=== PATIENT | male | born 1960 | race Caucasian/White ===

== ENCOUNTER → 2016-05-19 | Outpatient (CLI) | payer OTHER ==
[~2016-05-19] MED LIST: ACET-1311 PO; ACET325T96 PO; ADVIN25/60 INH; ASCA500 PO; ASCO500C43; ASPI81TA28 PO; BENZ100C84 PO; BISA-16 PR; CALC-191; CALC667C PO; CEFT2INJ IV; CHOL1000 PO; CHOL1TAB46 PO; CLR10 PO; DEXA2TAB PO; DOCU100C31 PO; DOXY100C76 PO; ERTA1INJ IV; FERR1TAB13 PO; GABA-112 PO; GABA-113 PO; GFNSR600 PO; INSDGI SC; IPRA1AER2 INH; LCTX PO; LIQUID PROTEIN PO; LORA-741 PO; LPT40 PO; METO25TA3 PO; MOMLX PO; MRLP17X PO; MULT-506 PO; NTRS PO; NVLG SC; NVLGI SC; OXGN; OXYC-164 PO; OXYC-787 PO; OXYC15TA89 PO; OXYC1TAB3 PO; OXYC40TA34 PO; OXYSR10 PO; POLY335019 PO; PRAV10TA39 PO; PRLSR20 PO; PROTEIN SUPPLEMENT PO; SENN-65 PO; SERT50TA PO; SNTO30 EXT; SNTONWC TOP; SODI1ENE PR; SODI1ENE RE; TAMS0.4C38 PO; VANC1INJ9 IV; [UNRECOGNIZED DRUG - CODE] PO; [UNRECOGNIZED DRUG - REMARK] PO; dulcolax suppository; liquid protein PO
[2016-05-19 13:40] LABS: MANUAL MICROSCOPIC REQUIRED? YES; URINE APPEARANCE CLOUDY (CLEAR); URINE COLOR BROWN; URINE NITRITE POS (NEG); URINE PH >= 9.0 (4.5-7.5); URINE SPECIFIC GRAVITY <= 1.005 (1.000-1.030); UROBILINOGEN NEG (NEG)
[2016-05-19 13:42] LABS: REVIEW REQ? NO
[2016-05-19 13:43] LABS: SULFASALICYLIC ACID POS (NEG); URINE BILIRUBIN NEG (NEG)
[2016-05-19 14:01] LABS: URINE BACTERIA 4+ (NEG); URINE WBC >30 /hpf (0-5)
[2016-05-19 14:02] LABS: ZZUR CULT IF INDIC CLEAN CATCH YES
== END ==
LOC: C.LABUPNIT 09:12
PROVIDERS: ATTEND Family Medicine
DX: N18.6 End stage renal disease (principal)

== ENCOUNTER → 2016-05-21 | Outpatient (CLI) | payer OTHER ==
[~2016-05-21] MED LIST changes: +[UNRECOGNIZED DRUG - CODE] PO; -[UNRECOGNIZED DRUG - CODE] PO
[2016-05-21 09:58] LABS: MANUAL MICROSCOPIC REQUIRED? YES; URINE APPEARANCE CLOUDY (CLEAR); URINE COLOR AMBER; URINE NITRITE POS (NEG); URINE PH 8.5 (4.5-7.5); UROBILINOGEN NEG (NEG)
[2016-05-21 10:05] LABS: REVIEW REQ? NO; SULFASALICYLIC ACID POS (NEG); URINE BILIRUBIN NEG (NEG)
[2016-05-21 10:56] LABS: URINE BACTERIA 4+ (NEG); URINE RBC >30 /hpf (0-4); URINE WBC >30 /hpf (0-5)
[2016-05-21 10:57] LABS: URINE GRANULAR CAST 0-3 /lpf (0); URINE HYALINE CAST 0 /lpf (0-5)
--- NOTE | 2016-05-31 09:33 | CODING QUERY NO DIAGNOSIS ---
: 1960 TREATMENT RENDERED WITHOUT A DIAGNOSIS To promote full compliance with coding requirements relating to patient care, physician participation is requested in all cases of spinner frame uncertainty. Please assist us with providing a diagnosis/symptom for the test(s) below: A diagnosis/symptom was not documented on your Order. A valid diagnosis/symptom is required to bill all insurances. Please remember that we are unable to code a diagnosis of rule out, probable, possible, questionable, or suspected. Tests that require a diagnosis: * UA CATH DOS: 05/21/16 DIAGNOSIS: * URINE CULTURE CATH DOS: 05/21/16 DIAGNOSIS: Provider Signature: Date: Thank you Kalyani Chi [facility] Information Management Once completed, please kindly fax back to [phone] For questions please call [phone]
== END | disposition home or self-care (01) ==
LOC: C.LABUPNIT 09:02
PROVIDERS: ATTEND Family Medicine
DX: G93.40 Encephalopathy, unspecified (principal)

== ENCOUNTER → 2016-05-23 | Outpatient (CLI) | payer OTHER ==
[~2016-05-23] MED LIST changes: +[UNRECOGNIZED DRUG - CODE] PO; -[UNRECOGNIZED DRUG - CODE] PO
[2016-05-23 10:23] LABS: BASO % 0.1 %; BASO ABS # 0.01 K/uL (0-0.2); COMPLETE YES; EOS % 0.3 %; HEMATOCRIT 35.4 % (42-52); IG% 0.6 %; LYMPH % 5.3 %; LYMPH ABS # 0.76 K/uL (1.2-3.4); MEAN CELL VOLUME 88.7 fL (80-100); MEAN CORPUSCULAR HEMOGLOBIN 29.1 pg (25-34); MEAN CORPUSCULAR HGB CONC 32.8 g/dl (32-36); MEAN PLATELET VOLUME 10.8 fL (7.4-10.4); MONO % 7.1 %; NEUT % 86.6 %; PLATELET COUNT 171 K/uL (130-400); RED BLOOD COUNT 3.99 M/uL (4.7-6.1); WHITE BLOOD COUNT 14.28 K/uL (4.8-10.8)
[2016-05-23 22:22] LABS: BLOOD UREA NITROGEN 48 mg/dl (7-18); BUN/CREATININE RATIO 14.1 (10-20); CALCIUM 8.9 mg/dl (8.5-10.1); CHLORIDE 96 mmol/L (98-107); GLUCOSE 79 mg/dl (70-99); POTASSIUM 4.5 mmol/L (3.5-5.1); SODIUM 135 mmol/L (136-145)
== END ==
LOC: C.LABUPNIT 09:36
PROVIDERS: ATTEND Family Medicine
DX: E11.22 Type 2 diabetes mellitus with diabetic chronic kidney disease (principal); N18.6 End stage renal disease

== ENCOUNTER → 2016-05-24 | Outpatient (CLI) | payer OTHER ==
[~2016-05-24] MED LIST changes: +[UNRECOGNIZED DRUG - CODE] PO; -[UNRECOGNIZED DRUG - CODE] PO
[2016-05-24 10:06] LABS: BASO % 0.1 %; BASO ABS # 0.01 K/uL (0-0.2); COMPLETE YES; EOS % 0.3 %; HEMATOCRIT 34.3 % (42-52); IG% 0.8 %; LYMPH % 5.4 %; LYMPH ABS # 0.84 K/uL (1.2-3.4); MEAN CELL VOLUME 88.2 fL (80-100); MEAN CORPUSCULAR HEMOGLOBIN 29.3 pg (25-34); MEAN CORPUSCULAR HGB CONC 33.2 g/dl (32-36); MEAN PLATELET VOLUME 10.2 fL (7.4-10.4); MONO % 5.9 %; NEUT % 87.5 %; PLATELET COUNT 185 K/uL (130-400); RED BLOOD COUNT 3.89 M/uL (4.7-6.1); WHITE BLOOD COUNT 15.46 K/uL (4.8-10.8)
[2016-05-24 10:17] LABS: BLOOD UREA NITROGEN 71 mg/dl (7-18); BUN/CREATININE RATIO 16.2 (10-20); CALCIUM 9.1 mg/dl (8.5-10.1); CARBON DIOXIDE 24 mmol/L (21-32); CHLORIDE 96 mmol/L (98-107); GLUCOSE 220 mg/dl (70-99); POTASSIUM 4.4 mmol/L (3.5-5.1); SODIUM 132 mmol/L (136-145)
[2016-05-24 10:21] LABS: C-REACTIVE PROTEIN 6.67 mg/dl (0-0.29)
--- NOTE | 2016-05-31 13:44 | CODING QUERY NO DIAGNOSIS ---
: 1960 TREATMENT RENDERED WITHOUT A DIAGNOSIS To promote full compliance with coding requirements relating to patient care, physician participation is requested in all cases of floor coverings installer uncertainty. Please assist us with providing a diagnosis/symptom for the test(s) below: A diagnosis/symptom was not documented on your Order. A valid diagnosis/symptom is required to bill all insurances. Please remember that we are unable to code a diagnosis of rule out, probable, possible, questionable, or suspected. Tests that require a diagnosis: * C-REACTIVE PROTEIN DOS: 05/24/16 DIAGNOSIS: * PARTIAL RENAL PROFILE DOS: 05/24/16 DIAGNOSIS: * CBC WITH AUTO DIFFER DOS: 05/24/16 DIAGNOSIS: * AMMONIA LEVEL DOS: 05/24/16 DIAGNOSIS: * LACTIC ACID DOS: 05/24/16 DIAGNOSIS: * ERYTHROCYTE SEDIMENT DOS: 05/24/16 DIAGNOSIS: Provider Signature: Date: Thank you Kalyani Chi [employer] Information Management Once completed, please kindly fax back to [phone] For questions please call [phone]
== END ==
LOC: C.LABUPNIT 09:48
PROVIDERS: ATTEND Family Medicine
DX: G93.40 Encephalopathy, unspecified (principal); L98.499 Non-pressure chronic ulcer of skin of other sites with unspecified severity

== ENCOUNTER → 2016-05-27 | Outpatient (CLI) | payer OTHER ==
[2016-05-27 10:08] LABS: MEAN CELL VOLUME 88.3 fL (80-100); MEAN CORPUSCULAR HEMOGLOBIN 28.6 pg (25-34); MEAN CORPUSCULAR HGB CONC 32.4 g/dl (32-36); MEAN PLATELET VOLUME 9.8 fL (7.4-10.4); PLATELET COUNT 242 K/uL (130-400); RED BLOOD COUNT 3.85 M/uL (4.7-6.1); WHITE BLOOD COUNT 11.08 K/uL (4.8-10.8)
--- NOTE | 2016-07-29 07:37 | CODING QUERY MEDICAL NECESSITY ---
SUPPORTING DIAGNOSIS NEEDED A supporting diagnosis is required for the test/procedure performed on this patient in order for us to be reimbursed by the patient's insurance. Please provide a supporting diagnosis for the following test/procedure listed below next to the test name along with your signature. *If there is no additional diagnosis for this patient that would support the following test/procedure please document that below next to the test/procedure. Test(s)/Procedure(s) that require a supporting diagnosis: * C- REACTIVE PROTEIN DIAGNOSIS: * DOS: 05/27/16 Provider Signature: Date: Thank you Lakeisha Lockett Health Information Management Once completed, please kindly fax back to [phone] For questions please call [phone]
== END | disposition home or self-care (01) ==
LOC: C.LABUPNIT 09:21
PROVIDERS: ATTEND Family Medicine
DX: I25.10 Atherosclerotic heart disease of native coronary artery without angina pectoris (principal)

== ENCOUNTER → 2016-06-04 | Outpatient (CLI) | payer OTHER ==
--- NOTE | 2016-06-04 15:33 | DIAGNOSTIC IMAGING REPORT ---
RIGHT LOWER EXTREMITY ARTERIAL DOPPLER CLINICAL HISTORY: Right leg nonhealing wound. COMPARISON STUDY: Right lower extremity arterial Doppler June 12, 2015. FINDINGS: Ankle to brachial indices could not be obtained due to significant vessel calcification. Extensive atherosclerotic calcification of the vessels is noted. There is monophasic flow within the right common femoral artery. Note is again made of occlusion of the right superficial femoral and popliteal arteries. Note is made of a patent right femoral to tibial bypass graft. There is monophasic and biphasic flow within the right peroneal, posterior tibial, anterior tibial and dorsalis pedis vessels. IMPRESSION: 1. Patent right femoral to tibial bypass graft. Monophasic and biphasic flow distal to the graft insertion site. 2. Redemonstration of occlusion of the [place] right superficial femoral and popliteal arteries. 3. Extensive atherosclerotic plaque within the right lower extremity. Electronically signed by: Garry Lyman M.D. 06/04/2016 3:31 PM Dictated Date/Time: 06/04/2016 3:26 PM
== END | disposition home or self-care (01) ==
LOC: C.ULTR 13:07
PROVIDERS: ATTEND Emergency Medicine
DX: I73.9 Peripheral vascular disease, unspecified (principal)

== ENCOUNTER → 2016-06-04 | Outpatient (CLI) | payer OTHER ==
--- NOTE | 2016-06-04 14:07 | DIAGNOSTIC IMAGING REPORT ---
CT right knee no contrast CT DOSE: 429.47 mGy.cm CLINICAL HISTORY: Right knee osteomyelitis TECHNIQUE: Helical images were acquired in the transverse plane. No intravenous contrast was administered. Sagittal and coronal reformatted images were acquired. COMPARISON STUDY: None. FINDINGS: There are vascular calcifications present. The bones are osteopenic. No acute fractures are visualized. There are no fluid collections to indicate an abscess. There is no evidence of significant joint effusion. There are no destructive lesions to indicate acute osteomyelitis. There is a partially visualized vascular stents IMPRESSION: 1. No CT evidence of acute osteomyelitis 2. No fractures identified 3. No evidence for soft tissue abscess 4. No evidence of a significant joint effusion 5. Osteopenia Electronically signed by: Rajendra Gomez M.D. 06/04/2016 2:06 PM Dictated Date/Time: 06/04/2016 2:01 PM
== END ==
LOC: C.CTS 13:01
PROVIDERS: ATTEND Family Medicine
DX: M86.9 Osteomyelitis, unspecified (principal); M85.80 Other specified disorders of bone density and structure, unspecified site

== ENCOUNTER → 2016-06-19 | Outpatient (CLI) | payer OTHER ==
[~2016-06-19] MED LIST changes: -DOCU100C31 PO; -MULT-506 PO; -NTRS PO; -OXYSR10 PO; -PRAV10TA39 PO; -PROTEIN SUPPLEMENT PO; -TAMS0.4C38 PO
[2016-06-19 08:36] LABS: BASO % 0.2 %; BASO ABS # 0.02 K/uL (0-0.2); COMPLETE YES; HEMATOCRIT 34.2 % (42-52); IG% 1.6 %; LYMPH % 11.1 %; LYMPH ABS # 1.23 K/uL (1.2-3.4); MEAN CELL VOLUME 88.4 fL (80-100); MEAN CORPUSCULAR HEMOGLOBIN 28.2 pg (25-34); MEAN CORPUSCULAR HGB CONC 31.9 g/dl (32-36); MEAN PLATELET VOLUME 9.7 fL (7.4-10.4); MONO % 10.2 %; NEUT % 75.9 %; PLATELET COUNT 223 K/uL (130-400); RED BLOOD COUNT 3.87 M/uL (4.7-6.1); WHITE BLOOD COUNT 11.11 K/uL (4.8-10.8)
[2016-06-19 08:46] LABS: PROTHROMBIN TIME (PATIENT) 10.2 SECONDS (9.0-12.0)
== END ==
LOC: C.LABUPNIT 08:21
PROVIDERS: ATTEND Family Medicine
DX: R21 Rash and other nonspecific skin eruption (principal)

== ENCOUNTER → 2016-07-01 | Outpatient (CLI) | payer OTHER ==
[~2016-07-01] MED LIST changes: -ERTA1INJ IV
== END | disposition home or self-care (01) ==
LOC: C.LABUPNIT 09:30
PROVIDERS: ATTEND Family Medicine
DX: M86.9 Osteomyelitis, unspecified (principal)

== ENCOUNTER → 2016-07-08 | Outpatient (CLI) | payer OTHER ==
[~2016-07-08] MED LIST changes: -DOXY100C76 PO
== END ==
LOC: C.LABUPNIT 10:13
PROVIDERS: ATTEND Family Medicine
DX: Z79.01 Long term (current) use of anticoagulants (principal); Z51.81 Encounter for therapeutic drug level monitoring

== ENCOUNTER 2016-07-15 00:25 | Inpatient (IN) | payer OTHER ==
[~2016-07-15] VITALS: Ht 152.4 cm; Wt 78.5 kg
[2016-07-15] VITALS (24 sets, daily range): BP systolic 73–130; BP diastolic 51–94; PULSE 49–95; TEMP 36.5–37; O2SAT 94–99; Ht 152.4 cm; Wt 78.5 kg
[~2016-07-15 00:25] MED LIST changes: -ACET325T96 PO; -ASCA500 PO; -ASCO500C43; -BISA-16 PR; -CALC-191; -CHOL1TAB46 PO; -GABA-113 PO; -IPRA1AER2 INH; -LIQUID PROTEIN PO; -LPT40 PO; -MOMLX PO; -MRLP17X PO; -NVLG SC; -OXGN; -OXYC-164 PO; -OXYC-787 PO; -OXYC40TA34 PO; -SERT50TA PO; -SNTO30 EXT; -SNTONWC TOP; -SODI1ENE PR; -[UNRECOGNIZED DRUG - CODE] PO; -liquid protein PO
[2016-07-15 01:39] LABS: BASO % 0.1 %; BASO ABS # 0.01 K/uL (0-0.2); COMPLETE YES; EOS % 0.1 %; HEMATOCRIT 37.6 % (42-52); IG% 0.4 %; LYMPH % 4.2 %; LYMPH ABS # 0.43 K/uL (1.2-3.4); MEAN CELL VOLUME 87.9 fL (80-100); MEAN CORPUSCULAR HEMOGLOBIN 29.7 pg (25-34); MEAN CORPUSCULAR HGB CONC 33.8 g/dl (32-36); MEAN PLATELET VOLUME 10.2 fL (7.4-10.4); MONO % 7.6 %; NEUT % 87.6 %; PLATELET COUNT 110 K/uL (130-400); RED BLOOD COUNT 4.28 M/uL (4.7-6.1); WHITE BLOOD COUNT 10.15 K/uL (4.8-10.8)
[2016-07-15 01:49] LABS: PARTIAL THROMBOPLASTIN RATIO 1.1; PROTHROMBIN TIME (PATIENT) 10.5 SECONDS (9.0-12.0)
[2016-07-15 02:24] LABS: ALB/GLOB RATIO 0.8 (0.9-2); BUN/CREATININE RATIO 13.5 (10-20); CALCIUM 8.8 mg/dl (8.5-10.1); CKMB/CK RATIO 14.4 (0-3.0); CREATININE 6.6 mg/dl (0.60-1.40); MAGNESIUM 2.3 mg/dl (1.8-2.4); POTASSIUM 6.4 mmol/L (3.5-5.1)
[2016-07-15] MEDS ORDERED: DEXTROSE 50% 50 ML SYR IV STA (02:37)
[2016-07-15] MEDS ORDERED: NovoLIN-R INSULIN PER UNIT CHARGE IV STA (02:37)
--- NOTE | 2016-07-15 03:13 | EMERGENCY ROOM VISIT NOTE ---
ED Visit Note First contact with patient: 00:57 I saw this patient in conjunction with Eliseo Pollock PA-C. I agree with his decision making and treatment plan.
[2016-07-15] MEDS ORDERED: DEXA2TAB PO (03:29)
[2016-07-15] MEDS ORDERED: CHOL1TAB46 PO (03:38)
[2016-07-15] MEDS ORDERED: ASCA500 PO (03:44)
[2016-07-15] MEDS ORDERED: ASCO500C43 (03:44)
[2016-07-15] MEDS ORDERED: ALBUT/IPRATROP 3MG/0.5MG NEB 3 ML VIAL INH STA (03:47)
[2016-07-15] MEDS ORDERED: ACET325T96 PO (03:51)
[2016-07-15] MEDS ORDERED: OXGN (03:52)
[2016-07-15] MEDS ORDERED: CALC-191 (03:55)
[2016-07-15] MEDS ORDERED: SNTONWC TOP (03:57)
[2016-07-15] MEDS ORDERED: OPTIRAY 320 IV PRN (05:15)
[2016-07-15 05:30] LABS: VEN BLD GAS O2 SATURATION 64.1 %; VEN BLOOD GAS BASE EXCESS -7.2 mmol/L
--- NOTE | 2016-07-15 06:36 | History and Physical ---
History & Physical Date & Time of Service: Jul 15, 2016 at 06:11 Chief Complaint: Breathing Difficulty Primary Care Physician: Brandyn Queen M.D. History of Present Illness Source: patient 56 yoM with MMPs including ICM s/p ICD placement, ESRD on HD presents with acute worsening of shortness of breath. He states that he uses oxygen "as needed to give me a boost" and states this was ordered for him several years ago , however, he has needed it more often this week and continuously today. He denies cough, fevers, or chills but has a wet cough during my exam a couple of times. He denies any known lung disease and is a prior smoker with a 15 pack year history who quit smoking in 1999. ROS reveals no chest pain, weight gain ( but he isn't sure what his weight is), fevers, chills, nausea, vomiting, diarrhea, blood per rectum, urinary tract symptoms or worsening of pain. He does have a knee wound that is chronic and is seen in the wound clinic regularly for care. He reports a recent debridement without increased worsening of pain or drainage. He denies palpitations or ICD firing. He reports that he has still been able to roll himself around in his wheelchair this week despite the shortness of breath, but otherwise, he is wheelchair- bound. He has a complicated medical history with an admission September 2015 for severe sepsis 2/2 bilateral LE cellulitis requiring a L above the knee amputation. He reports that he is awaiting a prosthesis, and he currently in a resident at [facility]. He was then admitted for sepsis 2/2 a staph aureus infection of his Perm cath. Then in November 2015, he was admitted to [facility] in [place] with back pain, and was found to have osteomyelitis and discitis in his spine at T12-L2 levels. He was deemed non-operable because of his risk from chronic comorbidities and underwent IV abx therapy, and nursing home doxy for chronic suppression of bacteremia. Past Medical/Surgical History Medical Problems: (1) Anemia Status: Chronic (2) Cardiomyopathy Status: Chronic (3) CHF (congestive heart failure) Permanent Comment: EF 20% Status: Chronic (4) CKD (chronic kidney disease), stage V Status: Chronic (5) Coronary artery disease Status: Chronic (6) DM type 2 (diabetes mellitus, type 2) Status: Chronic (7) HTN (hypertension) Status: Chronic (8) Hyperlipidemia Status: Chronic (9) Obesity Status: Chronic (10) PAD (peripheral artery disease) Status: Chronic (11) BPH Surgical Problems: (1) ICD (implantable cardioverter-defibrillator), single, in situ Permanent Comment: 10/31 Status: Chronic (2) S/P femoral-popliteal bypass surgery Permanent Comment: Right 05/20-, with angioplast 08/30, with stent 06/02 Status: Chronic (3) Toe amputation status Permanent Comment: Right 4 toe Status: Chronic Family History Coronary artery disease MOTHER FH: atrial fibrillation FATHER FH: cancer FATHER Hypertension SISTER Valvular heart disease FATHER Social History Smoking Status: Former Smoker (15 pack yr history, quit 1999) Smokeless Tobacco Use: No Alcohol Use: none Drug Use: none Marital Status: single Housing status: assisted living Occupational Status: disabled Immunizations History of Influenza Vaccine: Yes Influenza Vaccine Date: Jun 17, 2014 History of Tetanus Vaccine?: Yes Tetanus Immunization Date: Jun 18, 2013 History of Pneumococcal: Yes Pneumococcal Date: Nov 18, 2001 History of Hepatitis B Vaccine: Yes Hepatitis Immunization Date: Dec 15, 2013 Multi-Drug Resistant Organisms History of MDRO: Yes Type of MDRO: MRSA Allergies Coded Allergies: Daptomycin (Verified Allergy, Severe, WATER ON LUNGS, 07/15/16) pt stated this allergy is "lethal" for him POLLEN (Verified Allergy, Unknown, 07/15/16) Ciprofloxacin (Verified Adverse Reaction, Intermediate, NAUSEA AND DIARHHEA, 07/15/16) Home Medications Scheduled Ascorbic Acid (Vitamin C), 500 MG PO 3XWK Aspirin (Aspirin Ec), 81 MG PO DAILY Calcium Acetate (Phosphate Bin (Phoslo 667 Mg), 2 CAPSULES PO WM Calcium Alginate (Bulk) (Calcium Alginate), 1 APPLN DAILY AND PRN Cholecalciferol (Vitamin D3), 5,000 UNIT PO DAILY Collagenase (Santyl), 1 APPLN TOP Q EVENING SHIFT Dexamethasone (Dexamethasone), 2 MG PO DAILY Ferrous Sulfate (Kp Ferrous Sulfate), 1 TAB PO DAILY Fluticasone Prop/Salmeterol (Advair Diskus 250/50 60 Dose), 1 PUFFS INH BID Gabapentin (Neurontin), 200 MG PO Q8 Insulin Aspart (Novolog), SC ACHS Insulin Glargine (Lantus), 5 UNITS SC AMPM Lactobacillus Acidophilus (Lactinex), 1 TAB PO TID Loratadine (Claritin), 10 MG PO DAILY Lorazepam (Ativan), 0.5 MG PO TID Metoprolol Succ (Toprol Xl) (Toprol-Xl), 25 MG PO DAILY Omeprazole (Prilosec), 20 MG PO DAILY Oxycodone Hcl (Oxycontin), 30 MG PO Q8 Polyethylene Glycol 3350 (Miralax), 17 GM PO DAILY Senna/Docusate Sod (Senokot S), 1 TAB PO DAILY Vancomycin Hcl In Dextrose (Vancomycin Hcl In Dextros), 1 GM IV 3XWK Scheduled PRN Acetaminophen Tab (Tylenol), 650 MG PO Q6 PRN for PAIN RATED 1-5 Oxycodone Ir (Roxicodone Ir), 10 MG PO Q1H PRN for Severe Pain Oxygen (Oxygen), 3 LITERS NA PRN PRN for Shortness of Breath Review of Systems All systems were reviewed and negative except as indicated in HPI Physical Exam Vital Signs Date Time Temp Pulse Resp B/P Pulse Ox O2 Delivery O2 Flow Rate FiO2 07/15/16 05:22 85 18 103/84 98 Nasal Cannula 4.0 07/15/16 04:15 88 07/15/16 03:10 07/15/16 02:51 92 18 141/100 93 Room Air 07/15/16 02:01 96/59 07/15/16 02:00 86 13 95 07/15/16 01:43 93 20 94/73 94 Nasal Cannula 2.0 07/15/16 00:36 103 07/15/16 00:35 96 Room Air 07/15/16 00:29 89 Room Air 07/15/16 00:29 37.1 103 20 110/80 94 Nasal Cannula 2.0 GEN: WNWD, in no acute distress, alert and appropriate, oxygen in place via NC, no conversational dyspnea. HEENT: NC/AT, PERRL, normal sclerae, pharynx non-acute, MMM CARDIO: reg rate, S1/2 heard without m/g/r, +JVD LUNGS: coarse breath sounds bilaterally with wheezing in lower lung [place]. ABD: soft, non-tender, non-distended, no rebound or guarding EXTREMITY: s/p L AKA with well-healed stump, RLE is warm and well perfused. 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 Knee wrapped with Kerlex and there are Stage II wounds with good granulation tissue and no surrounding areas of erythema present. NEURO: CN 2-12 grossly intact, sensation intact throughout MUSC: cannot sit up on his own, appears deconditioned, no gross focal deficits. SKIN: warm and dry and wound as above. Diagnostics Laboratory Results Results Past 24 Hours Test 07/15/16 01:24 07/15/16 01:27 07/15/16 01:32 07/15/16 01:35 Range/Units White Blood Count 10.15 4.8-10.8 K/uL Red Blood Count 4.28 4.7-6.1 M/uL Hemoglobin 12.7 14.0-18.0 g/dL Hematocrit 37.6 42-52 % Mean Corpuscular Volume 87.9 80-100 fL Mean Corpuscular Hemoglobin 29.7 25-34 pg Mean Corpuscular Hemoglobin Concent 33.8 32-36 g/dl Platelet Count 110 130-400 K/uL Mean Platelet Volume 10.2 7.4-10.4 fL Neutrophils (%) (Auto) 87.6 % Lymphocytes (%) (Auto) 4.2 % Monocytes (%) (Auto) 7.6 % Eosinophils (%) (Auto) 0.1 % Basophils (%) (Auto) 0.1 % Neutrophils # (Auto) 8.89 1.4-6.5 K/uL Lymphocytes # (Auto) 0.43 1.2-3.4 K/uL Monocytes # (Auto) 0.77 0.11-0.59 K/uL Eosinophils # (Auto) 0.01 0-0.5 K/uL Basophils # (Auto) 0.01 0-0.2 K/uL RDW Standard Deviation 50.9 36.4-46.3 fL RDW Coefficient of Variation 15.7 11.5-14.5 % Immature Granulocyte % (Auto) 0.4 % Immature Granulocyte # (Auto) 0.04 0.00-0.02 K/uL Prothrombin Time 10.5 9.0-12.0 SECONDS Prothromb Time International Ratio 1.0 0.9-1.1 Activated Partial Thromboplast Time 28.4 21.0-31.0 SECONDS Partial Thromboplastin Ratio 1.1 Sodium Level 134 136-145 mmol/L Potassium Level 6.4 3.5-5.1 mmol/L Chloride Level 100 98-107 mmol/L Carbon Dioxide Level 20 21-32 mmol/L Anion Gap 14.0 3-11 mmol/L Blood Urea Nitrogen 91 7-18 mg/dl Creatinine 6.60 0.60-1.40 mg/dl Est Creatinine Clear Calc Drug Dose 11.8 ml/min Estimated GFR () 9.8 Estimated GFR (Non- 8.5 BUN/Creatinine Ratio 13.5 10-20 Random Glucose 123 70-99 mg/dl Calcium Level 8.8 8.5-10.1 mg/dl Magnesium Level 2.3 1.8-2.4 mg/dl Total Bilirubin 0.4 0.2-1 mg/dl Aspartate Amino Transf (AST/SGOT) 24 15-37 U/L Alanine Aminotransferase (ALT/SGPT) 35 12-78 U/L Alkaline Phosphatase 85 45-117 U/L Total Creatine Kinase 50 39-308 U/L Creatine Kinase MB 7.2 0.5-3.6 ng/ml Creatine Kinase MB Ratio 14.4 0-3.0 Total Protein 7.0 6.4-8.2 gm/dl Albumin 3.2 3.4-5.0 gm/dl Globulin 3.8 2.5-4.0 gm/dl Albumin/Globulin Ratio 0.8 0.9-2 Lipase 42 73-393 U/L Bedside Lactic Acid Venous 0.79 0.90-1.70 mmol/L Bedside Troponin I 0.110 0-0.045 ng/ml Influenza Type A Antigen Neg for Influ A NEG Influenza Type B Antigen Neg for Influ B NEG Test 07/15/16 02:50 07/15/16 04:44 07/15/16 04:48 07/15/16 05:17 Range/Units Bedside Glucose 110 70-99 mg/dl Potassium Level 5.9 3.5-5.1 mmol/L Bedside Troponin I 2.460 0-0.045 ng/ml Venous Blood pH 7.23 7.36-7.41 Venous Blood Partial Pressure CO2 51 38.0-50.0 mmHg Venous Blood Partial Pressure O2 38 mmHg Venous Blood HCO3 20 mmol/L Venous Blood Oxygen Saturation 64.1 % Venous Blood Base Excess -7.2 mmol/L Microbiology Results 07/15/16 Blood Culture, Received Pending 07/15/16 Blood Culture, Received Pending Diagnostic Radiology CXR-cephalization, rotation of film, no obvious infiltrates but appears volume overloaded. (prelim reading) Final readin. Cardiomegaly and AICD. There is no radiographic evidence of congestive failure. 2. There is no airspace consolidation typical for pneumonia or large pleural effusion. CT head-no ICH, mass effect or edema, no acute stroke CTA-no PE, chronic diskitis at T12-L1, RLL perivacular bronchial thickening and linear opacities-scarring vs atypical pneumonia. No pleural effusion or PTX. EKG SR 85, ST depressions in V4 with TWI in V5/6 Impression Assessment and Plan 56 yoM with MMPs presents with acute hypoxia 1. Hypoxia/SOB-multiple possible etiologies by themselves or in combination may be contributing. He has an atypical pneumonia on CT scan and a cough. He does not meet sepsis criteria technically, however, with h/o sepsis causing significant issues for him in the recent past will cover with Vanc and Zosyn empirically, and these were started in the ER, blood cultures are pending. He also has a chronic RLE knee wound which may be a source of infection, however, with lower lung field wheezing on exam and cough I suspect pneumonia as the main culprit of his hypoxia. He also has a h/o chronic osteomyelitis of the lower spine which has been managed with abx only and is still present on CT imaging today. Another contributing factor here may also be CHF. He appears volume overloaded on exam with JVD and coarse breath sounds. There is cephalization of vessels on CXR. (Of note, final reading did not note CHF) This is in a setting of poor EF, some EKG changes (chronic) and an increase in troponin. 2. Hypertroponemia-trend serial enzymes. This is in the setting of a patient who may have an infection, on HD with a known cardiomyopathy. Will consult Cardiology for assistance. 3. ICM s/p ICD --no firing of ICD, will interrogate ICD, last TTE on file was October 2015 [facility] EF 15-20%, mod MR and mod TR. Repeat TTE was ordered. Medically managed with Toprol XL and ASA. 4. ESRD-MWF HD. Nephro consulted and is aware of the patient and his critical potassium 5. Hyperkalemia- K 6.4 in the ER. Temporizing measures given including insulin and glucose only. No peaked T waves on EKG. Likely plan for HD today. Will give 1 amp calcium gluconate to help stabilize cardiac membrane until he is able to be dialyzed. 6. Thrombocytopenia-decreased from baseline poss 2/2 infection. Trend and hold DVT prophy if <100K 7. RLE wound-chronic, granulation tissue present. Contacted wound care nurse . On empiric broad spectrum abx at this time, however, doesn't appear acutely infected. 8. Chronic diskitis/osteomyelitis in lower back area-diagnosed November 2016. Pt was deemed not a good surgical candidate and this has been managed with long- term doxycycline. Per Dr. Monk's note in Jan 2016, he should be on doxy indefinitely, however, his medications were recently adjusted. He was placed on Vancomycin starting 06/21/16 to be given TIW with HD sessions which are MWF. He was also started on IM Rocephin as he was difficult to get IV access on, and this was given 2/3 until 06/28, when it was discontinued. He takes decadron 2mg PO daily. All meds were verified with [facility]. Will consult ID for assistance with management as he is well known to them. 9. Severe PAD-cont ASA 10. s/p 4th toe amputation 11. DMII-ISS/Lantus ordered; inpatient glycemic pharmacy consult was placed. DVT proph-heparin Full Code Dispo-to tele floor Liz Hussein DO Hospitalist Level of Care Telemetry Resuscitation Status FULL RESUSCITATION VTE Prophylaxis VTE Risk Assessment Done? Y/N: Yes Risk Level: Moderate Given or contraindicated: Unfractionated heparin SQ Social Service Consult [facility]
[2016-07-15] MEDS ORDERED: GLUCOSE 10 TABS/TUBE PO PRN (06:45)
[2016-07-15] MEDS ORDERED: GLUCOSE 40% GEL 15 GM TUBE PO PRN (06:45)
[2016-07-15] MEDS ORDERED: POLYETHYLENE (MIRALAX) 17 GM PACK PO PRN (06:45)
[2016-07-15] MEDS ORDERED: ONDANSETRON INJ 2 MG/ML 2 ML VIAL IV PRN (06:45)
[2016-07-15] MEDS ORDERED: DEXTROSE 50% 50 ML SYR IV PRN (06:45)
[2016-07-15] MEDS ORDERED: VANCOMYCIN INJ 1,000 MG in SODIUM CHLORIDE 0.9% 250ML 250 ML IV SCH ×2 (06:45→09:30)
[2016-07-15] MEDS ORDERED: GLUCAGON FOR INJ 1 MG VIAL SQ PRN (06:45)
[2016-07-15] MEDS ORDERED: ASPIRIN 81 MG CHEW PO STA (07:06)
[2016-07-15] MEDS ORDERED: PHARMACY GLYCEMIC MGMT CONSULT PRN (07:06)
--- NOTE | 2016-07-15 07:11 | DIAGNOSTIC IMAGING REPORT ---
CT SCAN OF THE BRAIN WITHOUT IV CONTRAST CLINICAL HISTORY: Change in mental status. COMPARISON STUDY: CT of the brain dated 11/28/2015. TECHNIQUE: Unenhanced axial CT scan of the brain is performed from the vertex to the skull base. The skull base was scanned twice due to motion artifact. CT DOSE: 921.40 mGy.cm FINDINGS: Brain parenchyma: There are age-advanced involutional changes noting moderate confluent subcortical and periventricular microangiopathic change. There is no hemorrhage, mass effect, or evidence of acute territorial ischemia by CT criteria. Elliott-white matter is preserved. No extra-axial fluid collection is seen. Ventricles, sulci, cisterns: Prominent secondary to involutional change. Intracranial vasculature: There is atherosclerotic calcification of the cavernous carotid and vertebral arteries. Calvarium: Unremarkable. Sinuses and mastoids: The visualized paranasal sinuses are clear. The mastoid air cells are well pneumatized. Orbits: The bony orbits are grossly intact. Mild proptosis is suggested. IMPRESSION: There is no hemorrhage, mass effect, or evidence of acute territorial ischemia by CT criteria. Electronically signed by: Raheel Bell M.D. 07/15/2016 7:10 AM Dictated Date/Time: 07/15/2016 7:08 AM
[2016-07-15] MEDS ORDERED: PIPERACILL/TAZOBAC CONSULT ACTIVE PRN (07:15)
[2016-07-15] MEDS ORDERED: VANCOMYCIN CONSULT ACTIVE PRN (07:15)
[2016-07-15] MEDS ORDERED: PIPERACILLIN/TAZOBACTAM 4.5 GM/100ML D5W IV STA (07:16)
--- NOTE | 2016-07-15 07:21 | DIAGNOSTIC IMAGING REPORT ---
CHEST CTA for PULMONARY ARTERIES CT DOSE: 749.47 mGy.cm HISTORY: Chest pain dyspnea TECHNIQUE: Multiaxial CT images of the chest were performed following the intravenous administration of contrast to evaluate the pulmonary arteries. Maximal intensity projection images were also obtained. COMPARISON STUDY: 12/08/2015 FINDINGS: There is a normal caliber thoracic aorta with no evidence for dissection. There is no evidence for pulmonary embolus. No pleural effusions. No pneumothorax. The liver and spleen are unremarkable. No mediastinal or hilar lymphadenopathy. The central airways are patent. The lungs are clear. Deformity T12-L1 with loss of vertebral body height. This running soft tissue density previously described as diminished. This could indicate potential healing of a prior discitis. IMPRESSION: No evidence for pulmonary embolus. Healing discitis T12-L1 Electronically signed by: Stanley Johnson M.D. 07/15/2016 7:20 AM Dictated Date/Time: 07/15/2016 7:13 AM
--- NOTE | 2016-07-15 07:23 | DIAGNOSTIC IMAGING REPORT ---
Venous Doppler right leg RIGHT VENOUS DOPP LOWER EXT UNILAT CLINICAL HISTORY: eval DVT Right pain. Edema. TECHNIQUE: Doppler COMPARISON STUDY: None FINDINGS: Normal study IMPRESSION: Normal study Electronically signed by: Stanley Johnson M.D. 07/15/2016 7:22 AM Dictated Date/Time: 07/15/2016 7:21 AM
--- NOTE | 2016-07-15 07:47 | DIAGNOSTIC IMAGING REPORT ---
SINGLE VIEW CHEST CLINICAL HISTORY: Cough and dyspnea. FINDINGS: An AP, portable, upright chest radiograph is compared to study dated 11/28/2015. The examination is significantly degraded by portable technique and patient rotation. A right internal jugular central venous catheter is unchanged in position. A cardiac AICD partially obscures the left upper chest. The heart is enlarged and there is atherosclerotic calcification of the thoracic aorta. The pulmonary vasculature is noncongested. Chronic elevation of the right hemidiaphragm with right basilar atelectasis persists. Chronic interstitial thickening and nodularity as well as scattered calcified granulomas are similar to previous. There is no airspace consolidation typical for pneumonia or large pleural effusion. No pneumothorax is seen. The skeletal structures are osteopenic. The bony thorax is grossly intact. IMPRESSION: 1. Cardiomegaly and AICD. There is no radiographic evidence of congestive failure. 2. There is no airspace consolidation typical for pneumonia or large pleural effusion. Electronically signed by: Raheel Bell M.D. 07/15/2016 7:46 AM Dictated Date/Time: 07/15/2016 7:44 AM
[2016-07-15] MEDS: HEPARIN SOD (PORCINE) 1000 UNIT/ML 10 ML VIAL IV SCH ×3 (09:00→11:00)
[2016-07-15] MEDS ORDERED: HEPARIN SOD (PORCINE) 1000 UNIT/ML 10 ML VIAL IV SCH (09:00)
[2016-07-15] MEDS: ALBUT/IPRATROP 3MG/0.5MG NEB 3 ML VIAL INH SCH ×4 (09:10→19:29)
[2016-07-15] MEDS ORDERED: CALCIUM GLUCONATE 10% 1,000 MG in SODIUM CHLORIDE 0.9% 50ML 50 ML IV ONE (09:15)
[2016-07-15] MEDS ORDERED: DEXAMETHASONE 1 MG TAB PO ONE (09:22)
[2016-07-15] MEDS ORDERED: POLYETHYLENE (MIRALAX) 17 GM PACK PO ONE (09:22)
[2016-07-15] MEDS: INSULIN ASPART 100 UNITS/ML 3 ML PEN SC SCH ×4 (09:49→20:24)
[2016-07-15] MEDS: ALBUMIN HUMAN 25% 12.5 GM/50 ML VIAL IV SCH ×2 (09:54→11:51)
[2016-07-15 10:06] LABS: HEPATITIS B AB NEG
--- NOTE | 2016-07-15 10:16 | Pharmacy Progress Note ---
Glycemic Control Intl Consult Date of Service Jul 15, 2016. Scope Glycemic Pharmacist consulted by Dr Hussein on 07/15/16 for glycemic control and to write orders per [facility] inpatient glycemic control protocol Objective Weight (Kilograms): 74.700 Accuchecks BSG (last 24hrs): Test 07/15/16 01:24 07/15/16 02:50 07/15/16 08:53 Random Glucose 123 mg/dl (70-99) Bedside Glucose 110 mg/dl (70-99) 102 mg/dl (70-99) Laboratory Data (last 24hrs) Test 07/15/16 01:24 07/15/16 04:44 Anion Gap 14.0 mmol/L BUN/Creatinine Ratio 13.5 Blood Urea Nitrogen 91 mg/dl Creatinine 6.60 mg/dl Potassium Level 6.4 mmol/L 5.9 mmol/L Sodium Level 134 mmol/L White Blood Count 10.15 K/uL Red Blood Count 4.28 M/uL Hemoglobin 12.7 g/dL Hematocrit 37.6 % Mean Corpuscular Volume 87.9 fL Mean Corpuscular Hemoglobin 29.7 pg Mean Corpuscular Hemoglobin Concent 33.8 g/dl Platelet Count 110 K/uL Mean Platelet Volume 10.2 fL Neutrophils (%) (Auto) 87.6 % Lymphocytes (%) (Auto) 4.2 % Monocytes (%) (Auto) 7.6 % Eosinophils (%) (Auto) 0.1 % Basophils (%) (Auto) 0.1 % Neutrophils # (Auto) 8.89 K/uL Lymphocytes # (Auto) 0.43 K/uL Monocytes # (Auto) 0.77 K/uL Eosinophils # (Auto) 0.01 K/uL Basophils # (Auto) 0.01 K/uL Recent Pertinent Medications Outpatient Anti-diabetic Regimen: * Lantus 5 units SQ BID * NovoLog sliding scale * Dexamethasone 2mg PO daily The patient is currently receiving: * Basal insulin: Lantus 7 units every 12 hours * Correctional Insulin: Novolog Correction per scale ACHS Goal Range: Low 100 mg/dL - High 140 mg/dL Correction Factor: 55 mg/dL/unit * Prandial insulin: Per carb ratio of 1 unit per 19 grams CHO consumed Risk Factors for Insulin Resistance: * Steroids: dexamethasone 2mg PO daily (home med) * Infection: vancomycin and piperacillin/tazobactam - day #1 * Diet: T2DM/AHA Risk Factors for Insulin Sensitivity: * ESRD with HD Assessment & Plan ASSESSMENT: * ADA & AACE recommend a goal blood sugar range 140-180 mg/dl for the majority of critically ill & non-critically ill patients. However, more stringent targets may be selected in individual cases. 07/15/16 * Mr. Daniels is a type 2 diabetic who uses basal/bolus insulin as an outpatient - continue this on admission * range dosing for basal insulin as needs often times change with admission * NovoLog with correction factor and carb ratio for both retro- and pro- activity for BSG control * ESRD with HD * A1c not useful in this patient population * insulin sensitivity may change on HD days compared to other days of the week * For inpatient regimen, continue near home basal dosing. NovoLog parameters weight based PLAN FOR INPATIENT GLYCEMIC CONTROL: * Lantus 0-8 units SQ daily * 0 units if BSG is less than 120mg/dL * 5 units if BSG is 120-160mg/dL * 8 units if BSG is greater than 160mg/dL * NovoLog SQ AC and HS * Correction factor: 30mg/dL/unit * Carb ratio: 1 unit per 10g of CHO consumed * Goal range 140-180 mg/dL per ADA recommendations * A1c - not ordered/recorded secondary to ESRD * Please note that the plan above was derived based on current level of insulin resistance and hospital stress. These recommendations are appropriate for inpatient admission only. Plan of care upon discharge will need to be reassessed to avoid potential outpatient hypo/hyperglycemia. Thank you.
[2016-07-15 10:29] LABS: INFLUENZA A PCR Neg for Influ A (NEG); INFLUENZA B PCR Neg for Influ B (NEG)
--- NOTE | 2016-07-15 10:31 | Medical Consult ---
Consultation Date of Consultation: Jul 15, 2016. Attending Physician: Miley Andujar M.D. Reason for Consultation: Chronic osteomyelitis History of Present Illness 56-year-old male well known to me from previous infectious disease consultations and follow-up the [facility] with history of end-stage renal disease on dialysis, as well as severe peripheral vascular disease and diabetes mellitus, status post left AKA, recently being followed for poorly healing wound overlying his right knee area he has been receiving IV vancomycin for previous episode of catheter associated Staph aureus bacteremia, and was also on ceftazidime for Pseudomonas infection of his knee he was admitted to the hospital with 1 day history of progressively worsening shortness of breath. He denies any associated fever or chills. Blood cultures are negative to date. Was noted no worsening in his right heel wound. Has been started empirically on vancomycin and Zosyn. Past Medical/Surgical History Medical Problems: (1) Altered mental status Status: Acute (2) Diabetes mellitus out of control Status: Acute (3) Elevated troponin Status: Acute (4) Elevated troponin Status: Acute (5) End stage renal failure on dialysis Status: Acute (6) Hypocalcemia Status: Acute (7) Hypoglycemia Status: Acute (8) Hypokalemia Status: Acute (9) Hyponatremia Status: Acute (10) Hypotension Status: Acute (11) Hypothermia Status: Acute (12) Mass of spine Status: Acute (13) Opiate overdose Status: Acute (14) Renal failure Status: Acute (15) Renal insufficiency Status: Acute (16) Sepsis Status: Acute (17) Ulcer of toe Status: Acute (18) Ulcers of both lower extremities Status: Acute (19) UTI (urinary tract infection) Status: Acute Medical Problems: (1) Acute on chronic renal failure (2) Anemia (3) Cardiomyopathy (4) CHF (congestive heart failure) (5) CKD (chronic kidney disease), stage III (6) Coronary artery disease (7) DM type 2 (diabetes mellitus, type 2) (8) Fever (9) HTN (hypertension) (10) Hyperlipidemia (11) Hypoxia (12) Obesity (13) PAD (peripheral artery disease) (14) PVD (peripheral vascular disease) (15) Unresponsiveness Surgical Problems: (1) ICD (implantable cardioverter-defibrillator), single, in situ (2) S/P femoral-popliteal bypass surgery (3) Toe amputation status Family History Coronary artery disease MOTHER FH: atrial fibrillation FATHER FH: cancer FATHER Hypertension SISTER Valvular heart disease FATHER Social History Smoking Status: Former Smoker Smokeless Tobacco Use: No Alcohol Use: none Drug Use: none Marital Status: single Housing Status: fdc Occupation Status: disabled Allergies Coded Allergies: Daptomycin (Verified Allergy, Severe, WATER ON LUNGS, 07/15/16) pt stated this allergy is "lethal" for him POLLEN (Verified Allergy, Unknown, 07/15/16) Ciprofloxacin (Verified Adverse Reaction, Intermediate, NAUSEA AND DIARHHEA, 07/15/16) Current Inpatient Medications Current Inpatient Medications Medications (Trade) Dose Ordered Sig/Edin Route Start Time Stop Time Status Last Admin Dose Admin Ioversol (Optiray 320) 100 ml UD PRN IV 07/15/16 05:15 07/19/16 05:14 Heparin Sodium (Porcine) (Heparin Sq 5000 Unit/0.5ml) 5,000 unit Q8 SQ 07/15/16 14:00 08/14/16 13:59 Ondansetron HCl (Zofran Inj) 4 mg Q6H PRN IV 07/15/16 06:45 08/14/16 06:44 Aspirin (Ecotrin Tab) 81 mg QAM PO 07/16/16 09:00 08/15/16 08:59 Polyethylene (Miralax Powder Packet) 17 gm DAILY PRN PO 07/15/16 06:45 08/14/16 06:44 Insulin Glargine (Lantus Solostar Pen) SEE PROTOCOL DAILY SC 07/15/16 09:00 08/14/16 08:59 Insulin Aspart (novoLOG ASPART) SLIDING SCALE If C... ACHS SC 07/15/16 07:00 08/14/16 06:59 Glucose (Glucose 40% Gel) 15-30 GRAMS 15 GRAMS... UD PRN PO 07/15/16 06:45 08/14/16 06:44 Glucose (Glucose Chew Tab) 4-8 Tablets 4 Tabl... UD PRN PO 07/15/16 06:45 08/14/16 06:44 Dextrose (Dextrose 50% 50ML Syringe) 25-50ML OF 50% DW IV FOR... UD PRN IV 07/15/16 06:45 08/14/16 06:44 Glucagon (Glucagon Inj) 1 mg UD PRN SQ 07/15/16 06:45 08/14/16 06:44 Miscellaneous Information 1 ea 1 ea UD PRN N/A 07/15/16 07:06 08/14/16 07:05 Vancomycin HCl 1000 mg/Sodium Chloride 270 ml @ 125 mls/hr Q12 IV 07/15/16 06:45 07/22/16 06:44 UNV Piperacillin Sod/ Tazobactam Sod/ Dextrose (Zosyn Iv/D5 100ml) 115 ml @ 200 mls/hr Q6 IV 07/15/16 06:45 07/22/16 06:44 UNV Albuterol/ Ipratropium (Duoneb) 3 ml QIDR INH 07/15/16 08:00 08/14/16 07:59 Vancomycin HCl (Consult) 1 ea UD PRN N/A 07/15/16 07:15 08/14/16 07:14 Piperacillin Sod/ Tazobactam Sod (Consult) 1 ea UD PRN N/A 07/15/16 07:15 08/14/16 07:14 Heparin Sodium (Porcine) (Heparin Iv Bolus) 1,000 unit 0900 IV 07/15/16 09:00 07/15/16 13:00 Heparin Sodium (Porcine) (Heparin Iv Bolus) 400 unit Q1H IV 07/15/16 09:00 07/15/16 11:01 Albumin Human (Albumin 25%) 12.5 gm Q90M IV 07/15/16 09:00 07/15/16 10:31 07/15/16 09:54 12.5 GM Ascorbic Acid (Vitamin C Tab) 500 mg MoWeFr@0900 PO 07/17/16 09:00 08/16/16 08:59 Collagenase (Santyl Oint) 1 appln HS EXT 07/15/16 21:00 08/14/16 20:59 Salmeterol Xinafoate/ Fluticasone (Advair Diskus 250/50 Inh) 1 puff BID INH 07/15/16 21:00 08/14/16 20:59 Gabapentin (Neurontin Cap) 200 mg Q8 PO 07/15/16 14:00 08/14/16 13:59 Lactobacillus Acidophilus (Floranex Tab) 1 tab TID PO 07/15/16 14:00 08/14/16 13:59 Loratadine (Claritin Tab) 10 mg DAILY PO 07/16/16 09:00 08/15/16 08:59 Lorazepam (Ativan Tab) 0.5 mg TID PO 07/15/16 14:00 08/14/16 13:59 Metoprolol Succinate (Toprol Xl Tab) 25 mg DAILY PO 07/16/16 09:00 08/15/16 08:59 Oxycodone HCl (Oxycontin Tab) 30 mg Q8 PO 07/15/16 14:00 07/29/16 13:59 Senna/Docusate Sodium (Senokot S Tab) 1 tab DAILY PO 07/16/16 09:00 08/15/16 08:59 Cholecalciferol (Vitamin D Tab) 5,000 inter.unit QAM PO 07/16/16 09:00 08/15/16 08:59 Dexamethasone (Decadron Tab) 2 mg DAILY PO 07/16/16 09:00 08/15/16 08:59 Ferrous Sulfate (Feosol Tab) 325 mg QAM PO 07/16/16 09:00 08/15/16 08:59 Pantoprazole Sodium (Protonix Tab) 40 mg QAM PO 07/16/16 09:00 08/15/16 08:59 Polyethylene (Miralax Powder Packet) 17 gm DAILY PO 07/16/16 09:00 08/15/16 08:59 Calcium Acetate (Phoslo Cap) 1,334 mg AC PO 07/15/16 11:00 08/14/16 10:59 Review of Systems Constitutional: + weakness, No chills, No fever Eyes: No problem reported ENT: No problem reported Respiratory: + dyspnea on exertion, + shortness of breath Cardiovascular: No problem reported Abdomen: No problem reported Musculoskeletal: No problem reported Genitourinary - Male: No problem reported Neurologic: No problem reported Psychiatric: No problem reported Endocrine: No problem reported Hematologic / Lymphatic: No problem reported Integumentary: + new/changing skin lesions Allergic / Immunologic: No problem reported Physical Exam Date Time Temp Pulse Resp B/P Pulse Ox O2 Delivery O2 Flow Rate FiO2 07/15/16 10:15 60 117/67 07/15/16 10:00 80 95/63 07/15/16 09:45 77 93/57 07/15/16 09:34 76 106/69 07/15/16 08:54 36.9 85 24 130/94 96 Nasal Cannula 2.0 07/15/16 08:15 82 07/15/16 07:58 82 18 126/97 99 Nasal Cannula 2.0 07/15/16 05:22 85 18 103/84 98 Nasal Cannula 4.0 07/15/16 04:15 88 07/15/16 03:10 07/15/16 02:51 92 18 141/100 93 Room Air 07/15/16 02:01 96/59 07/15/16 02:00 86 13 95 07/15/16 01:43 93 20 94/73 94 Nasal Cannula 2.0 07/15/16 00:36 103 07/15/16 00:35 96 Room Air 07/15/16 00:29 89 Room Air 07/15/16 00:29 37.1 103 20 110/80 94 Nasal Cannula 2.0 General Appearance: WD/WN, + mild distress Head: normocephalic, atraumatic Eyes: normal inspection, EOMI ENT: normal ENT inspection, hearing grossly normal, pharynx normal Neck: supple, no adenopathy, thyroid normal, trachea midline Respiratory/Chest: chest non-tender, no accessory muscle use, + respiratory distress (mild), + rales Cardiovascular: regular rate, rhythm, no gallop, no murmur Abdomen/GI: normal bowel sounds, non tender, soft, no organomegaly Back: normal inspection, no CVA tenderness Extremities/Musculoskelatal: + slow capillary refill, + pertinent finding ( left AKA) Neurologic/Psych: alert, oriented x 3 Skin: normal color, no rash, + pertinent finding (large skin ulceration overlying right knee) Lymphatic: no adenopathy Laboratory Results Date/Time Source Procedure Growth Status 07/15/16 01:24 Blood Blood Culture Pending Received 07/15/16 01:20 Blood Blood Culture Pending Received Last 24 Hours Test 07/15/16 00:00 07/15/16 01:24 07/15/16 01:27 07/15/16 01:32 White Blood Count 10.15 K/uL Red Blood Count 4.28 M/uL Hemoglobin 12.7 g/dL Hematocrit 37.6 % Mean Corpuscular Volume 87.9 fL Mean Corpuscular Hemoglobin 29.7 pg Mean Corpuscular Hemoglobin Concent 33.8 g/dl Platelet Count 110 K/uL Mean Platelet Volume 10.2 fL Neutrophils (%) (Auto) 87.6 % Lymphocytes (%) (Auto) 4.2 % Monocytes (%) (Auto) 7.6 % Eosinophils (%) (Auto) 0.1 % Basophils (%) (Auto) 0.1 % Neutrophils # (Auto) 8.89 K/uL Lymphocytes # (Auto) 0.43 K/uL Monocytes # (Auto) 0.77 K/uL Eosinophils # (Auto) 0.01 K/uL Basophils # (Auto) 0.01 K/uL RDW Standard Deviation 50.9 fL RDW Coefficient of Variation 15.7 % Immature Granulocyte % (Auto) 0.4 % Immature Granulocyte # (Auto) 0.04 K/uL Prothrombin Time 10.5 SECONDS Prothromb Time International Ratio 1.0 Activated Partial Thromboplast Time 28.4 SECONDS Partial Thromboplastin Ratio 1.1 Sodium Level 134 mmol/L Potassium Level 6.4 mmol/L Chloride Level 100 mmol/L Carbon Dioxide Level 20 mmol/L Anion Gap 14.0 mmol/L Blood Urea Nitrogen 91 mg/dl Creatinine 6.60 mg/dl Est Creatinine Clear Calc Drug Dose 11.8 ml/min Estimated GFR () 9.8 Estimated GFR (Non- 8.5 BUN/Creatinine Ratio 13.5 Random Glucose 123 mg/dl Calcium Level 8.8 mg/dl Magnesium Level 2.3 mg/dl Total Bilirubin 0.4 mg/dl Aspartate Amino Transf (AST/SGOT) 24 U/L Alanine Aminotransferase (ALT/SGPT) 35 U/L Alkaline Phosphatase 85 U/L Total Creatine Kinase 50 U/L Creatine Kinase MB 7.2 ng/ml Creatine Kinase MB Ratio 14.4 Total Protein 7.0 gm/dl Albumin 3.2 gm/dl Globulin 3.8 gm/dl Albumin/Globulin Ratio 0.8 Lipase 42 U/L Bedside Lactic Acid Venous 0.79 mmol/L Bedside Troponin I 0.110 ng/ml Test 07/15/16 01:35 07/15/16 02:50 07/15/16 04:44 07/15/16 04:48 Influenza Type A Antigen Neg for Influ A Influenza Type B Antigen Neg for Influ B Bedside Glucose 110 mg/dl Potassium Level 5.9 mmol/L Bedside Troponin I 2.460 ng/ml Test 07/15/16 05:17 07/15/16 08:53 07/15/16 09:25 07/15/16 10:00 Venous Blood pH 7.23 Venous Blood Partial Pressure CO2 51 mmHg Venous Blood Partial Pressure O2 38 mmHg Venous Blood HCO3 20 mmol/L Venous Blood Oxygen Saturation 64.1 % Venous Blood Base Excess -7.2 mmol/L Bedside Glucose 102 mg/dl Hepatitis B Surface Antigen NEG Hepatitis B Surface Antibody NEG Creatine Kinase MB Ratio Test 07/15/16 10:10 07/15/16 10:19 CHEST CTA for PULMONARY ARTERIES CT DOSE: 749.47 mGy.cm HISTORY: Chest pain dyspnea TECHNIQUE: Multiaxial CT images of the chest were performed following the intravenous administration of contrast to evaluate the pulmonary arteries. Maximal intensity projection images were also obtained. COMPARISON STUDY: 12/08/2015 FINDINGS: There is a normal caliber thoracic aorta with no evidence for dissection. There is no evidence for pulmonary embolus. No pleural effusions. No pneumothorax. The liver and spleen are unremarkable. No mediastinal or hilar lymphadenopathy. The central airways are patent. The lungs are clear. Deformity T12-L1 with loss of vertebral body height. This running soft tissue density previously described as diminished. This could indicate potential healing of a prior discitis. IMPRESSION: No evidence for pulmonary embolus. Healing discitis T12-L1 Electronically signed by: Stanley Johnson M.D. 07/15/2016 7:20 AM Assessment & Plan 56 yo diabetic male with ESRD on dialysis with prior diskitis/vertebral osteomyelitis, MRSA infection of permacath and most recently infected skin ulceration of leg with Pseudomonas now with acute SOB. Does not appear to have pneumonia on chest CT, possible sources of infection include infection related to dialysis and infection right leg. Vancomycin and Zosyn appropriate pending further culture results. Will follow.
[2016-07-15] MEDS ORDERED: CALCIUM ACETATE 667MG GELCAP PO SCH (12:00)
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
[2016-07-15] MEDS: GABAPENTIN 100 MG CAP PO SCH ×2 (13:51→22:04)
[2016-07-15] MEDS: LACTOBACILLUS ACIDOPHILUS (FLORANEX) TAB PO SCH ×2 (13:51→22:05)
[2016-07-15] MEDS: CALCIUM ACETATE 667MG GELCAP PO SCH ×2 (13:51→16:10)
[2016-07-15] MEDS: LORAZEPAM 0.5 MG TAB PO SCH ×2 (13:55→20:24)
[2016-07-15] MEDS: OXYCODONE HCL 15 MG TABCR (OXYCONTIN) PO SCH ×2 (13:55→22:05)
[2016-07-15] MEDS ORDERED: HEPARIN SOD 5000 UNIT/0.5 ML CARP SQ SCH (14:00)
[2016-07-15] MEDS: INSULIN GLARGINE SOLOSTAR 100 UNITS/ML 3 ML PEN SC SCH (14:20)
--- NOTE | 2016-07-15 16:00 | Pharmacy Progress Note ---
Pharmacy Antibiotic Consult Date of Service: Jul 15, 2016. Pharmacy Dosing Scope Pharmacy is consulted to initiate Vancomycin IV dosing therapy, order appropriate labs and adjust drug dose/frequency. Subjective The patient is a 56 year old male admitted on Jul 15, 2016 at 08:41 with SOB, possible PNX ordered Vancomycin to continue and Zosyn. Patient on Vancomycin via his HD sessions which is currently MWF. He has a osteomyelitis/discitis of T-12-L2 and possible RLE infection along with potential for infection via his dialysis port (Sepsis) Dr. Monk notes this most likely not a PNX. Objective Height (Feet): 5 Height (Inches): 5.00 Weight (Kilograms): 74.400 Lab Results (24hrs): Laboratory Tests Test 07/15/16 01:24 BUN/Creatinine Ratio 13.5 Blood Urea Nitrogen 91 mg/dl Creatinine 6.60 mg/dl White Blood Count 10.15 K/uL Red Blood Count 4.28 M/uL Hemoglobin 12.7 g/dL Hematocrit 37.6 % Mean Corpuscular Volume 87.9 fL Mean Corpuscular Hemoglobin 29.7 pg Mean Corpuscular Hemoglobin Concent 33.8 g/dl Platelet Count 110 K/uL Mean Platelet Volume 10.2 fL Neutrophils (%) (Auto) 87.6 % Lymphocytes (%) (Auto) 4.2 % Monocytes (%) (Auto) 7.6 % Eosinophils (%) (Auto) 0.1 % Basophils (%) (Auto) 0.1 % Neutrophils # (Auto) 8.89 K/uL Lymphocytes # (Auto) 0.43 K/uL Monocytes # (Auto) 0.77 K/uL Eosinophils # (Auto) 0.01 K/uL Basophils # (Auto) 0.01 K/uL Micro Results: Item Value Date Time Blood Culture Received 07/15/16 012 Blood Pending Blood Culture Received 07/15/16 012 Blood Pending Recent Pertinent Medications Item Value Date Time Piperacillin Sod/ 115 ml @ 28.75 mls/hr 07/15/16 2000 Tazobactam Sod Q12H/IV 3.375 gm/Dextrose Assessment & Plan Patient on Vancomycin IV via routine -W- dialysis sessions. He was dialyzed upon admission this morning and a random level obtained about an hour post HD. The level was 14.9mcg/ml. I will administer Vancomycin 500mg and obtain a random level with AM labs tomorrow. Pharmacy will continue to follow and will adjust dose/frequency as necessary. Thank you
[2016-07-15] MEDS ORDERED: VANCOMYCIN INJ 500 MG in SODIUM CHLORIDE 0.9% 250ML 250 ML IV SCH (16:30)
[2016-07-15] MEDS ORDERED: HEPARIN IV LOW DOSE NO BOLUS SCH (17:06)
--- NOTE | 2016-07-15 17:08 | Progress Note ---
Progress Note Date of Service Jul 15, 2016. Progress Note ATTENDING NOTE : pt's Troponin at 1400 elevated ~ 8 earlier POC troponin were 0.1 -> 0.2 EKG chronic LBBB pt remains asymptomatic Updated by Cardiology NSTEMI started on IV heparin low dose no bolus cont Aspirin , Beta david Statin will be added by Cardiology ECHO ordered -report pending con to monitor in tele
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
[2016-07-15 20:16] LABS: URINE APPEARANCE CLOUDY (CLEAR); URINE BILIRUBIN NEG (NEG); URINE COLOR YELLOW; URINE NITRITE NEG (NEG); URINE SPECIFIC GRAVITY 1.022 (1.000-1.030); UROBILINOGEN NEG (NEG); ZZURINE CULT IF INDIC CATH YES
[2016-07-15] MEDS: FLUTICASONE/SALMETEROL 250/50 (ADVAIR) 14 PUFF/1 INHALER INH SCH (20:19)
[2016-07-15 20:23] LABS: MANUAL MICROSCOPIC REQUIRED? NO; REVIEW REQ? YES
[2016-07-15] MEDS: PIPERACILL/TAZOBAC IV 3.375 GM in DEXTROSE 5% 100ML 100 ML IV SCH (20:24)
[2016-07-15] MEDS: HEPARIN 25,000 UNIT/500ML D5W 500 ML IV PRN (20:25)
[2016-07-15 20:34] LABS: URINE PATH CASTS 1-5 GRANULAR CASTS /lpf (0)
[2016-07-15] MEDS: COLLAGENASE OINT 30 GM TUBE EXT SCH (22:05)
[2016-07-16] VITALS (8 sets, daily range): BP systolic 111–145; BP diastolic 70–93; PULSE 74–95; TEMP 36.7–37; O2SAT 91–94
[2016-07-16 02:36] LABS: PARTIAL THROMBOPLASTIN RATIO 1.4
[2016-07-16] MEDS ORDERED: HEPARIN IV BOLUS 4,000 UNIT in SYRINGE 0 ML IV ONE (04:15)
[2016-07-16] MEDS: HEPARIN 25,000 UNIT/500ML D5W 500 ML IV PRN (04:49)
[2016-07-16 06:01] LABS: BASO % 0.3 %; BASO ABS # 0.02 K/uL (0-0.2); COMPLETE YES; EOS % 0.7 %; HEMATOCRIT 33.2 % (42-52); IG% 0.4 %; LYMPH % 11.2 %; LYMPH ABS # 0.76 K/uL (1.2-3.4); MEAN CELL VOLUME 88.5 fL (80-100); MEAN CORPUSCULAR HEMOGLOBIN 29.1 pg (25-34); MEAN CORPUSCULAR HGB CONC 32.8 g/dl (32-36); MEAN PLATELET VOLUME 9.8 fL (7.4-10.4); MONO % 11.5 %; NEUT % 75.9 %; PLATELET COUNT 121 K/uL (130-400); RED BLOOD COUNT 3.75 M/uL (4.7-6.1); WHITE BLOOD COUNT 6.76 K/uL (4.8-10.8)
[2016-07-16] MEDS: GABAPENTIN 100 MG CAP PO SCH ×3 (06:11→23:05)
[2016-07-16] MEDS: OXYCODONE HCL 15 MG TABCR (OXYCONTIN) PO SCH ×3 (06:11→22:37)
[2016-07-16 06:25] LABS: ESTIMATED AVERAGE GLUCOSE 126 mg/dl; HA1C FLAG Normal (Normal)
[2016-07-16 06:58] LABS: BUN/CREATININE RATIO 11.7 (10-20); C-REACTIVE PROTEIN 5.06 mg/dl (0-0.29); CALCIUM 8.3 mg/dl (8.5-10.1); CREATININE 4.6 mg/dl (0.60-1.40); MAGNESIUM 2.1 mg/dl (1.8-2.4); PHOSPHORUS 5.3 mg/dl (2.5-4.9); POTASSIUM 5.5 mmol/L (3.5-5.1)
--- NOTE | 2016-07-16 07:03 | Clinical Documentation Query ---
CLINICAL DOCUMENTATION QUERY 56-y/o male who presents with NSTEMI and possible pneumonia. H&P depicted a hx of CHF w/o specificity. In your clinical opinion is this patient being managed for: ( X ) Chronic systolic heart failure ( ) Other explanation of clinical findings (Please Explain) ( ) Unable to determine (Please Define) ( ) Need to Discuss ( ) Not Agree The medical record reflects the following clinical findings, treatment, and risk factors. Clinical Indicators: Per cardiology patient has cardiomyopathy with LVEF of 15-40% with most recent echo in October 2015 showing 15-20%. Treatment: Telemetry, I/O's, daily weight, and routine dialysis. Risk Factors: Age, HTN, ESRD, Cardiomyopathy Please clarify and document your clinical opinion in the progress notes and discharge summary. Terms such as "probable", "suspected", "likely", "questionable", "possible", or "still to be ruled out" are acceptable. IF IN AGREEMENT, YOU MUST DOCUMENT ABOVE DIAGNOSTIC STATEMENT IN DAILY PROGRESS NOTES AND DISCHARGE SUMMARY. This document is not part of the patient's record. Thank You, Thomas Hedrick, RN [phone]
[2016-07-16] MEDS: ALBUT/IPRATROP 3MG/0.5MG NEB 3 ML VIAL INH SCH ×2 (07:20→11:24)
[2016-07-16] MEDS ORDERED: PERFLUTREN LIPID MICROSPHERE (DEFINITY) IV ONE (07:24)
[2016-07-16] MEDS: CALCIUM ACETATE 667MG GELCAP PO SCH ×3 (08:07→17:03)
[2016-07-16] MEDS: PANTOprazole SOD 40 MG TAB PO SCH (08:07)
[2016-07-16] MEDS: CHOLECALCIFEROL 1000 INTER.UNIT TAB PO SCH (08:08)
[2016-07-16] MEDS: LACTOBACILLUS ACIDOPHILUS (FLORANEX) TAB PO SCH ×3 (08:08→20:55)
[2016-07-16] MEDS: METOPROLOL SUCC 25MG EXT REL TAB PO SCH (08:08)
[2016-07-16] MEDS: ASPIRIN 81 MG ECTAB PO SCH (08:08)
[2016-07-16] MEDS: PIPERACILL/TAZOBAC IV 3.375 GM in DEXTROSE 5% 100ML 100 ML IV SCH ×2 (08:09→20:45)
[2016-07-16] MEDS: FERROUS SULFATE 325 MG TAB PO SCH (08:09)
[2016-07-16] MEDS: FLUTICASONE/SALMETEROL 250/50 (ADVAIR) 14 PUFF/1 INHALER INH SCH ×2 (08:09→20:55)
[2016-07-16] MEDS: LORAZEPAM 0.5 MG TAB PO SCH ×3 (08:13→20:55)
[2016-07-16] MEDS: INSULIN ASPART 100 UNITS/ML 3 ML PEN SC SCH ×4 (08:13→21:00)
[2016-07-16] MEDS: POLYETHYLENE (MIRALAX) 17 GM PACK PO SCH (08:15)
[2016-07-16] MEDS: INSULIN GLARGINE SOLOSTAR 100 UNITS/ML 3 ML PEN SC SCH (08:20)
--- NOTE | 2016-07-16 08:27 | Nephrology Progress Note ---
Nephrology Progress Note Date of Service: Jul 16, 2016. Subjective 56 yo male with esrd who presented with sudden onset sob. has elevated troponin with nstemi and on heparin drip. had dialysis yesterday. has chronic wounds with a significant wound on right knee that wound care has been following for several months. has chronic blair. pt comfortable. in good spirits. denies sob or chest pain. Objective Date Time Temp Pulse Resp B/P Pulse Ox O2 Delivery O2 Flow Rate FiO2 07/16/16 07:45 36.8 86 20 111/70 93 Room Air 07/16/16 07:32 82 18 91 Room Air 07/16/16 04:05 Room Air 07/16/16 03:31 36.7 74 24 113/73 93 Room Air 07/16/16 00:00 Room Air 07/15/16 23:59 36.9 89 24 125/76 95 Room Air 07/15/16 20:15 37.0 77 18 113/77 95 Nasal Cannula 2.0 07/15/16 20:00 99 Nasal Cannula 2.0 07/15/16 19:30 80 18 99 Nasal Cannula 2.0 07/15/16 16:07 36.7 85 18 97/68 97 Nasal Cannula 1.0 07/15/16 16:00 Nasal Cannula 2.0 07/15/16 13:25 36.5 95 104/60 07/15/16 13:00 88 88/79 07/15/16 12:45 65 92/61 07/15/16 12:31 49 106/62 07/15/16 12:17 84 97/75 07/15/16 12:00 86 74/58 07/15/16 12:00 Nasal Cannula 2.0 07/15/16 11:45 60 73/63 07/15/16 11:42 84 18 94 Nasal Cannula 2.0 07/15/16 11:30 59 104/67 07/15/16 11:15 66 96/64 07/15/16 11:00 64 94/65 07/15/16 10:45 78 91/73 07/15/16 10:30 58 98/51 07/15/16 10:15 60 117/67 07/15/16 10:00 80 95/63 07/15/16 09:45 77 93/57 07/15/16 09:34 76 106/69 07/15/16 09:15 36.7 77 98/74 07/15/16 08:54 36.9 85 24 130/94 96 Nasal Cannula 2.0 Physical Exam: General-aaox3 Eyes-no scleral icterus ENT-mmm Neck-supple Lungs-+end expiratory wheeze Heart-rrr Abdomen-bs+, soft, mildly distended, nontender Extremities-left aka, no edema Neuro-nonfocal Derm-right knee wound -chronic blair Current Inpatient Medications Medications (Trade) Dose Ordered Sig/Edin Route Start Time Stop Time Status Last Admin Dose Admin Ioversol (Optiray 320) 100 ml UD PRN IV 07/15/16 05:15 07/19/16 05:14 Ondansetron HCl (Zofran Inj) 4 mg Q6H PRN IV 07/15/16 06:45 08/14/16 06:44 Aspirin (Ecotrin Tab) 81 mg QAM PO 07/16/16 09:00 08/15/16 08:59 07/16/16 08:08 81 MG Polyethylene (Miralax Powder Packet) 17 gm DAILY PRN PO 07/15/16 06:45 08/14/16 06:44 Insulin Glargine (Lantus Solostar Pen) SEE PROTOCOL DAILY SC 07/15/16 09:00 08/14/16 08:59 Insulin Aspart (novoLOG ASPART) SLIDING SCALE If C... ACHS SC 07/15/16 07:00 08/14/16 06:59 07/16/16 08:13 2 UNITS Glucose (Glucose 40% Gel) 15-30 GRAMS 15 GRAMS... UD PRN PO 07/15/16 06:45 08/14/16 06:44 Glucose (Glucose Chew Tab) 4-8 Tablets 4 Tabl... UD PRN PO 07/15/16 06:45 08/14/16 06:44 Dextrose (Dextrose 50% 50ML Syringe) 25-50ML OF 50% DW IV FOR... UD PRN IV 07/15/16 06:45 08/14/16 06:44 Glucagon (Glucagon Inj) 1 mg UD PRN SQ 07/15/16 06:45 08/14/16 06:44 Miscellaneous Information 1 ea 1 ea UD PRN N/A 07/15/16 07:06 08/14/16 07:05 Piperacillin Sod/ Tazobactam Sod/ Dextrose (Zosyn Iv/D5 100ml) 115 ml @ 28.75 mls/ hr Q12H IV 07/15/16 20:00 07/22/16 19:59 07/16/16 08:09 28.75 MLS/HR Albuterol/ Ipratropium (Duoneb) 3 ml QIDR INH 07/15/16 08:00 08/14/16 07:59 07/15/16 19:29 3 ML Vancomycin HCl (Consult) 1 ea UD PRN N/A 07/15/16 07:15 08/14/16 07:14 Piperacillin Sod/ Tazobactam Sod (Consult) 1 ea UD PRN N/A 07/15/16 07:15 08/14/16 07:14 Ascorbic Acid (Vitamin C Tab) 500 mg MoWeFr@0900 PO 07/17/16 09:00 08/16/16 08:59 Collagenase (Santyl Oint) 1 appln HS EXT 07/15/16 21:00 08/14/16 20:59 07/15/16 22:05 1 APPLN Salmeterol Xinafoate/ Fluticasone (Advair Diskus 250/50 Inh) 1 puff BID INH 07/15/16 21:00 08/14/16 20:59 07/16/16 08:09 1 PUFF Gabapentin (Neurontin Cap) 200 mg Q8 PO 07/15/16 14:00 08/14/16 13:59 07/16/16 06:11 200 MG Lactobacillus Acidophilus (Floranex Tab) 1 tab TID PO 07/15/16 14:00 08/14/16 13:59 07/16/16 08:08 1 TAB Loratadine (Claritin Tab) 10 mg DAILY PO 07/16/16 09:00 08/15/16 08:59 Lorazepam (Ativan Tab) 0.5 mg TID PO 07/15/16 14:00 08/14/16 13:59 07/16/16 08:13 0.5 MG Metoprolol Succinate (Toprol Xl Tab) 25 mg DAILY PO 07/16/16 09:00 08/15/16 08:59 07/16/16 08:08 25 MG Oxycodone HCl (Oxycontin Tab) 30 mg Q8 PO 07/15/16 14:00 07/29/16 13:59 07/16/16 06:11 30 MG Senna/Docusate Sodium (Senokot S Tab) 1 tab DAILY PO 07/16/16 09:00 08/15/16 08:59 Cholecalciferol (Vitamin D Tab) 5,000 inter.unit QAM PO 07/16/16 09:00 08/15/16 08:59 07/16/16 08:08 5,000 INTER.UNIT Dexamethasone (Decadron Tab) 2 mg DAILY PO 07/16/16 09:00 08/15/16 08:59 Ferrous Sulfate (Feosol Tab) 325 mg QAM PO 07/16/16 09:00 08/15/16 08:59 07/16/16 08:09 325 MG Pantoprazole Sodium (Protonix Tab) 40 mg QAM PO 07/16/16 09:00 08/15/16 08:59 07/16/16 08:07 40 MG Polyethylene (Miralax Powder Packet) 17 gm DAILY PO 07/16/16 09:00 08/15/16 08:59 07/16/16 08:15 17 GM Calcium Acetate (Phoslo Cap) 1,334 mg AC PO 07/15/16 11:00 08/14/16 10:59 07/16/16 08:07 1,334 MG Atorvastatin Calcium 40 mg 40 mg QAM PO 07/16/16 09:00 08/15/16 08:59 Heparin Sodium/ Dextrose (Heparin 25,000 Unit/500ml D5W) 500 ml @ 16 mls/hr Q24H PRN IV 07/15/16 19:00 08/14/16 18:59 07/16/16 04:49 16 MLS/HR Last 24 Hours Test 07/15/16 08:53 07/15/16 09:25 07/15/16 13:43 07/15/16 14:10 Bedside Glucose 102 mg/dl 103 mg/dl Hepatitis B Surface Antigen NEG Hepatitis B Surface Antibody NEG Total Creatine Kinase 112 U/L Creatine Kinase MB 21.3 ng/ml Creatine Kinase MB Ratio 19.0 Troponin I 8.940 ng/ml Random Vancomycin Level 14.9 mcg/ml Test 07/15/16 15:35 07/15/16 16:00 07/15/16 19:20 07/15/16 19:58 Bedside Glucose 99 mg/dl 160 mg/dl Creatine Kinase MB Ratio Urine Color YELLOW Urine Appearance CLOUDY Urine pH 5.0 Urine Specific [place] 1.022 Urine Protein 2+ Urine Glucose (UA) NEG Urine Ketones NEG Urine Occult Blood 3+ Urine Nitrite NEG Urine Bilirubin NEG Urine Urobilinogen NEG Urine Leukocyte Esterase MODERATE Urine WBC (Auto) >30 /hpf Urine RBC (Auto) >30 /hpf Urine Hyaline Casts (Auto) 10-30 /lpf Urine Epithelial Cells (Auto) 10-20 /lpf Urine Bacteria (Auto) NEG Urine Crystals CALCIUM OXALATE Urine Pathogenic Casts 1-5 GRANULAR CASTS /lpf Urine Yeast (Auto) Test 07/15/16 20:00 07/15/16 20:20 07/16/16 02:21 07/16/16 05:34 Creatine Kinase MB Ratio Creatine Kinase MB 14.7 ng/ml Troponin I 5.750 ng/ml Activated Partial Thromboplast Time 37.5 SECONDS Partial Thromboplastin Ratio 1.4 White Blood Count 6.76 K/uL Red Blood Count 3.75 M/uL Hemoglobin 10.9 g/dL Hematocrit 33.2 % Mean Corpuscular Volume 88.5 fL Mean Corpuscular Hemoglobin 29.1 pg Mean Corpuscular Hemoglobin Concent 32.8 g/dl Platelet Count 121 K/uL Mean Platelet Volume 9.8 fL Neutrophils (%) (Auto) 75.9 % Lymphocytes (%) (Auto) 11.2 % Monocytes (%) (Auto) 11.5 % Eosinophils (%) (Auto) 0.7 % Basophils (%) (Auto) 0.3 % Neutrophils # (Auto) 5.12 K/uL Lymphocytes # (Auto) 0.76 K/uL Monocytes # (Auto) 0.78 K/uL Eosinophils # (Auto) 0.05 K/uL Basophils # (Auto) 0.02 K/uL RDW Standard Deviation 52.0 fL RDW Coefficient of Variation 16.1 % Immature Granulocyte % (Auto) 0.4 % Immature Granulocyte # (Auto) 0.03 K/uL Erythrocyte Sedimentation Rate 14 mm/hr Sodium Level 136 mmol/L Potassium Level 5.5 mmol/L Chloride Level 97 mmol/L Carbon Dioxide Level 27 mmol/L Anion Gap 12.0 mmol/L Blood Urea Nitrogen 54 mg/dl Creatinine 4.60 mg/dl Est Creatinine Clear Calc Drug Dose 15.1 ml/min Estimated GFR () 15.2 Estimated GFR (Non- 13.1 BUN/Creatinine Ratio 11.7 Random Glucose 99 mg/dl Estimated Average Glucose 126 mg/dl Hemoglobin A1c 6.0 % Calcium Level 8.3 mg/dl Phosphorus Level 5.3 mg/dl Magnesium Level 2.1 mg/dl C-Reactive Protein 5.06 mg/dl Random Vancomycin Level 25.7 mcg/ml Test 07/16/16 06:39 Bedside Glucose 96 mg/dl Date/Time Source Procedure Growth Status 07/15/16 19:20 Urine,Catheterized Urine Culture Pending Received Assessment & Plan ESRD-plan on dialysis again tomorrow. no emergent need for dialysis today. k trending down and is now 5.5. Anemia of renal failure-hg 10.9 and will redose procrit tomorrow.
[2016-07-16] MEDS ORDERED: ASPIRIN 81 MG ECTAB PO SCH (09:00)
[2016-07-16] MEDS: DOCUSATE SODIUM/SENNA 50/8.6MG TAB PO SCH (09:31)
[2016-07-16] MEDS: DEXAMETHASONE 1 MG TAB PO SCH (09:31)
[2016-07-16] MEDS: ATORVASTATIN 40 MG TAB PO SCH (09:31)
[2016-07-16] MEDS: LORATADINE 10 MG TAB PO SCH (09:31)
[2016-07-16 10:53] LABS: PARTIAL THROMBOPLASTIN RATIO 2.4
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
--- NOTE | 2016-07-16 13:25 | Progress Note ---
Internal Med Progress Note Date of Service: Jul 16, 2016. Provider Documentation: SUBJECTIVE: Patient is seen and examined at bedside. States feeling much better. Denies any chest pain, SOB, dizziness, palpitations. OBJECTIVE: Vital Signs-as noted below Physical Exam: General Appearance:Moderately built and nourished, no apparent distress, chronically ill appearing Head: normocephalic, Atraumatic Eyes: normal inspection, EOMI, PERRLA Neck: supple, Trachea midline Respiratory/Chest: B/L rales, decreased breath sounds Cardiovascular: S1, S2, NSR, No murmur Abdomen/GI:Soft, Non tender, Bowel sounds present Extremities/Musculoskelatal:left AKA. Right LE in bandage Neurologic/Psych:AAOX3, grossly no focal neurological deficits Skin: normal color, warm Lab data as noted below. ASSESSMENT & PLAN: NSTEMI: Elevated troponin EKG: No acute changes. Has chronic incomplete LBBB ECHO: severe LV dysfunction, EF 15-20% Continue IV heparin On ASA, statins, beta david H/O presumed ischemic cardiomyopathy S/P ICD placed in 2014 after syncopal event Patient previously refused diagnostic cardiac cath ECHO in October 2015: LVEF 15-20% on dialysis ESRD on HD: Hyperkalemia: Planned for HD tomorrow Appreciate Nephrology help Potassium levels improvin.5 today Anemia of renal failure: Monitor Hb Hb:10.9 today Planned to redose procrit tomorrow by nephrology Acute on chronic hypoxic respiratory failure: On chronic oxygen 2-3 L at home Unclear etiology: likely secondary to comorbidities CTA:No evidence for pulmonary embolus. Healing discitis T12-L1 Currently saturating 91-93% on RA Nebs PRN PVD: S/P left AKA September 2015 Continue current medications Right Lower Extremity wound: Infection likely related to dialysis and infection of right leg H/O Vertebral Osteomyelitis and diskitis in November 2015: H/O MRSA infection of permanent cath Not a surgical candidate at that time due to comorbidities Continue antibiotics per ID Follow up cultures Appreciate ID help Continue wound care DM II: ISS/Lantus Accu checks DVT Px: On IV heparin Code Status: Full code Disposition: Continue monitoring in Tele Vital Signs: Date Time Temp Pulse Resp B/P Pulse Ox O2 Delivery O2 Flow Rate FiO2 07/16/16 12:00 Room Air 07/16/16 11:42 36.9 95 20 135/85 91 Room Air 07/16/16 11:15 82 12 91 Room Air 07/16/16 08:00 Room Air 07/16/16 07:45 36.8 86 20 111/70 93 Room Air 07/16/16 07:32 82 18 91 Room Air 07/16/16 04:05 Room Air 07/16/16 03:31 36.7 74 24 113/73 93 Room Air 07/16/16 00:00 Room Air 07/15/16 23:59 36.9 89 24 125/76 95 Room Air 07/15/16 20:15 37.0 77 18 113/77 95 Nasal Cannula 2.0 07/15/16 20:00 99 Nasal Cannula 2.0 07/15/16 19:30 80 18 99 Nasal Cannula 2.0 07/15/16 16:07 36.7 85 18 97/68 97 Nasal Cannula 1.0 07/15/16 16:00 Nasal Cannula 2.0 Lab Results: Results Past 24 Hours Test 07/15/16 14:10 07/15/16 15:35 07/15/16 16:00 07/15/16 19:20 Range/Units Total Creatine Kinase 112 39-308 U/L Creatine Kinase MB 21.3 0.5-3.6 ng/ml Creatine Kinase MB Ratio 19.0 0-3.0 Troponin I 8.940 0-0.045 ng/ml Random Vancomycin Level 14.9 mcg/ml Bedside Glucose 99 70-99 mg/dl Urine Color YELLOW Urine Appearance CLOUDY CLEAR Urine pH 5.0 4.5-7.5 Urine Specific [place] 1.022 1.000-1.030 Urine Protein 2+ NEG Urine Glucose (UA) NEG NEG Urine Ketones NEG NEG Urine Occult Blood 3+ NEG Urine Nitrite NEG NEG Urine Bilirubin NEG NEG Urine Urobilinogen NEG NEG Urine Leukocyte Esterase MODERATE NEG Urine WBC (Auto) >30 0-5 /hpf Urine RBC (Auto) >30 0-4 /hpf Urine Hyaline Casts (Auto) 10-30 0-5 /lpf Urine Epithelial Cells (Auto) 10-20 0-5 /lpf Urine Bacteria (Auto) NEG NEG Urine Crystals CALCIUM OXALATE NONE PRSENT Urine Pathogenic Casts 1-5 GRANULAR CASTS 0 /lpf Urine Yeast (Auto) NONE PRSENT Test 07/15/16 19:58 07/15/16 20:00 07/15/16 20:20 07/16/16 02:21 Range/Units Bedside Glucose 160 70-99 mg/dl Creatine Kinase MB Ratio 0-3.0 Creatine Kinase MB 14.7 0.5-3.6 ng/ml Troponin I 5.750 0-0.045 ng/ml Activated Partial Thromboplast Time 37.5 21.0-31.0 SECONDS Partial Thromboplastin Ratio 1.4 Test 07/16/16 05:34 07/16/16 06:39 07/16/16 10:05 07/16/16 11:04 Range/Units White Blood Count 6.76 4.8-10.8 K/uL Red Blood Count 3.75 4.7-6.1 M/uL Hemoglobin 10.9 14.0-18.0 g/dL Hematocrit 33.2 42-52 % Mean Corpuscular Volume 88.5 80-100 fL Mean Corpuscular Hemoglobin 29.1 25-34 pg Mean Corpuscular Hemoglobin Concent 32.8 32-36 g/dl Platelet Count 121 130-400 K/uL Mean Platelet Volume 9.8 7.4-10.4 fL Neutrophils (%) (Auto) 75.9 % Lymphocytes (%) (Auto) 11.2 % Monocytes (%) (Auto) 11.5 % Eosinophils (%) (Auto) 0.7 % Basophils (%) (Auto) 0.3 % Neutrophils # (Auto) 5.12 1.4-6.5 K/uL Lymphocytes # (Auto) 0.76 1.2-3.4 K/uL Monocytes # (Auto) 0.78 0.11-0.59 K/uL Eosinophils # (Auto) 0.05 0-0.5 K/uL Basophils # (Auto) 0.02 0-0.2 K/uL RDW Standard Deviation 52.0 36.4-46.3 fL RDW Coefficient of Variation 16.1 11.5-14.5 % Immature Granulocyte % (Auto) 0.4 % Immature Granulocyte # (Auto) 0.03 0.00-0.02 K/uL Erythrocyte Sedimentation Rate 14 0-14 mm/hr Sodium Level 136 136-145 mmol/L Potassium Level 5.5 3.5-5.1 mmol/L Chloride Level 97 98-107 mmol/L Carbon Dioxide Level 27 21-32 mmol/L Anion Gap 12.0 3-11 mmol/L Blood Urea Nitrogen 54 7-18 mg/dl Creatinine 4.60 0.60-1.40 mg/dl Est Creatinine Clear Calc Drug Dose 15.1 ml/min Estimated GFR () 15.2 Estimated GFR (Non- 13.1 BUN/Creatinine Ratio 11.7 10-20 Random Glucose 99 70-99 mg/dl Estimated Average Glucose 126 mg/dl Hemoglobin A1c 6.0 4.5-5.6 % Calcium Level 8.3 8.5-10.1 mg/dl Phosphorus Level 5.3 2.5-4.9 mg/dl Magnesium Level 2.1 1.8-2.4 mg/dl C-Reactive Protein 5.06 0-0.29 mg/dl Random Vancomycin Level 25.7 mcg/ml Bedside Glucose 96 121 70-99 mg/dl Activated Partial Thromboplast Time 63.3 21.0-31.0 SECONDS Partial Thromboplastin Ratio 2.4 Microbiology Results 07/15/16 Urine Culture - Preliminary, Resulted NO GROWTH - LESS THAN 1,000 COLONIES/...
--- NOTE | 2016-07-16 16:00 | ECHOCARDIOGRAM REPORT ---
*NOTICE TO RECEIVING LIBERTARIAN AGENCY This information is strictly Confidential and protected under [place] law. [place] law prohibits you from making any further disclosure of this information unless further disclosure is expressly permitted by the written consent of the person to whom it pertains or is authorized by law. A general authorization for the release of medical or other information is not sufficient for this purpose. Hospital accepts no responsibility if the information is made available to any other person, INCLUDING THE PATIENT. Interpretation Summary * Name: YOUNG HINKLE Study Date: 07/16/2016 07:57 AM BP: 113/73 mmHg * Patient Location: C.2T\S\E221\S\1 HR: 78 * : 1960 (M/d/yyyy) Gender: Male Height: 65 in * Age: 56 yrs Ethnicity: CA Weight: 167 lb * Ordering Physician: Liz Hussein * Referring Physician: Delmi vAila * Performed By: Lachelle Chang RCS * * Reason For Study: ELEVATED TROPONIN * BSA: 1.8 m2 * The study was technically adequate. * Compared to prior study, there is no significant change. * -- Conclusions -- * The left ventricle is moderately dilated. * Ejection Fraction = 20-25%. * There is severe global hypokinesis of the left ventricle. * There is mild mitral regurgitation. * There is moderate tricuspid regurgitation. Procedure Details * A complete two-dimensional transthoracic echocardiogram was performed (2D, M-mode, Doppler and color flow Doppler). Left Ventricle * The left ventricle is moderately dilated. * There is no thrombus. * There is normal left ventricular wall thickness. * Ejection Fraction = 20-25%. * There is severe global hypokinesis of the left ventricle. Right Ventricle * The right ventricular cavity size is normal (basal dimension <4.2 cm in right ventricular apical 4-chamber view). * The right ventricular systolic function is qualitatively normal. Atria * The left atrium is moderately dilated. * The right atrium is mildly dilated. Mitral Valve * There is moderate mitral annular calcification. * The mitral valve leaflets appear thickened, but open well. * There is no mitral valve stenosis. * There is mild mitral regurgitation. Tricuspid Valve * The tricuspid valve is not well visualized. * There is no tricuspid stenosis. * There is moderate tricuspid regurgitation. * Doppler findings do not suggest pulmonary hypertension. Aortic Valve * Aortic valve sclerosis mild, without significant aortic valvular stenosis. * There is no significant aortic regurgitation. Pulmonic Valve * The pulmonary valve is not well seen, but the Doppler examination is normal without significant regurgitation or stenosis. Great Vessels * The aortic root is normal size. Pericardium/Pleural * There is no pericardial effusion. Great Vessels * Normal inferior vena cava size and collapsability with sniff indicates a normal right atrial pressure of 3 mmHg Left Ventricular Diastolic Function * Grade I diastolic dysfunction, (abnormal relaxation pattern). MMode 2D Measurements and Calculations IVSd 1.1 cm IVSs 3.2 cm LVIDd 6.6 cm LVIDs 3.7 cm LVPWd 1.1 cm LVPWs 1.5 cm IVS/LVPW 1.0 FS 44.6 % EDV(Teich) 222.4 ml ESV(Teich) 56.3 ml EF(Teich) 74.7 % EDV(cubed) 285.4 ml ESV(cubed) 48.6 ml EF(cubed) 83.0 % % IVS thick 185.9 % % LVPW thick 31.7 % LV mass(C)d 330.7 grams LV mass(C)dI 180.5 grams/m\S\2 LV mass(C)s 435.0 grams LV mass(C)sI 237.4 grams/m\S\2 SV(Teich) 166.1 ml SI(Teich) 90.7 ml/m\S\2 SV(cubed) 236.8 ml SI(cubed) 129.2 ml/m\S\2 Ao root diam 3.7 cm Ao root area 10.9 cm\S\2 ACS 1.8 cm LA dimension 5.1 cm LA/Ao 1.4 LVOT diam 2.0 cm LVOT area 3.0 cm\S\2 LVAd ap4 46.8 cm\S\2 LVLd ap4 8.4 cm EDV(MOD-sp4) 222.5 ml EDV(sp4-el) 223.0 ml LVAs ap4 37.9 cm\S\2 LVLs ap4 7.3 cm ESV(MOD-sp4) 166.7 ml ESV(sp4-el) 166.0 ml EF(MOD-sp4) 25.1 % EF(sp4-el) 25.5 % LVAd ap2 48.9 cm\S\2 LVLd ap2 8.6 cm EDV(MOD-sp2) 226.6 ml EDV(sp2-el) 235.6 ml LVAs ap2 38.6 cm\S\2 LVLs ap2 8.0 cm ESV(MOD-sp2) 153.6 ml ESV(sp2-el) 158.1 ml EF(MOD-sp2) 32.2 % EF(sp2-el) 32.9 % LVLd %diff 3.1 % EDV(MOD-bp) 228.3 ml LVLs %diff 8.1 % ESV(MOD-bp) 165.1 ml EF(MOD-bp) 27.7 % SV(MOD-sp4) 55.8 ml SI(MOD-sp4) 30.5 ml/m\S\2 SV(MOD-sp2) 72.9 ml SI(MOD-sp2) 39.8 ml/m\S\2 SV(MOD-bp) 63.2 ml SI(MOD-bp) 34.5 ml/m\S\2 SV(sp4-el) 57.0 ml SI(sp4-el) 31.1 ml/m\S\2 SV(sp2-el) 77.5 ml SI(sp2-el) 42.3 ml/m\S\2 Doppler Measurements and Calculations MV E max kathryn 81.4 cm/sec MV A max kathryn 86.8 cm/sec MV E/A 0.94 MV P1/2t max kathryn 80.0 cm/sec MV P1/2t 45.4 msec MVA(P1/2t) 4.8 cm\S\2 MV dec slope 516.2 cm/sec\S\2 MV dec time 0.12 sec Ao V2 max 90.6 cm/sec Ao max PG 3.3 mmHg Ao max PG (full) 1.5 mmHg VALERIE(V,A) 2.3 cm\S\2 VALERIE(V,D) 2.3 cm\S\2 LV V1 max PG 1.8 mmHg LV V1 max 67.2 cm/sec PA V2 max 68.3 cm/sec PA max PG 1.9 mmHg TR max kathryn 257.8 cm/sec
[2016-07-16] MEDS: IPRATROPIUM BROMIDE/ALBUTEROL respimat INH INH SCH ×2 (17:05→20:55)
--- NOTE | 2016-07-16 17:11 | Infectious Disease Progress Nt ---
Progress Note Date of Service Jul 16, 2016. Subjective Pt evaluation today including: conversation w/ patient, physical exam, chart review, lab review, review of studies, conversation w/ wedding consultant, review of inpatient medication list patient much more comfortable today. Less short of breath, no chest pain. Remains afebrile. Blood cultures now growing gram-positive cocci. All Other Systems: Reviewed and Negative Medications Current Inpatient Medications Medications (Trade) Dose Ordered Sig/Edin Route Start Time Stop Time Status Last Admin Dose Admin Ioversol (Optiray 320) 100 ml UD PRN IV 07/15/16 05:15 07/19/16 05:14 Ondansetron HCl (Zofran Inj) 4 mg Q6H PRN IV 07/15/16 06:45 08/14/16 06:44 Aspirin (Ecotrin Tab) 81 mg QAM PO 07/16/16 09:00 08/15/16 08:59 07/16/16 08:08 81 MG Polyethylene (Miralax Powder Packet) 17 gm DAILY PRN PO 07/15/16 06:45 08/14/16 06:44 Insulin Glargine (Lantus Solostar Pen) SEE PROTOCOL DAILY SC 07/15/16 09:00 08/14/16 08:59 Insulin Aspart (novoLOG ASPART) SLIDING SCALE If C... ACHS SC 07/15/16 07:00 08/14/16 06:59 07/16/16 13:09 6 UNITS Glucose (Glucose 40% Gel) 15-30 GRAMS 15 GRAMS... UD PRN PO 07/15/16 06:45 08/14/16 06:44 Glucose (Glucose Chew Tab) 4-8 Tablets 4 Tabl... UD PRN PO 07/15/16 06:45 08/14/16 06:44 Dextrose (Dextrose 50% 50ML Syringe) 25-50ML OF 50% DW IV FOR... UD PRN IV 07/15/16 06:45 08/14/16 06:44 Glucagon (Glucagon Inj) 1 mg UD PRN SQ 07/15/16 06:45 08/14/16 06:44 Miscellaneous Information 1 ea 1 ea UD PRN N/A 07/15/16 07:06 08/14/16 07:05 Piperacillin Sod/ Tazobactam Sod/ Dextrose (Zosyn Iv/D5 100ml) 115 ml @ 28.75 mls/ hr Q12H IV 07/15/16 20:00 07/22/16 19:59 07/16/16 08:09 28.75 MLS/HR Vancomycin HCl (Consult) 1 ea UD PRN N/A 07/15/16 07:15 08/14/16 07:14 Piperacillin Sod/ Tazobactam Sod (Consult) 1 ea UD PRN N/A 07/15/16 07:15 08/14/16 07:14 Ascorbic Acid (Vitamin C Tab) 500 mg MoWeFr@0900 PO 07/17/16 09:00 08/16/16 08:59 Collagenase (Santyl Oint) 1 appln HS EXT 07/15/16 21:00 08/14/16 20:59 07/15/16 22:05 1 APPLN Salmeterol Xinafoate/ Fluticasone (Advair Diskus 250/50 Inh) 1 puff BID INH 07/15/16 21:00 08/14/16 20:59 07/16/16 08:09 1 PUFF Gabapentin (Neurontin Cap) 200 mg Q8 PO 07/15/16 14:00 08/14/16 13:59 07/16/16 14:15 200 MG Lactobacillus Acidophilus (Floranex Tab) 1 tab TID PO 07/15/16 14:00 08/14/16 13:59 07/16/16 13:14 1 TAB Loratadine (Claritin Tab) 10 mg DAILY PO 07/16/16 09:00 08/15/16 08:59 07/16/16 09:31 10 MG Lorazepam (Ativan Tab) 0.5 mg TID PO 07/15/16 14:00 08/14/16 13:59 07/16/16 13:13 0.5 MG Metoprolol Succinate (Toprol Xl Tab) 25 mg DAILY PO 07/16/16 09:00 08/15/16 08:59 07/16/16 08:08 25 MG Oxycodone HCl (Oxycontin Tab) 30 mg Q8 PO 07/15/16 14:00 07/29/16 13:59 07/16/16 13:13 30 MG Senna/Docusate Sodium (Senokot S Tab) 1 tab DAILY PO 07/16/16 09:00 08/15/16 08:59 07/16/16 09:31 1 TAB Cholecalciferol (Vitamin D Tab) 5,000 inter.unit QAM PO 07/16/16 09:00 08/15/16 08:59 07/16/16 08:08 5,000 INTER.UNIT Dexamethasone (Decadron Tab) 2 mg DAILY PO 07/16/16 09:00 08/15/16 08:59 07/16/16 09:31 2 MG Ferrous Sulfate (Feosol Tab) 325 mg QAM PO 07/16/16 09:00 08/15/16 08:59 07/16/16 08:09 325 MG Pantoprazole Sodium (Protonix Tab) 40 mg QAM PO 07/16/16 09:00 08/15/16 08:59 07/16/16 08:07 40 MG Polyethylene (Miralax Powder Packet) 17 gm DAILY PO 07/16/16 09:00 08/15/16 08:59 07/16/16 08:15 17 GM Calcium Acetate (Phoslo Cap) 1,334 mg AC PO 07/15/16 11:00 08/14/16 10:59 07/16/16 17:03 1,334 MG Atorvastatin Calcium 40 mg 40 mg QAM PO 07/16/16 09:00 08/15/16 08:59 07/16/16 09:31 40 MG Heparin Sodium/ Dextrose (Heparin 25,000 Unit/500ml D5W) 500 ml @ 16 mls/hr Q24H PRN IV 07/15/16 19:00 08/14/16 18:59 07/16/16 04:49 16 MLS/HR Albuterol/ Ipratropium (Combivent Respimat Inh) 1 puffs QID INH 07/16/16 17:00 08/15/16 16:59 07/16/16 17:05 1 PUFFS Objective Vital Signs Date Time Temp Pulse Resp B/P Pulse Ox O2 Delivery O2 Flow Rate FiO2 07/16/16 15:20 36.9 90 22 133/80 93 Room Air 07/16/16 12:00 Room Air 07/16/16 11:42 36.9 95 20 135/85 91 Room Air 07/16/16 11:15 82 12 91 Room Air 07/16/16 08:00 Room Air 07/16/16 07:45 36.8 86 20 111/70 93 Room Air 07/16/16 07:32 82 18 91 Room Air 07/16/16 04:05 Room Air 07/16/16 03:31 36.7 74 24 113/73 93 Room Air 07/16/16 00:00 Room Air 07/15/16 23:59 36.9 89 24 125/76 95 Room Air 07/15/16 20:15 37.0 77 18 113/77 95 Nasal Cannula 2.0 07/15/16 20:00 99 Nasal Cannula 2.0 07/15/16 19:30 80 18 99 Nasal Cannula 2.0 Laboratory Results Last 24 Hours Test 07/15/16 19:20 07/15/16 19:58 07/15/16 20:00 07/15/16 20:20 Urine Color YELLOW Urine Appearance CLOUDY Urine pH 5.0 Urine Specific [place] 1.022 Urine Protein 2+ Urine Glucose (UA) NEG Urine Ketones NEG Urine Occult Blood 3+ Urine Nitrite NEG Urine Bilirubin NEG Urine Urobilinogen NEG Urine Leukocyte Esterase MODERATE Urine WBC (Auto) >30 /hpf Urine RBC (Auto) >30 /hpf Urine Hyaline Casts (Auto) 10-30 /lpf Urine Epithelial Cells (Auto) 10-20 /lpf Urine Bacteria (Auto) NEG Urine Crystals CALCIUM OXALATE Urine Pathogenic Casts 1-5 GRANULAR CASTS /lpf Urine Yeast (Auto) Bedside Glucose 160 mg/dl Creatine Kinase MB Ratio Creatine Kinase MB 14.7 ng/ml Troponin I 5.750 ng/ml Test 07/16/16 02:21 07/16/16 05:34 07/16/16 06:39 07/16/16 10:05 Activated Partial Thromboplast Time 37.5 SECONDS 63.3 SECONDS Partial Thromboplastin Ratio 1.4 2.4 White Blood Count 6.76 K/uL Red Blood Count 3.75 M/uL Hemoglobin 10.9 g/dL Hematocrit 33.2 % Mean Corpuscular Volume 88.5 fL Mean Corpuscular Hemoglobin 29.1 pg Mean Corpuscular Hemoglobin Concent 32.8 g/dl Platelet Count 121 K/uL Mean Platelet Volume 9.8 fL Neutrophils (%) (Auto) 75.9 % Lymphocytes (%) (Auto) 11.2 % Monocytes (%) (Auto) 11.5 % Eosinophils (%) (Auto) 0.7 % Basophils (%) (Auto) 0.3 % Neutrophils # (Auto) 5.12 K/uL Lymphocytes # (Auto) 0.76 K/uL Monocytes # (Auto) 0.78 K/uL Eosinophils # (Auto) 0.05 K/uL Basophils # (Auto) 0.02 K/uL RDW Standard Deviation 52.0 fL RDW Coefficient of Variation 16.1 % Immature Granulocyte % (Auto) 0.4 % Immature Granulocyte # (Auto) 0.03 K/uL Erythrocyte Sedimentation Rate 14 mm/hr Sodium Level 136 mmol/L Potassium Level 5.5 mmol/L Chloride Level 97 mmol/L Carbon Dioxide Level 27 mmol/L Anion Gap 12.0 mmol/L Blood Urea Nitrogen 54 mg/dl Creatinine 4.60 mg/dl Est Creatinine Clear Calc Drug Dose 15.1 ml/min Estimated GFR () 15.2 Estimated GFR (Non- 13.1 BUN/Creatinine Ratio 11.7 Random Glucose 99 mg/dl Estimated Average Glucose 126 mg/dl Hemoglobin A1c 6.0 % Calcium Level 8.3 mg/dl Phosphorus Level 5.3 mg/dl Magnesium Level 2.1 mg/dl C-Reactive Protein 5.06 mg/dl Random Vancomycin Level 25.7 mcg/ml Bedside Glucose 96 mg/dl Test 07/16/16 11:04 07/16/16 16:10 Bedside Glucose 121 mg/dl 166 mg/dl Assessment and Plan 56 yo diabetic male with ESRD on dialysis with prior diskitis/vertebral osteomyelitis, MRSA infection of permacath and most recently infected skin ulceration of leg with Pseudomonas now with acute SOB. Blood cultures now growing Gram-positive cocci, not clear whether this is contaminant or true infection. Patient to be continued on current antibiotics pending final culture results. Would obtain follow-up blood cultures.
[2016-07-16] MEDS: COLLAGENASE OINT 30 GM TUBE EXT SCH (22:33)
[2016-07-17] VITALS (20 sets, daily range): BP systolic 85–143; BP diastolic 59–98; PULSE 60–99; TEMP 36.5–37; O2SAT 92–97
[2016-07-17] MEDS: HEPARIN 25,000 UNIT/500ML D5W 500 ML IV PRN (04:15)
[2016-07-17] MEDS: GABAPENTIN 100 MG CAP PO SCH ×3 (05:46→21:38)
[2016-07-17] MEDS: OXYCODONE HCL 15 MG TABCR (OXYCONTIN) PO SCH ×3 (05:46→21:43)
--- NOTE | 2016-07-17 07:34 | Progress Note ---
Internal Med Progress Note Date of Service: Jul 17, 2016. Provider Documentation: SUBJECTIVE: Patient is seen and examined at bedside. States having intermittent cough. Currently getting hemodialysis. Denies any chest pain, SOB, dizziness, palpitations. OBJECTIVE: Vital Signs-as noted below Physical Exam: General Appearance:Moderately built and nourished, no apparent distress, chronically ill appearing Head: normocephalic, Atraumatic Eyes: normal inspection, EOMI, PERRLA Neck: supple, Trachea midline Respiratory/Chest: B/L minimal wheezes, decreased breath sounds Cardiovascular: S1, S2, NSR, No murmur Abdomen/GI:Soft, Non tender, Bowel sounds present Extremities/Musculoskelatal:left AKA. Right LE in bandage Neurologic/Psych:AAOX3, grossly no focal neurological deficits Skin: normal color, warm Lab data as noted below. ASSESSMENT & PLAN: NSTEMI: Elevated troponin EKG: No acute changes. Has chronic incomplete LBBB ECHO: severe LV dysfunction, EF 15-20% Continue IV heparin to complete 48 hours On ASA, statins, beta david H/O presumed ischemic cardiomyopathy Chronic Systolic Heart failure S/P ICD placed in 2014 after syncopal event Patient previously refused diagnostic cardiac cath ECHO in October 2015: LVEF 15-20% on dialysis Bacteremia: Blood cultures: Staph aureus in 2 bottles Continue IV vancomycin and Zosyn ID on board Will need to repeat blood cultures Right Lower Extremity wound: Infection likely related to dialysis and infection of right leg H/O Vertebral Osteomyelitis and diskitis in November 2015: H/O MRSA infection of permanent cath Not a surgical candidate at that time due to comorbidities Continue antibiotics per ID Follow up cultures Appreciate ID help Continue wound care ESRD on HD: Hyperkalemia:5.8 today Planned for HD today Appreciate Nephrology help Anemia of renal failure: Monitor Hb Hb:10.9 today Planned to redose procrit tomorrow by nephrology Acute on chronic hypoxic respiratory failure: On chronic oxygen 2-3 L at home Unclear etiology: likely secondary to comorbidities CTA:No evidence for pulmonary embolus. Healing discitis T12-L1 Currently saturating well on RA Nebs PRN recheck CXR today Check sputum cultures/gram stain PVD: S/P left AKA September 2015 Continue current medications DM II: ISS/Lantus Accu checks DVT Px: On IV heparin Code Status: Full code Disposition: Continue monitoring in Tele PROCEDURES: ECHO: * The left ventricle is moderately dilated. * Ejection Fraction = 20-25%. * There is severe global hypokinesis of the left ventricle. * There is mild mitral regurgitation. * There is moderate tricuspid regurgitation. Vital Signs: Date Time Temp Pulse Resp B/P Pulse Ox O2 Delivery O2 Flow Rate FiO2 07/17/16 10:00 99 121/87 07/17/16 09:45 60 119/98 07/17/16 09:30 82 123/94 07/17/16 09:15 36.7 80 125/84 07/17/16 09:15 80 125/84 07/17/16 08:00 Room Air 07/17/16 07:51 37.0 86 20 109/64 97 07/17/16 04:00 Room Air 07/17/16 03:25 36.9 86 19 124/85 93 Room Air 07/17/16 00:00 Room Air 07/16/16 23:02 37.0 87 22 145/93 94 Room Air 07/16/16 20:00 Room Air 07/16/16 19:53 36.7 82 22 144/84 94 Room Air 07/16/16 16:00 Room Air 07/16/16 15:20 36.9 90 22 133/80 93 Room Air 07/16/16 12:00 Room Air 07/16/16 11:42 36.9 95 20 135/85 91 Room Air 07/16/16 11:15 82 12 91 Room Air Lab Results: Results Past 24 Hours Test 07/16/16 11:04 07/16/16 16:10 07/16/16 20:59 07/17/16 06:30 Range/Units Bedside Glucose 121 166 161 109 70-99 mg/dl Test 07/17/16 06:39 07/17/16 09:39 Range/Units Erythrocyte Sedimentation Rate 20 0-14 mm/hr Sodium Level 131 136-145 mmol/L Potassium Level 5.8 3.5-5.1 mmol/L Chloride Level 93 98-107 mmol/L Carbon Dioxide Level 24 21-32 mmol/L Anion Gap 14.0 3-11 mmol/L Blood Urea Nitrogen 75 7-18 mg/dl Creatinine 5.60 0.60-1.40 mg/dl Est Creatinine Clear Calc Drug Dose 12.5 ml/min Estimated GFR () 12.0 Estimated GFR (Non- 10.4 BUN/Creatinine Ratio 13.4 10-20 Random Glucose 96 70-99 mg/dl Calcium Level 8.8 8.5-10.1 mg/dl C-Reactive Protein 3.22 0-0.29 mg/dl Random Vancomycin Level 21.8 mcg/ml
[2016-07-17] MEDS: PIPERACILL/TAZOBAC IV 3.375 GM in DEXTROSE 5% 100ML 100 ML IV SCH (08:10)
[2016-07-17 08:11] LABS: BUN/CREATININE RATIO 13.4 (10-20); C-REACTIVE PROTEIN 3.22 mg/dl (0-0.29); CALCIUM 8.8 mg/dl (8.5-10.1); CREATININE 5.6 mg/dl (0.60-1.40); POTASSIUM 5.8 mmol/L (3.5-5.1)
[2016-07-17] MEDS: FERROUS SULFATE 325 MG TAB PO SCH (08:11)
[2016-07-17] MEDS: FLUTICASONE/SALMETEROL 250/50 (ADVAIR) 14 PUFF/1 INHALER INH SCH ×2 (08:11→21:37)
[2016-07-17] MEDS: ATORVASTATIN 40 MG TAB PO SCH (08:11)
[2016-07-17] MEDS: ASCORBIC ACID 500 MG TAB PO SCH (08:11)
[2016-07-17] MEDS: CALCIUM ACETATE 667MG GELCAP PO SCH ×3 (08:11→15:52)
[2016-07-17] MEDS: ASPIRIN 81 MG ECTAB PO SCH (08:11)
[2016-07-17] MEDS: LACTOBACILLUS ACIDOPHILUS (FLORANEX) TAB PO SCH ×3 (08:11→21:37)
[2016-07-17] MEDS: LORATADINE 10 MG TAB PO SCH (08:12)
[2016-07-17] MEDS: DEXAMETHASONE 1 MG TAB PO SCH (08:12)
[2016-07-17] MEDS: DOCUSATE SODIUM/SENNA 50/8.6MG TAB PO SCH (08:12)
[2016-07-17] MEDS: PANTOprazole SOD 40 MG TAB PO SCH (08:13)
[2016-07-17] MEDS: CHOLECALCIFEROL 1000 INTER.UNIT TAB PO SCH (08:13)
[2016-07-17] MEDS: IPRATROPIUM BROMIDE/ALBUTEROL respimat INH INH SCH ×4 (08:14→21:37)
[2016-07-17] MEDS: LORAZEPAM 0.5 MG TAB PO SCH ×3 (08:40→21:37)
[2016-07-17] MEDS: INSULIN ASPART 100 UNITS/ML 3 ML PEN SC SCH ×4 (08:53→21:00)
[2016-07-17] MEDS: INSULIN GLARGINE SOLOSTAR 100 UNITS/ML 3 ML PEN SC SCH (08:56)
--- NOTE | 2016-07-17 09:25 | Pharmacy Progress Note ---
Pharmacy Antibiotic Prog Note Date of Service: Jul 17, 2016. Subjective: The patient received vancomycin 500 mg IV x 1 on 07/15/16. He is scheduled for dialysis today. The patient is currently on day # 3 of IV therapy. Objective: Height (Feet): 5 Height (Inches): 5.00 Weight (Kilograms): 76.800 Levels: Item Value Date Time Random Vancomycin Level 14.9 mcg/ml 07/15/16 1410 Random Vancomycin Level 25.7 mcg/ml 07/16/16 0534 Random Vancomycin Level 21.8 mcg/ml 07/17/16 0639 Lab Results (24hrs): Laboratory Tests Test 07/17/16 06:39 BUN/Creatinine Ratio 13.4 Blood Urea Nitrogen 75 mg/dl Creatinine 5.60 mg/dl Micro Results: RUN DATE: 07/17/16 [facility] LAB PAGE 1 RUN TIME: 816 Specimen Inquiry PATIENT: YOUNG DANIELS LOC: [facility] U # : [id number] AGE/SX: 56/M ROOM: E221 REG : 07/15/[address]: Beto Smith MD : [id number] BED: 1 DIS : STATUS: ADM IN TLOC: SPEC #: [id number] CLAUDIA: 07/15/16 STATUS: RES REQ #: [id number] RECD: 07/15/[address] [facility] [address]: Eliseo Pollock PA- C SOURCE: BLOOD ENTR: 07/15/[address] [facility] [address]: Destiney Dao D.O. SPDESC: Delmi Avila ORDERED: BLOOD CULTURE Procedure Result Verified Site BLD CULT Preliminary 07/17/16-816 Organism 1 STAPHYLOCOCCUS AUREUS SENS SENSITIVITY TO FOLLOW SENSITIVITY RESULT INDICATES A METHICILLIN RESISTANT STAPH. AUREUS. PHONED TO SOPHIA YIN AND JAMEY WAGNER () ON 07/17/16 AT 0729 BY Aaron Mcgee. Results were verbalized back to YELITZA. Phoned results to MARIAJOSE DUMONT on 07/15/16 at 0001 by Naheed Sosa. Results were verbalized back to BEVERLY. 1. STAPHYLOCOCCUS AUREUS Target Route Dose RX AB Cost M.I.C. IQ ------ ----- ------ -- ------ -------- - ------ TRIMET/SULFA S <=0.5/ 9.5 * OXACILLIN R * >2 VANCOMYCIN S 2 ERYTHROMYCIN R >4 TETRACYCLINE S <=4 CLINDAMYCIN R >4 DAPTOMYCIN S <=0.5 RIFAMPIN S <=1 S = SENSITIVE I = INTERMEDIATE R = RESISTANT Recent Pertinent Medications: Item Value Date Time Piperacillin Sod/ 120 ml @ 30 mls/hr 07/17/16 1600 Tazobactam Sod Q12H/IV 4.5 gm/Dextrose Assessment & Plan: Mr Daniels is scheduled for dialysis today. His vitals remain stable. Now, both blood cultures are growing MRSA with vancomycin SANJU of 2. I spoke to Aaron from the lab and he will re-run the SANJU manually. These drug levels are: Therapeutic Give vancomycin 500 mg IV x 1 after dialysis today. Goal peak level estimate: between 35 - 40 mcg/mL. Goal trough level estimate: between 15 - 20 mcg/mL (Indication: MRSA bacteremia ). Random level has been ordered for: prior to dialysis. Pharmacy will continue to follow and will adjust dose/frequency as necessary. Thank you
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
--- NOTE | 2016-07-17 10:34 | Dialysis Progress Note ---
Nephrology Dialysis Note Date of Service: Jul 17, 2016. Subjective 56 yo male with esrd with bacteremia and nstemi on heparin drip and appropriate antibiotics. seen on dialysis. bp is low but asymptomatic. Objective Date Time Temp Pulse Resp B/P Pulse Ox O2 Delivery O2 Flow Rate FiO2 07/17/16 10:15 90 89/66 07/17/16 10:00 99 121/87 07/17/16 09:45 60 119/98 07/17/16 09:30 82 123/94 07/17/16 09:15 36.7 80 125/84 07/17/16 09:15 80 125/84 07/17/16 08:00 Room Air 07/17/16 07:51 37.0 86 20 109/64 97 07/17/16 04:00 Room Air 07/17/16 03:25 36.9 86 19 124/85 93 Room Air 07/17/16 00:00 Room Air 07/16/16 23:02 37.0 87 22 145/93 94 Room Air 07/16/16 20:00 Room Air 07/16/16 19:53 36.7 82 22 144/84 94 Room Air 07/16/16 16:00 Room Air 07/16/16 15:20 36.9 90 22 133/80 93 Room Air 07/16/16 12:00 Room Air 07/16/16 11:42 36.9 95 20 135/85 91 Room Air 07/16/16 11:15 82 12 91 Room Air Physical Exam: General-aaox3 Eyes-no scleral icterus ENT-mmm Neck-supple Lungs-basilar rales Heart-regular Abdomen-bs+, soft, nontender Extremities-left aka, +1 edema Neuro-nonfocal Derm-right knee wound -chronic blair Current Inpatient Medications Medications (Trade) Dose Ordered Sig/Edin Route Start Time Stop Time Status Last Admin Dose Admin Ioversol (Optiray 320) 100 ml UD PRN IV 07/15/16 05:15 07/19/16 05:14 Ondansetron HCl (Zofran Inj) 4 mg Q6H PRN IV 07/15/16 06:45 08/14/16 06:44 Aspirin (Ecotrin Tab) 81 mg QAM PO 07/16/16 09:00 08/15/16 08:59 07/17/16 08:11 81 MG Polyethylene (Miralax Powder Packet) 17 gm DAILY PRN PO 07/15/16 06:45 08/14/16 06:44 Insulin Glargine (Lantus Solostar Pen) SEE PROTOCOL DAILY SC 07/15/16 09:00 08/14/16 08:59 Insulin Aspart (novoLOG ASPART) SLIDING SCALE If C... ACHS SC 07/15/16 07:00 08/14/16 06:59 07/17/16 08:53 5 UNITS Glucose (Glucose 40% Gel) 15-30 GRAMS 15 GRAMS... UD PRN PO 07/15/16 06:45 08/14/16 06:44 Glucose (Glucose Chew Tab) 4-8 Tablets 4 Tabl... UD PRN PO 07/15/16 06:45 08/14/16 06:44 Dextrose (Dextrose 50% 50ML Syringe) 25-50ML OF 50% DW IV FOR... UD PRN IV 07/15/16 06:45 08/14/16 06:44 Glucagon (Glucagon Inj) 1 mg UD PRN SQ 07/15/16 06:45 08/14/16 06:44 Miscellaneous Information (Consult Glycemic Management Pharmacy) 1 ea UD PRN N/A 07/15/16 07:06 08/14/16 07:05 Vancomycin HCl (Consult) 1 ea UD PRN N/A 07/15/16 07:15 08/14/16 07:14 Piperacillin Sod/ Tazobactam Sod (Consult) 1 ea UD PRN N/A 07/15/16 07:15 08/14/16 07:14 Ascorbic Acid (Vitamin C Tab) 500 mg MoWeFr@0900 PO 07/17/16 09:00 08/16/16 08:59 07/17/16 08:11 500 MG Collagenase (Santyl Oint) 1 appln HS EXT 07/15/16 21:00 08/14/16 20:59 07/16/16 22:33 1 APPLN Salmeterol Xinafoate/ Fluticasone (Advair Diskus 250/50 Inh) 1 puff BID INH 07/15/16 21:00 08/14/16 20:59 07/17/16 08:11 1 PUFF Gabapentin (Neurontin Cap) 200 mg Q8 PO 07/15/16 14:00 08/14/16 13:59 07/17/16 05:46 200 MG Lactobacillus Acidophilus (Floranex Tab) 1 tab TID PO 07/15/16 14:00 08/14/16 13:59 07/17/16 08:11 1 TAB Loratadine (Claritin Tab) 10 mg DAILY PO 07/16/16 09:00 08/15/16 08:59 07/17/16 08:12 10 MG Lorazepam (Ativan Tab) 0.5 mg TID PO 07/15/16 14:00 08/14/16 13:59 07/17/16 08:40 0.5 MG Metoprolol Succinate (Toprol Xl Tab) 25 mg DAILY PO 07/16/16 09:00 08/15/16 08:59 07/16/16 08:08 25 MG Oxycodone HCl (Oxycontin Tab) 30 mg Q8 PO 07/15/16 14:00 07/29/16 13:59 07/17/16 05:46 30 MG Senna/Docusate Sodium (Senokot S Tab) 1 tab DAILY PO 07/16/16 09:00 08/15/16 08:59 07/17/16 08:12 1 TAB Cholecalciferol (Vitamin D Tab) 5,000 inter.unit QAM PO 07/16/16 09:00 08/15/16 08:59 07/17/16 08:13 5,000 INTER.UNIT Dexamethasone (Decadron Tab) 2 mg DAILY PO 07/16/16 09:00 08/15/16 08:59 07/17/16 08:12 2 MG Ferrous Sulfate (Feosol Tab) 325 mg QAM PO 07/16/16 09:00 08/15/16 08:59 07/17/16 08:11 325 MG Pantoprazole Sodium (Protonix Tab) 40 mg QAM PO 07/16/16 09:00 08/15/16 08:59 07/17/16 08:13 40 MG Polyethylene (Miralax Powder Packet) 17 gm DAILY PO 07/16/16 09:00 08/15/16 08:59 07/16/16 08:15 17 GM Calcium Acetate (Phoslo Cap) 1,334 mg AC PO 07/15/16 11:00 08/14/16 10:59 3/1/17 08:11 1,334 MG Atorvastatin Calcium 40 mg 40 mg QAM PO 07/16/16 09:00 08/15/16 08:59 07/17/16 08:11 40 MG Heparin Sodium/ Dextrose (Heparin 25,000 Unit/500ml D5W) 500 ml @ 16 mls/hr Q24H PRN IV 07/15/16 19:00 08/14/16 18:59 07/17/16 04:15 16 MLS/HR Albuterol/ Ipratropium 1 puffs 1 puffs QID INH 07/16/16 17:00 08/15/16 16:59 07/17/16 08:14 1 PUFFS Piperacillin Sod/ Tazobactam Sod 4.5 gm/Dextrose 120 ml @ 30 mls/hr Q12H IV 07/17/16 16:00 07/22/16 19:59 Vancomycin HCl/ Sodium Chloride (Vancomycin Inj/ Nss 250ml) 260 ml @ 125 mls/hr TODAY@1800 IV 07/17/16 18:00 07/17/16 23:59 Last 24 Hours Test 07/16/16 11:04 07/16/16 16:10 07/16/16 20:59 07/17/16 06:30 Bedside Glucose 121 mg/dl 166 mg/dl 161 mg/dl 109 mg/dl Test 07/17/16 06:39 07/17/16 09:39 Erythrocyte Sedimentation Rate 20 mm/hr Sodium Level 131 mmol/L Potassium Level 5.8 mmol/L Chloride Level 93 mmol/L Carbon Dioxide Level 24 mmol/L Anion Gap 14.0 mmol/L Blood Urea Nitrogen 75 mg/dl Creatinine 5.60 mg/dl Est Creatinine Clear Calc Drug Dose 12.5 ml/min Estimated GFR () 12.0 Estimated GFR (Non- 10.4 BUN/Creatinine Ratio 13.4 Random Glucose 96 mg/dl Calcium Level 8.8 mg/dl C-Reactive Protein 3.22 mg/dl Random Vancomycin Level 21.8 mcg/ml Assessment & Plan ESRD-seen on dialysis. tolerating it well. bp is low but asymptomatic. fluid removal appropriate. decreased breath sounds at bases. Anemia of renal failure-giving procrit on dialysis prn to help keep hg between 10 to 11
[2016-07-17] MEDS: POLYETHYLENE (MIRALAX) 17 GM PACK PO SCH (13:03)
[2016-07-17] MEDS: METOPROLOL SUCC 25MG EXT REL TAB PO SCH (13:04)
--- NOTE | 2016-07-17 13:26 | DIAGNOSTIC IMAGING REPORT ---
CHEST ONE VIEW PORTABLE CLINICAL HISTORY: cough, congestion COMPARISON STUDY: 07/15/2016 FINDINGS: The heart remains enlarged. There is a right internal jugular dual-lumen central venous catheter. There is a left subclavian pacer/defibrillator present. There is no focal pulmonary consolidation. No pleural effusions are visualized.[ IMPRESSION: Cardiomegaly. No acute findings. Electronically signed by: Rajendra Gomez M.D. 07/17/2016 1:25 PM Dictated Date/Time: 07/17/2016 1:24 PM
[2016-07-17] MEDS ORDERED: IMIPENEM/CILASTATIN CONSULT ACTIVE PRN (14:30)
[2016-07-17 14:34] LABS: PARTIAL THROMBOPLASTIN RATIO 1.4
[2016-07-17] MEDS: IMIPENEM/CILASTATIN IV 500 MG in D5W 100ML IV SCH (15:59)
[2016-07-17] MEDS ORDERED: PIPERACILL/TAZOBAC IV 4.5 GM in DEXTROSE 5% 100ML 100 ML IV SCH (16:00)
[2016-07-17] MEDS ORDERED: HEPARIN IV BOLUS 4,000 UNIT in SYRINGE 0 ML IV ONE (16:15)
--- NOTE | 2016-07-17 17:11 | Infectious Disease Progress Nt ---
Progress Note Date of Service Jul 17, 2016. Subjective Pt evaluation today including: conversation w/ patient, physical exam, chart review, lab review, review of studies, conversation w/ managed services consultant, review of inpatient medication list patient feeling much better today. Less short of breath. Blood cultures growing MRSA. All Other Systems: Reviewed and Negative Medications Current Inpatient Medications Medications (Trade) Dose Ordered Sig/Edin Route Start Time Stop Time Status Last Admin Dose Admin Ioversol (Optiray 320) 100 ml UD PRN IV 07/15/16 05:15 07/19/16 05:14 Ondansetron HCl (Zofran Inj) 4 mg Q6H PRN IV 07/15/16 06:45 08/14/16 06:44 Aspirin (Ecotrin Tab) 81 mg QAM PO 07/16/16 09:00 08/15/16 08:59 07/17/16 08:11 81 MG Polyethylene (Miralax Powder Packet) 17 gm DAILY PRN PO 07/15/16 06:45 08/14/16 06:44 Insulin Glargine (Lantus Solostar Pen) SEE PROTOCOL DAILY SC 07/15/16 09:00 08/14/16 08:59 Insulin Aspart (novoLOG ASPART) SLIDING SCALE If C... ACHS SC 07/15/16 07:00 08/14/16 06:59 07/17/16 16:56 9 UNITS Glucose (Glucose 40% Gel) 15-30 GRAMS 15 GRAMS... UD PRN PO 07/15/16 06:45 08/14/16 06:44 Glucose (Glucose Chew Tab) 4-8 Tablets 4 Tabl... UD PRN PO 07/15/16 06:45 08/14/16 06:44 Dextrose (Dextrose 50% 50ML Syringe) 25-50ML OF 50% DW IV FOR... UD PRN IV 07/15/16 06:45 08/14/16 06:44 Glucagon (Glucagon Inj) 1 mg UD PRN SQ 07/15/16 06:45 08/14/16 06:44 Miscellaneous Information (Consult Glycemic Management Pharmacy) 1 ea UD PRN N/A 07/15/16 07:06 08/14/16 07:05 Vancomycin HCl (Consult) 1 ea UD PRN N/A 07/15/16 07:15 08/14/16 07:14 Ascorbic Acid (Vitamin C Tab) 500 mg MoWeFr@0900 PO 07/17/16 09:00 08/16/16 08:59 07/17/16 08:11 500 MG Collagenase (Santyl Oint) 1 appln HS EXT 07/15/16 21:00 08/14/16 20:59 07/16/16 22:33 1 APPLN Salmeterol Xinafoate/ Fluticasone (Advair Diskus 250/50 Inh) 1 puff BID INH 07/15/16 21:00 08/14/16 20:59 07/17/16 08:11 1 PUFF Gabapentin (Neurontin Cap) 200 mg Q8 PO 07/15/16 14:00 08/14/16 13:59 07/17/16 13:37 200 MG Lactobacillus Acidophilus (Floranex Tab) 1 tab TID PO 07/15/16 14:00 08/14/16 13:59 07/17/16 13:37 1 TAB Loratadine (Claritin Tab) 10 mg DAILY PO 07/16/16 09:00 08/15/16 08:59 07/17/16 08:12 10 MG Lorazepam (Ativan Tab) 0.5 mg TID PO 07/15/16 14:00 08/14/16 13:59 07/17/16 13:37 0.5 MG Metoprolol Succinate (Toprol Xl Tab) 25 mg DAILY PO 07/16/16 09:00 08/15/16 08:59 07/17/16 13:04 25 MG Oxycodone HCl (Oxycontin Tab) 30 mg Q8 PO 07/15/16 14:00 07/29/16 13:59 07/17/16 13:37 30 MG Senna/Docusate Sodium (Senokot S Tab) 1 tab DAILY PO 07/16/16 09:00 08/15/16 08:59 07/17/16 08:12 1 TAB Cholecalciferol (Vitamin D Tab) 5,000 inter.unit QAM PO 07/16/16 09:00 08/15/16 08:59 07/17/16 08:13 5,000 INTER.UNIT Dexamethasone (Decadron Tab) 2 mg DAILY PO 07/16/16 09:00 08/15/16 08:59 07/17/16 08:12 2 MG Ferrous Sulfate (Feosol Tab) 325 mg QAM PO 07/16/16 09:00 08/15/16 08:59 07/17/16 08:11 325 MG Pantoprazole Sodium (Protonix Tab) 40 mg QAM PO 07/16/16 09:00 08/15/16 08:59 07/17/16 08:13 40 MG Polyethylene (Miralax Powder Packet) 17 gm DAILY PO 07/16/16 09:00 08/15/16 08:59 07/17/16 13:03 17 GM Calcium Acetate (Phoslo Cap) 1,334 mg AC PO 07/15/16 11:00 08/14/16 10:59 07/17/16 15:52 1,334 MG Atorvastatin Calcium 40 mg 40 mg QAM PO 07/16/16 09:00 08/15/16 08:59 07/17/16 08:11 40 MG Heparin Sodium/ Dextrose (Heparin 25,000 Unit/500ml D5W) 500 ml @ 18 mls/hr Q24H PRN IV 07/15/16 19:00 08/14/16 18:59 07/17/16 04:15 16 MLS/HR Albuterol/ Ipratropium 1 puffs 1 puffs QID INH 07/16/16 17:00 08/15/16 16:59 07/17/16 16:26 1 PUFFS Vancomycin HCl/ Sodium Chloride (Vancomycin Inj/ Nss 250ml) 260 ml @ 125 mls/hr TODAY@1800 IV 07/17/16 18:00 07/17/16 23:59 Imipenem/ Cilastatin Sodium 1 ea 1 ea UD PRN N/A 07/17/16 14:30 08/16/16 14:29 Imipenem/ Cilastatin Sodium/ Dextrose (Primaxin Iv/D5 100ml) 110 ml @ 110 mls/hr Q12H IV 07/17/16 16:00 07/27/16 15:59 07/17/16 15:59 110 MLS/HR Objective Vital Signs Date Time Temp Pulse Resp B/P Pulse Ox O2 Delivery O2 Flow Rate FiO2 07/17/16 16:00 Room Air 07/17/16 15:43 36.6 84 18 129/63 95 07/17/16 13:08 139/84 07/17/16 12:16 36.5 66 143/93 07/17/16 12:16 66 143/93 07/17/16 12:00 80 85/67 07/17/16 12:00 Room Air 07/17/16 11:54 37.0 81 18 121/62 97 07/17/16 11:45 95 94/80 07/17/16 11:30 69 86/59 07/17/16 11:15 67 112/87 07/17/16 11:00 88 122/69 07/17/16 10:45 90 125/74 07/17/16 10:30 89 108/88 07/17/16 10:15 90 89/66 07/17/16 10:00 99 121/87 07/17/16 09:45 60 119/98 07/17/16 09:30 82 123/94 07/17/16 09:15 36.7 80 125/84 07/17/16 09:15 80 125/84 07/17/16 08:00 Room Air 07/17/16 07:51 37.0 86 20 109/64 97 07/17/16 04:00 Room Air 07/17/16 03:25 36.9 86 19 124/85 93 Room Air 07/17/16 00:00 Room Air 07/16/16 23:02 37.0 87 22 145/93 94 Room Air 07/16/16 20:00 Room Air 07/16/16 19:53 36.7 82 22 144/84 94 Room Air Physical Exam General Appearance: WD/WN, no apparent distress Eyes: normal inspection, sclerae normal ENT: normal ENT inspection, pharynx normal Neck: supple, no adenopathy, trachea midline Respiratory/Chest: chest non-tender, no respiratory distress, no accessory muscle use, + rales Cardiovascular: regular rate, rhythm, no gallop, no murmur Abdomen: normal bowel sounds, non tender, soft, no organomegaly Extremities: no calf tenderness, + slow capillary refill Neurologic/Psychiatric: alert, oriented x 3 Skin: normal color, no rash Lymphatic: no adenopathy Laboratory Results RUN DATE: 07/17/16 [facility] LAB PAGE 1 RUN TIME: 1134 Specimen Inquiry PATIENT: YOUNG HINKLE LOC: [facility] U # : [id number] AGE/SX: 56/M ROOM: [facility] REG : 07/15/[address]: Beto Smith MD : 1960 BED: 1 DIS : STATUS: ADM IN TLOC: SPEC #: [id number] CLAUDIA: 07/15/16 STATUS: RES REQ #: [id number] RECD: 07/15/[address]: Eliseo Pollock PA- C SOURCE: BLOOD ENTR: 07/15/16-109 [facility] [address]: Destiney Dao D.O. SPDESC: Delmi Avila ORDERED: BLOOD CULTURE Procedure Result Verified Site BLD CULT Preliminary 07/17/16-1134 Organism 1 STAPHYLOCOCCUS AUREUS SENS SENSITIVITY TO FOLLOW SENSITIVITY RESULT INDICATES A METHICILLIN RESISTANT STAPH. AUREUS. PHONED TO SOPHIA YIN AND JAMEY WAGNER () ON 07/17/16 AT 0729 BY Aaron Mcgee. Results were verbalized back to YELITZA. Phoned results to MARIAJOSE DUMONT on 07/15/16 at 0001 by Naheed Sosa. Results were verbalized back to BEVERLY. 1. STAPHYLOCOCCUS AUREUS Target Route Dose RX AB Cost M.I.C. IQ ------ ----- ------ -- ------ -------- - ------ TRIMET/SULFA S <=0.5/ 9.5 * OXACILLIN R * >2 VANCOMYCIN S 2 ERYTHROMYCIN R >4 TETRACYCLINE S <=4 CLINDAMYCIN R >4 DAPTOMYCIN S <=0.5 RIFAMPIN S <=1 S = SENSITIVE I = INTERMEDIATE R = RESISTANT Last 24 Hours Test 07/16/16 20:59 07/17/16 06:30 07/17/16 06:39 07/17/16 11:10 Bedside Glucose 161 mg/dl 109 mg/dl 116 mg/dl Erythrocyte Sedimentation Rate 20 mm/hr Sodium Level 131 mmol/L Potassium Level 5.8 mmol/L Chloride Level 93 mmol/L Carbon Dioxide Level 24 mmol/L Anion Gap 14.0 mmol/L Blood Urea Nitrogen 75 mg/dl Creatinine 5.60 mg/dl Est Creatinine Clear Calc Drug Dose 12.5 ml/min Estimated GFR () 12.0 Estimated GFR (Non- 10.4 BUN/Creatinine Ratio 13.4 Random Glucose 96 mg/dl Calcium Level 8.8 mg/dl C-Reactive Protein 3.22 mg/dl Random Vancomycin Level 21.8 mcg/ml Test 07/17/16 14:12 07/17/16 16:13 Activated Partial Thromboplast Time 35.7 SECONDS Partial Thromboplastin Ratio 1.4 Bedside Glucose 240 mg/dl CHEST ONE VIEW PORTABLE CLINICAL HISTORY: cough, congestion COMPARISON STUDY: 07/15/2016 FINDINGS: The heart remains enlarged. There is a right internal jugular dual-lumen central venous catheter. There is a left subclavian pacer/defibrillator present. There is no focal pulmonary consolidation. No pleural effusions are visualized.[ IMPRESSION: Cardiomegaly. No acute findings. Electronically signed by: Rajendra Gomez M.D. 07/17/2016 1:25 PM Assessment and Plan 56 yo diabetic male with ESRD on dialysis with prior diskitis/vertebral osteomyelitis, MRSA infection of permacath and most recently infected skin ulceration of leg with Pseudomonas now with acute SOB. Blood cultures now growing MRSA again. ? related to dialysis access. Patient will continue vancomycin, will discuss with nephrology. Will follow.
[2016-07-17] MEDS ORDERED: VANCOMYCIN INJ 500 MG in SODIUM CHLORIDE 0.9% 250ML 250 ML IV SCH (18:00)
[2016-07-17] MEDS: COLLAGENASE OINT 30 GM TUBE EXT SCH (21:37)
[2016-07-17 23:04] LABS: PARTIAL THROMBOPLASTIN RATIO 1.9
[2016-07-18] MEDS: IMIPENEM/CILASTATIN IV 500 MG in D5W 100ML IV SCH ×2 (04:08→15:42)
[2016-07-18 04:21] VITALS: BP 135/89; PULSE 75; TEMP 36.9; O2SAT 98
[2016-07-18] MEDS: GABAPENTIN 100 MG CAP PO SCH ×3 (05:36→20:56)
[2016-07-18] MEDS: OXYCODONE HCL 15 MG TABCR (OXYCONTIN) PO SCH ×3 (05:36→20:56)
--- NOTE | 2016-07-18 06:49 | Nephrology Progress Note ---
Nephrology Progress Note Date of Service: Jul 18, 2016. Subjective 56 yo male with esrd with bacteremia and nstemi on heparin drip. had dialysis yesterday. no complaints. pt does have a cough and feels upper airway congestion. Objective Date Time Temp Pulse Resp B/P Pulse Ox O2 Delivery O2 Flow Rate FiO2 07/18/16 04:21 36.9 75 18 135/89 98 Room Air 07/18/16 04:00 Room Air 07/18/16 00:00 Room Air 07/17/16 23:37 36.9 87 18 125/88 93 Room Air 07/17/16 20:00 Room Air 07/17/16 19:41 37.0 89 16 128/84 92 Room Air 07/17/16 16:00 Room Air 07/17/16 15:43 36.6 84 18 129/63 95 07/17/16 13:08 139/84 07/17/16 12:16 36.5 66 143/93 07/17/16 12:16 66 143/93 07/17/16 12:00 80 85/67 07/17/16 12:00 Room Air 07/17/16 11:54 37.0 81 18 121/62 97 07/17/16 11:45 95 94/80 07/17/16 11:30 69 86/59 07/17/16 11:15 67 112/87 07/17/16 11:00 88 122/69 07/17/16 10:45 90 125/74 07/17/16 10:30 89 108/88 07/17/16 10:15 90 89/66 07/17/16 10:00 99 121/87 07/17/16 09:45 60 119/98 07/17/16 09:30 82 123/94 07/17/16 09:15 36.7 80 125/84 07/17/16 09:15 80 125/84 07/17/16 08:00 Room Air 07/17/16 07:51 37.0 86 20 109/64 97 Physical Exam: General-aaox3 Eyes-no scleral icterus ENT-mmm Neck-supple Lungs-decreased at bases Heart-rrr Abdomen-bs+, soft, nontender Extremities-left aka, mild edema Neuro-nonfocal Derm-right knee wound-wrapped -chronic blair Current Inpatient Medications Medications (Trade) Dose Ordered Sig/Edin Route Start Time Stop Time Status Last Admin Dose Admin Ioversol (Optiray 320) 100 ml UD PRN IV 07/15/16 05:15 07/19/16 05:14 Ondansetron HCl (Zofran Inj) 4 mg Q6H PRN IV 07/15/16 06:45 08/14/16 06:44 Aspirin (Ecotrin Tab) 81 mg QAM PO 07/16/16 09:00 08/15/16 08:59 07/17/16 08:11 81 MG Polyethylene (Miralax Powder Packet) 17 gm DAILY PRN PO 07/15/16 06:45 08/14/16 06:44 Insulin Glargine (Lantus Solostar Pen) SEE PROTOCOL DAILY SC 07/15/16 09:00 08/14/16 08:59 Insulin Aspart (novoLOG ASPART) SLIDING SCALE If C... ACHS SC 07/15/16 07:00 08/14/16 06:59 07/17/16 16:56 9 UNITS Glucose (Glucose 40% Gel) 15-30 GRAMS 15 GRAMS... UD PRN PO 07/15/16 06:45 08/14/16 06:44 Glucose (Glucose Chew Tab) 4-8 Tablets 4 Tabl... UD PRN PO 07/15/16 06:45 08/14/16 06:44 Dextrose (Dextrose 50% 50ML Syringe) 25-50ML OF 50% DW IV FOR... UD PRN IV 07/15/16 06:45 08/14/16 06:44 Glucagon (Glucagon Inj) 1 mg UD PRN SQ 07/15/16 06:45 08/14/16 06:44 Miscellaneous Information (Consult Glycemic Management Pharmacy) 1 ea UD PRN N/A 07/15/16 07:06 08/14/16 07:05 Vancomycin HCl (Consult) 1 ea UD PRN N/A 07/15/16 07:15 08/14/16 07:14 Ascorbic Acid (Vitamin C Tab) 500 mg MoWeFr@0900 PO 07/17/16 09:00 08/16/16 08:59 07/17/16 08:11 500 MG Collagenase (Santyl Oint) 1 appln HS EXT 07/15/16 21:00 08/14/16 20:59 3/1/17 21:37 1 APPLN Salmeterol Xinafoate/ Fluticasone (Advair Diskus 250/50 Inh) 1 puff BID INH 07/15/16 21:00 08/14/16 20:59 07/17/16 21:37 1 PUFF Gabapentin (Neurontin Cap) 200 mg Q8 PO 07/15/16 14:00 08/14/16 13:59 07/18/16 05:36 200 MG Lactobacillus Acidophilus (Floranex Tab) 1 tab TID PO 07/15/16 14:00 08/14/16 13:59 07/17/16 21:37 1 TAB Loratadine (Claritin Tab) 10 mg DAILY PO 07/16/16 09:00 08/15/16 08:59 07/17/16 08:12 10 MG Lorazepam (Ativan Tab) 0.5 mg TID PO 07/15/16 14:00 08/14/16 13:59 07/17/16 21:37 0.5 MG Metoprolol Succinate (Toprol Xl Tab) 25 mg DAILY PO 07/16/16 09:00 08/15/16 08:59 07/17/16 13:04 25 MG Oxycodone HCl (Oxycontin Tab) 30 mg Q8 PO 07/15/16 14:00 07/29/16 13:59 07/18/16 05:36 30 MG Senna/Docusate Sodium (Senokot S Tab) 1 tab DAILY PO 07/16/16 09:00 08/15/16 08:59 07/17/16 08:12 1 TAB Cholecalciferol (Vitamin D Tab) 5,000 inter.unit QAM PO 07/16/16 09:00 08/15/16 08:59 07/17/16 08:13 5,000 INTER.UNIT Dexamethasone (Decadron Tab) 2 mg DAILY PO 07/16/16 09:00 08/15/16 08:59 07/17/16 08:12 2 MG Ferrous Sulfate (Feosol Tab) 325 mg QAM PO 07/16/16 09:00 08/15/16 08:59 07/17/16 08:11 325 MG Pantoprazole Sodium (Protonix Tab) 40 mg QAM PO 07/16/16 09:00 08/15/16 08:59 07/17/16 08:13 40 MG Polyethylene (Miralax Powder Packet) 17 gm DAILY PO 07/16/16 09:00 08/15/16 08:59 07/17/16 13:03 17 GM Calcium Acetate (Phoslo Cap) 1,334 mg AC PO 07/15/16 11:00 08/14/16 10:59 07/17/16 15:52 1,334 MG Atorvastatin Calcium 40 mg 40 mg QAM PO 07/16/16 09:00 08/15/16 08:59 07/17/16 08:11 40 MG Heparin Sodium/ Dextrose (Heparin 25,000 Unit/500ml D5W) 500 ml @ 18 mls/hr Q24H PRN IV 07/15/16 19:00 08/14/16 18:59 07/17/16 04:15 16 MLS/HR Albuterol/ Ipratropium (Combivent Respimat Inh) 1 puffs QID INH 07/16/16 17:00 08/15/16 16:59 07/17/16 21:37 1 PUFFS Imipenem/ Cilastatin Sodium 1 ea 1 ea UD PRN N/A 07/17/16 14:30 08/16/16 14:29 Imipenem/ Cilastatin Sodium/ Dextrose (Primaxin Iv/D5 100ml) 110 ml @ 110 mls/hr Q12H IV 07/17/16 16:00 07/27/16 15:59 07/18/16 04:08 110 MLS/HR Last 24 Hours Test 07/17/16 11:10 07/17/16 14:12 07/17/16 16:13 07/17/16 20:46 Bedside Glucose 116 mg/dl 240 mg/dl 96 mg/dl Activated Partial Thromboplast Time 35.7 SECONDS Partial Thromboplastin Ratio 1.4 Test 07/17/16 22:20 07/18/16 04:44 Activated Partial Thromboplast Time 50.0 SECONDS Partial Thromboplastin Ratio 1.9 Assessment & Plan ESRD-for dialysis again tomorrow. no indication for dialysis today. Anemia of renal failure-giving procrit on dialysis prn to help keep hg between 10 to 11 ANNA-on phoslo and will follow phos levels intermittently in the hospital. ID-currently on imipenem. urine culture negative. blood cultures are positive. has wound on right knee which grew pseudomonas in the past. hx of previous osteo of the spine. 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 catheter non-tender with no drainage. would prefer to try to treat through infection and keep catheter in place. question if able to choose antibiotic which we would be able to give at the dialysis unit and if blood cultures continue to be positive- then plan on removing line. however, will discuss with ID to see what the best option would be.
[2016-07-18] MEDS: INSULIN ASPART 100 UNITS/ML 3 ML PEN SC SCH ×4 (07:00→20:53)
[2016-07-18] MEDS: INSULIN GLARGINE SOLOSTAR 100 UNITS/ML 3 ML PEN SC SCH (07:29)
[2016-07-18 07:41] VITALS: BP 127/85; PULSE 80; TEMP 36.7; O2SAT 96
[2016-07-18 08:13] LABS: MEAN CELL VOLUME 90.2 fL (80-100); MEAN CORPUSCULAR HEMOGLOBIN 29.1 pg (25-34); MEAN CORPUSCULAR HGB CONC 32.3 g/dl (32-36); MEAN PLATELET VOLUME 9.5 fL (7.4-10.4); PLATELET COUNT 143 K/uL (130-400); RED BLOOD COUNT 3.88 M/uL (4.7-6.1); WHITE BLOOD COUNT 6.06 K/uL (4.8-10.8)
[2016-07-18] MEDS: LORAZEPAM 0.5 MG TAB PO SCH ×3 (08:13→20:56)
[2016-07-18] MEDS: FLUTICASONE/SALMETEROL 250/50 (ADVAIR) 14 PUFF/1 INHALER INH SCH ×2 (08:13→20:55)
[2016-07-18] MEDS: DEXAMETHASONE 1 MG TAB PO SCH (08:14)
[2016-07-18] MEDS: CHOLECALCIFEROL 1000 INTER.UNIT TAB PO SCH (08:14)
[2016-07-18] MEDS: DOCUSATE SODIUM/SENNA 50/8.6MG TAB PO SCH (08:15)
[2016-07-18] MEDS: LORATADINE 10 MG TAB PO SCH (08:15)
[2016-07-18] MEDS: FERROUS SULFATE 325 MG TAB PO SCH (08:15)
[2016-07-18] MEDS: METOPROLOL SUCC 25MG EXT REL TAB PO SCH (08:15)
[2016-07-18] MEDS: LACTOBACILLUS ACIDOPHILUS (FLORANEX) TAB PO SCH ×3 (08:15→20:56)
[2016-07-18] MEDS: ASPIRIN 81 MG ECTAB PO SCH (08:15)
[2016-07-18] MEDS: CALCIUM ACETATE 667MG GELCAP PO SCH ×3 (08:15→15:26)
[2016-07-18] MEDS: ATORVASTATIN 40 MG TAB PO SCH (08:16)
[2016-07-18] MEDS: PANTOprazole SOD 40 MG TAB PO SCH (08:16)
[2016-07-18] MEDS: POLYETHYLENE (MIRALAX) 17 GM PACK PO SCH (08:16)
[2016-07-18] MEDS: IPRATROPIUM BROMIDE/ALBUTEROL respimat INH INH SCH ×4 (08:17→20:55)
[2016-07-18 08:21] LABS: PARTIAL THROMBOPLASTIN RATIO 1.7
[2016-07-18 08:49] LABS: BUN/CREATININE RATIO 10.8 (10-20); C-REACTIVE PROTEIN 1.81 mg/dl (0-0.29); CALCIUM 8.6 mg/dl (8.5-10.1); CREATININE 4.3 mg/dl (0.60-1.40); POTASSIUM 4.7 mmol/L (3.5-5.1)
[2016-07-18] MEDS ORDERED: HEPARIN IV BOLUS 2,000 UNIT in SYRINGE 0 ML IV ONE (09:30)
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
--- NOTE | 2016-07-18 11:47 | Pharmacy Progress Note ---
Glycemic Control: Progress Nt Date of Service Jul 18, 2016. Scope Glycemic Pharmacist consulted by Dr Hussein on 07/15/16 for glycemic control and to write orders per [facility] inpatient glycemic control protocol. Objective Accuchecks BSG (last 24hrs): Test 07/17/16 16:13 07/17/16 20:46 07/18/16 06:48 07/18/16 08:00 Bedside Glucose 240 mg/dl (70-99) 96 mg/dl (70-99) 92 mg/dl (70-99) Random Glucose 88 mg/dl (70-99) Laboratory Data (last 24hrs) Test 07/18/16 08:00 Anion Gap 12.0 mmol/L BUN/Creatinine Ratio 10.8 Blood Urea Nitrogen 47 mg/dl Creatinine 4.30 mg/dl Potassium Level 4.7 mmol/L Sodium Level 133 mmol/L White Blood Count 6.06 K/uL HbA1c: Test 07/16/16 05:34 Hemoglobin A1c 6.0 % (4.5-5.6) H Recent Pertinent Medications Outpatient Anti-diabetic Regimen: * Novolog per sliding scale * Lantus 5 units BID * A1c = 6 % 07/16/16 (interpret w/ caution given ESRD) The patient is currently receiving: * Basal insulin: Lantus 0-8 units every 12 hours per sliding scale; pt has received no basal insulin since admission however * Correctional Insulin: Novolog Correction per scale ACHS Goal Range: Low 140 mg/dL - High 180 mg/dL Correction Factor: 30 mg/dL/unit * Prandial insulin: Per carb ratio of 1 unit per 10 grams CHO consumed * Oral Agents: None currently Risk Factors for Insulin Resistance: * Steroids: Dexamethasone 2mg PO daily * Infection: receiving Vancomycin + Primaxin for prior diskitis/vertebral osteomyelitis, MRSA infection of permacath and infected skin ulceration of leg; MRSA bacteremia * IVF: Heparin gtt mixed in D5W * Diet: ordered T2DM / Renal diet and he appears to be tolerating well per carb counts Assessment & Plan ASSESSMENT: 07/18/16 * Glycemic control has been acceptable over the last 3 days. Only 1 BSG > 180 in the past 3 days. All fasting BSGs at goal. * He has not been receiving basal insulin and it does not appear that he would require basal; fasting BSGs have been 92-109 the past 3 days * Post prandial BSGs have been well controlled with current Novolog CF and CR * No changes have been made to the insulin regimen over the last 3 days. He appears well controlled with the current insulin orders. Will sign off on this case at this time. PLAN FOR INPATIENT GLYCEMIC CONTROL: * No basal insulin required at this time * Continuing correction factor of 30 mg/dl/unit * Continuing carb ratio of 1 unit per 10 grams CHO consumed * Continuing goal range of Low 140 mg/dL - High 180 mg/dL * Pharmacy will sign-off at this time, however we will be glad to resume management of this patient if glycemic control changes. Please consult our service again if assistance is needed. * Please note that the plan above was derived based on current level of insulin resistance and hospital stress. These recommendations are appropriate for inpatient admission only. Plan of care upon discharge will need to be reassessed to avoid potential outpatient hypo/hyperglycemia. Thank you.
[2016-07-18 12:00] VITALS: BP 118/82; PULSE 88; TEMP 36.5; O2SAT 93
[2016-07-18] MEDS: HEPARIN 25,000 UNIT/500ML D5W 500 ML IV PRN (13:26)
--- NOTE | 2016-07-18 14:17 | Infectious Disease Progress Nt ---
Progress Note Date of Service Jul 18, 2016. Subjective Pt evaluation today including: conversation w/ patient, physical exam, chart review, lab review, review of studies, conversation w/ [employer] consultant, review of inpatient medication list Patient feeling somewhat better today. Breathing has improved. No fever. Blood cultures positive for MRSA. All Other Systems: Reviewed and Negative Medications Current Inpatient Medications Medications (Trade) Dose Ordered Sig/Edin Route Start Time Stop Time Status Last Admin Dose Admin Ioversol (Optiray 320) 100 ml UD PRN IV 07/15/16 05:15 07/19/16 05:14 Ondansetron HCl (Zofran Inj) 4 mg Q6H PRN IV 07/15/16 06:45 08/14/16 06:44 Aspirin (Ecotrin Tab) 81 mg QAM PO 07/16/16 09:00 08/15/16 08:59 07/18/16 08:15 81 MG Polyethylene (Miralax Powder Packet) 17 gm DAILY PRN PO 07/15/16 06:45 08/14/16 06:44 Insulin Aspart (novoLOG ASPART) SLIDING SCALE If C... ACHS SC 07/15/16 07:00 08/14/16 06:59 07/18/16 12:56 5 UNITS Glucose (Glucose 40% Gel) 15-30 GRAMS 15 GRAMS... UD PRN PO 07/15/16 06:45 08/14/16 06:44 Glucose (Glucose Chew Tab) 4-8 Tablets 4 Tabl... UD PRN PO 07/15/16 06:45 08/14/16 06:44 Dextrose (Dextrose 50% 50ML Syringe) 25-50ML OF 50% DW IV FOR... UD PRN IV 07/15/16 06:45 08/14/16 06:44 Glucagon (Glucagon Inj) 1 mg UD PRN SQ 07/15/16 06:45 08/14/16 06:44 Vancomycin HCl (Consult) 1 ea UD PRN N/A 07/15/16 07:15 08/14/16 07:14 Ascorbic Acid (Vitamin C Tab) 500 mg MoWeFr@0900 PO 07/17/16 09:00 08/16/16 08:59 07/17/16 08:11 500 MG Collagenase (Santyl Oint) 1 appln HS EXT 07/15/16 21:00 08/14/16 20:59 07/17/16 21:37 1 APPLN Salmeterol Xinafoate/ Fluticasone (Advair Diskus 250/50 Inh) 1 puff BID INH 07/15/16 21:00 08/14/16 20:59 07/18/16 08:13 1 PUFF Gabapentin (Neurontin Cap) 200 mg Q8 PO 07/15/16 14:00 08/14/16 13:59 07/18/16 08:14 200 MG Lactobacillus Acidophilus (Floranex Tab) 1 tab TID PO 07/15/16 14:00 08/14/16 13:59 07/18/16 08:15 1 TAB Loratadine (Claritin Tab) 10 mg DAILY PO 07/16/16 09:00 08/15/16 08:59 07/18/16 08:15 10 MG Lorazepam (Ativan Tab) 0.5 mg TID PO 07/15/16 14:00 08/14/16 13:59 07/18/16 08:13 0.5 MG Metoprolol Succinate (Toprol Xl Tab) 25 mg DAILY PO 07/16/16 09:00 08/15/16 08:59 07/18/16 08:15 25 MG Oxycodone HCl (Oxycontin Tab) 30 mg Q8 PO 07/15/16 14:00 07/29/16 13:59 07/18/16 05:36 30 MG Senna/Docusate Sodium (Senokot S Tab) 1 tab DAILY PO 07/16/16 09:00 08/15/16 08:59 07/18/16 08:15 1 TAB Cholecalciferol (Vitamin D Tab) 5,000 inter.unit QAM PO 07/16/16 09:00 08/15/16 08:59 07/18/16 08:14 5,000 INTER.UNIT Dexamethasone (Decadron Tab) 2 mg DAILY PO 07/16/16 09:00 08/15/16 08:59 07/18/16 08:14 2 MG Ferrous Sulfate (Feosol Tab) 325 mg QAM PO 07/16/16 09:00 08/15/16 08:59 07/18/16 08:15 325 MG Pantoprazole Sodium (Protonix Tab) 40 mg QAM PO 07/16/16 09:00 08/15/16 08:59 07/18/16 08:16 40 MG Polyethylene (Miralax Powder Packet) 17 gm DAILY PO 07/16/16 09:00 08/15/16 08:59 07/18/16 08:16 17 GM Calcium Acetate (Phoslo Cap) 1,334 mg AC PO 07/15/16 11:00 08/14/16 10:59 07/18/16 12:54 1,334 MG Atorvastatin Calcium 40 mg 40 mg QAM PO 07/16/16 09:00 08/15/16 08:59 07/18/16 08:16 40 MG Heparin Sodium/ Dextrose (Heparin 25,000 Unit/500ml D5W) 500 ml @ 19 mls/hr Q24H PRN IV 07/15/16 19:00 08/14/16 18:59 07/18/16 13:26 19 MLS/HR Albuterol/ Ipratropium (Combivent Respimat Inh) 1 puffs QID INH 07/16/16 17:00 08/15/16 16:59 07/18/16 12:57 1 PUFFS Imipenem/ Cilastatin Sodium 1 ea 1 ea UD PRN N/A 07/17/16 14:30 08/16/16 14:29 Imipenem/ Cilastatin Sodium/ Dextrose (Primaxin Iv/D5 100ml) 110 ml @ 110 mls/hr Q12H IV 07/17/16 16:00 07/27/16 15:59 07/18/16 04:08 110 MLS/HR Objective Vital Signs Date Time Temp Pulse Resp B/P Pulse Ox O2 Delivery O2 Flow Rate FiO2 07/18/16 12:00 36.5 88 18 118/82 93 Room Air 07/18/16 12:00 Room Air 07/18/16 08:00 Room Air 07/18/16 07:41 36.7 80 20 127/85 96 Room Air 07/18/16 04:21 36.9 75 18 135/89 98 Room Air 07/18/16 04:00 Room Air 07/18/16 00:00 Room Air 07/17/16 23:37 36.9 87 18 125/88 93 Room Air 07/17/16 20:00 Room Air 07/17/16 19:41 37.0 89 16 128/84 92 Room Air 07/17/16 16:00 Room Air 07/17/16 15:43 36.6 84 18 129/63 95 Physical Exam General Appearance: WD/WN, no apparent distress Eyes: normal inspection, sclerae normal ENT: normal ENT inspection, pharynx normal Neck: supple, no adenopathy, trachea midline Respiratory/Chest: chest non-tender, no respiratory distress, no accessory muscle use, + rales Cardiovascular: regular rate, rhythm, no gallop, no murmur Abdomen: normal bowel sounds, non tender, soft, no organomegaly Extremities: non-tender, no calf tenderness, + inflammation Neurologic/Psychiatric: alert, oriented x 3 Skin: normal color, no rash, + pertinent finding (right knee wound improved) Lymphatic: no adenopathy Laboratory Results Date/Time Source Procedure Growth Status 07/18/16 08:02 Blood Blood Culture Pending Received Last 24 Hours Test 07/17/16 16:13 07/17/16 20:46 07/17/16 22:20 07/18/16 06:48 Bedside Glucose 240 mg/dl 96 mg/dl 92 mg/dl Activated Partial Thromboplast Time 50.0 SECONDS Partial Thromboplastin Ratio 1.9 Test 07/18/16 08:00 07/18/16 11:59 White Blood Count 6.06 K/uL Red Blood Count 3.88 M/uL Hemoglobin 11.3 g/dL Hematocrit 35.0 % Mean Corpuscular Volume 90.2 fL Mean Corpuscular Hemoglobin 29.1 pg Mean Corpuscular Hemoglobin Concent 32.3 g/dl RDW Standard Deviation 50.8 fL RDW Coefficient of Variation 15.4 % Platelet Count 143 K/uL Mean Platelet Volume 9.5 fL Erythrocyte Sedimentation Rate 16 mm/hr Activated Partial Thromboplast Time 43.5 SECONDS Partial Thromboplastin Ratio 1.7 Sodium Level 133 mmol/L Potassium Level 4.7 mmol/L Chloride Level 96 mmol/L Carbon Dioxide Level 25 mmol/L Anion Gap 12.0 mmol/L Blood Urea Nitrogen 47 mg/dl Creatinine 4.30 mg/dl Est Creatinine Clear Calc Drug Dose 16.5 ml/min Estimated GFR () 16.5 Estimated GFR (Non- 14.3 BUN/Creatinine Ratio 10.8 Random Glucose 88 mg/dl Calcium Level 8.6 mg/dl C-Reactive Protein 1.81 mg/dl Bedside Glucose 246 mg/dl CHEST ONE VIEW PORTABLE CLINICAL HISTORY: cough, congestion COMPARISON STUDY: 07/15/2016 FINDINGS: The heart remains enlarged. There is a right internal jugular dual-lumen central venous catheter. There is a left subclavian pacer/defibrillator present. There is no focal pulmonary consolidation. No pleural effusions are visualized.[ IMPRESSION: Cardiomegaly. No acute findings. Electronically signed by: Rajendra Gomez M.D. 07/17/2016 1:25 PM Dictated Date/Time: 07/17/2016 1:24 PM Assessment and Plan 56 yo diabetic male with ESRD on dialysis with prior diskitis/vertebral osteomyelitis, MRSA infection of permacath and most recently infected skin ulceration of leg with Pseudomonas now with acute SOB. Blood cultures now growing MRSA again. ? related to dialysis access. Patient will continue vancomycin, will discuss with nephrology. Will follow.
[2016-07-18 15:55] LABS: PARTIAL THROMBOPLASTIN RATIO 1.9
[2016-07-18 16:00] VITALS: BP 116/76; PULSE 79; TEMP 36.6; O2SAT 96
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
[2016-07-18 18:56] VITALS: BP 129/89; PULSE 78; TEMP 36.6; O2SAT 95
[2016-07-18] MEDS: COLLAGENASE OINT 30 GM TUBE EXT SCH (20:56)
[2016-07-19] VITALS (22 sets, daily range): BP systolic 71–144; BP diastolic 55–97; PULSE 40–89; TEMP 36.4–36.8; O2SAT 92–95
[2016-07-19] MEDS: IMIPENEM/CILASTATIN IV 500 MG in D5W 100ML IV SCH ×2 (04:37→19:43)
[2016-07-19] MEDS: OXYCODONE HCL 15 MG TABCR (OXYCONTIN) PO SCH ×3 (05:45→21:07)
[2016-07-19] MEDS: GABAPENTIN 100 MG CAP PO SCH ×3 (05:45→21:08)
[2016-07-19] MEDS ORDERED: EPOETIN ALFA 10,000 UNITS/ML VIAL IV. SCH (07:00)
--- NOTE | 2016-07-19 07:03 | Nephrology Progress Note ---
Nephrology Progress Note Date of Service: Jul 19, 2016. Subjective 56 yo unfortunate male with esrd with mrsa bacteremia and nstemi on heparin drip. for dialysis today. pt depressed over his hospitilization but overall feels the same as he usually does. Objective Date Time Temp Pulse Resp B/P Pulse Ox O2 Delivery O2 Flow Rate FiO2 07/19/16 04:22 36.6 72 18 136/97 95 Room Air 07/19/16 04:00 Room Air 07/19/16 00:14 36.8 76 18 132/91 92 Room Air 07/19/16 00:00 Room Air 07/18/16 20:00 Room Air 07/18/16 18:56 36.6 78 18 129/89 95 Room Air 07/18/16 16:00 Room Air 07/18/16 16:00 36.6 79 18 116/76 96 Room Air 07/18/16 15:52 Room Air 07/18/16 12:00 36.5 88 18 118/82 93 Room Air 07/18/16 12:00 Room Air 07/18/16 08:00 Room Air 07/18/16 07:41 36.7 80 20 127/85 96 Room Air Physical Exam: General-aaox3 Eyes-no scleral icterus ENT-mmm Neck-supple Lungs-+end expiratory wheeze, +rhonchi Heart-regular Abdomen-bs+, soft, nontender Extremities-left aka, no edema Neuro-nonfocal Derm-right knee wound-wrapped -chronic blair Current Inpatient Medications Medications (Trade) Dose Ordered Sig/Edin Route Start Time Stop Time Status Last Admin Dose Admin Ondansetron HCl (Zofran Inj) 4 mg Q6H PRN IV 07/15/16 06:45 08/14/16 06:44 Aspirin (Ecotrin Tab) 81 mg QAM PO 07/16/16 09:00 08/15/16 08:59 07/18/16 08:15 81 MG Polyethylene (Miralax Powder Packet) 17 gm DAILY PRN PO 07/15/16 06:45 08/14/16 06:44 Insulin Aspart (novoLOG ASPART) SLIDING SCALE If C... ACHS SC 07/15/16 07:00 08/14/16 06:59 07/18/16 17:37 5 UNITS Glucose (Glucose 40% Gel) 15-30 GRAMS 15 GRAMS... UD PRN PO 07/15/16 06:45 08/14/16 06:44 Glucose (Glucose Chew Tab) 4-8 Tablets 4 Tabl... UD PRN PO 07/15/16 06:45 08/14/16 06:44 Dextrose (Dextrose 50% 50ML Syringe) 25-50ML OF 50% DW IV FOR... UD PRN IV 07/15/16 06:45 08/14/16 06:44 Glucagon (Glucagon Inj) 1 mg UD PRN SQ 07/15/16 06:45 08/14/16 06:44 Vancomycin HCl (Consult) 1 ea UD PRN N/A 07/15/16 07:15 08/14/16 07:14 Ascorbic Acid (Vitamin C Tab) 500 mg MoWeFr@0900 PO 07/17/16 09:00 08/16/16 08:59 07/17/16 08:11 500 MG Collagenase (Santyl Oint) 1 appln HS EXT 07/15/16 21:00 08/14/16 20:59 07/18/16 20:56 1 APPLN Salmeterol Xinafoate/ Fluticasone (Advair Diskus 250/50 Inh) 1 puff BID INH 07/15/16 21:00 08/14/16 20:59 07/18/16 20:55 1 PUFF Gabapentin (Neurontin Cap) 200 mg Q8 PO 07/15/16 14:00 08/14/16 13:59 07/19/16 05:45 200 MG Lactobacillus Acidophilus (Floranex Tab) 1 tab TID PO 07/15/16 14:00 08/14/16 13:59 07/18/16 20:56 1 TAB Loratadine (Claritin Tab) 10 mg DAILY PO 07/16/16 09:00 08/15/16 08:59 07/18/16 08:15 10 MG Lorazepam (Ativan Tab) 0.5 mg TID PO 07/15/16 14:00 08/14/16 13:59 07/18/16 20:56 0.5 MG Metoprolol Succinate (Toprol Xl Tab) 25 mg DAILY PO 07/16/16 09:00 08/15/16 08:59 07/18/16 08:15 25 MG Oxycodone HCl (Oxycontin Tab) 30 mg Q8 PO 07/15/16 14:00 07/29/16 13:59 07/19/16 05:45 30 MG Senna/Docusate Sodium (Senokot S Tab) 1 tab DAILY PO 07/16/16 09:00 08/15/16 08:59 07/18/16 08:15 1 TAB Cholecalciferol (Vitamin D Tab) 5,000 inter.unit QAM PO 07/16/16 09:00 08/15/16 08:59 07/18/16 08:14 5,000 INTER.UNIT Dexamethasone (Decadron Tab) 2 mg DAILY PO 07/16/16 09:00 08/15/16 08:59 07/18/16 08:14 2 MG Ferrous Sulfate (Feosol Tab) 325 mg QAM PO 07/16/16 09:00 08/15/16 08:59 07/18/16 08:15 325 MG Pantoprazole Sodium (Protonix Tab) 40 mg QAM PO 07/16/16 09:00 08/15/16 08:59 07/18/16 08:16 40 MG Polyethylene (Miralax Powder Packet) 17 gm DAILY PO 07/16/16 09:00 08/15/16 08:59 07/18/16 08:16 17 GM Calcium Acetate (Phoslo Cap) 1,334 mg AC PO 07/15/16 11:00 08/14/16 10:59 07/18/16 15:26 1,334 MG Atorvastatin Calcium 40 mg 40 mg QAM PO 07/16/16 09:00 08/15/16 08:59 07/18/16 08:16 40 MG Heparin Sodium/ Dextrose (Heparin 25,000 Unit/500ml D5W) 500 ml @ 19 mls/hr Q24H PRN IV 07/15/16 19:00 08/14/16 18:59 07/18/16 13:26 19 MLS/HR Albuterol/ Ipratropium (Combivent Respimat Inh) 1 puffs QID INH 07/16/16 17:00 08/15/16 16:59 07/18/16 20:55 1 PUFFS Imipenem/ Cilastatin Sodium 1 ea 1 ea UD PRN N/A 07/17/16 14:30 08/16/16 14:29 Imipenem/ Cilastatin Sodium/ Dextrose (Primaxin Iv/D5 100ml) 110 ml @ 110 mls/hr Q12H IV 07/17/16 16:00 07/27/16 15:59 07/19/16 04:37 110 MLS/HR Last 24 Hours Test 07/18/16 08:00 07/18/16 11:59 07/18/16 15:25 07/18/16 15:56 White Blood Count 6.06 K/uL Red Blood Count 3.88 M/uL Hemoglobin 11.3 g/dL Hematocrit 35.0 % Mean Corpuscular Volume 90.2 fL Mean Corpuscular Hemoglobin 29.1 pg Mean Corpuscular Hemoglobin Concent 32.3 g/dl RDW Standard Deviation 50.8 fL RDW Coefficient of Variation 15.4 % Platelet Count 143 K/uL Mean Platelet Volume 9.5 fL Erythrocyte Sedimentation Rate 16 mm/hr Activated Partial Thromboplast Time 43.5 SECONDS 48.1 SECONDS Partial Thromboplastin Ratio 1.7 1.9 Sodium Level 133 mmol/L Potassium Level 4.7 mmol/L Chloride Level 96 mmol/L Carbon Dioxide Level 25 mmol/L Anion Gap 12.0 mmol/L Blood Urea Nitrogen 47 mg/dl Creatinine 4.30 mg/dl Est Creatinine Clear Calc Drug Dose 16.5 ml/min Estimated GFR () 16.5 Estimated GFR (Non- 14.3 BUN/Creatinine Ratio 10.8 Random Glucose 88 mg/dl Calcium Level 8.6 mg/dl C-Reactive Protein 1.81 mg/dl Bedside Glucose 246 mg/dl 199 mg/dl Test 07/18/16 20:11 07/19/16 06:10 Bedside Glucose 131 mg/dl Random Vancomycin Level 22.8 mcg/ml Date/Time Source Procedure Growth Status 07/18/16 08:02 Blood Blood Culture Pending Received Assessment & Plan ESRD-for dialysis today, will try to remove 2 liters as bp tolerates. Anemia of renal failure-giving procrit on dialysis prn to help keep hg between 10 to 11 ANNA-on phoslo and will follow phos levels intermittently in the hospital. ID-has mrsa, secondary to poor vascular access and nontender catheter and clinically improving on the current antibiotics, would prefer to treat for prolonged course of antibiotics at the dialysis unit with surveillance cultures. one repeat culture is pending, if still positive, will plan on tunneled line removal, if negative-would prefer to treat at dialysis unit.
--- NOTE | 2016-07-19 07:35 | EMERGENCY ROOM VISIT NOTE ---
History First contact with patient: 00:57 Chief Complaint: RESPIRATORY PROBLEMS Stated Complaint: HYPOXIA Nursing Triage Summary: Pt says he thinks he started to have an anxiety attack around 2200. Per [facility] they told EMS that he started complaining of shortness of breath with rales present. Pt had a neb treatment for [facility]. Denies any shortness of breath at this time. 4L placed by EMS. 89% on RA on arrival. History of Present Illness The patient is a 56 year old male who presents to the Emergency Department via EMS for evaluation for evaluation of his breathing difficulties. The patient reports that he felt as though he was having an anxiety attack at approximately 2200. This was as he was attempting to have a bowel movement. He was found to be hypoxic with an oxygen saturation of 89%. He does wear oxygen as needed, but admittedly reports he doesn't use it is much she should. The patient has a history of diabetes as well as end-stage renal disease. He receives dialysis 3 times per week on Mondays, Wednesdays, and Fridays. The patient reports that after a bowel movement in route, he feels much better at this time. He does complain of some difficulty with breathing and cough. He rates his current discomfort as a 2/10. He denies any fevers, chills, headaches, dizziness, lightheadedness, blurry vision, double vision, chest pain, palpitations, nausea , vomiting, or abdominal pain. Review of Systems A complete 10-point Review of Systems was discussed with the patient, with pertinent positives and negatives listed in the History of Present Illness. All remaining Review of Systems questions can be considered negative unless otherwise specified. Past Medical/Surgical History Medical Problems: (1) Acute on chronic renal failure (2) Anemia (3) Cardiomyopathy (4) CHF (congestive heart failure) (5) CKD (chronic kidney disease), stage III (6) Coronary artery disease (7) DM type 2 (diabetes mellitus, type 2) (8) Fever (9) HTN (hypertension) (10) Hyperlipidemia (11) Hypoxia (12) Obesity (13) PAD (peripheral artery disease) (14) PVD (peripheral vascular disease) (15) Unresponsiveness Surgical Problems: (1) ICD (implantable cardioverter-defibrillator), single, in situ (2) S/P femoral-popliteal bypass surgery (3) Toe amputation status Family History Coronary artery disease MOTHER FH: atrial fibrillation FATHER FH: cancer FATHER Hypertension SISTER Valvular heart disease FATHER Social History Smoking Status: Former Smoker Smokeless Tobacco Use: No Alcohol Use: occasionally Drug Use: none Marital Status: single Housing Status: skilled nursing Occupation Status: disabled Current/Historical Medications Scheduled Ascorbic Acid (Vitamin C), 500 MG PO 3XWK Aspirin (Aspirin Ec), 81 MG PO DAILY Calcium Acetate (Phosphate Bin (Phoslo 667 Mg), 2 CAPSULES PO WM Calcium Alginate (Bulk) (Calcium Alginate), 1 APPLN DAILY AND PRN Cholecalciferol (Vitamin D3), 5,000 UNIT PO DAILY Collagenase (Santyl), 1 APPLN TOP Q EVENING SHIFT Dexamethasone (Dexamethasone), 2 MG PO DAILY Ferrous Sulfate (Kp Ferrous Sulfate), 1 TAB PO DAILY Fluticasone Prop/Salmeterol (Advair Diskus 250/50 60 Dose), 1 PUFFS INH BID Gabapentin (Neurontin), 200 MG PO Q8 Insulin Aspart (Novolog), SC ACHS Insulin Glargine (Lantus), 5 UNITS SC AMPM Lactobacillus Acidophilus (Lactinex), 1 TAB PO TID Loratadine (Claritin), 10 MG PO DAILY Lorazepam (Ativan), 0.5 MG PO TID Metoprolol Succ (Toprol Xl) (Toprol-Xl), 25 MG PO DAILY Omeprazole (Prilosec), 20 MG PO DAILY Oxycodone Hcl (Oxycontin), 30 MG PO Q8 Polyethylene Glycol 3350 (Miralax), 17 GM PO DAILY Senna/Docusate Sod (Senokot S), 1 TAB PO DAILY Vancomycin Hcl In Dextrose (Vancomycin Hcl In Dextros), 1 GM IV 3XWK Scheduled PRN Acetaminophen Tab (Tylenol), 650 MG PO Q6 PRN for PAIN RATED 1-5 Oxycodone Ir (Roxicodone Ir), 10 MG PO Q1H PRN for Severe Pain Oxygen (Oxygen), 3 LITERS NA PRN PRN for Shortness of Breath Allergies Coded Allergies: Daptomycin (Verified Allergy, Severe, WATER ON LUNGS, 07/15/16) pt stated this allergy is "lethal" for him POLLEN (Verified Allergy, Unknown, 07/15/16) Ciprofloxacin (Verified Adverse Reaction, Intermediate, NAUSEA AND DIARHHEA, 07/15/16) Physical Exam Vital Signs Date Time Temp Pulse Resp B/P Pulse Ox O2 Delivery O2 Flow Rate FiO2 07/19/16 04:22 36.6 72 18 136/97 95 Room Air 07/19/16 04:00 Room Air 07/19/16 00:14 36.8 76 18 132/91 92 Room Air 07/19/16 00:00 Room Air 07/18/16 20:00 Room Air 07/18/16 18:56 36.6 78 18 129/89 95 Room Air 07/18/16 16:00 Room Air 07/18/16 16:00 36.6 79 18 116/76 96 Room Air 07/18/16 15:52 Room Air 07/18/16 12:00 36.5 88 18 118/82 93 Room Air 07/18/16 12:00 Room Air 07/18/16 08:00 Room Air 07/18/16 07:41 36.7 80 20 127/85 96 Room Air Pain Rating (0-10): 2 Physical Exam VITAL SIGNS - Vital signs and nursing notes were reviewed. GENERAL - 56-year-old male appearing his stated age who is in no acute distress. Communicates well with provider and answers questions appropriately. HEAD - NC/AT. EYES - PERRL with EOMI bilaterally. Sclera anicteric. Palpebral conjunctiva pink and moist with no injection noted. EARS - No deformities of external structures noted on gross examination bilaterally. No pain elicited with palpation of the tragus bilaterally. External auditory canals without discharge or otorrhea. Tympanic membranes pearly elliott without retraction or bulging. NOSE - Midline and without cyanosis. No epistaxis or purulent drainage noted. Septum midline without deviation or septal hematoma noted. MOUTH/OROPHARYNX - Without perioral cyanosis. Buccal mucosa pink and moist and without leukoplakia. Tongue midline with equal elevation of palate bilaterally. No tonsillar hypertrophy, erythema, or exudates noted. NECK - Neck with FROM. Supple to palpation. LUNGS - Chest wall symmetric without accessory muscle use, intercostals retractions, or central cyanosis. Normal vesicular breath sounds CTA B/L. No wheezes, rales, or rhonchi appreciated. CARDIAC - RRR with S1/S2. No murmur, rubs, or gallops appreciated. No reproducible tenderness to palpation appreciated over the anterior chest wall. ABDOMEN - Abdominal contour obese and without pulsations or visible masses. BS normoactive all four quadrants. No tenderness, palpable masses, hepatosplenomegaly, or ascites noted. EXTREMITIES - LEFT xhodo-pda-uuls amputation. +3/5 radial and dorsalis pedis pulses palpated throughout. NEUROLOGIC - Cranial nerves II through XII grossly intact. Sensory intact to light touch throughout. PSYCH - A&Ox3 and cooperates fully with examiner. Pt is very pleasant and interacts well with examiner. Medical Decision & Procedures ER Provider Diagnostic Interpretation: Radiological imaging and reports were reviewed by myself. Radiologist's Interpretation as follows: SINGLE VIEW CHEST CLINICAL HISTORY: Cough and dyspnea. FINDINGS: An AP, portable, upright chest radiograph is compared to study dated 11/28/2015. The examination is significantly degraded by portable technique and patient rotation. A right internal jugular central venous catheter is unchanged in position. A cardiac AICD partially obscures the left upper chest. The heart is enlarged and there is atherosclerotic calcification of the thoracic aorta. The pulmonary vasculature is noncongested. Chronic elevation of the right hemidiaphragm with right basilar atelectasis persists. Chronic interstitial thickening and nodularity as well as scattered calcified granulomas are similar to previous. There is no airspace consolidation typical for pneumonia or large pleural effusion. No pneumothorax is seen. The skeletal structures are osteopenic. The bony thorax is grossly intact. IMPRESSION: 1. Cardiomegaly and AICD. There is no radiographic evidence of congestive failure. 2. There is no airspace consolidation typical for pneumonia or large pleural effusion. CT SCAN OF THE BRAIN WITHOUT IV CONTRAST CLINICAL HISTORY: Change in mental status. COMPARISON STUDY: CT of the brain dated 11/28/2015. TECHNIQUE: Unenhanced axial CT scan of the brain is performed from the vertex to the skull base. The skull base was scanned twice due to motion artifact. CT DOSE: 921.40 mGy.cm FINDINGS: Brain parenchyma: There are age-advanced involutional changes noting moderate confluent subcortical and periventricular microangiopathic change. There is no hemorrhage, mass effect, or evidence of acute territorial ischemia by CT criteria. Elliott-white matter is preserved. No extra-axial fluid collection is seen. Ventricles, sulci, cisterns: Prominent secondary to involutional change. Intracranial vasculature: There is atherosclerotic calcification of the cavernous carotid and vertebral arteries. Calvarium: Unremarkable. Sinuses and mastoids: The visualized paranasal sinuses are clear. The mastoid air cells are well pneumatized. Orbits: The bony orbits are grossly intact. Mild proptosis is suggested. IMPRESSION: There is no hemorrhage, mass effect, or evidence of acute territorial ischemia by CT criteria. CHEST CTA for PULMONARY ARTERIES CT DOSE: 749.47 mGy.cm HISTORY: Chest pain dyspnea TECHNIQUE: Multiaxial CT images of the chest were performed following the intravenous administration of contrast to evaluate the pulmonary arteries. Maximal intensity projection images were also obtained. COMPARISON STUDY: 12/08/2015 FINDINGS: There is a normal caliber thoracic aorta with no evidence for dissection. There is no evidence for pulmonary embolus. No pleural effusions. No pneumothorax. The liver and spleen are unremarkable. No mediastinal or hilar lymphadenopathy. The central airways are patent. The lungs are clear. Deformity T12-L1 with loss of vertebral body height. This running soft tissue density previously described as diminished. This could indicate potential healing of a prior discitis. IMPRESSION: No evidence for pulmonary embolus. Healing discitis T12-L1 Laboratory Results 07/18/16 08:00 07/18/16 08:00 Test 07/18/16 08:00 07/18/16 15:25 07/18/16 20:11 07/19/16 06:10 Red Blood Count 3.88 M/uL (4.7-6.1) Mean Corpuscular Volume 90.2 fL (80-100) Mean Corpuscular Hemoglobin 29.1 pg (25-34) Mean Corpuscular Hemoglobin Concent 32.3 g/dl (32-36) RDW Standard Deviation 50.8 fL (36.4-46.3) RDW Coefficient of Variation 15.4 % (11.5-14.5) Mean Platelet Volume 9.5 fL (7.4-10.4) Erythrocyte Sedimentation Rate 16 mm/hr (0-14) Anion Gap 12.0 mmol/L (3-11) Est Creatinine Clear Calc Drug Dose 16.5 ml/min Estimated GFR () 16.5 Estimated GFR (Non- 14.3 BUN/Creatinine Ratio 10.8 (10-20) Calcium Level 8.6 mg/dl (8.5-10.1) C-Reactive Protein 1.81 mg/dl (0-0.29) Activated Partial Thromboplast Time 48.1 SECONDS (21.0-31.0) Partial Thromboplastin Ratio 1.9 Bedside Glucose 131 mg/dl (70-99) Random Vancomycin Level 22.8 mcg/ml Medications Administered Medications (Trade) Dose Ordered Sig/Edin Route Start Time Stop Time Status Last Admin Dose Admin Dextrose (Dextrose 50% 50ML Syringe) 50 ml NOW STAT IV 07/15/16 02:37 07/15/16 02:39 DC 07/15/16 03:10 50 ML Insulin Human Regular (novoLIN-R U-100 PER UNIT) 10 units NOW STAT IV 07/15/16 02:37 07/15/16 02:39 DC 07/15/16 02:37 10 UNITS Albuterol/ Ipratropium (Duoneb) 3 ml NOW STAT INH 07/15/16 03:47 07/15/16 03:48 DC 07/15/16 03:59 3 ML Heparin Sodium (Porcine) (Heparin Sq 5000 Unit/0.5ml) 5,000 unit Q8 SQ 07/15/16 14:00 07/15/16 17:04 DC 07/15/16 13:54 5,000 UNIT Aspirin (Ecotrin Tab) 81 mg QAM PO 07/16/16 09:00 08/15/16 08:59 07/18/16 08:15 81 MG Aspirin (Aspirin Chew) 324 mg NOW STAT PO 07/15/16 07:06 07/15/16 07:07 DC 07/15/16 07:55 324 MG Insulin Aspart SLIDING SCALE If C... ACHS SC 07/15/16 07:00 08/14/16 06:59 07/18/16 17:37 5 UNITS Piperacillin Sod/ Tazobactam Sod/ Dextrose (Zosyn Iv/D5 100ml) 115 ml @ 28.75 mls/ hr Q12H IV 07/15/16 20:00 07/17/16 09:13 DC 07/17/16 08:10 28.75 MLS/HR Albuterol/ Ipratropium (Duoneb) 3 ml QIDR INH 07/15/16 08:00 07/16/16 16:55 DC 07/16/16 11:24 3 ML Piperacillin Sod/ Tazobactam Sod (Zosyn Iv) 4.5 gm NOW STAT IV 07/15/16 07:16 07/15/16 07:17 DC 07/15/16 07:56 4.5 GM Albumin Human 12.5 gm 12.5 gm Q90M IV 07/15/16 09:00 07/15/16 10:31 DC 07/15/16 11:51 12.5 GM Calcium Gluconate/ Sodium Chloride (Calcium Gluconate 10%/Nss 50ml) 60 ml @ 240 mls/hr 0915 ONCE IV 07/15/16 09:15 07/15/16 09:29 DC 07/15/16 09:15 240 MLS/HR Ascorbic Acid (Vitamin C Tab) 500 mg MoWeFr@0900 PO 07/17/16 09:00 08/16/16 08:59 07/17/16 08:11 500 MG Collagenase (Santyl Oint) 1 appln HS EXT 07/15/16 21:00 08/14/16 20:59 07/18/16 20:56 1 APPLN Salmeterol Xinafoate/ Fluticasone (Advair Diskus 250/50 Inh) 1 puff BID INH 07/15/16 21:00 08/14/16 20:59 07/18/16 20:55 1 PUFF Gabapentin (Neurontin Cap) 200 mg Q8 PO 07/15/16 14:00 08/14/16 13:59 07/19/16 05:45 200 MG Lactobacillus Acidophilus (Floranex Tab) 1 tab TID PO 07/15/16 14:00 08/14/16 13:59 07/18/16 20:56 1 TAB Loratadine (Claritin Tab) 10 mg DAILY PO 07/16/16 09:00 08/15/16 08:59 07/18/16 08:15 10 MG Lorazepam (Ativan Tab) 0.5 mg TID PO 07/15/16 14:00 08/14/16 13:59 07/18/16 20:56 0.5 MG Metoprolol Succinate (Toprol Xl Tab) 25 mg DAILY PO 07/16/16 09:00 08/15/16 08:59 07/18/16 08:15 25 MG Oxycodone HCl (Oxycontin Tab) 30 mg Q8 PO 07/15/16 14:00 07/29/16 13:59 07/19/16 05:45 30 MG Senna/Docusate Sodium (Senokot S Tab) 1 tab DAILY PO 07/16/16 09:00 08/15/16 08:59 07/18/16 08:15 1 TAB Cholecalciferol (Vitamin D Tab) 5,000 inter.unit QAM PO 07/16/16 09:00 08/15/16 08:59 07/18/16 08:14 5,000 INTER.UNIT Dexamethasone (Decadron Tab) 2 mg DAILY PO 07/16/16 09:00 08/15/16 08:59 07/18/16 08:14 2 MG Dexamethasone (Decadron Tab) 2 mg 0922 ONCE PO 07/15/16 09:22 07/15/16 09:40 DC 07/15/16 13:51 2 MG Ferrous Sulfate (Feosol Tab) 325 mg QAM PO 07/16/16 09:00 08/15/16 08:59 07/18/16 08:15 325 MG Pantoprazole Sodium (Protonix Tab) 40 mg QAM PO 07/16/16 09:00 08/15/16 08:59 07/18/16 08:16 40 MG Polyethylene (Miralax Powder Packet) 17 gm DAILY PO 07/16/16 09:00 08/15/16 08:59 07/18/16 08:16 17 GM Polyethylene (Miralax Powder Packet) 17 gm 0922 ONCE PO 07/15/16 09:22 07/15/16 09:38 DC 07/15/16 13:51 17 GM Calcium Acetate 1334 mg 1,334 mg AC PO 07/15/16 11:00 08/14/16 10:59 07/18/16 15:26 1,334 MG Vancomycin HCl/ Sodium Chloride (Vancomycin Inj/ Nss 250ml) 260 ml @ 125 mls/hr TODAY@1630 IV 07/15/16 16:30 07/15/16 18:35 DC 07/15/16 16:10 125 MLS/HR Atorvastatin Calcium 40 mg 40 mg QAM PO 07/16/16 09:00 08/15/16 08:59 07/18/16 08:16 40 MG Heparin Sodium/ Dextrose 500 ml @ 19 mls/hr Q24H PRN IV 07/15/16 19:00 07/19/16 07:03 DC 07/18/16 13:26 19 MLS/HR Heparin Sodium (Porcine)/Syringe (Heparin Iv Bolus/Syringe) 4 ml @ 10 mls/min NOW ONCE IV 07/16/16 04:15 07/16/16 04:16 DC 07/16/16 04:48 10 MLS/MIN Albuterol/ Ipratropium 1 puffs 1 puffs QID INH 07/16/16 17:00 08/15/16 16:59 07/18/16 20:55 1 PUFFS Vancomycin HCl 500 mg/Sodium Chloride 260 ml @ 125 mls/hr TODAY@1800 IV 07/17/16 18:00 07/17/16 23:59 DC 07/17/16 18:06 125 MLS/HR Imipenem/ Cilastatin Sodium 500 mg/Dextrose 110 ml @ 110 mls/hr Q12H IV 07/17/16 16:00 07/27/16 15:59 07/19/16 04:37 110 MLS/HR Heparin Sodium (Porcine) 4000 unit/Syringe 4 ml @ 10 mls/min 1615 ONCE IV 07/17/16 16:15 07/17/16 16:16 DC 07/17/16 16:29 10 MLS/MIN Heparin Sodium (Porcine)/Syringe (Heparin Iv Bolus/Syringe) 2 ml @ 10 mls/min NOW ONCE IV 07/18/16 09:30 07/18/16 09:31 DC 07/18/16 10:06 10 MLS/MIN Procedure Patient was placed on the pvc monitor and monitored throughout the entire extent of their stay. In addition, the patient's pulse oximetry was monitored throughout the entire stay. Any abnormalities or aberrancies were addressed appropriately. ECG Indication: SOB/dyspnea Rate (beats per minute): 99 Rhythm: normal sinus Findings: ST depression (Lateral), T-wave inversion (inferior, lateral) Comparison ECG Date: mild ST depression laterally when compared to 11/28/2015. ED Course Patient was seen and evaluated by myself. Labs were drawn, saline lock in place. EKG and chest x-ray were obtained. EKG demonstrates some mild slight ST depression laterally. He has chronic T-wave inversion inferiorly and laterally. Patient is resting comfortably at this time. Laboratory results demonstrate no acute leukocytosis, significant anemia, or bandemia. The patient was found to have a potassium of 6.4 and a creatinine of 6.6. He is scheduled for dialysis today. On review his prior records, this is the highest that these levels have been. The patient was treated with 1 amp of D50 and 10 units of regular insulin. Patient was reevaluated and is resting comfortably with no complaints at this time. Repeat labs were assessed including repeat troponin and potassium. Repeat troponin had elevated from 0.110, the patient's baseline, to 2.46, which is certainly higher than usual. His potassium had decreased to 5.9. On review the patient, he has persistent cough and feels that he is wheezing more than usual. He was treated with 1 DuoNeb. On review the patient earlier, he was somewhat confused. CT the head was found to be unremarkable. [facility] possible [facility] as diagnosis. Case was reviewed with my attending physician who independently evaluated the patient and agrees with diagnostic approach and treatment plan. CTA of the chest was obtained and found to be unremarkable. The patient was admitted to the [facility] program for further evaluation and management. Patient admitted in fair condition. Medical Decision Given the patient's presentation and stated complaint, I did elect to perform the above-mentioned workup. The patient resents today with difficulty with breathing. His story is otherwise unremarkable. He was found to be somewhat hypoxic on presentation. Admittedly, the patient does not use his home oxygen as needed. During a reevaluation the patient, he was found to be somewhat confused. CT of the head was obtained and on repeat lab draws, I did obtain a VBG. The patient was mildly acidotic. His EKG was somewhat concerning with some slight ST depression in the lateral leads. Of concern, the patient had increasing troponin from his initial presentation. Repeat EKG did demonstrate some normalization of his EKG at baseline. His potassium was treated with dextrose and IV normal insulin. The patient has persistent wheezing. The patient is likely expansive and significant volume overload and need for aggressive dialysis. Regardless, hospitalist is concern for possibility of PE diagnosis. Because of this, CTA was obtained. The patient did have an elevated creatinine, however his kidney function is essentially not important at this point as he receives dialysis 3 times a week. CTA demonstrates no acute PE. Regardless, the patient was admitted after finding an elevated troponin in the setting of hypoxia and shortness of breath symptoms. The patient was admitted in fair condition. In the evaluation and treatment of this patient, the following differential diagnoses were considered: WA, ASC, Dysrhythmia, Angina, Mediastinitis, GERD, Esophagitis, PE, Pneumonia, Bronchitis, Costochondritis, Rib Fracture, Zoster. Impression Primary Impression: Hypoxia Additional Impressions: Hyperkalemia Elevated troponin Departure Information Dispostion Admitted as an inpatient Condition FAIR Referrals Brandyn Queen M.D. (PCP) Forms WORK / SCHOOL INSTRUCTIONS, HOME CARE DOCUMENTATION FORM, IMPORTANT VISIT INFORMATION Patient Instructions [facility] Problem Qualifiers
[2016-07-19] MEDS: INSULIN ASPART 100 UNITS/ML 3 ML PEN SC SCH ×4 (08:25→21:09)
[2016-07-19] MEDS: CALCIUM ACETATE 667MG GELCAP PO SCH ×3 (08:32→19:43)
[2016-07-19] MEDS: FLUTICASONE/SALMETEROL 250/50 (ADVAIR) 14 PUFF/1 INHALER INH SCH ×2 (08:32→21:07)
[2016-07-19] MEDS: METOPROLOL SUCC 25MG EXT REL TAB PO SCH (08:33)
[2016-07-19] MEDS: DOCUSATE SODIUM/SENNA 50/8.6MG TAB PO SCH (08:33)
[2016-07-19] MEDS: LACTOBACILLUS ACIDOPHILUS (FLORANEX) TAB PO SCH ×3 (08:33→21:08)
[2016-07-19] MEDS: IPRATROPIUM BROMIDE/ALBUTEROL respimat INH INH SCH ×4 (08:33→21:10)
[2016-07-19] MEDS: PANTOprazole SOD 40 MG TAB PO SCH (08:34)
[2016-07-19] MEDS: CHOLECALCIFEROL 1000 INTER.UNIT TAB PO SCH (08:34)
[2016-07-19] MEDS: LORATADINE 10 MG TAB PO SCH (08:34)
[2016-07-19] MEDS: ASCORBIC ACID 500 MG TAB PO SCH (08:34)
[2016-07-19] MEDS: POLYETHYLENE (MIRALAX) 17 GM PACK PO SCH (08:35)
[2016-07-19] MEDS: FERROUS SULFATE 325 MG TAB PO SCH (08:35)
[2016-07-19] MEDS: DEXAMETHASONE 1 MG TAB PO SCH (08:35)
[2016-07-19] MEDS: ATORVASTATIN 40 MG TAB PO SCH (08:35)
[2016-07-19] MEDS: ASPIRIN 81 MG ECTAB PO SCH (08:35)
[2016-07-19] MEDS: LORAZEPAM 0.5 MG TAB PO SCH ×3 (08:39→21:08)
--- NOTE | 2016-07-19 10:51 | Pharmacy Progress Note ---
Pharmacy Antibiotic Prog Note Date of Service: Jul 19, 2016. Subjective: The patient is currently receiving vancomycin dosed based upon HD levels and primaxin The patient is currently on day # 4 of IV therapy. Objective: Height (Feet): 5 Height (Inches): 0.00 Weight (Kilograms): 78.100 Lab Results (24hrs): Item Value Date Time Random Vancomycin Level 22.8 mcg/ml 07/19/16 0610 Micro Results: Item Value Date Time Blood Culture Received 07/18/16 0802 Blood Pending Urine Culture - Final Complete 07/15/16 1920 Urine,Catheterized NO GROWTH - LESS THAN 1,000 COLONIES/ML Blood Culture - Final Complete 07/15/16 0124 Blood Staphylococcus Aureus Blood Culture - Final Complete 07/15/16 0120 Blood Staphylococcus Aureus Assessment & Plan: Patient on primaxin and vancomycin for positive blood cultures growing MRSA. ID is following the patient. Vancomycin: * Random vancomycin level this am was ~22.8 mcg/ml (goal is 15-20 mcg/ml for bacteremia) * Patient scheduled for dialysis today ; expect about ~30 % removal with dialysis will dose with vancomycin 500 mg (~7 mg/kg) for after dialysis * Will order another random level prior to the next dialysis session to assist with further dosing * Patient has been getting dialysis MWF will order level prior to friday session Primaxin: * dosed 500 mg iv q 12 hrs - appropriate for HD patients (recommended adjustment for target dose of 1 gm q 8 hrs) Pharmacy will continue to follow and will adjust dose/frequency as necessary. Thank you
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
--- NOTE | 2016-07-19 11:07 | Progress Note ---
Internal Med Progress Note Date of Service: Jul 19, 2016. Provider Documentation: SUBJECTIVE: Patient is seen and examined at bedside. Feels well. Planned for hemodialysis today. Denies any chest pain, SOB, dizziness, palpitations, RLE pain. OBJECTIVE: Vital Signs-as noted below Physical Exam: General Appearance:Moderately built and nourished, no apparent distress, chronically ill appearing Head: normocephalic, Atraumatic Eyes: normal inspection, EOMI, PERRLA Neck: supple, Trachea midline Respiratory/Chest: B/L minimal wheezes, decreased breath sounds Cardiovascular: S1, S2, NSR, No murmur Abdomen/GI:Soft, Non tender, Bowel sounds present Extremities/Musculoskelatal:left AKA. Right LE in bandage Neurologic/Psych:AAOX3, grossly no focal neurological deficits Skin: normal color, warm Lab data as noted below. ASSESSMENT & PLAN: NSTEMI: Elevated troponin EKG: No acute changes. Has chronic incomplete LBBB ECHO: severe LV dysfunction, EF 15-20% Completed IV heparin for 48 hours Continue ASA, statins, beta david Denies any chest pain Cardiology following H/O presumed ischemic cardiomyopathy Chronic Systolic Heart failure S/P ICD placed in 2014 after syncopal event Patient previously refused diagnostic cardiac cath ECHO in October 2015: LVEF 15-20% Continue dialysis Bacteremia: H/O Vertebral Osteomyelitis and diskitis in November 2015 H/O MRSA infection of permanent cath Blood cultures: Staph aureus in 2 bottles ID on board Bacteremia likely related to dialysis catheter Continue vanco with dialysis Also on Imipenem/Cilastin Repeat blood culture is pending: If positive, plan on tunneled line removal, if negative-would prefer to treat at dialysis unit per nephrology Also need to discuss with ID Right Lower Extremity wound: H/O Vertebral Osteomyelitis and diskitis in November 2015 H/O MRSA infection of permanent cath Not a surgical candidate at that time due to comorbidities Continue antibiotics per ID Follow up cultures Appreciate ID help Continue wound care ESRD on HD: Hyperkalemia:4.7 yesterday Planned for HD today Appreciate Nephrology help Repeat blood culture is pending: If positive, plan on tunneled line removal, if negative-would prefer to treat at dialysis unit per nephrology Anemia of renal failure: Monitor Hb Hb:11.3 yesterday procrit on dialysis prn to keep Hb between 10 to 11 Acute on chronic hypoxic respiratory failure: On chronic oxygen 2-3 L at home Unclear etiology: likely secondary to comorbidities CTA:No evidence for pulmonary embolus. Healing discitis T12-L1 Currently saturating well on RA Nebs PRN Repeat CXR:Cardiomegaly. No acute findings. Currently saturating well on RA PVD: S/P left AKA September 2015 Continue current medications DM II: ISS/Lantus Accu checks DVT Px: SQ heparin Code Status: Full code Disposition: Continue monitoring in Tele PROCEDURES: ECHO: * The left ventricle is moderately dilated. * Ejection Fraction = 20-25%. * There is severe global hypokinesis of the left ventricle. * There is mild mitral regurgitation. * There is moderate tricuspid regurgitation. Vital Signs: Date Time Temp Pulse Resp B/P Pulse Ox O2 Delivery O2 Flow Rate FiO2 07/19/16 08:02 36.7 84 18 125/79 93 Room Air 07/19/16 08:00 Room Air 07/19/16 04:22 36.6 72 18 136/97 95 Room Air 07/19/16 04:00 Room Air 07/19/16 00:14 36.8 76 18 132/91 92 Room Air 07/19/16 00:00 Room Air 07/18/16 20:00 Room Air 07/18/16 18:56 36.6 78 18 129/89 95 Room Air 07/18/16 16:00 Room Air 07/18/16 16:00 36.6 79 18 116/76 96 Room Air 07/18/16 15:52 Room Air 07/18/16 12:00 36.5 88 18 118/82 93 Room Air 07/18/16 12:00 Room Air Lab Results: Results Past 24 Hours Test 07/18/16 11:59 07/18/16 15:25 07/18/16 15:56 07/18/16 20:11 Range/Units Bedside Glucose 246 199 131 70-99 mg/dl Activated Partial Thromboplast Time 48.1 21.0-31.0 SECONDS Partial Thromboplastin Ratio 1.9 Test 07/19/16 06:10 07/19/16 07:00 Range/Units Random Vancomycin Level 22.8 mcg/ml Bedside Glucose 149 70-99 mg/dl
[2016-07-19] MEDS: HEPARIN SOD 5000 UNIT/0.5 ML CARP SQ SCH ×2 (13:50→21:10)
[2016-07-19] MEDS ORDERED: VANCOMYCIN INJ 500 MG in SODIUM CHLORIDE 0.9% 250ML 250 ML IV ONE (18:00)
--- NOTE | 2016-07-19 19:57 | Infectious Disease Progress Nt ---
Progress Note Date of Service Jul 19, 2016. Subjective Pt evaluation today including: conversation w/ patient, physical exam, chart review, lab review, conversation w/ method consultant, review of inpatient medication list patient offering no new complaints today. Remains afebrile. Tolerating antibiotics without apparent difficulty. All Other Systems: Reviewed and Negative Medications Current Inpatient Medications Medications (Trade) Dose Ordered Sig/Edin Route Start Time Stop Time Status Last Admin Dose Admin Ondansetron HCl (Zofran Inj) 4 mg Q6H PRN IV 07/15/16 06:45 08/14/16 06:44 Aspirin (Ecotrin Tab) 81 mg QAM PO 07/16/16 09:00 08/15/16 08:59 07/19/16 08:35 81 MG Polyethylene (Miralax Powder Packet) 17 gm DAILY PRN PO 07/15/16 06:45 08/14/16 06:44 Insulin Aspart (novoLOG ASPART) SLIDING SCALE If C... ACHS SC 07/15/16 07:00 08/14/16 06:59 07/19/16 12:25 5 UNITS Glucose (Glucose 40% Gel) 15-30 GRAMS 15 GRAMS... UD PRN PO 07/15/16 06:45 08/14/16 06:44 Glucose (Glucose Chew Tab) 4-8 Tablets 4 Tabl... UD PRN PO 07/15/16 06:45 08/14/16 06:44 Dextrose (Dextrose 50% 50ML Syringe) 25-50ML OF 50% DW IV FOR... UD PRN IV 07/15/16 06:45 08/14/16 06:44 Glucagon (Glucagon Inj) 1 mg UD PRN SQ 07/15/16 06:45 08/14/16 06:44 Vancomycin HCl (Consult) 1 ea UD PRN N/A 07/15/16 07:15 08/14/16 07:14 Ascorbic Acid (Vitamin C Tab) 500 mg MoWeFr@0900 PO 07/17/16 09:00 08/16/16 08:59 07/19/16 08:34 500 MG Collagenase (Santyl Oint) 1 appln HS EXT 07/15/16 21:00 08/14/16 20:59 07/18/16 20:56 1 APPLN Salmeterol Xinafoate/ Fluticasone (Advair Diskus 250/50 Inh) 1 puff BID INH 07/15/16 21:00 08/14/16 20:59 07/19/16 08:32 1 PUFF Gabapentin (Neurontin Cap) 200 mg Q8 PO 07/15/16 14:00 08/14/16 13:59 07/19/16 13:48 200 MG Lactobacillus Acidophilus (Floranex Tab) 1 tab TID PO 07/15/16 14:00 08/14/16 13:59 07/19/16 13:49 1 TAB Loratadine (Claritin Tab) 10 mg DAILY PO 07/16/16 09:00 08/15/16 08:59 07/19/16 08:34 10 MG Lorazepam (Ativan Tab) 0.5 mg TID PO 07/15/16 14:00 08/14/16 13:59 07/19/16 13:48 0.5 MG Metoprolol Succinate (Toprol Xl Tab) 25 mg DAILY PO 07/16/16 09:00 08/15/16 08:59 07/19/16 08:33 25 MG Oxycodone HCl (Oxycontin Tab) 30 mg Q8 PO 07/15/16 14:00 07/29/16 13:59 07/19/16 13:48 30 MG Senna/Docusate Sodium (Senokot S Tab) 1 tab DAILY PO 07/16/16 09:00 08/15/16 08:59 07/19/16 08:33 1 TAB Cholecalciferol (Vitamin D Tab) 5,000 inter.unit QAM PO 07/16/16 09:00 08/15/16 08:59 07/19/16 08:34 5,000 INTER.UNIT Dexamethasone (Decadron Tab) 2 mg DAILY PO 07/16/16 09:00 08/15/16 08:59 07/19/16 08:35 2 MG Ferrous Sulfate (Feosol Tab) 325 mg QAM PO 07/16/16 09:00 08/15/16 08:59 07/19/16 08:35 325 MG Pantoprazole Sodium (Protonix Tab) 40 mg QAM PO 07/16/16 09:00 08/15/16 08:59 07/19/16 08:34 40 MG Polyethylene (Miralax Powder Packet) 17 gm DAILY PO 07/16/16 09:00 08/15/16 08:59 07/19/16 08:35 17 GM Calcium Acetate (Phoslo Cap) 1,334 mg AC PO 07/15/16 11:00 08/14/16 10:59 07/19/16 19:43 1,334 MG Atorvastatin Calcium (Lipitor Tab) 40 mg QAM PO 07/16/16 09:00 08/15/16 08:59 07/19/16 08:35 40 MG Albuterol/ Ipratropium (Combivent Respimat Inh) 1 puffs QID INH 07/16/16 17:00 08/15/16 16:59 07/19/16 13:48 1 PUFFS Imipenem/ Cilastatin Sodium 1 ea 1 ea UD PRN N/A 07/17/16 14:30 08/16/16 14:29 Imipenem/ Cilastatin Sodium 500 mg/Dextrose 110 ml @ 110 mls/hr Q12H IV 07/17/16 16:00 07/27/16 15:59 07/19/16 19:43 110 MLS/HR Vancomycin HCl/ Sodium Chloride (Vancomycin Inj/ Nss 250ml) 260 ml @ 125 mls/hr TODAY@1800 ONCE IV 07/19/16 18:00 07/19/16 20:04 Heparin Sodium (Porcine) (Heparin Sq 5000 Unit/0.5ml) 5,000 unit Q8 SQ 07/19/16 14:00 08/18/16 13:59 07/19/16 13:50 5,000 UNIT Objective Vital Signs Date Time Temp Pulse Resp B/P Pulse Ox O2 Delivery O2 Flow Rate FiO2 07/19/16 17:45 85 111/68 07/19/16 17:30 85 102/82 07/19/16 17:15 84 128/74 07/19/16 17:00 85 103/82 07/19/16 16:52 85 114/88 07/19/16 16:51 40 71/55 07/19/16 16:45 88 91/63 07/19/16 16:30 76 89/72 07/19/16 16:15 86 112/86 07/19/16 16:00 Room Air 07/19/16 16:00 84 91/77 07/19/16 15:45 78 115/86 3/3/17 15:30 73 109/74 07/19/16 15:15 75 114/80 07/19/16 15:08 74 142/92 07/19/16 14:45 36.7 73 125/89 07/19/16 12:01 36.6 76 20 126/77 94 Room Air 07/19/16 12:00 Room Air 07/19/16 08:02 36.7 84 18 125/79 93 Room Air 07/19/16 08:00 Room Air 07/19/16 04:22 36.6 72 18 136/97 95 Room Air 07/19/16 04:00 Room Air 07/19/16 00:14 36.8 76 18 132/91 92 Room Air 07/19/16 00:00 Room Air 07/18/16 20:00 Room Air Physical Exam General Appearance: WD/WN, no apparent distress Eyes: normal inspection, sclerae normal ENT: normal ENT inspection, pharynx normal Neck: supple, trachea midline Respiratory/Chest: chest non-tender, lungs clear, normal breath sounds, no respiratory distress Cardiovascular: regular rate, rhythm, no gallop, no murmur Abdomen: normal bowel sounds, non tender, soft, no organomegaly Extremities: non-tender, no calf tenderness Neurologic/Psychiatric: alert, oriented x 3 Skin: normal color, no rash, + pertinent finding ( Right knee wound improved) Laboratory Results Last 24 Hours Test 07/18/16 20:11 07/19/16 06:10 07/19/16 07:00 07/19/16 11:11 Bedside Glucose 131 mg/dl 149 mg/dl 159 mg/dl Random Vancomycin Level 22.8 mcg/ml Test 07/19/16 16:27 Bedside Glucose 151 mg/dl Assessment and Plan 56 yo diabetic male with ESRD on dialysis with prior diskitis/vertebral osteomyelitis, MRSA infection of permacath and most recently infected skin ulceration of leg with Pseudomonas now with acute SOB. Blood cultures now growing MRSA again. ? related to dialysis access. Patient will continue vancomycin, likely 6 week course. f/u blood cultures pending.
[2016-07-19] MEDS: COLLAGENASE OINT 30 GM TUBE EXT SCH (21:10)
[2016-07-20] VITALS (7 sets, daily range): BP systolic 118–142; BP diastolic 80–91; PULSE 78–88; TEMP 36.8–37.2; O2SAT 93–97
[2016-07-20] MEDS: IMIPENEM/CILASTATIN IV 500 MG in D5W 100ML IV SCH ×2 (04:35→16:54)
[2016-07-20] MEDS: HEPARIN SOD 5000 UNIT/0.5 ML CARP SQ SCH ×3 (06:00→21:37)
[2016-07-20] MEDS: OXYCODONE HCL 15 MG TABCR (OXYCONTIN) PO SCH ×3 (06:08→21:37)
[2016-07-20] MEDS: GABAPENTIN 100 MG CAP PO SCH ×3 (06:09→21:37)
[2016-07-20 07:43] LABS: CALCIUM 8.4 mg/dl (8.5-10.1); CREATININE 4.5 mg/dl (0.60-1.40)
[2016-07-20] MEDS: DOCUSATE SODIUM/SENNA 50/8.6MG TAB PO SCH (09:00)
[2016-07-20] MEDS: POLYETHYLENE (MIRALAX) 17 GM PACK PO SCH (09:00)
[2016-07-20] MEDS: CALCIUM ACETATE 667MG GELCAP PO SCH ×3 (09:17→16:55)
[2016-07-20] MEDS: INSULIN ASPART 100 UNITS/ML 3 ML PEN SC SCH ×4 (09:22→21:36)
[2016-07-20] MEDS: LORAZEPAM 0.5 MG TAB PO SCH ×3 (09:55→20:21)
[2016-07-20] MEDS: FLUTICASONE/SALMETEROL 250/50 (ADVAIR) 14 PUFF/1 INHALER INH SCH ×2 (09:55→20:21)
[2016-07-20] MEDS: IPRATROPIUM BROMIDE/ALBUTEROL respimat INH INH SCH ×4 (09:55→20:21)
[2016-07-20] MEDS: CHOLECALCIFEROL 1000 INTER.UNIT TAB PO SCH (09:57)
[2016-07-20] MEDS: LORATADINE 10 MG TAB PO SCH (09:58)
[2016-07-20] MEDS: PANTOprazole SOD 40 MG TAB PO SCH (09:58)
[2016-07-20] MEDS: METOPROLOL SUCC 25MG EXT REL TAB PO SCH (09:58)
[2016-07-20] MEDS: FERROUS SULFATE 325 MG TAB PO SCH (09:58)
[2016-07-20] MEDS: DEXAMETHASONE 1 MG TAB PO SCH (09:58)
[2016-07-20] MEDS: LACTOBACILLUS ACIDOPHILUS (FLORANEX) TAB PO SCH ×3 (09:59→20:21)
[2016-07-20] MEDS: ATORVASTATIN 40 MG TAB PO SCH (12:41)
[2016-07-20] MEDS: ASPIRIN 81 MG ECTAB PO SCH (12:41)
--- NOTE | 2016-07-20 14:43 | Progress Note ---
Internal Med Progress Note Date of Service: Jul 20, 2016. Provider Documentation: SUBJECTIVE: Patient is seen and examined at bedside. Feels well. Clinically no significant change from yesterday. Denies any chest pain, SOB, dizziness, palpitations, RLE pain. OBJECTIVE: Vital Signs-as noted below Physical Exam: General Appearance:Moderately built and nourished, no apparent distress, chronically ill appearing Head: normocephalic, Atraumatic Eyes: normal inspection, EOMI, PERRLA Neck: supple, Trachea midline Respiratory/Chest: B/L minimal wheezes, decreased breath sounds Cardiovascular: S1, S2, NSR, No murmur Abdomen/GI:Soft, Non tender, Bowel sounds present Extremities/Musculoskelatal:left AKA. Right LE in bandage Neurologic/Psych:AAOX3, grossly no focal neurological deficits Skin: normal color, warm Lab data as noted below. ASSESSMENT & PLAN: NSTEMI: Elevated troponin EKG: No acute changes. Has chronic incomplete LBBB ECHO: severe LV dysfunction, EF 15-20% Completed IV heparin for 48 hours Continue ASA, statins, beta david Currently asymptomatic Appreciate Cardiology help H/O presumed ischemic cardiomyopathy Chronic Systolic Heart failure S/P ICD placed in 2014 after syncopal event Patient previously refused diagnostic cardiac cath ECHO in October 2015: LVEF 15-20% Continue dialysis per Nephrology Bacteremia: H/O Vertebral Osteomyelitis and diskitis in November 2015 H/O MRSA infection of permanent cath Blood cultures: Staph aureus in 2 bottles ID on board Bacteremia likely related to dialysis catheter Continue vanco with dialysis Also on Imipenem/Cilastin Repeat blood culture is pending: If positive, plan on tunneled line removal, if negative-would prefer to treat at dialysis unit per nephrology Also need to discuss with ID if needs catheter replacement Repeat blood culture: No growth to date Right Lower Extremity wound: H/O Vertebral Osteomyelitis and diskitis in November 2015 H/O MRSA infection of permanent cath Not a surgical candidate at that time due to comorbidities Continue antibiotics per ID Follow up cultures Appreciate ID help Continue wound care ESRD on HD: Hyperkalemia: Resolved HD per Nephrology Appreciate Nephrology help Anemia of renal failure: Monitor Hb Last Hb:11.3 procrit on dialysis prn to keep Hb between 10 to 11 Acute on chronic hypoxic respiratory failure: On chronic oxygen 2-3 L at home Unclear etiology: likely secondary to comorbidities CTA:No evidence for pulmonary embolus. Healing discitis T12-L1 Currently saturating well on RA Nebs PRN Repeat CXR:Cardiomegaly. No acute findings. Currently saturating well on RA PVD: S/P left AKA September 2015 Continue current medications DM II: ISS/Lantus Accu checks DVT Px: SQ heparin Code Status: Full code Disposition: Transfer to [facility]/surg PROCEDURES: ECHO: * The left ventricle is moderately dilated. * Ejection Fraction = 20-25%. * There is severe global hypokinesis of the left ventricle. * There is mild mitral regurgitation. * There is moderate tricuspid regurgitation. Vital Signs: Date Time Temp Pulse Resp B/P Pulse Ox O2 Delivery O2 Flow Rate FiO2 07/20/16 11:30 Room Air 07/20/16 11:08 36.8 87 18 129/91 94 Room Air 07/20/16 07:30 Room Air 07/20/16 07:21 36.8 78 18 142/84 97 Room Air 07/20/16 04:14 37.2 88 19 127/83 97 Room Air 07/20/16 04:00 Room Air 07/20/16 00:22 36.9 88 20 118/86 93 Room Air 07/20/16 00:00 Room Air 07/19/16 20:00 Room Air 07/19/16 19:52 36.4 89 18 144/89 95 Room Air 07/19/16 17:45 85 111/68 07/19/16 17:30 85 102/82 07/19/16 17:15 84 128/74 07/19/16 17:00 85 103/82 07/19/16 16:52 85 114/88 07/19/16 16:51 40 71/55 07/19/16 16:45 88 91/63 07/19/16 16:30 76 89/72 07/19/16 16:15 86 112/86 07/19/16 16:00 Room Air 07/19/16 16:00 84 91/77 07/19/16 15:45 78 115/86 07/19/16 15:30 73 109/74 07/19/16 15:15 75 114/80 07/19/16 15:08 74 142/92 Lab Results: Results Past 24 Hours Test 07/19/16 16:27 07/19/16 20:13 07/20/16 06:24 07/20/16 06:49 Range/Units Bedside Glucose 151 202 123 70-99 mg/dl Sodium Level 135 136-145 mmol/L Potassium Level 4.0 3.5-5.1 mmol/L Chloride Level 96 98-107 mmol/L Carbon Dioxide Level 26 21-32 mmol/L Anion Gap 13.0 3-11 mmol/L Blood Urea Nitrogen 45 7-18 mg/dl Creatinine 4.50 0.60-1.40 mg/dl Est Creatinine Clear Calc Drug Dose 15.6 ml/min Estimated GFR () 15.6 Estimated GFR (Non- 13.5 BUN/Creatinine Ratio 10.0 10-20 Random Glucose 111 70-99 mg/dl Calcium Level 8.4 8.5-10.1 mg/dl Test 07/20/16 11:32 Range/Units Bedside Glucose 207 70-99 mg/dl
[2016-07-20] MEDS ORDERED: NURSING VERBAL MED ORDER ONE (17:15)
[2016-07-20] MEDS: GUAIFENESIN 600 MG TABCR PO PRN (19:25)
[2016-07-20] MEDS: COLLAGENASE OINT 30 GM TUBE EXT SCH (21:15)
[2016-07-21] MEDS: IMIPENEM/CILASTATIN IV 500 MG in D5W 100ML IV SCH ×2 (03:30→17:35)
[2016-07-21] MEDS: GABAPENTIN 100 MG CAP PO SCH ×3 (06:07→22:07)
[2016-07-21] MEDS: CALCIUM ACETATE 667MG GELCAP PO SCH ×3 (06:08→17:35)
[2016-07-21] MEDS: OXYCODONE HCL 15 MG TABCR (OXYCONTIN) PO SCH ×3 (06:08→22:07)
[2016-07-21] MEDS: HEPARIN SOD 5000 UNIT/0.5 ML CARP SQ SCH ×3 (06:10→20:57)
[2016-07-21 06:33] LABS: MEAN CELL VOLUME 88.1 fL (80-100); MEAN CORPUSCULAR HGB CONC 32.9 g/dl (32-36); MEAN PLATELET VOLUME 9.3 fL (7.4-10.4); PLATELET COUNT 172 K/uL (130-400); RED BLOOD COUNT 3.86 M/uL (4.7-6.1); WHITE BLOOD COUNT 7.88 K/uL (4.8-10.8)
[2016-07-21 07:23] LABS: BUN/CREATININE RATIO 11.1 (10-20); CALCIUM 9.1 mg/dl (8.5-10.1); POTASSIUM 4.3 mmol/L (3.5-5.1)
[2016-07-21 07:24] VITALS: BP 128/87; PULSE 81; TEMP 36.6; O2SAT 97
[2016-07-21] MEDS: DOCUSATE SODIUM/SENNA 50/8.6MG TAB PO SCH (08:34)
[2016-07-21] MEDS: LORATADINE 10 MG TAB PO SCH (08:34)
[2016-07-21] MEDS: LORAZEPAM 0.5 MG TAB PO SCH ×3 (08:34→20:50)
[2016-07-21] MEDS: LACTOBACILLUS ACIDOPHILUS (FLORANEX) TAB PO SCH ×3 (08:34→20:50)
[2016-07-21] MEDS: ASPIRIN 81 MG ECTAB PO SCH (08:35)
[2016-07-21] MEDS: ATORVASTATIN 40 MG TAB PO SCH (08:35)
[2016-07-21] MEDS: DEXAMETHASONE 1 MG TAB PO SCH (08:35)
[2016-07-21] MEDS: FERROUS SULFATE 325 MG TAB PO SCH (08:35)
[2016-07-21] MEDS: GUAIFENESIN 600 MG TABCR PO PRN (08:35)
[2016-07-21] MEDS: METOPROLOL SUCC 25MG EXT REL TAB PO SCH (08:36)
[2016-07-21] MEDS: IPRATROPIUM BROMIDE/ALBUTEROL respimat INH INH SCH ×4 (08:36→20:49)
[2016-07-21] MEDS: PANTOprazole SOD 40 MG TAB PO SCH (08:36)
[2016-07-21] MEDS: CHOLECALCIFEROL 1000 INTER.UNIT TAB PO SCH (08:36)
[2016-07-21] MEDS: FLUTICASONE/SALMETEROL 250/50 (ADVAIR) 14 PUFF/1 INHALER INH SCH ×2 (08:36→20:49)
[2016-07-21] MEDS: POLYETHYLENE (MIRALAX) 17 GM PACK PO SCH (08:37)
[2016-07-21] MEDS: INSULIN ASPART 100 UNITS/ML 3 ML PEN SC SCH ×4 (08:49→20:57)
[2016-07-21 15:20] VITALS: BP 123/73; PULSE 79; TEMP 36.5; O2SAT 97
--- NOTE | 2016-07-21 15:38 | Progress Note ---
Internal Med Progress Note Date of Service: Jul 21, 2016. Provider Documentation: SUBJECTIVE: Patient is seen and examined at bedside. Doing well. Offers no complaints. Denies any chest pain, SOB, dizziness, palpitations. OBJECTIVE: Vital Signs-as noted below Physical Exam: General Appearance:Moderately built and nourished, no apparent distress, chronically ill appearing Head: normocephalic, Atraumatic Eyes: normal inspection, EOMI, PERRLA Neck: supple, Trachea midline Respiratory/Chest: B/L minimal wheezes, decreased breath sounds Cardiovascular: S1, S2, NSR, No murmur Abdomen/GI:Soft, Non tender, Bowel sounds present Extremities/Musculoskelatal:left AKA. Right LE in bandage Neurologic/Psych:AAOX3, grossly no focal neurological deficits Skin: normal color, warm Lab data as noted below. ASSESSMENT & PLAN: NSTEMI: Elevated troponin EKG: No acute changes. Has chronic incomplete LBBB ECHO: severe LV dysfunction, EF 15-20% Completed IV heparin for 48 hours Continue ASA, statins, beta david Currently asymptomatic Appreciate Cardiology help H/O presumed ischemic cardiomyopathy Chronic Systolic Heart failure S/P ICD placed in 2014 after syncopal event Patient previously refused diagnostic cardiac cath ECHO in October 2015: LVEF 15-20% Continue dialysis per Nephrology HD scheduled for tomorrow Bacteremia: H/O Vertebral Osteomyelitis and diskitis in November 2015 H/O MRSA infection of permanent cath Blood cultures: Staph aureus in 2 bottles ID on board Bacteremia likely related to dialysis catheter Continue vanco with dialysis Continue Imipenem/Cilastin; Discussed with ID on 07/20/16 Repeat blood culture is pending: If positive, plan on tunneled line removal, if negative-would prefer to treat at dialysis unit per nephrology Also need to discuss with ID if needs catheter replacement Repeat blood culture: No growth to date Right Lower Extremity wound: H/O Vertebral Osteomyelitis and diskitis in November 2015 H/O MRSA infection of permanent cath Not a surgical candidate at that time due to comorbidities Continue antibiotics per ID Appreciate ID help Continue wound care ESRD on HD: Hyperkalemia: Resolved HD per Nephrology Appreciate Nephrology help Anemia of renal failure: Monitor Hb Last Hb:11.2 procrit on dialysis prn to keep Hb between 10 to 11 Acute on chronic hypoxic respiratory failure: On chronic oxygen 2-3 L at home Unclear etiology: likely secondary to comorbidities CTA:No evidence for pulmonary embolus. Healing discitis T12-L1 Currently saturating well on RA Nebs PRN Repeat CXR:Cardiomegaly. No acute findings. Currently saturating well on RA PVD: S/P left AKA September 2015 Continue current medications DM II: ISS/Lantus Accu checks DVT Px: SQ heparin Code Status: Full code Disposition: To be determined based on need for duration of IV antibiotics and ? removal for tunneled catheter PROCEDURES: ECHO: * The left ventricle is moderately dilated. * Ejection Fraction = 20-25%. * There is severe global hypokinesis of the left ventricle. * There is mild mitral regurgitation. * There is moderate tricuspid regurgitation. Vital Signs: Date Time Temp Pulse Resp B/P Pulse Ox O2 Delivery O2 Flow Rate FiO2 07/21/16 15:20 36.5 79 18 123/73 97 Room Air 07/21/16 08:06 Room Air 07/21/16 07:24 36.6 81 16 128/87 97 07/21/16 00:11 Room Air 07/20/16 23:40 36.8 80 20 130/83 96 Room Air 07/20/16 20:15 Room Air 07/20/16 17:00 Room Air 07/20/16 16:38 37.0 79 18 132/80 94 Room Air Lab Results: Results Past 24 Hours Test 07/20/16 16:37 07/20/16 20:07 07/20/16 20:09 07/21/16 05:51 Range/Units Bedside Glucose 167 320 263 70-99 mg/dl White Blood Count 7.88 4.8-10.8 K/uL Red Blood Count 3.86 4.7-6.1 M/uL Hemoglobin 11.2 14.0-18.0 g/dL Hematocrit 34.0 42-52 % Mean Corpuscular Volume 88.1 80-100 fL Mean Corpuscular Hemoglobin 29.0 25-34 pg Mean Corpuscular Hemoglobin Concent 32.9 32-36 g/dl RDW Standard Deviation 48.6 36.4-46.3 fL RDW Coefficient of Variation 15.0 11.5-14.5 % Platelet Count 172 130-400 K/uL Mean Platelet Volume 9.3 7.4-10.4 fL Sodium Level 134 136-145 mmol/L Potassium Level 4.3 3.5-5.1 mmol/L Chloride Level 94 98-107 mmol/L Carbon Dioxide Level 28 21-32 mmol/L Anion Gap 12.0 3-11 mmol/L Blood Urea Nitrogen 66 7-18 mg/dl Creatinine 6.00 0.60-1.40 mg/dl Est Creatinine Clear Calc Drug Dose 11.7 ml/min Estimated GFR () 11.0 Estimated GFR (Non- 9.5 BUN/Creatinine Ratio 11.1 10-20 Random Glucose 153 70-99 mg/dl Calcium Level 9.1 8.5-10.1 mg/dl Test 07/21/16 07:28 07/21/16 11:42 Range/Units Bedside Glucose 268 177 70-99 mg/dl
[2016-07-21] MEDS: COLLAGENASE OINT 30 GM TUBE EXT SCH (20:51)
[2016-07-21 23:53] VITALS: BP 125/82; PULSE 106; TEMP 36.6; O2SAT 95
[2016-07-22] VITALS (18 sets, daily range): BP systolic 91–133; BP diastolic 57–92; PULSE 60–100; TEMP 36.7–37; O2SAT 93–97
[2016-07-22] MEDS: IMIPENEM/CILASTATIN IV 500 MG in D5W 100ML IV SCH (04:06)
[2016-07-22] MEDS: OXYCODONE HCL 15 MG TABCR (OXYCONTIN) PO SCH ×2 (05:43→13:42)
[2016-07-22] MEDS: GABAPENTIN 100 MG CAP PO SCH ×2 (05:43→13:29)
[2016-07-22] MEDS: HEPARIN SOD 5000 UNIT/0.5 ML CARP SQ SCH ×2 (05:44→13:27)
[2016-07-22] MEDS: CALCIUM ACETATE 667MG GELCAP PO SCH ×2 (05:44→11:00)
[2016-07-22] MEDS: FLUTICASONE/SALMETEROL 250/50 (ADVAIR) 14 PUFF/1 INHALER INH SCH (07:47)
[2016-07-22] MEDS: ASCORBIC ACID 500 MG TAB PO SCH (07:47)
[2016-07-22] MEDS: IPRATROPIUM BROMIDE/ALBUTEROL respimat INH INH SCH ×2 (07:47→13:25)
[2016-07-22] MEDS: ATORVASTATIN 40 MG TAB PO SCH (07:48)
[2016-07-22] MEDS: LACTOBACILLUS ACIDOPHILUS (FLORANEX) TAB PO SCH ×2 (07:48→13:27)
[2016-07-22] MEDS: ASPIRIN 81 MG ECTAB PO SCH (07:48)
[2016-07-22] MEDS: GUAIFENESIN 600 MG TABCR PO PRN (07:48)
[2016-07-22] MEDS: POLYETHYLENE (MIRALAX) 17 GM PACK PO SCH (07:48)
[2016-07-22] MEDS: DOCUSATE SODIUM/SENNA 50/8.6MG TAB PO SCH (07:50)
[2016-07-22] MEDS: LORATADINE 10 MG TAB PO SCH (07:50)
[2016-07-22] MEDS: METOPROLOL SUCC 25MG EXT REL TAB PO SCH (07:51)
[2016-07-22] MEDS: FERROUS SULFATE 325 MG TAB PO SCH (07:51)
[2016-07-22] MEDS: PANTOprazole SOD 40 MG TAB PO SCH (07:52)
[2016-07-22] MEDS: CHOLECALCIFEROL 1000 INTER.UNIT TAB PO SCH (07:52)
[2016-07-22] MEDS: DEXAMETHASONE 1 MG TAB PO SCH (07:52)
[2016-07-22] MEDS: INSULIN ASPART 100 UNITS/ML 3 ML PEN SC SCH ×2 (07:59→11:00)
[2016-07-22] MEDS: LORAZEPAM 0.5 MG TAB PO SCH ×2 (07:59→13:42)
[2016-07-22] MEDS ORDERED: ALBUMIN HUMAN 25% 12.5 GM/50 ML VIAL IV SCH (08:30)
[2016-07-22 09:17] LABS: BUN/CREATININE RATIO 12.2 (10-20); CALCIUM 9.5 mg/dl (8.5-10.1); CREATININE 6.7 mg/dl (0.60-1.40)
--- NOTE | 2016-07-22 09:39 | Dialysis Progress Note ---
Nephrology Dialysis Note Date of Service: Jul 22, 2016. Subjective 56 yo unfortunate male with esrd with mrsa bacteremia and nstemi. no longer on heparin drip. repeat cultures negative. bp is better. pt appears great to me clinically. in good spirits. seen on dialysis. catheter has been in place for a long time and works well. no tenderness over the catheter, no drainage. Objective Date Time Temp Pulse Resp B/P Pulse Ox O2 Delivery O2 Flow Rate FiO2 07/22/16 07:16 36.7 88 16 131/92 97 Room Air 07/22/16 00:22 Room Air 07/21/16 23:53 36.6 106 20 125/82 95 Room Air 07/21/16 19:59 Room Air 3.0 Mask 07/21/16 16:17 Room Air 07/21/16 15:20 36.5 79 18 123/73 97 Room Air Physical Exam: General-aaox3 Eyes-no scleral icterus ENT-mmm Neck-supple Lungs-cta Heart-rrr Abdomen-bs+, soft, nontender Extremities-left aka, no edema Neuro-nonfocal Derm-right knee wound-wrapped -chronic blair Current Inpatient Medications Medications (Trade) Dose Ordered Sig/Edin Route Start Time Stop Time Status Last Admin Dose Admin Ondansetron HCl (Zofran Inj) 4 mg Q6H PRN IV 07/15/16 06:45 08/14/16 06:44 Aspirin (Ecotrin Tab) 81 mg QAM PO 07/16/16 09:00 08/15/16 08:59 07/22/16 07:48 81 MG Polyethylene (Miralax Powder Packet) 17 gm DAILY PRN PO 07/15/16 06:45 08/14/16 06:44 Insulin Aspart (novoLOG ASPART) SLIDING SCALE If C... ACHS SC 07/15/16 07:00 08/14/16 06:59 07/22/16 07:59 6 UNITS Glucose (Glucose 40% Gel) 15-30 GRAMS 15 GRAMS... UD PRN PO 07/15/16 06:45 08/14/16 06:44 Glucose (Glucose Chew Tab) 4-8 Tablets 4 Tabl... UD PRN PO 07/15/16 06:45 08/14/16 06:44 Dextrose (Dextrose 50% 50ML Syringe) 25-50ML OF 50% DW IV FOR... UD PRN IV 07/15/16 06:45 08/14/16 06:44 Glucagon (Glucagon Inj) 1 mg UD PRN SQ 07/15/16 06:45 08/14/16 06:44 Vancomycin HCl (Consult) 1 ea UD PRN N/A 07/15/16 07:15 08/14/16 07:14 Ascorbic Acid (Vitamin C Tab) 500 mg MoWeFr@0900 PO 07/17/16 09:00 08/16/16 08:59 07/22/16 07:47 500 MG Collagenase (Santyl Oint) 1 appln HS EXT 07/15/16 21:00 08/14/16 20:59 07/21/16 20:51 1 APPLN Salmeterol Xinafoate/ Fluticasone (Advair Diskus 250/50 Inh) 1 puff BID INH 07/15/16 21:00 08/14/16 20:59 07/22/16 07:47 1 PUFF Gabapentin (Neurontin Cap) 200 mg Q8 PO 07/15/16 14:00 08/14/16 13:59 07/22/16 05:43 200 MG Lactobacillus Acidophilus (Floranex Tab) 1 tab TID PO 07/15/16 14:00 08/14/16 13:59 07/22/16 07:48 1 TAB Loratadine (Claritin Tab) 10 mg DAILY PO 07/16/16 09:00 08/15/16 08:59 07/22/16 07:50 10 MG Lorazepam (Ativan Tab) 0.5 mg TID PO 07/15/16 14:00 08/14/16 13:59 07/22/16 07:59 0.5 MG Metoprolol Succinate (Toprol Xl Tab) 25 mg DAILY PO 07/16/16 09:00 08/15/16 08:59 07/21/16 08:36 25 MG Oxycodone HCl (Oxycontin Tab) 30 mg Q8 PO 07/15/16 14:00 07/29/16 13:59 07/22/16 05:43 30 MG Senna/Docusate Sodium (Senokot S Tab) 1 tab DAILY PO 07/16/16 09:00 08/15/16 08:59 07/22/16 07:50 1 TAB Cholecalciferol (Vitamin D Tab) 5,000 inter.unit QAM PO 07/16/16 09:00 08/15/16 08:59 07/22/16 07:52 5,000 INTER.UNIT Dexamethasone (Decadron Tab) 2 mg DAILY PO 07/16/16 09:00 08/15/16 08:59 07/22/16 07:52 2 MG Ferrous Sulfate (Feosol Tab) 325 mg QAM PO 07/16/16 09:00 08/15/16 08:59 07/22/16 07:51 325 MG Pantoprazole Sodium (Protonix Tab) 40 mg QAM PO 07/16/16 09:00 08/15/16 08:59 07/22/16 07:52 40 MG Polyethylene (Miralax Powder Packet) 17 gm DAILY PO 07/16/16 09:00 08/15/16 08:59 07/22/16 07:48 17 GM Calcium Acetate (Phoslo Cap) 1,334 mg AC PO 07/15/16 11:00 08/14/16 10:59 07/22/16 05:44 1,334 MG Atorvastatin Calcium (Lipitor Tab) 40 mg QAM PO 07/16/16 09:00 08/15/16 08:59 07/22/16 07:48 40 MG Albuterol/ Ipratropium (Combivent Respimat Inh) 1 puffs QID INH 07/16/16 17:00 08/15/16 16:59 07/22/16 07:47 1 PUFFS Imipenem/ Cilastatin Sodium 1 ea 1 ea UD PRN N/A 07/17/16 14:30 08/16/16 14:29 Imipenem/ Cilastatin Sodium/ Dextrose (Primaxin Iv/D5 100ml) 110 ml @ 110 mls/hr Q12H IV 07/17/16 16:00 07/27/16 15:59 07/22/16 04:06 110 MLS/HR Heparin Sodium (Porcine) (Heparin Sq 5000 Unit/0.5ml) 5,000 unit Q8 SQ 07/19/16 14:00 08/18/16 13:59 07/21/16 20:57 5,000 UNIT Guaifenesin (Mucinex Contr Rel Tab) 600 mg Q12 PRN PO 07/20/16 17:45 4/3/17 17:44 07/22/16 07:48 600 MG Albumin Human (Albumin 25%) 12.5 gm TODAY@0830 IV 07/22/16 08:30 07/22/16 18:00 Last 24 Hours Test 07/21/16 11:42 07/21/16 16:12 07/21/16 20:09 07/22/16 07:24 Bedside Glucose 177 mg/dl 203 mg/dl 219 mg/dl 139 mg/dl Test 07/22/16 08:17 Sodium Level 134 mmol/L Potassium Level 4.0 mmol/L Chloride Level 93 mmol/L Carbon Dioxide Level 23 mmol/L Anion Gap 18.0 mmol/L Blood Urea Nitrogen 82 mg/dl Creatinine 6.70 mg/dl Est Creatinine Clear Calc Drug Dose 10.5 ml/min Estimated GFR () 9.7 Estimated GFR (Non- 8.3 BUN/Creatinine Ratio 12.2 Random Glucose 123 mg/dl Calcium Level 9.5 mg/dl Random Vancomycin Level 20.6 mcg/ml Assessment & Plan ESRD-seen on dialysis. bp is good. volume status is acceptable. catheter working well. pt feels good. Anemia of renal failure-giving procrit on dialysis prn to help keep hg between 10 to 11 ANNA-on phoslo and will follow phos levels intermittently in the hospital. ID-has mrsa bacteremia, may be from tunneled line and clinically improved on appropriate antibiotics. would like to send back to [facility] after dialysis today and continue the iv vanco at outpt unit and do surveillance cultures to see if we can treat through this. access working well with no tenderness and no drainage. no fevers. no leukocytosis. if repeat cultures are positive again as outpatient, will make plans to remove catheter and place new one once cultures are negative again.
--- NOTE | 2016-07-22 09:41 | Pharmacy Progress Note ---
Pharmacy Antibiotic Prog Note Date of Service: Jul 22, 2016. Subjective: The patient is currently receiving vancomycin 500 mg IV after dialysis. The patient is currently on day # 8 of IV therapy. Objective: Height (Feet): 5 Height (Inches): 0.00 Weight (Kilograms): 77.500 Levels: Item Value Date Time Random Vancomycin Level 14.9 mcg/ml 07/15/16 1410 Random Vancomycin Level 25.7 mcg/ml 07/16/16 0534 Random Vancomycin Level 21.8 mcg/ml 07/17/16 0639 Random Vancomycin Level 22.8 mcg/ml 07/19/16 0610 Random Vancomycin Level 20.6 mcg/ml 07/22/16 0817 Lab Results (24hrs): Laboratory Tests Test 07/22/16 08:17 BUN/Creatinine Ratio 12.2 Blood Urea Nitrogen 82 mg/dl Creatinine 6.70 mg/dl Micro Results: RUN DATE: 07/18/16 [facility] LAB PAGE 1 RUN TIME: 1435 Specimen Inquiry PATIENT: YOUNG HINKLE LOC: Star U # : [id number] AGE/SX: 56/M ROOM: E221 REG : 07/15/[address]: Henry Ayoub MD : 1960 BED: 1 DIS : STATUS: ADM IN TLOC: SPEC #: [id number] CLAUDIA: 07/15/16 STATUS: COMP REQ #: [id number] RECD: 07/15/[address] [facility] [address]: Eliseo Pollock PA- C SOURCE: BLOOD ENTR: 07/15/[address] [facility] DR: Destiney Dao D.O. [facility]: Delmi Avila ORDERED: BLOOD CULTURE Procedure Result Verified Site BLD CULT Final 07/18/16-1434 Organism 1 STAPHYLOCOCCUS AUREUS SENS SENSITIVITY TO FOLLOW SENSITIVITY RESULT INDICATES A METHICILLIN RESISTANT STAPH. AUREUS. PHONED TO SOPHIA YIN AND JAMEY WAGNER () ON 07/17/16 AT 0729 BY Aaron Mcgee. Results were verbalized back to YELITZA. VANCOMYCIN WAS RETESTED USING TURBIDITY METHODOLOGY PER PHARMACY REQUEST. VANCOMYCIN RETEST SANJU = 1.0 Phoned results to MARIAJOSE DUMONT on 07/15/16 at 0001 by Naheed Sosa. Results were verbalized back to BEVERLY. 1. STAPHYLOCOCCUS AUREUS Target Route Dose RX AB Cost M.I.C. IQ ------ ----- ------ -- ------ -------- - ------ TRIMET/SULFA S <=0.5/ 9.5 * OXACILLIN R * >2 VANCOMYCIN S 2 ERYTHROMYCIN R >4 TETRACYCLINE S <=4 CLINDAMYCIN R >4 DAPTOMYCIN S <=0.5 RIFAMPIN S <=1 S = SENSITIVE I = INTERMEDIATE R = RESISTANT Recent Pertinent Medications: Item Value Date Time Imipenem/ 110 ml @ 110 mls/hr 07/17/16 1600 Cilastatin Sodium Q12H/IV 07/22/16 0406 500 mg/Dextrose Assessment & Plan: Patient remains stable. Blood cultures from 07/18/16 remain negative. He is for dialysis today. These drug levels are: Therapeutic. Continue vancomycin 500 mg IV after dialysis. Goal peak level estimate: between 35 - 40 mcg/mL. Goal trough level estimate: between 15 - 20 mcg/mL (indication: MRSA bacteremia , SANJU = 1 mcg/mL for vancomycin). Random level has been ordered for: prior to dialysis. Pharmacy will continue to follow and will adjust dose/frequency as necessary. Thank you
--- NOTE | 2016-07-22 11:13 | Infectious Disease Progress Nt ---
Progress Note Date of Service Jul 22, 2016. Subjective Pt evaluation today including: conversation w/ patient, physical exam, chart review, lab review, review of studies, conversation w/ leasing sales consultant (Dr Smith), review of inpatient medication list WBC count yesterday 7.88. Patient is receiving hemodialysis this morning while I'm in the room. His chart was reviewed. Repeat blood cultures showing NGTD. Initials growing MRSA. Note that Dr. Flores prefers to keep dialysis cath. All Other Systems: Reviewed and Negative Medications Current Inpatient Medications Medications (Trade) Dose Ordered Sig/Edin Route Start Time Stop Time Status Last Admin Dose Admin Ondansetron HCl (Zofran Inj) 4 mg Q6H PRN IV 07/15/16 06:45 08/14/16 06:44 Aspirin (Ecotrin Tab) 81 mg QAM PO 07/16/16 09:00 08/15/16 08:59 07/22/16 07:48 81 MG Polyethylene (Miralax Powder Packet) 17 gm DAILY PRN PO 07/15/16 06:45 08/14/16 06:44 Insulin Aspart (novoLOG ASPART) SLIDING SCALE If C... ACHS SC 07/15/16 07:00 08/14/16 06:59 07/22/16 07:59 6 UNITS Glucose (Glucose 40% Gel) 15-30 GRAMS 15 GRAMS... UD PRN PO 07/15/16 06:45 08/14/16 06:44 Glucose (Glucose Chew Tab) 4-8 Tablets 4 Tabl... UD PRN PO 07/15/16 06:45 08/14/16 06:44 Dextrose (Dextrose 50% 50ML Syringe) 25-50ML OF 50% DW IV FOR... UD PRN IV 07/15/16 06:45 08/14/16 06:44 Glucagon (Glucagon Inj) 1 mg UD PRN SQ 07/15/16 06:45 08/14/16 06:44 Vancomycin HCl (Consult) 1 ea UD PRN N/A 07/15/16 07:15 08/14/16 07:14 Ascorbic Acid (Vitamin C Tab) 500 mg MoWeFr@0900 PO 07/17/16 09:00 08/16/16 08:59 07/22/16 07:47 500 MG Collagenase (Santyl Oint) 1 appln HS EXT 2/27/17 21:00 08/14/16 20:59 07/21/16 20:51 1 APPLN Salmeterol Xinafoate/ Fluticasone (Advair Diskus 250/50 Inh) 1 puff BID INH 07/15/16 21:00 08/14/16 20:59 07/22/16 07:47 1 PUFF Gabapentin (Neurontin Cap) 200 mg Q8 PO 07/15/16 14:00 08/14/16 13:59 07/22/16 05:43 200 MG Lactobacillus Acidophilus (Floranex Tab) 1 tab TID PO 07/15/16 14:00 08/14/16 13:59 07/22/16 07:48 1 TAB Loratadine (Claritin Tab) 10 mg DAILY PO 07/16/16 09:00 08/15/16 08:59 07/22/16 07:50 10 MG Lorazepam (Ativan Tab) 0.5 mg TID PO 07/15/16 14:00 08/14/16 13:59 07/22/16 07:59 0.5 MG Metoprolol Succinate (Toprol Xl Tab) 25 mg DAILY PO 07/16/16 09:00 08/15/16 08:59 07/21/16 08:36 25 MG Oxycodone HCl (Oxycontin Tab) 30 mg Q8 PO 07/15/16 14:00 07/29/16 13:59 07/22/16 05:43 30 MG Senna/Docusate Sodium (Senokot S Tab) 1 tab DAILY PO 07/16/16 09:00 08/15/16 08:59 07/22/16 07:50 1 TAB Cholecalciferol (Vitamin D Tab) 5,000 inter.unit QAM PO 07/16/16 09:00 08/15/16 08:59 07/22/16 07:52 5,000 INTER.UNIT Dexamethasone (Decadron Tab) 2 mg DAILY PO 07/16/16 09:00 08/15/16 08:59 07/22/16 07:52 2 MG Ferrous Sulfate (Feosol Tab) 325 mg QAM PO 07/16/16 09:00 08/15/16 08:59 07/22/16 07:51 325 MG Pantoprazole Sodium (Protonix Tab) 40 mg QAM PO 07/16/16 09:00 08/15/16 08:59 07/22/16 07:52 40 MG Polyethylene (Miralax Powder Packet) 17 gm DAILY PO 07/16/16 09:00 08/15/16 08:59 07/22/16 07:48 17 GM Calcium Acetate (Phoslo Cap) 1,334 mg AC PO 07/15/16 11:00 08/14/16 10:59 07/22/16 05:44 1,334 MG Atorvastatin Calcium (Lipitor Tab) 40 mg QAM PO 07/16/16 09:00 08/15/16 08:59 07/22/16 07:48 40 MG Albuterol/ Ipratropium (Combivent Respimat Inh) 1 puffs QID INH 07/16/16 17:00 08/15/16 16:59 07/22/16 07:47 1 PUFFS Imipenem/ Cilastatin Sodium 1 ea 1 ea UD PRN N/A 07/17/16 14:30 08/16/16 14:29 Imipenem/ Cilastatin Sodium/ Dextrose (Primaxin Iv/D5 100ml) 110 ml @ 110 mls/hr Q12H IV 07/17/16 16:00 07/27/16 15:59 07/22/16 04:06 110 MLS/HR Heparin Sodium (Porcine) (Heparin Sq 5000 Unit/0.5ml) 5,000 unit Q8 SQ 07/19/16 14:00 08/18/16 13:59 07/21/16 20:57 5,000 UNIT Guaifenesin (Mucinex Contr Rel Tab) 600 mg Q12 PRN PO 07/20/16 17:45 08/19/16 17:44 07/22/16 07:48 600 MG Albumin Human 12.5 gm 12.5 gm TODAY@0830 IV 07/22/16 08:30 07/22/16 18:00 Vancomycin HCl/ Sodium Chloride (Vancomycin Inj/ Nss 250ml) 260 ml @ 125 mls/hr TODAY@1600 IV 07/22/16 16:00 07/22/16 18:05 Objective Vital Signs Date Time Temp Pulse Resp B/P Pulse Ox O2 Delivery O2 Flow Rate FiO2 07/22/16 10:45 92 119/80 07/22/16 10:30 91 108/76 07/22/16 10:15 97 102/66 07/22/16 10:00 90 107/76 07/22/16 09:45 100 93/80 07/22/16 09:38 37.0 85 125/85 07/22/16 09:30 98 130/82 07/22/16 08:00 97 Room Air 07/22/16 07:16 36.7 88 16 131/92 97 Room Air 07/22/16 00:22 Room Air 07/21/16 23:53 36.6 106 20 125/82 95 Room Air 07/21/16 19:59 Room Air 3.0 Mask 07/21/16 16:17 Room Air 07/21/16 15:20 36.5 79 18 123/73 97 Room Air Physical Exam General Appearance: WD/WN, no apparent distress Eyes: normal inspection, sclerae normal ENT: hearing grossly normal Neck: supple, trachea midline Respiratory/Chest: no respiratory distress, no accessory muscle use, + pertinent finding (right chest wall dialysis cath) Cardiovascular: regular rate, rhythm Extremities: normal inspection Neurologic/Psychiatric: alert, normal mood/affect Skin: warm/dry, no rash, + pertinent finding (right knee noted to have large open ulceration with continued yellow/white biofilm) Laboratory Results RUN DATE: 07/18/16 [facility] LAB PAGE 1 RUN TIME: 0434 Specimen Inquiry PATIENT: YOUNG HINKLE LOC: Star Soto # : [id number] AGE/SX: 56/M ROOM: E221 REG : 07/15/[address]: Henry Ayoub MD : 1960 BED: 1 DIS : STATUS: ADM IN TLOC: SPEC #: [id number] CLAUDIA: 07/15/16 STATUS: COMP REQ #: [id number] RECD: 07/15/16-[address]: Eliseo Pollock PA- C SOURCE: BLOOD ENTR: 07/15/16 [facility] DR: Destiney Dao D.O. [facility]: Delmi Avila ORDERED: BLOOD CULTURE Procedure Result Verified Site BLD CULT Final 07/18/16-7274 Organism 1 STAPHYLOCOCCUS AUREUS SENS SENSITIVITY TO FOLLOW SENSITIVITY RESULT INDICATES A METHICILLIN RESISTANT STAPH. AUREUS. PHONED TO SOPHIA YIN AND JAMEY XIE) ON 07/17/16 AT 0729 BY Aaron S Walk. Results were verbalized back to YELITZA. VANCOMYCIN WAS RETESTED USING TURBIDITY METHODOLOGY PER PHARMACY REQUEST. VANCOMYCIN RETEST SANJU = 1.0 Phoned results to MARIAJOSE DUMONT on 07/15/16 at 0001 by Naheed Sosa. Results were verbalized back to BEVERLY. 1. STAPHYLOCOCCUS AUREUS Target Route Dose RX AB Cost M.I.C. IQ ------ ----- ------ -- ------ -------- - ------ TRIMET/SULFA S <=0.5/ 9.5 * OXACILLIN R * >2 VANCOMYCIN S 2 ERYTHROMYCIN R >4 TETRACYCLINE S <=4 CLINDAMYCIN R >4 DAPTOMYCIN S <=0.5 RIFAMPIN S <=1 S = SENSITIVE I = INTERMEDIATE R = RESISTANT Item Value Date Time Blood Culture - Preliminary Resulted 07/18/16 0802 Blood NO GROWTH TO DATE. Urine Culture - Final Complete 07/15/16 1920 Urine,Catheterized NO GROWTH - LESS THAN 1,000 COLONIES/ML Blood Culture - Final Complete 07/15/16 0124 Blood Staphylococcus Aureus Blood Culture - Final Complete 07/15/16 0120 Blood Staphylococcus Aureus Last 24 Hours Test 07/21/16 11:42 07/21/16 16:12 07/21/16 20:09 07/22/16 07:24 Bedside Glucose 177 mg/dl 203 mg/dl 219 mg/dl 139 mg/dl Test 07/22/16 08:17 Sodium Level 134 mmol/L Potassium Level 4.0 mmol/L Chloride Level 93 mmol/L Carbon Dioxide Level 23 mmol/L Anion Gap 18.0 mmol/L Blood Urea Nitrogen 82 mg/dl Creatinine 6.70 mg/dl Est Creatinine Clear Calc Drug Dose 10.5 ml/min Estimated GFR () 9.7 Estimated GFR (Non- 8.3 BUN/Creatinine Ratio 12.2 Random Glucose 123 mg/dl Calcium Level 9.5 mg/dl Random Vancomycin Level 20.6 mcg/ml Assessment and Plan 56 yo diabetic male with ESRD on dialysis with prior diskitis/vertebral osteomyelitis, MRSA infection of permacath and most recently infected skin ulceration of leg with Pseudomonas with acute SOB on admission- now improved. Repeat blood culture showing NGTD. The patient is currently on IV Primaxin and Vancomycin. Recommend continuing IV Vancomycin to complete 6 weeks following first negative blood cultures. Also would continue IV Primaxin for at least another 1-2 weeks due to continued biofilm in right leg wound. The patient should follow up with Dr. Monk at the wound care center prior to discontinuation. Otherwise, patient is OK for D/C from ID perspective otherwise. case reviewed and agree with above assessment.
--- NOTE | 2016-07-22 12:03 | Progress Note ---
Internal Med Progress Note Date of Service: Jul 22, 2016. Provider Documentation: SUBJECTIVE: Patient is seen and examined at bedside. Currently getting hemodialysis. Feels well. Offers no complaints. Denies any chest pain, SOB. OBJECTIVE: Vital Signs-as noted below Physical Exam: General Appearance:Moderately built and nourished, no apparent distress, chronically ill appearing Head: normocephalic, Atraumatic Eyes: normal inspection, EOMI, PERRLA Neck: supple, Trachea midline Respiratory/Chest: B/L minimal wheezes, decreased breath sounds Cardiovascular: S1, S2, NSR, No murmur Abdomen/GI:Soft, Non tender, Bowel sounds present Extremities/Musculoskelatal:left AKA. Right LE in bandage Neurologic/Psych:AAOX3, grossly no focal neurological deficits Skin: normal color, warm Lab data as noted below. ASSESSMENT & PLAN: NSTEMI: Elevated troponin EKG: No acute changes. Has chronic incomplete LBBB ECHO: severe LV dysfunction, EF 15-20% Completed IV heparin for 48 hours Continue ASA, statins, beta david Currently asymptomatic Appreciate Cardiology help H/O presumed ischemic cardiomyopathy Chronic Systolic Heart failure S/P ICD placed in 2014 after syncopal event Patient previously refused diagnostic cardiac cath ECHO in October 2015: LVEF 15-20% Continue dialysis per Nephrology HD scheduled for tomorrow Bacteremia: H/O Vertebral Osteomyelitis and diskitis in November 2015 H/O MRSA infection of permanent cath Blood cultures: Staph aureus in 2 bottles ID on board Bacteremia likely related to dialysis catheter Continue vanco with dialysis Continue Imipenem/Cilastin; Discussed with ID on 07/20/16 Repeat blood culture is pending: If positive, plan on tunneled line removal, if negative-would prefer to treat at dialysis unit per nephrology Also need to discuss with ID if needs catheter replacement Repeat blood culture: No growth to date Right Lower Extremity wound: H/O Vertebral Osteomyelitis and diskitis in November 2015 H/O MRSA infection of permanent cath Not a surgical candidate at that time due to comorbidities Continue antibiotics per ID Appreciate ID help Continue wound care ESRD on HD: Hyperkalemia: Resolved HD per Nephrology Appreciate Nephrology help Anemia of renal failure: Monitor Hb Last Hb:11.2 procrit on dialysis prn to keep Hb between 10 to 11 Acute on chronic hypoxic respiratory failure: On chronic oxygen 2-3 L at home Unclear etiology: likely secondary to comorbidities CTA:No evidence for pulmonary embolus. Healing discitis T12-L1 Currently saturating well on RA Nebs PRN Repeat CXR:Cardiomegaly. No acute findings. Currently saturating well on RA PVD: S/P left AKA September 2015 Continue current medications DM II: ISS/Lantus Accu checks DVT Px: SQ heparin Code Status: Full code Disposition: Plan to discharge to [facility] today Continue IV Vancomycin during dialysis to complete 6 weeks duration Started on July 18 to continue to till August 29. Continue IV Primaxin for 14 days Follow up with Dr. Monk at the wound care center in 1 week. Continue dialysis per recommendations from Nephrology Follow up with on July 26 at 12:50Am at [facility]. 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 Continue wound care at [facility] PROCEDURES: ECHO: * The left ventricle is moderately dilated. * Ejection Fraction = 20-25%. * There is severe global hypokinesis of the left ventricle. * There is mild mitral regurgitation. * There is moderate tricuspid regurgitation. Vital Signs: Date Time Temp Pulse Resp B/P Pulse Ox O2 Delivery O2 Flow Rate FiO2 07/22/16 11:45 80 91/79 07/22/16 11:30 92 101/70 07/22/16 11:15 60 110/64 07/22/16 11:00 100 119/87 07/22/16 10:45 92 119/80 07/22/16 10:30 91 108/76 07/22/16 10:15 97 102/66 07/22/16 10:00 90 107/76 07/22/16 09:45 100 93/80 07/22/16 09:38 37.0 85 125/85 07/22/16 09:30 98 130/82 07/22/16 08:00 97 Room Air 07/22/16 07:16 36.7 88 16 131/92 97 Room Air 07/22/16 00:22 Room Air 07/21/16 23:53 36.6 106 20 125/82 95 Room Air 07/21/16 19:59 Room Air 3.0 Mask 07/21/16 16:17 Room Air 07/21/16 15:20 36.5 79 18 123/73 97 Room Air Lab Results: Results Past 24 Hours Test 07/21/16 16:12 07/21/16 20:09 07/22/16 07:24 07/22/16 08:17 Range/Units Bedside Glucose 203 219 139 70-99 mg/dl Sodium Level 134 136-145 mmol/L Potassium Level 4.0 3.5-5.1 mmol/L Chloride Level 93 98-107 mmol/L Carbon Dioxide Level 23 21-32 mmol/L Anion Gap 18.0 3-11 mmol/L Blood Urea Nitrogen 82 7-18 mg/dl Creatinine 6.70 0.60-1.40 mg/dl Est Creatinine Clear Calc Drug Dose 10.5 ml/min Estimated GFR () 9.7 Estimated GFR (Non- 8.3 BUN/Creatinine Ratio 12.2 10-20 Random Glucose 123 70-99 mg/dl Calcium Level 9.5 8.5-10.1 mg/dl Random Vancomycin Level 20.6 mcg/ml Test 07/22/16 11:27 Range/Units Bedside Glucose 122 70-99 mg/dl
[2016-07-22] MEDS ORDERED: MRLP17X PO (12:46)
[2016-07-22] MEDS ORDERED: LPT40 PO (12:46)
[2016-07-22] MEDS ORDERED: IPRA1AER2 INH (12:46)
--- NOTE | 2016-07-22 12:53 | Discharge Summary ---
Discharge Summary Date of Service Jul 22, 2016. Discharge Summary Admission Date: Jul 15, 2016 at 06:43 Discharge Date: Jul 22, 2016 [facility] Principal Diagnosis: NSTEMI, Bacteremia Procedures: CXR: 1. Cardiomegaly and AICD. There is no radiographic evidence of congestive failure. 2. There is no airspace consolidation typical for pneumonia or large pleural effusion. CT head: There is no hemorrhage, mass effect, or evidence of acute territorial ischemia by CT criteria. LE doppler: Normal study CT for PE: No evidence for pulmonary embolus. Healing discitis T12-L1 Repeat CXR: Cardiomegaly. No acute findings. Consultations: Nephrology, ID, Cardiology Pending Studies/Follow-Up: Continue IV Vancomycin during dialysis to complete 6 weeks duration Started on July 18 to continue to till August 29. Continue IV Primaxin for 14 days Follow up with Dr. Monk at the wound care center in 1 week. Continue dialysis per recommendations from Nephrology Follow up with on July 26 at 12:50Am at [facility]. Follow up with your ceramic research engineer per recommendations from your PCP. Continue wound care at [facility] Seek immediate medical attention if your symptoms reoccur or worsen. Medication Reconciliation New Medications: Atorvastatin (Atorvastatin Calcium) 40 Mg Tab 40 MG PO QAM for 30 Days, #30 TAB 1 Refill Ipratropium-Albuterol (Combivent Respimat) 1 Aer Aer 1 PUFFS INH QID for 30 Days, #1 1 Refill Polyethylene (Miralax) 17 Gm Pow 17 GM PO DAILY PRN for Constipation for 30 Days, #10 Continued Medications: Acetaminophen Tab (Tylenol) 325 Mg Tab 650 MG PO Q6 PRN for PAIN RATED 1-5 DO NOT EXCEED 3MG/24HR Ascorbic Acid (Vitamin C) 500 Mg Tab 500 MG PO 3XWK TAKE DAILY ON FRI/FRI/FRIDAY Aspirin (Aspirin Ec) 81 Mg Tab 81 MG PO DAILY TAKE ON FRI,FRI,FRI @ 0400 TAKE ON TU,TH,SAT,SUN @ 0800 Calcium Acetate (Phosphate Bin (Phoslo 667 Mg) 667 Mg Cap 2 CAPSULES PO WM, CAP Calcium Alginate (Bulk) (Calcium Alginate) 1 Pow Pow 1 APPLN DAILY AND PRN CLEANSE LEFT BUTTOCK SITE WITH NSS,APPLY CALCIUM ALGINATE TO WOUND BASE AND COVER WITH SILICONE BORDER. Cholecalciferol (Vitamin D3) 5,000 Unit Tab 5000 UNIT PO DAILY Collagenase (Santyl) 250 Unit/Gm Oin 1 APPLN TOP Q EVENING SHIFT RIGHT KNEE..CLEANSE WITH NSS,PAT DRY AND COVER WITH SANTYL AND GAUZE Dexamethasone (Dexamethasone) 2 Mg Tab 2 MG PO DAILY Ferrous Sulfate (Kp Ferrous Sulfate) 325 Mg Tab 1 TAB PO DAILY, 3 Refills Fluticasone Prop/Salmeterol (Advair Diskus 250/50 60 Dose) 1 Ea Aerp 1 PUFFS INH BID, 3 Refills Gabapentin (Neurontin) 100 Mg Cap 200 MG PO Q8 Insulin Aspart (Novolog) Inj SC ACHS, BTL Sliding scale: 0-150 = 0 units, 151-200 = 6 units, 201-250 = 8 units, 251-300 = 10 units, 301- 350 = 12 units, 351- 400 = 14 units, 401- 450 = 16 units, 451+ call physician, subcutaneously before meals and at bedtime related to TYPE 2 Diabetes Mellitus Insulin Glargine (Lantus) 100 Unit/Ml Inj 5 UNITS SC AMPM Lactobacillus Acidophilus (Lactinex) Tab 1 TAB PO TID, TAB Loratadine (Claritin) 10 Mg Tab 10 MG PO DAILY GIVE AT 0400 ON FRI,FRI,FRI GIVE AT 0800 ON ,,FRI,FRI Lorazepam (Ativan) 0.5 Mg Tab 0.5 MG PO TID, TAB Metoprolol Succ (Toprol Xl) (Toprol-Xl) 25 Mg Tabcr 25 MG PO DAILY HOLD FOR AP HR <50 Omeprazole (Prilosec) 20 Mg Capcr 20 MG PO DAILY TAKE AT 0400 ON FRI,FRI,FRIDAYS TAKE AT 0800 ON ,,FRI,SUNDAYS Oxycodone Hcl (Oxycontin) 15 Mg Tab 30 MG PO Q8 DO NOT USE TOGETHER WITH ATIVAN TAKE 1 HOUR AWAY FROM OXY IR Oxycodone Ir (Roxicodone Ir) 5 Mg Tab 10 MG PO Q1H PRN for Severe Pain TO BE GIVEN 1 HOUR APART FROM OXY 30MG GIVE FOR PAIN RATED 6-10 Oxygen (Oxygen) Gas 3 LITERS NA PRN PRN for Shortness of Breath Polyethylene Glycol 3350 (Miralax) 1 Pow Pow 17 GM PO DAILY GIVE AT 0400 ON FRI,FRI,FRI GIVE AT 0800 ON SUN,TUES,THURS,SAT Senna/Docusate Sod (Senokot S) 1 Tab Tab 1 TAB PO DAILY, TAB Vancomycin Hcl In Dextrose (Vancomycin Hcl In Dextros) 1 Inj Inj 1 GM IV 3XWK SEND TO DIALYSIS WITH PT ON FRI,FRI,FRI..WILL RECIEVE THERE Admission Information HPI (per Admitting provider): 56 yoM with MMPs including ICM s/p ICD placement, ESRD on HD presents with acute worsening of shortness of breath. He states that he uses oxygen "as needed to give me a boost" and states this was ordered for him several years ago , however, he has needed it more often this week and continuously today. He denies cough, fevers, or chills but has a wet cough during my exam a couple of times. He denies any known lung disease and is a prior smoker with a 15 pack year history who quit smoking in 1999. ROS reveals no chest pain, weight gain ( but he isn't sure what his weight is), fevers, chills, nausea, vomiting, diarrhea, blood per rectum, urinary tract symptoms or worsening of pain. He does have a knee wound that is chronic and is seen in the wound clinic regularly for care. He reports a recent debridement without increased worsening of pain or drainage. He denies palpitations or ICD firing. He reports that he has still been able to roll himself around in his wheelchair this week despite the shortness of breath, but otherwise, he is wheelchair- bound. He has a complicated medical history with an admission September 2015 for severe sepsis 2/2 bilateral LE cellulitis requiring a L above the knee amputation. He reports that he is awaiting a prosthesis, and he currently in a resident at [facility]. He was then admitted for sepsis 2/2 a staph aureus infection of his Perm cath. Then in November 2015, he was admitted to [facility] in [place] with back pain, and was found to have osteomyelitis and discitis in his spine at T12-L2 levels. He was deemed non-operable because of his risk from chronic comorbidities and underwent IV abx therapy, and chcf doxy for chronic suppression of bacteremia. Physical Exam (per Admitting): GEN: WNWD, in no acute distress, alert and appropriate, oxygen in place via NC, no conversational dyspnea. HEENT: NC/AT, PERRL, normal sclerae, pharynx non-acute, MMM CARDIO: reg rate, S1/2 heard without m/g/r, +JVD LUNGS: coarse breath sounds bilaterally with wheezing in lower lung camacho. ABD: soft, non-tender, non-distended, no rebound or guarding EXTREMITY: s/p L AKA with well-healed stump, RLE is warm and well perfused. 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 Knee wrapped with Kerlex and there are Stage II wounds with good granulation tissue and no surrounding areas of erythema present. NEURO: CN 2-12 grossly intact, sensation intact throughout MUSC: cannot sit up on his own, appears deconditioned, no gross focal deficits. SKIN: warm and dry and wound as above. Hospital Course NSTEMI: Elevated troponin EKG: No acute changes. Has chronic incomplete LBBB ECHO: severe LV dysfunction, EF 15-20% Completed IV heparin for 48 hours Continue ASA, statins, beta david Currently asymptomatic Appreciate Cardiology help H/O presumed ischemic cardiomyopathy Chronic Systolic Heart failure S/P ICD placed in 2014 after syncopal event Patient previously refused diagnostic cardiac cath ECHO in October 2015: LVEF 15-20% Continue dialysis per Nephrology HD scheduled for tomorrow Bacteremia: H/O Vertebral Osteomyelitis and diskitis in November 2015 H/O MRSA infection of permanent cath Blood cultures: Staph aureus in 2 bottles ID on board Bacteremia likely related to dialysis catheter Continue vanco with dialysis Continue Imipenem/Cilastin; Discussed with ID on 07/20/16 Repeat blood culture is pending: If positive, plan on tunneled line removal, if negative-would prefer to treat at dialysis unit per nephrology Also need to discuss with ID if needs catheter replacement Repeat blood culture: No growth to date Right Lower Extremity wound: H/O Vertebral Osteomyelitis and diskitis in November 2015 H/O MRSA infection of permanent cath Not a surgical candidate at that time due to comorbidities Continue antibiotics per ID Appreciate ID help Continue wound care ESRD on HD: Hyperkalemia: Resolved HD per Nephrology Appreciate Nephrology help Anemia of renal failure: Monitor Hb Last Hb:11.2 procrit on dialysis prn to keep Hb between 10 to 11 Acute on chronic hypoxic respiratory failure: On chronic oxygen 2-3 L at home Unclear etiology: likely secondary to comorbidities CTA:No evidence for pulmonary embolus. Healing discitis T12-L1 Currently saturating well on RA Nebs PRN Repeat CXR:Cardiomegaly. No acute findings. Currently saturating well on RA PVD: S/P left AKA September 2015 Continue current medications DM II: ISS/Lantus Accu checks DVT Px: SQ heparin Code Status: Full code Disposition: Plan to discharge to [facility] today Continue IV Vancomycin during dialysis to complete 6 weeks duration Started on July 18 to continue to till August 29. Continue IV Primaxin for 14 days Follow up with Dr. Monk at the wound care center in 1 week. Continue dialysis per recommendations from Nephrology Follow up with on July 26 at 12:50Am at [facility]. Follow up with your ceramic research engineer per recommendations from your PCP. Continue wound care at [facility] PROCEDURES: ECHO: * The left ventricle is moderately dilated. * Ejection Fraction = 20-25%. * There is severe global hypokinesis of the left ventricle. * There is mild mitral regurgitation. * There is moderate tricuspid regurgitation. Total time spent on discharge = 38 minutes This includes examination of the patient, discharge planning, medication reconciliation, and communication with other providers. Discharge Instructions Discharge Instructions Date of Service Jul 22, 2016. Admission Reason for Admission: Hypoxia Discharge Discharge Diagnosis / Problem: NSTEMI, Bacteremia Discharge Goals Goal(s): Decrease discomfort, Improve function Activity Recommendations Activity Limitations: resume your previous activity Exercise/Sports Limitations: as tolerated . Instructions / Follow-Up Instructions / Follow-Up Continue IV Vancomycin during dialysis to complete 6 weeks duration Started on July 18 to continue to till August 29. Continue IV Primaxin for 14 days Follow up with Dr. Monk at the wound care center in 1 week. Continue dialysis per recommendations from Nephrology Follow up with on July 26 at 12:50Am at [facility]. Follow up with your ceramic research engineer per recommendations from your PCP. Continue wound care at [facility] Seek immediate medical attention if your symptoms reoccur or worsen. Home Care: * Take your medications exactly as directed. Don't skip doses. * Remember that recovery after a heart attack takes time. Plan to rest for at lease 4-8 weeks while you recover. Then return to normal activity when your doctor says it's okay. * Ask your doctor about joining a heart rehabilitation program. * Tell your doctor if you are feeling depressed. Feelings of sadness are common after a heart attack, but it is important that you speak to someone if you are feeling overwhelmed by these feelings. * If you are having chest pain, call 911 for an ambulance. Do NOT drive yourself to the hospital. * Ask your family members to learn CPR. * Learn to take your own blood pressure and pulse. Keep a record of your results. Ask your doctor when you should seek emergency medical attention. He or she will tell you which blood pressure reading is dangerous. Lifestyle Changes: * Maintain a healthy weight. Get help to lose any extra pounds. * Cut back on salt. * Limit canned, dried, packaged, and fast foods. * Don't add salt to your food. * Season foods with herbs instead of salt when you cook. * Break the smoking habit. Enroll in a stop-smoking program to improve your chances of success. * Limit fatty foods. * Check your lipid levels regularly. (Your doctor can show you how to do this.) * Build up your activity according to your doctor's recommendation. * Ask your doctor when it's okay to resume sexual activity. * Tell your doctor about any erectile dysfunction (ED) medication you are taking. Some ED medications are not safe if you take certain heart medications. * Try to manage stress. Follow Up: It is important for you to keep your follow up appointments with your medical provider. Current Hospital Diet Patient's current hospital diet: Diabetes Type 2 Diet, Renal Diet Discharge Diet Recommended Diet: Diabetes Type 2 Diet Pending Studies Studies pending at discharge: no Laboratory Results Hemoglobin A1c Test 07/16/16 05:34 Range/Units Estimated Average Glucose 126 mg/dl Hemoglobin A1c 6.0 H 4.5-5.6 % Medical Emergencies . Who to Call and When: Medical Emergencies: If at any time you feel your situation is an emergency, please call 911 immediately. Call 911 immediately or go to your nearest Emergency Room if you experience any of the following: Warning Signs and Symptoms of a Heart Attack * Chest pain that is not relieved by medication * Shortness of breath . Non-Emergent Contact Non-Emergency issues call your: Primary Care Provider, Specialist (, Infectious disease) Call Non-Emergent contact if: you have a fever, your pain is not controlled, your pain is worsening, your pain is unusual for you, you have any medication questions . . "Provider Documentation" section prepared by Beto Smith. AMI Core Measures Reason no ASA as I/P: Treatment provided - N/A Reason no ASA at D/C: Treatment provided - N/A Reason no statin as I/P: Treatment provided - N/A Reason no statin at D/C: Treatment provided - N/A VTE Core Measure Inpt VTE Proph given/why not?: Unfractionated heparin SQ
[2016-07-22] MEDS ORDERED: VANCOMYCIN INJ 500 MG in SODIUM CHLORIDE 0.9% 250ML 250 ML IV SCH (16:00)
[2016-09-19] MEDS ORDERED: [UNRECOGNIZED DRUG - CODE] PO (15:02)
[2016-10-04] MEDS ORDERED: OXYC-164 PO (10:37)
[2016-10-04] MEDS ORDERED: LORA-741 PO (10:37)
[2016-10-04] MEDS ORDERED: IPRA1AER2 INH (10:37)
[2016-10-04] MEDS ORDERED: OXYC-787 PO (10:37)
[2016-10-04] MEDS ORDERED: SNTO30 EXT (10:37)
[2016-11-27] MEDS ORDERED: OXYC40TA34 PO (09:01)
== END 2016-07-22 17:53 | DRG 280 ==
LOC: ENRESERVDT → ENRESERVTM → EDBD 00:25 → C.EDB 00:29 → C.2T 06:43 → EDBEDREQ 07:13 → C.2T 08:41 → UNDOADMIN 08:41 → C.MED 07-20 16:32
PROVIDERS: ADMIT Hospitalist; ATTEND Internal Medicine
DX: I21.4 Non-ST elevation (NSTEMI) myocardial infarction (principal); N18.6 End stage renal disease; J18.9 Pneumonia, unspecified organism; J96.21 Acute and chronic respiratory failure with hypoxia; I50.22 Chronic systolic (congestive) heart failure; I13.0 Hypertensive heart and chronic kidney disease with heart failure and stage 1 through stage 4 chronic kidney disease, or unspecified chronic kidney disease; L03.119 Cellulitis of unspecified part of limb; M86.60 Other chronic osteomyelitis, unspecified site; E87.5 Hyperkalemia; I25.5 Ischemic cardiomyopathy; Z95.810 Presence of automatic (implantable) cardiac defibrillator; I73.9 Peripheral vascular disease, unspecified; I25.10 Atherosclerotic heart disease of native coronary artery without angina pectoris; E66.9 Obesity, unspecified; E11.22 Type 2 diabetes mellitus with diabetic chronic kidney disease; N40.0 Benign prostatic hyperplasia without lower urinary tract symptoms; E78.5 Hyperlipidemia, unspecified; Z89.421 Acquired absence of other right toe(s); Z99.2 Dependence on renal dialysis; Z89.612 Acquired absence of left leg above knee; I07.1 Rheumatic tricuspid insufficiency; D69.6 Thrombocytopenia, unspecified; Z87.891 Personal history of nicotine dependence; I44.7 Left bundle-branch block, unspecified; Z86.14 Personal history of Methicillin resistant Staphylococcus aureus infection; D63.1 Anemia in chronic kidney disease; Z99.81 Dependence on supplemental oxygen; Z99.3 Dependence on wheelchair; M46.45 Discitis, unspecified, thoracolumbar region; B95.62 Methicillin resistant Staphylococcus aureus infection as the cause of diseases classified elsewhere

== ENCOUNTER 2016-08-19 10:22 | Inpatient (IN) | payer OTHER ==
[2016-08-19] VITALS (8 sets, daily range): BP systolic 99–135; BP diastolic 63–85; PULSE 71–114; TEMP 36.6–38; O2SAT 95–100; BMI 32.0; BMI 32.2
[~2016-08-19] VITALS: Ht 152.4 cm; Wt 81.0 kg
[~2016-08-19 10:22] MED LIST changes: -ACET-1311 PO; +ACET325T96 PO; +ASCA500 PO; -BENZ100C84 PO; +CALC-191; -CEFT2INJ IV; -CHOL1000 PO; +CHOL1TAB46 PO; -GFNSR600 PO; +IPRA1AER2 INH; +LPT40 PO; +MRLP17X PO; +OXGN; +SNTONWC TOP; -SODI1ENE RE; -[UNRECOGNIZED DRUG - REMARK] PO; -dulcolax suppository
--- NOTE | 2016-08-19 10:29 | History and Physical ---
History & Physical Date of Service Aug 19, 2016. History & Physical Chief Complaint: Infected permcath History of Present Illness The patient is a 55 year old male with multiple medical problems, including hx of PAD with RLE fem-pop in situ bypass in 2013 and subsequent LOGISTICAL ENGINEER and stenting of bypass in early 2014 to maintain patency, HTN, IDDM, CHF, seen in consultation today for PAD. Underwent AKA. Now admitted with an infected permcath. Allergies Coded Allergies: Daptomycin (Verified Allergy, Unknown, WATER ON LUNGS, 06/03/14) POLLEN (Verified Allergy, Unknown, 06/03/14) Ciprofloxacin (Verified Adverse Reaction, Intermediate, NAUSEA AND DIARHHEA, 06/03/14) Surgical / Medical History Hx Cardiac Surgery: No Hx Abdominal Surgery: No Hx Cancer Surgery: No Hx Thoracic Surgery: No Hx Orthopedic: No Hx Urinary Tract Surgery: No HX Other Surgery: No Family History Coronary artery disease Hypertension Social History Smoking Status: Never Smoker Hx Tobacco Use In Past Year?: No Hx Alcohol Use - Type & Amnt: Yes (Rarely) Hx Substance Use -Type & Amnt: No Review of Systems Constitutional: + malaise Additional Comments: Unable to elicit d/t pt lethargic. Physical Exam: Constitutional: General Apperance: well-nourished, well-developed, obese Level of Distress: NAD (resting comfortably), acutely ill, chronically ill Psychiatric: Mental Status: lethargic, confused (with flat affect, lethargic) Orientation: to place, to person, not oriented to time Memory: recent memory abnormal, remote memory abnormal Head: normocephalic, atraumatic Eyes: EOM: EOMI ENMT: normal ENT inspection Neck: supple, trachea midline Lungs: Respiratory effort: no dyspnea Auscultation: no rhonchi, Cardiovascular: Apical Impulse: not displaced Heart Auscultation: no rubs, no gallops, tachycardia, II/ ELROY Peripheral Pulses: Pulses: full and equal, in all extremities except if noted Bruits: none appreciated Carotid Pulse: normal on the left, normal on the right Brachial Pulses: normal on the left, normal on the right Radial Pulse: normal on the left, normal on the right Femoral Pulse: decreased on the left, decreased on the right Posterior Tibialis Pulse: pertinent finding (nonpalpable) Dorsalis Pedis Pulse: pertinent finding (nonpalable) Abdomen: Bowel Sounds: normal Inspection & Palpation: soft, non-distended Musculoskeletal: pertinent finding (poor strength) Extremities: Upper Right: no cyanosis, no varicosities, edema Upper Left: no cyanosis, no varicosities, no palpable cord, edema Lower Right: no cyanosis, no varicosities, no palpable cord, edema, Lower Left: no cyanosis, no varicosities, no palpable cord, edema Neurologic: Sensation: grossly intact ASSESSMENT and PLAN: Infected permcath Plan: Patient is admitted for a permcath removal. I have discussed the risks options and benefits of the procedure with the patient. The patient understands the risks options and benefits and agrees to the procedure.
[2016-08-19] MEDS ORDERED: D5W AND 1/4NSS 1,000 ML IV SCH (11:05)
[2016-08-19] MEDS ORDERED: BISA-16 PR (11:47)
--- NOTE | 2016-08-19 11:57 | Procedure Note ---
Pre-Mod Sedation Assessment General Date of Moderate Sedation: Aug 19, 2016. Vital Signs: Vital Signs Past 12 Hours Date Time Temp Pulse Resp B/P Pulse Ox O2 Delivery O2 Flow Rate FiO2 08/19/16 11:23 37.6 82 20 135/81 98 Room Air Pre-Sedation Airway Assessment Oral Cavity: Dental Abnormalities Smoking Status: Former Smoker Mallampati Classification: Class I ASA Classification: Class II Notes The planned sedation has been discussed with the patient and consent obtained. I have identified the patient, determined the appropriateness of sedation and have assessed the patient immediately prior to the procedure. All medicine(s) and interventions are by my order.
[2016-08-19] MEDS ORDERED: MIDAZOLAM HCL 1 MG/ML 2ML VIAL ONE (12:45)
[2016-08-19] MEDS ORDERED: FENTANYL CITRATE INJ 50 MCG/1 ML 2 ML VIAL ONE (12:45)
[2016-08-19] MEDS ORDERED: LIDOCAINE HCL 1% 20 ML VIAL ONE (12:45)
--- NOTE | 2016-08-19 12:59 | [facility] Post Operative Brief Note ---
Immediate Operative Summary Operative Date Aug 19, 2016. Pre-Operative Diagnosis Infected Perm Catheter Post-Operative Diagnosis Same Procedure(s) Performed Removal of Infected Catheter Surgeon Dr. Bermudez Putty Remover Surgeon(s) None Estimated Blood Loss 0 Findings catheter and cuff removed, tip sent for culture Specimens a: Explanted Perm Catheter Anesthesia Local Complication(s) None Disposition
[2016-08-19] MEDS ORDERED: LIDOCAINE HCL 1% 20 ML VIAL SQ ONE (13:06)
[2016-08-19] MEDS ORDERED: FENTANYL CITRATE INJ 50 MCG/1 ML 2 ML VIAL IV ONE (13:06)
--- NOTE | 2016-08-19 13:08 | DIAGNOSTIC IMAGING REPORT ---
DATE OF PROCEDURE: 08/19/2016 PREOPERATIVE DIAGNOSIS: Infected right internal jugular vein PermCath. POSTOPERATIVE DIAGNOSIS: Same. PROCEDURE: Removal of PermCath. SURGEON: Dr. Bermudez. ANESTHETIC: Local. PROCEDURE INDICATIONS: The patient is a 56-year-old male who appears to be septic with fever, chills. Removal of PermCath was recommended. He understood the risks, options and benefits and agreed to have this procedure. The patient was taken to the angio suite and placed in supine position. After right-sided chest wall and catheter were prepped and draped in a sterile manner, local anesthetic was administered. Using sharp dissection with the scalpel and blunt dissection with hemostat, the catheter cuff was freed up from the surrounding tissue. The fibrin sheath was incised. The catheter then slid out easily. Pressure was applied. Adequate hemostasis was obtained. Sterile dressings were applied to the wound and the patient left the angio suite in good condition and tolerated the procedure well.
[2016-08-19] MEDS ORDERED: ONDANSETRON INJ 2 MG/ML 2 ML VIAL IV PRN (14:00)
[2016-08-19] MEDS ORDERED: ACETAMINOPHEN 325 MG TAB PO PRN (14:00)
--- NOTE | 2016-08-19 14:10 | Progress Note ---
Progress Note Date of Service Aug 19, 2016. Progress Note ATTENDING ADDENDUM care coordinated with NAMRATA Rivas please refer to her notes for full details, I agree with her notes patient seen and examined, records reviewed by myself as well on exam, patient seen resting in bed, awake, alert denies fever/chills, cough, abdominal pain, nausea, changes with urination or bowel movement s/p permcath removal today (+) fever of 38 reported post op no other symptoms VS noted and reviewed oriented x 3, not in distress, speaks in sentences with no effort nor accessory muscle use neck: permcath site with dressing in place, no active bleeding, no swelling/ tenderness/warmth normal rate, regular rhythm, no murmurs clear breath sounds bilaterally non distended, soft, nontender right leg with dressing over the knee, no erythema/warmth/tenderness no gross focal neuro deficits no labs at this time ASSESSMENT/PLAN> 56 year old male with recent admission 06/2016 for MRSA Bacteremia on Vancomycin IV, History of Pseudomonas infection of the Right Knee s/p Imipenem IV course, ESRD , Ischemic Cardiomyopathy, presenting with fever s/p Perm Cath removal. FEVER, S/P PERMCATH REMOVAL MRSA BACTEREMIA, CURRENTLY ON VANCOMYCIN HISTORY OF RIGHT KNEE ULCER INFECTION- PSEUDOMONAS, PROTEUS - check labs to r/o sepsis - cxr, blood cultures, permcath tip culture, urine culture - restart Imipenem continue Vancomycin ID consulted ESRD HD per Dr. Flores ISCHEMIC CARDIOMYOPATHY currently euvolemic other diagnoses and plan of care as per NAMRATA Rivas's notes Han Sellers MD
[2016-08-19] MEDS ORDERED: GLUCOSE 10 TABS/TUBE PO PRN (14:15)
[2016-08-19] MEDS ORDERED: DEXTROSE 50% 50 ML SYR IV PRN (14:15)
[2016-08-19] MEDS ORDERED: GLUCOSE 40% GEL 15 GM TUBE PO PRN (14:15)
[2016-08-19] MEDS ORDERED: GLUCAGON FOR INJ 1 MG VIAL SQ PRN (14:15)
[2016-08-19 14:30] LABS: BASO % 0.4 %; BASO ABS # 0.04 K/uL (0-0.2); EOS % 1.4 %; HEMATOCRIT 38.2 % (42-52); LYMPH % 10.6 %; LYMPH ABS # 1.08 K/uL (1.2-3.4); MEAN CELL VOLUME 91.8 fL (80-100); MEAN CORPUSCULAR HEMOGLOBIN 29.8 pg (25-34); MEAN PLATELET VOLUME 9.3 fL (7.4-10.4); MONO % 11.4 %; NEUT % 75.2 %; PLATELET COUNT 166 K/uL (130-400); RED BLOOD COUNT 4.16 M/uL (4.7-6.1); WHITE BLOOD COUNT 10.22 K/uL (4.8-10.8)
[2016-08-19] MEDS ORDERED: IMIPENEM/CILASTATIN CONSULT ACTIVE PRN (14:30)
[2016-08-19] MEDS ORDERED: VANCOMYCIN CONSULT ACTIVE PRN (14:30)
[2016-08-19 14:32] LABS: COMPLETE YES; MEAN CORPUSCULAR HGB CONC 32.5 g/dl (32-36)
[2016-08-19] MEDS ORDERED: LPT40 PO (14:54)
[2016-08-19] MEDS ORDERED: liquid protein PO (14:54)
[2016-08-19 14:59] LABS: BUN/CREATININE RATIO 13.9 (10-20); CALCIUM 9.1 mg/dl (8.5-10.1); CREATININE 3.5 mg/dl (0.60-1.40); MAGNESIUM 2.4 mg/dl (1.8-2.4); POTASSIUM 4.8 mmol/L (3.5-5.1)
[2016-08-19] MEDS ORDERED: OXYCODONE HCL IR 5 MG TAB (IMMEDIATE RELEASE) PO PRN (15:00)
--- NOTE | 2016-08-19 15:29 | History and Physical ---
History & Physical Date & Time of Service: Aug 19, 2016 at 14:09 Chief Complaint: End Stage Renal Disease Primary Care Physician: Fausto Kohli D.O. History of Present Illness Source: patient, hospital records This is a 56 year old male with PMH of ischemic cardiomyopathy s/p ICD, ESRD on HD, DM type 2, and other problems listed below who is being directly admitted s/ p removal of possibly infected permcath today by Dr. Bermudez. Patient was recently hospitalized from Jul 15- July 22 at [facility] for NSTEMI, MRSA bacteremia , RLE wound infection- Pseudomonas, Proteus. He was seen by ID and discharged to [facility] on Vancomycin and Imipenem/Cilastatin. Pt has f/u with ID Dr. Monk - vancomycin continued and Imipenem/Cilastatin stopped. Repeat blood culture 07/18/16 negative. Had subsequent positive blood culture drawn 08/12 which grew MRSA as per [facility] staff. Pt following with wound care and underwent graft of RLE wound 4 days ago. Patient states he had been feeling at baseline. Had dialysis and Vancomycin dose this morning. After surgery today is feeling tired and "not thinking straight". Has intermittent confusion at baseline. He denies fever, chills, cough, SOB, chest pain, palpitations, ICD firing, abdominal pain, N/V/D , abnormal bleeding, increasing edema. Has indwelling Blair catheter. He is wheelchair bound s/p left AKA. Past Medical/Surgical History Medical Problems: (1) Anemia Status: Chronic (2) Cardiomyopathy Status: Chronic (3) CHF (congestive heart failure) Permanent Comment: EF 20% Status: Chronic (4) CKD (chronic kidney disease), stage III Status: Chronic (5) Coronary artery disease Status: Chronic (6) DM type 2 (diabetes mellitus, type 2) Status: Chronic (7) HTN (hypertension) Status: Chronic (8) Hyperlipidemia Status: Chronic (9) Obesity Status: Chronic (10) Osteomyelitis Permanent Comment: history of vertebral osteomyelitis and diskitis November 2015 Status: Resolved (11) PAD (peripheral artery disease) Status: Chronic (12) PVD (peripheral vascular disease) Status: Chronic Surgical Problems: (1) ICD (implantable cardioverter-defibrillator), single, in situ Permanent Comment: 10/31 Status: Chronic (2) S/P AKA (above knee amputation) Permanent Comment: LLE Status: Chronic (3) S/P femoral-popliteal bypass surgery Permanent Comment: Right 1/-12, with angioplast 08/30, with stent 06/02 Status: Chronic (4) Toe amputation status Permanent Comment: Right 4 toe Status: Chronic Family History Coronary artery disease MOTHER FH: atrial fibrillation FATHER FH: cancer FATHER Hypertension SISTER Valvular heart disease FATHER Social History Smoking Status: Former Smoker Alcohol Use: none Marital Status: single Housing status: assisted living Occupational Status: disabled Immunizations History of Influenza Vaccine: Yes Influenza Vaccine Date: Jun 17, 2014 History of Tetanus Vaccine?: Yes Tetanus Immunization Date: Jun 18, 2013 History of Pneumococcal: Yes Pneumococcal Date: Nov 18, 2001 History of Hepatitis B Vaccine: Yes Hepatitis Immunization Date: Dec 15, 2013 Multi-Drug Resistant Organisms History of MDRO: Yes Type of MDRO: MRSA Allergies Coded Allergies: Daptomycin (Verified Allergy, Severe, WATER ON LUNGS, 08/19/16) pt stated this allergy is "lethal" for him POLLEN (Verified Allergy, Unknown, 08/19/16) Ciprofloxacin (Verified Adverse Reaction, Intermediate, NAUSEA AND DIARHHEA, 08/19/16) Home Medications Scheduled Ascorbic Acid (Vitamin C), 500 MG PO DAILY Aspirin (Aspirin Ec), 81 MG PO DAILY Atorvastatin (Atorvastatin Calcium), 40 MG PO HS Calcium Acetate (Phosphate Bin (Phoslo 667 Mg), 2 CAPSULES PO WM Calcium Alginate (Bulk) (Calcium Alginate), 1 APPLN DAILY AND PRN Cholecalciferol (Vitamin D3), 5,000 UNIT PO DAILY Dexamethasone (Dexamethasone), 2 MG PO DAILY Ferrous Sulfate (Kp Ferrous Sulfate), 1 TAB PO DAILY Fluticasone Prop/Salmeterol (Advair Diskus 250/50 60 Dose), 1 PUFFS INH BID Gabapentin (Neurontin), 200 MG PO Q8 Insulin Aspart (Novolog), SC ACHS Insulin Glargine (Lantus), 5 UNITS SC AMPM Ipratropium-Albuterol (Combivent Respimat), 1 PUFFS INH QID Lactobacillus Acidophilus (Lactinex), 1 TAB PO TID Loratadine (Claritin), 10 MG PO DAILY Lorazepam (Ativan), 0.5 MG PO TID Metoprolol Succ (Toprol Xl) (Toprol-Xl), 25 MG PO BID Omeprazole (Prilosec), 20 MG PO 4XWK Oxycodone Hcl (Oxycontin), 30 MG PO Q8 Polyethylene Glycol 3350 (Miralax), 17 GM PO DAILY Senna/Docusate Sod (Senokot S), 1 TAB PO HS Vancomycin Hcl In Dextrose (Vancomycin Hcl In Dextros), 1 GM IV 3XWK [liquid protein], 30 ML PO DAILY Scheduled PRN Acetaminophen Tab (Tylenol), 650 MG PO Q6 PRN for PAIN RATED 1-5 Oxycodone Ir (Roxicodone Ir), 10 MG PO UD PRN for prior to dialysis Oxygen (Oxygen), 3 LITERS NA PRN PRN for Shortness of Breath Review of Systems Ten point ROS performed with pertinent positives and negatives noted in HPI. Physical Exam Vital Signs Date Time Temp Pulse Resp B/P Pulse Ox O2 Delivery O2 Flow Rate FiO2 08/19/16 13:40 114 18 105/82 95 Room Air 08/19/16 13:10 38 88 18 109/84 96 Room Air 08/19/16 12:19 37.6 82 20 135/81 98 Room Air 08/19/16 11:23 37.6 82 20 135/81 98 Room Air General Appearance: WD/WN, no apparent distress, + pertinent finding (alert 56 year old male, no distress) Head: normocephalic, atraumatic Eyes: normal inspection, PERRL, EOMI, sclerae normal ENT: hearing grossly normal, pharynx normal Neck: supple, trachea midline Respiratory/Chest: lungs clear, normal breath sounds, no respiratory distress, no accessory muscle use Cardiovascular: regular rate, rhythm, no murmur Abdomen/GI: normal bowel sounds, non tender, soft Genitourinary - Male: + pertinent finding (blair catheter draining brown urine with foul odor) Extremities/Musculoskelatal: no calf tenderness (on RLE), + pertinent finding ( 1+ pretibial edema right lower leg. LLE s/p AKA) Neurologic/Psych: alert, normal mood/affect, + pertinent finding (oriented to person and place, unable to state the date, mild short term memory difficulty) Skin: normal color, warm/dry, + pertinent finding (RLE dressing in place in knee area) Diagnostics Laboratory Results Results Past 24 Hours Test 08/19/16 11:34 08/19/16 13:48 Range/Units Bedside Glucose 111 70-99 mg/dl Microbiology Results 08/19/16 Blood Culture, Naa Batch Pending 08/19/16 Blood Culture, Naa Batch Pending 08/19/16 Urine Culture, Naa Batch Pending 08/19/16 Gram Stain, Ordered Pending 08/19/16 Wound Culture, Ordered Pending 08/19/16 Catheter Tip Culture, Received Pending Impression Assessment and Plan FEVER MRSA BACTEREMIA HX RIGHT KNEE WOUND INFECTION (pseudomonas, proteus) Blood culture 08/12/18 drawn at [facility] grew MRSA Rule out sepsis- febrile to 38.0, HR and BP stable, no leukocytosis, lactic acid WNL Possible infected permcath s/p removal 08/19/[address] Bermudez; permcath tip culture pending Check chest x-ray, blood cultures now and tomorrow am, urine culture, wound culture Continue vancomycin Resume imipenem Consult ID ESRD Nephrology consulted; discussed w/ Dr. Flores; appreciate input Last HD this am 08/19/16 S/p permcath removal 08/19/16 Patient has no dialysis access currently Will be on renal diet with fluid restriction 1500 mL Plan for possible new tunnelled line placement mid-week Dr. Bermudez consulted CHRONIC SYSTOLIC CHF/ ISCHEMIC CARDIOMYOPATHY EF 15-20% Currently euvolemic PRESUMED CAD Stable Hold aspirin until OK by vascular surgery Continue beta david, statin DM TYPE 2 Continue Lantus Insulin sliding scale coverage CHRONIC RESPIRATORY FAILURE Continue home oxygen 3L PRN RIGHT KNEE AND BUTTOCK ULCERATIONS S/p skin graft of right knee wound on 08/15/16 Consult wound care nurse DVT PROPHYLAXIS SCD's for now FULL CODE Per preference on recent admission DISPOSITION Resides at [facility] Patient seen in collaboration with VTE Prophylaxis VTE Risk Assessment Done? Y/N: Yes Risk Level: Moderate
[2016-08-19] MEDS: INSULIN ASPART 100 UNITS/ML 3 ML PEN SC SCH ×2 (16:15→21:27)
[2016-08-19] MEDS: CALCIUM ACETATE 667MG GELCAP PO SCH (16:43)
[2016-08-19] MEDS: IPRATROPIUM BROMIDE/ALBUTEROL respimat INH INH SCH ×2 (16:43→21:19)
--- NOTE | 2016-08-19 16:43 | DIAGNOSTIC IMAGING REPORT ---
CHEST ONE VIEW PORTABLE CLINICAL HISTORY: Postoperative evaluation. COMPARISON STUDY: Chest CT July 15, 2016 and chest radiograph July 17, 2016. FINDINGS: A left subclavian pacemaker/AICD is in place. Moderate cardiomegaly is unchanged. There is no pneumothorax. There is a possible small right pleural effusion. There is no evidence of pulmonary edema. Mild right lower lung opacity favors atelectasis. IMPRESSION: 1. Mild right lower lung opacity which favors atelectasis. 2. Possible small right pleural effusion. 3. Cardiomegaly without evidence of pulmonary edema. Electronically signed by: Garry Lyman M.D. 08/19/2016 4:42 PM Dictated Date/Time: 08/19/2016 4:39 PM
--- NOTE | 2016-08-19 16:44 | Medical Consult ---
Consultation Date of Consultation: Aug 19, 2016. Attending Physician: Gi Wilkes M.D. Reason for Consultation: Infected perm cath History of Present Illness Patient is a 56 yo male with history of ESRD on HD, DM2, severe PAD, left AKA, and multiple previous accounts of bacteremia due to infected catheters, wounds, and osteomyelitis. Patient was most recently hospitalized with MRSA bacteremia at the beginning of June and RLE wound infection with Pseudomonas and Proteus. He was discharged home on IV Vancomycin and Imipenem and has been following up with Dr. Monk and Dr. Macario at the wound care center. The patient's IV Primaxin was D/C'd but he was continued on IV Vancomycin and has been up until admission. The patient received dialysis at [facility] prior to admission. Patient had repeat blood cultures completed on 08/12 which grew MRSA according to admission H & P. The patient states that he had otherwise been feeling well. He denies fever, sweats, chills, SOB, chest pain, N/V/D. WBC count on admission was 10.22. Creatinine noted to be 3.5. He is S/P removal of right chest wall catheter. Culture of catheter tip, urine, ulceration of the right leg, and blood are pending. He was empirically placed on IV Vancomycin and Primaxin. Past Medical/Surgical History Medical Problems: (1) Altered mental status Status: Acute (2) Diabetes mellitus out of control Status: Acute (3) Elevated troponin Status: Acute (4) Elevated troponin Status: Acute (5) Elevated troponin Status: Acute (6) End stage renal failure on dialysis Status: Acute (7) Hyperkalemia Status: Acute (8) Hypocalcemia Status: Acute (9) Hypoglycemia Status: Acute (10) Hypokalemia Status: Acute (11) Hyponatremia Status: Acute (12) Hypotension Status: Acute (13) Hypothermia Status: Acute (14) Mass of spine Status: Acute (15) Opiate overdose Status: Acute (16) Renal failure Status: Acute (17) Renal insufficiency Status: Acute (18) Sepsis Status: Acute (19) Ulcer of toe Status: Acute (20) Ulcers of both lower extremities Status: Acute (21) UTI (urinary tract infection) Status: Acute Medical Problems: (1) Acute on chronic renal failure (2) Anemia (3) Cardiomyopathy (4) CHF (congestive heart failure) (5) CKD (chronic kidney disease), stage III (6) Coronary artery disease (7) DM type 2 (diabetes mellitus, type 2) (8) Fever (9) HTN (hypertension) (10) Hyperlipidemia (11) Hypoxia (12) Infected permcath (13) Obesity (14) Osteomyelitis (15) PAD (peripheral artery disease) (16) PVD (peripheral vascular disease) (17) Unresponsiveness Surgical Problems: (1) ICD (implantable cardioverter-defibrillator), single, in situ (2) S/P AKA (above knee amputation) (3) S/P femoral-popliteal bypass surgery (4) Toe amputation status Family History Coronary artery disease MOTHER FH: atrial fibrillation FATHER FH: cancer FATHER Hypertension SISTER Valvular heart disease FATHER Noncontributory Social History Smoking Status: Former Smoker Alcohol Use: none Marital Status: single Housing Status: snf Occupation Status: disabled Allergies Coded Allergies: Daptomycin (Verified Allergy, Severe, WATER ON LUNGS, 08/19/16) pt stated this allergy is "lethal" for him POLLEN (Verified Allergy, Unknown, 08/19/16) Ciprofloxacin (Verified Adverse Reaction, Intermediate, NAUSEA AND DIARHHEA, 08/19/16) Home Medications Reported Home Medications Medications Dose Route/Sig Max Daily Dose Days Date Category Dose Instructions [liquid protein] 30 Ml PO DAILY 08/19/16 Reported Atorvastatin Calcium (Atorvastatin) 40 Mg Tab 40 Mg PO HS 30 08/19/16 Rx Combivent Respimat (Ipratropium-Albuterol) 1 Aer Aer 1 Puffs INH QID 30 07/22/16 Rx Calcium Alginate (Calcium Alginate (Bulk)) 1 Pow Pow 1 Appln DAILY AND PRN 07/15/16 Reported CLEANSE LEFT BUTTOCK SITE WITH NSS,APPLY CALCIUM ALGINATE TO WOUND BASE AND COVER WITH SILICONE BORDER. Oxygen Gas 3 Liters NA PRN PRN 07/15/16 Reported Tylenol (Acetaminophen) 325 Mg Tab 650 Mg PO Q6 PRN 07/15/16 Reported DO NOT EXCEED 3MG/24HR Vitamin C (Ascorbic Acid) 500 Mg Tab 500 Mg PO DAILY 07/15/16 Reported TAKE DAILY ON FRI/FRI/FRIDAY Vitamin D3 (Cholecalciferol) 5,000 Unit Tab 5,000 Unit PO DAILY 07/15/16 Reported Dexamethasone 2 Mg Tab 2 Mg PO DAILY 07/15/16 Reported Vancomycin Hcl In Dextros (Vancomycin Hcl In Dextrose) 1 Inj Inj 1 Gm IV 3XWK 06/04/16 Reported SEND TO DIALYSIS WITH PT ON FRI,FRI,FRI..WILL RECIEVE THERE Senokot S (Senna/Docusate Sodium) 1 Tab Tab 1 Tab PO HS 06/04/16 Reported Lantus (Insulin Glargine) 100 Unit/Ml Inj 5 Units SC AMPM 06/04/16 Reported Lactinex (Lactobacillus Acidophilus) Tab 1 Tab PO TID 06/04/16 Reported Kp Ferrous Sulfate (Ferrous Sulfate) 325 Mg Tab 1 Tab PO DAILY 06/04/16 Reported Ativan (Lorazepam) 0.5 Mg Tab 0.5 Mg PO TID 06/04/16 Reported Advair Diskus 250/50 60 Dose (Fluticasone Prop/Salmeterol) 1 Ea Aerp 1 Puffs INH BID 06/04/16 Reported Roxicodone Ir (Oxycodone HCl) 5 Mg Tab 10 Mg PO UD PRN 06/04/16 Reported before dialysis Oxycontin (Oxycodone Hcl) 15 Mg Tab 30 Mg PO Q8 06/04/16 Reported DO NOT USE TOGETHER WITH ATIVAN TAKE 1 HOUR AWAY FROM OXY IR Neurontin (Gabapentin) 100 Mg Cap 200 Mg PO Q8 06/04/16 Reported Phoslo 667 Mg (Calcium Acetate (Phosphate Bin) 667 Mg Cap 2 Capsules PO WM 11/12/15 Reported Toprol-Xl (Metoprolol Succinate) 25 Mg Tabcr 25 Mg PO BID 11/12/15 Reported HOLD FOR AP HR <50 Claritin (Loratadine) 10 Mg Tab 10 Mg PO DAILY 11/12/15 Reported GIVE AT 0400 ON FRI,FRI,FRI GIVE AT 0800 ON ,,FRI,FRI Prilosec (Omeprazole) 20 Mg Capcr 20 Mg PO 4XWK 09/28/15 Reported ,,FRI,SUNDAYS Novolog (Insulin Aspart) Inj SC ACHS 09/28/15 Reported Sliding scale: 0-150 = 0 units, 151-200 = 6 units, 201- 250 = 8 units, 251-300 = 10 units, 301- 350 = 12 units, 351- 400 = 14 units, 401- 450 = 16 units, 451+ call physician, subcutaneously before meals and at bedtime related to TYPE 2 Diabetes Mellitus Miralax (Polyethylene Glycol 3350) 1 Pow 17 Gm PO DAILY 09/05/15 Reported GIVE AT 0400 ON FRI,FRI,FRI GIVE AT 0800 ON SUN,,,SAT Aspirin Ec (Aspirin) 81 Mg Tab 81 Mg PO DAILY 06/03/14 Reported TAKE ON MON,FRI,FRI @ 0400 TAKE ON ,,SAT,SUN @ 0800 Current Inpatient Medications Current Inpatient Medications Medications (Trade) Dose Ordered Sig/Edin Route Start Time Stop Time Status Last Admin Dose Admin Acetaminophen (Tylenol Tab) 650 mg Q4H PRN PO 08/19/16 14:00 09/18/16 13:59 Ondansetron HCl (Zofran Inj) 4 mg Q6H PRN IV 08/19/16 14:00 09/18/16 13:59 Vancomycin HCl (Consult) 1 ea UD PRN N/A 08/19/16 14:30 09/18/16 14:29 Imipenem/ Cilastatin Sodium (Consult) 1 ea UD PRN N/A 08/19/16 14:30 09/18/16 14:29 Insulin Aspart (novoLOG ASPART) SLIDING SCALE If C... ACHS SC 08/19/16 16:15 09/18/16 16:14 Glucose (Glucose 40% Gel) 15-30 GRAMS 15 GRAMS... UD PRN PO 08/19/16 14:15 09/18/16 14:14 Glucose (Glucose Chew Tab) 4-8 Tablets 4 Tabl... UD PRN PO 08/19/16 14:15 09/18/16 14:14 Dextrose (Dextrose 50% 50ML Syringe) 25-50ML OF 50% DW IV FOR... UD PRN IV 08/19/16 14:15 09/18/16 14:14 Glucagon (Glucagon Inj) 1 mg UD PRN SQ 08/19/16 14:15 09/18/16 14:14 Ascorbic Acid (Vitamin C Tab) 500 mg DAILY PO 08/20/16 09:00 09/19/16 08:59 Atorvastatin Calcium (Lipitor Tab) 40 mg HS PO 08/19/16 21:00 09/18/16 20:59 Calcium Acetate (Phoslo Cap) 1,334 mg TIDM PO 08/19/16 16:45 09/18/16 17:59 Salmeterol Xinafoate/ Fluticasone (Advair Diskus 250/50 Inh) 1 puff BID INH 08/19/16 21:00 09/18/16 20:59 Gabapentin (Neurontin Cap) 200 mg Q8 PO 08/19/16 22:00 09/18/16 21:59 Insulin Glargine (Lantus Solostar Pen) 5 unit BID SC 08/19/16 21:00 09/18/16 20:59 Albuterol/ Ipratropium (Combivent Respimat Inh) 1 puffs QID INH 08/19/16 17:00 09/18/16 16:59 Lactobacillus Acidophilus (Floranex Tab) 1 tab TID PO 08/19/16 21:00 09/18/16 20:59 Loratadine (Claritin Tab) 10 mg DAILY PO 08/20/16 09:00 09/19/16 08:59 Lorazepam (Ativan Tab) 0.5 mg TID PO 08/19/16 21:00 09/18/16 20:59 Metoprolol Succinate (Toprol Xl Tab) 25 mg BID PO 08/19/16 21:00 09/18/16 20:59 Oxycodone HCl (Oxycontin Tab) 30 mg Q8 PO 08/19/16 22:00 09/02/16 21:59 Oxycodone HCl (Roxicodone Immediate Rel Tab) 10 mg DAILY PRN PO 08/19/16 15:00 09/02/16 14:59 Senna/Docusate Sodium (Senokot S Tab) 1 tab HS PO 08/19/16 21:00 09/18/16 20:59 Cholecalciferol (Vitamin D Tab) 5,000 inter.unit DAILY PO 08/20/16 09:00 09/19/16 08:59 Dexamethasone (Decadron Tab) 2 mg DAILY PO 08/20/16 09:00 09/19/16 08:59 Ferrous Sulfate (Feosol Tab) 325 mg DAILY PO 08/20/16 09:00 09/19/16 08:59 Polyethylene (Miralax Powder Packet) 17 gm QAM PO 08/20/16 09:00 09/19/16 08:59 Miscellaneous Information (Order Awaiting Action) 1 ea QS N/A 08/19/16 16:00 09/18/16 15:59 Pantoprazole Sodium (Protonix Tab) 40 mg QAM PO 08/20/16 09:00 09/19/16 08:59 Review of Systems Constitutional: No chills, No fever, No sweats Eyes: No worsening of vision ENT: No hearing loss Respiratory: No cough, No shortness of breath Cardiovascular: No chest pain Abdomen: No diarrhea, No nausea, No pain, No vomiting Musculoskeletal: + problem reported (left AKA), No joint pain Genitourinary - Male: + problem reported ([place]) Integumentary: + problem reported (Recent skin graft of right knee. ), No itch , No rash Physical Exam Date Time Temp Pulse Resp B/P Pulse Ox O2 Delivery O2 Flow Rate FiO2 08/19/16 15:54 37.1 80 18 109/75 96 Room Air 08/19/16 15:25 36.6 86 19 128/85 98 Room Air 08/19/16 13:40 114 18 105/82 95 Room Air 08/19/16 13:10 38 88 18 109/84 96 Room Air 08/19/16 12:19 37.6 82 20 135/81 98 Room Air 08/19/16 11:23 37.6 82 20 135/81 98 Room Air General Appearance: WD/WN, no apparent distress Head: normocephalic, atraumatic Eyes: normal inspection, sclerae normal ENT: hearing grossly normal Neck: supple, trachea midline Respiratory/Chest: chest non-tender, normal breath sounds, no respiratory distress, no accessory muscle use, + pertinent finding (Note bandage on right chest wall) Cardiovascular: + tachycardia Abdomen/GI: normal bowel sounds, non tender, + distended (slightly) Extremities/Musculoskelatal: + pertinent finding (left AKA, right knee with large dressing in place- C/D/I) Neurologic/Psych: alert, normal reflexes Skin: normal color, warm/dry, no rash Laboratory Results Item Value Date Time Blood Culture Received 08/19/16 1414 Blood Pending Blood Culture Received 08/19/16 1420 Blood Pending Gram Stain Ordered 08/19/16 1355 Ulcer Leg Right Lower Pending Urine Culture Naa Batch 08/19/16 1348 Urine,Catheterized Pending Catheter Tip Culture Received 08/19/16 1300 Catheter Tip Perm. Catheter Pending Last 24 Hours Test 08/19/16 11:34 08/19/16 13:48 08/19/16 14:20 08/19/16 14:25 Bedside Glucose 111 mg/dl White Blood Count 10.22 K/uL Red Blood Count 4.16 M/uL Hemoglobin 12.4 g/dL Hematocrit 38.2 % Mean Corpuscular Volume 91.8 fL Mean Corpuscular Hemoglobin 29.8 pg Mean Corpuscular Hemoglobin Concent 32.5 g/dl Platelet Count 166 K/uL Mean Platelet Volume 9.3 fL Neutrophils (%) (Auto) 75.2 % Lymphocytes (%) (Auto) 10.6 % Monocytes (%) (Auto) 11.4 % Eosinophils (%) (Auto) 1.4 % Basophils (%) (Auto) 0.4 % Neutrophils # (Auto) 7.70 K/uL Lymphocytes # (Auto) 1.08 K/uL Monocytes # (Auto) 1.16 K/uL Eosinophils # (Auto) 0.14 K/uL Basophils # (Auto) 0.04 K/uL RDW Standard Deviation 53.0 fL RDW Coefficient of Variation 15.7 % Immature Granulocyte % (Auto) 1.0 % Immature Granulocyte # (Auto) 0.10 K/uL Sodium Level 133 mmol/L Potassium Level 4.8 mmol/L Chloride Level 97 mmol/L Carbon Dioxide Level 25 mmol/L Anion Gap 11.0 mmol/L Blood Urea Nitrogen 48 mg/dl Creatinine 3.50 mg/dl Est Creatinine Clear Calc Drug Dose 19.7 ml/min Estimated GFR () 21.2 Estimated GFR (Non- 18.3 BUN/Creatinine Ratio 13.9 Random Glucose 152 mg/dl Lactic Acid Level 1.9 mmol/L Calcium Level 9.1 mg/dl Magnesium Level 2.4 mg/dl Assessment & Plan Patient with ESRD on HD with likely infected perm cath. Blood, urine, and catheter cultures pending. Patient with history of recurrent MRSA bacteremia. He is currently on IV Vancomycin and Primaxin. Will change IV Vancomycin to IV Ceftaroline due to concern of continued bacteremia despite IV Vancomycin therapy. Likely due to chronic infection of Perm cath. Continue Primaxin pending cultures. We will continue to follow. PROVIDER ADDENDUM: Patient examined and reviewed with Ms. Tapia. Agree with above assessment.
--- NOTE | 2016-08-19 16:53 | Pharmacy Progress Note ---
Pharmacy Antibiotic Consult Date of Service: Aug 19, 2016. Pharmacy Dosing Scope Pharmacy is consulted to initiate vancomycin and Primaxin IV dosing therapy, order appropriate labs and adjust drug dose/frequency. Subjective The patient is a 56 year old male admitted on Aug 19, 2016 at 13:48. Recent RLE wound infection and MRSA bacteremia. S/P perm catheter removal today. Objective Height (Feet): 5 Height (Inches): 0.00 Weight (Kilograms): 74.700 Lab Results (24hrs): Laboratory Tests Test 08/19/16 14:20 BUN/Creatinine Ratio 13.9 Blood Urea Nitrogen 48 mg/dl Creatinine 3.50 mg/dl White Blood Count 10.22 K/uL Red Blood Count 4.16 M/uL Hemoglobin 12.4 g/dL Hematocrit 38.2 % Mean Corpuscular Volume 91.8 fL Mean Corpuscular Hemoglobin 29.8 pg Mean Corpuscular Hemoglobin Concent 32.5 g/dl Platelet Count 166 K/uL Mean Platelet Volume 9.3 fL Neutrophils (%) (Auto) 75.2 % Lymphocytes (%) (Auto) 10.6 % Monocytes (%) (Auto) 11.4 % Eosinophils (%) (Auto) 1.4 % Basophils (%) (Auto) 0.4 % Neutrophils # (Auto) 7.70 K/uL Lymphocytes # (Auto) 1.08 K/uL Monocytes # (Auto) 1.16 K/uL Eosinophils # (Auto) 0.14 K/uL Basophils # (Auto) 0.04 K/uL Micro Results: 08/19 cath tip pending / urine pending /3 ulcer RLE pending 08/18 blood x2 pending Recent Pertinent Medications Patient has been receiving vancomycin 1 Gm IV M-- with dialysis, since 07/18/16 , most recent dose 08/16. Planned to continue until 09/02. Will be restarting Primaxin for possible wound infection (had a course in May-Jun 2016.) Assessment & Plan Patient on vancomycin day 30 of 42 for MRSA bacteremia. Normally would get dialysis and dose today but had perm-cath removed. Random vanco level ordered- will redose if level less than 20. When dialysis schedule is restarted, we may be able to resume Vancomycin 1 Gm 3 times a week. Goal trough level estimate: between 15-20 mcg/mL. Random level has been ordered for: 08/19/16 @1700 Primaxin 250 mg q12h, one dose to be given after dialysis on dialysis days. Pharmacy will continue to follow and will adjust dose/frequency as necessary. Thank you
[2016-08-19] MEDS ORDERED: [UNRECOGNIZED DRUG - OTHER] PRN (17:15)
[2016-08-19 17:38] LABS: URINE APPEARANCE TURBID (CLEAR); URINE BILIRUBIN NEG (NEG); URINE COLOR ORANGE; URINE EPITHELIAL CELL AUTO >30 /lpf (0-5); URINE NITRITE NEG (NEG); URINE PH >= 9.0 (4.5-7.5); URINE SPECIFIC GRAVITY 1.019 (1.000-1.030); UROBILINOGEN NEG (NEG)
[2016-08-19 17:56] LABS: MANUAL MICROSCOPIC REQUIRED? NO; REVIEW REQ? YES; SULFASALICYLIC ACID POS (NEG)
[2016-08-19] MEDS: LORAZEPAM 0.5 MG TAB PO SCH (17:56)
[2016-08-19] MEDS: CEFTAROLINE FOSAMIL IV SCH (18:19)
[2016-08-19] MEDS: SODIUM CHLORIDE 0.9% IV SCH (18:19)
[2016-08-19] MEDS: IMIPENEM/CILASTATIN IV 250 MG in 5% D5W 100ML IV SCH (18:19)
[2016-08-19] MEDS: METOPROLOL SUCC 25MG EXT REL TAB PO SCH (21:00)
[2016-08-19] MEDS: FLUTICASONE/SALMETEROL 250/50 (ADVAIR) 14 PUFF/1 INHALER INH SCH (21:18)
[2016-08-19] MEDS: ATORVASTATIN 40 MG TAB PO SCH (21:19)
[2016-08-19] MEDS: DOCUSATE SODIUM/SENNA 50/8.6MG TAB PO SCH (21:19)
[2016-08-19] MEDS: LACTOBACILLUS ACIDOPHILUS (FLORANEX) TAB PO SCH (21:19)
[2016-08-19] MEDS: GABAPENTIN 100 MG CAP PO SCH (21:19)
[2016-08-19] MEDS: OXYCODONE HCL 15 MG TABCR (OXYCONTIN) PO SCH (21:25)
[2016-08-19] MEDS: INSULIN GLARGINE SOLOSTAR 100 UNITS/ML 3 ML PEN SC SCH (21:27)
[2016-08-20 03:11] VITALS: BP 110/77; PULSE 73; TEMP 37; O2SAT 100
[2016-08-20] MEDS: CEFTAROLINE FOSAMIL IV SCH ×2 (05:42→17:12)
[2016-08-20] MEDS: OXYCODONE HCL 15 MG TABCR (OXYCONTIN) PO SCH ×3 (05:42→20:35)
[2016-08-20] MEDS: IMIPENEM/CILASTATIN IV 250 MG in 5% D5W 100ML IV SCH (05:42)
[2016-08-20] MEDS: SODIUM CHLORIDE 0.9% IV SCH ×2 (05:42→17:12)
[2016-08-20] MEDS: GABAPENTIN 100 MG CAP PO SCH ×3 (05:42→20:34)
[2016-08-20 05:46] LABS: HEMATOCRIT 37.4 % (42-52); MEAN CELL VOLUME 88.8 fL (80-100); MEAN CORPUSCULAR HEMOGLOBIN 29.2 pg (25-34); MEAN CORPUSCULAR HGB CONC 32.9 g/dl (32-36); MEAN PLATELET VOLUME 9.7 fL (7.4-10.4); PLATELET COUNT 176 K/uL (130-400); RED BLOOD COUNT 4.21 M/uL (4.7-6.1); WHITE BLOOD COUNT 9.62 K/uL (4.8-10.8)
[2016-08-20 06:33] LABS: BUN/CREATININE RATIO 13.9 (10-20); CALCIUM 9.2 mg/dl (8.5-10.1); CREATININE 4.4 mg/dl (0.60-1.40); MAGNESIUM 2.3 mg/dl (1.8-2.4); POTASSIUM 5.3 mmol/L (3.5-5.1)
--- NOTE | 2016-08-20 08:01 | Medical Consult ---
Consultation Note Date of Service Aug 20, 2016. Consultation Note No consult required. H&P from earlier on the day of admission was done. Permcath removed. Will replace later this week.
[2016-08-20 08:08] VITALS: BP 119/82; PULSE 85; TEMP 36.8; O2SAT 96
[2016-08-20] MEDS: LORATADINE 10 MG TAB PO SCH (08:48)
[2016-08-20] MEDS: ASCORBIC ACID 500 MG TAB PO SCH (08:48)
[2016-08-20] MEDS: METOPROLOL SUCC 25MG EXT REL TAB PO SCH ×2 (08:48→20:34)
[2016-08-20] MEDS: CHOLECALCIFEROL 1000 INTER.UNIT TAB PO SCH (09:00)
[2016-08-20] MEDS: FERROUS SULFATE 325 MG TAB PO SCH (09:00)
[2016-08-20] MEDS: POLYETHYLENE (MIRALAX) 17 GM PACK PO SCH (09:00)
[2016-08-20] MEDS: DEXAMETHASONE 1 MG TAB PO SCH (09:00)
[2016-08-20] MEDS: LACTOBACILLUS ACIDOPHILUS (FLORANEX) TAB PO SCH ×3 (09:00→20:34)
[2016-08-20] MEDS: FLUTICASONE/SALMETEROL 250/50 (ADVAIR) 14 PUFF/1 INHALER INH SCH ×2 (09:01→20:34)
[2016-08-20] MEDS: CALCIUM ACETATE 667MG GELCAP PO SCH ×3 (09:01→17:07)
[2016-08-20] MEDS: IPRATROPIUM BROMIDE/ALBUTEROL respimat INH INH SCH ×4 (09:02→20:34)
[2016-08-20] MEDS: PANTOprazole SOD 40 MG TAB PO SCH (09:02)
[2016-08-20] MEDS: INSULIN GLARGINE SOLOSTAR 100 UNITS/ML 3 ML PEN SC SCH ×2 (09:31→20:45)
[2016-08-20] MEDS: LORAZEPAM 0.5 MG TAB PO SCH ×3 (09:31→20:34)
[2016-08-20] MEDS: INSULIN ASPART 100 UNITS/ML 3 ML PEN SC SCH ×4 (09:32→20:44)
--- NOTE | 2016-08-20 10:05 | NEPHROLOGY CONSULTATION ---
DATE OF CONSULTATION: 08/20/2016 DATE OF CONSULTATION: 08/20/2016. ATTENDING OF RECORD: Dr. Wilkes. REASON FOR CONSULTATION: ESRD. HISTORY OF PRESENT ILLNESS: This is a 56-year-old male with significant history of ischemic cardiomyopathy status post ICD, who does dialysis Mondays, Wednesdays, Fridays at the [facility] Dialysis unit in [place] who has underlying type 2 diabetes as well as significant vascular disease who has chronic right lower extremity wound infection over his knee growing pseudomonas and proteus and has been on IV vancomycin chronically to help with the infection. The patient was in the hospital previously with low blood pressures, sepsis, positive blood cultures. The patient's repeat cultures were negative and I attempted to treat the chronic bacterial infection and possible tunnel line infection with continued IV vancomycin at the dialysis unit. The patient symptomatically was good and the catheter was nontender with no drainage. However, the patient was having recurrent positive blood cultures at the dialysis unit so with positive blood cultures while on antibiotics, I felt the catheter should come out. The patient came yesterday and had catheter removed. Cath tip was sent for culture. The patient was admitted afterwards and started on antibiotics. Infectious disease has been consulted. The patient does have a chronic Butler catheter and the urine does appear infectious. The patient is comfortable with no fevers or chills. No elevated white count and is currently access free in terms of dialysis. REVIEW OF SYSTEMS: No fevers or chills. No blurry vision. No dysphagia. Does have shortness of breath with exertion. No chest pain, no abdominal pain, no diarrhea or constipation. Does have chronic right knee pain with chronic wound infection of the right knee. All other review of systems otherwise negative. PAST MEDICAL HISTORY: Ischemic cardiomyopathy requiring defibrillator, anemia of end-stage renal disease, end stage renal disease, type 2 diabetes, hypertension, osteomyelitis of the back in November 2015 where the patient was life-flighted to [place] and nearly , significant peripheral arterial disease and peripheral vascular disease. PAST SURGICAL HISTORY: Left AKA, defibrillator, tunneled dialysis catheter, fem-pop bypass, toe amputations of the right foot. FAMILY HISTORY: Significant for heart disease. SOCIAL HISTORY: Former smoker, no alcohol, no drugs. Single, lives in longterm. MEDICATIONS: Imipenem IV q. 12, vitamin C 500 mg daily, Claritin 10 mg daily, vitamin D 5000 units daily, Decadron 2 mg daily, iron 325 daily, MiraLax 17 grams daily, Protonix 40 mg daily, Neurontin 200 mg p.o. q. 8, oxycodone 30 mg p.o. q. 8, Lipitor 40 mg at night, Advair inhaler twice a day, Lantus 5 units subQ b.i.d., Toprol-XL 25 mg p.o. b.i.d., senna 1 tab at night, ceftaroline IV q. 12, PhosLo 2 p.o. t.i.d. with meals. PHYSICAL EXAMINATION: VITAL SIGNS: Temperature 36.8, pulse 85, respiratory rate 18, blood pressure 119/82, satting 96% on room air. GENERAL: Awake, alert, oriented x3. EYES: No scleral icterus. ENT: Moist mucous membranes. NECK: Supple. PULMONARY: Clear to auscultation. CARDIAC: Regular rate and rhythm. ABDOMEN: Bowel sounds positive, soft, nontender. EXTREMITIES: Right knee is wrapped and is tender. Left AKA. GENITOURINARY: Chronic Butler catheter. DERMATOLOGY: Chronic right lower extremity infection. NEUROLOGICALLY: Nonfocal. LABORATORY DATA: White count 9, H\T\H 12 and 37, platelet count 176. Sodium level 131, potassium is 5.3, chloride is 97, bicarbonate is 22, BUN 61, creatinine is 4.4, glucose is 80, calcium is 9.2, mag is 2.3. Urine shows a pH greater than 9, specific gravity 1.019, 4+ protein, 3+ blood, large leukocyte esterase, greater than 30 WBCs, 10-30 RBCs. Urine cultures and blood cultures are pending. Cath tip culture also pending. Right wound culture pending. Chest x-ray shows mild right lower lung opacity which favors atelectasis, possible small right pleural effusion, cardiomegaly without evidence of pulmonary edema. IMPRESSION AND PLAN: 1. End-stage renal disease. The patient did have dialysis Friday morning and then had a cath tip removed and following blood cultures. Once repeat blood cultures are negative, we will plan to have the tunneled line replaced and started back on dialysis. Currently on a fluid restriction as well as a renal diet and following the potassium and volume status closely. If necessary, may need a temporary dialysis catheter placed while waiting for repeat cultures to be negative. If the cultures continue to be positive, may need to do a GAVI to rule out endocarditis. The patient does have several sources of infection, chronic Butler catheter with urine looks infectious, right lower extremity chronic wound has grown Proteus and pseudomonas in the past, history of paravertebral discitis/osteomyelitis of the lower back in the past which nearly killed him, tunneled dialysis catheter which has been removed, defibrillator that chronically in place. Greatly appreciate infectious disease help and support. 2. Anemia of renal failure. Hemoglobin levels are stable and will dose Procrit accordingly to keep hemoglobin levels up. 3. Renal osteodystrophy. The patient is on PhosLo. Will follow phosphorus levels intermittently.
--- NOTE | 2016-08-20 10:47 | Infectious Disease Progress Nt ---
Progress Note Date of Service Aug 20, 2016. Subjective Pt evaluation today including: conversation w/ patient, physical exam, chart review, lab review, review of studies, review of inpatient medication list Patient is having increased pain in the right knee this morning. He states that nothing makes it better. His cultures are still pending. Culture of the catheter tip is showing no growth to date. Nephrology consult reviewed. Repeat WBC count 9.62. He has been afebrile today, but previously was having fever up to 38 C. CXR showed mild right lower lung opacity favoring atelectasis and possible small right pleural effusion. All Other Systems: Reviewed and Negative Medications Current Inpatient Medications Medications (Trade) Dose Ordered Sig/Edin Route Start Time Stop Time Status Last Admin Dose Admin Acetaminophen (Tylenol Tab) 650 mg Q4H PRN PO 08/19/16 14:00 09/18/16 13:59 08/19/16 16:41 650 MG Ondansetron HCl (Zofran Inj) 4 mg Q6H PRN IV 08/19/16 14:00 09/18/16 13:59 Imipenem/ Cilastatin Sodium (Consult) 1 ea UD PRN N/A 08/19/16 14:30 09/18/16 14:29 Insulin Aspart (novoLOG ASPART) SLIDING SCALE If C... ACHS SC 08/19/16 16:15 09/18/16 16:14 08/20/16 09:32 3 UNITS Glucose (Glucose 40% Gel) 15-30 GRAMS 15 GRAMS... UD PRN PO 08/19/16 14:15 09/18/16 14:14 Glucose (Glucose Chew Tab) 4-8 Tablets 4 Tabl... UD PRN PO 08/19/16 14:15 09/18/16 14:14 Dextrose (Dextrose 50% 50ML Syringe) 25-50ML OF 50% DW IV FOR... UD PRN IV 08/19/16 14:15 09/18/16 14:14 Glucagon (Glucagon Inj) 1 mg UD PRN SQ 08/19/16 14:15 09/18/16 14:14 Ascorbic Acid (Vitamin C Tab) 500 mg DAILY PO 08/20/16 09:00 09/19/16 08:59 08/20/16 08:48 500 MG Atorvastatin Calcium (Lipitor Tab) 40 mg HS PO 08/19/16 21:00 09/18/16 20:59 08/19/16 21:19 40 MG Calcium Acetate (Phoslo Cap) 1,334 mg TIDM PO 08/19/16 16:45 09/18/16 17:59 08/20/16 09:01 1,334 MG Salmeterol Xinafoate/ Fluticasone (Advair Diskus 250/50 Inh) 1 puff BID INH 08/19/16 21:00 09/18/16 20:59 08/20/16 09:01 1 PUFF Gabapentin (Neurontin Cap) 200 mg Q8 PO 08/19/16 22:00 09/18/16 21:59 08/20/16 05:42 200 MG Insulin Glargine (Lantus Solostar Pen) 5 unit BID SC 08/19/16 21:00 09/18/16 20:59 08/20/16 09:31 5 UNIT Albuterol/ Ipratropium (Combivent Respimat Inh) 1 puffs QID INH 08/19/16 17:00 09/18/16 16:59 08/20/16 09:02 1 PUFFS Lactobacillus Acidophilus (Floranex Tab) 1 tab TID PO 08/19/16 21:00 09/18/16 20:59 08/20/16 09:00 1 TAB Loratadine (Claritin Tab) 10 mg DAILY PO 08/20/16 09:00 09/19/16 08:59 08/20/16 08:48 10 MG Lorazepam (Ativan Tab) 0.5 mg TID PO 08/19/16 21:00 09/18/16 20:59 08/20/16 09:31 0.5 MG Metoprolol Succinate (Toprol Xl Tab) 25 mg BID PO 08/19/16 21:00 09/18/16 20:59 08/20/16 08:48 25 MG Oxycodone HCl (Oxycontin Tab) 30 mg Q8 PO 08/19/16 22:00 09/02/16 21:59 08/20/16 05:42 30 MG Oxycodone HCl (Roxicodone Immediate Rel Tab) 10 mg DAILY PRN PO 08/19/16 15:00 09/02/16 14:59 Senna/Docusate Sodium (Senokot S Tab) 1 tab HS PO 08/19/16 21:00 09/18/16 20:59 08/19/16 21:19 1 TAB Cholecalciferol (Vitamin D Tab) 5,000 inter.unit DAILY PO 08/20/16 09:00 09/19/16 08:59 08/20/16 09:00 5,000 INTER.UNIT Dexamethasone (Decadron Tab) 2 mg DAILY PO 08/20/16 09:00 09/19/16 08:59 08/20/16 09:00 2 MG Ferrous Sulfate (Feosol Tab) 325 mg DAILY PO 08/20/16 09:00 09/19/16 08:59 08/20/16 09:00 325 MG Polyethylene (Miralax Powder Packet) 17 gm QAM PO 08/20/16 09:00 09/19/16 08:59 08/20/16 09:00 17 GM Miscellaneous Information (Order Awaiting Action) 1 ea QS N/A 08/19/16 16:00 09/18/16 15:59 08/19/16 19:26 1 EA Pantoprazole Sodium 40 mg 40 mg QAM PO 08/20/16 09:00 09/19/16 08:59 08/20/16 09:02 40 MG Ceftaroline Fosamil/Sodium Chloride (Teflaro Inj/Nss 250ml) 256.6667 ml @ 250 mls/hr Q12H IV 08/19/16 18:00 09/02/16 17:59 08/20/16 05:42 250 MLS/HR Miscellaneous Information 1 ea 1 ea UD PRN N/A 08/19/16 17:15 09/18/16 17:14 Imipenem/ Cilastatin Sodium/ Dextrose (Primaxin Iv/D5 100ml) 110 ml @ 105 mls/hr Q12H IV 08/20/16 20:00 08/30/16 19:59 Objective Vital Signs Date Time Temp Pulse Resp B/P Pulse Ox O2 Delivery O2 Flow Rate FiO2 08/20/16 08:08 36.8 85 18 119/82 96 Room Air 08/20/16 08:00 Room Air 08/20/16 04:04 Room Air 08/20/16 03:11 37.0 73 17 110/77 100 Room Air 08/20/16 00:07 Room Air 08/19/16 23:26 36.8 71 18 106/72 100 Room Air 08/19/16 20:50 Room Air 08/19/16 20:00 36.6 76 18 99/63 97 08/19/16 15:54 37.1 80 18 109/75 96 Room Air 08/19/16 15:25 36.6 86 19 128/85 98 Room Air 08/19/16 13:40 114 18 105/82 95 Room Air 08/19/16 13:10 38 88 18 109/84 96 Room Air 08/19/16 12:19 37.6 82 20 135/81 98 Room Air 08/19/16 11:23 37.6 82 20 135/81 98 Room Air Physical Exam General Appearance: WD/WN, + mild distress (pain) Eyes: normal inspection, sclerae normal ENT: hearing grossly normal Neck: supple, trachea midline Respiratory/Chest: chest non-tender, normal breath sounds, no respiratory distress, no accessory muscle use Cardiovascular: regular rate, rhythm Abdomen: normal bowel sounds, non tender, soft Extremities: + pertinent finding (left AKA. Right knee with bandage in place) Neurologic/Psychiatric: alert, normal mood/affect Skin: normal color, warm/dry, no rash Laboratory Results RUN DATE: 08/20/16 [facility] LAB PAGE 1 RUN TIME: 1001 Specimen Inquiry PATIENT: YOUNG HINKLE LOC: Star # : [id number] AGE/SX: 56/M ROOM: S235 REG : 08/19/[address]: Pooja. Ballard S : 1960 BED: 1 DIS : STATUS: ADM IN TLOC: SPEC #: [id number] CLAUDIA: 08/19/16 STATUS: RES REQ #: [id number] RECD: 08/19/[address]: Cody Bermudez M.D. SOURCE: CATH TIP ENTR: 08/19/16 [facility] DR: Eugene Willoughby M.D. [facility]: Fausto Waddell D.O. ORDERED: CT Procedure Result Verified Site CATHETER TIP CULTURE Preliminary 08/20/16-1001 NO GROWTH TO DATE. Item Value Date Time Blood Culture Received 08/20/16 0530 Blood Pending Blood Culture Received 08/20/16 0520 Blood Pending Urine Culture Received 08/19/16 1720 Urine,Catheterized Pending Blood Culture Received 08/19/16 1420 Blood Pending Blood Culture Received 08/19/16 1414 Blood Pending Catheter Tip Culture - Preliminary Resulted 08/19/16 1300 Catheter Tip Perm. Catheter NO GROWTH TO DATE. Last 24 Hours Test 08/19/16 11:34 08/19/16 14:20 08/19/16 16:32 08/19/16 17:20 Bedside Glucose 111 mg/dl 127 mg/dl White Blood Count 10.22 K/uL Red Blood Count 4.16 M/uL Hemoglobin 12.4 g/dL Hematocrit 38.2 % Mean Corpuscular Volume 91.8 fL Mean Corpuscular Hemoglobin 29.8 pg Mean Corpuscular Hemoglobin Concent 32.5 g/dl Platelet Count 166 K/uL Mean Platelet Volume 9.3 fL Neutrophils (%) (Auto) 75.2 % Lymphocytes (%) (Auto) 10.6 % Monocytes (%) (Auto) 11.4 % Eosinophils (%) (Auto) 1.4 % Basophils (%) (Auto) 0.4 % Neutrophils # (Auto) 7.70 K/uL Lymphocytes # (Auto) 1.08 K/uL Monocytes # (Auto) 1.16 K/uL Eosinophils # (Auto) 0.14 K/uL Basophils # (Auto) 0.04 K/uL RDW Standard Deviation 53.0 fL RDW Coefficient of Variation 15.7 % Immature Granulocyte % (Auto) 1.0 % Immature Granulocyte # (Auto) 0.10 K/uL Sodium Level 133 mmol/L Potassium Level 4.8 mmol/L Chloride Level 97 mmol/L Carbon Dioxide Level 25 mmol/L Anion Gap 11.0 mmol/L Blood Urea Nitrogen 48 mg/dl Creatinine 3.50 mg/dl Est Creatinine Clear Calc Drug Dose 19.7 ml/min Estimated GFR () 21.2 Estimated GFR (Non- 18.3 BUN/Creatinine Ratio 13.9 Random Glucose 152 mg/dl Lactic Acid Level 1.9 mmol/L Calcium Level 9.1 mg/dl Magnesium Level 2.4 mg/dl Urine Color ORANGE Urine Appearance TURBID Urine pH >= 9.0 Urine Specific [place] 1.019 Urine Protein 4+ Urine Glucose (UA) TRACE Urine Ketones NEG Urine Occult Blood 3+ Urine Nitrite NEG Urine Bilirubin NEG Urine Urobilinogen NEG Urine Leukocyte Esterase LARGE Urine WBC (Auto) >30 /hpf Urine RBC (Auto) 10-30 /hpf Urine Hyaline Casts (Auto) 10-30 /lpf Urine Epithelial Cells (Auto) >30 /lpf Urine Bacteria (Auto) 1+ Urine Crystals TRIPLE PHOSPHATE Urine Yeast (Auto) PRESENT Test 08/19/16 21:01 08/20/16 05:00 08/20/16 06:59 08/20/16 09:29 Bedside Glucose 150 mg/dl 82 mg/dl White Blood Count 9.62 K/uL Red Blood Count 4.21 M/uL Hemoglobin 12.3 g/dL Hematocrit 37.4 % Mean Corpuscular Volume 88.8 fL Mean Corpuscular Hemoglobin 29.2 pg Mean Corpuscular Hemoglobin Concent 32.9 g/dl RDW Standard Deviation 50.1 fL RDW Coefficient of Variation 15.5 % Platelet Count 176 K/uL Mean Platelet Volume 9.7 fL Sodium Level 131 mmol/L Potassium Level 5.3 mmol/L Chloride Level 97 mmol/L Carbon Dioxide Level 22 mmol/L Anion Gap 12.0 mmol/L Blood Urea Nitrogen 61 mg/dl Creatinine 4.40 mg/dl Est Creatinine Clear Calc Drug Dose 15.7 ml/min Estimated GFR () 16.1 Estimated GFR (Non- 13.9 BUN/Creatinine Ratio 13.9 Random Glucose 80 mg/dl Calcium Level 9.2 mg/dl Magnesium Level 2.3 mg/dl Hepatitis B Surface Antigen NEG Assessment and Plan Patient with ESRD on HD with likely infected perm cath and recurrent MRSA bacteremia. Blood and urine cultures pending. Repeat blood cultures taken this morning. Catheter culture showing NGTD. Patient with history of recurrent MRSA bacteremia. He is currently on IV Ceftaroline and Primaxin. Agree with Dr. Flores that patient will need repeat TTE and possibly GAVI if continued bacteremia. We will follow and adjust when cultures are available. PROVIDER ADDENDUM: Pt. reviewed with Ms. Tapia. Agree with above assessment.
[2016-08-20 12:04] VITALS: BP 98/66; PULSE 82; TEMP 36.8; O2SAT 95
--- NOTE | 2016-08-20 12:55 | Progress Note ---
Internal Med Progress Note Date of Service: Aug 20, 2016. Provider Documentation: SUBJECTIVE: Patient denies any new complaints Does have wounds- RLE, Left buttock ulceration. No fever since admission, no chills. No chest pain, SOB, nausea, vomiting, abdominal pain, diarrhea OBJECTIVE: Vital Signs-as noted below Exam: General-AAOX3, no distress, obese Neck-Supple Lungs-AEBE decreased, no wheezing, rhonchi, rales Heart-S1, S2 normal; Right chest- dressing + s/p perm cath removal Abdomen-Soft, non tender, non distended, BS present Extremities-S/P Left AKA, Right Knee- Wound + dressing + Left buttock- Stage II ulceration Neuro-Grossly no focal deficits Lab data as noted below. ASSESSMENT & PLAN: FEVER MRSA BACTEREMIA HX RIGHT KNEE WOUND INFECTION (pseudomonas, proteus) Patient had fever spikes outpatient, Blood cx drawn on 08/12/16 at [facility] grew MRSA, was scheduled for removal of right perma cath on 08/19/16- removed, catheter tip for culture- negative for any growth. Was admitted to hospital for intermittent confusion post procedure, fever spikes with recent MRSA bactermia -Afebrile since low grad fever spike 37.6 C outpatient, no leucocytosis, Lactic acid WNL -IV Vancomycin, IV Imipenem per ID . Was on IV Vancomycin outpatient with MRSA bacteremia noted on 08/12/16 -Follow up- Blood cx x 2 pending, Urine cx- GNB, Wound cx- not collected -ID on board, appreciate inputs ESRD Nephrology consulted; discussed w/ Dr. Flores; appreciate input Last HD on 08/19/16. S/p permcath removal 08/19/16 -Patient has no dialysis access currently -On Fluid restriction, Renal diet -Plan is to put tunneled line in tomorrow if blood cultures negative -Vascular surgery on board. HYPERKALEMIA Secondary to above -Mx as above RIGHT KNEE AND LEFT BUTTOCK ULCERATIONS (STAGE II) -S/p skin graft of right knee wound on 08/15/16 -Consulted wound care nurse and wound care physician CHRONIC SYSTOLIC CHF/ ISCHEMIC CARDIOMYOPATHY EF 15-20% -Currently euvolemic PRESUMED CAD Stable -Hold aspirin until OK by vascular surgery -Continue beta david, statin DM TYPE 2 -Continue Lantus -Insulin sliding scale coverage CHRONIC RESPIRATORY FAILURE -Continue home oxygen 3L PRN DVT PROPHYLAXIS SCD's FULL CODE Per preference on recent admission DISPOSITION Resides at [facility] Vital Signs: Date Time Temp Pulse Resp B/P Pulse Ox O2 Delivery O2 Flow Rate FiO2 08/20/16 12:04 36.8 82 16 98/66 95 Room Air 08/20/16 08:08 36.8 85 18 119/82 96 Room Air 08/20/16 08:00 Room Air 08/20/16 04:04 Room Air 08/20/16 03:11 37.0 73 17 110/77 100 Room Air 08/20/16 00:07 Room Air 08/19/16 23:26 36.8 71 18 106/72 100 Room Air 08/19/16 20:50 Room Air 08/19/16 20:00 36.6 76 18 99/63 97 08/19/16 15:54 37.1 80 18 109/75 96 Room Air 08/19/16 15:25 36.6 86 19 128/85 98 Room Air 08/19/16 13:40 114 18 105/82 95 Room Air 08/19/16 13:10 38 88 18 109/84 96 Room Air Lab Results: Results Past 24 Hours Test 08/19/16 14:20 08/19/16 16:32 08/19/16 17:20 08/19/16 21:01 Range/Units White Blood Count 10.22 4.8-10.8 K/uL Red Blood Count 4.16 4.7-6.1 M/uL Hemoglobin 12.4 14.0-18.0 g/dL Hematocrit 38.2 42-52 % Mean Corpuscular Volume 91.8 80-100 fL Mean Corpuscular Hemoglobin 29.8 25-34 pg Mean Corpuscular Hemoglobin Concent 32.5 32-36 g/dl Platelet Count 166 130-400 K/uL Mean Platelet Volume 9.3 7.4-10.4 fL Neutrophils (%) (Auto) 75.2 % Lymphocytes (%) (Auto) 10.6 % Monocytes (%) (Auto) 11.4 % Eosinophils (%) (Auto) 1.4 % Basophils (%) (Auto) 0.4 % Neutrophils # (Auto) 7.70 1.4-6.5 K/uL Lymphocytes # (Auto) 1.08 1.2-3.4 K/uL Monocytes # (Auto) 1.16 0.11-0.59 K/uL Eosinophils # (Auto) 0.14 0-0.5 K/uL Basophils # (Auto) 0.04 0-0.2 K/uL RDW Standard Deviation 53.0 36.4-46.3 fL RDW Coefficient of Variation 15.7 11.5-14.5 % Immature Granulocyte % (Auto) 1.0 % Immature Granulocyte # (Auto) 0.10 0.00-0.02 K/uL Sodium Level 133 136-145 mmol/L Potassium Level 4.8 3.5-5.1 mmol/L Chloride Level 97 98-107 mmol/L Carbon Dioxide Level 25 21-32 mmol/L Anion Gap 11.0 3-11 mmol/L Blood Urea Nitrogen 48 7-18 mg/dl Creatinine 3.50 0.60-1.40 mg/dl Est Creatinine Clear Calc Drug Dose 19.7 ml/min Estimated GFR () 21.2 Estimated GFR (Non- 18.3 BUN/Creatinine Ratio 13.9 10-20 Random Glucose 152 70-99 mg/dl Lactic Acid Level 1.9 0.4-2.0 mmol/L Calcium Level 9.1 8.5-10.1 mg/dl Magnesium Level 2.4 1.8-2.4 mg/dl Bedside Glucose 127 150 70-99 mg/dl Urine Color ORANGE Urine Appearance TURBID CLEAR Urine pH >= 9.0 4.5-7.5 Urine Specific [place] 1.019 1.000-1.030 Urine Protein 4+ NEG Urine Glucose (UA) TRACE NEG Urine Ketones NEG NEG Urine Occult Blood 3+ NEG Urine Nitrite NEG NEG Urine Bilirubin NEG NEG Urine Urobilinogen NEG NEG Urine Leukocyte Esterase LARGE NEG Urine WBC (Auto) >30 0-5 /hpf Urine RBC (Auto) 10-30 0-4 /hpf Urine Hyaline Casts (Auto) 10-30 0-5 /lpf Urine Epithelial Cells (Auto) >30 0-5 /lpf Urine Bacteria (Auto) 1+ NEG Urine Crystals TRIPLE PHOSPHATE NONE PRSENT Urine Yeast (Auto) PRESENT NONE PRSENT Test 08/20/16 05:00 08/20/16 06:59 08/20/16 09:29 08/20/16 11:36 Range/Units White Blood Count 9.62 4.8-10.8 K/uL Red Blood Count 4.21 4.7-6.1 M/uL Hemoglobin 12.3 14.0-18.0 g/dL Hematocrit 37.4 42-52 % Mean Corpuscular Volume 88.8 80-100 fL Mean Corpuscular Hemoglobin 29.2 25-34 pg Mean Corpuscular Hemoglobin Concent 32.9 32-36 g/dl RDW Standard Deviation 50.1 36.4-46.3 fL RDW Coefficient of Variation 15.5 11.5-14.5 % Platelet Count 176 130-400 K/uL Mean Platelet Volume 9.7 7.4-10.4 fL Sodium Level 131 136-145 mmol/L Potassium Level 5.3 3.5-5.1 mmol/L Chloride Level 97 98-107 mmol/L Carbon Dioxide Level 22 21-32 mmol/L Anion Gap 12.0 3-11 mmol/L Blood Urea Nitrogen 61 7-18 mg/dl Creatinine 4.40 0.60-1.40 mg/dl Est Creatinine Clear Calc Drug Dose 15.7 ml/min Estimated GFR () 16.1 Estimated GFR (Non- 13.9 BUN/Creatinine Ratio 13.9 10-20 Random Glucose 80 70-99 mg/dl Calcium Level 9.2 8.5-10.1 mg/dl Magnesium Level 2.3 1.8-2.4 mg/dl Bedside Glucose 82 120 70-99 mg/dl Hepatitis B Surface Antigen NEG NEG Microbiology Results 08/20/16 Blood Culture, Received Pending 08/20/16 Blood Culture, Received Pending 08/19/16 Blood Culture, Received Pending 08/19/16 Blood Culture, Received Pending 08/19/16 Urine Culture - Preliminary, Resulted Gram Negative Bacilli 08/19/16 Catheter Tip Culture - Preliminary, Resulted NO GROWTH TO DATE.
[2016-08-20 16:59] VITALS: BP 120/80; PULSE 82; TEMP 36.9; O2SAT 97
[2016-08-20] MEDS ORDERED: IMIPENEM/CILASTATIN IV 500 MG in DEXTROSE 5% 100ML 100 ML IV SCH (18:00)
[2016-08-20 19:36] VITALS: BP 122/80; PULSE 84; TEMP 37; O2SAT 97
[2016-08-20] MEDS: ATORVASTATIN 40 MG TAB PO SCH (20:34)
[2016-08-20] MEDS: DOCUSATE SODIUM/SENNA 50/8.6MG TAB PO SCH (20:34)
[2016-08-20] MEDS: IMIPENEM/CILASTATIN IV 500 MG in DEXTROSE 5% 100ML 100 ML IV SCH (20:34)
[2016-08-20 23:36] VITALS: BP 137/91; PULSE 88; TEMP 36.8; O2SAT 95
[2016-08-21 03:28] VITALS: BP 120/85; PULSE 79; TEMP 36.5; O2SAT 97
[2016-08-21] MEDS: CEFTAROLINE FOSAMIL IV SCH ×2 (05:51→18:04)
[2016-08-21] MEDS: SODIUM CHLORIDE 0.9% IV SCH ×2 (05:51→18:04)
[2016-08-21] MEDS: OXYCODONE HCL 15 MG TABCR (OXYCONTIN) PO SCH ×3 (05:51→21:30)
[2016-08-21] MEDS: GABAPENTIN 100 MG CAP PO SCH ×3 (06:32→21:30)
[2016-08-21 07:01] VITALS: BP 120/84; PULSE 80; TEMP 36.4; O2SAT 97
[2016-08-21] MEDS: INSULIN ASPART 100 UNITS/ML 3 ML PEN SC SCH ×4 (08:16→20:44)
[2016-08-21] MEDS: INSULIN GLARGINE SOLOSTAR 100 UNITS/ML 3 ML PEN SC SCH ×2 (08:17→20:45)
[2016-08-21] MEDS: CALCIUM ACETATE 667MG GELCAP PO SCH ×3 (08:19→17:18)
[2016-08-21] MEDS: IMIPENEM/CILASTATIN IV 500 MG in DEXTROSE 5% 100ML 100 ML IV SCH (08:42)
[2016-08-21] MEDS: POLYETHYLENE (MIRALAX) 17 GM PACK PO SCH (08:43)
[2016-08-21] MEDS: DEXAMETHASONE 1 MG TAB PO SCH (08:43)
[2016-08-21] MEDS: METOPROLOL SUCC 25MG EXT REL TAB PO SCH ×2 (08:44→20:43)
[2016-08-21] MEDS: FERROUS SULFATE 325 MG TAB PO SCH (08:44)
[2016-08-21] MEDS: LACTOBACILLUS ACIDOPHILUS (FLORANEX) TAB PO SCH ×3 (08:44→20:43)
[2016-08-21] MEDS: LORATADINE 10 MG TAB PO SCH (08:44)
[2016-08-21] MEDS: LORAZEPAM 0.5 MG TAB PO SCH ×3 (08:45→20:43)
[2016-08-21] MEDS: PANTOprazole SOD 40 MG TAB PO SCH (08:45)
[2016-08-21] MEDS: CHOLECALCIFEROL 1000 INTER.UNIT TAB PO SCH (08:45)
[2016-08-21] MEDS: ASCORBIC ACID 500 MG TAB PO SCH (08:46)
[2016-08-21] MEDS: FLUTICASONE/SALMETEROL 250/50 (ADVAIR) 14 PUFF/1 INHALER INH SCH ×2 (08:47→20:42)
[2016-08-21] MEDS: IPRATROPIUM BROMIDE/ALBUTEROL respimat INH INH SCH ×4 (08:47→20:42)
--- NOTE | 2016-08-21 09:16 | Progress Note ---
Progress Note Date of Service Aug 21, 2016. Progress Note Patient had blood cultures done yesterday. Would recommend an insertion of a temporary femoral dialysis catheter tomorrow and then wait for the final results of the blood cultures prior to inserting a tunneled line.
[2016-08-21 10:39] LABS: BUN/CREATININE RATIO 17.3 (10-20); CALCIUM 8.3 mg/dl (8.5-10.1); CREATININE 5.7 mg/dl (0.60-1.40); POTASSIUM 5.1 mmol/L (3.5-5.1)
--- NOTE | 2016-08-21 10:43 | Nephrology Progress Note ---
Nephrology Progress Note Date of Service: Aug 21, 2016. Subjective 56 yo male with esrd with positive blood cultures while on vanco and had tunneled line removed. pt tearful. trying to control knee pain as much as possible. has chronic blair as well. hx of previous diskitis of back and has aicd as well. has chronic knee infection. Objective Date Time Temp Pulse Resp B/P Pulse Ox O2 Delivery O2 Flow Rate FiO2 08/21/16 08:00 Room Air 08/21/16 07:36 Room Air 08/21/16 07:01 36.4 80 16 120/84 97 Room Air 08/21/16 04:00 Mask 2.0 08/21/16 03:28 36.5 79 20 120/85 97 Room Air 08/20/16 23:59 Mask 2.0 08/20/16 23:36 36.8 88 18 137/91 95 Room Air 08/20/16 20:08 Room Air 08/20/16 19:36 37.0 84 18 122/80 97 Room Air 08/20/16 16:59 36.9 82 16 120/80 97 Room Air 08/20/16 16:00 Room Air 08/20/16 12:04 36.8 82 16 98/66 95 Room Air 08/20/16 12:00 Room Air Physical Exam: General-aaox3 Eyes-no scleral icterus ENT-mmm Neck-supple Lungs-decreased at bases Heart-rrr Abdomen-bs+ s/nt/nd Extremities-+1 edema, chronic right knee infection, left aka Neuro-nonfocal Current Inpatient Medications Medications (Trade) Dose Ordered Sig/Edin Route Start Time Stop Time Status Last Admin Dose Admin Acetaminophen (Tylenol Tab) 650 mg Q4H PRN PO 08/19/16 14:00 09/18/16 13:59 08/19/16 16:41 650 MG Ondansetron HCl (Zofran Inj) 4 mg Q6H PRN IV 08/19/16 14:00 09/18/16 13:59 Insulin Aspart (novoLOG ASPART) SLIDING SCALE If C... ACHS SC 08/19/16 16:15 09/18/16 16:14 08/21/16 08:16 5 UNITS Glucose (Glucose 40% Gel) 15-30 GRAMS 15 GRAMS... UD PRN PO 08/19/16 14:15 09/18/16 14:14 Glucose (Glucose Chew Tab) 4-8 Tablets 4 Tabl... UD PRN PO 08/19/16 14:15 09/18/16 14:14 Dextrose (Dextrose 50% 50ML Syringe) 25-50ML OF 50% DW IV FOR... UD PRN IV 08/19/16 14:15 09/18/16 14:14 Glucagon (Glucagon Inj) 1 mg UD PRN SQ 08/19/16 14:15 09/18/16 14:14 Ascorbic Acid (Vitamin C Tab) 500 mg DAILY PO 08/20/16 09:00 09/19/16 08:59 08/21/16 08:46 500 MG Atorvastatin Calcium (Lipitor Tab) 40 mg HS PO 08/19/16 21:00 09/18/16 20:59 08/20/16 20:34 40 MG Calcium Acetate (Phoslo Cap) 1,334 mg TIDM PO 08/19/16 16:45 09/18/16 17:59 08/21/16 08:19 667 MG Salmeterol Xinafoate/ Fluticasone (Advair Diskus 250/50 Inh) 1 puff BID INH 08/19/16 21:00 09/18/16 20:59 08/21/16 08:47 1 PUFF Gabapentin (Neurontin Cap) 200 mg Q8 PO 08/19/16 22:00 09/18/16 21:59 08/21/16 06:32 200 MG Insulin Glargine (Lantus Solostar Pen) 5 unit BID SC 08/19/16 21:00 09/18/16 20:59 08/21/16 08:17 5 UNIT Albuterol/ Ipratropium (Combivent Respimat Inh) 1 puffs QID INH 08/19/16 17:00 09/18/16 16:59 08/21/16 08:47 1 PUFFS Lactobacillus Acidophilus (Floranex Tab) 1 tab TID PO 08/19/16 21:00 09/18/16 20:59 08/21/16 08:44 1 TAB Loratadine (Claritin Tab) 10 mg DAILY PO 08/20/16 09:00 09/19/16 08:59 08/21/16 08:44 10 MG Lorazepam (Ativan Tab) 0.5 mg TID PO 08/19/16 21:00 09/18/16 20:59 08/21/16 08:45 0.5 MG Metoprolol Succinate (Toprol Xl Tab) 25 mg BID PO 08/19/16 21:00 09/18/16 20:59 08/21/16 08:44 25 MG Oxycodone HCl (Oxycontin Tab) 30 mg Q8 PO 08/19/16 22:00 09/02/16 21:59 08/21/16 05:51 30 MG Oxycodone HCl (Roxicodone Immediate Rel Tab) 10 mg DAILY PRN PO 08/19/16 15:00 09/02/16 14:59 Senna/Docusate Sodium (Senokot S Tab) 1 tab HS PO 08/19/16 21:00 09/18/16 20:59 08/20/16 20:34 1 TAB Cholecalciferol (Vitamin D Tab) 5,000 inter.unit DAILY PO 08/20/16 09:00 09/19/16 08:59 08/21/16 08:45 5,000 INTER.UNIT Dexamethasone (Decadron Tab) 2 mg DAILY PO 08/20/16 09:00 09/19/16 08:59 08/21/16 08:43 2 MG Ferrous Sulfate (Feosol Tab) 325 mg DAILY PO 08/20/16 09:00 09/19/16 08:59 08/21/16 08:44 325 MG Polyethylene (Miralax Powder Packet) 17 gm QAM PO 08/20/16 09:00 09/19/16 08:59 08/21/16 08:43 17 GM Miscellaneous Information (Order Awaiting Action) 1 ea QS N/A 08/19/16 16:00 09/18/16 15:59 08/20/16 22:30 1 EA Pantoprazole Sodium 40 mg 40 mg QAM PO 08/20/16 09:00 09/19/16 08:59 08/21/16 08:45 40 MG Ceftaroline Fosamil/Sodium Chloride (Teflaro Inj/Nss 250ml) 256.6667 ml @ 250 mls/hr Q12H IV 08/19/16 18:00 09/02/16 17:59 08/21/16 05:51 250 MLS/HR Miscellaneous Information 1 ea UD PRN N/A 08/19/16 17:15 09/18/16 17:14 Last 24 Hours Test 08/20/16 11:36 08/20/16 16:31 08/20/16 20:35 08/21/16 07:07 Bedside Glucose 120 mg/dl 154 mg/dl 284 mg/dl 143 mg/dl Test 08/21/16 09:07 Date/Time Source Procedure Growth Status 08/21/16 09:13 Blood Blood Culture Pending Received 08/21/16 09:07 Blood Blood Culture Pending Received Assessment & Plan ESRD-for dialysis tomorrow after temporary catheter placement. doing serial blood cultures waiting for them to be negative. ID following. question source. may be tunneled line but has other possible sources of infection.
--- NOTE | 2016-08-21 10:47 | Infectious Disease Progress Nt ---
Progress Note Date of Service Aug 21, 2016. Subjective Pt evaluation today including: conversation w/ patient, physical exam, chart review, lab review, review of studies, conversation w/ data virtualization consultant (Dr. Ballard, Dr. Flores), review of inpatient medication list Patient is overall feeling well today but continues to have on and off pain in his right knee that is not currently well controlled. Initial blood cultures are growing staph species in 1/2 bottles with sensitivities pending. Repeat blood cultures drawn both yesterday and again today are pending. Urine culture growing Proteus Mirabilis which is resistant to Gentamicin and Tobramycin but otherwise sensitive. Patient currently on IV Ceftaroline and IV Primaxin. WBC count has been stable. Patient has been afebrile. All Other Systems: Reviewed and Negative Medications Current Inpatient Medications Medications (Trade) Dose Ordered Sig/Edin Route Start Time Stop Time Status Last Admin Dose Admin Acetaminophen (Tylenol Tab) 650 mg Q4H PRN PO 08/19/16 14:00 09/18/16 13:59 08/19/16 16:41 650 MG Ondansetron HCl (Zofran Inj) 4 mg Q6H PRN IV 08/19/16 14:00 09/18/16 13:59 Insulin Aspart (novoLOG ASPART) SLIDING SCALE If C... ACHS SC 08/19/16 16:15 09/18/16 16:14 08/21/16 08:16 5 UNITS Glucose (Glucose 40% Gel) 15-30 GRAMS 15 GRAMS... UD PRN PO 08/19/16 14:15 09/18/16 14:14 Glucose (Glucose Chew Tab) 4-8 Tablets 4 Tabl... UD PRN PO 08/19/16 14:15 09/18/16 14:14 Dextrose (Dextrose 50% 50ML Syringe) 25-50ML OF 50% DW IV FOR... UD PRN IV 08/19/16 14:15 09/18/16 14:14 Glucagon (Glucagon Inj) 1 mg UD PRN SQ 08/19/16 14:15 09/18/16 14:14 Ascorbic Acid (Vitamin C Tab) 500 mg DAILY PO 08/20/16 09:00 09/19/16 08:59 08/21/16 08:46 500 MG Atorvastatin Calcium (Lipitor Tab) 40 mg HS PO 08/19/16 21:00 09/18/16 20:59 08/20/16 20:34 40 MG Calcium Acetate (Phoslo Cap) 1,334 mg TIDM PO 08/19/16 16:45 09/18/16 17:59 08/21/16 08:19 667 MG Salmeterol Xinafoate/ Fluticasone (Advair Diskus 250/50 Inh) 1 puff BID INH 08/19/16 21:00 09/18/16 20:59 08/21/16 08:47 1 PUFF Gabapentin (Neurontin Cap) 200 mg Q8 PO 08/19/16 22:00 09/18/16 21:59 08/21/16 06:32 200 MG Insulin Glargine (Lantus Solostar Pen) 5 unit BID SC 08/19/16 21:00 09/18/16 20:59 08/21/16 08:17 5 UNIT Albuterol/ Ipratropium (Combivent Respimat Inh) 1 puffs QID INH 08/19/16 17:00 09/18/16 16:59 08/21/16 08:47 1 PUFFS Lactobacillus Acidophilus (Floranex Tab) 1 tab TID PO 08/19/16 21:00 09/18/16 20:59 08/21/16 08:44 1 TAB Loratadine (Claritin Tab) 10 mg DAILY PO 08/20/16 09:00 09/19/16 08:59 08/21/16 08:44 10 MG Lorazepam (Ativan Tab) 0.5 mg TID PO 08/19/16 21:00 09/18/16 20:59 08/21/16 08:45 0.5 MG Metoprolol Succinate (Toprol Xl Tab) 25 mg BID PO 08/19/16 21:00 09/18/16 20:59 08/21/16 08:44 25 MG Oxycodone HCl (Oxycontin Tab) 30 mg Q8 PO 08/19/16 22:00 09/02/16 21:59 08/21/16 05:51 30 MG Oxycodone HCl (Roxicodone Immediate Rel Tab) 10 mg DAILY PRN PO 08/19/16 15:00 09/02/16 14:59 Senna/Docusate Sodium (Senokot S Tab) 1 tab HS PO 08/19/16 21:00 09/18/16 20:59 08/20/16 20:34 1 TAB Cholecalciferol (Vitamin D Tab) 5,000 inter.unit DAILY PO 08/20/16 09:00 09/19/16 08:59 08/21/16 08:45 5,000 INTER.UNIT Dexamethasone (Decadron Tab) 2 mg DAILY PO 08/20/16 09:00 09/19/16 08:59 08/21/16 08:43 2 MG Ferrous Sulfate (Feosol Tab) 325 mg DAILY PO 08/20/16 09:00 09/19/16 08:59 08/21/16 08:44 325 MG Polyethylene (Miralax Powder Packet) 17 gm QAM PO 08/20/16 09:00 09/19/16 08:59 08/21/16 08:43 17 GM Miscellaneous Information (Order Awaiting Action) 1 ea QS N/A 08/19/16 16:00 09/18/16 15:59 08/20/16 22:30 1 EA Pantoprazole Sodium 40 mg 40 mg QAM PO 08/20/16 09:00 09/19/16 08:59 08/21/16 08:45 40 MG Ceftaroline Fosamil/Sodium Chloride (Teflaro Inj/Nss 250ml) 256.6667 ml @ 250 mls/hr Q12H IV 08/19/16 18:00 09/02/16 17:59 08/21/16 05:51 250 MLS/HR Miscellaneous Information 1 ea UD PRN N/A 08/19/16 17:15 09/18/16 17:14 Objective Vital Signs Date Time Temp Pulse Resp B/P Pulse Ox O2 Delivery O2 Flow Rate FiO2 08/21/16 08:00 Room Air 08/21/16 07:36 Room Air 08/21/16 07:01 36.4 80 16 120/84 97 Room Air 08/21/16 04:00 Mask 2.0 08/21/16 03:28 36.5 79 20 120/85 97 Room Air 08/20/16 23:59 Mask 2.0 08/20/16 23:36 36.8 88 18 137/91 95 Room Air 08/20/16 20:08 Room Air 08/20/16 19:36 37.0 84 18 122/80 97 Room Air 08/20/16 16:59 36.9 82 16 120/80 97 Room Air 08/20/16 16:00 Room Air 08/20/16 12:04 36.8 82 16 98/66 95 Room Air 08/20/16 12:00 Room Air Physical Exam General Appearance: WD/WN, + mild distress (emotional) Eyes: normal inspection, sclerae normal ENT: hearing grossly normal Neck: supple, trachea midline Respiratory/Chest: no respiratory distress, no accessory muscle use Cardiovascular: + pertinent finding (regular rate) Extremities: + pertinent finding (Left AKA, right knee with dressing still in place. ) Neurologic/Psychiatric: alert, + depressed affect Skin: normal color, warm/dry, no rash Laboratory Results Item Value Date Time Blood Culture Received 08/21/16 0913 Blood Pending Blood Culture Received 08/21/16 0907 Blood Pending Blood Culture Received 08/20/16 0530 Blood Pending Blood Culture Received 08/20/16 0520 Blood Pending Urine Culture - Final Complete 08/19/16 1720 Urine,Catheterized Proteus Mirabilis Blood Culture - Preliminary Resulted 08/19/16 1420 Blood NO GROWTH TO DATE. Blood Culture - Preliminary Resulted 08/19/16 1414 Blood Staph Species Catheter Tip Culture - Final Complete 08/19/16 1300 Catheter Tip Perm. Catheter NO GROWTH Last 24 Hours Test 08/20/16 11:36 08/20/16 16:31 08/20/16 20:35 08/21/16 07:07 Bedside Glucose 120 mg/dl 154 mg/dl 284 mg/dl 143 mg/dl Test 08/21/16 09:07 Sodium Level 132 mmol/L Potassium Level 5.1 mmol/L Chloride Level 96 mmol/L Carbon Dioxide Level 20 mmol/L Anion Gap 16.0 mmol/L Blood Urea Nitrogen 99 mg/dl Creatinine 5.70 mg/dl Est Creatinine Clear Calc Drug Dose 12.4 ml/min Estimated GFR () 11.8 Estimated GFR (Non- 10.1 BUN/Creatinine Ratio 17.3 Random Glucose 251 mg/dl Calcium Level 8.3 mg/dl Assessment and Plan Patient with ESRD on HD with questionable infected perm cath and recurrent MRSA bacteremia. Initial blood cultures growing staph species in 1/2 bottles pending sensitivities. Multiple repeat blood cultures pending. Urine culture with Proteus. Will D/C IV Primaxin. Continue Ceftaroline pending repeat culture results. Patient likely will need TTE and possibly GAVI if cultures continue to grow MRSA. Patient anticipated to have temporary dialysis catheter placed tomorrow. We will continue to follow. PROVIDER ADDENDUM: Pt. reviewed with Ms. Tapia. Agree with above assessment.
--- NOTE | 2016-08-21 10:56 | Progress Note ---
Internal Med Progress Note Date of Service: Aug 21, 2016. Provider Documentation: SUBJECTIVE: Patient denies any new complaints. Emotional and crying as blood cx came back positive Does have wounds- RLE, Left buttock ulceration. No fever since admission, no chills. No chest pain, SOB, nausea, vomiting, abdominal pain, diarrhea OBJECTIVE: Vital Signs-as noted below Exam: General-AAOX3, Emotional Neck-Supple Lungs-AEBE decreased, no wheezing, rhonchi, rales Heart-S1, S2 normal; Right chest- dressing + s/p perm cath removal Abdomen-Soft, non tender, non distended, BS present Extremities-S/P Left AKA, Right Knee- Wound + dressing + Left buttock- Stage II ulceration Neuro-Grossly no focal deficits Lab data as noted below. ASSESSMENT & PLAN: FEVER MRSA BACTEREMIA HX RIGHT KNEE WOUND INFECTION (pseudomonas, proteus) Patient had fever spikes outpatient, Blood cx drawn on 08/12/16 at [facility] grew MRSA, was scheduled for removal of right perma cath on 08/19/16- removed, catheter tip for culture- negative for any growth. Was admitted to hospital for intermittent confusion post procedure, fever spikes with recent MRSA bactermia -Afebrile since low grad fever spike 37.6 C outpatient, no leucocytosis, Lactic acid WNL -IV Ceftaroline per ID . Was on IV Vancomycin outpatient with MRSA bacteremia noted on 08/12/16 -Follow up- Blood cx x (1/)- Staph +, Repeat Blood cx- pending, Urine cx- Proteus, Wound cx- not collected -ID on board, appreciate inputs PLAN: Will continue with IV Ceftaroline. TTE ordered today. UTI Proteus Has foleys catheter. Colonization ? -On IV ceftaroline -Urine c/s- proteus ESRD Nephrology consulted; discussed w/ Dr. Flores; appreciate input Last HD on 08/19/16. S/p permcath removal 08/19/16 -Patient has no dialysis access currently -On Fluid restriction, Renal diet -Plan is to put femoral catheter tomorrow and once blood cx negative-->tunneled line -Vascular surgery on board. HYPERKALEMIA Secondary to above -Mx as above RIGHT KNEE AND LEFT BUTTOCK ULCERATIONS (STAGE II) -S/p skin graft of right knee wound on 08/15/16 -Consulted wound care nurse and wound care physician CHRONIC SYSTOLIC CHF/ ISCHEMIC CARDIOMYOPATHY EF 15-20% -Currently euvolemic PRESUMED CAD Stable -Hold aspirin until OK by vascular surgery -Continue beta david, statin DM TYPE 2 -Continue Lantus -Insulin sliding scale coverage CHRONIC RESPIRATORY FAILURE -Continue home oxygen 3L PRN DVT PROPHYLAXIS SCD's FULL CODE Per preference on recent admission DISPOSITION Resides at [facility] Continue with tele monitoring Discussed with ID, Nephrology, Vascular surgery Vital Signs: Date Time Temp Pulse Resp B/P Pulse Ox O2 Delivery O2 Flow Rate FiO2 08/21/16 08:00 Room Air 08/21/16 07:36 Room Air 08/21/16 07:01 36.4 80 16 120/84 97 Room Air 08/21/16 04:00 Mask 2.0 08/21/16 03:28 36.5 79 20 120/85 97 Room Air 08/20/16 23:59 Mask 2.0 08/20/16 23:36 36.8 88 18 137/91 95 Room Air 08/20/16 20:08 Room Air 08/20/16 19:36 37.0 84 18 122/80 97 Room Air 08/20/16 16:59 36.9 82 16 120/80 97 Room Air 08/20/16 16:00 Room Air 08/20/16 12:04 36.8 82 16 98/66 95 Room Air 08/20/16 12:00 Room Air Lab Results: Results Past 24 Hours Test 08/20/16 11:36 08/20/16 16:31 08/20/16 20:35 08/21/16 07:07 Range/Units Bedside Glucose 120 154 284 143 70-99 mg/dl Test 08/21/16 09:07 Range/Units Sodium Level 132 136-145 mmol/L Potassium Level 5.1 3.5-5.1 mmol/L Chloride Level 96 98-107 mmol/L Carbon Dioxide Level 20 21-32 mmol/L Anion Gap 16.0 3-11 mmol/L Blood Urea Nitrogen 99 7-18 mg/dl Creatinine 5.70 0.60-1.40 mg/dl Est Creatinine Clear Calc Drug Dose 12.4 ml/min Estimated GFR () 11.8 Estimated GFR (Non- 10.1 BUN/Creatinine Ratio 17.3 10-20 Random Glucose 251 70-99 mg/dl Calcium Level 8.3 8.5-10.1 mg/dl Microbiology Results 08/21/16 Blood Culture, Received Pending 08/21/16 Blood Culture, Received Pending
[2016-08-21 11:01] VITALS: BP 136/85; PULSE 81; TEMP 36.6; O2SAT 96
[2016-08-21 15:30] VITALS: BP 119/77; PULSE 81; TEMP 37; O2SAT 94
[2016-08-21 19:04] VITALS: BP 111/76; PULSE 94; TEMP 36.8; O2SAT 97
[2016-08-21] MEDS: DOCUSATE SODIUM/SENNA 50/8.6MG TAB PO SCH (20:42)
[2016-08-21] MEDS: ATORVASTATIN 40 MG TAB PO SCH (20:42)
[2016-08-22] VITALS (29 sets, daily range): BP systolic 92–143; BP diastolic 57–93; PULSE 54–98; TEMP 36.6–37; O2SAT 94–100; Ht 152.4 cm; Wt 81.0 kg
[2016-08-22] MEDS: INSULIN ASPART 100 UNITS/ML 3 ML PEN SC SCH ×5 (00:22→21:19)
[2016-08-22] MEDS: OXYCODONE HCL 15 MG TABCR (OXYCONTIN) PO SCH ×3 (05:50→21:20)
[2016-08-22] MEDS: GABAPENTIN 100 MG CAP PO SCH ×3 (05:50→21:21)
[2016-08-22] MEDS: CEFTAROLINE FOSAMIL IV SCH ×2 (05:51→17:09)
[2016-08-22] MEDS: SODIUM CHLORIDE 0.9% IV SCH ×2 (05:51→17:09)
[2016-08-22 06:19] LABS: BUN/CREATININE RATIO 19.5 (10-20); CALCIUM 8.6 mg/dl (8.5-10.1); CREATININE 6.3 mg/dl (0.60-1.40); POTASSIUM 5.5 mmol/L (3.5-5.1)
[2016-08-22] MEDS ORDERED: NURSING VERBAL MED ORDER ONE (07:30)
[2016-08-22] MEDS ORDERED: PERFLUTREN LIPID MICROSPHERE (DEFINITY) IV PRN (07:30)
[2016-08-22] MEDS: LORAZEPAM 0.5 MG TAB PO SCH ×3 (08:09→20:03)
[2016-08-22] MEDS: CALCIUM ACETATE 667MG GELCAP PO SCH ×3 (08:11→17:08)
[2016-08-22] MEDS: FLUTICASONE/SALMETEROL 250/50 (ADVAIR) 14 PUFF/1 INHALER INH SCH ×2 (08:11→19:52)
[2016-08-22] MEDS: LORATADINE 10 MG TAB PO SCH (08:12)
[2016-08-22] MEDS: IPRATROPIUM BROMIDE/ALBUTEROL respimat INH INH SCH ×4 (08:12→19:52)
[2016-08-22] MEDS: PANTOprazole SOD 40 MG TAB PO SCH (08:12)
[2016-08-22] MEDS: FERROUS SULFATE 325 MG TAB PO SCH (08:13)
[2016-08-22] MEDS: DEXAMETHASONE 1 MG TAB PO SCH (08:13)
[2016-08-22] MEDS: LACTOBACILLUS ACIDOPHILUS (FLORANEX) TAB PO SCH ×3 (08:13→19:54)
[2016-08-22] MEDS: POLYETHYLENE (MIRALAX) 17 GM PACK PO SCH (08:14)
[2016-08-22] MEDS: METOPROLOL SUCC 25MG EXT REL TAB PO SCH ×2 (08:15→19:54)
[2016-08-22] MEDS: ASCORBIC ACID 500 MG TAB PO SCH (08:15)
[2016-08-22] MEDS: CHOLECALCIFEROL 1000 INTER.UNIT TAB PO SCH (08:16)
[2016-08-22] MEDS: INSULIN GLARGINE SOLOSTAR 100 UNITS/ML 3 ML PEN SC SCH ×2 (08:19→21:20)
--- NOTE | 2016-08-22 08:37 | ECHOCARDIOGRAM REPORT ---
*NOTICE TO RECEIVING LIBERTARIAN AGENCY This information is strictly Confidential and protected under [place] law. [place] law prohibits you from making any further disclosure of this information unless further disclosure is expressly permitted by the written consent of the person to whom it pertains or is authorized by law. A general authorization for the release of medical or other information is not sufficient for this purpose. Hospital accepts no responsibility if the information is made available to any other person, INCLUDING THE PATIENT. Interpretation Summary * Name: YOUNG HINKLE Study Date: 08/22/2016 06:42 AM BP: 128/77 mmHg * Patient Location: C.2T\S\S235\S\1 HR: 79 * : 1960 (M/d/yyyy) Gender: Male Height: 60 in * Age: 56 yrs Ethnicity: CA Weight: 173 lb * Ordering Physician: Olivia Ballard. * Referring Physician: Cody Bermudez * Performed By: Lety Mandel * * Reason For Study: BACTEREMIA- LOOK FOR VEGETATIONS * BSA: 1.8 m2 * The study was technically limited. * There is no evidence of a mass or vegetation. This does not rule out endocarditis. * Compared to prior study, changes are noted. * -- Conclusions -- * The left ventricle is moderately dilated. * Ejection Fraction = 15-20%. * There is severe global hypokinesis of the left ventricle. * The right ventricular systolic function is reduced as assessed by tricuspid annular plane systolic excursion (TAPSE) (TAPSE <1.6 cm). * There is mild mitral regurgitation. * There is mild tricuspid regurgitation. * Grade I diastolic dysfunction, (abnormal relaxation pattern). Procedure Details * A complete two-dimensional transthoracic echocardiogram was performed (2D, M-mode, Doppler and color flow Doppler). * The study was technically limited. * The study was technically difficult. * There were technical limitations due to patient'spoor positioning * A contrast injection of Definity was performed to improve assessment of LV function. * Contrast was injected into an intravenous site in the right arm. * One vial of Definity ultrasound contrast was diluted in normal saline to a total volume of 10 ml. A total of '3' ml of solution was administered during imaging. * Lot # [id number] of Definity utilized for procedure. * Expiration date 09/03. * The attending nurse who injected the contrast agent was RUBIO BEARD RN. Left Ventricle * The left ventricle is moderately dilated. * There is no thrombus. * There is normal left ventricular wall thickness. * Ejection Fraction = 15-20%. * There is severe global hypokinesis of the left ventricle. Right Ventricle * The right ventricle is not well visualized. * The right ventricular systolic function is reduced as assessed by tricuspid annular plane systolic excursion (TAPSE) (TAPSE <1.6 cm). Atria * The left atrium is severely dilated. * Right atrium not well visualized. Mitral Valve * The mitral valve is not well visualized. * There is no mitral valve stenosis. * There is mild mitral regurgitation. Tricuspid Valve * The tricuspid valve is not well visualized. * There is no tricuspid stenosis. * There is mild tricuspid regurgitation. Aortic Valve * The aortic valve is not well visualized. * No hemodynamically significant valvular aortic stenosis. * There is no significant aortic regurgitation. Pulmonic Valve * The pulmonary valve is not well seen, but the Doppler examination is normal without significant regurgitation or stenosis. Great Vessels * The aortic root is normal size. Pericardium/Pleural * There is no pericardial effusion. Left Ventricular Diastolic Function * Grade I diastolic dysfunction, (abnormal relaxation pattern). MMode 2D Measurements and Calculations IVSd 1.3 cm IVSs 1.7 cm LVIDd 6.5 cm LVIDs 5.9 cm LVPWd 1.1 cm LVPWs 1.6 cm IVS/LVPW 1.2 FS 9.2 % EDV(Teich) 215.2 ml ESV(Teich) 172.8 ml EF(Teich) 19.7 % EDV(cubed) 273.3 ml ESV(cubed) 204.8 ml EF(cubed) 25.1 % % IVS thick 24.3 % % LVPW thick 47.1 % LV mass(C)d 362.9 grams LV mass(C)dI 206.8 grams/m\S\2 LV mass(C)s 469.6 grams LV mass(C)sI 267.5 grams/m\S\2 CO(Teich) 3.4 l/min CI(Teich) 1.9 l/min/m\S\2 SV(Teich) 42.4 ml SI(Teich) 24.1 ml/m\S\2 CO(cubed) 5.5 l/min CI(cubed) 3.1 l/min/m\S\2 SV(cubed) 68.5 ml SI(cubed) 39.0 ml/m\S\2 asc Aorta Diam 3.2 cm LVOT diam 1.8 cm LVOT area 2.6 cm\S\2 LVAd ap4 53.9 cm\S\2 LVLd ap4 10.3 cm EDV(MOD-sp4) 227.0 ml LVAs ap4 47.1 cm\S\2 LVLs ap4 9.9 cm ESV(MOD-sp4) 185.0 ml EF(MOD-sp4) 18.5 % LVAd ap2 46.2 cm\S\2 LVLd ap2 10.2 cm EDV(MOD-sp2) 171.0 ml LVAs ap2 41.4 cm\S\2 LVLs ap2 9.9 cm ESV(MOD-sp2) 140.0 ml EF(MOD-sp2) 18.1 % CO(MOD-sp4) 3.4 l/min CI(MOD-sp4) 1.9 l/min/m\S\2 SV(MOD-sp4) 42.0 ml SI(MOD-sp4) 23.9 ml/m\S\2 CO(MOD-sp2) 2.5 l/min CI(MOD-sp2) 1.4 l/min/m\S\2 SV(MOD-sp2) 31.0 ml SI(MOD-sp2) 17.7 ml/m\S\2 Doppler Measurements and Calculations MV E max kathryn 40.3 cm/sec MV A max kathryn 76.7 cm/sec MV E/A 0.53 MV dec time 0.19 sec Ao V2 max 101.4 cm/sec Ao max PG 4.1 mmHg Ao max PG (full) 3.6 mmHg VALERIE(V,A) 0.92 cm\S\2 VALERIE(V,D) 0.92 cm\S\2 LV V1 max PG 0.53 mmHg LV V1 max 36.3 cm/sec MR max kathryn 319.3 cm/sec MR max PG 40.8 mmHg PA V2 max 66.9 cm/sec PA max PG 1.8 mmHg
--- NOTE | 2016-08-22 10:15 | Infectious Disease Progress Nt ---
Progress Note Date of Service Aug 22, 2016. Subjective Pt evaluation today including: conversation w/ patient, physical exam, chart review, lab review, review of studies, review of inpatient medication list Glucose up to >600 last night. Trended down this morning. Potassium elevated to 5.5. Patient anticipated to have temporary catheter placed for dialysis today. Initial blood cultures growing MRSA. Repeat cultures showing no growth to date. Second repeats pending. Patient continues to have some on and off pain of the right knee. He is also anticipating Dr. Macario to come take a look at his knee today. Echo showed severe global hypokinesis of the left ventricle along with mild mitral and tricuspid regurgitation. No vegetation noted. All Other Systems: Reviewed and Negative Medications Current Inpatient Medications Medications (Trade) Dose Ordered Sig/Edin Route Start Time Stop Time Status Last Admin Dose Admin Acetaminophen (Tylenol Tab) 650 mg Q4H PRN PO 08/19/16 14:00 09/18/16 13:59 08/19/16 16:41 650 MG Ondansetron HCl (Zofran Inj) 4 mg Q6H PRN IV 08/19/16 14:00 09/18/16 13:59 Insulin Aspart (novoLOG ASPART) SLIDING SCALE If C... ACHS SC 08/19/16 16:15 09/18/16 16:14 08/22/16 00:22 1 UNITS Glucose (Glucose 40% Gel) 15-30 GRAMS 15 GRAMS... UD PRN PO 08/19/16 14:15 09/18/16 14:14 Glucose (Glucose Chew Tab) 4-8 Tablets 4 Tabl... UD PRN PO 08/19/16 14:15 09/18/16 14:14 Dextrose (Dextrose 50% 50ML Syringe) 25-50ML OF 50% DW IV FOR... UD PRN IV 08/19/16 14:15 09/18/16 14:14 Glucagon (Glucagon Inj) 1 mg UD PRN SQ 08/19/16 14:15 09/18/16 14:14 Ascorbic Acid (Vitamin C Tab) 500 mg DAILY PO 08/20/16 09:00 09/19/16 08:59 08/22/16 08:15 500 MG Atorvastatin Calcium (Lipitor Tab) 40 mg HS PO 08/19/16 21:00 09/18/16 20:59 08/21/16 20:42 40 MG Calcium Acetate (Phoslo Cap) 1,334 mg TIDM PO 08/19/16 16:45 09/18/16 17:59 08/22/16 08:11 1,334 MG Salmeterol Xinafoate/ Fluticasone (Advair Diskus 250/50 Inh) 1 puff BID INH 08/19/16 21:00 09/18/16 20:59 08/22/16 08:11 1 PUFF Gabapentin (Neurontin Cap) 200 mg Q8 PO 08/19/16 22:00 09/18/16 21:59 08/22/16 05:50 200 MG Insulin Glargine (Lantus Solostar Pen) 5 unit BID SC 08/19/16 21:00 09/18/16 20:59 08/22/16 08:19 5 UNIT Albuterol/ Ipratropium (Combivent Respimat Inh) 1 puffs QID INH 08/19/16 17:00 09/18/16 16:59 08/22/16 08:12 1 PUFFS Lactobacillus Acidophilus (Floranex Tab) 1 tab TID PO 08/19/16 21:00 09/18/16 20:59 08/22/16 08:13 1 TAB Loratadine (Claritin Tab) 10 mg DAILY PO 08/20/16 09:00 09/19/16 08:59 08/22/16 08:12 10 MG Lorazepam (Ativan Tab) 0.5 mg TID PO 08/19/16 21:00 09/18/16 20:59 08/22/16 08:09 0.5 MG Metoprolol Succinate (Toprol Xl Tab) 25 mg BID PO 08/19/16 21:00 09/18/16 20:59 08/21/16 20:43 25 MG Oxycodone HCl (Oxycontin Tab) 30 mg Q8 PO 08/19/16 22:00 09/02/16 21:59 08/22/16 05:50 30 MG Oxycodone HCl (Roxicodone Immediate Rel Tab) 10 mg DAILY PRN PO 08/19/16 15:00 09/02/16 14:59 08/22/16 08:10 10 MG Senna/Docusate Sodium (Senokot S Tab) 1 tab HS PO 08/19/16 21:00 09/18/16 20:59 08/21/16 20:42 1 TAB Cholecalciferol (Vitamin D Tab) 5,000 inter.unit DAILY PO 08/20/16 09:00 09/19/16 08:59 08/22/16 08:16 5,000 INTER.UNIT Dexamethasone (Decadron Tab) 2 mg DAILY PO 08/20/16 09:00 09/19/16 08:59 08/22/16 08:13 2 MG Ferrous Sulfate (Feosol Tab) 325 mg DAILY PO 08/20/16 09:00 09/19/16 08:59 08/22/16 08:13 325 MG Polyethylene (Miralax Powder Packet) 17 gm QAM PO 08/20/16 09:00 09/19/16 08:59 08/21/16 08:43 17 GM Miscellaneous Information (Order Awaiting Action) 1 ea QS N/A 08/19/16 16:00 09/18/16 15:59 08/20/16 22:30 1 EA Pantoprazole Sodium 40 mg 40 mg QAM PO 08/20/16 09:00 09/19/16 08:59 08/22/16 08:12 40 MG Ceftaroline Fosamil/Sodium Chloride (Teflaro Inj/Nss 250ml) 256.6667 ml @ 250 mls/hr Q12H IV 08/19/16 18:00 09/02/16 17:59 08/22/16 05:51 250 MLS/HR Miscellaneous Information 1 ea UD PRN N/A 08/19/16 17:15 09/18/16 17:14 Perflutren Lipid Microsphere (Definity) 2 ml PRN PRN IV 08/22/16 07:30 09/21/16 07:29 08/22/16 07:23 2 ML Objective Vital Signs Date Time Temp Pulse Resp B/P Pulse Ox O2 Delivery O2 Flow Rate FiO2 08/22/16 07:45 36.8 79 18 118/83 98 Room Air 08/22/16 04:00 Room Air 2.0 08/22/16 03:30 36.9 79 20 128/77 97 Room Air 08/22/16 00:27 Room Air 2.0 08/22/16 00:10 36.8 85 16 117/87 95 08/21/16 20:00 Room Air 08/21/16 19:04 36.8 94 20 111/76 97 Room Air 08/21/16 16:00 Room Air 08/21/16 15:30 37.0 81 19 119/77 94 Room Air 08/21/16 12:00 Room Air 08/21/16 11:01 36.6 81 20 136/85 96 Room Air Physical Exam General Appearance: no apparent distress Eyes: normal inspection, sclerae normal ENT: hearing grossly normal Neck: supple, trachea midline Respiratory/Chest: no respiratory distress, no accessory muscle use Cardiovascular: + pertinent finding (regalar rate) Extremities: + pertinent finding (left AKA, right knee with dressing in place) Neurologic/Psychiatric: alert, normal mood/affect Skin: normal color, warm/dry, no rash Laboratory Results RUN DATE: 08/22/16 [facility] PAGE 1 RUN TIME: 743 Specimen Inquiry PATIENT: YOUNG HINKLE LOC: [facility] U # : [id number] AGE/SX: 56/M ROOM: S235 REG : 08/19/[address]: Pooja. Ballard S : 1960 BED: 1 DIS : STATUS: ADM IN TLOC: SPEC #: [id number] CLAUDIA: 08/19/16 STATUS: RENETTA REQ #: [id number] RECD: 08/19/[address] [facility] [address]: Melody Rivas PA-C SOURCE: BLOOD ENTR: 08/19/16-1350 [facility] [address]: Eugene Willoughby M.D. [facility]: Fausto Kohli D.O. Simoni, Cody Richmond M.D. ORDERED: BLOOD CULTURE Procedure Result Verified Site BLD CULT Final 08/22/16-2149 Organism 1 STAPHYLOCOCCUS AUREUS SENS SENSITIVITY TO FOLLOW SENSITIVITY RESULT INDICATES A METHICILLIN RESISTANT STAPH. AUREUS. PHONED TO MILEY WESTBROOK ON 08/22/16 AT 0705 BY Aaron Mcgee. Results were verbalized back to YELITZA. RESULTS WERE ALSO CALLED TO [facility] INFECTION CONTROL ANSWERING MACHINE ON 08/22/16 BY YELITZA. Phoned Positive Blood Culture Gram Stain Report to SONDRA ALFRED on 08/20/16 At 8163 By JUSTIN. Results were verbalized back to JUSTIN. 1. STAPHYLOCOCCUS AUREUS Target Route Dose RX AB Cost M.I.C. IQ ------ ----- ------ -- ------ -------- - ------ TRIMET/SULFA S <=0.5/ 9.5 * OXACILLIN R * >2 VANCOMYCIN S 2 ERYTHROMYCIN R >4 TETRACYCLINE S <=4 CLINDAMYCIN R >4 DAPTOMYCIN S 1 RIFAMPIN S <=1 S = SENSITIVE I = INTERMEDIATE R = RESISTANT Item Value Date Time Blood Culture Received 08/21/16 0913 Blood Pending Blood Culture Received 08/21/16 0907 Blood Pending Blood Culture - Preliminary Resulted 08/20/16 0530 Blood NO GROWTH TO DATE. Blood Culture - Preliminary Resulted 08/20/16 0520 Blood NO GROWTH TO DATE. Urine Culture - Final Complete 08/19/16 1720 Urine,Catheterized Proteus Mirabilis Blood Culture - Preliminary Resulted 08/19/16 1420 Blood NO GROWTH TO DATE. Blood Culture - Final Complete 08/19/16 1414 Blood Staphylococcus Aureus Catheter Tip Culture - Final Complete 08/19/16 1300 Catheter Tip Perm. Catheter NO GROWTH Last 24 Hours Test 08/21/16 11:26 08/21/16 16:04 08/21/16 20:20 08/21/16 20:21 Bedside Glucose 198 mg/dl 220 mg/dl > 600 mg/dl 387 mg/dl Test 08/21/16 23:39 08/22/16 05:08 08/22/16 06:56 Bedside Glucose 238 mg/dl 107 mg/dl Sodium Level 134 mmol/L Potassium Level 5.5 mmol/L Chloride Level 99 mmol/L Carbon Dioxide Level 18 mmol/L Anion Gap 17.0 mmol/L Blood Urea Nitrogen 123 mg/dl Creatinine 6.30 mg/dl Est Creatinine Clear Calc Drug Dose 11.2 ml/min Estimated GFR () 10.4 Estimated GFR (Non- 9.0 BUN/Creatinine Ratio 19.5 Random Glucose 136 mg/dl Calcium Level 8.6 mg/dl Assessment and Plan Patient with ESRD on HD with questionable infected perm cath and recurrent MRSA bacteremia. Initial blood cultures growing MRSA in 1/2 bottles. Repeat blood cultures currently showing no growth. Urine culture with Proteus. Continue Ceftaroline. After discussion with Dr. Monk, will also restart IV Primaxin for now while in house due to previously infected right knee wound and delayed healing. Echo did not show vegetations. Still prefer that this patient have a temporary catheter placed until cultures have time to grow another 1-2 days despite repeats currently showing no growth. Patient anticipating placement this afternoon. We will continue to follow. PROVIDER ADDENDUM: Pt. reviewed with Ms. Tapia. Agree with above assessment.
--- NOTE | 2016-08-22 10:16 | Progress Note ---
Progress Note Date of Service Aug 22, 2016. Progress Note Patient for temporary dialysis catheter today. I had placed him NPO after midnight but somehow the order was cancelled by medical service. Will still have to place the catheter today but can not use sedation due to eating a little at breakfast. I have discussed the risks options and benefits of the procedure with the patient. The patient understands the risks options and benefits and agrees to the procedure. I have examined the patient, reviewed the History & Physical and in the interval since the performance of the History & Physical I have noted the following changes of clinical significance: No changes noted
--- NOTE | 2016-08-22 10:40 | Progress Note ---
Internal Med Progress Note Date of Service: Aug 22, 2016. Provider Documentation: SUBJECTIVE: Patient denies any new complaints. Does have wounds- RLE, Left buttock ulceration. No fever since admission, no chills. No chest pain, SOB, nausea, vomiting, abdominal pain, diarrhea OBJECTIVE: Vital Signs-as noted below Exam: General-AAOX3, Emotional Neck-Supple Lungs-AEBE decreased, no wheezing, rhonchi, rales Heart-S1, S2 normal; Right chest- dressing + s/p perm cath removal Abdomen-Soft, non tender, non distended, BS present Extremities-S/P Left AKA, Right Knee- Wound + dressing + Left buttock- Stage II ulceration Neuro-Grossly no focal deficits Lab data as noted below. ASSESSMENT & PLAN: FEVER - Resolved MRSA BACTEREMIA HX RIGHT KNEE WOUND INFECTION (pseudomonas, proteus) : Patient had fever spikes outpatient, Blood cx drawn on 08/12/16 at [facility] grew MRSA, was scheduled for removal of right perma cath on 08/19/16- removed, catheter tip for culture- negative for any growth. Was admitted to hospital for intermittent confusion post procedure, fever spikes with recent MRSA bactermia -Afebrile since low grad fever spike 37.6 C outpatient, no leucocytosis, Lactic acid WNL -IV Ceftaroline per ID . Started on Imipenem today. Was on IV Vancomycin outpatient with MRSA bacteremia noted on 08/12/16 -Follow up- Blood cx x (1/2)- MRSA +, Repeat Blood cx on 08/20/16- Negative, Repeat Blood cx- 08/21/16- Pending; Urine cx- Proteus, Wound cx- not collected. Echo ordered today -ID on board, appreciate inputs UTI Proteus Has foleys catheter. Colonization ? -On IV ceftaroline -Urine c/s- proteus ESRD Nephrology consulted; discussed w/ Dr. Flores; appreciate input Last HD on 08/19/16. S/p permcath removal 08/19/16 -Patient has no dialysis access currently -On Fluid restriction, Renal diet -Plan is to put femoral catheter today and once blood cx negative --> Tunneled line -Vascular surgery on board. HYPERKALEMIA Secondary to above -Mx as above RIGHT KNEE AND LEFT BUTTOCK ULCERATIONS (STAGE II) -S/p skin graft of right knee wound on 08/15/16 -Consulted wound care nurse and wound care physician CHRONIC SYSTOLIC CHF/ ISCHEMIC CARDIOMYOPATHY EF 15-20% -Currently euvolemic PRESUMED CAD Stable -Hold aspirin until OK by vascular surgery -Continue beta david, statin DM TYPE 2 -Continue Lantus -Insulin sliding scale coverage CHRONIC RESPIRATORY FAILURE -Continue home oxygen 3L PRN DVT PROPHYLAXIS SCD's FULL CODE Per preference on recent admission DISPOSITION Resides at [facility] Continue with tele monitoring Discussed with ID, Nephrology, Vascular surgery Vital Signs: Date Time Temp Pulse Resp B/P Pulse Ox O2 Delivery O2 Flow Rate FiO2 08/22/16 08:00 98 Room Air 08/22/16 07:45 36.8 79 18 118/83 98 Room Air 08/22/16 04:00 Room Air 2.0 08/22/16 03:30 36.9 79 20 128/77 97 Room Air 08/22/16 00:27 Room Air 2.0 08/22/16 00:10 36.8 85 16 117/87 95 08/21/16 20:00 Room Air 08/21/16 19:04 36.8 94 20 111/76 97 Room Air 08/21/16 16:00 Room Air 08/21/16 15:30 37.0 81 19 119/77 94 Room Air 08/21/16 12:00 Room Air 08/21/16 11:01 36.6 81 20 136/85 96 Room Air Lab Results: Results Past 24 Hours Test 08/21/16 11:26 08/21/16 16:04 08/21/16 20:20 08/21/16 20:21 Range/Units Bedside Glucose 198 220 > 600 387 70-99 mg/dl Test 08/21/16 23:39 08/22/16 05:08 08/22/16 06:56 Range/Units Bedside Glucose 238 107 70-99 mg/dl Sodium Level 134 136-145 mmol/L Potassium Level 5.5 3.5-5.1 mmol/L Chloride Level 99 98-107 mmol/L Carbon Dioxide Level 18 21-32 mmol/L Anion Gap 17.0 3-11 mmol/L Blood Urea Nitrogen 123 7-18 mg/dl Creatinine 6.30 0.60-1.40 mg/dl Est Creatinine Clear Calc Drug Dose 11.2 ml/min Estimated GFR () 10.4 Estimated GFR (Non- 9.0 BUN/Creatinine Ratio 19.5 10-20 Random Glucose 136 70-99 mg/dl Calcium Level 8.6 8.5-10.1 mg/dl
[2016-08-22] MEDS: IMIPENEM/CILASTATIN IV 500 MG in DEXTROSE 5% 100ML 100 ML IV SCH ×2 (11:14→19:46)
[2016-08-22] MEDS ORDERED: IMIPENEM/CILASTATIN CONSULT ACTIVE PRN (11:15)
[2016-08-22] MEDS ORDERED: HEPARIN SOD (PORCINE) 5000 UNIT/ML 1 ML VIAL ONE (11:39)
[2016-08-22] MEDS ORDERED: FENTANYL CITRATE INJ 50 MCG/1 ML 2 ML VIAL ONE (11:39)
--- NOTE | 2016-08-22 12:54 | [facility] Post Operative Brief Note ---
Immediate Operative Summary Operative Date Aug 22, 2016. Pre-Operative Diagnosis End Stage Renal Disease Post-Operative Diagnosis Same Procedure(s) Performed Insertion of Right Femoral Vein Temporary Dialysis Catheter, Ultrasound Localization of Right Femoral Vein, Fluoroscopy for Positioning. Surgeon Dr. Bermudez Seed Cleaner Operator Surgeon(s) Dr. Brand Estimated Blood Loss 10 Findings tip in distal IVC Specimens None Anesthesia Local Complication(s) None Disposition
[2016-08-22] MEDS ORDERED: HEPARIN SOD (PORCINE) 5000 UNIT/ML 1 ML VIAL SQ ONE (12:55)
[2016-08-22] MEDS ORDERED: LIDOCAINE HCL 1% 20 ML VIAL SQ ONE (12:55)
--- NOTE | 2016-08-22 14:47 | Nephrology Progress Note ---
Nephrology Progress Note Date of Service: Aug 22, 2016. Subjective 56 yo male with esrd with positive blood cultures and had tunneled line removed. had temporary line placed this morning. waiting for dialysis this afternoon. pt still with pain of the right knee-chronic. Objective Date Time Temp Pulse Resp B/P Pulse Ox O2 Delivery O2 Flow Rate FiO2 08/22/16 12:00 Room Air 08/22/16 11:40 36.6 81 16 112/81 99 Room Air 08/22/16 08:00 98 Room Air 08/22/16 07:45 36.8 79 18 118/83 98 Room Air 08/22/16 04:00 Room Air 2.0 08/22/16 03:30 36.9 79 20 128/77 97 Room Air 08/22/16 00:27 Room Air 2.0 08/22/16 00:10 36.8 85 16 117/87 95 08/21/16 20:00 Room Air 08/21/16 19:04 36.8 94 20 111/76 97 Room Air 08/21/16 16:00 Room Air 08/21/16 15:30 37.0 81 19 119/77 94 Room Air Physical Exam: General-aaox3 Eyes-no scleral icterus ENT-mmm Neck-supple Lungs-clear Heart-regular Abdomen-bs+ s/nt/nd Extremities-+1 edema, chronic right knee infection, left aka Neuro-nonfocal -chronic blair Current Inpatient Medications Medications (Trade) Dose Ordered Sig/Edin Route Start Time Stop Time Status Last Admin Dose Admin Acetaminophen (Tylenol Tab) 650 mg Q4H PRN PO 08/19/16 14:00 09/18/16 13:59 08/19/16 16:41 650 MG Ondansetron HCl (Zofran Inj) 4 mg Q6H PRN IV 08/19/16 14:00 09/18/16 13:59 Insulin Aspart (novoLOG ASPART) SLIDING SCALE If C... ACHS SC 08/19/16 16:15 09/18/16 16:14 08/22/16 11:00 8 UNITS Glucose (Glucose 40% Gel) 15-30 GRAMS 15 GRAMS... UD PRN PO 08/19/16 14:15 09/18/16 14:14 Glucose (Glucose Chew Tab) 4-8 Tablets 4 Tabl... UD PRN PO 08/19/16 14:15 09/18/16 14:14 Dextrose (Dextrose 50% 50ML Syringe) 25-50ML OF 50% DW IV FOR... UD PRN IV 08/19/16 14:15 09/18/16 14:14 Glucagon (Glucagon Inj) 1 mg UD PRN SQ 08/19/16 14:15 09/18/16 14:14 Ascorbic Acid (Vitamin C Tab) 500 mg DAILY PO 08/20/16 09:00 09/19/16 08:59 08/22/16 08:15 500 MG Atorvastatin Calcium (Lipitor Tab) 40 mg HS PO 08/19/16 21:00 09/18/16 20:59 08/21/16 20:42 40 MG Calcium Acetate (Phoslo Cap) 1,334 mg TIDM PO 08/19/16 16:45 09/18/16 17:59 08/22/16 08:11 1,334 MG Salmeterol Xinafoate/ Fluticasone (Advair Diskus 250/50 Inh) 1 puff BID INH 08/19/16 21:00 09/18/16 20:59 08/22/16 08:11 1 PUFF Gabapentin (Neurontin Cap) 200 mg Q8 PO 08/19/16 22:00 09/18/16 21:59 08/22/16 14:21 200 MG Insulin Glargine (Lantus Solostar Pen) 5 unit BID SC 08/19/16 21:00 09/18/16 20:59 08/22/16 08:19 5 UNIT Albuterol/ Ipratropium (Combivent Respimat Inh) 1 puffs QID INH 08/19/16 17:00 09/18/16 16:59 08/22/16 14:22 1 PUFFS Lactobacillus Acidophilus (Floranex Tab) 1 tab TID PO 08/19/16 21:00 09/18/16 20:59 08/22/16 14:20 1 TAB Loratadine (Claritin Tab) 10 mg DAILY PO 08/20/16 09:00 09/19/16 08:59 08/22/16 08:12 10 MG Lorazepam (Ativan Tab) 0.5 mg TID PO 08/19/16 21:00 09/18/16 20:59 08/22/16 14:19 0.5 MG Metoprolol Succinate (Toprol Xl Tab) 25 mg BID PO 08/19/16 21:00 09/18/16 20:59 08/21/16 20:43 25 MG Oxycodone HCl (Oxycontin Tab) 30 mg Q8 PO 08/19/16 22:00 09/02/16 21:59 08/22/16 14:19 30 MG Oxycodone HCl (Roxicodone Immediate Rel Tab) 10 mg DAILY PRN PO 08/19/16 15:00 09/02/16 14:59 08/22/16 08:10 10 MG Senna/Docusate Sodium (Senokot S Tab) 1 tab HS PO 08/19/16 21:00 09/18/16 20:59 08/21/16 20:42 1 TAB Cholecalciferol (Vitamin D Tab) 5,000 inter.unit DAILY PO 08/20/16 09:00 09/19/16 08:59 08/22/16 08:16 5,000 INTER.UNIT Dexamethasone (Decadron Tab) 2 mg DAILY PO 08/20/16 09:00 09/19/16 08:59 08/22/16 08:13 2 MG Ferrous Sulfate (Feosol Tab) 325 mg DAILY PO 08/20/16 09:00 09/19/16 08:59 08/22/16 08:13 325 MG Polyethylene (Miralax Powder Packet) 17 gm QAM PO 08/20/16 09:00 09/19/16 08:59 08/21/16 08:43 17 GM Miscellaneous Information (Order Awaiting Action) 1 ea QS N/A 08/19/16 16:00 09/18/16 15:59 08/20/16 22:30 1 EA Pantoprazole Sodium 40 mg 40 mg QAM PO 08/20/16 09:00 09/19/16 08:59 08/22/16 08:12 40 MG Ceftaroline Fosamil/Sodium Chloride (Teflaro Inj/Nss 250ml) 256.6667 ml @ 250 mls/hr Q12H IV 08/19/16 18:00 09/02/16 17:59 08/22/16 05:51 250 MLS/HR Miscellaneous Information 1 ea UD PRN N/A 08/19/16 17:15 09/18/16 17:14 Perflutren Lipid Microsphere 2 ml 2 ml PRN PRN IV 08/22/16 07:30 09/21/16 07:29 08/22/16 07:23 2 ML Imipenem/ Cilastatin Sodium/ Dextrose (Primaxin Iv/D5 100ml) 110 ml @ 100 mls/hr Q12@0600,1800 IV 08/22/16 11:00 09/01/16 10:59 08/22/16 11:14 100 MLS/HR Imipenem/ Cilastatin Sodium (Consult) 1 ea UD PRN N/A 08/22/16 11:15 09/21/16 11:14 Last 24 Hours Test 08/21/16 16:04 08/21/16 20:20 08/21/16 20:21 08/21/16 23:39 Bedside Glucose 220 mg/dl > 600 mg/dl 387 mg/dl 238 mg/dl Test 08/22/16 05:08 08/22/16 06:56 08/22/16 11:11 Sodium Level 134 mmol/L Potassium Level 5.5 mmol/L Chloride Level 99 mmol/L Carbon Dioxide Level 18 mmol/L Anion Gap 17.0 mmol/L Blood Urea Nitrogen 123 mg/dl Creatinine 6.30 mg/dl Est Creatinine Clear Calc Drug Dose 11.2 ml/min Estimated GFR () 10.4 Estimated GFR (Non- 9.0 BUN/Creatinine Ratio 19.5 Random Glucose 136 mg/dl Calcium Level 8.6 mg/dl Bedside Glucose 107 mg/dl 176 mg/dl Assessment & Plan ESRD-for dialysis today on a 2k bath with about 2 liters uf as blood pressure tolerates. will dialysis again on friday and maintain a t-h-s schedule while inhouse. blood cultures from 08/19-one of two positive. urine culture positive for proteus. repeat cultures from the and are negative so far. tentatively plan for tunneled line on friday if repeat cultures remain negative if ok with ID. anemia of renal failure-hg levels are stable in the 12s. no role for procrit.
[2016-08-22] MEDS: DOCUSATE SODIUM/SENNA 50/8.6MG TAB PO SCH (19:54)
[2016-08-22] MEDS: ATORVASTATIN 40 MG TAB PO SCH (19:54)
[2016-08-23] VITALS (7 sets, daily range): BP systolic 117–133; BP diastolic 82–89; PULSE 79–87; TEMP 36.8–37; O2SAT 96–100
[2016-08-23] MEDS: GABAPENTIN 100 MG CAP PO SCH ×3 (06:11→20:44)
[2016-08-23] MEDS: OXYCODONE HCL 15 MG TABCR (OXYCONTIN) PO SCH ×3 (06:11→21:04)
[2016-08-23] MEDS: SODIUM CHLORIDE 0.9% IV SCH ×2 (06:20→17:44)
[2016-08-23] MEDS: CEFTAROLINE FOSAMIL IV SCH ×2 (06:20→17:44)
[2016-08-23 06:31] LABS: HEMATOCRIT 32.3 % (42-52); MEAN CELL VOLUME 89.2 fL (80-100); MEAN CORPUSCULAR HEMOGLOBIN 29.6 pg (25-34); MEAN CORPUSCULAR HGB CONC 33.1 g/dl (32-36); MEAN PLATELET VOLUME 9.3 fL (7.4-10.4); PLATELET COUNT 174 K/uL (130-400); RED BLOOD COUNT 3.62 M/uL (4.7-6.1); WHITE BLOOD COUNT 6.86 K/uL (4.8-10.8)
[2016-08-23 07:30] LABS: BUN/CREATININE RATIO 18.2 (10-20); CALCIUM 8.1 mg/dl (8.5-10.1); CREATININE 4.8 mg/dl (0.60-1.40); POTASSIUM 4.6 mmol/L (3.5-5.1)
[2016-08-23] MEDS: ASCORBIC ACID 500 MG TAB PO SCH (08:11)
[2016-08-23] MEDS: METOPROLOL SUCC 25MG EXT REL TAB PO SCH ×2 (08:11→20:45)
[2016-08-23] MEDS: CHOLECALCIFEROL 1000 INTER.UNIT TAB PO SCH (08:12)
[2016-08-23] MEDS: PANTOprazole SOD 40 MG TAB PO SCH (08:12)
[2016-08-23] MEDS: DEXAMETHASONE 1 MG TAB PO SCH (08:13)
[2016-08-23] MEDS: LORATADINE 10 MG TAB PO SCH (08:13)
[2016-08-23] MEDS: CALCIUM ACETATE 667MG GELCAP PO SCH ×3 (08:13→17:43)
[2016-08-23] MEDS: LACTOBACILLUS ACIDOPHILUS (FLORANEX) TAB PO SCH ×3 (08:13→20:47)
[2016-08-23] MEDS: POLYETHYLENE (MIRALAX) 17 GM PACK PO SCH (08:13)
[2016-08-23] MEDS: FERROUS SULFATE 325 MG TAB PO SCH (08:13)
[2016-08-23] MEDS: IPRATROPIUM BROMIDE/ALBUTEROL respimat INH INH SCH ×4 (08:14→20:43)
[2016-08-23] MEDS: FLUTICASONE/SALMETEROL 250/50 (ADVAIR) 14 PUFF/1 INHALER INH SCH ×2 (08:14→20:43)
[2016-08-23] MEDS: INSULIN ASPART 100 UNITS/ML 3 ML PEN SC SCH ×4 (08:24→22:52)
[2016-08-23] MEDS: INSULIN GLARGINE SOLOSTAR 100 UNITS/ML 3 ML PEN SC SCH ×2 (08:26→20:46)
[2016-08-23] MEDS: IMIPENEM/CILASTATIN IV 500 MG in DEXTROSE 5% 100ML 100 ML IV SCH ×2 (08:27→21:00)
[2016-08-23] MEDS: LORAZEPAM 0.5 MG TAB PO SCH ×3 (08:27→20:43)
--- NOTE | 2016-08-23 11:53 | Progress Note ---
Internal Med Progress Note Date of Service: Aug 23, 2016. Provider Documentation: SUBJECTIVE: Patient denies any new complaints. Does have wounds- RLE, Left buttock ulceration. No fever since admission, no chills. No chest pain, SOB, nausea, vomiting, abdominal pain, diarrhea OBJECTIVE: Vital Signs-as noted below Exam: General-AAOX3, Emotional Neck-Supple Lungs-AEBE decreased, no wheezing, rhonchi, rales Heart-S1, S2 normal; Right chest- dressing + s/p perm cath removal Abdomen-Soft, non tender, non distended, BS present Extremities-S/P Left AKA, Right Knee- Wound + dressing + Left buttock- Stage II ulceration; Femoral dialysis catheter + Lab data as noted below. ASSESSMENT & PLAN: FEVER - Resolved MRSA BACTEREMIA HX RIGHT KNEE WOUND INFECTION (pseudomonas, proteus) : Patient had fever spikes outpatient, Blood cx drawn on 08/12/16 at [facility] grew MRSA, was scheduled for removal of right perma cath on 08/19/16- removed, catheter tip for culture- negative for any growth. Was admitted to hospital for intermittent confusion post perm cath removal, fever spikes with recent MRSA bactermia -Afebrile since low grad fever spike 37.6 C outpatient, no leucocytosis, Lactic acid WNL -IV Ceftaroline per ID . Started on Imipenem on 08/22/16. Was on IV Vancomycin outpatient with MRSA bacteremia noted on 08/12/16 -Follow up- Blood cx x (1/2)- MRSA +, Repeat Blood cx on 08/20/16- Negative, Repeat Blood cx- 08/21/16 x 2- Negative; Urine cx- Proteus, Wound cx- not collected. Echo - EF 15-20%, Gd I diastolic dysfunction , Severe global hypokinesis, dilated atrium. -ID on board, appreciate inputs UTI Proteus Has foleys catheter. Colonization ? -On IV ceftaroline -Urine c/s- proteus ESRD Nephrology consulted; discussed w/ Dr. Flores; appreciate input Last HD on 08/19/16. S/p permcath removal 08/19/16 -Femoral dialysis catheter placed on 08/22/16 and dialysis done. -On Fluid restriction, Renal diet -Plan is to place tunneled line on Friday if blood cultures remain negative -Vascular surgery on board. HYPERKALEMIA- Resolved Secondary to above -Mx as above RIGHT KNEE AND LEFT BUTTOCK ULCERATIONS (STAGE II) -S/p skin graft of right knee wound on 08/15/16 -Consulted wound care nurse and wound care physician CHRONIC SYSTOLIC CHF/ ISCHEMIC CARDIOMYOPATHY EF 15-20% -Currently euvolemic -Updated Echo as above- EF 15-20% PRESUMED CAD Stable -Hold aspirin until OK by vascular surgery -Continue beta david, statin DM TYPE 2 -Continue Lantus -Insulin sliding scale coverage CHRONIC RESPIRATORY FAILURE -Continue home oxygen 3L PRN DVT PROPHYLAXIS SCD's; re: need for procedures, tunneled line to be placed on friday FULL CODE Per preference on recent admission DISPOSITION Resides at [facility] For tunneled line on Friday Okay to transfer [facility] Vital Signs: Date Time Temp Pulse Resp B/P Pulse Ox O2 Delivery O2 Flow Rate FiO2 08/23/16 08:00 100 Room Air 08/23/16 06:58 37.0 79 22 126/82 98 Room Air 08/23/16 05:04 36.9 86 18 131/85 96 Room Air 08/23/16 04:00 Room Air 08/23/16 00:01 100 Room Air 08/22/16 23:52 36.8 93 18 143/87 100 Room Air 08/22/16 20:00 96 Room Air 08/22/16 19:50 36.9 94 18 122/85 96 Room Air 08/22/16 19:31 36.8 66 18 106/62 94 08/22/16 19:17 36.8 76 113/88 08/22/16 19:00 54 93/69 08/22/16 18:45 72 131/93 08/22/16 18:30 58 107/67 08/22/16 18:15 57 117/67 08/22/16 18:00 58 96/58 08/22/16 17:45 64 101/57 08/22/16 17:30 98 92/70 08/22/16 17:15 97 93/61 08/22/16 17:00 93 132/80 08/22/16 16:45 84 107/79 08/22/16 16:30 87 119/61 08/22/16 16:16 86 109/76 08/22/16 16:10 37.0 86 128/76 08/22/16 16:05 36.7 79 22 119/78 95 08/22/16 16:00 98 Room Air 08/22/16 14:35 36.7 82 18 118/78 Room Air 08/22/16 14:05 36.8 78 20 122/74 Room Air 08/22/16 13:35 36.9 81 18 117/77 96 Room Air 08/22/16 13:05 36.8 81 20 123/86 95 Room Air 08/22/16 12:00 Room Air Lab Results: Results Past 24 Hours Test 08/22/16 16:19 08/22/16 20:10 08/23/16 06:14 08/23/16 06:37 Range/Units Bedside Glucose 153 220 224 70-99 mg/dl White Blood Count 6.86 4.8-10.8 K/uL Red Blood Count 3.62 4.7-6.1 M/uL Hemoglobin 10.7 14.0-18.0 g/dL Hematocrit 32.3 42-52 % Mean Corpuscular Volume 89.2 80-100 fL Mean Corpuscular Hemoglobin 29.6 25-34 pg Mean Corpuscular Hemoglobin Concent 33.1 32-36 g/dl RDW Standard Deviation 51.0 36.4-46.3 fL RDW Coefficient of Variation 15.6 11.5-14.5 % Platelet Count 174 130-400 K/uL Mean Platelet Volume 9.3 7.4-10.4 fL Sodium Level 137 136-145 mmol/L Potassium Level 4.6 3.5-5.1 mmol/L Chloride Level 101 98-107 mmol/L Carbon Dioxide Level 22 21-32 mmol/L Anion Gap 14.0 3-11 mmol/L Blood Urea Nitrogen 88 7-18 mg/dl Creatinine 4.80 0.60-1.40 mg/dl Est Creatinine Clear Calc Drug Dose 14.8 ml/min Estimated GFR () 14.5 Estimated GFR (Non- 12.5 BUN/Creatinine Ratio 18.2 10-20 Random Glucose 141 70-99 mg/dl Calcium Level 8.1 8.5-10.1 mg/dl Test 08/23/16 11:35 Range/Units Bedside Glucose 125 70-99 mg/dl
--- NOTE | 2016-08-23 12:47 | Infectious Disease Progress Nt ---
Progress Note Date of Service Aug 23, 2016. Subjective Pt evaluation today including: conversation w/ patient, physical exam, chart review, lab review, review of studies, conversation w/ library sales consultant (Dr. Ballard), review of inpatient medication list WBC Count today was 6.86. Patient is feeling well this morning. Had femoral temporary dialysis catheter placed yesterday. He did also have dialysis. His repeat blood cultures continue to show no growth. Anticipating placement of permanent catheter on Friday potentially pending culture results. He is tolerating his abx well. He continues to have some pain in his right knee. All Other Systems: Reviewed and Negative Medications Current Inpatient Medications Medications (Trade) Dose Ordered Sig/Edin Route Start Time Stop Time Status Last Admin Dose Admin Acetaminophen (Tylenol Tab) 650 mg Q4H PRN PO 08/19/16 14:00 09/18/16 13:59 08/19/16 16:41 650 MG Ondansetron HCl (Zofran Inj) 4 mg Q6H PRN IV 08/19/16 14:00 09/18/16 13:59 Insulin Aspart (novoLOG ASPART) SLIDING SCALE If C... ACHS SC 08/19/16 16:15 09/18/16 16:14 08/23/16 08:24 6 UNITS Glucose (Glucose 40% Gel) 15-30 GRAMS 15 GRAMS... UD PRN PO 08/19/16 14:15 09/18/16 14:14 Glucose (Glucose Chew Tab) 4-8 Tablets 4 Tabl... UD PRN PO 08/19/16 14:15 09/18/16 14:14 Dextrose (Dextrose 50% 50ML Syringe) 25-50ML OF 50% DW IV FOR... UD PRN IV 08/19/16 14:15 09/18/16 14:14 Glucagon (Glucagon Inj) 1 mg UD PRN SQ 08/19/16 14:15 09/18/16 14:14 Ascorbic Acid (Vitamin C Tab) 500 mg DAILY PO 08/20/16 09:00 09/19/16 08:59 08/23/16 08:11 500 MG Atorvastatin Calcium (Lipitor Tab) 40 mg HS PO 08/19/16 21:00 09/18/16 20:59 08/22/16 19:54 40 MG Calcium Acetate (Phoslo Cap) 1,334 mg TIDM PO 08/19/16 16:45 09/18/16 17:59 08/23/16 08:13 1,334 MG Salmeterol Xinafoate/ Fluticasone (Advair Diskus 250/50 Inh) 1 puff BID INH 08/19/16 21:00 09/18/16 20:59 08/23/16 08:14 1 PUFF Gabapentin (Neurontin Cap) 200 mg Q8 PO 08/19/16 22:00 09/18/16 21:59 08/23/16 06:11 200 MG Insulin Glargine (Lantus Solostar Pen) 5 unit BID SC 08/19/16 21:00 09/18/16 20:59 08/23/16 08:26 5 UNIT Albuterol/ Ipratropium (Combivent Respimat Inh) 1 puffs QID INH 08/19/16 17:00 09/18/16 16:59 08/23/16 08:14 1 PUFFS Lactobacillus Acidophilus (Floranex Tab) 1 tab TID PO 08/19/16 21:00 09/18/16 20:59 08/23/16 08:13 1 TAB Loratadine (Claritin Tab) 10 mg DAILY PO 08/20/16 09:00 09/19/16 08:59 08/23/16 08:13 10 MG Lorazepam (Ativan Tab) 0.5 mg TID PO 08/19/16 21:00 09/18/16 20:59 08/23/16 08:27 0.5 MG Metoprolol Succinate (Toprol Xl Tab) 25 mg BID PO 08/19/16 21:00 09/18/16 20:59 08/23/16 08:11 25 MG Oxycodone HCl (Oxycontin Tab) 30 mg Q8 PO 08/19/16 22:00 09/02/16 21:59 08/23/16 06:11 30 MG Senna/Docusate Sodium (Senokot S Tab) 1 tab HS PO 08/19/16 21:00 09/18/16 20:59 08/22/16 19:54 1 TAB Cholecalciferol (Vitamin D Tab) 5,000 inter.unit DAILY PO 08/20/16 09:00 09/19/16 08:59 08/23/16 08:12 5,000 INTER.UNIT Dexamethasone (Decadron Tab) 2 mg DAILY PO 08/20/16 09:00 09/19/16 08:59 08/23/16 08:13 2 MG Ferrous Sulfate (Feosol Tab) 325 mg DAILY PO 08/20/16 09:00 09/19/16 08:59 08/23/16 08:13 325 MG Polyethylene (Miralax Powder Packet) 17 gm QAM PO 08/20/16 09:00 09/19/16 08:59 08/23/16 08:13 17 GM Miscellaneous Information (Order Awaiting Action) 1 ea QS N/A 08/19/16 16:00 09/18/16 15:59 08/20/16 22:30 1 EA Pantoprazole Sodium 40 mg 40 mg QAM PO 08/20/16 09:00 09/19/16 08:59 08/23/16 08:12 40 MG Ceftaroline Fosamil/Sodium Chloride (Teflaro Inj/Nss 250ml) 256.6667 ml @ 250 mls/hr Q12H IV 08/19/16 18:00 09/02/16 17:59 08/23/16 06:20 250 MLS/HR Miscellaneous Information 1 ea UD PRN N/A 08/19/16 17:15 09/18/16 17:14 Perflutren Lipid Microsphere (Definity) 2 ml PRN PRN IV 08/22/16 07:30 09/21/16 07:29 08/22/16 07:23 2 ML Imipenem/ Cilastatin Sodium 1 ea 1 ea UD PRN N/A 08/22/16 11:15 09/21/16 11:14 Imipenem/ Cilastatin Sodium/ Dextrose (Primaxin Iv/D5 100ml) 110 ml @ 100 mls/hr Q12@0800,2000 IV 08/23/16 08:00 09/01/16 23:59 08/23/16 08:27 100 MLS/HR Oxycodone HCl (Roxicodone Immediate Rel Tab) 5 mg Q6H PRN PO 08/23/16 15:00 09/06/16 14:59 Objective Vital Signs Date Time Temp Pulse Resp B/P Pulse Ox O2 Delivery O2 Flow Rate FiO2 08/23/16 11:36 36.8 87 20 117/83 98 Room Air 4/7/17 08:00 100 Room Air 08/23/16 06:58 37.0 79 22 126/82 98 Room Air 08/23/16 05:04 36.9 86 18 131/85 96 Room Air 08/23/16 04:00 Room Air 08/23/16 00:01 100 Room Air 08/22/16 23:52 36.8 93 18 143/87 100 Room Air 08/22/16 20:00 96 Room Air 08/22/16 19:50 36.9 94 18 122/85 96 Room Air 08/22/16 19:31 36.8 66 18 106/62 94 08/22/16 19:17 36.8 76 113/88 08/22/16 19:00 54 93/69 08/22/16 18:45 72 131/93 08/22/16 18:30 58 107/67 08/22/16 18:15 57 117/67 08/22/16 18:00 58 96/58 08/22/16 17:45 64 101/57 08/22/16 17:30 98 92/70 08/22/16 17:15 97 93/61 08/22/16 17:00 93 132/80 08/22/16 16:45 84 107/79 08/22/16 16:30 87 119/61 08/22/16 16:16 86 109/76 08/22/16 16:10 37.0 86 128/76 08/22/16 16:05 36.7 79 22 119/78 95 08/22/16 16:00 98 Room Air 08/22/16 14:35 36.7 82 18 118/78 Room Air 08/22/16 14:05 36.8 78 20 122/74 Room Air 08/22/16 13:35 36.9 81 18 117/77 96 Room Air 08/22/16 13:05 36.8 81 20 123/86 95 Room Air Physical Exam General Appearance: no apparent distress, + obese Eyes: normal inspection, sclerae normal ENT: hearing grossly normal Neck: supple, trachea midline Respiratory/Chest: no respiratory distress, no accessory muscle use Cardiovascular: + pertinent finding (regular rate) Extremities: + pertinent finding (left AKA, right knee with bandage in place) Neurologic/Psychiatric: alert, normal mood/affect Skin: normal color, warm/dry, no rash Laboratory Results Item Value Date Time Blood Culture - Preliminary Resulted 08/21/16 0913 Blood NO GROWTH TO DATE. Blood Culture - Preliminary Resulted 08/21/16 0907 Blood NO GROWTH TO DATE. Blood Culture - Preliminary Resulted 08/20/16 0530 Blood NO GROWTH TO DATE. Blood Culture - Preliminary Resulted 08/20/16 0520 Blood NO GROWTH TO DATE. Urine Culture - Final Complete 08/19/16 1720 Urine,Catheterized Proteus Mirabilis Blood Culture - Preliminary Resulted 08/19/16 1420 Blood NO GROWTH TO DATE. Blood Culture - Final Complete 08/19/16 1414 Blood Staphylococcus Aureus Last 24 Hours Test 08/22/16 16:19 08/22/16 20:10 08/23/16 06:14 08/23/16 06:37 Bedside Glucose 153 mg/dl 220 mg/dl 224 mg/dl White Blood Count 6.86 K/uL Red Blood Count 3.62 M/uL Hemoglobin 10.7 g/dL Hematocrit 32.3 % Mean Corpuscular Volume 89.2 fL Mean Corpuscular Hemoglobin 29.6 pg Mean Corpuscular Hemoglobin Concent 33.1 g/dl RDW Standard Deviation 51.0 fL RDW Coefficient of Variation 15.6 % Platelet Count 174 K/uL Mean Platelet Volume 9.3 fL Sodium Level 137 mmol/L Potassium Level 4.6 mmol/L Chloride Level 101 mmol/L Carbon Dioxide Level 22 mmol/L Anion Gap 14.0 mmol/L Blood Urea Nitrogen 88 mg/dl Creatinine 4.80 mg/dl Est Creatinine Clear Calc Drug Dose 14.8 ml/min Estimated GFR () 14.5 Estimated GFR (Non- 12.5 BUN/Creatinine Ratio 18.2 Random Glucose 141 mg/dl Calcium Level 8.1 mg/dl Test 08/23/16 11:35 Bedside Glucose 125 mg/dl Assessment and Plan Patient with ESRD on HD with questionable infected perm cath and recurrent MRSA bacteremia. Initial blood cultures growing MRSA in 1/2 bottles. Repeat blood cultures currently showing no growth. Urine culture with Proteus. Continue Ceftaroline for MRSA and IV Primaxin for now while in house due to previously infected right knee wound and delayed healing. Echo did not show vegetations. Preferably would continue patient on IV Ceftaroline after discharge, but not sure how easy this will be with him being at [facility]. We will continue to follow. PROVIDER ADDENDUM: Pt. reviewed with Ms. Tapia. Agree with above assessment.
[2016-08-23] MEDS: DOCUSATE SODIUM/SENNA 50/8.6MG TAB PO SCH (20:47)
[2016-08-23] MEDS: ATORVASTATIN 40 MG TAB PO SCH (21:00)
[2016-08-24] VITALS (15 sets, daily range): BP systolic 102–156; BP diastolic 66–96; PULSE 81–90; TEMP 36.6–36.9; O2SAT 95–99
[2016-08-24] MEDS: OXYCODONE HCL IR 5 MG TAB (IMMEDIATE RELEASE) PO PRN ×3 (01:44→20:44)
[2016-08-24] MEDS: OXYCODONE HCL 15 MG TABCR (OXYCONTIN) PO SCH ×3 (05:57→22:23)
[2016-08-24] MEDS: CEFTAROLINE FOSAMIL IV SCH ×2 (05:57→20:49)
[2016-08-24] MEDS: SODIUM CHLORIDE 0.9% IV SCH ×2 (05:57→20:49)
[2016-08-24] MEDS: GABAPENTIN 100 MG CAP PO SCH ×3 (05:58→22:23)
[2016-08-24] MEDS ORDERED: EPOETIN ALFA 10,000 UNITS/ML VIAL IV. ONE (08:00)
[2016-08-24 08:06] LABS: HEMATOCRIT 32.9 % (42-52); MEAN CELL VOLUME 88.9 fL (80-100); MEAN CORPUSCULAR HEMOGLOBIN 29.2 pg (25-34); MEAN CORPUSCULAR HGB CONC 32.8 g/dl (32-36); PLATELET COUNT 172 K/uL (130-400); WHITE BLOOD COUNT 6.35 K/uL (4.8-10.8)
[2016-08-24] MEDS: IMIPENEM/CILASTATIN IV 500 MG in DEXTROSE 5% 100ML 100 ML IV SCH ×2 (08:17→22:23)
[2016-08-24] MEDS: LORAZEPAM 0.5 MG TAB PO SCH ×3 (08:18→20:44)
[2016-08-24] MEDS: IPRATROPIUM BROMIDE/ALBUTEROL respimat INH INH SCH ×4 (08:18→20:50)
[2016-08-24] MEDS: FLUTICASONE/SALMETEROL 250/50 (ADVAIR) 14 PUFF/1 INHALER INH SCH ×2 (08:18→20:49)
[2016-08-24] MEDS: PANTOprazole SOD 40 MG TAB PO SCH (08:18)
[2016-08-24] MEDS: CHOLECALCIFEROL 1000 INTER.UNIT TAB PO SCH (08:19)
[2016-08-24] MEDS: DEXAMETHASONE 1 MG TAB PO SCH (08:20)
[2016-08-24] MEDS: METOPROLOL SUCC 25MG EXT REL TAB PO SCH ×2 (08:20→20:47)
[2016-08-24] MEDS: FERROUS SULFATE 325 MG TAB PO SCH (08:20)
[2016-08-24] MEDS: CALCIUM ACETATE 667MG GELCAP PO SCH ×3 (08:20→16:43)
[2016-08-24] MEDS: LORATADINE 10 MG TAB PO SCH (08:21)
[2016-08-24] MEDS: LACTOBACILLUS ACIDOPHILUS (FLORANEX) TAB PO SCH ×3 (08:21→20:48)
[2016-08-24] MEDS: POLYETHYLENE (MIRALAX) 17 GM PACK PO SCH (08:22)
[2016-08-24] MEDS: ASCORBIC ACID 500 MG TAB PO SCH (08:22)
[2016-08-24] MEDS: INSULIN ASPART 100 UNITS/ML 3 ML PEN SC SCH ×4 (08:38→20:56)
[2016-08-24] MEDS: INSULIN GLARGINE SOLOSTAR 100 UNITS/ML 3 ML PEN SC SCH ×2 (08:39→20:57)
[2016-08-24 08:45] LABS: BUN/CREATININE RATIO 19.3 (10-20); CALCIUM 8.6 mg/dl (8.5-10.1); CREATININE 5.3 mg/dl (0.60-1.40)
--- NOTE | 2016-08-24 15:30 | Progress Note ---
Internal Med Progress Note Date of Service: Aug 24, 2016. Provider Documentation: SUBJECTIVE: Patient denies any new complaints. Does have wounds- RLE, Left buttock ulceration. No fever since admission, no chills. No chest pain, SOB, nausea, vomiting, abdominal pain, diarrhea OBJECTIVE: Vital Signs-as noted below Exam: General-AAOX3, Emotional Neck-Supple Lungs-AEBE decreased, no wheezing, rhonchi, rales Heart-S1, S2 normal; Right chest- dressing + s/p perm cath removal Abdomen-Soft, non tender, non distended, BS present Extremities-S/P Left AKA, Right Knee- Wound + dressing + Left buttock- Stage II ulceration; Femoral dialysis catheter + Lab data as noted below. ASSESSMENT & PLAN: FEVER - Resolved MRSA BACTEREMIA HX RIGHT KNEE WOUND INFECTION (pseudomonas, proteus) : Patient had fever spikes outpatient, Blood cx drawn on 08/12/16 at [facility] grew MRSA, was scheduled for removal of right perma cath on 08/19/16- removed, catheter tip for culture- negative for any growth. Was admitted to hospital for intermittent confusion post perm cath removal, fever spikes with recent MRSA bactermia -Afebrile since low grad fever spike 37.6 C outpatient, no leucocytosis, Lactic acid WNL -IV Ceftaroline per ID . Started on Imipenem on 08/22/16. Was on IV Vancomycin outpatient with MRSA bacteremia noted on 08/12/16 -Follow up- Blood cx x (1/ 2) - MRSA +, Repeat Blood cultures on 08/20/16- Negative, Repeat Blood cx- 08/21/16 x 2 - Negative; Urine cx - Proteus, Wound cx - not collected. Echo - EF 15-20%, Gd I diastolic dysfunction , Severe global hypokinesis, dilated atrium. -ID on board, appreciate inputs UTI Proteus Has foleys catheter. Colonization ? -On IV ceftaroline -Urine c/s- proteus ESRD Nephrology consulted; discussed w/ Dr. Flores; appreciate input Last HD on 08/19/16. S/p permcath removal 08/19/16 -Femoral dialysis catheter placed on 08/22/16 and dialysis done. -On Fluid restriction, Renal diet -Plan is to place tunneled line on Friday if blood cultures remain negative -Vascular surgery on board. HYPERKALEMIA- Resolved Secondary to above -Mx as above RIGHT KNEE AND LEFT BUTTOCK ULCERATIONS (STAGE II) -S/p skin graft of right knee wound on 08/15/16 -Consulted wound care nurse and wound care physician CHRONIC SYSTOLIC CHF/ ISCHEMIC CARDIOMYOPATHY EF 15-20% -Currently euvolemic -Updated Echo as above- EF 15-20% PRESUMED CAD Stable -Hold aspirin as procedure to be done on Friday -Continue beta david, statin DM TYPE 2 -Continue Lantus -Insulin sliding scale coverage CHRONIC RESPIRATORY FAILURE -Continue home oxygen 3L PRN DVT PROPHYLAXIS SCD's; re: need for procedures, tunneled line to be placed on friday FULL CODE Per preference on recent admission DISPOSITION Resides at [facility] For tunneled line on Friday Vital Signs: Date Time Temp Pulse Resp B/P Pulse Ox O2 Delivery O2 Flow Rate FiO2 08/24/16 08:40 Mask 2.0 08/24/16 08:15 36.7 81 16 156/96 99 143/92 08/24/16 00:35 Mask 2.0 08/23/16 23:13 36.9 81 20 133/89 97 Room Air 08/23/16 17:22 Mask 2.0 Lab Results: Results Past 24 Hours Test 08/23/16 16:25 08/23/16 22:45 08/24/16 07:44 08/24/16 08:03 Range/Units Bedside Glucose 272 142 262 70-99 mg/dl White Blood Count 6.35 4.8-10.8 K/uL Red Blood Count 3.70 4.7-6.1 M/uL Hemoglobin 10.8 14.0-18.0 g/dL Hematocrit 32.9 42-52 % Mean Corpuscular Volume 88.9 80-100 fL Mean Corpuscular Hemoglobin 29.2 25-34 pg Mean Corpuscular Hemoglobin Concent 32.8 32-36 g/dl RDW Standard Deviation 50.1 36.4-46.3 fL RDW Coefficient of Variation 15.5 11.5-14.5 % Platelet Count 172 130-400 K/uL Mean Platelet Volume 9.0 7.4-10.4 fL Sodium Level 135 136-145 mmol/L Potassium Level 5.0 3.5-5.1 mmol/L Chloride Level 102 98-107 mmol/L Carbon Dioxide Level 21 21-32 mmol/L Anion Gap 12.0 3-11 mmol/L Blood Urea Nitrogen 102 7-18 mg/dl Creatinine 5.30 0.60-1.40 mg/dl Est Creatinine Clear Calc Drug Dose 13.4 ml/min Estimated GFR () 12.8 Estimated GFR (Non- 11.1 BUN/Creatinine Ratio 19.3 10-20 Random Glucose 138 70-99 mg/dl Calcium Level 8.6 8.5-10.1 mg/dl Test 08/24/16 11:52 Range/Units Bedside Glucose 172 70-99 mg/dl
--- NOTE | 2016-08-24 17:37 | Nephrology Progress Note ---
Nephrology Progress Note Date of Service: Aug 24, 2016. Subjective seen on rounds this am 1015. 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 ACHS SC 08/19/16 16:15 09/18/16 16:14 08/24/16 16:56 6 UNITS Glucose (Glucose 40% Gel) 15-30 GRAMS 15 GRAMS... UD PRN PO 08/19/16 14:15 09/18/16 14:14 Glucose (Glucose Chew Tab) 4-8 Tablets 4 Tabl... UD PRN PO 08/19/16 14:15 09/18/16 14:14 Dextrose (Dextrose 50% 50ML Syringe) 25-50ML OF 50% DW IV FOR... UD PRN IV 08/19/16 14:15 09/18/16 14:14 Glucagon (Glucagon Inj) 1 mg UD PRN SQ 08/19/16 14:15 09/18/16 14:14 Ascorbic Acid (Vitamin C Tab) 500 mg DAILY PO 08/20/16 09:00 09/19/16 08:59 08/24/16 08:22 500 MG Atorvastatin Calcium (Lipitor Tab) 40 mg HS PO 08/19/16 21:00 09/18/16 20:59 08/23/16 21:00 40 MG Calcium Acetate (Phoslo Cap) 1,334 mg TIDM PO 08/19/16 16:45 09/18/16 17:59 08/24/16 16:43 1,334 MG Salmeterol Xinafoate/ Fluticasone (Advair Diskus 250/50 Inh) 1 puff BID INH 08/19/16 21:00 09/18/16 20:59 08/24/16 08:18 1 PUFF Gabapentin (Neurontin Cap) 200 mg Q8 PO 08/19/16 22:00 09/18/16 21:59 08/24/16 14:13 200 MG Insulin Glargine (Lantus Solostar Pen) 5 unit BID SC 08/19/16 21:00 09/18/16 20:59 08/24/16 08:39 5 UNIT Albuterol/ Ipratropium (Combivent Respimat Inh) 1 puffs QID INH 08/19/16 17:00 09/18/16 16:59 08/24/16 16:43 1 PUFFS Lactobacillus Acidophilus (Floranex Tab) 1 tab TID PO 08/19/16 21:00 09/18/16 20:59 08/24/16 14:13 1 TAB Loratadine (Claritin Tab) 10 mg DAILY PO 08/20/16 09:00 09/19/16 08:59 08/24/16 08:21 10 MG Lorazepam (Ativan Tab) 0.5 mg TID PO 08/19/16 21:00 09/18/16 20:59 08/24/16 14:12 0.5 MG Metoprolol Succinate (Toprol Xl Tab) 25 mg BID PO 08/19/16 21:00 09/18/16 20:59 08/24/16 08:20 25 MG Oxycodone HCl (Oxycontin Tab) 30 mg Q8 PO 08/19/16 22:00 09/02/16 21:59 08/24/16 14:12 30 MG Senna/Docusate Sodium (Senokot S Tab) 1 tab HS PO 08/19/16 21:00 09/18/16 20:59 08/23/16 20:47 1 TAB Cholecalciferol (Vitamin D Tab) 5,000 inter.unit DAILY PO 08/20/16 09:00 09/19/16 08:59 08/24/16 08:19 5,000 INTER.UNIT Dexamethasone (Decadron Tab) 2 mg DAILY PO 08/20/16 09:00 09/19/16 08:59 08/24/16 08:20 2 MG Ferrous Sulfate (Feosol Tab) 325 mg DAILY PO 08/20/16 09:00 09/19/16 08:59 08/24/16 08:20 325 MG Polyethylene (Miralax Powder Packet) 17 gm QAM PO 08/20/16 09:00 09/19/16 08:59 08/24/16 08:22 17 GM Miscellaneous Information (Order Awaiting Action) 1 ea QS N/A 08/19/16 16:00 09/18/16 15:59 08/20/16 22:30 1 EA Pantoprazole Sodium 40 mg 40 mg QAM PO 08/20/16 09:00 09/19/16 08:59 08/24/16 08:18 40 MG Ceftaroline Fosamil/Sodium Chloride (Teflaro Inj/Nss 250ml) 256.6667 ml @ 250 mls/hr Q12H IV 08/19/16 18:00 09/02/16 17:59 08/24/16 05:57 250 MLS/HR Miscellaneous Information 1 ea UD PRN N/A 08/19/16 17:15 09/18/16 17:14 Perflutren Lipid Microsphere (Definity) 2 ml PRN PRN IV 08/22/16 07:30 09/21/16 07:29 08/22/16 07:23 2 ML Imipenem/ Cilastatin Sodium 1 ea 1 ea UD PRN N/A 08/22/16 11:15 09/21/16 11:14 Imipenem/ Cilastatin Sodium/ Dextrose (Primaxin Iv/D5 100ml) 110 ml @ 100 mls/hr Q12@0800,2000 IV 08/23/16 08:00 09/01/16 23:59 08/24/16 08:17 100 MLS/HR Oxycodone HCl (Roxicodone Immediate Rel Tab) 5 mg Q6H PRN PO 08/23/16 15:00 09/06/16 14:59 08/24/16 11:16 5 MG Last 24 Hours Test 08/23/16 22:45 08/24/16 07:44 08/24/16 08:03 08/24/16 11:52 Bedside Glucose 142 mg/dl 262 mg/dl 172 mg/dl White Blood Count 6.35 K/uL Red Blood Count 3.70 M/uL Hemoglobin 10.8 g/dL Hematocrit 32.9 % Mean Corpuscular Volume 88.9 fL Mean Corpuscular Hemoglobin 29.2 pg Mean Corpuscular Hemoglobin Concent 32.8 g/dl RDW Standard Deviation 50.1 fL RDW Coefficient of Variation 15.5 % Platelet Count 172 K/uL Mean Platelet Volume 9.0 fL Sodium Level 135 mmol/L Potassium Level 5.0 mmol/L Chloride Level 102 mmol/L Carbon Dioxide Level 21 mmol/L Anion Gap 12.0 mmol/L Blood Urea Nitrogen 102 mg/dl Creatinine 5.30 mg/dl Est Creatinine Clear Calc Drug Dose 13.4 ml/min Estimated GFR () 12.8 Estimated GFR (Non- 11.1 BUN/Creatinine Ratio 19.3 Random Glucose 138 mg/dl Calcium Level 8.6 mg/dl Test 08/24/16 16:39 Bedside Glucose 187 mg/dl Assessment & Plan 56 yo male with esrd with positive blood cultures, had tunneled line removed. had temporary line placed 08/22. ESRD-for dialysis today on a 2k bath with about 2 liters uf as blood pressure tolerates. plan to maintain a - schedule while inhouse. blood cultures from 08/19-one of two positive; f/u blood cxs and tip negative. urine culture positive for proteus. tentatively plan for tunneled line on friday if repeat cultures remain negative if ok with ID. anemia of renal failure-hg levels are stable in the 12s. no role for procrit.
[2016-08-24] MEDS: DOCUSATE SODIUM/SENNA 50/8.6MG TAB PO SCH (20:47)
[2016-08-24] MEDS: ATORVASTATIN 40 MG TAB PO SCH (20:48)
[2016-08-25] VITALS (16 sets, daily range): BP systolic 97–147; BP diastolic 41–89; PULSE 75–93; TEMP 36.6–36.9; O2SAT 94–97
[2016-08-25] MEDS: CEFTAROLINE FOSAMIL IV SCH ×2 (05:40→21:12)
[2016-08-25] MEDS: GABAPENTIN 100 MG CAP PO SCH ×3 (05:40→21:11)
[2016-08-25] MEDS: SODIUM CHLORIDE 0.9% IV SCH ×2 (05:40→21:12)
[2016-08-25] MEDS: OXYCODONE HCL IR 5 MG TAB (IMMEDIATE RELEASE) PO PRN ×3 (05:42→21:15)
[2016-08-25] MEDS: OXYCODONE HCL 15 MG TABCR (OXYCONTIN) PO SCH ×3 (06:42→21:24)
[2016-08-25] MEDS: LACTOBACILLUS ACIDOPHILUS (FLORANEX) TAB PO SCH ×3 (07:59→21:11)
[2016-08-25] MEDS: ASCORBIC ACID 500 MG TAB PO SCH (07:59)
[2016-08-25] MEDS: IMIPENEM/CILASTATIN IV 500 MG in DEXTROSE 5% 100ML 100 ML IV SCH ×2 (07:59→21:50)
[2016-08-25] MEDS: DEXAMETHASONE 1 MG TAB PO SCH (08:00)
[2016-08-25] MEDS: PANTOprazole SOD 40 MG TAB PO SCH (08:00)
[2016-08-25] MEDS: CHOLECALCIFEROL 1000 INTER.UNIT TAB PO SCH (08:00)
[2016-08-25] MEDS: CALCIUM ACETATE 667MG GELCAP PO SCH ×3 (08:01→21:12)
[2016-08-25] MEDS: FERROUS SULFATE 325 MG TAB PO SCH (08:01)
[2016-08-25] MEDS: LORATADINE 10 MG TAB PO SCH (08:01)
[2016-08-25] MEDS: METOPROLOL SUCC 25MG EXT REL TAB PO SCH ×2 (08:01→21:11)
[2016-08-25] MEDS: IPRATROPIUM BROMIDE/ALBUTEROL respimat INH INH SCH ×4 (08:02→21:11)
[2016-08-25] MEDS: FLUTICASONE/SALMETEROL 250/50 (ADVAIR) 14 PUFF/1 INHALER INH SCH ×2 (08:02→21:12)
[2016-08-25] MEDS: POLYETHYLENE (MIRALAX) 17 GM PACK PO SCH (08:03)
[2016-08-25] MEDS: LORAZEPAM 0.5 MG TAB PO SCH ×3 (08:08→21:15)
[2016-08-25] MEDS: INSULIN GLARGINE SOLOSTAR 100 UNITS/ML 3 ML PEN SC SCH ×2 (08:20→21:55)
[2016-08-25] MEDS: INSULIN ASPART 100 UNITS/ML 3 ML PEN SC SCH ×4 (08:20→21:57)
[2016-08-25] MEDS ORDERED: EPOETIN ALFA 10,000 UNITS/ML VIAL IV. ONE (09:15)
[2016-08-25] MEDS ORDERED: HEPARIN SOD (PORCINE) 1000 UNIT/ML 10 ML VIAL IV SCH (09:15)
--- NOTE | 2016-08-25 10:56 | Nephrology Progress Note ---
Nephrology Progress Note Date of Service: Aug 25, 2016. Subjective had issues w/ high arterial pressures on temp groin line yesterday and did not run full tx > will try again today; no dyspnea, no n/v/ no rigors; tolerating po Objective Date Time Temp Pulse Resp B/P Pulse Ox O2 Delivery O2 Flow Rate FiO2 08/25/16 08:13 36.6 85 17 138/89 97 08/25/16 01:15 Mask 2.0 08/24/16 22:53 36.7 85 18 142/92 97 2.0 08/24/16 20:10 36.9 81 114/83 08/24/16 19:30 87 114/79 08/24/16 19:15 82 113/80 08/24/16 19:00 82 107/71 08/24/16 18:45 82 102/69 08/24/16 18:30 83 122/85 08/24/16 18:15 83 117/82 08/24/16 18:00 83 120/66 08/24/16 17:45 84 120/71 08/24/16 17:30 86 121/69 08/24/16 17:16 90 134/84 08/24/16 17:10 36.9 90 130/76 08/24/16 16:47 36.6 85 16 128/82 95 08/24/16 16:16 Mask 2.0 Physical Exam: General-aaox3, on ra, nad Eyes-no scleral icterus ENT-mmm Neck-supple Lungs-clear but very diminished Heart-regular Abdomen-bs+ s/nt/nd Extremities-+1 edema, right knee wrapped, left aka Neuro-fowler, fluent speech -chronic blair Current Inpatient Medications Medications (Trade) Dose Ordered Sig/Edin Route Start Time Stop Time Status Last Admin Dose Admin Acetaminophen (Tylenol Tab) 650 mg Q4H PRN PO 08/19/16 14:00 09/18/16 13:59 08/19/16 16:41 650 MG Ondansetron HCl (Zofran Inj) 4 mg Q6H PRN IV 08/19/16 14:00 09/18/16 13:59 Insulin Aspart (novoLOG ASPART) SLIDING SCALE If C... ACHS SC 08/19/16 16:15 09/18/16 16:14 4/9/17 08:20 6 UNITS Glucose (Glucose 40% Gel) 15-30 GRAMS 15 GRAMS... UD PRN PO 08/19/16 14:15 09/18/16 14:14 Glucose (Glucose Chew Tab) 4-8 Tablets 4 Tabl... UD PRN PO 08/19/16 14:15 09/18/16 14:14 Dextrose (Dextrose 50% 50ML Syringe) 25-50ML OF 50% DW IV FOR... UD PRN IV 08/19/16 14:15 09/18/16 14:14 Glucagon (Glucagon Inj) 1 mg UD PRN SQ 08/19/16 14:15 09/18/16 14:14 Ascorbic Acid (Vitamin C Tab) 500 mg DAILY PO 08/20/16 09:00 09/19/16 08:59 08/25/16 07:59 500 MG Atorvastatin Calcium (Lipitor Tab) 40 mg HS PO 08/19/16 21:00 09/18/16 20:59 08/24/16 20:48 40 MG Calcium Acetate (Phoslo Cap) 1,334 mg TIDM PO 08/19/16 16:45 09/18/16 17:59 08/25/16 08:01 1,334 MG Salmeterol Xinafoate/ Fluticasone (Advair Diskus 250/50 Inh) 1 puff BID INH 08/19/16 21:00 09/18/16 20:59 08/25/16 08:02 1 PUFF Gabapentin (Neurontin Cap) 200 mg Q8 PO 08/19/16 22:00 09/18/16 21:59 08/25/16 05:40 200 MG Insulin Glargine (Lantus Solostar Pen) 5 unit BID SC 08/19/16 21:00 09/18/16 20:59 08/25/16 08:20 5 UNIT Albuterol/ Ipratropium (Combivent Respimat Inh) 1 puffs QID INH 08/19/16 17:00 09/18/16 16:59 08/25/16 08:02 1 PUFFS Lactobacillus Acidophilus (Floranex Tab) 1 tab TID PO 08/19/16 21:00 09/18/16 20:59 08/25/16 07:59 1 TAB Loratadine (Claritin Tab) 10 mg DAILY PO 08/20/16 09:00 09/19/16 08:59 08/25/16 08:01 10 MG Lorazepam (Ativan Tab) 0.5 mg TID PO 08/19/16 21:00 09/18/16 20:59 08/25/16 08:08 0.5 MG Metoprolol Succinate (Toprol Xl Tab) 25 mg BID PO 08/19/16 21:00 09/18/16 20:59 08/25/16 08:01 25 MG Oxycodone HCl (Oxycontin Tab) 30 mg Q8 PO 08/19/16 22:00 09/02/16 21:59 08/25/16 06:42 30 MG Senna/Docusate Sodium (Senokot S Tab) 1 tab HS PO 08/19/16 21:00 09/18/16 20:59 08/23/16 20:47 1 TAB Cholecalciferol (Vitamin D Tab) 5,000 inter.unit DAILY PO 08/20/16 09:00 09/19/16 08:59 08/25/16 08:00 5,000 INTER.UNIT Dexamethasone (Decadron Tab) 2 mg DAILY PO 08/20/16 09:00 09/19/16 08:59 08/25/16 08:00 2 MG Ferrous Sulfate (Feosol Tab) 325 mg DAILY PO 08/20/16 09:00 09/19/16 08:59 08/25/16 08:01 325 MG Polyethylene (Miralax Powder Packet) 17 gm QAM PO 08/20/16 09:00 09/19/16 08:59 08/25/16 08:03 17 GM Miscellaneous Information (Order Awaiting Action) 1 ea QS N/A 08/19/16 16:00 09/18/16 15:59 08/20/16 22:30 1 EA Pantoprazole Sodium 40 mg 40 mg QAM PO 08/20/16 09:00 09/19/16 08:59 08/25/16 08:00 40 MG Ceftaroline Fosamil/Sodium Chloride (Teflaro Inj/Nss 250ml) 256.6667 ml @ 250 mls/hr Q12H IV 08/19/16 18:00 09/02/16 17:59 08/25/16 05:40 250 MLS/HR Miscellaneous Information 1 ea UD PRN N/A 08/19/16 17:15 09/18/16 17:14 Perflutren Lipid Microsphere (Definity) 2 ml PRN PRN IV 08/22/16 07:30 09/21/16 07:29 08/22/16 07:23 2 ML Imipenem/ Cilastatin Sodium 1 ea 1 ea UD PRN N/A 08/22/16 11:15 09/21/16 11:14 Imipenem/ Cilastatin Sodium/ Dextrose (Primaxin Iv/D5 100ml) 110 ml @ 100 mls/hr Q12@0800,2000 IV 08/23/16 08:00 09/01/16 23:59 08/25/16 07:59 100 MLS/HR Oxycodone HCl (Roxicodone Immediate Rel Tab) 5 mg Q6H PRN PO 08/23/16 15:00 09/06/16 14:59 08/25/16 05:42 5 MG Heparin Sodium (Porcine) (Heparin Iv Bolus) 400 unit Q1H IV 08/25/16 09:15 08/25/16 11:16 Albumin Human 12.5 gm 12.5 gm TODAY@0930,1100 IV 08/25/16 09:30 08/25/16 23:59 Epoetin Simone/ Syringe (Procrit Inj/ Syringe) 0.3 ml @ 1 mls/min TODAY@1200 IV. 08/25/16 12:00 08/25/16 23:59 Last 24 Hours Test 08/24/16 11:52 08/24/16 16:39 08/24/16 20:34 08/25/16 07:41 Bedside Glucose 172 mg/dl 187 mg/dl 144 mg/dl 141 mg/dl Assessment & Plan 56 yo male with esrd with positive blood cultures, had tunneled line removed. had temporary line placed 08/22. ESRD-for dialysis again today on a 2k bath with about 2 liters uf as blood pressure tolerates. plan to maintain a schedule while inhouse. blood cultures from 08/19-one of two positive; f/u blood cxs and tip negative. urine culture positive for proteus. tentatively plan for tunneled line on friday if repeat cultures remain negative if ok with ID-will reach out to vascular. anemia of renal failure-hg levels are stable in the 12s. no role for procrit. Care coordinated w/ Dr Ballard. Appreciate consult; will follow with you.
[2016-08-25] MEDS ORDERED: EPOETIN ALFA INJ 6,000 UNITS in SYRINGE 0 ML IV. SCH (12:00)
--- NOTE | 2016-08-25 12:23 | Progress Note ---
Internal Med Progress Note Date of Service: Aug 25, 2016. Provider Documentation: SUBJECTIVE: Patient denies any new complaints. Does have wounds- RLE, Left buttock ulceration. No fever since admission, no chills. No chest pain, SOB, nausea, vomiting, abdominal pain, diarrhea OBJECTIVE: Vital Signs-as noted below Exam: General-AAOX3, Emotional Neck-Supple Lungs-AEBE decreased, no wheezing, rhonchi, rales Heart-S1, S2 normal; Right chest- dressing + s/p perm cath removal Abdomen-Soft, non tender, non distended, BS present Extremities-S/P Left AKA, Right Knee- Wound + dressing + Left buttock- Stage II ulceration; Femoral dialysis catheter + Lab data as noted below. ASSESSMENT & PLAN: FEVER - Resolved MRSA BACTEREMIA HX RIGHT KNEE WOUND INFECTION (pseudomonas, proteus) : Patient had fever spikes outpatient, Blood cx drawn on 08/12/16 at [facility] grew MRSA, was scheduled for removal of right perma cath on 08/19/16- removed, catheter tip for culture- negative for any growth. Was admitted to hospital for intermittent confusion post perm cath removal, fever spikes with recent MRSA bactermia -Afebrile since low grad fever spike 37.6 C outpatient, no leucocytosis, Lactic acid WNL -IV Ceftaroline per ID . Started on Imipenem on 08/22/16. Was on IV Vancomycin outpatient with MRSA bacteremia noted on 08/12/16 -Follow up- Blood cx x (1/ 2) - MRSA +, Repeat Blood cultures on 08/20/16- Negative, Repeat Blood cx- 08/21/16 x 2 - Negative; Urine cx - Proteus, Wound cx - not collected. Echo - EF 15-20%, Gd I diastolic dysfunction , Severe global hypokinesis, dilated atrium. -ID on board, appreciate inputs UTI Proteus Has foleys catheter. Colonization ? -On IV ceftaroline -Urine c/s- proteus ESRD S/p permcath removal 08/19/16 -Femoral dialysis catheter placed on 08/22/16 and dialysis done, yesterday was unable to access line -Plan is to place tunneled line on Friday as blood cultures remain negative -Vascular surgery on board. HYPERKALEMIA- Resolved Secondary to above -Mx as above RIGHT KNEE AND LEFT BUTTOCK ULCERATIONS (STAGE II) -S/p skin graft of right knee wound on 08/15/16 -Consulted wound care nurse and wound care physician CHRONIC SYSTOLIC CHF/ ISCHEMIC CARDIOMYOPATHY EF 15-20% -Currently euvolemic -Updated Echo as above- EF 15-20% PRESUMED CAD Stable -Hold aspirin as procedure to be done on Friday -Continue beta david, statin DM TYPE 2 -Continue Lantus -Insulin sliding scale coverage CHRONIC RESPIRATORY FAILURE -Continue home oxygen 3L PRN DVT PROPHYLAXIS SCD's; re: need for procedures, tunneled line to be placed on friday FULL CODE Per preference on recent admission DISPOSITION Resides at [facility] For tunneled line on Friday Will need IV antibiotics on discharge Vital Signs: Date Time Temp Pulse Resp B/P Pulse Ox O2 Delivery O2 Flow Rate FiO2 08/25/16 08:13 36.6 85 17 138/89 97 08/25/16 08:00 Mask 2.0 08/25/16 01:15 Mask 2.0 08/24/16 22:53 36.7 85 18 142/92 97 2.0 08/24/16 20:10 36.9 81 114/83 08/24/16 19:30 87 114/79 08/24/16 19:15 82 113/80 08/24/16 19:00 82 107/71 08/24/16 18:45 82 102/69 08/24/16 18:30 83 122/85 08/24/16 18:15 83 117/82 08/24/16 18:00 83 120/66 08/24/16 17:45 84 120/71 08/24/16 17:30 86 121/69 08/24/16 17:16 90 134/84 08/24/16 17:10 36.9 90 130/76 08/24/16 16:47 36.6 85 16 128/82 95 08/24/16 16:16 Mask 2.0 Lab Results: Results Past 24 Hours Test 08/24/16 16:39 08/24/16 20:34 08/25/16 07:41 08/25/16 11:27 Range/Units Bedside Glucose 187 144 141 284 70-99 mg/dl
[2016-08-25] MEDS ORDERED: NURSING VERBAL MED ORDER ONE (16:00)
[2016-08-25] MEDS: ALTEPLASE, RECOMBINANT 1 MG/ML 2 ML VIAL IV SCH ×2 (16:30→16:31)
[2016-08-25] MEDS: ALBUMIN HUMAN 25% 12.5 GM/50 ML VIAL IV SCH ×2 (17:21→18:50)
[2016-08-25] MEDS: HEPARIN SOD (PORCINE) 1000 UNIT/ML 10 ML VIAL IV SCH ×2 (18:15→19:15)
[2016-08-25] MEDS: DOCUSATE SODIUM/SENNA 50/8.6MG TAB PO SCH (21:00)
[2016-08-25] MEDS: ATORVASTATIN 40 MG TAB PO SCH (21:10)
[2016-08-26] VITALS (10 sets, daily range): BP systolic 108–142; BP diastolic 78–94; PULSE 71–84; TEMP 36.5–36.9; O2SAT 96–100
[2016-08-26] MEDS: OXYCODONE HCL IR 5 MG TAB (IMMEDIATE RELEASE) PO PRN ×3 (04:37→17:08)
[2016-08-26] MEDS: GABAPENTIN 100 MG CAP PO SCH ×3 (05:50→21:18)
[2016-08-26] MEDS: CEFTAROLINE FOSAMIL IV SCH ×2 (05:50→17:47)
[2016-08-26] MEDS: OXYCODONE HCL 15 MG TABCR (OXYCONTIN) PO SCH ×3 (05:50→21:27)
[2016-08-26] MEDS: SODIUM CHLORIDE 0.9% IV SCH ×2 (05:50→17:47)
[2016-08-26] MEDS: LORAZEPAM 0.5 MG TAB PO SCH ×3 (07:53→19:35)
[2016-08-26] MEDS: IPRATROPIUM BROMIDE/ALBUTEROL respimat INH INH SCH ×4 (07:53→19:34)
[2016-08-26] MEDS: FLUTICASONE/SALMETEROL 250/50 (ADVAIR) 14 PUFF/1 INHALER INH SCH ×2 (07:53→19:33)
[2016-08-26] MEDS: IMIPENEM/CILASTATIN IV 500 MG in DEXTROSE 5% 100ML 100 ML IV SCH ×2 (07:53→20:32)
[2016-08-26] MEDS: FERROUS SULFATE 325 MG TAB PO SCH (07:54)
[2016-08-26] MEDS: DEXAMETHASONE 1 MG TAB PO SCH (07:54)
[2016-08-26] MEDS: LORATADINE 10 MG TAB PO SCH (07:54)
[2016-08-26 07:55] LABS: HEMATOCRIT 33.5 % (42-52); MEAN CELL VOLUME 91.8 fL (80-100); MEAN CORPUSCULAR HEMOGLOBIN 29.3 pg (25-34); MEAN CORPUSCULAR HGB CONC 31.9 g/dl (32-36); MEAN PLATELET VOLUME 9.6 fL (7.4-10.4); PLATELET COUNT 152 K/uL (130-400); RED BLOOD COUNT 3.65 M/uL (4.7-6.1); WHITE BLOOD COUNT 7.11 K/uL (4.8-10.8)
[2016-08-26] MEDS: METOPROLOL SUCC 25MG EXT REL TAB PO SCH ×2 (07:55→19:37)
[2016-08-26] MEDS: PANTOprazole SOD 40 MG TAB PO SCH (07:55)
[2016-08-26] MEDS: ASCORBIC ACID 500 MG TAB PO SCH (07:55)
[2016-08-26] MEDS: LACTOBACILLUS ACIDOPHILUS (FLORANEX) TAB PO SCH ×3 (07:55→19:36)
[2016-08-26] MEDS: CALCIUM ACETATE 667MG GELCAP PO SCH ×3 (07:56→17:10)
--- NOTE | 2016-08-26 08:10 | Nephrology Progress Note ---
Nephrology Progress Note Date of Service: Aug 26, 2016. Subjective had issues w/ high arterial pressures on temp groin line 08/24 and did not run full tx > then tried another tx on 08/25 w/ some problems; responded to alteplase and trendelenberg and so w/ 3 attempts had full tx. vascular to place tunnelled line today or tomorrow. no dyspnea, no n/v/ no rigors; tolerating po Objective Date Time Temp Pulse Resp B/P Pulse Ox O2 Delivery O2 Flow Rate FiO2 08/26/16 07:50 36.7 82 20 134/89 98 Mask 2.0 08/26/16 00:00 97 Mask 2.0 08/25/16 23:15 36.7 93 18 145/82 94 Room Air 08/25/16 21:02 36.6 83 143/77 08/25/16 20:00 97 Mask 2.0 08/25/16 20:00 79 140/87 08/25/16 19:48 83 140/78 08/25/16 19:30 80 127/75 08/25/16 19:15 75 97/41 08/25/16 19:00 89 140/57 08/25/16 18:45 78 118/81 08/25/16 18:30 80 133/75 08/25/16 18:15 82 147/63 08/25/16 18:00 82 131/75 08/25/16 17:45 82 140/87 08/25/16 17:30 82 140/87 08/25/16 17:15 83 142/87 08/25/16 16:53 Mask 2.0 08/25/16 16:00 36.9 92 141/89 08/25/16 08:13 36.6 85 17 138/89 97 Physical Exam: General-aaox3, on ra, nad Eyes-no scleral icterus ENT-mmm Neck-supple Lungs-clear but very diminished Heart-regular Abdomen-bs+ s/nt/nd Extremities-+1 edema, right knee wrapped, left aka, R groin line Neuro-fowler, fluent speech -chronic blair Current Inpatient Medications Medications (Trade) Dose Ordered Sig/Edin Route Start Time Stop Time Status Last Admin Dose Admin Acetaminophen (Tylenol Tab) 650 mg Q4H PRN PO 08/19/16 14:00 09/18/16 13:59 08/19/16 16:41 650 MG Ondansetron HCl (Zofran Inj) 4 mg Q6H PRN IV 08/19/16 14:00 09/18/16 13:59 Insulin Aspart (novoLOG ASPART) SLIDING SCALE If C... ACHS SC 08/19/16 16:15 09/18/16 16:14 08/25/16 21:57 7 UNITS Glucose (Glucose 40% Gel) 15-30 GRAMS 15 GRAMS... UD PRN PO 08/19/16 14:15 09/18/16 14:14 Glucose (Glucose Chew Tab) 4-8 Tablets 4 Tabl... UD PRN PO 08/19/16 14:15 09/18/16 14:14 Dextrose (Dextrose 50% 50ML Syringe) 25-50ML OF 50% DW IV FOR... UD PRN IV 08/19/16 14:15 09/18/16 14:14 Glucagon (Glucagon Inj) 1 mg UD PRN SQ 08/19/16 14:15 09/18/16 14:14 Ascorbic Acid (Vitamin C Tab) 500 mg DAILY PO 08/20/16 09:00 09/19/16 08:59 08/26/16 07:55 500 MG Atorvastatin Calcium (Lipitor Tab) 40 mg HS PO 08/19/16 21:00 09/18/16 20:59 08/25/16 21:10 40 MG Calcium Acetate (Phoslo Cap) 1,334 mg TIDM PO 08/19/16 16:45 09/18/16 17:59 08/25/16 21:12 1,334 MG Salmeterol Xinafoate/ Fluticasone (Advair Diskus 250/50 Inh) 1 puff BID INH 08/19/16 21:00 09/18/16 20:59 08/26/16 07:53 1 PUFF Gabapentin (Neurontin Cap) 200 mg Q8 PO 08/19/16 22:00 09/18/16 21:59 08/26/16 05:50 200 MG Insulin Glargine (Lantus Solostar Pen) 5 unit BID SC 08/19/16 21:00 09/18/16 20:59 08/25/16 21:55 5 UNIT Albuterol/ Ipratropium (Combivent Respimat Inh) 1 puffs QID INH 08/19/16 17:00 09/18/16 16:59 08/26/16 07:53 1 PUFFS Lactobacillus Acidophilus (Floranex Tab) 1 tab TID PO 08/19/16 21:00 09/18/16 20:59 08/26/16 07:55 1 TAB Loratadine (Claritin Tab) 10 mg DAILY PO 08/20/16 09:00 09/19/16 08:59 08/26/16 07:54 10 MG Lorazepam (Ativan Tab) 0.5 mg TID PO 08/19/16 21:00 09/18/16 20:59 08/26/16 07:53 0.5 MG Metoprolol Succinate (Toprol Xl Tab) 25 mg BID PO 08/19/16 21:00 09/18/16 20:59 08/26/16 07:55 25 MG Oxycodone HCl (Oxycontin Tab) 30 mg Q8 PO 08/19/16 22:00 09/02/16 21:59 08/26/16 05:50 30 MG Senna/Docusate Sodium (Senokot S Tab) 1 tab HS PO 08/19/16 21:00 09/18/16 20:59 08/23/16 20:47 1 TAB Cholecalciferol (Vitamin D Tab) 5,000 inter.unit DAILY PO 08/20/16 09:00 09/19/16 08:59 08/25/16 08:00 5,000 INTER.UNIT Dexamethasone (Decadron Tab) 2 mg DAILY PO 08/20/16 09:00 09/19/16 08:59 08/26/16 07:54 2 MG Ferrous Sulfate (Feosol Tab) 325 mg DAILY PO 08/20/16 09:00 09/19/16 08:59 08/26/16 07:54 325 MG Polyethylene (Miralax Powder Packet) 17 gm QAM PO 08/20/16 09:00 09/19/16 08:59 08/25/16 08:03 17 GM Miscellaneous Information (Order Awaiting Action) 1 ea QS N/A 08/19/16 16:00 09/18/16 15:59 08/20/16 22:30 1 EA Pantoprazole Sodium 40 mg 40 mg QAM PO 08/20/16 09:00 09/19/16 08:59 08/26/16 07:55 40 MG Ceftaroline Fosamil/Sodium Chloride (Teflaro Inj/Nss 250ml) 256.6667 ml @ 250 mls/hr Q12H IV 08/19/16 18:00 09/02/16 17:59 08/26/16 05:50 250 MLS/HR Miscellaneous Information 1 ea UD PRN N/A 08/19/16 17:15 09/18/16 17:14 Perflutren Lipid Microsphere (Definity) 2 ml PRN PRN IV 08/22/16 07:30 09/21/16 07:29 08/22/16 07:23 2 ML Imipenem/ Cilastatin Sodium 1 ea 1 ea UD PRN N/A 08/22/16 11:15 09/21/16 11:14 Imipenem/ Cilastatin Sodium/ Dextrose (Primaxin Iv/D5 100ml) 110 ml @ 100 mls/hr Q12@0800,2000 IV 08/23/16 08:00 09/01/16 23:59 08/26/16 07:53 100 MLS/HR Oxycodone HCl (Roxicodone Immediate Rel Tab) 5 mg Q6H PRN PO 08/23/16 15:00 09/06/16 14:59 08/26/16 04:37 5 MG Last 24 Hours Test 08/25/16 11:27 08/25/16 17:23 08/25/16 21:48 08/26/16 07:25 Bedside Glucose 284 mg/dl 176 mg/dl 116 mg/dl White Blood Count 7.11 K/uL Red Blood Count 3.65 M/uL Hemoglobin 10.7 g/dL Hematocrit 33.5 % Mean Corpuscular Volume 91.8 fL Mean Corpuscular Hemoglobin 29.3 pg Mean Corpuscular Hemoglobin Concent 31.9 g/dl RDW Standard Deviation 52.3 fL RDW Coefficient of Variation 15.5 % Platelet Count 152 K/uL Mean Platelet Volume 9.6 fL Assessment & Plan 56 yo male with esrd with positive blood cultures, had tunneled line removed. had temporary line placed 08/22. ESRD-for dialysis again tomorrow w/ permacath. plan to maintain a schedule while inhouse. TDC infection/dialysis access infection >> blood cultures from 08/19-one of two positive; f/u blood cxs 08/21 and tip negative. urine culture positive for proteus. tentatively plan for tunneled line today or tomorrow anemia of renal failure-hg levels are stable in the 10s. yesterday had low dose procrit. Care coordinated w/ Dr Bermudez. Appreciate consult; will follow with you.
[2016-08-26] MEDS: INSULIN ASPART 100 UNITS/ML 3 ML PEN SC SCH ×4 (08:19→21:21)
[2016-08-26 08:32] LABS: BUN/CREATININE RATIO 16.5 (10-20); CALCIUM 8.9 mg/dl (8.5-10.1); CREATININE 4.9 mg/dl (0.60-1.40); POTASSIUM 4.4 mmol/L (3.5-5.1)
[2016-08-26] MEDS ORDERED: NURSING VERBAL MED ORDER ONE (09:45)
--- NOTE | 2016-08-26 12:07 | Progress Note ---
Internal Med Progress Note Date of Service: Aug 26, 2016. Provider Documentation: SUBJECTIVE: Patient denies any new complaints. Does have wounds- RLE, Left buttock ulceration. No fever since admission, no chills. No chest pain, SOB, nausea, vomiting, abdominal pain, diarrhea OBJECTIVE: Vital Signs-as noted below Exam: General-AAOX3, Emotional Neck-Supple Lungs-AEBE decreased, no wheezing, rhonchi, rales Heart-S1, S2 normal; Right chest- dressing + s/p perm cath removal Abdomen-Soft, non tender, non distended, BS present Extremities-S/P Left AKA, Right Knee- Wound + dressing + Left buttock- Stage II ulceration; Femoral dialysis catheter + Lab data as noted below. ASSESSMENT & PLAN: FEVER - Resolved MRSA BACTEREMIA HX RIGHT KNEE WOUND INFECTION (pseudomonas, proteus) : Patient had fever spikes outpatient, Blood cx drawn on 08/12/16 at [facility] grew MRSA, was scheduled for removal of right perma cath on 08/19/16- removed, catheter tip for culture- negative for any growth. Was admitted to hospital for intermittent confusion post perm cath removal, fever spikes with recent MRSA bactermia -Afebrile since low grad fever spike 37.6 C outpatient, no leucocytosis, Lactic acid WNL -IV Ceftaroline per ID . Started on Imipenem on 08/22/16 for right knee infection. Was on IV Vancomycin outpatient with MRSA bacteremia noted on 08/12/16 -Follow up- Blood cx x (1/ 2) - MRSA +, Repeat Blood cultures on 08/20/16- Negative, Repeat Blood cx- 08/21/16 x 2 - Negative; Urine cx - Proteus, Wound cx - not collected. Echo - EF 15-20%, Gd I diastolic dysfunction , Severe global hypokinesis, dilated atrium. -ID on board, appreciate inputs UTI Proteus Has foleys catheter. Colonization ? -On IV ceftaroline, Imipenem as above -Urine c/s- proteus ESRD S/p permcath removal 08/19/16 -Femoral dialysis catheter placed on 08/22/16 and dialysis done. Had difficulty accessing this line -Plan is to place tunneled line today or tomorrow as blood cultures remain negative -Vascular surgery on board. HYPERKALEMIA- Resolved Secondary to above -Mx as above RIGHT KNEE AND LEFT BUTTOCK ULCERATIONS (STAGE II) -S/p skin graft of right knee wound on 08/15/16 -Consulted wound care nurse and wound care physician CHRONIC SYSTOLIC CHF/ ISCHEMIC CARDIOMYOPATHY EF 15-20% -Currently euvolemic -Updated Echo as above- EF 15-20% PRESUMED CAD Stable -Hold aspirin as procedure to be done today or tomorrow -Continue beta david, statin DM TYPE 2 -Continue Lantus -Insulin sliding scale coverage CHRONIC RESPIRATORY FAILURE -Continue home oxygen 3L PRN DVT PROPHYLAXIS SCD's; re: need for procedures, tunneled line to be placed on friday FULL CODE Per preference on recent admission DISPOSITION Resides at [facility] For tunneled line placement today or tomorrow Will need IV antibiotics on discharge- Likely vancomycin with dialysis will be the drug of choice per discussion with ID. Vital Signs: Date Time Temp Pulse Resp B/P Pulse Ox O2 Delivery O2 Flow Rate FiO2 08/26/16 07:50 36.7 82 20 134/89 98 Mask 2.0 08/26/16 00:00 97 Mask 2.0 08/25/16 23:15 36.7 93 18 145/82 94 Room Air 08/25/16 21:02 36.6 83 143/77 08/25/16 20:00 97 Mask 2.0 08/25/16 20:00 79 140/87 08/25/16 19:48 83 140/78 08/25/16 19:30 80 127/75 08/25/16 19:15 75 97/41 08/25/16 19:00 89 140/57 08/25/16 18:45 78 118/81 08/25/16 18:30 80 133/75 08/25/16 18:15 82 147/63 08/25/16 18:00 82 131/75 08/25/16 17:45 82 140/87 08/25/16 17:30 82 140/87 08/25/16 17:15 83 142/87 08/25/16 16:53 Mask 2.0 08/25/16 16:00 36.9 92 141/89 Lab Results: Results Past 24 Hours Test 08/25/16 17:23 08/25/16 21:48 08/26/16 07:25 08/26/16 08:11 Range/Units Bedside Glucose 176 116 180 70-99 mg/dl White Blood Count 7.11 4.8-10.8 K/uL Red Blood Count 3.65 4.7-6.1 M/uL Hemoglobin 10.7 14.0-18.0 g/dL Hematocrit 33.5 42-52 % Mean Corpuscular Volume 91.8 80-100 fL Mean Corpuscular Hemoglobin 29.3 25-34 pg Mean Corpuscular Hemoglobin Concent 31.9 32-36 g/dl RDW Standard Deviation 52.3 36.4-46.3 fL RDW Coefficient of Variation 15.5 11.5-14.5 % Platelet Count 152 130-400 K/uL Mean Platelet Volume 9.6 7.4-10.4 fL Sodium Level 139 136-145 mmol/L Potassium Level 4.4 3.5-5.1 mmol/L Chloride Level 103 98-107 mmol/L Carbon Dioxide Level 25 21-32 mmol/L Anion Gap 11.0 3-11 mmol/L Blood Urea Nitrogen 81 7-18 mg/dl Creatinine 4.90 0.60-1.40 mg/dl Est Creatinine Clear Calc Drug Dose 14.7 ml/min Estimated GFR () 14.1 Estimated GFR (Non- 12.2 BUN/Creatinine Ratio 16.5 10-20 Random Glucose 156 70-99 mg/dl Calcium Level 8.9 8.5-10.1 mg/dl
[2016-08-26] MEDS: POLYETHYLENE (MIRALAX) 17 GM PACK PO SCH (12:24)
[2016-08-26] MEDS: CHOLECALCIFEROL 1000 INTER.UNIT TAB PO SCH (12:30)
--- NOTE | 2016-08-26 14:10 | Procedure Note ---
Pre-Mod Sedation Assessment General Date of Moderate Sedation: Aug 26, 2016. Vital Signs: Vital Signs Past 12 Hours Date Time Temp Pulse Resp B/P Pulse Ox O2 Delivery O2 Flow Rate FiO2 08/26/16 14:01 36.5 82 16 142/93 98 Room Air 08/26/16 07:50 36.7 82 20 134/89 98 Mask 2.0 Pre-Sedation Airway Assessment Oral Cavity: Dental Abnormalities Short Thick Neck: Yes Hx of Sleep Apnea: No Smoking Status: Former Smoker Mallampati Classification: Class I ASA Classification: Class II Notes The planned sedation has been discussed with the patient and consent obtained. I have identified the patient, determined the appropriateness of sedation and have assessed the patient immediately prior to the procedure. All medicine(s) and interventions are by my order.
--- NOTE | 2016-08-26 14:11 | Progress Note ---
Progress Note Date of Service Aug 26, 2016. Progress Note Patient for insertion of permcath today. I have discussed the risks options and benefits of the procedure with the patient. The patient understands the risks options and benefits and agrees to the procedure. I have examined the patient, reviewed the History & Physical and in the interval since the performance of the History & Physical I have noted the following changes of clinical significance: No changes noted
[2016-08-26] MEDS ORDERED: HEPARIN SOD (PORCINE) 5000 UNIT/ML 1 ML VIAL ONE (14:23)
[2016-08-26] MEDS ORDERED: FENTANYL CITRATE INJ 50 MCG/1 ML 2 ML VIAL ONE (14:23)
[2016-08-26] MEDS ORDERED: MIDAZOLAM HCL 1 MG/ML 2ML VIAL ONE (14:24)
[2016-08-26] MEDS ORDERED: FENTANYL CITRATE INJ 50 MCG/1 ML 2 ML VIAL IV ONE ×2 (14:43→15:03)
[2016-08-26] MEDS ORDERED: MIDAZOLAM HCL 1 MG/ML 2ML VIAL IV ONE (14:43)
--- NOTE | 2016-08-26 14:48 | CONSULTATION REPORT ---
DATE OF CONSULTATION: 08/23/2016 SUBJECTIVE: The patient was recently admitted to [facility] for treatment of sepsis. The patient is an ongoing wound care patient with a recent epidermal graft to a traumatic wound to the right knee. The patient has no specific complaints regarding the wound area or of his left buttocks region. The patient denies any current fever, chills or night sweats. The patient denies any other systemic complaints. OBJECTIVE: The patient's vital signs were reviewed and found to be unremarkable. The patient is afebrile. The right knee site today shows no appreciable size difference measuring 5.5 x 8.2 x 0.1 cm. There are areas of epidermal bud formation from the recent graft of 1 week ago noted. There is no active drainage or periwound erythema. There is no odor present. The pressure ulcer of the left buttocks appears improved with no evidence of central slough, active drainage or periwound erythema noted. Size is approximately the same as 1 week ago 0.5 x 0.4 x 0.1 cm. ASSESSMENT: 1. Traumatic wound right knee, 1 week post-staged epidermal grafting. 2. Stage II pressure ulcer left buttocks region, stable. PLAN: At this time, no debridement is indicated. The left knee will be dressed with Adaptic Touch, steri-stripped into place followed by a secondary dressing of plain Aquacel and gauze. Outer dressings to be changed daily. The left buttocks region will continue to be dressed with Aquacel AG and Optifoam. The patient will continue to be monitored during his hospital course and will be followed up in the outpatient clinic following discharge.
[2016-08-26] MEDS ORDERED: LIDOCAINE HCL 1% 20 ML VIAL INFIL ONE (14:53)
[2016-08-26] MEDS ORDERED: HEPARIN SOD (PORCINE) 5000 UNIT/ML 1 ML VIAL IV ONE (14:53)
--- NOTE | 2016-08-26 15:11 | Procedure Note ---
Post-Moderate Sedation Plan General Date of Moderate Sedation Aug 26, 2016. Vital Signs: Vital Signs Past 12 Hours Date Time Temp Pulse Resp B/P Pulse Ox O2 Delivery O2 Flow Rate FiO2 08/26/16 14:01 36.5 82 16 142/93 98 Room Air 08/26/16 07:50 36.7 82 20 134/89 98 Mask 2.0 Review - Discharge Plan Post Moderate Sedation Plan: On clinical assessment, the patient appears to have tolerated the conscious sedation without complications. Patient is recovering as anticipated. Patient will continue to be monitored by nursing and may be discharged when conscious sedation discharge criteria are met.
--- NOTE | 2016-08-26 15:12 | [facility] Post Operative Brief Note ---
Immediate Operative Summary Operative Date Aug 26, 2016. Pre-Operative Diagnosis End Stage Renal Disease Post-Operative Diagnosis Same Procedure(s) Performed Perm Catheter Placement Right Jugular Approach Ultrasound Localization of Right Jugular Vein Fluoroscopy for Positioning Removal of Temporary Dialysis Catheter Moderate Conscious Sedation ([id number]) Surgeon Aidan Fly Maker Surgeon(s) Sunday Estimated Blood Loss 5 Findings tip in distal SVC Specimens None Anesthesia Local with conscious sedation Complication(s) None Disposition
--- NOTE | 2016-08-26 15:41 | DIAGNOSTIC IMAGING REPORT ---
DATE OF PROCEDURE: 08/26/2016 PREOPERATIVE DIAGNOSIS: End-stage renal disease in need of vascular access. POSTOPERATIVE DIAGNOSIS: Same. PROCEDURES PERFORMED: 1. Placement of right internal jugular tunneled hemodialysis line 19 cm straight catheter. 2. Removal of right femoral temporary hemodialysis catheter. 3. Conscious Sedation for 24 minutes SURGEON: Cody Bermudez M.D. HAT PARTS CUTTER MACHINE: Adalgisa Brand M.D. EBL: 5 Anesthesia: Local + Conscious Sedation Complications: None apparent Condition: Stable to PACU Indications: Mr. Daniels has end state renal disease on hemodialysis. He had presented to the hospital and was found to be bacteremic. His previous right internal jugular Perm-Cath was removed and a temporary femoral line had been placed. His blood cultures are now clear and his cultured catheter tip was negative so he was advised of the risks and benefits of placing and new right internal jugular Perm-Cath and removing his temporary line. He agreed to undergo the above procedure. PROCEDURE: The patient was brought into the operative suite, placed in supine position, preppred and drapped in the usual fashion. A time out occurred. The right internal jugular vein was identified under ultrasound, it was patent. It was accessed percutaneously under ultrasound guidance. A wire was passed from the IJ into the SVC. Attention was turned to the chest where a small incision was made for the skin insertion site. A catheter was tunneled subcutaneously from this site to the IJ access site. The IJ was then serially dilated and a breakaway sheath was placed. The catheter was placed through the breakaway sheath and the sheath removed. Positioning was confirmed with flouroscopy. The ports where flushed and hepairn was instilled. The catheter was sewn in place. At this time attention was turned to the right groin. The temporary hemodialysis catheter sutures were cut and the catheter was pulled. Pressure was applied until hemostasis was obtained. The patient was then transferred to the PACU in stable condition. He tolerated the procedure well. Dr. Cody Bermudez was present for the entirety of this case MTDD
--- NOTE | 2016-08-26 15:51 | Medical Student: [facility] ---
Immediate Operative Summary Operative Date Aug 26, 2016. Pre-Operative Diagnosis ESRD Post-Operative Diagnosis same Procedure(s) Performed Insertion of perm catheter with U/S localization of R. IJV and fluoroscopy to confirm catheter placement. Removal of temporary dialysis catheter. Surgeon Dr. Bermudez Magnet Placer Surgeon(s) Dr. Brand Estimated Blood Loss 5cc Findings tip of catheter in distal SVC Specimens none Anesthesia local Complication(s) None Disposition Recovery Room / PACU
--- NOTE | 2016-08-26 16:52 | Infectious Disease Progress Nt ---
Progress Note Date of Service Aug 26, 2016. Subjective Pt evaluation today including: conversation w/ patient, physical exam, chart review, lab review, review of studies, review of inpatient medication list WBC count 7.11 today. Creatinine 4.90 today. Patient had perm cath placed this morning on right side. Repeat blood cultures continue to show no growth to date. Patient continues on IV Ceftaroline. All Other Systems: Reviewed and Negative Medications Current Inpatient Medications Medications (Trade) Dose Ordered Sig/Edin Route Start Time Stop Time Status Last Admin Dose Admin Acetaminophen (Tylenol Tab) 650 mg Q4H PRN PO 08/19/16 14:00 09/18/16 13:59 08/19/16 16:41 650 MG Ondansetron HCl (Zofran Inj) 4 mg Q6H PRN IV 08/19/16 14:00 09/18/16 13:59 Insulin Aspart (novoLOG ASPART) SLIDING SCALE If C... ACHS SC 08/19/16 16:15 09/18/16 16:14 08/26/16 12:35 3 UNITS Glucose (Glucose 40% Gel) 15-30 GRAMS 15 GRAMS... UD PRN PO 08/19/16 14:15 09/18/16 14:14 Glucose (Glucose Chew Tab) 4-8 Tablets 4 Tabl... UD PRN PO 08/19/16 14:15 09/18/16 14:14 Dextrose (Dextrose 50% 50ML Syringe) 25-50ML OF 50% DW IV FOR... UD PRN IV 08/19/16 14:15 09/18/16 14:14 Glucagon (Glucagon Inj) 1 mg UD PRN SQ 08/19/16 14:15 09/18/16 14:14 Ascorbic Acid (Vitamin C Tab) 500 mg DAILY PO 08/20/16 09:00 09/19/16 08:59 08/26/16 07:55 500 MG Atorvastatin Calcium (Lipitor Tab) 40 mg HS PO 08/19/16 21:00 09/18/16 20:59 08/25/16 21:10 40 MG Calcium Acetate (Phoslo Cap) 1,334 mg TIDM PO 08/19/16 16:45 09/18/16 17:59 08/25/16 21:12 1,334 MG Salmeterol Xinafoate/ Fluticasone (Advair Diskus 250/50 Inh) 1 puff BID INH 08/19/16 21:00 09/18/16 20:59 08/26/16 07:53 1 PUFF Gabapentin (Neurontin Cap) 200 mg Q8 PO 08/19/16 22:00 09/18/16 21:59 08/26/16 05:50 200 MG Insulin Glargine (Lantus Solostar Pen) 5 unit BID SC 08/19/16 21:00 09/18/16 20:59 Future hold 08/25/16 21:55 5 UNIT Albuterol/ Ipratropium (Combivent Respimat Inh) 1 puffs QID INH 08/19/16 17:00 09/18/16 16:59 08/26/16 12:29 1 PUFFS Lactobacillus Acidophilus (Floranex Tab) 1 tab TID PO 08/19/16 21:00 09/18/16 20:59 08/26/16 07:55 1 TAB Loratadine (Claritin Tab) 10 mg DAILY PO 08/20/16 09:00 09/19/16 08:59 08/26/16 07:54 10 MG Lorazepam (Ativan Tab) 0.5 mg TID PO 08/19/16 21:00 09/18/16 20:59 08/26/16 07:53 0.5 MG Metoprolol Succinate (Toprol Xl Tab) 25 mg BID PO 08/19/16 21:00 09/18/16 20:59 08/26/16 07:55 25 MG Oxycodone HCl (Oxycontin Tab) 30 mg Q8 PO 08/19/16 22:00 09/02/16 21:59 08/26/16 05:50 30 MG Senna/Docusate Sodium (Senokot S Tab) 1 tab HS PO 08/19/16 21:00 09/18/16 20:59 08/23/16 20:47 1 TAB Cholecalciferol (Vitamin D Tab) 5,000 inter.unit DAILY PO 08/20/16 09:00 09/19/16 08:59 08/26/16 12:30 5,000 INTER.UNIT Dexamethasone (Decadron Tab) 2 mg DAILY PO 08/20/16 09:00 09/19/16 08:59 08/26/16 07:54 2 MG Ferrous Sulfate (Feosol Tab) 325 mg DAILY PO 08/20/16 09:00 09/19/16 08:59 08/26/16 07:54 325 MG Polyethylene (Miralax Powder Packet) 17 gm QAM PO 08/20/16 09:00 09/19/16 08:59 08/25/16 08:03 17 GM Miscellaneous Information (Order Awaiting Action) 1 ea QS N/A 08/19/16 16:00 09/18/16 15:59 08/20/16 22:30 1 EA Pantoprazole Sodium 40 mg 40 mg QAM PO 08/20/16 09:00 09/19/16 08:59 08/26/16 07:55 40 MG Ceftaroline Fosamil/Sodium Chloride (Teflaro Inj/Nss 250ml) 256.6667 ml @ 250 mls/hr Q12H IV 08/19/16 18:00 09/02/16 17:59 08/26/16 05:50 250 MLS/HR Miscellaneous Information 1 ea UD PRN N/A 08/19/16 17:15 09/18/16 17:14 Perflutren Lipid Microsphere (Definity) 2 ml PRN PRN IV 08/22/16 07:30 09/21/16 07:29 08/22/16 07:23 2 ML Imipenem/ Cilastatin Sodium 1 ea 1 ea UD PRN N/A 08/22/16 11:15 09/21/16 11:14 Imipenem/ Cilastatin Sodium/ Dextrose (Primaxin Iv/D5 100ml) 110 ml @ 100 mls/hr Q12@0800,2000 IV 08/23/16 08:00 09/01/16 23:59 08/26/16 07:53 100 MLS/HR Oxycodone HCl (Roxicodone Immediate Rel Tab) 5 mg Q6H PRN PO 08/23/16 15:00 09/06/16 14:59 08/26/16 12:30 5 MG Objective Vital Signs Date Time Temp Pulse Resp B/P Pulse Ox O2 Delivery O2 Flow Rate FiO2 08/26/16 15:45 36.9 71 18 123/85 100 Nasal Cannula 2.0 08/26/16 15:35 36.9 75 17 123/82 96 Nasal Cannula 2.0 08/26/16 15:25 36.9 77 16 109/91 96 Room Air 08/26/16 15:15 36.9 78 16 108/94 99 Room Air 08/26/16 14:24 36.5 82 16 142/93 98 Room Air 08/26/16 14:13 Mask 08/26/16 14:01 36.5 82 16 142/93 98 Room Air 08/26/16 07:50 36.7 82 20 134/89 98 Mask 2.0 08/26/16 00:00 97 Mask 2.0 08/25/16 23:15 36.7 93 18 145/82 94 Room Air 08/25/16 21:02 36.6 83 143/77 08/25/16 20:00 97 Mask 2.0 08/25/16 20:00 79 140/87 08/25/16 19:48 83 140/78 08/25/16 19:30 80 127/75 08/25/16 19:15 75 97/41 08/25/16 19:00 89 140/57 08/25/16 18:45 78 118/81 08/25/16 18:30 80 133/75 08/25/16 18:15 82 147/63 08/25/16 18:00 82 131/75 08/25/16 17:45 82 140/87 08/25/16 17:30 82 140/87 08/25/16 17:15 83 142/87 08/25/16 16:53 Mask 2.0 Physical Exam General Appearance: WD/WN, no apparent distress Eyes: normal inspection, sclerae normal ENT: hearing grossly normal Neck: supple, trachea midline Respiratory/Chest: no respiratory distress, no accessory muscle use, + pertinent finding (right neck with perm cath in place) Cardiovascular: regular rate, rhythm Neurologic/Psychiatric: alert, normal mood/affect Skin: normal color, warm/dry Laboratory Results Item Value Date Time Blood Culture - Preliminary Resulted 08/21/16 0913 Blood NO GROWTH TO DATE. Blood Culture - Preliminary Resulted 08/21/16 0907 Blood NO GROWTH TO DATE. Blood Culture - Final Complete 08/20/16 0530 Blood NO GROWTH Blood Culture - Final Complete 08/20/16 0520 Blood NO GROWTH Last 24 Hours Test 08/25/16 17:23 08/25/16 21:48 08/26/16 07:25 08/26/16 08:11 Bedside Glucose 176 mg/dl 116 mg/dl 180 mg/dl White Blood Count 7.11 K/uL Red Blood Count 3.65 M/uL Hemoglobin 10.7 g/dL Hematocrit 33.5 % Mean Corpuscular Volume 91.8 fL Mean Corpuscular Hemoglobin 29.3 pg Mean Corpuscular Hemoglobin Concent 31.9 g/dl RDW Standard Deviation 52.3 fL RDW Coefficient of Variation 15.5 % Platelet Count 152 K/uL Mean Platelet Volume 9.6 fL Sodium Level 139 mmol/L Potassium Level 4.4 mmol/L Chloride Level 103 mmol/L Carbon Dioxide Level 25 mmol/L Anion Gap 11.0 mmol/L Blood Urea Nitrogen 81 mg/dl Creatinine 4.90 mg/dl Est Creatinine Clear Calc Drug Dose 14.7 ml/min Estimated GFR () 14.1 Estimated GFR (Non- 12.2 BUN/Creatinine Ratio 16.5 Random Glucose 156 mg/dl Calcium Level 8.9 mg/dl Test 08/26/16 12:09 Bedside Glucose 205 mg/dl Assessment and Plan Patient with ESRD on HD with questionable infected perm cath and recurrent MRSA bacteremia. Initial blood cultures growing MRSA in 1/2 bottles. Repeat blood cultures showing no growth. Urine culture with Proteus. Continue Ceftaroline for MRSA and IV Primaxin for now while in house due to previously infected right knee wound and delayed healing. Echo did not show vegetations. Preferably would continue patient on IV Ceftaroline after discharge, but not sure how easy this will be with him being at [facility]. We will continue to follow. PROVIDER ADDENDUM: Patient reviewed with Ms. Tapia. Agree with above assessment.
[2016-08-26] MEDS: DOCUSATE SODIUM/SENNA 50/8.6MG TAB PO SCH (19:36)
[2016-08-26] MEDS: ATORVASTATIN 40 MG TAB PO SCH (19:37)
[2016-08-26] MEDS: INSULIN GLARGINE SOLOSTAR 100 UNITS/ML 3 ML PEN SC SCH (21:22)
[2016-08-27] VITALS (14 sets, daily range): BP systolic 13–145; BP diastolic 61–104; PULSE 52–97; TEMP 36.6–37; O2SAT 94–98
[2016-08-27] MEDS: CEFTAROLINE FOSAMIL IV SCH ×2 (05:52→17:27)
[2016-08-27] MEDS: SODIUM CHLORIDE 0.9% IV SCH ×2 (05:52→17:27)
[2016-08-27] MEDS: OXYCODONE HCL 15 MG TABCR (OXYCONTIN) PO SCH ×3 (05:53→20:38)
[2016-08-27] MEDS: GABAPENTIN 100 MG CAP PO SCH ×3 (05:53→20:32)
[2016-08-27] MEDS: LORAZEPAM 0.5 MG TAB PO SCH ×3 (07:38→19:08)
[2016-08-27] MEDS: IMIPENEM/CILASTATIN IV 500 MG in DEXTROSE 5% 100ML 100 ML IV SCH ×2 (07:38→19:12)
[2016-08-27] MEDS: IPRATROPIUM BROMIDE/ALBUTEROL respimat INH INH SCH ×4 (07:38→19:03)
[2016-08-27] MEDS: FLUTICASONE/SALMETEROL 250/50 (ADVAIR) 14 PUFF/1 INHALER INH SCH ×2 (07:38→19:03)
[2016-08-27] MEDS: LORATADINE 10 MG TAB PO SCH (07:38)
[2016-08-27] MEDS: PANTOprazole SOD 40 MG TAB PO SCH (07:39)
[2016-08-27] MEDS: FERROUS SULFATE 325 MG TAB PO SCH (07:39)
[2016-08-27] MEDS: DEXAMETHASONE 1 MG TAB PO SCH (07:39)
[2016-08-27] MEDS: CALCIUM ACETATE 667MG GELCAP PO SCH ×3 (07:39→15:36)
[2016-08-27] MEDS: ASCORBIC ACID 500 MG TAB PO SCH (07:39)
[2016-08-27] MEDS: LACTOBACILLUS ACIDOPHILUS (FLORANEX) TAB PO SCH ×3 (07:39→19:04)
[2016-08-27] MEDS: CHOLECALCIFEROL 1000 INTER.UNIT TAB PO SCH (07:40)
[2016-08-27] MEDS: OXYCODONE HCL IR 5 MG TAB (IMMEDIATE RELEASE) PO PRN (07:40)
[2016-08-27] MEDS: INSULIN GLARGINE SOLOSTAR 100 UNITS/ML 3 ML PEN SC SCH ×2 (07:49→19:12)
[2016-08-27] MEDS: INSULIN ASPART 100 UNITS/ML 3 ML PEN SC SCH ×4 (07:49→20:45)
[2016-08-27] MEDS ORDERED: EPOETIN ALFA 10,000 UNITS/ML VIAL IV. SCH (08:00)
[2016-08-27] MEDS ORDERED: HEPARIN SOD (PORCINE) 1000 UNIT/ML 10 ML VIAL IV SCH ×2 (08:00)
[2016-08-27] MEDS ORDERED: ALBUMIN HUMAN 25% 12.5 GM/50 ML VIAL IV SCH (08:00)
--- NOTE | 2016-08-27 11:08 | Infectious Disease Progress Nt ---
Progress Note Date of Service Aug 27, 2016. Subjective Pt evaluation today including: conversation w/ patient, physical exam, chart review, lab review, review of studies, review of inpatient medication list Glucose has been mildly elevated today in the 200's. WBC count was not repeated this AM. Repeat blood cultures all finalized with no growth. Patient has no pain in the groin today from where his temporary catheter was. He notes some mild swelling and tenderness of the right upper chest wall new perm cath site. All Other Systems: Reviewed and Negative Medications Current Inpatient Medications Medications (Trade) Dose Ordered Sig/Edin Route Start Time Stop Time Status Last Admin Dose Admin Acetaminophen (Tylenol Tab) 650 mg Q4H PRN PO 08/19/16 14:00 09/18/16 13:59 08/19/16 16:41 650 MG Ondansetron HCl (Zofran Inj) 4 mg Q6H PRN IV 08/19/16 14:00 09/18/16 13:59 Insulin Aspart (novoLOG ASPART) SLIDING SCALE If C... ACHS SC 08/19/16 16:15 09/18/16 16:14 08/27/16 07:49 10 UNITS Glucose (Glucose 40% Gel) 15-30 GRAMS 15 GRAMS... UD PRN PO 08/19/16 14:15 09/18/16 14:14 Glucose (Glucose Chew Tab) 4-8 Tablets 4 Tabl... UD PRN PO 08/19/16 14:15 09/18/16 14:14 Dextrose (Dextrose 50% 50ML Syringe) 25-50ML OF 50% DW IV FOR... UD PRN IV 08/19/16 14:15 09/18/16 14:14 Glucagon (Glucagon Inj) 1 mg UD PRN SQ 08/19/16 14:15 09/18/16 14:14 Ascorbic Acid (Vitamin C Tab) 500 mg DAILY PO 08/20/16 09:00 09/19/16 08:59 08/27/16 07:39 500 MG Atorvastatin Calcium (Lipitor Tab) 40 mg HS PO 08/19/16 21:00 09/18/16 20:59 08/26/16 19:37 40 MG Calcium Acetate (Phoslo Cap) 1,334 mg TIDM PO 08/19/16 16:45 09/18/16 17:59 08/27/16 07:39 1,334 MG Salmeterol Xinafoate/ Fluticasone (Advair Diskus 250/50 Inh) 1 puff BID INH 08/19/16 21:00 09/18/16 20:59 08/27/16 07:38 1 PUFF Gabapentin (Neurontin Cap) 200 mg Q8 PO 08/19/16 22:00 09/18/16 21:59 08/27/16 05:53 200 MG Insulin Glargine (Lantus Solostar Pen) 5 unit BID SC 08/19/16 21:00 09/18/16 20:59 Future hold 08/27/16 07:49 5 UNIT Albuterol/ Ipratropium (Combivent Respimat Inh) 1 puffs QID INH 08/19/16 17:00 09/18/16 16:59 08/27/16 07:38 1 PUFFS Lactobacillus Acidophilus (Floranex Tab) 1 tab TID PO 08/19/16 21:00 09/18/16 20:59 08/27/16 07:39 1 TAB Loratadine (Claritin Tab) 10 mg DAILY PO 08/20/16 09:00 09/19/16 08:59 08/27/16 07:38 10 MG Lorazepam (Ativan Tab) 0.5 mg TID PO 08/19/16 21:00 09/18/16 20:59 08/27/16 07:38 0.5 MG Metoprolol Succinate (Toprol Xl Tab) 25 mg BID PO 08/19/16 21:00 09/18/16 20:59 08/26/16 19:37 25 MG Oxycodone HCl (Oxycontin Tab) 30 mg Q8 PO 08/19/16 22:00 09/02/16 21:59 08/27/16 05:53 30 MG Senna/Docusate Sodium (Senokot S Tab) 1 tab HS PO 08/19/16 21:00 09/18/16 20:59 08/26/16 19:36 1 TAB Cholecalciferol (Vitamin D Tab) 5,000 inter.unit DAILY PO 08/20/16 09:00 09/19/16 08:59 08/27/16 07:40 5,000 INTER.UNIT Dexamethasone (Decadron Tab) 2 mg DAILY PO 08/20/16 09:00 09/19/16 08:59 08/27/16 07:39 2 MG Ferrous Sulfate (Feosol Tab) 325 mg DAILY PO 08/20/16 09:00 09/19/16 08:59 08/27/16 07:39 325 MG Polyethylene (Miralax Powder Packet) 17 gm QAM PO 08/20/16 09:00 09/19/16 08:59 08/25/16 08:03 17 GM Miscellaneous Information (Order Awaiting Action) 1 ea QS N/A 08/19/16 16:00 09/18/16 15:59 08/20/16 22:30 1 EA Pantoprazole Sodium 40 mg 40 mg QAM PO 08/20/16 09:00 09/19/16 08:59 08/27/16 07:39 40 MG Ceftaroline Fosamil/Sodium Chloride (Teflaro Inj/Nss 250ml) 256.6667 ml @ 250 mls/hr Q12H IV 08/19/16 18:00 09/02/16 17:59 08/27/16 05:52 250 MLS/HR Miscellaneous Information 1 ea UD PRN N/A 08/19/16 17:15 09/18/16 17:14 Perflutren Lipid Microsphere (Definity) 2 ml PRN PRN IV 08/22/16 07:30 09/21/16 07:29 08/22/16 07:23 2 ML Imipenem/ Cilastatin Sodium 1 ea 1 ea UD PRN N/A 08/22/16 11:15 09/21/16 11:14 Imipenem/ Cilastatin Sodium/ Dextrose (Primaxin Iv/D5 100ml) 110 ml @ 100 mls/hr Q12@0800,2000 IV 08/23/16 08:00 09/01/16 23:59 08/27/16 07:38 100 MLS/HR Oxycodone HCl (Roxicodone Immediate Rel Tab) 5 mg Q6H PRN PO 08/23/16 15:00 09/06/16 14:59 08/27/16 07:40 5 MG Heparin Sodium (Porcine) (Heparin Iv Bolus) 1,000 unit 0800 IV 08/27/16 08:00 08/27/16 18:00 Heparin Sodium (Porcine) (Heparin Iv Bolus) 400 unit Q1H IV 08/27/16 08:00 08/27/16 18:00 Epoetin Simone (Procrit Inj) 10,000 units 0800 IV. 08/27/16 08:00 08/27/16 18:00 Albumin Human (Albumin 25%) 12.5 gm 0800,0930 IV 08/27/16 08:00 08/27/16 18:00 Objective Vital Signs Date Time Temp Pulse Resp B/P Pulse Ox O2 Delivery O2 Flow Rate FiO2 08/27/16 07:59 36.6 87 18 145/90 98 Room Air 08/27/16 07:58 36.6 96 16 136/98 94 Room Air 08/27/16 00:03 36.6 81 20 129/84 97 Room Air 08/27/16 00:00 Mask 2.0 08/26/16 20:00 115/78 08/26/16 20:00 Mask 2.0 08/26/16 15:45 36.9 71 18 123/85 100 Nasal Cannula 2.0 08/26/16 15:45 Nasal Cannula 2.0 08/26/16 15:35 36.9 75 17 123/82 96 Nasal Cannula 2.0 08/26/16 15:25 36.9 77 16 109/91 96 Room Air 08/26/16 15:15 36.9 78 16 108/94 99 Room Air 08/26/16 15:00 36.6 84 18 131/85 96 Nasal Cannula 3.0 08/26/16 14:24 36.5 82 16 142/93 98 Room Air 08/26/16 14:13 Mask 08/26/16 14:01 36.5 82 16 142/93 98 Room Air Physical Exam General Appearance: no apparent distress, + obese Eyes: normal inspection, sclerae normal ENT: hearing grossly normal Neck: supple, trachea midline Respiratory/Chest: no respiratory distress, no accessory muscle use Cardiovascular: regular rate, rhythm Extremities: + pertinent finding (left AKA, Right knee with dressing in place.) Neurologic/Psychiatric: alert, normal mood/affect, oriented x 3 Skin: normal color, warm/dry, no rash Laboratory Results Item Value Date Time Blood Culture - Final Complete 08/21/16 0913 Blood NO GROWTH Blood Culture - Final Complete 08/21/16 0907 Blood NO GROWTH Last 24 Hours Test 08/26/16 12:09 08/26/16 16:47 08/26/16 19:56 08/27/16 07:16 Bedside Glucose 205 mg/dl 243 mg/dl 262 mg/dl 212 mg/dl Assessment and Plan Patient with ESRD on HD with questionable infected perm cath and recurrent MRSA bacteremia. Repeat cultures finalized with no growth. New perm cath in place for dialysis, patient anticipating dialysis this morning. He is currently on IV Ceftaroline and IV Primaxin. He likely will need to transition back to IV Vancomycin alone with dialysis following discharge and will likely be on IV Vancomycin with dialysis indefinitely for suppression of his recurrent infections. I discussed this patient with Dr. Monk as well. We will continue to follow. PROVIDER ADDENDUM: Patient reviewed with Ms. Tapia. Agree with above assessment.
[2016-08-27] MEDS: POLYETHYLENE (MIRALAX) 17 GM PACK PO SCH (14:28)
[2016-08-27] MEDS: METOPROLOL SUCC 25MG EXT REL TAB PO SCH ×2 (14:38→19:04)
--- NOTE | 2016-08-27 19:10 | Progress Note ---
Internal Med Progress Note Date of Service: Aug 27, 2016. Provider Documentation: SUBJECTIVE: Patient is seen and examined at bedside. Had dialysis catheter placed and dialysis today. Denies any chest pain, SOB. offers no complaints. OBJECTIVE: Vital Signs-as noted below Physical Exam: General Appearance:Moderately built and nourished, no apparent distress Head: normocephalic, Atraumatic Eyes: normal inspection, EOMI, PERRLA Neck: supple, Trachea midline Respiratory/Chest: Normal breath sounds, CTA Cardiovascular: S1, S2, No murmur Chest: +dialysis catheter Abdomen/GI:Soft, Non tender, Bowel sounds present Extremities/Musculoskelatal:Left AKA Neurologic/Psych:AAOX3, grossly no focal neurological deficits Skin: Right Knee:Wound + dressing + Left buttock: Stage II ulceration Lab data as noted below. ASSESSMENT & PLAN: MRSA BACTEREMIA HX RIGHT KNEE WOUND INFECTION (pseudomonas, proteus) : Pt presented with fever spikes outpatient, Blood cx drawn on 08/12/16 at [facility] grew MRSA, was scheduled for removal of right perma cath on 08/19/16- removed, catheter tip for culture- negative for any growth. Patient was admitted for intermittent confusion post perm cath removal, fever spikes with recent MRSA bactermia Has been afebrile since hospitalization. No leucocytosis, Lactic acid WNL IV Ceftaroline per ID . Also on Imipenem started on on 08/22/16 for right knee infection. Blood culture: (1/ 2) - MRSA +, Repeat Blood cultures on 08/20/16- Negative, Repeat Blood cx- 08/21/16 x 2 - Negative; Urine cx - Proteus Echo - EF 15-20%, Grade I diastolic dysfunction , Severe global hypokinesis, dilated atrium. Appreciate ID input Plan to be transitioned to IV vancomycin during dialysis indefinitely for suppression of his recurrent infections UTI Proteus Has blair's catheter. Likely Colonization On IV ceftaroline, Imipenem ESRD S/p perm cath removal 08/19/16 Femoral dialysis catheter placed on 08/22/16 and dialysis done. Had difficulty accessing this line S/P tunneled line on 08/27/16 Had HD today Nephrology following Repeat blood cultures:negative Appreciate vascular surgery help HYPERKALEMIA Resolved monitor RIGHT KNEE AND LEFT BUTTOCK ULCERATIONS (STAGE II) S/p skin graft of right knee wound on 08/15/16 Continue wound care CHRONIC SYSTOLIC CHF/ ISCHEMIC CARDIOMYOPATHY EF 15-20% Appears euvolemic PRESUMED CAD Stable Continue beta david, statin DM II Continue Lantus, ISS CHRONIC RESPIRATORY FAILURE Continue home oxygen 3L PRN DVT PX SCD's CODE STATUS: FULL CODE Per preference on recent admission DISPOSITION Resides at [facility] Needs IV antibiotics on discharge Vital Signs: Date Time Temp Pulse Resp B/P Pulse Ox O2 Delivery O2 Flow Rate FiO2 08/27/16 16:00 37.0 68 124/64 08/27/16 16:00 98 Room Air 08/27/16 15:14 36.6 97 18 120/82 98 08/27/16 14:28 53 124/64 08/27/16 14:12 83 100/75 08/27/16 14:00 92 120/104 08/27/16 13:36 93 88/61 08/27/16 13:00 73 101/72 08/27/16 12:30 52 121/76 08/27/16 12:07 86 128/80 08/27/16 11:45 80 13/88 08/27/16 11:40 37.0 88 131/90 08/27/16 07:59 36.6 87 18 145/90 98 Room Air 08/27/16 07:58 36.6 96 16 136/98 94 Room Air 08/27/16 00:03 36.6 81 20 129/84 97 Room Air 08/27/16 00:00 Mask 2.0 Lab Results: Results Past 24 Hours Test 08/27/16 07:16 08/27/16 12:14 08/27/16 17:00 Range/Units Bedside Glucose 212 153 197 70-99 mg/dl
[2016-08-27] MEDS: ATORVASTATIN 40 MG TAB PO SCH (20:32)
[2016-08-27] MEDS: DOCUSATE SODIUM/SENNA 50/8.6MG TAB PO SCH (20:32)
[2016-08-28] MEDS: OXYCODONE HCL IR 5 MG TAB (IMMEDIATE RELEASE) PO PRN ×3 (00:01→18:15)
[2016-08-28 00:07] VITALS: BP 110/78; PULSE 84; TEMP 36.7; O2SAT 99
[2016-08-28] MEDS: CEFTAROLINE FOSAMIL IV SCH ×2 (06:02→18:15)
[2016-08-28] MEDS: SODIUM CHLORIDE 0.9% IV SCH ×2 (06:02→18:15)
[2016-08-28] MEDS: OXYCODONE HCL 15 MG TABCR (OXYCONTIN) PO SCH ×3 (06:02→21:38)
[2016-08-28] MEDS: GABAPENTIN 100 MG CAP PO SCH ×3 (06:03→21:40)
[2016-08-28 07:35] LABS: BUN/CREATININE RATIO 13.4 (10-20); CALCIUM 8.9 mg/dl (8.5-10.1); CREATININE 3.8 mg/dl (0.60-1.40); POTASSIUM 4.6 mmol/L (3.5-5.1)
[2016-08-28 08:02] VITALS: BP 128/86; PULSE 78; TEMP 36.7; O2SAT 99
[2016-08-28] MEDS: IPRATROPIUM BROMIDE/ALBUTEROL respimat INH INH SCH ×4 (08:31→21:40)
[2016-08-28] MEDS: FLUTICASONE/SALMETEROL 250/50 (ADVAIR) 14 PUFF/1 INHALER INH SCH ×2 (08:31→21:41)
[2016-08-28] MEDS: LORATADINE 10 MG TAB PO SCH (08:32)
[2016-08-28] MEDS: LORAZEPAM 0.5 MG TAB PO SCH ×3 (08:32→21:38)
[2016-08-28] MEDS: IMIPENEM/CILASTATIN IV 500 MG in DEXTROSE 5% 100ML 100 ML IV SCH ×2 (08:32→21:38)
[2016-08-28] MEDS: FERROUS SULFATE 325 MG TAB PO SCH (08:32)
[2016-08-28] MEDS: DEXAMETHASONE 1 MG TAB PO SCH (08:32)
[2016-08-28] MEDS: ASCORBIC ACID 500 MG TAB PO SCH (08:33)
[2016-08-28] MEDS: CALCIUM ACETATE 667MG GELCAP PO SCH ×3 (08:33→18:16)
[2016-08-28] MEDS: LACTOBACILLUS ACIDOPHILUS (FLORANEX) TAB PO SCH ×3 (08:33→21:39)
[2016-08-28] MEDS: METOPROLOL SUCC 25MG EXT REL TAB PO SCH ×2 (08:33→21:39)
[2016-08-28] MEDS: PANTOprazole SOD 40 MG TAB PO SCH (08:33)
[2016-08-28] MEDS: CHOLECALCIFEROL 1000 INTER.UNIT TAB PO SCH (08:34)
[2016-08-28] MEDS: INSULIN ASPART 100 UNITS/ML 3 ML PEN SC SCH ×4 (08:40→21:48)
[2016-08-28] MEDS: INSULIN GLARGINE SOLOSTAR 100 UNITS/ML 3 ML PEN SC SCH ×2 (08:41→21:49)
[2016-08-28] MEDS: POLYETHYLENE (MIRALAX) 17 GM PACK PO SCH (10:30)
--- NOTE | 2016-08-28 15:25 | Infectious Disease Progress Nt ---
Progress Note Date of Service Aug 28, 2016. Subjective Pt evaluation today including: conversation w/ patient, physical exam, chart review, lab review, review of studies, review of inpatient medication list Patient is feeling well today. He states that dialysis went well yesterday through new perm cath. Patient's creatinine this morning was 3.8. Electrolytes are stable. Repeat cultures all finalized with no growth. Patient is hoping to go home soon. He complains of only mild tenderness around perm cath site and his right knee pain is well controlled. All Other Systems: Reviewed and Negative Medications Current Inpatient Medications Medications (Trade) Dose Ordered Sig/Edin Route Start Time Stop Time Status Last Admin Dose Admin Acetaminophen (Tylenol Tab) 650 mg Q4H PRN PO 08/19/16 14:00 09/18/16 13:59 08/19/16 16:41 650 MG Ondansetron HCl (Zofran Inj) 4 mg Q6H PRN IV 08/19/16 14:00 09/18/16 13:59 Insulin Aspart (novoLOG ASPART) SLIDING SCALE If C... ACHS SC 08/19/16 16:15 09/18/16 16:14 08/28/16 13:28 10 UNITS Glucose (Glucose 40% Gel) 15-30 GRAMS 15 GRAMS... UD PRN PO 08/19/16 14:15 09/18/16 14:14 Glucose (Glucose Chew Tab) 4-8 Tablets 4 Tabl... UD PRN PO 08/19/16 14:15 09/18/16 14:14 Dextrose (Dextrose 50% 50ML Syringe) 25-50ML OF 50% DW IV FOR... UD PRN IV 08/19/16 14:15 09/18/16 14:14 Glucagon (Glucagon Inj) 1 mg UD PRN SQ 08/19/16 14:15 09/18/16 14:14 Ascorbic Acid (Vitamin C Tab) 500 mg DAILY PO 08/20/16 09:00 09/19/16 08:59 08/28/16 08:33 500 MG Atorvastatin Calcium (Lipitor Tab) 40 mg HS PO 08/19/16 21:00 09/18/16 20:59 08/27/16 20:32 40 MG Calcium Acetate (Phoslo Cap) 1,334 mg TIDM PO 08/19/16 16:45 09/18/16 17:59 08/28/16 08:33 1,334 MG Salmeterol Xinafoate/ Fluticasone (Advair Diskus 250/50 Inh) 1 puff BID INH 08/19/16 21:00 09/18/16 20:59 08/28/16 08:31 1 PUFF Gabapentin (Neurontin Cap) 200 mg Q8 PO 08/19/16 22:00 09/18/16 21:59 08/28/16 13:29 200 MG Insulin Glargine (Lantus Solostar Pen) 5 unit BID SC 08/19/16 21:00 09/18/16 20:59 Future hold 08/28/16 08:41 5 UNIT Albuterol/ Ipratropium (Combivent Respimat Inh) 1 puffs QID INH 08/19/16 17:00 09/18/16 16:59 08/28/16 13:29 1 PUFFS Lactobacillus Acidophilus (Floranex Tab) 1 tab TID PO 08/19/16 21:00 09/18/16 20:59 08/28/16 13:29 1 TAB Loratadine (Claritin Tab) 10 mg DAILY PO 08/20/16 09:00 09/19/16 08:59 08/28/16 08:32 10 MG Lorazepam (Ativan Tab) 0.5 mg TID PO 08/19/16 21:00 09/18/16 20:59 08/28/16 13:36 0.5 MG Metoprolol Succinate (Toprol Xl Tab) 25 mg BID PO 08/19/16 21:00 09/18/16 20:59 08/28/16 08:33 25 MG Oxycodone HCl (Oxycontin Tab) 30 mg Q8 PO 08/19/16 22:00 09/02/16 21:59 08/28/16 13:36 30 MG Senna/Docusate Sodium (Senokot S Tab) 1 tab HS PO 08/19/16 21:00 09/18/16 20:59 08/27/16 20:32 1 TAB Cholecalciferol (Vitamin D Tab) 5,000 inter.unit DAILY PO 08/20/16 09:00 09/19/16 08:59 08/28/16 08:34 5,000 INTER.UNIT Dexamethasone (Decadron Tab) 2 mg DAILY PO 08/20/16 09:00 09/19/16 08:59 08/28/16 08:32 2 MG Ferrous Sulfate (Feosol Tab) 325 mg DAILY PO 08/20/16 09:00 09/19/16 08:59 08/28/16 08:32 325 MG Polyethylene (Miralax Powder Packet) 17 gm QAM PO 08/20/16 09:00 09/19/16 08:59 08/28/16 10:30 17 GM Miscellaneous Information (Order Awaiting Action) 1 ea QS N/A 08/19/16 16:00 09/18/16 15:59 08/20/16 22:30 1 EA Pantoprazole Sodium 40 mg 40 mg QAM PO 08/20/16 09:00 09/19/16 08:59 08/28/16 08:33 40 MG Ceftaroline Fosamil/Sodium Chloride (Teflaro Inj/Nss 250ml) 256.6667 ml @ 250 mls/hr Q12H IV 08/19/16 18:00 09/02/16 17:59 08/28/16 06:02 250 MLS/HR Miscellaneous Information 1 ea UD PRN N/A 08/19/16 17:15 09/18/16 17:14 Perflutren Lipid Microsphere (Definity) 2 ml PRN PRN IV 08/22/16 07:30 09/21/16 07:29 08/22/16 07:23 2 ML Imipenem/ Cilastatin Sodium 1 ea 1 ea UD PRN N/A 08/22/16 11:15 09/21/16 11:14 Imipenem/ Cilastatin Sodium/ Dextrose (Primaxin Iv/D5 100ml) 110 ml @ 100 mls/hr Q12@0800,2000 IV 08/23/16 08:00 09/01/16 23:59 08/28/16 08:32 100 MLS/HR Oxycodone HCl (Roxicodone Immediate Rel Tab) 5 mg Q6H PRN PO 08/23/16 15:00 09/06/16 14:59 08/28/16 08:45 5 MG Objective Vital Signs Date Time Temp Pulse Resp B/P Pulse Ox O2 Delivery O2 Flow Rate FiO2 08/28/16 11:06 Mask 2.0 08/28/16 08:02 36.7 78 16 128/86 99 Room Air 08/28/16 00:15 Mask 2.0 08/28/16 00:07 36.7 84 20 110/78 99 Room Air 08/27/16 16:00 37.0 68 124/64 08/27/16 16:00 98 Room Air Physical Exam General Appearance: no apparent distress, + obese Eyes: normal inspection, sclerae normal ENT: hearing grossly normal Neck: supple, + pertinent finding (some bruising and mild tenderness noted around perm cath) Respiratory/Chest: no respiratory distress, no accessory muscle use Extremities: + pertinent finding (left AKA, right knee with dressing in place- C/D/I) Neurologic/Psychiatric: alert, normal mood/affect Skin: normal color, warm/dry Laboratory Results Last 24 Hours Test 08/27/16 17:00 08/27/16 20:40 08/28/16 06:15 08/28/16 07:52 Bedside Glucose 197 mg/dl 160 mg/dl 82 mg/dl Sodium Level 141 mmol/L Potassium Level 4.6 mmol/L Chloride Level 104 mmol/L Carbon Dioxide Level 27 mmol/L Anion Gap 10.0 mmol/L Blood Urea Nitrogen 51 mg/dl Creatinine 3.80 mg/dl Est Creatinine Clear Calc Drug Dose 19.0 ml/min Estimated GFR () 19.2 Estimated GFR (Non- 16.6 BUN/Creatinine Ratio 13.4 Random Glucose 86 mg/dl Calcium Level 8.9 mg/dl Test 08/28/16 11:46 Bedside Glucose 237 mg/dl Assessment and Plan Patient with ESRD on HD with questionable infected perm cath and recurrent MRSA bacteremia. Repeat cultures finalized with no growth. New perm cath in place for dialysis. He is currently on IV Ceftaroline and IV Primaxin. He will need to transition back to IV Vancomycin alone with dialysis following discharge and will likely be on IV Vancomycin with dialysis indefinitely for suppression of his recurrent infections. He will also need follow up with Dr. Monk at the wound care center following D/C. Otherwise, he is OK for D/C from ID perspective. Thanks PROVIDER ADDENDUM: Patient reviewed with Ms. Tapia. Agree with above assessment.
[2016-08-28 15:31] VITALS: BP 123/83; PULSE 77; TEMP 36.6; O2SAT 96
[2016-08-28 16:05] VITALS: O2SAT 96
--- NOTE | 2016-08-28 16:50 | Progress Note ---
Internal Med Progress Note Date of Service: Aug 28, 2016. Provider Documentation: SUBJECTIVE: Patient is seen and examined at bedside. Doing well today. Denies any chest pain , SOB. offers no complaints. Planned for dialysis tomorrow. OBJECTIVE: Vital Signs-as noted below Physical Exam: General Appearance:Moderately built and nourished, no apparent distress Head: normocephalic, Atraumatic Eyes: normal inspection, EOMI, PERRLA Neck: supple, Trachea midline Respiratory/Chest: Normal breath sounds, CTA Cardiovascular: S1, S2, No murmur Chest: +dialysis catheter Abdomen/GI:Soft, Non tender, Bowel sounds present Extremities/Musculoskelatal:Left AKA Neurologic/Psych:AAOX3, grossly no focal neurological deficits Skin: Right Knee:Wound + dressing + Left buttock: Stage II ulceration Lab data as noted below. ASSESSMENT & PLAN: MRSA BACTEREMIA HX RIGHT KNEE WOUND INFECTION (pseudomonas, proteus) : Pt presented with fever spikes outpatient, Blood cx drawn on 08/12/16 at [facility] grew MRSA, was scheduled for removal of right perma cath on 08/19/16- removed, catheter tip for culture- negative for any growth. Patient was admitted for intermittent confusion post perm cath removal, fever spikes with recent MRSA bactermia Has been afebrile since hospitalization. No leucocytosis, Lactic acid WNL IV Ceftaroline per ID . Also on Imipenem started on on 08/22/16 for right knee infection. Blood culture: (1/ 2) - MRSA +, Repeat Blood cultures on 08/20/16- Negative, Repeat Blood cx- 08/21/16 x 2 - Negative; Urine cx - Proteus Echo - EF 15-20%, Grade I diastolic dysfunction , Severe global hypokinesis, dilated atrium. Appreciate ID input Plan to be transitioned to IV vancomycin during dialysis indefinitely for suppression of his recurrent infections UTI Proteus Has blair's catheter. Likely Colonization On IV ceftaroline, Imipenem ESRD S/p perm cath removal 08/19/16 Femoral dialysis catheter placed on 08/22/16 and dialysis done. Had difficulty accessing this line S/P tunneled line on 08/27/16 Nephrology following Repeat blood cultures:negative Appreciate vascular surgery help Planned for dialysis tomorrow HYPERKALEMIA Resolved monitor RIGHT KNEE AND LEFT BUTTOCK ULCERATIONS (STAGE II) S/p skin graft of right knee wound on 08/15/16 Continue wound care CHRONIC SYSTOLIC CHF/ ISCHEMIC CARDIOMYOPATHY EF 15-20% Appears euvolemic PRESUMED CAD Stable Continue beta david, statin DM II Continue Lantus, ISS CHRONIC RESPIRATORY FAILURE Continue home oxygen 3L PRN DVT PX SCD's CODE STATUS: FULL CODE Per preference on recent admission DISPOSITION Resides at [facility] Needs IV Vancomycin during dialysis Plan to discharge to [facility] tomorrow after dialysis Needs follow up with Dr. Monk at the wound care center following discharge Vital Signs: Date Time Temp Pulse Resp B/P Pulse Ox O2 Delivery O2 Flow Rate FiO2 08/28/16 15:31 36.6 77 18 123/83 96 Room Air 08/28/16 11:06 Mask 2.0 08/28/16 08:02 36.7 78 16 128/86 99 Room Air 08/28/16 00:15 Mask 2.0 08/28/16 00:07 36.7 84 20 110/78 99 Room Air Lab Results: Results Past 24 Hours Test 08/27/16 20:40 08/28/16 06:15 08/28/16 07:52 08/28/16 11:46 Range/Units Bedside Glucose 160 82 237 70-99 mg/dl Sodium Level 141 136-145 mmol/L Potassium Level 4.6 3.5-5.1 mmol/L Chloride Level 104 98-107 mmol/L Carbon Dioxide Level 27 21-32 mmol/L Anion Gap 10.0 3-11 mmol/L Blood Urea Nitrogen 51 7-18 mg/dl Creatinine 3.80 0.60-1.40 mg/dl Est Creatinine Clear Calc Drug Dose 19.0 ml/min Estimated GFR () 19.2 Estimated GFR (Non- 16.6 BUN/Creatinine Ratio 13.4 10-20 Random Glucose 86 70-99 mg/dl Calcium Level 8.9 8.5-10.1 mg/dl Test 08/28/16 16:33 Range/Units Bedside Glucose 200 70-99 mg/dl
[2016-08-28] MEDS: DOCUSATE SODIUM/SENNA 50/8.6MG TAB PO SCH (21:39)
[2016-08-28] MEDS: ATORVASTATIN 40 MG TAB PO SCH (21:40)
[2016-08-29] VITALS (16 sets, daily range): BP systolic 100–137; BP diastolic 53–85; PULSE 55–88; TEMP 36.3–36.9; O2SAT 92–100
[2016-08-29] MEDS: OXYCODONE HCL IR 5 MG TAB (IMMEDIATE RELEASE) PO PRN ×3 (00:03→16:52)
[2016-08-29] MEDS: SODIUM CHLORIDE 0.9% IV SCH ×2 (06:39→18:03)
[2016-08-29] MEDS: CEFTAROLINE FOSAMIL IV SCH ×2 (06:39→18:03)
[2016-08-29] MEDS: GABAPENTIN 100 MG CAP PO SCH ×3 (06:40→20:54)
[2016-08-29] MEDS: OXYCODONE HCL 15 MG TABCR (OXYCONTIN) PO SCH ×3 (06:41→21:45)
[2016-08-29] MEDS ORDERED: EPOETIN ALFA INJ 12,000 UNITS in SYRINGE 0 ML IV. SCH (08:00)
[2016-08-29] MEDS ORDERED: HEPARIN SOD (PORCINE) 1000 UNIT/ML 10 ML VIAL IV SCH ×2 (08:00)
[2016-08-29] MEDS ORDERED: EPOETIN ALFA 10,000 UNITS/ML VIAL IV. ONE (08:00)
[2016-08-29] MEDS: LORAZEPAM 0.5 MG TAB PO SCH ×3 (09:24→21:45)
[2016-08-29] MEDS: IPRATROPIUM BROMIDE/ALBUTEROL respimat INH INH SCH ×4 (09:24→20:51)
[2016-08-29] MEDS: FLUTICASONE/SALMETEROL 250/50 (ADVAIR) 14 PUFF/1 INHALER INH SCH ×2 (09:24→20:50)
[2016-08-29] MEDS: LACTOBACILLUS ACIDOPHILUS (FLORANEX) TAB PO SCH ×3 (09:25→20:52)
[2016-08-29] MEDS: CALCIUM ACETATE 667MG GELCAP PO SCH ×3 (09:26→16:53)
[2016-08-29] MEDS: INSULIN GLARGINE SOLOSTAR 100 UNITS/ML 3 ML PEN SC SCH ×2 (09:32→22:05)
[2016-08-29] MEDS: INSULIN ASPART 100 UNITS/ML 3 ML PEN SC SCH ×4 (09:34→22:04)
--- NOTE | 2016-08-29 10:17 | Dialysis Progress Note ---
Nephrology Dialysis Note Date of Service: Aug 29, 2016. Subjective no c/o >> no dyspnea, no n/v/ no rigors; tolerating po; bowels moving better ( missed seeing him on 08/27 d/t severe constipation/straining on bedpan) Objective Date Time Temp Pulse Resp B/P Pulse Ox O2 Delivery O2 Flow Rate FiO2 08/29/16 09:40 84 132/83 08/29/16 09:35 36.8 87 128/81 08/29/16 07:48 36.8 79 18 125/82 99 Room Air 08/29/16 00:25 36.8 73 20 126/84 99 Room Air 08/29/16 00:00 Room Air 2.0 Nasal Cannula 08/28/16 16:05 96 Room Air 2.0 08/28/16 15:31 36.6 77 18 123/83 96 Room Air 08/28/16 11:06 Mask 2.0 Physical Exam: General-aaox3, on ra, nad Eyes-no scleral icterus ENT-mmm Neck-supple Lungs-clear but very diminished Heart-regular Abdomen-bs+ s/nt/nd Extremities-+1 edema, right knee wrapped, left aka Neuro-fowler, fluent speech -chronic blair Current Inpatient Medications Medications (Trade) Dose Ordered Sig/Edin Route Start Time Stop Time Status Last Admin Dose Admin Acetaminophen (Tylenol Tab) 650 mg Q4H PRN PO 08/19/16 14:00 09/18/16 13:59 08/19/16 16:41 650 MG Ondansetron HCl (Zofran Inj) 4 mg Q6H PRN IV 08/19/16 14:00 09/18/16 13:59 Insulin Aspart (novoLOG ASPART) SLIDING SCALE If C... ACHS SC 08/19/16 16:15 09/18/16 16:14 08/29/16 09:34 6 UNITS Glucose (Glucose 40% Gel) 15-30 GRAMS 15 GRAMS... UD PRN PO 08/19/16 14:15 09/18/16 14:14 Glucose (Glucose Chew Tab) 4-8 Tablets 4 Tabl... UD PRN PO 08/19/16 14:15 09/18/16 14:14 Dextrose (Dextrose 50% 50ML Syringe) 25-50ML OF 50% DW IV FOR... UD PRN IV 08/19/16 14:15 09/18/16 14:14 Glucagon (Glucagon Inj) 1 mg UD PRN SQ 08/19/16 14:15 09/18/16 14:14 Ascorbic Acid (Vitamin C Tab) 500 mg DAILY PO 08/20/16 09:00 09/19/16 08:59 08/28/16 08:33 500 MG Atorvastatin Calcium (Lipitor Tab) 40 mg HS PO 08/19/16 21:00 09/18/16 20:59 08/28/16 21:40 40 MG Calcium Acetate (Phoslo Cap) 1,334 mg TIDM PO 08/19/16 16:45 09/18/16 17:59 08/29/16 09:26 1,334 MG Salmeterol Xinafoate/ Fluticasone (Advair Diskus 250/50 Inh) 1 puff BID INH 08/19/16 21:00 09/18/16 20:59 08/29/16 09:24 1 PUFF Gabapentin (Neurontin Cap) 200 mg Q8 PO 08/19/16 22:00 09/18/16 21:59 08/29/16 06:40 200 MG Insulin Glargine (Lantus Solostar Pen) 5 unit BID SC 08/19/16 21:00 09/18/16 20:59 Future hold 08/29/16 09:32 5 UNIT Albuterol/ Ipratropium (Combivent Respimat Inh) 1 puffs QID INH 08/19/16 17:00 09/18/16 16:59 08/29/16 09:24 1 PUFFS Lactobacillus Acidophilus (Floranex Tab) 1 tab TID PO 08/19/16 21:00 09/18/16 20:59 08/28/16 21:39 1 TAB Loratadine (Claritin Tab) 10 mg DAILY PO 08/20/16 09:00 09/19/16 08:59 08/28/16 08:32 10 MG Lorazepam (Ativan Tab) 0.5 mg TID PO 08/19/16 21:00 09/18/16 20:59 08/28/16 21:38 0.5 MG Metoprolol Succinate (Toprol Xl Tab) 25 mg BID PO 08/19/16 21:00 09/18/16 20:59 08/28/16 21:39 25 MG Oxycodone HCl (Oxycontin Tab) 30 mg Q8 PO 08/19/16 22:00 09/02/16 21:59 08/29/16 06:41 30 MG Senna/Docusate Sodium (Senokot S Tab) 1 tab HS PO 08/19/16 21:00 09/18/16 20:59 08/28/16 21:39 1 TAB Cholecalciferol (Vitamin D Tab) 5,000 inter.unit DAILY PO 08/20/16 09:00 09/19/16 08:59 08/28/16 08:34 5,000 INTER.UNIT Dexamethasone (Decadron Tab) 2 mg DAILY PO 08/20/16 09:00 09/19/16 08:59 08/28/16 08:32 2 MG Ferrous Sulfate (Feosol Tab) 325 mg DAILY PO 08/20/16 09:00 09/19/16 08:59 08/28/16 08:32 325 MG Polyethylene (Miralax Powder Packet) 17 gm QAM PO 08/20/16 09:00 09/19/16 08:59 08/28/16 10:30 17 GM Miscellaneous Information (Order Awaiting Action) 1 ea QS N/A 08/19/16 16:00 09/18/16 15:59 08/20/16 22:30 1 EA Pantoprazole Sodium 40 mg 40 mg QAM PO 08/20/16 09:00 09/19/16 08:59 08/28/16 08:33 40 MG Ceftaroline Fosamil/Sodium Chloride (Teflaro Inj/Nss 250ml) 256.6667 ml @ 250 mls/hr Q12H IV 08/19/16 18:00 09/02/16 17:59 08/29/16 06:39 250 MLS/HR Miscellaneous Information 1 ea UD PRN N/A 08/19/16 17:15 09/18/16 17:14 Perflutren Lipid Microsphere (Definity) 2 ml PRN PRN IV 08/22/16 07:30 09/21/16 07:29 08/22/16 07:23 2 ML Imipenem/ Cilastatin Sodium 1 ea 1 ea UD PRN N/A 08/22/16 11:15 09/21/16 11:14 Imipenem/ Cilastatin Sodium/ Dextrose (Primaxin Iv/D5 100ml) 110 ml @ 100 mls/hr Q12@0800,2000 IV 08/23/16 08:00 09/01/16 23:59 08/28/16 21:38 100 MLS/HR Oxycodone HCl (Roxicodone Immediate Rel Tab) 5 mg Q6H PRN PO 08/23/16 15:00 09/06/16 14:59 08/29/16 09:28 5 MG Last 24 Hours Test 08/28/16 11:46 08/28/16 16:33 08/28/16 21:09 08/29/16 07:51 Bedside Glucose 237 mg/dl 200 mg/dl 231 mg/dl 140 mg/dl Assessment & Plan 56 yo male with esrd with positive blood cultures, had tunneled line removed. had temporary line placed 08/22. got new tdc 08/26 ESRD-seen on dialysis today. plan to maintain a schedule while inhouse. recurrent bacteremia >> blood cultures from 08/19-one of two positive; f/u blood cxs 08/21 and tip negative. urine culture positive for proteus. --ID recommends indefinite vanco; d/w Dr Flores his outpt wellness consultant > vanco will be given at outpt HD but defer to Inf Dzs and/or pcp to order/manage levels ; pt will need to bring abtx w/ him to tx anemia of renal failure-hg levels are stable in the 10s. prn procrit. Care coordinated w/ Dr Smith. Appreciate consult; will follow with you.
[2016-08-29] MEDS: IMIPENEM/CILASTATIN IV 500 MG in DEXTROSE 5% 100ML 100 ML IV SCH ×2 (13:22→21:45)
[2016-08-29] MEDS: METOPROLOL SUCC 25MG EXT REL TAB PO SCH ×2 (13:23→20:53)
[2016-08-29] MEDS: FERROUS SULFATE 325 MG TAB PO SCH (13:24)
[2016-08-29] MEDS: POLYETHYLENE (MIRALAX) 17 GM PACK PO SCH (13:24)
[2016-08-29] MEDS: DEXAMETHASONE 1 MG TAB PO SCH (13:24)
[2016-08-29] MEDS: ASCORBIC ACID 500 MG TAB PO SCH (13:24)
[2016-08-29] MEDS: LORATADINE 10 MG TAB PO SCH (13:24)
[2016-08-29] MEDS: PANTOprazole SOD 40 MG TAB PO SCH (13:25)
[2016-08-29] MEDS: CHOLECALCIFEROL 1000 INTER.UNIT TAB PO SCH (13:25)
--- NOTE | 2016-08-29 13:46 | Progress Note ---
Internal Med Progress Note Date of Service: Aug 29, 2016. Provider Documentation: SUBJECTIVE: Patient is seen and examined at bedside. States feeling very weak after dialysis today. Had BM today. Denies any chest pain, SOB. offers no complaints. OBJECTIVE: Vital Signs-as noted below Physical Exam: General Appearance:Moderately built and nourished, no apparent distress Head: normocephalic, Atraumatic Eyes: normal inspection, EOMI, PERRLA Neck: supple, Trachea midline Respiratory/Chest: Normal breath sounds, CTA Cardiovascular: S1, S2, No murmur Chest: +dialysis catheter Abdomen/GI:Soft, Non tender, Bowel sounds present Extremities/Musculoskelatal:Left AKA Neurologic/Psych:AAOX3, grossly no focal neurological deficits Skin: Right Knee:Wound + dressing + Left buttock: Stage II ulceration Lab data as noted below. ASSESSMENT & PLAN: MRSA BACTEREMIA HX RIGHT KNEE WOUND INFECTION (pseudomonas, proteus) : Pt presented with fever spikes outpatient, Blood cx drawn on 08/12/16 at [facility] grew MRSA, was scheduled for removal of right perma cath on 08/19/16, catheter tip for culture-negative for any growth. Patient was admitted for intermittent confusion post perm cath removal, fever spikes with recent MRSA bactermia Has been afebrile since hospitalization. No leucocytosis, Lactic acid WNL IV Ceftaroline per ID . Also on Imipenem started on on 08/22/16 for right knee infection. Blood culture: (1/ 2) - MRSA +, Repeat Blood cultures on 08/20/16- Negative, Repeat Blood cx- 08/21/16 x 2 - Negative; Urine cx - Proteus Echo - EF 15-20%, Grade I diastolic dysfunction , Severe global hypokinesis, dilated atrium. Appreciate ID input Plan to be transitioned to IV vancomycin during dialysis indefinitely for suppression of his recurrent infections after discharge UTI Proteus Has blair's catheter. Likely Colonization On IV ceftaroline, Imipenem ESRD S/p perm cath removal 08/19/16 Femoral dialysis catheter placed on 08/22/16 and dialysis done. S/P tunneled line on 08/27/16 Nephrology following Repeat blood cultures:negative Appreciate vascular surgery help Dialysis per nephrology HYPERKALEMIA Resolved monitor RIGHT KNEE AND LEFT BUTTOCK ULCERATIONS (STAGE II) S/p skin graft of right knee wound on 08/15/16 Continue wound care CHRONIC SYSTOLIC CHF/ ISCHEMIC CARDIOMYOPATHY EF 15-20% Appears euvolemic PRESUMED CAD Stable Continue beta david, statin DM II Continue Lantus, ISS CHRONIC RESPIRATORY FAILURE Continue home oxygen 3L PRN DVT PX SCD's CODE STATUS: FULL CODE DISPOSITION Resides at [facility] Needs IV Vancomycin during dialysis Plan to discharge to [facility] tomorrow if stable Needs follow up with Dr. Monk at the wound care center following discharge Vital Signs: Date Time Temp Pulse Resp B/P Pulse Ox O2 Delivery O2 Flow Rate FiO2 08/29/16 12:33 64 116/72 08/29/16 11:59 80 109/55 08/29/16 11:30 86 102/58 08/29/16 11:04 72 103/70 08/29/16 10:25 55 100/77 08/29/16 10:15 84 132/83 08/29/16 10:00 86 137/81 08/29/16 09:40 84 132/83 08/29/16 09:35 36.8 87 128/81 08/29/16 09:30 99 Nasal Cannula 2.0 08/29/16 07:48 36.8 79 18 125/82 99 Room Air 08/29/16 00:25 36.8 73 20 126/84 99 Room Air 08/29/16 00:00 Room Air 2.0 Nasal Cannula 08/28/16 16:05 96 Room Air 2.0 08/28/16 15:31 36.6 77 18 123/83 96 Room Air Lab Results: Results Past 24 Hours Test 08/28/16 16:33 08/28/16 21:09 08/29/16 07:51 08/29/16 11:36 Range/Units Bedside Glucose 200 231 140 101 70-99 mg/dl
[2016-08-29] MEDS: ATORVASTATIN 40 MG TAB PO SCH (20:53)
[2016-08-29] MEDS: DOCUSATE SODIUM/SENNA 50/8.6MG TAB PO SCH (20:53)
[2016-08-30] VITALS (19 sets, daily range): BP systolic 85–133; BP diastolic 26–92; PULSE 51–96; TEMP 36.5–37; O2SAT 92–100
[2016-08-30] MEDS: GABAPENTIN 100 MG CAP PO SCH ×3 (06:07→21:54)
[2016-08-30] MEDS: OXYCODONE HCL 15 MG TABCR (OXYCONTIN) PO SCH ×3 (06:07→21:53)
[2016-08-30] MEDS: CEFTAROLINE FOSAMIL IV SCH ×2 (06:14→18:53)
[2016-08-30] MEDS: SODIUM CHLORIDE 0.9% IV SCH ×2 (06:14→18:53)
[2016-08-30 06:47] LABS: BUN/CREATININE RATIO 12.3 (10-20); CALCIUM 8.6 mg/dl (8.5-10.1); CREATININE 3.2 mg/dl (0.60-1.40); MAGNESIUM 2.4 mg/dl (1.8-2.4); POTASSIUM 4.6 mmol/L (3.5-5.1)
[2016-08-30] MEDS: OXYCODONE HCL IR 5 MG TAB (IMMEDIATE RELEASE) PO PRN ×2 (08:22→19:04)
[2016-08-30] MEDS: IMIPENEM/CILASTATIN IV 500 MG in DEXTROSE 5% 100ML 100 ML IV SCH ×2 (08:23→21:51)
[2016-08-30] MEDS: FERROUS SULFATE 325 MG TAB PO SCH (08:24)
[2016-08-30] MEDS: CHOLECALCIFEROL 1000 INTER.UNIT TAB PO SCH (08:24)
[2016-08-30] MEDS: LACTOBACILLUS ACIDOPHILUS (FLORANEX) TAB PO SCH ×3 (08:24→21:52)
[2016-08-30] MEDS: LORATADINE 10 MG TAB PO SCH (08:24)
[2016-08-30] MEDS: METOPROLOL SUCC 25MG EXT REL TAB PO SCH ×2 (08:24→21:52)
[2016-08-30] MEDS: CALCIUM ACETATE 667MG GELCAP PO SCH ×3 (08:24→18:30)
[2016-08-30] MEDS: FLUTICASONE/SALMETEROL 250/50 (ADVAIR) 14 PUFF/1 INHALER INH SCH ×2 (08:25→21:50)
[2016-08-30] MEDS: ASCORBIC ACID 500 MG TAB PO SCH (08:25)
[2016-08-30] MEDS: IPRATROPIUM BROMIDE/ALBUTEROL respimat INH INH SCH ×4 (08:25→21:50)
[2016-08-30] MEDS: POLYETHYLENE (MIRALAX) 17 GM PACK PO SCH (08:26)
[2016-08-30] MEDS: DEXAMETHASONE 1 MG TAB PO SCH (08:26)
[2016-08-30] MEDS: PANTOprazole SOD 40 MG TAB PO SCH (08:26)
[2016-08-30] MEDS: INSULIN ASPART 100 UNITS/ML 3 ML PEN SC SCH ×4 (08:40→22:01)
[2016-08-30] MEDS: INSULIN GLARGINE SOLOSTAR 100 UNITS/ML 3 ML PEN SC SCH ×2 (08:41→22:00)
[2016-08-30] MEDS: LORAZEPAM 0.5 MG TAB PO SCH ×3 (08:41→21:51)
--- NOTE | 2016-08-30 13:12 | Progress Note ---
Internal Med Progress Note Date of Service: Aug 30, 2016. Provider Documentation: SUBJECTIVE: Patient is seen and examined at bedside. States having some leg pain after physical therapy today. Otherwise feels well. Planned for HD today. Denies any chest pain, SOB. offers no complaints. OBJECTIVE: Vital Signs-as noted below Physical Exam: General Appearance:Moderately built and nourished, no apparent distress Head: normocephalic, Atraumatic Eyes: normal inspection, EOMI, PERRLA Neck: supple, Trachea midline Respiratory/Chest: Normal breath sounds, CTA Cardiovascular: S1, S2, No murmur Chest: +dialysis catheter Abdomen/GI:Soft, Non tender, Bowel sounds present Extremities/Musculoskelatal:Left AKA Neurologic/Psych:AAOX3, grossly no focal neurological deficits Skin: Right Knee:Wound + dressing + Left buttock: Stage II ulceration Lab data as noted below. ASSESSMENT & PLAN: MRSA BACTEREMIA HX RIGHT KNEE WOUND INFECTION (pseudomonas, proteus) : Pt presented with fever spikes outpatient, Blood cx drawn on 08/12/16 at [facility] grew MRSA, was scheduled for removal of right perma cath on 08/19/16, catheter tip for culture-negative for any growth. Patient was admitted for intermittent confusion post perm cath removal, fever spikes with recent MRSA bactermia Has been afebrile since hospitalization. No leucocytosis, Lactic acid WNL IV Ceftaroline per ID . Also on Imipenem started on on 08/22/16 for right knee infection. Blood culture: (1/ 2) - MRSA +, Repeat Blood cultures on 08/20/16- Negative, Repeat Blood cx- 08/21/16 x 2 - Negative; Urine cx - Proteus Echo - EF 15-20%, Grade I diastolic dysfunction , Severe global hypokinesis, dilated atrium. Appreciate ID input Plan to be transitioned to IV vancomycin during dialysis indefinitely for suppression of his recurrent infections after discharge Continue IV antibiotics while inpatient UTI Proteus Has Butler's catheter. Likely Colonization On IV ceftaroline, Imipenem ESRD S/p perm cath removal 08/19/16 Femoral dialysis catheter placed on 08/22/16 and dialysis done. S/P tunneled line on 08/27/16 Nephrology following Repeat blood cultures:negative Appreciate vascular surgery help Dialysis per nephrology Planned for HD today HYPERKALEMIA Resolved monitor RIGHT KNEE AND LEFT BUTTOCK ULCERATIONS (STAGE II) S/p skin graft of right knee wound on 08/15/16 Continue wound care CHRONIC SYSTOLIC CHF/ ISCHEMIC CARDIOMYOPATHY EF 15-20% Appears euvolemic PRESUMED CAD Stable Continue beta david, statin DM II Continue Lantus, ISS CHRONIC RESPIRATORY FAILURE Continue home oxygen 3L PRN DVT PX SCD's CODE STATUS: FULL CODE DISPOSITION Resides at [facility] Needs IV Vancomycin during dialysis Plan to discharge to [facility] tomorrow. Socail worker made aware. Needs follow up with Dr. Monk at the wound care center following discharge Vital Signs: Date Time Temp Pulse Resp B/P Pulse Ox O2 Delivery O2 Flow Rate FiO2 08/30/16 08:30 98 Nasal Cannula 2.0 08/30/16 07:52 37.0 78 16 132/92 98 08/30/16 07:22 36.5 77 18 133/89 100 08/30/16 00:22 92 Nasal Cannula 2.0 08/29/16 23:53 36.9 75 20 119/85 100 Room Air 08/29/16 22:00 92 Nasal Cannula 2.0 08/29/16 15:18 36.3 88 24 124/81 92 Nasal Cannula 3.0 Lab Results: Results Past 24 Hours Test 08/29/16 16:50 08/29/16 20:13 08/30/16 05:27 08/30/16 07:44 Range/Units Bedside Glucose 156 262 89 70-99 mg/dl Sodium Level 138 136-145 mmol/L Potassium Level 4.6 3.5-5.1 mmol/L Chloride Level 102 98-107 mmol/L Carbon Dioxide Level 25 21-32 mmol/L Anion Gap 11.0 3-11 mmol/L Blood Urea Nitrogen 40 7-18 mg/dl Creatinine 3.20 0.60-1.40 mg/dl Est Creatinine Clear Calc Drug Dose 22.4 ml/min Estimated GFR () 23.6 Estimated GFR (Non- 20.4 BUN/Creatinine Ratio 12.3 10-20 Random Glucose 114 70-99 mg/dl Calcium Level 8.6 8.5-10.1 mg/dl Magnesium Level 2.4 1.8-2.4 mg/dl Test 08/30/16 12:10 Range/Units Bedside Glucose 184 70-99 mg/dl
[2016-08-30] MEDS ORDERED: EPOETIN ALFA 10,000 UNITS/ML VIAL IV. ONE (14:00)
[2016-08-30] MEDS ORDERED: EPOETIN ALFA 10,000 UNITS/ML VIAL IV. SCH (14:30)
[2016-08-30] MEDS ORDERED: NURSING VERBAL MED ORDER ONE (16:45)
--- NOTE | 2016-08-30 16:47 | Dialysis Progress Note ---
Nephrology Dialysis Note Date of Service: Aug 30, 2016. Subjective 56 yo male with esrd with bacteremia requiring chronic vancomycin. has new tunneled line in place. chronic blair. pt feels good. appetite is good. seen on dialysis. access working well.right knee wrapped from chronic infection. Objective Date Time Temp Pulse Resp B/P Pulse Ox O2 Delivery O2 Flow Rate FiO2 08/30/16 08:30 98 Nasal Cannula 2.0 08/30/16 07:52 37.0 78 16 132/92 98 08/30/16 07:22 36.5 77 18 133/89 100 08/30/16 00:22 92 Nasal Cannula 2.0 08/29/16 23:53 36.9 75 20 119/85 100 Room Air 08/29/16 22:00 92 Nasal Cannula 2.0 Physical Exam: General-aaox3 Eyes-no scleral icterus ENT-mmm Neck-supple Lungs-cta Heart-rrr Abdomen-bs+ s/nt/nd Extremities-+1 edema right leg, chronic right knee infection, left aka, right knee wrapped Neuro-nonfocal -chronic blair Current Inpatient Medications Medications (Trade) Dose Ordered Sig/Edin Route Start Time Stop Time Status Last Admin Dose Admin Acetaminophen (Tylenol Tab) 650 mg Q4H PRN PO 08/19/16 14:00 09/18/16 13:59 08/19/16 16:41 650 MG Ondansetron HCl (Zofran Inj) 4 mg Q6H PRN IV 08/19/16 14:00 09/18/16 13:59 Insulin Aspart (novoLOG ASPART) SLIDING SCALE If C... ACHS SC 08/19/16 16:15 09/18/16 16:14 08/30/16 13:08 8 UNITS Glucose (Glucose 40% Gel) 15-30 GRAMS 15 GRAMS... UD PRN PO 08/19/16 14:15 09/18/16 14:14 Glucose (Glucose Chew Tab) 4-8 Tablets 4 Tabl... UD PRN PO 08/19/16 14:15 09/18/16 14:14 Dextrose (Dextrose 50% 50ML Syringe) 25-50ML OF 50% DW IV FOR... UD PRN IV 08/19/16 14:15 09/18/16 14:14 Glucagon (Glucagon Inj) 1 mg UD PRN SQ 08/19/16 14:15 09/18/16 14:14 Ascorbic Acid (Vitamin C Tab) 500 mg DAILY PO 08/20/16 09:00 09/19/16 08:59 08/30/16 08:25 500 MG Atorvastatin Calcium (Lipitor Tab) 40 mg HS PO 08/19/16 21:00 09/18/16 20:59 08/29/16 20:53 40 MG Calcium Acetate (Phoslo Cap) 1,334 mg TIDM PO 08/19/16 16:45 09/18/16 17:59 08/30/16 12:21 1,334 MG Salmeterol Xinafoate/ Fluticasone (Advair Diskus 250/50 Inh) 1 puff BID INH 08/19/16 21:00 09/18/16 20:59 08/30/16 08:25 1 PUFF Gabapentin (Neurontin Cap) 200 mg Q8 PO 08/19/16 22:00 09/18/16 21:59 08/30/16 14:06 200 MG Insulin Glargine (Lantus Solostar Pen) 5 unit BID SC 08/19/16 21:00 09/18/16 20:59 Future hold 08/30/16 08:41 5 UNIT Albuterol/ Ipratropium (Combivent Respimat Inh) 1 puffs QID INH 08/19/16 17:00 09/18/16 16:59 08/30/16 12:22 1 PUFFS Lactobacillus Acidophilus (Floranex Tab) 1 tab TID PO 08/19/16 21:00 09/18/16 20:59 08/30/16 14:06 1 TAB Loratadine (Claritin Tab) 10 mg DAILY PO 08/20/16 09:00 09/19/16 08:59 08/30/16 08:24 10 MG Lorazepam (Ativan Tab) 0.5 mg TID PO 08/19/16 21:00 09/18/16 20:59 08/30/16 14:06 0.5 MG Metoprolol Succinate (Toprol Xl Tab) 25 mg BID PO 08/19/16 21:00 09/18/16 20:59 08/30/16 08:24 25 MG Oxycodone HCl (Oxycontin Tab) 30 mg Q8 PO 08/19/16 22:00 09/02/16 21:59 08/30/16 14:10 30 MG Senna/Docusate Sodium (Senokot S Tab) 1 tab HS PO 08/19/16 21:00 09/18/16 20:59 08/29/16 20:53 1 TAB Cholecalciferol (Vitamin D Tab) 5,000 inter.unit DAILY PO 08/20/16 09:00 09/19/16 08:59 08/30/16 08:24 5,000 INTER.UNIT Dexamethasone (Decadron Tab) 2 mg DAILY PO 08/20/16 09:00 09/19/16 08:59 08/30/16 08:26 2 MG Ferrous Sulfate (Feosol Tab) 325 mg DAILY PO 08/20/16 09:00 09/19/16 08:59 08/30/16 08:24 325 MG Polyethylene (Miralax Powder Packet) 17 gm QAM PO 08/20/16 09:00 09/19/16 08:59 08/30/16 08:26 17 GM Pantoprazole Sodium 40 mg 40 mg QAM PO 08/20/16 09:00 09/19/16 08:59 08/30/16 08:26 40 MG Ceftaroline Fosamil/Sodium Chloride (Teflaro Inj/Nss 250ml) 256.6667 ml @ 250 mls/hr Q12H IV 08/19/16 18:00 09/02/16 17:59 08/30/16 06:14 250 MLS/HR Miscellaneous Information 1 ea UD PRN N/A 08/19/16 17:15 09/18/16 17:14 Perflutren Lipid Microsphere (Definity) 2 ml PRN PRN IV 08/22/16 07:30 09/21/16 07:29 08/22/16 07:23 2 ML Imipenem/ Cilastatin Sodium 1 ea 1 ea UD PRN N/A 08/22/16 11:15 09/21/16 11:14 Imipenem/ Cilastatin Sodium/ Dextrose (Primaxin Iv/D5 100ml) 110 ml @ 100 mls/hr Q12@0800,2000 IV 08/23/16 08:00 09/01/16 23:59 08/30/16 08:23 100 MLS/HR Epoetin Simone (Procrit Inj) 10,000 units TODAY@0800 IV. 08/31/16 08:00 09/30/16 18:00 Oxycodone HCl (Roxicodone Immediate Rel Tab) 5 mg Q4H PRN PO 08/30/16 17:00 09/13/16 16:59 Epoetin Simone (Procrit Inj) 10,000 units ONE IV. 08/30/16 14:30 08/30/16 18:00 Last 24 Hours Test 08/29/16 16:50 08/29/16 20:13 08/30/16 05:27 08/30/16 07:44 Bedside Glucose 156 mg/dl 262 mg/dl 89 mg/dl Sodium Level 138 mmol/L Potassium Level 4.6 mmol/L Chloride Level 102 mmol/L Carbon Dioxide Level 25 mmol/L Anion Gap 11.0 mmol/L Blood Urea Nitrogen 40 mg/dl Creatinine 3.20 mg/dl Est Creatinine Clear Calc Drug Dose 22.4 ml/min Estimated GFR () 23.6 Estimated GFR (Non- 20.4 BUN/Creatinine Ratio 12.3 Random Glucose 114 mg/dl Calcium Level 8.6 mg/dl Magnesium Level 2.4 mg/dl Test 08/30/16 12:10 Bedside Glucose 184 mg/dl Assessment & Plan ESRD-seen on dialysis today. 2k bath. 2liter uf. tolerating dialysis well. has edema in right leg chronically. lungs cta. no cramping. bp is good. Anemia of renal failure-goal hg of 10 to 11. redosing procrit today.
[2016-08-30] MEDS: DOCUSATE SODIUM/SENNA 50/8.6MG TAB PO SCH (21:53)
[2016-08-30] MEDS: ATORVASTATIN 40 MG TAB PO SCH (21:53)
[2016-08-31] MEDS: CEFTAROLINE FOSAMIL IV SCH (06:24)
[2016-08-31] MEDS: OXYCODONE HCL 15 MG TABCR (OXYCONTIN) PO SCH (06:24)
[2016-08-31] MEDS: SODIUM CHLORIDE 0.9% IV SCH (06:24)
[2016-08-31] MEDS: GABAPENTIN 100 MG CAP PO SCH (06:24)
[2016-08-31 07:12] LABS: BUN/CREATININE RATIO 10.5 (10-20); CALCIUM 8.4 mg/dl (8.5-10.1); CREATININE 3.3 mg/dl (0.60-1.40); MAGNESIUM 2.3 mg/dl (1.8-2.4)
[2016-08-31] MEDS ORDERED: EPOETIN ALFA 10,000 UNITS/ML VIAL IV. SCH (08:00)
[2016-08-31] MEDS: POLYETHYLENE (MIRALAX) 17 GM PACK PO SCH ×2 (08:00→08:03)
[2016-08-31] MEDS: FLUTICASONE/SALMETEROL 250/50 (ADVAIR) 14 PUFF/1 INHALER INH SCH (08:01)
[2016-08-31] MEDS: DEXAMETHASONE 1 MG TAB PO SCH (08:02)
[2016-08-31] MEDS: FERROUS SULFATE 325 MG TAB PO SCH (08:02)
[2016-08-31] MEDS: LACTOBACILLUS ACIDOPHILUS (FLORANEX) TAB PO SCH (08:02)
[2016-08-31] MEDS: LORAZEPAM 0.5 MG TAB PO SCH (08:02)
[2016-08-31] MEDS: IMIPENEM/CILASTATIN IV 500 MG in DEXTROSE 5% 100ML 100 ML IV SCH (08:02)
[2016-08-31] MEDS: IPRATROPIUM BROMIDE/ALBUTEROL respimat INH INH SCH ×2 (08:02→12:19)
[2016-08-31] MEDS: LORATADINE 10 MG TAB PO SCH (08:02)
[2016-08-31 08:03] VITALS: BP 128/88; PULSE 80; TEMP 36.8; O2SAT 99
[2016-08-31] MEDS: CALCIUM ACETATE 667MG GELCAP PO SCH ×2 (08:03→12:19)
[2016-08-31] MEDS: ASCORBIC ACID 500 MG TAB PO SCH (08:03)
[2016-08-31] MEDS: PANTOprazole SOD 40 MG TAB PO SCH (08:03)
[2016-08-31] MEDS: CHOLECALCIFEROL 1000 INTER.UNIT TAB PO SCH (08:03)
[2016-08-31] MEDS: METOPROLOL SUCC 25MG EXT REL TAB PO SCH (08:03)
[2016-08-31] MEDS: OXYCODONE HCL IR 5 MG TAB (IMMEDIATE RELEASE) PO PRN ×2 (08:04→12:20)
[2016-08-31] MEDS: INSULIN GLARGINE SOLOSTAR 100 UNITS/ML 3 ML PEN SC SCH (08:12)
[2016-08-31] MEDS: INSULIN ASPART 100 UNITS/ML 3 ML PEN SC SCH ×2 (09:34→12:27)
--- NOTE | 2016-08-31 11:15 | Progress Note ---
Internal Med Progress Note Date of Service: Aug 31, 2016. Provider Documentation: SUBJECTIVE: Patient is seen and examined at bedside. Doing well this morning. Denies chest pain, SOB. Got HD yesterday. Offers no complaints. OBJECTIVE: Vital Signs-as noted below Physical Exam: General Appearance:Moderately built and nourished, no apparent distress Head: normocephalic, Atraumatic Eyes: normal inspection, EOMI, PERRLA Neck: supple, Trachea midline Respiratory/Chest: Normal breath sounds, CTA Cardiovascular: S1, S2, No murmur Chest: +dialysis catheter Abdomen/GI:Soft, Non tender, Bowel sounds present Extremities/Musculoskelatal:Left AKA Neurologic/Psych:AAOX3, grossly no focal neurological deficits Skin: Right Knee:Wound + dressing + Left buttock: Stage II ulceration Lab data as noted below. ASSESSMENT & PLAN: MRSA BACTEREMIA HX RIGHT KNEE WOUND INFECTION (pseudomonas, proteus) : Pt presented with fever spikes outpatient, Blood cx drawn on 08/12/16 at [facility] grew MRSA, was scheduled for removal of right perma cath on 08/19/16, catheter tip for culture-negative for any growth. Patient was admitted for intermittent confusion post perm cath removal, fever spikes with recent MRSA bactermia Has been afebrile since hospitalization. No leucocytosis, Lactic acid WNL IV Ceftaroline per ID . Also on Imipenem started on on 08/22/16 for right knee infection. Received through the hospital stay Blood culture: (1/ 2) - MRSA +, Repeat Blood cultures on 08/20/16- Negative, Repeat Blood cx- 08/21/16 x 2 - Negative; Urine cx - Proteus Echo - EF 15-20%, Grade I diastolic dysfunction , Severe global hypokinesis, dilated atrium. Appreciate ID input Plan to be transitioned to IV vancomycin 1gm during dialysis MWF indefinitely for suppression of his recurrent infections upon discharge UTI Proteus Has Butler's catheter. Likely Colonization On IV ceftaroline, Imipenem ESRD S/p perm cath removal 08/19/16 Femoral dialysis catheter placed on 08/22/16 and dialysis done. S/P tunneled line on 08/27/16 Appreciate Nephrology help Repeat blood cultures:negative Appreciate vascular surgery help Dialysis per nephrology Received HD yesterday. Next HD on Friday HYPERKALEMIA Resolved monitor RIGHT KNEE AND LEFT BUTTOCK ULCERATIONS (STAGE II) S/p skin graft of right knee wound on 08/15/16 Continue wound care CHRONIC SYSTOLIC CHF/ ISCHEMIC CARDIOMYOPATHY EF 15-20% Appears euvolemic PRESUMED CAD Stable Continue beta david, statin DM II Continue Lantus, ISS CHRONIC RESPIRATORY FAILURE Continue home oxygen 3L PRN DVT PX SCD's CODE STATUS: FULL CODE DISPOSITION Plan to discharge to [facility] today Follow up with (PCP) on September 06, 2016 at 10:25AM Follow up your infectious disease doctor in 2 weeks at the wound care center as advised Continue IV Vancomycin 1gm during dialysis MWF as per recommendations from your infectious doctor. Vital Signs: Date Time Temp Pulse Resp B/P Pulse Ox O2 Delivery O2 Flow Rate FiO2 08/31/16 08:03 36.8 80 16 128/88 99 Room Air 08/30/16 23:59 Room Air 08/30/16 23:45 36.6 96 18 120/77 96 Room Air 08/30/16 19:02 36.6 71 118/66 08/30/16 18:30 Room Air 08/30/16 17:30 51 96/58 08/30/16 17:15 75 102/59 08/30/16 17:00 72 97/57 08/30/16 16:45 78 121/66 08/30/16 16:30 78 119/60 08/30/16 16:15 58 85/26 08/30/16 16:00 68 96/52 08/30/16 15:45 51 98/36 08/30/16 15:30 75 105/58 08/30/16 15:15 73 119/52 08/30/16 15:00 74 98/64 08/30/16 14:50 76 120/77 08/30/16 14:42 36.7 81 113/67 Lab Results: Results Past 24 Hours Test 08/30/16 12:10 08/30/16 18:21 08/30/16 20:03 08/31/16 06:37 Range/Units Bedside Glucose 184 173 206 70-99 mg/dl Sodium Level 138 136-145 mmol/L Potassium Level 4.0 3.5-5.1 mmol/L Chloride Level 104 98-107 mmol/L Carbon Dioxide Level 24 21-32 mmol/L Anion Gap 10.0 3-11 mmol/L Blood Urea Nitrogen 35 7-18 mg/dl Creatinine 3.30 0.60-1.40 mg/dl Est Creatinine Clear Calc Drug Dose 21.8 ml/min Estimated GFR () 22.8 Estimated GFR (Non- 19.6 BUN/Creatinine Ratio 10.5 10-20 Random Glucose 123 70-99 mg/dl Calcium Level 8.4 8.5-10.1 mg/dl Magnesium Level 2.3 1.8-2.4 mg/dl Test 08/31/16 07:40 Range/Units Bedside Glucose 114 70-99 mg/dl
[2016-08-31] MEDS ORDERED: OXYC1TAB3 PO (11:21)
[2016-08-31] MEDS ORDERED: LORA-741 PO (11:21)
[2016-08-31] MEDS ORDERED: OXYC15TA89 PO (11:21)
--- NOTE | 2016-08-31 11:24 | Discharge Summary ---
Discharge Summary Date of Service Aug 31, 2016. Discharge Summary Admission Date: Aug 19, 2016 at 13:48 Discharge Date: Aug 31, 2016 Discharge Disposition: residential facility Principal Diagnosis: MRSA Bacteremia, ESRD Procedures: CXR: 1. Mild right lower lung opacity which favors atelectasis. 2. Possible small right pleural effusion. 3. Cardiomegaly without evidence of pulmonary edema. Perm Catheter Placement Right Jugular Approach Consultations: ID, Nephrology, Vascular surgery Pending Studies/Follow-Up: Follow up with (PCP) on September 06, 2016 at 10:25AM Follow up your infectious disease doctor in 2 weeks at the wound care center as advised Continue IV Vancomycin 1gm during dialysis MWF as per recommendations from your infectious doctor. Medication Reconciliation Continued Medications: Acetaminophen Tab (Tylenol) 325 Mg Tab 650 MG PO Q6 PRN for PAIN RATED 1-5 DO NOT EXCEED 3MG/24HR Ascorbic Acid (Vitamin C) 500 Mg Tab 500 MG PO DAILY TAKE DAILY ON FRI/FRI/FRIDAY Aspirin (Aspirin Ec) 81 Mg Tab 81 MG PO DAILY TAKE ON FRI,FRI,FRI @ 0400 TAKE ON ,,SAT,SUN @ 0800 Atorvastatin (Atorvastatin Calcium) 40 Mg Tab 40 MG PO HS for 30 Days, TAB 1 Refill Calcium Acetate (Phosphate Bin (Phoslo 667 Mg) 667 Mg Cap 2 CAPSULES PO WM, CAP Calcium Alginate (Bulk) (Calcium Alginate) 1 Pow Pow 1 APPLN DAILY AND PRN CLEANSE LEFT BUTTOCK SITE WITH NSS,APPLY CALCIUM ALGINATE TO WOUND BASE AND COVER WITH SILICONE BORDER. Cholecalciferol (Vitamin D3) 5,000 Unit Tab 5000 UNIT PO DAILY Dexamethasone (Dexamethasone) 2 Mg Tab 2 MG PO DAILY Ferrous Sulfate (Kp Ferrous Sulfate) 325 Mg Tab 1 TAB PO DAILY, 3 Refills Fluticasone Prop/Salmeterol (Advair Diskus 250/50 60 Dose) 1 Ea Aerp 1 PUFFS INH BID, 3 Refills Gabapentin (Neurontin) 100 Mg Cap 200 MG PO Q8 Insulin Aspart (Novolog) Inj SC ACHS, BTL Sliding scale: 0-150 = 0 units, 151-200 = 6 units, 201-250 = 8 units, 251-300 = 10 units, 301- 350 = 12 units, 351- 400 = 14 units, 401- 450 = 16 units, 451+ call physician, subcutaneously before meals and at bedtime related to TYPE 2 Diabetes Mellitus Insulin Glargine (Lantus) 100 Unit/Ml Inj 5 UNITS SC AMPM Ipratropium-Albuterol (Combivent Respimat) 1 Aer Aer 1 PUFFS INH QID for 30 Days, #1 1 Refill Lactobacillus Acidophilus (Lactinex) Tab 1 TAB PO TID, TAB Loratadine (Claritin) 10 Mg Tab 10 MG PO DAILY GIVE AT 0400 ON FRI,FRI,FRI GIVE AT 0800 ON ,,FRI,FRI Lorazepam (Ativan) 0.5 Mg Tab 0.5 MG PO TID for 2 Days, #4 TAB (This prescription has been renewed) Metoprolol Succ (Toprol Xl) (Toprol-Xl) 25 Mg Tabcr 25 MG PO BID HOLD FOR AP HR <50 Omeprazole (Prilosec) 20 Mg Capcr 20 MG PO 4XWK ,,FRI,SUNDAYS Oxycodone Hcl (Oxycontin) 15 Mg Tab 30 MG PO Q8 for 2 Days, #6 (This prescription has been renewed) DO NOT USE TOGETHER WITH ATIVAN TAKE 1 HOUR AWAY FROM OXY IR Oxycodone Ir (Roxicodone Ir) 5 Mg Tab 10 MG PO UD PRN for prior to dialysis for 2 Days, #6 (This prescription has been renewed) before dialysis Oxygen (Oxygen) Gas 3 LITERS NA PRN PRN for Shortness of Breath Polyethylene Glycol 3350 (Miralax) 1 Pow Pow 17 GM PO DAILY GIVE AT 0400 ON FRI,FRI,FRI GIVE AT 0800 ON FRI,,,FRI Senna/Docusate Sod (Senokot S) 1 Tab Tab 1 TAB PO HS, TAB Vancomycin Hcl In Dextrose (Vancomycin Hcl In Dextros) 1 Inj Inj 1 GM IV 3XWK SEND TO DIALYSIS WITH PT ON FRI,FRI,FRI..WILL RECIEVE THERE [liquid protein] () 30 ML PO DAILY Admission Information HPI (per Admitting provider): This is a 56 year old male with PMH of ischemic cardiomyopathy s/p ICD, ESRD on HD, DM type 2, and other problems listed below who is being directly admitted s/ p removal of possibly infected permcath today by Dr. Bermudez. Patient was recently hospitalized from Jul 15- July 22 at [facility] for NSTEMI, MRSA bacteremia , RLE wound infection- Pseudomonas, Proteus. He was seen by ID and discharged to [facility] on Vancomycin and Imipenem/Cilastatin. Pt has f/u with ID Dr. Monk - vancomycin continued and Imipenem/Cilastatin stopped. Repeat blood culture 07/18/16 negative. Had subsequent positive blood culture drawn 08/12 which grew MRSA as per [facility] staff. Pt following with wound care and underwent graft of RLE wound 4 days ago. Patient states he had been feeling at baseline. Had dialysis and Vancomycin dose this morning. After surgery today is feeling tired and "not thinking straight". Has intermittent confusion at baseline. He denies fever, chills, cough, SOB, chest pain, palpitations, ICD firing, abdominal pain, N/V/D , abnormal bleeding, increasing edema. Has indwelling Blair catheter. He is wheelchair bound s/p left AKA. Physical Exam (per Admitting): General Appearance: WD/WN, no apparent distress, + pertinent finding (alert 56 year old male, no distress) Head: normocephalic, atraumatic Eyes: normal inspection, PERRL, EOMI, sclerae normal ENT: hearing grossly normal, pharynx normal Neck: supple, trachea midline Respiratory/Chest: lungs clear, normal breath sounds, no respiratory distress, no accessory muscle use Cardiovascular: regular rate, rhythm, no murmur Abdomen/GI: normal bowel sounds, non tender, soft Genitourinary - Male: + pertinent finding (blair catheter draining brown urine with foul odor) Extremities/Musculoskelatal: no calf tenderness (on RLE), + pertinent finding (1+ pretibial edema right lower leg. LLE s/p AKA) Neurologic/Psych: alert, normal mood/affect, + pertinent finding (oriented to person and place, unable to state the date, mild short term memory difficulty ) Skin: normal color, warm/dry, + pertinent finding (RLE dressing in place in knee area) Hospital Course MRSA BACTEREMIA HX RIGHT KNEE WOUND INFECTION (pseudomonas, proteus) : Pt presented with fever spikes outpatient, Blood cx drawn on 08/12/16 at [facility] grew MRSA, was scheduled for removal of right perma cath on 08/19/16, catheter tip for culture-negative for any growth. Patient was admitted for intermittent confusion post perm cath removal, fever spikes with recent MRSA bactermia Has been afebrile since hospitalization. No leucocytosis, Lactic acid WNL IV Ceftaroline per ID . Also on Imipenem started on on 08/22/16 for right knee infection. Received through the hospital stay Blood culture: (1/ 2) - MRSA +, Repeat Blood cultures on 08/20/16- Negative, Repeat Blood cx- 08/21/16 x 2 - Negative; Urine cx - Proteus Echo - EF 15-20%, Grade I diastolic dysfunction , Severe global hypokinesis, dilated atrium. Appreciate ID input Plan to be transitioned to IV vancomycin 1gm during dialysis MWF indefinitely for suppression of his recurrent infections upon discharge UTI Proteus Has Blair's catheter. Likely Colonization On IV ceftaroline, Imipenem ESRD S/p perm cath removal 08/19/16 Femoral dialysis catheter placed on 08/22/16 and dialysis done. S/P tunneled line on 08/27/16 Appreciate Nephrology help Repeat blood cultures:negative Appreciate vascular surgery help Dialysis per nephrology Received HD yesterday. Next HD on Friday HYPERKALEMIA Resolved monitor RIGHT KNEE AND LEFT BUTTOCK ULCERATIONS (STAGE II) S/p skin graft of right knee wound on 08/15/16 Continue wound care CHRONIC SYSTOLIC CHF/ ISCHEMIC CARDIOMYOPATHY EF 15-20% Appears euvolemic PRESUMED CAD Stable Continue beta david, statin DM II Continue Lantus, ISS CHRONIC RESPIRATORY FAILURE Continue home oxygen 3L PRN DVT PX SCD's CODE STATUS: FULL CODE DISPOSITION Plan to discharge to [facility] today Follow up with (PCP) on September 06, 2016 at 10:25AM Follow up your infectious disease doctor in 2 weeks at the wound care center as advised Continue IV Vancomycin 1gm during dialysis MWF as per recommendations from your infectious doctor. Total time spent on discharge = 40 minutes This includes examination of the patient, discharge planning, medication reconciliation, and communication with other providers. Discharge Instructions Discharge Instructions Date of Service Aug 31, 2016. Admission Reason for Admission: End Stage Renal Disease Discharge Discharge Diagnosis / Problem: MRSA Bacteremia Discharge Goals Goal(s): Decrease discomfort, Improve function Activity Recommendations Activity Limitations: resume your previous activity Exercise/Sports Limitations: as tolerated . Instructions / Follow-Up Instructions / Follow-Up Follow up with (PCP) on September 06, 2016 at 10:25AM Follow up your infectious disease doctor in 2 weeks at the wound care center as advised Continue IV Vancomycin 1gm during dialysis MWF as per recommendations from your infectious doctor. Current Hospital Diet Patient's current hospital diet: AHA Diet (Heart Healthy), Renal Diet, Diabetes Type 2 Diet Discharge Diet Recommended Diet: Diabetes Type 2 Diet Procedures Procedures Performed: Perm Catheter Placement Right Jugular Approach Ultrasound Localization of Right Jugular Vein Fluoroscopy for Positioning Removal of Temporary Dialysis Catheter Moderate Conscious Sedation ([id number]) Pending Studies Studies pending at discharge: no Laboratory Results Hemoglobin A1c Test 07/16/16 05:34 Range/Units Estimated Average Glucose 126 mg/dl Hemoglobin A1c 6.0 H 4.5-5.6 % Medical Emergencies . Who to Call and When: Medical Emergencies: If at any time you feel your situation is an emergency, please call 911 immediately. . Non-Emergent Contact Non-Emergency issues call your: Primary Care Provider Call Non-Emergent contact if: you have a fever, your pain is not controlled, your pain is worsening, your pain is unusual for you, you have any medication questions . . "Provider Documentation" section prepared by Beto Smith. VTE Core Measure Inpt VTE Proph given/why not?: SCD's
[2016-08-31 12:00] VITALS: BP 128/88; PULSE 80; TEMP 36.8; O2SAT 99
--- NOTE | 2016-09-03 08:24 | DIAGNOSTIC IMAGING REPORT ---
DATE OF PROCEDURE: 08/22/2016 PREOPERATIVE DIAGNOSIS: End-stage renal disease in need of hemodialysis with positive blood cultures. POSTOPERATIVE DIAGNOSIS: Same. PROCEDURE: Placement of right femoral temporary hemodialysis line under ultrasound guidance. SURGEON: Dr. Cody Bermudez. CRIMINAL INVESTIGATOR CUSTOMS: Dr. Adalgisa Brand. ANESTHESIA: Local anesthetic. ESTIMATED BLOOD LOSS: 10. COMPLICATIONS: None apparent. CONDITION: Stable to PACU. FLUOROSCOPY TIME: 0 minutes, 2 milligrays. INDICATIONS: Mr. Alvarado Daniels is a 56-year-old gentleman who has end-stage renal disease and on hemodialysis. He presented to the hospital with positive blood cultures and his tunneled hemodialysis line was removed. He has failed to clear his blood cultures so a temporary dialysis catheter was indicated, so he could undergo his hemodialysis. He was advised of the risks and benefits of the procedure and agreed to undergo procedure. PROCEDURE: The patient was brought into the operative suite. He was prepped and draped in the usual fashion. A timeout occurred. His femoral vein was identified under ultrasound and was compressible with no obvious clot. It was accessed under ultrasound guidance. A wire was advanced, which went smoothly without resistance. This was then dilated and the temporary dialysis catheter was placed and placement was confirmed under fluoroscopy. Both ports were flushed and tonja back easily and heparin was instilled 1.5 mL in each port. The patient was then transferred back to the PACU in stable condition. Dr. Cody Bermudez was present for the entirety of this case. I, Dr. Bermudez was present and scurbbed for the entire procedure. [facility]
[2016-10-04] MEDS ORDERED: LORA-741 PO (10:37)
[2016-10-04] MEDS ORDERED: IPRA1AER2 INH (10:37)
[2016-10-04] MEDS ORDERED: SNTO30 EXT (10:37)
[2016-10-04] MEDS ORDERED: OXYC-164 PO (10:37)
[2016-10-04] MEDS ORDERED: OXYC-787 PO (10:37)
[2016-11-27] MEDS ORDERED: OXYC40TA34 PO (09:01)
== END 2016-08-31 13:45 | DRG 314 ==
LOC: ENRESERVDT → ENRESERVTM → C.ACU 10:22 → C.2T 13:48 → EDBEDREQ 08-23 12:10 → C.4E 08-23 13:40
PROVIDERS: ADMIT Internal Medicine; ATTEND Internal Medicine
PROC: 05PYX3Z Removal of Infusion Device from Upper Vein, External Approach (ICD-10-PCS; 2016-08-19)
PROC: 06HM33Z Insertion of Infusion Device into Right Femoral Vein, Percutaneous Approach (ICD-10-PCS; 2016-08-22)
PROC: 06PYX3Z Removal of Infusion Device from Lower Vein, External Approach (ICD-10-PCS; principal; 2016-08-26 13:30)
PROC: 05HM33Z Insertion of Infusion Device into Right Internal Jugular Vein, Percutaneous Approach (ICD-10-PCS; principal; 2016-08-26 13:30)
DX: T82.7XXA Infection and inflammatory reaction due to other cardiac and vascular devices, implants and grafts, initial encounter (principal); N18.6 End stage renal disease; R78.81 Bacteremia; N39.0 Urinary tract infection, site not specified; I50.22 Chronic systolic (congestive) heart failure; J96.10 Chronic respiratory failure, unspecified whether with hypoxia or hypercapnia; B95.62 Methicillin resistant Staphylococcus aureus infection as the cause of diseases classified elsewhere; L89.322 Pressure ulcer of left buttock, stage 2; L89.892 Pressure ulcer of other site, stage 2; I25.10 Atherosclerotic heart disease of native coronary artery without angina pectoris; E11.9 Type 2 diabetes mellitus without complications; Z99.81 Dependence on supplemental oxygen; I25.5 Ischemic cardiomyopathy; Z79.82 Long term (current) use of aspirin; Z79.4 Long term (current) use of insulin; I10 Essential (primary) hypertension; D63.1 Anemia in chronic kidney disease; B96.4 Proteus (mirabilis) (morganii) as the cause of diseases classified elsewhere; E87.5 Hyperkalemia; Y83.8 Other surgical procedures as the cause of abnormal reaction of the patient, or of later complication, without mention of misadventure at the time of the procedure; I73.9 Peripheral vascular disease, unspecified; Z82.49 Family history of ischemic heart disease and other diseases of the circulatory system; Z87.891 Personal history of nicotine dependence; Z95.810 Presence of automatic (implantable) cardiac defibrillator; Z99.2 Dependence on renal dialysis

== ENCOUNTER 2016-09-10 15:34 | Inpatient (IN) | payer OTHER ==
[~2016-09-10] VITALS: Ht 165.1 cm; Wt 82.7 kg
[~2016-09-10 15:34] MED LIST changes: -MRLP17X PO; -SNTONWC TOP; +liquid protein PO
[2016-09-10] MEDS ORDERED: HYDROmorphone INJ 1 MG/ML SYR IV STA ×2 (15:45→16:28)
--- NOTE | 2016-09-10 17:22 | EMERGENCY ROOM VISIT NOTE ---
ED Visit Note First contact with patient: 15:38 This Patient was discussed with the physician Wordpress Developer, [place] Mauro PA-C. The pertinent historical and physical exam findings were confirmed. I agree with the studies ordered and with the interpretations of these studies. I agree with the disposition and care plan.
[2016-09-10 17:42] LABS: BASO % 0.1 %; BASO ABS # 0.01 K/uL (0-0.2); COMPLETE YES; EOS % 0.3 %; HEMATOCRIT 39.9 % (42-52); IG% 0.3 %; LYMPH % 9.9 %; LYMPH ABS # 1.51 K/uL (1.2-3.4); MEAN CELL VOLUME 92.4 fL (80-100); MEAN CORPUSCULAR HEMOGLOBIN 30.3 pg (25-34); MEAN CORPUSCULAR HGB CONC 32.8 g/dl (32-36); MEAN PLATELET VOLUME 9.8 fL (7.4-10.4); MONO % 2.9 %; NEUT % 86.5 %; PLATELET COUNT 241 K/uL (130-400); RED BLOOD COUNT 4.32 M/uL (4.7-6.1)
[2016-09-10 17:51] LABS: PROTHROMBIN TIME (PATIENT) 10.3 SECONDS (9.0-12.0)
--- NOTE | 2016-09-10 17:54 | DIAGNOSTIC IMAGING REPORT ---
RIGHT LOWER EXTREMITY ARTERIAL DOPPLER ULTRASOUND CLINICAL HISTORY: Severe right leg pain. No pulse. COMPARISON STUDY: Bilateral lower extremity arterial Doppler May 02, 2015. FINDINGS: Ankle to brachial indices could not be obtained due to an open wound. The right common femoral artery is patent with biphasic flow. The right common femoral to tibioperoneal trunk graft appears patent with biphasic flow. The agdaagux right superficial femoral artery is occluded. There is minimal flow within the right popliteal artery which appears reversed. There is monophasic flow within the right anterior tibial artery. There is also suspected monophasic flow within the right dorsalis pedis. There is minimal flow within the right peroneal artery. Note is made of a 4.6 x 1.3 x 2.1 cm hypoechoic abnormality of the medial right thigh. IMPRESSION: 1. Right common femoral to tibioperoneal trunk graft appears patent. The right posterior tibial and peroneal arteries are likely occluded, as before. 2. Monophasic flow within the right anterior tibial and dorsalis pedis which appear similar to exam of May 02, 2015. 3. 4.6 x 1.3 x 2.1 cm hypoechoic abnormality within the medial right thigh. This is nonspecific but may reflect a small hematoma. An abscess could appear similar but is considered less likely. Electronically signed by: Garry Lyman M.D. 09/10/2016 5:52 PM Dictated Date/Time: 09/10/2016 5:44 PM
[2016-09-10] MEDS ORDERED: HEPARIN SOD 5000 UNIT/0.5 ML CARP ONE (17:59)
[2016-09-10] MEDS ORDERED: HEPARIN 25000 UNIT/500 ML D5W ONE (17:59)
[2016-09-10 18:14] LABS: ALB/GLOB RATIO 0.9 (0.9-2); BUN/CREATININE RATIO 18.9 (10-20); C-REACTIVE PROTEIN 1.65 mg/dl (0-0.29); CALCIUM 9.3 mg/dl (8.5-10.1); CREATININE 4.7 mg/dl (0.60-1.40); POTASSIUM 5.2 mmol/L (3.5-5.1)
[2016-09-10] MEDS ORDERED: HYDROmorphone INJ 0.5 MG/0.5 ML SYR IV STA (18:33)
--- NOTE | 2016-09-10 18:41 | History and Physical ---
History & Physical Date & Time of Service: Sep 10, 2016 at 18:39 Chief Complaint: Sent From Ultrasound Primary Care Physician: Brandyn Queen M.D. History of Present Illness Source: patient This is a 56 year old male with PMH with complex PMH- Ischemic cardiomyopathy S/ P ICD, ESRD on HD, DM type 2, and other problems listed below who is being admitted from ER for abnormal ultrasound of lower extremity concerning for possible arterial occlusion. Patient's recently discharged from hospital on 08/31/16 after prolonged hospital course- MRSA bacteremia likely secondary to perm cath which was removed. Repeat blood cultures were positive and later negative. Had new tunneled line placed by Dr Bermudez for dialysis. Was discharged on IV Vancomycin with dialysis per ID recommendations. Has indwelling Butler catheter. He is wheelchair bound s/p left AKA. Patient does have chronic wound RLE/Right knee, managed by Dr Macario at wound clinic (goes every ) Patient was sent for US left lower extremity due to severe RLE pain. Pain started few days ago- from right knee to ankle , severe intensity . US shows- Right common femoral to tibioperoneal trunk graft appears patent. The right posterior tibial and peroneal arteries are likely occluded and thus was referred to ED for further evaluation and mx ED physician did speak to Dr Bermudez, no acute intervention recommended, but would do IV Heparin. No fever, chills, nausea, vomiting, abd pain, diarrhea, chest pain, SOB, cough. Past Medical/Surgical History Medical Problems: (1) Anemia Status: Chronic (2) Cardiomyopathy Status: Chronic (3) CHF (congestive heart failure) Permanent Comment: EF 20% Status: Chronic (4) CKD (chronic kidney disease), stage III Status: Chronic (5) Coronary artery disease Status: Chronic (6) DM type 2 (diabetes mellitus, type 2) Status: Chronic (7) HTN (hypertension) Status: Chronic (8) Hyperlipidemia Status: Chronic (9) Obesity Status: Chronic (10) Osteomyelitis Permanent Comment: history of vertebral osteomyelitis and diskitis November 2015 Status: Resolved (11) PAD (peripheral artery disease) Status: Chronic (12) PVD (peripheral vascular disease) Status: Chronic Surgical Problems: (1) ICD (implantable cardioverter-defibrillator), single, in situ Permanent Comment: 10/31 Status: Chronic (2) S/P AKA (above knee amputation) Permanent Comment: LLE Status: Chronic (3) S/P femoral-popliteal bypass surgery Permanent Comment: Right 1-, with angioplast 08/30, with stent 06/02 Status: Chronic (4) Toe amputation status Permanent Comment: Right 4 toe Status: Chronic Family History Coronary artery disease MOTHER FH: atrial fibrillation FATHER FH: cancer FATHER Hypertension SISTER Valvular heart disease FATHER Social History Smoking Status: Never Smoker Marital Status: single Housing status: assisted living Occupational Status: disabled Immunizations History of Influenza Vaccine: Yes Influenza Vaccine Date: Jun 17, 2014 History of Tetanus Vaccine?: Yes Tetanus Immunization Date: Jun 18, 2013 History of Pneumococcal: Yes Pneumococcal Date: Nov 18, 2001 History of Hepatitis B Vaccine: Yes Hepatitis Immunization Date: Dec 15, 2013 Multi-Drug Resistant Organisms History of MDRO: Yes Type of MDRO: MRSA Allergies Coded Allergies: Daptomycin (Verified Allergy, Severe, WATER ON LUNGS, 08/19/16) pt stated this allergy is "lethal" for him POLLEN (Verified Allergy, Unknown, 08/19/16) Ciprofloxacin (Verified Adverse Reaction, Intermediate, NAUSEA AND DIARHHEA, 08/19/16) Home Medications Scheduled Ascorbic Acid (Vitamin C), 500 MG PO DAILY Aspirin (Aspirin Ec), 81 MG PO DAILY Atorvastatin (Atorvastatin Calcium), 40 MG PO HS Calcium Acetate (Phosphate Bin (Phoslo 667 Mg), 2 CAPSULES PO WM Calcium Alginate (Bulk) (Calcium Alginate), 1 APPLN DAILY AND PRN Cholecalciferol (Vitamin D3), 5,000 UNIT PO DAILY Dexamethasone (Dexamethasone), 2 MG PO DAILY Ferrous Sulfate (Kp Ferrous Sulfate), 1 TAB PO DAILY Fluticasone Prop/Salmeterol (Advair Diskus 250/50 60 Dose), 1 PUFFS INH BID Gabapentin (Neurontin), 200 MG PO Q8 Insulin Aspart (Novolog), SC ACHS Insulin Glargine (Lantus), 5 UNITS SC AMPM Ipratropium-Albuterol (Combivent Respimat), 1 PUFFS INH QID Lactobacillus Acidophilus (Lactinex), 1 TAB PO TID Loratadine (Claritin), 10 MG PO DAILY Lorazepam (Ativan), 0.5 MG PO TID Metoprolol Succ (Toprol Xl) (Toprol-Xl), 25 MG PO BID Omeprazole (Prilosec), 20 MG PO 4XWK Oxycodone Hcl (Oxycontin), 30 MG PO Q8 Polyethylene Glycol 3350 (Miralax), 17 GM PO DAILY Senna/Docusate Sod (Senokot S), 1 TAB PO HS Vancomycin Hcl In Dextrose (Vancomycin Hcl In Dextros), 1 GM IV 3XWK [liquid protein], 30 ML PO DAILY Scheduled PRN Acetaminophen Tab (Tylenol), 650 MG PO Q6 PRN for PAIN RATED 1-5 Oxycodone Ir (Roxicodone Ir), 10 MG PO UD PRN for prior to dialysis Oxygen (Oxygen), 3 LITERS NA PRN PRN for Shortness of Breath Review of Systems Constitutional: No chills, No fever Eyes: No eye pain, No worsening of vision ENT: No hearing loss, No nasal symptoms Respiratory: No cough, No shortness of breath, No sputum, No wheezing Cardiovascular: No chest pain Abdomen: No GI bleeding, No diarrhea, No nausea, No pain, No vomiting Musculoskeletal: + problem reported (Lower extremity pain-right) Genitourinary - Male: No dysuria, No hematuria Neurologic: No memory loss, No paralysis Endocrine: + fatigue Integumentary: + problem reported (Multiple wounds- RLE ) Physical Exam Vital Signs Date Time Temp Pulse Resp B/P Pulse Ox O2 Delivery O2 Flow Rate FiO2 09/10/16 18:03 84 20 123/79 97 Room Air 09/10/16 16:59 84 20 136/93 97 Room Air 09/10/16 15:37 36.8 82 20 143/104 97 Room Air General Appearance: + mild distress (secondary to pain), + obese Head: normocephalic, atraumatic Eyes: PERRL ENT: hearing grossly normal Neck: supple Respiratory/Chest: chest non-tender, lungs clear, normal breath sounds, no respiratory distress Cardiovascular: regular rate, rhythm Abdomen/GI: non tender, soft Extremities/Musculoskelatal: + pertinent finding (edema; Left AKA; Pulses in Right lower extremity- difficult to palpate, but no color changes noted) Neurologic/Psych: alert, oriented x 3 Skin: + pertinent finding (RLE- Wound + no oozing or pus discharge noted, Right knee- circumscribed wound- healing) Diagnostics Laboratory Results Results Past 24 Hours Test 09/10/16 17:26 Range/Units White Blood Count 15.20 4.8-10.8 K/uL Red Blood Count 4.32 4.7-6.1 M/uL Hemoglobin 13.1 14.0-18.0 g/dL Hematocrit 39.9 42-52 % Mean Corpuscular Volume 92.4 80-100 fL Mean Corpuscular Hemoglobin 30.3 25-34 pg Mean Corpuscular Hemoglobin Concent 32.8 32-36 g/dl Platelet Count 241 130-400 K/uL Mean Platelet Volume 9.8 7.4-10.4 fL Neutrophils (%) (Auto) 86.5 % Lymphocytes (%) (Auto) 9.9 % Monocytes (%) (Auto) 2.9 % Eosinophils (%) (Auto) 0.3 % Basophils (%) (Auto) 0.1 % Neutrophils # (Auto) 13.16 1.4-6.5 K/uL Lymphocytes # (Auto) 1.51 1.2-3.4 K/uL Monocytes # (Auto) 0.44 0.11-0.59 K/uL Eosinophils # (Auto) 0.04 0-0.5 K/uL Basophils # (Auto) 0.01 0-0.2 K/uL RDW Standard Deviation 52.4 36.4-46.3 fL RDW Coefficient of Variation 15.5 11.5-14.5 % Immature Granulocyte % (Auto) 0.3 % Immature Granulocyte # (Auto) 0.04 0.00-0.02 K/uL Erythrocyte Sedimentation Rate 37 0-14 mm/hr Prothrombin Time 10.3 9.0-12.0 SECONDS Prothromb Time International Ratio 1.0 0.9-1.1 Activated Partial Thromboplast Time 27.2 21.0-31.0 SECONDS Partial Thromboplastin Ratio 1.0 Sodium Level 131 136-145 mmol/L Potassium Level 5.2 3.5-5.1 mmol/L Chloride Level 98 98-107 mmol/L Carbon Dioxide Level 22 21-32 mmol/L Anion Gap 11.0 3-11 mmol/L Blood Urea Nitrogen 89 7-18 mg/dl Creatinine 4.70 0.60-1.40 mg/dl Est Creatinine Clear Calc Drug Dose 17.4 ml/min Estimated GFR () 14.8 Estimated GFR (Non- 12.8 BUN/Creatinine Ratio 18.9 10-20 Random Glucose 157 70-99 mg/dl Calcium Level 9.3 8.5-10.1 mg/dl Total Bilirubin 0.4 0.2-1 mg/dl Aspartate Amino Transf (AST/SGOT) 14 15-37 U/L Alanine Aminotransferase (ALT/SGPT) 23 12-78 U/L Alkaline Phosphatase 104 45-117 U/L C-Reactive Protein 1.65 0-0.29 mg/dl Total Protein 8.0 6.4-8.2 gm/dl Albumin 3.7 3.4-5.0 gm/dl Globulin 4.3 2.5-4.0 gm/dl Albumin/Globulin Ratio 0.9 0.9-2 Microbiology Results 09/10/16 Blood Culture, Received Pending 09/10/16 Blood Culture, Received Pending Diagnostic Radiology US LOWER EXTREMITY IMPRESSION: 1. Right common femoral to tibioperoneal trunk graft appears patent. The right posterior tibial and peroneal arteries are likely occluded, as before. 2. Monophasic flow within the right anterior tibial and dorsalis pedis which appear similar to exam of May 02, 2015. 3. 4.6 x 1.3 x 2.1 cm hypoechoic abnormality within the medial right thigh. This is nonspecific but may reflect a small hematoma. An abscess could appear similar but is considered less likely. Impression Assessment and Plan POSSIBLE ARTERIAL OCCLUSION Per US- Right posterior tibial and peroneal arteries - occlusion as mentioned 2. Monophasic flow within the right anterior tibial and dorsalis pedis which appear similar to exam of May 02, 2015. 3. 4.6 x 1.3 x 2.1 cm hypoechoic abnormality within the medial right thigh. This is nonspecific but may reflect a small hematoma. An abscess could appear similar but is considered less likely. Clinically pulses difficult to palpate but no color changes - Discussed case with Dr Bermudez- No acute intervention recommended - IV heparin per Dr Bermudez - Continue with ASA, statin - Consulted vascular surgery HX OF MRSA BACTEREMIA HX RIGHT KNEE WOUND INFECTION (pseudomonas, proteus) : -Recently discharged from hospital on 08/31/16 after prolonged hospitalization for MRSA bacteremia likely secondary to perm cath. Removed on 08/19/16, catheter tip for culture however was negative. Repeat blood cx came back positive and than negative. -Rxed with IV Ceftaroline /Imipenem and discharged on IV Vancomycin with dialysis indefinitely for suppression of his recurrent infections per ID -Will continue with IV Vancomycin with dialysis ESRD ON HD S/P tunneled line on 08/27/16 during last admission -MWF HD per Nephrology -Nephrology consulted HYPERKALEMIA, MILD -For dialysis tomorrow; K 5.2- mild -Monitor RIGHT KNEE AND LEFT BUTTOCK ULCERATIONS (STAGE II) S/p skin graft of right knee wound on 08/15/16 -Continue wound care CHRONIC SYSTOLIC CHF/ ISCHEMIC CARDIOMYOPATHY EF 15-20% -Appears euvolemic -On Hemodialysis PRESUMED CAD Stable -Continue beta david, statin DM II -Continue Lantus, ISS CHRONIC RESPIRATORY FAILURE -Continue home oxygen 3L PRN DVT PX Heparin IV CODE STATUS: FULL CODE DISPOSITION Admit to telemetry Level of Care Telemetry Resuscitation Status FULL RESUSCITATION VTE Prophylaxis Given or contraindicated: Other Anticoagulation (IV Heparin)
[2016-09-10] MEDS ORDERED: DEXTROSE IV SCH (19:00)
[2016-09-10] MEDS ORDERED: ACETAMINOPHEN 325 MG TAB PO PRN ×2 (19:00→19:15)
[2016-09-10] MEDS ORDERED: VANCOMYCIN HCL IV SCH (19:00)
[2016-09-10] MEDS ORDERED: GLUCOSE 10 TABS/TUBE PO PRN (19:00)
[2016-09-10] MEDS ORDERED: GLUCAGON FOR INJ 1 MG VIAL SQ PRN (19:00)
[2016-09-10] MEDS ORDERED: GLUCOSE 40% GEL 15 GM TUBE PO PRN (19:00)
[2016-09-10] MEDS ORDERED: DEXTROSE 50% 50 ML SYR IV PRN (19:00)
[2016-09-10] MEDS ORDERED: NITROGLYCERIN 0.4 MG SL PER TAB CHARGE SL PRN (19:15)
[2016-09-10] MEDS ORDERED: ONDANSETRON INJ 2 MG/ML 2 ML VIAL IV PRN (19:15)
[2016-09-10] MEDS ORDERED: VANCOMYCIN INJ 500 MG in SODIUM CHLORIDE 0.9% 250ML 250 ML IV STA (19:50)
[2016-09-10] MEDS ORDERED: VANCOMYCIN CONSULT ACTIVE PRN (20:30)
[2016-09-10 20:40] VITALS: BP 121/87; PULSE 86; TEMP 37.9; O2SAT 99; BMI 31.2
[2016-09-10] MEDS: INSULIN ASPART 100 UNITS/ML 3 ML PEN SC SCH (21:00)
[2016-09-10] MEDS: OXYCODONE HCL 15 MG TABCR (OXYCONTIN) PO SCH (21:19)
--- NOTE | 2016-09-10 21:52 | EMERGENCY ROOM VISIT NOTE ---
History First contact with patient: 15:38 Chief Complaint: LEG PAIN,LEG INJURY Stated Complaint: ARTERIAL OCCLUSION History of Present Illness The patient is a 56 year old male who presents to the Emergency Room with complaints of severe right leg pain. The patient was here for an outpatient ultrasound and was sent here because he was in too much pain to have the ultrasound performed. The patient has a history of femoropopliteal bypass of the right leg. He has a history of an above-knee amputation of the left leg. The patient states that he was sent for a venous ultrasound yesterday because his leg was cool to touch. He states that he cannot fill the foot, but this is a chronic problem for him. He states that Dr. Bermudez did his previous surgeries. He has 2 nonhealing wounds to the right leg and states he is currently on antibiotics. He denies any fevers/chills, abdominal pain, chest pain, shortness of breath or recent injury. Review of Systems A complete 10-point Review of Systems was discussed with the patient, with pertinent positives and negatives listed in the History of Present Illness. All remaining Review of Systems questions can be considered negative unless otherwise specified. Past Medical/Surgical History Medical Problems: (1) Acute on chronic renal failure (2) Anemia (3) Arterial occlusion (4) Cardiomyopathy (5) CHF (congestive heart failure) (6) CKD (chronic kidney disease), stage III (7) Coronary artery disease (8) DM type 2 (diabetes mellitus, type 2) (9) Fever (10) HTN (hypertension) (11) Hyperlipidemia (12) Hypoxia (13) Infected permcath (14) Obesity (15) Osteomyelitis (16) PAD (peripheral artery disease) (17) PVD (peripheral vascular disease) (18) Unresponsiveness Surgical Problems: (1) ICD (implantable cardioverter-defibrillator), single, in situ (2) S/P AKA (above knee amputation) (3) S/P femoral-popliteal bypass surgery (4) Toe amputation status Family History Coronary artery disease MOTHER FH: atrial fibrillation FATHER FH: cancer FATHER Hypertension SISTER Valvular heart disease FATHER Social History Smoking Status: Never Smoker Alcohol Use: occasionally Marital Status: single Housing Status: intermediate Occupation Status: disabled Current/Historical Medications Scheduled Ascorbic Acid (Vitamin C), 500 MG PO DAILY Aspirin (Aspirin Ec), 81 MG PO DAILY Atorvastatin (Atorvastatin Calcium), 40 MG PO HS Calcium Acetate (Phosphate Bin (Phoslo 667 Mg), 2 CAPSULES PO WM Calcium Alginate (Bulk) (Calcium Alginate), 1 APPLN DAILY AND PRN Cholecalciferol (Vitamin D3), 5,000 UNIT PO DAILY Dexamethasone (Dexamethasone), 2 MG PO DAILY Ferrous Sulfate (Kp Ferrous Sulfate), 1 TAB PO DAILY Fluticasone Prop/Salmeterol (Advair Diskus 250/50 60 Dose), 1 PUFFS INH BID Gabapentin (Neurontin), 200 MG PO Q8 Insulin Aspart (Novolog), SC ACHS Insulin Glargine (Lantus), 5 UNITS SC AMPM Ipratropium-Albuterol (Combivent Respimat), 1 PUFFS INH QID Lactobacillus Acidophilus (Lactinex), 1 TAB PO TID Loratadine (Claritin), 10 MG PO DAILY Lorazepam (Ativan), 0.5 MG PO TID Metoprolol Succ (Toprol Xl) (Toprol-Xl), 25 MG PO BID Omeprazole (Prilosec), 20 MG PO 4XWK Oxycodone Hcl (Oxycontin), 30 MG PO Q8 Polyethylene Glycol 3350 (Miralax), 17 GM PO DAILY Senna/Docusate Sod (Senokot S), 1 TAB PO HS Vancomycin Hcl In Dextrose (Vancomycin Hcl In Dextros), 1 GM IV 3XWK [liquid protein], 30 ML PO DAILY Scheduled PRN Acetaminophen Tab (Tylenol), 650 MG PO Q6 PRN for PAIN RATED 1-5 Oxycodone Ir (Roxicodone Ir), 10 MG PO UD PRN for prior to dialysis Oxygen (Oxygen), 3 LITERS NA PRN PRN for Shortness of Breath Allergies Coded Allergies: Daptomycin (Verified Allergy, Severe, WATER ON LUNGS, 08/19/16) pt stated this allergy is "lethal" for him POLLEN (Verified Allergy, Unknown, 08/19/16) Ciprofloxacin (Verified Adverse Reaction, Intermediate, NAUSEA AND DIARHHEA, 08/19/16) Physical Exam Vital Signs Date Time Temp Pulse Resp B/P Pulse Ox O2 Delivery O2 Flow Rate FiO2 09/10/16 19:02 87 16 157/94 98 Room Air 09/10/16 18:03 84 20 123/79 97 Room Air 09/10/16 16:59 84 20 136/93 97 Room Air 09/10/16 15:37 36.8 82 20 143/104 97 Room Air Pain Rating (0-10): 9.0 Physical Exam VITALS: Vitals are noted on the nurse's note and reviewed by myself. Vital signs stable. GENERAL: This is a 56-year-old male, in no acute distress, nondiaphoretic, well- developed well-nourished. SKIN: There is a necrotic ulcer to the right knee. There is a large blister to the medial aspect of the right lower leg. The right foot and lower leg are mottled. HEART: Regular rate and rhythm without murmurs gallops or rubs. LUNGS: Clear to auscultation bilaterally without wheezes, rales or rhonchi. EXTREMITIES: The right foot is cold to touch and mottled in appearance. There is no palpable dorsalis pedis pulse. NEURO: Patient was alert and oriented to person place and time. No sensation to touch of the right foot. Medical Decision & Procedures ER Provider Diagnostic Interpretation: RIGHT LOWER EXTREMITY ARTERIAL DOPPLER ULTRASOUND CLINICAL HISTORY: Severe right leg pain. No pulse. COMPARISON STUDY: Bilateral lower extremity arterial Doppler May 02, 2015. FINDINGS: Ankle to brachial indices could not be obtained due to an open wound. The right common femoral artery is patent with biphasic flow. The right common femoral to tibioperoneal trunk graft appears patent with biphasic flow. The lower [place] right superficial femoral artery is occluded. There is minimal flow within the right popliteal artery which appears reversed. There is monophasic flow within the right anterior tibial artery. There is also suspected monophasic flow within the right dorsalis pedis. There is minimal flow within the right peroneal artery. Note is made of a 4.6 x 1.3 x 2.1 cm hypoechoic abnormality of the medial right thigh. IMPRESSION: 1. Right common femoral to tibioperoneal trunk graft appears patent. The right posterior tibial and peroneal arteries are likely occluded, as before. 2. Monophasic flow within the right anterior tibial and dorsalis pedis which appear similar to exam of May 02, 2015. 3. 4.6 x 1.3 x 2.1 cm hypoechoic abnormality within the medial right thigh. This is nonspecific but may reflect a small hematoma. An abscess could appear similar but is considered less likely. Laboratory Results Test 09/10/16 17:26 Immature Granulocyte % (Auto) 0.3 % White Blood Count 15.20 K/uL (4.8-10.8) Red Blood Count 4.32 M/uL (4.7-6.1) Hemoglobin 13.1 g/dL (14.0-18.0) Hematocrit 39.9 % (42-52) Mean Corpuscular Volume 92.4 fL (80-100) Mean Corpuscular Hemoglobin 30.3 pg (25-34) Mean Corpuscular Hemoglobin Concent 32.8 g/dl (32-36) Platelet Count 241 K/uL (130-400) Mean Platelet Volume 9.8 fL (7.4-10.4) Neutrophils (%) (Auto) 86.5 % Lymphocytes (%) (Auto) 9.9 % Monocytes (%) (Auto) 2.9 % Eosinophils (%) (Auto) 0.3 % Basophils (%) (Auto) 0.1 % Neutrophils # (Auto) 13.16 K/uL (1.4-6.5) Lymphocytes # (Auto) 1.51 K/uL (1.2-3.4) Monocytes # (Auto) 0.44 K/uL (0.11-0.59) Eosinophils # (Auto) 0.04 K/uL (0-0.5) Basophils # (Auto) 0.01 K/uL (0-0.2) Immature Granulocyte # (Auto) 0.04 K/uL (0.00-0.02) Erythrocyte Sedimentation Rate 37 mm/hr (0-14) Prothrombin Time 10.3 SECONDS (9.0-12.0) Prothromb Time International Ratio 1.0 (0.9-1.1) Total Bilirubin 0.4 mg/dl (0.2-1) Aspartate Amino Transf (AST/SGOT) 14 U/L (15-37) Alanine Aminotransferase (ALT/SGPT) 23 U/L (12-78) Alkaline Phosphatase 104 U/L (45-117) C-Reactive Protein 1.65 mg/dl (0-0.29) Total Protein 8.0 gm/dl (6.4-8.2) Albumin 3.7 gm/dl (3.4-5.0) Globulin 4.3 gm/dl (2.5-4.0) Albumin/Globulin Ratio 0.9 (0.9-2) Medications Administered Medications (Trade) Dose Ordered Sig/Edin Route Start Time Stop Time Status Last Admin Dose Admin Hydromorphone HCl (Dilaudid Inj) 1 mg NOW STAT IV 09/10/16 15:45 09/10/16 15:48 DC 09/10/16 16:00 1 MG Hydromorphone HCl (Dilaudid Inj) 1 mg NOW STAT IV 09/10/16 16:28 09/10/16 16:29 DC 09/10/16 16:57 1 MG Heparin Sodium/ Dextrose (Heparin 25,000 Unit/500ml D5W) 25,000 unit STK-MED ONCE .ROUTE 09/10/16 17:59 09/10/16 18:00 DC 09/10/16 18:03 25,000 UNIT Heparin Sodium (Porcine) (Heparin Sq 5000 Unit/0.5ml) 10,000 unit STK-MED ONCE .ROUTE 09/10/16 17:59 09/10/16 18:00 DC 09/10/16 18:02 6,000 UNIT Hydromorphone HCl (Dilaudid Inj) 0.5 mg NOW STAT IV 09/10/16 18:33 09/10/16 18:35 DC 09/10/16 19:02 0.5 MG Oxycodone HCl (Roxicodone Immediate Rel Tab) 10 mg UD PRN PO 09/10/16 19:00 09/24/16 18:59 09/11/16 19:22 10 MG ED Course The patient was evaluated as above. Labs were drawn and IV access was obtained. Patient was medicated with 1 mg Dilaudid IV. I spoke with Dr. Bermudez, who did not feel this would be a surgical case and did request to be notified with the results of the ultrasound. Patient requested additional pain medication was given and additional 1 mg Dilaudid IV. Arterial ultrasound was performed and read by radiology as above. I spoke with Dr. Bermudez who felt the patient could be admitted to medicine. Patient was reevaluated and had continued pain. He was given 0.5 mg Dilaudid IV. He was started on a heparin drip. Case was discussed with the [facility] hospitalist, Sharee Carter. They agreed to evaluate the patient for admission. Medical Decision Differential diagnosis includes arterial occlusion, infection, DVT, among others. The patient is a 56-year-old male who presents today complaining of with severe right leg pain. His foot is cold to touch and the skin is mottled. Labs revealed a leukocytosis and mild anemia. Creatinine is elevated due to the patient's chronic kidney disease. An arterial ultrasound of the leg was read by radiology and is unchanged from a previous ultrasound. However, the patient clinically appears to have an arterial occlusion. His foot is cold and he is having severe pain which is uncontrolled despite IV Dilaudid. A heparin drip was started and the patient will be admitted to the medical service. The patient was independently evaluated by Dr. Carreno, ED attending physician, who agreed with my assessment and treatment plan. Impression Primary Impression: Arterial occlusion Departure Information Referrals Brandyn Queen M.D. (PCP) Patient Instructions My [facility]
[2016-09-10] MEDS: FLUTICASONE/SALMETEROL 250/50 (ADVAIR) 14 PUFF/1 INHALER INH SCH (22:12)
[2016-09-10] MEDS: IPRATROPIUM BROMIDE/ALBUTEROL respimat INH INH SCH (22:13)
[2016-09-10] MEDS: METOPROLOL SUCC 25MG EXT REL TAB PO SCH (22:14)
[2016-09-10] MEDS: ATORVASTATIN 40 MG TAB PO SCH (22:14)
[2016-09-10] MEDS: DOCUSATE SODIUM/SENNA 50/8.6MG TAB PO SCH (22:14)
[2016-09-10] MEDS: GABAPENTIN 100 MG CAP PO SCH (22:14)
[2016-09-10] MEDS: INSULIN GLARGINE SOLOSTAR 100 UNITS/ML 3 ML PEN SC SCH (22:16)
[2016-09-10] MEDS ORDERED: HEPARIN 25,000 UNIT/500ML D5W 500 ML IV PRN (22:30)
[2016-09-10 23:34] VITALS: BP 126/84; PULSE 95; TEMP 37.1; O2SAT 95
[2016-09-11] VITALS (24 sets, daily range): BP systolic 94–155; BP diastolic 50–98; PULSE 47–98; TEMP 36.5–36.8; O2SAT 93–98; BMI 29.8
[2016-09-11 00:42] LABS: PARTIAL THROMBOPLASTIN RATIO 2.4
[2016-09-11] MEDS ORDERED: HYDROmorphone INJ 1 MG/ML SYR IV ONE (01:30)
[2016-09-11] MEDS: GABAPENTIN 100 MG CAP PO SCH ×3 (06:00→21:28)
[2016-09-11] MEDS: OXYCODONE HCL 15 MG TABCR (OXYCONTIN) PO SCH ×3 (06:03→21:34)
[2016-09-11 07:08] LABS: HEMATOCRIT 39.4 % (42-52); MEAN CELL VOLUME 92.1 fL (80-100); MEAN CORPUSCULAR HEMOGLOBIN 29.9 pg (25-34); MEAN CORPUSCULAR HGB CONC 32.5 g/dl (32-36); MEAN PLATELET VOLUME 10.1 fL (7.4-10.4); PLATELET COUNT 235 K/uL (130-400); RED BLOOD COUNT 4.28 M/uL (4.7-6.1); WHITE BLOOD COUNT 10.86 K/uL (4.8-10.8)
[2016-09-11 07:14] LABS: PARTIAL THROMBOPLASTIN RATIO 2.3
[2016-09-11 07:42] LABS: BUN/CREATININE RATIO 19.6 (10-20); CREATININE 5.2 mg/dl (0.60-1.40); POTASSIUM 5.1 mmol/L (3.5-5.1)
[2016-09-11] MEDS: CALCIUM ACETATE 667MG GELCAP PO SCH (08:12)
[2016-09-11] MEDS: METOPROLOL SUCC 25MG EXT REL TAB PO SCH ×2 (08:12→21:30)
[2016-09-11] MEDS: POLYETHYLENE (MIRALAX) 17 GM PACK PO SCH (08:12)
[2016-09-11] MEDS: FERROUS SULFATE 325 MG TAB PO SCH (08:12)
[2016-09-11] MEDS: ASPIRIN 81 MG ECTAB PO SCH (08:13)
[2016-09-11] MEDS: LACTOBACILLUS ACIDOPHILUS (FLORANEX) TAB PO SCH ×3 (08:14→18:45)
[2016-09-11] MEDS: INSULIN GLARGINE SOLOSTAR 100 UNITS/ML 3 ML PEN SC SCH (08:15)
[2016-09-11] MEDS: INSULIN ASPART 100 UNITS/ML 3 ML PEN SC SCH ×4 (08:18→20:47)
[2016-09-11] MEDS: OXYCODONE HCL IR 5 MG TAB (IMMEDIATE RELEASE) PO PRN ×2 (08:19→19:22)
[2016-09-11] MEDS: CHOLECALCIFEROL 1000 INTER.UNIT TAB PO SCH (08:19)
[2016-09-11] MEDS: IPRATROPIUM BROMIDE/ALBUTEROL respimat INH INH SCH ×4 (08:19→21:26)
[2016-09-11] MEDS: FLUTICASONE/SALMETEROL 250/50 (ADVAIR) 14 PUFF/1 INHALER INH SCH ×2 (08:19→21:25)
[2016-09-11] MEDS: DEXAMETHASONE 1 MG TAB PO SCH (08:20)
[2016-09-11] MEDS: LORATADINE 10 MG TAB PO SCH (08:20)
--- NOTE | 2016-09-11 08:52 | Clinical Documentation Query ---
CLINICAL DOCUMENTATION QUERY 56 year old male with hx of vast PVD who presents to the Emergency Room with complaints of severe right leg pain. H&P notes ulcerations stage II to right knee and left buttocks. A professional math instructor can not imply what a stage II ulcer means. The word pressure is quintessential for application of the correct code. Also nursing skin impairment record paints a picture of other skin issues not described in H&P. Also the pressure ulcers are potential HAC's if not described POA. In your clinical opinion is this patient being managed for any of following: ( X ) Pressure ulcer of left buttock, stage 2 POA ( X ) Pressure ulcer right knee, stage 2 POA ( X ) Right Great Toe Pressue Ulcer ( ) Stage III or greater base on presence of Eschar ( ) Other stage (please define) ( ) Other explanation of clinical findings (Please Explain) ( ) Unable to determine (Please Define) ( ) Need to Discuss ( ) Not Agree The medical record reflects the following clinical findings, treatment, and risk factors. Clinical Indicators: Ulcerations note by nursing and admitting physician to Bilateral legs, right knee stage II ulcer, right great toe pressure ulcer, left buttocks stage II ulcer Treatment: WOCN consult Risk Factors: Age, DM, PVD, Chronic illness Please clarify and document your clinical opinion in the progress notes and discharge summary. Terms such as "probable", "suspected", "likely", "questionable", "possible", or "still to be ruled out" are acceptable. IF IN AGREEMENT, YOU MUST DOCUMENT ABOVE DIAGNOSTIC STATEMENT IN DAILY PROGRESS NOTES AND DISCHARGE SUMMARY. This document is not part of the patient's record. Thank You, Thomas Hedrick, NEGRO [phone]
--- NOTE | 2016-09-11 09:13 | Progress Note ---
Subjective Date of Service: Sep 11, 2016. Problem List Medical Problems: (1) Altered mental status Status: Acute (2) Diabetes mellitus out of control Status: Acute (3) Elevated troponin Status: Acute (4) Elevated troponin Status: Acute (5) Elevated troponin Status: Acute (6) End stage renal failure on dialysis Status: Acute (7) Hyperkalemia Status: Acute (8) Hypocalcemia Status: Acute (9) Hypoglycemia Status: Acute (10) Hypokalemia Status: Acute (11) Hyponatremia Status: Acute (12) Hypotension Status: Acute (13) Hypothermia Status: Acute (14) Mass of spine Status: Acute (15) Opiate overdose Status: Acute (16) Renal failure Status: Acute (17) Renal insufficiency Status: Acute (18) Sepsis Status: Acute (19) Ulcer of toe Status: Acute (20) Ulcers of both lower extremities Status: Acute (21) UTI (urinary tract infection) Status: Acute Objective Vital Signs Date Time Temp Pulse Resp B/P Pulse Ox O2 Delivery O2 Flow Rate FiO2 09/11/16 07:46 36.8 84 18 115/69 98 09/11/16 04:00 Room Air 09/11/16 03:26 36.8 95 22 119/84 95 Nasal Cannula 2.0 09/10/16 23:59 Room Air 09/10/16 23:34 37.1 95 19 126/84 95 Room Air 09/10/16 20:40 37.9 86 20 121/87 99 Room Air 09/10/16 20:40 37.9 86 20 121/87 99 Room Air 09/10/16 20:05 87 16 134/98 99 09/10/16 19:02 87 16 157/94 98 Room Air 09/10/16 18:03 84 20 123/79 97 Room Air 09/10/16 16:59 84 20 136/93 97 Room Air 09/10/16 15:37 36.8 82 20 143/104 97 Room Air Laboratory Results Last 24 Hours Test 09/10/16 17:26 09/10/16 20:33 09/11/16 00:09 09/11/16 06:31 White Blood Count 15.20 K/uL Red Blood Count 4.32 M/uL Hemoglobin 13.1 g/dL Hematocrit 39.9 % Mean Corpuscular Volume 92.4 fL Mean Corpuscular Hemoglobin 30.3 pg Mean Corpuscular Hemoglobin Concent 32.8 g/dl Platelet Count 241 K/uL Mean Platelet Volume 9.8 fL Neutrophils (%) (Auto) 86.5 % Lymphocytes (%) (Auto) 9.9 % Monocytes (%) (Auto) 2.9 % Eosinophils (%) (Auto) 0.3 % Basophils (%) (Auto) 0.1 % Neutrophils # (Auto) 13.16 K/uL Lymphocytes # (Auto) 1.51 K/uL Monocytes # (Auto) 0.44 K/uL Eosinophils # (Auto) 0.04 K/uL Basophils # (Auto) 0.01 K/uL RDW Standard Deviation 52.4 fL RDW Coefficient of Variation 15.5 % Immature Granulocyte % (Auto) 0.3 % Immature Granulocyte # (Auto) 0.04 K/uL Erythrocyte Sedimentation Rate 37 mm/hr Prothrombin Time 10.3 SECONDS Prothromb Time International Ratio 1.0 Activated Partial Thromboplast Time 27.2 SECONDS 61.1 SECONDS Partial Thromboplastin Ratio 1.0 2.4 Sodium Level 131 mmol/L Potassium Level 5.2 mmol/L Chloride Level 98 mmol/L Carbon Dioxide Level 22 mmol/L Anion Gap 11.0 mmol/L Blood Urea Nitrogen 89 mg/dl Creatinine 4.70 mg/dl Est Creatinine Clear Calc Drug Dose 17.4 ml/min Estimated GFR () 14.8 Estimated GFR (Non- 12.8 BUN/Creatinine Ratio 18.9 Random Glucose 157 mg/dl Calcium Level 9.3 mg/dl Total Bilirubin 0.4 mg/dl Aspartate Amino Transf (AST/SGOT) 14 U/L Alanine Aminotransferase (ALT/SGPT) 23 U/L Alkaline Phosphatase 104 U/L C-Reactive Protein 1.65 mg/dl Total Protein 8.0 gm/dl Albumin 3.7 gm/dl Globulin 4.3 gm/dl Albumin/Globulin Ratio 0.9 Bedside Glucose 132 mg/dl 85 mg/dl Test 09/11/16 06:39 White Blood Count 10.86 K/uL Red Blood Count 4.28 M/uL Hemoglobin 12.8 g/dL Hematocrit 39.4 % Mean Corpuscular Volume 92.1 fL Mean Corpuscular Hemoglobin 29.9 pg Mean Corpuscular Hemoglobin Concent 32.5 g/dl RDW Standard Deviation 51.4 fL RDW Coefficient of Variation 15.3 % Platelet Count 235 K/uL Mean Platelet Volume 10.1 fL Activated Partial Thromboplast Time 59.3 SECONDS Partial Thromboplastin Ratio 2.3 Sodium Level 131 mmol/L Potassium Level 5.1 mmol/L Chloride Level 95 mmol/L Carbon Dioxide Level 22 mmol/L Anion Gap 14.0 mmol/L Blood Urea Nitrogen 102 mg/dl Creatinine 5.20 mg/dl Est Creatinine Clear Calc Drug Dose 15.4 ml/min Estimated GFR () 13.1 Estimated GFR (Non- 11.3 BUN/Creatinine Ratio 19.6 Random Glucose 69 mg/dl Calcium Level 9.0 mg/dl Random Vancomycin Level 6.1 mcg/ml Assessment and Plan This is a 56 year old male resident at [facility] with a PMH of severe PAD, ESRD on dialysis, recent admission due to MRSA bacteremia, ischemic cardiomyopathy s/p AICD, HTN, DM2, anemia secondary to ESRD presents with R LE pain and subsequently found to have a possible arterial occlusion Severe Peripheral Artery Disease s/p R LE bypass graft s/p R LE stenting to keep bypass patent in 2014 s/p L AKA in September 2015 due to severe cellulitis/sepsis and arterial disease Follows with wound care for a R knee/calf ulceration Was seen by primary care physician on 09/10 - scheduled to have outpatient Doppler, but was in too much pain presented to the ER due to the pain R LE arterial Doppler performed here shows Right common femoral to tibioperoneal trunk graft appears patent. The right posterior tibial and peroneal arteries are likely occluded, as before. vascular surgery consulted and recommendation made that no surgical procedure would be performed IV heparin started 09/11 as per vascular surgery, we can stop the IV heparin will continue aspirin and statin patient had been receiving Percocet but overnight required IV Dilaudid which helped subside the pain may need pain management if pain persists Right Superficial Calf Infection Right Knee Wound Infection Hx. of MRSA bacteriemia was hospitalized earlier in August due to MRSA bacteremia - likely due to perm cath; which was removed and replaced when blood cultures were negative He has since been on Vancomycin with dialysis - indefinite course due to multiple infections as per ID During last admission, he was discharged with Ceftaroline/Imipenem combination which has since been stopped Follows with wound care - creating a skin graft for the right knee wound 09/11 Continue with Vancomycin indefinitely Wound care consulted for further evaluation of the knee Blood cultures are pending ESRD Mild Hyperkalemia - resolved patient receives dialysis on 09/11 plan is for dialysis today as per nephrology K mildly elevated at 5.2 on admission - for dialysis today Vancomycin with dialysis Ischemic Cardiomyopathy s/p AICD Chronic Mixed Systolic/Diastolic CHF last echo - 08/22/16 * The left ventricle is moderately dilated. * Ejection Fraction = 15-20%. * There is severe global hypokinesis of the left ventricle. s/p AICD fluid management as per nephro with dialysis Coronary Artery Disease elevated troponin levels noted during last admission no cath performed, but medically managed continue aspirin, statin, b-david DM2 09/11 was initially on Lantus 5 units BID and a sliding scale his sugars having been running low with the last reading around 69 will stop the Lantus for now, and continue the sliding scale Chronic Respiratory Failure uses supplemental O2 intermittently currently is not requiring it and does not have any shortness of breath DVT ppx IV heparin stopped started subq heparin FULL CODE
--- NOTE | 2016-09-11 09:34 | Nephrology Consultation ---
Nephrology Consultation Date of Consultation: Sep 11, 2016. Attending Physician: Dr Cerda Requesting Physician: Dr Ballard Reason for Consultation: ESRD History of Present Illness 56 year old male w/ ESRD on MWF HD and severe ischemic [employer] EF 15-20%, DM2, severe peripheral vascular disease admitted last evening after LE u/s concerning for possible arterial occlusion. He is catheter-dependent for dialysis access. He has chronic / recurrent MRSA bacteremia from multiple sources and is on indefinite vancomycin therapy as of [facility] d/c on 08/31 after admission for MRSA bacteremia. He developed severe RLE pain from knee to ankle a few days back > u/s showed possible R post tibial and peroneal arterial occlusions. Vascular aware of pt; will eval today; recommended IV heparin ON. Past Medical/Surgical History -ischemic cardiomyopathy s/p defibrillator -ESRD on MWF HD at [facility] w/ Dr Flores via TDC -type 2 diabetes -chronic blair -chronic RLE/ R knee wound followed weekly at wound clinic -hypertension -lumbar osteomyelitis November 2015 needing life-flight to [place] -severe peripheral arterial/vascular disease -s/p left AKA, defibrillator -s/p fem-pop bypass -s/p R toe amputations Family History Coronary artery disease MOTHER FH: atrial fibrillation FATHER FH: cancer FATHER Hypertension SISTER Valvular heart disease FATHER Social History Smoking Status: Former Smoker Alcohol Use: occasionally Marital Status: single Housing Status: correction Occupation Status: disabled Allergies Coded Allergies: Daptomycin (Verified Allergy, Severe, WATER ON LUNGS, 08/19/16) pt stated this allergy is "lethal" for him POLLEN (Verified Allergy, Unknown, 08/19/16) Ciprofloxacin (Verified Adverse Reaction, Intermediate, NAUSEA AND DIARHHEA, 08/19/16) Medications Current Inpatient Medications Medications (Trade) Dose Ordered Sig/Edin Route Start Time Stop Time Status Last Admin Dose Admin Aspirin (Ecotrin Tab) 81 mg DAILY PO 09/11/16 09:00 10/11/16 08:59 Atorvastatin Calcium (Lipitor Tab) 40 mg HS PO 09/10/16 21:00 10/10/16 20:59 09/10/16 22:14 40 MG Calcium Acetate (Phoslo Cap) 1,334 mg DAILY PO 09/11/16 09:00 10/11/16 08:59 Salmeterol Xinafoate/ Fluticasone (Advair Diskus 250/50 Inh) 1 puff BID INH 09/10/16 21:00 10/10/16 20:59 09/10/16 22:12 1 PUFF Gabapentin (Neurontin Cap) 200 mg Q8 PO 09/10/16 22:00 10/10/16 21:59 09/11/16 06:00 200 MG Insulin Glargine (Lantus Solostar Pen) 5 unit BID SC 09/10/16 21:00 10/10/16 20:59 09/10/16 22:16 5 UNIT Albuterol/ Ipratropium (Combivent Respimat Inh) 1 puffs QID INH 09/10/16 21:00 10/10/16 20:59 09/10/16 22:13 1 PUFFS Lactobacillus Acidophilus (Floranex Tab) 1 tab TIDM PO 09/11/16 07:30 10/11/16 07:29 Loratadine (Claritin Tab) 10 mg DAILY PO 09/11/16 09:00 10/11/16 08:59 Metoprolol Succinate (Toprol Xl Tab) 25 mg BID PO 09/10/16 21:00 10/10/16 20:59 09/10/16 22:14 25 MG Oxycodone HCl (Oxycontin Tab) 30 mg Q8 PO 09/10/16 22:00 09/24/16 21:59 09/11/16 06:03 30 MG Oxycodone HCl (Roxicodone Immediate Rel Tab) 10 mg UD PRN PO 09/10/16 19:00 09/24/16 18:59 Senna/Docusate Sodium (Senokot S Tab) 1 tab HS PO 09/10/16 21:00 10/10/16 20:59 09/10/16 22:14 1 TAB Miscellaneous Information (Order Awaiting Action) 1 ea QS N/A 09/10/16 21:15 10/10/16 21:14 Cholecalciferol (Vitamin D Tab) 5,000 inter.unit DAILY PO 09/11/16 09:00 10/11/16 08:59 Dexamethasone (Decadron Tab) 2 mg DAILY PO 09/11/16 09:00 10/11/16 08:59 Ferrous Sulfate (Feosol Tab) 325 mg DAILY PO 09/11/16 09:00 10/11/16 08:59 Pantoprazole Sodium (Protonix Tab) 40 mg SuTuThSa@0900 PO 09/12/16 09:00 10/12/16 08:59 Polyethylene (Miralax Powder Packet) 17 gm QAM PO 09/11/16 09:00 10/11/16 08:59 Insulin Aspart (novoLOG ASPART) SLIDING SCALE If C... ACHS SC 09/10/16 21:00 10/10/16 20:59 09/10/16 21:00 2 UNITS Glucose (Glucose 40% Gel) 15-30 GRAMS 15 GRAMS... UD PRN PO 09/10/16 19:00 10/10/16 18:59 Glucose (Glucose Chew Tab) 4-8 Tablets 4 Tabl... UD PRN PO 09/10/16 19:00 10/10/16 18:59 Dextrose (Dextrose 50% 50ML Syringe) 25-50ML OF 50% DW IV FOR... UD PRN IV 09/10/16 19:00 10/10/16 18:59 Glucagon (Glucagon Inj) 1 mg UD PRN SQ 09/10/16 19:00 10/10/16 18:59 Acetaminophen (Tylenol Tab) 650 mg Q4H PRN PO 09/10/16 19:15 10/10/16 19:14 Ondansetron HCl (Zofran Inj) 4 mg Q6H PRN IV 09/10/16 19:15 10/10/16 19:14 Nitroglycerin (Nitrostat Tab) 0.4 mg UD PRN SL 09/10/16 19:15 10/10/16 19:14 Vancomycin HCl 1 ea 1 ea UD PRN N/A 09/10/16 20:30 10/10/16 20:29 Heparin Sodium/ Dextrose (Heparin 25,000 Unit/500ml D5W) 500 ml @ 26 mls/hr [id number] PRN IV 09/10/16 22:30 10/10/16 22:29 Home Meds and Scripts Medications Dose Route/Sig Max Daily Dose Days Date Category Dose Instructions Ativan (Lorazepam) 0.5 Mg Tab 0.5 Mg PO TID 2 08/31/16 Rx Roxicodone Ir (Oxycodone HCl) 5 Mg Tab 10 Mg PO UD PRN 2 08/31/16 Rx before dialysis Oxycontin (Oxycodone Hcl) 15 Mg Tab 30 Mg PO Q8 2 08/31/16 Rx DO NOT USE TOGETHER WITH ATIVAN TAKE 1 HOUR AWAY FROM OXY IR [liquid protein] 30 Ml PO DAILY 08/19/16 Reported Atorvastatin Calcium (Atorvastatin) 40 Mg Tab 40 Mg PO HS 30 08/19/16 Rx Combivent Respimat (Ipratropium-Albuterol) 1 Aer Aer 1 Puffs INH QID 30 07/22/16 Rx Calcium Alginate (Calcium Alginate (Bulk)) 1 Pow Pow 1 Appln DAILY AND PRN 07/15/16 Reported CLEANSE LEFT BUTTOCK SITE WITH NSS,APPLY CALCIUM ALGINATE TO WOUND BASE AND COVER WITH SILICONE BORDER. Oxygen Gas 3 Liters NA PRN PRN 07/15/16 Reported Tylenol (Acetaminophen) 325 Mg Tab 650 Mg PO Q6 PRN 07/15/16 Reported DO NOT EXCEED 3MG/24HR Vitamin C (Ascorbic Acid) 500 Mg Tab 500 Mg PO DAILY 07/15/16 Reported TAKE DAILY ON FRI/FRI/FRIDAY Vitamin D3 (Cholecalciferol) 5,000 Unit Tab 5,000 Unit PO DAILY 07/15/16 Reported Dexamethasone 2 Mg Tab 2 Mg PO DAILY 07/15/16 Reported Vancomycin Hcl In Dextros (Vancomycin Hcl In Dextrose) 1 Inj Inj 1 Gm IV 3XWK 06/04/16 Reported SEND TO DIALYSIS WITH PT ON FRI,FRI,FRI..WILL RECIEVE THERE Senokot S (Senna/Docusate Sodium) 1 Tab Tab 1 Tab PO HS 06/04/16 Reported Lantus (Insulin Glargine) 100 Unit/Ml Inj 5 Units SC AMPM 06/04/16 Reported Lactinex (Lactobacillus Acidophilus) Tab 1 Tab PO TID 06/04/16 Reported Kp Ferrous Sulfate (Ferrous Sulfate) 325 Mg Tab 1 Tab PO DAILY 06/04/16 Reported Advair Diskus 250/50 60 Dose (Fluticasone Prop/Salmeterol) 1 Ea Aerp 1 Puffs INH BID 06/04/16 Reported Neurontin (Gabapentin) 100 Mg Cap 200 Mg PO Q8 06/04/16 Reported Phoslo 667 Mg (Calcium Acetate (Phosphate Bin) 667 Mg Cap 2 Capsules PO WM 11/12/15 Reported Toprol-Xl (Metoprolol Succinate) 25 Mg Tabcr 25 Mg PO BID 11/12/15 Reported HOLD FOR AP HR <50 Claritin (Loratadine) 10 Mg Tab 10 Mg PO DAILY 11/12/15 Reported GIVE AT 0400 ON FRI,FRI,FRI GIVE AT 0800 ON ,,FRI,FRI Prilosec (Omeprazole) 20 Mg Capcr 20 Mg PO 4XWK 09/28/15 Reported ,,FRI,SUNDAYS Novolog (Insulin Aspart) Inj SC ACHS 09/28/15 Reported Sliding scale: 0-150 = 0 units, 151-200 = 6 units, 201- 250 = 8 units, 251-300 = 10 units, 301- 350 = 12 units, 351- 400 = 14 units, 401- 450 = 16 units, 451+ call physician, subcutaneously before meals and at bedtime related to TYPE 2 Diabetes Mellitus Miralax (Polyethylene Glycol 3350) 1 17 Gm PO DAILY 09/05/15 Reported GIVE AT 0400 ON FRI,FRI,FRI GIVE AT 0800 ON FRI,,,FRI Aspirin Ec (Aspirin) 81 Mg Tab 81 Mg PO DAILY 06/03/14 Reported TAKE ON FRI,FRI,FRI @ 0400 TAKE ON ,,FRI,SUN @ 0800 Review of Systems Constitutional: No fatigue, No fever, No weakness Eyes: No worsening of vision ENT: No hearing loss, No sore throat Respiratory: No shortness of breath Cardiac: No chest pain, No edema, No palpitations Abdomen: No constipation, No diarrhea, No nausea, No pain, No vomiting Musculoskeletal: + calf pain, + muscle pain, + see HPI (had severe RLE pain ON but better this am w/ pain meds on board) Male : + problem reported (chronic blair; no change in output) Neuro: No memory loss, No weakness Psych: No depression symptoms Heme: No abnormal bleeding/bruising Endo: No fatigue Skin: + new/changing skin lesions (new/recent 18 x 7 cm blister RLE medial aspect distally which broke > superficial; also ongoing R knee wound), No rash Physical Exam Date Time Temp Pulse Resp B/P Pulse Ox O2 Delivery O2 Flow Rate FiO2 09/11/16 07:46 36.8 84 18 115/69 98 09/11/16 04:00 Room Air 09/11/16 03:26 36.8 95 22 119/84 95 Nasal Cannula 2.0 09/10/16 23:59 Room Air 09/10/16 23:34 37.1 95 19 126/84 95 Room Air 09/10/16 20:40 37.9 86 20 121/87 99 Room Air 09/10/16 20:40 37.9 86 20 121/87 99 Room Air 09/10/16 20:05 87 16 134/98 99 09/10/16 19:02 87 16 157/94 98 Room Air 09/10/16 18:03 84 20 123/79 97 Room Air 09/10/16 16:59 84 20 136/93 97 Room Air 09/10/16 15:37 36.8 82 20 143/104 97 Room Air 24-Hour Column 09/11/16 08:00 Intake Total 354 ml Output Total 225 ml Balance 129 ml General Appearance: WD/WN, no apparent distress (on RA oriented x 3), + obese Eyes: EOMI ENT: hearing grossly normal Neck: supple Respiratory/Chest: no respiratory distress, + decreased breath sounds Cardiovascular: regular rate, rhythm, no edema Abdomen: normal bowel sounds, non tender, soft, + pertinent finding (blair present) Extremities: + pertinent finding (L AKA; R wounds as above) Neurologic/Psych: alert, normal mood/affect, oriented x 3 Skin: no jaundice, warm/dry, no rash, + pertinent finding (wounds chronic as above) Diagnostics Last 24 Hours Test 09/10/16 17:26 09/10/16 20:33 09/11/16 00:09 09/11/16 06:31 White Blood Count 15.20 K/uL Red Blood Count 4.32 M/uL Hemoglobin 13.1 g/dL Hematocrit 39.9 % Mean Corpuscular Volume 92.4 fL Mean Corpuscular Hemoglobin 30.3 pg Mean Corpuscular Hemoglobin Concent 32.8 g/dl Platelet Count 241 K/uL Mean Platelet Volume 9.8 fL Neutrophils (%) (Auto) 86.5 % Lymphocytes (%) (Auto) 9.9 % Monocytes (%) (Auto) 2.9 % Eosinophils (%) (Auto) 0.3 % Basophils (%) (Auto) 0.1 % Neutrophils # (Auto) 13.16 K/uL Lymphocytes # (Auto) 1.51 K/uL Monocytes # (Auto) 0.44 K/uL Eosinophils # (Auto) 0.04 K/uL Basophils # (Auto) 0.01 K/uL RDW Standard Deviation 52.4 fL RDW Coefficient of Variation 15.5 % Immature Granulocyte % (Auto) 0.3 % Immature Granulocyte # (Auto) 0.04 K/uL Erythrocyte Sedimentation Rate 37 mm/hr Prothrombin Time 10.3 SECONDS Prothromb Time International Ratio 1.0 Activated Partial Thromboplast Time 27.2 SECONDS 61.1 SECONDS Partial Thromboplastin Ratio 1.0 2.4 Sodium Level 131 mmol/L Potassium Level 5.2 mmol/L Chloride Level 98 mmol/L Carbon Dioxide Level 22 mmol/L Anion Gap 11.0 mmol/L Blood Urea Nitrogen 89 mg/dl Creatinine 4.70 mg/dl Est Creatinine Clear Calc Drug Dose 17.4 ml/min Estimated GFR () 14.8 Estimated GFR (Non- 12.8 BUN/Creatinine Ratio 18.9 Random Glucose 157 mg/dl Calcium Level 9.3 mg/dl Total Bilirubin 0.4 mg/dl Aspartate Amino Transf (AST/SGOT) 14 U/L Alanine Aminotransferase (ALT/SGPT) 23 U/L Alkaline Phosphatase 104 U/L C-Reactive Protein 1.65 mg/dl Total Protein 8.0 gm/dl Albumin 3.7 gm/dl Globulin 4.3 gm/dl Albumin/Globulin Ratio 0.9 Bedside Glucose 132 mg/dl 85 mg/dl Test 09/11/16 06:39 White Blood Count 10.86 K/uL Red Blood Count 4.28 M/uL Hemoglobin 12.8 g/dL Hematocrit 39.4 % Mean Corpuscular Volume 92.1 fL Mean Corpuscular Hemoglobin 29.9 pg Mean Corpuscular Hemoglobin Concent 32.5 g/dl RDW Standard Deviation 51.4 fL RDW Coefficient of Variation 15.3 % Platelet Count 235 K/uL Mean Platelet Volume 10.1 fL Activated Partial Thromboplast Time 59.3 SECONDS Partial Thromboplastin Ratio 2.3 Sodium Level 131 mmol/L Potassium Level 5.1 mmol/L Chloride Level 95 mmol/L Carbon Dioxide Level 22 mmol/L Anion Gap 14.0 mmol/L Blood Urea Nitrogen 102 mg/dl Creatinine 5.20 mg/dl Est Creatinine Clear Calc Drug Dose 15.4 ml/min Estimated GFR () 13.1 Estimated GFR (Non- 11.3 BUN/Creatinine Ratio 19.6 Random Glucose 69 mg/dl Calcium Level 9.0 mg/dl Random Vancomycin Level 6.1 mcg/ml EKG: SR w/ PACs Assessment & Plan 56 y/o M w/ ESRD, DM, EF 15%, severe peripheral vascular disease, chronic / recurrent bacteremia on indefinite vancomycin admitted for evaluation of possible RLE arterial occlusion. ESRD, TDC dependent for vascular access -HD today; per vascular heparin gtt not needed and so will d/c gtt and give heparin w/ HD Chronic/recurrent bacteremia w/ multiple possible sources including TDC -on indefinite vancomycin therapy per ID recs ANNA -agree w/ continuing binders; monitor phos q3-4 days Anemia of chronic disease -no epo needed today; monitor for needs RLE pain/concern for arterial occlusion but not an acute issue at this time -per vascular no surgical intervention needed; cont wound care Appreciate consult; will follow with you. Care coordinated wt Dr Cerda and NAMRATA Ramirez.
--- NOTE | 2016-09-11 09:49 | Surgery Consultation ---
Consultation Date of Service Sep 11, 2016. Chief Complaint 56 yo m with multiple medical problems, known to Dr Bermudez for PAD and RLE fem- PT trunk BPG and LLE AKA, seen today during admission for severe RLE pain. D/T concerns regarding his BPG, arterial US was ordered which demonstrates patent BPG and good distal flow. US performed in office 1 month ago at f/u appt demonstrated same. Pt states a "blister" on his R lower leg opened up and he developed worse pain. His R knee wound is being managed by wound care center, according to pt, they are planning on a skin graft. Pt denies any other new complaints. History of Present Illness The patient is a 56 year old male Vitals Vital Signs Past 12 Hours Date Time Temp Pulse Resp B/P Pulse Ox O2 Delivery O2 Flow Rate FiO2 09/11/16 07:46 36.8 84 18 115/69 98 09/11/16 04:00 Room Air 09/11/16 03:26 36.8 95 22 119/84 95 Nasal Cannula 2.0 09/10/16 23:59 Room Air 09/10/16 23:34 37.1 95 19 126/84 95 Room Air Allergies Coded Allergies: Daptomycin (Verified Allergy, Severe, WATER ON LUNGS, 08/19/16) pt stated this allergy is "lethal" for him POLLEN (Verified Allergy, Unknown, 08/19/16) Ciprofloxacin (Verified Adverse Reaction, Intermediate, NAUSEA AND DIARHHEA, 08/19/16) Home Medications Scheduled Ascorbic Acid (Vitamin C), 500 MG PO DAILY Aspirin (Aspirin Ec), 81 MG PO DAILY Atorvastatin (Atorvastatin Calcium), 40 MG PO HS Calcium Acetate (Phosphate Bin (Phoslo 667 Mg), 2 CAPSULES PO WM Calcium Alginate (Bulk) (Calcium Alginate), 1 APPLN DAILY AND PRN Cholecalciferol (Vitamin D3), 5,000 UNIT PO DAILY Dexamethasone (Dexamethasone), 2 MG PO DAILY Ferrous Sulfate (Kp Ferrous Sulfate), 1 TAB PO DAILY Fluticasone Prop/Salmeterol (Advair Diskus 250/50 60 Dose), 1 PUFFS INH BID Gabapentin (Neurontin), 200 MG PO Q8 Insulin Aspart (Novolog), SC ACHS Insulin Glargine (Lantus), 5 UNITS SC AMPM Ipratropium-Albuterol (Combivent Respimat), 1 PUFFS INH QID Lactobacillus Acidophilus (Lactinex), 1 TAB PO TID Loratadine (Claritin), 10 MG PO DAILY Lorazepam (Ativan), 0.5 MG PO TID Metoprolol Succ (Toprol Xl) (Toprol-Xl), 25 MG PO BID Omeprazole (Prilosec), 20 MG PO 4XWK Oxycodone Hcl (Oxycontin), 30 MG PO Q8 Polyethylene Glycol 3350 (Miralax), 17 GM PO DAILY Senna/Docusate Sod (Senokot S), 1 TAB PO HS Vancomycin Hcl In Dextrose (Vancomycin Hcl In Dextros), 1 GM IV 3XWK [liquid protein], 30 ML PO DAILY Scheduled PRN Acetaminophen Tab (Tylenol), 650 MG PO Q6 PRN for PAIN RATED 1-5 Oxycodone Ir (Roxicodone Ir), 10 MG PO UD PRN for prior to dialysis Oxygen (Oxygen), 3 LITERS NA PRN PRN for Shortness of Breath Problem List Medical Problems: (1) Acute on chronic renal failure (2) Anemia (3) Arterial occlusion (4) Cardiomyopathy (5) CHF (congestive heart failure) (6) CKD (chronic kidney disease), stage III (7) Coronary artery disease (8) DM type 2 (diabetes mellitus, type 2) (9) Fever (10) HTN (hypertension) (11) Hyperlipidemia (12) Hypoxia (13) Infected permcath (14) Obesity (15) Osteomyelitis (16) PAD (peripheral artery disease) (17) PVD (peripheral vascular disease) (18) Unresponsiveness Surgical Problems: (1) ICD (implantable cardioverter-defibrillator), single, in situ (2) S/P AKA (above knee amputation) (3) S/P femoral-popliteal bypass surgery (4) Toe amputation status Surgical / Medical History Hx Cardiac Surgery: Yes (ICD AND PACER) Hx Abdominal Surgery: No Hx Cancer Surgery: No Hx Thoracic Surgery: No Hx Orthopedic: Yes (LT AKA, RT FORTH TOE AMPUTATED) Hx Urinary Tract Surgery: No HX Other Surgery: No Past Medical/Surgical History: CHF, Diabetes, Heart Disease, High Cholesterol, Hypertension, Kidney Disease Family History Coronary artery disease MOTHER FH: atrial fibrillation FATHER FH: cancer FATHER Hypertension SISTER Valvular heart disease FATHER Social History Smoking Status: Former Smoker Hx Tobacco Use In Past Year?: No Hx Alcohol Use - Type & Amnt: No Hx Substance Use -Type & Amnt: No Review of Systems Constitutional: + malaise, No chills, No fever Skin: + change in color Eyes: No visual changes ENMT: No sore throat Respiratory: No HO[place], No cough, No hemoptysis, No short of breath Cardiovascular: No chest pain, No edema, No intermittent claudication, No palpitations, No syncope Gastrointestinal: No abdominal pain, No nausea, No vomiting Neurologic: No dizziness, No headache, No lethargy, No numbness, No tingling Physical Exam Constitutional: General Apperance: well-nourished, well-developed, obese Level of Distress: NAD, acutely ill, chronically ill Psychiatric: Mental Status: active & alert, normal mood, normal affect Orientation: oriented except where noted, to time, to place, to person Memory: recent memory abnormal, remote memory abnormal Head: normocephalic, atraumatic Eyes: EOM: EOMI ENMT: normal ENT inspection, hearing grossly normal Neck: supple, trachea midline Lungs: Respiratory effort: no dyspnea Auscultation: no rales/crackles, no rhonchi, decreased breath sounds Cardiovascular: Apical Impulse: not displaced Heart Auscultation: RRR, no rubs, no gallops Peripheral Pulses: Pulses: full and equal, in all extremities except if noted Bruits: none appreciated Carotid Pulse: normal on the left, normal on the right Brachial Pulses: normal on the left, normal on the right Radial Pulse: normal on the left, normal on the right Femoral Pulse: normal on the left, normal on the right Popliteal Pulse: absent on the left Posterior Tibialis Pulse: absent on the left, doppler (RLE) Dorsalis Pedis Pulse: absent on the left, doppler (RLE) Abdomen: Bowel Sounds: normal Inspection & Palpation: soft, non-distended, no tenderness, guarding & rebound Musculoskeletal: normal strength (5/5 throughout), normal tone Extremities: Upper Right: no cyanosis, no edema, no varicosities Upper Left: no cyanosis, no edema, no varicosities Lower Right: pertinent finding (Knee wound covered with dressing, managed by WC. +2 edema RLE. medial lower leg with large superficial area of skin slough and raw dermis noted. + local erythema and tenderness) Lower Left: no cyanosis, no edema, no varicosities, pertinent finding (s/p AKA, well healed) Neurologic: Cranial Nerves: grossly intact Sensation: grossly intact Assessment and Plan ASSESSMENT and PLAN: RLE leg pain RLE PAD, patent BPG Pt discussed with Dr Bermudez, does not recommend vascular surgical intervention at this time, as BPG is patent with good distal flow. Recommend pain control and local wound care per Wound Care Center. Please call if needed.
[2016-09-11] MEDS ORDERED: HEPARIN SOD (PORCINE) 1000 UNIT/ML 10 ML VIAL IV SCH ×2 (10:00)
[2016-09-11] MEDS ORDERED: VANCOMYCIN INJ 1,000 MG in SODIUM CHLORIDE 0.9% 250ML 250 ML IV SCH (16:00)
--- NOTE | 2016-09-11 18:04 | Pharmacy Progress Note ---
Pharmacy Antibiotic Consult Date of Service: Sep 11, 2016. Pharmacy Dosing Scope Pharmacy is consulted to initiate vancomycin IV dosing therapy, order appropriate labs and adjust drug dose/frequency. Subjective The patient is a 56 year old male admitted on Sep 10, 2016 at 19:06 with right calf and right knee infection. Recent hospital stay, intermediate resident, h/o MDRO, and is a dialysis pt. Objective Height (Feet): 5 Height (Inches): 5.00 Weight (Kilograms): 81.100 Lab Results (24hrs): Laboratory Tests Test 09/11/16 06:39 BUN/Creatinine Ratio 19.6 Blood Urea Nitrogen 102 mg/dl Creatinine 5.20 mg/dl White Blood Count 10.86 K/uL Micro Results: BC's x 2 are pending. Recent Pertinent Medications Ongoing Vancomycin 1gm IV q M/W/F after dialysis as out pt Assessment & Plan Vancomycin: Random vanco level this AM of 6.1mcg/ml. Vancomycin 1gm IV today after dialysis session. Will check vanco levels with AM randoms and redose as appropriate after dialysis Goal trough level estimate: between 15 - 20 mcg/mL. Peak and trough or random level has been ordered for: 09/13 with AM labs. Pharmacy will continue to follow and will adjust dose/frequency as necessary. Thank you
[2016-09-11] MEDS: ATORVASTATIN 40 MG TAB PO SCH (21:28)
[2016-09-11] MEDS: DOCUSATE SODIUM/SENNA 50/8.6MG TAB PO SCH (21:30)
[2016-09-11] MEDS: HEPARIN SOD 5000 UNIT/0.5 ML CARP SQ SCH (21:31)
[2016-09-12 00:11] VITALS: BP 128/76; PULSE 86; TEMP 37.3; O2SAT 90
[2016-09-12] MEDS ORDERED: MoRPHine SULFATE 2 MG/ML CARP IV ONE (01:15)
[2016-09-12] MEDS ORDERED: MoRPHine SULFATE 2 MG/ML CARP ONE (01:36)
[2016-09-12 04:00] VITALS: PULSE 92; O2SAT 96
[2016-09-12] MEDS: OXYCODONE HCL 15 MG TABCR (OXYCONTIN) PO SCH ×3 (05:33→21:25)
[2016-09-12] MEDS: GABAPENTIN 100 MG CAP PO SCH ×3 (05:35→21:24)
[2016-09-12 06:36] LABS: PARTIAL THROMBOPLASTIN RATIO 1.3
[2016-09-12] MEDS ORDERED: MoRPHine SULFATE 2 MG/ML CARP IV STA (07:31)
[2016-09-12] MEDS ORDERED: MoRPHine SULFATE 2 MG/ML CARP IV PRN (07:45)
[2016-09-12 08:00] VITALS: BP 120/74; PULSE 77; TEMP 37.3; O2SAT 90
[2016-09-12] MEDS: FLUTICASONE/SALMETEROL 250/50 (ADVAIR) 14 PUFF/1 INHALER INH SCH ×2 (08:08→21:23)
[2016-09-12] MEDS: PANTOprazole SOD 40 MG TAB PO SCH (08:09)
[2016-09-12] MEDS: IPRATROPIUM BROMIDE/ALBUTEROL respimat INH INH SCH ×4 (08:09→21:24)
[2016-09-12] MEDS: DEXAMETHASONE 1 MG TAB PO SCH (08:09)
[2016-09-12] MEDS: CALCIUM ACETATE 667MG GELCAP PO SCH (08:09)
[2016-09-12] MEDS: ASPIRIN 81 MG ECTAB PO SCH (08:09)
[2016-09-12] MEDS: METOPROLOL SUCC 25MG EXT REL TAB PO SCH ×2 (08:09→21:22)
[2016-09-12] MEDS: HEPARIN SOD 5000 UNIT/0.5 ML CARP SQ SCH ×2 (08:11→21:29)
[2016-09-12] MEDS: POLYETHYLENE (MIRALAX) 17 GM PACK PO SCH (08:23)
[2016-09-12] MEDS: FERROUS SULFATE 325 MG TAB PO SCH (09:07)
[2016-09-12] MEDS: LACTOBACILLUS ACIDOPHILUS (FLORANEX) TAB PO SCH ×3 (09:08→18:17)
[2016-09-12] MEDS: INSULIN ASPART 100 UNITS/ML 3 ML PEN SC SCH ×4 (09:12→21:28)
--- NOTE | 2016-09-12 10:05 | Progress Note ---
Subjective Date of Service: Sep 12, 2016. Subjective Pt evaluation today including: conversation w/ patient, physical exam, lab review, review of studies, review of inpatient medication list Saw/examined the patient in room 218 He's doing okay today; required IV morphine this morning, but he states the pain is controlled Doing well with oxycodone Problem List Medical Problems: (1) Altered mental status Status: Acute (2) Diabetes mellitus out of control Status: Acute (3) Elevated troponin Status: Acute (4) Elevated troponin Status: Acute (5) Elevated troponin Status: Acute (6) End stage renal failure on dialysis Status: Acute (7) Hyperkalemia Status: Acute (8) Hypocalcemia Status: Acute (9) Hypoglycemia Status: Acute (10) Hypokalemia Status: Acute (11) Hyponatremia Status: Acute (12) Hypotension Status: Acute (13) Hypothermia Status: Acute (14) Mass of spine Status: Acute (15) Opiate overdose Status: Acute (16) Renal failure Status: Acute (17) Renal insufficiency Status: Acute (18) Sepsis Status: Acute (19) Ulcer of toe Status: Acute (20) Ulcers of both lower extremities Status: Acute (21) UTI (urinary tract infection) Status: Acute Review of Systems Constitutional: No chills, No fever Respiratory: No shortness of breath Cardiac: No chest pain Abdomen: No diarrhea, No nausea, No pain, No vomiting Musculoskeletal: + joint pain (R LE) Medications Current Inpatient Medications Medications (Trade) Dose Ordered Sig/Edin Route Start Time Stop Time Status Last Admin Dose Admin Aspirin (Ecotrin Tab) 81 mg DAILY PO 09/11/16 09:00 10/11/16 08:59 09/12/16 08:09 81 MG Atorvastatin Calcium (Lipitor Tab) 40 mg HS PO 09/10/16 21:00 10/10/16 20:59 09/11/16 21:28 40 MG Calcium Acetate (Phoslo Cap) 1,334 mg DAILY PO 09/11/16 09:00 10/11/16 08:59 09/12/16 08:09 1,334 MG Salmeterol Xinafoate/ Fluticasone (Advair Diskus 250/50 Inh) 1 puff BID INH 09/10/16 21:00 10/10/16 20:59 09/12/16 08:08 1 PUFF Gabapentin (Neurontin Cap) 200 mg Q8 PO 09/10/16 22:00 10/10/16 21:59 09/12/16 05:35 200 MG Albuterol/ Ipratropium (Combivent Respimat Inh) 1 puffs QID INH 09/10/16 21:00 10/10/16 20:59 09/12/16 08:09 1 PUFFS Lactobacillus Acidophilus (Floranex Tab) 1 tab TIDM PO 09/11/16 07:30 10/11/16 07:29 09/12/16 09:08 1 TAB Loratadine (Claritin Tab) 10 mg DAILY PO 09/11/16 09:00 10/11/16 08:59 09/11/16 08:20 10 MG Metoprolol Succinate (Toprol Xl Tab) 25 mg BID PO 09/10/16 21:00 10/10/16 20:59 09/12/16 08:09 25 MG Oxycodone HCl (Oxycontin Tab) 30 mg Q8 PO 09/10/16 22:00 09/24/16 21:59 09/12/16 05:33 30 MG Oxycodone HCl (Roxicodone Immediate Rel Tab) 10 mg UD PRN PO 09/10/16 19:00 09/24/16 18:59 09/11/16 19:22 10 MG Senna/Docusate Sodium (Senokot S Tab) 1 tab HS PO 09/10/16 21:00 10/10/16 20:59 09/11/16 21:30 1 TAB Miscellaneous Information (Order Awaiting Action) 1 ea QS N/A 09/10/16 21:15 10/10/16 21:14 Cholecalciferol (Vitamin D Tab) 5,000 inter.unit DAILY PO 09/11/16 09:00 10/11/16 08:59 09/11/16 08:19 5,000 INTER.UNIT Dexamethasone (Decadron Tab) 2 mg DAILY PO 09/11/16 09:00 10/11/16 08:59 09/12/16 08:09 2 MG Ferrous Sulfate (Feosol Tab) 325 mg DAILY PO 09/11/16 09:00 10/11/16 08:59 09/12/16 09:07 325 MG Pantoprazole Sodium (Protonix Tab) 40 mg SuTuThSa@0900 PO 09/12/16 09:00 10/12/16 08:59 09/12/16 08:09 40 MG Polyethylene (Miralax Powder Packet) 17 gm QAM PO 09/11/16 09:00 10/11/16 08:59 09/11/16 08:12 17 GM Insulin Aspart (novoLOG ASPART) SLIDING SCALE If C... ACHS SC 09/10/16 21:00 10/10/16 20:59 09/12/16 09:12 6 UNITS Glucose (Glucose 40% Gel) 15-30 GRAMS 15 GRAMS... UD PRN PO 09/10/16 19:00 10/10/16 18:59 Glucose (Glucose Chew Tab) 4-8 Tablets 4 Tabl... UD PRN PO 09/10/16 19:00 10/10/16 18:59 Dextrose (Dextrose 50% 50ML Syringe) 25-50ML OF 50% DW IV FOR... UD PRN IV 09/10/16 19:00 10/10/16 18:59 Glucagon (Glucagon Inj) 1 mg UD PRN SQ 09/10/16 19:00 10/10/16 18:59 Acetaminophen (Tylenol Tab) 650 mg Q4H PRN PO 09/10/16 19:15 10/10/16 19:14 Ondansetron HCl (Zofran Inj) 4 mg Q6H PRN IV 09/10/16 19:15 10/10/16 19:14 Nitroglycerin (Nitrostat Tab) 0.4 mg UD PRN SL 09/10/16 19:15 10/10/16 19:14 Vancomycin HCl (Consult) 1 ea UD PRN N/A 09/10/16 20:30 10/10/16 20:29 Heparin Sodium (Porcine) (Heparin Sq 5000 Unit/0.5ml) 5,000 unit Q12 SQ 09/11/16 21:00 10/11/16 20:59 09/12/16 08:11 5,000 UNIT Morphine Sulfate (MoRPHine SULFATE INJ) 2 mg Q4 PRN IV 09/12/16 07:45 09/26/16 07:44 Objective Vital Signs Date Time Temp Pulse Resp B/P Pulse Ox O2 Delivery O2 Flow Rate FiO2 09/12/16 04:00 96 Room Air 09/12/16 04:00 92 18 09/12/16 00:11 37.3 86 18 128/76 90 Room Air 09/11/16 23:59 96 Room Air 09/11/16 20:16 36.5 98 24 109/68 93 Room Air 09/11/16 20:00 96 Room Air 09/11/16 18:31 36.6 64 145/89 09/11/16 18:00 48 113/76 09/11/16 17:45 64 94/50 09/11/16 17:30 51 155/75 09/11/16 17:15 65 124/98 09/11/16 17:00 53 122/86 09/11/16 16:45 47 111/83 09/11/16 16:30 54 118/81 09/11/16 16:15 56 118/74 09/11/16 16:00 58 118/90 09/11/16 16:00 96 Room Air 09/11/16 15:45 57 116/77 09/11/16 15:30 81 118/90 09/11/16 15:15 82 103/76 09/11/16 15:00 80 109/83 09/11/16 14:46 62 122/82 09/11/16 14:37 36.6 85 117/84 09/11/16 12:00 97 Room Air 09/11/16 11:48 36.7 98 18 104/62 97 Physical Exam General Appearance: no apparent distress Respiratory/Chest: lungs clear, normal breath sounds, no respiratory distress, no accessory muscle use Cardiovascular: regular rate, rhythm, no edema, no murmur Extremities: + pertinent finding (L AKA, R blistering ulceration at R calf, R knee) Neurologic/Psychiatric: no motor/sensory deficits, alert, normal mood/affect Laboratory Results Last 24 Hours Test 09/11/16 11:13 09/11/16 16:31 09/11/16 20:14 09/12/16 05:48 Bedside Glucose 124 mg/dl 134 mg/dl 86 mg/dl Activated Partial Thromboplast Time 33.6 SECONDS Partial Thromboplastin Ratio 1.3 Test 09/12/16 06:55 09/12/16 07:59 09/12/16 09:03 Bedside Glucose 60 mg/dl 185 mg/dl 204 mg/dl Assessment and Plan This is a 56 year old male resident at [facility] with a PMH of severe PAD, ESRD on dialysis, recent admission due to MRSA bacteremia, ischemic cardiomyopathy s/p AICD, HTN, DM2, anemia secondary to ESRD presents with R LE pain and subsequently found to have a possible arterial occlusion Severe Peripheral Artery Disease s/p R LE bypass graft s/p R LE stenting to keep bypass patent in 2014 s/p L AKA in September 2015 due to severe cellulitis/sepsis and arterial disease Follows with wound care for a R knee/calf ulceration Was seen by primary care physician on 09/10 - scheduled to have outpatient Doppler, but was in too much pain presented to the ER due to the pain R LE arterial Doppler performed here shows Right common femoral to tibioperoneal trunk graft appears patent. The right posterior tibial and peroneal arteries are likely occluded, as before. vascular surgery consulted and recommendation made that no surgical procedure would be performed IV heparin started 09/12 patient is back on aspirin + statin possible d/c back to [facility] if pain can be controlled may need pain management if pain is not controlled with oxycodone 09/11 as per vascular surgery, we can stop the IV heparin will continue aspirin and statin patient had been receiving Percocet but overnight required IV Dilaudid which helped subside the pain may need pain management if pain persists Right Superficial Calf Infection Right Knee Wound Infection Hx. of MRSA bacteriemia was hospitalized earlier in August due to MRSA bacteremia - likely due to perm cath; which was removed and replaced when blood cultures were negative He has since been on Vancomycin with dialysis - indefinite course due to multiple infections as per ID During last admission, he was discharged with Ceftaroline/Imipenem combination which has since been stopped Follows with wound care - creating a skin graft for the right knee wound 09/12 Pressure Ulcer on L buttocks, stage 2 - prior to arrival Atypical R Knee wound - prior to arrival R great toe ulcer - healing indefinite Vancomycin wound care consultation 09/11 Continue with Vancomycin indefinitely Wound care consulted for further evaluation of the knee Blood cultures are pending ESRD Mild Hyperkalemia - resolved patient receives dialysis on 09/12 HD on Friday - removed > 2L continue HD on 09/11 plan is for dialysis today as per nephrology K mildly elevated at 5.2 on admission - for dialysis today Vancomycin with dialysis Ischemic Cardiomyopathy s/p AICD Chronic Mixed Systolic/Diastolic CHF last echo - 08/22/16 * The left ventricle is moderately dilated. * Ejection Fraction = 15-20%. * There is severe global hypokinesis of the left ventricle. s/p AICD fluid management as per nephro with dialysis Coronary Artery Disease elevated troponin levels noted during last admission no cath performed, but medically managed continue aspirin, statin, b-david DM2 09/11 was initially on Lantus 5 units BID and a sliding scale his sugars having been running low with the last reading around 69 will stop the Lantus for now, and continue the sliding scale Chronic Respiratory Failure uses supplemental O2 intermittently currently is not requiring it and does not have any shortness of breath DVT ppx IV heparin stopped started subq heparin FULL CODE
[2016-09-12 11:21] VITALS: Ht 165.1 cm; Wt 82.7 kg
[2016-09-12] MEDS: CHOLECALCIFEROL 1000 INTER.UNIT TAB PO SCH (12:36)
[2016-09-12] MEDS: LORATADINE 10 MG TAB PO SCH (12:39)
[2016-09-12 15:34] VITALS: BP 118/79; PULSE 74; TEMP 37.6; O2SAT 92
[2016-09-12] MEDS: OXYCODONE HCL IR 5 MG TAB (IMMEDIATE RELEASE) PO PRN (16:41)
[2016-09-12 19:07] VITALS: BP 133/85; PULSE 89; TEMP 37.2; O2SAT 94
[2016-09-12] MEDS: DOCUSATE SODIUM/SENNA 50/8.6MG TAB PO SCH (21:22)
[2016-09-12] MEDS: ATORVASTATIN 40 MG TAB PO SCH (21:22)
[2016-09-12 23:59] VITALS: O2SAT 94
[2016-09-13] VITALS (23 sets, daily range): BP systolic 113–136; BP diastolic 70–95; PULSE 79–105; TEMP 36.4–37.3; O2SAT 92–96
[2016-09-13] MEDS: GABAPENTIN 100 MG CAP PO SCH ×3 (06:03→21:58)
[2016-09-13] MEDS: OXYCODONE HCL 15 MG TABCR (OXYCONTIN) PO SCH ×3 (06:03→21:54)
[2016-09-13 06:44] LABS: HEMATOCRIT 35.3 % (42-52); MEAN CELL VOLUME 91.5 fL (80-100); MEAN CORPUSCULAR HEMOGLOBIN 30.1 pg (25-34); MEAN CORPUSCULAR HGB CONC 32.9 g/dl (32-36); MEAN PLATELET VOLUME 9.8 fL (7.4-10.4); PLATELET COUNT 217 K/uL (130-400); RED BLOOD COUNT 3.86 M/uL (4.7-6.1); WHITE BLOOD COUNT 12.91 K/uL (4.8-10.8)
[2016-09-13 06:52] LABS: PARTIAL THROMBOPLASTIN RATIO 1.3
[2016-09-13 07:32] LABS: BUN/CREATININE RATIO 14.5 (10-20); CALCIUM 9.2 mg/dl (8.5-10.1); CREATININE 5.3 mg/dl (0.60-1.40); POTASSIUM 4.2 mmol/L (3.5-5.1)
[2016-09-13] MEDS: LACTOBACILLUS ACIDOPHILUS (FLORANEX) TAB PO SCH ×3 (08:11→17:16)
[2016-09-13] MEDS: IPRATROPIUM BROMIDE/ALBUTEROL respimat INH INH SCH ×4 (08:11→21:55)
[2016-09-13] MEDS: CALCIUM ACETATE 667MG GELCAP PO SCH ×3 (08:11→17:16)
[2016-09-13] MEDS: FLUTICASONE/SALMETEROL 250/50 (ADVAIR) 14 PUFF/1 INHALER INH SCH ×2 (08:11→21:56)
[2016-09-13] MEDS: POLYETHYLENE (MIRALAX) 17 GM PACK PO SCH (08:12)
[2016-09-13] MEDS: INSULIN ASPART 100 UNITS/ML 3 ML PEN SC SCH ×4 (08:17→20:12)
[2016-09-13] MEDS: HEPARIN SOD 5000 UNIT/0.5 ML CARP SQ SCH ×2 (08:23→21:54)
[2016-09-13] MEDS: OXYCODONE HCL IR 5 MG TAB (IMMEDIATE RELEASE) PO PRN ×2 (08:27→21:53)
--- NOTE | 2016-09-13 08:31 | Nephrology Progress Note ---
Nephrology Progress Note Date of Service: Sep 13, 2016. Subjective 56 yo male on esrd who is complaining of pain in his right knee and difficulty moving it. no sob. no chest pain.appetite is good. Objective Date Time Temp Pulse Resp B/P Pulse Ox O2 Delivery O2 Flow Rate FiO2 09/13/16 07:34 37.0 90 16 114/81 96 Room Air 09/13/16 04:31 37.1 83 19 120/79 96 Room Air 09/13/16 04:00 94 Room Air 09/13/16 00:20 37.0 91 19 129/86 93 Room Air 09/12/16 23:59 94 Room Air 09/12/16 20:00 Room Air 09/12/16 19:07 37.2 89 18 133/85 94 Room Air 09/12/16 16:00 Room Air 09/12/16 15:34 37.6 74 18 118/79 92 Room Air 09/12/16 12:00 Room Air Physical Exam: General-aaox3 Eyes-no scleral icterus ENT-mmm Neck-supple Lungs-cta Heart-rrr Abdomen-bs+ s/nt/nd Extremities-right knee wrapped, left aka Neuro-nonfocal Current Inpatient Medications Medications (Trade) Dose Ordered Sig/Edin Route Start Time Stop Time Status Last Admin Dose Admin Aspirin (Ecotrin Tab) 81 mg DAILY PO 09/11/16 09:00 10/11/16 08:59 09/12/16 08:09 81 MG Atorvastatin Calcium (Lipitor Tab) 40 mg HS PO 09/10/16 21:00 10/10/16 20:59 09/12/16 21:22 40 MG Calcium Acetate (Phoslo Cap) 1,334 mg DAILY PO 09/11/16 09:00 10/11/16 08:59 09/13/16 08:11 1,334 MG Salmeterol Xinafoate/ Fluticasone (Advair Diskus 250/50 Inh) 1 puff BID INH 09/10/16 21:00 10/10/16 20:59 09/13/16 08:11 1 PUFF Gabapentin (Neurontin Cap) 200 mg Q8 PO 09/10/16 22:00 10/10/16 21:59 09/13/16 06:03 200 MG Albuterol/ Ipratropium (Combivent Respimat Inh) 1 puffs QID INH 09/10/16 21:00 10/10/16 20:59 09/13/16 08:11 1 PUFFS Lactobacillus Acidophilus (Floranex Tab) 1 tab TIDM PO 09/11/16 07:30 10/11/16 07:29 09/13/16 08:11 1 TAB Loratadine (Claritin Tab) 10 mg DAILY PO 09/11/16 09:00 10/11/16 08:59 09/12/16 12:39 10 MG Metoprolol Succinate (Toprol Xl Tab) 25 mg BID PO 09/10/16 21:00 10/10/16 20:59 09/12/16 21:22 25 MG Oxycodone HCl (Oxycontin Tab) 30 mg Q8 PO 09/10/16 22:00 09/24/16 21:59 09/13/16 06:03 30 MG Oxycodone HCl (Roxicodone Immediate Rel Tab) 10 mg UD PRN PO 09/10/16 19:00 09/24/16 18:59 09/12/16 16:41 10 MG Senna/Docusate Sodium (Senokot S Tab) 1 tab HS PO 09/10/16 21:00 10/10/16 20:59 09/12/16 21:22 1 TAB Miscellaneous Information (Order Awaiting Action) 1 ea QS N/A 09/10/16 21:15 10/10/16 21:14 Cholecalciferol (Vitamin D Tab) 5,000 inter.unit DAILY PO 09/11/16 09:00 10/11/16 08:59 09/12/16 12:36 5,000 INTER.UNIT Dexamethasone (Decadron Tab) 2 mg DAILY PO 09/11/16 09:00 10/11/16 08:59 09/12/16 08:09 2 MG Ferrous Sulfate (Feosol Tab) 325 mg DAILY PO 09/11/16 09:00 10/11/16 08:59 09/12/16 09:07 325 MG Pantoprazole Sodium (Protonix Tab) 40 mg SuTuThSa@0900 PO 09/12/16 09:00 10/12/16 08:59 09/12/16 08:09 40 MG Polyethylene (Miralax Powder Packet) 17 gm QAM PO 09/11/16 09:00 10/11/16 08:59 09/13/16 08:12 17 GM Insulin Aspart (novoLOG ASPART) SLIDING SCALE If C... ACHS SC 09/10/16 21:00 10/10/16 20:59 09/13/16 08:17 9 UNITS Glucose (Glucose 40% Gel) 15-30 GRAMS 15 GRAMS... UD PRN PO 09/10/16 19:00 10/10/16 18:59 Glucose (Glucose Chew Tab) 4-8 Tablets 4 Tabl... UD PRN PO 09/10/16 19:00 10/10/16 18:59 Dextrose (Dextrose 50% 50ML Syringe) 25-50ML OF 50% DW IV FOR... UD PRN IV 09/10/16 19:00 10/10/16 18:59 Glucagon (Glucagon Inj) 1 mg UD PRN SQ 09/10/16 19:00 10/10/16 18:59 Acetaminophen (Tylenol Tab) 650 mg Q4H PRN PO 09/10/16 19:15 10/10/16 19:14 Ondansetron HCl (Zofran Inj) 4 mg Q6H PRN IV 09/10/16 19:15 10/10/16 19:14 Nitroglycerin (Nitrostat Tab) 0.4 mg UD PRN SL 09/10/16 19:15 10/10/16 19:14 Vancomycin HCl (Consult) 1 ea UD PRN N/A 09/10/16 20:30 10/10/16 20:29 Heparin Sodium (Porcine) (Heparin Sq 5000 Unit/0.5ml) 5,000 unit Q12 SQ 09/11/16 21:00 10/11/16 20:59 09/13/16 08:23 5,000 UNIT Morphine Sulfate (MoRPHine SULFATE INJ) 2 mg Q4 PRN IV 09/12/16 07:45 09/26/16 07:44 Last 24 Hours Test 09/12/16 09:03 09/12/16 11:03 09/12/16 16:27 09/12/16 20:16 Bedside Glucose 204 mg/dl 204 mg/dl 267 mg/dl 271 mg/dl Test 09/13/16 06:15 09/13/16 06:16 White Blood Count 12.91 K/uL Red Blood Count 3.86 M/uL Hemoglobin 11.6 g/dL Hematocrit 35.3 % Mean Corpuscular Volume 91.5 fL Mean Corpuscular Hemoglobin 30.1 pg Mean Corpuscular Hemoglobin Concent 32.9 g/dl RDW Standard Deviation 49.7 fL RDW Coefficient of Variation 14.8 % Platelet Count 217 K/uL Mean Platelet Volume 9.8 fL Activated Partial Thromboplast Time 34.9 SECONDS Partial Thromboplastin Ratio 1.3 Sodium Level 131 mmol/L Potassium Level 4.2 mmol/L Chloride Level 94 mmol/L Carbon Dioxide Level 23 mmol/L Anion Gap 14.0 mmol/L Blood Urea Nitrogen 79 mg/dl Creatinine 5.30 mg/dl Est Creatinine Clear Calc Drug Dose 15.1 ml/min Estimated GFR () 12.8 Estimated GFR (Non- 11.1 BUN/Creatinine Ratio 14.5 Random Glucose 138 mg/dl Calcium Level 9.2 mg/dl Random Vancomycin Level 15.5 mcg/ml Bedside Glucose 156 mg/dl Assessment & Plan ESRD-for dialysis today. k is better today so will dialyze on a 3k bath however usually dialyzes on a 2k bath. Anemia of renal failure-hg levels are above 11 so will hold on procrit jaime-will switch binders to be given with meals to help control phos levels better.
--- NOTE | 2016-09-13 09:40 | Progress Note ---
Subjective Date of Service: Sep 13, 2016. Subjective Pt evaluation today including: conversation w/ patient, physical exam, lab review, review of studies, review of inpatient medication list Saw/examined the patient in room 218 He's doing okay today; states that when they put Xeroform on his R calf, it burned Did not require IV pain medications; states his pain is controlled with PO oxycodone Problem List Medical Problems: (1) Altered mental status Status: Acute (2) Diabetes mellitus out of control Status: Acute (3) Elevated troponin Status: Acute (4) Elevated troponin Status: Acute (5) Elevated troponin Status: Acute (6) End stage renal failure on dialysis Status: Acute (7) Hyperkalemia Status: Acute (8) Hypocalcemia Status: Acute (9) Hypoglycemia Status: Acute (10) Hypokalemia Status: Acute (11) Hyponatremia Status: Acute (12) Hypotension Status: Acute (13) Hypothermia Status: Acute (14) Mass of spine Status: Acute (15) Opiate overdose Status: Acute (16) Renal failure Status: Acute (17) Renal insufficiency Status: Acute (18) Sepsis Status: Acute (19) Ulcer of toe Status: Acute (20) Ulcers of both lower extremities Status: Acute (21) UTI (urinary tract infection) Status: Acute Review of Systems Constitutional: No chills, No fever, No weakness Respiratory: No shortness of breath Cardiac: No chest pain Abdomen: No GI bleeding, No constipation, No diarrhea, No nausea, No pain, No vomiting Musculoskeletal: + joint pain (R LE) Medications Current Inpatient Medications Medications (Trade) Dose Ordered Sig/Edin Route Start Time Stop Time Status Last Admin Dose Admin Aspirin (Ecotrin Tab) 81 mg DAILY PO 09/11/16 09:00 10/11/16 08:59 09/12/16 08:09 81 MG Atorvastatin Calcium (Lipitor Tab) 40 mg HS PO 09/10/16 21:00 10/10/16 20:59 09/12/16 21:22 40 MG Salmeterol Xinafoate/ Fluticasone (Advair Diskus 250/50 Inh) 1 puff BID INH 09/10/16 21:00 10/10/16 20:59 09/13/16 08:11 1 PUFF Gabapentin (Neurontin Cap) 200 mg Q8 PO 09/10/16 22:00 10/10/16 21:59 09/13/16 06:03 200 MG Albuterol/ Ipratropium (Combivent Respimat Inh) 1 puffs QID INH 09/10/16 21:00 10/10/16 20:59 09/13/16 08:11 1 PUFFS Lactobacillus Acidophilus (Floranex Tab) 1 tab TIDM PO 09/11/16 07:30 10/11/16 07:29 09/13/16 08:11 1 TAB Loratadine (Claritin Tab) 10 mg DAILY PO 09/11/16 09:00 10/11/16 08:59 09/12/16 12:39 10 MG Metoprolol Succinate (Toprol Xl Tab) 25 mg BID PO 09/10/16 21:00 10/10/16 20:59 09/12/16 21:22 25 MG Oxycodone HCl (Oxycontin Tab) 30 mg Q8 PO 09/10/16 22:00 09/24/16 21:59 09/13/16 06:03 30 MG Oxycodone HCl (Roxicodone Immediate Rel Tab) 10 mg UD PRN PO 09/10/16 19:00 09/24/16 18:59 09/13/16 08:27 10 MG Senna/Docusate Sodium (Senokot S Tab) 1 tab HS PO 09/10/16 21:00 10/10/16 20:59 09/12/16 21:22 1 TAB Miscellaneous Information (Order Awaiting Action) 1 ea QS N/A 09/10/16 21:15 10/10/16 21:14 Cholecalciferol (Vitamin D Tab) 5,000 inter.unit DAILY PO 09/11/16 09:00 10/11/16 08:59 09/12/16 12:36 5,000 INTER.UNIT Dexamethasone (Decadron Tab) 2 mg DAILY PO 09/11/16 09:00 10/11/16 08:59 09/12/16 08:09 2 MG Ferrous Sulfate (Feosol Tab) 325 mg DAILY PO 09/11/16 09:00 10/11/16 08:59 09/12/16 09:07 325 MG Pantoprazole Sodium (Protonix Tab) 40 mg SuTuThSa@0900 PO 09/12/16 09:00 10/12/16 08:59 09/12/16 08:09 40 MG Polyethylene (Miralax Powder Packet) 17 gm QAM PO 09/11/16 09:00 10/11/16 08:59 09/13/16 08:12 17 GM Insulin Aspart (novoLOG ASPART) SLIDING SCALE If C... ACHS SC 09/10/16 21:00 10/10/16 20:59 09/13/16 08:17 9 UNITS Glucose (Glucose 40% Gel) 15-30 GRAMS 15 GRAMS... UD PRN PO 09/10/16 19:00 10/10/16 18:59 Glucose (Glucose Chew Tab) 4-8 Tablets 4 Tabl... UD PRN PO 09/10/16 19:00 10/10/16 18:59 Dextrose (Dextrose 50% 50ML Syringe) 25-50ML OF 50% DW IV FOR... UD PRN IV 09/10/16 19:00 10/10/16 18:59 Glucagon (Glucagon Inj) 1 mg UD PRN SQ 09/10/16 19:00 10/10/16 18:59 Acetaminophen (Tylenol Tab) 650 mg Q4H PRN PO 09/10/16 19:15 10/10/16 19:14 Ondansetron HCl (Zofran Inj) 4 mg Q6H PRN IV 09/10/16 19:15 10/10/16 19:14 Nitroglycerin (Nitrostat Tab) 0.4 mg UD PRN SL 09/10/16 19:15 10/10/16 19:14 Vancomycin HCl (Consult) 1 ea UD PRN N/A 09/10/16 20:30 10/10/16 20:29 Heparin Sodium (Porcine) (Heparin Sq 5000 Unit/0.5ml) 5,000 unit Q12 SQ 09/11/16 21:00 10/11/16 20:59 09/13/16 08:23 5,000 UNIT Morphine Sulfate (MoRPHine SULFATE INJ) 2 mg Q4 PRN IV 09/12/16 07:45 09/26/16 07:44 Calcium Acetate 1334 mg 1,334 mg TIDM PO 09/13/16 11:30 10/13/16 11:29 Vancomycin HCl/ Sodium Chloride (Vancomycin Inj/ Nss 250ml) 265 ml @ 125 mls/hr Fr@1600 IV 09/13/16 16:00 09/13/16 23:59 Objective Vital Signs Date Time Temp Pulse Resp B/P Pulse Ox O2 Delivery O2 Flow Rate FiO2 09/13/16 07:34 37.0 90 16 114/81 96 Room Air 09/13/16 04:31 37.1 83 19 120/79 96 Room Air 09/13/16 04:00 94 Room Air 09/13/16 00:20 37.0 91 19 129/86 93 Room Air 09/12/16 23:59 94 Room Air 09/12/16 20:00 Room Air 09/12/16 19:07 37.2 89 18 133/85 94 Room Air 09/12/16 16:00 Room Air 09/12/16 15:34 37.6 74 18 118/79 92 Room Air 09/12/16 12:00 Room Air Physical Exam General Appearance: no apparent distress ENT: hearing grossly normal Respiratory/Chest: lungs clear, normal breath sounds, no respiratory distress, no accessory muscle use Cardiovascular: regular rate, rhythm, no edema, no murmur Abdomen: + pertinent finding (bleeding at heparin injection site in abdomen) Extremities: + pertinent finding (L AKA, R multiple wounds, R knee, R calf which are dressed) Laboratory Results Last 24 Hours Test 09/12/16 11:03 09/12/16 16:27 09/12/16 20:16 09/13/16 06:15 Bedside Glucose 204 mg/dl 267 mg/dl 271 mg/dl White Blood Count 12.91 K/uL Red Blood Count 3.86 M/uL Hemoglobin 11.6 g/dL Hematocrit 35.3 % Mean Corpuscular Volume 91.5 fL Mean Corpuscular Hemoglobin 30.1 pg Mean Corpuscular Hemoglobin Concent 32.9 g/dl RDW Standard Deviation 49.7 fL RDW Coefficient of Variation 14.8 % Platelet Count 217 K/uL Mean Platelet Volume 9.8 fL Activated Partial Thromboplast Time 34.9 SECONDS Partial Thromboplastin Ratio 1.3 Sodium Level 131 mmol/L Potassium Level 4.2 mmol/L Chloride Level 94 mmol/L Carbon Dioxide Level 23 mmol/L Anion Gap 14.0 mmol/L Blood Urea Nitrogen 79 mg/dl Creatinine 5.30 mg/dl Est Creatinine Clear Calc Drug Dose 15.1 ml/min Estimated GFR () 12.8 Estimated GFR (Non- 11.1 BUN/Creatinine Ratio 14.5 Random Glucose 138 mg/dl Calcium Level 9.2 mg/dl Random Vancomycin Level 15.5 mcg/ml Test 09/13/16 06:16 Bedside Glucose 156 mg/dl Assessment and Plan This is a 56 year old male resident at [facility] with a PMH of severe PAD, ESRD on dialysis, recent admission due to MRSA bacteremia, ischemic cardiomyopathy s/p AICD, HTN, DM2, anemia secondary to ESRD presents with R LE pain and subsequently found to have a possible arterial occlusion Severe Peripheral Artery Disease s/p R LE bypass graft s/p R LE stenting to keep bypass patent in 2014 s/p L AKA in September 2015 due to severe cellulitis/sepsis and arterial disease Follows with wound care for a R knee/calf ulceration Was seen by primary care physician on 09/10 - scheduled to have outpatient Doppler, but was in too much pain presented to the ER due to the pain R LE arterial Doppler performed here shows Right common femoral to tibioperoneal trunk graft appears patent. The right posterior tibial and peroneal arteries are likely occluded, as before. vascular surgery consulted and recommendation made that no surgical procedure would be performed IV heparin started 09/13 will continue aspirin and statin continue home pain medications, which work for the patient d/c back to [facility] in 1-2 days 09/12 patient is back on aspirin + statin possible d/c back to [facility] if pain can be controlled may need pain management if pain is not controlled with oxycodone 09/11 as per vascular surgery, we can stop the IV heparin will continue aspirin and statin patient had been receiving Percocet but overnight required IV Dilaudid which helped subside the pain may need pain management if pain persists Right Superficial Calf Infection Right Knee Wound Infection Hx. of MRSA bacteriemia was hospitalized earlier in August due to MRSA bacteremia - likely due to perm cath; which was removed and replaced when blood cultures were negative He has since been on Vancomycin with dialysis - indefinite course due to multiple infections as per ID During last admission, he was discharged with Ceftaroline/Imipenem combination which has since been stopped Follows with wound care - creating a skin graft for the right knee wound 09/13 wound care consult placed to Dr. Macario R knee with eschar R calf with blistering ulcer continue Vanco with dialysis indefinitely 09/12 Atypical R Knee wound - prior to arrival R great toe ulcer - healing indefinite Vancomycin wound care consultation 09/11 Continue with Vancomycin indefinitely Wound care consulted for further evaluation of the knee Blood cultures are pending ESRD Mild Hyperkalemia - resolved patient receives dialysis on 09/13 for HD today Vancomycin with dialysis 09/12 HD on Friday - removed > 2L continue HD on 09/11 plan is for dialysis today as per nephrology K mildly elevated at 5.2 on admission - for dialysis today Vancomycin with dialysis Ischemic Cardiomyopathy s/p AICD Chronic Mixed Systolic/Diastolic CHF last echo - 08/22/16 * The left ventricle is moderately dilated. * Ejection Fraction = 15-20%. * There is severe global hypokinesis of the left ventricle. s/p AICD fluid management as per nephro with dialysis Coronary Artery Disease elevated troponin levels noted during last admission no cath performed, but medically managed continue aspirin, statin, b-david DM2 09/11 was initially on Lantus 5 units BID and a sliding scale his sugars having been running low with the last reading around 69 will stop the Lantus for now, and continue the sliding scale Chronic Respiratory Failure uses supplemental O2 intermittently currently is not requiring it and does not have any shortness of breath DVT ppx IV heparin stopped started subq heparin FULL CODE
[2016-09-13] MEDS: LORATADINE 10 MG TAB PO SCH (11:02)
[2016-09-13] MEDS: DEXAMETHASONE 1 MG TAB PO SCH (11:03)
[2016-09-13] MEDS: FERROUS SULFATE 325 MG TAB PO SCH (11:03)
[2016-09-13] MEDS: ASPIRIN 81 MG ECTAB PO SCH (11:03)
[2016-09-13] MEDS: CHOLECALCIFEROL 1000 INTER.UNIT TAB PO SCH (11:03)
--- NOTE | 2016-09-13 11:50 | Pharmacy Progress Note ---
Pharmacy Antibiotic Prog Note Date of Service Sep 13, 2016. Subjective The patient is currently receiving Vancomycin empiric dosing based on random levels for ESRD/HD The patient is currently on day # 3 of Vancomycin IV therapy (during hospitalization) Objective Height (Feet): 5 Height (Inches): 5.00 Weight (Kilograms): 81.800 Levels: Item Value Date Time Random Vancomycin Level 15.5 mcg/ml 09/13/16 0615 Micro Results: Item Value Date Time Blood Culture - Preliminary Resulted 09/10/16 1720 Blood NO GROWTH TO DATE. Blood Culture - Preliminary Resulted 09/10/16 1726 Blood NO GROWTH TO DATE. Assessment & Plan 56yo male on IV vancomycin due to recent MRSA bacteremia secondary to perm cath infection. Per ID, Pt to be maintained on IV Vancomycin indefinitely for chronic suppressive therapy d/t multiple infections. PLAN: * Vancomycin random level this morning is therapeutic at 15.5mcg/ml * Pt scheduled for HD today & will need a dose of Vancomycin after dialysis * Based on pre-HD vancomycin level of 15.5mcg/ml, post-HD vancomycin dosing should be ~ 500-750mg * Will give Vancomycin 750mg IV x 1 dose today after HD. Chose the higher side of the dosing range since pre-HD level is on the lower end of range and after today, Pt will not receive HD until Friday. * Check random vancomycin level Friday prior to HD * Continue to re-dose vancomycin after HD treatments based on pre-HD vanco level * Goal trough level estimate: between 15 - 20 mcg/mL Pharmacy will continue to follow and will adjust dose/frequency as necessary. Thank you
--- NOTE | 2016-09-13 11:59 | PROGRESS NOTE ---
DATE: 09/13/2016 SUBJECTIVE: The patient was recently admitted to [facility] for evaluation of arterial insufficiency to the right lower extremity. The patient currently is denying any significant pain in the leg. He did, however, develop a blister formation on the lower calf region, which was subsequently treated with Xeroform and gauze 2 days prior. The patient denies any other systemic complaints at this time. OBJECTIVE: The patient's vital signs were reviewed and found to be unremarkable. The patient is afebrile. The right knee region post-epidermal grafting measures 3.8 x 9 x 0.1 cm in a clustered formation. There is increased marginal epithelization. There is, however, some increased slough in the base. There is no periwound erythema or active drainage present. The deroofed blister formation on the medial aspect of the right calf measures 14.1 x 10.1 x 0.1. There is no central slough. No active drainage. No periwound erythema noted. ASSESSMENT: 1. Atypical wound right knee, 4 weeks post-staged epidermal grafting, with improvement. 2. New blister formation right lower extremity, stable. PLAN: At this time, no debridement is indicated. The knee site will be managed with Santyl and gauze, changed on a daily basis. The blister formation region will be managed with Xeroform and gauze, changed daily. The patient will be reevaluated in 1 week.
[2016-09-13] MEDS ORDERED: NURSING VERBAL MED ORDER ONE (12:00)
[2016-09-13] MEDS: COLLAGENASE OINT 30 GM TUBE EXT SCH (13:57)
[2016-09-13] MEDS ORDERED: VANCOMYCIN INJ 750 MG in SODIUM CHLORIDE 0.9% 250ML 250 ML IV SCH (16:00)
[2016-09-13] MEDS: METOPROLOL SUCC 25MG EXT REL TAB PO SCH ×2 (21:00→21:59)
[2016-09-13] MEDS: DOCUSATE SODIUM/SENNA 50/8.6MG TAB PO SCH (21:00)
[2016-09-13] MEDS: ATORVASTATIN 40 MG TAB PO SCH (21:57)
[2016-09-14 03:47] VITALS: BP 118/81; PULSE 90; TEMP 37; O2SAT 100
[2016-09-14 04:00] VITALS: O2SAT 95
[2016-09-14] MEDS: OXYCODONE HCL 15 MG TABCR (OXYCONTIN) PO SCH ×2 (05:40→13:41)
[2016-09-14] MEDS: GABAPENTIN 100 MG CAP PO SCH ×2 (05:40→13:40)
[2016-09-14] MEDS: INSULIN ASPART 100 UNITS/ML 3 ML PEN SC SCH ×2 (07:00→11:32)
[2016-09-14 07:29] VITALS: BP 123/65; PULSE 84; TEMP 36.9; O2SAT 96
[2016-09-14 07:29] LABS: HEMATOCRIT 36.6 % (42-52); MEAN CELL VOLUME 92.7 fL (80-100); MEAN CORPUSCULAR HEMOGLOBIN 29.9 pg (25-34); MEAN CORPUSCULAR HGB CONC 32.2 g/dl (32-36); MEAN PLATELET VOLUME 9.9 fL (7.4-10.4); PLATELET COUNT 244 K/uL (130-400); RED BLOOD COUNT 3.95 M/uL (4.7-6.1); WHITE BLOOD COUNT 10.54 K/uL (4.8-10.8)
[2016-09-14 07:35] LABS: PARTIAL THROMBOPLASTIN RATIO 1.1
[2016-09-14 08:04] LABS: BUN/CREATININE RATIO 12.8 (10-20); CALCIUM 9.4 mg/dl (8.5-10.1); CREATININE 4.1 mg/dl (0.60-1.40); POTASSIUM 4.4 mmol/L (3.5-5.1)
[2016-09-14] MEDS: COLLAGENASE OINT 30 GM TUBE EXT SCH (09:00)
[2016-09-14] MEDS: POLYETHYLENE (MIRALAX) 17 GM PACK PO SCH (09:33)
[2016-09-14] MEDS: IPRATROPIUM BROMIDE/ALBUTEROL respimat INH INH SCH ×2 (09:34→13:41)
[2016-09-14] MEDS: FLUTICASONE/SALMETEROL 250/50 (ADVAIR) 14 PUFF/1 INHALER INH SCH (09:34)
[2016-09-14] MEDS: METOPROLOL SUCC 25MG EXT REL TAB PO SCH (09:38)
[2016-09-14] MEDS: PANTOprazole SOD 40 MG TAB PO SCH (09:38)
--- NOTE | 2016-09-14 09:38 | Progress Note ---
Subjective Date of Service: Sep 14, 2016. Subjective Pt evaluation today including: conversation w/ patient, physical exam, lab review, review of studies, review of inpatient medication list Saw/examined the patient in room 218 c/o R knee pain; controlled with oral medications No other issues to note Problem List Medical Problems: (1) Altered mental status Status: Acute (2) Diabetes mellitus out of control Status: Acute (3) Elevated troponin Status: Acute (4) Elevated troponin Status: Acute (5) Elevated troponin Status: Acute (6) End stage renal failure on dialysis Status: Acute (7) Hyperkalemia Status: Acute (8) Hypocalcemia Status: Acute (9) Hypoglycemia Status: Acute (10) Hypokalemia Status: Acute (11) Hyponatremia Status: Acute (12) Hypotension Status: Acute (13) Hypothermia Status: Acute (14) Mass of spine Status: Acute (15) Opiate overdose Status: Acute (16) Renal failure Status: Acute (17) Renal insufficiency Status: Acute (18) Sepsis Status: Acute (19) Ulcer of toe Status: Acute (20) Ulcers of both lower extremities Status: Acute (21) UTI (urinary tract infection) Status: Acute Review of Systems Constitutional: No chills, No fever, No weakness Respiratory: No shortness of breath Cardiac: No chest pain Abdomen: No diarrhea, No nausea, No pain, No vomiting Musculoskeletal: + joint pain (R knee) Medications Current Inpatient Medications Medications (Trade) Dose Ordered Sig/Edin Route Start Time Stop Time Status Last Admin Dose Admin Aspirin (Ecotrin Tab) 81 mg DAILY PO 09/11/16 09:00 10/11/16 08:59 09/13/16 11:03 81 MG Atorvastatin Calcium (Lipitor Tab) 40 mg HS PO 09/10/16 21:00 10/10/16 20:59 09/13/16 21:57 40 MG Salmeterol Xinafoate/ Fluticasone (Advair Diskus 250/50 Inh) 1 puff BID INH 09/10/16 21:00 10/10/16 20:59 09/13/16 21:56 1 PUFF Gabapentin (Neurontin Cap) 200 mg Q8 PO 09/10/16 22:00 10/10/16 21:59 09/14/16 05:40 200 MG Albuterol/ Ipratropium (Combivent Respimat Inh) 1 puffs QID INH 09/10/16 21:00 10/10/16 20:59 09/13/16 21:55 1 PUFFS Lactobacillus Acidophilus (Floranex Tab) 1 tab TIDM PO 09/11/16 07:30 10/11/16 07:29 09/13/16 17:16 1 TAB Loratadine (Claritin Tab) 10 mg DAILY PO 09/11/16 09:00 10/11/16 08:59 09/13/16 11:02 10 MG Metoprolol Succinate (Toprol Xl Tab) 25 mg BID PO 09/10/16 21:00 10/10/16 20:59 09/13/16 21:59 25 MG Oxycodone HCl (Oxycontin Tab) 30 mg Q8 PO 09/10/16 22:00 09/24/16 21:59 09/14/16 05:40 30 MG Oxycodone HCl (Roxicodone Immediate Rel Tab) 10 mg UD PRN PO 09/10/16 19:00 09/24/16 18:59 09/13/16 21:53 10 MG Senna/Docusate Sodium (Senokot S Tab) 1 tab HS PO 09/10/16 21:00 10/10/16 20:59 09/12/16 21:22 1 TAB Miscellaneous Information (Order Awaiting Action) 1 ea QS N/A 09/10/16 21:15 10/10/16 21:14 Cholecalciferol (Vitamin D Tab) 5,000 inter.unit DAILY PO 09/11/16 09:00 10/11/16 08:59 09/13/16 11:03 5,000 INTER.UNIT Dexamethasone (Decadron Tab) 2 mg DAILY PO 09/11/16 09:00 10/11/16 08:59 09/13/16 11:03 2 MG Ferrous Sulfate (Feosol Tab) 325 mg DAILY PO 09/11/16 09:00 10/11/16 08:59 09/13/16 11:03 325 MG Pantoprazole Sodium (Protonix Tab) 40 mg SuTuThSa@0900 PO 09/12/16 09:00 10/12/16 08:59 09/12/16 08:09 40 MG Polyethylene (Miralax Powder Packet) 17 gm QAM PO 09/11/16 09:00 10/11/16 08:59 09/13/16 08:12 17 GM Insulin Aspart (novoLOG ASPART) SLIDING SCALE If C... ACHS SC 09/10/16 21:00 10/10/16 20:59 09/13/16 17:20 9 UNITS Glucose (Glucose 40% Gel) 15-30 GRAMS 15 GRAMS... UD PRN PO 09/10/16 19:00 10/10/16 18:59 Glucose (Glucose Chew Tab) 4-8 Tablets 4 Tabl... UD PRN PO 09/10/16 19:00 10/10/16 18:59 Dextrose (Dextrose 50% 50ML Syringe) 25-50ML OF 50% DW IV FOR... UD PRN IV 09/10/16 19:00 10/10/16 18:59 Glucagon (Glucagon Inj) 1 mg UD PRN SQ 09/10/16 19:00 10/10/16 18:59 Acetaminophen (Tylenol Tab) 650 mg Q4H PRN PO 09/10/16 19:15 10/10/16 19:14 Ondansetron HCl (Zofran Inj) 4 mg Q6H PRN IV 09/10/16 19:15 10/10/16 19:14 Nitroglycerin (Nitrostat Tab) 0.4 mg UD PRN SL 09/10/16 19:15 10/10/16 19:14 Vancomycin HCl (Consult) 1 ea UD PRN N/A 09/10/16 20:30 10/10/16 20:29 Heparin Sodium (Porcine) (Heparin Sq 5000 Unit/0.5ml) 5,000 unit Q12 SQ 09/11/16 21:00 10/11/16 20:59 09/13/16 21:54 5,000 UNIT Calcium Acetate (Phoslo Cap) 1,334 mg TIDM PO 09/13/16 11:30 10/13/16 11:29 09/13/16 17:16 1,334 MG Collagenase (Santyl Oint) 1 appln DAILY EXT 09/13/16 13:00 10/13/16 12:59 09/13/16 13:57 1 APPLN Objective Vital Signs Date Time Temp Pulse Resp B/P Pulse Ox O2 Delivery O2 Flow Rate FiO2 09/14/16 07:29 36.9 84 18 123/65 96 09/14/16 04:00 95 Room Air 09/14/16 03:47 37.0 90 18 118/81 100 Room Air 09/13/16 23:59 95 Room Air 09/13/16 23:38 37.1 105 22 131/83 95 Room Air 09/13/16 21:52 36.4 93 136/95 09/13/16 21:00 79 124/70 09/13/16 20:45 82 121/88 09/13/16 20:30 93 121/90 09/13/16 20:15 90 118/89 09/13/16 20:00 87 119/80 09/13/16 20:00 Room Air 09/13/16 19:45 85 113/77 09/13/16 19:30 86 118/91 09/13/16 19:15 82 127/94 09/13/16 19:00 91 126/89 09/13/16 18:45 89 124/92 09/13/16 18:30 89 131/84 09/13/16 18:15 92 120/92 09/13/16 18:12 91 130/88 09/13/16 18:05 36.6 96 126/89 09/13/16 16:00 Room Air 09/13/16 15:09 37.3 93 20 121/82 95 Room Air 09/13/16 12:00 Room Air 09/13/16 11:21 37.2 96 16 122/82 92 Room Air Physical Exam General Appearance: no apparent distress Respiratory/Chest: lungs clear, normal breath sounds, no respiratory distress, no accessory muscle use Cardiovascular: regular rate, rhythm, no edema, no murmur Abdomen: non tender, soft, + distended Extremities: + pertinent finding (L AKA, R knee is wrapped, R calf blister) Laboratory Results Last 24 Hours Test 09/13/16 11:35 09/13/16 16:12 09/13/16 20:09 09/14/16 06:34 Bedside Glucose 184 mg/dl 239 mg/dl 137 mg/dl 152 mg/dl Test 09/14/16 07:10 White Blood Count 10.54 K/uL Red Blood Count 3.95 M/uL Hemoglobin 11.8 g/dL Hematocrit 36.6 % Mean Corpuscular Volume 92.7 fL Mean Corpuscular Hemoglobin 29.9 pg Mean Corpuscular Hemoglobin Concent 32.2 g/dl RDW Standard Deviation 50.4 fL RDW Coefficient of Variation 14.8 % Platelet Count 244 K/uL Mean Platelet Volume 9.9 fL Activated Partial Thromboplast Time 29.6 SECONDS Partial Thromboplastin Ratio 1.1 Sodium Level 133 mmol/L Potassium Level 4.4 mmol/L Chloride Level 96 mmol/L Carbon Dioxide Level 27 mmol/L Anion Gap 10.0 mmol/L Blood Urea Nitrogen 52 mg/dl Creatinine 4.10 mg/dl Est Creatinine Clear Calc Drug Dose 19.7 ml/min Estimated GFR () 17.5 Estimated GFR (Non- 15.1 BUN/Creatinine Ratio 12.8 Random Glucose 149 mg/dl Calcium Level 9.4 mg/dl Assessment and Plan This is a 56 year old male resident at [facility] with a PMH of severe PAD, ESRD on dialysis, recent admission due to MRSA bacteremia, ischemic cardiomyopathy s/p AICD, HTN, DM2, anemia secondary to ESRD presents with R LE pain and subsequently found to have a possible arterial occlusion Severe Peripheral Artery Disease s/p R LE bypass graft s/p R LE stenting to keep bypass patent in 2014 s/p L AKA in September 2015 due to severe cellulitis/sepsis and arterial disease Follows with wound care for a R knee/calf ulceration Was seen by primary care physician on 09/10 - scheduled to have outpatient Doppler, but was in too much pain presented to the ER due to the pain R LE arterial Doppler performed here shows Right common femoral to tibioperoneal trunk graft appears patent. The right posterior tibial and peroneal arteries are likely occluded, as before. vascular surgery consulted and recommendation made that no surgical procedure would be performed IV heparin started 09/14 IV heparin has been stopped continue aspirin, statin vascular surgery signed off 09/13 will continue aspirin and statin continue home pain medications, which work for the patient d/c back to [facility] in 1-2 days 09/12 patient is back on aspirin + statin possible d/c back to [facility] if pain can be controlled may need pain management if pain is not controlled with oxycodone 09/11 as per vascular surgery, we can stop the IV heparin will continue aspirin and statin patient had been receiving Percocet but overnight required IV Dilaudid which helped subside the pain may need pain management if pain persists Right Superficial Calf Infection Right Knee Wound Infection Hx. of MRSA bacteriemia was hospitalized earlier in August due to MRSA bacteremia - likely due to perm cath; which was removed and replaced when blood cultures were negative He has since been on Vancomycin with dialysis - indefinite course due to multiple infections as per ID During last admission, he was discharged with Ceftaroline/Imipenem combination which has since been stopped Follows with wound care - creating a skin graft for the right knee wound 09/[address] Macario input knee healing well; will recheck in one week R calf - daily Xeroform/gauze changes 09/13 wound care consult placed to Dr. Macario R knee with eschar R calf with blistering ulcer continue Vanco with dialysis indefinitely 09/12 Atypical R Knee wound - prior to arrival R great toe ulcer - healing indefinite Vancomycin wound care consultation 09/11 Continue with Vancomycin indefinitely Wound care consulted for further evaluation of the knee Blood cultures are pending ESRD Mild Hyperkalemia - resolved patient receives dialysis on 09/13 for HD today Vancomycin with dialysis 09/12 HD on Friday - removed > 2L continue HD on 09/11 plan is for dialysis today as per nephrology K mildly elevated at 5.2 on admission - for dialysis today Vancomycin with dialysis Ischemic Cardiomyopathy s/p AICD Chronic Mixed Systolic/Diastolic CHF last echo - 08/22/16 * The left ventricle is moderately dilated. * Ejection Fraction = 15-20%. * There is severe global hypokinesis of the left ventricle. s/p AICD fluid management as per nephro with dialysis Coronary Artery Disease elevated troponin levels noted during last admission no cath performed, but medically managed continue aspirin, statin, b-david DM2 09/11 was initially on Lantus 5 units BID and a sliding scale his sugars having been running low with the last reading around 69 will stop the Lantus for now, and continue the sliding scale Chronic Respiratory Failure uses supplemental O2 intermittently currently is not requiring it and does not have any shortness of breath DVT ppx IV heparin stopped started subq heparin FULL CODE
[2016-09-14] MEDS: ASPIRIN 81 MG ECTAB PO SCH (09:39)
[2016-09-14] MEDS: LORATADINE 10 MG TAB PO SCH (09:39)
[2016-09-14] MEDS: LACTOBACILLUS ACIDOPHILUS (FLORANEX) TAB PO SCH ×2 (09:39→11:28)
[2016-09-14] MEDS: CALCIUM ACETATE 667MG GELCAP PO SCH ×2 (09:39→11:28)
[2016-09-14] MEDS: FERROUS SULFATE 325 MG TAB PO SCH (09:39)
[2016-09-14] MEDS: DEXAMETHASONE 1 MG TAB PO SCH (09:39)
[2016-09-14] MEDS: CHOLECALCIFEROL 1000 INTER.UNIT TAB PO SCH (09:39)
--- NOTE | 2016-09-14 09:41 | Discharge Instructions ---
Discharge Instructions Date of Service Sep 14, 2016. Admission Reason for Admission: Arterial Occlusion Discharge Discharge Diagnosis / Problem: Peripheral Arterial Disease with patent graft; Numerous Wounds on R leg Discharge Goals Goal(s): Decrease discomfort, Improve function, Diagnostic testing, Therapeutic intervention Activity Recommendations Activity Limitations: resume your previous activity . Instructions / Follow-Up Instructions / Follow-Up Continue Vancomycin with dialysis Wound care in one week Xeroform/Gauze changes daily Current Hospital Diet Patient's current hospital diet: AHA Diet (Heart Healthy), Low Sodium Diet (2gm Na), Renal Diet, Diabetes Type 2 Diet Discharge Diet Recommended Diet: AHA Diet (Heart Healthy), Low Sodium Diet (2gm Na), Diabetes Type 2 Diet, Renal Diet Pending Studies Studies pending at discharge: no Laboratory Results Hemoglobin A1c Test 07/16/16 05:34 Range/Units Estimated Average Glucose 126 mg/dl Hemoglobin A1c 6.0 H 4.5-5.6 % Medical Emergencies . Who to Call and When: Medical Emergencies: If at any time you feel your situation is an emergency, please call 911 immediately. . Non-Emergent Contact Non-Emergency issues call your: Primary Care Provider . . "Provider Documentation" section prepared by Wm Cerda. . VTE Core Measure Inpt VTE Proph given/why not?: Unfractionated heparin SQ (initially IV heparin , then SQ heparin), Other Anticoagulation (IV Heparin)
--- NOTE | 2016-09-14 09:43 | Discharge Summary ---
Discharge Summary Date of Service Sep 14, 2016. Discharge Summary Admission Date: Sep 10, 2016 at 19:06 Discharge Date: Sep 14, 2016 Discharge Disposition: group home facility Principal Diagnosis: Peripheral Arterial Disease with patent bypass graft Medication Reconciliation Continued Medications: Acetaminophen Tab (Tylenol) 325 Mg Tab 650 MG PO Q6 PRN for PAIN RATED 1-5 DO NOT EXCEED 3MG/24HR Ascorbic Acid (Vitamin C) 500 Mg Tab 500 MG PO DAILY TAKE DAILY ON FRI/FRI/FRIDAY Aspirin (Aspirin Ec) 81 Mg Tab 81 MG PO DAILY TAKE ON FRI,FRI,FRI @ 0400 TAKE ON ,,FRI,SUN @ 0800 Atorvastatin (Atorvastatin Calcium) 40 Mg Tab 40 MG PO HS for 30 Days, TAB 1 Refill Calcium Acetate (Phosphate Bin (Phoslo 667 Mg) 667 Mg Cap 2 CAPSULES PO WM, CAP Calcium Alginate (Bulk) (Calcium Alginate) 1 Pow Pow 1 APPLN DAILY AND PRN CLEANSE LEFT BUTTOCK SITE WITH NSS,APPLY CALCIUM ALGINATE TO WOUND BASE AND COVER WITH SILICONE BORDER. Cholecalciferol (Vitamin D3) 5,000 Unit Tab 5000 UNIT PO DAILY Dexamethasone (Dexamethasone) 2 Mg Tab 2 MG PO DAILY Ferrous Sulfate (Kp Ferrous Sulfate) 325 Mg Tab 1 TAB PO DAILY, 3 Refills Fluticasone Prop/Salmeterol (Advair Diskus 250/50 60 Dose) 1 Ea Aerp 1 PUFFS INH BID, 3 Refills Gabapentin (Neurontin) 100 Mg Cap 200 MG PO Q8 Insulin Aspart (Novolog) Inj SC ACHS, BTL Sliding scale: 0-150 = 0 units, 151-200 = 6 units, 201-250 = 8 units, 251-300 = 10 units, 301- 350 = 12 units, 351- 400 = 14 units, 401- 450 = 16 units, 451+ call physician, subcutaneously before meals and at bedtime related to TYPE 2 Diabetes Mellitus Insulin Glargine (Lantus) 100 Unit/Ml Inj 5 UNITS SC AMPM Ipratropium-Albuterol (Combivent Respimat) 1 Aer Aer 1 PUFFS INH QID for 30 Days, #1 1 Refill Lactobacillus Acidophilus (Lactinex) Tab 1 TAB PO TID, TAB Loratadine (Claritin) 10 Mg Tab 10 MG PO DAILY GIVE AT 0400 ON FRI,FRI,FRI GIVE AT 0800 ON ,,FRI,SUN Lorazepam (Ativan) 0.5 Mg Tab 0.5 MG PO TID for 2 Days, #4 TAB Metoprolol Succ (Toprol Xl) (Toprol-Xl) 25 Mg Tabcr 25 MG PO BID HOLD FOR AP HR <50 Omeprazole (Prilosec) 20 Mg Capcr 20 MG PO 4XWK ,,FRI,SUNDAYS Oxycodone Hcl (Oxycontin) 15 Mg Tab 30 MG PO Q8 for 2 Days, #6 DO NOT USE TOGETHER WITH ATIVAN TAKE 1 HOUR AWAY FROM OXY IR Oxycodone Ir (Roxicodone Ir) 5 Mg Tab 10 MG PO UD PRN for prior to dialysis for 2 Days, #6 before dialysis Oxygen (Oxygen) Gas 3 LITERS NA PRN PRN for Shortness of Breath Polyethylene Glycol 3350 (Miralax) 1 Pow Pow 17 GM PO DAILY GIVE AT 0400 ON FRI,FRI,FRI GIVE AT 0800 ON FRI,,,FRI Senna/Docusate Sod (Senokot S) 1 Tab Tab 1 TAB PO HS, TAB Vancomycin Hcl In Dextrose (Vancomycin Hcl In Dextros) 1 Inj Inj 1 GM IV 3XWK SEND TO DIALYSIS WITH PT ON FRI,FRI,FRI..WILL RECIEVE THERE [liquid protein] () 30 ML PO DAILY Admission Information HPI (per Admitting provider): This is a 56 year old male with PMH with complex PMH- Ischemic cardiomyopathy S/ P ICD, ESRD on HD, DM type 2, and other problems listed below who is being admitted from ER for abnormal ultrasound of lower extremity concerning for possible arterial occlusion. Patient's recently discharged from hospital on 08/31/16 after prolonged hospital course- MRSA bacteremia likely secondary to perm cath which was removed. Repeat blood cultures were positive and later negative. Had new tunneled line placed by Dr Bermudez for dialysis. Was discharged on IV Vancomycin with dialysis per ID recommendations. Has indwelling Butler catheter. He is wheelchair bound s/p left AKA. Patient does have chronic wound RLE/Right knee, managed by Dr Macario at wound clinic (goes every ) Patient was sent for US left lower extremity due to severe RLE pain. Pain started few days ago- from right knee to ankle , severe intensity . US shows- Right common femoral to tibioperoneal trunk graft appears patent. The right posterior tibial and peroneal arteries are likely occluded and thus was referred to ED for further evaluation and mx ED physician did speak to Dr Bermudez, no acute intervention recommended, but would do IV Heparin. No fever, chills, nausea, vomiting, abd pain, diarrhea, chest pain, SOB, cough. Physical Exam (per Admitting): General Appearance: + mild distress (secondary to pain), + obese Head: normocephalic, atraumatic Eyes: PERRL ENT: hearing grossly normal Neck: supple Respiratory/Chest: chest non-tender, lungs clear, normal breath sounds, no respiratory distress Cardiovascular: regular rate, rhythm Abdomen/GI: non tender, soft Extremities/Musculoskelatal: + pertinent finding (edema; Left AKA; Pulses in Right lower extremity- difficult to palpate, but no color changes noted) Neurologic/Psych: alert, oriented x 3 Skin: + pertinent finding (RLE- Wound + no oozing or pus discharge noted, Right knee- circumscribed wound- healing) Hospital Course This is a 56 year old male resident at [facility] with a PMH of severe PAD, ESRD on dialysis, recent admission due to MRSA bacteremia, ischemic cardiomyopathy s/p AICD, HTN, DM2, anemia secondary to ESRD presents with R LE pain and subsequently found to have a possible arterial occlusion Severe Peripheral Artery Disease s/p R LE bypass graft s/p R LE stenting to keep bypass patent in 2014 s/p L AKA in September 2015 due to severe cellulitis/sepsis and arterial disease Follows with wound care for a R knee/calf ulceration Was seen by primary care physician on 09/10 - scheduled to have outpatient Doppler, but was in too much pain presented to the ER due to the pain R LE arterial Doppler performed here shows Right common femoral to tibioperoneal trunk graft appears patent. The right posterior tibial and peroneal arteries are likely occluded, as before. vascular surgery consulted and recommendation made that no surgical procedure would be performed IV heparin started 09/14 IV heparin has been stopped continue aspirin, statin vascular surgery signed off 09/13 will continue aspirin and statin continue home pain medications, which work for the patient d/c back to [facility] in 1-2 days 09/12 patient is back on aspirin + statin possible d/c back to [facility] if pain can be controlled may need pain management if pain is not controlled with oxycodone 09/11 as per vascular surgery, we can stop the IV heparin will continue aspirin and statin patient had been receiving Percocet but overnight required IV Dilaudid which helped subside the pain may need pain management if pain persists Right Superficial Calf Infection Right Knee Wound Infection Hx. of MRSA bacteriemia was hospitalized earlier in August due to MRSA bacteremia - likely due to perm cath; which was removed and replaced when blood cultures were negative He has since been on Vancomycin with dialysis - indefinite course due to multiple infections as per ID During last admission, he was discharged with Ceftaroline/Imipenem combination which has since been stopped Follows with wound care - creating a skin graft for the right knee wound 09/[address] Macario input knee healing well; will recheck in one week R calf - daily Xeroform/gauze changes 09/13 wound care consult placed to Dr. Macario R knee with eschar R calf with blistering ulcer continue Vanco with dialysis indefinitely 09/12 Atypical R Knee wound - prior to arrival R great toe ulcer - healing indefinite Vancomycin wound care consultation 09/11 Continue with Vancomycin indefinitely Wound care consulted for further evaluation of the knee Blood cultures are pending ESRD Mild Hyperkalemia - resolved patient receives dialysis on 09/13 for HD today Vancomycin with dialysis 09/12 HD on Friday - removed > 2L continue HD on 09/11 plan is for dialysis today as per nephrology K mildly elevated at 5.2 on admission - for dialysis today Vancomycin with dialysis Ischemic Cardiomyopathy s/p AICD Chronic Mixed Systolic/Diastolic CHF last echo - 08/22/16 * The left ventricle is moderately dilated. * Ejection Fraction = 15-20%. * There is severe global hypokinesis of the left ventricle. s/p AICD fluid management as per nephro with dialysis Coronary Artery Disease elevated troponin levels noted during last admission no cath performed, but medically managed continue aspirin, statin, b-david DM2 09/11 was initially on Lantus 5 units BID and a sliding scale his sugars having been running low with the last reading around 69 will stop the Lantus for now, and continue the sliding scale Chronic Respiratory Failure uses supplemental O2 intermittently currently is not requiring it and does not have any shortness of breath DVT ppx IV heparin stopped started subq heparin FULL CODE Total time spent on discharge = 50 minutes This includes examination of the patient, discharge planning, medication reconciliation, and communication with other providers. Discharge Instructions Continue Vancomycin with dialysis Wound care in one week Xeroform/Gauze changes daily
[2016-09-14] MEDS: HEPARIN SOD 5000 UNIT/0.5 ML CARP SQ SCH (09:47)
[2016-09-14 11:11] VITALS: BP 116/69; PULSE 76; TEMP 36.8; O2SAT 95
[2016-09-14 14:06] VITALS: BP 116/69; PULSE 76; TEMP 36.8; O2SAT 95
[2016-11-27] MEDS ORDERED: OXYC40TA34 PO (09:01)
== END 2016-09-14 15:00 | DRG 299 ==
LOC: ENRESERVDT → ENRESERVTM → C.EDB 15:35 → C.2T 19:06 → EDBEDREQ 19:09
PROVIDERS: ADMIT Internal Medicine; ATTEND Family Medicine
DX: I74.3 Embolism and thrombosis of arteries of the lower extremities (principal); N18.6 End stage renal disease; L97.811 Non-pressure chronic ulcer of other part of right lower leg limited to breakdown of skin; I13.2 Hypertensive heart and chronic kidney disease with heart failure and with stage 5 chronic kidney disease, or end stage renal disease; I50.42 Chronic combined systolic (congestive) and diastolic (congestive) heart failure; J96.10 Chronic respiratory failure, unspecified whether with hypoxia or hypercapnia; I73.9 Peripheral vascular disease, unspecified; Z98.62 Peripheral vascular angioplasty status; Z89.612 Acquired absence of left leg above knee; Z89.421 Acquired absence of other right toe(s); Z99.2 Dependence on renal dialysis; L89.322 Pressure ulcer of left buttock, stage 2; I25.5 Ischemic cardiomyopathy; I25.10 Atherosclerotic heart disease of native coronary artery without angina pectoris; E11.622 Type 2 diabetes mellitus with other skin ulcer; E11.22 Type 2 diabetes mellitus with diabetic chronic kidney disease; D63.1 Anemia in chronic kidney disease; E66.9 Obesity, unspecified; Z68.31 Body mass index [BMI] 31.0-31.9, adult; Z95.810 Presence of automatic (implantable) cardiac defibrillator; Z86.14 Personal history of Methicillin resistant Staphylococcus aureus infection; Z79.2 Long term (current) use of antibiotics; Z79.4 Long term (current) use of insulin; Z79.52 Long term (current) use of systemic steroids; Z79.82 Long term (current) use of aspirin; Z79.891 Long term (current) use of opiate analgesic; Z79.899 Other long term (current) drug therapy; Z88.1 Allergy status to other antibiotic agents; Z82.49 Family history of ischemic heart disease and other diseases of the circulatory system

== ENCOUNTER 2016-09-19 14:15 | Inpatient (IN) | payer OTHER ==
[~2016-09-19] VITALS: Ht 165.1 cm; Wt 69.1 kg
[~2016-09-19 14:15] MED LIST changes: -GABA-113 PO; -LIQUID PROTEIN PO; -MOMLX PO; -NVLG SC; -OXYC-164 PO; -OXYC-787 PO; -OXYC40TA34 PO; -SERT50TA PO; -SNTO30 EXT; -SODI1ENE PR; -[UNRECOGNIZED DRUG - CODE] PO
[2016-09-19] MEDS ORDERED: PIPERACILLIN/TAZOBACTAM 4.5 GM/100ML D5W IV STA (14:40)
[2016-09-19] MEDS ORDERED: OXYC-787 PO (15:02)
[2016-09-19] MEDS ORDERED: [UNRECOGNIZED DRUG - CODE] PO (15:02)
[2016-09-19] MEDS ORDERED: GABA-113 PO (15:06)
[2016-09-19] MEDS ORDERED: OXYC1TAB3 PO (15:09)
[2016-09-19] MEDS ORDERED: OXYC-164 PO (15:13)
--- NOTE | 2016-09-19 15:13 | DIAGNOSTIC IMAGING REPORT ---
CHEST ONE VIEW PORTABLE CLINICAL HISTORY: Sepsis COMPARISON STUDY: 08/19/2016 FINDINGS: The heart is enlarged. There is a right internal jugular dual-lumen central venous catheter. There is a left subclavian pacer/defibrillator. There is mild pulmonary vascular congestion. There is no lobar consolidation. There is minor right basilar atelectasis.[ IMPRESSION: Cardiomegaly and radiographic evidence of mild congestive failure/fluid overload. Electronically signed by: Rajendra Gomez M.D. 09/19/2016 3:11 PM Dictated Date/Time: 09/19/2016 3:10 PM
[2016-09-19 15:21] LABS: PARTIAL THROMBOPLASTIN RATIO 1.3; PROTHROMBIN TIME (PATIENT) 11.2 SECONDS (9.0-12.0)
--- NOTE | 2016-09-19 15:30 | EMERGENCY ROOM VISIT NOTE ---
History Report prepared by Abbie: Germania Nieto Under the Supervision of: Dr. Raheel Givens M.D. First contact with patient: 14:28 Chief Complaint: ABNORMAL LABS Stated Complaint: ABNORMAL LABS History of Present Illness The patient is a 56 year old male who presents to the Emergency Room with complaints of an episode of a fever starting yesterday. The patient states that he had a fever yesterday, but does not feel that he currently has one. He states that [facility] sent him here because he has abnormal labs. Per the patient's medical records, he was at the ED last week and diagnosed with an ulcer and an arterial inclusion. The patient states that he is currently on dialysis and normally has dialysis three times a week. The patient states that he had an appointment with the wound clinic today and they cancelled on him. The patient states that he has a Butler catheter. Per medical records, he had vancomycin yesterday and is DNR. Per tests done prior to the ED, his urinalysis suggests an infection. The patient complains of right leg pain. The patient denies chills. Source of History: patient Onset: yesterday Position: other (global) Quality: other (global) Timing: other (episode) Associated Symptoms: No chills Note: The patient complains of right leg pain. Review of Systems See HPI for pertinent positives & negatives. A total of 10 systems reviewed and were otherwise negative. Past Medical & Surgical Medical Problems: (1) Acute on chronic renal failure (2) Anemia (3) Arterial occlusion (4) Cardiomyopathy (5) CHF (congestive heart failure) (6) Chronic back pain (7) CKD (chronic kidney disease), stage III (8) Coronary artery disease (9) DM type 2 (diabetes mellitus, type 2) (10) Fever (11) HTN (hypertension) (12) Hyperlipidemia (13) Hypoxia (14) Infected permcath (15) Leukocytosis (16) Obesity (17) Osteomyelitis (18) PAD (peripheral artery disease) (19) PVD (peripheral vascular disease) (20) Unresponsiveness Surgical Problems: (1) ICD (implantable cardioverter-defibrillator), single, in situ (2) S/P AKA (above knee amputation) (3) S/P femoral-popliteal bypass surgery (4) Toe amputation status Family History Coronary artery disease MOTHER FH: atrial fibrillation FATHER FH: cancer FATHER Hypertension SISTER Valvular heart disease FATHER Social History Smoking Status: Former Smoker Alcohol Use: occasionally Marital Status: single Housing Status: group home Occupation Status: disabled Current/Historical Medications Scheduled Ascorbic Acid (Vitamin C), 500 MG PO UD Aspirin (Aspirin Ec), 81 MG PO DAILY Atorvastatin (Atorvastatin Calcium), 40 MG PO HS Calcium Acetate (Phosphate Bin (Phoslo 667 Mg), 2 CAPSULES PO WM Cholecalciferol (Vitamin D3), 5,000 UNIT PO DAILY Dexamethasone (Dexamethasone), 2 MG PO DAILY Ferrous Sulfate (Kp Ferrous Sulfate), 1 TAB PO DAILY Fluticasone Prop/Salmeterol (Advair Diskus 250/50 60 Dose), 1 PUFFS INH BID Gabapentin (Neurontin), 300 MG PO Q8 Insulin Aspart (Novolog), SC ACHS Insulin Glargine (Lantus), 5 UNITS SC AMPM Ipratropium-Albuterol (Combivent Respimat), 1 PUFFS INH QID Lactobacillus Acidophilus (Lactinex), 1 TAB PO TID Loratadine (Claritin), 10 MG PO DAILY Lorazepam (Ativan), 0.5 MG PO TID Metoprolol Succ (Toprol Xl) (Toprol-Xl), 25 MG PO BID Omeprazole (Prilosec), 20 MG PO 4XWK Oxycodone HCl (Oxycodone HCl ER), 30 MG PO Q12 Polyethylene Glycol 3350 (Miralax), 17 GM PO DAILY Senna/Docusate Sod (Senokot S), 1 TAB PO HS Vancomycin Hcl In Dextrose (Vancomycin Hcl In Dextros), 1 GM IV 3XWK [liquid protein], 30 ML PO DAILY Scheduled PRN Acetaminophen Tab (Tylenol), 650 MG PO Q6 PRN for PAIN RATED 1-5 Magnesium Hydroxide (Milk of Magnesia), 30 ML PO UD PRN for Constipation Oxycodone Hcl (Oxycodone Hcl), 10 MG PO Q4 PRN for Pain Oxycodone Ir (Roxicodone Ir), 10 MG PO MWF PRN for Severe Pain Oxygen (Oxygen), 3 LITERS NA PRN PRN for Shortness of Breath Sodium Phosphates (Fleet Enema Six Pack), 1 EA ME UD PRN for Constipation Allergies Coded Allergies: Daptomycin (Verified Allergy, Severe, WATER ON LUNGS, 09/19/16) pt stated this allergy is "lethal" for him POLLEN (Verified Allergy, Unknown, 09/19/16) Ciprofloxacin (Verified Adverse Reaction, Intermediate, NAUSEA AND DIARHHEA, 09/19/16) Physical Exam Vital Signs Date Time Temp Pulse Resp B/P Pulse Ox O2 Delivery O2 Flow Rate FiO2 09/19/16 15:30 92 18 133/88 98 09/19/16 14:36 92 09/19/16 14:28 93 Room Air 09/19/16 14:22 36.9 94 18 130/79 93 Room Air Physical Exam GENERAL: Patient is in no acute distress. HEENT: No acute trauma, normocephalic atraumatic, mucous membranes dry, no nasal congestion, no scleral icterus. NECK: No stridor, no adenopathy, no meningismus, trachea is midline. LUNGS: Clear to auscultation bilaterally, no wheeze, no rhonchi, breath sounds equal. HEART: Without murmurs gallops or rubs, regular rate and rhythm. ABDOMEN: Soft, nontender, bowel sounds positive, no hernias, no peritonitis. Butler catheter draining dirty appearing urine EXTREMITIES: Left above the knee amputation. The right lower extremity has ulcers about the anterior knee and distal leg--the areas are tender to palpate with surrounding erythema. A specialized dressing is in place on the right lower extremity wound. NEUROLOGIC: Mild confusion, awake, moving all extremities equally. SKIN: Petechia to left upper extremity and left chest wall. Medical Decision & Procedures ER Provider Diagnostic Interpretation: X ray results and stated below per my interpretation and radiologist interpretation. Other radiology results and stated below per my review and radiologist interpretation: CHEST ONE VIEW PORTABLE CLINICAL HISTORY: Sepsis COMPARISON STUDY: 08/19/2016 FINDINGS: The heart is enlarged. There is a right internal jugular dual-lumen central venous catheter. There is a left subclavian pacer/defibrillator. There is mild pulmonary vascular congestion. There is no lobar consolidation. There is minor right basilar atelectasis.[ IMPRESSION: Cardiomegaly and radiographic evidence of mild congestive failure/fluid overload. Electronically signed by: Rajednra Gomez M.D. 09/19/2016 3:11 PM Dictated Date/Time: 09/19/2016 3:10 PM Laboratory Results 09/19/16 14:25 Red Blood Count 4.20, Mean Corpuscular Volume 93.6, Mean Corpuscular Hemoglobin 30.0, Mean Corpuscular Hemoglobin Concent 32.1, Mean Platelet Volume 9.8, Neutrophils (%) (Auto) 93.1, Lymphocytes (%) (Auto) 3.7, Monocytes (%) (Auto) 2.7, Eosinophils (%) (Auto) 0.0, Basophils (%) (Auto) 0.1, Neutrophils # (Auto) 21.94, Lymphocytes # (Auto) 0.87, Monocytes # (Auto) 0.64, Eosinophils # (Auto) 0.01, Basophils # (Auto) 0.02 09/19/16 14:25 Test 09/19/16 14:25 09/19/16 14:55 White Blood Count 23.57 K/uL (4.8-10.8) Red Blood Count 4.20 M/uL (4.7-6.1) Hemoglobin 12.6 g/dL (14.0-18.0) Hematocrit 39.3 % (42-52) Mean Corpuscular Volume 93.6 fL (80-100) Mean Corpuscular Hemoglobin 30.0 pg (25-34) Mean Corpuscular Hemoglobin Concent 32.1 g/dl (32-36) Platelet Count 237 K/uL (130-400) Mean Platelet Volume 9.8 fL (7.4-10.4) Neutrophils (%) (Auto) 93.1 % Lymphocytes (%) (Auto) 3.7 % Monocytes (%) (Auto) 2.7 % Eosinophils (%) (Auto) 0.0 % Basophils (%) (Auto) 0.1 % Neutrophils # (Auto) 21.94 K/uL (1.4-6.5) Lymphocytes # (Auto) 0.87 K/uL (1.2-3.4) Monocytes # (Auto) 0.64 K/uL (0.11-0.59) Eosinophils # (Auto) 0.01 K/uL (0-0.5) Basophils # (Auto) 0.02 K/uL (0-0.2) RDW Standard Deviation 49.5 fL (36.4-46.3) RDW Coefficient of Variation 14.6 % (11.5-14.5) Immature Granulocyte % (Auto) 0.4 % Immature Granulocyte # (Auto) 0.09 K/uL (0.00-0.02) Toxic Granulation 1+ Dohle Bodies 1+ Prothrombin Time 11.2 SECONDS (9.0-12.0) Prothromb Time International Ratio 1.0 (0.9-1.1) Activated Partial Thromboplast Time 34.3 SECONDS (21.0-31.0) Partial Thromboplastin Ratio 1.3 Anion Gap 14.0 mmol/L (3-11) Est Creatinine Clear Calc Drug Dose 17.1 ml/min Estimated GFR () 14.8 Estimated GFR (Non- 12.8 BUN/Creatinine Ratio 14.1 (10-20) Calcium Level 9.4 mg/dl (8.5-10.1) Bedside Lactic Acid Venous 0.90 mmol/L (0.90-1.70) Laboratory results reviewed by me. Medications Administered Medications (Trade) Dose Ordered Sig/Edin Route Start Time Stop Time Status Last Admin Dose Admin Piperacillin Sod/ Tazobactam Sod (Zosyn Iv) 4.5 gm ONE STAT IV 09/19/16 14:40 09/19/16 14:44 DC 09/19/16 14:51 4.5 GM ECG Indication: other (abnormal labs) Rate (beats per minute): 97 Rhythm: normal sinus Findings: T-wave inversion (Lateral), no ectopy, other (Artifact Present) Comparison ECG Date: 09/12/2016 Change: no significant change ED Course 1430: The patient was evaluated in room A12. A complete history and physical exam was performed. 1440: Ordered Zosyn Iv 4.5 mg IV. 1458: Discussed the patient's case. The patient will be evaluated for further management. Medical Decision Differential diagnoses include sepsis, bacteriemia, cellulitis, UTI, failed outpatient treatment The patient presents with a high white blood cell count at 21,000, he is on IV vancomycin for osteomyelitis. He receives the vancomycin with his dialysis Wednesdays and Fridays. I did review the laboratory testing done earlier. There is some renal failure consistent with the need for dialysis. No significant electrolyte abnormality requiring correction. Urinalysis does show evidence for infection, urine culture is pending. At the ER, a lactic acid level was done, this did not show evidence for severe sepsis. Blood cultures were drawn and are pending. Chest film did not show any evidence for a focal infiltrate, some possible CHF was seen. EKG showed a normal sinus rhythm with inverted T waves laterally, no change compared to previous EKGs. The patient received IV Zosyn for additional coverage. I did speak to the patient as well as the telephonic case manager. The on-call hospitalist was consulted. The patient appears to have a urinary infection. He also may be failing outpatient treatment for osteomyelitis. Care in the hospital is required. Consults Time Called: [phone] Consulting Physician: Melody Sears Returned Call: [phone] Discussed the patient's case. The patient will be evaluated for further management. Impression Primary Impression: UTI (urinary tract infection) Additional Impressions: Osteomyelitis Leukocytosis Failure of outpatient treatment Scribe Attestation The scribe's documentation has been prepared under my direction and personally reviewed by me in its entirety. I confirm that the note above accurately reflects all work, treatment, procedures, and medical decision making performed by me. Departure Information Dispostion Being Evaluated By Hospitalist Referrals Delmi Avila (PCP) Patient Instructions My [facility] Problem Qualifiers
[2016-09-19] MEDS ORDERED: PIPERACILL/TAZOBAC CONSULT ACTIVE PRN (16:00)
[2016-09-19] MEDS ORDERED: ONDANSETRON INJ 2 MG/ML 2 ML VIAL IV PRN (16:00)
[2016-09-19] MEDS ORDERED: GLUCAGON FOR INJ 1 MG VIAL SQ PRN (16:15)
[2016-09-19] MEDS ORDERED: DEXTROSE 50% 50 ML SYR IV PRN (16:15)
[2016-09-19] MEDS ORDERED: GLUCOSE 10 TABS/TUBE PO PRN (16:15)
[2016-09-19] MEDS ORDERED: GLUCOSE 40% GEL 15 GM TUBE PO PRN (16:15)
[2016-09-19] MEDS ORDERED: SODI1ENE PR (16:23)
[2016-09-19] MEDS ORDERED: MOMLX PO (16:23)
[2016-09-19] MEDS ORDERED: ACETAMINOPHEN 325 MG TAB PO PRN (16:30)
[2016-09-19] MEDS ORDERED: DEXTROSE IV SCH (16:30)
[2016-09-19] MEDS ORDERED: VANCOMYCIN HCL IV SCH (16:30)
--- NOTE | 2016-09-19 17:26 | History and Physical ---
History & Physical Date & Time of Service: September 19, 2016 at 16:12 Chief Complaint: Abnormal Labs Primary Care Physician: Delmi Avila History of Present Illness Source: patient, hospital records, halfway This is a 56 year old male with PMH of ESRD on HD, DM type 2, CAD, ischemic cardiomyopathy s/p AICD, EF 15-20%, right superficial calf infection, right knee wound infection, hx MRSA bacteremia, chronic respiratory failure on PRN supplemental O2, chronic indwelling blair, history of left AKA, who was sent to the ED from [facility] for abnormal labs. Patient does not recall recent events and reports feeling confused. Patient was recently admitted to [facility] from September 10-2016 for RLE PAD after being seen by vascular surgery and no surgery was recommended. Patient dialyzes MWF and receives vancomycin for right calf wound with dialysis. Last dose of vancomycin was yesterday. Pt is following with wound care for RLE wounds. Patient had outpatient labs this morning showing WBC of 20.8. Prior to arrival patient also had a UA which appeared infected. Per [facility] staff patient had a fever of 101 F this morning which resolved with Tylenol given around 9 am. In the ER patient is afebrile. HR is borderline approx 90. Sats were dropping to 80s while patient was sleeping as per emergency room RN. BP has been stable. Per [facility] staff patient is usually alert and oriented x 3 but was more confused for past few days. Currently he is oriented to person and place only. Patient does not recall his fever. AURICULAR ACUPUNCTURIST reports foul odor to the urine. He admits to chronic RLE wounds but cannot give details. He admits to mild RLE pain. Patient denies chills, dizziness, GROSSMAN, vision change, weakness, numbness, URI symptoms, cough, chest pain, SOB, abdominal pain, nausea, vomiting, diarrhea, constipation, urinary change. Past Medical/Surgical History Medical Problems: (1) Anemia Status: Chronic (2) Cardiomyopathy Status: Chronic (3) CHF (congestive heart failure) Permanent Comment: EF 20% Status: Chronic (4) Chronic back pain Status: Chronic (5) CKD (chronic kidney disease), stage III Status: Chronic (6) Coronary artery disease Status: Chronic (7) DM type 2 (diabetes mellitus, type 2) Status: Chronic (8) HTN (hypertension) Status: Chronic (9) Hyperlipidemia Status: Chronic (10) Obesity Status: Chronic (11) Osteomyelitis Permanent Comment: history of vertebral osteomyelitis and diskitis November 2015 Status: Resolved (12) PAD (peripheral artery disease) Status: Chronic (13) PVD (peripheral vascular disease) Status: Chronic Surgical Problems: (1) ICD (implantable cardioverter-defibrillator), single, in situ Permanent Comment: 10/31 Status: Chronic (2) S/P AKA (above knee amputation) Permanent Comment: LLE Status: Chronic (3) S/P femoral-popliteal bypass surgery Permanent Comment: Right 05/20-, with angioplast 08/30, with stent 06/02 Status: Chronic (4) Toe amputation status Permanent Comment: Right 4 toe Status: Chronic Family History Coronary artery disease MOTHER FH: atrial fibrillation FATHER FH: cancer FATHER Hypertension SISTER Valvular heart disease FATHER Social History Smoking Status: Never Smoker Alcohol Use: none Marital Status: single Housing status: assisted living ([facility]) Occupational Status: disabled Immunizations History of Influenza Vaccine: Yes Influenza Vaccine Date: Jun 17, 2014 History of Tetanus Vaccine?: Yes Tetanus Immunization Date: Jun 18, 2013 History of Pneumococcal: Yes Pneumococcal Date: Nov 18, 2001 History of Hepatitis B Vaccine: Yes Hepatitis Immunization Date: Dec 15, 2013 Multi-Drug Resistant Organisms History of MDRO: Yes Type of MDRO: MRSA Allergies Coded Allergies: Daptomycin (Verified Allergy, Severe, WATER ON LUNGS, 09/19/16) pt stated this allergy is "lethal" for him POLLEN (Verified Allergy, Unknown, 09/19/16) Ciprofloxacin (Verified Adverse Reaction, Intermediate, NAUSEA AND DIARHHEA, 09/19/16) Home Medications Scheduled Ascorbic Acid (Vitamin C), 500 MG PO UD Aspirin (Aspirin Ec), 81 MG PO DAILY Atorvastatin (Atorvastatin Calcium), 40 MG PO HS Calcium Acetate (Phosphate Bin (Phoslo 667 Mg), 2 CAPSULES PO WM Cholecalciferol (Vitamin D3), 5,000 UNIT PO DAILY Dexamethasone (Dexamethasone), 2 MG PO DAILY Ferrous Sulfate (Kp Ferrous Sulfate), 1 TAB PO DAILY Fluticasone Prop/Salmeterol (Advair Diskus 250/50 60 Dose), 1 PUFFS INH BID Gabapentin (Neurontin), 300 MG PO Q8 Insulin Aspart (Novolog), SC ACHS Insulin Glargine (Lantus), 5 UNITS SC AMPM Ipratropium-Albuterol (Combivent Respimat), 1 PUFFS INH QID Lactobacillus Acidophilus (Lactinex), 1 TAB PO TID Loratadine (Claritin), 10 MG PO DAILY Lorazepam (Ativan), 0.5 MG PO TID Metoprolol Succ (Toprol Xl) (Toprol-Xl), 25 MG PO BID Omeprazole (Prilosec), 20 MG PO 4XWK Oxycodone HCl (Oxycodone HCl ER), 30 MG PO Q12 Polyethylene Glycol 3350 (Miralax), 17 GM PO DAILY Senna/Docusate Sod (Senokot S), 1 TAB PO HS Vancomycin Hcl In Dextrose (Vancomycin Hcl In Dextros), 1 GM IV 3XWK [liquid protein], 30 ML PO DAILY Scheduled PRN Acetaminophen Tab (Tylenol), 650 MG PO Q6 PRN for PAIN RATED 1-5 Magnesium Hydroxide (Milk of Magnesia), 30 ML PO UD PRN for Constipation Oxycodone Hcl (Oxycodone Hcl), 10 MG PO Q4 PRN for Pain Oxycodone Ir (Roxicodone Ir), 10 MG PO MWF PRN for Severe Pain Oxygen (Oxygen), 3 LITERS NA PRN PRN for Shortness of Breath Sodium Phosphates (Fleet Enema Six Pack), 1 EA WI UD PRN for Constipation Review of Systems Constitutional: + fever, No chills, No fatigue Eyes: No worsening of vision ENT: No nasal symptoms Respiratory: No cough, No shortness of breath Cardiovascular: No chest pain Abdomen: No diarrhea, No nausea, No pain, No vomiting Musculoskeletal: No muscle pain Genitourinary - Male: + problem reported (Foul urinary odor), No dysuria Neurologic: No numbness/tingling, No weakness Hematologic / Lymphatic: No abnormal bleeding/bruising Integumentary: + problem reported (chronic RLE wounds) Physical Exam Vital Signs Date Time Temp Pulse Resp B/P Pulse Ox O2 Delivery O2 Flow Rate FiO2 09/19/16 15:30 92 18 133/88 98 09/19/16 14:36 92 09/19/16 14:28 93 Room Air 09/19/16 14:22 36.9 94 18 130/79 93 Room Air General Appearance: + pertinent finding (alert 56 year old male, appears comfortable lying in bed) Head: normocephalic, atraumatic Eyes: normal inspection, PERRL, EOMI ENT: hearing grossly normal, pharynx normal Neck: supple, trachea midline Respiratory/Chest: lungs clear, normal breath sounds, no respiratory distress, no accessory muscle use, + pertinent finding (saturating well on 2 liters NC) Cardiovascular: regular rate, rhythm, no murmur Abdomen/GI: normal bowel sounds, non tender, soft Genitourinary - Male: + pertinent finding (blair catheter in place draining dark cloudy urine with foul odor) Extremities/Musculoskelatal: + pertinent finding (s/p left AKA. RLE no edema. RLE peripheral pulses difficult to palpate. right foot warm and pink with capillary refill less than 2 seconds. ) Neurologic/Psych: alert, normal mood/affect, oriented x 3, + pertinent finding (oriented to person and place only. no focal deficit on gross examination. ) Skin: + pertinent finding (left elbow with small scabbed abrasion and slight surrounding erythema- elbow is nontender with normal ROM, right knee chronic wounds with dry base no significant erythema, right calf dressing in place- changed by Dr. Macario yesterday 09/18/16 per AURICULAR ACUPUNCTURIST. ecchymosis noted on abdomen. ) Diagnostics Laboratory Results Results Past 24 Hours Test 09/19/16 14:25 09/19/16 14:55 Range/Units Prothrombin Time 11.2 9.0-12.0 SECONDS Prothromb Time International Ratio 1.0 0.9-1.1 Activated Partial Thromboplast Time 34.3 21.0-31.0 SECONDS Partial Thromboplastin Ratio 1.3 Bedside Lactic Acid Venous 0.90 0.90-1.70 mmol/L Microbiology Results 09/19/16 Blood Culture, Received Pending 09/19/16 Blood Culture, Received Pending Diagnostic Radiology CHEST ONE VIEW PORTABLE CLINICAL HISTORY: Sepsis COMPARISON STUDY: 08/19/2016 FINDINGS: The heart is enlarged. There is a right internal jugular dual-lumen central venous catheter. There is a left subclavian pacer/defibrillator. There is mild pulmonary vascular congestion. There is no lobar consolidation. There is minor right basilar atelectasis.[ IMPRESSION: Cardiomegaly and radiographic evidence of mild congestive failure/fluid overload. EKG NSR, 97 bpm, possible left atrial enlargement, low voltage QRS, T wave abnormality, consider lateral ischemia, prolonged QT (szk=[id number]), when compared with prior EKG PVCs are no longer present, as confirmed by cardiology read Impression Assessment and Plan UTI with POSSIBLE SEPSIS Meets SIRS criteria with leukocytosis (WBC 20.8), fever of 101 F prior to arrival, borderline tachycardia in 90s; no hypotension; POC lactic acid WNL UA prior to arrival significant for large leukocyte esterase, WBC >30, bacteria 4+ CXR- no infiltrate; h/o RLE wound infection; history of MRSA bacteremia likely due to perm cath which was removed and replaced in August when blood cultures were negative Has been on IV Vancomycin with dialysis- ID had recommended indefinite course due to multiple infections Prior urine culture 08/2016 grew proteus sensitive to Zosyn Given dose of Zosyn in ER Continue Zosyn and continue outpatient IV vancomycin No IVF's for now given normal BP, normal lactic acid, hx of systolic CHF with EF 15-20%, ? volume overload on CXR ALTERED MENTAL STATUS Possibly due to metabolic encephalopathy from infection Will continue his long acting oxycodone 30 mg BID but hold short acting for now ? hypoglycemia- random blood glucose borderline low this am at 77- nursing to check BSG now- 234 SEVERE PAD S/p RLE bypass graft, s/p RLE stenting 2014, s/p left AKA September 2015 for severe cellulitis and arterial disease Chronic right knee and right calf ulcerations- follows with wound care R LE arterial Doppler last hospitalization- Right common femoral to tibioperoneal trunk graft appears patent. The right posterior tibial and peroneal arteries are likely occluded, as before. Vascular surgery consulted last admission- no surgery recommended On aspirin and statin CHRONIC RLE WOUNDS H/O RIGHT SUPERFICIAL CALF INFECTION, HX RIGHT KNEE WOUND INFECTION; HX MRSA BACTEREMIA Follows with wound care On indefinite course of Vancomycin due to multiple infections as previously recommended by ID Consult Dr. Macario and wound care nurse ESRD On HD MWF K was WNL on labs IT HELP DESK MANAGER Follows with Dr. Flores Consult nephrology CHRONIC HYPONATREMIA Na is 131- around baseline Monitor ISCHEMIC CARDIOMYOPATHY/ CHRONIC SYSTOLIC AND DIASTOLIC CHF S/p AICD EF 15-20% on echo 08/2016 Possible mild CHF on CXR Does not appear volume overloaded on exam CAD Stable; no anginal symptoms Continue aspirin, statin, beta david DM TYPE 2 On Lantus 5 units BID and Novolog sliding scale at [facility] Random glucose 77 this morning Check BSG- 234 Continue Novolog sliding scale CHRONIC RESPIRATORY FAILURE On chronic supplemental O2 3 liters PRN Patient's sats were dropping on RA while sleeping as per AURICULAR ACUPUNCTURIST; now saturating well on 2 liters NC Continue supplemental O2 per protocol DVT PROPHYLAXIS Heparin SQ CODE STATUS Needs to be clarified Not discussed with the patient due to AMS POLST on chart indicates DNR Spoke to patient's mother, Karrie ([phone]), via phone call who referred me to patient's sister Kriss who is POA I am unable to reach Kriss by phone x 2. Left voicemail message. DISPOSITION PCP is Dr. Todd Resides at [facility] media services specialist and PT/ OT consulted Patient seen in collaboration with Dr. Cerda. Please see his addendum. ADDENDUM: This is a 56 year old male resident at [facility] with a PMH of severe PAD, ESRD on dialysis, recent admission due to MRSA bacteremia, ischemic cardiomyopathy s/p AICD, HTN, DM2, anemia secondary to ESRD recently admitted in [facility] due to arterial occlusion and discharged on September 14 presented with confusion, elevated white blood cell count and found to have urinary tract infection I saw him in room 203; confused; does know he is in the hospital, cannot recall which ones -- does not know the precipitating events that brought him to the ER. GEN: confused, disoriented CVS: +S1, S2, RRR LUNGS: CTA b/l, no wheezing Sepsis and Metabolic Encephalopathy secondary to Urinary Tract Infection has had a history of Proteus infection WBC as outpatient > 20k, +fever, +tachycardia prior to arrival will start Zosyn he receives Vancomycin with dialysis on urine culture pending Severe Peripheral Artery Disease s/p R LE bypass graft s/p R LE stenting to keep bypass patent in 2014 s/p L AKA in September 2015 due to severe cellulitis/sepsis and arterial disease Follows with wound care for a R knee/calf ulceration Right Superficial Calf Infection Right Knee Wound Infection Hx. of MRSA bacteriemia was hospitalized earlier in August due to MRSA bacteremia - likely due to perm cath; which was removed and replaced when blood cultures were negative He has since been on Vancomycin with dialysis - indefinite course due to multiple infections as per ID During last admission, he was discharged with Ceftaroline/Imipenem combination which has since been stopped Follows with wound care ESRD patient receives dialysis on nephrology consulted for management Ischemic Cardiomyopathy s/p AICD Chronic Mixed Systolic/Diastolic CHF last echo - 08/22/16 The left ventricle is moderately dilated. Ejection Fraction = 15-20%. There is severe global hypokinesis of the left ventricle. s/p AICD fluid management as per nephro with dialysis Coronary Artery Disease elevated troponin levels noted during admission in early August no cath performed, but medically managed continue aspirin, statin, b-david DNR STATUS VTE Prophylaxis VTE Risk Assessment Done? Y/N: Yes Risk Level: Moderate
[2016-09-19 17:41] VITALS: BP 133/80; PULSE 92; TEMP 37.1; O2SAT 92; BMI 27.8
[2016-09-19] MEDS ORDERED: VANCOMYCIN CONSULT ACTIVE PRN (18:00)
[2016-09-19 19:11] LABS: HEMATOCRIT 39.3 % (42-52); MEAN CELL VOLUME 93.6 fL (80-100); MEAN CORPUSCULAR HGB CONC 32.1 g/dl (32-36); MEAN PLATELET VOLUME 9.8 fL (7.4-10.4); PLATELET COUNT 237 K/uL (130-400); WHITE BLOOD COUNT 23.57 K/uL (4.8-10.8)
[2016-09-19 19:36] LABS: BASO % 0.1 %; BASO ABS # 0.02 K/uL (0-0.2); COMPLETE YES; DOHLE BODIES 1+; IG% 0.4 %; LYMPH % 3.7 %; LYMPH ABS # 0.87 K/uL (1.2-3.4); MONO % 2.7 %; NEUT % 93.1 %; TOXIC GRANULATION 1+
--- NOTE | 2016-09-19 19:40 | Pharmacy Progress Note ---
Pharmacy Antibiotic Consult Date of Service: September 19, 2016. Pharmacy Dosing Scope Pharmacy is consulted to initiate vancomycin and Zosyn IV dosing therapy, order appropriate labs and adjust drug dose/frequency. Note: this was a home med that was continued on admission and all vancomycin orders are automatic consults Subjective The patient is a 56 year old male admitted on September 19, 2016 at 15:53 for sepsis secondary to UTI - for which Zosyn has been initiated. He has been on chronic vancomycin as an outpatient for a right calf wound. Objective Height (Feet): 5 Height (Inches): 5.00 Weight (Kilograms): 81.800 Lab Results (24hrs): Laboratory Tests Test 09/19/16 14:25 White Blood Count 23.57 K/uL Red Blood Count 4.20 M/uL Hemoglobin 12.6 g/dL Hematocrit 39.3 % Mean Corpuscular Volume 93.6 fL Mean Corpuscular Hemoglobin 30.0 pg Mean Corpuscular Hemoglobin Concent 32.1 g/dl Platelet Count 237 K/uL Mean Platelet Volume 9.8 fL Recent Pertinent Medications Item Value Date Time Non-Formulary 1 gm 09/19/16 1630 Medication .3XWK/IV (Vancomycin Hcl In Dextrose (Vancomycin Hcl In Dextros)) Piperacillin Sod/ 4.5 gm 09/19/16 1440 Tazobactam Sod ONE STAT/IV 09/19/16 1451 (Zosyn Iv) Assessment & Plan ASSESSMENT: * 56 y/o male with sepsis secondary to UTI, to be started on Zosyn. Chronically on vancomycin for R calf wound. * Pertinent PMH: ESRD on dialysis, [place] resident, recent hospital stay, h/o MRSA, L above knee amputation * From recent admissions, patient rec'd 500 mg and 750 mg doses of vancomycin but for now, will plan to continue w/ his outpatient regimen (last dose was yesterday after dialysis) and order a level w/ AM labs tomorrow to evaluate if the dose needs adjusted PLAN: * Vancomycin - continue 1 gm MWF after dialysis * Random level w/ AM labs * Zosyn - rec'd 4.5 gm x 1 in the ER, then 3.375 gm (extended infusion) q12h for dialysis patient Pharmacy will continue to follow and will adjust dose/frequency as necessary. Thank you
[2016-09-19 19:45] VITALS: BP 115/73; PULSE 86; TEMP 36.9; O2SAT 93
[2016-09-19 20:26] LABS: BUN/CREATININE RATIO 14.1 (10-20); CALCIUM 9.4 mg/dl (8.5-10.1); CREATININE 4.7 mg/dl (0.60-1.40); POTASSIUM 5.6 mmol/L (3.5-5.1)
[2016-09-19] MEDS: LORAZEPAM 0.5 MG TAB PO SCH (21:13)
[2016-09-19] MEDS: OXYCODONE HCL 10 MG TABCR (OXYCONTIN) PO SCH (21:13)
[2016-09-19] MEDS: FLUTICASONE/SALMETEROL 250/50 (ADVAIR) 14 PUFF/1 INHALER INH SCH (21:14)
[2016-09-19] MEDS: IPRATROPIUM BROMIDE/ALBUTEROL respimat INH INH SCH (21:16)
[2016-09-19] MEDS: LACTOBACILLUS ACIDOPHILUS (FLORANEX) TAB PO SCH (21:16)
[2016-09-19] MEDS: GABAPENTIN 300 MG CAP PO SCH (21:17)
[2016-09-19] MEDS: DOCUSATE SODIUM/SENNA 50/8.6MG TAB PO SCH (21:17)
[2016-09-19] MEDS: ATORVASTATIN 40 MG TAB PO SCH (21:17)
[2016-09-19] MEDS: METOPROLOL SUCC 25MG EXT REL TAB PO SCH (21:18)
[2016-09-19] MEDS: INSULIN ASPART 100 UNITS/ML 3 ML PEN SC SCH (21:28)
[2016-09-19] MEDS: INSULIN GLARGINE SOLOSTAR 100 UNITS/ML 3 ML PEN SC SCH (21:28)
[2016-09-19] MEDS: HEPARIN SOD 5000 UNIT/0.5 ML CARP SQ SCH (21:29)
[2016-09-19] MEDS: ACETAMINOPHEN 325 MG TAB PO PRN (23:41)
[2016-09-19 23:42] VITALS: BP 106/69; PULSE 105; TEMP 38.1; O2SAT 93
[2016-09-20] VITALS (20 sets, daily range): BP systolic 91–152; BP diastolic 60–110; PULSE 89–117; TEMP 36.7–37.7; O2SAT 92–97
[2016-09-20] MEDS ORDERED: PIPERACILL/TAZOBAC IV 3.375 GM in DEXTROSE 5% 100ML IV SCH ×2
[2016-09-20] MEDS: LORATADINE 10 MG TAB PO SCH (03:16)
[2016-09-20] MEDS: POLYETHYLENE (MIRALAX) 17 GM PACK PO SCH (03:16)
[2016-09-20] MEDS ORDERED: POLYETHYLENE (MIRALAX) 17 GM PACK PO SCH (04:00)
[2016-09-20] MEDS: GABAPENTIN 300 MG CAP PO SCH ×3 (05:51→20:56)
[2016-09-20] MEDS: HEPARIN SOD 5000 UNIT/0.5 ML CARP SQ SCH ×3 (05:53→20:59)
[2016-09-20 06:03] LABS: HEMATOCRIT 37.3 % (42-52); MEAN CELL VOLUME 91.6 fL (80-100); MEAN CORPUSCULAR HEMOGLOBIN 28.7 pg (25-34); MEAN CORPUSCULAR HGB CONC 31.4 g/dl (32-36); MEAN PLATELET VOLUME 9.5 fL (7.4-10.4); PLATELET COUNT 311 K/uL (130-400); RED BLOOD COUNT 4.07 M/uL (4.7-6.1); WHITE BLOOD COUNT 20.13 K/uL (4.8-10.8)
[2016-09-20 06:51] LABS: BUN/CREATININE RATIO 15.4 (10-20); CALCIUM 9.5 mg/dl (8.5-10.1); CREATININE 5.5 mg/dl (0.60-1.40); MAGNESIUM 2.7 mg/dl (1.8-2.4); POTASSIUM 4.9 mmol/L (3.5-5.1)
--- NOTE | 2016-09-20 07:40 | NEPHROLOGY CONSULTATION ---
DATE OF CONSULTATION: 09/20/2016 ATTENDING OF RECORD: Dr. Willoughby. REASON FOR CONSULTATION: End-stage renal disease. HISTORY OF PRESENT ILLNESS: This is a 56-year-old male who has had multiple hospitalizations in the past on dialysis Mondays, Wednesdays, Fridays, who has ischemic cardiomyopathy with a defibrillator and poor ejection fraction who has a chronic indwelling Butler catheter, left AKA, chronic right knee infection, recent tunneled dialysis catheter infection with a catheter exchange. He has been receiving vancomycin with dialysis. The patient noted to have elevated white count and there was a concern that the patient may have a urinary tract infection. He did have a fever at [facility] and has become more confused over the past several days. When speaking to him this morning the patient was answering questions slowly as well as inappropriately. When asked whether his appetite was good he continued to answer the question by saying "not very tired". PAST MEDICAL HISTORY: End-stage renal disease, history of osteomyelitis of the back in November of last year, hypertension, type 2 diabetes, hyperlipidemia, chronic right knee infection growing pseudomonas, ischemic cardiomyopathy with a low ejection fraction, significant vascular disease. PAST SURGICAL HISTORY: Fem-pop bypass, left AKA, AICD, multiple attempts at fistulas and grafts in the past; now tunneled line dependent. FAMILY HISTORY: Significant for high blood pressure and heart disease. SOCIAL HISTORY: No smoking, no alcohol, no drugs. Lives in assisted living. REVIEW OF SYSTEMS: The patient appears confused this morning. Unreliable review of systems. CURRENT MEDICATIONS: Aspirin 81 mg, Protonix 40 mg, Claritin 10 mg, MiraLax 17 grams, vancomycin 1 gram on Mondays, Wednesdays, and Fridays, Decadron 2 mg daily, vitamin D 5000 units daily, iron, PhosLo 2 p.o. t.i.d. with meals, Zosyn 3.375 IV q. 12, heparin 5,000 units subQ q. 8, Lipitor 40 mg at night, Advair inhaler twice a day, Lantus 5 units subQ b.i.d., Toprol-XL 25 mg p.o. b.i.d. PHYSICAL EXAMINATION VITAL SIGNS: Temperature 36.7, T-max 38.1, pulse 103, respiratory rate 18, blood pressure 102/66, satting 93% on room air. GENERAL: Awake, alert, oriented x2 gets confused easily. EYES: No scleral icterus. HEENT: Moist mucous membranes. NECK: Supple. PULMONARY: Clear to auscultation. CARDIAC: Mildly tachy. ABDOMEN: Bowel sounds positive, soft, nontender. EXTREMITIES: Left AKA. Right knee chronic wound infection. NEUROLOGIC: Confused. : Chronic Butler catheter. DERM: Chronic right knee infection. DIALYSIS ACCESS: Tunneled dialysis catheter. LABORATORIES: White count is 20,000, H\\T\\H 11 and 37. Platelet count is 311. Random vancomycin level is pending. INR is 1. Labs are pending for this morning. Sodium level is 132, potassium 5.6, chloride is 94, bicarbonate is 24, BUN 66, creatinine is 4.7, glucose 218, calcium is 9.4. Blood cultures pending. Chest x-ray shows cardiomegaly with radiographic evidence of mild congestive failure, fluid overload. IMPRESSION AND PLAN: 1. End-stage renal disease: Plan on dialysis today to help lower the potassium which was 5.6 yesterday afternoon as well as help remove fluid as blood pressure tolerates, systolics in the low 100s and signs of mild CHF on chest x-ray. 2. Anemia of renal failure. Hemoglobin levels are in the 11 range so will hold on Procrit. 3. Renal osteodystrophy. We will continue patient's phosphate binders and follow phosphorus levels intermittently. 4. ID The patient continues to have intermittent fevers with temperature 38.1 last night. Blood cultures are pending. On vancomycin chronically as an outpatient and now on vancomycin and Zosyn. With concern for possible UTI versus the chronic right knee infection with history of diskitis osteomyelitis last summer of the lower back as well as a tunneled dialysis catheter all potential sources. I appreciate the consultation. COLUMBA
[2016-09-20 08:29] LABS: ESTIMATED AVERAGE GLUCOSE 134 mg/dl; HA1C FLAG Normal (Normal)
[2016-09-20] MEDS: OXYCODONE HCL 10 MG TABCR (OXYCONTIN) PO SCH ×2 (08:55→20:55)
[2016-09-20] MEDS: IPRATROPIUM BROMIDE/ALBUTEROL respimat INH INH SCH ×4 (08:56→20:55)
[2016-09-20] MEDS: CHOLECALCIFEROL 1000 INTER.UNIT TAB PO SCH (08:56)
[2016-09-20] MEDS: FLUTICASONE/SALMETEROL 250/50 (ADVAIR) 14 PUFF/1 INHALER INH SCH ×2 (08:56→20:55)
[2016-09-20] MEDS: CALCIUM ACETATE 667MG GELCAP PO SCH ×3 (08:57→16:15)
[2016-09-20] MEDS: LACTOBACILLUS ACIDOPHILUS (FLORANEX) TAB PO SCH ×3 (08:57→20:55)
[2016-09-20] MEDS: ASCORBIC ACID 500 MG TAB PO SCH (08:58)
[2016-09-20] MEDS: DEXAMETHASONE 1 MG TAB PO SCH (08:58)
[2016-09-20] MEDS ORDERED: FERROUS SULFATE 325 MG TAB PO SCH (09:00)
[2016-09-20] MEDS: INSULIN GLARGINE SOLOSTAR 100 UNITS/ML 3 ML PEN SC SCH ×2 (09:05→20:58)
[2016-09-20] MEDS: INSULIN ASPART 100 UNITS/ML 3 ML PEN SC SCH ×4 (09:05→20:58)
[2016-09-20] MEDS: METOPROLOL SUCC 25MG EXT REL TAB PO SCH ×2 (09:06→20:56)
[2016-09-20] MEDS: LORAZEPAM 0.5 MG TAB PO SCH ×3 (09:16→20:54)
--- NOTE | 2016-09-20 09:33 | Pharmacy Progress Note ---
Pharmacy Antibiotic Prog Note Date of Service September 20, 2016. Subjective The patient is currently receiving vancomycin 1000 mg IV post-HD The patient is currently on chronic vancomycin therapy. Objective Height (Feet): 5 Height (Inches): 5.00 Weight (Kilograms): 77.300 Levels: 09/20 0514 vancomycin 25.9 mg/dL Lab Results (24hrs): Laboratory Tests Test 09/19/16 14:25 09/20/16 05:14 BUN/Creatinine Ratio 14.1 15.4 Blood Urea Nitrogen 66 mg/dl 85 mg/dl Creatinine 4.70 mg/dl 5.50 mg/dl White Blood Count 23.57 K/uL 20.13 K/uL Red Blood Count 4.20 M/uL Hemoglobin 12.6 g/dL Hematocrit 39.3 % Mean Corpuscular Volume 93.6 fL Mean Corpuscular Hemoglobin 30.0 pg Mean Corpuscular Hemoglobin Concent 32.1 g/dl Platelet Count 237 K/uL Mean Platelet Volume 9.8 fL Neutrophils (%) (Auto) 93.1 % Lymphocytes (%) (Auto) 3.7 % Monocytes (%) (Auto) 2.7 % Eosinophils (%) (Auto) 0.0 % Basophils (%) (Auto) 0.1 % Neutrophils # (Auto) 21.94 K/uL Lymphocytes # (Auto) 0.87 K/uL Monocytes # (Auto) 0.64 K/uL Eosinophils # (Auto) 0.01 K/uL Basophils # (Auto) 0.02 K/uL Assessment & Plan Assessment * 56 yo M with ESRD (HD MWF) on chronic vancomycin as an outpatient for calf wound, now admitted w sepsis 2nd UTI. Vancomycin to be continued as inpatient and added Zosyn for coverage of UTI. * Patient has a recent positive culture history of MRSA bacteremia, Pseudomonas in ulcer, and Proteus UTI * Pre-HD vancomycin level today of 25.9 mcg/mL does not require adjustment of post-HD vancomycin dose * Patient scheduled to continue outpatient regimen of vancomycin 1000 mg IV post -HD. Ordered as qMWF - will need to be adjusted if HD schedule as inpatient deviates from outpatient schedule * Next level prior to anticipated HD session on Friday Plan * Continue vancomycin 1000 mg IV post-HD * Next level 5/8 AM prior to HD Pharmacy will continue to follow and will adjust dose/frequency as necessary. Thank you
--- NOTE | 2016-09-20 09:47 | Clinical Documentation Query ---
CLINICAL DOCUMENTATION QUERY 56 year old male with chronic RLE wounds, chronic indwelling Butler, and recent (August 2016) permcath MRSA infection who presents with Sepsis. In your clinical opinion is this patient being managed for: ( ) Sepsis due to dialysis catheter infection ( ) Sepsis due to chronic indwelling Butler catheter related UTI ( ) Sepsis due to RLE wound infection ( ) Sepsis due to possible anyone or combination of above (Butler catheter associated UTI, RLE wound, and/or Port infection) ( ) Other explanation of clinical findings (Please Explain) ( x ) Unable to determine (Please Define) - uncertain at this time; cultures pending ( ) Need to Discuss ( ) Not Agree The medical record reflects the following clinical findings, treatment, and risk factors. Clinical Indicators: WBC's 23.57, documentation of UTI, Chronic RLE wounds, and recent Permcath infection. Treatment: IVF's, IV Vancomycin, IV Zosyn, WOCN consult, BCx2, Risk Factors: Age, ESRD, hx MRSA permcath infection, Chronic indwelling Butler catheter, and open wounds, DM. Please clarify and document your clinical opinion in the progress notes and discharge summary. Terms such as "probable", "suspected", "likely", "questionable", "possible", or "still to be ruled out" are acceptable. IF IN AGREEMENT, YOU MUST DOCUMENT ABOVE DIAGNOSTIC STATEMENT IN DAILY PROGRESS NOTES AND DISCHARGE SUMMARY. This document is not part of the patient's record. Thank You, Thomas Hedrick, RN [phone]
[2016-09-20] MEDS: FERROUS SULFATE 325 MG TAB PO SCH (13:01)
[2016-09-20] MEDS: VANCOMYCIN INJ 1,000 MG in SODIUM CHLORIDE 0.9% 250ML 250 ML IV SCH (16:15)
[2016-09-20] MEDS: PIPERACILL/TAZOBAC IV 3.375 GM in DEXTROSE 5% 100ML IV SCH (16:15)
[2016-09-20] MEDS: DOCUSATE SODIUM/SENNA 50/8.6MG TAB PO SCH (20:56)
[2016-09-20] MEDS: ATORVASTATIN 40 MG TAB PO SCH (20:57)
--- NOTE | 2016-09-20 23:02 | Progress Note ---
Medicine Progress Note Date & Time of Visit: September 20, 2016 at 18:50 . Subjective Intermittent low grade temps. No fever or chills. No chest pain. No cough or SOB. No nausea or vomiting. . Objective Last 8 Hrs Date Time Temp Pulse Resp B/P Pulse Ox O2 Delivery O2 Flow Rate FiO2 09/20/16 20:00 Room Air 09/20/16 20:00 36.7 102 18 128/75 97 Room Air 09/20/16 16:05 Room Air 09/20/16 16:05 37.3 109 22 134/80 95 Room Air 09/20/16 16:02 36.7 94 98/77 09/20/16 15:00 117 152/60 Physical Exam: General- appears to be chronically ill, no acute distress Eyes- anicteric Neck- difficult to assess neck veins due to body habitus Lungs- clear to auscultation Heart- RRR Abdomen- obese, + BS, soft, nontender Extremities- ulcer right knee; trace pretibial edema; legs bandaged Neuro- alert, mild confusion . Laboratory Results: Last 24 Hours Test 09/20/16 05:14 09/20/16 05:49 09/20/16 11:15 09/20/16 16:04 White Blood Count 20.13 K/uL Red Blood Count 4.07 M/uL Hemoglobin 11.7 g/dL Hematocrit 37.3 % Mean Corpuscular Volume 91.6 fL Mean Corpuscular Hemoglobin 28.7 pg Mean Corpuscular Hemoglobin Concent 31.4 g/dl RDW Standard Deviation 48.4 fL RDW Coefficient of Variation 14.3 % Platelet Count 311 K/uL Mean Platelet Volume 9.5 fL Sodium Level 132 mmol/L Potassium Level 4.9 mmol/L Chloride Level 96 mmol/L Carbon Dioxide Level 24 mmol/L Anion Gap 12.0 mmol/L Blood Urea Nitrogen 85 mg/dl Creatinine 5.50 mg/dl Est Creatinine Clear Calc Drug Dose 14.2 ml/min Estimated GFR () 12.3 Estimated GFR (Non- 10.6 BUN/Creatinine Ratio 15.4 Random Glucose 194 mg/dl Estimated Average Glucose 134 mg/dl Hemoglobin A1c 6.3 % Calcium Level 9.5 mg/dl Magnesium Level 2.7 mg/dl Random Vancomycin Level 25.9 mcg/ml Bedside Glucose 204 mg/dl 285 mg/dl 144 mg/dl Test 09/20/16 20:47 Bedside Glucose 161 mg/dl Assessment & Plan SEPSIS Met criteria for sepsis per 2001 definition and current CMS guidelines. (reported fever, pulse greater than 90, leukocytosis, altered mental status) Hemodynamically stable in ED. Serum lactate was 0.9. Blood cultures obtained. Has been on IV vancomycin for recent line infection; also has history of discitis and wound infection. IV piperacillin / tazobactam added. Source of infection at this time uncertain. Awaiting culture results. CHRONIC LEFT VENTRICULAR SYSTOLIC HEART FAILURE LVEF 15-20%. Follow exam, fluid status. No JOSE MARTIN or ARB due to CKD. Continue metoprolol succinate. HYPERTENSION Continue metoprolol succinate. Follow and titrate Rx. CKD V Per Nephrology. DM TYPE 2 Lantus / NovoLog per protocol. VTE PROPHYLAXIS SQ heparin. DISPOSITION Expected return to [facility] for skilled care. . Current Inpatient Medications: Current Inpatient Medications Medications (Trade) Dose Ordered Sig/Edin Route Start Time Stop Time Status Last Admin Dose Admin Heparin Sodium (Porcine) (Heparin Sq 5000 Unit/0.5ml) 5,000 unit Q8 SQ 09/19/16 22:00 10/19/16 21:59 09/20/16 20:59 5,000 UNIT Acetaminophen (Tylenol Tab) 650 mg Q4H PRN PO 09/19/16 16:00 10/19/16 15:59 09/19/16 23:41 650 MG Ondansetron HCl (Zofran Inj) 4 mg Q6H PRN IV 09/19/16 16:00 10/19/16 15:59 Piperacillin Sod/ Tazobactam Sod (Consult) 1 ea UD PRN N/A 09/19/16 16:00 10/19/16 15:59 Insulin Aspart (novoLOG ASPART) SLIDING SCALE If C... ACHS SC 09/19/16 21:00 10/19/16 20:59 09/20/16 20:58 1 UNITS Glucose (Glucose 40% Gel) 15-30 GRAMS 15 GRAMS... UD PRN PO 09/19/16 16:15 10/19/16 16:14 Glucose (Glucose Chew Tab) 4-8 Tablets 4 Tabl... UD PRN PO 09/19/16 16:15 6/3/17 16:14 Dextrose (Dextrose 50% 50ML Syringe) 25-50ML OF 50% DW IV FOR... UD PRN IV 09/19/16 16:15 10/19/16 16:14 Glucagon (Glucagon Inj) 1 mg UD PRN SQ 09/19/16 16:15 10/19/16 16:14 Ascorbic Acid (Vitamin C Tab) 500 mg MoWeFr@0900 PO 09/20/16 09:00 10/20/16 08:59 09/20/16 08:58 500 MG Aspirin (Ecotrin Tab) 81 mg SuTuThSa@0900 PO 09/21/16 09:00 10/21/16 08:59 Atorvastatin Calcium (Lipitor Tab) 40 mg HS PO 09/19/16 21:00 10/19/16 20:59 09/20/16 20:57 40 MG Calcium Acetate (Phoslo Cap) 1,334 mg TIDM PO 09/20/16 07:30 10/20/16 07:29 09/20/16 16:15 1,334 MG Salmeterol Xinafoate/ Fluticasone (Advair Diskus 250/50 Inh) 1 puff BID INH 09/19/16 21:00 10/19/16 20:59 09/20/16 20:55 1 PUFF Gabapentin (Neurontin Cap) 300 mg Q8 PO 09/19/16 22:00 10/19/16 21:59 09/20/16 20:56 300 MG Insulin Glargine (Lantus Solostar Pen) 5 unit BID SC 09/19/16 21:00 10/19/16 20:59 09/20/16 20:58 5 UNIT Albuterol/ Ipratropium (Combivent Respimat Inh) 1 puffs QID INH 09/19/16 21:00 10/19/16 20:59 09/20/16 20:55 1 PUFFS Lactobacillus Acidophilus (Floranex Tab) 1 tab TID PO 09/19/16 21:00 10/19/16 20:59 09/20/16 20:55 1 TAB Loratadine (Claritin Tab) 10 mg MoWeFr@0400 PO 09/20/16 04:00 10/20/16 03:59 09/20/16 03:16 10 MG Lorazepam (Ativan Tab) 0.5 mg TID PO 09/19/16 21:00 10/19/16 20:59 09/20/16 20:54 0.5 MG Metoprolol Succinate (Toprol Xl Tab) 25 mg BID PO 09/19/16 21:00 10/19/16 20:59 09/20/16 20:56 25 MG Senna/Docusate Sodium (Senokot S Tab) 1 tab HS PO 09/19/16 21:00 10/19/16 20:59 09/20/16 20:56 1 TAB Cholecalciferol (Vitamin D Tab) 5,000 inter.unit DAILY PO 09/20/16 09:00 10/20/16 08:59 09/20/16 08:56 5,000 INTER.UNIT Dexamethasone (Decadron Tab) 2 mg DAILY PO 09/20/16 09:00 10/20/16 08:59 09/20/16 08:58 2 MG Pantoprazole Sodium (Protonix Tab) 40 mg SuTuThSa@0800 PO 09/21/16 08:00 10/21/16 07:59 Oxycodone HCl (Oxycontin Tab) 30 mg Q12 PO 09/19/16 21:00 10/19/16 20:59 09/20/16 20:55 30 MG Vancomycin HCl 1 ea 1 ea UD PRN N/A 09/19/16 18:00 10/19/16 17:59 Vancomycin HCl/ Sodium Chloride (Vancomycin Inj/ Nss 250ml) 270 ml @ 125 mls/hr MoWeFr@1600 IV 09/20/16 16:00 10/20/16 15:59 09/20/16 16:15 125 MLS/HR Loratadine (Claritin Tab) 10 mg SuTuThSa@0800 PO 09/21/16 08:00 10/21/16 07:59 Polyethylene (Miralax Powder Packet) 17 gm MoWeFr@0400 PO 09/20/16 04:00 10/20/16 03:59 Polyethylene (Miralax Powder Packet) 17 gm SuTuThSa@0800 PO 09/21/16 08:00 10/21/16 07:59 Ferrous Sulfate 325 mg 325 mg DAILY PO 09/20/16 09:00 10/20/16 08:59 09/20/16 13:01 325 MG Piperacillin Sod/ Tazobactam Sod/ Dextrose (Zosyn Iv/D5 100ml) 115 ml @ 28.75 mls/ hr Q12@0400,1600 IV 09/20/16 16:00 09/30/16 03:59 09/20/16 16:15 28.75 MLS/HR Collagenase (Santyl Oint) 1 appln DAILY EXT 09/21/16 09:00 10/21/16 08:59
[2016-09-20] MEDS: ACETAMINOPHEN 325 MG TAB PO PRN (23:36)
[2016-09-21] MEDS: PIPERACILL/TAZOBAC IV 3.375 GM in DEXTROSE 5% 100ML IV SCH ×2 (03:31→16:31)
[2016-09-21 04:00] VITALS: BP 113/79; PULSE 87; TEMP 37.2; O2SAT 93
[2016-09-21] MEDS: GABAPENTIN 300 MG CAP PO SCH ×3 (05:15→19:51)
[2016-09-21] MEDS: HEPARIN SOD 5000 UNIT/0.5 ML CARP SQ SCH ×3 (05:15→19:53)
[2016-09-21 07:24] LABS: BASO % 0.1 %; BASO ABS # 0.02 K/uL (0-0.2); COMPLETE YES; EOS % 0.3 %; HEMATOCRIT 37.9 % (42-52); IG% 0.4 %; LYMPH % 7.4 %; LYMPH ABS # 1.33 K/uL (1.2-3.4); MEAN CELL VOLUME 93.1 fL (80-100); MEAN CORPUSCULAR HEMOGLOBIN 29.5 pg (25-34); MEAN CORPUSCULAR HGB CONC 31.7 g/dl (32-36); MEAN PLATELET VOLUME 9.6 fL (7.4-10.4); MONO % 5.2 %; NEUT % 86.6 %; PLATELET COUNT 274 K/uL (130-400); RED BLOOD COUNT 4.07 M/uL (4.7-6.1); WHITE BLOOD COUNT 17.96 K/uL (4.8-10.8)
[2016-09-21 07:53] LABS: BUN/CREATININE RATIO 12.7 (10-20); CALCIUM 9.6 mg/dl (8.5-10.1); CREATININE 4.1 mg/dl (0.60-1.40); POTASSIUM 4.2 mmol/L (3.5-5.1)
[2016-09-21] MEDS ORDERED: POLYETHYLENE (MIRALAX) 17 GM PACK PO SCH (08:00)
[2016-09-21 08:26] VITALS: BP 106/79; PULSE 104; TEMP 37.4; O2SAT 94
[2016-09-21] MEDS: OXYCODONE HCL 10 MG TABCR (OXYCONTIN) PO SCH ×2 (08:51→19:57)
[2016-09-21] MEDS: LORAZEPAM 0.5 MG TAB PO SCH ×3 (08:51→19:57)
[2016-09-21] MEDS: CALCIUM ACETATE 667MG GELCAP PO SCH ×3 (08:52→16:32)
[2016-09-21] MEDS: METOPROLOL SUCC 25MG EXT REL TAB PO SCH ×3 (08:53→22:20)
[2016-09-21] MEDS: LORATADINE 10 MG TAB PO SCH (08:53)
[2016-09-21] MEDS: FERROUS SULFATE 325 MG TAB PO SCH (08:53)
[2016-09-21] MEDS: LACTOBACILLUS ACIDOPHILUS (FLORANEX) TAB PO SCH ×3 (08:53→19:50)
[2016-09-21] MEDS: DEXAMETHASONE 1 MG TAB PO SCH (08:53)
[2016-09-21] MEDS: ASPIRIN 81 MG ECTAB PO SCH (08:54)
[2016-09-21] MEDS: PANTOprazole SOD 40 MG TAB PO SCH (08:54)
[2016-09-21] MEDS: CHOLECALCIFEROL 1000 INTER.UNIT TAB PO SCH (08:54)
[2016-09-21] MEDS: FLUTICASONE/SALMETEROL 250/50 (ADVAIR) 14 PUFF/1 INHALER INH SCH ×2 (08:54→19:49)
[2016-09-21] MEDS: IPRATROPIUM BROMIDE/ALBUTEROL respimat INH INH SCH ×4 (08:54→19:49)
[2016-09-21] MEDS: POLYETHYLENE (MIRALAX) 17 GM PACK PO SCH ×2 (08:54→11:42)
[2016-09-21] MEDS: COLLAGENASE OINT 30 GM TUBE EXT SCH (08:55)
[2016-09-21] MEDS: INSULIN ASPART 100 UNITS/ML 3 ML PEN SC SCH ×4 (08:58→21:00)
[2016-09-21] MEDS: INSULIN GLARGINE SOLOSTAR 100 UNITS/ML 3 ML PEN SC SCH ×2 (09:01→21:37)
[2016-09-21 12:18] VITALS: BP 116/96; PULSE 103; TEMP 36.4; O2SAT 93
[2016-09-21 15:58] VITALS: BP 111/73; PULSE 102; TEMP 37.3; O2SAT 92
[2016-09-21 19:35] VITALS: BP 92/68; PULSE 106; TEMP 37.4; O2SAT 100
[2016-09-21] MEDS: DOCUSATE SODIUM/SENNA 50/8.6MG TAB PO SCH (19:50)
[2016-09-21] MEDS: ATORVASTATIN 40 MG TAB PO SCH (19:50)
--- NOTE | 2016-09-21 20:13 | Progress Note ---
Medicine Progress Note Date & Time of Visit: September 21, 2016 at 11:00 . Subjective Uncomfortable this morning due to right knee pain + inability to move bowels. No fever. No chest pain. No cough or SOB. No nausea or vomiting. . Objective Last 8 Hrs Date Time Temp Pulse Resp B/P Pulse Ox O2 Delivery O2 Flow Rate FiO2 09/21/16 19:35 37.4 106 24 92/68 100 Room Air 09/21/16 16:00 Room Air 09/21/16 15:58 37.3 102 18 111/73 92 Room Air 09/21/16 12:18 36.4 103 18 116/96 93 Room Air Physical Exam: General- appears to be chronically ill, uncomfortable Eyes- anicteric Neck- difficult to assess neck veins due to body habitus Lungs- clear to auscultation Heart- RRR Abdomen- obese, + BS, soft, nontender Extremities- ulcer right knee; shallow ulcer right leg with clean base; right pedal pulses not palpable; capillary refill right toes ~ 3 sec; s/p left AKA Neuro- alert, mild confusion . Laboratory Results: Last 24 Hours Test 09/20/16 20:47 09/21/16 06:14 09/21/16 06:37 09/21/16 11:22 Bedside Glucose 161 mg/dl 99 mg/dl 197 mg/dl White Blood Count 17.96 K/uL Red Blood Count 4.07 M/uL Hemoglobin 12.0 g/dL Hematocrit 37.9 % Mean Corpuscular Volume 93.1 fL Mean Corpuscular Hemoglobin 29.5 pg Mean Corpuscular Hemoglobin Concent 31.7 g/dl Platelet Count 274 K/uL Mean Platelet Volume 9.6 fL Neutrophils (%) (Auto) 86.6 % Lymphocytes (%) (Auto) 7.4 % Monocytes (%) (Auto) 5.2 % Eosinophils (%) (Auto) 0.3 % Basophils (%) (Auto) 0.1 % Neutrophils # (Auto) 15.55 K/uL Lymphocytes # (Auto) 1.33 K/uL Monocytes # (Auto) 0.94 K/uL Eosinophils # (Auto) 0.05 K/uL Basophils # (Auto) 0.02 K/uL RDW Standard Deviation 49.5 fL RDW Coefficient of Variation 14.5 % Immature Granulocyte % (Auto) 0.4 % Immature Granulocyte # (Auto) 0.07 K/uL Sodium Level 134 mmol/L Potassium Level 4.2 mmol/L Chloride Level 96 mmol/L Carbon Dioxide Level 28 mmol/L Anion Gap 10.0 mmol/L Blood Urea Nitrogen 52 mg/dl Creatinine 4.10 mg/dl Est Creatinine Clear Calc Drug Dose 19.2 ml/min Estimated GFR () 17.5 Estimated GFR (Non- 15.1 BUN/Creatinine Ratio 12.7 Random Glucose 87 mg/dl Calcium Level 9.6 mg/dl Procalcitonin 7.40 ng/ml Test 09/21/16 16:18 Bedside Glucose 187 mg/dl Assessment & Plan SEPSIS Met criteria for sepsis per 2001 definition and current CMS guidelines. (reported fever, pulse greater than 90, leukocytosis, altered mental status) Hemodynamically stable in ED. Serum lactate was 0.9. Blood cultures obtained and negative so far. Procalcitonin elevated. Leukocytosis improved. Source of infection at this time uncertain. Has been on IV vancomycin for recent line infection; also has history of discitis and wound infection. IV piperacillin / tazobactam added. CHRONIC LEFT VENTRICULAR SYSTOLIC HEART FAILURE LVEF 15-20%. Follow exam, fluid status. No JOSE MARTIN or ARB due to CKD. Continue metoprolol succinate. HYPERTENSION Continue metoprolol succinate. Follow and titrate Rx. CKD V Per Nephrology. DM TYPE 2 Lantus / NovoLog per protocol. CHRONIC WOUNDS Wounds right knee and right leg. Wound Care Nursing following. VTE PROPHYLAXIS SQ heparin. DISPOSITION Expected return to [facility] for skilled care. . Current Inpatient Medications: Current Inpatient Medications Medications (Trade) Dose Ordered Sig/[facility] Route Start Time Stop Time Status Last Admin Dose Admin Heparin Sodium (Porcine) (Heparin Sq 5000 Unit/0.5ml) 5,000 unit Q8 SQ 09/19/16 22:00 10/19/16 21:59 09/21/16 19:53 5,000 UNIT Acetaminophen (Tylenol Tab) 650 mg Q4H PRN PO 09/19/16 16:00 10/19/16 15:59 09/20/16 23:36 650 MG Ondansetron HCl (Zofran Inj) 4 mg Q6H PRN IV 09/19/16 16:00 10/19/16 15:59 Piperacillin Sod/ Tazobactam Sod (Consult) 1 ea UD PRN N/A 09/19/16 16:00 10/19/16 15:59 Insulin Aspart (novoLOG ASPART) SLIDING SCALE If C... ACHS SC 09/19/16 21:00 10/19/16 20:59 09/21/16 17:46 4 UNITS Glucose (Glucose 40% Gel) 15-30 GRAMS 15 GRAMS... UD PRN PO 09/19/16 16:15 10/19/16 16:14 Glucose (Glucose Chew Tab) 4-8 Tablets 4 Tabl... UD PRN PO 09/19/16 16:15 10/19/16 16:14 Dextrose (Dextrose 50% 50ML Syringe) 25-50ML OF 50% DW IV FOR... UD PRN IV 09/19/16 16:15 10/19/16 16:14 Glucagon (Glucagon Inj) 1 mg UD PRN SQ 09/19/16 16:15 10/19/16 16:14 Ascorbic Acid (Vitamin C Tab) 500 mg MoWeFr@0900 PO 09/20/16 09:00 10/20/16 08:59 09/20/16 08:58 500 MG Aspirin (Ecotrin Tab) 81 mg SuTuThSa@0900 PO 09/21/16 09:00 10/21/16 08:59 09/21/16 08:54 81 MG Atorvastatin Calcium (Lipitor Tab) 40 mg HS PO 09/19/16 21:00 10/19/16 20:59 09/21/16 19:50 40 MG Calcium Acetate (Phoslo Cap) 1,334 mg TIDM PO 09/20/16 07:30 10/20/16 07:29 09/21/16 16:32 1,334 MG Salmeterol Xinafoate/ Fluticasone (Advair Diskus 250/50 Inh) 1 puff BID INH 09/19/16 21:00 10/19/16 20:59 09/21/16 19:49 1 PUFF Gabapentin (Neurontin Cap) 300 mg Q8 PO 09/19/16 22:00 10/19/16 21:59 09/21/16 19:51 300 MG Insulin Glargine (Lantus Solostar Pen) 5 unit BID SC 09/19/16 21:00 10/19/16 20:59 09/21/16 09:01 5 UNIT Albuterol/ Ipratropium (Combivent Respimat Inh) 1 puffs QID INH 09/19/16 21:00 10/19/16 20:59 09/21/16 19:49 1 PUFFS Lactobacillus Acidophilus (Floranex Tab) 1 tab TID PO 09/19/16 21:00 10/19/16 20:59 09/21/16 19:50 1 TAB Loratadine (Claritin Tab) 10 mg MoWeFr@0400 PO 09/20/16 04:00 10/20/16 03:59 09/20/16 03:16 10 MG Lorazepam (Ativan Tab) 0.5 mg TID PO 09/19/16 21:00 10/19/16 20:59 09/21/16 19:57 0.5 MG Metoprolol Succinate (Toprol Xl Tab) 25 mg BID PO 09/19/16 21:00 10/19/16 20:59 09/21/16 08:53 25 MG Senna/Docusate Sodium (Senokot S Tab) 1 tab HS PO 09/19/16 21:00 10/19/16 20:59 09/21/16 19:50 1 TAB Cholecalciferol (Vitamin D Tab) 5,000 inter.unit DAILY PO 09/20/16 09:00 10/20/16 08:59 09/21/16 08:54 5,000 INTER.UNIT Dexamethasone (Decadron Tab) 2 mg DAILY PO 09/20/16 09:00 10/20/16 08:59 09/21/16 08:53 2 MG Pantoprazole Sodium (Protonix Tab) 40 mg SuTuThSa@0800 PO 09/21/16 08:00 10/21/16 07:59 09/21/16 08:54 40 MG Oxycodone HCl (Oxycontin Tab) 30 mg Q12 PO 09/19/16 21:00 10/19/16 20:59 09/21/16 19:57 30 MG Vancomycin HCl 1 ea 1 ea UD PRN N/A 09/19/16 18:00 10/19/16 17:59 Vancomycin HCl/ Sodium Chloride (Vancomycin Inj/ Nss 250ml) 270 ml @ 125 mls/hr MoWeFr@1600 IV 09/20/16 16:00 10/20/16 15:59 09/20/16 16:15 125 MLS/HR Loratadine (Claritin Tab) 10 mg SuTuThSa@0800 PO 09/21/16 08:00 10/21/16 07:59 09/21/16 08:53 10 MG Polyethylene (Miralax Powder Packet) 17 gm MoWeFr@0400 PO 09/20/16 04:00 10/20/16 03:59 Polyethylene (Miralax Powder Packet) 17 gm SuTuThSa@0800 PO 09/21/16 08:00 10/21/16 07:59 09/21/16 11:42 17 GM Ferrous Sulfate 325 mg 325 mg DAILY PO 09/20/16 09:00 10/20/16 08:59 09/21/16 08:53 325 MG Piperacillin Sod/ Tazobactam Sod/ Dextrose (Zosyn Iv/D5 100ml) 115 ml @ 28.75 mls/ hr Q12@0400,1600 IV 09/20/16 16:00 09/30/16 03:59 09/21/16 16:31 28.75 MLS/HR Collagenase (Santyl Oint) 1 appln DAILY EXT 09/21/16 09:00 10/21/16 08:59 09/21/16 08:55 1 APPLN
[2016-09-22] VITALS (7 sets, daily range): BP systolic 107–127; BP diastolic 69–92; PULSE 88–111; TEMP 36.6–37.4; O2SAT 93–98
[2016-09-22] MEDS ORDERED: ACETAMINOPHEN IV 650 MG in EMPTY BAG 0 ML IV PRN (03:30)
[2016-09-22] MEDS: PIPERACILL/TAZOBAC IV 3.375 GM in DEXTROSE 5% 100ML IV SCH ×2 (03:55→17:07)
[2016-09-22 04:19] LABS: BASO % 0.1 %; BASO ABS # 0.03 K/uL (0-0.2); COMPLETE YES; EOS % 0.3 %; HEMATOCRIT 36.5 % (42-52); IG% 0.4 %; LYMPH ABS # 1.67 K/uL (1.2-3.4); MEAN CELL VOLUME 92.4 fL (80-100); MEAN CORPUSCULAR HEMOGLOBIN 30.1 pg (25-34); MEAN CORPUSCULAR HGB CONC 32.6 g/dl (32-36); MEAN PLATELET VOLUME 9.6 fL (7.4-10.4); MONO % 4.1 %; NEUT % 87.1 %; PLATELET COUNT 254 K/uL (130-400); RED BLOOD COUNT 3.95 M/uL (4.7-6.1); WHITE BLOOD COUNT 20.84 K/uL (4.8-10.8)
[2016-09-22 04:48] LABS: BUN/CREATININE RATIO 12.5 (10-20); CALCIUM 9.5 mg/dl (8.5-10.1); CREATININE 5.4 mg/dl (0.60-1.40); MAGNESIUM 2.3 mg/dl (1.8-2.4)
[2016-09-22] MEDS: GABAPENTIN 300 MG CAP PO SCH ×3 (05:41→21:28)
[2016-09-22] MEDS: HEPARIN SOD 5000 UNIT/0.5 ML CARP SQ SCH ×3 (05:42→21:29)
[2016-09-22 06:40] LABS: POTASSIUM 4.9 mmol/L (3.5-5.1)
[2016-09-22] MEDS: OXYCODONE HCL 10 MG TABCR (OXYCONTIN) PO SCH ×2 (08:13→21:28)
[2016-09-22] MEDS: LORAZEPAM 0.5 MG TAB PO SCH ×3 (08:13→21:27)
[2016-09-22] MEDS: FERROUS SULFATE 325 MG TAB PO SCH (08:14)
[2016-09-22] MEDS: LACTOBACILLUS ACIDOPHILUS (FLORANEX) TAB PO SCH ×3 (08:14→21:27)
[2016-09-22] MEDS: DEXAMETHASONE 1 MG TAB PO SCH (08:14)
[2016-09-22] MEDS: METOPROLOL SUCC 25MG EXT REL TAB PO SCH ×2 (08:14→21:29)
[2016-09-22] MEDS: IPRATROPIUM BROMIDE/ALBUTEROL respimat INH INH SCH ×4 (08:15→21:27)
[2016-09-22] MEDS: CALCIUM ACETATE 667MG GELCAP PO SCH ×3 (08:15→17:07)
[2016-09-22] MEDS: ASPIRIN 81 MG ECTAB PO SCH (08:15)
[2016-09-22] MEDS: PANTOprazole SOD 40 MG TAB PO SCH (08:15)
[2016-09-22] MEDS: LORATADINE 10 MG TAB PO SCH (08:15)
[2016-09-22] MEDS: COLLAGENASE OINT 30 GM TUBE EXT SCH (08:16)
[2016-09-22] MEDS: CHOLECALCIFEROL 1000 INTER.UNIT TAB PO SCH (08:16)
[2016-09-22] MEDS: FLUTICASONE/SALMETEROL 250/50 (ADVAIR) 14 PUFF/1 INHALER INH SCH ×2 (08:16→21:26)
[2016-09-22] MEDS: POLYETHYLENE (MIRALAX) 17 GM PACK PO SCH (08:17)
[2016-09-22] MEDS: INSULIN GLARGINE SOLOSTAR 100 UNITS/ML 3 ML PEN SC SCH ×2 (08:27→21:30)
[2016-09-22] MEDS: INSULIN ASPART 100 UNITS/ML 3 ML PEN SC SCH ×4 (08:29→21:31)
[2016-09-22] MEDS ORDERED: BISACODYL 5 MG TABEC PO PRN (11:45)
--- NOTE | 2016-09-22 14:33 | NEPHROLOGY PROGRESS NOTE ---
DATE: 09/19/2016 DATE: 09/22/2016. SUBJECTIVE: Overnight, no new issues. He feels completely normal. Denies nausea, vomiting, chest pain, shortness of breath, no edema. He had dialysis last time on Friday without any problems, 2 kilo was taken off. Denies any fever or chills. PHYSICAL EXAMINATION: VITAL SIGNS: Blood pressure 107/72, 95% on room air, pulse rate 100%, temperature 36.8. HEAD, EYES, EARS, NOSE, AND THROAT: Mucous membranes moist. NECK: Supple. No jugular venous distention. CHEST: Bilateral clear to auscultation. CARDIOVASCULAR: S1 and S2, regular. Soft systolic murmur heard. ABDOMEN: Soft, nontender, obese. EXTREMITIES: Shows trace edema. It is heavily bandaged. He does have multiple open wounds and also infected nasty looking ulcers in both legs, especially in the right. LABORATORY TESTS: Hemoglobin 11.9, white cell count 20,000, platelet count 254. Sodium 133, potassium 4.9, BUN 69, creatinine 5.4, calcium 9.5, magnesium 2.3. ASSESSMENT AND PLAN: 1. End stage renal disease. He will get his dialysis tomorrow as per his normal schedule of Friday, Friday, Friday. We will do him for 3 hours 2 kilo of fluid off and other medicines and treatment as per the outpatient orders. 2. Infection. His white count still going up and it is 20,000. He does have multiple infected looking ulcers. He is on broad-spectrum antibiotic, vancomycin and Zosyn, which will be continued. [facility]
--- NOTE | 2016-09-22 16:57 | Progress Note ---
Medicine Progress Note Date & Time of Visit: September 22, 2016 at 11:30 . Subjective Didn't sleep well last night; somnolent this morning. No documented fever since 09/20/16. Uncomfortable at times, but cannot articulate location or nature of discomfort. Nurses report no diarrhea. Unable to obtain review of systems this morning due to somnolence. . Objective Last 8 Hrs Date Time Temp Pulse Resp B/P Pulse Ox O2 Delivery O2 Flow Rate FiO2 09/22/16 15:57 36.8 104 18 127/92 96 Room Air 09/22/16 12:01 36.8 100 18 107/72 95 Room Air Physical Exam: General- chronically ill, no acute distress Neck- difficult to assess neck veins due to body habitus Lungs- clear to auscultation Heart- RRR Thorax- dialysis catheter with right infrascapular exit site Abdomen- obese, + BS, soft, nontender Extremities- ulcer right knee; right leg bandaged; right foot warm; capillary refill right toes 2-3 sec; s/p left AKA Neuro- somnolent . Laboratory Results: Last 24 Hours Test 09/21/16 20:09 09/22/16 04:10 09/22/16 06:35 09/22/16 11:32 Bedside Glucose 145 mg/dl 113 mg/dl 241 mg/dl White Blood Count 20.84 K/uL Red Blood Count 3.95 M/uL Hemoglobin 11.9 g/dL Hematocrit 36.5 % Mean Corpuscular Volume 92.4 fL Mean Corpuscular Hemoglobin 30.1 pg Mean Corpuscular Hemoglobin Concent 32.6 g/dl Platelet Count 254 K/uL Mean Platelet Volume 9.6 fL Neutrophils (%) (Auto) 87.1 % Lymphocytes (%) (Auto) 8.0 % Monocytes (%) (Auto) 4.1 % Eosinophils (%) (Auto) 0.3 % Basophils (%) (Auto) 0.1 % Neutrophils # (Auto) 18.14 K/uL Lymphocytes # (Auto) 1.67 K/uL Monocytes # (Auto) 0.85 K/uL Eosinophils # (Auto) 0.06 K/uL Basophils # (Auto) 0.03 K/uL RDW Standard Deviation 49.1 fL RDW Coefficient of Variation 14.4 % Immature Granulocyte % (Auto) 0.4 % Immature Granulocyte # (Auto) 0.09 K/uL Sodium Level 133 mmol/L Potassium Level 4.9 mmol/L Chloride Level 95 mmol/L Carbon Dioxide Level 27 mmol/L Anion Gap 11.0 mmol/L Blood Urea Nitrogen 69 mg/dl Creatinine 5.40 mg/dl Est Creatinine Clear Calc Drug Dose 14.6 ml/min Estimated GFR () 12.5 Estimated GFR (Non- 10.8 BUN/Creatinine Ratio 12.5 Random Glucose 110 mg/dl Calcium Level 9.5 mg/dl Magnesium Level 2.3 mg/dl Random Vancomycin Level 32.8 mcg/ml Test 09/22/16 16:15 Bedside Glucose 325 mg/dl Assessment & Plan SEPSIS Met criteria for sepsis per 2001 definition and current CMS guidelines. (reported fever, pulse greater than 90, leukocytosis, altered mental status) Hemodynamically stable in ED. Serum lactate was 0.9. Blood cultures obtained and negative so far. Procalcitonin elevated @ 7.4 on 09/21/16. Source of infection at this time uncertain. Has been on IV vancomycin for recent line infection; also has history of discitis and wound infection. IV piperacillin / tazobactam added. WBC fluctuating: Item Value Date Time White Blood Count 23.57 K/uL H 09/19/16 1425 White Blood Count 20.13 K/uL H 09/20/16 0514 White Blood Count 17.96 K/uL H 09/21/16 0614 White Blood Count 20.84 K/uL H 09/22/16 0410 Afebrile x 2 days. Blood cultures negative thus far. Recheck WBC, CRP, procalcitonin tomorrow. Check echo to assess for valvular vegetations. Continue wound care right knee ulcer. ? imaging of spine- doubt that patient will be able to tolerate MRI at this time. ? change dialysis catheter. Consult ID to assist with management. CHRONIC LEFT VENTRICULAR SYSTOLIC HEART FAILURE LVEF 15-20%. Compensated. Follow exam, fluid status. No JOSE MARTIN or ARB due to CKD. Continue metoprolol succinate. HYPERTENSION Continue metoprolol succinate. Follow and titrate Rx. CKD V Hemodialysis per Nephrology. DM TYPE 2 Fairly well-controlled. Hgb A1C = 6.3. FBS this morning = 113. Continue Lantus / NovoLog per protocol. CHRONIC WOUNDS Wounds right knee and right leg. Wound Care Nursing following. VTE PROPHYLAXIS SQ heparin. DISPOSITION Expected return to [facility] for skilled care. ADDENDUM: Mother visiting this afternoon and given update. . Current Inpatient Medications: Current Inpatient Medications Medications (Trade) Dose Ordered Sig/Edin Route Start Time Stop Time Status Last Admin Dose Admin Heparin Sodium (Porcine) (Heparin Sq 5000 Unit/0.5ml) 5,000 unit Q8 SQ 09/19/16 22:00 10/19/16 21:59 09/22/16 13:48 5,000 UNIT Acetaminophen (Tylenol Tab) 650 mg Q4H PRN PO 09/19/16 16:00 10/19/16 15:59 09/20/16 23:36 650 MG Ondansetron HCl (Zofran Inj) 4 mg Q6H PRN IV 09/19/16 16:00 10/19/16 15:59 Piperacillin Sod/ Tazobactam Sod (Consult) 1 ea UD PRN N/A 09/19/16 16:00 10/19/16 15:59 Insulin Aspart (novoLOG ASPART) SLIDING SCALE If C... ACHS SC 09/19/16 21:00 10/19/16 20:59 09/22/16 12:06 6 UNITS Glucose (Glucose 40% Gel) 15-30 GRAMS 15 GRAMS... UD PRN PO 09/19/16 16:15 10/19/16 16:14 Glucose (Glucose Chew Tab) 4-8 Tablets 4 Tabl... UD PRN PO 09/19/16 16:15 10/19/16 16:14 Dextrose (Dextrose 50% 50ML Syringe) 25-50ML OF 50% DW IV FOR... UD PRN IV 09/19/16 16:15 10/19/16 16:14 Glucagon (Glucagon Inj) 1 mg UD PRN SQ 09/19/16 16:15 10/19/16 16:14 Ascorbic Acid (Vitamin C Tab) 500 mg MoWeFr@0900 PO 09/20/16 09:00 10/20/16 08:59 09/20/16 08:58 500 MG Aspirin (Ecotrin Tab) 81 mg SuTuThSa@0900 PO 09/21/16 09:00 10/21/16 08:59 09/22/16 08:15 81 MG Atorvastatin Calcium (Lipitor Tab) 40 mg HS PO 09/19/16 21:00 10/19/16 20:59 09/21/16 19:50 40 MG Calcium Acetate (Phoslo Cap) 1,334 mg TIDM PO 09/20/16 07:30 10/20/16 07:29 09/22/16 12:03 1,334 MG Salmeterol Xinafoate/ Fluticasone (Advair Diskus 250/50 Inh) 1 puff BID INH 09/19/16 21:00 10/19/16 20:59 09/22/16 08:16 1 PUFF Gabapentin (Neurontin Cap) 300 mg Q8 PO 09/19/16 22:00 10/19/16 21:59 09/22/16 13:33 300 MG Insulin Glargine (Lantus Solostar Pen) 5 unit BID SC 09/19/16 21:00 10/19/16 20:59 09/22/16 08:27 5 UNIT Albuterol/ Ipratropium (Combivent Respimat Inh) 1 puffs QID INH 09/19/16 21:00 10/19/16 20:59 09/22/16 13:32 1 PUFFS Lactobacillus Acidophilus (Floranex Tab) 1 tab TID PO 09/19/16 21:00 10/19/16 20:59 09/22/16 13:33 1 TAB Loratadine (Claritin Tab) 10 mg MoWeFr@0400 PO 09/20/16 04:00 10/20/16 03:59 09/20/16 03:16 10 MG Lorazepam (Ativan Tab) 0.5 mg TID PO 09/19/16 21:00 10/19/16 20:59 09/22/16 13:32 0.5 MG Metoprolol Succinate (Toprol Xl Tab) 25 mg BID PO 09/19/16 21:00 10/19/16 20:59 09/22/16 08:14 25 MG Senna/Docusate Sodium (Senokot S Tab) 1 tab HS PO 09/19/16 21:00 10/19/16 20:59 09/21/16 19:50 1 TAB Cholecalciferol (Vitamin D Tab) 5,000 inter.unit DAILY PO 09/20/16 09:00 10/20/16 08:59 09/22/16 08:16 5,000 INTER.UNIT Dexamethasone (Decadron Tab) 2 mg DAILY PO 09/20/16 09:00 10/20/16 08:59 09/22/16 08:14 2 MG Pantoprazole Sodium (Protonix Tab) 40 mg SuTuThSa@0800 PO 09/21/16 08:00 10/21/16 07:59 09/22/16 08:15 40 MG Oxycodone HCl (Oxycontin Tab) 30 mg Q12 PO 09/19/16 21:00 10/19/16 20:59 09/22/16 08:13 30 MG Vancomycin HCl 1 ea 1 ea UD PRN N/A 09/19/16 18:00 10/19/16 17:59 Vancomycin HCl/ Sodium Chloride (Vancomycin Inj/ Nss 250ml) 270 ml @ 125 mls/hr MoWeFr@1600 IV 09/20/16 16:00 10/20/16 15:59 09/20/16 16:15 125 MLS/HR Loratadine (Claritin Tab) 10 mg SuTuThSa@0800 PO 09/21/16 08:00 10/21/16 07:59 09/22/16 08:15 10 MG Polyethylene (Miralax Powder Packet) 17 gm MoWeFr@0400 PO 09/20/16 04:00 10/20/16 03:59 Polyethylene (Miralax Powder Packet) 17 gm SuTuThSa@0800 PO 09/21/16 08:00 10/21/16 07:59 09/22/16 08:17 17 GM Ferrous Sulfate 325 mg 325 mg DAILY PO 09/20/16 09:00 10/20/16 08:59 09/22/16 08:14 325 MG Piperacillin Sod/ Tazobactam Sod/ Dextrose (Zosyn Iv/D5 100ml) 115 ml @ 28.75 mls/ hr Q12@0400,1600 IV 09/20/16 16:00 09/30/16 03:59 09/22/16 03:55 28.75 MLS/HR Collagenase 1 appln 1 appln DAILY EXT 09/21/16 09:00 10/21/16 08:59 09/22/16 08:16 1 APPLN Acetaminophen/ Empty Bag (Ofirmev Iv/ Empty Iv Bag 100ml) 65 ml @ 260 mls/hr Q6H PRN IV 09/22/16 03:30 10/22/16 03:29 09/22/16 03:55 260 MLS/HR Oxycodone/ Acetaminophen (Percocet 5-325mg Tab) 1 tab Q6H PRN PO 09/22/16 03:30 10/06/16 03:29 Bisacodyl (Dulcolax Tab) 5 mg DAILY PRN PO 09/22/16 11:45 10/22/16 11:44 09/22/16 13:32 5 MG
[2016-09-22] MEDS: ATORVASTATIN 40 MG TAB PO SCH (21:27)
[2016-09-22] MEDS: DOCUSATE SODIUM/SENNA 50/8.6MG TAB PO SCH (21:28)
[2016-09-23] VITALS (20 sets, daily range): BP systolic 91–126; BP diastolic 26–93; PULSE 49–106; TEMP 36.6–37.1; O2SAT 92–97
[2016-09-23] MEDS: POLYETHYLENE (MIRALAX) 17 GM PACK PO SCH (04:00)
[2016-09-23] MEDS: PIPERACILL/TAZOBAC IV 3.375 GM in DEXTROSE 5% 100ML IV SCH ×2 (04:39→18:17)
[2016-09-23] MEDS: LORATADINE 10 MG TAB PO SCH (04:39)
[2016-09-23] MEDS: GABAPENTIN 300 MG CAP PO SCH ×3 (04:40→21:41)
[2016-09-23] MEDS: HEPARIN SOD 5000 UNIT/0.5 ML CARP SQ SCH ×3 (04:43→21:45)
[2016-09-23] MEDS: OXYCODONE/ACETAMINOPHEN 5-325 TAB PO PRN ×3 (04:45→22:33)
[2016-09-23 05:57] LABS: HEMATOCRIT 36.9 % (42-52); MEAN CELL VOLUME 92.3 fL (80-100); MEAN CORPUSCULAR HEMOGLOBIN 29.5 pg (25-34); MEAN PLATELET VOLUME 9.8 fL (7.4-10.4); PLATELET COUNT 260 K/uL (130-400); WHITE BLOOD COUNT 20.68 K/uL (4.8-10.8)
[2016-09-23 06:38] LABS: ALB/GLOB RATIO 0.4 (0.9-2); BUN/CREATININE RATIO 12.8 (10-20); CALCIUM 9.8 mg/dl (8.5-10.1); CREATININE 6.7 mg/dl (0.60-1.40); POTASSIUM 5.1 mmol/L (3.5-5.1)
[2016-09-23 06:53] LABS: C-REACTIVE PROTEIN 19.8 mg/dl (0-0.29)
--- NOTE | 2016-09-23 07:52 | DIAGNOSTIC IMAGING REPORT ---
CHEST ONE VIEW PORTABLE HISTORY: sepsis, CHF COMPARISON: Chest 09/19/2016. FINDINGS: Improvement in the mild congestive change. No pneumothorax. Low lung volumes. The heart remains enlarged. Right jugular catheter terminates in the superior cavoatrial junction. Left-sided single lead pacemaker/defibrillator. No pleural effusions. No pneumothorax. Linear densities the right lung base favor subsegmental atelectasis. IMPRESSION: Improvement in the mild congestive change. Stable cardiomegaly. Electronically signed by: Ralph Wallace M.D. 09/23/2016 7:51 AM Dictated Date/Time: 09/23/2016 7:49 AM
--- NOTE | 2016-09-23 07:56 | DIAGNOSTIC IMAGING REPORT ---
RIGHT KNEE 1 OR 2 VIEWS ROUTINE CLINICAL HISTORY: Sepsis. Right knee wound. Evaluate for osteomyelitis. COMPARISON: CT of the right knee June 04, 2016. FINDINGS: Incidental note is made of surgical clips and vascular stents which project of the distal right thigh. Alignment of the right knee is anatomic. There is a moderate to large right knee joint effusion. Lateral view demonstrates a suspected wound overlying the patella. The bone may be exposed. There is no radiographic evidence of osteomyelitis. Soft tissue gas is present. IMPRESSION: 1. Moderate to large right knee joint effusion. 2. Wound projecting over the patella with possible bone exposure. Suspected soft tissue gas. 3. No bony erosion identified to suggest osteomyelitis by radiography. Electronically signed by: Garry Lyman M.D. 09/23/2016 7:55 AM Dictated Date/Time: 09/23/2016 7:50 AM
[2016-09-23] MEDS: OXYCODONE HCL 10 MG TABCR (OXYCONTIN) PO SCH ×2 (08:51→21:39)
[2016-09-23] MEDS: CALCIUM ACETATE 667MG GELCAP PO SCH ×3 (08:51→18:15)
[2016-09-23] MEDS: LORAZEPAM 0.5 MG TAB PO SCH ×3 (08:51→21:39)
[2016-09-23] MEDS: DEXAMETHASONE 1 MG TAB PO SCH (08:52)
[2016-09-23] MEDS: LACTOBACILLUS ACIDOPHILUS (FLORANEX) TAB PO SCH ×3 (08:52→21:39)
[2016-09-23] MEDS: FERROUS SULFATE 325 MG TAB PO SCH (08:53)
[2016-09-23] MEDS: ASCORBIC ACID 500 MG TAB PO SCH (08:53)
[2016-09-23] MEDS: CHOLECALCIFEROL 1000 INTER.UNIT TAB PO SCH (08:54)
[2016-09-23] MEDS: IPRATROPIUM BROMIDE/ALBUTEROL respimat INH INH SCH ×4 (08:55→21:40)
[2016-09-23] MEDS: FLUTICASONE/SALMETEROL 250/50 (ADVAIR) 14 PUFF/1 INHALER INH SCH ×2 (08:55→21:40)
[2016-09-23] MEDS: METOPROLOL SUCC 25MG EXT REL TAB PO SCH ×2 (08:55→21:00)
[2016-09-23] MEDS: INSULIN GLARGINE SOLOSTAR 100 UNITS/ML 3 ML PEN SC SCH ×2 (08:56→21:44)
[2016-09-23] MEDS ORDERED: ETHYL CHLORIDE AER SPR 100 ML CAN EXT ONE (09:00)
[2016-09-23] MEDS: INSULIN ASPART 100 UNITS/ML 3 ML PEN SC SCH ×4 (09:01→21:43)
--- NOTE | 2016-09-23 09:47 | Medical Consult ---
Consultation Date of Consultation: September 23, 2016. Attending Physician: Eugene Willoughby M.D. Reason for Consultation: Sepsis, ? 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 He was started empirically on combination of vancomycin and Zosyn, blood cultures are pending. He has had x-ray of his right knee, read by me, which shows large effusion. Orthopedic consultation pending Past Medical/Surgical History Medical Problems: (1) Altered mental status Status: Acute (2) Diabetes mellitus out of control Status: Acute (3) Elevated troponin Status: Acute (4) Elevated troponin Status: Acute (5) Elevated troponin Status: Acute (6) End stage renal failure on dialysis Status: Acute (7) Failure of outpatient treatment Status: Acute (8) Hyperkalemia Status: Acute (9) Hypocalcemia Status: Acute (10) Hypoglycemia Status: Acute (11) Hypokalemia Status: Acute (12) Hyponatremia Status: Acute (13) Hypotension Status: Acute (14) Hypothermia Status: Acute (15) Leukocytosis Status: Acute (16) Mass of spine Status: Acute (17) Opiate overdose Status: Acute (18) Renal failure Status: Acute (19) Renal insufficiency Status: Acute (20) Sepsis Status: Acute (21) Ulcer of toe Status: Acute (22) Ulcers of both lower extremities Status: Acute (23) UTI (urinary tract infection) Status: Acute (24) UTI (urinary tract infection) Status: Acute Medical Problems: (1) Acute on chronic renal failure (2) Anemia (3) Arterial occlusion (4) Cardiomyopathy (5) CHF (congestive heart failure) (6) Chronic back pain (7) CKD (chronic kidney disease), stage III (8) Coronary artery disease (9) DM type 2 (diabetes mellitus, type 2) (10) Fever (11) HTN (hypertension) (12) Hyperlipidemia (13) Hypoxia (14) Infected permcath (15) Leukocytosis (16) Obesity (17) Osteomyelitis (18) PAD (peripheral artery disease) (19) PVD (peripheral vascular disease) (20) Unresponsiveness Surgical Problems: (1) ICD (implantable cardioverter-defibrillator), single, in situ (2) S/P AKA (above knee amputation) (3) S/P femoral-popliteal bypass surgery (4) Toe amputation status Family History Coronary artery disease MOTHER FH: atrial fibrillation FATHER FH: cancer FATHER Hypertension SISTER Valvular heart disease FATHER Social History Smoking Status: Former Smoker Alcohol Use: none Marital Status: single Housing Status: intermediate Occupation Status: disabled Allergies Coded Allergies: Daptomycin (Verified Allergy, Severe, WATER ON LUNGS, 09/19/16) pt stated this allergy is "lethal" for him POLLEN (Verified Allergy, Unknown, 09/19/16) Ciprofloxacin (Verified Adverse Reaction, Intermediate, NAUSEA AND DIARHHEA, 09/19/16) Current Inpatient Medications Current Inpatient Medications Medications (Trade) Dose Ordered Sig/Edin Route Start Time Stop Time Status Last Admin Dose Admin Heparin Sodium (Porcine) (Heparin Sq 5000 Unit/0.5ml) 5,000 unit Q8 SQ 09/19/16 22:00 10/19/16 21:59 09/23/16 04:43 5,000 UNIT Acetaminophen (Tylenol Tab) 650 mg Q4H PRN PO 09/19/16 16:00 10/19/16 15:59 09/20/16 23:36 650 MG Ondansetron HCl (Zofran Inj) 4 mg Q6H PRN IV 09/19/16 16:00 10/19/16 15:59 Piperacillin Sod/ Tazobactam Sod (Consult) 1 ea UD PRN N/A 09/19/16 16:00 10/19/16 15:59 Insulin Aspart (novoLOG ASPART) SLIDING SCALE If C... ACHS SC 09/19/16 21:00 10/19/16 20:59 09/23/16 09:01 6 UNITS Glucose (Glucose 40% Gel) 15-30 GRAMS 15 GRAMS... UD PRN PO 09/19/16 16:15 10/19/16 16:14 Glucose (Glucose Chew Tab) 4-8 Tablets 4 Tabl... UD PRN PO 09/19/16 16:15 10/19/16 16:14 Dextrose (Dextrose 50% 50ML Syringe) 25-50ML OF 50% DW IV FOR... UD PRN IV 09/19/16 16:15 10/19/16 16:14 Glucagon (Glucagon Inj) 1 mg UD PRN SQ 09/19/16 16:15 10/19/16 16:14 Ascorbic Acid (Vitamin C Tab) 500 mg MoWeFr@0900 PO 09/20/16 09:00 10/20/16 08:59 09/23/16 08:53 500 MG Aspirin (Ecotrin Tab) 81 mg SuTuThSa@0900 PO 09/21/16 09:00 10/21/16 08:59 09/22/16 08:15 81 MG Atorvastatin Calcium (Lipitor Tab) 40 mg HS PO 09/19/16 21:00 10/19/16 20:59 09/22/16 21:27 40 MG Calcium Acetate (Phoslo Cap) 1,334 mg TIDM PO 09/20/16 07:30 10/20/16 07:29 09/23/16 08:51 1,334 MG Salmeterol Xinafoate/ Fluticasone (Advair Diskus 250/50 Inh) 1 puff BID INH 09/19/16 21:00 10/19/16 20:59 09/23/16 08:55 1 PUFF Gabapentin (Neurontin Cap) 300 mg Q8 PO 09/19/16 22:00 10/19/16 21:59 09/23/16 04:40 300 MG Insulin Glargine (Lantus Solostar Pen) 5 unit BID SC 09/19/16 21:00 10/19/16 20:59 09/23/16 08:56 5 UNIT Albuterol/ Ipratropium (Combivent Respimat Inh) 1 puffs QID INH 09/19/16 21:00 10/19/16 20:59 09/23/16 08:55 1 PUFFS Lactobacillus Acidophilus (Floranex Tab) 1 tab TID PO 09/19/16 21:00 10/19/16 20:59 09/23/16 08:52 1 TAB Loratadine (Claritin Tab) 10 mg MoWeFr@0400 PO 09/20/16 04:00 10/20/16 03:59 09/23/16 04:39 10 MG Lorazepam (Ativan Tab) 0.5 mg TID PO 09/19/16 21:00 10/19/16 20:59 09/23/16 08:51 0.5 MG Metoprolol Succinate (Toprol Xl Tab) 25 mg BID PO 09/19/16 21:00 10/19/16 20:59 09/23/16 08:55 25 MG Senna/Docusate Sodium (Senokot S Tab) 1 tab HS PO 09/19/16 21:00 10/19/16 20:59 09/22/16 21:28 1 TAB Cholecalciferol (Vitamin D Tab) 5,000 inter.unit DAILY PO 09/20/16 09:00 10/20/16 08:59 09/23/16 08:54 5,000 INTER.UNIT Dexamethasone (Decadron Tab) 2 mg DAILY PO 09/20/16 09:00 10/20/16 08:59 09/23/16 08:52 2 MG Pantoprazole Sodium (Protonix Tab) 40 mg SuTuThSa@0800 PO 09/21/16 08:00 10/21/16 07:59 09/22/16 08:15 40 MG Oxycodone HCl (Oxycontin Tab) 30 mg Q12 PO 09/19/16 21:00 10/19/16 20:59 09/23/16 08:51 30 MG Vancomycin HCl 1 ea 1 ea UD PRN N/A 09/19/16 18:00 10/19/16 17:59 Vancomycin HCl/ Sodium Chloride (Vancomycin Inj/ Nss 250ml) 270 ml @ 125 mls/hr MoWeFr@1600 IV 09/20/16 16:00 10/20/16 15:59 09/20/16 16:15 125 MLS/HR Loratadine (Claritin Tab) 10 mg SuTuThSa@0800 PO 09/21/16 08:00 10/21/16 07:59 09/22/16 08:15 10 MG Polyethylene (Miralax Powder Packet) 17 gm MoWeFr@0400 PO 09/20/16 04:00 10/20/16 03:59 Polyethylene (Miralax Powder Packet) 17 gm SuTuThSa@0800 PO 09/21/16 08:00 10/21/16 07:59 09/22/16 08:17 17 GM Ferrous Sulfate 325 mg 325 mg DAILY PO 09/20/16 09:00 10/20/16 08:59 09/23/16 08:53 325 MG Piperacillin Sod/ Tazobactam Sod/ Dextrose (Zosyn Iv/D5 100ml) 115 ml @ 28.75 mls/ hr Q12@0400,1600 IV 09/20/16 16:00 09/30/16 03:59 09/23/16 04:39 28.75 MLS/HR Collagenase 1 appln 1 appln DAILY EXT 09/21/16 09:00 10/21/16 08:59 09/22/16 08:16 1 APPLN Acetaminophen/ Empty Bag (Ofirmev Iv/ Empty Iv Bag 100ml) 65 ml @ 260 mls/hr Q6H PRN IV 09/22/16 03:30 10/22/16 03:29 09/22/16 03:55 260 MLS/HR Oxycodone/ Acetaminophen (Percocet 5-325mg Tab) 1 tab Q6H PRN PO 09/22/16 03:30 10/06/16 03:29 09/23/16 04:45 1 TAB Bisacodyl (Dulcolax Tab) 5 mg DAILY PRN PO 09/22/16 11:45 10/22/16 11:44 09/22/16 13:32 5 MG Review of Systems Constitutional: + fever, + weakness Eyes: No problem reported ENT: No problem reported Respiratory: No problem reported Cardiovascular: No problem reported Abdomen: No problem reported Musculoskeletal: + joint pain Genitourinary - Male: No problem reported Neurologic: + weakness Psychiatric: No problem reported Endocrine: No problem reported Hematologic / Lymphatic: No problem reported Integumentary: + new/changing skin lesions Allergic / Immunologic: No problem reported Physical Exam Date Time Temp Pulse Resp B/P Pulse Ox O2 Delivery O2 Flow Rate FiO2 09/23/16 09:15 78 121/53 09/23/16 09:00 90 114/55 09/23/16 08:40 92 113/69 09/23/16 08:30 37.1 94 106/63 09/23/16 08:08 37.0 95 18 95/86 92 Room Air 09/23/16 04:00 Room Air 09/23/16 03:57 36.8 89 20 114/88 94 Room Air 09/23/16 00:01 Room Air 09/22/16 23:32 36.9 88 20 112/87 98 Room Air 09/22/16 20:00 Room Air 09/22/16 19:48 36.8 100 18 110/88 93 Room Air 09/22/16 16:00 Room Air 09/22/16 15:57 36.8 104 18 127/92 96 Room Air 09/22/16 12:01 36.8 100 18 107/72 95 Room Air 09/22/16 12:00 Room Air General Appearance: no apparent distress, + pertinent finding (Chronically ill- appearing) Head: normocephalic, atraumatic Eyes: normal inspection, EOMI, sclerae normal ENT: normal ENT inspection, pharynx normal Neck: supple, no adenopathy, thyroid normal, trachea midline Respiratory/Chest: chest non-tender, lungs clear, normal breath sounds, no respiratory distress Cardiovascular: regular rate, rhythm, no gallop, no murmur Abdomen/GI: normal bowel sounds, non tender, soft, no organomegaly (The) Back: normal inspection, no CVA tenderness Extremities/Musculoskelatal: + inflammation (Right knee), + slow capillary refill Neurologic/Psych: alert, normal reflexes Skin: normal color, no rash, + pertinent finding (Expose right patella, surrounding erythema, ulceration medially) Lymphatic: no adenopathy Laboratory Results RUN DATE: 09/21/16 [facility] LAB PAGE 1 RUN TIME: 724 Specimen Inquiry PATIENT: ARINBEATAYOUNG W LOC: [place] U # : [id number] AGE/SX: 56/M ROOM: E203 REG : 09/19/[address]: Eugene Willoughby M.D. : 1960 BED: 1 DIS : STATUS: ADM IN TLOC: SPEC #: [id number] CLAUDIA: 09/19/16 STATUS: RES REQ #: [id number] RECD: 09/19/16-[address]: Raheel Givens M.D. SOURCE: BLOOD ENTR: 09/19/16-[address]: Delmi Avila [facility]: ORDERED: BLOOD CULTURE Procedure Result Verified Site BLD CULT Preliminary 09/21/16 NO GROWTH TO DATE. Last 24 Hours Test 09/22/16 11:32 09/22/16 16:15 09/22/16 20:23 09/23/16 05:30 Bedside Glucose 241 mg/dl 325 mg/dl 174 mg/dl White Blood Count 20.68 K/uL Red Blood Count 4.00 M/uL Hemoglobin 11.8 g/dL Hematocrit 36.9 % Mean Corpuscular Volume 92.3 fL Mean Corpuscular Hemoglobin 29.5 pg Mean Corpuscular Hemoglobin Concent 32.0 g/dl RDW Standard Deviation 49.4 fL RDW Coefficient of Variation 14.5 % Platelet Count 260 K/uL Mean Platelet Volume 9.8 fL Sodium Level 130 mmol/L Potassium Level 5.1 mmol/L Chloride Level 92 mmol/L Carbon Dioxide Level 24 mmol/L Anion Gap 14.0 mmol/L Blood Urea Nitrogen 86 mg/dl Creatinine 6.70 mg/dl Est Creatinine Clear Calc Drug Dose 11.7 ml/min Estimated GFR () 9.7 Estimated GFR (Non- 8.3 BUN/Creatinine Ratio 12.8 Random Glucose 124 mg/dl Calcium Level 9.8 mg/dl Total Bilirubin 0.4 mg/dl Aspartate Amino Transf (AST/SGOT) 9 U/L Alanine Aminotransferase (ALT/SGPT) 12 U/L Alkaline Phosphatase 115 U/L C-Reactive Protein 19.80 mg/dl Total Protein 7.4 gm/dl Albumin 2.1 gm/dl Globulin 5.3 gm/dl Albumin/Globulin Ratio 0.4 Procalcitonin 4.38 ng/ml Test 09/23/16 06:34 Bedside Glucose 120 mg/dl Patient Name: YOUNG HINKLE Unit Number: [id number] Dictated: 09/23/16749 Transcribed: 09/23/16749 VAIBHAV Printed Date/Time: [~ rep prt dt]/[~ rep prt tm] [~ rep ct labl] - [~ rep ct ivnm] [facility] [place] [address] Dictated: 09/23/16749 Transcribed: 09/23/16749 VAIBHAV Printed Date/Time: [~ rep prt dt]/[~ rep prt tm] [~ rep ct labl] - [~ rep ct ivnm] RIGHT KNEE 1 OR 2 VIEWS ROUTINE CLINICAL HISTORY: Sepsis. Right knee wound. Evaluate for osteomyelitis. COMPARISON: CT of the right knee June 04, 2016. FINDINGS: Incidental note is made of surgical clips and vascular stents which project of the distal right thigh. Alignment of the right knee is anatomic. There is a moderate to large right knee joint effusion. Lateral view demonstrates a suspected wound overlying the patella. The bone may be exposed. There is no radiographic evidence of osteomyelitis. Soft tissue gas is present. IMPRESSION: 1. Moderate to large right knee joint effusion. 2. Wound projecting over the patella with possible bone exposure. Suspected soft tissue gas. 3. No bony erosion identified to suggest osteomyelitis by radiography. Electronically signed by: Garry Lyman M.D. 09/23/2016 7:55 AM Dictated Date/Time: 09/23/2016 7:50 AM The status of this report is Signed. Draft = Not yet reviewed or approved by Radiologist. Signed = Reviewed and approved by Radiologist. <AttendingPhy>Eugene Willoughby M.D.</AttendingPhy> <FamilyPhy>[facility] [place] </FamilyPhy> <PrimaryPhy>[facility] [place]</PrimaryPhy> <UnitNumber>[id number] </UnitNumber> <VisitNumber>[id number]</VisitNumber> <PatientName>YOUNG HINKLE Laurence </PatientName> <DateOfBirth>1960</DateOfBirth> <Location>C.2E</Location> < ServiceDate>09/19/16</ServiceDate> <MNE>ESINDI</MNE> <OrderingPhy>Eugene Willoughby M.D.</OrderingPhy> <OrderingPhyMNE>f rep ord dr layton</OrderingPhyMNE> < DictatingPhyMNE>f rep dict dr layton</DictatingPhyMNE> <CCListMNE>f rep ct mne</ CCListMNE> <AdmittingPhyMNE>f pt admit dr layton</AdmittingPhyMNE> <AttendingPhyMNE >f pt attend dr layton</AttendingPhyMNE> <ConsultingPhyMNE>f pt consult dr layton</ConsultingPhyMNE> <FamilyPhyMNE>f pt fam dr layton</FamilyPhyMNE> <OtherPhyMNE>f pt other dr layton</OtherPhyMNE> < PrimaryPhyMNE>f pt prim care dr layton</PrimaryPhyMNE> <ReferringPhyMNE>f pt referring dr layton</ReferringPhyMNE> Assessment & Plan 56-year-old male with end-stage renal disease on dialysis with longstanding diabetes, now with sepsis and encephalopathy with most likely source being right knee infection. Previous cultures have grown Pseudomonas, so Zosyn appropriate therapy pending further culture results. Agree with need for orthopedic consultation and likely will require aspiration of the knee. Would continue on Vanco for now. Will follow.
[2016-09-23] MEDS: COLLAGENASE OINT 30 GM TUBE EXT SCH (11:53)
[2016-09-23] MEDS ORDERED: LIDOCAINE HCL 1% 20 ML VIAL ONE (14:41)
--- NOTE | 2016-09-23 15:03 | Procedure Note ---
Procedure Note Date of Service September 23, 2016. Procedure Note Patient's right knee was examined. He has a moderate effusion. There is chronic ulceration over the patella that is currently dressed. There is access superiorly without erythema. Patient was agreeable to aspiration. Patient was prepped in sterile fashion with Betadine and alcohol. He as injected laterally with 3cc 1% Lidocaine. Patient was re-prepped with Betadine and alcohol. 18guage need was introduced. I was able to aspiration 10cc of thick, greenish/ purulent material. Patient was not tolerating the procedure well so I did not attempt to remove any additional fluid. Sterile dressing was applied. Fluid will be sent for c&s, gram stain, cell count.
--- NOTE | 2016-09-23 15:35 | ECHOCARDIOGRAM REPORT ---
*NOTICE TO RECEIVING DEMOCRAT AGENCY This information is strictly Confidential and protected under [place] law. [place] law prohibits you from making any further disclosure of this information unless further disclosure is expressly permitted by the written consent of the person to whom it pertains or is authorized by law. A general authorization for the release of medical or other information is not sufficient for this purpose. Hospital accepts no responsibility if the information is made available to any other person, INCLUDING THE PATIENT. Interpretation Summary * Name: YOUNG HINKLE Study Date: 09/23/2016 01:21 PM BP: 114/88 mmHg * Patient Location: C.2E\S\E203\S\1 HR: 89 * : 1960 (M/d/yyyy) Gender: Male Height: 65 in * Age: 56 yrs Ethnicity: CA Weight: 170 lb * Ordering Physician: Eugene Willoughby * Performed By: Lety Mandel * * Reason For Study: FEVER, SOURCE UNCLEAR, FOLLOW-UP VEGETATIONS * BSA: 1.8 m2 * Limited views were obtained. * There is no evidence of a mass or vegetation. This does not rule out endocarditis. * -- Conclusions -- * Left ventricular systolic function is severely reduced. * Ejection Fraction = 15-20%. * There is severe global hypokinesis of the left ventricle. Procedure Details * The study was technically difficult. * There were technical limitations due to patient'spoor positioning Left Ventricle * The left ventricle is moderately dilated. * Left ventricular systolic function is severely reduced. * Ejection Fraction = 15-20%. * There is severe global hypokinesis of the left ventricle. Right Ventricle * The right ventricular cavity size is normal (basal dimension <4.2 cm in right ventricular apical 4-chamber view). * The right ventricular systolic function is qualitatively normal. Atria * The left atrium is severely dilated. * Right atrium not well visualized. Mitral Valve * There is mild mitral annular calcification. * There is no mitral valve stenosis. * There is trace mitral regurgitation. Tricuspid Valve * The tricuspid valve anatomy is normal. * There is no tricuspid stenosis. * There is mild tricuspid regurgitation. Aortic Valve * The aortic valve is not well visualized. * No hemodynamically significant valvular aortic stenosis. * There is no significant aortic regurgitation. Pulmonic Valve * The pulmonary valve is inadequately visualized, but the Doppler data is adequate for interpretation. * There is no pulmonic valvular stenosis. * There is no pulmonic valvular regurgitation. Great Vessels * Normal inferior vena cava size and collapsability with sniff indicates a normal right atrial pressure of 3 mmHg MMode 2D Measurements and Calculations IVSd 1.2 cm IVSs 1.6 cm LVIDd 6.0 cm LVIDs 5.5 cm LVPWd 0.77 cm LVPWs 1.0 cm IVS/LVPW 1.6 FS 9.2 % EDV(Teich) 181.0 ml ESV(Teich) 145.1 ml EF(Teich) 19.8 % EDV(cubed) 217.6 ml ESV(cubed) 162.9 ml EF(cubed) 25.1 % % IVS thick 31.3 % % LVPW thick 30.5 % LV mass(C)d 244.1 grams LV mass(C)dI 132.2 grams/m\S\2 LV mass(C)s 299.3 grams LV mass(C)sI 162.1 grams/m\S\2 SV(Teich) 35.9 ml SI(Teich) 19.5 ml/m\S\2 SV(cubed) 54.6 ml SI(cubed) 29.6 ml/m\S\2 LA dimension 5.4 cm LVOT diam 2.0 cm LVOT area 3.2 cm\S\2
[2016-09-23] MEDS: VANCOMYCIN INJ 1,000 MG in SODIUM CHLORIDE 0.9% 250ML 250 ML IV SCH (15:54)
--- NOTE | 2016-09-23 16:11 | HISTORY & PHYSICAL EXAMINATION ---
DATE OF ADMISSION: 09/19/2016 CHIEF COMPLAINT: Right knee pain and effusion, questionable septic knee. HISTORY OF PRESENT ILLNESS: Mr. Daniels is a 56-year-old male with past medical history significant for end-stage renal disease, on dialysis; type 2 diabetes; heart disease; ischemic cardiomyopathy with ejection fraction of 15-20%; right superficial calf infection; right knee chronic wound infection; history of MRSA bacteremia; chronic respiratory failure, on supplemental O2; history of left AKA, who was sent to the Emergency Room from [facility] on September 19. The patient was having episodes of confusion and elevated white count. He also had a UA which appeared to be infectious. The patient had a fever of 101 degrees at [facility] and was brought to the Emergency Room for further evaluation. Patient has a chronic ulceration of the right knee and is under the care of Dr. Macario. He is complaining of right knee pain and moderate effusion. There is question whether this is the source of his potential sepsis. PAST MEDICAL HISTORY: See HPI. FAMILY HISTORY: Positive for coronary artery disease, hypertension, and valve disease. SOCIAL HISTORY: The patient denies tobacco or alcohol use. He lives in assisted living at [facility] and is currently disabled. ALLERGIES: DAPTOMYCIN, POLLEN AND CIPRO. MEDICATIONS: See the chart. REVIEW OF SYSTEMS: Please see the already dictated history. PHYSICAL EXAMINATION: GENERAL: This is an alert 56-year-old male who currently appears comfortable. He does have some pain with movement but overall is in no distress. HEENT: Normocephalic, atraumatic. Mucous membranes are moist and intact. NECK: Supple without lymphadenopathy. HEART: Regular rate and rhythm without murmurs, rubs or gallops. LUNGS: Clear to auscultation without wheezes or rhonchi. ABDOMEN: Soft and nontender. Bowel sounds are equal and active. EXTREMITIES: With focus to the right knee, the patient has chronic ulceration over the right patella. He has some mild erythema surrounding the ulceration. He is currently being treated by wound care for this. He has no right lower extremity edema. He does have moderate joint effusion. Knee is extremely painful to palpation and any movement. He is very guarded to exam. Right lower extremity peripheral pulses are difficult to palpate; however, the right forefoot is warm with good capillary refill. Left lower extremity has a left AKA. He has a dressing over the right calf wound. LABORATORY RESULTS: White blood count today is 20.68. CRP is 19.8. X-ray of the right knee shows large joint effusion. He has a wound projecting over the patella with possible bony exposure. No evidence of osteomyelitis. Blood cultures are NGTD at this time. DESCRIPTION OF PROCEDURE: The patient was sterilely prepped and injected with 3 mL of 1% lidocaine. He was reprepped sterilely with Betadine and alcohol. Using an 18 gauge needle, I was able to withdraw about 10 mL of thick, greenish/brown, purulent fluid from the knee. This was sent for gram stain and culture. Sterile dressing was applied. IMPRESSION: Septic right knee. Right knee skin ulceration Superficial wound right calf PLAN: The patient is currently on IV Zosyn plus Vancomycin due to previous cultures that grew pseudomonas per Dr. Monk and the infectious disease team. These should be continued. He has multiple comorbidities, and will be a high risk surgical candidate for any type of procedure at this point. We will need to discuss recommendations with on-call physician. At this time, we are potentially considering arthroscopic I&D vs. right AKA. Obviously, we will need to discuss these options with the patient. I did discuss with Dr. Willoughby today. [place]
--- NOTE | 2016-09-23 16:11 | Nephrology Progress Note ---
Nephrology Progress Note Date of Service: September 23, 2016. Subjective 56 yo male with esrd with chronic infection of knee with effusion that was tapped and appears infectious. pt with worsening confusion and poor memory. had dialysis today. no complaints. Objective Date Time Temp Pulse Resp B/P Pulse Ox O2 Delivery O2 Flow Rate FiO2 09/23/16 13:15 Room Air 09/23/16 11:55 37.0 106 15 123/26 94 Room Air 09/23/16 11:50 37.0 66 118/56 09/23/16 11:30 49 91/52 09/23/16 11:15 57 123/36 09/23/16 11:00 50 102/50 09/23/16 10:45 58 112/57 09/23/16 10:30 54 94/53 09/23/16 10:15 68 92/45 09/23/16 10:00 78 123/57 09/23/16 09:45 100 124/68 09/23/16 09:30 Room Air 09/23/16 09:30 104 117/61 09/23/16 09:15 78 121/53 09/23/16 09:00 90 114/55 09/23/16 08:40 92 113/69 09/23/16 08:30 37.1 94 106/63 09/23/16 08:08 37.0 95 18 95/86 92 Room Air 09/23/16 04:00 Room Air 09/23/16 03:57 36.8 89 20 114/88 94 Room Air 09/23/16 00:01 Room Air 09/22/16 23:32 36.9 88 20 112/87 98 Room Air 09/22/16 20:00 Room Air 09/22/16 19:48 36.8 100 18 110/88 93 Room Air Physical Exam: General-aaox2, confused Eyes-no scleral icterus ENT-mmm Neck-supple Lungs-cta Heart-tachy Abdomen-bs+ s/nt/nd Extremities-right knee infection, left aka Neuro-confused -chronic blair Current Inpatient Medications Medications (Trade) Dose Ordered Sig/Edin Route Start Time Stop Time Status Last Admin Dose Admin Heparin Sodium (Porcine) (Heparin Sq 5000 Unit/0.5ml) 5,000 unit Q8 SQ 09/19/16 22:00 10/19/16 21:59 09/23/16 14:00 5,000 UNIT Acetaminophen (Tylenol Tab) 650 mg Q4H PRN PO 09/19/16 16:00 10/19/16 15:59 09/20/16 23:36 650 MG Ondansetron HCl (Zofran Inj) 4 mg Q6H PRN IV 09/19/16 16:00 10/19/16 15:59 Piperacillin Sod/ Tazobactam Sod (Consult) 1 ea UD PRN N/A 09/19/16 16:00 10/19/16 15:59 Insulin Aspart (novoLOG ASPART) SLIDING SCALE If C... ACHS SC 09/19/16 21:00 10/19/16 20:59 09/23/16 09:01 6 UNITS Glucose (Glucose 40% Gel) 15-30 GRAMS 15 GRAMS... UD PRN PO 09/19/16 16:15 10/19/16 16:14 Glucose (Glucose Chew Tab) 4-8 Tablets 4 Tabl... UD PRN PO 09/19/16 16:15 10/19/16 16:14 Dextrose (Dextrose 50% 50ML Syringe) 25-50ML OF 50% DW IV FOR... UD PRN IV 09/19/16 16:15 10/19/16 16:14 Glucagon (Glucagon Inj) 1 mg UD PRN SQ 09/19/16 16:15 10/19/16 16:14 Ascorbic Acid (Vitamin C Tab) 500 mg MoWeFr@0900 PO 09/20/16 09:00 10/20/16 08:59 09/23/16 08:53 500 MG Aspirin (Ecotrin Tab) 81 mg SuTuThSa@0900 PO 09/21/16 09:00 10/21/16 08:59 09/22/16 08:15 81 MG Atorvastatin Calcium (Lipitor Tab) 40 mg HS PO 09/19/16 21:00 10/19/16 20:59 09/22/16 21:27 40 MG Calcium Acetate (Phoslo Cap) 1,334 mg TIDM PO 09/20/16 07:30 10/20/16 07:29 09/23/16 08:51 1,334 MG Salmeterol Xinafoate/ Fluticasone (Advair Diskus 250/50 Inh) 1 puff BID INH 09/19/16 21:00 10/19/16 20:59 09/23/16 08:55 1 PUFF Gabapentin (Neurontin Cap) 300 mg Q8 PO 09/19/16 22:00 10/19/16 21:59 09/23/16 14:00 300 MG Insulin Glargine (Lantus Solostar Pen) 5 unit BID SC 09/19/16 21:00 10/19/16 20:59 09/23/16 08:56 5 UNIT Albuterol/ Ipratropium (Combivent Respimat Inh) 1 puffs QID INH 09/19/16 21:00 10/19/16 20:59 09/23/16 13:39 1 PUFFS Lactobacillus Acidophilus (Floranex Tab) 1 tab TID PO 09/19/16 21:00 10/19/16 20:59 09/23/16 14:00 1 TAB Loratadine (Claritin Tab) 10 mg MoWeFr@0400 PO 09/20/16 04:00 10/20/16 03:59 09/23/16 04:39 10 MG Lorazepam (Ativan Tab) 0.5 mg TID PO 09/19/16 21:00 10/19/16 20:59 09/23/16 08:51 0.5 MG Metoprolol Succinate (Toprol Xl Tab) 25 mg BID PO 09/19/16 21:00 10/19/16 20:59 09/23/16 08:55 25 MG Senna/Docusate Sodium (Senokot S Tab) 1 tab HS PO 09/19/16 21:00 10/19/16 20:59 09/22/16 21:28 1 TAB Cholecalciferol (Vitamin D Tab) 5,000 inter.unit DAILY PO 09/20/16 09:00 10/20/16 08:59 09/23/16 08:54 5,000 INTER.UNIT Dexamethasone (Decadron Tab) 2 mg DAILY PO 09/20/16 09:00 10/20/16 08:59 09/23/16 08:52 2 MG Pantoprazole Sodium (Protonix Tab) 40 mg SuTuThSa@0800 PO 09/21/16 08:00 10/21/16 07:59 09/22/16 08:15 40 MG Oxycodone HCl (Oxycontin Tab) 30 mg Q12 PO 09/19/16 21:00 10/19/16 20:59 09/23/16 08:51 30 MG Vancomycin HCl 1 ea 1 ea UD PRN N/A 09/19/16 18:00 10/19/16 17:59 Vancomycin HCl/ Sodium Chloride (Vancomycin Inj/ Nss 250ml) 270 ml @ 125 mls/hr MoWeFr@1600 IV 09/20/16 16:00 10/20/16 15:59 09/23/16 15:54 125 MLS/HR Loratadine (Claritin Tab) 10 mg SuTuThSa@0800 PO 09/21/16 08:00 10/21/16 07:59 09/22/16 08:15 10 MG Polyethylene (Miralax Powder Packet) 17 gm MoWeFr@0400 PO 09/20/16 04:00 10/20/16 03:59 Polyethylene (Miralax Powder Packet) 17 gm SuTuThSa@0800 PO 09/21/16 08:00 10/21/16 07:59 09/22/16 08:17 17 GM Ferrous Sulfate 325 mg 325 mg DAILY PO 09/20/16 09:00 10/20/16 08:59 09/23/16 08:53 325 MG Piperacillin Sod/ Tazobactam Sod/ Dextrose (Zosyn Iv/D5 100ml) 115 ml @ 28.75 mls/ hr Q12@0400,1600 IV 09/20/16 16:00 09/30/16 03:59 09/23/16 04:39 28.75 MLS/HR Collagenase 1 appln 1 appln DAILY EXT 09/21/16 09:00 10/21/16 08:59 09/23/16 11:53 1 APPLN Acetaminophen/ Empty Bag (Ofirmev Iv/ Empty Iv Bag 100ml) 65 ml @ 260 mls/hr Q6H PRN IV 09/22/16 03:30 10/22/16 03:29 09/22/16 03:55 260 MLS/HR Oxycodone/ Acetaminophen (Percocet 5-325mg Tab) 1 tab Q6H PRN PO 09/22/16 03:30 10/06/16 03:29 09/23/16 15:48 1 TAB Bisacodyl (Dulcolax Tab) 5 mg DAILY PRN PO 09/22/16 11:45 10/22/16 11:44 09/22/16 13:32 5 MG Last 24 Hours Test 09/22/16 16:15 09/22/16 20:23 09/23/16 05:30 09/23/16 06:34 Bedside Glucose 325 mg/dl 174 mg/dl 120 mg/dl White Blood Count 20.68 K/uL Red Blood Count 4.00 M/uL Hemoglobin 11.8 g/dL Hematocrit 36.9 % Mean Corpuscular Volume 92.3 fL Mean Corpuscular Hemoglobin 29.5 pg Mean Corpuscular Hemoglobin Concent 32.0 g/dl RDW Standard Deviation 49.4 fL RDW Coefficient of Variation 14.5 % Platelet Count 260 K/uL Mean Platelet Volume 9.8 fL Sodium Level 130 mmol/L Potassium Level 5.1 mmol/L Chloride Level 92 mmol/L Carbon Dioxide Level 24 mmol/L Anion Gap 14.0 mmol/L Blood Urea Nitrogen 86 mg/dl Creatinine 6.70 mg/dl Est Creatinine Clear Calc Drug Dose 11.7 ml/min Estimated GFR () 9.7 Estimated GFR (Non- 8.3 BUN/Creatinine Ratio 12.8 Random Glucose 124 mg/dl Calcium Level 9.8 mg/dl Total Bilirubin 0.4 mg/dl Aspartate Amino Transf (AST/SGOT) 9 U/L Alanine Aminotransferase (ALT/SGPT) 12 U/L Alkaline Phosphatase 115 U/L C-Reactive Protein 19.80 mg/dl Total Protein 7.4 gm/dl Albumin 2.1 gm/dl Globulin 5.3 gm/dl Albumin/Globulin Ratio 0.4 Procalcitonin 4.38 ng/ml Test 09/23/16 11:26 Bedside Glucose 105 mg/dl Date/Time Source Procedure Growth Status 09/23/16 00:00 Joint Fluid/Space (Synovial) Knee Right Gram Stain Pending Received 09/23/16 00:00 Joint Fluid/Space (Synovial) Knee Right Bacterial Culture Pending Received Assessment & Plan ESRD-for dialysis today and will continue m-w- dialysis. volume status appears optimized Anemia of renal failure-hg in the 11s, dose procrit prn for goal of 10 to 11 hg
--- NOTE | 2016-09-23 20:43 | Progress Note ---
Medicine Progress Note Date & Time of Visit: September 23, 2016 at ~ 18:00 . Subjective More alert, less confused. Afebrile last 3 days. No cough or SOB. No chest pain. No nausea or vomiting. No diarrhea. Experiencing right knee pain. . Objective Last 8 Hrs Date Time Temp Pulse Resp B/P Pulse Ox O2 Delivery O2 Flow Rate FiO2 09/23/16 19:07 36.8 97 20 92/70 97 Room Air 09/23/16 16:30 Room Air 09/23/16 15:38 36.8 105 22 126/75 96 Nasal Cannula 2.0 09/23/16 13:15 Room Air Physical Exam: General- chronically ill, no acute distress Neck- neck veins difficult to assess Lungs- clear to auscultation Heart- RRR Thorax- dialysis catheter with right infrascapular exit site Abdomen- obese, + BS, soft, nontender Extremities- right knee bandaged; right leg bandaged; right foot warm; capillary refill right toes 2 sec; s/p left AKA Neuro- alert, more conversant . Laboratory Results: Last 24 Hours Test 09/23/16 05:30 09/23/16 06:34 09/23/16 11:26 09/23/16 16:12 White Blood Count 20.68 K/uL Red Blood Count 4.00 M/uL Hemoglobin 11.8 g/dL Hematocrit 36.9 % Mean Corpuscular Volume 92.3 fL Mean Corpuscular Hemoglobin 29.5 pg Mean Corpuscular Hemoglobin Concent 32.0 g/dl RDW Standard Deviation 49.4 fL RDW Coefficient of Variation 14.5 % Platelet Count 260 K/uL Mean Platelet Volume 9.8 fL Sodium Level 130 mmol/L Potassium Level 5.1 mmol/L Chloride Level 92 mmol/L Carbon Dioxide Level 24 mmol/L Anion Gap 14.0 mmol/L Blood Urea Nitrogen 86 mg/dl Creatinine 6.70 mg/dl Est Creatinine Clear Calc Drug Dose 11.7 ml/min Estimated GFR () 9.7 Estimated GFR (Non- 8.3 BUN/Creatinine Ratio 12.8 Random Glucose 124 mg/dl Calcium Level 9.8 mg/dl Total Bilirubin 0.4 mg/dl Aspartate Amino Transf (AST/SGOT) 9 U/L Alanine Aminotransferase (ALT/SGPT) 12 U/L Alkaline Phosphatase 115 U/L C-Reactive Protein 19.80 mg/dl Total Protein 7.4 gm/dl Albumin 2.1 gm/dl Globulin 5.3 gm/dl Albumin/Globulin Ratio 0.4 Procalcitonin 4.38 ng/ml Bedside Glucose 120 mg/dl 105 mg/dl 116 mg/dl Date/Time Source Procedure Growth Status 09/23/16 00:00 Joint Fluid/Space (Synovial) Knee Right Gram Stain Pending Received 09/23/16 00:00 Joint Fluid/Space (Synovial) Knee Right Bacterial Culture Pending Received Assessment & Plan SEPSIS Met criteria for sepsis per 2001 definition and current CMS guidelines. (reported fever, pulse greater than 90, leukocytosis, altered mental status) Hemodynamically stable in ED. Serum lactate was 0.9. Blood cultures obtained. Procalcitonin elevated @ 7.4 on 09/21/16. Source of infection at this time uncertain. Has been on IV vancomycin for recent MRSA line infection; also has history of discitis and wound infection. IV piperacillin / tazobactam added. Afebrile x 3 days. Blood cultures negative thus far. Today's labs: WBC 20,680 CRP 19.8 procalcitonin 4.38 (compared to 7.4 on 09/21) Transthoracic echo did not show any apparent valvular vegetations. Continue wound care right knee ulcer. ? imaging of spine- denies back pain ? change dialysis catheter- consult Vascular Surgery X-rays right knee did not show any apparent osteomyelitis, but did demonstrate moderate to large effusion. Ortho consulted. Arthrocentesis performed. Fluid appeared to be purulent- lab results pending. ID consulted and is following. ALTERED MENTAL STATUS Probable encephalopathy secondary to sepsis. Improved. CHRONIC LEFT VENTRICULAR SYSTOLIC HEART FAILURE LVEF 15-20%. Compensated. Follow exam, fluid status. No JOSE MARTIN or ARB due to CKD. Continue metoprolol succinate. Cardiology consulted. HYPERTENSION Continue metoprolol succinate. Follow and titrate Rx. CKD V Hemodialysis per Nephrology. DM TYPE 2 Fairly well-controlled. Hgb A1C = 6.3. FBS this morning = 120. Continue Lantus / NovoLog per protocol. CHRONIC WOUNDS Wounds right knee and right leg. Wound Care Nursing following. VTE PROPHYLAXIS SQ heparin. DISPOSITION Expected return to [facility] for skilled care. ADDENDUM: Sister given update by phone. . Current Inpatient Medications: Current Inpatient Medications Medications (Trade) Dose Ordered Sig/Edin Route Start Time Stop Time Status Last Admin Dose Admin Heparin Sodium (Porcine) (Heparin Sq 5000 Unit/0.5ml) 5,000 unit Q8 SQ 09/19/16 22:00 10/19/16 21:59 09/23/16 14:00 5,000 UNIT Acetaminophen (Tylenol Tab) 650 mg Q4H PRN PO 09/19/16 16:00 10/19/16 15:59 09/20/16 23:36 650 MG Ondansetron HCl (Zofran Inj) 4 mg Q6H PRN IV 09/19/16 16:00 10/19/16 15:59 Piperacillin Sod/ Tazobactam Sod (Consult) 1 ea UD PRN N/A 09/19/16 16:00 10/19/16 15:59 Insulin Aspart (novoLOG ASPART) SLIDING SCALE If C... ACHS SC 09/19/16 21:00 10/19/16 20:59 09/23/16 18:14 5 UNITS Glucose (Glucose 40% Gel) 15-30 GRAMS 15 GRAMS... UD PRN PO 09/19/16 16:15 10/19/16 16:14 Glucose (Glucose Chew Tab) 4-8 Tablets 4 Tabl... UD PRN PO 09/19/16 16:15 10/19/16 16:14 Dextrose (Dextrose 50% 50ML Syringe) 25-50ML OF 50% DW IV FOR... UD PRN IV 09/19/16 16:15 10/19/16 16:14 Glucagon (Glucagon Inj) 1 mg UD PRN SQ 09/19/16 16:15 10/19/16 16:14 Ascorbic Acid (Vitamin C Tab) 500 mg MoWeFr@0900 PO 09/20/16 09:00 10/20/16 08:59 09/23/16 08:53 500 MG Aspirin (Ecotrin Tab) 81 mg SuTuThSa@0900 PO 09/21/16 09:00 10/21/16 08:59 09/22/16 08:15 81 MG Atorvastatin Calcium (Lipitor Tab) 40 mg HS PO 09/19/16 21:00 10/19/16 20:59 09/22/16 21:27 40 MG Calcium Acetate (Phoslo Cap) 1,334 mg TIDM PO 09/20/16 07:30 10/20/16 07:29 09/23/16 18:15 1,334 MG Salmeterol Xinafoate/ Fluticasone (Advair Diskus 250/50 Inh) 1 puff BID INH 09/19/16 21:00 10/19/16 20:59 09/23/16 08:55 1 PUFF Gabapentin (Neurontin Cap) 300 mg Q8 PO 09/19/16 22:00 10/19/16 21:59 09/23/16 14:00 300 MG Insulin Glargine (Lantus Solostar Pen) 5 unit BID SC 09/19/16 21:00 10/19/16 20:59 09/23/16 08:56 5 UNIT Albuterol/ Ipratropium (Combivent Respimat Inh) 1 puffs QID INH 09/19/16 21:00 10/19/16 20:59 09/23/16 18:15 1 PUFFS Lactobacillus Acidophilus (Floranex Tab) 1 tab TID PO 09/19/16 21:00 10/19/16 20:59 09/23/16 14:00 1 TAB Loratadine (Claritin Tab) 10 mg MoWeFr@0400 PO 09/20/16 04:00 10/20/16 03:59 09/23/16 04:39 10 MG Lorazepam (Ativan Tab) 0.5 mg TID PO 09/19/16 21:00 10/19/16 20:59 09/23/16 08:51 0.5 MG Metoprolol Succinate (Toprol Xl Tab) 25 mg BID PO 09/19/16 21:00 10/19/16 20:59 09/23/16 08:55 25 MG Senna/Docusate Sodium (Senokot S Tab) 1 tab HS PO 09/19/16 21:00 10/19/16 20:59 09/22/16 21:28 1 TAB Cholecalciferol (Vitamin D Tab) 5,000 inter.unit DAILY PO 09/20/16 09:00 10/20/16 08:59 09/23/16 08:54 5,000 INTER.UNIT Dexamethasone (Decadron Tab) 2 mg DAILY PO 09/20/16 09:00 10/20/16 08:59 09/23/16 08:52 2 MG Pantoprazole Sodium (Protonix Tab) 40 mg SuTuThSa@0800 PO 09/21/16 08:00 10/21/16 07:59 09/22/16 08:15 40 MG Oxycodone HCl (Oxycontin Tab) 30 mg Q12 PO 09/19/16 21:00 10/19/16 20:59 09/23/16 08:51 30 MG Vancomycin HCl 1 ea 1 ea UD PRN N/A 09/19/16 18:00 10/19/16 17:59 Vancomycin HCl/ Sodium Chloride (Vancomycin Inj/ Nss 250ml) 270 ml @ 125 mls/hr MoWeFr@1600 IV 09/20/16 16:00 10/20/16 15:59 09/23/16 15:54 125 MLS/HR Loratadine (Claritin Tab) 10 mg SuTuThSa@0800 PO 09/21/16 08:00 10/21/16 07:59 09/22/16 08:15 10 MG Polyethylene (Miralax Powder Packet) 17 gm MoWeFr@0400 PO 09/20/16 04:00 10/20/16 03:59 Polyethylene (Miralax Powder Packet) 17 gm SuTuThSa@0800 PO 09/21/16 08:00 10/21/16 07:59 09/22/16 08:17 17 GM Ferrous Sulfate 325 mg 325 mg DAILY PO 09/20/16 09:00 10/20/16 08:59 09/23/16 08:53 325 MG Piperacillin Sod/ Tazobactam Sod/ Dextrose (Zosyn Iv/D5 100ml) 115 ml @ 28.75 mls/ hr Q12@0400,1600 IV 09/20/16 16:00 09/30/16 03:59 09/23/16 18:17 28.75 MLS/HR Collagenase 1 appln 1 appln DAILY EXT 09/21/16 09:00 10/21/16 08:59 09/23/16 11:53 1 APPLN Acetaminophen/ Empty Bag (Ofirmev Iv/ Empty Iv Bag 100ml) 65 ml @ 260 mls/hr Q6H PRN IV 09/22/16 03:30 10/22/16 03:29 09/22/16 03:55 260 MLS/HR Oxycodone/ Acetaminophen (Percocet 5-325mg Tab) 1 tab Q6H PRN PO 09/22/16 03:30 10/06/16 03:29 09/23/16 15:48 1 TAB Bisacodyl (Dulcolax Tab) 5 mg DAILY PRN PO 09/22/16 11:45 10/22/16 11:44 09/22/16 13:32 5 MG
[2016-09-23] MEDS: DOCUSATE SODIUM/SENNA 50/8.6MG TAB PO SCH (21:40)
[2016-09-23] MEDS: ATORVASTATIN 40 MG TAB PO SCH (21:41)
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
[2016-09-24] MEDS: PIPERACILL/TAZOBAC IV 3.375 GM in DEXTROSE 5% 100ML IV SCH ×2 (03:16→16:58)
[2016-09-24 04:00] VITALS: BP 113/83; PULSE 83; TEMP 36.6; O2SAT 97
[2016-09-24] MEDS: HEPARIN SOD 5000 UNIT/0.5 ML CARP SQ SCH ×3 (05:20→21:41)
[2016-09-24] MEDS: GABAPENTIN 300 MG CAP PO SCH ×3 (05:20→21:34)
[2016-09-24 05:29] LABS: BASO % 0.2 %; BASO ABS # 0.03 K/uL (0-0.2); COMPLETE YES; EOS % 0.2 %; HEMATOCRIT 34.8 % (42-52); IG% 0.5 %; LYMPH % 8.4 %; LYMPH ABS # 1.66 K/uL (1.2-3.4); MEAN CELL VOLUME 92.8 fL (80-100); MEAN CORPUSCULAR HEMOGLOBIN 29.3 pg (25-34); MEAN CORPUSCULAR HGB CONC 31.6 g/dl (32-36); MEAN PLATELET VOLUME 9.9 fL (7.4-10.4); MONO % 4.1 %; NEUT % 86.6 %; PLATELET COUNT 242 K/uL (130-400); RED BLOOD COUNT 3.75 M/uL (4.7-6.1); WHITE BLOOD COUNT 19.85 K/uL (4.8-10.8)
[2016-09-24 06:04] LABS: BUN/CREATININE RATIO 11.2 (10-20); CALCIUM 8.9 mg/dl (8.5-10.1); POTASSIUM 4.3 mmol/L (3.5-5.1)
--- NOTE | 2016-09-24 06:57 | Nephrology Progress Note ---
Nephrology Progress Note Date of Service: September 24, 2016. Subjective 56 yo male with esrd with chronic infection of knee with effusion, confusion, chronic blair, vascular disease, cardiomyopathy, hx of discitis last year in back, tunneled dialysis catheter. had dialysis yesterday. has a slow ooze from a heparin injection from subcutaneous abdomen. Objective Date Time Temp Pulse Resp B/P Pulse Ox O2 Delivery O2 Flow Rate FiO2 09/24/16 04:00 36.6 83 22 113/83 97 Nasal Cannula 2.0 09/24/16 04:00 Nasal Cannula 2.0 09/24/16 00:00 Nasal Cannula 2.0 09/23/16 23:53 36.6 104 22 125/93 96 Room Air 09/23/16 20:00 Nasal Cannula 2.0 09/23/16 19:07 36.8 97 20 92/70 97 Room Air 09/23/16 16:30 Room Air 09/23/16 15:38 36.8 105 22 126/75 96 Nasal Cannula 2.0 09/23/16 13:15 Room Air 09/23/16 11:55 37.0 106 15 123/26 94 Room Air 09/23/16 11:50 37.0 66 118/56 09/23/16 11:30 49 91/52 09/23/16 11:15 57 123/36 09/23/16 11:00 50 102/50 09/23/16 10:45 58 112/57 09/23/16 10:30 54 94/53 09/23/16 10:15 68 92/45 09/23/16 10:00 78 123/57 09/23/16 09:45 100 124/68 09/23/16 09:30 Room Air 09/23/16 09:30 104 117/61 09/23/16 09:15 78 121/53 09/23/16 09:00 90 114/55 09/23/16 08:40 92 113/69 09/23/16 08:30 37.1 94 106/63 09/23/16 08:08 37.0 95 18 95/86 92 Room Air Physical Exam: General-aaox2, confused Eyes-no scleral icterus ENT-mmm Neck-supple Lungs-clear Heart-regular Abdomen-bs+ s/nt/nd Extremities-right knee infection, left aka Neuro-confused -chronic blair, urine dark Current Inpatient Medications Medications (Trade) Dose Ordered Sig/Edin Route Start Time Stop Time Status Last Admin Dose Admin Heparin Sodium (Porcine) (Heparin Sq 5000 Unit/0.5ml) 5,000 unit Q8 SQ 09/19/16 22:00 10/19/16 21:59 09/24/16 05:20 5,000 UNIT Acetaminophen (Tylenol Tab) 650 mg Q4H PRN PO 09/19/16 16:00 10/19/16 15:59 09/20/16 23:36 650 MG Ondansetron HCl (Zofran Inj) 4 mg Q6H PRN IV 09/19/16 16:00 10/19/16 15:59 Piperacillin Sod/ Tazobactam Sod (Consult) 1 ea UD PRN N/A 09/19/16 16:00 10/19/16 15:59 Insulin Aspart (novoLOG ASPART) SLIDING SCALE If C... ACHS SC 09/19/16 21:00 10/19/16 20:59 09/23/16 21:43 1 UNITS Glucose (Glucose 40% Gel) 15-30 GRAMS 15 GRAMS... UD PRN PO 09/19/16 16:15 10/19/16 16:14 Glucose (Glucose Chew Tab) 4-8 Tablets 4 Tabl... UD PRN PO 09/19/16 16:15 10/19/16 16:14 Dextrose (Dextrose 50% 50ML Syringe) 25-50ML OF 50% DW IV FOR... UD PRN IV 09/19/16 16:15 10/19/16 16:14 Glucagon (Glucagon Inj) 1 mg UD PRN SQ 09/19/16 16:15 10/19/16 16:14 Ascorbic Acid (Vitamin C Tab) 500 mg MoWeFr@0900 PO 09/20/16 09:00 10/20/16 08:59 09/23/16 08:53 500 MG Aspirin (Ecotrin Tab) 81 mg SuTuThSa@0900 PO 09/21/16 09:00 10/21/16 08:59 09/22/16 08:15 81 MG Atorvastatin Calcium (Lipitor Tab) 40 mg HS PO 09/19/16 21:00 10/19/16 20:59 09/23/16 21:41 40 MG Calcium Acetate (Phoslo Cap) 1,334 mg TIDM PO 09/20/16 07:30 10/20/16 07:29 09/23/16 18:15 1,334 MG Salmeterol Xinafoate/ Fluticasone (Advair Diskus 250/50 Inh) 1 puff BID INH 09/19/16 21:00 10/19/16 20:59 09/23/16 21:40 1 PUFF Gabapentin (Neurontin Cap) 300 mg Q8 PO 09/19/16 22:00 10/19/16 21:59 09/24/16 05:20 300 MG Insulin Glargine (Lantus Solostar Pen) 5 unit BID SC 09/19/16 21:00 10/19/16 20:59 09/23/16 21:44 5 UNIT Albuterol/ Ipratropium (Combivent Respimat Inh) 1 puffs QID INH 09/19/16 21:00 10/19/16 20:59 09/23/16 21:40 1 PUFFS Lactobacillus Acidophilus (Floranex Tab) 1 tab TID PO 09/19/16 21:00 10/19/16 20:59 09/23/16 21:39 1 TAB Loratadine (Claritin Tab) 10 mg MoWeFr@0400 PO 09/20/16 04:00 10/20/16 03:59 09/23/16 04:39 10 MG Lorazepam (Ativan Tab) 0.5 mg TID PO 09/19/16 21:00 10/19/16 20:59 09/23/16 21:39 0.5 MG Metoprolol Succinate (Toprol Xl Tab) 25 mg BID PO 09/19/16 21:00 10/19/16 20:59 09/23/16 08:55 25 MG Senna/Docusate Sodium (Senokot S Tab) 1 tab HS PO 09/19/16 21:00 10/19/16 20:59 09/22/16 21:28 1 TAB Cholecalciferol (Vitamin D Tab) 5,000 inter.unit DAILY PO 09/20/16 09:00 10/20/16 08:59 09/23/16 08:54 5,000 INTER.UNIT Dexamethasone (Decadron Tab) 2 mg DAILY PO 09/20/16 09:00 10/20/16 08:59 09/23/16 08:52 2 MG Pantoprazole Sodium (Protonix Tab) 40 mg SuTuThSa@0800 PO 09/21/16 08:00 10/21/16 07:59 09/22/16 08:15 40 MG Oxycodone HCl (Oxycontin Tab) 30 mg Q12 PO 09/19/16 21:00 10/19/16 20:59 09/23/16 21:39 30 MG Vancomycin HCl 1 ea 1 ea UD PRN N/A 09/19/16 18:00 10/19/16 17:59 Vancomycin HCl/ Sodium Chloride (Vancomycin Inj/ Nss 250ml) 270 ml @ 125 mls/hr MoWeFr@1600 IV 09/20/16 16:00 10/20/16 15:59 09/23/16 15:54 125 MLS/HR Loratadine (Claritin Tab) 10 mg SuTuThSa@0800 PO 09/21/16 08:00 10/21/16 07:59 09/22/16 08:15 10 MG Polyethylene (Miralax Powder Packet) 17 gm MoWeFr@0400 PO 09/20/16 04:00 10/20/16 03:59 Polyethylene (Miralax Powder Packet) 17 gm SuTuThSa@0800 PO 09/21/16 08:00 10/21/16 07:59 09/22/16 08:17 17 GM Ferrous Sulfate 325 mg 325 mg DAILY PO 09/20/16 09:00 10/20/16 08:59 09/23/16 08:53 325 MG Piperacillin Sod/ Tazobactam Sod/ Dextrose (Zosyn Iv/D5 100ml) 115 ml @ 28.75 mls/ hr Q12@0400,1600 IV 09/20/16 16:00 09/30/16 03:59 09/24/16 03:16 28.75 MLS/HR Collagenase 1 appln 1 appln DAILY EXT 09/21/16 09:00 10/21/16 08:59 09/23/16 11:53 1 APPLN Acetaminophen/ Empty Bag (Ofirmev Iv/ Empty Iv Bag 100ml) 65 ml @ 260 mls/hr Q6H PRN IV 09/22/16 03:30 10/22/16 03:29 09/22/16 03:55 260 MLS/HR Oxycodone/ Acetaminophen (Percocet 5-325mg Tab) 1 tab Q6H PRN PO 09/22/16 03:30 10/06/16 03:29 09/23/16 22:33 1 TAB Bisacodyl (Dulcolax Tab) 5 mg DAILY PRN PO 09/22/16 11:45 10/22/16 11:44 09/22/16 13:32 5 MG Last 24 Hours Test 09/23/16 11:26 09/23/16 16:12 09/23/16 20:34 09/24/16 05:10 Bedside Glucose 105 mg/dl 116 mg/dl 161 mg/dl White Blood Count 19.85 K/uL Red Blood Count 3.75 M/uL Hemoglobin 11.0 g/dL Hematocrit 34.8 % Mean Corpuscular Volume 92.8 fL Mean Corpuscular Hemoglobin 29.3 pg Mean Corpuscular Hemoglobin Concent 31.6 g/dl Platelet Count 242 K/uL Mean Platelet Volume 9.9 fL Neutrophils (%) (Auto) 86.6 % Lymphocytes (%) (Auto) 8.4 % Monocytes (%) (Auto) 4.1 % Eosinophils (%) (Auto) 0.2 % Basophils (%) (Auto) 0.2 % Neutrophils # (Auto) 17.23 K/uL Lymphocytes # (Auto) 1.66 K/uL Monocytes # (Auto) 0.81 K/uL Eosinophils # (Auto) 0.03 K/uL Basophils # (Auto) 0.03 K/uL RDW Standard Deviation 49.2 fL RDW Coefficient of Variation 14.4 % Immature Granulocyte % (Auto) 0.5 % Immature Granulocyte # (Auto) 0.09 K/uL Sodium Level 132 mmol/L Potassium Level 4.3 mmol/L Chloride Level 95 mmol/L Carbon Dioxide Level 27 mmol/L Anion Gap 10.0 mmol/L Blood Urea Nitrogen 56 mg/dl Creatinine 5.00 mg/dl Est Creatinine Clear Calc Drug Dose 15.4 ml/min Estimated GFR () 13.8 Estimated GFR (Non- 11.9 BUN/Creatinine Ratio 11.2 Random Glucose 119 mg/dl Calcium Level 8.9 mg/dl Assessment & Plan ESRD-volume status is good, continue dialysis m-w-. no dialysis indicated today. Anemia of renal failure-hg in the 11s, dose procrit prn for goal of 10 to 11 hg , on oral iron ANNA-on phoslo and will check phos levels intermittently with a goal phos of less than 5.5.
[2016-09-24] MEDS: DEXAMETHASONE 1 MG TAB PO SCH (07:38)
[2016-09-24] MEDS: FERROUS SULFATE 325 MG TAB PO SCH (07:38)
[2016-09-24] MEDS: CHOLECALCIFEROL 1000 INTER.UNIT TAB PO SCH (07:38)
[2016-09-24] MEDS: LACTOBACILLUS ACIDOPHILUS (FLORANEX) TAB PO SCH ×3 (07:39→21:34)
[2016-09-24] MEDS: CALCIUM ACETATE 667MG GELCAP PO SCH ×3 (07:39→16:55)
[2016-09-24] MEDS: METOPROLOL SUCC 25MG EXT REL TAB PO SCH ×2 (07:39→21:34)
[2016-09-24] MEDS: ASPIRIN 81 MG ECTAB PO SCH (07:39)
[2016-09-24] MEDS: LORATADINE 10 MG TAB PO SCH (07:39)
[2016-09-24] MEDS: PANTOprazole SOD 40 MG TAB PO SCH (07:40)
[2016-09-24] MEDS: FLUTICASONE/SALMETEROL 250/50 (ADVAIR) 14 PUFF/1 INHALER INH SCH ×2 (07:41→21:35)
[2016-09-24] MEDS: IPRATROPIUM BROMIDE/ALBUTEROL respimat INH INH SCH ×4 (07:41→21:46)
[2016-09-24] MEDS: LORAZEPAM 0.5 MG TAB PO SCH ×3 (07:45→21:37)
[2016-09-24] MEDS: POLYETHYLENE (MIRALAX) 17 GM PACK PO SCH (07:46)
[2016-09-24] MEDS: OXYCODONE HCL 10 MG TABCR (OXYCONTIN) PO SCH ×2 (07:46→21:35)
[2016-09-24] MEDS: INSULIN ASPART 100 UNITS/ML 3 ML PEN SC SCH ×4 (07:52→21:42)
[2016-09-24] MEDS: COLLAGENASE OINT 30 GM TUBE EXT SCH (07:53)
[2016-09-24] MEDS: INSULIN GLARGINE SOLOSTAR 100 UNITS/ML 3 ML PEN SC SCH ×2 (07:53→21:43)
[2016-09-24 07:57] VITALS: BP 114/91; PULSE 94; TEMP 36.9; O2SAT 93
--- NOTE | 2016-09-24 08:46 | Progress Note ---
Internal Med Progress Note Date of Service: September 24, 2016. Provider Documentation: SUBJECTIVE: Patient is seen and examined at bedside. States feeling better. Right knee pain improving. Denies any chest pain, SOB, abd pain, nausea. He is upset about getting recurrent infections. OBJECTIVE: Vital Signs-as noted below Physical Exam: General Appearance:Chronically ill appearing, no apparent distress Head: normocephalic, Atraumatic Eyes: normal inspection, EOMI, PERRL Neck: supple, Trachea midline Respiratory/Chest: Normal breath sounds, CTA Cardiovascular: S1, S2, No murmur Abdomen/GI:Soft, Non tender, Bowel sounds present Extremities/Musculoskelatal:Left AKA, Right knee and leg in bandage, no edema Neurologic/Psych:AAOX3, grossly no focal neurological deficits Skin: normal color, warm Lab data as noted below. ASSESSMENT & PLAN: SEPSIS Likely Source of infection: Right knee S/P R knee Arthrocentesis Patient is on IV vancomycin for recent MRSA line infection; Has H/O discitis and wound infection. Blood cultures: No growth to date Right knee wound culture: Gram negative bacilli Continue Vanco and Zosyn ID and Orthopedics following Echo: No apparent valvular vegetations. Continue wound care right knee ulcer. X-ray R knee: No signs of osteomyelitis ALTERED MENTAL STATUS Likely metabolic encephalopathy secondary to sepsis. Seemed to have resolved CHRONIC LEFT VENTRICULAR SYSTOLIC HEART FAILURE LVEF 15-20%. Compensated. No JOSE MARTIN or ARB due to CKD. Continue metoprolol Cardiology on board HYPERTENSION Continue metoprolol succinate. Monitor . CKD V Hemodialysis per Nephrology. Nephrology on board DM II Hgb A1C: 6.3. Continue Lantus / NovoLog per protocol. CHRONIC WOUNDS Wounds right knee and right leg. Continue Wound Care DVT Px SQ heparin. DISPOSITION Plan to discharge to [facility] when medically cleared PROCEDURES: ECHO: * Limited views were obtained. * There is no evidence of a mass or vegetation. This does not rule out endocarditis. * -- Conclusions -- * Left ventricular systolic function is severely reduced. * Ejection Fraction = 15-20%. * There is severe global hypokinesis of the left ventricle. Vital Signs: Date Time Temp Pulse Resp B/P Pulse Ox O2 Delivery O2 Flow Rate FiO2 09/24/16 07:57 36.9 94 18 114/91 93 Nasal Cannula 2.0 09/24/16 04:00 36.6 83 22 113/83 97 Nasal Cannula 2.0 09/24/16 04:00 Nasal Cannula 2.0 09/24/16 00:00 Nasal Cannula 2.0 09/23/16 23:53 36.6 104 22 125/93 96 Room Air 09/23/16 20:00 Nasal Cannula 2.0 09/23/16 19:07 36.8 97 20 92/70 97 Room Air 09/23/16 16:30 Room Air 09/23/16 15:38 36.8 105 22 126/75 96 Nasal Cannula 2.0 09/23/16 13:15 Room Air 09/23/16 11:55 37.0 106 15 123/26 94 Room Air 09/23/16 11:50 37.0 66 118/56 09/23/16 11:30 49 91/52 09/23/16 11:15 57 123/36 09/23/16 11:00 50 102/50 09/23/16 10:45 58 112/57 09/23/16 10:30 54 94/53 09/23/16 10:15 68 92/45 09/23/16 10:00 78 123/57 09/23/16 09:45 100 124/68 09/23/16 09:30 Room Air 09/23/16 09:30 104 117/61 09/23/16 09:15 78 121/53 09/23/16 09:00 90 114/55 09/23/16 08:40 92 113/69 09/23/16 08:30 37.1 94 106/63 Lab Results: Results Past 24 Hours Test 09/23/16 11:26 09/23/16 16:12 09/23/16 20:34 09/24/16 05:10 Range/Units Bedside Glucose 105 116 161 70-99 mg/dl White Blood Count 19.85 4.8-10.8 K/uL Red Blood Count 3.75 4.7-6.1 M/uL Hemoglobin 11.0 14.0-18.0 g/dL Hematocrit 34.8 42-52 % Mean Corpuscular Volume 92.8 80-100 fL Mean Corpuscular Hemoglobin 29.3 25-34 pg Mean Corpuscular Hemoglobin Concent 31.6 32-36 g/dl Platelet Count 242 130-400 K/uL Mean Platelet Volume 9.9 7.4-10.4 fL Neutrophils (%) (Auto) 86.6 % Lymphocytes (%) (Auto) 8.4 % Monocytes (%) (Auto) 4.1 % Eosinophils (%) (Auto) 0.2 % Basophils (%) (Auto) 0.2 % Neutrophils # (Auto) 17.23 1.4-6.5 K/uL Lymphocytes # (Auto) 1.66 1.2-3.4 K/uL Monocytes # (Auto) 0.81 0.11-0.59 K/uL Eosinophils # (Auto) 0.03 0-0.5 K/uL Basophils # (Auto) 0.03 0-0.2 K/uL RDW Standard Deviation 49.2 36.4-46.3 fL RDW Coefficient of Variation 14.4 11.5-14.5 % Immature Granulocyte % (Auto) 0.5 % Immature Granulocyte # (Auto) 0.09 0.00-0.02 K/uL Sodium Level 132 136-145 mmol/L Potassium Level 4.3 3.5-5.1 mmol/L Chloride Level 95 98-107 mmol/L Carbon Dioxide Level 27 21-32 mmol/L Anion Gap 10.0 3-11 mmol/L Blood Urea Nitrogen 56 7-18 mg/dl Creatinine 5.00 0.60-1.40 mg/dl Est Creatinine Clear Calc Drug Dose 15.4 ml/min Estimated GFR () 13.8 Estimated GFR (Non- 11.9 BUN/Creatinine Ratio 11.2 10-20 Random Glucose 119 70-99 mg/dl Calcium Level 8.9 8.5-10.1 mg/dl Test 09/24/16 06:54 09/24/16 06:55 Range/Units Bedside Glucose 130 70-99 mg/dl
[2016-09-24] MEDS: OXYCODONE/ACETAMINOPHEN 5-325 TAB PO PRN ×2 (10:06→16:57)
[2016-09-24 12:02] VITALS: BP 97/79; PULSE 91; TEMP 37; O2SAT 97
--- NOTE | 2016-09-24 13:11 | CONSULTATION REPORT ---
DATE OF CONSULTATION: 09/24/2016 The patient is a 56-year-old male who presents to the hospital with a sepsis infection to his right foot, right knee, with necrotic skin on the anterior aspect of his knee, measuring approximately 4 x 4 cm, the lateral most necrotic area at approximately 2 x 2 cm on the medial most area. He does have pain and tenderness to touch. He has had a previous left [id number] amputation with severe diabetes. He presents with sepsis. He is currently being treated for sepsis and is going to have a vascular evaluation as well for determination of possible amputation. At this point, I am not certain any type of anterior knee exposure, given the patient's flexion contracture and wound, is a viable option. We will await vascular evaluation and follow along.
[2016-09-24 13:27] VITALS: Ht 165.1 cm; Wt 69.1 kg
--- NOTE | 2016-09-24 14:15 | Infectious Disease Progress Nt ---
Progress Note Date of Service September 24, 2016. Subjective Pt evaluation today including: conversation w/ patient, physical exam, chart review, lab review, review of studies, conversation w/ leasing sales consultant, review of inpatient medication list Patient states and right knee pain has slightly improved. Remains afebrile. Aspirate from the growing Gram-negative bacilli, suspect this is previously identified Pseudomonas. Orthopedic consultation noted. All Other Systems: Reviewed and Negative Medications Current Inpatient Medications Medications (Trade) Dose Ordered Sig/Edin Route Start Time Stop Time Status Last Admin Dose Admin Heparin Sodium (Porcine) (Heparin Sq 5000 Unit/0.5ml) 5,000 unit Q8 SQ 09/19/16 22:00 10/19/16 21:59 09/24/16 05:20 5,000 UNIT Acetaminophen (Tylenol Tab) 650 mg Q4H PRN PO 09/19/16 16:00 10/19/16 15:59 09/20/16 23:36 650 MG Ondansetron HCl (Zofran Inj) 4 mg Q6H PRN IV 09/19/16 16:00 10/19/16 15:59 Piperacillin Sod/ Tazobactam Sod (Consult) 1 ea UD PRN N/A 09/19/16 16:00 10/19/16 15:59 Insulin Aspart (novoLOG ASPART) SLIDING SCALE If C... ACHS SC 09/19/16 21:00 10/19/16 20:59 09/24/16 12:01 14 UNITS Glucose (Glucose 40% Gel) 15-30 GRAMS 15 GRAMS... UD PRN PO 09/19/16 16:15 10/19/16 16:14 Glucose (Glucose Chew Tab) 4-8 Tablets 4 Tabl... UD PRN PO 09/19/16 16:15 10/19/16 16:14 Dextrose (Dextrose 50% 50ML Syringe) 25-50ML OF 50% DW IV FOR... UD PRN IV 09/19/16 16:15 10/19/16 16:14 Glucagon (Glucagon Inj) 1 mg UD PRN SQ 09/19/16 16:15 10/19/16 16:14 Ascorbic Acid (Vitamin C Tab) 500 mg MoWeFr@0900 PO 09/20/16 09:00 10/20/16 08:59 09/23/16 08:53 500 MG Aspirin (Ecotrin Tab) 81 mg SuTuThSa@0900 PO 09/21/16 09:00 10/21/16 08:59 09/24/16 07:39 81 MG Atorvastatin Calcium (Lipitor Tab) 40 mg HS PO 09/19/16 21:00 10/19/16 20:59 09/23/16 21:41 40 MG Calcium Acetate (Phoslo Cap) 1,334 mg TIDM PO 09/20/16 07:30 10/20/16 07:29 09/24/16 12:02 1,334 MG Salmeterol Xinafoate/ Fluticasone (Advair Diskus 250/50 Inh) 1 puff BID INH 09/19/16 21:00 10/19/16 20:59 09/24/16 07:41 1 PUFF Gabapentin (Neurontin Cap) 300 mg Q8 PO 09/19/16 22:00 10/19/16 21:59 09/24/16 05:20 300 MG Insulin Glargine (Lantus Solostar Pen) 5 unit BID SC 09/19/16 21:00 10/19/16 20:59 09/24/16 07:53 5 UNIT Albuterol/ Ipratropium (Combivent Respimat Inh) 1 puffs QID INH 09/19/16 21:00 10/19/16 20:59 09/24/16 07:41 1 PUFFS Lactobacillus Acidophilus (Floranex Tab) 1 tab TID PO 09/19/16 21:00 10/19/16 20:59 09/24/16 07:39 1 TAB Loratadine (Claritin Tab) 10 mg MoWeFr@0400 PO 09/20/16 04:00 10/20/16 03:59 09/23/16 04:39 10 MG Lorazepam (Ativan Tab) 0.5 mg TID PO 09/19/16 21:00 10/19/16 20:59 09/24/16 07:45 0.5 MG Metoprolol Succinate (Toprol Xl Tab) 25 mg BID PO 09/19/16 21:00 10/19/16 20:59 09/24/16 07:39 25 MG Senna/Docusate Sodium (Senokot S Tab) 1 tab HS PO 09/19/16 21:00 10/19/16 20:59 5/7/17 21:28 1 TAB Cholecalciferol (Vitamin D Tab) 5,000 inter.unit DAILY PO 09/20/16 09:00 10/20/16 08:59 09/24/16 07:38 5,000 INTER.UNIT Dexamethasone (Decadron Tab) 2 mg DAILY PO 09/20/16 09:00 10/20/16 08:59 09/24/16 07:38 2 MG Pantoprazole Sodium (Protonix Tab) 40 mg SuTuThSa@0800 PO 09/21/16 08:00 10/21/16 07:59 09/24/16 07:40 40 MG Oxycodone HCl (Oxycontin Tab) 30 mg Q12 PO 09/19/16 21:00 10/19/16 20:59 09/24/16 07:46 30 MG Vancomycin HCl 1 ea 1 ea UD PRN N/A 09/19/16 18:00 10/19/16 17:59 Vancomycin HCl/ Sodium Chloride (Vancomycin Inj/ Nss 250ml) 270 ml @ 125 mls/hr MoWeFr@1600 IV 09/20/16 16:00 10/20/16 15:59 09/23/16 15:54 125 MLS/HR Loratadine (Claritin Tab) 10 mg SuTuThSa@0800 PO 09/21/16 08:00 10/21/16 07:59 09/24/16 07:39 10 MG Polyethylene (Miralax Powder Packet) 17 gm MoWeFr@0400 PO 09/20/16 04:00 10/20/16 03:59 Polyethylene (Miralax Powder Packet) 17 gm SuTuThSa@0800 PO 09/21/16 08:00 10/21/16 07:59 09/22/16 08:17 17 GM Ferrous Sulfate 325 mg 325 mg DAILY PO 09/20/16 09:00 10/20/16 08:59 09/24/16 07:38 325 MG Piperacillin Sod/ Tazobactam Sod/ Dextrose (Zosyn Iv/D5 100ml) 115 ml @ 28.75 mls/ hr Q12@0400,1600 IV 09/20/16 16:00 09/30/16 03:59 09/24/16 03:16 28.75 MLS/HR Collagenase 1 appln 1 appln DAILY EXT 09/21/16 09:00 10/21/16 08:59 09/24/16 07:53 1 APPLN Acetaminophen/ Empty Bag (Ofirmev Iv/ Empty Iv Bag 100ml) 65 ml @ 260 mls/hr Q6H PRN IV 09/22/16 03:30 10/22/16 03:29 09/22/16 03:55 260 MLS/HR Oxycodone/ Acetaminophen (Percocet 5-325mg Tab) 1 tab Q6H PRN PO 09/22/16 03:30 10/06/16 03:29 09/24/16 10:06 1 TAB Bisacodyl (Dulcolax Tab) 5 mg DAILY PRN PO 09/22/16 11:45 10/22/16 11:44 09/22/16 13:32 5 MG Objective Vital Signs Date Time Temp Pulse Resp B/P Pulse Ox O2 Delivery O2 Flow Rate FiO2 09/24/16 12:02 37.0 91 18 97/79 97 Nasal Cannula 09/24/16 12:00 Room Air 09/24/16 08:00 Room Air 09/24/16 07:57 36.9 94 18 114/91 93 Nasal Cannula 2.0 09/24/16 04:00 36.6 83 22 113/83 97 Nasal Cannula 2.0 09/24/16 04:00 Nasal Cannula 2.0 09/24/16 00:00 Nasal Cannula 2.0 09/23/16 23:53 36.6 104 22 125/93 96 Room Air 09/23/16 20:00 Nasal Cannula 2.0 09/23/16 19:07 36.8 97 20 92/70 97 Room Air 09/23/16 16:30 Room Air 09/23/16 15:38 36.8 105 22 126/75 96 Nasal Cannula 2.0 Physical Exam General Appearance: no apparent distress, + pertinent finding (Chronically ill- appearing) Eyes: normal inspection, sclerae normal ENT: normal ENT inspection, pharynx normal Neck: supple, no adenopathy, trachea midline Respiratory/Chest: lungs clear, normal breath sounds, no respiratory distress Cardiovascular: regular rate, rhythm, no gallop, no murmur Abdomen: normal bowel sounds, non tender, soft, no organomegaly Extremities: + inflammation (Right knee), + slow capillary refill Neurologic/Psychiatric: alert, oriented x 3 Skin: normal color, + pertinent finding (Slight decrease in right knee erythema ) Lymphatic: no adenopathy Laboratory Results RUN DATE: 09/24/16 [facility] PAGE 1 RUN TIME: 816 Specimen Inquiry PATIENT: YOUNG HINKLE LOC: [facility] # : [id number] AGE/SX: 56/M ROOM: [facility] REG : 09/19/[address]: Beto Smith MD : 1960 BED: 1 DIS : STATUS: ADM IN TLOC: SPEC #: [id number] CLAUDIA: 09/23/16-UNK STATUS: RES REQ #: [id number] RECD: 09/23/16-15[address] [facility] DR: Melody Cha, P.A. SOURCE: JOINT FLSP ENTR: 09/23/16-[address]: Prince Monk MD SPDES: KNEE RIGHT Dominic Amezcua M.D. Coppes, John C., M.D. Haroon, Salman A., Aleta Levi, Melody Fontana , Uriel Geller I., Stanley Nance, [facility] HospitalGeeta ellisontany ORDERED: JNT FL/SP CU/SM Procedure Result Verified Site GRAM STAIN Final 09/24/16-816 RESULT MANY POLYS FEW GRAM NEGATIVE BACILLI Phoned results to [facility] on 09/24/16 at 0813 by Cuca Michele. Results were verbalized back to REYES. JOINT FLUID/SPACE CULTURE Preliminary 09/24/16-751 Organism 1 GRAM NEGATIVE BACILLI QUANITY MODERATE SENS SENSITIVITY TO FOLLOW Last 24 Hours Test 09/23/16 16:12 09/23/16 20:34 09/24/16 05:10 09/24/16 06:54 Bedside Glucose 116 mg/dl 161 mg/dl 130 mg/dl White Blood Count 19.85 K/uL Red Blood Count 3.75 M/uL Hemoglobin 11.0 g/dL Hematocrit 34.8 % Mean Corpuscular Volume 92.8 fL Mean Corpuscular Hemoglobin 29.3 pg Mean Corpuscular Hemoglobin Concent 31.6 g/dl Platelet Count 242 K/uL Mean Platelet Volume 9.9 fL Neutrophils (%) (Auto) 86.6 % Lymphocytes (%) (Auto) 8.4 % Monocytes (%) (Auto) 4.1 % Eosinophils (%) (Auto) 0.2 % Basophils (%) (Auto) 0.2 % Neutrophils # (Auto) 17.23 K/uL Lymphocytes # (Auto) 1.66 K/uL Monocytes # (Auto) 0.81 K/uL Eosinophils # (Auto) 0.03 K/uL Basophils # (Auto) 0.03 K/uL RDW Standard Deviation 49.2 fL RDW Coefficient of Variation 14.4 % Immature Granulocyte % (Auto) 0.5 % Immature Granulocyte # (Auto) 0.09 K/uL Sodium Level 132 mmol/L Potassium Level 4.3 mmol/L Chloride Level 95 mmol/L Carbon Dioxide Level 27 mmol/L Anion Gap 10.0 mmol/L Blood Urea Nitrogen 56 mg/dl Creatinine 5.00 mg/dl Est Creatinine Clear Calc Drug Dose 15.4 ml/min Estimated GFR () 13.8 Estimated GFR (Non- 11.9 BUN/Creatinine Ratio 11.2 Random Glucose 119 mg/dl Calcium Level 8.9 mg/dl Phosphorus Level 5.0 mg/dl Test 09/24/16 11:09 Bedside Glucose 377 mg/dl Assessment and Plan 56-year-old male with end-stage renal disease on dialysis with longstanding diabetes, now with sepsis and encephalopathy from persistent right knee infection with gram-negative bacilli, likely Pseudomonas aeruginosa. Patient should continue on IV Zosyn pending final identification and sensitivity. Will discuss further management with all involved.
[2016-09-24 15:50] VITALS: BP 108/80; PULSE 92; TEMP 36.7; O2SAT 99
--- NOTE | 2016-09-24 15:56 | Medical Consult ---
Consultation Note Date of Service September 24, 2016. Consultation Note Chief Complaint RLE knee wound infection, hx RLE fem-PT trunk BPG History of Present Illness 56 yo m with multiple medical problems, known to Dr Bermudez for PAD and RLE fem- PT trunk BPG and LLE AKA, seen today during admission for sepsis and R knee wound infection. Pt admitted with fever, leukocytosis, altered mental status. Has been seeing Wound Clinic for past few months regarding his R knee wound. Imaging demonstrates large knee effusion and possible gas. Aspiration cx demonstrate gram neg bacilli. Blood cx neg. Pt states he was advised at that his wound is improving. Pt denies GROSSMAN, chills, chest pain, SOB, abd pain, N /V, rest pain, other complaints. Not currently ambulatory, but has been working with PT at [facility]. Allergies Coded Allergies: Daptomycin (Verified Allergy, Severe, WATER ON LUNGS, 08/19/16) pt stated this allergy is "lethal" for him POLLEN (Verified Allergy, Unknown, 08/19/16) Ciprofloxacin (Verified Adverse Reaction, Intermediate, NAUSEA AND DIARHHEA, 08/19/16) Home Medications Scheduled Ascorbic Acid (Vitamin C), 500 MG PO DAILY Aspirin (Aspirin Ec), 81 MG PO DAILY Atorvastatin (Atorvastatin Calcium), 40 MG PO HS Calcium Acetate (Phosphate Bin (Phoslo 667 Mg), 2 CAPSULES PO WM Calcium Alginate (Bulk) (Calcium Alginate), 1 APPLN DAILY AND PRN Cholecalciferol (Vitamin D3), 5,000 UNIT PO DAILY Dexamethasone (Dexamethasone), 2 MG PO DAILY Ferrous Sulfate (Kp Ferrous Sulfate), 1 TAB PO DAILY Fluticasone Prop/Salmeterol (Advair Diskus 250/50 60 Dose), 1 PUFFS INH BID Gabapentin (Neurontin), 200 MG PO Q8 Insulin Aspart (Novolog), SC ACHS Insulin Glargine (Lantus), 5 UNITS SC AMPM Ipratropium-Albuterol (Combivent Respimat), 1 PUFFS INH QID Lactobacillus Acidophilus (Lactinex), 1 TAB PO TID Loratadine (Claritin), 10 MG PO DAILY Lorazepam (Ativan), 0.5 MG PO TID Metoprolol Succ (Toprol Xl) (Toprol-Xl), 25 MG PO BID Omeprazole (Prilosec), 20 MG PO 4XWK Oxycodone Hcl (Oxycontin), 30 MG PO Q8 Polyethylene Glycol 3350 (Miralax), 17 GM PO DAILY Senna/Docusate Sod (Senokot S), 1 TAB PO HS Vancomycin Hcl In Dextrose (Vancomycin Hcl In Dextros), 1 GM IV 3XWK [liquid protein], 30 ML PO DAILY Scheduled PRN Acetaminophen Tab (Tylenol), 650 MG PO Q6 PRN for PAIN RATED 1-5 Oxycodone Ir (Roxicodone Ir), 10 MG PO UD PRN for prior to dialysis Oxygen (Oxygen), 3 LITERS NA PRN PRN for Shortness of Breath Problem List Medical Problems: (1) Acute on chronic renal failure (2) Anemia (3) Arterial occlusion (4) Cardiomyopathy (5) CHF (congestive heart failure) (6) CKD (chronic kidney disease), stage III (7) Coronary artery disease (8) DM type 2 (diabetes mellitus, type 2) (9) Fever (10) HTN (hypertension) (11) Hyperlipidemia (12) Hypoxia (13) Infected permcath (14) Obesity (15) Osteomyelitis (16) PAD (peripheral artery disease) (17) PVD (peripheral vascular disease) (18) Unresponsiveness Surgical Problems: (1) ICD (implantable cardioverter-defibrillator), single, in situ (2) S/P AKA (above knee amputation) (3) S/P femoral-popliteal bypass surgery (4) Toe amputation status Surgical / Medical History Hx Cardiac Surgery: Yes (ICD AND PACER) Hx Abdominal Surgery: No Hx Cancer Surgery: No Hx Thoracic Surgery: No Hx Orthopedic: Yes (LT AKA, RT FORTH TOE AMPUTATED) Hx Urinary Tract Surgery: No HX Other Surgery: No Past Medical/Surgical History: CHF, Diabetes, Heart Disease, High Cholesterol, Hypertension, Kidney Disease Family History Coronary artery disease MOTHER FH: atrial fibrillation FATHER FH: cancer FATHER Hypertension SISTER Valvular heart disease FATHER Social History Smoking Status: Former Smoker Hx Tobacco Use In Past Year?: No Hx Alcohol Use - Type & Amnt: No Hx Substance Use -Type & Amnt: No ROS: Vascular Con v2 Review of Systems Constitutional: + malaise, No chills, No fever Skin: + change in color Eyes: No visual changes ENMT: No sore throat Respiratory: No HOOVER, No cough, No hemoptysis, No short of breath Cardiovascular: No chest pain, No edema, No intermittent claudication, No palpitations, No syncope Gastrointestinal: No abdominal pain, No nausea, No vomiting Neurologic: No dizziness, No headache, No lethargy, No numbness, No tingling Exam: Vascular Con v2 Physical Exam Constitutional: General Apperance: well-nourished, well-developed, obese Level of Distress: NAD, acutely ill, chronically ill Psychiatric: Mental Status: active & alert, normal mood, normal affect Orientation: oriented except where noted, to time, to place, to person Memory: recent memory abnormal, remote memory abnormal Head: normocephalic, atraumatic Eyes: EOM: EOMI ENMT: normal ENT inspection, hearing grossly normal Neck: supple, trachea midline Lungs: Respiratory effort: no dyspnea Auscultation: no rales/crackles, no rhonchi, decreased breath sounds Cardiovascular: Apical Impulse: not displaced Heart Auscultation: RRR, no rubs, no gallops Peripheral Pulses: Pulses: full and equal, in all extremities except if noted Bruits: none appreciated Carotid Pulse: normal on the left, normal on the right Brachial Pulses: normal on the left, normal on the right Radial Pulse: normal on the left, normal on the right Femoral Pulse: normal on the left, normal on the right Popliteal Pulse: absent on the left Posterior Tibialis Pulse: absent on the left, doppler (RLE) Dorsalis Pedis Pulse: absent on the left, doppler (RLE) Abdomen: Bowel Sounds: normal Inspection & Palpation: soft, non-distended, no tenderness, guarding & rebound Musculoskeletal: normal strength (5/5 throughout), normal tone Extremities: Upper Right: no cyanosis, no edema, no varicosities Upper Left: no cyanosis, no edema, no varicosities Lower Right: pertinent finding R knee with open wounds and eschar with slough and mild erythema noted. Slight odor. + knee effusion, warmth, tenderness. Lower Left: no cyanosis, no edema, no varicosities, pertinent finding (s/p AKA, well healed) Neurologic: Cranial Nerves: grossly intact Sensation: grossly intact A&P: Vascular Con v2 Assessment and Plan ASSESSMENT and PLAN: RLE knee wound infection Hx RLE fem-PT trunk bypass Pt discussed with Dr Bermudez, and recs from orthopedics and cardiology reviewed. Pt with RLE contraction, nonambulatory d/t generalized weakness and LLE AKA. Pt high cardiac risk for any surgical procedure. Recommend RLE AKA. This was discussed with pt and his mother. He will consider it. Procedure can be performed afternoon or friday. Will discuss with pt again tomorrow.
[2016-09-24 19:43] VITALS: BP 120/93; PULSE 85; TEMP 36.8; O2SAT 98
[2016-09-24] MEDS: ATORVASTATIN 40 MG TAB PO SCH (21:34)
[2016-09-24] MEDS: DOCUSATE SODIUM/SENNA 50/8.6MG TAB PO SCH (21:34)
[2016-09-24 23:48] VITALS: BP 116/80; PULSE 77; TEMP 37.3; O2SAT 98
[2016-09-25] VITALS (22 sets, daily range): BP systolic 83–183; BP diastolic 33–100; PULSE 76–104; TEMP 36.7–37.7; O2SAT 97–100
[2016-09-25] MEDS: PIPERACILL/TAZOBAC IV 3.375 GM in DEXTROSE 5% 100ML IV SCH ×2 (04:28→16:05)
[2016-09-25] MEDS: POLYETHYLENE (MIRALAX) 17 GM PACK PO SCH (05:01)
[2016-09-25] MEDS: LORATADINE 10 MG TAB PO SCH (05:01)
[2016-09-25] MEDS: GABAPENTIN 300 MG CAP PO SCH ×3 (05:24→21:28)
[2016-09-25] MEDS: HEPARIN SOD 5000 UNIT/0.5 ML CARP SQ SCH ×3 (05:24→21:32)
[2016-09-25 06:21] LABS: BASO % 0.2 %; BASO ABS # 0.03 K/uL (0-0.2); COMPLETE YES; EOS % 0.4 %; HEMATOCRIT 36.2 % (42-52); IG% 0.8 %; LYMPH % 5.4 %; LYMPH ABS # 0.85 K/uL (1.2-3.4); MEAN CELL VOLUME 92.3 fL (80-100); MEAN CORPUSCULAR HEMOGLOBIN 28.8 pg (25-34); MEAN CORPUSCULAR HGB CONC 31.2 g/dl (32-36); MEAN PLATELET VOLUME 9.9 fL (7.4-10.4); MONO % 9.5 %; NEUT % 83.7 %; PLATELET COUNT 266 K/uL (130-400); RED BLOOD COUNT 3.92 M/uL (4.7-6.1); WHITE BLOOD COUNT 15.84 K/uL (4.8-10.8)
[2016-09-25 07:36] LABS: CALCIUM 9.4 mg/dl (8.5-10.1); CREATININE 6.2 mg/dl (0.60-1.40); POTASSIUM 4.7 mmol/L (3.5-5.1)
[2016-09-25] MEDS ORDERED: HEPARIN SOD (PORCINE) 1000 UNIT/ML 10 ML VIAL IV SCH (08:00)
[2016-09-25] MEDS: OXYCODONE/ACETAMINOPHEN 5-325 TAB PO PRN ×2 (08:34→14:44)
[2016-09-25] MEDS: LORAZEPAM 0.5 MG TAB PO SCH ×3 (08:34→21:35)
[2016-09-25] MEDS: DEXAMETHASONE 1 MG TAB PO SCH (08:34)
[2016-09-25] MEDS: OXYCODONE HCL 10 MG TABCR (OXYCONTIN) PO SCH ×2 (08:34→21:36)
[2016-09-25] MEDS: LACTOBACILLUS ACIDOPHILUS (FLORANEX) TAB PO SCH ×3 (08:34→21:29)
[2016-09-25] MEDS: FERROUS SULFATE 325 MG TAB PO SCH (08:35)
[2016-09-25] MEDS: ASCORBIC ACID 500 MG TAB PO SCH (08:35)
[2016-09-25] MEDS: CALCIUM ACETATE 667MG GELCAP PO SCH ×3 (08:36→17:03)
[2016-09-25] MEDS: CHOLECALCIFEROL 1000 INTER.UNIT TAB PO SCH (08:36)
[2016-09-25] MEDS: METOPROLOL SUCC 25MG EXT REL TAB PO SCH ×2 (08:37→21:28)
[2016-09-25] MEDS: IPRATROPIUM BROMIDE/ALBUTEROL respimat INH INH SCH ×4 (08:38→21:27)
[2016-09-25] MEDS: FLUTICASONE/SALMETEROL 250/50 (ADVAIR) 14 PUFF/1 INHALER INH SCH ×2 (08:38→21:27)
--- NOTE | 2016-09-25 08:41 | Progress Note ---
Internal Med Progress Note Date of Service: September 25, 2016. Provider Documentation: SUBJECTIVE: Patient is seen and examined at bedside. Complains of Right knee pain intermittently. Denies any chest pain, SOB, abd pain, nausea. No other complaints. OBJECTIVE: Vital Signs-as noted below Physical Exam: General Appearance:Chronically ill appearing, no apparent distress Head: normocephalic, Atraumatic Eyes: normal inspection, EOMI, PERRL Neck: supple, Trachea midline Respiratory/Chest: Normal breath sounds, CTA Cardiovascular: S1, S2, No murmur Abdomen/GI:Soft, Non tender, Bowel sounds present Extremities/Musculoskelatal:Left AKA, Right knee and leg in bandage, no edema, erythema Neurologic/Psych:AAOX3, grossly no focal neurological deficits Skin: normal color, warm Lab data as noted below. ASSESSMENT & PLAN: SEPSIS Secondary to Right knee infection: S/P R knee Arthrocentesis Patient is on IV vancomycin for recent MRSA line infection; Has H/O discitis and wound infection. Blood cultures: No growth to date Right knee wound culture: Proteus mirabilis Continue Vanco and Zosyn ID, Orthopedics, Vascular following:Appreciate help Echo: No apparent valvular vegetations. Continue wound care right knee ulcer. X-ray R knee: No signs of osteomyelitis Leukocytosis improving RLE AKA recommended by Vascular Surgery Patient would like to get R AKA as recommended ALTERED MENTAL STATUS Likely metabolic encephalopathy secondary to sepsis. Resolved CHRONIC LEFT VENTRICULAR SYSTOLIC HEART FAILURE LVEF 15-20%. Compensated. No JOSE MARTIN or ARB due to CKD. Continue metoprolol Cardiology on board HYPERTENSION Continue metoprolol succinate. Monitor . CKD V Hemodialysis per Nephrology. Nephrology on board MWF schedule DM II Hgb A1C: 6.3. Continue Lantus, ISS CHRONIC WOUNDS Wounds right knee and right leg. Continue Wound Care DVT Px SQ heparin. DISPOSITION Plan to discharge to [facility] when medically cleared PROCEDURES: ECHO: * Limited views were obtained. * There is no evidence of a mass or vegetation. This does not rule out endocarditis. * -- Conclusions -- * Left ventricular systolic function is severely reduced. * Ejection Fraction = 15-20%. * There is severe global hypokinesis of the left ventricle. Vital Signs: Date Time Temp Pulse Resp B/P Pulse Ox O2 Delivery O2 Flow Rate FiO2 09/25/16 08:39 36.9 91 15 130/84 97 Room Air Nasal Cannula 09/25/16 04:00 Nasal Cannula 2.0 09/25/16 03:30 36.7 85 17 125/92 97 Room Air 09/24/16 23:59 Nasal Cannula 2.0 09/24/16 23:48 37.3 77 15 116/80 98 Nasal Cannula 2.0 09/24/16 20:00 Room Air 09/24/16 19:43 36.8 85 19 120/93 98 Nasal Cannula 2.0 09/24/16 16:00 Room Air 09/24/16 15:50 36.7 92 20 108/80 99 09/24/16 12:02 37.0 91 18 97/79 97 Nasal Cannula 09/24/16 12:00 Room Air Lab Results: Results Past 24 Hours Test 09/24/16 11:09 09/24/16 16:15 09/24/16 20:19 09/25/16 05:52 Range/Units Bedside Glucose 377 172 162 70-99 mg/dl White Blood Count 15.84 4.8-10.8 K/uL Red Blood Count 3.92 4.7-6.1 M/uL Hemoglobin 11.3 14.0-18.0 g/dL Hematocrit 36.2 42-52 % Mean Corpuscular Volume 92.3 80-100 fL Mean Corpuscular Hemoglobin 28.8 25-34 pg Mean Corpuscular Hemoglobin Concent 31.2 32-36 g/dl Platelet Count 266 130-400 K/uL Mean Platelet Volume 9.9 7.4-10.4 fL Neutrophils (%) (Auto) 83.7 % Lymphocytes (%) (Auto) 5.4 % Monocytes (%) (Auto) 9.5 % Eosinophils (%) (Auto) 0.4 % Basophils (%) (Auto) 0.2 % Neutrophils # (Auto) 13.28 1.4-6.5 K/uL Lymphocytes # (Auto) 0.85 1.2-3.4 K/uL Monocytes # (Auto) 1.50 0.11-0.59 K/uL Eosinophils # (Auto) 0.06 0-0.5 K/uL Basophils # (Auto) 0.03 0-0.2 K/uL RDW Standard Deviation 48.7 36.4-46.3 fL RDW Coefficient of Variation 14.4 11.5-14.5 % Immature Granulocyte % (Auto) 0.8 % Immature Granulocyte # (Auto) 0.12 0.00-0.02 K/uL Sodium Level 132 136-145 mmol/L Potassium Level 4.7 3.5-5.1 mmol/L Chloride Level 94 98-107 mmol/L Carbon Dioxide Level 26 21-32 mmol/L Anion Gap 12.0 3-11 mmol/L Blood Urea Nitrogen 75 7-18 mg/dl Creatinine 6.20 0.60-1.40 mg/dl Est Creatinine Clear Calc Drug Dose 12.7 ml/min Estimated GFR () 10.6 Estimated GFR (Non- 9.2 BUN/Creatinine Ratio 12.0 10-20 Random Glucose 125 70-99 mg/dl Calcium Level 9.4 8.5-10.1 mg/dl Random Vancomycin Level 33.3 mcg/ml Test 09/25/16 06:34 Range/Units Bedside Glucose 142 70-99 mg/dl
[2016-09-25] MEDS: INSULIN GLARGINE SOLOSTAR 100 UNITS/ML 3 ML PEN SC SCH ×2 (08:42→21:32)
[2016-09-25] MEDS: INSULIN ASPART 100 UNITS/ML 3 ML PEN SC SCH ×4 (08:42→21:00)
[2016-09-25] MEDS: COLLAGENASE OINT 30 GM TUBE EXT SCH (08:42)
--- NOTE | 2016-09-25 09:34 | Pharmacy Progress Note ---
Pharmacy Abx Dose Progress Nt Date of Service September 25, 2016. Pharmacy Dosing Scope The patient is currently receiving the following antimicrobial agents per Pharmacy consult: -Vancomycin 1000 mg IV on MWF after HD -Zosyn 3.375g IV every 12 hours Objective Height (Feet): 5 Height (Inches): 5.00 Weight (Kilograms): 78.000 Vital Signs (Past 12Hrs) Vital Signs Past 12 Hours Date Time Temp Pulse Resp B/P Pulse Ox O2 Delivery O2 Flow Rate FiO2 09/25/16 08:39 36.9 91 15 130/84 97 Room Air Nasal Cannula 09/25/16 04:00 Nasal Cannula 2.0 09/25/16 03:30 36.7 85 17 125/92 97 Room Air 09/24/16 23:59 Nasal Cannula 2.0 09/24/16 23:48 37.3 77 15 116/80 98 Nasal Cannula 2.0 Lab Results (24Hrs) Test 09/24/16 20:19 09/25/16 05:52 09/25/16 06:34 Bedside Glucose 162 mg/dl (70-99) 142 mg/dl (70-99) White Blood Count 15.84 K/uL (4.8-10.8) Red Blood Count 3.92 M/uL (4.7-6.1) Hemoglobin 11.3 g/dL (14.0-18.0) Hematocrit 36.2 % (42-52) Mean Corpuscular Volume 92.3 fL (80-100) Mean Corpuscular Hemoglobin 28.8 pg (25-34) Mean Corpuscular Hemoglobin Concent 31.2 g/dl (32-36) Platelet Count 266 K/uL (130-400) Mean Platelet Volume 9.9 fL (7.4-10.4) Neutrophils (%) (Auto) 83.7 % Lymphocytes (%) (Auto) 5.4 % Monocytes (%) (Auto) 9.5 % Eosinophils (%) (Auto) 0.4 % Basophils (%) (Auto) 0.2 % Neutrophils # (Auto) 13.28 K/uL (1.4-6.5) Lymphocytes # (Auto) 0.85 K/uL (1.2-3.4) Monocytes # (Auto) 1.50 K/uL (0.11-0.59) Eosinophils # (Auto) 0.06 K/uL (0-0.5) Basophils # (Auto) 0.03 K/uL (0-0.2) RDW Standard Deviation 48.7 fL (36.4-46.3) RDW Coefficient of Variation 14.4 % (11.5-14.5) Immature Granulocyte % (Auto) 0.8 % Immature Granulocyte # (Auto) 0.12 K/uL (0.00-0.02) Sodium Level 132 mmol/L (136-145) Potassium Level 4.7 mmol/L (3.5-5.1) Chloride Level 94 mmol/L (98-107) Carbon Dioxide Level 26 mmol/L (21-32) Anion Gap 12.0 mmol/L (3-11) Blood Urea Nitrogen 75 mg/dl (7-18) Creatinine 6.20 mg/dl (0.60-1.40) Est Creatinine Clear Calc Drug Dose 12.7 ml/min Estimated GFR () 10.6 Estimated GFR (Non- 9.2 BUN/Creatinine Ratio 12.0 (10-20) Random Glucose 125 mg/dl (70-99) Calcium Level 9.4 mg/dl (8.5-10.1) Random Vancomycin Level 33.3 mcg/ml Micro Results Date/Time Source Procedure Growth Status 09/19/16 14:46 Blood Blood Culture - Final NO GROWTH Complete 09/19/16 14:28 Blood Blood Culture - Final NO GROWTH Complete 09/23/16 00:00 Joint Fluid/Space (Synovial) Knee Right Gram Stain - Final Resulted 09/23/16 00:00 Bacterial Culture - Preliminary Proteus Mirabilis Resulted Assessment & Plan Assessment 56 year old male receiving Vancomycin and Zosyn for treatment of sepsis secondary to UTI. Patient on vancomycin IV indefinitely for calf wound, h/o of discitis. Also with recent MRSA bacteremia. Day # 7 of antimicrobial therapy this admission (patient on Vanc as an outpatient) Plan Vancomycin IV * Random level of 33.3 mcg/mL today is supratherapeutic. Hold Vancomycin IV until next random level. * Last dose of Vancomycin IV administered on 5/8 pm after HD * Patient continues on HD * Goal trough level for MRSA bacteremia : 15 to 20 mcg/mL * Random level ordered for: 09/27/16 (pre-HD level) Piperacillin/tazobactam * Continue 3.375 g IV extended infusion every 12 hours for CrCl 20 mL/min or less. * h/o Pseudomonas in ulcer (resistant to imipenem) Pharmacy will continue to follow and will adjust dose/frequency as necessary. Thank you.
[2016-09-25] MEDS: HEPARIN SOD (PORCINE) 1000 UNIT/ML 10 ML VIAL IV SCH ×2 (12:30→13:30)
--- NOTE | 2016-09-25 12:48 | Infectious Disease Progress Nt ---
Progress Note Date of Service September 25, 2016. Subjective Pt evaluation today including: conversation w/ patient, physical exam, chart review, lab review, review of studies, conversation w/ communication consultant, review of inpatient medication list Vascular surgery consultation reviewed, AKA being considered. Right knee pain slightly better. Remains afebrile. Culture has grown Proteus. All Other Systems: Reviewed and Negative Medications Current Inpatient Medications Medications (Trade) Dose Ordered Sig/Edin Route Start Time Stop Time Status Last Admin Dose Admin Heparin Sodium (Porcine) (Heparin Sq 5000 Unit/0.5ml) 5,000 unit Q8 SQ 09/19/16 22:00 10/19/16 21:59 09/25/16 05:24 5,000 UNIT Acetaminophen (Tylenol Tab) 650 mg Q4H PRN PO 09/19/16 16:00 10/19/16 15:59 09/20/16 23:36 650 MG Ondansetron HCl (Zofran Inj) 4 mg Q6H PRN IV 09/19/16 16:00 10/19/16 15:59 Piperacillin Sod/ Tazobactam Sod (Consult) 1 ea UD PRN N/A 09/19/16 16:00 10/19/16 15:59 Insulin Aspart (novoLOG ASPART) SLIDING SCALE If C... ACHS SC 09/19/16 21:00 10/19/16 20:59 09/25/16 08:42 4 UNITS Glucose (Glucose 40% Gel) 15-30 GRAMS 15 GRAMS... UD PRN PO 09/19/16 16:15 10/19/16 16:14 Glucose (Glucose Chew Tab) 4-8 Tablets 4 Tabl... UD PRN PO 09/19/16 16:15 10/19/16 16:14 Dextrose (Dextrose 50% 50ML Syringe) 25-50ML OF 50% DW IV FOR... UD PRN IV 09/19/16 16:15 10/19/16 16:14 Glucagon (Glucagon Inj) 1 mg UD PRN SQ 09/19/16 16:15 10/19/16 16:14 Ascorbic Acid (Vitamin C Tab) 500 mg MoWeFr@0900 PO 09/20/16 09:00 10/20/16 08:59 09/25/16 08:35 500 MG Aspirin (Ecotrin Tab) 81 mg SuTuThSa@0900 PO 09/21/16 09:00 10/21/16 08:59 09/24/16 07:39 81 MG Atorvastatin Calcium (Lipitor Tab) 40 mg HS PO 09/19/16 21:00 10/19/16 20:59 09/24/16 21:34 40 MG Calcium Acetate (Phoslo Cap) 1,334 mg TIDM PO 09/20/16 07:30 10/20/16 07:29 09/25/16 08:36 1,334 MG Salmeterol Xinafoate/ Fluticasone (Advair Diskus 250/50 Inh) 1 puff BID INH 09/19/16 21:00 10/19/16 20:59 09/25/16 08:38 1 PUFF Gabapentin (Neurontin Cap) 300 mg Q8 PO 09/19/16 22:00 10/19/16 21:59 09/25/16 05:24 300 MG Insulin Glargine (Lantus Solostar Pen) 5 unit BID SC 09/19/16 21:00 10/19/16 20:59 09/25/16 08:42 5 UNIT Albuterol/ Ipratropium (Combivent Respimat Inh) 1 puffs QID INH 09/19/16 21:00 10/19/16 20:59 09/25/16 08:38 1 PUFFS Lactobacillus Acidophilus (Floranex Tab) 1 tab TID PO 09/19/16 21:00 10/19/16 20:59 09/25/16 08:34 1 TAB Loratadine (Claritin Tab) 10 mg MoWeFr@0400 PO 09/20/16 04:00 10/20/16 03:59 09/25/16 05:01 10 MG Lorazepam (Ativan Tab) 0.5 mg TID PO 09/19/16 21:00 10/19/16 20:59 09/25/16 08:34 0.5 MG Metoprolol Succinate (Toprol Xl Tab) 25 mg BID PO 09/19/16 21:00 10/19/16 20:59 09/25/16 08:37 25 MG Senna/Docusate Sodium (Senokot S Tab) 1 tab HS PO 09/19/16 21:00 10/19/16 20:59 09/24/16 21:34 1 TAB Cholecalciferol (Vitamin D Tab) 5,000 inter.unit DAILY PO 09/20/16 09:00 10/20/16 08:59 09/25/16 08:36 5,000 INTER.UNIT Dexamethasone (Decadron Tab) 2 mg DAILY PO 09/20/16 09:00 10/20/16 08:59 09/25/16 08:34 2 MG Pantoprazole Sodium (Protonix Tab) 40 mg SuTuThSa@0800 PO 09/21/16 08:00 10/21/16 07:59 09/24/16 07:40 40 MG Oxycodone HCl (Oxycontin Tab) 30 mg Q12 PO 09/19/16 21:00 10/19/16 20:59 09/25/16 08:34 30 MG Vancomycin HCl (Consult) 1 ea UD PRN N/A 09/19/16 18:00 10/19/16 17:59 Loratadine (Claritin Tab) 10 mg SuTuThSa@0800 PO 09/21/16 08:00 10/21/16 07:59 09/24/16 07:39 10 MG Polyethylene (Miralax Powder Packet) 17 gm MoWeFr@0400 PO 09/20/16 04:00 10/20/16 03:59 09/25/16 05:01 17 GM Polyethylene (Miralax Powder Packet) 17 gm SuTuThSa@0800 PO 09/21/16 08:00 10/21/16 07:59 09/22/16 08:17 17 GM Ferrous Sulfate 325 mg 325 mg DAILY PO 09/20/16 09:00 10/20/16 08:59 09/25/16 08:35 325 MG Piperacillin Sod/ Tazobactam Sod/ Dextrose (Zosyn Iv/D5 100ml) 115 ml @ 28.75 mls/ hr Q12@0400,1600 IV 09/20/16 16:00 09/30/16 03:59 09/25/16 04:28 28.75 MLS/HR Collagenase 1 appln 1 appln DAILY EXT 09/21/16 09:00 10/21/16 08:59 09/25/16 08:42 1 APPLN Acetaminophen/ Empty Bag (Ofirmev Iv/ Empty Iv Bag 100ml) 65 ml @ 260 mls/hr Q6H PRN IV 09/22/16 03:30 10/22/16 03:29 09/22/16 03:55 260 MLS/HR Oxycodone/ Acetaminophen (Percocet 5-325mg Tab) 1 tab Q6H PRN PO 09/22/16 03:30 10/06/16 03:29 09/25/16 08:34 1 TAB Bisacodyl (Dulcolax Tab) 5 mg DAILY PRN PO 09/22/16 11:45 10/22/16 11:44 09/22/16 13:32 5 MG Heparin Sodium (Porcine) (Heparin Iv Bolus) 1,000 unit TODAY@0800 IV 09/25/16 08:00 09/25/16 23:59 Heparin Sodium (Porcine) (Heparin Iv Bolus) 400 unit TODAY@0800,0900,1000 IV 09/25/16 08:00 09/25/16 23:59 Objective Vital Signs Date Time Temp Pulse Resp B/P Pulse Ox O2 Delivery O2 Flow Rate FiO2 09/25/16 11:39 37.7 76 116/82 09/25/16 08:39 36.9 91 15 130/84 97 Room Air Nasal Cannula 09/25/16 08:00 Room Air 09/25/16 04:00 Nasal Cannula 2.0 09/25/16 03:30 36.7 85 17 125/92 97 Room Air 09/24/16 23:59 Nasal Cannula 2.0 09/24/16 23:48 37.3 77 15 116/80 98 Nasal Cannula 2.0 09/24/16 20:00 Room Air 09/24/16 19:43 36.8 85 19 120/93 98 Nasal Cannula 2.0 09/24/16 16:00 Room Air 09/24/16 15:50 36.7 92 20 108/80 99 Physical Exam General Appearance: no apparent distress, + pertinent finding (chronically ill- appearing) Eyes: normal inspection, sclerae normal ENT: normal ENT inspection, pharynx normal Neck: supple, trachea midline Respiratory/Chest: lungs clear, normal breath sounds, no respiratory distress Cardiovascular: regular rate, rhythm, no gallop, no murmur Abdomen: normal bowel sounds, non tender, soft, no organomegaly Extremities: + slow capillary refill, + pertinent finding (left AKA) Neurologic/Psychiatric: alert, oriented x 3 Skin: normal color, no rash, + pertinent finding (right knee open wound, erythema) Lymphatic: no adenopathy Laboratory Results RUN DATE: 09/25/16 [facility] LAB PAGE 1 RUN TIME: 917 Specimen Inquiry PATIENT: YOUNG HINKLE LOC: [facility] U # : [id number] AGE/SX: 56/M ROOM: [facility] REG : 09/19/[address]: Beto Smith MD : 1960 BED: 1 DIS : STATUS: ADM IN TLOC: SPEC #: [id number] CLAUDIA: 09/23/16-UNK STATUS: COMP REQ #: [id number] RECD: 09/23/16-1523 [facility] DR: Melody Cha, P.A. SOURCE: JOINT FLSP ENTR: 09/23/16-1516 [facility] DR: Prince Monk MD [facility]: KNEE RIGHT Dominic Amezcua M.D. Coppes, John C., M.D. Haroon, Salman A., Aleta Levi, Melody Fontana , Uriel Geller I., Stanley Nance, Delmi Avila ORDERED: [place] FL/SP CU/SM Procedure Result Verified Site GRAM STAIN Final 09/24/16-816 RESULT MANY POLYS FEW GRAM NEGATIVE BACILLI Phoned results to [facility] on 09/24/16 at 0813 by Cuca Michele. Results were verbalized back to REYES. JOINT FLUID/SPACE CULTURE Final 09/25/16-917 Organism 1 PROTEUS MIRABILIS QUANITY MODERATE SENS SENSITIVITY TO FOLLOW 1. PROTEUS MIRABILIS Target Route Dose RX AB Cost M.I.C. IQ ------ ----- ------ -- ------ -------- - ------ TRIMET/SULFA R >2/38 AMPICILLIN S <=8 AMPICILLIN/SUL S <=8/4 CEFAZOLIN S <=8 CEFOTAXIME S <=2 CEFTRIAXONE S <=1 CEFEPIME S <=4 CEFUROXIME S <=4 GENTAMICIN S <=4 TOBRAMYCIN S <=4 AMIKACIN S <=16 CIPROFLOXACIN R >2 LEVOFLOXACIN S <=2 ERTAPENEM S <=1 PIP/TAZO S <=16 CONTINUED ON NEXT PAGE RUN DATE: 09/25/16 [facility] LAB PAGE 2 RUN TIME: 917 Specimen Inquiry SPEC: [id number] PATIENT: YOUNG HINKLE Laurence [id number] ( Continued) Procedure Result Verified Site JOINT FLUID/SPACE CULTURE Final (continued) S = SENSITIVE I = INTERMEDIATE R = RESISTANT Last 24 Hours Test 09/24/16 16:15 09/24/16 20:19 09/25/16 05:52 09/25/16 06:34 Bedside Glucose 172 mg/dl 162 mg/dl 142 mg/dl White Blood Count 15.84 K/uL Red Blood Count 3.92 M/uL Hemoglobin 11.3 g/dL Hematocrit 36.2 % Mean Corpuscular Volume 92.3 fL Mean Corpuscular Hemoglobin 28.8 pg Mean Corpuscular Hemoglobin Concent 31.2 g/dl Platelet Count 266 K/uL Mean Platelet Volume 9.9 fL Neutrophils (%) (Auto) 83.7 % Lymphocytes (%) (Auto) 5.4 % Monocytes (%) (Auto) 9.5 % Eosinophils (%) (Auto) 0.4 % Basophils (%) (Auto) 0.2 % Neutrophils # (Auto) 13.28 K/uL Lymphocytes # (Auto) 0.85 K/uL Monocytes # (Auto) 1.50 K/uL Eosinophils # (Auto) 0.06 K/uL Basophils # (Auto) 0.03 K/uL RDW Standard Deviation 48.7 fL RDW Coefficient of Variation 14.4 % Immature Granulocyte % (Auto) 0.8 % Immature Granulocyte # (Auto) 0.12 K/uL Sodium Level 132 mmol/L Potassium Level 4.7 mmol/L Chloride Level 94 mmol/L Carbon Dioxide Level 26 mmol/L Anion Gap 12.0 mmol/L Blood Urea Nitrogen 75 mg/dl Creatinine 6.20 mg/dl Est Creatinine Clear Calc Drug Dose 12.7 ml/min Estimated GFR () 10.6 Estimated GFR (Non- 9.2 BUN/Creatinine Ratio 12.0 Random Glucose 125 mg/dl Calcium Level 9.4 mg/dl Random Vancomycin Level 33.3 mcg/ml Test 09/25/16 10:57 Bedside Glucose 187 mg/dl Assessment and Plan 56-year-old male with end-stage renal disease on dialysis with longstanding diabetes, now with sepsis and encephalopathy from persistent right knee infection with Proteus. Patient to continue Zosyn pending surgical intervention. Will follow.
--- NOTE | 2016-09-25 13:51 | Progress Note ---
Progress Note Date of Service September 25, 2016. Progress Note Attempted to discuss above knee amputation with pt, he remains undecided and appears somewhat lethargic and confused while on HD presently. Cx growing proteus. Will discuss with pt further tomorrow.
--- NOTE | 2016-09-25 17:17 | Nephrology Progress Note ---
Nephrology Progress Note Date of Service: September 25, 2016. Subjective c/o intermittent R knee / prox leg ; no dyspnea, no n/v; no edema; needs amputation but pt struggling to decide/reluctant; seen on rounds this am 1040 Objective Date Time Temp Pulse Resp B/P Pulse Ox O2 Delivery O2 Flow Rate FiO2 09/25/16 16:07 36.8 103 23 97/66 99 Nasal Cannula 2.0 09/25/16 14:30 102 105/49 09/25/16 14:15 100 100/45 09/25/16 14:00 101 114/58 09/25/16 13:45 96 92/44 09/25/16 13:37 104 105/59 09/25/16 13:30 100 83/47 09/25/16 13:15 98 88/33 09/25/16 13:00 104 93/49 09/25/16 12:45 100 140/100 09/25/16 12:30 94 183/87 09/25/16 12:15 83 123/67 09/25/16 12:00 94 105/66 09/25/16 12:00 Room Air 09/25/16 11:46 92 112/89 09/25/16 11:39 37.7 76 116/82 09/25/16 08:39 36.9 91 15 130/84 97 Room Air Nasal Cannula 09/25/16 08:00 Room Air 09/25/16 04:00 Nasal Cannula 2.0 09/25/16 03:30 36.7 85 17 125/92 97 Room Air 09/24/16 23:59 Nasal Cannula 2.0 09/24/16 23:48 37.3 77 15 116/80 98 Nasal Cannula 2.0 09/24/16 20:00 Room Air 09/24/16 19:43 36.8 85 19 120/93 98 Nasal Cannula 2.0 Physical Exam: General-aaox3 but lethargic, answers appropriately Eyes-no scleral icterus ENT-mmm Neck-supple Lungs-clear Heart-regular in 90s Abdomen-bs+ s/nt/nd Extremities-right knee infection, left aka Neuro-confused -chronic blair, soem yellow urine Current Inpatient Medications Medications (Trade) Dose Ordered Sig/Edin Route Start Time Stop Time Status Last Admin Dose Admin Heparin Sodium (Porcine) (Heparin Sq 5000 Unit/0.5ml) 5,000 unit Q8 SQ 09/19/16 22:00 10/19/16 21:59 09/25/16 14:19 5,000 UNIT Acetaminophen (Tylenol Tab) 650 mg Q4H PRN PO 09/19/16 16:00 10/19/16 15:59 09/20/16 23:36 650 MG Ondansetron HCl (Zofran Inj) 4 mg Q6H PRN IV 09/19/16 16:00 10/19/16 15:59 Piperacillin Sod/ Tazobactam Sod (Consult) 1 ea UD PRN N/A 09/19/16 16:00 10/19/16 15:59 Insulin Aspart (novoLOG ASPART) SLIDING SCALE If C... ACHS SC 09/19/16 21:00 10/19/16 20:59 09/25/16 17:05 7 UNITS Glucose (Glucose 40% Gel) 15-30 GRAMS 15 GRAMS... UD PRN PO 09/19/16 16:15 10/19/16 16:14 Glucose (Glucose Chew Tab) 4-8 Tablets 4 Tabl... UD PRN PO 09/19/16 16:15 10/19/16 16:14 Dextrose (Dextrose 50% 50ML Syringe) 25-50ML OF 50% DW IV FOR... UD PRN IV 09/19/16 16:15 10/19/16 16:14 Glucagon (Glucagon Inj) 1 mg UD PRN SQ 09/19/16 16:15 10/19/16 16:14 Ascorbic Acid (Vitamin C Tab) 500 mg MoWeFr@0900 PO 09/20/16 09:00 10/20/16 08:59 09/25/16 08:35 500 MG Aspirin (Ecotrin Tab) 81 mg SuTuThSa@0900 PO 09/21/16 09:00 10/21/16 08:59 09/24/16 07:39 81 MG Atorvastatin Calcium (Lipitor Tab) 40 mg HS PO 09/19/16 21:00 10/19/16 20:59 09/24/16 21:34 40 MG Calcium Acetate (Phoslo Cap) 1,334 mg TIDM PO 09/20/16 07:30 10/20/16 07:29 09/25/16 17:03 1,334 MG Salmeterol Xinafoate/ Fluticasone (Advair Diskus 250/50 Inh) 1 puff BID INH 09/19/16 21:00 10/19/16 20:59 09/25/16 08:38 1 PUFF Gabapentin (Neurontin Cap) 300 mg Q8 PO 09/19/16 22:00 10/19/16 21:59 09/25/16 14:17 300 MG Insulin Glargine (Lantus Solostar Pen) 5 unit BID SC 09/19/16 21:00 10/19/16 20:59 09/25/16 08:42 5 UNIT Albuterol/ Ipratropium (Combivent Respimat Inh) 1 puffs QID INH 09/19/16 21:00 10/19/16 20:59 09/25/16 17:03 1 PUFFS Lactobacillus Acidophilus (Floranex Tab) 1 tab TID PO 09/19/16 21:00 10/19/16 20:59 09/25/16 14:18 1 TAB Loratadine (Claritin Tab) 10 mg MoWeFr@0400 PO 09/20/16 04:00 10/20/16 03:59 09/25/16 05:01 10 MG Lorazepam (Ativan Tab) 0.5 mg TID PO 09/19/16 21:00 10/19/16 20:59 09/25/16 14:17 0.5 MG Metoprolol Succinate (Toprol Xl Tab) 25 mg BID PO 09/19/16 21:00 10/19/16 20:59 09/25/16 08:37 25 MG Senna/Docusate Sodium (Senokot S Tab) 1 tab HS PO 09/19/16 21:00 10/19/16 20:59 09/24/16 21:34 1 TAB Cholecalciferol (Vitamin D Tab) 5,000 inter.unit DAILY PO 09/20/16 09:00 10/20/16 08:59 09/25/16 08:36 5,000 INTER.UNIT Dexamethasone (Decadron Tab) 2 mg DAILY PO 09/20/16 09:00 10/20/16 08:59 09/25/16 08:34 2 MG Pantoprazole Sodium (Protonix Tab) 40 mg SuTuThSa@0800 PO 09/21/16 08:00 10/21/16 07:59 09/24/16 07:40 40 MG Oxycodone HCl (Oxycontin Tab) 30 mg Q12 PO 09/19/16 21:00 10/19/16 20:59 09/25/16 08:34 30 MG Vancomycin HCl (Consult) 1 ea UD PRN N/A 09/19/16 18:00 10/20/16 15:59 Loratadine (Claritin Tab) 10 mg SuTuThSa@0800 PO 09/21/16 08:00 10/21/16 07:59 09/24/16 07:39 10 MG Polyethylene (Miralax Powder Packet) 17 gm MoWeFr@0400 PO 09/20/16 04:00 10/20/16 03:59 09/25/16 05:01 17 GM Polyethylene (Miralax Powder Packet) 17 gm SuTuThSa@0800 PO 09/21/16 08:00 10/21/16 07:59 09/22/16 08:17 17 GM Ferrous Sulfate 325 mg 325 mg DAILY PO 09/20/16 09:00 10/20/16 08:59 09/25/16 08:35 325 MG Piperacillin Sod/ Tazobactam Sod/ Dextrose (Zosyn Iv/D5 100ml) 115 ml @ 28.75 mls/ hr Q12@0400,1600 IV 09/20/16 16:00 09/30/16 03:59 09/25/16 16:05 28.75 MLS/HR Collagenase 1 appln 1 appln DAILY EXT 09/21/16 09:00 10/21/16 08:59 09/25/16 08:42 1 APPLN Acetaminophen/ Empty Bag (Ofirmev Iv/ Empty Iv Bag 100ml) 65 ml @ 260 mls/hr Q6H PRN IV 09/22/16 03:30 10/22/16 03:29 09/22/16 03:55 260 MLS/HR Oxycodone/ Acetaminophen (Percocet 5-325mg Tab) 1 tab Q6H PRN PO 09/22/16 03:30 10/06/16 03:29 09/25/16 14:44 1 TAB Bisacodyl (Dulcolax Tab) 5 mg DAILY PRN PO 09/22/16 11:45 10/22/16 11:44 09/22/16 13:32 5 MG Heparin Sodium (Porcine) (Heparin Iv Bolus) 1,000 unit TODAY@0800 IV 09/25/16 08:00 09/25/16 23:59 Heparin Sodium (Porcine) (Heparin Iv Bolus) 400 unit TODAY@0800,0900,1000 IV 09/25/16 08:00 09/25/16 23:59 Last 24 Hours Test 09/24/16 20:19 09/25/16 05:52 09/25/16 06:34 09/25/16 10:57 Bedside Glucose 162 mg/dl 142 mg/dl 187 mg/dl White Blood Count 15.84 K/uL Red Blood Count 3.92 M/uL Hemoglobin 11.3 g/dL Hematocrit 36.2 % Mean Corpuscular Volume 92.3 fL Mean Corpuscular Hemoglobin 28.8 pg Mean Corpuscular Hemoglobin Concent 31.2 g/dl Platelet Count 266 K/uL Mean Platelet Volume 9.9 fL Neutrophils (%) (Auto) 83.7 % Lymphocytes (%) (Auto) 5.4 % Monocytes (%) (Auto) 9.5 % Eosinophils (%) (Auto) 0.4 % Basophils (%) (Auto) 0.2 % Neutrophils # (Auto) 13.28 K/uL Lymphocytes # (Auto) 0.85 K/uL Monocytes # (Auto) 1.50 K/uL Eosinophils # (Auto) 0.06 K/uL Basophils # (Auto) 0.03 K/uL RDW Standard Deviation 48.7 fL RDW Coefficient of Variation 14.4 % Immature Granulocyte % (Auto) 0.8 % Immature Granulocyte # (Auto) 0.12 K/uL Sodium Level 132 mmol/L Potassium Level 4.7 mmol/L Chloride Level 94 mmol/L Carbon Dioxide Level 26 mmol/L Anion Gap 12.0 mmol/L Blood Urea Nitrogen 75 mg/dl Creatinine 6.20 mg/dl Est Creatinine Clear Calc Drug Dose 12.7 ml/min Estimated GFR () 10.6 Estimated GFR (Non- 9.2 BUN/Creatinine Ratio 12.0 Random Glucose 125 mg/dl Calcium Level 9.4 mg/dl Random Vancomycin Level 33.3 mcg/ml Test 09/25/16 15:49 Bedside Glucose 147 mg/dl Assessment & Plan 56 yo male with esrd with septic knee w/ effusion cxs growing Proteus, intermittent confusion, chronic blair, vascular disease, cardiomyopathy, hx of discitis last year in back, tunneled dialysis catheter. ESRD > for dialysis yesterday. next HD 09/27 or as clinical situation dictates anemia of chronic disease > above criteria for epo septic R knee > vascular surgery and primary service, infectious diseases working w/ pt on plan of care appreciate consult; will follow with you. Care coordinated with Dr. Smith.
[2016-09-25] MEDS: ATORVASTATIN 40 MG TAB PO SCH (21:28)
[2016-09-25] MEDS: DOCUSATE SODIUM/SENNA 50/8.6MG TAB PO SCH (21:30)
[2016-09-25] MEDS: ACETAMINOPHEN 325 MG TAB PO PRN (23:31)
[2016-09-26 03:39] VITALS: BP 114/85; PULSE 77; TEMP 36.7; O2SAT 100
[2016-09-26] MEDS: PIPERACILL/TAZOBAC IV 3.375 GM in DEXTROSE 5% 100ML IV SCH ×2 (03:48→17:41)
[2016-09-26] MEDS: HEPARIN SOD 5000 UNIT/0.5 ML CARP SQ SCH ×2 (05:36→14:51)
[2016-09-26] MEDS: GABAPENTIN 300 MG CAP PO SCH ×2 (05:36→14:51)
[2016-09-26 06:06] LABS: BASO % 0.2 %; BASO ABS # 0.03 K/uL (0-0.2); COMPLETE YES; EOS % 0.2 %; HEMATOCRIT 34.3 % (42-52); IG% 0.9 %; LYMPH % 10.6 %; LYMPH ABS # 1.59 K/uL (1.2-3.4); MEAN CELL VOLUME 93.2 fL (80-100); MEAN CORPUSCULAR HEMOGLOBIN 29.3 pg (25-34); MEAN CORPUSCULAR HGB CONC 31.5 g/dl (32-36); MONO % 7.3 %; NEUT % 80.8 %; PLATELET COUNT 225 K/uL (130-400); RED BLOOD COUNT 3.68 M/uL (4.7-6.1); WHITE BLOOD COUNT 15.07 K/uL (4.8-10.8)
[2016-09-26 06:59] LABS: BUN/CREATININE RATIO 9.3 (10-20); CALCIUM 9.1 mg/dl (8.5-10.1); CREATININE 3.8 mg/dl (0.60-1.40); POTASSIUM 3.9 mmol/L (3.5-5.1)
--- NOTE | 2016-09-26 07:45 | Progress Note ---
Internal Med Progress Note Date of Service: September 26, 2016. Provider Documentation: SUBJECTIVE: Patient is seen and examined at bedside. States would like to get the leg amputated but is worried about the procedure. Right knee pain is controlled. Denies any chest pain, SOB, abd pain, nausea. No other complaints. OBJECTIVE: Vital Signs-as noted below Physical Exam: General Appearance:Chronically ill appearing, no apparent distress Head: normocephalic, Atraumatic Eyes: normal inspection, EOMI, PERRL Neck: supple, Trachea midline Respiratory/Chest: Normal breath sounds, CTA Cardiovascular: S1, S2, No murmur Abdomen/GI:Soft, Non tender, Bowel sounds present Extremities/Musculoskelatal:Left AKA, Right knee and leg in bandage, no edema, erythema Neurologic/Psych:AAOX3, grossly no focal neurological deficits Skin: normal color, warm Lab data as noted below. ASSESSMENT & PLAN: SEPSIS Secondary to Right knee infection: S/P R knee Arthrocentesis Patient is on IV vancomycin for recent MRSA line infection; Has H/O discitis and wound infection. Blood cultures: No growth to date Right knee wound culture: Proteus mirabilis Continue Vanco and Zosyn ID, Orthopedics, Vascular following:Appreciate help Echo: No apparent valvular vegetations. Continue wound care right knee ulcer. X-ray R knee: No signs of osteomyelitis Leukocytosis stable RLE AKA recommended by Vascular Surgery Patient states he would like to get R AKA as recommended but keeps changing his opinion per staff ALTERED MENTAL STATUS Likely metabolic encephalopathy secondary to sepsis. Resolved CHRONIC LEFT VENTRICULAR SYSTOLIC HEART FAILURE LVEF 15-20%. Compensated. No JOSE MARTIN or ARB due to CKD. Continue metoprolol Cardiology on board HYPERTENSION Continue metoprolol succinate. Monitor . CKD V Hemodialysis per Nephrology. Nephrology on board [facility] schedule Got dialysis yesterday DM II Hgb A1C: 6.3. Continue Lantus, ISS CHRONIC WOUNDS Wounds right knee and right leg. Continue Wound Care DVT Px SQ heparin. DISPOSITION Plan to discharge to [facility] when medically cleared PROCEDURES: ECHO: * Limited views were obtained. * There is no evidence of a mass or vegetation. This does not rule out endocarditis. * -- Conclusions -- * Left ventricular systolic function is severely reduced. * Ejection Fraction = 15-20%. * There is severe global hypokinesis of the left ventricle. Vital Signs: Date Time Temp Pulse Resp B/P Pulse Ox O2 Delivery O2 Flow Rate FiO2 09/26/16 04:00 Room Air 09/26/16 03:39 36.7 77 15 114/85 100 Room Air 09/25/16 23:59 Nasal Cannula 09/25/16 23:35 36.7 91 23 121/86 97 Room Air 09/25/16 20:00 Nasal Cannula 09/25/16 19:10 37.4 82 17 114/85 100 Nasal Cannula 2.0 09/25/16 16:07 36.8 103 23 97/66 99 Nasal Cannula 2.0 09/25/16 16:00 Room Air 09/25/16 15:30 36.8 95 123/53 09/25/16 15:00 103 97/66 09/25/16 14:45 99 123/48 09/25/16 14:30 102 105/49 09/25/16 14:15 100 100/45 09/25/16 14:00 101 114/58 09/25/16 13:45 96 92/44 09/25/16 13:37 104 105/59 09/25/16 13:30 100 83/47 09/25/16 13:15 98 88/33 09/25/16 13:00 104 93/49 09/25/16 12:45 100 140/100 09/25/16 12:30 94 183/87 09/25/16 12:15 83 123/67 09/25/16 12:00 94 105/66 09/25/16 12:00 Room Air 09/25/16 11:46 92 112/89 09/25/16 11:39 37.7 76 116/82 09/25/16 08:39 36.9 91 15 130/84 97 Room Air Nasal Cannula 09/25/16 08:00 Room Air Lab Results: Results Past 24 Hours Test 09/25/16 10:57 09/25/16 15:49 09/25/16 20:16 09/26/16 05:20 Range/Units Bedside Glucose 187 147 157 70-99 mg/dl White Blood Count 15.07 4.8-10.8 K/uL Red Blood Count 3.68 4.7-6.1 M/uL Hemoglobin 10.8 14.0-18.0 g/dL Hematocrit 34.3 42-52 % Mean Corpuscular Volume 93.2 80-100 fL Mean Corpuscular Hemoglobin 29.3 25-34 pg Mean Corpuscular Hemoglobin Concent 31.5 32-36 g/dl Platelet Count 225 130-400 K/uL Mean Platelet Volume 10.0 7.4-10.4 fL Neutrophils (%) (Auto) 80.8 % Lymphocytes (%) (Auto) 10.6 % Monocytes (%) (Auto) 7.3 % Eosinophils (%) (Auto) 0.2 % Basophils (%) (Auto) 0.2 % Neutrophils # (Auto) 12.19 1.4-6.5 K/uL Lymphocytes # (Auto) 1.59 1.2-3.4 K/uL Monocytes # (Auto) 1.10 0.11-0.59 K/uL Eosinophils # (Auto) 0.03 0-0.5 K/uL Basophils # (Auto) 0.03 0-0.2 K/uL RDW Standard Deviation 49.1 36.4-46.3 fL RDW Coefficient of Variation 14.3 11.5-14.5 % Immature Granulocyte % (Auto) 0.9 % Immature Granulocyte # (Auto) 0.13 0.00-0.02 K/uL Sodium Level 134 136-145 mmol/L Potassium Level 3.9 3.5-5.1 mmol/L Chloride Level 98 98-107 mmol/L Carbon Dioxide Level 27 21-32 mmol/L Anion Gap 9.0 3-11 mmol/L Blood Urea Nitrogen 35 7-18 mg/dl Creatinine 3.80 0.60-1.40 mg/dl Est Creatinine Clear Calc Drug Dose 20.8 ml/min Estimated GFR () 19.2 Estimated GFR (Non- 16.6 BUN/Creatinine Ratio 9.3 10-20 Random Glucose 98 70-99 mg/dl Calcium Level 9.1 8.5-10.1 mg/dl Test 09/26/16 06:47 Range/Units Bedside Glucose 104 70-99 mg/dl
[2016-09-26] MEDS: OXYCODONE HCL 10 MG TABCR (OXYCONTIN) PO SCH ×2 (08:41→21:24)
[2016-09-26] MEDS: LORAZEPAM 0.5 MG TAB PO SCH ×3 (08:41→21:24)
[2016-09-26] MEDS: LORATADINE 10 MG TAB PO SCH (08:43)
[2016-09-26] MEDS: CALCIUM ACETATE 667MG GELCAP PO SCH ×3 (08:43→17:44)
[2016-09-26] MEDS: DEXAMETHASONE 1 MG TAB PO SCH (08:43)
[2016-09-26] MEDS: FERROUS SULFATE 325 MG TAB PO SCH (08:43)
[2016-09-26] MEDS: PANTOprazole SOD 40 MG TAB PO SCH (08:43)
[2016-09-26] MEDS: ASPIRIN 81 MG ECTAB PO SCH (08:43)
[2016-09-26] MEDS: FLUTICASONE/SALMETEROL 250/50 (ADVAIR) 14 PUFF/1 INHALER INH SCH ×2 (08:44→21:07)
[2016-09-26] MEDS: IPRATROPIUM BROMIDE/ALBUTEROL respimat INH INH SCH ×4 (08:44→21:06)
[2016-09-26] MEDS: METOPROLOL SUCC 25MG EXT REL TAB PO SCH ×2 (08:44→21:08)
[2016-09-26] MEDS: CHOLECALCIFEROL 1000 INTER.UNIT TAB PO SCH (08:44)
[2016-09-26] MEDS: LACTOBACILLUS ACIDOPHILUS (FLORANEX) TAB PO SCH ×3 (08:44→21:07)
[2016-09-26] MEDS: COLLAGENASE OINT 30 GM TUBE EXT SCH (08:45)
[2016-09-26] MEDS: POLYETHYLENE (MIRALAX) 17 GM PACK PO SCH (08:45)
[2016-09-26 08:47] VITALS: BP 132/91; PULSE 82; TEMP 36.4; O2SAT 2
[2016-09-26] MEDS: INSULIN GLARGINE SOLOSTAR 100 UNITS/ML 3 ML PEN SC SCH ×2 (08:48→21:24)
[2016-09-26] MEDS: INSULIN ASPART 100 UNITS/ML 3 ML PEN SC SCH ×4 (08:49→21:00)
[2016-09-26] MEDS: OXYCODONE/ACETAMINOPHEN 5-325 TAB PO PRN (10:47)
[2016-09-26 12:11] VITALS: BP 129/79; PULSE 90; TEMP 37.1; O2SAT 100
[2016-09-26] MEDS ORDERED: MoRPHine SULFATE 2 MG/ML CARP IV SCH (12:30)
[2016-09-26] MEDS ORDERED: NURSING VERBAL MED ORDER ONE (13:45)
[2016-09-26 15:15] VITALS: BP 117/97; PULSE 95; TEMP 37.1; O2SAT 93
--- NOTE | 2016-09-26 15:25 | Progress Note ---
Progress Note Date of Service September 26, 2016. Progress Note Patient for a left leg AKA due to knee infection. He is now agreeable. I have discussed the risks options and benefits of the procedure with the patient. The patient understands the risks options and benefits and agrees to the procedure. This will be done tomorrow.
--- NOTE | 2016-09-26 17:51 | Progress Note ---
Progress Note Date of Service September 26, 2016. Progress Note The patient is a 56 year old male scheduled for a right BKA tomorrow. He has multiple co-morbidities including chronic CHF (compensated) secondary to ischemic cardiomyopathy and an ejection fraction of 15-20%. He has an AICD, a history of CAD, HTN, PVD. He had a STEMI in 07/05,which he does not recall. He is a poor historian and cannot remember his surgeries. He is an insulin dependent type 2 diabetic and has chronic renal failure. He is dialyzed on Friday, Friday and Friday. The patient is also a DNR. The crop farm helper wrote in his note the patient is very high risk and that no further cardiac intervention would lower his cardiac risk. His airway exam revealed a small mouth, MP4 and a full head tilt. His thyromental distance was about 2 3/4 finger breadths. This combination gives me concern for a possible difficult intubation. I believe he should proceed with his surgery tomorrow.
--- NOTE | 2016-09-26 20:11 | Infectious Disease Progress Nt ---
Progress Note Date of Service September 26, 2016. Subjective Pt evaluation today including: conversation w/ patient, physical exam, chart review, lab review, review of studies, conversation w/ contract consultant, review of inpatient medication list Patient agreeable to right leg amputation. Offers no new complaints. Remains afebrile. Tolerating antibiotic without apparent difficulty. All Other Systems: Reviewed and Negative Medications Current Inpatient Medications Medications (Trade) Dose Ordered Sig/Edin Route Start Time Stop Time Status Last Admin Dose Admin Heparin Sodium (Porcine) (Heparin Sq 5000 Unit/0.5ml) 5,000 unit Q8 SQ 09/19/16 22:00 10/19/16 21:59 Future Hold 09/26/16 14:51 5,000 UNIT Acetaminophen (Tylenol Tab) 650 mg Q4H PRN PO 09/19/16 16:00 10/19/16 15:59 09/25/16 23:31 650 MG Ondansetron HCl (Zofran Inj) 4 mg Q6H PRN IV 09/19/16 16:00 10/19/16 15:59 Piperacillin Sod/ Tazobactam Sod (Consult) 1 ea UD PRN N/A 09/19/16 16:00 10/19/16 15:59 Insulin Aspart (novoLOG ASPART) SLIDING SCALE If C... ACHS SC 09/19/16 21:00 10/19/16 20:59 09/26/16 17:47 12 UNITS Glucose (Glucose 40% Gel) 15-30 GRAMS 15 GRAMS... UD PRN PO 09/19/16 16:15 10/19/16 16:14 Glucose (Glucose Chew Tab) 4-8 Tablets 4 Tabl... UD PRN PO 09/19/16 16:15 10/19/16 16:14 Dextrose (Dextrose 50% 50ML Syringe) 25-50ML OF 50% DW IV FOR... UD PRN IV 09/19/16 16:15 10/19/16 16:14 Glucagon (Glucagon Inj) 1 mg UD PRN SQ 09/19/16 16:15 10/19/16 16:14 Ascorbic Acid (Vitamin C Tab) 500 mg MoWeFr@0900 PO 09/20/16 09:00 10/20/16 08:59 09/25/16 08:35 500 MG Aspirin (Ecotrin Tab) 81 mg SuTuThSa@0900 PO 09/21/16 09:00 10/21/16 08:59 09/26/16 08:43 81 MG Atorvastatin Calcium (Lipitor Tab) 40 mg HS PO 09/19/16 21:00 10/19/16 20:59 09/25/16 21:28 40 MG Calcium Acetate (Phoslo Cap) 1,334 mg TIDM PO 09/20/16 07:30 10/20/16 07:29 09/26/16 17:44 1,334 MG Salmeterol Xinafoate/ Fluticasone (Advair Diskus 250/50 Inh) 1 puff BID INH 09/19/16 21:00 10/19/16 20:59 09/26/16 08:44 1 PUFF Gabapentin (Neurontin Cap) 300 mg Q8 PO 09/19/16 22:00 10/19/16 21:59 09/26/16 14:51 300 MG Insulin Glargine (Lantus Solostar Pen) 5 unit BID SC 09/19/16 21:00 10/19/16 20:59 09/26/16 08:48 5 UNIT Albuterol/ Ipratropium (Combivent Respimat Inh) 1 puffs QID INH 09/19/16 21:00 10/19/16 20:59 09/26/16 17:44 1 PUFFS Lactobacillus Acidophilus (Floranex Tab) 1 tab TID PO 09/19/16 21:00 10/19/16 20:59 09/26/16 14:51 1 TAB Loratadine (Claritin Tab) 10 mg MoWeFr@0400 PO 09/20/16 04:00 10/20/16 03:59 09/25/16 05:01 10 MG Lorazepam (Ativan Tab) 0.5 mg TID PO 09/19/16 21:00 10/19/16 20:59 09/26/16 14:49 0.5 MG Metoprolol Succinate (Toprol Xl Tab) 25 mg BID PO 09/19/16 21:00 10/19/16 20:59 09/26/16 08:44 25 MG Senna/Docusate Sodium (Senokot S Tab) 1 tab HS PO 09/19/16 21:00 10/19/16 20:59 09/25/16 21:30 1 TAB Cholecalciferol (Vitamin D Tab) 5,000 inter.unit DAILY PO 09/20/16 09:00 10/20/16 08:59 09/26/16 08:44 5,000 INTER.UNIT Dexamethasone (Decadron Tab) 2 mg DAILY PO 09/20/16 09:00 10/20/16 08:59 09/26/16 08:43 2 MG Pantoprazole Sodium (Protonix Tab) 40 mg SuTuThSa@0800 PO 09/21/16 08:00 10/21/16 07:59 09/26/16 08:43 40 MG Oxycodone HCl (Oxycontin Tab) 30 mg Q12 PO 09/19/16 21:00 10/19/16 20:59 09/26/16 08:41 30 MG Vancomycin HCl (Consult) 1 ea UD PRN N/A 09/19/16 18:00 10/20/16 15:59 Loratadine (Claritin Tab) 10 mg SuTuThSa@0800 PO 09/21/16 08:00 10/21/16 07:59 09/26/16 08:43 10 MG Polyethylene (Miralax Powder Packet) 17 gm MoWeFr@0400 PO 09/20/16 04:00 10/20/16 03:59 09/25/16 05:01 17 GM Polyethylene (Miralax Powder Packet) 17 gm SuTuThSa@0800 PO 09/21/16 08:00 10/21/16 07:59 09/26/16 08:45 17 GM Ferrous Sulfate 325 mg 325 mg DAILY PO 09/20/16 09:00 10/20/16 08:59 09/26/16 08:43 325 MG Piperacillin Sod/ Tazobactam Sod/ Dextrose (Zosyn Iv/D5 100ml) 115 ml @ 28.75 mls/ hr Q12@0400,1600 IV 09/20/16 16:00 09/30/16 03:59 09/26/16 17:41 28.75 MLS/HR Collagenase 1 appln 1 appln DAILY EXT 09/21/16 09:00 10/21/16 08:59 09/26/16 08:45 1 APPLN Acetaminophen/ Empty Bag (Ofirmev Iv/ Empty Iv Bag 100ml) 65 ml @ 260 mls/hr Q6H PRN IV 09/22/16 03:30 10/22/16 03:29 09/22/16 03:55 260 MLS/HR Bisacodyl (Dulcolax Tab) 5 mg DAILY PRN PO 09/22/16 11:45 10/22/16 11:44 09/22/16 13:32 5 MG Oxycodone HCl (Roxicodone Immediate Rel Tab) `1-2 TABS FOR PAIN `1 TAB... Q6H PRN PO 09/26/16 14:00 10/10/16 13:59 Albumin Human 25 gm 25 gm TODAY@0800,1200 IV 09/27/16 08:00 09/27/16 18:00 Epoetin Simone/ Syringe (Procrit Inj/ Syringe) 0.6 ml @ 1 mls/min TODAY@0800 IV. 09/27/16 08:00 09/27/16 18:00 Objective Vital Signs Date Time Temp Pulse Resp B/P Pulse Ox O2 Delivery O2 Flow Rate FiO2 09/26/16 16:00 Room Air 09/26/16 15:15 37.1 95 19 117/97 93 Room Air 09/26/16 12:11 37.1 90 22 129/79 100 Nasal Cannula 2.0 09/26/16 12:00 Nasal Cannula 2.0 09/26/16 08:47 36.4 82 100 132/91 2 Nasal Cannula 09/26/16 08:00 Nasal Cannula 2.0 09/26/16 04:00 Room Air 09/26/16 03:39 36.7 77 15 114/85 100 Room Air 09/25/16 23:59 Nasal Cannula 09/25/16 23:35 36.7 91 23 121/86 97 Room Air Physical Exam General Appearance: no apparent distress, + pertinent finding (Chronically ill- appearing) Eyes: normal inspection, sclerae normal ENT: normal ENT inspection, pharynx normal Neck: supple, no adenopathy, trachea midline Respiratory/Chest: chest non-tender, lungs clear, normal breath sounds, no respiratory distress Cardiovascular: regular rate, rhythm, no gallop, no murmur Abdomen: normal bowel sounds, non tender, soft, no organomegaly Extremities: + inflammation, + slow capillary refill, + pertinent finding ( Right knee swelling, open wound with exposed patella) Neurologic/Psychiatric: alert, oriented x 3 Skin: normal color, no rash, + pertinent finding (Open wound right knee with surrounding erythema) Lymphatic: no adenopathy Laboratory Results Last 24 Hours Test 09/25/16 20:16 09/26/16 05:20 09/26/16 06:47 09/26/16 10:53 Bedside Glucose 157 mg/dl 104 mg/dl 232 mg/dl White Blood Count 15.07 K/uL Red Blood Count 3.68 M/uL Hemoglobin 10.8 g/dL Hematocrit 34.3 % Mean Corpuscular Volume 93.2 fL Mean Corpuscular Hemoglobin 29.3 pg Mean Corpuscular Hemoglobin Concent 31.5 g/dl Platelet Count 225 K/uL Mean Platelet Volume 10.0 fL Neutrophils (%) (Auto) 80.8 % Lymphocytes (%) (Auto) 10.6 % Monocytes (%) (Auto) 7.3 % Eosinophils (%) (Auto) 0.2 % Basophils (%) (Auto) 0.2 % Neutrophils # (Auto) 12.19 K/uL Lymphocytes # (Auto) 1.59 K/uL Monocytes # (Auto) 1.10 K/uL Eosinophils # (Auto) 0.03 K/uL Basophils # (Auto) 0.03 K/uL RDW Standard Deviation 49.1 fL RDW Coefficient of Variation 14.3 % Immature Granulocyte % (Auto) 0.9 % Immature Granulocyte # (Auto) 0.13 K/uL Sodium Level 134 mmol/L Potassium Level 3.9 mmol/L Chloride Level 98 mmol/L Carbon Dioxide Level 27 mmol/L Anion Gap 9.0 mmol/L Blood Urea Nitrogen 35 mg/dl Creatinine 3.80 mg/dl Est Creatinine Clear Calc Drug Dose 20.8 ml/min Estimated GFR () 19.2 Estimated GFR (Non- 16.6 BUN/Creatinine Ratio 9.3 Random Glucose 98 mg/dl Calcium Level 9.1 mg/dl Test 09/26/16 16:10 Bedside Glucose 255 mg/dl Assessment and Plan 56-year-old male with end-stage renal disease on dialysis with longstanding diabetes, now with sepsis and encephalopathy from persistent right knee infection with Proteus. Patient to continue Zosyn pending surgical intervention. Will follow.
[2016-09-26] MEDS: DOCUSATE SODIUM/SENNA 50/8.6MG TAB PO SCH (21:08)
[2016-09-26] MEDS: ATORVASTATIN 40 MG TAB PO SCH (21:10)
[2016-09-26 23:51] VITALS: BP 100/73; PULSE 90; TEMP 37.4; O2SAT 97
[2016-09-27] VITALS (32 sets, daily range): BP systolic 99–130; BP diastolic 53–97; PULSE 71–106; TEMP 36.4–37.4; O2SAT 90–100
[2016-09-27] MEDS: OXYCODONE HCL IR 5 MG TAB (IMMEDIATE RELEASE) PO PRN ×3 (00:09→17:02)
[2016-09-27] MEDS: GABAPENTIN 300 MG CAP PO SCH ×4 (00:10→21:53)
[2016-09-27] MEDS: POLYETHYLENE (MIRALAX) 17 GM PACK PO SCH (04:00)
[2016-09-27] MEDS: PIPERACILL/TAZOBAC IV 3.375 GM in DEXTROSE 5% 100ML IV SCH ×2 (05:08→17:03)
[2016-09-27] MEDS: LORATADINE 10 MG TAB PO SCH (05:12)
[2016-09-27] MEDS: INSULIN ASPART 100 UNITS/ML 3 ML PEN SC SCH ×4 (07:00→21:00)
[2016-09-27 07:05] LABS: BUN/CREATININE RATIO 11.9 (10-20); CALCIUM 9.5 mg/dl (8.5-10.1); CREATININE 5.1 mg/dl (0.60-1.40); POTASSIUM 4.6 mmol/L (3.5-5.1)
[2016-09-27] MEDS: CALCIUM ACETATE 667MG GELCAP PO SCH ×3 (07:30→17:04)
[2016-09-27] MEDS ORDERED: EPOETIN ALFA 10,000 UNITS/ML VIAL IV. ONE (08:00)
[2016-09-27] MEDS ORDERED: EPOETIN ALFA INJ 12,000 UNITS in SYRINGE 0 ML IV. SCH (08:00)
[2016-09-27] MEDS: OXYCODONE HCL 10 MG TABCR (OXYCONTIN) PO SCH ×2 (08:23→21:54)
[2016-09-27] MEDS: LORAZEPAM 0.5 MG TAB PO SCH ×3 (08:23→21:54)
[2016-09-27] MEDS: FERROUS SULFATE 325 MG TAB PO SCH (08:24)
[2016-09-27] MEDS: DEXAMETHASONE 1 MG TAB PO SCH (08:24)
[2016-09-27] MEDS: METOPROLOL SUCC 25MG EXT REL TAB PO SCH ×2 (08:25→21:53)
[2016-09-27] MEDS: ASCORBIC ACID 500 MG TAB PO SCH (08:26)
[2016-09-27] MEDS: CHOLECALCIFEROL 1000 INTER.UNIT TAB PO SCH (08:26)
[2016-09-27] MEDS: FLUTICASONE/SALMETEROL 250/50 (ADVAIR) 14 PUFF/1 INHALER INH SCH ×2 (08:27→21:53)
[2016-09-27] MEDS: LACTOBACILLUS ACIDOPHILUS (FLORANEX) TAB PO SCH ×3 (08:27→21:53)
[2016-09-27] MEDS: COLLAGENASE OINT 30 GM TUBE EXT SCH (08:27)
[2016-09-27] MEDS: IPRATROPIUM BROMIDE/ALBUTEROL respimat INH INH SCH ×4 (08:27→21:53)
[2016-09-27] MEDS: INSULIN GLARGINE SOLOSTAR 100 UNITS/ML 3 ML PEN SC SCH ×2 (09:35→21:58)
--- NOTE | 2016-09-27 09:51 | Progress Note ---
Internal Med Progress Note Date of Service: September 27, 2016. Provider Documentation: SUBJECTIVE: Patient is seen and examined at bedside. Planned for R AKA today and HD after the surgery. Clinically no significant change from yesterday. R leg pain is controlled. Denies any chest pain, SOB, abd pain, nausea. No other complaints. OBJECTIVE: Vital Signs-as noted below Physical Exam: General Appearance:Chronically ill appearing, no apparent distress Head: normocephalic, Atraumatic Eyes: normal inspection, EOMI, PERRL Neck: supple, Trachea midline Respiratory/Chest: Normal breath sounds, CTA Cardiovascular: S1, S2, No murmur Abdomen/GI:Soft, Non tender, Bowel sounds present Extremities/Musculoskelatal:Left AKA, Right knee and leg in bandage, no edema, erythema Neurologic/Psych:AAOX3, grossly no focal neurological deficits Skin: normal color, warm Lab data as noted below. ASSESSMENT & PLAN: SEPSIS Secondary to Right knee infection: S/P R knee Arthrocentesis Patient is on IV vancomycin for recent MRSA line infection; Has H/O discitis and wound infection. Blood cultures: No growth to date Right knee wound culture: Proteus mirabilis Continue Vanco and Zosyn ID, Orthopedics, Vascular following:Appreciate help Echo: No apparent valvular vegetations. Continue wound care right knee ulcer. X-ray R knee: No signs of osteomyelitis Leukocytosis stable Planned for R AKA today ALTERED MENTAL STATUS Likely metabolic encephalopathy secondary to sepsis. Resolved CHRONIC LEFT VENTRICULAR SYSTOLIC HEART FAILURE LVEF 15-20%. Compensated. No JOSE MARTIN or ARB due to CKD. Continue metoprolol Cardiology on board HYPERTENSION Continue metoprolol succinate. Monitor . CKD V Hemodialysis per Nephrology. Nephrology on board MWF schedule Planned for HD after the surgery today DM II Hgb A1C: 6.3. Continue Lantus, ISS CHRONIC WOUNDS Wounds right knee and right leg. Continue Wound Care DVT Px SQ heparin. (On Hold for Surgery) DISPOSITION Plan to discharge to [facility] when medically cleared PROCEDURES: ECHO: * Limited views were obtained. * There is no evidence of a mass or vegetation. This does not rule out endocarditis. * -- Conclusions -- * Left ventricular systolic function is severely reduced. * Ejection Fraction = 15-20%. * There is severe global hypokinesis of the left ventricle. Vital Signs: Date Time Temp Pulse Resp B/P Pulse Ox O2 Delivery O2 Flow Rate FiO2 09/27/16 08:36 37.4 106 24 125/97 100 Room Air 09/27/16 08:00 Room Air 09/27/16 04:10 36.4 95 18 104/73 98 09/27/16 04:00 Room Air 09/26/16 23:59 Room Air 09/26/16 23:51 37.4 90 16 100/73 97 Room Air 09/26/16 20:00 Mask 6.0 09/26/16 16:00 Room Air 09/26/16 15:15 37.1 95 19 117/97 93 Room Air 09/26/16 12:11 37.1 90 22 129/79 100 Nasal Cannula 2.0 09/26/16 12:00 Nasal Cannula 2.0 Lab Results: Results Past 24 Hours Test 09/26/16 10:53 09/26/16 16:10 09/26/16 20:25 09/27/16 05:34 Range/Units Bedside Glucose 232 255 155 70-99 mg/dl Sodium Level 133 136-145 mmol/L Potassium Level 4.6 3.5-5.1 mmol/L Chloride Level 96 98-107 mmol/L Carbon Dioxide Level 24 21-32 mmol/L Anion Gap 13.0 3-11 mmol/L Creatinine 5.10 0.60-1.40 mg/dl Est Creatinine Clear Calc Drug Dose 15.5 ml/min Estimated GFR () 13.4 Estimated GFR (Non- 11.6 BUN/Creatinine Ratio 11.9 10-20 Random Glucose 112 70-99 mg/dl Calcium Level 9.5 8.5-10.1 mg/dl Phosphorus Level 4.0 2.5-4.9 mg/dl Iron Level 50 35-175 mcg/dl Total Iron Binding Capacity 131 250-450 mcg/dl Transferrin 107 200-360 mg/dl Transferrin % Saturation 33 20-50 % Random Vancomycin Level 24.3 mcg/ml Test 09/27/16 06:32 Range/Units Bedside Glucose 120 70-99 mg/dl
--- NOTE | 2016-09-27 10:14 | Nephrology Progress Note ---
Nephrology Progress Note Date of Service: September 27, 2016. Subjective c/o intermittent R knee / prox leg ; no dyspnea, no n/v; no edema; for R AKA early this afternoon. then HD after. intermittent confusion; ongoing knee/ back pain. not constipated. Objective Date Time Temp Pulse Resp B/P Pulse Ox O2 Delivery O2 Flow Rate FiO2 09/27/16 08:36 37.4 106 24 125/97 100 Room Air 09/27/16 08:00 Room Air 09/27/16 04:10 36.4 95 18 104/73 98 09/27/16 04:00 Room Air 09/26/16 23:59 Room Air 09/26/16 23:51 37.4 90 16 100/73 97 Room Air 09/26/16 20:00 Mask 6.0 09/26/16 16:00 Room Air 09/26/16 15:15 37.1 95 19 117/97 93 Room Air 09/26/16 12:11 37.1 90 22 129/79 100 Nasal Cannula 2.0 09/26/16 12:00 Nasal Cannula 2.0 Physical Exam: General-aaox3 and today less lethargic, answers appropriately for most part Eyes-no scleral icterus ENT-mmm Neck-supple Lungs-clear Heart-tachycardic, regular, in 90s Abdomen-bs+ s/nt/nd Extremities-right knee infection, left aka; bandaged R elbow Neuro-confused -chronic blair, some yellow urine Current Inpatient Medications Medications (Trade) Dose Ordered Sig/Edin Route Start Time Stop Time Status Last Admin Dose Admin Heparin Sodium (Porcine) (Heparin Sq 5000 Unit/0.5ml) 5,000 unit Q8 SQ 09/19/16 22:00 10/19/16 21:59 Future Hold 09/26/16 14:51 5,000 UNIT Acetaminophen (Tylenol Tab) 650 mg Q4H PRN PO 09/19/16 16:00 10/19/16 15:59 09/25/16 23:31 650 MG Ondansetron HCl (Zofran Inj) 4 mg Q6H PRN IV 09/19/16 16:00 10/19/16 15:59 Piperacillin Sod/ Tazobactam Sod (Consult) 1 ea UD PRN N/A 09/19/16 16:00 10/19/16 15:59 Insulin Aspart (novoLOG ASPART) SLIDING SCALE If C... ACHS SC 09/19/16 21:00 10/19/16 20:59 09/26/16 17:47 12 UNITS Glucose (Glucose 40% Gel) 15-30 GRAMS 15 GRAMS... UD PRN PO 09/19/16 16:15 10/19/16 16:14 Glucose (Glucose Chew Tab) 4-8 Tablets 4 Tabl... UD PRN PO 09/19/16 16:15 10/19/16 16:14 Dextrose (Dextrose 50% 50ML Syringe) 25-50ML OF 50% DW IV FOR... UD PRN IV 09/19/16 16:15 10/19/16 16:14 Glucagon (Glucagon Inj) 1 mg UD PRN SQ 09/19/16 16:15 10/19/16 16:14 Ascorbic Acid (Vitamin C Tab) 500 mg MoWeFr@0900 PO 09/20/16 09:00 10/20/16 08:59 09/27/16 08:26 500 MG Aspirin (Ecotrin Tab) 81 mg SuTuThSa@0900 PO 09/21/16 09:00 10/21/16 08:59 09/26/16 08:43 81 MG Atorvastatin Calcium (Lipitor Tab) 40 mg HS PO 09/19/16 21:00 10/19/16 20:59 09/26/16 21:10 40 MG Calcium Acetate (Phoslo Cap) 1,334 mg TIDM PO 09/20/16 07:30 10/20/16 07:29 09/26/16 17:44 1,334 MG Salmeterol Xinafoate/ Fluticasone (Advair Diskus 250/50 Inh) 1 puff BID INH 09/19/16 21:00 10/19/16 20:59 09/27/16 08:27 1 PUFF Gabapentin (Neurontin Cap) 300 mg Q8 PO 09/19/16 22:00 10/19/16 21:59 09/27/16 05:12 300 MG Insulin Glargine (Lantus Solostar Pen) 5 unit BID SC 09/19/16 21:00 10/19/16 20:59 09/27/16 09:35 3 UNIT Albuterol/ Ipratropium (Combivent Respimat Inh) 1 puffs QID INH 09/19/16 21:00 10/19/16 20:59 09/27/16 08:27 1 PUFFS Lactobacillus Acidophilus (Floranex Tab) 1 tab TID PO 09/19/16 21:00 10/19/16 20:59 09/27/16 08:27 1 TAB Loratadine (Claritin Tab) 10 mg MoWeFr@0400 PO 09/20/16 04:00 10/20/16 03:59 09/27/16 05:12 10 MG Lorazepam (Ativan Tab) 0.5 mg TID PO 09/19/16 21:00 10/19/16 20:59 09/27/16 08:23 0.5 MG Metoprolol Succinate (Toprol Xl Tab) 25 mg BID PO 09/19/16 21:00 10/19/16 20:59 09/27/16 08:25 25 MG Senna/Docusate Sodium (Senokot S Tab) 1 tab HS PO 09/19/16 21:00 10/19/16 20:59 09/26/16 21:08 1 TAB Cholecalciferol (Vitamin D Tab) 5,000 inter.unit DAILY PO 09/20/16 09:00 10/20/16 08:59 09/27/16 08:26 5,000 INTER.UNIT Dexamethasone (Decadron Tab) 2 mg DAILY PO 09/20/16 09:00 10/20/16 08:59 09/27/16 08:24 2 MG Pantoprazole Sodium (Protonix Tab) 40 mg SuTuThSa@0800 PO 09/21/16 08:00 10/21/16 07:59 09/26/16 08:43 40 MG Oxycodone HCl (Oxycontin Tab) 30 mg Q12 PO 09/19/16 21:00 10/19/16 20:59 09/27/16 08:23 30 MG Vancomycin HCl (Consult) 1 ea UD PRN N/A 09/19/16 18:00 10/20/16 15:59 Loratadine (Claritin Tab) 10 mg SuTuThSa@0800 PO 09/21/16 08:00 10/21/16 07:59 09/26/16 08:43 10 MG Polyethylene (Miralax Powder Packet) 17 gm MoWeFr@0400 PO 09/20/16 04:00 10/20/16 03:59 09/25/16 05:01 17 GM Polyethylene (Miralax Powder Packet) 17 gm SuTuThSa@0800 PO 09/21/16 08:00 10/21/16 07:59 09/26/16 08:45 17 GM Ferrous Sulfate 325 mg 325 mg DAILY PO 09/20/16 09:00 10/20/16 08:59 09/27/16 08:24 325 MG Piperacillin Sod/ Tazobactam Sod/ Dextrose (Zosyn Iv/D5 100ml) 115 ml @ 28.75 mls/ hr Q12@0400,1600 IV 09/20/16 16:00 09/30/16 03:59 09/27/16 05:08 28.75 MLS/HR Collagenase 1 appln 1 appln DAILY EXT 09/21/16 09:00 10/21/16 08:59 09/26/16 08:45 1 APPLN Acetaminophen/ Empty Bag (Ofirmev Iv/ Empty Iv Bag 100ml) 65 ml @ 260 mls/hr Q6H PRN IV 09/22/16 03:30 10/22/16 03:29 09/22/16 03:55 260 MLS/HR Bisacodyl (Dulcolax Tab) 5 mg DAILY PRN PO 09/22/16 11:45 10/22/16 11:44 09/22/16 13:32 5 MG Oxycodone HCl (Roxicodone Immediate Rel Tab) `1-2 TABS FOR PAIN `1 TAB... Q6H PRN PO 09/26/16 14:00 10/10/16 13:59 09/27/16 08:23 5 MG Albumin Human 25 gm 25 gm TODAY@0800,1200 IV 09/27/16 08:00 09/27/16 18:00 Epoetin Simone 66844 units/ Syringe 0.6 ml @ 1 mls/min TODAY@0800 IV. 09/27/16 08:00 09/27/16 18:00 Vancomycin HCl/ Sodium Chloride (Vancomycin Inj/ Nss 250ml) 260 ml @ 125 mls/hr Fr@1600 IV 09/27/16 16:00 09/27/16 18:05 Last 24 Hours Test 09/26/16 10:53 09/26/16 16:10 09/26/16 20:25 09/27/16 05:34 Bedside Glucose 232 mg/dl 255 mg/dl 155 mg/dl Sodium Level 133 mmol/L Potassium Level 4.6 mmol/L Chloride Level 96 mmol/L Carbon Dioxide Level 24 mmol/L Anion Gap 13.0 mmol/L Creatinine 5.10 mg/dl Est Creatinine Clear Calc Drug Dose 15.5 ml/min Estimated GFR () 13.4 Estimated GFR (Non- 11.6 BUN/Creatinine Ratio 11.9 Random Glucose 112 mg/dl Calcium Level 9.5 mg/dl Phosphorus Level 4.0 mg/dl Iron Level 50 mcg/dl Total Iron Binding Capacity 131 mcg/dl Transferrin 107 mg/dl Transferrin % Saturation 33 % Random Vancomycin Level 24.3 mcg/ml Test 09/27/16 06:32 Bedside Glucose 120 mg/dl Assessment & Plan 56 yo male with esrd with septic knee w/ effusion cxs growing Proteus, intermittent confusion, chronic blair, vascular disease, cardiomyopathy, hx of discitis last year in back, tunneled dialysis catheter. ESRD > for dialysis today post op or working around OR -cont daily bmp, cbc anemia of chronic disease > above criteria for epo still septic R knee > vascular surgery and primary service, infectious diseases working w/ pt on plan of care > for R AKA today appreciate consult; will follow with you.
--- NOTE | 2016-09-27 11:29 | Infectious Disease Progress Nt ---
Progress Note Date of Service September 27, 2016. Subjective Pt evaluation today including: conversation w/ patient, physical exam, chart review, lab review, review of studies, conversation w/ transportation sales consultant, review of inpatient medication list Patient awaiting AKA later this afternoon. Offers no new specific complaints. Pain in his right knee about the same. No fever. All Other Systems: Reviewed and Negative Medications Current Inpatient Medications Medications (Trade) Dose Ordered Sig/Edin Route Start Time Stop Time Status Last Admin Dose Admin Heparin Sodium (Porcine) (Heparin Sq 5000 Unit/0.5ml) 5,000 unit Q8 SQ 09/19/16 22:00 10/19/16 21:59 Future Hold 09/26/16 14:51 5,000 UNIT Acetaminophen (Tylenol Tab) 650 mg Q4H PRN PO 09/19/16 16:00 10/19/16 15:59 09/25/16 23:31 650 MG Ondansetron HCl (Zofran Inj) 4 mg Q6H PRN IV 09/19/16 16:00 10/19/16 15:59 Piperacillin Sod/ Tazobactam Sod (Consult) 1 ea UD PRN N/A 09/19/16 16:00 10/19/16 15:59 Insulin Aspart (novoLOG ASPART) SLIDING SCALE If C... ACHS SC 09/19/16 21:00 10/19/16 20:59 09/26/16 17:47 12 UNITS Glucose (Glucose 40% Gel) 15-30 GRAMS 15 GRAMS... UD PRN PO 09/19/16 16:15 10/19/16 16:14 Glucose (Glucose Chew Tab) 4-8 Tablets 4 Tabl... UD PRN PO 09/19/16 16:15 10/19/16 16:14 Dextrose (Dextrose 50% 50ML Syringe) 25-50ML OF 50% DW IV FOR... UD PRN IV 09/19/16 16:15 10/19/16 16:14 Glucagon (Glucagon Inj) 1 mg UD PRN SQ 09/19/16 16:15 10/19/16 16:14 Ascorbic Acid (Vitamin C Tab) 500 mg MoWeFr@0900 PO 09/20/16 09:00 10/20/16 08:59 09/27/16 08:26 500 MG Aspirin (Ecotrin Tab) 81 mg SuTuThSa@0900 PO 09/21/16 09:00 10/21/16 08:59 09/26/16 08:43 81 MG Atorvastatin Calcium (Lipitor Tab) 40 mg HS PO 09/19/16 21:00 10/19/16 20:59 09/26/16 21:10 40 MG Calcium Acetate (Phoslo Cap) 1,334 mg TIDM PO 09/20/16 07:30 10/20/16 07:29 09/26/16 17:44 1,334 MG Salmeterol Xinafoate/ Fluticasone (Advair Diskus 250/50 Inh) 1 puff BID INH 09/19/16 21:00 10/19/16 20:59 09/27/16 08:27 1 PUFF Gabapentin (Neurontin Cap) 300 mg Q8 PO 09/19/16 22:00 10/19/16 21:59 09/27/16 05:12 300 MG Insulin Glargine (Lantus Solostar Pen) 5 unit BID SC 09/19/16 21:00 10/19/16 20:59 09/27/16 09:35 3 UNIT Albuterol/ Ipratropium (Combivent Respimat Inh) 1 puffs QID INH 09/19/16 21:00 10/19/16 20:59 09/27/16 08:27 1 PUFFS Lactobacillus Acidophilus (Floranex Tab) 1 tab TID PO 09/19/16 21:00 10/19/16 20:59 09/27/16 08:27 1 TAB Loratadine (Claritin Tab) 10 mg MoWeFr@0400 PO 09/20/16 04:00 10/20/16 03:59 09/27/16 05:12 10 MG Lorazepam (Ativan Tab) 0.5 mg TID PO 09/19/16 21:00 10/19/16 20:59 09/27/16 08:23 0.5 MG Metoprolol Succinate (Toprol Xl Tab) 25 mg BID PO 09/19/16 21:00 10/19/16 20:59 09/27/16 08:25 25 MG Senna/Docusate Sodium (Senokot S Tab) 1 tab HS PO 09/19/16 21:00 10/19/16 20:59 09/26/16 21:08 1 TAB Cholecalciferol (Vitamin D Tab) 5,000 inter.unit DAILY PO 09/20/16 09:00 10/20/16 08:59 09/27/16 08:26 5,000 INTER.UNIT Dexamethasone (Decadron Tab) 2 mg DAILY PO 09/20/16 09:00 10/20/16 08:59 09/27/16 08:24 2 MG Pantoprazole Sodium (Protonix Tab) 40 mg SuTuThSa@0800 PO 09/21/16 08:00 10/21/16 07:59 09/26/16 08:43 40 MG Oxycodone HCl (Oxycontin Tab) 30 mg Q12 PO 09/19/16 21:00 10/19/16 20:59 09/27/16 08:23 30 MG Vancomycin HCl (Consult) 1 ea UD PRN N/A 09/19/16 18:00 10/20/16 15:59 Loratadine (Claritin Tab) 10 mg SuTuThSa@0800 PO 09/21/16 08:00 10/21/16 07:59 09/26/16 08:43 10 MG Polyethylene (Miralax Powder Packet) 17 gm MoWeFr@0400 PO 09/20/16 04:00 10/20/16 03:59 09/25/16 05:01 17 GM Polyethylene (Miralax Powder Packet) 17 gm SuTuThSa@0800 PO 09/21/16 08:00 10/21/16 07:59 09/26/16 08:45 17 GM Ferrous Sulfate 325 mg 325 mg DAILY PO 09/20/16 09:00 10/20/16 08:59 09/27/16 08:24 325 MG Piperacillin Sod/ Tazobactam Sod/ Dextrose (Zosyn Iv/D5 100ml) 115 ml @ 28.75 mls/ hr Q12@0400,1600 IV 09/20/16 16:00 09/30/16 03:59 09/27/16 05:08 28.75 MLS/HR Collagenase 1 appln 1 appln DAILY EXT 09/21/16 09:00 10/21/16 08:59 09/26/16 08:45 1 APPLN Acetaminophen/ Empty Bag (Ofirmev Iv/ Empty Iv Bag 100ml) 65 ml @ 260 mls/hr Q6H PRN IV 09/22/16 03:30 10/22/16 03:29 09/22/16 03:55 260 MLS/HR Bisacodyl (Dulcolax Tab) 5 mg DAILY PRN PO 09/22/16 11:45 10/22/16 11:44 09/22/16 13:32 5 MG Oxycodone HCl (Roxicodone Immediate Rel Tab) `1-2 TABS FOR PAIN `1 TAB... Q6H PRN PO 09/26/16 14:00 10/10/16 13:59 09/27/16 08:23 5 MG Albumin Human 25 gm 25 gm TODAY@0800,1200 IV 09/27/16 08:00 09/27/16 18:00 Epoetin Simone 47712 units/ Syringe 0.6 ml @ 1 mls/min TODAY@0800 IV. 09/27/16 08:00 09/27/16 18:00 Vancomycin HCl/ Sodium Chloride (Vancomycin Inj/ Nss 250ml) 260 ml @ 125 mls/hr Fr@1800 IV 09/27/16 18:00 09/27/16 20:05 Objective Vital Signs Date Time Temp Pulse Resp B/P Pulse Ox O2 Delivery O2 Flow Rate FiO2 09/27/16 08:36 37.4 106 24 125/97 100 Room Air 09/27/16 08:00 Room Air 09/27/16 04:10 36.4 95 18 104/73 98 09/27/16 04:00 Room Air 09/26/16 23:59 Room Air 09/26/16 23:51 37.4 90 16 100/73 97 Room Air 09/26/16 20:00 Mask 6.0 09/26/16 16:00 Room Air 09/26/16 15:15 37.1 95 19 117/97 93 Room Air 09/26/16 12:11 37.1 90 22 129/79 100 Nasal Cannula 2.0 09/26/16 12:00 Nasal Cannula 2.0 Physical Exam General Appearance: no apparent distress, + pertinent finding (Chronically ill- appearing) Eyes: normal inspection, EOMI, sclerae normal ENT: normal ENT inspection, pharynx normal Neck: supple, no adenopathy, trachea midline Respiratory/Chest: chest non-tender, lungs clear, normal breath sounds, no respiratory distress Cardiovascular: regular rate, rhythm, no gallop, no murmur Abdomen: normal bowel sounds, non tender, soft, no organomegaly Extremities: + inflammation, + slow capillary refill Neurologic/Psychiatric: alert, oriented x 3 Skin: normal color, no rash, + pertinent finding (Right knee wound unchanged) Lymphatic: no adenopathy Laboratory Results Last 24 Hours Test 09/26/16 16:10 09/26/16 20:25 09/27/16 05:34 09/27/16 06:32 Bedside Glucose 255 mg/dl 155 mg/dl 120 mg/dl Sodium Level 133 mmol/L Potassium Level 4.6 mmol/L Chloride Level 96 mmol/L Carbon Dioxide Level 24 mmol/L Anion Gap 13.0 mmol/L Creatinine 5.10 mg/dl Est Creatinine Clear Calc Drug Dose 15.5 ml/min Estimated GFR () 13.4 Estimated GFR (Non- 11.6 BUN/Creatinine Ratio 11.9 Random Glucose 112 mg/dl Calcium Level 9.5 mg/dl Phosphorus Level 4.0 mg/dl Iron Level 50 mcg/dl Total Iron Binding Capacity 131 mcg/dl Transferrin 107 mg/dl Transferrin % Saturation 33 % Random Vancomycin Level 24.3 mcg/ml Assessment and Plan 56-year-old male with end-stage renal disease on dialysis with longstanding diabetes, now with sepsis and encephalopathy from persistent right knee infection with Proteus. Patient to continue Zosyn pending surgical intervention. Will follow.
--- NOTE | 2016-09-27 11:29 | Pharmacy Progress Note ---
Pharmacy Abx Dose Short Note Date of Service September 27, 2016. Assessment & Plan Assessment 56 year old male receiving Vancomycin + Zosyn for treatment of sepsis secondary to Right Knee Infection, recent MRSA line infection, h/o discitis and wound infection. Pt to have R AKA today and HD following OR * AKA will change vancomycin PK (Vd). Likely not going to change vanco dosing scheme as post-HD doses of vancomycin are calculated based on pre-HD vancomycin level Day # 10 of inpatient tx for indefinite of antimicrobial therapy. Plan Vancomycin * Pre-HD random level of 24.3 mcg/mL correlates with giving a recommended dose of Vanco 0-500mg IV after HD * Will give Vancomycin 500mg IV x 1 dose today after HD as next HD session will not be until Friday * Goal trough level for complicated infections is : 15 to 20 mcg/mL * Random level ordered prior to next HD session: 09/30/16 with AM labs Zosyn * Continue extended infusion dosing of 3.375g IV Q12hrs (each dose given over 4 hrs) for CrCr < 20 ml/min Pharmacy will continue to follow and will adjust dose/frequency as necessary. Thank you.
--- NOTE | 2016-09-27 12:54 | Progress Note ---
Progress Note Date of Service September 27, 2016. Progress Note Patient for AKA today. I have discussed the risks options and benefits of the procedure with the patient. The patient understands the risks options and benefits and agrees to the procedure. I have examined the patient, reviewed the History & Physical and in the interval since the performance of the History & Physical I have noted the following changes of clinical significance: No changes noted
[2016-09-27] MEDS ORDERED: BACITRACIN 50000 UNIT VIAL ONE (13:12)
[2016-09-27] MEDS ORDERED: PROPOFOL IV EMULSION 10 MG/ML 20 ML VIAL IV ONE (13:18)
[2016-09-27] MEDS ORDERED: FENTANYL CITRATE INJ 50 MCG/1 ML 2 ML VIAL ONE ×4 (13:18→15:29)
[2016-09-27] MEDS ORDERED: MIDAZOLAM HCL 1 MG/ML 2ML VIAL ONE (13:19)
[2016-09-27] MEDS ORDERED: ONDANSETRON INJ 2 MG/ML 2 ML VIAL ONE (13:35)
[2016-09-27] MEDS ORDERED: ETOMIDATE 2 MG/ML 20 ML VIAL IV ONE (13:35)
[2016-09-27] MEDS ORDERED: ROCURONIUM BROMIDE 10 MG/ML 5 ML VIAL ONE (13:35)
[2016-09-27] MEDS ORDERED: LIDOCAINE HCL 2% 2 ML VIAL (20MG/ML) ONE (14:28)
[2016-09-27] MEDS ORDERED: SUCCINYLCHOLINE CHLORIDE 20 MG/ML 10 ML VIAL IV ONE (14:28)
--- NOTE | 2016-09-27 15:09 | [facility] Post Operative Brief Note ---
Immediate Operative Summary Operative Date September 27, 2016. Pre-Operative Diagnosis Infected Right Knee Post-Operative Diagnosis Same as preoperative Procedure(s) Performed Right Above Knee Amputation Surgeon Php Programmer Surgeon(s) Daphney Ramirez Pa-C Estimated Blood Loss 150ML Findings viable thigh muscle Specimens A. Right lower leg Anesthesia Gen Complication(s) None Disposition Surgical ICU
[2016-09-27] MEDS ORDERED: FENTANYL CITRATE INJ 50 MCG/1 ML 2 ML VIAL IV PRN (15:30)
[2016-09-27] MEDS ORDERED: EpHEDrine SULFATE INJ 50 MG/ML AMP IV PRN (15:30)
[2016-09-27] MEDS ORDERED: LABETALOL HCL IV 5 MG/ML 20ML IV PRN (15:30)
[2016-09-27] MEDS ORDERED: MEPERIDINE HCL 25 MG/ML CARP IV PRN (15:30)
[2016-09-27] MEDS ORDERED: ATROPINE SULFATE 0.1 MG/ML 5ML SYR IV PRN (15:30)
[2016-09-27] MEDS ORDERED: HYDROmorphone INJ 1 MG/ML SYR IV PRN (15:30)
[2016-09-27] MEDS ORDERED: ONDANSETRON INJ 2 MG/ML 2 ML VIAL IV PRN (15:30)
[2016-09-27] MEDS ORDERED: VANCOMYCIN INJ 500 MG in SODIUM CHLORIDE 0.9% 250ML 250 ML IV SCH ×2 (16:00→18:00)
--- NOTE | 2016-09-27 16:33 | Anesthesiology Progress Note ---
Anesthesia Post Op Note Date & Time September 27, 2016 at 16:33 Vital Signs Pain Intensity: 2 Vital Signs Past 12 Hours Date Time Temp Pulse Resp B/P Pulse Ox O2 Delivery O2 Flow Rate FiO2 09/27/16 15:49 36.3 88 20 116/86 100 Nasal Cannula 2 09/27/16 15:46 90 20 09/27/16 15:46 90 20 90 09/27/16 15:45 123/92 09/27/16 15:41 88 38 09/27/16 15:41 89 38 100 09/27/16 15:40 88 37 09/27/16 15:40 89 37 130/87 100 09/27/16 15:36 108/88 09/27/16 15:35 87 20 09/27/16 15:35 90 20 100 09/27/16 15:31 124/88 09/27/16 15:30 89 25 09/27/16 15:30 91 25 100 09/27/16 15:25 91 29 09/27/16 15:25 91 29 112/95 99 09/27/16 15:20 92 23 09/27/16 15:20 88 23 123/83 100 09/27/16 15:15 88 24 129/87 91 09/27/16 15:15 84 24 09/27/16 15:11 112/87 09/27/16 15:10 36.3 88 20 112/87 100 Mask 10 09/27/16 15:10 35 09/27/16 15:10 88 35 09/27/16 12:00 Room Air 09/27/16 11:50 37.3 88 20 112/81 95 Room Air 09/27/16 08:36 37.4 106 24 125/97 100 Room Air 09/27/16 08:00 Room Air Notes Mental Status: alert / awake / arousable, participated in evaluation Pt Amnestic to Procedure: Yes Nausea / Vomiting: adequately controlled Pain: adequately controlled Airway Patency, RR, SpO2: stable & adequate BP & HR: stable & adequate Hydration State: stable & adequate Anesthetic Complications: no major complications apparent
--- NOTE | 2016-09-27 17:18 | Nephrology Progress Note ---
Nephrology Progress Note Date of Service: September 27, 2016. Subjective c/o intermittent R knee / prox leg and back pain; no dyspnea, no n/v; no edema; for surgery later today; intermittent confusion Objective Date Time Temp Pulse Resp B/P Pulse Ox O2 Delivery O2 Flow Rate FiO2 09/27/16 08:36 37.4 106 24 125/97 100 Room Air 09/27/16 08:00 Room Air 09/27/16 04:10 36.4 95 18 104/73 98 09/27/16 04:00 Room Air 09/26/16 23:59 Room Air 09/26/16 23:51 37.4 90 16 100/73 97 Room Air 09/26/16 20:00 Mask 6.0 09/26/16 16:00 Room Air 09/26/16 15:15 37.1 95 19 117/97 93 Room Air 09/26/16 12:11 37.1 90 22 129/79 100 Nasal Cannula 2.0 09/26/16 12:00 Nasal Cannula 2.0 Physical Exam: General-aaox3, answers appropriately Eyes-no scleral icterus ENT-mmm Neck-supple Lungs-clear Heart-regular in 90s Abdomen-bs+ s/nt/nd Extremities-right knee infection, left aka Neuro-confused -chronic blair, scant yellow urine Current Inpatient Medications Medications (Trade) Dose Ordered Sig/Edin Route Start Time Stop Time Status Last Admin Dose Admin Heparin Sodium (Porcine) (Heparin Sq 5000 Unit/0.5ml) 5,000 unit Q8 SQ 09/19/16 22:00 10/19/16 21:59 Future Hold 09/26/16 14:51 5,000 UNIT Acetaminophen (Tylenol Tab) 650 mg Q4H PRN PO 09/19/16 16:00 10/19/16 15:59 09/25/16 23:31 650 MG Ondansetron HCl (Zofran Inj) 4 mg Q6H PRN IV 09/19/16 16:00 10/19/16 15:59 Piperacillin Sod/ Tazobactam Sod (Consult) 1 ea UD PRN N/A 09/19/16 16:00 10/19/16 15:59 Insulin Aspart (novoLOG ASPART) SLIDING SCALE If C... ACHS SC 09/19/16 21:00 10/19/16 20:59 09/26/16 17:47 12 UNITS Glucose (Glucose 40% Gel) 15-30 GRAMS 15 GRAMS... UD PRN PO 09/19/16 16:15 10/19/16 16:14 Glucose (Glucose Chew Tab) 4-8 Tablets 4 Tabl... UD PRN PO 09/19/16 16:15 10/19/16 16:14 Dextrose (Dextrose 50% 50ML Syringe) 25-50ML OF 50% DW IV FOR... UD PRN IV 09/19/16 16:15 10/19/16 16:14 Glucagon (Glucagon Inj) 1 mg UD PRN SQ 09/19/16 16:15 10/19/16 16:14 Ascorbic Acid (Vitamin C Tab) 500 mg MoWeFr@0900 PO 09/20/16 09:00 10/20/16 08:59 09/27/16 08:26 500 MG Aspirin (Ecotrin Tab) 81 mg SuTuThSa@0900 PO 09/21/16 09:00 10/21/16 08:59 09/26/16 08:43 81 MG Atorvastatin Calcium (Lipitor Tab) 40 mg HS PO 09/19/16 21:00 10/19/16 20:59 09/26/16 21:10 40 MG Calcium Acetate (Phoslo Cap) 1,334 mg TIDM PO 09/20/16 07:30 10/20/16 07:29 09/26/16 17:44 1,334 MG Salmeterol Xinafoate/ Fluticasone (Advair Diskus 250/50 Inh) 1 puff BID INH 09/19/16 21:00 10/19/16 20:59 09/27/16 08:27 1 PUFF Gabapentin (Neurontin Cap) 300 mg Q8 PO 09/19/16 22:00 10/19/16 21:59 09/27/16 05:12 300 MG Insulin Glargine (Lantus Solostar Pen) 5 unit BID SC 09/19/16 21:00 10/19/16 20:59 09/27/16 09:35 3 UNIT Albuterol/ Ipratropium (Combivent Respimat Inh) 1 puffs QID INH 09/19/16 21:00 10/19/16 20:59 09/27/16 08:27 1 PUFFS Lactobacillus Acidophilus (Floranex Tab) 1 tab TID PO 09/19/16 21:00 10/19/16 20:59 09/27/16 08:27 1 TAB Loratadine (Claritin Tab) 10 mg MoWeFr@0400 PO 09/20/16 04:00 10/20/16 03:59 09/27/16 05:12 10 MG Lorazepam (Ativan Tab) 0.5 mg TID PO 09/19/16 21:00 10/19/16 20:59 09/27/16 08:23 0.5 MG Metoprolol Succinate (Toprol Xl Tab) 25 mg BID PO 09/19/16 21:00 10/19/16 20:59 09/27/16 08:25 25 MG Senna/Docusate Sodium (Senokot S Tab) 1 tab HS PO 09/19/16 21:00 10/19/16 20:59 09/26/16 21:08 1 TAB Cholecalciferol (Vitamin D Tab) 5,000 inter.unit DAILY PO 09/20/16 09:00 10/20/16 08:59 09/27/16 08:26 5,000 INTER.UNIT Dexamethasone (Decadron Tab) 2 mg DAILY PO 09/20/16 09:00 10/20/16 08:59 09/27/16 08:24 2 MG Pantoprazole Sodium (Protonix Tab) 40 mg SuTuThSa@0800 PO 09/21/16 08:00 10/21/16 07:59 09/26/16 08:43 40 MG Oxycodone HCl (Oxycontin Tab) 30 mg Q12 PO 09/19/16 21:00 10/19/16 20:59 09/27/16 08:23 30 MG Vancomycin HCl (Consult) 1 ea UD PRN N/A 09/19/16 18:00 10/20/16 15:59 Loratadine (Claritin Tab) 10 mg SuTuThSa@0800 PO 09/21/16 08:00 10/21/16 07:59 09/26/16 08:43 10 MG Polyethylene (Miralax Powder Packet) 17 gm MoWeFr@0400 PO 09/20/16 04:00 10/20/16 03:59 09/25/16 05:01 17 GM Polyethylene (Miralax Powder Packet) 17 gm SuTuThSa@0800 PO 09/21/16 08:00 10/21/16 07:59 09/26/16 08:45 17 GM Ferrous Sulfate 325 mg 325 mg DAILY PO 09/20/16 09:00 10/20/16 08:59 09/27/16 08:24 325 MG Piperacillin Sod/ Tazobactam Sod/ Dextrose (Zosyn Iv/D5 100ml) 115 ml @ 28.75 mls/ hr Q12@0400,1600 IV 09/20/16 16:00 09/30/16 03:59 09/27/16 05:08 28.75 MLS/HR Collagenase 1 appln 1 appln DAILY EXT 09/21/16 09:00 10/21/16 08:59 09/26/16 08:45 1 APPLN Acetaminophen/ Empty Bag (Ofirmev Iv/ Empty Iv Bag 100ml) 65 ml @ 260 mls/hr Q6H PRN IV 09/22/16 03:30 10/22/16 03:29 09/22/16 03:55 260 MLS/HR Bisacodyl (Dulcolax Tab) 5 mg DAILY PRN PO 09/22/16 11:45 10/22/16 11:44 09/22/16 13:32 5 MG Oxycodone HCl (Roxicodone Immediate Rel Tab) `1-2 TABS FOR PAIN `1 TAB... Q6H PRN PO 09/26/16 14:00 10/10/16 13:59 09/27/16 08:23 5 MG Albumin Human 25 gm 25 gm TODAY@0800,1200 IV 09/27/16 08:00 09/27/16 18:00 Epoetin Simone 71757 units/ Syringe 0.6 ml @ 1 mls/min TODAY@0800 IV. 09/27/16 08:00 09/27/16 18:00 Vancomycin HCl/ Sodium Chloride (Vancomycin Inj/ Nss 250ml) 260 ml @ 125 mls/hr Fr@1600 IV 09/27/16 16:00 09/27/16 18:05 Last 24 Hours Test 09/26/16 10:53 09/26/16 16:10 09/26/16 20:25 09/27/16 05:34 Bedside Glucose 232 mg/dl 255 mg/dl 155 mg/dl Sodium Level 133 mmol/L Potassium Level 4.6 mmol/L Chloride Level 96 mmol/L Carbon Dioxide Level 24 mmol/L Anion Gap 13.0 mmol/L Creatinine 5.10 mg/dl Est Creatinine Clear Calc Drug Dose 15.5 ml/min Estimated GFR () 13.4 Estimated GFR (Non- 11.6 BUN/Creatinine Ratio 11.9 Random Glucose 112 mg/dl Calcium Level 9.5 mg/dl Phosphorus Level 4.0 mg/dl Iron Level 50 mcg/dl Total Iron Binding Capacity 131 mcg/dl Transferrin 107 mg/dl Transferrin % Saturation 33 % Random Vancomycin Level 24.3 mcg/ml Test 09/27/16 06:32 Bedside Glucose 120 mg/dl Assessment & Plan 56 yo male with esrd with septic knee w/ effusion cxs growing Proteus, intermittent confusion, chronic blair, vascular disease, cardiomyopathy, hx of discitis last year in back, tunneled dialysis catheter. ESRD > for dialysis yesterday. next HD 09/27 or as clinical situation dictates anemia of chronic disease > above criteria for epo septic R knee > vascular surgery and primary service, infectious diseases working w/ pt on plan of care appreciate consult; will follow with you. Care coordinated with Dr. Smith.
[2016-09-27] MEDS: ALBUMIN HUMAN 25% 12.5 GM/50 ML VIAL IV SCH ×2 (18:49→19:00)
[2016-09-27] MEDS: DOCUSATE SODIUM/SENNA 50/8.6MG TAB PO SCH (21:53)
[2016-09-27] MEDS: ATORVASTATIN 40 MG TAB PO SCH (21:53)
[2016-09-27] MEDS: HEPARIN SOD 5000 UNIT/0.5 ML CARP SQ SCH (21:59)
[2016-09-28] VITALS (10 sets, daily range): BP systolic 97–111; BP diastolic 59–76; PULSE 80–95; TEMP 36.7–37.6; O2SAT 91–100
[2016-09-28] MEDS: HYDROmorphone INJ 1 MG/ML SYR IV PRN ×2 (01:43→07:36)
[2016-09-28] MEDS: PIPERACILL/TAZOBAC IV 3.375 GM in DEXTROSE 5% 100ML IV SCH ×2 (04:17→16:48)
[2016-09-28] MEDS: OXYCODONE HCL IR 5 MG TAB (IMMEDIATE RELEASE) PO PRN ×3 (04:24→18:57)
[2016-09-28 05:32] LABS: BASO % 0.3 %; BASO ABS # 0.04 K/uL (0-0.2); COMPLETE YES; EOS % 0.3 %; HEMATOCRIT 29.9 % (42-52); LYMPH % 8.7 %; LYMPH ABS # 1.13 K/uL (1.2-3.4); MEAN CELL VOLUME 92.6 fL (80-100); MEAN CORPUSCULAR HEMOGLOBIN 28.5 pg (25-34); MEAN CORPUSCULAR HGB CONC 30.8 g/dl (32-36); MEAN PLATELET VOLUME 9.2 fL (7.4-10.4); MONO % 9.5 %; NEUT % 79.2 %; PLATELET COUNT 217 K/uL (130-400); RED BLOOD COUNT 3.23 M/uL (4.7-6.1); WHITE BLOOD COUNT 13.05 K/uL (4.8-10.8)
[2016-09-28 06:08] LABS: BUN/CREATININE RATIO 9.6 (10-20); CALCIUM 8.5 mg/dl (8.5-10.1); CREATININE 3.3 mg/dl (0.60-1.40); POTASSIUM 3.9 mmol/L (3.5-5.1)
[2016-09-28] MEDS: GABAPENTIN 300 MG CAP PO SCH ×3 (06:13→21:53)
[2016-09-28] MEDS: HEPARIN SOD 5000 UNIT/0.5 ML CARP SQ SCH ×3 (06:15→21:59)
[2016-09-28] MEDS: PANTOprazole SOD 40 MG TAB PO SCH (07:38)
[2016-09-28] MEDS: COLLAGENASE OINT 30 GM TUBE EXT SCH (07:39)
[2016-09-28] MEDS: FERROUS SULFATE 325 MG TAB PO SCH (07:39)
[2016-09-28] MEDS: CALCIUM ACETATE 667MG GELCAP PO SCH ×3 (07:39→18:57)
[2016-09-28] MEDS: IPRATROPIUM BROMIDE/ALBUTEROL respimat INH INH SCH ×4 (07:40→21:54)
[2016-09-28] MEDS: DEXAMETHASONE 1 MG TAB PO SCH (07:40)
[2016-09-28] MEDS: FLUTICASONE/SALMETEROL 250/50 (ADVAIR) 14 PUFF/1 INHALER INH SCH ×2 (07:40→21:54)
[2016-09-28] MEDS: METOPROLOL SUCC 25MG EXT REL TAB PO SCH ×2 (07:41→21:53)
[2016-09-28] MEDS: LACTOBACILLUS ACIDOPHILUS (FLORANEX) TAB PO SCH ×3 (07:41→21:53)
[2016-09-28] MEDS: POLYETHYLENE (MIRALAX) 17 GM PACK PO SCH (07:41)
[2016-09-28] MEDS: ASPIRIN 81 MG ECTAB PO SCH (07:41)
[2016-09-28] MEDS: CHOLECALCIFEROL 1000 INTER.UNIT TAB PO SCH (07:42)
[2016-09-28] MEDS: LORATADINE 10 MG TAB PO SCH (07:42)
[2016-09-28] MEDS: LORAZEPAM 0.5 MG TAB PO SCH ×3 (09:03→21:52)
[2016-09-28] MEDS: OXYCODONE HCL 10 MG TABCR (OXYCONTIN) PO SCH ×2 (09:03→21:52)
[2016-09-28] MEDS: INSULIN ASPART 100 UNITS/ML 3 ML PEN SC SCH ×4 (09:06→21:55)
[2016-09-28] MEDS: INSULIN GLARGINE SOLOSTAR 100 UNITS/ML 3 ML PEN SC SCH ×2 (09:07→21:59)
--- NOTE | 2016-09-28 09:19 | Progress Note ---
Internal Med Progress Note Date of Service: September 28, 2016. Provider Documentation: SUBJECTIVE: Patient is seen and examined at bedside. Got R AKA yesterday. Complains of pain in Right leg at surgical site. Denies any chest pain, SOB, abd pain, nausea. No other complaints. OBJECTIVE: Vital Signs-as noted below Physical Exam: General Appearance:Chronically ill appearing, no apparent distress Head: normocephalic, Atraumatic Eyes: normal inspection, EOMI, PERRL Neck: supple, Trachea midline Respiratory/Chest: Normal breath sounds, CTA Cardiovascular: S1, S2, No murmur, +Tachycardia Abdomen/GI:Soft, Non tender, Bowel sounds present Extremities/Musculoskelatal:Left and Right AKA. R leg in bandage Neurologic/Psych:AAOX3, grossly no focal neurological deficits Skin: normal color, warm Lab data as noted below. ASSESSMENT & PLAN: SEPSIS Secondary to Right knee infection: S/P R AKA on 09/27/16 Patient is on IV vancomycin for recent MRSA line infection; Has H/O discitis and wound infection. Blood cultures: No growth to date Right knee wound culture: Proteus mirabilis Continue Vanco and Zosyn ID, Orthopedics, Vascular following:Appreciate help Echo: No apparent valvular vegetations. Continue wound care right knee ulcer. X-ray R knee: No signs of osteomyelitis Leukocytosis stable Pain control, Bowel regimen ALTERED MENTAL STATUS Likely metabolic encephalopathy secondary to sepsis. Resolved CHRONIC LEFT VENTRICULAR SYSTOLIC HEART FAILURE LVEF 15-20%. Compensated. No JOSE MARTIN or ARB due to CKD. Continue metoprolol Cardiology on board HYPERTENSION Continue metoprolol succinate. Monitor . CKD V Hemodialysis per Nephrology. Nephrology on board MWF schedule Planned for HD after the surgery today DM II Hgb A1C: 6.3. Continue Lantus, ISS CHRONIC WOUNDS Wounds right knee and right leg. Continue Wound Care DVT Px SQ heparin. (On Hold for Surgery) DISPOSITION Plan to discharge to [facility] when medically cleared PROCEDURES: ECHO: * Limited views were obtained. * There is no evidence of a mass or vegetation. This does not rule out endocarditis. * -- Conclusions -- * Left ventricular systolic function is severely reduced. * Ejection Fraction = 15-20%. * There is severe global hypokinesis of the left ventricle. Vital Signs: Date Time Temp Pulse Resp B/P Pulse Ox O2 Delivery O2 Flow Rate FiO2 09/28/16 07:22 36.9 90 20 102/59 99 Room Air 09/28/16 04:00 Mask 09/28/16 04:00 36.9 89 21 111/76 100 Mask 6.0 09/28/16 00:04 36.9 95 21 101/68 99 Mask 10.0 09/27/16 23:59 Mask 09/27/16 21:15 36.8 95 123/53 09/27/16 21:00 84 100/69 09/27/16 20:45 79 104/75 09/27/16 20:30 89 114/84 09/27/16 20:15 90 110/78 09/27/16 20:00 Room Air 09/27/16 20:00 85 100/62 09/27/16 19:45 81 111/67 09/27/16 19:30 85 103/71 09/27/16 19:15 83 99/65 09/27/16 19:00 85 108/70 09/27/16 18:45 92 112/65 09/27/16 18:30 83 103/60 09/27/16 18:15 82 101/59 09/27/16 18:00 81 109/67 09/27/16 17:45 83 19 100/72 92 09/27/16 17:45 79 110/62 09/27/16 17:38 80 16 113/83 93 09/27/16 17:30 84 105/65 09/27/16 17:15 37.4 71 122/68 09/27/16 16:38 Room Air 09/27/16 16:28 85 23 122/78 100 09/27/16 16:16 83 113/79 100 09/27/16 16:11 89 110/80 99 09/27/16 16:06 88 110/78 100 09/27/16 16:01 89 17 99/85 97 09/27/16 15:55 89 15 116/86 100 09/27/16 15:52 89 14 111/55 98 09/27/16 15:49 36.3 88 20 116/86 100 Nasal Cannula 2 09/27/16 15:46 90 20 09/27/16 15:46 90 20 90 09/27/16 15:45 87 20 123/92 100 09/27/16 15:45 123/92 09/27/16 15:41 88 38 09/27/16 15:41 89 38 100 09/27/16 15:40 88 37 09/27/16 15:40 89 37 130/87 100 09/27/16 15:40 88 37 130/87 100 09/27/16 15:36 89 27 108/88 90 09/27/16 15:36 108/88 09/27/16 15:35 87 20 09/27/16 15:35 90 20 100 09/27/16 15:31 124/88 09/27/16 15:31 89 16 124/88 94 09/27/16 15:30 89 25 09/27/16 15:30 91 25 100 09/27/16 15:25 91 29 09/27/16 15:25 91 29 112/95 99 09/27/16 15:20 92 23 09/27/16 15:20 88 23 123/83 100 09/27/16 15:15 88 24 129/87 91 09/27/16 15:15 84 24 09/27/16 15:11 112/87 09/27/16 15:10 36.3 88 20 112/87 100 Mask 10 09/27/16 15:10 35 09/27/16 15:10 88 35 09/27/16 12:00 Room Air 09/27/16 11:50 37.3 88 20 112/81 95 Room Air Lab Results: Results Past 24 Hours Test 09/27/16 11:48 09/27/16 15:14 09/27/16 16:33 09/27/16 20:44 Range/Units Bedside Glucose 125 164 207 138 70-99 mg/dl Test 09/28/16 05:06 09/28/16 07:02 Range/Units White Blood Count 13.05 4.8-10.8 K/uL Red Blood Count 3.23 4.7-6.1 M/uL Hemoglobin 9.2 14.0-18.0 g/dL Hematocrit 29.9 42-52 % Mean Corpuscular Volume 92.6 80-100 fL Mean Corpuscular Hemoglobin 28.5 25-34 pg Mean Corpuscular Hemoglobin Concent 30.8 32-36 g/dl Platelet Count 217 130-400 K/uL Mean Platelet Volume 9.2 7.4-10.4 fL Neutrophils (%) (Auto) 79.2 % Lymphocytes (%) (Auto) 8.7 % Monocytes (%) (Auto) 9.5 % Eosinophils (%) (Auto) 0.3 % Basophils (%) (Auto) 0.3 % Neutrophils # (Auto) 10.34 1.4-6.5 K/uL Lymphocytes # (Auto) 1.13 1.2-3.4 K/uL Monocytes # (Auto) 1.24 0.11-0.59 K/uL Eosinophils # (Auto) 0.04 0-0.5 K/uL Basophils # (Auto) 0.04 0-0.2 K/uL RDW Standard Deviation 48.6 36.4-46.3 fL RDW Coefficient of Variation 14.3 11.5-14.5 % Immature Granulocyte % (Auto) 2.0 % Immature Granulocyte # (Auto) 0.26 0.00-0.02 K/uL Sodium Level 137 136-145 mmol/L Potassium Level 3.9 3.5-5.1 mmol/L Chloride Level 99 98-107 mmol/L Carbon Dioxide Level 29 21-32 mmol/L Anion Gap 9.0 3-11 mmol/L Blood Urea Nitrogen 32 7-18 mg/dl Creatinine 3.30 0.60-1.40 mg/dl Est Creatinine Clear Calc Drug Dose 23.9 ml/min Estimated GFR () 22.8 Estimated GFR (Non- 19.6 BUN/Creatinine Ratio 9.6 10-20 Random Glucose 80 70-99 mg/dl Calcium Level 8.5 8.5-10.1 mg/dl Bedside Glucose 95 70-99 mg/dl
[2016-09-28] MEDS: DOCUSATE SODIUM/SENNA 50/8.6MG TAB PO SCH (21:53)
[2016-09-28] MEDS: ATORVASTATIN 40 MG TAB PO SCH (21:53)
[2016-09-29] MEDS: OXYCODONE HCL IR 5 MG TAB (IMMEDIATE RELEASE) PO PRN ×3 (01:39→20:29)
[2016-09-29] MEDS: PIPERACILL/TAZOBAC IV 3.375 GM in DEXTROSE 5% 100ML IV SCH ×2 (04:13→15:56)
[2016-09-29] MEDS: HEPARIN SOD 5000 UNIT/0.5 ML CARP SQ SCH (06:00)
[2016-09-29 06:02] LABS: HEMATOCRIT 27.5 % (42-52)
[2016-09-29] MEDS: GABAPENTIN 300 MG CAP PO SCH ×3 (06:23→20:28)
[2016-09-29 06:56] LABS: BUN/CREATININE RATIO 10.6 (10-20); CREATININE 4.8 mg/dl (0.60-1.40); MAGNESIUM 2.5 mg/dl (1.8-2.4)
[2016-09-29 07:42] VITALS: BP 103/72; PULSE 86; TEMP 36.7; O2SAT 94
[2016-09-29] MEDS: POLYETHYLENE (MIRALAX) 17 GM PACK PO SCH (08:00)
[2016-09-29] MEDS: LORAZEPAM 0.5 MG TAB PO SCH ×3 (08:28→20:28)
[2016-09-29] MEDS: DEXAMETHASONE 1 MG TAB PO SCH (08:29)
[2016-09-29] MEDS: CHOLECALCIFEROL 1000 INTER.UNIT TAB PO SCH (08:29)
[2016-09-29] MEDS: OXYCODONE HCL 10 MG TABCR (OXYCONTIN) PO SCH ×2 (08:29→20:29)
[2016-09-29] MEDS: COLLAGENASE OINT 30 GM TUBE EXT SCH (08:31)
[2016-09-29] MEDS: FLUTICASONE/SALMETEROL 250/50 (ADVAIR) 14 PUFF/1 INHALER INH SCH ×2 (08:31→20:26)
[2016-09-29] MEDS: FERROUS SULFATE 325 MG TAB PO SCH (08:31)
[2016-09-29] MEDS: CALCIUM ACETATE 667MG GELCAP PO SCH ×3 (08:31→17:37)
[2016-09-29] MEDS: LORATADINE 10 MG TAB PO SCH (08:32)
[2016-09-29] MEDS: ASPIRIN 81 MG ECTAB PO SCH (08:32)
[2016-09-29] MEDS: IPRATROPIUM BROMIDE/ALBUTEROL respimat INH INH SCH ×4 (08:32→20:26)
[2016-09-29] MEDS: PANTOprazole SOD 40 MG TAB PO SCH (08:32)
[2016-09-29] MEDS: LACTOBACILLUS ACIDOPHILUS (FLORANEX) TAB PO SCH ×3 (08:32→20:28)
[2016-09-29] MEDS: METOPROLOL SUCC 25MG EXT REL TAB PO SCH ×2 (08:32→20:29)
[2016-09-29] MEDS: INSULIN ASPART 100 UNITS/ML 3 ML PEN SC SCH ×4 (08:36→20:23)
[2016-09-29] MEDS: INSULIN GLARGINE SOLOSTAR 100 UNITS/ML 3 ML PEN SC SCH ×2 (08:36→20:24)
[2016-09-29] MEDS ORDERED: NURSING VERBAL MED ORDER ONE (12:45)
[2016-09-29 15:33] VITALS: BP 95/70; PULSE 92; TEMP 36.8; O2SAT 95
--- NOTE | 2016-09-29 15:42 | Progress Note ---
Internal Med Progress Note Date of Service: September 29, 2016. Provider Documentation: SUBJECTIVE: Patient is seen and examined at bedside. States doing well today. Right leg pain is controlled. Denies any chest pain, SOB, abd pain, nausea. No other complaints. Family at bedside. Got dressing changed today. States had hallucinations to Dilaudid overnight. OBJECTIVE: Vital Signs-as noted below Physical Exam: General Appearance:Chronically ill appearing, no apparent distress Head: normocephalic, Atraumatic Eyes: normal inspection, EOMI, PERRL Neck: supple, Trachea midline Respiratory/Chest: Normal breath sounds, CTA Cardiovascular: S1, S2, No murmur Abdomen/GI:Soft, Non tender, Bowel sounds present Extremities/Musculoskelatal:Left and Right AKA. R leg in bandage Neurologic/Psych:AAOX3, grossly no focal neurological deficits Skin: normal color, warm Lab data as noted below. ASSESSMENT & PLAN: SEPSIS Secondary to Right knee infection: S/P R AKA on 09/27/16 Patient is on IV vancomycin for recent MRSA line infection; Has H/O discitis and wound infection. Blood cultures: No growth to date Right knee wound culture: Proteus mirabilis Continue Vanco and Zosyn ID, Orthopedics, Vascular following:Appreciate help Echo: No apparent valvular vegetations. Continue wound care X-ray R knee: No signs of osteomyelitis Leukocytosis stable Pain control, Bowel regimen ANEMIA: Multifactorial: ESRD, Post surgical Hb:8.5 Monitor Hb ALTERED MENTAL STATUS Likely metabolic encephalopathy secondary to sepsis. Resolved CHRONIC LEFT VENTRICULAR SYSTOLIC HEART FAILURE LVEF 15-20%. Compensated. No JOSE MARTIN or ARB due to CKD. Continue metoprolol Cardiology on board HYPERTENSION Continue metoprolol succinate. Monitor . CKD V Hemodialysis per Nephrology. Nephrology on board MWF schedule DM II Hgb A1C: 6.3. Continue Lantus, ISS CHRONIC WOUNDS Wounds right knee and right leg. Continue Wound Care DVT Px SQ heparin on Hold while monitoring for blood loss DISPOSITION Plan to discharge to [facility] when medically stable PROCEDURES: ECHO: * Limited views were obtained. * There is no evidence of a mass or vegetation. This does not rule out endocarditis. * -- Conclusions -- * Left ventricular systolic function is severely reduced. * Ejection Fraction = 15-20%. * There is severe global hypokinesis of the left ventricle. Vital Signs: Date Time Temp Pulse Resp B/P Pulse Ox O2 Delivery O2 Flow Rate FiO2 09/29/16 15:33 36.8 92 22 95/70 95 Room Air 09/29/16 08:00 Room Air 09/29/16 07:42 36.7 86 18 103/72 94 Room Air 09/29/16 00:00 Room Air 09/28/16 23:02 37.2 80 14 109/74 97 Room Air 09/28/16 21:51 80 100/71 09/28/16 16:00 Room Air Lab Results: Results Past 24 Hours Test 09/28/16 17:28 09/28/16 20:36 09/29/16 05:25 09/29/16 08:22 Range/Units Bedside Glucose 274 300 114 70-99 mg/dl Hemoglobin 8.5 14.0-18.0 g/dL Hematocrit 27.5 42-52 % Sodium Level 135 136-145 mmol/L Potassium Level 4.0 3.5-5.1 mmol/L Chloride Level 98 98-107 mmol/L Carbon Dioxide Level 27 21-32 mmol/L Anion Gap 10.0 3-11 mmol/L Blood Urea Nitrogen 52 7-18 mg/dl Creatinine 4.80 0.60-1.40 mg/dl Est Creatinine Clear Calc Drug Dose 14.8 ml/min Estimated GFR () 14.5 Estimated GFR (Non- 12.5 BUN/Creatinine Ratio 10.6 10-20 Random Glucose 99 70-99 mg/dl Calcium Level 9.0 8.5-10.1 mg/dl Magnesium Level 2.5 1.8-2.4 mg/dl Test 09/29/16 12:22 Range/Units Bedside Glucose 209 70-99 mg/dl
[2016-09-29 18:00] LABS: HEMATOCRIT 26.4 % (42-52)
[2016-09-29 20:25] VITALS: BP 98/64; PULSE 81
[2016-09-29] MEDS: DOCUSATE SODIUM/SENNA 50/8.6MG TAB PO SCH (20:28)
[2016-09-29] MEDS: ATORVASTATIN 40 MG TAB PO SCH (20:28)
[2016-09-29 23:21] VITALS: BP 106/71; PULSE 82; TEMP 36.9; O2SAT 94
[2016-09-30] VITALS (21 sets, daily range): BP systolic 89–146; BP diastolic 46–97; PULSE 40–105; TEMP 36.6–36.8; O2SAT 93–97
[2016-09-30] MEDS: PIPERACILL/TAZOBAC IV 3.375 GM in DEXTROSE 5% 100ML IV SCH ×2 (04:17→18:01)
[2016-09-30] MEDS: POLYETHYLENE (MIRALAX) 17 GM PACK PO SCH (04:17)
[2016-09-30] MEDS: LORATADINE 10 MG TAB PO SCH (04:18)
[2016-09-30] MEDS: OXYCODONE HCL IR 5 MG TAB (IMMEDIATE RELEASE) PO PRN ×3 (04:19→19:05)
[2016-09-30 04:27] LABS: BASO % 0.3 %; BASO ABS # 0.04 K/uL (0-0.2); EOS % 0.7 %; HEMATOCRIT 22.3 % (42-52); IG% 2.6 %; LYMPH % 10.2 %; LYMPH ABS # 1.43 K/uL (1.2-3.4); MEAN CELL VOLUME 91.4 fL (80-100); MEAN CORPUSCULAR HEMOGLOBIN 29.1 pg (25-34); MEAN CORPUSCULAR HGB CONC 31.8 g/dl (32-36); MEAN PLATELET VOLUME 9.5 fL (7.4-10.4); MONO % 8.6 %; NEUT % 77.6 %; PLATELET COUNT 252 K/uL (130-400); RED BLOOD COUNT 2.44 M/uL (4.7-6.1); WHITE BLOOD COUNT 14.06 K/uL (4.8-10.8)
[2016-09-30 04:55] LABS: BUN/CREATININE RATIO 10.5 (10-20); CALCIUM 8.5 mg/dl (8.5-10.1); CREATININE 6.3 mg/dl (0.60-1.40); POTASSIUM 4.5 mmol/L (3.5-5.1)
[2016-09-30 05:04] LABS: COMPLETE YES
[2016-09-30] MEDS: GABAPENTIN 300 MG CAP PO SCH ×3 (06:20→21:38)
[2016-09-30] MEDS: HEPARIN SOD 5000 UNIT/0.5 ML CARP SQ SCH ×2 (06:22→13:47)
--- NOTE | 2016-09-30 07:07 | Nephrology Progress Note ---
Nephrology Progress Note Date of Service: September 30, 2016. Subjective 56 yo male with esrd with cardiomyopathy with ef of 15%, chronic blair, vascular disease, who underwent right aka last week. pt has lots of questions and gets easily confused. pt says pain is well controlled and appetite is ok. no sob. Objective Date Time Temp Pulse Resp B/P Pulse Ox O2 Delivery O2 Flow Rate FiO2 09/30/16 00:35 Room Air 09/29/16 23:21 36.9 82 14 106/71 94 Room Air 09/29/16 20:25 81 98/64 09/29/16 15:55 Room Air 09/29/16 15:33 36.8 92 22 95/70 95 Room Air 09/29/16 08:00 Room Air 09/29/16 07:42 36.7 86 18 103/72 94 Room Air Physical Exam: General-aaox3, gets confused easily Eyes-no scleral icterus ENT-mmm Neck-supple Lungs-basilar rales Heart-rrr Abdomen-bs+ s/nt/nd Extremities-bilateral AKAs, right wounds wrapped Neuro-follows commands, confused easily -chronic blair Current Inpatient Medications Medications (Trade) Dose Ordered Sig/Edin Route Start Time Stop Time Status Last Admin Dose Admin Heparin Sodium (Porcine) (Heparin Sq 5000 Unit/0.5ml) 5,000 unit Q8 SQ 09/19/16 22:00 10/19/16 21:59 Future hold 09/30/16 06:22 5,000 UNIT Acetaminophen (Tylenol Tab) 650 mg Q4H PRN PO 09/19/16 16:00 10/19/16 15:59 09/25/16 23:31 650 MG Ondansetron HCl (Zofran Inj) 4 mg Q6H PRN IV 09/19/16 16:00 10/19/16 15:59 Piperacillin Sod/ Tazobactam Sod (Consult) 1 ea UD PRN N/A 09/19/16 16:00 10/19/16 15:59 Insulin Aspart (novoLOG ASPART) SLIDING SCALE If C... ACHS SC 09/19/16 21:00 10/19/16 20:59 09/29/16 20:23 3 UNITS Glucose (Glucose 40% Gel) 15-30 GRAMS 15 GRAMS... UD PRN PO 09/19/16 16:15 10/19/16 16:14 Glucose (Glucose Chew Tab) 4-8 Tablets 4 Tabl... UD PRN PO 09/19/16 16:15 10/19/16 16:14 Dextrose (Dextrose 50% 50ML Syringe) 25-50ML OF 50% DW IV FOR... UD PRN IV 09/19/16 16:15 10/19/16 16:14 Glucagon (Glucagon Inj) 1 mg UD PRN SQ 09/19/16 16:15 10/19/16 16:14 Ascorbic Acid (Vitamin C Tab) 500 mg MoWeFr@0900 PO 09/20/16 09:00 10/20/16 08:59 09/27/16 08:26 500 MG Aspirin (Ecotrin Tab) 81 mg SuTuThSa@0900 PO 09/21/16 09:00 10/21/16 08:59 09/29/16 08:32 81 MG Atorvastatin Calcium (Lipitor Tab) 40 mg HS PO 09/19/16 21:00 10/19/16 20:59 09/29/16 20:28 40 MG Calcium Acetate (Phoslo Cap) 1,334 mg TIDM PO 09/20/16 07:30 10/20/16 07:29 09/29/16 17:37 1,334 MG Salmeterol Xinafoate/ Fluticasone (Advair Diskus 250/50 Inh) 1 puff BID INH 09/19/16 21:00 10/19/16 20:59 09/29/16 20:26 1 PUFF Gabapentin (Neurontin Cap) 300 mg Q8 PO 09/19/16 22:00 10/19/16 21:59 09/30/16 06:20 300 MG Insulin Glargine (Lantus Solostar Pen) 5 unit BID SC 09/19/16 21:00 10/19/16 20:59 09/29/16 20:24 5 UNIT Albuterol/ Ipratropium (Combivent Respimat Inh) 1 puffs QID INH 09/19/16 21:00 10/19/16 20:59 09/29/16 20:26 1 PUFFS Lactobacillus Acidophilus (Floranex Tab) 1 tab TID PO 09/19/16 21:00 10/19/16 20:59 09/29/16 20:28 1 TAB Loratadine (Claritin Tab) 10 mg MoWeFr@0400 PO 09/20/16 04:00 10/20/16 03:59 09/30/16 04:18 10 MG Lorazepam (Ativan Tab) 0.5 mg TID PO 09/19/16 21:00 10/19/16 20:59 09/29/16 20:28 0.5 MG Metoprolol Succinate (Toprol Xl Tab) 25 mg BID PO 09/19/16 21:00 10/19/16 20:59 09/29/16 08:32 25 MG Senna/Docusate Sodium (Senokot S Tab) 1 tab HS PO 09/19/16 21:00 10/19/16 20:59 09/29/16 20:28 1 TAB Cholecalciferol (Vitamin D Tab) 5,000 inter.unit DAILY PO 09/20/16 09:00 10/20/16 08:59 09/29/16 08:29 5,000 INTER.UNIT Dexamethasone (Decadron Tab) 2 mg DAILY PO 09/20/16 09:00 10/20/16 08:59 09/29/16 08:29 2 MG Pantoprazole Sodium (Protonix Tab) 40 mg SuTuThSa@0800 PO 09/21/16 08:00 10/21/16 07:59 09/29/16 08:32 40 MG Oxycodone HCl (Oxycontin Tab) 30 mg Q12 PO 09/19/16 21:00 10/19/16 20:59 09/29/16 20:29 30 MG Vancomycin HCl (Consult) 1 ea UD PRN N/A 09/19/16 18:00 10/20/16 15:59 Loratadine (Claritin Tab) 10 mg SuTuThSa@0800 PO 09/21/16 08:00 10/21/16 07:59 09/29/16 08:32 10 MG Polyethylene (Miralax Powder Packet) 17 gm MoWeFr@0400 PO 09/20/16 04:00 10/20/16 03:59 09/30/16 04:17 17 GM Polyethylene (Miralax Powder Packet) 17 gm SuTuThSa@0800 PO 09/21/16 08:00 10/21/16 07:59 09/28/16 07:41 17 GM Ferrous Sulfate 325 mg 325 mg DAILY PO 09/20/16 09:00 10/20/16 08:59 09/29/16 08:31 325 MG Piperacillin Sod/ Tazobactam Sod/ Dextrose (Zosyn Iv/D5 100ml) 115 ml @ 28.75 mls/ hr Q12@0400,1600 IV 09/20/16 16:00 09/30/16 23:59 09/30/16 04:17 28.75 MLS/HR Collagenase 1 appln 1 appln DAILY EXT 09/21/16 09:00 10/21/16 08:59 09/26/16 08:45 1 APPLN Acetaminophen/ Empty Bag (Ofirmev Iv/ Empty Iv Bag 100ml) 65 ml @ 260 mls/hr Q6H PRN IV 09/22/16 03:30 10/22/16 03:29 09/22/16 03:55 260 MLS/HR Bisacodyl (Dulcolax Tab) 5 mg DAILY PRN PO 09/22/16 11:45 10/22/16 11:44 09/22/16 13:32 5 MG Oxycodone HCl `1-2 TABS FOR PAIN `1 TAB... Q6H PRN PO 09/26/16 14:00 10/10/16 13:59 09/30/16 04:19 10 MG Epoetin Simone/ Syringe (Procrit Inj/ Syringe) 0.6 ml @ 1 mls/min TODAY@0800 IV. 09/30/16 08:00 09/30/16 23:59 Last 24 Hours Test 09/29/16 08:22 09/29/16 12:22 09/29/16 17:07 09/29/16 17:46 Bedside Glucose 114 mg/dl 209 mg/dl 325 mg/dl Hemoglobin 8.1 g/dL Hematocrit 26.4 % Test 09/29/16 20:21 09/30/16 04:20 Bedside Glucose 206 mg/dl White Blood Count 14.06 K/uL Red Blood Count 2.44 M/uL Hemoglobin 7.1 g/dL Hematocrit 22.3 % Mean Corpuscular Volume 91.4 fL Mean Corpuscular Hemoglobin 29.1 pg Mean Corpuscular Hemoglobin Concent 31.8 g/dl Platelet Count 252 K/uL Mean Platelet Volume 9.5 fL Neutrophils (%) (Auto) 77.6 % Lymphocytes (%) (Auto) 10.2 % Monocytes (%) (Auto) 8.6 % Eosinophils (%) (Auto) 0.7 % Basophils (%) (Auto) 0.3 % Neutrophils # (Auto) 10.92 K/uL Lymphocytes # (Auto) 1.43 K/uL Monocytes # (Auto) 1.21 K/uL Eosinophils # (Auto) 0.10 K/uL Basophils # (Auto) 0.04 K/uL RDW Standard Deviation 47.5 fL RDW Coefficient of Variation 14.2 % Immature Granulocyte % (Auto) 2.6 % Immature Granulocyte # (Auto) 0.36 K/uL Sodium Level 136 mmol/L Potassium Level 4.5 mmol/L Chloride Level 99 mmol/L Carbon Dioxide Level 27 mmol/L Anion Gap 10.0 mmol/L Blood Urea Nitrogen 66 mg/dl Creatinine 6.30 mg/dl Est Creatinine Clear Calc Drug Dose 11.3 ml/min Estimated GFR () 10.4 Estimated GFR (Non- 9.0 BUN/Creatinine Ratio 10.5 Random Glucose 117 mg/dl Calcium Level 8.5 mg/dl Random Vancomycin Level 18.2 mcg/ml Assessment & Plan ESRD-for dialysis today. has basilar rales but oxygenating well. 2k bath. uf as blood pressure tolerates. Anemia of renal failure-on procrit. hg levels are trending down and will arrange for 2 units of prbcs on dialysis.
[2016-09-30] MEDS ORDERED: EPOETIN ALFA INJ 12,000 UNITS in SYRINGE 0 ML IV. SCH (08:00)
[2016-09-30] MEDS ORDERED: EPOETIN ALFA 10,000 UNITS/ML VIAL IV. ONE (08:00)
[2016-09-30] MEDS: CALCIUM ACETATE 667MG GELCAP PO SCH ×3 (08:28→18:05)
[2016-09-30] MEDS: FLUTICASONE/SALMETEROL 250/50 (ADVAIR) 14 PUFF/1 INHALER INH SCH ×2 (08:29→21:27)
[2016-09-30] MEDS: IPRATROPIUM BROMIDE/ALBUTEROL respimat INH INH SCH ×4 (08:29→21:27)
[2016-09-30] MEDS: COLLAGENASE OINT 30 GM TUBE EXT SCH (08:29)
[2016-09-30] MEDS: FERROUS SULFATE 325 MG TAB PO SCH (08:31)
[2016-09-30] MEDS: LACTOBACILLUS ACIDOPHILUS (FLORANEX) TAB PO SCH ×3 (08:32→21:33)
[2016-09-30] MEDS: DEXAMETHASONE 1 MG TAB PO SCH (08:32)
[2016-09-30] MEDS: ASCORBIC ACID 500 MG TAB PO SCH (08:33)
[2016-09-30] MEDS: CHOLECALCIFEROL 1000 INTER.UNIT TAB PO SCH (08:34)
--- NOTE | 2016-09-30 08:35 | Anesthesiology Progress Note ---
Anesthesia Post Op Note Date & Time September 30, 2016 at 08:34 Vital Signs Pain Intensity: 8.0 Vital Signs Past 12 Hours Date Time Temp Pulse Resp B/P Pulse Ox O2 Delivery O2 Flow Rate FiO2 09/30/16 07:10 36.6 87 17 103/71 97 Room Air 09/30/16 00:35 Room Air 09/29/16 23:21 36.9 82 14 106/71 94 Room Air Notes Mental Status: alert / awake / arousable, participated in evaluation Pt Amnestic to Procedure: Yes Nausea / Vomiting: adequately controlled Pain: adequately controlled Airway Patency, RR, SpO2: stable & adequate BP & HR: stable & adequate Hydration State: stable & adequate Anesthetic Complications: no major complications apparent
[2016-09-30] MEDS: LORAZEPAM 0.5 MG TAB PO SCH ×3 (08:45→21:39)
[2016-09-30] MEDS: OXYCODONE HCL 10 MG TABCR (OXYCONTIN) PO SCH ×2 (08:46→21:40)
[2016-09-30] MEDS: INSULIN GLARGINE SOLOSTAR 100 UNITS/ML 3 ML PEN SC SCH ×2 (08:52→21:42)
--- NOTE | 2016-09-30 08:59 | Progress Note ---
Progress Note Date of Service: September 30, 2016. Subjective 56 yo m with multiple medical problems, POD #3 after RLE AKA d/t severe R knee infection and sepsis, seen in f/u today. Pt admits pain in RLE stump. Denies any new complaints. Hgb 7.1 today, blood ordered. Problem List Medical Problems: (1) Altered mental status Status: Acute (2) Diabetes mellitus out of control Status: Acute (3) Elevated troponin Status: Acute (4) Elevated troponin Status: Acute (5) Elevated troponin Status: Acute (6) End stage renal failure on dialysis Status: Acute (7) Failure of outpatient treatment Status: Acute (8) Hyperkalemia Status: Acute (9) Hypocalcemia Status: Acute (10) Hypoglycemia Status: Acute (11) Hypokalemia Status: Acute (12) Hyponatremia Status: Acute (13) Hypotension Status: Acute (14) Hypothermia Status: Acute (15) Leukocytosis Status: Acute (16) Mass of spine Status: Acute (17) Opiate overdose Status: Acute (18) Renal failure Status: Acute (19) Renal insufficiency Status: Acute (20) Sepsis Status: Acute (21) Ulcer of toe Status: Acute (22) Ulcers of both lower extremities Status: Acute (23) UTI (urinary tract infection) Status: Acute (24) UTI (urinary tract infection) Status: Acute Objective Vital Signs Vital Signs Past 12 Hours Date Time Temp Pulse Resp B/P Pulse Ox O2 Delivery O2 Flow Rate FiO2 09/30/16 07:10 36.6 87 17 103/71 97 Room Air 09/30/16 00:35 Room Air 09/29/16 23:21 36.9 82 14 106/71 94 Room Air Exam CONST: A&O x3, NAD, pale, chronically ill appearing male EXT: RLE AKA site intact with jacklyn. Mild bloody drainage on dressing. No necrosis, erythema, or ecchymosis noted. + local edema and tenderness. Intake & Output 8-Hour Column 09/29/16 09/30/16 09/30/16 16:00 00:00 08:00 Intake Total 46 ml Output Total 15 ml 20 ml 25 ml Balance -15 ml -20 ml 21 ml 24-Hour Column 09/30/16 08:00 Intake Total 46 ml Output Total 60 ml Balance -14 ml Laboratory and Microbiology Results Past 24 Hours Test 09/29/16 12:22 09/29/16 17:07 09/29/16 17:46 09/29/16 20:21 Range/Units Bedside Glucose 209 325 206 70-99 mg/dl Hemoglobin 8.1 14.0-18.0 g/dL Hematocrit 26.4 42-52 % Test 09/30/16 04:20 Range/Units White Blood Count 14.06 4.8-10.8 K/uL Red Blood Count 2.44 4.7-6.1 M/uL Hemoglobin 7.1 14.0-18.0 g/dL Hematocrit 22.3 42-52 % Mean Corpuscular Volume 91.4 80-100 fL Mean Corpuscular Hemoglobin 29.1 25-34 pg Mean Corpuscular Hemoglobin Concent 31.8 32-36 g/dl Platelet Count 252 130-400 K/uL Mean Platelet Volume 9.5 7.4-10.4 fL Neutrophils (%) (Auto) 77.6 % Lymphocytes (%) (Auto) 10.2 % Monocytes (%) (Auto) 8.6 % Eosinophils (%) (Auto) 0.7 % Basophils (%) (Auto) 0.3 % Neutrophils # (Auto) 10.92 1.4-6.5 K/uL Lymphocytes # (Auto) 1.43 1.2-3.4 K/uL Monocytes # (Auto) 1.21 0.11-0.59 K/uL Eosinophils # (Auto) 0.10 0-0.5 K/uL Basophils # (Auto) 0.04 0-0.2 K/uL RDW Standard Deviation 47.5 36.4-46.3 fL RDW Coefficient of Variation 14.2 11.5-14.5 % Immature Granulocyte % (Auto) 2.6 % Immature Granulocyte # (Auto) 0.36 0.00-0.02 K/uL Sodium Level 136 136-145 mmol/L Potassium Level 4.5 3.5-5.1 mmol/L Chloride Level 99 98-107 mmol/L Carbon Dioxide Level 27 21-32 mmol/L Anion Gap 10.0 3-11 mmol/L Blood Urea Nitrogen 66 7-18 mg/dl Creatinine 6.30 0.60-1.40 mg/dl Est Creatinine Clear Calc Drug Dose 11.3 ml/min Estimated GFR () 10.4 Estimated GFR (Non- 9.0 BUN/Creatinine Ratio 10.5 10-20 Random Glucose 117 70-99 mg/dl Calcium Level 8.5 8.5-10.1 mg/dl Random Vancomycin Level 18.2 mcg/ml ASSESSMENT and PLAN: s/p RLE AKA R knee infection with sepsis Postop anemia Pt anemic at 7.1 this AM. Blood ordered by nephrology. Pt remains stable. Surgical wound looking well, with mild bloody drainage noted. Continue daily dressing changes with telfa or adaptic, then 4x4 and kerlix. Will continue to follow.
[2016-09-30] MEDS: METOPROLOL SUCC 25MG EXT REL TAB PO SCH ×2 (09:00→21:32)
[2016-09-30] MEDS: INSULIN ASPART 100 UNITS/ML 3 ML PEN SC SCH ×4 (09:27→21:44)
--- NOTE | 2016-09-30 13:29 | Pharmacy Progress Note ---
Pharmacy Abx Dose Short Note Date of Service September 30, 2016. Assessment & Plan Assessment 56 year old male receiving Vancomycin + Zosyn for treatment of sepsis secondary to Right Knee Infection. Day # 12 of antimicrobial therapy. Spoke with ID- continue Zosyn for 14 day total duration. Continue Vancomycin indefinitely (duration to be determined by clinical response) Plan Vancomycin * Random level of 18.2 mcg/mL is therapeutic. * Give 750 mg IV X 1 post HD today. * Goal trough level: 15 to 20 mcg/mL * Random level ordered for: 10/02/16 with AM labs. * If HD schedule changes, please re-order lab. Pharmacy will continue to follow and will adjust dose/frequency as necessary. Thank you.
--- NOTE | 2016-09-30 15:06 | Infectious Disease Progress Nt ---
Progress Note Date of Service September 30, 2016. Subjective Pt evaluation today including: conversation w/ patient, physical exam, chart review, lab review, review of studies, conversation w/ software developer consultant, review of inpatient medication list Patient now status post amputation of the right leg. Complaining of expected postoperative pain. Remains afebrile. Continues to tolerate antibiotics. All Other Systems: Reviewed and Negative Medications Current Inpatient Medications Medications (Trade) Dose Ordered Sig/Edin Route Start Time Stop Time Status Last Admin Dose Admin Heparin Sodium (Porcine) (Heparin Sq 5000 Unit/0.5ml) 5,000 unit Q8 SQ 09/19/16 22:00 10/19/16 21:59 Future hold 09/30/16 13:47 5,000 UNIT Acetaminophen (Tylenol Tab) 650 mg Q4H PRN PO 09/19/16 16:00 10/19/16 15:59 09/25/16 23:31 650 MG Ondansetron HCl (Zofran Inj) 4 mg Q6H PRN IV 09/19/16 16:00 10/19/16 15:59 Piperacillin Sod/ Tazobactam Sod (Consult) 1 ea UD PRN N/A 09/19/16 16:00 10/02/16 23:59 Insulin Aspart (novoLOG ASPART) SLIDING SCALE If C... ACHS SC 09/19/16 21:00 10/19/16 20:59 09/30/16 13:05 10 UNITS Glucose (Glucose 40% Gel) 15-30 GRAMS 15 GRAMS... UD PRN PO 09/19/16 16:15 10/19/16 16:14 Glucose (Glucose Chew Tab) 4-8 Tablets 4 Tabl... UD PRN PO 09/19/16 16:15 10/19/16 16:14 Dextrose (Dextrose 50% 50ML Syringe) 25-50ML OF 50% DW IV FOR... UD PRN IV 09/19/16 16:15 10/19/16 16:14 Glucagon (Glucagon Inj) 1 mg UD PRN SQ 09/19/16 16:15 10/19/16 16:14 Ascorbic Acid (Vitamin C Tab) 500 mg MoWeFr@0900 PO 09/20/16 09:00 10/20/16 08:59 09/30/16 08:33 500 MG Aspirin (Ecotrin Tab) 81 mg SuTuThSa@0900 PO 09/21/16 09:00 10/21/16 08:59 09/29/16 08:32 81 MG Atorvastatin Calcium (Lipitor Tab) 40 mg HS PO 09/19/16 21:00 10/19/16 20:59 09/29/16 20:28 40 MG Calcium Acetate (Phoslo Cap) 1,334 mg TIDM PO 09/20/16 07:30 10/20/16 07:29 09/30/16 12:37 1,334 MG Salmeterol Xinafoate/ Fluticasone (Advair Diskus 250/50 Inh) 1 puff BID INH 09/19/16 21:00 10/19/16 20:59 09/30/16 08:29 1 PUFF Gabapentin (Neurontin Cap) 300 mg Q8 PO 09/19/16 22:00 10/19/16 21:59 09/30/16 13:48 300 MG Insulin Glargine (Lantus Solostar Pen) 5 unit BID SC 09/19/16 21:00 10/19/16 20:59 09/30/16 08:52 5 UNIT Albuterol/ Ipratropium (Combivent Respimat Inh) 1 puffs QID INH 09/19/16 21:00 10/19/16 20:59 09/30/16 12:44 1 PUFFS Lactobacillus Acidophilus (Floranex Tab) 1 tab TID PO 09/19/16 21:00 10/19/16 20:59 09/30/16 13:48 1 TAB Loratadine (Claritin Tab) 10 mg MoWeFr@0400 PO 09/20/16 04:00 10/20/16 03:59 09/30/16 04:18 10 MG Lorazepam (Ativan Tab) 0.5 mg TID PO 09/19/16 21:00 10/19/16 20:59 09/30/16 13:47 0.5 MG Metoprolol Succinate (Toprol Xl Tab) 25 mg BID PO 09/19/16 21:00 10/19/16 20:59 09/29/16 08:32 25 MG Senna/Docusate Sodium (Senokot S Tab) 1 tab HS PO 09/19/16 21:00 10/19/16 20:59 09/29/16 20:28 1 TAB Cholecalciferol (Vitamin D Tab) 5,000 inter.unit DAILY PO 09/20/16 09:00 10/20/16 08:59 09/30/16 08:34 5,000 INTER.UNIT Dexamethasone (Decadron Tab) 2 mg DAILY PO 09/20/16 09:00 10/20/16 08:59 09/30/16 08:32 2 MG Pantoprazole Sodium (Protonix Tab) 40 mg SuTuThSa@0800 PO 09/21/16 08:00 10/21/16 07:59 09/29/16 08:32 40 MG Oxycodone HCl (Oxycontin Tab) 30 mg Q12 PO 09/19/16 21:00 10/19/16 20:59 09/30/16 08:46 30 MG Vancomycin HCl (Consult) 1 ea UD PRN N/A 09/19/16 18:00 10/20/16 15:59 Loratadine (Claritin Tab) 10 mg SuTuThSa@0800 PO 09/21/16 08:00 10/21/16 07:59 09/29/16 08:32 10 MG Polyethylene (Miralax Powder Packet) 17 gm MoWeFr@0400 PO 09/20/16 04:00 10/20/16 03:59 09/30/16 04:17 17 GM Polyethylene (Miralax Powder Packet) 17 gm SuTuThSa@0800 PO 09/21/16 08:00 10/21/16 07:59 09/28/16 07:41 17 GM Ferrous Sulfate 325 mg 325 mg DAILY PO 09/20/16 09:00 10/20/16 08:59 09/30/16 08:31 325 MG Piperacillin Sod/ Tazobactam Sod/ Dextrose (Zosyn Iv/D5 100ml) 115 ml @ 28.75 mls/ hr Q12@0400,1600 IV 09/20/16 16:00 10/02/16 23:59 09/30/16 04:17 28.75 MLS/HR Collagenase 1 appln 1 appln DAILY EXT 09/21/16 09:00 10/21/16 08:59 09/26/16 08:45 1 APPLN Acetaminophen/ Empty Bag (Ofirmev Iv/ Empty Iv Bag 100ml) 65 ml @ 260 mls/hr Q6H PRN IV 09/22/16 03:30 10/22/16 03:29 09/22/16 03:55 260 MLS/HR Bisacodyl (Dulcolax Tab) 5 mg DAILY PRN PO 09/22/16 11:45 10/22/16 11:44 09/22/16 13:32 5 MG Oxycodone HCl `1-2 TABS FOR PAIN `1 TAB... Q6H PRN PO 09/26/16 14:00 10/10/16 13:59 09/30/16 12:43 10 MG Epoetin Simone 08399 units/ Syringe 0.6 ml @ 1 mls/min TODAY@0800 IV. 09/30/16 08:00 09/30/16 23:59 Vancomycin HCl/ Sodium Chloride (Vancomycin Inj/ Nss 250ml) 265 ml @ 125 mls/hr TODAY@1800 IV 09/30/16 18:00 09/30/16 22:00 Objective Vital Signs Date Time Temp Pulse Resp B/P Pulse Ox O2 Delivery O2 Flow Rate FiO2 09/30/16 15:00 101 109/60 09/30/16 14:45 50 105/67 09/30/16 14:30 101 89/63 09/30/16 14:10 80 108/80 09/30/16 07:25 Room Air 09/30/16 07:10 36.6 87 17 103/71 97 Room Air 09/30/16 00:35 Room Air 09/29/16 23:21 36.9 82 14 106/71 94 Room Air 09/29/16 20:25 81 98/64 09/29/16 15:55 Room Air 09/29/16 15:33 36.8 92 22 95/70 95 Room Air Physical Exam General Appearance: no apparent distress, + pertinent finding (Chronically ill- appearing) Eyes: normal inspection, EOMI, sclerae normal ENT: normal ENT inspection, pharynx normal Neck: supple, no adenopathy, trachea midline Respiratory/Chest: chest non-tender, lungs clear, normal breath sounds, no respiratory distress Cardiovascular: regular rate, rhythm, no gallop, no murmur Abdomen: normal bowel sounds, non tender, soft, no organomegaly Extremities: + slow capillary refill, + pertinent finding (Status post right AKA) Neurologic/Psychiatric: alert, oriented x 3 Skin: normal color, no rash, + pertinent finding (Surgical dressing intact right leg) Lymphatic: no adenopathy Laboratory Results Last 24 Hours Test 09/29/16 17:07 09/29/16 17:46 09/29/16 20:21 09/30/16 04:20 Bedside Glucose 325 mg/dl 206 mg/dl Hemoglobin 8.1 g/dL 7.1 g/dL Hematocrit 26.4 % 22.3 % White Blood Count 14.06 K/uL Red Blood Count 2.44 M/uL Mean Corpuscular Volume 91.4 fL Mean Corpuscular Hemoglobin 29.1 pg Mean Corpuscular Hemoglobin Concent 31.8 g/dl Platelet Count 252 K/uL Mean Platelet Volume 9.5 fL Neutrophils (%) (Auto) 77.6 % Lymphocytes (%) (Auto) 10.2 % Monocytes (%) (Auto) 8.6 % Eosinophils (%) (Auto) 0.7 % Basophils (%) (Auto) 0.3 % Neutrophils # (Auto) 10.92 K/uL Lymphocytes # (Auto) 1.43 K/uL Monocytes # (Auto) 1.21 K/uL Eosinophils # (Auto) 0.10 K/uL Basophils # (Auto) 0.04 K/uL RDW Standard Deviation 47.5 fL RDW Coefficient of Variation 14.2 % Immature Granulocyte % (Auto) 2.6 % Immature Granulocyte # (Auto) 0.36 K/uL Sodium Level 136 mmol/L Potassium Level 4.5 mmol/L Chloride Level 99 mmol/L Carbon Dioxide Level 27 mmol/L Anion Gap 10.0 mmol/L Blood Urea Nitrogen 66 mg/dl Creatinine 6.30 mg/dl Est Creatinine Clear Calc Drug Dose 11.3 ml/min Estimated GFR () 10.4 Estimated GFR (Non- 9.0 BUN/Creatinine Ratio 10.5 Random Glucose 117 mg/dl Calcium Level 8.5 mg/dl Random Vancomycin Level 18.2 mcg/ml Test 09/30/16 08:04 09/30/16 11:58 Bedside Glucose 159 mg/dl 220 mg/dl Assessment and Plan 56-year-old male with end-stage renal disease on dialysis with longstanding diabetes, now with sepsis and encephalopathy from persistent right knee infection with Proteus. Patient now status post right AKA. Will likely only require another day or 2 of IV antibiotics given that infected area has been removed. Will follow.
--- NOTE | 2016-09-30 16:35 | Progress Note ---
Internal Med Progress Note Date of Service: September 30, 2016. Provider Documentation: SUBJECTIVE: Patient is seen and examined at bedside. Currently getting HD. Received 2 units PRBCs today. Right leg pain is controlled. Denies any chest pain, SOB, abd pain , nausea. No other complaints. OBJECTIVE: Vital Signs-as noted below Physical Exam: General Appearance:Chronically ill appearing, no apparent distress Head: normocephalic, Atraumatic Eyes: normal inspection, EOMI, PERRL Neck: supple, Trachea midline Respiratory/Chest: Normal breath sounds, CTA Cardiovascular: S1, S2, No murmur Abdomen/GI:Soft, Non tender, Bowel sounds present Extremities/Musculoskelatal:Left and Right AKA. R leg in bandage Neurologic/Psych:AAOX3, grossly no focal neurological deficits Skin: normal color, warm Lab data as noted below. ASSESSMENT & PLAN: SEPSIS Secondary to Right knee infection: S/P R AKA on 09/27/16 Patient is on IV vancomycin for recent MRSA line infection; Has H/O discitis and wound infection. Blood cultures: No growth to date Right knee wound culture: Proteus mirabilis Continue Vanco and Zosyn ID, Orthopedics, Vascular following:Appreciate help Echo: No apparent valvular vegetations. Continue wound care X-ray R knee: No signs of osteomyelitis Leukocytosis stable Pain control, Bowel regimen May need 1-2 more days of IV antibiotics per ID ANEMIA: Multifactorial: ESRD, Post surgical Hb:8.5 >>7.1 today Monitor Hb Getting 2 units PRBCs today ALTERED MENTAL STATUS Likely metabolic encephalopathy secondary to sepsis. Resolved CHRONIC LEFT VENTRICULAR SYSTOLIC HEART FAILURE LVEF 15-20%. Compensated. No JOSE MARTIN or ARB due to CKD. Continue metoprolol Cardiology on board HYPERTENSION Continue metoprolol succinate. Monitor . CKD V Hemodialysis per Nephrology. Nephrology on board MWF schedule DM II Hgb A1C: 6.3. Continue Lantus, ISS CHRONIC WOUNDS Wounds right knee and right leg. Continue Wound Care DVT Px SQ heparin on Hold while monitoring for blood loss DISPOSITION Plan to discharge to [facility] when medically stable PROCEDURES: ECHO: * Limited views were obtained. * There is no evidence of a mass or vegetation. This does not rule out endocarditis. * -- Conclusions -- * Left ventricular systolic function is severely reduced. * Ejection Fraction = 15-20%. * There is severe global hypokinesis of the left ventricle. Vital Signs: Date Time Temp Pulse Resp B/P Pulse Ox O2 Delivery O2 Flow Rate FiO2 09/30/16 16:30 65 138/91 09/30/16 16:15 74 131/85 09/30/16 16:00 64 127/76 09/30/16 15:45 83 106/79 09/30/16 15:42 77 123/75 09/30/16 15:30 40 118/46 09/30/16 15:23 47 131/76 09/30/16 15:15 56 94/62 09/30/16 15:00 101 109/60 09/30/16 14:45 50 105/67 09/30/16 14:30 101 89/63 09/30/16 14:10 80 108/80 09/30/16 14:00 36.8 94 135/67 09/30/16 07:25 Room Air 09/30/16 07:10 36.6 87 17 103/71 97 Room Air 09/30/16 00:35 Room Air 09/29/16 23:21 36.9 82 14 106/71 94 Room Air 09/29/16 20:25 81 98/64 Lab Results: Results Past 24 Hours Test 09/29/16 17:07 09/29/16 17:46 09/29/16 20:21 09/30/16 04:20 Range/Units Bedside Glucose 325 206 70-99 mg/dl Hemoglobin 8.1 7.1 14.0-18.0 g/dL Hematocrit 26.4 22.3 42-52 % White Blood Count 14.06 4.8-10.8 K/uL Red Blood Count 2.44 4.7-6.1 M/uL Mean Corpuscular Volume 91.4 80-100 fL Mean Corpuscular Hemoglobin 29.1 25-34 pg Mean Corpuscular Hemoglobin Concent 31.8 32-36 g/dl Platelet Count 252 130-400 K/uL Mean Platelet Volume 9.5 7.4-10.4 fL Neutrophils (%) (Auto) 77.6 % Lymphocytes (%) (Auto) 10.2 % Monocytes (%) (Auto) 8.6 % Eosinophils (%) (Auto) 0.7 % Basophils (%) (Auto) 0.3 % Neutrophils # (Auto) 10.92 1.4-6.5 K/uL Lymphocytes # (Auto) 1.43 1.2-3.4 K/uL Monocytes # (Auto) 1.21 0.11-0.59 K/uL Eosinophils # (Auto) 0.10 0-0.5 K/uL Basophils # (Auto) 0.04 0-0.2 K/uL RDW Standard Deviation 47.5 36.4-46.3 fL RDW Coefficient of Variation 14.2 11.5-14.5 % Immature Granulocyte % (Auto) 2.6 % Immature Granulocyte # (Auto) 0.36 0.00-0.02 K/uL Sodium Level 136 136-145 mmol/L Potassium Level 4.5 3.5-5.1 mmol/L Chloride Level 99 98-107 mmol/L Carbon Dioxide Level 27 21-32 mmol/L Anion Gap 10.0 3-11 mmol/L Blood Urea Nitrogen 66 7-18 mg/dl Creatinine 6.30 0.60-1.40 mg/dl Est Creatinine Clear Calc Drug Dose 11.3 ml/min Estimated GFR () 10.4 Estimated GFR (Non- 9.0 BUN/Creatinine Ratio 10.5 10-20 Random Glucose 117 70-99 mg/dl Calcium Level 8.5 8.5-10.1 mg/dl Random Vancomycin Level 18.2 mcg/ml Test 09/30/16 08:04 09/30/16 11:58 Range/Units Bedside Glucose 159 220 70-99 mg/dl
[2016-09-30] MEDS ORDERED: VANCOMYCIN INJ 750 MG in SODIUM CHLORIDE 0.9% 250ML 250 ML IV SCH (18:00)
[2016-09-30 21:18] LABS: HEMATOCRIT 29.3 % (42-52)
[2016-09-30] MEDS: ATORVASTATIN 40 MG TAB PO SCH (21:35)
[2016-09-30] MEDS: DOCUSATE SODIUM/SENNA 50/8.6MG TAB PO SCH (21:35)
[2016-10-01] MEDS: OXYCODONE HCL IR 5 MG TAB (IMMEDIATE RELEASE) PO PRN ×3 (00:58→14:36)
[2016-10-01] MEDS: PIPERACILL/TAZOBAC IV 3.375 GM in DEXTROSE 5% 100ML IV SCH ×2 (04:11→15:55)
[2016-10-01] MEDS: GABAPENTIN 300 MG CAP PO SCH ×3 (06:11→21:24)
[2016-10-01 07:34] LABS: BASO % 0.3 %; BASO ABS # 0.03 K/uL (0-0.2); COMPLETE YES; EOS % 1.1 %; HEMATOCRIT 28.9 % (42-52); IG% 1.9 %; LYMPH % 13.8 %; LYMPH ABS # 1.53 K/uL (1.2-3.4); MEAN CELL VOLUME 86.8 fL (80-100); MEAN CORPUSCULAR HEMOGLOBIN 28.2 pg (25-34); MEAN CORPUSCULAR HGB CONC 32.5 g/dl (32-36); MEAN PLATELET VOLUME 9.3 fL (7.4-10.4); MONO % 6.8 %; NEUT % 76.1 %; PLATELET COUNT 215 K/uL (130-400); RED BLOOD COUNT 3.33 M/uL (4.7-6.1); WHITE BLOOD COUNT 11.05 K/uL (4.8-10.8)
[2016-10-01 07:50] VITALS: BP 116/73; PULSE 86; TEMP 36.7; O2SAT 95
[2016-10-01 08:15] LABS: BUN/CREATININE RATIO 9.9 (10-20); CALCIUM 8.4 mg/dl (8.5-10.1); CREATININE 4.3 mg/dl (0.60-1.40); POTASSIUM 3.7 mmol/L (3.5-5.1)
[2016-10-01] MEDS: POLYETHYLENE (MIRALAX) 17 GM PACK PO SCH (08:46)
[2016-10-01] MEDS: PANTOprazole SOD 40 MG TAB PO SCH (08:48)
[2016-10-01] MEDS: COLLAGENASE OINT 30 GM TUBE EXT SCH (08:49)
[2016-10-01] MEDS: CALCIUM ACETATE 667MG GELCAP PO SCH ×3 (08:49→18:39)
[2016-10-01] MEDS: LORATADINE 10 MG TAB PO SCH (08:49)
[2016-10-01] MEDS: DEXAMETHASONE 1 MG TAB PO SCH (08:50)
[2016-10-01] MEDS: IPRATROPIUM BROMIDE/ALBUTEROL respimat INH INH SCH ×4 (08:50→21:23)
[2016-10-01] MEDS: FLUTICASONE/SALMETEROL 250/50 (ADVAIR) 14 PUFF/1 INHALER INH SCH ×2 (08:50→21:23)
[2016-10-01] MEDS: LORAZEPAM 0.5 MG TAB PO SCH ×3 (08:50→21:41)
[2016-10-01] MEDS: ASPIRIN 81 MG ECTAB PO SCH (08:51)
[2016-10-01] MEDS: FERROUS SULFATE 325 MG TAB PO SCH (08:52)
[2016-10-01] MEDS: LACTOBACILLUS ACIDOPHILUS (FLORANEX) TAB PO SCH ×3 (08:52→21:24)
[2016-10-01] MEDS: OXYCODONE HCL 10 MG TABCR (OXYCONTIN) PO SCH ×2 (08:52→21:24)
[2016-10-01] MEDS: CHOLECALCIFEROL 1000 INTER.UNIT TAB PO SCH (08:53)
[2016-10-01 08:58] VITALS: BP 113/77; PULSE 74
[2016-10-01] MEDS: METOPROLOL SUCC 25MG EXT REL TAB PO SCH ×2 (08:59→21:24)
[2016-10-01 09:00] VITALS: O2SAT 95
[2016-10-01] MEDS: INSULIN GLARGINE SOLOSTAR 100 UNITS/ML 3 ML PEN SC SCH ×2 (09:02→21:26)
[2016-10-01] MEDS: INSULIN ASPART 100 UNITS/ML 3 ML PEN SC SCH ×4 (09:34→21:25)
--- NOTE | 2016-10-01 14:09 | Progress Note ---
Progress Note Date of Service: October 01, 2016. Subjective 56 yo m with multiple medical problems, POD # 4 after RLE AKA d/t R knee infection, seen in f/u today. Pt states pain well controlled. Denies any new complaints. Hgb increased to 9 after 2 units yesterday. Problem List Medical Problems: (1) Altered mental status Status: Acute (2) Diabetes mellitus out of control Status: Acute (3) Elevated troponin Status: Acute (4) Elevated troponin Status: Acute (5) Elevated troponin Status: Acute (6) End stage renal failure on dialysis Status: Acute (7) Failure of outpatient treatment Status: Acute (8) Hyperkalemia Status: Acute (9) Hypocalcemia Status: Acute (10) Hypoglycemia Status: Acute (11) Hypokalemia Status: Acute (12) Hyponatremia Status: Acute (13) Hypotension Status: Acute (14) Hypothermia Status: Acute (15) Leukocytosis Status: Acute (16) Mass of spine Status: Acute (17) Opiate overdose Status: Acute (18) Renal failure Status: Acute (19) Renal insufficiency Status: Acute (20) Sepsis Status: Acute (21) Ulcer of toe Status: Acute (22) Ulcers of both lower extremities Status: Acute (23) UTI (urinary tract infection) Status: Acute (24) UTI (urinary tract infection) Status: Acute Objective Vital Signs Vital Signs Past 12 Hours Date Time Temp Pulse Resp B/P Pulse Ox O2 Delivery O2 Flow Rate FiO2 10/01/16 09:00 95 Mask 3.0 10/01/16 08:58 74 113/77 10/01/16 08:00 Room Air 10/01/16 07:50 36.7 86 16 116/73 95 Exam CONST: A&O x3, NAD, obese, chronically ill appearing male EXT: RLE AKA site intact with jacklyn. Mild serosan/bloody drainage from center of wound. + local tenderness and edema. No erythema or ecchymosis noted. Intake & Output 8-Hour Column 09/30/16 10/01/16 10/01/16 16:00 00:00 08:00 Intake Total 410 ml 510 ml Output Total 0 ml 1800 ml 25 ml Balance 410 ml -1290 ml -25 ml 24-Hour Column 10/01/16 08:00 Intake Total 920 ml Output Total 1825 ml Balance -905 ml Laboratory and Microbiology Results Past 24 Hours Test 5/15/17 17:00 09/30/16 20:49 09/30/16 20:50 10/01/16 07:12 Range/Units Bedside Glucose 154 277 70-99 mg/dl Hemoglobin 9.5 9.4 14.0-18.0 g/dL Hematocrit 29.3 28.9 42-52 % White Blood Count 11.05 4.8-10.8 K/uL Red Blood Count 3.33 4.7-6.1 M/uL Mean Corpuscular Volume 86.8 80-100 fL Mean Corpuscular Hemoglobin 28.2 25-34 pg Mean Corpuscular Hemoglobin Concent 32.5 32-36 g/dl Platelet Count 215 130-400 K/uL Mean Platelet Volume 9.3 7.4-10.4 fL Neutrophils (%) (Auto) 76.1 % Lymphocytes (%) (Auto) 13.8 % Monocytes (%) (Auto) 6.8 % Eosinophils (%) (Auto) 1.1 % Basophils (%) (Auto) 0.3 % Neutrophils # (Auto) 8.41 1.4-6.5 K/uL Lymphocytes # (Auto) 1.53 1.2-3.4 K/uL Monocytes # (Auto) 0.75 0.11-0.59 K/uL Eosinophils # (Auto) 0.12 0-0.5 K/uL Basophils # (Auto) 0.03 0-0.2 K/uL RDW Standard Deviation 49.9 36.4-46.3 fL RDW Coefficient of Variation 15.6 11.5-14.5 % Immature Granulocyte % (Auto) 1.9 % Immature Granulocyte # (Auto) 0.21 0.00-0.02 K/uL Nucleated RBC Absolute Count (auto) 0.02 0-0 K/uL Nucleated Red Blood Cells % 0.2 % Sodium Level 137 136-145 mmol/L Potassium Level 3.7 3.5-5.1 mmol/L Chloride Level 100 98-107 mmol/L Carbon Dioxide Level 30 21-32 mmol/L Anion Gap 7.0 3-11 mmol/L Blood Urea Nitrogen 43 7-18 mg/dl Creatinine 4.30 0.60-1.40 mg/dl Est Creatinine Clear Calc Drug Dose 18.0 ml/min Estimated GFR () 16.5 Estimated GFR (Non- 14.3 BUN/Creatinine Ratio 9.9 10-20 Random Glucose 105 70-99 mg/dl Calcium Level 8.4 8.5-10.1 mg/dl Test 10/01/16 08:01 Range/Units Bedside Glucose 109 70-99 mg/dl ASSESSMENT and PLAN: s/p RLE AKA Post op anemia- improved Pt improving post op. Continue with dry dressings. Will reeval tomorow.
--- NOTE | 2016-10-01 14:49 | Infectious Disease Progress Nt ---
Progress Note Date of Service October 01, 2016. Subjective Pt evaluation today including: conversation w/ patient, physical exam, chart review, lab review, review of studies, conversation w/ optimization consultant, review of inpatient medication list Pain better controlled today. Offers no new complaints. Remains afebrile. All Other Systems: Reviewed and Negative Medications Current Inpatient Medications Medications (Trade) Dose Ordered Sig/Edin Route Start Time Stop Time Status Last Admin Dose Admin Heparin Sodium (Porcine) (Heparin Sq 5000 Unit/0.5ml) 5,000 unit Q8 SQ 09/19/16 22:00 10/19/16 21:59 Future Hold 09/30/16 13:47 5,000 UNIT Acetaminophen (Tylenol Tab) 650 mg Q4H PRN PO 09/19/16 16:00 10/19/16 15:59 09/25/16 23:31 650 MG Ondansetron HCl (Zofran Inj) 4 mg Q6H PRN IV 09/19/16 16:00 10/19/16 15:59 Piperacillin Sod/ Tazobactam Sod (Consult) 1 ea UD PRN N/A 09/19/16 16:00 10/02/16 23:59 Insulin Aspart (novoLOG ASPART) SLIDING SCALE If C... ACHS SC 09/19/16 21:00 10/19/16 20:59 10/01/16 13:30 10 UNITS Glucose (Glucose 40% Gel) 15-30 GRAMS 15 GRAMS... UD PRN PO 09/19/16 16:15 10/19/16 16:14 Glucose (Glucose Chew Tab) 4-8 Tablets 4 Tabl... UD PRN PO 09/19/16 16:15 10/19/16 16:14 Dextrose (Dextrose 50% 50ML Syringe) 25-50ML OF 50% DW IV FOR... UD PRN IV 09/19/16 16:15 10/19/16 16:14 Glucagon (Glucagon Inj) 1 mg UD PRN SQ 09/19/16 16:15 10/19/16 16:14 Ascorbic Acid (Vitamin C Tab) 500 mg MoWeFr@0900 PO 09/20/16 09:00 10/20/16 08:59 09/30/16 08:33 500 MG Aspirin (Ecotrin Tab) 81 mg SuTuThSa@0900 PO 09/21/16 09:00 6/5/17 08:59 10/01/16 08:51 81 MG Atorvastatin Calcium (Lipitor Tab) 40 mg HS PO 09/19/16 21:00 10/19/16 20:59 09/30/16 21:35 40 MG Calcium Acetate (Phoslo Cap) 1,334 mg TIDM PO 09/20/16 07:30 10/20/16 07:29 10/01/16 13:25 1,334 MG Salmeterol Xinafoate/ Fluticasone (Advair Diskus 250/50 Inh) 1 puff BID INH 09/19/16 21:00 10/19/16 20:59 10/01/16 08:50 1 PUFF Gabapentin (Neurontin Cap) 300 mg Q8 PO 09/19/16 22:00 10/19/16 21:59 10/01/16 13:26 300 MG Insulin Glargine (Lantus Solostar Pen) 5 unit BID SC 09/19/16 21:00 10/19/16 20:59 10/01/16 09:02 5 UNIT Albuterol/ Ipratropium (Combivent Respimat Inh) 1 puffs QID INH 09/19/16 21:00 10/19/16 20:59 10/01/16 13:25 1 PUFFS Lactobacillus Acidophilus (Floranex Tab) 1 tab TID PO 09/19/16 21:00 10/19/16 20:59 10/01/16 13:26 1 TAB Loratadine (Claritin Tab) 10 mg MoWeFr@0400 PO 09/20/16 04:00 10/20/16 03:59 09/30/16 04:18 10 MG Lorazepam (Ativan Tab) 0.5 mg TID PO 09/19/16 21:00 10/19/16 20:59 10/01/16 13:26 0.5 MG Metoprolol Succinate (Toprol Xl Tab) 25 mg BID PO 09/19/16 21:00 10/19/16 20:59 10/01/16 08:59 25 MG Senna/Docusate Sodium (Senokot S Tab) 1 tab HS PO 09/19/16 21:00 10/19/16 20:59 09/30/16 21:35 1 TAB Cholecalciferol (Vitamin D Tab) 5,000 inter.unit DAILY PO 09/20/16 09:00 10/20/16 08:59 10/01/16 08:53 5,000 INTER.UNIT Dexamethasone (Decadron Tab) 2 mg DAILY PO 09/20/16 09:00 10/20/16 08:59 10/01/16 08:50 2 MG Pantoprazole Sodium (Protonix Tab) 40 mg SuTuThSa@0800 PO 09/21/16 08:00 10/21/16 07:59 10/01/16 08:48 40 MG Oxycodone HCl (Oxycontin Tab) 30 mg Q12 PO 09/19/16 21:00 10/19/16 20:59 10/01/16 08:52 30 MG Vancomycin HCl (Consult) 1 ea UD PRN N/A 09/19/16 18:00 10/20/16 15:59 Loratadine (Claritin Tab) 10 mg SuTuThSa@0800 PO 09/21/16 08:00 10/21/16 07:59 10/01/16 08:49 10 MG Polyethylene (Miralax Powder Packet) 17 gm MoWeFr@0400 PO 09/20/16 04:00 10/20/16 03:59 09/30/16 04:17 17 GM Polyethylene (Miralax Powder Packet) 17 gm SuTuThSa@0800 PO 09/21/16 08:00 10/21/16 07:59 10/01/16 08:46 17 GM Ferrous Sulfate 325 mg 325 mg DAILY PO 09/20/16 09:00 10/20/16 08:59 10/01/16 08:52 325 MG Piperacillin Sod/ Tazobactam Sod/ Dextrose (Zosyn Iv/D5 100ml) 115 ml @ 28.75 mls/ hr Q12@0400,1600 IV 09/20/16 16:00 10/02/16 23:59 10/01/16 04:11 28.75 MLS/HR Collagenase 1 appln 1 appln DAILY EXT 09/21/16 09:00 10/21/16 08:59 09/26/16 08:45 1 APPLN Acetaminophen/ Empty Bag (Ofirmev Iv/ Empty Iv Bag 100ml) 65 ml @ 260 mls/hr Q6H PRN IV 09/22/16 03:30 10/22/16 03:29 09/22/16 03:55 260 MLS/HR Bisacodyl (Dulcolax Tab) 5 mg DAILY PRN PO 09/22/16 11:45 10/22/16 11:44 09/22/16 13:32 5 MG Oxycodone HCl (Roxicodone Immediate Rel Tab) `1-2 TABS FOR PAIN `1 TAB... Q6H PRN PO 09/26/16 14:00 10/10/16 13:59 10/01/16 14:36 10 MG Objective Vital Signs Date Time Temp Pulse Resp B/P Pulse Ox O2 Delivery O2 Flow Rate FiO2 10/01/16 09:00 95 Mask 3.0 10/01/16 08:58 74 113/77 10/01/16 08:00 Room Air 10/01/16 07:50 36.7 86 16 116/73 95 10/01/16 00:20 Room Air 09/30/16 23:07 36.7 90 16 116/75 97 Room Air 09/30/16 17:48 36.8 99 146/97 09/30/16 17:30 89 108/58 09/30/16 17:15 99 111/67 09/30/16 17:00 105 115/74 09/30/16 16:45 55 141/92 09/30/16 16:30 65 138/91 09/30/16 16:15 74 131/85 09/30/16 16:00 64 127/76 09/30/16 15:45 83 106/79 09/30/16 15:42 77 123/75 09/30/16 15:30 40 118/46 09/30/16 15:30 Room Air 09/30/16 15:23 47 131/76 09/30/16 15:15 56 94/62 09/30/16 15:00 101 109/60 Physical Exam General Appearance: no apparent distress, + pertinent finding (Chronically ill- appearing) Eyes: normal inspection, sclerae normal ENT: normal ENT inspection, pharynx normal Neck: supple, no adenopathy, trachea midline Respiratory/Chest: lungs clear, normal breath sounds, no respiratory distress Cardiovascular: regular rate, rhythm, no gallop, no murmur Abdomen: normal bowel sounds, non tender, soft, no organomegaly Extremities: non-tender, + pertinent finding (Status post right AKA) Neurologic/Psychiatric: alert, oriented x 3 Skin: normal color, no rash Lymphatic: no adenopathy Laboratory Results Last 24 Hours Test 09/30/16 17:00 09/30/16 20:49 09/30/16 20:50 10/01/16 07:12 Bedside Glucose 154 mg/dl 277 mg/dl Hemoglobin 9.5 g/dL 9.4 g/dL Hematocrit 29.3 % 28.9 % White Blood Count 11.05 K/uL Red Blood Count 3.33 M/uL Mean Corpuscular Volume 86.8 fL Mean Corpuscular Hemoglobin 28.2 pg Mean Corpuscular Hemoglobin Concent 32.5 g/dl Platelet Count 215 K/uL Mean Platelet Volume 9.3 fL Neutrophils (%) (Auto) 76.1 % Lymphocytes (%) (Auto) 13.8 % Monocytes (%) (Auto) 6.8 % Eosinophils (%) (Auto) 1.1 % Basophils (%) (Auto) 0.3 % Neutrophils # (Auto) 8.41 K/uL Lymphocytes # (Auto) 1.53 K/uL Monocytes # (Auto) 0.75 K/uL Eosinophils # (Auto) 0.12 K/uL Basophils # (Auto) 0.03 K/uL RDW Standard Deviation 49.9 fL RDW Coefficient of Variation 15.6 % Immature Granulocyte % (Auto) 1.9 % Immature Granulocyte # (Auto) 0.21 K/uL Nucleated RBC Absolute Count (auto) 0.02 K/uL Nucleated Red Blood Cells % 0.2 % Sodium Level 137 mmol/L Potassium Level 3.7 mmol/L Chloride Level 100 mmol/L Carbon Dioxide Level 30 mmol/L Anion Gap 7.0 mmol/L Blood Urea Nitrogen 43 mg/dl Creatinine 4.30 mg/dl Est Creatinine Clear Calc Drug Dose 18.0 ml/min Estimated GFR () 16.5 Estimated GFR (Non- 14.3 BUN/Creatinine Ratio 9.9 Random Glucose 105 mg/dl Calcium Level 8.4 mg/dl Test 10/01/16 08:01 Bedside Glucose 109 mg/dl Assessment and Plan 56-year-old male with end-stage renal disease on dialysis with longstanding diabetes, now with sepsis and encephalopathy from persistent right knee infection with Proteus. Patient now status post right AKA. Will likely only require another day or 2 of IV antibiotics given that infected area has been removed. Will follow.
[2016-10-01 14:58] VITALS: BP 101/70; PULSE 88; TEMP 36.7; O2SAT 97
--- NOTE | 2016-10-01 15:31 | Progress Note ---
Internal Med Progress Note Date of Service: October 01, 2016. Provider Documentation: SUBJECTIVE: Patient is doing well post operatively s/p Right AKA Pain is controlled on current pain medications. No fever, chills, nausea, vomiting. OBJECTIVE: Vital Signs-as noted below Exam: General Appearance:Chronically ill appearing, no apparent distress Neck: supple Respiratory/Chest: Decreased breath sounds bilaterally Cardiovascular: S1, S2, No murmur Abdomen/GI:Soft, Non tender, Bowel sounds present Extremities/Musculoskelatal:Left and Right AKA. Rt leg in bandage Neurologic/Psych:AAOX3, grossly no focal neurological deficits Lab data as noted below. ASSESSMENT & PLAN: ASSESSMENT & PLAN : STATUS POST SEPSIS Secondary to Right knee infection : S/P Right AKA on 09/27/16 Patient was on IV vancomycin for recent MRSA line infection; Has H/O discitis and wound infection--> Right knee wound culture: Proteus mirabilis -Continue IV Vancomycin and Zosyn per ID - will need 1-2 days of IV antibiotics at least. -ID, Orthopedics, Vascular following -Echo: No apparent valvular vegetations. Blood cx x 2 neg -Continue wound care per surgical team ACUTE BLOOD LOSS ANEMIA S/P SURGERY: Multifactorial: ESRD, Post surgical S/P 2 units of PRBCs -H & H monitoring ALTERED MENTAL STATUS : Resolved Likely metabolic encephalopathy secondary to sepsis. CHRONIC LEFT VENTRICULAR SYSTOLIC HEART FAILURE : LVEF 15-20% --- > Compensated. No JOSE MARTIN or ARB due to CKD. -Continue metoprolol -Cardiology on board HYPERTENSION -Continue metoprolol succinate. -Monitor . CKD V -Hemodialysis per Nephrology. -Nephrology on board -F schedule DM II Hgb A1C: 6.3. -Continue Lantus, ISS CHRONIC WOUNDS Wounds right knee and right leg. -Continue Wound Care DVT Px SQ heparin on Hold while monitoring for blood loss DISPOSITION Plan to discharge to [facility] when medically stable PROCEDURES: ECHO: * Limited views were obtained. * There is no evidence of a mass or vegetation. This does not rule out endocarditis. * -- Conclusions -- * Left ventricular systolic function is severely reduced. * Ejection Fraction = 15-20%. * There is severe global hypokinesis of the left ventricle. Vital Signs: Date Time Temp Pulse Resp B/P Pulse Ox O2 Delivery O2 Flow Rate FiO2 10/01/16 14:58 36.7 88 16 101/70 97 Room Air 10/01/16 09:00 95 Mask 3.0 10/01/16 08:58 74 113/77 10/01/16 08:00 Room Air 10/01/16 07:50 36.7 86 16 116/73 95 10/01/16 00:20 Room Air 09/30/16 23:07 36.7 90 16 116/75 97 Room Air 09/30/16 17:48 36.8 99 146/97 09/30/16 17:30 89 108/58 09/30/16 17:15 99 111/67 09/30/16 17:00 105 115/74 09/30/16 16:45 55 141/92 09/30/16 16:30 65 138/91 09/30/16 16:15 74 131/85 09/30/16 16:00 64 127/76 09/30/16 15:45 83 106/79 09/30/16 15:42 77 123/75 09/30/16 15:30 40 118/46 09/30/16 15:30 Room Air 09/30/16 15:23 47 131/76 Lab Results: Results Past 24 Hours Test 09/30/16 17:00 09/30/16 20:49 09/30/16 20:50 10/01/16 07:12 Range/Units Bedside Glucose 154 277 70-99 mg/dl Hemoglobin 9.5 9.4 14.0-18.0 g/dL Hematocrit 29.3 28.9 42-52 % White Blood Count 11.05 4.8-10.8 K/uL Red Blood Count 3.33 4.7-6.1 M/uL Mean Corpuscular Volume 86.8 80-100 fL Mean Corpuscular Hemoglobin 28.2 25-34 pg Mean Corpuscular Hemoglobin Concent 32.5 32-36 g/dl Platelet Count 215 130-400 K/uL Mean Platelet Volume 9.3 7.4-10.4 fL Neutrophils (%) (Auto) 76.1 % Lymphocytes (%) (Auto) 13.8 % Monocytes (%) (Auto) 6.8 % Eosinophils (%) (Auto) 1.1 % Basophils (%) (Auto) 0.3 % Neutrophils # (Auto) 8.41 1.4-6.5 K/uL Lymphocytes # (Auto) 1.53 1.2-3.4 K/uL Monocytes # (Auto) 0.75 0.11-0.59 K/uL Eosinophils # (Auto) 0.12 0-0.5 K/uL Basophils # (Auto) 0.03 0-0.2 K/uL RDW Standard Deviation 49.9 36.4-46.3 fL RDW Coefficient of Variation 15.6 11.5-14.5 % Immature Granulocyte % (Auto) 1.9 % Immature Granulocyte # (Auto) 0.21 0.00-0.02 K/uL Nucleated RBC Absolute Count (auto) 0.02 0-0 K/uL Nucleated Red Blood Cells % 0.2 % Sodium Level 137 136-145 mmol/L Potassium Level 3.7 3.5-5.1 mmol/L Chloride Level 100 98-107 mmol/L Carbon Dioxide Level 30 21-32 mmol/L Anion Gap 7.0 3-11 mmol/L Blood Urea Nitrogen 43 7-18 mg/dl Creatinine 4.30 0.60-1.40 mg/dl Est Creatinine Clear Calc Drug Dose 18.0 ml/min Estimated GFR () 16.5 Estimated GFR (Non- 14.3 BUN/Creatinine Ratio 9.9 10-20 Random Glucose 105 70-99 mg/dl Calcium Level 8.4 8.5-10.1 mg/dl Test 10/01/16 08:01 Range/Units Bedside Glucose 109 70-99 mg/dl
--- NOTE | 2016-10-01 15:45 | Nephrology Progress Note ---
Nephrology Progress Note Date of Service: October 01, 2016. Subjective 56 yo male with esrd with cardiomyopathy with ef of 15%, chronic blair, vascular disease, who underwent right aka last week. Patient is surrounded by family. He is less confused than previously reported today. He is appropriately oriented. States that his appetite is improving. is seated comfortably and pain is well controlled per patients. believes that previous confusion may have been attributed to dilauded. no SOB. not on O2. No chest pain. Objective Date Time Temp Pulse Resp B/P Pulse Ox O2 Delivery O2 Flow Rate FiO2 10/01/16 14:58 36.7 88 16 101/70 97 Room Air 10/01/16 09:00 95 Mask 3.0 10/01/16 08:58 74 113/77 10/01/16 08:00 Room Air 10/01/16 07:50 36.7 86 16 116/73 95 10/01/16 00:20 Room Air 09/30/16 23:07 36.7 90 16 116/75 97 Room Air 09/30/16 17:48 36.8 99 146/97 09/30/16 17:30 89 108/58 09/30/16 17:15 99 111/67 09/30/16 17:00 105 115/74 09/30/16 16:45 55 141/92 09/30/16 16:30 65 138/91 09/30/16 16:15 74 131/85 09/30/16 16:00 64 127/76 09/30/16 15:45 83 106/79 09/30/16 15:42 77 123/75 Physical Exam: General-aaox3 not confused at the moment Eyes-no scleral icterus ENT-mmm Neck-supple Lungs-basilar rales Heart-rrr Abdomen-bs+ s/nt/nd Extremities-bilateral AKAs, right wounds wrapped Neuro-follows commands, confused easily -chronic blair Current Inpatient Medications Medications (Trade) Dose Ordered Sig/Edin Route Start Time Stop Time Status Last Admin Dose Admin Heparin Sodium (Porcine) (Heparin Sq 5000 Unit/0.5ml) 5,000 unit Q8 SQ 09/19/16 22:00 10/19/16 21:59 Future Hold 09/30/16 13:47 5,000 UNIT Acetaminophen (Tylenol Tab) 650 mg Q4H PRN PO 09/19/16 16:00 6/3/17 15:59 09/25/16 23:31 650 MG Ondansetron HCl (Zofran Inj) 4 mg Q6H PRN IV 09/19/16 16:00 10/19/16 15:59 Piperacillin Sod/ Tazobactam Sod (Consult) 1 ea UD PRN N/A 09/19/16 16:00 10/02/16 23:59 Insulin Aspart (novoLOG ASPART) SLIDING SCALE If C... ACHS SC 09/19/16 21:00 10/19/16 20:59 10/01/16 13:30 10 UNITS Glucose (Glucose 40% Gel) 15-30 GRAMS 15 GRAMS... UD PRN PO 09/19/16 16:15 10/19/16 16:14 Glucose (Glucose Chew Tab) 4-8 Tablets 4 Tabl... UD PRN PO 09/19/16 16:15 10/19/16 16:14 Dextrose (Dextrose 50% 50ML Syringe) 25-50ML OF 50% DW IV FOR... UD PRN IV 09/19/16 16:15 10/19/16 16:14 Glucagon (Glucagon Inj) 1 mg UD PRN SQ 09/19/16 16:15 10/19/16 16:14 Ascorbic Acid (Vitamin C Tab) 500 mg MoWeFr@0900 PO 09/20/16 09:00 10/20/16 08:59 09/30/16 08:33 500 MG Aspirin (Ecotrin Tab) 81 mg SuTuThSa@0900 PO 09/21/16 09:00 10/21/16 08:59 10/01/16 08:51 81 MG Atorvastatin Calcium (Lipitor Tab) 40 mg HS PO 09/19/16 21:00 10/19/16 20:59 09/30/16 21:35 40 MG Calcium Acetate (Phoslo Cap) 1,334 mg TIDM PO 09/20/16 07:30 10/20/16 07:29 10/01/16 13:25 1,334 MG Salmeterol Xinafoate/ Fluticasone (Advair Diskus 250/50 Inh) 1 puff BID INH 09/19/16 21:00 10/19/16 20:59 10/01/16 08:50 1 PUFF Gabapentin (Neurontin Cap) 300 mg Q8 PO 09/19/16 22:00 10/19/16 21:59 10/01/16 13:26 300 MG Insulin Glargine (Lantus Solostar Pen) 5 unit BID SC 09/19/16 21:00 10/19/16 20:59 10/01/16 09:02 5 UNIT Albuterol/ Ipratropium (Combivent Respimat Inh) 1 puffs QID INH 09/19/16 21:00 10/19/16 20:59 10/01/16 13:25 1 PUFFS Lactobacillus Acidophilus (Floranex Tab) 1 tab TID PO 09/19/16 21:00 10/19/16 20:59 10/01/16 13:26 1 TAB Loratadine (Claritin Tab) 10 mg MoWeFr@0400 PO 09/20/16 04:00 10/20/16 03:59 09/30/16 04:18 10 MG Lorazepam (Ativan Tab) 0.5 mg TID PO 09/19/16 21:00 10/19/16 20:59 10/01/16 13:26 0.5 MG Metoprolol Succinate (Toprol Xl Tab) 25 mg BID PO 09/19/16 21:00 10/19/16 20:59 10/01/16 08:59 25 MG Senna/Docusate Sodium (Senokot S Tab) 1 tab HS PO 09/19/16 21:00 10/19/16 20:59 09/30/16 21:35 1 TAB Cholecalciferol (Vitamin D Tab) 5,000 inter.unit DAILY PO 09/20/16 09:00 10/20/16 08:59 10/01/16 08:53 5,000 INTER.UNIT Dexamethasone (Decadron Tab) 2 mg DAILY PO 09/20/16 09:00 10/20/16 08:59 10/01/16 08:50 2 MG Pantoprazole Sodium (Protonix Tab) 40 mg SuTuThSa@0800 PO 09/21/16 08:00 10/21/16 07:59 10/01/16 08:48 40 MG Oxycodone HCl (Oxycontin Tab) 30 mg Q12 PO 09/19/16 21:00 6/3/17 20:59 10/01/16 08:52 30 MG Vancomycin HCl (Consult) 1 ea UD PRN N/A 09/19/16 18:00 10/20/16 15:59 Loratadine (Claritin Tab) 10 mg SuTuThSa@0800 PO 09/21/16 08:00 10/21/16 07:59 10/01/16 08:49 10 MG Polyethylene (Miralax Powder Packet) 17 gm MoWeFr@0400 PO 09/20/16 04:00 10/20/16 03:59 09/30/16 04:17 17 GM Polyethylene (Miralax Powder Packet) 17 gm SuTuThSa@0800 PO 09/21/16 08:00 10/21/16 07:59 10/01/16 08:46 17 GM Ferrous Sulfate 325 mg 325 mg DAILY PO 09/20/16 09:00 10/20/16 08:59 10/01/16 08:52 325 MG Piperacillin Sod/ Tazobactam Sod/ Dextrose (Zosyn Iv/D5 100ml) 115 ml @ 28.75 mls/ hr Q12@0400,1600 IV 09/20/16 16:00 10/02/16 23:59 10/01/16 04:11 28.75 MLS/HR Collagenase 1 appln 1 appln DAILY EXT 09/21/16 09:00 10/21/16 08:59 09/26/16 08:45 1 APPLN Acetaminophen/ Empty Bag (Ofirmev Iv/ Empty Iv Bag 100ml) 65 ml @ 260 mls/hr Q6H PRN IV 09/22/16 03:30 10/22/16 03:29 09/22/16 03:55 260 MLS/HR Bisacodyl (Dulcolax Tab) 5 mg DAILY PRN PO 09/22/16 11:45 10/22/16 11:44 09/22/16 13:32 5 MG Oxycodone HCl (Roxicodone Immediate Rel Tab) `1-2 TABS FOR PAIN `1 TAB... Q6H PRN PO 09/26/16 14:00 10/10/16 13:59 10/01/16 14:36 10 MG Last 24 Hours Test 09/30/16 17:00 09/30/16 20:49 09/30/16 20:50 10/01/16 07:12 Bedside Glucose 154 mg/dl 277 mg/dl Hemoglobin 9.5 g/dL 9.4 g/dL Hematocrit 29.3 % 28.9 % White Blood Count 11.05 K/uL Red Blood Count 3.33 M/uL Mean Corpuscular Volume 86.8 fL Mean Corpuscular Hemoglobin 28.2 pg Mean Corpuscular Hemoglobin Concent 32.5 g/dl Platelet Count 215 K/uL Mean Platelet Volume 9.3 fL Neutrophils (%) (Auto) 76.1 % Lymphocytes (%) (Auto) 13.8 % Monocytes (%) (Auto) 6.8 % Eosinophils (%) (Auto) 1.1 % Basophils (%) (Auto) 0.3 % Neutrophils # (Auto) 8.41 K/uL Lymphocytes # (Auto) 1.53 K/uL Monocytes # (Auto) 0.75 K/uL Eosinophils # (Auto) 0.12 K/uL Basophils # (Auto) 0.03 K/uL RDW Standard Deviation 49.9 fL RDW Coefficient of Variation 15.6 % Immature Granulocyte % (Auto) 1.9 % Immature Granulocyte # (Auto) 0.21 K/uL Nucleated RBC Absolute Count (auto) 0.02 K/uL Nucleated Red Blood Cells % 0.2 % Sodium Level 137 mmol/L Potassium Level 3.7 mmol/L Chloride Level 100 mmol/L Carbon Dioxide Level 30 mmol/L Anion Gap 7.0 mmol/L Blood Urea Nitrogen 43 mg/dl Creatinine 4.30 mg/dl Est Creatinine Clear Calc Drug Dose 18.0 ml/min Estimated GFR () 16.5 Estimated GFR (Non- 14.3 BUN/Creatinine Ratio 9.9 Random Glucose 105 mg/dl Calcium Level 8.4 mg/dl Test 10/01/16 08:01 Bedside Glucose 109 mg/dl Assessment & Plan ESRD-for dialysis tomorrow and on // schedule or as clinical condition dictates. with UF as tolerated by BP. potassium good at 3.7. volume status improving. Anemia of renal failure-on procrit and received 2 units pRBC's. Hgb 9.4. Will continue to follow trends and transfuse prn. This patient was seen and treated with direct collaboration with Dr. Flores. Thank you for the opportunity to participate in this patient's care. Appreciate the Consult. ATTENDING NOTE: I performed a history and physical examination of the patient, including specifically on history- pt is more alert, on physical exam-basilar rales, right leg wrapped, and my impression and plan are ESRD-plan on dialysis --. volume status acceptable. . I have discussed the patient's management with Edwina Muhammad PA-C, Please refer to above note for the documented findings and plan of care. Uriel Oncu DO
[2016-10-01 21:15] VITALS: BP 111/75; PULSE 87
[2016-10-01] MEDS: DOCUSATE SODIUM/SENNA 50/8.6MG TAB PO SCH (21:24)
[2016-10-01] MEDS: ATORVASTATIN 40 MG TAB PO SCH (21:24)
[2016-10-01 23:00] VITALS: BP 114/73; PULSE 88; TEMP 36.9; O2SAT 95
[2016-10-02] VITALS (18 sets, daily range): BP systolic 81–135; BP diastolic 57–98; PULSE 64–102; TEMP 36.6–37.1; O2SAT 90–97
[2016-10-02] MEDS: OXYCODONE HCL IR 5 MG TAB (IMMEDIATE RELEASE) PO PRN ×3 (02:45→19:03)
[2016-10-02] MEDS: POLYETHYLENE (MIRALAX) 17 GM PACK PO SCH (04:00)
[2016-10-02] MEDS: PIPERACILL/TAZOBAC IV 3.375 GM in DEXTROSE 5% 100ML IV SCH ×2 (04:22→19:03)
[2016-10-02] MEDS: LORATADINE 10 MG TAB PO SCH (04:23)
[2016-10-02] MEDS: GABAPENTIN 300 MG CAP PO SCH ×3 (06:26→21:39)
[2016-10-02] MEDS ORDERED: EPOETIN ALFA 10,000 UNITS/ML VIAL IV. SCH (08:00)
--- NOTE | 2016-10-02 08:47 | Nephrology Progress Note ---
Nephrology Progress Note Date of Service: October 02, 2016. Subjective 56 yo male with esrd with cardiomyopathy with ef of 15%, chronic blair, vascular disease, who underwent right aka last week. Patient is being repositioned by staff for comfort. Patient expresses distress over the reality that he will likely not walk again. not confused. upon movement became SOB and used O2 for comfort. no nausea/vomiting/chest pain. Objective Date Time Temp Pulse Resp B/P Pulse Ox O2 Delivery O2 Flow Rate FiO2 10/02/16 08:10 90 Mask 3.0 10/02/16 08:05 36.6 93 16 110/73 90 Mask 3.0 10/02/16 06:37 36.7 84 16 131/98 93 Room Air 10/02/16 00:45 Room Air 10/01/16 23:00 36.9 88 18 114/73 95 Room Air 10/01/16 21:15 87 111/75 10/01/16 15:30 Room Air 10/01/16 14:58 36.7 88 16 101/70 97 Room Air 10/01/16 09:00 95 Mask 3.0 10/01/16 08:58 74 113/77 Physical Exam: General-aaox3 not confused at the moment Eyes-no scleral icterus ENT-mmm Neck-supple Lungs-reduced at bases Heart-rrr Abdomen-bs+ s/nt/nd Extremities-bilateral AKAs, right wounds wrapped Neuro-follows commands, confused easily -chronic blair Current Inpatient Medications Medications (Trade) Dose Ordered Sig/Edin Route Start Time Stop Time Status Last Admin Dose Admin Heparin Sodium (Porcine) (Heparin Sq 5000 Unit/0.5ml) 5,000 unit Q8 SQ 09/19/16 22:00 10/19/16 21:59 Future Hold 09/30/16 13:47 5,000 UNIT Acetaminophen (Tylenol Tab) 650 mg Q4H PRN PO 09/19/16 16:00 10/19/16 15:59 09/25/16 23:31 650 MG Ondansetron HCl (Zofran Inj) 4 mg Q6H PRN IV 09/19/16 16:00 10/19/16 15:59 Piperacillin Sod/ Tazobactam Sod (Consult) 1 ea UD PRN N/A 09/19/16 16:00 5/17/17 23:59 Insulin Aspart (novoLOG ASPART) SLIDING SCALE If C... ACHS SC 09/19/16 21:00 10/19/16 20:59 10/01/16 21:25 2 UNITS Glucose (Glucose 40% Gel) 15-30 GRAMS 15 GRAMS... UD PRN PO 09/19/16 16:15 10/19/16 16:14 Glucose (Glucose Chew Tab) 4-8 Tablets 4 Tabl... UD PRN PO 09/19/16 16:15 10/19/16 16:14 Dextrose (Dextrose 50% 50ML Syringe) 25-50ML OF 50% DW IV FOR... UD PRN IV 09/19/16 16:15 10/19/16 16:14 Glucagon (Glucagon Inj) 1 mg UD PRN SQ 09/19/16 16:15 10/19/16 16:14 Ascorbic Acid (Vitamin C Tab) 500 mg MoWeFr@0900 PO 09/20/16 09:00 10/20/16 08:59 09/30/16 08:33 500 MG Aspirin (Ecotrin Tab) 81 mg SuTuThSa@0900 PO 09/21/16 09:00 10/21/16 08:59 10/01/16 08:51 81 MG Atorvastatin Calcium (Lipitor Tab) 40 mg HS PO 09/19/16 21:00 10/19/16 20:59 10/01/16 21:24 40 MG Calcium Acetate (Phoslo Cap) 1,334 mg TIDM PO 09/20/16 07:30 10/20/16 07:29 10/01/16 18:39 1,334 MG Salmeterol Xinafoate/ Fluticasone (Advair Diskus 250/50 Inh) 1 puff BID INH 09/19/16 21:00 10/19/16 20:59 10/01/16 21:23 1 PUFF Gabapentin (Neurontin Cap) 300 mg Q8 PO 09/19/16 22:00 10/19/16 21:59 10/02/16 06:26 300 MG Insulin Glargine (Lantus Solostar Pen) 5 unit BID SC 09/19/16 21:00 10/19/16 20:59 10/01/16 21:26 5 UNIT Albuterol/ Ipratropium (Combivent Respimat Inh) 1 puffs QID INH 09/19/16 21:00 10/19/16 20:59 10/01/16 21:23 1 PUFFS Lactobacillus Acidophilus (Floranex Tab) 1 tab TID PO 09/19/16 21:00 10/19/16 20:59 10/01/16 21:24 1 TAB Loratadine (Claritin Tab) 10 mg MoWeFr@0400 PO 09/20/16 04:00 10/20/16 03:59 10/02/16 04:23 10 MG Lorazepam (Ativan Tab) 0.5 mg TID PO 09/19/16 21:00 10/19/16 20:59 10/01/16 21:41 0.5 MG Metoprolol Succinate (Toprol Xl Tab) 25 mg BID PO 09/19/16 21:00 10/19/16 20:59 10/01/16 21:24 25 MG Senna/Docusate Sodium (Senokot S Tab) 1 tab HS PO 09/19/16 21:00 10/19/16 20:59 10/01/16 21:24 1 TAB Cholecalciferol (Vitamin D Tab) 5,000 inter.unit DAILY PO 09/20/16 09:00 10/20/16 08:59 10/01/16 08:53 5,000 INTER.UNIT Dexamethasone (Decadron Tab) 2 mg DAILY PO 09/20/16 09:00 10/20/16 08:59 10/01/16 08:50 2 MG Pantoprazole Sodium (Protonix Tab) 40 mg SuTuThSa@0800 PO 09/21/16 08:00 10/21/16 07:59 10/01/16 08:48 40 MG Oxycodone HCl (Oxycontin Tab) 30 mg Q12 PO 09/19/16 21:00 10/19/16 20:59 10/01/16 21:24 30 MG Vancomycin HCl (Consult) 1 ea UD PRN N/A 09/19/16 18:00 10/20/16 15:59 Loratadine (Claritin Tab) 10 mg SuTuThSa@0800 PO 09/21/16 08:00 10/21/16 07:59 10/01/16 08:49 10 MG Polyethylene (Miralax Powder Packet) 17 gm MoWeFr@0400 PO 09/20/16 04:00 10/20/16 03:59 09/30/16 04:17 17 GM Polyethylene (Miralax Powder Packet) 17 gm SuTuThSa@0800 PO 09/21/16 08:00 10/21/16 07:59 10/01/16 08:46 17 GM Ferrous Sulfate 325 mg 325 mg DAILY PO 09/20/16 09:00 10/20/16 08:59 10/01/16 08:52 325 MG Piperacillin Sod/ Tazobactam Sod/ Dextrose (Zosyn Iv/D5 100ml) 115 ml @ 28.75 mls/ hr Q12@0400,1600 IV 09/20/16 16:00 10/02/16 23:59 10/02/16 04:22 28.75 MLS/HR Collagenase 1 appln 1 appln DAILY EXT 09/21/16 09:00 10/21/16 08:59 09/26/16 08:45 1 APPLN Acetaminophen/ Empty Bag (Ofirmev Iv/ Empty Iv Bag 100ml) 65 ml @ 260 mls/hr Q6H PRN IV 09/22/16 03:30 10/22/16 03:29 09/22/16 03:55 260 MLS/HR Bisacodyl (Dulcolax Tab) 5 mg DAILY PRN PO 09/22/16 11:45 10/22/16 11:44 09/22/16 13:32 5 MG Oxycodone HCl (Roxicodone Immediate Rel Tab) `1-2 TABS FOR PAIN `1 TAB... Q6H PRN PO 09/26/16 14:00 10/10/16 13:59 10/02/16 02:45 10 MG Epoetin Simone (Procrit Inj) 10,000 units TODAY@0800 IV. 10/02/16 08:00 10/02/16 18:00 Albumin Human (Albumin 25%) 12.5 gm TODAY@0800,0900 IV 10/02/16 08:00 10/02/16 18:00 Last 24 Hours Test 10/01/16 12:13 10/01/16 16:59 10/01/16 20:38 10/02/16 04:49 Bedside Glucose 258 mg/dl 212 mg/dl 191 mg/dl Random Vancomycin Level 23.8 mcg/ml Assessment & Plan ESRD-for dialysis today and on m// schedule or as clinical condition dictates. with UF as tolerated by BP. potassium good at 3.7. volume status improving. Anemia of renal failure-on procrit and received 2 units pRBC's. Hgb 9.4. Will continue to follow trends and transfuse prn. This patient was seen and treated with direct collaboration with Dr. Flores. Thank you for the opportunity to participate in this patient's care. Appreciate the Consult. ATTENDING NOTE: I performed a history and physical examination of the patient, including specifically on history- pt continues to be more alert, on physical exam-rales at bases, wound wrapped, and my impression and plan are ESRD-for dialysis today. had blood transfusion on friday. on procrit with dialysis and binders to help control phosphorus. I have discussed the patient's management with Edwina Muhammad PA-C, Please refer to above note for the documented findings and plan of care. Uriel Flores DO
[2016-10-02] MEDS: METOPROLOL SUCC 25MG EXT REL TAB PO SCH ×2 (09:00→21:28)
[2016-10-02] MEDS: FLUTICASONE/SALMETEROL 250/50 (ADVAIR) 14 PUFF/1 INHALER INH SCH ×2 (09:00→21:28)
[2016-10-02] MEDS: ALBUMIN HUMAN 25% 12.5 GM/50 ML VIAL IV SCH ×2 (09:00→14:30)
[2016-10-02] MEDS: CALCIUM ACETATE 667MG GELCAP PO SCH ×3 (09:00→19:01)
[2016-10-02] MEDS: COLLAGENASE OINT 30 GM TUBE EXT SCH (09:00)
[2016-10-02] MEDS: IPRATROPIUM BROMIDE/ALBUTEROL respimat INH INH SCH ×4 (09:01→21:28)
[2016-10-02] MEDS: LORAZEPAM 0.5 MG TAB PO SCH ×3 (09:02→21:28)
[2016-10-02] MEDS: DEXAMETHASONE 1 MG TAB PO SCH (09:03)
[2016-10-02] MEDS: FERROUS SULFATE 325 MG TAB PO SCH (09:03)
[2016-10-02] MEDS: LACTOBACILLUS ACIDOPHILUS (FLORANEX) TAB PO SCH ×3 (09:03→21:40)
[2016-10-02] MEDS: OXYCODONE HCL 10 MG TABCR (OXYCONTIN) PO SCH ×2 (09:03→21:27)
[2016-10-02] MEDS: ASCORBIC ACID 500 MG TAB PO SCH (09:06)
[2016-10-02] MEDS: CHOLECALCIFEROL 1000 INTER.UNIT TAB PO SCH (09:07)
[2016-10-02 09:25] LABS: HEMATOCRIT 28.1 % (42-52); MEAN CELL VOLUME 88.1 fL (80-100); MEAN CORPUSCULAR HEMOGLOBIN 28.5 pg (25-34); MEAN CORPUSCULAR HGB CONC 32.4 g/dl (32-36); MEAN PLATELET VOLUME 8.8 fL (7.4-10.4); PLATELET COUNT 228 K/uL (130-400); RED BLOOD COUNT 3.19 M/uL (4.7-6.1)
[2016-10-02 10:01] LABS: BASO ABS # 0.21 K/uL (0-0.2); BASOPHIL % 1.7 % (0-2); COMPLETE YES; EOSINOPHIL % 1.7 %; LYMPH ABS # 1.93 K/uL (1.2-3.4); LYMPHOCYTE % 15.7 %; NEUTROPHILS % 73.9 %
[2016-10-02] MEDS: INSULIN GLARGINE SOLOSTAR 100 UNITS/ML 3 ML PEN SC SCH ×2 (10:11→21:36)
[2016-10-02] MEDS: INSULIN ASPART 100 UNITS/ML 3 ML PEN SC SCH ×4 (10:12→21:35)
[2016-10-02 10:15] LABS: BUN/CREATININE RATIO 10.5 (10-20); CALCIUM 8.4 mg/dl (8.5-10.1); CREATININE 5.6 mg/dl (0.60-1.40); POTASSIUM 3.9 mmol/L (3.5-5.1)
--- NOTE | 2016-10-02 12:19 | Progress Note ---
Internal Med Progress Note Date of Service: October 02, 2016. Provider Documentation: SUBJECTIVE: Patient is doing well post operatively s/p Right AKA. Pain is controlled on current pain medications. No fever, chills, nausea, vomiting. OBJECTIVE: Vital Signs-as noted below Exam: General Appearance:Chronically ill appearing, no apparent distress Neck: supple Respiratory/Chest: Decreased breath sounds bilaterally Cardiovascular: S1, S2, No murmur Abdomen/GI:Soft, Non tender, Bowel sounds present Extremities/Musculoskelatal:Left and Right AKA. Rt leg in bandage Neurologic/Psych:AAOX3, grossly no focal neurological deficits Lab data as noted below. ASSESSMENT & PLAN: ASSESSMENT & PLAN : STATUS POST SEPSIS Secondary to Right knee infection : S/P Right AKA on 09/27/16 Patient was on IV vancomycin for recent MRSA line infection; Has H/O discitis and wound infection--> Right knee wound culture: Proteus mirabilis -Continue IV Vancomycin and Zosyn per ID - will need 1-2 days of IV antibiotics at least. -ID, Orthopedics, Vascular following -Echo: No apparent valvular vegetations. Blood cx x 2 neg -Continue wound care per surgical team ACUTE BLOOD LOSS ANEMIA S/P SURGERY: Multifactorial: ESRD, Post surgical S/P 2 units of PRBCs -H & H monitoring- 9.1 stable -Monitor outpatient ALTERED MENTAL STATUS : Resolved Likely metabolic encephalopathy secondary to sepsis. CHRONIC LEFT VENTRICULAR SYSTOLIC HEART FAILURE : LVEF 15-20% --- > Compensated. No JOSE MARTIN or ARB due to CKD. -Continue metoprolol -Cardiology on board HYPERTENSION -Continue metoprolol succinate. -Monitor . CKD V -Hemodialysis per Nephrology. -Nephrology on board -MWF schedule DM II Hgb A1C: 6.3. -Continue Lantus, ISS CHRONIC WOUNDS Wounds right knee and right leg. -Continue Wound Care DVT Px SQ heparin on Hold while monitoring for blood loss DISPOSITION Plan to discharge to [facility] once stable. Still needs 1-2 days of IV antibiotics per ID. PROCEDURES: ECHO: * Limited views were obtained. * There is no evidence of a mass or vegetation. This does not rule out endocarditis. * -- Conclusions -- * Left ventricular systolic function is severely reduced. * Ejection Fraction = 15-20%. * There is severe global hypokinesis of the left ventricle. Vital Signs: Date Time Temp Pulse Resp B/P Pulse Ox O2 Delivery O2 Flow Rate FiO2 10/02/16 08:10 Mask 3.0 10/02/16 08:10 90 Mask 3.0 10/02/16 08:05 36.6 93 16 110/73 90 Mask 3.0 10/02/16 06:37 36.7 84 16 131/98 93 Room Air 10/02/16 00:45 Room Air 10/01/16 23:00 36.9 88 18 114/73 95 Room Air 10/01/16 21:15 87 111/75 10/01/16 15:30 Room Air 10/01/16 14:58 36.7 88 16 101/70 97 Room Air Lab Results: Results Past 24 Hours Test 10/01/16 16:59 10/01/16 20:38 10/02/16 04:49 10/02/16 09:13 Range/Units Bedside Glucose 212 191 70-99 mg/dl Random Vancomycin Level 23.8 mcg/ml White Blood Count 12.30 4.8-10.8 K/uL Red Blood Count 3.19 4.7-6.1 M/uL Hemoglobin 9.1 14.0-18.0 g/dL Hematocrit 28.1 42-52 % Mean Corpuscular Volume 88.1 80-100 fL Mean Corpuscular Hemoglobin 28.5 25-34 pg Mean Corpuscular Hemoglobin Concent 32.4 32-36 g/dl Platelet Count 228 130-400 K/uL Mean Platelet Volume 8.8 7.4-10.4 fL RDW Standard Deviation 49.2 36.4-46.3 fL RDW Coefficient of Variation 15.1 11.5-14.5 % Nucleated RBC Absolute Count (auto) 0.02 0-0 K/uL Neutrophils % (Manual) 73.9 % Lymphocytes % (Manual) 15.7 % Monocytes % (Manual) 7.0 % Eosinophils % (Manual) 1.7 % Basophils % (Manual) 1.7 0-2 % Nucleated Red Blood Cells % 0.2 % Neutrophils # (Manual) 9.09 1.4-6.5 K/uL Total Absolute Neutrophils 9.09 1.4-6.5 K/uL Lymphocytes # (Manual) 1.93 1.2-3.4 K/uL Total Absolute Lymphocytes 1.93 1.2-3.4 K/uL Monocytes # (Manual) 0.86 0.11-0.59 K/uL Eosinophils # (Manual) 0.21 0-0.5 K/uL Basophils # (Manual) 0.21 0-0.2 K/uL Red Blood Cell Morphology Unremarkable Sodium Level 134 136-145 mmol/L Potassium Level 3.9 3.5-5.1 mmol/L Chloride Level 95 98-107 mmol/L Carbon Dioxide Level 30 21-32 mmol/L Anion Gap 9.0 3-11 mmol/L Blood Urea Nitrogen 59 7-18 mg/dl Creatinine 5.60 0.60-1.40 mg/dl Est Creatinine Clear Calc Drug Dose 13.8 ml/min Estimated GFR () 12.0 Estimated GFR (Non- 10.4 BUN/Creatinine Ratio 10.5 10-20 Random Glucose 113 70-99 mg/dl Calcium Level 8.4 8.5-10.1 mg/dl
--- NOTE | 2016-10-02 13:24 | Progress Note ---
Progress Note Date of Service: October 02, 2016. Subjective No complaints about stump. Worried about getting prosthetics for his amp sites Problem List Medical Problems: (1) Altered mental status Status: Acute (2) Diabetes mellitus out of control Status: Acute (3) Elevated troponin Status: Acute (4) Elevated troponin Status: Acute (5) Elevated troponin Status: Acute (6) End stage renal failure on dialysis Status: Acute (7) Failure of outpatient treatment Status: Acute (8) Hyperkalemia Status: Acute (9) Hypocalcemia Status: Acute (10) Hypoglycemia Status: Acute (11) Hypokalemia Status: Acute (12) Hyponatremia Status: Acute (13) Hypotension Status: Acute (14) Hypothermia Status: Acute (15) Leukocytosis Status: Acute (16) Mass of spine Status: Acute (17) Opiate overdose Status: Acute (18) Renal failure Status: Acute (19) Renal insufficiency Status: Acute (20) Sepsis Status: Acute (21) Ulcer of toe Status: Acute (22) Ulcers of both lower extremities Status: Acute (23) UTI (urinary tract infection) Status: Acute (24) UTI (urinary tract infection) Status: Acute Objective Vital Signs Vital Signs Past 12 Hours Date Time Temp Pulse Resp B/P Pulse Ox O2 Delivery O2 Flow Rate FiO2 10/02/16 08:10 Mask 3.0 10/02/16 08:10 90 Mask 3.0 10/02/16 08:05 36.6 93 16 110/73 90 Mask 3.0 10/02/16 06:37 36.7 84 16 131/98 93 Room Air Exam Awake and alert VSS Stump with small amount of old bloody drainage. No erythema Non tender Intake & Output 8-Hour Column 10/01/16 10/02/16 10/02/16 16:00 00:00 08:00 Intake Total 120 ml 163 ml Output Total 25 ml 40 ml 50 ml Balance 95 ml -40 ml 113 ml 24-Hour Column 10/02/16 08:00 Intake Total 283 ml Output Total 115 ml Balance 168 ml Laboratory and Microbiology Results Past 24 Hours Test 10/01/16 16:59 10/01/16 20:38 10/02/16 04:49 10/02/16 08:06 Range/Units Bedside Glucose 212 191 138 70-99 mg/dl Random Vancomycin Level 23.8 mcg/ml Test 10/02/16 09:13 10/02/16 11:56 Range/Units White Blood Count 12.30 4.8-10.8 K/uL Red Blood Count 3.19 4.7-6.1 M/uL Hemoglobin 9.1 14.0-18.0 g/dL Hematocrit 28.1 42-52 % Mean Corpuscular Volume 88.1 80-100 fL Mean Corpuscular Hemoglobin 28.5 25-34 pg Mean Corpuscular Hemoglobin Concent 32.4 32-36 g/dl Platelet Count 228 130-400 K/uL Mean Platelet Volume 8.8 7.4-10.4 fL RDW Standard Deviation 49.2 36.4-46.3 fL RDW Coefficient of Variation 15.1 11.5-14.5 % Nucleated RBC Absolute Count (auto) 0.02 0-0 K/uL Neutrophils % (Manual) 73.9 % Lymphocytes % (Manual) 15.7 % Monocytes % (Manual) 7.0 % Eosinophils % (Manual) 1.7 % Basophils % (Manual) 1.7 0-2 % Nucleated Red Blood Cells % 0.2 % Neutrophils # (Manual) 9.09 1.4-6.5 K/uL Total Absolute Neutrophils 9.09 1.4-6.5 K/uL Lymphocytes # (Manual) 1.93 1.2-3.4 K/uL Total Absolute Lymphocytes 1.93 1.2-3.4 K/uL Monocytes # (Manual) 0.86 0.11-0.59 K/uL Eosinophils # (Manual) 0.21 0-0.5 K/uL Basophils # (Manual) 0.21 0-0.2 K/uL Red Blood Cell Morphology Unremarkable Sodium Level 134 136-145 mmol/L Potassium Level 3.9 3.5-5.1 mmol/L Chloride Level 95 98-107 mmol/L Carbon Dioxide Level 30 21-32 mmol/L Anion Gap 9.0 3-11 mmol/L Blood Urea Nitrogen 59 7-18 mg/dl Creatinine 5.60 0.60-1.40 mg/dl Est Creatinine Clear Calc Drug Dose 13.8 ml/min Estimated GFR () 12.0 Estimated GFR (Non- 10.4 BUN/Creatinine Ratio 10.5 10-20 Random Glucose 113 70-99 mg/dl Calcium Level 8.4 8.5-10.1 mg/dl Bedside Glucose 213 70-99 mg/dl Imp: Post right AKA Plan: Will need vigorous rehab if he has any chance of using prosthetics. Not sure he can tolerate that level of physical therapy.
[2016-10-02] MEDS: HEPARIN SOD 5000 UNIT/0.5 ML CARP SQ SCH ×2 (14:27→21:42)
--- NOTE | 2016-10-02 15:57 | Pharmacy Progress Note ---
Pharmacy Abx Dose Short Note Date of Service October 02, 2016. Assessment & Plan Assessment 56 year old male receiving Vancomycin + Zosyn for treatment of sepsis secondary to Right Knee Infection. Day # 14 of antimicrobial therapy. Patient is s/p R AKA - per ID (10/01), continue antibiotics another 1-2 days Plan Vancomycin * Random level of 23.8 mcg/mL is slightly supratherapeutic (pre-HD level) * Give 500 mg IV X 1 post HD today. * Goal trough level: 15 to 20 mcg/mL * Plan to continue M-W- HD * No further random levels have been ordered since therapy will likely d/c on Zosyn * Continue 3.375g IV every 12 hours for HD Pharmacy will continue to follow and will adjust dose/frequency as necessary. Thank you.
--- NOTE | 2016-10-02 17:12 | Infectious Disease Progress Nt ---
Progress Note Date of Service October 02, 2016. Subjective Pt evaluation today including: conversation w/ patient, physical exam, chart review, lab review, review of studies, conversation w/ product support consultant, review of inpatient medication list Patient feeling better with less right leg pain. No chest pain or shortness of breath. Remains afebrile. All Other Systems: Reviewed and Negative Medications Current Inpatient Medications Medications (Trade) Dose Ordered Sig/Edin Route Start Time Stop Time Status Last Admin Dose Admin Heparin Sodium (Porcine) (Heparin Sq 5000 Unit/0.5ml) 5,000 unit Q8 SQ 09/19/16 22:00 10/19/16 21:59 Future hold 10/02/16 14:27 5,000 UNIT Acetaminophen (Tylenol Tab) 650 mg Q4H PRN PO 09/19/16 16:00 10/19/16 15:59 09/25/16 23:31 650 MG Ondansetron HCl (Zofran Inj) 4 mg Q6H PRN IV 09/19/16 16:00 10/19/16 15:59 Piperacillin Sod/ Tazobactam Sod (Consult) 1 ea UD PRN N/A 09/19/16 16:00 10/02/16 23:59 Insulin Aspart (novoLOG ASPART) SLIDING SCALE If C... ACHS SC 09/19/16 21:00 10/19/16 20:59 10/02/16 13:43 9 UNITS Glucose (Glucose 40% Gel) 15-30 GRAMS 15 GRAMS... UD PRN PO 09/19/16 16:15 10/19/16 16:14 Glucose (Glucose Chew Tab) 4-8 Tablets 4 Tabl... UD PRN PO 09/19/16 16:15 10/19/16 16:14 Dextrose (Dextrose 50% 50ML Syringe) 25-50ML OF 50% DW IV FOR... UD PRN IV 09/19/16 16:15 10/19/16 16:14 Glucagon (Glucagon Inj) 1 mg UD PRN SQ 09/19/16 16:15 10/19/16 16:14 Ascorbic Acid (Vitamin C Tab) 500 mg MoWeFr@0900 PO 09/20/16 09:00 10/20/16 08:59 10/02/16 09:06 500 MG Aspirin (Ecotrin Tab) 81 mg SuTuThSa@0900 PO 09/21/16 09:00 10/21/16 08:59 10/01/16 08:51 81 MG Atorvastatin Calcium (Lipitor Tab) 40 mg HS PO 09/19/16 21:00 10/19/16 20:59 10/01/16 21:24 40 MG Calcium Acetate (Phoslo Cap) 1,334 mg TIDM PO 09/20/16 07:30 10/20/16 07:29 10/02/16 12:46 1,334 MG Salmeterol Xinafoate/ Fluticasone (Advair Diskus 250/50 Inh) 1 puff BID INH 09/19/16 21:00 10/19/16 20:59 10/02/16 09:00 1 PUFF Gabapentin (Neurontin Cap) 300 mg Q8 PO 09/19/16 22:00 10/19/16 21:59 10/02/16 13:45 300 MG Insulin Glargine (Lantus Solostar Pen) 5 unit BID SC 09/19/16 21:00 10/19/16 20:59 10/02/16 10:11 5 UNIT Albuterol/ Ipratropium (Combivent Respimat Inh) 1 puffs QID INH 09/19/16 21:00 10/19/16 20:59 10/02/16 13:39 1 PUFFS Lactobacillus Acidophilus (Floranex Tab) 1 tab TID PO 09/19/16 21:00 10/19/16 20:59 10/02/16 13:45 1 TAB Loratadine (Claritin Tab) 10 mg MoWeFr@0400 PO 09/20/16 04:00 10/20/16 03:59 10/02/16 04:23 10 MG Lorazepam (Ativan Tab) 0.5 mg TID PO 09/19/16 21:00 10/19/16 20:59 10/02/16 14:00 0.5 MG Metoprolol Succinate (Toprol Xl Tab) 25 mg BID PO 09/19/16 21:00 10/19/16 20:59 10/01/16 21:24 25 MG Senna/Docusate Sodium (Senokot S Tab) 1 tab HS PO 09/19/16 21:00 10/19/16 20:59 10/01/16 21:24 1 TAB Cholecalciferol (Vitamin D Tab) 5,000 inter.unit DAILY PO 09/20/16 09:00 10/20/16 08:59 10/02/16 09:07 5,000 INTER.UNIT Dexamethasone (Decadron Tab) 2 mg DAILY PO 09/20/16 09:00 10/20/16 08:59 10/02/16 09:03 2 MG Pantoprazole Sodium (Protonix Tab) 40 mg SuTuThSa@0800 PO 09/21/16 08:00 10/21/16 07:59 10/01/16 08:48 40 MG Oxycodone HCl (Oxycontin Tab) 30 mg Q12 PO 09/19/16 21:00 10/19/16 20:59 10/02/16 09:03 30 MG Vancomycin HCl (Consult) 1 ea UD PRN N/A 09/19/16 18:00 10/20/16 15:59 Loratadine (Claritin Tab) 10 mg SuTuThSa@0800 PO 09/21/16 08:00 10/21/16 07:59 10/01/16 08:49 10 MG Polyethylene (Miralax Powder Packet) 17 gm MoWeFr@0400 PO 09/20/16 04:00 10/20/16 03:59 09/30/16 04:17 17 GM Polyethylene (Miralax Powder Packet) 17 gm SuTuThSa@0800 PO 09/21/16 08:00 10/21/16 07:59 10/01/16 08:46 17 GM Ferrous Sulfate 325 mg 325 mg DAILY PO 09/20/16 09:00 10/20/16 08:59 10/02/16 09:03 325 MG Piperacillin Sod/ Tazobactam Sod/ Dextrose (Zosyn Iv/D5 100ml) 115 ml @ 28.75 mls/ hr Q12@0400,1600 IV 09/20/16 16:00 10/03/16 23:59 10/02/16 04:22 28.75 MLS/HR Collagenase 1 appln 1 appln DAILY EXT 09/21/16 09:00 10/21/16 08:59 09/26/16 08:45 1 APPLN Acetaminophen/ Empty Bag (Ofirmev Iv/ Empty Iv Bag 100ml) 65 ml @ 260 mls/hr Q6H PRN IV 09/22/16 03:30 10/22/16 03:29 09/22/16 03:55 260 MLS/HR Bisacodyl (Dulcolax Tab) 5 mg DAILY PRN PO 09/22/16 11:45 10/22/16 11:44 09/22/16 13:32 5 MG Oxycodone HCl (Roxicodone Immediate Rel Tab) `1-2 TABS FOR PAIN `1 TAB... Q6H PRN PO 09/26/16 14:00 10/10/16 13:59 10/02/16 12:51 10 MG Epoetin Simone (Procrit Inj) 10,000 units TODAY@0800 IV. 10/02/16 08:00 10/02/16 18:00 10/02/16 16:53 10,000 UNITS Albumin Human 12.5 gm 12.5 gm TODAY@0800,0900 IV 10/02/16 08:00 10/02/16 18:00 10/02/16 14:30 12.5 GM Vancomycin HCl/ Sodium Chloride (Vancomycin Inj/ Nss 250ml) 260 ml @ 125 mls/hr 1800 IV 10/02/16 18:00 10/02/16 23:59 Objective Vital Signs Date Time Temp Pulse Resp B/P Pulse Ox O2 Delivery O2 Flow Rate FiO2 10/02/16 17:00 83 107/58 10/02/16 16:30 80 94/63 10/02/16 16:15 88 87/70 10/02/16 16:00 80 85/65 10/02/16 15:45 86 91/58 10/02/16 15:30 87 98/66 10/02/16 15:15 83 81/58 10/02/16 15:00 64 95/57 10/02/16 14:45 94 99/68 10/02/16 14:30 96 123/76 10/02/16 14:13 92 116/78 10/02/16 14:05 36.8 94 135/67 10/02/16 08:10 Mask 3.0 10/02/16 08:10 90 Mask 3.0 10/02/16 08:05 36.6 93 16 110/73 90 Mask 3.0 10/02/16 06:37 36.7 84 16 131/98 93 Room Air 10/02/16 00:45 Room Air 10/01/16 23:00 36.9 88 18 114/73 95 Room Air 10/01/16 21:15 87 111/75 Physical Exam General Appearance: no apparent distress, + pertinent finding ( Chronically ill-appearing) Eyes: normal inspection, sclerae normal ENT: normal ENT inspection, hearing grossly normal, pharynx normal Neck: supple, no adenopathy, trachea midline Respiratory/Chest: lungs clear, normal breath sounds, no respiratory distress Cardiovascular: regular rate, rhythm, no gallop, no murmur Abdomen: normal bowel sounds, non tender, soft, no organomegaly Extremities: non-tender, + slow capillary refill Neurologic/Psychiatric: alert, oriented x 3 Skin: normal color, warm/dry, no rash Laboratory Results Last 24 Hours Test 10/01/16 20:38 10/02/16 04:49 10/02/16 08:06 10/02/16 09:13 Bedside Glucose 191 mg/dl 138 mg/dl Random Vancomycin Level 23.8 mcg/ml White Blood Count 12.30 K/uL Red Blood Count 3.19 M/uL Hemoglobin 9.1 g/dL Hematocrit 28.1 % Mean Corpuscular Volume 88.1 fL Mean Corpuscular Hemoglobin 28.5 pg Mean Corpuscular Hemoglobin Concent 32.4 g/dl Platelet Count 228 K/uL Mean Platelet Volume 8.8 fL RDW Standard Deviation 49.2 fL RDW Coefficient of Variation 15.1 % Nucleated RBC Absolute Count (auto) 0.02 K/uL Neutrophils % (Manual) 73.9 % Lymphocytes % (Manual) 15.7 % Monocytes % (Manual) 7.0 % Eosinophils % (Manual) 1.7 % Basophils % (Manual) 1.7 % Nucleated Red Blood Cells % 0.2 % Neutrophils # (Manual) 9.09 K/uL Total Absolute Neutrophils 9.09 K/uL Lymphocytes # (Manual) 1.93 K/uL Total Absolute Lymphocytes 1.93 K/uL Monocytes # (Manual) 0.86 K/uL Eosinophils # (Manual) 0.21 K/uL Basophils # (Manual) 0.21 K/uL Red Blood Cell Morphology Unremarkable Sodium Level 134 mmol/L Potassium Level 3.9 mmol/L Chloride Level 95 mmol/L Carbon Dioxide Level 30 mmol/L Anion Gap 9.0 mmol/L Blood Urea Nitrogen 59 mg/dl Creatinine 5.60 mg/dl Est Creatinine Clear Calc Drug Dose 13.8 ml/min Estimated GFR () 12.0 Estimated GFR (Non- 10.4 BUN/Creatinine Ratio 10.5 Random Glucose 113 mg/dl Calcium Level 8.4 mg/dl Test 10/02/16 11:56 Bedside Glucose 213 mg/dl Assessment and Plan 56-year-old male with end-stage renal disease on dialysis with longstanding diabetes, now with sepsis and encephalopathy from persistent right knee infection with Proteus. Patient now status post right AKA. Will likely only require another day or 2 of IV antibiotics given that infected area has been removed. Will follow.
[2016-10-02] MEDS ORDERED: VANCOMYCIN INJ 500 MG in SODIUM CHLORIDE 0.9% 250ML 250 ML IV SCH (18:00)
[2016-10-02] MEDS: DOCUSATE SODIUM/SENNA 50/8.6MG TAB PO SCH (21:39)
[2016-10-02] MEDS: ATORVASTATIN 40 MG TAB PO SCH (21:40)
[2016-10-03] MEDS: PIPERACILL/TAZOBAC IV 3.375 GM in DEXTROSE 5% 100ML IV SCH (03:48)
[2016-10-03] MEDS: OXYCODONE HCL IR 5 MG TAB (IMMEDIATE RELEASE) PO PRN ×2 (03:55→13:48)
[2016-10-03] MEDS: HEPARIN SOD 5000 UNIT/0.5 ML CARP SQ SCH ×3 (06:09→21:47)
[2016-10-03] MEDS: GABAPENTIN 300 MG CAP PO SCH ×3 (06:10→21:51)
[2016-10-03 07:57] VITALS: BP 112/73; PULSE 86; TEMP 36.6; O2SAT 95
[2016-10-03 08:10] VITALS: O2SAT 95
[2016-10-03] MEDS: LORAZEPAM 0.5 MG TAB PO SCH ×3 (09:41→20:27)
[2016-10-03] MEDS: OXYCODONE HCL 10 MG TABCR (OXYCONTIN) PO SCH ×2 (09:41→20:28)
[2016-10-03] MEDS: CALCIUM ACETATE 667MG GELCAP PO SCH ×3 (09:42→18:06)
[2016-10-03] MEDS: POLYETHYLENE (MIRALAX) 17 GM PACK PO SCH (09:43)
[2016-10-03] MEDS: FERROUS SULFATE 325 MG TAB PO SCH (09:44)
[2016-10-03] MEDS: DEXAMETHASONE 1 MG TAB PO SCH (09:44)
[2016-10-03] MEDS: METOPROLOL SUCC 25MG EXT REL TAB PO SCH ×2 (09:45→20:29)
[2016-10-03] MEDS: LACTOBACILLUS ACIDOPHILUS (FLORANEX) TAB PO SCH ×3 (09:46→20:29)
[2016-10-03] MEDS: LORATADINE 10 MG TAB PO SCH (09:48)
[2016-10-03] MEDS: PANTOprazole SOD 40 MG TAB PO SCH (09:50)
[2016-10-03] MEDS: ASPIRIN 81 MG ECTAB PO SCH (09:51)
[2016-10-03] MEDS: CHOLECALCIFEROL 1000 INTER.UNIT TAB PO SCH (09:52)
[2016-10-03] MEDS: FLUTICASONE/SALMETEROL 250/50 (ADVAIR) 14 PUFF/1 INHALER INH SCH ×2 (09:53→20:27)
[2016-10-03] MEDS: IPRATROPIUM BROMIDE/ALBUTEROL respimat INH INH SCH ×4 (09:53→20:27)
[2016-10-03] MEDS: INSULIN ASPART 100 UNITS/ML 3 ML PEN SC SCH ×4 (09:58→21:44)
[2016-10-03] MEDS: INSULIN GLARGINE SOLOSTAR 100 UNITS/ML 3 ML PEN SC SCH ×2 (09:59→21:45)
[2016-10-03] MEDS: COLLAGENASE OINT 30 GM TUBE EXT SCH (09:59)
--- NOTE | 2016-10-03 12:45 | Progress Note ---
Internal Med Progress Note Date of Service: October 03, 2016. Provider Documentation: SUBJECTIVE: Patient is doing well post operatively S/P Right AKA. Pain is controlled on current pain medications. No fever, chills, nausea, vomiting. OBJECTIVE: Vital Signs-as noted below Exam: General Appearance:Chronically ill appearing, no apparent distress Neck: supple Respiratory/Chest: Decreased breath sounds bilaterally Cardiovascular: S1, S2, No murmur Abdomen/GI:Soft, Non tender, Bowel sounds present Extremities/Musculoskelatal:Left and Right AKA. Rt leg in bandage Neurologic/Psych:AAOX3, grossly no focal neurological deficits Lab data as noted below. ASSESSMENT & PLAN: ASSESSMENT & PLAN : STATUS POST SEPSIS : Secondary to Right knee infection : S/P Right AKA on 09/27/16 Patient was on IV vancomycin for recent MRSA line infection; Has H/O discitis and wound infection--> Right knee wound culture: Proteus mirabilis -Continue IV Vancomycin and Zosyn per ID -ID, Orthopedics, Vascular following -Echo: No apparent valvular vegetations. Blood cx x 2 neg. Wound (knee) intraoperative- growing Proteus -Continue wound care per surgical team -Awaiting ID inputs about antibiotics. ACUTE BLOOD LOSS ANEMIA S/P SURGERY: Multifactorial: ESRD, Post surgical S/P 2 units of PRBCs -H & H monitoring- 9.1 stable -Monitor outpatient ALTERED MENTAL STATUS : Resolved Likely metabolic encephalopathy secondary to sepsis. CHRONIC LEFT VENTRICULAR SYSTOLIC HEART FAILURE : LVEF 15-20% --- > Compensated. No JOSE MARTIN or ARB due to CKD. -Continue metoprolol -Cardiology on board HYPERTENSION -Continue metoprolol succinate. -Monitor . CKD V -Hemodialysis per Nephrology. -Nephrology on board -MWF schedule DM II Hgb A1C: 6.3. -Continue Lantus, ISS CHRONIC WOUNDS Wounds right knee and right leg. -Continue Wound Care DVT Px SQ heparin on Hold while monitoring for blood loss DISPOSITION Plan to discharge to [facility] tomorrow. Awaiting antibiotics recommendations from Dr Monk PROCEDURES: ECHO: * Limited views were obtained. * There is no evidence of a mass or vegetation. This does not rule out endocarditis. * -- Conclusions -- * Left ventricular systolic function is severely reduced. * Ejection Fraction = 15-20%. * There is severe global hypokinesis of the left ventricle. Vital Signs: Date Time Temp Pulse Resp B/P Pulse Ox O2 Delivery O2 Flow Rate FiO2 10/03/16 08:10 95 Mask 3.0 10/03/16 07:57 36.6 86 16 112/73 95 Mask 3.0 10/03/16 07:50 Room Air 10/03/16 00:00 Room Air 10/02/16 23:30 36.8 93 18 115/76 97 Room Air 10/02/16 21:35 93 114/68 10/02/16 18:30 Room Air 10/02/16 17:45 37.1 102 94/64 10/02/16 17:00 83 107/58 10/02/16 16:30 80 94/63 10/02/16 16:15 88 87/70 10/02/16 16:00 80 85/65 10/02/16 15:45 86 91/58 10/02/16 15:30 87 98/66 10/02/16 15:15 83 81/58 10/02/16 15:00 64 95/57 10/02/16 14:45 94 99/68 10/02/16 14:30 96 123/76 10/02/16 14:13 92 116/78 10/02/16 14:05 36.8 94 135/67 Lab Results: Results Past 24 Hours Test 10/02/16 18:16 10/02/16 20:39 10/03/16 08:35 Range/Units Bedside Glucose 171 205 114 70-99 mg/dl
--- NOTE | 2016-10-03 14:44 | Nephrology Progress Note ---
Nephrology Progress Note Date of Service: October 03, 2016. Subjective 56 yo male with esrd with cardiomyopathy with ef of 15%, chronic blair, vascular disease, who underwent right aka last week. Patient has a pull up bar for positioning and states that he is doing better than yesterday. no confusion, appetite is ok. no SOB. no nausea/vomiting/chest pain. Objective Date Time Temp Pulse Resp B/P Pulse Ox O2 Delivery O2 Flow Rate FiO2 10/03/16 08:10 95 Mask 3.0 10/03/16 07:57 36.6 86 16 112/73 95 Mask 3.0 10/03/16 07:50 Room Air 10/03/16 00:00 Room Air 10/02/16 23:30 36.8 93 18 115/76 97 Room Air 10/02/16 21:35 93 114/68 10/02/16 18:30 Room Air 10/02/16 17:45 37.1 102 94/64 10/02/16 17:00 83 107/58 10/02/16 16:30 80 94/63 10/02/16 16:15 88 87/70 10/02/16 16:00 80 85/65 10/02/16 15:45 86 91/58 10/02/16 15:30 87 98/66 10/02/16 15:15 83 81/58 10/02/16 15:00 64 95/57 10/02/16 14:45 94 99/68 Physical Exam: General-aaox3 not confused at the moment Eyes-no scleral icterus ENT-mmm Neck-supple Lungs-reduced at bases Heart-rrr Abdomen-bs+ s/nt/nd Extremities-bilateral AKAs, right wounds wrapped Neuro-follows commands, -chronic blair Current Inpatient Medications Medications (Trade) Dose Ordered Sig/Edin Route Start Time Stop Time Status Last Admin Dose Admin Heparin Sodium (Porcine) (Heparin Sq 5000 Unit/0.5ml) 5,000 unit Q8 SQ 09/19/16 22:00 10/19/16 21:59 Future hold 10/03/16 13:54 5,000 UNIT Acetaminophen (Tylenol Tab) 650 mg Q4H PRN PO 09/19/16 16:00 10/19/16 15:59 09/25/16 23:31 650 MG Ondansetron HCl (Zofran Inj) 4 mg Q6H PRN IV 09/19/16 16:00 10/19/16 15:59 Insulin Aspart (novoLOG ASPART) SLIDING SCALE If C... ACHS SC 09/19/16 21:00 10/19/16 20:59 10/03/16 13:46 7 UNITS Glucose (Glucose 40% Gel) 15-30 GRAMS 15 GRAMS... UD PRN PO 09/19/16 16:15 10/19/16 16:14 Glucose (Glucose Chew Tab) 4-8 Tablets 4 Tabl... UD PRN PO 09/19/16 16:15 10/19/16 16:14 Dextrose (Dextrose 50% 50ML Syringe) 25-50ML OF 50% DW IV FOR... UD PRN IV 09/19/16 16:15 10/19/16 16:14 Glucagon (Glucagon Inj) 1 mg UD PRN SQ 09/19/16 16:15 10/19/16 16:14 Ascorbic Acid (Vitamin C Tab) 500 mg MoWeFr@0900 PO 09/20/16 09:00 10/20/16 08:59 10/02/16 09:06 500 MG Aspirin (Ecotrin Tab) 81 mg SuTuThSa@0900 PO 09/21/16 09:00 10/21/16 08:59 10/03/16 09:51 81 MG Atorvastatin Calcium (Lipitor Tab) 40 mg HS PO 09/19/16 21:00 10/19/16 20:59 10/02/16 21:40 40 MG Calcium Acetate (Phoslo Cap) 1,334 mg TIDM PO 09/20/16 07:30 10/20/16 07:29 10/03/16 13:39 1,334 MG Salmeterol Xinafoate/ Fluticasone (Advair Diskus 250/50 Inh) 1 puff BID INH 09/19/16 21:00 10/19/16 20:59 10/03/16 09:53 1 PUFF Gabapentin (Neurontin Cap) 300 mg Q8 PO 09/19/16 22:00 10/19/16 21:59 10/03/16 13:47 300 MG Insulin Glargine (Lantus Solostar Pen) 5 unit BID SC 09/19/16 21:00 10/19/16 20:59 10/03/16 09:59 5 UNIT Albuterol/ Ipratropium (Combivent Respimat Inh) 1 puffs QID INH 09/19/16 21:00 10/19/16 20:59 10/03/16 13:49 1 PUFFS Lactobacillus Acidophilus (Floranex Tab) 1 tab TID PO 09/19/16 21:00 10/19/16 20:59 10/03/16 13:47 1 TAB Loratadine (Claritin Tab) 10 mg MoWeFr@0400 PO 09/20/16 04:00 10/20/16 03:59 10/02/16 04:23 10 MG Lorazepam (Ativan Tab) 0.5 mg TID PO 09/19/16 21:00 10/19/16 20:59 10/03/16 13:47 0.5 MG Metoprolol Succinate (Toprol Xl Tab) 25 mg BID PO 09/19/16 21:00 10/19/16 20:59 10/03/16 09:45 25 MG Senna/Docusate Sodium (Senokot S Tab) 1 tab HS PO 09/19/16 21:00 10/19/16 20:59 10/02/16 21:39 1 TAB Cholecalciferol (Vitamin D Tab) 5,000 inter.unit DAILY PO 09/20/16 09:00 10/20/16 08:59 10/02/16 09:07 5,000 INTER.UNIT Dexamethasone (Decadron Tab) 2 mg DAILY PO 09/20/16 09:00 10/20/16 08:59 10/03/16 09:44 2 MG Pantoprazole Sodium (Protonix Tab) 40 mg SuTuThSa@0800 PO 09/21/16 08:00 10/21/16 07:59 10/03/16 09:50 40 MG Oxycodone HCl (Oxycontin Tab) 30 mg Q12 PO 09/19/16 21:00 10/19/16 20:59 10/03/16 09:41 30 MG Vancomycin HCl (Consult) 1 ea UD PRN N/A 09/19/16 18:00 10/20/16 15:59 Loratadine (Claritin Tab) 10 mg SuTuThSa@0800 PO 09/21/16 08:00 10/21/16 07:59 10/03/16 09:48 10 MG Polyethylene (Miralax Powder Packet) 17 gm MoWeFr@0400 PO 09/20/16 04:00 10/20/16 03:59 09/30/16 04:17 17 GM Polyethylene (Miralax Powder Packet) 17 gm SuTuThSa@0800 PO 09/21/16 08:00 10/21/16 07:59 10/03/16 09:43 17 GM Ferrous Sulfate (Feosol Tab) 325 mg DAILY PO 09/20/16 09:00 10/20/16 08:59 10/03/16 09:44 325 MG Collagenase 1 appln 1 appln DAILY EXT 09/21/16 09:00 10/21/16 08:59 09/26/16 08:45 1 APPLN Acetaminophen/ Empty Bag (Ofirmev Iv/ Empty Iv Bag 100ml) 65 ml @ 260 mls/hr Q6H PRN IV 09/22/16 03:30 10/22/16 03:29 09/22/16 03:55 260 MLS/HR Bisacodyl (Dulcolax Tab) 5 mg DAILY PRN PO 09/22/16 11:45 10/22/16 11:44 09/22/16 13:32 5 MG Oxycodone HCl (Roxicodone Immediate Rel Tab) `1-2 TABS FOR PAIN `1 TAB... Q6H PRN PO 09/26/16 14:00 10/10/16 13:59 10/03/16 13:48 10 MG Last 24 Hours Test 10/02/16 18:16 10/02/16 20:39 10/03/16 08:35 Bedside Glucose 171 mg/dl 205 mg/dl 114 mg/dl Assessment & Plan ESRD-tolerated dialysis well yesterday. Plan on dialysis tomorrow and on // schedule or as clinical condition dictates. UF as tolerated by BP. potassium good at 3.9. volume status adequate. Anemia of renal failure-received 2 units of pRBCs. hgb stable at 9.1. continue procrit prn with dialysis and transfuse prn. This patient was seen and treated with direct collaboration with Dr. Flores. Thank you for the opportunity to participate in this patient's care. Appreciate the Consult. ATTENDING NOTE: I performed a history and physical examination of the patient, including specifically on history- p tis alert but appears depressed to me, on physical exam-lungs decreased at bases, and my impression and plan are ESRD-for dialysis tomorrow. I have discussed the patient's management with Edwina Muhammad PA-C, Please refer to above note for the documented findings and plan of care. Uriel Oncjustyn DO
[2016-10-03 15:15] VITALS: BP 115/79; PULSE 94; TEMP 36.9; O2SAT 94
[2016-10-03] MEDS: ATORVASTATIN 40 MG TAB PO SCH (20:29)
[2016-10-03] MEDS: DOCUSATE SODIUM/SENNA 50/8.6MG TAB PO SCH (20:29)
[2016-10-03 20:40] VITALS: O2SAT 94
[2016-10-03] MEDS ORDERED: INSULIN GLARGINE SOLOSTAR 100 UNITS/ML 3 ML PEN SC STA (21:25)
[2016-10-03 22:45] VITALS: BP 140/91; PULSE 87; TEMP 36.7; O2SAT 98
[2016-10-04] VITALS (20 sets, daily range): BP systolic 73–125; BP diastolic 39–94; PULSE 44–97; TEMP 36.6–37.1; O2SAT 70–96
[2016-10-04] MEDS: POLYETHYLENE (MIRALAX) 17 GM PACK PO SCH (04:54)
[2016-10-04] MEDS: LORATADINE 10 MG TAB PO SCH (04:54)
[2016-10-04] MEDS: OXYCODONE HCL IR 5 MG TAB (IMMEDIATE RELEASE) PO PRN ×2 (05:00→12:38)
[2016-10-04] MEDS: HEPARIN SOD 5000 UNIT/0.5 ML CARP SQ SCH ×2 (05:46→13:47)
[2016-10-04] MEDS: GABAPENTIN 300 MG CAP PO SCH ×2 (05:47→13:45)
[2016-10-04] MEDS: COLLAGENASE OINT 30 GM TUBE EXT SCH (07:14)
[2016-10-04] MEDS: DEXAMETHASONE 1 MG TAB PO SCH (07:32)
[2016-10-04] MEDS: CHOLECALCIFEROL 1000 INTER.UNIT TAB PO SCH (07:32)
[2016-10-04] MEDS: OXYCODONE HCL 10 MG TABCR (OXYCONTIN) PO SCH (07:33)
[2016-10-04] MEDS: FLUTICASONE/SALMETEROL 250/50 (ADVAIR) 14 PUFF/1 INHALER INH SCH (07:33)
[2016-10-04] MEDS: CALCIUM ACETATE 667MG GELCAP PO SCH ×2 (07:33→12:34)
[2016-10-04] MEDS: IPRATROPIUM BROMIDE/ALBUTEROL respimat INH INH SCH ×3 (07:33→17:06)
[2016-10-04] MEDS: METOPROLOL SUCC 25MG EXT REL TAB PO SCH (07:34)
[2016-10-04] MEDS: ASCORBIC ACID 500 MG TAB PO SCH (07:34)
[2016-10-04] MEDS: FERROUS SULFATE 325 MG TAB PO SCH (07:34)
[2016-10-04] MEDS: LACTOBACILLUS ACIDOPHILUS (FLORANEX) TAB PO SCH ×2 (07:34→13:45)
[2016-10-04] MEDS: LORAZEPAM 0.5 MG TAB PO SCH ×2 (07:34→13:45)
[2016-10-04] MEDS: INSULIN GLARGINE SOLOSTAR 100 UNITS/ML 3 ML PEN SC SCH (07:40)
[2016-10-04] MEDS: INSULIN ASPART 100 UNITS/ML 3 ML PEN SC SCH ×2 (07:40→12:38)
[2016-10-04 08:02] LABS: HEMATOCRIT 27.3 % (42-52); MEAN CELL VOLUME 88.6 fL (80-100); MEAN CORPUSCULAR HEMOGLOBIN 28.2 pg (25-34); MEAN CORPUSCULAR HGB CONC 31.9 g/dl (32-36); MEAN PLATELET VOLUME 9.1 fL (7.4-10.4); PLATELET COUNT 267 K/uL (130-400); RED BLOOD COUNT 3.08 M/uL (4.7-6.1); WHITE BLOOD COUNT 11.15 K/uL (4.8-10.8)
[2016-10-04 08:46] LABS: CREATININE 4.9 mg/dl (0.60-1.40)
[2016-10-04 08:47] LABS: POTASSIUM 3.7 mmol/L (3.5-5.1)
--- NOTE | 2016-10-04 09:01 | Dialysis Progress Note ---
Nephrology Dialysis Note Date of Service: October 04, 2016. Subjective 56 yo male with esrd with cardiomyopathy with ef of 15%, chronic blair, vascular disease, who underwent right aka last week. Patient is seen while on dialysis. Patient states that he is doing well. no cramping, nausea, SOB, or chest pain. appetite remains good. no confusion. pain is well controlled. Access is working well. Objective Date Time Temp Pulse Resp B/P Pulse Ox O2 Delivery O2 Flow Rate FiO2 10/04/16 08:15 Mask 10/04/16 06:55 36.6 90 18 125/85 96 Room Air 10/04/16 03:15 90 Mask 10.0 10/04/16 03:10 70 Nasal Cannula 3.0 10/03/16 23:55 Room Air 10/03/16 22:45 36.7 87 20 140/91 98 Room Air 10/03/16 20:40 94 Mask 3.0 10/03/16 15:15 36.9 94 16 115/79 94 Room Air Physical Exam: General-aaox3 not confused at the moment Eyes-no scleral icterus ENT-mmm Neck-supple Lungs-reduced at bases Heart-rrr Abdomen-bs+ s/nt/nd Extremities-bilateral AKAs, right wounds wrapped Neuro-follows commands, -chronic blair Current Inpatient Medications Medications (Trade) Dose Ordered Sig/Edin Route Start Time Stop Time Status Last Admin Dose Admin Heparin Sodium (Porcine) (Heparin Sq 5000 Unit/0.5ml) 5,000 unit Q8 SQ 09/19/16 22:00 10/19/16 21:59 Future hold 10/04/16 05:46 5,000 UNIT Acetaminophen (Tylenol Tab) 650 mg Q4H PRN PO 09/19/16 16:00 10/19/16 15:59 09/25/16 23:31 650 MG Ondansetron HCl (Zofran Inj) 4 mg Q6H PRN IV 09/19/16 16:00 10/19/16 15:59 Insulin Aspart (novoLOG ASPART) SLIDING SCALE If C... ACHS SC 09/19/16 21:00 10/19/16 20:59 10/04/16 07:40 7 UNITS Glucose (Glucose 40% Gel) 15-30 GRAMS 15 GRAMS... UD PRN PO 09/19/16 16:15 10/19/16 16:14 Glucose (Glucose Chew Tab) 4-8 Tablets 4 Tabl... UD PRN PO 09/19/16 16:15 10/19/16 16:14 Dextrose (Dextrose 50% 50ML Syringe) 25-50ML OF 50% DW IV FOR... UD PRN IV 09/19/16 16:15 10/19/16 16:14 Glucagon (Glucagon Inj) 1 mg UD PRN SQ 09/19/16 16:15 10/19/16 16:14 Ascorbic Acid (Vitamin C Tab) 500 mg MoWeFr@0900 PO 09/20/16 09:00 10/20/16 08:59 10/04/16 07:34 500 MG Aspirin (Ecotrin Tab) 81 mg SuTuThSa@0900 PO 09/21/16 09:00 10/21/16 08:59 10/03/16 09:51 81 MG Atorvastatin Calcium (Lipitor Tab) 40 mg HS PO 09/19/16 21:00 10/19/16 20:59 10/03/16 20:29 40 MG Calcium Acetate (Phoslo Cap) 1,334 mg TIDM PO 09/20/16 07:30 10/20/16 07:29 10/04/16 07:33 1,334 MG Salmeterol Xinafoate/ Fluticasone (Advair Diskus 250/50 Inh) 1 puff BID INH 09/19/16 21:00 10/19/16 20:59 10/04/16 07:33 1 PUFF Gabapentin (Neurontin Cap) 300 mg Q8 PO 09/19/16 22:00 10/19/16 21:59 10/04/16 05:47 300 MG Insulin Glargine (Lantus Solostar Pen) 5 unit BID SC 09/19/16 21:00 10/19/16 20:59 10/04/16 07:40 5 UNIT Albuterol/ Ipratropium (Combivent Respimat Inh) 1 puffs QID INH 09/19/16 21:00 10/19/16 20:59 10/04/16 07:33 1 PUFFS Lactobacillus Acidophilus (Floranex Tab) 1 tab TID PO 09/19/16 21:00 10/19/16 20:59 10/04/16 07:34 1 TAB Loratadine (Claritin Tab) 10 mg MoWeFr@0400 PO 09/20/16 04:00 10/20/16 03:59 10/04/16 04:54 10 MG Lorazepam (Ativan Tab) 0.5 mg TID PO 09/19/16 21:00 10/19/16 20:59 10/04/16 07:34 0.5 MG Metoprolol Succinate (Toprol Xl Tab) 25 mg BID PO 09/19/16 21:00 10/19/16 20:59 10/04/16 07:34 25 MG Senna/Docusate Sodium (Senokot S Tab) 1 tab HS PO 09/19/16 21:00 10/19/16 20:59 10/03/16 20:29 1 TAB Cholecalciferol (Vitamin D Tab) 5,000 inter.unit DAILY PO 09/20/16 09:00 10/20/16 08:59 10/04/16 07:32 5,000 INTER.UNIT Dexamethasone (Decadron Tab) 2 mg DAILY PO 09/20/16 09:00 10/20/16 08:59 10/04/16 07:32 2 MG Pantoprazole Sodium (Protonix Tab) 40 mg SuTuThSa@0800 PO 09/21/16 08:00 10/21/16 07:59 10/03/16 09:50 40 MG Oxycodone HCl (Oxycontin Tab) 30 mg Q12 PO 09/19/16 21:00 10/19/16 20:59 10/04/16 07:33 30 MG Vancomycin HCl (Consult) 1 ea UD PRN N/A 09/19/16 18:00 10/20/16 15:59 Loratadine (Claritin Tab) 10 mg SuTuThSa@0800 PO 09/21/16 08:00 10/21/16 07:59 10/03/16 09:48 10 MG Polyethylene (Miralax Powder Packet) 17 gm MoWeFr@0400 PO 09/20/16 04:00 10/20/16 03:59 10/04/16 04:54 17 GM Polyethylene (Miralax Powder Packet) 17 gm SuTuThSa@0800 PO 09/21/16 08:00 10/21/16 07:59 10/03/16 09:43 17 GM Ferrous Sulfate (Feosol Tab) 325 mg DAILY PO 09/20/16 09:00 10/20/16 08:59 10/04/16 07:34 325 MG Collagenase 1 appln 1 appln DAILY EXT 09/21/16 09:00 10/21/16 08:59 09/26/16 08:45 1 APPLN Acetaminophen/ Empty Bag (Ofirmev Iv/ Empty Iv Bag 100ml) 65 ml @ 260 mls/hr Q6H PRN IV 09/22/16 03:30 10/22/16 03:29 09/22/16 03:55 260 MLS/HR Bisacodyl (Dulcolax Tab) 5 mg DAILY PRN PO 09/22/16 11:45 10/22/16 11:44 09/22/16 13:32 5 MG Oxycodone HCl (Roxicodone Immediate Rel Tab) `1-2 TABS FOR PAIN `1 TAB... Q6H PRN PO 09/26/16 14:00 10/10/16 13:59 10/04/16 05:00 10 MG Epoetin Simone (Procrit Inj) 10,000 units TODAY@1000 ONCE IV. 10/04/16 10:00 10/04/16 10:01 Last 24 Hours Test 10/03/16 12:10 10/03/16 17:07 10/03/16 20:43 10/04/16 06:58 Bedside Glucose 221 mg/dl 253 mg/dl 374 mg/dl 153 mg/dl Test 10/04/16 07:06 White Blood Count 11.15 K/uL Red Blood Count 3.08 M/uL Hemoglobin 8.7 g/dL Hematocrit 27.3 % Mean Corpuscular Volume 88.6 fL Mean Corpuscular Hemoglobin 28.2 pg Mean Corpuscular Hemoglobin Concent 31.9 g/dl RDW Standard Deviation 48.4 fL RDW Coefficient of Variation 14.9 % Platelet Count 267 K/uL Mean Platelet Volume 9.1 fL Sodium Level 139 mmol/L Potassium Level 3.7 mmol/L Chloride Level 102 mmol/L Carbon Dioxide Level 22 mmol/L Anion Gap 15.0 mmol/L Blood Urea Nitrogen 54 mg/dl Creatinine 4.90 mg/dl Est Creatinine Clear Calc Drug Dose 15.8 ml/min Estimated GFR () 14.1 Estimated GFR (Non- 12.2 BUN/Creatinine Ratio 11.0 Random Glucose 113 mg/dl Random Vancomycin Level 21.9 mcg/ml Assessment & Plan ESRD-Patient was seen and examined while on dialysis. Bp appropriate. Access working well. will continue to plan for dialysis while admitted every M/W/F or as clinical condition dictates. UF as tolerated by BP. potassium good at 3.7. volume status adequate. Anemia of renal failure-received 2 units of pRBCs during current hospital stay. hgb stable at 8.7. continue procrit prn with dialysis and transfuse prn. This patient was seen and treated with direct collaboration with Dr. Flores. Thank you for the opportunity to participate in this patient's care. Appreciate the Consult. ATTENDING NOTE: I performed a history and physical examination of the patient, including specifically on history- pt comfortable. tolerated dialysis well, for discharge this afternoon, on physical exam-cta, minimal edema, and my impression and plan are ESRD-for dialysis m-w- as an outpt. ok from renal perspective to go back to [facility], antibiotics per ID. I have discussed the patient's management with Edwina Muhammad PA-C, Please refer to above note for the documented findings and plan of care. Uriel Flores DO
--- NOTE | 2016-10-04 09:56 | Progress Note ---
Progress Note Date of Service: October 04, 2016. Subjective 56 yo m with multiple medical problems, POD #7 after L AKA d/t R knee infection , seen in f/u today. Pt denies any new complaints. Problem List Medical Problems: (1) Altered mental status Status: Acute (2) Diabetes mellitus out of control Status: Acute (3) Elevated troponin Status: Acute (4) Elevated troponin Status: Acute (5) Elevated troponin Status: Acute (6) End stage renal failure on dialysis Status: Acute (7) Failure of outpatient treatment Status: Acute (8) Hyperkalemia Status: Acute (9) Hypocalcemia Status: Acute (10) Hypoglycemia Status: Acute (11) Hypokalemia Status: Acute (12) Hyponatremia Status: Acute (13) Hypotension Status: Acute (14) Hypothermia Status: Acute (15) Leukocytosis Status: Acute (16) Mass of spine Status: Acute (17) Opiate overdose Status: Acute (18) Renal failure Status: Acute (19) Renal insufficiency Status: Acute (20) Sepsis Status: Acute (21) Ulcer of toe Status: Acute (22) Ulcers of both lower extremities Status: Acute (23) UTI (urinary tract infection) Status: Acute (24) UTI (urinary tract infection) Status: Acute Objective Vital Signs Vital Signs Past 12 Hours Date Time Temp Pulse Resp B/P Pulse Ox O2 Delivery O2 Flow Rate FiO2 10/04/16 09:30 44 112/39 10/04/16 09:16 64 112/94 10/04/16 09:00 65 110/62 10/04/16 08:46 89 113/82 10/04/16 08:33 37.1 90 115/82 10/04/16 08:15 Mask 10/04/16 06:55 36.6 90 18 125/85 96 Room Air 10/04/16 03:15 90 Mask 10.0 10/04/16 03:10 70 Nasal Cannula 3.0 10/03/16 23:55 Room Air 10/03/16 22:45 36.7 87 20 140/91 98 Room Air Exam CONST: A&O x3, NAD, obese, chronically ill appearing male EXT: RLE AKA site intact with jacklyn. Minimal bloody drainage on dressing. No necrosis, erythema, or ecchymosis noted. + local tenderness and edema Intake & Output 8-Hour Column 10/03/16 10/03/16 10/04/16 15:59 23:59 07:59 Intake Total 255 ml 240 ml Output Total 50 ml 0 ml Balance 205 ml 240 ml 24-Hour Column 10/04/16 07:59 Intake Total 495 ml Output Total 50 ml Balance 445 ml Laboratory and Microbiology Results Past 24 Hours Test 10/03/16 12:10 10/03/16 17:07 10/03/16 20:43 10/04/16 06:58 Range/Units Bedside Glucose 221 253 374 153 70-99 mg/dl Test 10/04/16 07:06 Range/Units White Blood Count 11.15 4.8-10.8 K/uL Red Blood Count 3.08 4.7-6.1 M/uL Hemoglobin 8.7 14.0-18.0 g/dL Hematocrit 27.3 42-52 % Mean Corpuscular Volume 88.6 80-100 fL Mean Corpuscular Hemoglobin 28.2 25-34 pg Mean Corpuscular Hemoglobin Concent 31.9 32-36 g/dl RDW Standard Deviation 48.4 36.4-46.3 fL RDW Coefficient of Variation 14.9 11.5-14.5 % Platelet Count 267 130-400 K/uL Mean Platelet Volume 9.1 7.4-10.4 fL Sodium Level 139 136-145 mmol/L Potassium Level 3.7 3.5-5.1 mmol/L Chloride Level 102 98-107 mmol/L Carbon Dioxide Level 22 21-32 mmol/L Anion Gap 15.0 3-11 mmol/L Blood Urea Nitrogen 54 7-18 mg/dl Creatinine 4.90 0.60-1.40 mg/dl Est Creatinine Clear Calc Drug Dose 15.8 ml/min Estimated GFR () 14.1 Estimated GFR (Non- 12.2 BUN/Creatinine Ratio 11.0 10-20 Random Glucose 113 70-99 mg/dl Calcium Level 9.0 8.5-10.1 mg/dl Random Vancomycin Level 21.9 mcg/ml ASSESSMENT and PLAN: s/p RLE AKA R knee infection Pt doing well post op. Ok for d/c to rehab from vascular standpoint. WIll see in office in 2-3 weeks for staple removal and wound check.
[2016-10-04] MEDS ORDERED: EPOETIN ALFA 10,000 UNITS/ML VIAL IV. ONE (10:00)
--- NOTE | 2016-10-04 10:08 | Pharmacy Progress Note ---
Pharmacy Abx Dose Short Note Date of Service October 04, 2016. Assessment & Plan Assessment 56 year old male receiving Vancomycin + Zosyn for treatment of sepsis secondary to Right Knee Infection. Patient is s/p R AKA - per ID (10/01) He was on Vancomycin IV on MWF after HD as an outpatient. * Zosyn discontinued on 10/03 - received 15 days of therapy * Continue Vancomycin IV indefinitely per Dr. Monk Plan Vancomycin * Random level of 21.9 mcg/mL is slightly supratherapeutic (pre-HD level). * Give 500 mg IV post HD today. * Goal trough level: 15 to 20 mcg/mL * Plan to continue M-W-F HD * No further random levels have been ordered - patient to be discharged today * Recommend continuing a dose of 500 mg IV on -W-F after HD. * Consider checking a random (pre-HD) level after about one week to ensure level remains therapeutic since this is a considerable dose decrease compared to previous outpatient dosing regimen Pharmacy will continue to follow and will adjust dose/frequency as necessary. Thank you.
--- NOTE | 2016-10-04 10:32 | Progress Note ---
Internal Med Progress Note Date of Service: October 04, 2016. Provider Documentation: SUBJECTIVE: Patient is doing well post operatively S/P Right AKA. Pain is controlled on current pain medications. No fever, chills, nausea, vomiting. Eager to be discharged. OBJECTIVE: Vital Signs-as noted below Exam: General Appearance:Chronically ill appearing, no apparent distress Neck: supple Respiratory/Chest: Decreased breath sounds bilaterally Cardiovascular: S1, S2, No murmur Abdomen/GI:Soft, Non tender, Bowel sounds present Extremities/Musculoskelatal:Left and Right AKA. Rt leg in bandage Neurologic/Psych:AAOX3, grossly no focal neurological deficits Lab data as noted below. ASSESSMENT & PLAN: ASSESSMENT & PLAN : STATUS POST SEPSIS : Secondary to Right knee infection : S/P Right AKA on 09/27/16 Patient was on IV vancomycin for recent MRSA line infection; Has H/O discitis and wound infection--> Right knee wound culture: Proteus mirabilis -On IV Vancomycin and Zosyn per ID -ID, Orthopedics, Vascular following -Echo: No apparent valvular vegetations. Blood cx x 2 neg. Wound (knee) intraoperative- growing Proteus -Continue wound care per surgical team PLAN: Per discussion with ID, Dr Monk, to continue IV Vancomycin with dialysis as prior to admission. Prior admission, supposed to be on IV Vancomycin indefinitely because of multiple infections/MRSA bacteremia. ACUTE BLOOD LOSS ANEMIA ON CHRONIC ANEMIA OF CKD S/P SURGERY: Multifactorial: ESRD, Post surgical S/P 2 units of PRBCs since admission -H & H monitoring- stable at 8.7 to day, near his baseline -Monitor outpatient ALTERED MENTAL STATUS : Resolved Likely metabolic encephalopathy secondary to sepsis. CHRONIC LEFT VENTRICULAR SYSTOLIC HEART FAILURE : LVEF 15-20% --- > Compensated. No JOSE MARTIN or ARB due to CKD. -Continue metoprolol daily -S/P Cardiology evaluation HYPERTENSION -Stable -Continue metoprolol succinate. ESRD ON HD -Hemodialysis per Nephrology. -Nephrology on board -MW schedule DM II Hgb A1C: 6.3. -Continue Lantus, ISS CHRONIC WOUNDS Wounds right knee and right leg S/P Amputation - Right AKA this admission -Continue Wound Care DVT Px SQ heparin was held due to anemia /blood loss DISPOSITION Plan to discharge to [facility] today. Cleared by ID, Vascular surgery for discharge today. Vital Signs: Date Time Temp Pulse Resp B/P Pulse Ox O2 Delivery O2 Flow Rate FiO2 10/04/16 09:30 44 112/39 10/04/16 09:16 64 112/94 10/04/16 09:00 65 110/62 10/04/16 08:46 89 113/82 10/04/16 08:33 37.1 90 115/82 10/04/16 08:15 Mask 10/04/16 06:55 36.6 90 18 125/85 96 Room Air 10/04/16 03:15 90 Mask 10.0 10/04/16 03:10 70 Nasal Cannula 3.0 10/03/16 23:55 Room Air 10/03/16 22:45 36.7 87 20 140/91 98 Room Air 10/03/16 20:40 94 Mask 3.0 10/03/16 15:15 36.9 94 16 115/79 94 Room Air Lab Results: Results Past 24 Hours Test 10/03/16 12:10 10/03/16 17:07 10/03/16 20:43 10/04/16 06:58 Range/Units Bedside Glucose 221 253 374 153 70-99 mg/dl Test 10/04/16 07:06 Range/Units White Blood Count 11.15 4.8-10.8 K/uL Red Blood Count 3.08 4.7-6.1 M/uL Hemoglobin 8.7 14.0-18.0 g/dL Hematocrit 27.3 42-52 % Mean Corpuscular Volume 88.6 80-100 fL Mean Corpuscular Hemoglobin 28.2 25-34 pg Mean Corpuscular Hemoglobin Concent 31.9 32-36 g/dl RDW Standard Deviation 48.4 36.4-46.3 fL RDW Coefficient of Variation 14.9 11.5-14.5 % Platelet Count 267 130-400 K/uL Mean Platelet Volume 9.1 7.4-10.4 fL Sodium Level 139 136-145 mmol/L Potassium Level 3.7 3.5-5.1 mmol/L Chloride Level 102 98-107 mmol/L Carbon Dioxide Level 22 21-32 mmol/L Anion Gap 15.0 3-11 mmol/L Blood Urea Nitrogen 54 7-18 mg/dl Creatinine 4.90 0.60-1.40 mg/dl Est Creatinine Clear Calc Drug Dose 15.8 ml/min Estimated GFR () 14.1 Estimated GFR (Non- 12.2 BUN/Creatinine Ratio 11.0 10-20 Random Glucose 113 70-99 mg/dl Calcium Level 9.0 8.5-10.1 mg/dl Random Vancomycin Level 21.9 mcg/ml
[2016-10-04] MEDS ORDERED: OXYC-164 PO (10:37)
[2016-10-04] MEDS ORDERED: IPRA1AER2 INH (10:37)
[2016-10-04] MEDS ORDERED: OXYC-787 PO (10:37)
[2016-10-04] MEDS ORDERED: SNTO30 EXT (10:37)
[2016-10-04] MEDS ORDERED: LORA-741 PO (10:37)
--- NOTE | 2016-10-04 10:40 | Discharge Instructions ---
Discharge Instructions Date of Service October 04, 2016. Admission Reason for Admission: Leukocytosis, Uti Discharge Discharge Diagnosis / Problem: 1. Sepsis secondary right knee infection status post Above knee amputation Discharge Goals Goal(s): Improve function, Therapeutic intervention, Prevent Disease Progression Activity Recommendations Activity Limitations: per Instructions/Follow-up section (PT/OT recommended to increase upper body strength) . Instructions / Follow-Up Instructions / Follow-Up MEDICATION CHANGES: 1. To continue on Vancomycin with Dialysis as prior to admission. Duration: Likely will need it indefinitely per prior note from ID. FOLLOW UP 1. Follow up with PCP in 1 week 2. Follow up with Vascular surgery in 2-3 weeks for stable removal and wound check 3. Follow up with Nephrology as scheduled WOUND CARE Per instructions Current Hospital Diet Patient's current hospital diet: Renal Diet, Diabetes Type 2 Diet, AHA Diet ( Heart Healthy) Discharge Diet Recommended Diet: AHA Diet (Heart Healthy), Low Sodium Diet (2gm Na), Diabetes Type 2 Diet, Renal Diet Procedures Procedures Performed: Right Above Knee Amputation Pending Studies Studies pending at discharge: no Laboratory Results Hemoglobin A1c Test 09/20/16 05:14 Range/Units Estimated Average Glucose 134 mg/dl Hemoglobin A1c 6.3 H 4.5-5.6 % Lipid Panel Test 09/16/16 05:33 Range/Units Triglycerides Level 114 0-150 mg/dl Cholesterol Level 121 0-200 mg/dl HDL Cholesterol 62 mg/dl Cholesterol/HDL Ratio 2.0 LDL Cholesterol, Calculated 36 mg/dl Medical Emergencies . Who to Call and When: Medical Emergencies: If at any time you feel your situation is an emergency, please call 911 immediately. . Non-Emergent Contact Non-Emergency issues call your: Primary Care Provider, Surgeon (Dr Bermudez (re: RT AKA )) . . "Provider Documentation" section prepared by Olivia Ballard. . VTE Core Measure Inpt VTE Proph given/why not?: Unfractionated heparin SQ
--- NOTE | 2016-10-04 10:43 | Discharge Summary ---
Discharge Summary Date of Service October 04, 2016. Discharge Summary Admission Date: September 19, 2016 at 15:53 Discharge Date: October 04, 2016 Discharge Disposition: retirement facility ([facility] side with PT/OT) Principal Diagnosis: 1. Sepsis - Right knee infection 2. S/P Right Above knee amputation 3. Acute blood loss anemia S/P Amputation 4. Metabolic encephalopathy Secondary Diagnoses/Problems: 1.Chronic Left ventricular systolic dysfunction 2. ESRD on HD 3. HTN 4. DM-IDDM 5. Physical deconditioning Procedures: Right AKA on 09/27/[address] Bermudez IV antibiotics Dialysis CXR Knee x ray right Echocardiogram Consultations: Vascular surgery ID Wound Nephrology Cardiology Pending Studies/Follow-Up: . Instructions / Follow-Up Instructions / Follow-Up MEDICATION CHANGES: 1. To continue on Vancomycin with Dialysis as prior to admission. Duration: Likely will need it indefinitely per prior note from ID. FOLLOW UP 1. Follow up with PCP in 1 week 2. Follow up with Vascular surgery in 2-3 weeks for stable removal and wound check 3. Follow up with Nephrology as scheduled WOUND CARE As per instructions Medication Reconciliation New Medications: Collagenase (Santyl) 250 Unit/Gm Oin 1 APPLN EXT DAILY, #30 Changed Medications: Ipratropium-Albuterol (Combivent Respimat) 1 Aer Aer 1 PUFFS INH QID PRN for SOB/WHEEZING for 30 Days, #1 1 Refill (Medication details modified) Oxycodone Hcl (Oxycodone Hcl) 10 Mg Tab 10 MG PO Q6 PRN for BREAKTHROUGH PAIN, #30 TAB (Changed from: Q4) Continued Medications: Acetaminophen Tab (Tylenol) 325 Mg Tab 650 MG PO Q6 PRN for PAIN RATED 1-5 DO NOT EXCEED 3MG/24HR Ascorbic Acid (Vitamin C) 500 Mg Tab 500 MG PO UD 3x per week on FRI/FRI/FRIDAY Aspirin (Aspirin Ec) 81 Mg Tab 81 MG PO DAILY TAKE ON FRI,FRI,FRI @ 0400 TAKE ON ,TH,SAT,SUN @ 0800 Atorvastatin (Atorvastatin Calcium) 40 Mg Tab 40 MG PO HS for 30 Days, TAB 1 Refill Calcium Acetate (Phosphate Bin (Phoslo 667 Mg) 667 Mg Cap 2 CAPSULES PO WM, CAP Cholecalciferol (Vitamin D3) 5,000 Unit Tab 5000 UNIT PO DAILY Dexamethasone (Dexamethasone) 2 Mg Tab 2 MG PO DAILY Ferrous Sulfate (Kp Ferrous Sulfate) 325 Mg Tab 1 TAB PO DAILY, 3 Refills Fluticasone Prop/Salmeterol (Advair Diskus 250/50 60 Dose) 1 Ea Aerp 1 PUFFS INH BID, 3 Refills Gabapentin (Neurontin) 300 Mg Cap 300 MG PO Q8, CAP Insulin Aspart (Novolog) Inj SC ACHS, BTL Sliding scale: 0-150 = 0 units, 151-200 = 6 units, 201-250 = 8 units, 251-300 = 10 units, 301- 350 = 12 units, 351- 400 = 14 units, 401- 450 = 16 units, 451+ call physician, subcutaneously before meals and at bedtime related to TYPE 2 Diabetes Mellitus Insulin Glargine (Lantus) 100 Unit/Ml Inj 5 UNITS SC AMPM Lactobacillus Acidophilus (Lactinex) Tab 1 TAB PO TID, TAB Loratadine (Claritin) 10 Mg Tab 10 MG PO DAILY GIVE AT 0400 ON FRI,FRI,FRI GIVE AT 0800 ON ,,FRI,SUN Lorazepam (Ativan) 0.5 Mg Tab 0.5 MG PO TID, #20 TAB (This prescription has been renewed) Magnesium Hydroxide (Milk of Magnesia) 30 Ml Susp 30 ML PO UD PRN for Constipation Metoprolol Succ (Toprol Xl) (Toprol-Xl) 25 Mg Tabcr 25 MG PO BID HOLD FOR AP HR <50 Omeprazole (Prilosec) 20 Mg Capcr 20 MG PO 4XWK ,,FRI,SUNDAYS Oxycodone HCl (Oxycodone HCl ER) 30 Mg Tab 30 MG PO Q12, #30 (This prescription has been renewed) MAY DC WHEN 40MG TABLETS ARRIVE. Oxycodone Ir (Roxicodone Ir) 5 Mg Tab 10 MG PO MWF PRN for Severe Pain, TAB SEND WITH PT TO DIALYSIS FOR SELF-ADMINISTRATION FOR PAIN CONTROL EVERY FRI,WED,FRI Oxygen (Oxygen) Gas 3 LITERS NA PRN PRN for Shortness of Breath Polyethylene Glycol 3350 (Miralax) 1 Pow 17 GM PO DAILY GIVE AT 0400 ON MON,FRI,FRI GIVE AT 0800 ON FRI,,,FRI Senna/Docusate Sod (Senokot S) 1 Tab Tab 1 TAB PO HS, TAB Sodium Phosphates (Fleet Enema Six Pack) 1 [place] 1 EA UT UD PRN for Constipation Vancomycin Hcl In Dextrose (Vancomycin Hcl In Dextros) 1 Inj Inj 1 GM IV 3XWK SEND TO DIALYSIS WITH PT ON MON,WED,FRI..WILL RECIEVE THERE [liquid protein] () 30 ML PO DAILY Admission Information HPI (per Admitting provider): This is a 56 year old male with PMH of ESRD on HD, DM type 2, CAD, ischemic cardiomyopathy s/p AICD, EF 15-20%, right superficial calf infection, right knee wound infection, hx MRSA bacteremia, chronic respiratory failure on PRN supplemental O2, chronic indwelling blair, history of left AKA, who was sent to the ED from [facility] for abnormal labs. Patient does not recall recent events and reports feeling confused. Patient was recently admitted to [facility] from September 10-2016 for RLE PAD after being seen by vascular surgery and no surgery was recommended. Patient dialyzes MWF and receives vancomycin for right calf wound with dialysis. Last dose of vancomycin was yesterday. Pt is following with wound care for RLE wounds. Patient had outpatient labs this morning showing WBC of 20.8. Prior to arrival patient also had a UA which appeared infected. Per [facility] staff patient had a fever of 101 F this morning which resolved with Tylenol given around 9 am. In the ER patient is afebrile. HR is borderline approx 90. Sats were dropping to 80s while patient was sleeping as per emergency room RN. BP has been stable. Per [facility] staff patient is usually alert and oriented x 3 but was more confused for past few days. Currently he is oriented to person and place only. Patient does not recall his fever. FIELD CROP FARMWORKER reports foul odor to the urine. He admits to chronic RLE wounds but cannot give details. He admits to mild RLE pain. Patient denies chills, dizziness, GROSSMAN, vision change, weakness, numbness, URI symptoms, cough, chest pain, SOB, abdominal pain, nausea, vomiting, diarrhea, constipation, urinary change. Physical Exam (per Admitting): General Appearance: + pertinent finding (alert 56 year old male, appears comfortable lying in bed) Head: normocephalic, atraumatic Eyes: normal inspection, PERRL, EOMI ENT: hearing grossly normal, pharynx normal Neck: supple, trachea midline Respiratory/Chest: lungs clear, normal breath sounds, no respiratory distress, no accessory muscle use, + pertinent finding (saturating well on 2 liters NC) Cardiovascular: regular rate, rhythm, no murmur Abdomen/GI: normal bowel sounds, non tender, soft Genitourinary - Male: + pertinent finding (blair catheter in place draining dark cloudy urine with foul odor) Extremities/Musculoskelatal: + pertinent finding (s/p left AKA. RLE no edema. RLE peripheral pulses difficult to palpate. right foot warm and pink with capillary refill less than 2 seconds. ) Neurologic/Psych: alert, normal mood/affect, oriented x 3, + pertinent finding (oriented to person and place only. no focal deficit on gross examination. ) Skin: + pertinent finding (left elbow with small scabbed abrasion and slight surrounding erythema- elbow is nontender with normal ROM, right knee chronic wounds with dry base no significant erythema, right calf dressing in place- changed by Dr. Macario yesterday 09/18/16 per FIELD CROP FARMWORKER. ecchymosis noted on abdomen. ) Hospital Course ASSESSMENT & PLAN : STATUS POST SEPSIS : Secondary to Right knee infection : S/P Right AKA on 09/27/16 Patient was on IV vancomycin for recent MRSA line infection; Has H/O discitis and wound infection--> Right knee wound culture: Proteus mirabilis -On IV Vancomycin and Zosyn per ID -ID, Orthopedics, Vascular following -Echo: No apparent valvular vegetations. Blood cx x 2 neg. Wound (knee) intraoperative- growing Proteus -Continue wound care per surgical team PLAN: Per discussion with ID, Dr Monk, to continue IV Vancomycin with dialysis as prior to admission. Prior admission, supposed to be on IV Vancomycin indefinitely because of multiple infections/MRSA bacteremia. ACUTE BLOOD LOSS ANEMIA ON CHRONIC ANEMIA OF CKD S/P SURGERY: Multifactorial: ESRD, Post surgical S/P 2 units of PRBCs since admission -H & H monitoring- stable at 8.7 to day, near his baseline -Monitor outpatient ALTERED MENTAL STATUS : Resolved Likely metabolic encephalopathy secondary to sepsis. CHRONIC LEFT VENTRICULAR SYSTOLIC HEART FAILURE : LVEF 15-20% --- > Compensated. No JOSE MARTIN or ARB due to CKD. -Continue metoprolol daily -S/P Cardiology evaluation HYPERTENSION -Stable -Continue metoprolol succinate. ESRD ON HD -Hemodialysis per Nephrology. -Nephrology on board -MWF schedule DM II Hgb A1C: 6.3. -Continue Lantus, ISS CHRONIC WOUNDS Wounds right knee and right leg S/P Amputation - Right AKA this admission -Continue Wound Care DVT Px SQ heparin was held due to anemia /blood loss DISPOSITION Plan to discharge to [facility] today. Cleared by ID, Vascular surgery for discharge today. Total time spent on discharge = 45 MINUTES This includes examination of the patient, discharge planning, medication reconciliation, and communication with other providers. Discharge Instructions Discharge Discharge Diagnosis / Problem: 1. Sepsis secondary right knee infection status post Above knee amputation Discharge Goals Goal(s): Improve function, Therapeutic intervention, Prevent Disease Progression Activity Recommendations Activity Limitations: per Instructions/Follow-up section (PT/OT recommended to increase upper body strength) . Instructions / Follow-Up Instructions / Follow-Up MEDICATION CHANGES: 1. To continue on Vancomycin with Dialysis as prior to admission. Duration: Likely will need it indefinitely per prior note from ID. FOLLOW UP 1. Follow up with PCP in 1 week 2. Follow up with Vascular surgery in 2-3 weeks for stable removal and wound check 3. Follow up with Nephrology as scheduled Current Hospital Diet Patient's current hospital diet: Renal Diet, Diabetes Type 2 Diet, AHA Diet ( Heart Healthy) Discharge Diet Recommended Diet: AHA Diet (Heart Healthy), Low Sodium Diet (2gm Na), Diabetes Type 2 Diet, Renal Diet Procedures Procedures Performed: Right Above Knee Amputation Pending Studies Studies pending at discharge: no Laboratory Results Hemoglobin A1c Test 09/20/16 05:14 Range/Units Estimated Average Glucose 134 mg/dl Hemoglobin A1c 6.3 H 4.5-5.6 % Lipid Panel Test 09/16/16 05:33 Range/Units Triglycerides Level 114 0-150 mg/dl Cholesterol Level 121 0-200 mg/dl HDL Cholesterol 62 mg/dl Cholesterol/HDL Ratio 2.0 LDL Cholesterol, Calculated 36 mg/dl Medical Emergencies . Who to Call and When: Medical Emergencies: If at any time you feel your situation is an emergency, please call 911 immediately. . Non-Emergent Contact Non-Emergency issues call your: Primary Care Provider, Surgeon (Dr Bermudez (re: RT AKA )) . . "Provider Documentation" section prepared by Olivia Ballard. . VTE Core Measure Inpt VTE Proph given/why not?: Unfractionated heparin SQ
--- NOTE | 2016-10-04 13:11 | Infectious Disease Progress Nt ---
Progress Note Date of Service October 04, 2016. Subjective Pt evaluation today including: conversation w/ patient, physical exam, chart review, lab review, review of studies, conversation w/ showroom sales consultant, review of inpatient medication list No new complaints. Remains afebrile. Pain controlled. All Other Systems: Reviewed and Negative Medications Current Inpatient Medications Medications (Trade) Dose Ordered Sig/Edin Route Start Time Stop Time Status Last Admin Dose Admin Heparin Sodium (Porcine) (Heparin Sq 5000 Unit/0.5ml) 5,000 unit Q8 SQ 09/19/16 22:00 10/19/16 21:59 Future hold 10/04/16 05:46 5,000 UNIT Acetaminophen (Tylenol Tab) 650 mg Q4H PRN PO 09/19/16 16:00 10/19/16 15:59 09/25/16 23:31 650 MG Ondansetron HCl (Zofran Inj) 4 mg Q6H PRN IV 09/19/16 16:00 10/19/16 15:59 Insulin Aspart (novoLOG ASPART) SLIDING SCALE If C... ACHS SC 09/19/16 21:00 10/19/16 20:59 10/04/16 12:38 8 UNITS Glucose (Glucose 40% Gel) 15-30 GRAMS 15 GRAMS... UD PRN PO 09/19/16 16:15 10/19/16 16:14 Glucose (Glucose Chew Tab) 4-8 Tablets 4 Tabl... UD PRN PO 09/19/16 16:15 10/19/16 16:14 Dextrose (Dextrose 50% 50ML Syringe) 25-50ML OF 50% DW IV FOR... UD PRN IV 09/19/16 16:15 10/19/16 16:14 Glucagon (Glucagon Inj) 1 mg UD PRN SQ 09/19/16 16:15 10/19/16 16:14 Ascorbic Acid (Vitamin C Tab) 500 mg MoWeFr@0900 PO 09/20/16 09:00 10/20/16 08:59 10/04/16 07:34 500 MG Aspirin (Ecotrin Tab) 81 mg SuTuThSa@0900 PO 09/21/16 09:00 10/21/16 08:59 10/03/16 09:51 81 MG Atorvastatin Calcium (Lipitor Tab) 40 mg HS PO 09/19/16 21:00 10/19/16 20:59 10/03/16 20:29 40 MG Calcium Acetate (Phoslo Cap) 1,334 mg TIDM PO 09/20/16 07:30 10/20/16 07:29 10/04/16 12:34 1,334 MG Salmeterol Xinafoate/ Fluticasone (Advair Diskus 250/50 Inh) 1 puff BID INH 09/19/16 21:00 10/19/16 20:59 10/04/16 07:33 1 PUFF Gabapentin (Neurontin Cap) 300 mg Q8 PO 09/19/16 22:00 10/19/16 21:59 10/04/16 05:47 300 MG Insulin Glargine (Lantus Solostar Pen) 5 unit BID SC 09/19/16 21:00 10/19/16 20:59 10/04/16 07:40 5 UNIT Albuterol/ Ipratropium (Combivent Respimat Inh) 1 puffs QID INH 09/19/16 21:00 10/19/16 20:59 10/04/16 12:34 1 PUFFS Lactobacillus Acidophilus (Floranex Tab) 1 tab TID PO 09/19/16 21:00 10/19/16 20:59 10/04/16 07:34 1 TAB Loratadine (Claritin Tab) 10 mg MoWeFr@0400 PO 09/20/16 04:00 10/20/16 03:59 10/04/16 04:54 10 MG Lorazepam (Ativan Tab) 0.5 mg TID PO 09/19/16 21:00 10/19/16 20:59 10/04/16 07:34 0.5 MG Metoprolol Succinate (Toprol Xl Tab) 25 mg BID PO 09/19/16 21:00 10/19/16 20:59 10/04/16 07:34 25 MG Senna/Docusate Sodium (Senokot S Tab) 1 tab HS PO 09/19/16 21:00 10/19/16 20:59 10/03/16 20:29 1 TAB Cholecalciferol (Vitamin D Tab) 5,000 inter.unit DAILY PO 09/20/16 09:00 10/20/16 08:59 10/04/16 07:32 5,000 INTER.UNIT Dexamethasone (Decadron Tab) 2 mg DAILY PO 09/20/16 09:00 10/20/16 08:59 10/04/16 07:32 2 MG Pantoprazole Sodium (Protonix Tab) 40 mg SuTuThSa@0800 PO 09/21/16 08:00 10/21/16 07:59 10/03/16 09:50 40 MG Oxycodone HCl (Oxycontin Tab) 30 mg Q12 PO 09/19/16 21:00 10/19/16 20:59 10/04/16 07:33 30 MG Vancomycin HCl (Consult) 1 ea UD PRN N/A 09/19/16 18:00 10/20/16 15:59 Loratadine (Claritin Tab) 10 mg SuTuThSa@0800 PO 09/21/16 08:00 10/21/16 07:59 10/03/16 09:48 10 MG Polyethylene (Miralax Powder Packet) 17 gm MoWeFr@0400 PO 09/20/16 04:00 10/20/16 03:59 10/04/16 04:54 17 GM Polyethylene (Miralax Powder Packet) 17 gm SuTuThSa@0800 PO 09/21/16 08:00 10/21/16 07:59 10/03/16 09:43 17 GM Ferrous Sulfate (Feosol Tab) 325 mg DAILY PO 09/20/16 09:00 10/20/16 08:59 10/04/16 07:34 325 MG Collagenase 1 appln 1 appln DAILY EXT 09/21/16 09:00 10/21/16 08:59 09/26/16 08:45 1 APPLN Acetaminophen/ Empty Bag (Ofirmev Iv/ Empty Iv Bag 100ml) 65 ml @ 260 mls/hr Q6H PRN IV 09/22/16 03:30 10/22/16 03:29 09/22/16 03:55 260 MLS/HR Bisacodyl (Dulcolax Tab) 5 mg DAILY PRN PO 09/22/16 11:45 10/22/16 11:44 09/22/16 13:32 5 MG Oxycodone HCl `1-2 TABS FOR PAIN `1 TAB... Q6H PRN PO 09/26/16 14:00 10/10/16 13:59 10/04/16 12:38 10 MG Vancomycin HCl/ Sodium Chloride (Vancomycin Inj/ Nss 250ml) 260 ml @ 125 mls/hr 1600 IV 10/04/16 16:00 10/04/16 23:59 10/04/16 12:39 125 MLS/HR Objective Vital Signs Date Time Temp Pulse Resp B/P Pulse Ox O2 Delivery O2 Flow Rate FiO2 10/04/16 11:40 36.8 94 111/67 10/04/16 11:30 68 73/62 10/04/16 11:15 51 88/55 10/04/16 11:00 91 89/68 10/04/16 10:45 50 109/66 10/04/16 10:30 52 86/74 10/04/16 10:15 48 90/57 10/04/16 10:00 62 95/71 10/04/16 09:45 75 104/59 10/04/16 09:30 44 112/39 10/04/16 09:16 64 112/94 10/04/16 09:00 65 110/62 10/04/16 08:46 89 113/82 10/04/16 08:33 37.1 90 115/82 10/04/16 08:15 Mask 10/04/16 06:55 36.6 90 18 125/85 96 Room Air 10/04/16 03:15 90 Mask 10.0 10/04/16 03:10 70 Nasal Cannula 3.0 10/03/16 23:55 Room Air 10/03/16 22:45 36.7 87 20 140/91 98 Room Air 10/03/16 20:40 94 Mask 3.0 10/03/16 15:15 36.9 94 16 115/79 94 Room Air Physical Exam General Appearance: no apparent distress, + pertinent finding (chronically illl -appearing) Eyes: normal inspection, EOMI, sclerae normal ENT: normal ENT inspection, pharynx normal Neck: supple, no adenopathy, trachea midline Respiratory/Chest: lungs clear, normal breath sounds, no respiratory distress Cardiovascular: regular rate, rhythm, no gallop, no murmur Abdomen: normal bowel sounds, non tender, soft, no organomegaly Extremities: + pertinent finding (right and left AKAs) Neurologic/Psychiatric: alert, oriented x 3 Skin: normal color, no rash Lymphatic: no adenopathy Laboratory Results Last 24 Hours Test 10/03/16 17:07 10/03/16 20:43 10/04/16 06:58 10/04/16 07:06 Bedside Glucose 253 mg/dl 374 mg/dl 153 mg/dl White Blood Count 11.15 K/uL Red Blood Count 3.08 M/uL Hemoglobin 8.7 g/dL Hematocrit 27.3 % Mean Corpuscular Volume 88.6 fL Mean Corpuscular Hemoglobin 28.2 pg Mean Corpuscular Hemoglobin Concent 31.9 g/dl RDW Standard Deviation 48.4 fL RDW Coefficient of Variation 14.9 % Platelet Count 267 K/uL Mean Platelet Volume 9.1 fL Sodium Level 139 mmol/L Potassium Level 3.7 mmol/L Chloride Level 102 mmol/L Carbon Dioxide Level 22 mmol/L Anion Gap 15.0 mmol/L Blood Urea Nitrogen 54 mg/dl Creatinine 4.90 mg/dl Est Creatinine Clear Calc Drug Dose 15.8 ml/min Estimated GFR () 14.1 Estimated GFR (Non- 12.2 BUN/Creatinine Ratio 11.0 Random Glucose 113 mg/dl Calcium Level 9.0 mg/dl Random Vancomycin Level 21.9 mcg/ml Test 10/04/16 11:59 Bedside Glucose 194 mg/dl Assessment and Plan 56-year-old male with end-stage renal disease on dialysis with longstanding diabetes, with sepsis and encephalopathy from persistent right knee infection with Proteus. Patient now status post right AKA. Patient to be discharged on IV vancomycin to continue treatment for discitis and recurrent Staph bacteremia. Will follow up as outpatient.
[2016-10-04] MEDS ORDERED: VANCOMYCIN INJ 500 MG in SODIUM CHLORIDE 0.9% 250ML 250 ML IV SCH (16:00)
--- NOTE | 2016-10-08 08:49 | Progress Note ---
Progress Note Date of Service October 08, 2016. Progress Note I assisted Dr Bermudez with Alvarado Daniels' RLE above knee amputation on 09/27/16, d/ t lack of resident availability.
--- NOTE | 2016-10-23 11:13 | CONSULTATION REPORT ---
DATE OF CONSULTATION: 09/19/2016 Note, patient consult was placed for wound care on 09/19/2016. The patient refused wound care consultation, history, or any further services at this time.
--- NOTE | 2016-10-28 14:08 | OPERATIVE REPORT ---
DATE OF OPERATION: 09/27/2016 PREOPERATIVE DIAGNOSIS: Infected right knee. POSTOPERATIVE DIAGNOSIS: Same. PROCEDURE: Right above knee amputation. SURGEON: Cody Bermudez MD MANAGER WOMEN: Farida Ramirez PA-C ANESTHETIC: General anesthetic. PROCEDURE INDICATIONS: The patient is a 56-year-old gentleman with infections of the right lower extremity. He subsequently had his knee infected. Pus was expressed from the joint and aspiration. Due to the amount of infections present, we recommended above knee amputation. He understood the risks, options and benefits and agreed to have this procedure. OPERATION AND FINDINGS: The patient was taken to the operating room and placed in supine position. After general anesthesia was accomplished, the right lower extremity was prepped and draped in a sterile manner. A fish mouth incision was made in the distal thigh. Bleeding was controlled using electrocautery and free ties. Once the anterior leg muscles of the thigh were divided, the femur was freed up the surrounding tissue. The periosteum was elevated and using the Gigli saw, the bone was transected. Posterior flap was then made with the hamstring muscles. Once this was done, the leg was removed. Adequate hemostasis was then obtained. Once this was noted, the wound was closed in the usual fashion using running 3-0 Vicryl suture for the fascial layers and jacklyn for the skin. Sterile dressings were applied to the wound. The patient left the operating room in satisfactory condition and tolerated the procedure well. Farida Ramirez Pac assisted due to lack of resident availability and was necessary for prepping, draping, retraction, wound closure defects, subQ and skin and was necessary for the case. I attest to the content of the Intraoperative Record and any orders documented therein. Any exceptions are noted below. [facility]
[2016-11-27] MEDS ORDERED: OXYC40TA34 PO (09:01)
== END 2016-10-04 17:45 | DRG 853 ==
LOC: ENRESERVTM → ENRESERVDT → EDBD 14:15 → C.EDA 14:16 → C.2E 15:53 → EDBEDREQSVC 09-28 13:31 → C.MSW 09-28 14:29
PROVIDERS: ADMIT Family Medicine; ATTEND Internal Medicine
PROC: 5A1D00Z (ICD-10-PCS; 2016-09-19)
PROC: 0S9C3ZX Drainage of Right Knee Joint, Percutaneous Approach, Diagnostic (ICD-10-PCS; 2016-09-23)
PROC: 0Y6C0Z3 Detachment at Right Upper Leg, Low, Open Approach (ICD-10-PCS; principal; 2016-09-27 13:45)
DX: A41.9 Sepsis, unspecified organism (principal); N18.6 End stage renal disease; L97.919 Non-pressure chronic ulcer of unspecified part of right lower leg with unspecified severity; N39.0 Urinary tract infection, site not specified; I13.2 Hypertensive heart and chronic kidney disease with heart failure and with stage 5 chronic kidney disease, or end stage renal disease; J96.10 Chronic respiratory failure, unspecified whether with hypoxia or hypercapnia; I50.42 Chronic combined systolic (congestive) and diastolic (congestive) heart failure; G93.41 Metabolic encephalopathy; D62 Acute posthemorrhagic anemia; E11.52 Type 2 diabetes mellitus with diabetic peripheral angiopathy with gangrene; I25.5 Ischemic cardiomyopathy; I25.10 Atherosclerotic heart disease of native coronary artery without angina pectoris; E11.21 Type 2 diabetes mellitus with diabetic nephropathy; Z79.4 Long term (current) use of insulin; R65.20 Severe sepsis without septic shock; I73.9 Peripheral vascular disease, unspecified; Z99.2 Dependence on renal dialysis; Z89.612 Acquired absence of left leg above knee; Z86.14 Personal history of Methicillin resistant Staphylococcus aureus infection; Z95.810 Presence of automatic (implantable) cardiac defibrillator; E66.9 Obesity, unspecified; Z66 Do not resuscitate; B96.4 Proteus (mirabilis) (morganii) as the cause of diseases classified elsewhere; N25.0 Renal osteodystrophy; D63.1 Anemia in chronic kidney disease

== ENCOUNTER → 2016-09-19 | Outpatient (CLI) | payer OTHER ==
[~2016-09-19] MED LIST changes: +GABA-113 PO; +LIQUID PROTEIN PO; +MOMLX PO; +NVLG SC; +OXYC-164 PO; +OXYC-787 PO; +OXYC40TA34 PO; +SERT50TA PO; +SNTO30 EXT; +SODI1ENE PR; +[UNRECOGNIZED DRUG - CODE] PO
[2016-09-19 10:07] LABS: BASO % 0.2 %; BASO ABS # 0.05 K/uL (0-0.2); COMPLETE YES; EOS % 0.4 %; HEMATOCRIT 38.9 % (42-52); IG% 0.4 %; LYMPH % 7.7 %; LYMPH ABS # 1.61 K/uL (1.2-3.4); MEAN CELL VOLUME 95.3 fL (80-100); MEAN CORPUSCULAR HEMOGLOBIN 29.7 pg (25-34); MEAN CORPUSCULAR HGB CONC 31.1 g/dl (32-36); MONO % 6.2 %; NEUT % 85.1 %; PLATELET COUNT 319 K/uL (130-400); RED BLOOD COUNT 4.08 M/uL (4.7-6.1); WHITE BLOOD COUNT 20.81 K/uL (4.8-10.8)
[2016-09-19 10:14] LABS: ALT/SGPT 18 U/L (12-78); AST/SGOT 23 U/L (15-37); BLOOD UREA NITROGEN 51 mg/dl (7-18); CARBON DIOXIDE 25 mmol/L (21-32); CHLORIDE 95 mmol/L (98-107); GLUCOSE 77 mg/dl (70-99); POTASSIUM 4.9 mmol/L (3.5-5.1); SODIUM 131 mmol/L (136-145)
[2016-09-19 10:17] LABS: ALB/GLOB RATIO 0.5 (0.9-2); ALKALINE PHOSPHATASE 102 U/L (45-117)
[2016-09-19 10:26] LABS: CALCIUM 9.8 mg/dl (8.5-10.1)
[2016-09-19 10:35] LABS: URINE APPEARANCE TURBID (CLEAR); URINE NITRITE NEG (NEG); URINE PH >= 9.0 (4.5-7.5); URINE SPECIFIC GRAVITY 1.019 (1.000-1.030); UROBILINOGEN NEG (NEG)
[2016-09-19 10:45] LABS: MANUAL MICROSCOPIC REQUIRED? NO; REVIEW REQ? YES; SULFASALICYLIC ACID POS (NEG); URINE BILIRUBIN NEG (NEG); URINE COLOR AMBER
--- NOTE | 2016-11-07 11:58 | CODING QUERY NO DIAGNOSIS ---
TREATMENT RENDERED WITHOUT A DIAGNOSIS To promote full compliance with coding requirements relating to patient care, physician participation is requested in all cases of counseling center manager uncertainty. Please assist us with providing a diagnosis/symptom for the test(s) below: A diagnosis/symptom was not documented on your Order. A valid diagnosis/symptom is required to bill all insurances. Please remember that we are unable to code a diagnosis of rule out, probable, possible, questionable, or suspected. Tests that require a diagnosis: DOS: 09/19/16 * CMP DIAGNOSIS: * CBC W AUTO DIFF DIAGNOSIS: * UA CLEAN CATCH DIAGNOSIS: * URINE CULTURE CLEAN CATCH DIAGNOSIS: Provider Signature: Date: Thank you Berna Nagy Health Information Management Once completed, please kindly fax back to [phone] For questions please call [phone]
== END ==
LOC: C.LABUPNIT 09:49 → EDSTATUS 10-28 12:36
PROVIDERS: ATTEND Family Medicine
DX: N18.6 End stage renal disease (principal)

== ENCOUNTER 2016-11-22 14:42 | Emergency (ER) | payer OTHER ==
[2016-11-22 14:42] VITALS: TEMP 36.8
[~2016-11-22 14:42] MED LIST changes: -CALC-191; -GABA-112 PO; +GABA-113 PO; +MOMLX PO; +OXYC-164 PO; +OXYC-787 PO; -OXYC15TA89 PO; +SNTO30 EXT; +SODI1ENE PR
[2016-11-22] MEDS ORDERED: ONDANSETRON INJ 2 MG/ML 2 ML VIAL IV STA (15:21)
[2016-11-22] MEDS ORDERED: MoRPHine SULFATE 4 MG/ML 1 ML CARP\\VIAL IV STA (15:21)
[2016-11-22 16:14] LABS: BASO % 0.2 %; BASO ABS # 0.02 K/uL (0-0.2); COMPLETE YES; EOS % 0.2 %; HEMATOCRIT 44.9 % (42-52); IG% 0.5 %; LYMPH % 6.8 %; LYMPH ABS # 0.88 K/uL (1.2-3.4); MEAN CELL VOLUME 86.7 fL (80-100); MEAN CORPUSCULAR HEMOGLOBIN 28.2 pg (25-34); MEAN CORPUSCULAR HGB CONC 32.5 g/dl (32-36); MEAN PLATELET VOLUME 10.5 fL (7.4-10.4); MONO % 2.4 %; NEUT % 89.9 %; PLATELET COUNT 201 K/uL (130-400); RED BLOOD COUNT 5.18 M/uL (4.7-6.1); WHITE BLOOD COUNT 12.87 K/uL (4.8-10.8)
--- NOTE | 2016-11-22 16:34 | DIAGNOSTIC IMAGING REPORT ---
CT SCAN OF THE ABDOMEN AND PELVIS WITHOUT CONTRAST CLINICAL HISTORY: Bilateral flank pain. Possible calculus. COMPARISON STUDY: 06/01/2015 TECHNIQUE: CT scan of the abdomen and pelvis was performed from the lung bases to the proximal femurs. Images are reviewed in the axial, sagittal, and coronal planes. IV contrast was not administered for this examination. CT DOSE: 2008.86 mGy.cm FINDINGS: Lower chest: There are coronary artery calcifications. The heart is enlarged. There are bibasal atelectatic changes. Liver: The unenhanced liver is normal in size, contour, and attenuation. There is no intrahepatic biliary ductal dilatation. Gallbladder: Unremarkable. Spleen: Normal in size and attenuation. Pancreas: Unremarkable. Adrenal glands: Unremarkable. Kidneys: No right renal calculi are visualized. There is a 3 mm left renal calcification. This could represent either a nonobstructing calculus or vascular calcification. There is no hydronephrosis. No ureteral or bladder calculi are visualized. Bowel: There are no transition zones indicate bowel obstruction. The appendix appears normal. There is no acute diverticulitis. There is moderate fecal retention. Stool within the rectum measures 5.5 cm in transverse diameter. There is minimal associated rectal wall thickening. Peritoneum: There is no intraperitoneal free air or abdominal ascites. Vasculature: There is no evidence of abdominal aortic aneurysm. There are scattered atheromatous calcifications. Adenopathy: None. Pelvic viscera: The bladder is decompressed secondary to a Butler catheter. Skeletal structures: There is a progressive severe L1 compression fracture with minimal residual visible bone. There are endplate erosive changes involving the inferior T12 and superior T2 vertebral bodies. There is 12 mm of retrolisthesis of T12 on L2. There are bony fragments within the spinal canal with secondary spinal canal narrowing. IMPRESSION: 1. No evidence of bowel obstruction. No evidence of free air 2. Normal appendix. No evidence of acute diverticulitis 3. Fecal retention. Stool within the rectum measuring 5.5 cm in diameter. Minimal associated rectal wall thickening 4. 3 mm right renal calcification, calculus versus vascular calcification. No obstructive changes. No ureteral calculi. 5. Marked destruction of the L1 vertebral body with erosion of the inferior T12 endplate and superior L2 endplate. 12 mm of retrolisthesis of T12 on L2. The findings likely represent a pseudoarthrosis. There are retropulsed fragments within the spinal canal with secondary spinal canal narrowing. Electronically signed by: Rajendra Gomez M.D. 11/22/2016 4:33 PM Dictated Date/Time: 11/22/2016 4:17 PM
[2016-11-22 16:42] LABS: ALT/SGPT 46 U/L (12-78); BLOOD UREA NITROGEN 44 mg/dl (7-18); BUN/CREATININE RATIO 13.3 (10-20); CALCIUM 9.5 mg/dl (8.5-10.1); CARBON DIOXIDE 27 mmol/L (21-32); CHLORIDE 98 mmol/L (98-107); GLUCOSE 250 mg/dl (70-99); POTASSIUM 3.7 mmol/L (3.5-5.1); SODIUM 136 mmol/L (136-145)
[2016-11-22 16:45] LABS: ALKALINE PHOSPHATASE 126 U/L (45-117); AST/SGOT 31 U/L (15-37)
[2016-11-22] MEDS ORDERED: SODIUM CHLORIDE 0.9% 250ML 250 ML IV STA (18:18)
--- NOTE | 2016-11-22 18:55 | DIAGNOSTIC IMAGING REPORT ---
CHEST ONE VIEW PORTABLE CLINICAL HISTORY: Pneumonia COMPARISON STUDY: 09/23/2016 FINDINGS: The heart remains enlarged. There is a dual-lumen right internal jugular central venous catheter unchanged in position. There is a left subclavian pacer/defibrillator unchanged in position. There is resolving mild pulmonary vascular congestion.. There is no lobar consolidation. There are linear opacities the right lung base, likely representing subsegmental atelectasis.[ IMPRESSION: 1. Resolving mild pulmonary vascular congestion 2. Persistent cardiomegaly 3. Subsegmental atelectatic changes at the right lung base Electronically signed by: Rajendra Gomez M.D. 11/22/2016 6:54 PM Dictated Date/Time: 11/22/2016 6:52 PM
[2016-11-22 21:38] VITALS: BP 103/78; PULSE 96; O2SAT 100
--- NOTE | 2016-11-22 23:44 | EMERGENCY ROOM VISIT NOTE ---
History Report prepared by Abbie: Cele Cardenas Under the Supervision of: Dr. Shaan Gregg M.D. First contact with patient: 15:12 Chief Complaint: ABDOMINAL PAIN Stated Complaint: ABD PAIN Nursing Triage Summary: Patient arrived to ER via EMS. Per EMS, patient is bilateral above the knee amputee. Patient c/o of severe abdominal pain x 1 1/2 hrs [employer]. Patient described pain as "crampy like needing to go to the bathroom." Patient states "I don't remember the last time I moved my bowels." Patient is a dialysis patient. Per EMS, patient did not finished today's dialysis session. History of Present Illness The patient is a 56 year old male who presents to the Emergency Room with complaints of worsening diffuse abdominal pain that began two hours ago. He currently rates his discomfort as a 10/10 in severity. The patient states that his pain started as cramps, but notes that his pain continued to worsen. He states that he had pain like this two days ago, but denies it being this severe. The patient states that he had a bowel movement 1 and a half hours ago. He states that he is unsure if he has had a fever. The patient states that he had dialysis today, noting that he finished the treatment. He states that he has a Butler Catheter that he urinates into. He denies any chest pain, nausea, vomiting, or feeling confused. He is on PRN oxygen. Source of History: patient Onset: two hours ago Position: abdomen (diffuse) Symptom Intensity: 10/10 Quality: cramping Timing: worsening Associated Symptoms: No nausea, No vomiting Review of Systems See HPI for pertinent positives & negatives. A total of 10 systems reviewed and were otherwise negative. Past Medical & Surgical Medical Problems: (1) Acute on chronic renal failure (2) Anemia (3) Arterial occlusion (4) Cardiomyopathy (5) CHF (congestive heart failure) (6) Chronic back pain (7) CKD (chronic kidney disease), stage III (8) Coronary artery disease (9) DM type 2 (diabetes mellitus, type 2) (10) Fever (11) HTN (hypertension) (12) Hyperlipidemia (13) Hypoxia (14) Infected permcath (15) Leukocytosis (16) Obesity (17) Osteomyelitis (18) PAD (peripheral artery disease) (19) PVD (peripheral vascular disease) (20) Unresponsiveness Surgical Problems: (1) ICD (implantable cardioverter-defibrillator), single, in situ (2) S/P AKA (above knee amputation) (3) S/P femoral-popliteal bypass surgery (4) Toe amputation status Family History Coronary artery disease MOTHER FH: atrial fibrillation FATHER FH: cancer FATHER Hypertension SISTER Valvular heart disease FATHER Social History Smoking Status: Former Smoker Alcohol Use: occasionally Marital Status: single Housing Status: prison Occupation Status: disabled Current/Historical Medications Scheduled Ascorbic Acid (Vitamin C), 500 MG PO UD Aspirin (Aspirin Ec), 81 MG PO DAILY Atorvastatin (Atorvastatin Calcium), 40 MG PO HS Calcium Acetate (Phosphate Bin (Phoslo 667 Mg), 2 CAPSULES PO WM Cholecalciferol (Vitamin D3), 5,000 UNIT PO DAILY Collagenase (Santyl), 1 APPLN EXT DAILY Dexamethasone (Dexamethasone), 2 MG PO DAILY Ferrous Sulfate (Kp Ferrous Sulfate), 1 TAB PO DAILY Fluticasone Prop/Salmeterol (Advair Diskus 250/50 60 Dose), 1 PUFFS INH BID Gabapentin (Neurontin), 300 MG PO Q8 Insulin Aspart (Novolog), SC ACHS Insulin Glargine (Lantus), 5 UNITS SC AMPM Lactobacillus Acidophilus (Lactinex), 1 TAB PO TID Loratadine (Claritin), 10 MG PO DAILY Lorazepam (Ativan), 0.5 MG PO TID Metoprolol Succ (Toprol Xl) (Toprol-Xl), 25 MG PO BID Omeprazole (Prilosec), 20 MG PO 4XWK Oxycodone HCl (Oxycodone HCl ER), 30 MG PO Q12 Polyethylene Glycol 3350 (Miralax), 17 GM PO DAILY Senna/Docusate Sod (Senokot S), 1 TAB PO HS Vancomycin Hcl In Dextrose (Vancomycin Hcl In Dextros), 1 GM IV 3XWK [liquid protein], 30 ML PO DAILY Scheduled PRN Acetaminophen Tab (Tylenol), 650 MG PO Q6 PRN for PAIN RATED 1-5 Home O2 Therapy (Oxygen), 3 LITERS NA PRN PRN for Shortness of Breath Ipratropium-Albuterol (Combivent Respimat), 1 PUFFS INH QID PRN for SOB/WHEEZING Magnesium Hydroxide (Milk of Magnesia), 30 ML PO UD PRN for Constipation Oxycodone Hcl (Oxycodone Hcl), 10 MG PO Q6 PRN for BREAKTHROUGH PAIN Oxycodone Ir (Roxicodone Ir), 10 MG PO MWF PRN for Severe Pain Sodium Phosphates (Fleet Enema Six Pack), 1 EA [place] UD PRN for Constipation Allergies Coded Allergies: Daptomycin (Verified Allergy, Severe, WATER ON LUNGS, 11/22/16) pt stated this allergy is "lethal" for him POLLEN (Verified Allergy, Unknown, 11/22/16) Ciprofloxacin (Verified Adverse Reaction, Intermediate, NAUSEA AND DIARHHEA, 11/22/16) Physical Exam Vital Signs Date Time Temp Pulse Resp B/P (MAP) Pulse Ox O2 Delivery O2 Flow Rate FiO2 11/22/16 21:38 96 24 103/78 100 11/22/16 20:19 89 20 108/79 100 Nasal Cannula 4.0 11/22/16 19:11 91 11/22/16 18:49 93 24 115/87 99 Nasal Cannula 4.0 11/22/16 17:02 99 18 99/64 94 Room Air 11/22/16 15:22 102 11/22/16 14:42 36.8 108 18 107/81 99 Room Air Physical Exam Constitutional: Vital signs reviewed. Eyes: Pupils are equal round reactive to light. Conjunctiva are noninjected. ENT: Pharynx is clear without erythema or exudate. Mucous membranes are moist. Neck supple without meningeal signs. Respiratory: Clear to auscultation bilaterally. Breath sounds are equal bilaterally. Cardiovascular: Regular rate and rhythm. No rubs or gallops. GI: Soft, diffuse bilateral tenderness, no guarding, ecchymosis to abdomen bilaterally, Butler catheter in place with dark urine, nondistended. Bowel sounds are present. Musculoskeletal: Bilateral AKA, dialysis catheter right chest. Integumentary: No cyanosis. Neurological: The patient is awake and alert. No focal deficits. Psychiatric: Normal affect. Medical Decision & Procedures ER Provider Diagnostic Interpretation: Radiology results as stated below per my review and the radiologist's interpretation: CT SCAN OF THE ABDOMEN AND PELVIS WITHOUT CONTRAST CLINICAL HISTORY: Bilateral flank pain. Possible calculus. COMPARISON STUDY: 06/01/2015 TECHNIQUE: CT scan of the abdomen and pelvis was performed from the lung bases to the proximal femurs. Images are reviewed in the axial, sagittal, and coronal planes. IV contrast was not administered for this examination. CT DOSE: 2008.86 mGy.cm FINDINGS: Lower chest: There are coronary artery calcifications. The heart is enlarged. There are bibasal atelectatic changes. Liver: The unenhanced liver is normal in size, contour, and attenuation. There is no intrahepatic biliary ductal dilatation. Gallbladder: Unremarkable. Spleen: Normal in size and attenuation. Pancreas: Unremarkable. Adrenal glands: Unremarkable. Kidneys: No right renal calculi are visualized. There is a 3 mm left renal calcification. This could represent either a nonobstructing calculus or vascular calcification. There is no hydronephrosis. No ureteral or bladder calculi are visualized. Bowel: There are no transition zones indicate bowel obstruction. The appendix appears normal. There is no acute diverticulitis. There is moderate fecal retention. Stool within the rectum measures 5.5 cm in transverse diameter. There is minimal associated rectal wall thickening. Peritoneum: There is no intraperitoneal free air or abdominal ascites. Vasculature: There is no evidence of abdominal aortic aneurysm. There are scattered atheromatous calcifications. Adenopathy: None. Pelvic viscera: The bladder is decompressed secondary to a Butler catheter. Skeletal structures: There is a progressive severe L1 compression fracture with minimal residual visible bone. There are endplate erosive changes involving the inferior T12 and superior T2 vertebral bodies. There is 12 mm of retrolisthesis of T12 on L2. There are bony fragments within the spinal canal with secondary spinal canal narrowing. IMPRESSION: 1. No evidence of bowel obstruction. No evidence of free air 2. Normal appendix. No evidence of acute diverticulitis 3. Fecal retention. Stool within the rectum measuring 5.5 cm in diameter. Minimal associated rectal wall thickening 4. 3 mm right renal calcification, calculus versus vascular calcification. No obstructive changes. No ureteral calculi. 5. Marked destruction of the L1 vertebral body with erosion of the inferior T12 endplate and superior L2 endplate. 12 mm of retrolisthesis of T12 on L2. The findings likely represent a pseudoarthrosis. There are retropulsed fragments within the spinal canal with secondary spinal canal narrowing. Electronically signed by: Rajendra Gomez M.D. 11/22/2016 4:33 PM Dictated Date/Time: 11/22/2016 4:17 PM CHEST ONE VIEW PORTABLE CLINICAL HISTORY: Pneumonia COMPARISON STUDY: 09/23/2016 FINDINGS: The heart remains enlarged. There is a dual-lumen right internal jugular central venous catheter unchanged in position. There is a left subclavian pacer/defibrillator unchanged in position. There is resolving mild pulmonary vascular congestion.. There is no lobar consolidation. There are linear opacities the right lung base, likely representing subsegmental atelectasis.[ IMPRESSION: 1. Resolving mild pulmonary vascular congestion 2. Persistent cardiomegaly 3. Subsegmental atelectatic changes at the right lung base Electronically signed by: Rajendra Gomez M.D. 11/22/2016 6:54 PM Dictated Date/Time: 11/22/2016 6:52 PM Laboratory Results 11/22/16 15:40 Red Blood Count 5.18, Mean Corpuscular Volume 86.7, Mean Corpuscular Hemoglobin 28.2, Mean Corpuscular Hemoglobin Concent 32.5, Mean Platelet Volume 10.5, Neutrophils (%) (Auto) 89.9, Lymphocytes (%) (Auto) 6.8, Monocytes (%) (Auto) 2.4, Eosinophils (%) (Auto) 0.2, Basophils (%) (Auto) 0.2, Neutrophils # (Auto) 11.57, Lymphocytes # (Auto) 0.88, Monocytes # (Auto) 0.31, Eosinophils # (Auto) 0.03, Basophils # (Auto) 0.02 11/22/16 15:40 Test 11/22/16 14:52 11/22/16 15:40 Bedside Glucose 249 mg/dl (70-99) White Blood Count 12.87 K/uL (4.8-10.8) Red Blood Count 5.18 M/uL (4.7-6.1) Hemoglobin 14.6 g/dL (14.0-18.0) Hematocrit 44.9 % (42-52) Mean Corpuscular Volume 86.7 fL (80-100) Mean Corpuscular Hemoglobin 28.2 pg (25-34) Mean Corpuscular Hemoglobin Concent 32.5 g/dl (32-36) Platelet Count 201 K/uL (130-400) Mean Platelet Volume 10.5 fL (7.4-10.4) Neutrophils (%) (Auto) 89.9 % Lymphocytes (%) (Auto) 6.8 % Monocytes (%) (Auto) 2.4 % Eosinophils (%) (Auto) 0.2 % Basophils (%) (Auto) 0.2 % Neutrophils # (Auto) 11.57 K/uL (1.4-6.5) Lymphocytes # (Auto) 0.88 K/uL (1.2-3.4) Monocytes # (Auto) 0.31 K/uL (0.11-0.59) Eosinophils # (Auto) 0.03 K/uL (0-0.5) Basophils # (Auto) 0.02 K/uL (0-0.2) RDW Standard Deviation 45.1 fL (36.4-46.3) RDW Coefficient of Variation 14.2 % (11.5-14.5) Immature Granulocyte % (Auto) 0.5 % Immature Granulocyte # (Auto) 0.06 K/uL (0.00-0.02) Anion Gap 11.0 mmol/L (3-11) Estimated GFR () 22.8 Estimated GFR (Non- 19.6 BUN/Creatinine Ratio 13.3 (10-20) Calcium Level 9.5 mg/dl (8.5-10.1) Total Bilirubin 0.6 mg/dl (0.2-1) Direct Bilirubin 0.1 mg/dl (0-0.2) Aspartate Amino Transf (AST/SGOT) 31 U/L (15-37) Alanine Aminotransferase (ALT/SGPT) 46 U/L (12-78) Alkaline Phosphatase 126 U/L (45-117) Total Protein 8.3 gm/dl (6.4-8.2) Albumin 3.5 gm/dl (3.4-5.0) Lipase 52 U/L (73-393) Laboratory results as reviewed by me. Medications Administered Medications (Trade) Dose Ordered Sig/Edin Route Start Time Stop Time Status Last Admin Dose Admin Morphine Sulfate (MoRPHine SULFATE INJ) 4 mg ONE STAT IV 11/22/16 15:21 11/22/16 15:24 DC 11/22/16 16:03 4 MG Ondansetron HCl (Zofran Inj) 4 mg NOW STAT IV 11/22/16 15:21 11/22/16 15:24 DC 11/22/16 16:02 4 MG Sodium Chloride 250 ml @ 999 mls/hr Q16M STAT IV 11/22/16 18:18 11/22/16 18:33 DC 11/22/16 18:49 999 MLS/HR ECG Indication: abdominal pain Rate (beats per minute): 106 Rhythm: sinus tachycardia Findings: PAC, other (limited due to baseline artifact) ED Course 151: The patient was evaluated in room A12A. A complete history and physical exam was performed. 152: Ordered Zofran Inj 4 mg IV, Morphine Sulfate 4 mg IV. 1710: I reevaluated the patient and he is resting. I discussed the test results thus far with the patient. 1730: I reevaluated the patient and he is resting. I discussed the CT results with him again and he denies any back pain. According to the patient's EMR, the patient had an abnormal lumbar CT scan that required transfer to [place]. It showed osteomyelitis and/or destructive lesion in the lumbar spine. 1800: The patient refused the enema, but nursing staff reports that the patient had a very large bowel movement without the enema. They note that the patient has no complaints at this time. 8: I have reevaluated the patient at this time and he has not been able to provide a urine sample yet. He states that he feels fine and just wants to go home. His blood pressure was found to be 82/61 mmHg at this time. He is going to get fluids and wait to provide a urine sample. Ordered Sodium Chloride 250 ml @ 999 mls/hr IV. 1920: I reevaluated the patient and he states that he had some pain earlier, but its gone. He cannot tell me where the pain was. His blood pressure is normal, and received the NSS, but there is still no urine coming from the catheter. 2055: I reevaluated the patient and he is still unable to provide a urine sample due to being a dialysis patient. He states he feels fine and has no complaints and would rather just go home at this point. He verbalized complete understanding and agreement with the treatment plan. He is ready to go home. Medical Decision This is a 56-year-old male who presents with abdominal pain. Differential diagnosis includes pancreatitis, irritable bowel syndrome, colitis, kidney stone , UTI, constipation. I did perform a limited focused review of portions of the patient's old chart on the electronic medical record. The patient had a right AKA in September. Blood Pressure Screening: Patient was found to have normal blood pressure on screening and does not require follow-up. Medication Reconciliation: I attest that I have personally reviewed the patient' s current medication list. I did evaluate the patient as noted above. I did treat the patient with IV morphine and Zofran. I did order and review the patient's blood work as noted in the electronic medical record. His white blood cell count is slightly elevated. His creatinine is 3.3. He does have end-stage renal disease. I did order a CT of the abdomen and pelvis. I did review the images myself as well as the radiology report as described above. There is no evidence of acute process. He does have fecal retention. I did order an enema but the nurse stated that he had a bowel movement before the enema. On reexamination he is feeling much better. He has no pain or tenderness on exam. His blood pressure did drop slightly but this may be secondary to the morphine he was given. He was given a small bolus of normal saline IV as blood pressure came up. I did wish to check his urine but unfortunately the patient was unable to give a sample due to his end-stage renal disease. We did wait several hours. After further discussion with the patient he stated he felt well and wanted to just go back home. The patient was discharged in good condition and advised to return for any worsening symptoms. Impression Primary Impression: Diffuse abdominal pain Additional Impressions: End stage renal disease Fecal retention Scribe Attestation The scribe's documentation has been prepared under my direct and personally reviewed by me in its entirety. I confirm that the note above accurately reflects all work, treatment, procedures, and medical decision making performed by me. Departure Information Dispostion Home / Self-Care Referrals Mateus Todd M.D. (PCP) Forms Call Back Authorization, HOME CARE DOCUMENTATION FORM, IMPORTANT VISIT INFORMATION Patient Instructions ED Abdominal Pain Unkn Cause Male, ED Constipation, My [facility] Additional Instructions You have been examined and treated today on an emergency basis only. This is not a substitute for, or an effort to provide, complete comprehensive medical care. It is impossible to recognize and treat all injuries or illnesses in a single emergency department visit. It is therefore important that you follow up closely with your physician. Call as soon as possible for an appointment. Return for worsening symptoms or if you develop fever, vomiting, or any other concerning symptoms. Problem Qualifiers Additional Impressions: Fecal retention Constipation type: unspecified constipation type Qualified Codes: K59.00 - Constipation, unspecified
[2016-11-27] MEDS ORDERED: OXYC40TA34 PO (09:01)
== END 2016-11-22 21:39 ==
LOC: EDBD 14:42 → C.EDA 14:43
DX: R10.84 Generalized abdominal pain (principal); N18.6 End stage renal disease; K59.00 Constipation, unspecified; D64.9 Anemia, unspecified; I42.9 Cardiomyopathy, unspecified; M54.9 Dorsalgia, unspecified; G89.29 Other chronic pain; I12.0 Hypertensive chronic kidney disease with stage 5 chronic kidney disease or end stage renal disease; I25.10 Atherosclerotic heart disease of native coronary artery without angina pectoris; E11.22 Type 2 diabetes mellitus with diabetic chronic kidney disease; E78.5 Hyperlipidemia, unspecified; R09.02 Hypoxemia; M86.9 Osteomyelitis, unspecified; I73.9 Peripheral vascular disease, unspecified; Z99.2 Dependence on renal dialysis; Z96.0 Presence of urogenital implants; Z95.818 Presence of other cardiac implants and grafts; Z89.611 Acquired absence of right leg above knee; Z89.612 Acquired absence of left leg above knee; Z82.49 Family history of ischemic heart disease and other diseases of the circulatory system; Z87.891 Personal history of nicotine dependence; Z79.4 Long term (current) use of insulin; Z79.82 Long term (current) use of aspirin

== ENCOUNTER 2016-12-03 08:23 | Day surgery (SDC) | payer OTHER ==
[2016-11-27 08:37] VITALS: BMI 65.0
--- NOTE | 2016-11-27 09:41 | PAT Medication Instructions ---
Service Date Nov 27, 2016. Current Home Medication List Acetaminophen Tab (Tylenol), 650 MG PO Q6 PRN for PAIN RATED 1-5 Ascorbic Acid (Vitamin C), 500 MG PO UD Aspirin (Aspirin Ec), 81 MG PO DAILY Atorvastatin (Atorvastatin Calcium), 40 MG PO HS Calcium Acetate (Phosphate Bin (Phoslo 667 Mg), 2 CAPSULES PO WM Cholecalciferol (Vitamin D3), 5,000 UNIT PO DAILY Collagenase (Santyl), 1 APPLN EXT DAILY Dexamethasone (Dexamethasone), 2 MG PO DAILY Ferrous Sulfate (Kp Ferrous Sulfate), 1 TAB PO DAILY Fluticasone Prop/Salmeterol (Advair Diskus 250/50 60 Dose), 1 PUFFS INH BID Gabapentin (Neurontin), 300 MG PO Q8 Home O2 Therapy (Oxygen), 3 LITERS NA PRN PRN for Shortness of Breath Insulin Aspart (Novolog), SC ACHS Insulin Glargine (Lantus), 5 UNITS SC AMPM Ipratropium-Albuterol (Combivent Respimat), 1 PUFFS INH QID PRN for SOB/WHEEZING Lactobacillus Acidophilus (Lactinex), 1 TAB PO TID Loratadine (Claritin), 10 MG PO DAILY Lorazepam (Ativan), 0.5 MG PO TID Magnesium Hydroxide (Milk of Magnesia), 30 ML PO UD PRN for Constipation Metoprolol Succ (Toprol Xl) (Toprol-Xl), 25 MG PO BID Omeprazole (Prilosec), 20 MG PO 4XWK Oxycodone Hcl (Oxycodone Hcl), 10 MG PO Q6 PRN for BREAKTHROUGH PAIN Oxycodone Hcl (Oxycontin), 40 MG PO Q12 Oxycodone Ir (Roxicodone Ir), 10 MG PO MWF PRN for Severe Pain Polyethylene Glycol 3350 (Miralax), 17 GM PO DAILY Senna/Docusate Sod (Senokot S), 1 TAB PO HS Sodium Phosphates (Fleet Enema Six Pack), 1 EA MA UD PRN for Constipation Vancomycin Hcl In Dextrose (Vancomycin Hcl In Dextros), 1 GM IV 3XWK Medication Instructions For Your Scheduled Surgery - Continue as directed: Vancomycin Hcl In Dextrose (Vancomycin Hcl In Dextros), 1 GM IV 3XWK - Per surgeon's instructions: Aspirin (Aspirin Ec), 81 MG PO DAILY - Hold the following medications 24 hours prior to surgery: Collagenase (Santyl), 1 APPLN EXT DAILY - Hold the following medications the morning of surgery: Calcium Acetate (Phosphate Bin (Phoslo 667 Mg), 2 CAPSULES PO WM Cholecalciferol (Vitamin D3), 5,000 UNIT PO DAILY Ascorbic Acid (Vitamin C), 500 MG PO UD Polyethylene Glycol 3350 (Miralax), 17 GM PO DAILY Ferrous Sulfate (Kp Ferrous Sulfate), 1 TAB PO DAILY Sodium Phosphates (Fleet Enema Six Pack), 1 EA MA UD PRN for Constipation Loratadine (Claritin), 10 MG PO DAILY Magnesium Hydroxide (Milk of Magnesia), 30 ML PO UD PRN for Constipation Insulin Aspart (Novolog), SC ACHS Lactobacillus Acidophilus (Lactinex), 1 TAB PO TID - Take the following medications the morning of surgery with a sip of water OTHERWISE NOTHING TO EAT OR DRINK AFTER MIDNIGHT: Acetaminophen Tab (Tylenol), 650 MG PO Q6 PRN for PAIN RATED 1-5 (may take if needed up to 4 hours prior to surgery) Oxycodone Hcl (Oxycodone Hcl), 10 MG PO Q6 PRN for BREAKTHROUGH PAIN (may take if needed up to 4 hours prior to surgery) Oxycodone Hcl (Oxycontin), 40 MG PO Q12 (may take if needed up to 4 hours prior to surgery) Oxycodone Ir (Roxicodone Ir), 10 MG PO MWF PRN for Severe Pain (may take if needed up to 4 hours prior to surgery) Dexamethasone (Dexamethasone), 2 MG PO DAILY Lorazepam (Ativan), 0.5 MG PO TID Gabapentin (Neurontin), 300 MG PO Q8 Metoprolol Succ (Toprol Xl) (Toprol-Xl), 25 MG PO BID Fluticasone Prop/Salmeterol (Advair Diskus 250/50 60 Dose), 1 PUFFS INH BID Ipratropium-Albuterol (Combivent Respimat), 1 PUFFS INH QID PRN for SOB/WHEEZING Omeprazole (Prilosec), 20 MG PO 4XWK - For Insulin Dependent Diabetic patients: Test blood sugar A.M. of surgery. - If Blood Sugar is GREATER THAN 150, take HALF of your regular dose of: Insulin Glargine (Lantus) - If Blood Sugar is LESS THAN 150, do not take any: Insulin Glargine ( Lantus) - Take the following medications as scheduled the night before surgery: Acetaminophen Tab (Tylenol), 650 MG PO Q6 PRN for PAIN RATED 1-5 Senna/Docusate Sod (Senokot S), 1 TAB PO HS Atorvastatin (Atorvastatin Calcium), 40 MG PO HS Oxycodone Hcl (Oxycodone Hcl), 10 MG PO Q6 PRN for BREAKTHROUGH PAIN Oxycodone Hcl (Oxycontin), 40 MG PO Q12 Oxycodone Ir (Roxicodone Ir), 10 Lorazepam (Ativan), 0.5 MG PO TID Gabapentin (Neurontin), 300 MG PO Q8 Metoprolol Succ (Toprol Xl) (Toprol-Xl), 25 MG PO BIDMG PO MWF PRN for Severe Pain Insulin Glargine (Lantus), 5 UNITS SC AMPM Insulin Aspart (Novolog), SC ACHS Fluticasone Prop/Salmeterol (Advair Diskus 250/50 60 Dose), 1 PUFFS INH BID Ipratropium-Albuterol (Combivent Respimat), 1 PUFFS INH QID PRN for SOB/WHEEZING Lactobacillus Acidophilus (Lactinex), 1 TAB PO TID If you have any questions please call us at [phone] or [phone] or [phone]
[~2016-12-03] VITALS: Ht 104.1 cm; Wt 70.9 kg
--- NOTE | 2016-12-03 06:08 | History and Physical ---
History & Physical Date of Service Dec 03, 2016. History & Physical Chief Complaint: End stage renal disease History of Present Illness The patient is a 55 year old male with multiple medical problems, including hx of PAD with RLE fem-pop in situ bypass in 2013 and subsequent [employer] and stenting of bypass in early 2014 to maintain patency, HTN, IDDM, CHF, He is now admitted for creation of a left upper arm av fistula using cephalic vein. Allergies Coded Allergies: Daptomycin (Verified Allergy, Unknown, WATER ON LUNGS, 06/03/14) POLLEN (Verified Allergy, Unknown, 06/03/14) Ciprofloxacin (Verified Adverse Reaction, Intermediate, NAUSEA AND DIARHHEA, 06/03/14) Surgical / Medical History Hx Cardiac Surgery: No Hx Abdominal Surgery: No Hx Cancer Surgery: No Hx Thoracic Surgery: No Hx Orthopedic: No Hx Urinary Tract Surgery: No HX Other Surgery: No Family History Coronary artery disease Hypertension Social History Smoking Status: Never Smoker Hx Tobacco Use In Past Year?: No Hx Alcohol Use - Type & Amnt: Yes (Rarely) Hx Substance Use -Type & Amnt: No Review of Systems Constitutional: + malaise Additional Comments: Unable to elicit d/t pt lethargic. Physical Exam: Constitutional: General Apperance: well-nourished, well-developed, obese Level of Distress: NAD (resting comfortably), acutely ill, chronically ill Psychiatric: Mental Status: lethargic, confused (with flat affect, lethargic) Orientation: to place, to person, not oriented to time Memory: recent memory abnormal, remote memory abnormal Head: normocephalic, atraumatic Eyes: EOM: EOMI ENMT: normal ENT inspection Neck: supple, trachea midline Lungs: Respiratory effort: no dyspnea Auscultation: no rhonchi, Cardiovascular: Apical Impulse: not displaced Heart Auscultation: no rubs, no gallops, II/ ELROY Peripheral Pulses: Pulses: full and equal, in all extremities except if noted Bruits: none appreciated Carotid Pulse: normal on the left, normal on the right Brachial Pulses: normal on the left, normal on the right Radial Pulse: normal on the left, normal on the right Femoral Pulse: decreased on the left, decreased on the right Posterior Tibialis Pulse: pertinent finding (nonpalpable) Dorsalis Pedis Pulse: pertinent finding (nonpalable) Abdomen: Bowel Sounds: normal Inspection & Palpation: soft, non-distended Musculoskeletal: pertinent finding (poor strength) Extremities: Upper Right: no cyanosis, no varicosities, edema Upper Left: no cyanosis, no varicosities, no palpable cord, edema Lower Right: no cyanosis, no varicosities, no palpable cord, edema, Lower Left: no cyanosis, no varicosities, no palpable cord, edema Neurologic: Sensation: grossly intact ASSESSMENT and PLAN: End stage renal disease Plan: Patient is admitted for creation of left upper arm cephalic vein fistula. I have discussed the risks options and benefits of the procedure with the patient. The patient understands the risks options and benefits and agrees to the procedure.
[~2016-12-03 08:23] MED LIST changes: +CEFAZOLIN 1000MG/55 ML D5W IV SCH; -OXYC-787 PO; +OXYC40TA34 PO; +SODIUM CHLORIDE 0.9% 1000ML 1,000 ML IV SCH; -liquid protein PO
[2016-12-03 09:16] LABS: PARTIAL THROMBOPLASTIN RATIO 1.1; PROTHROMBIN TIME (PATIENT) 10.4 SECONDS (9.0-12.0)
[2016-12-03 09:33] VITALS: BP 110/78; PULSE 98; TEMP 37.3; O2SAT 95; Ht 104.1 cm; Wt 70.9 kg
[2016-12-03 09:41] LABS: BUN/CREATININE RATIO 11.3 (10-20); CALCIUM 9.7 mg/dl (8.5-10.1); CREATININE 4.6 mg/dl (0.60-1.40); POTASSIUM 4.3 mmol/L (3.5-5.1)
[2016-12-03] MEDS ORDERED: DEXTROSE 50% 50 ML SYR ONE (09:43)
[2016-12-03] MEDS ORDERED: NURSING VERBAL MED ORDER ONE (09:45)
--- NOTE | 2016-12-03 10:06 | History & Physical Bridge Note ---
H&P Re-Evaluation Bridge Note: I have examined the patient, reviewed the History & Physical and in the interval since the performance of the History & Physical I have noted the following changes of clinical significance: No changes noted
[2016-12-03] MEDS ORDERED: LIDOCAINE HCL 2% 2 ML VIAL (20MG/ML) ONE (10:25)
[2016-12-03] MEDS ORDERED: MIDAZOLAM HCL 1 MG/ML 2ML VIAL ONE (10:25)
[2016-12-03] MEDS ORDERED: PROPOFOL IV EMULSION 10 MG/ML 20 ML VIAL IV ONE (10:25)
[2016-12-03] MEDS ORDERED: FENTANYL CITRATE INJ 50 MCG/1 ML 2 ML VIAL ONE ×2 (10:25→11:58)
[2016-12-03] MEDS ORDERED: BUPIVACAINE/EPINEPHRINE 0.5% MPF 1:200,000 10 ML VIAL ONE (10:29)
[2016-12-03] MEDS ORDERED: THROMBIN FOR SOLN 20000 UNIT KIT ONE (10:29)
[2016-12-03] MEDS ORDERED: GELATIN SPONGE 12-7MM ONE ×2 (10:29→10:31)
[2016-12-03] MEDS ORDERED: ATROPINE SULFATE 0.1 MG/ML 5ML SYR IV PRN (10:30)
[2016-12-03] MEDS ORDERED: LIDOCAINE HCL 1% 20 ML VIAL ONE (10:30)
[2016-12-03] MEDS ORDERED: ONDANSETRON INJ 2 MG/ML 2 ML VIAL IV PRN (10:30)
[2016-12-03] MEDS ORDERED: HEPARIN SOD (PORCINE) 1000 UNIT/ML 10 ML VIAL ONE (10:30)
[2016-12-03] MEDS ORDERED: FENTANYL CITRATE INJ 50 MCG/1 ML 2 ML VIAL IV PRN (10:30)
--- NOTE | 2016-12-03 12:35 | [facility] Post Operative Brief Note ---
Immediate Operative Summary Operative Date Dec 03, 2016. Pre-Operative Diagnosis End-stage renal disease Post-Operative Diagnosis End stage renal disease Procedure(s) Performed Left Upper Extremity Antecubital Cephalic Vein Arteriovenous Fistula Creation with interpositional gortex graft Surgeon Dr Bermudez Filament Cutter Surgeon(s) Farida Ramirez PA-C Estimated Blood Loss 50cc Findings good thrill Specimens None per surgeon Anesthesia MAC Complication(s) None Disposition Recovery Room / PACU
--- NOTE | 2016-12-03 12:37 | Discharge Instructions ---
Discharge Instructions Date of Service Dec 03, 2016. Visit Reason for Visit: End Stage Renal Disease On Hemodialysis Discharge Discharge Diagnosis / Problem: End stage renal disease Discharge Goals Goal(s): Therapeutic intervention Activity Recommendations Activity Limitations: per Instructions/Follow-up section Lifting Limitations: no more than 25 pounds Exercise/Sports Limitations: as tolerated Anesthesia . Post Anesthesia Instructions: If you have had General Anesthesia or IV Sedation: * Do not drive today. * Resume driving when surgeon permits. * Do not make important decisions or sign legal documents today. * Call surgeon for: 1. Temperature elevations greater than 101 degrees F. 2. Uncontrollable pain. 3. Excessive bleeding. 4. Persistent nausea and vomiting. 5. Medication intolerance (nausea, vomiting or rash). * For nausea and vomiting use only clear liquids such as: tea, soda, bouillon until nausea subsides, then gradually increase diet as tolerated. * If you have any concerns or questions, call your surgeon's office. If physician is unavailable and it is an emergency, call 911 or go to the nearest emergency room. . Instructions / Follow-Up Instructions / Follow-Up Call [phone] to schedule a follow up appointment if one not already scheduled. ACTIVITY RECOMMENDATIONS: See Above SPECIAL CARE INSTRUCTIONS: Call your doctor if: * Temperature above 101 degrees * Pain not relieved by pain medicine ordered * There is increased drainage or redness from any incision * You have any unanswered questions or concerns. Diet Recommendations Recommended Home Diet: resume previous diet Procedures Procedures Performed: Left Upper Extremity Antecubital Cephalic Vein Arteriovenous Fistula Creation with interpositional gortex graft Pending Studies Studies pending at discharge: no Medical Emergencies . Who to Call and When: Medical Emergencies: If at any time you feel your situation is an emergency, please call 911 immediately. . Non-Emergent Contact Non-Emergency issues call your: Surgeon . . "Provider Documentation" section prepared by Cody Bermudez. .
--- NOTE | 2016-12-03 12:55 | [facility] Operative Report ---
Operative Report Operative Date Dec 03, 2016. Pre-Operative Diagnosis End-stage renal disease Post-Operative Diagnosis End stage renal disease Procedure(s) Performed Left Upper Extremity Antecubital Cephalic Vein Arteriovenous Fistula Creation with interpositional gortex graft Surgeon Dr Bermudez Quality Systems Manager Surgeon(s) Farida Ramirez PA-C Estimated Blood Loss 50cc Findings good thrill Specimens None per surgeon Anesthesia MAC Complication(s) None Disposition Recovery Room / PACU Indications This is a 56-year-old male who has been on dialysis for some time. He has numerous failed fistulas in the past. He is now admitted for new fistula in his left arm. He understands the risks options benefits and agrees to go ahead with this procedure. Description of Procedure The patient was taken to the operating room and placed in the supine position. After the left arm was prepped and draped in a sterile manner, local anesthetic was administered. A transverse incision was made just the below the antecubital crease. This was carried down till the cephalic vein was identified. It was of good caliber at that level. The brachial artery was then isolated at that level and it also was of good caliber and very soft. The cephalic vein was then clamped distally and divided. Side branches and the distal end were ligated in that area. We attempted to flush the cephalic vein but it would not flush. I tried to pass a #3 Art and it only went up proximally 4 cm. It was decided that we should try to expose the cephalic vein slightly higher and then place an interposition graft if needed. Local anesthetic was administered higher up on the arm about 4 fingerbreaths above the other incision. A transverse incision was made. The cephalic vein was identified. The cephalic vein was pulled up from the other wound. It was transected just beyond the sclerotic area. Beyond that area it dilated up nicely. It dilated to approximately 4-5 mm in size. The vein or was too short to anastomose to the artery at the antecubital fossa. It Was Decided to Use an Interposition Dallas-Shaun Graft. This was approximately 5 Cm in Length. The 6 Mm Dallas-Shaun Graft was brought to the Operative Field. The Cephalic Vein Was Then beveled Just above the Sclerotic Area. The Dallas Graft Was Anastomosed End-To- End to the Cephalic Vein in the Usual Vascular Fashion. Next the Dallas Graft Was Passed through a Tunnel down to the Brachial Artery. The Brachial Artery Was Clamped Proximally and Distally. A longitudinal Arteriotomy Was Then Made. The Dallas-Shaun Graft Was Beveled Appropriately. The brachial artery was anastomosed to The Dallas-Shaun Graft using a CV 6 Dallas-Shaun Suture in Usual Vascular Fashion. Prior to Completing the Closure Back Bleeding and forebleeding Was allowed to Occur. The Final Few Sutures Were Placed and Securely Tied. The clamps were removed from the Brachial Artery. Good Flow Was Seen through the Fistula. There Were 2 Bleeding Sites Seen in the End-To- End Anastomosis between the Graft and the Vein. These Were Controlled with Interrupted CV 6 Sutures. Adequate Hemostasis Was Seen of the Wounds and the Anastomosis at That Time. There Was a Good Thrill in the Vein beyond the Dallas Graft. The wounds were then closed in the Usual Fashion Using a Running 3-0 Vicryl Suture for the subcutaneous tissue and a Running 4-0 Subcuticular Vicryl Suture for the Skin Edges. Dermabond was Used for a Dressing. The patient Left the Operating Room in Satisfactory Condition and Tolerated the Procedure Well Farida Ramirez Pac assisted due to lack of resident availability and was necessary for prepping, draping, retraction, wound closure defects, subQ and skin closure and was necessary for the case.. I attest to the content of the Intraoperative Record and any orders documented therein. Any exceptions are noted below.
[2016-12-03 13:30] VITALS: BP 83/63; PULSE 85; TEMP 36.7; O2SAT 99
[2016-12-03 14:00] VITALS: BP 95/72; PULSE 87; TEMP 36.7; O2SAT 99
--- NOTE | 2016-12-03 14:02 | Anesthesiology Progress Note ---
Anesthesia Post Op Note Date & Time Dec 03, 2016 at 14:01 Vital Signs Pain Intensity: 0 Vital Signs Past 12 Hours Date Time Temp Pulse Resp B/P (MAP) Pulse Ox O2 Delivery O2 Flow Rate FiO2 12/03/16 13:30 36.7 85 20 83/63 99 Room Air 85 12/03/16 13:20 36.3 81 18 84/62 100 Nasal Cannula 2 12/03/16 13:10 88 18 81/61 100 Mask 5 12/03/16 13:00 36.4 86 18 96/71 98 Mask 10 12/03/16 09:33 37.3 98 20 110/78 (89) 95 Nasal Cannula 4 Notes Mental Status: alert / awake / arousable, participated in evaluation Pt Amnestic to Procedure: Yes Nausea / Vomiting: adequately controlled Pain: adequately controlled Airway Patency, RR, SpO2: stable & adequate BP & HR: stable & adequate Hydration State: stable & adequate Anesthetic Complications: no major complications apparent
[2016-12-03 14:30] VITALS: BP 98/65; PULSE 89; TEMP 36.7; O2SAT 99
--- NOTE | 2016-12-03 15:43 | Progress Note ---
Progress Note Date of Service Dec 03, 2016. Progress Note I assisted Dr Bermudez with Alvarado Daniels' Left Upper Extremity Antecubital Cephalic Vein Arteriovenous Fistula Creation with interpositional gortex graft, on 12/03/16, d/t lack of resident availability.
== END 2016-12-03 15:20 | disposition home or self-care (01) ==
LOC: C.ACU 08:23
PROVIDERS: ATTEND Surgery Vascular Surgery
DX: I13.2 Hypertensive heart and chronic kidney disease with heart failure and with stage 5 chronic kidney disease, or end stage renal disease (principal); N18.6 End stage renal disease; I50.9 Heart failure, unspecified; I73.9 Peripheral vascular disease, unspecified; E11.9 Type 2 diabetes mellitus without complications; Z99.2 Dependence on renal dialysis; Z82.49 Family history of ischemic heart disease and other diseases of the circulatory system

== ENCOUNTER 2016-12-06 21:14 | Inpatient (IN) | payer OTHER ==
[~2016-12-06] VITALS: Ht 165.1 cm; Wt 62.2 kg
[~2016-12-06 21:14] MED LIST changes: -CEFAZOLIN 1000MG/55 ML D5W IV SCH; -SODIUM CHLORIDE 0.9% 1000ML 1,000 ML IV SCH
[2016-12-06] MEDS ORDERED: PIPERACILLIN/TAZOBACTAM 4.5 GM/100ML D5W IV STA (22:31)
[2016-12-06] MEDS ORDERED: SODIUM CHLORIDE 0.9% 250ML 250 ML IV STA (22:31)
--- NOTE | 2016-12-06 22:47 | EMERGENCY ROOM VISIT NOTE ---
History Report prepared by Abbie: Jone Max Under the Supervision of: Dr. Raheel Givens M.D. First contact with patient: 22:25 Chief Complaint: ALTERED MENTAL STATUS Stated Complaint: MENTAL STATUS CHANGE History of Present Illness This HPI is limited due to the mental status of the patient. The patient is a 56 year old male who presents to the Emergency Room from [facility] with an Altered Mental Status. Per nursing staff the patient was not behaving normally today. The [facility] staff also notes that the patient has been complaining of abdominal pain for the past week. He had a US of his abdomen performed today which was concerning for gall bladder disease. The patient is on dialysis, but refused his normal treatment today. He denies any vomiting, headaches, or shortness of breath recently. Source of History: patient, retirement notes, nursing staff Onset: today Position: other (AMS ) Quality: other (AMS) Associated Symptoms: + abdominal pain, No headache, No SOB, No vomiting Review of Systems ROS limited due to the mental status of the patient. Past Medical & Surgical Medical Problems: (1) Acute on chronic renal failure (2) Anemia (3) Arterial occlusion (4) Cardiomyopathy (5) CHF (congestive heart failure) (6) Chronic back pain (7) CKD (chronic kidney disease), stage III (8) Coronary artery disease (9) DM type 2 (diabetes mellitus, type 2) (10) Fever (11) HTN (hypertension) (12) Hyperlipidemia (13) Hypoxia (14) Infected permcath (15) Leukocytosis (16) Obesity (17) Osteomyelitis (18) PAD (peripheral artery disease) (19) PVD (peripheral vascular disease) (20) Unresponsiveness Surgical Problems: (1) ICD (implantable cardioverter-defibrillator), single, in situ (2) S/P AKA (above knee amputation) (3) S/P femoral-popliteal bypass surgery (4) Toe amputation status Family History Coronary artery disease MOTHER FH: atrial fibrillation FATHER FH: cancer FATHER Hypertension SISTER Valvular heart disease FATHER Social History Smoking Status: Former Smoker Alcohol Use: occasionally Marital Status: single Housing Status: retirement Occupation Status: disabled Current/Historical Medications Scheduled Ascorbic Acid (Vitamin C), 500 MG PO UD Aspirin (Aspirin Ec), 81 MG PO DAILY Atorvastatin (Atorvastatin Calcium), 40 MG PO HS Calcium Acetate (Phosphate Bin (Phoslo 667 Mg), 2 CAPSULES PO WM Cholecalciferol (Vitamin D3), 5,000 UNIT PO DAILY Dexamethasone (Dexamethasone), 2 MG PO DAILY Ferrous Sulfate (Kp Ferrous Sulfate), 325 MG PO QAM Fluticasone Prop/Salmeterol (Advair Diskus 250/50 60 Dose), 1 PUFFS INH BID Gabapentin (Neurontin), 300 MG PO Q8 Insulin Aspart (Novolog), SC ACHS Insulin Glargine (Lantus), 5 UNITS SC AMPM Lactobacillus Acidophilus (Lactinex), 1 TAB PO TID Loratadine (Claritin), 10 MG PO DAILY Lorazepam (Ativan), 0.5 MG PO TID Metoprolol Succ (Toprol Xl) (Toprol-Xl), 25 MG PO BID Omeprazole (Prilosec), 20 MG PO 4XWK Oxycodone Hcl (Oxycontin), 40 MG PO Q12 Polyethylene Glycol 3350 (Miralax), 17 GM PO DAILY Senna/Docusate Sod (Senokot S), 1 TAB PO BID Sertraline (Zoloft), 50 MG PO QAM Vancomycin Hcl In Dextrose (Vancomycin Hcl In Dextros), 500 MG IV MWF [Liquid Protein], 30 ML PO DAILY Scheduled PRN Acetaminophen Tab (Tylenol), 650 MG PO Q6 PRN for PAIN RATED 1-5 Home O2 Therapy (Oxygen), 3 LITERS NA PRN PRN for Shortness of Breath Ipratropium-Albuterol (Combivent Respimat), 1 PUFFS INH QID PRN for SOB/WHEEZING Magnesium Hydroxide (Milk of Magnesia), 30 ML PO UD PRN for Constipation Oxycodone Hcl (Oxycodone Hcl), 10 MG PO Q6 PRN for BREAKTHROUGH PAIN Sodium Phosphates (Fleet Enema Six Pack), 1 EA PA UD PRN for Constipation Allergies Coded Allergies: Daptomycin (Verified Allergy, Severe, WATER ON LUNGS, 12/06/16) pt stated this allergy is "lethal" for him POLLEN (Verified Allergy, Unknown, 12/06/16) Ciprofloxacin (Verified Adverse Reaction, Intermediate, NAUSEA AND DIARHHEA, 12/06/16) Physical Exam Vital Signs Date Time Temp Pulse Resp B/P (MAP) Pulse Ox O2 Delivery O2 Flow Rate FiO2 12/07/16 00:11 82 20 97/74 97 Nasal Cannula 2.0 12/06/16 22:43 98 Nasal Cannula 2.0 12/06/16 22:28 79 18 91/64 96 Nasal Cannula 2.0 12/06/16 22:27 79 12/06/16 21:14 36.9 91 20 91/60 94 Room Air Physical Exam GENERAL: Patient is in no acute distress. HEENT: No acute trauma, normocephalic atraumatic, mucous membranes moist, no nasal congestion, no scleral icterus. NECK: No stridor, no adenopathy, no meningismus, trachea is midline. LUNGS: Equal breath sounds bilaterally. No wheezing when listening anteriorly, no respiratory distress on exam. HEART: Without murmurs gallops or rubs, regular rate and rhythm. ABDOMEN: Soft, diffusely mildly tender, bowel sounds positive, no hernias, no peritonitis. There is a Butler catheter in place, draining dark and dirty appearing urine. EXTREMITIES: Bilateral above the knee amputations, no cellulitis. NEUROLOGIC: Moving all extremities, somewhat confused, sleeping but arouses to voice, no facial droop. SKIN: No rash, no jaundice, mild diaphoresis. Medical Decision & Procedures ER Provider Diagnostic Interpretation: OUTPATIENT ULTRASOUND REPORT Facility: [facility]. Patient: YOUNG HINKLE Considering ultrasound findings and history further evaluation recommended. Impression: 1. Technically very difficult exam. 2. Nonspecific mild gallbladder wall thickening, cholecystitis not excluded, no gross gallstones. Enlarged liver. Top normal size spleen. 2. Left kidney poorly visualized. Right Kidney demonstrates no hydronephrosis. 3. Pancreas not visualized. Further evaluation recommended. Signed by Jimmy Rico D.O. Brain CT shows some motion artifact. No acute intracranial bleeding. No evidence for intracranial mass. Abdominal and pelvis CT shows constipation. There was possible sludge in the gallbladder. No bowel obstruction. No evidence for acute cholecystitis. No abscess noted. CHEST X-RAY: Per my interpretation. No focal pneumonia, poor inspiratory effort. No CHF present. Film is unchanged compared to previous. Laboratory Results 12/06/16 22:50 Red Blood Count 3.83, Mean Corpuscular Volume 86.9, Mean Corpuscular Hemoglobin 27.9, Mean Corpuscular Hemoglobin Concent 32.1, Mean Platelet Volume 9.1, Neutrophils (%) (Auto) 87.3, Lymphocytes (%) (Auto) 6.7, Monocytes (%) (Auto) 5.7, Eosinophils (%) (Auto) 0.0, Basophils (%) (Auto) 0.0, Neutrophils # (Auto) 10.70, Lymphocytes # (Auto) 0.82, Monocytes # (Auto) 0.70, Eosinophils # (Auto) 0.00, Basophils # (Auto) 0.00 12/06/16 22:50 Test 12/06/16 22:15 12/06/16 22:41 12/06/16 22:50 12/06/16 22:56 Urine Color ORANGE Urine Appearance TURBID (CLEAR) Urine pH 5.0 (4.5-7.5) Urine Specific [place] 1.024 (1.000-1.030) Urine Protein 3+ (NEG) Urine Glucose (UA) NEG (NEG) Urine Ketones TRACE (NEG) Urine Occult Blood 3+ (NEG) Urine Nitrite POS (NEG) Urine Bilirubin NEG (NEG) Urine Urobilinogen NEG (NEG) Urine Leukocyte Esterase LARGE (NEG) Urine WBC (Auto) >30 /hpf (0-5) Urine RBC (Auto) 10-30 /hpf (0-4) Urine Hyaline Casts (Auto) >30 /lpf (0-5) Urine Epithelial Cells (Auto) >30 /lpf (0-5) Urine Bacteria (Auto) NEG (NEG) Urine Pathogenic Casts /lpf (0) Urine Yeast (Auto) PRESENT (NONE PRSENT) Bedside Glucose 216 mg/dl (70-99) White Blood Count 12.26 K/uL (4.8-10.8) Red Blood Count 3.83 M/uL (4.7-6.1) Hemoglobin 10.7 g/dL (14.0-18.0) Hematocrit 33.3 % (42-52) Mean Corpuscular Volume 86.9 fL (80-100) Mean Corpuscular Hemoglobin 27.9 pg (25-34) Mean Corpuscular Hemoglobin Concent 32.1 g/dl (32-36) Platelet Count 169 K/uL (130-400) Mean Platelet Volume 9.1 fL (7.4-10.4) Neutrophils (%) (Auto) 87.3 % Lymphocytes (%) (Auto) 6.7 % Monocytes (%) (Auto) 5.7 % Eosinophils (%) (Auto) 0.0 % Basophils (%) (Auto) 0.0 % Neutrophils # (Auto) 10.70 K/uL (1.4-6.5) Lymphocytes # (Auto) 0.82 K/uL (1.2-3.4) Monocytes # (Auto) 0.70 K/uL (0.11-0.59) Eosinophils # (Auto) 0.00 K/uL (0-0.5) Basophils # (Auto) 0.00 K/uL (0-0.2) RDW Standard Deviation 45.6 fL (36.4-46.3) RDW Coefficient of Variation 14.3 % (11.5-14.5) Immature Granulocyte % (Auto) 0.3 % Immature Granulocyte # (Auto) 0.04 K/uL (0.00-0.02) Prothrombin Time 10.6 SECONDS (9.0-12.0) Prothromb Time International Ratio 1.0 (0.9-1.1) Activated Partial Thromboplast Time 29.2 SECONDS (21.0-31.0) Partial Thromboplastin Ratio 1.1 Anion Gap 9.0 mmol/L (3-11) Est Creatinine Clear Calc Drug Dose 13.1 ml/min Estimated GFR () 12.5 Estimated GFR (Non- 10.8 BUN/Creatinine Ratio 11.6 (10-20) Calcium Level 9.4 mg/dl (8.5-10.1) Magnesium Level 2.5 mg/dl (1.8-2.4) Total Bilirubin 0.5 mg/dl (0.2-1) Aspartate Amino Transf (AST/SGOT) 15 U/L (15-37) Alanine Aminotransferase (ALT/SGPT) 8 U/L (12-78) Alkaline Phosphatase 97 U/L (45-117) Total Protein 6.6 gm/dl (6.4-8.2) Albumin 2.5 gm/dl (3.4-5.0) Globulin 4.1 gm/dl (2.5-4.0) Albumin/Globulin Ratio 0.6 (0.9-2) Bedside Lactic Acid Venous 0.75 mmol/L (0.90-1.70) Laboratory results reviewed by me. Medications Administered Medications (Trade) Dose Ordered Sig/Edin Route Start Time Stop Time Status Last Admin Dose Admin Piperacillin Sod/ Tazobactam Sod (Zosyn Iv) 4.5 gm ONE STAT IV 12/06/16 22:31 12/06/16 22:35 DC 12/07/16 00:10 4.5 GM Sodium Chloride 250 ml @ 999 mls/hr Q16M STAT IV 12/06/16 22:31 12/06/16 22:46 DC 12/07/16 00:09 999 MLS/HR ECG Indication: altered mental status Rate (beats per minute): 85 Rhythm: normal sinus Findings: T-wave inversion (Lateral, consistent with possible ischemia), other (NO ST elevation) Comparison ECG Date: Change: no significant change ED Course 2225: The patient was evaluated in room C9. A complete history and physical exam was performed. 2230: Ordered Sodium Chloride 250 mL @ 999 mL/hr IV, Zosyn 4.5 gm IV. 0015: Spoke with case management and the on-call hospitalist was consulted. Medical Decision Differential Diagnosis includes; sepsis, acute cholecystitis, diverticulitis, UTI, stroke, intracranial bleeding, electrolyte imbalance, anemia, cellulitis. There is a mild leukocytosis, this is consistent with infection. No worrisome anemia. Renal panel testing shows his need for dialysis, potassium was adequate. There was no evidence for hepatitis. Lactic acid level was not elevated making severe sepsis less likely. Blood cultures are pending. Chest film showed some chronic findings, no true pneumonia. Brain CT showed no acute bleed or mass effect. Abdominal and pelvis CT showed some constipation, there was some sludge in the gallbladder, no evidence for acute cholecystitis. No acute surgical process by CT scan. Urinalysis does show infection. Urine culture is pending. The patient received a small amount of IV saline, he was given IV Zosyn for antibiotic coverage. The patient presents with a change in mental status. He does have a UTI which may be causing his difficulty. He also was constipated which may be part of why he is having some abdominal pain. With the mental status changes and the findings of UTI, admission/observation is warranted. I spoke to the patient and case management. The on-call hospitalist was consulted. Medication Reconcilliation Current Medication List: was personally reviewed by me Blood Pressure Screening Patient's blood pressure: Normal blood pressure Impression Primary Impression: Change in mental status Additional Impressions: UTI (urinary tract infection) Leukocytosis Scribe Attestation The scribe's documentation has been prepared under my direction and personally reviewed by me in its entirety. I confirm that the note above accurately reflects all work, treatment, procedures, and medical decision making performed by me. Departure Information Dispostion Being Evaluated By Hospitalist Referrals Delmi Avila (PCP) Patient Instructions My [facility] Health Problem Qualifiers
[2016-12-06 22:53] LABS: URINE APPEARANCE TURBID (CLEAR); URINE COLOR ORANGE; URINE EPITHELIAL CELL AUTO >30 /lpf (0-5); URINE NITRITE POS (NEG); URINE SPECIFIC GRAVITY 1.024 (1.000-1.030); UROBILINOGEN NEG (NEG); ZZURINE CULT IF INDIC CATH YES
[2016-12-06 22:54] LABS: MANUAL MICROSCOPIC REQUIRED? NO; REVIEW REQ? YES
[2016-12-06 23:00] LABS: URINE BILIRUBIN NEG (NEG)
[2016-12-06 23:03] LABS: COMPLETE YES; HEMATOCRIT 33.3 % (42-52); IG% 0.3 %; LYMPH % 6.7 %; LYMPH ABS # 0.82 K/uL (1.2-3.4); MEAN CELL VOLUME 86.9 fL (80-100); MEAN CORPUSCULAR HEMOGLOBIN 27.9 pg (25-34); MEAN CORPUSCULAR HGB CONC 32.1 g/dl (32-36); MEAN PLATELET VOLUME 9.1 fL (7.4-10.4); MONO % 5.7 %; NEUT % 87.3 %; PLATELET COUNT 169 K/uL (130-400); RED BLOOD COUNT 3.83 M/uL (4.7-6.1); WHITE BLOOD COUNT 12.26 K/uL (4.8-10.8)
[2016-12-06 23:15] LABS: PARTIAL THROMBOPLASTIN RATIO 1.1; PROTHROMBIN TIME (PATIENT) 10.6 SECONDS (9.0-12.0)
[2016-12-06] MEDS ORDERED: LIQUID PROTEIN PO (23:24)
[2016-12-06] MEDS ORDERED: SERT50TA PO (23:24)
[2016-12-06] MEDS ORDERED: NVLG SC (23:24)
[2016-12-06 23:45] LABS: ALB/GLOB RATIO 0.6 (0.9-2); BUN/CREATININE RATIO 11.6 (10-20); CALCIUM 9.4 mg/dl (8.5-10.1); CREATININE 5.4 mg/dl (0.60-1.40); MAGNESIUM 2.5 mg/dl (1.8-2.4); POTASSIUM 4.5 mmol/L (3.5-5.1)
[2016-12-07] VITALS (19 sets, daily range): BP systolic 74–131; BP diastolic 43–99; PULSE 50–108; TEMP 36.8–38; O2SAT 93–98; BMI 25.2
[2016-12-07] MEDS ORDERED: ACETAMINOPHEN 325 MG TAB PO PRN ×2 (01:00→01:30)
[2016-12-07 01:18] LABS: C-REACTIVE PROTEIN 12.3 mg/dl (0-0.29)
[2016-12-07] MEDS ORDERED: SOD PHOSPHATE/SOD BIPHOSPHATE ENEMA 132 ML BTL PR STA (01:22)
[2016-12-07] MEDS ORDERED: VANCOMYCIN HCL IV SCH (01:30)
[2016-12-07] MEDS ORDERED: [UNRECOGNIZED DRUG - OTHER] IV SCH (01:30)
[2016-12-07] MEDS ORDERED: SOD PHOSPHATE/SOD BIPHOSPHATE ENEMA 132 ML BTL PR PRN (01:30)
[2016-12-07] MEDS ORDERED: DEXTROSE IV SCH (01:30)
[2016-12-07] MEDS ORDERED: IPRATROPIUM BROMIDE/ALBUTEROL respimat INH INH PRN (01:30)
[2016-12-07] MEDS ORDERED: MAGNESIUM HYDROXIDE SUSP 30 ML UDC PO PRN (01:30)
[2016-12-07] MEDS ORDERED: IV FLUIDS COMPLETED PRN (01:45)
--- NOTE | 2016-12-07 01:47 | History and Physical ---
History & Physical Date & Time of Service: Dec 07, 2016 at 01:28 Chief Complaint: Mental Status Change Primary Care Physician: Delmi Avila History of Present Illness sent to ER from [facility] due to change in mental status. vague change but wasn't acting like himself - more easily confused. pt seems to recognize me as i enter the room, but then otherwise is fairly hazy on Hx details. knows he's in [facility], doesn't know the year. notes that he's feeling better than he was before, but only loosely relates abdominal discomfort (circles entirety of abdomen, mostly from about umbilicus down, b/l, with both hands) to express where the pain was. asked three times in three different ways as far as quality of pain when it was worse, but all he relates is that it feels better now than it did. denies f/c/s. denies CP or SOB. denies any leg / wound / stump problems. pt missed HD today, but he was not able to relate this to me. HPI/ROS fairly limited due to mentation. pt known to me from prior taking care of him at [facility] through mid- july. has severe PVD and multiple comorbidities, osteomyelitis, DM. has had frequent changes in mentation, sometimes due to fairly minor inciting factors. Past Medical/Surgical History Medical Problems: (1) Anemia Status: Chronic (2) Cardiomyopathy Status: Chronic (3) CHF (congestive heart failure) Permanent Comment: EF 20% Status: Chronic (4) Chronic back pain Status: Chronic (5) CKD (chronic kidney disease), stage III Status: Chronic (6) Coronary artery disease Status: Chronic (7) DM type 2 (diabetes mellitus, type 2) Status: Chronic (8) HTN (hypertension) Status: Chronic (9) Hyperlipidemia Status: Chronic (10) Obesity Status: Chronic (11) Osteomyelitis Permanent Comment: history of vertebral osteomyelitis and diskitis November 2015 Status: Resolved (12) PAD (peripheral artery disease) Status: Chronic (13) PVD (peripheral vascular disease) Status: Chronic Surgical Problems: (1) ICD (implantable cardioverter-defibrillator), single, in situ Permanent Comment: 10/31 Status: Chronic (2) S/P AKA (above knee amputation) Permanent Comment: bilateral LE Status: Chronic (3) S/P femoral-popliteal bypass surgery Permanent Comment: Right 1-12, with angioplast 08/30, with stent 06/02 Status: Chronic (4) Toe amputation status Permanent Comment: Right 4 toe Status: Chronic Family History Coronary artery disease MOTHER FH: atrial fibrillation FATHER FH: cancer FATHER Hypertension SISTER Valvular heart disease FATHER Social History Smoking Status: Former Smoker Alcohol Use: none Drug Use: none Marital Status: single Housing status: shelter Occupational Status: disabled Immunizations History of Influenza Vaccine: Yes Influenza Vaccine Date: Jun 17, 2014 History of Tetanus Vaccine?: Yes Tetanus Immunization Date: Jun 18, 2013 History of Pneumococcal: Yes Pneumococcal Date: Nov 18, 2001 History of Hepatitis B Vaccine: Yes Hepatitis Immunization Date: Dec 15, 2013 Multi-Drug Resistant Organisms History of MDRO: Yes Type of MDRO: MRSA Allergies Coded Allergies: Daptomycin (Verified Allergy, Severe, WATER ON LUNGS, 12/06/16) pt stated this allergy is "lethal" for him POLLEN (Verified Allergy, Unknown, 12/06/16) Ciprofloxacin (Verified Adverse Reaction, Intermediate, NAUSEA AND DIARHHEA, 12/06/16) Home Medications Scheduled Ascorbic Acid (Vitamin C), 500 MG PO UD Aspirin (Aspirin Ec), 81 MG PO DAILY Atorvastatin (Atorvastatin Calcium), 40 MG PO HS Calcium Acetate (Phosphate Bin (Phoslo 667 Mg), 2 CAPSULES PO WM Cholecalciferol (Vitamin D3), 5,000 UNIT PO DAILY Dexamethasone (Dexamethasone), 2 MG PO DAILY Ferrous Sulfate (Kp Ferrous Sulfate), 325 MG PO QAM Fluticasone Prop/Salmeterol (Advair Diskus 250/50 60 Dose), 1 PUFFS INH BID Gabapentin (Neurontin), 300 MG PO Q8 Insulin Aspart (Novolog), SC ACHS Insulin Glargine (Lantus), 5 UNITS SC AMPM Lactobacillus Acidophilus (Lactinex), 1 TAB PO TID Loratadine (Claritin), 10 MG PO DAILY Lorazepam (Ativan), 0.5 MG PO TID Metoprolol Succ (Toprol Xl) (Toprol-Xl), 25 MG PO BID Omeprazole (Prilosec), 20 MG PO 4XWK Oxycodone Hcl (Oxycontin), 40 MG PO Q12 Polyethylene Glycol 3350 (Miralax), 17 GM PO DAILY Senna/Docusate Sod (Senokot S), 1 TAB PO BID Sertraline (Zoloft), 50 MG PO QAM Vancomycin Hcl In Dextrose (Vancomycin Hcl In Dextros), 500 MG IV MWF [Liquid Protein], 30 ML PO DAILY Scheduled PRN Acetaminophen Tab (Tylenol), 650 MG PO Q6 PRN for PAIN RATED 1-5 Home O2 Therapy (Oxygen), 3 LITERS NA PRN PRN for Shortness of Breath Ipratropium-Albuterol (Combivent Respimat), 1 PUFFS INH QID PRN for SOB/WHEEZING Magnesium Hydroxide (Milk of Magnesia), 30 ML PO UD PRN for Constipation Oxycodone Hcl (Oxycodone Hcl), 10 MG PO Q6 PRN for BREAKTHROUGH PAIN Sodium Phosphates (Fleet Enema Six Pack), 1 EA ME UD PRN for Constipation Review of Systems ROS otherwise unobtainable except for as above, all other ROS otherwise negative except for as above as best as can be ascertained Constitutional: No fever, No chills, No sweats Respiratory: No shortness of breath Cardiovascular: No chest pain Abdomen: + pain Physical Exam Vital Signs Date Time Temp Pulse Resp B/P (MAP) Pulse Ox O2 Delivery O2 Flow Rate FiO2 12/07/16 01:26 77 18 82/65 99 Nasal Cannula 2.0 12/07/16 00:11 82 20 97/74 97 Nasal Cannula 2.0 12/06/16 22:43 98 Nasal Cannula 2.0 12/06/16 22:28 79 18 91/64 96 Nasal Cannula 2.0 12/06/16 22:27 79 12/06/16 21:14 36.9 91 20 91/60 94 Room Air General Appearance: no apparent distress Head: normocephalic, atraumatic Eyes: normal inspection, EOMI ENT: normal ENT inspection, hearing grossly normal Neck: no JVD, trachea midline Respiratory/Chest: chest non-tender, lungs clear, normal breath sounds, no respiratory distress, no accessory muscle use Cardiovascular: regular rate, rhythm, no edema, no gallop, no JVD, no murmur Abdomen/GI: soft, + tenderness (moderately distended, moderate diffuse tenderness worse lower abdomen, no guarding no rebound no rigidity. ) Back: + pertinent finding (difficult exam due to abdomen, positioning in bed, b /l leg amputations) Neurologic/Psych: community relations representative II-XII nml as tested, no motor/sensory deficits, alert, + disoriented, + pertinent finding (see HPI - fairly confused but in the context of his mentation, has shown this type of confusion with fairly minor inciting factors before) Skin: normal color, warm/dry, + pertinent finding (R stump wound small amount of scab no dehiscence no erythema no ulceration nontender, L stump c/d, no remaining wound, no ulcerations nontender no erythema) Diagnostics Laboratory Results Results Past 24 Hours Test 12/06/16 22:15 12/06/16 22:41 12/06/16 22:50 12/06/16 22:56 Range/Units Urine Color ORANGE Urine Appearance TURBID CLEAR Urine pH 5.0 4.5-7.5 Urine Specific [place] 1.024 1.000-1.030 Urine Protein 3+ NEG Urine Glucose (UA) NEG NEG Urine Ketones TRACE NEG Urine Occult Blood 3+ NEG Urine Nitrite POS NEG Urine Bilirubin NEG NEG Urine Urobilinogen NEG NEG Urine Leukocyte Esterase LARGE NEG Urine WBC (Auto) >30 0-5 /hpf Urine RBC (Auto) 10-30 0-4 /hpf Urine Hyaline Casts (Auto) >30 0-5 /lpf Urine Epithelial Cells (Auto) >30 0-5 /lpf Urine Bacteria (Auto) NEG NEG Urine Pathogenic Casts 0 /lpf Urine Yeast (Auto) PRESENT NONE PRSENT Bedside Glucose 216 70-99 mg/dl White Blood Count 12.26 4.8-10.8 K/uL Red Blood Count 3.83 4.7-6.1 M/uL Hemoglobin 10.7 14.0-18.0 g/dL Hematocrit 33.3 42-52 % Mean Corpuscular Volume 86.9 80-100 fL Mean Corpuscular Hemoglobin 27.9 25-34 pg Mean Corpuscular Hemoglobin Concent 32.1 32-36 g/dl Platelet Count 169 130-400 K/uL Mean Platelet Volume 9.1 7.4-10.4 fL Neutrophils (%) (Auto) 87.3 % Lymphocytes (%) (Auto) 6.7 % Monocytes (%) (Auto) 5.7 % Eosinophils (%) (Auto) 0.0 % Basophils (%) (Auto) 0.0 % Neutrophils # (Auto) 10.70 1.4-6.5 K/uL Lymphocytes # (Auto) 0.82 1.2-3.4 K/uL Monocytes # (Auto) 0.70 0.11-0.59 K/uL Eosinophils # (Auto) 0.00 0-0.5 K/uL Basophils # (Auto) 0.00 0-0.2 K/uL RDW Standard Deviation 45.6 36.4-46.3 fL RDW Coefficient of Variation 14.3 11.5-14.5 % Immature Granulocyte % (Auto) 0.3 % Immature Granulocyte # (Auto) 0.04 0.00-0.02 K/uL Prothrombin Time 10.6 9.0-12.0 SECONDS Prothromb Time International Ratio 1.0 0.9-1.1 Activated Partial Thromboplast Time 29.2 21.0-31.0 SECONDS Partial Thromboplastin Ratio 1.1 Sodium Level 133 136-145 mmol/L Potassium Level 4.5 3.5-5.1 mmol/L Chloride Level 96 98-107 mmol/L Carbon Dioxide Level 28 21-32 mmol/L Anion Gap 9.0 3-11 mmol/L Blood Urea Nitrogen 63 7-18 mg/dl Creatinine 5.40 0.60-1.40 mg/dl Est Creatinine Clear Calc Drug Dose 13.1 ml/min Estimated GFR () 12.5 Estimated GFR (Non- 10.8 BUN/Creatinine Ratio 11.6 10-20 Random Glucose 162 70-99 mg/dl Calcium Level 9.4 8.5-10.1 mg/dl Magnesium Level 2.5 1.8-2.4 mg/dl Total Bilirubin 0.5 0.2-1 mg/dl Aspartate Amino Transf (AST/SGOT) 15 15-37 U/L Alanine Aminotransferase (ALT/SGPT) 8 12-78 U/L Alkaline Phosphatase 97 45-117 U/L C-Reactive Protein 12.30 0-0.29 mg/dl Total Protein 6.6 6.4-8.2 gm/dl Albumin 2.5 3.4-5.0 gm/dl Globulin 4.1 2.5-4.0 gm/dl Albumin/Globulin Ratio 0.6 0.9-2 Bedside Lactic Acid Venous 0.75 0.90-1.70 mmol/L Microbiology Results 12/06/16 Blood Culture, Received Pending 12/06/16 Blood Culture, Received Pending 12/06/16 Urine Culture, Received Pending Diagnostic Radiology CXR off angle, R lung markedly diminished and severe cardiomegaly but appearing more due to rotation. no noted aortic pathology or significant noted mediastinal pathology on chest portion of CT CT abd/pelvis - bibasilar consolidation appearance, subcentimeter nodules LLL, cardiomegaly and coronary calcifications, hyperdense gallbladder findings favor sludge no findings of acute inflammation, nonobstructing nephrolith vs vascular caclification in kidneys, blair in bladder, moderate stool ball in rectum with minimal prominence of rectal wal suggestive of fecal impaction, normal appendix , no appearance of bowel obstruction CT head - no acute intracranial abnormalities, looks similar to 07/15/16 particularly in regards to small vessel changes and cerebral volume loss US abd done at [facility]: liver partly seen has sapeckled inhomogenous echo pattern can be seen with fibrous fatty infiltration, hepatocellular diseas, lesions may not be demonstrated. liver is enlarged measuring approximately 19cm. gallbladder partly seen demonstrate no gross shadowing stones, nonspecific gallbladder wall mild thickening observed, can be seen with cholecystitis in appropriate clinical setting among other etiology. bile duct not well seen, does not appear grossly dilated. left kidney is poorly visualized, parenchyma collecting system not well seen,R kidneys partly seen, its measured 11cm, no gross hydronephrosis, spleen top normal size at 12cm. small segment of abdomnial aorta seen measures in normal range. bowel related abnormalities not be demonstrated on ultrasound Impression Assessment and Plan altered mental status // ?encephalopathy -pt's baseline is such that it often does not take much to create an altered mental status -- at this point main ddx is infectious (UTI vs pneumonia vs bacteremia) vs fecal impaction related. favor impaction since no obvious s/s infection, urinalysis positive but likely chronically so given chronic blair -CRP 12, nonspecifically not negative. same with WBC -check procalcitonin for further statification on ?further abx. hold for now - high risk for iatrogenesis with any unnecessary treatment and certainly not overtly septic so watchful waiting appears most appropriate with question of infection -- if cultures (+) or procalcitonin overtly elevated - then continue abx fecal impaction -does not examine physically or radiographically like bowel obstruction -this appears to be the most likely etiology for his AMS -enema, then BID miralax (hold for loose stools) -- if enema doesn't clear impaction then may need disimpaction - but not acute abdomen, not obstructed severe PVD -continue med management, no acute findings at this time DM2 -last A1c mid september, mid 6 range. continue home insulin, QID BSG DVT proph -missing b/l LE so while his risk for forming clots would be moderate at least, his lack of typical site for DVT formation lowers his individual risk -- watchful waiting ESRD -on HD but missed 12/06. no s/s uremia or fluid overload - consult nephro for HD 12/07 anemia -chronic mild leukocytosis -see above moderate protein malnutrition -additional marker of his comorbid status, and worsens prognosis COPD -continue inhalers continue home meds otherwise. stable for med surg. [facility] Pro[facility] VTE Risk Assessment Done? Y/N: Yes Risk Level: Moderate
[2016-12-07] MEDS ORDERED: VANCOMYCIN CONSULT ACTIVE PRN (04:30)
[2016-12-07] MEDS ORDERED: PIPERACILL/TAZOBAC CONSULT ACTIVE PRN (04:30)
[2016-12-07] MEDS ORDERED: VANCOMYCIN INJ 1,000 MG in SODIUM CHLORIDE 0.9% 250ML 250 ML IV STA (05:07)
[2016-12-07] MEDS: GABAPENTIN 300 MG CAP PO SCH ×3 (05:33→23:03)
[2016-12-07] MEDS: OXYCODONE HCL IR 5 MG TAB (IMMEDIATE RELEASE) PO PRN ×2 (06:05→16:12)
--- NOTE | 2016-12-07 06:50 | DIAGNOSTIC IMAGING REPORT ---
CHEST ONE VIEW PORTABLE CLINICAL HISTORY: Sepsis. COMPARISON STUDY: Chest radiograph November 22, 2016. FINDINGS: A left subclavian pacer/AICD is in place as well as a dual lumen right internal jugular catheter. There is no pneumothorax. Lung volumes are diminished. Moderate cardiomegaly is noted. There is no evidence of pulmonary edema. Bibasilar opacities, right greater than left, are noted. Patient is rotated. IMPRESSION: 1. Bibasilar opacities, right greater than left. The findings could reflect pneumonia or atelectasis. 2. Cardiomegaly without evidence of pulmonary edema. Electronically signed by: Garry Lyman M.D. 12/07/2016 6:49 AM Dictated Date/Time: 12/07/2016 6:46 AM
--- NOTE | 2016-12-07 06:58 | DIAGNOSTIC IMAGING REPORT ---
CT OF THE HEAD WITHOUT CONTRAST CLINICAL HISTORY: Change in mental status. COMPARISON STUDY: Head CT July 15, 2016. CT DOSE: 1081.11 mGy.cm TECHNIQUE: Helical axial images of the head were obtained without IV contrast. Automated exposure control was utilized for the study. A dose lowering technique was utilized adhering to the principles of ALARA. FINDINGS: No acute intracranial hemorrhage, midline shift or mass effect is present. Ventricular system is stable. The basilar cisterns are patent. There are no extra-axial collections. Moderate white matter hypodensities are unchanged and suggest small vessel disease. There are no findings to suggest acute dural sinus thrombosis or acute territorial infarct. There are no significant calvarial abnormalities. Visualized portions of the sinuses and mastoid air cells are clear. IMPRESSION: No acute intracranial findings. Electronically signed by: Garry Lyman M.D. 12/07/2016 6:57 AM Dictated Date/Time: 12/07/2016 6:54 AM
--- NOTE | 2016-12-07 07:10 | DIAGNOSTIC IMAGING REPORT ---
CT OF THE ABDOMEN AND PELVIS WITHOUT CONTRAST CLINICAL HISTORY: Abdominal pain. Possible obstruction. COMPARISON STUDY: CT of the abdomen and pelvis November 22, 2016. TECHNIQUE: Axial images of the abdomen and pelvis were obtained without IV contrast. Images were reviewed in the axial, sagittal, and coronal planes. A dose lowering technique was utilized adhering to the principles of ALARA. FINDINGS: Visualized portions of the lower chest demonstrate stable cardiomegaly. Pacer leads are noted. Dense right middle lobe and right lower lobe consolidation has increased since exam of November 22, 2016. Radiodensities are noted within the lower lungs. Left lower lung airspace opacity has slightly increased. Evaluation of the abdomen and pelvis is suboptimal on this unenhanced exam. Unenhanced images of liver, spleen, adrenal glands, kidneys and pancreas are unremarkable. A 3 mm calcification with the left renal sinus is likely vascular. There is a small amount of layering material within the gallbladder without pericholecystic infiltration. There is no evidence for a bowel obstruction. A large amount of stool within the rectum is similar to prior exam of November 22, 2016. A Butler catheter is present within the bladder. The appendix is normal. There is no lymphadenopathy. Marked loss of height of L1 with erosion of the inferior endplate of T12 and superior endplate of T2 and 12 mm of retrolisthesis of T12 on L2 is unchanged since exam of November 22, 2016. Extensive vascular calcification is present. IMPRESSION: 1. Extensive right middle lobe and right lower lobe consolidation with mild left lower lobe consolidation which is increased since exam of November 22, 2016. Multifocal secretions within the airways. The findings raise the possibility of aspiration. Atelectasis could appear similar. 2. No bowel obstruction. 3. Large amount of stool within the rectum which is similar to prior CT of November 22, 2016. 4. Marked destruction of the L1 vertebral body with erosion of the inferior endplate of T12 and superior endplate of L2. Retrolisthesis of T12 on L2. Retropulsed fragments result in spinal canal narrowing. The findings suggest a pseudoarthrosis. No significant change since exam of November 22, 2016. Electronically signed by: Garry Lyman M.D. 12/07/2016 7:09 AM Dictated Date/Time: 12/07/2016 6:57 AM
[2016-12-07] MEDS: HEPARIN SOD (PORCINE) 1000 UNIT/ML 10 ML VIAL IV SCH ×3 (08:00→10:00)
[2016-12-07] MEDS ORDERED: PIPERACILL/TAZOBAC IV 4.5 GM in DEXTROSE 5% 100ML 100 ML IV SCH (08:00)
[2016-12-07] MEDS ORDERED: HEPARIN SOD (PORCINE) 1000 UNIT/ML 10 ML VIAL IV SCH (08:00)
[2016-12-07] MEDS: CALCIUM ACETATE 667MG GELCAP PO SCH ×3 (08:17→17:00)
[2016-12-07] MEDS: PANTOprazole SOD 40 MG TAB PO SCH (08:17)
[2016-12-07] MEDS: FLUTICASONE/SALMETEROL 250/50 (ADVAIR) 14 PUFF/1 INHALER INH SCH ×2 (08:18→22:57)
[2016-12-07] MEDS: LACTOBACILLUS ACIDOPHILUS (FLORANEX) TAB PO SCH ×3 (08:19→23:03)
[2016-12-07] MEDS: POLYETHYLENE (MIRALAX) 17 GM PACK PO SCH ×2 (08:19→23:02)
[2016-12-07] MEDS: DOCUSATE SODIUM/SENNA 50/8.6MG TAB PO SCH ×2 (08:19→23:04)
[2016-12-07] MEDS: LORAZEPAM 0.5 MG TAB PO SCH ×3 (08:26→21:00)
[2016-12-07] MEDS: INSULIN ASPART 100 UNITS/ML 3 ML PEN SC SCH ×4 (08:27→21:00)
[2016-12-07] MEDS: ASPIRIN 81 MG ECTAB PO SCH (09:00)
[2016-12-07] MEDS: SERTRALINE HCL 50 MG TAB PO SCH (09:00)
[2016-12-07] MEDS ORDERED: INSULIN GLARGINE SOLOSTAR 100 UNITS/ML 3 ML PEN SC SCH (09:00)
[2016-12-07] MEDS: DEXAMETHASONE 1 MG TAB PO SCH (09:00)
[2016-12-07] MEDS: CHOLECALCIFEROL 1000 INTER.UNIT TAB PO SCH (09:00)
[2016-12-07] MEDS ORDERED: NON-FORMULARY MEDICATION (Polyethylene Glycol 3350 (Miralax) 17 GM) PO SCH (09:00)
[2016-12-07] MEDS: FERROUS SULFATE 325 MG TAB PO SCH (09:00)
[2016-12-07] MEDS: LORATADINE 10 MG TAB PO SCH (09:00)
[2016-12-07] MEDS ORDERED: PROTEIN PO SCH (09:00)
[2016-12-07] MEDS: METOPROLOL SUCC 25MG EXT REL TAB PO SCH ×2 (09:00→21:00)
[2016-12-07] MEDS ORDERED: NURSING VERBAL MED ORDER ONE ×4 (09:15→22:00)
[2016-12-07] MEDS: OXYCODONE HCL 40 MG TABCR (OXYCONTIN) PO SCH ×2 (09:50→21:00)
--- NOTE | 2016-12-07 10:36 | Pharmacy Progress Note ---
Pharmacy Abx Initial Consult Date of Service Dec 07, 2016. Pharmacy Dosing Scope Date of Consult: 12/07/16 Consultation requested by: Dr. Kohli Pharmacy is consulted to initiate Vancomycin and Zosyn IV/PO dosing therapy, order appropriate labs and adjust drug dose/frequency. Subjective The patient is a 56 year old male admitted on Dec 07, 2016 at 00:50. Objective Height (Feet): 5 Height (Inches): 5.00 Weight (Kilograms): 68.600 Vital Signs (Past 12Hrs) Vital Signs Past 12 Hours Date Time Temp Pulse Resp B/P (MAP) Pulse Ox O2 Delivery O2 Flow Rate FiO2 12/07/16 07:45 93 Nasal Cannula 2.0 12/07/16 07:41 36.8 76 16 94/60 (71) 93 Room Air 12/07/16 04:00 97 Nasal Cannula 2.0 12/07/16 03:22 36.8 83 20 108/72 (84) 97 Nasal Cannula 2.0 12/07/16 02:55 36.8 83 20 108/72 97 Nasal Cannula 2.0 12/07/16 01:26 77 18 82/65 99 Nasal Cannula 2.0 12/07/16 00:11 82 20 97/74 97 Nasal Cannula 2.0 12/06/16 22:43 98 Nasal Cannula 2.0 12/06/16 22:28 79 18 91/64 96 Nasal Cannula 2.0 12/06/16 22:27 79 Lab Results (24Hrs) Laboratory Tests (24 Hours) Test 12/06/16 22:50 C-Reactive Protein 12.30 mg/dl (0-0.29) H White Blood Count 12.26 K/uL (4.8-10.8) H Red Blood Count 3.83 M/uL (4.7-6.1) L Hemoglobin 10.7 g/dL (14.0-18.0) L Hematocrit 33.3 % (42-52) L Mean Corpuscular Volume 86.9 fL (80-100) Mean Corpuscular Hemoglobin 27.9 pg (25-34) Mean Corpuscular Hemoglobin Concent 32.1 g/dl (32-36) Platelet Count 169 K/uL (130-400) Mean Platelet Volume 9.1 fL (7.4-10.4) Neutrophils (%) (Auto) 87.3 % Lymphocytes (%) (Auto) 6.7 % Monocytes (%) (Auto) 5.7 % Eosinophils (%) (Auto) 0.0 % Basophils (%) (Auto) 0.0 % Neutrophils # (Auto) 10.70 K/uL (1.4-6.5) H Lymphocytes # (Auto) 0.82 K/uL (1.2-3.4) L Monocytes # (Auto) 0.70 K/uL (0.11-0.59) H Eosinophils # (Auto) 0.00 K/uL (0-0.5) Basophils # (Auto) 0.00 K/uL (0-0.2) Procalcitonin 17.56 ng/ml (0-0.5) H Micro Results Date/Time Source Procedure Growth Status 12/06/16 23:00 Blood Blood Culture Pending Received 12/06/16 22:50 Blood Blood Culture Pending Received 12/06/16 22:15 Urine,Catheterized Urine Culture Pending Received Risk Factors for Resistance * Resident in a fpc * Hospitalization for 48 hours or more within the past 90 days * Chronic dialysis within the past 30 days * 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 PNA vs. recurrent bacteremia vs. fecal impaction * h/o severe PVD, osteo/discitis on chronic Vanc IV after dialysis - Vanc level ordered on admission was subtherapeutic at 7.7 mcg/mL * outpatient HD on (pt missed session on 12/06) * elevated procalcitonin Plan Continue Vancomycin and Zosyn IV pending culture results Vancomycin IV * Last dose of out-pt Vanc was likely on 12/04 since pt missed HD on 12/06 * Patient requires re-dosing due to subtherapeutic level of 7.7 mcg/mL * Patient administered 1000 mg IV today @ 0530 * Random level ordered for 12/08 am * Further Vancomycin dosing will be based random level results * Goal trough level for osteo/discitis: 20 mcg/mL (h/o Vanc SANJU = 2) Piperacillin/tazobactam * 4.5 g bolus administered over 30 minutes, then 4.5 g IV extended infusion every every 12 hours for CrCl 20 mL/min or less and dialysis. * Aggressive dosing selected due to h/o of MDR organisms. Pharmacy will continue to follow and will adjust dose/frequency as necessary. Thank you.
--- NOTE | 2016-12-07 13:38 | Nephrology Consultation ---
Nephrology Consultation Date of Consultation: Dec 07, 2016. Attending Physician: Dr Kohli Requesting Physician: Dr Kohli Reason for Consultation: ESRD on HD History of Present Illness 56-year-old male [place] resident w/ complex medical hx including ESRD on dialysis Mondays, Wednesdays, Fridays via TDC/catheter dependent, w/ ischemic cardiomyopathy w/ EF 15%/defibrillator, chronic Blair, BL AKA and severe PVD, DM admitted overnight for evaluation of delirium after developing confusion at his facility prior to admission. He missed HD yesterday; last tx was 12/04. His mentation starkly limited ROS/ eval at admission. Preliminary infectious w/ u unrevealing initially but CXR w/ possible aspiration PNA; started on empiric vanc/zosyn; noted w/in 18 hrs of presentation to have blood cxs + for GNR. Not markedly volume overloaded and eukalemic on presentation. Has prior to admission been shortening his HD txs d/t uncontrolled pain. Past Medical/Surgical History Medical Problems: (1) Altered mental status Status: Acute (2) Change in mental status Status: Acute (3) Diabetes mellitus out of control Status: Acute (4) Elevated troponin Status: Acute (5) Elevated troponin Status: Acute (6) Elevated troponin Status: Acute (7) End stage renal failure on dialysis Status: Acute (8) Failure of outpatient treatment Status: Acute (9) Hyperkalemia Status: Acute (10) Hypocalcemia Status: Acute (11) Hypoglycemia Status: Acute (12) Hypokalemia Status: Acute (13) Hyponatremia Status: Acute (14) Hypotension Status: Acute (15) Hypothermia Status: Acute (16) Leukocytosis Status: Acute (17) Mass of spine Status: Acute (18) Opiate overdose Status: Acute (19) Renal failure Status: Acute (20) Renal insufficiency Status: Acute (21) Sepsis Status: Acute (22) Ulcer of toe Status: Acute (23) Ulcers of both lower extremities Status: Acute (24) UTI (urinary tract infection) Status: Acute (25) UTI (urinary tract infection) Status: Acute (26) UTI (urinary tract infection) Status: Acute PAST MEDICAL HISTORY: End-stage renal disease, history of osteomyelitis of the back in November of last year, hypertension, type 2 diabetes, hyperlipidemia, chronic blair, ischemic cardiomyopathy with a low ejection fraction, significant vascular disease; admission 09/2016 for R knee infection > RLE amputation; recurrent complex infections/ multiple LT courses of abtx PAST SURGICAL HISTORY: Fem-pop bypass, left AKA, AICD, multiple attempts at fistulas and grafts in the past; currently tunneled line dependent w/ maturing avf; R AKA 09/2016. Family History Coronary artery disease MOTHER FH: atrial fibrillation FATHER FH: cancer FATHER Hypertension SISTER Valvular heart disease FATHER Social History Smoking Status: Former Smoker Alcohol Use: occasionally Drug Use: none Marital Status: single Housing Status: detention Occupation Status: disabled Allergies Coded Allergies: Daptomycin (Verified Allergy, Severe, WATER ON LUNGS, 12/06/16) pt stated this allergy is "lethal" for him POLLEN (Verified Allergy, Unknown, 12/06/16) Ciprofloxacin (Verified Adverse Reaction, Intermediate, NAUSEA AND DIARHHEA, 12/06/16) Medications Current Inpatient Medications Medications (Trade) Dose Ordered Sig/Edin Route Start Time Stop Time Status Last Admin Dose Admin Acetaminophen (Tylenol Tab) 650 mg Q4H PRN PO 12/07/16 01:00 01/06/17 00:59 Polyethylene (Miralax Powder Packet) 17 gm BID PO 12/07/16 09:00 01/06/17 08:59 Ascorbic Acid (Vitamin C Tab) 500 mg MoWeFr@0900 PO 12/09/16 09:00 01/08/17 08:59 Aspirin (Ecotrin Tab) 81 mg DAILY PO 12/07/16 09:00 01/06/17 08:59 Atorvastatin Calcium (Lipitor Tab) 40 mg HS PO 12/07/16 21:00 01/06/17 20:59 Calcium Acetate (Phoslo Cap) 1,334 mg TIDM PO 12/07/16 08:00 01/06/17 07:59 Salmeterol Xinafoate/ Fluticasone (Advair Diskus 250/50 Inh) 1 puff BID INH 12/07/16 09:00 01/06/17 08:59 Gabapentin (Neurontin Cap) 300 mg Q8H PO 12/07/16 06:00 01/06/17 05:59 12/07/16 05:33 300 MG Insulin Aspart (novoLOG ASPART) ACHS SC 12/07/16 06:30 01/06/17 06:59 Insulin Glargine (Lantus Solostar Pen) 5 units BID SC 12/07/16 09:00 01/06/17 08:59 Albuterol/ Ipratropium (Combivent Respimat Inh) 1 puffs QID PRN INH 12/07/16 01:30 01/06/17 01:29 Lactobacillus Acidophilus (Floranex Tab) 4 tab TID PO 12/07/16 09:00 01/06/17 08:59 Loratadine (Claritin Tab) 10 mg DAILY PO 12/07/16 09:00 01/06/17 08:59 Lorazepam (Ativan Tab) 0.5 mg TID PO 12/07/16 09:00 01/06/17 08:59 Magnesium Hydroxide (Milk Of Magnesia Susp) 30 ml UD PRN PO 12/07/16 01:30 01/06/17 01:29 Metoprolol Succinate (Toprol Xl Tab) 25 mg BID PO 12/07/16 09:00 01/06/17 08:59 Oxycodone HCl (Oxycontin Tab) 40 mg Q12 PO 12/07/16 09:00 12/21/16 08:59 Senna/Docusate Sodium (Senokot S Tab) 1 tab BID PO 12/07/16 09:00 01/06/17 08:59 Sertraline HCl (Zoloft Tab) 50 mg QAM PO 12/07/16 09:00 01/06/17 08:59 Sodium Biphosphate/ Sodium Phosphate (Fleet Enema) 132 ml UD PRN IN 12/07/16 01:30 01/06/17 01:29 Cholecalciferol (Vitamin D Tab) 5,000 inter.unit DAILY PO 12/07/16 09:00 01/06/17 08:59 Dexamethasone (Decadron Tab) 2 mg DAILY PO 12/07/16 09:00 01/06/17 08:59 Ferrous Sulfate (Feosol Tab) 325 mg QAM PO 12/07/16 09:00 01/06/17 08:59 Pantoprazole Sodium (Protonix Tab) 40 mg SuTuThSa@0900 PO 12/07/16 09:00 01/06/17 08:59 Oxycodone HCl (Roxicodone Immediate Rel Tab) 10 mg Q6 PRN PO 12/07/16 01:30 01/06/17 01:29 12/07/16 06:05 10 MG Miscellaneous (Iv Fluids Completed) 1 ea PRN PRN N/A 12/07/16 01:45 12/07/17 01:44 Piperacillin Sod/ Tazobactam Sod 4.5 gm/Dextrose 120 ml @ 30 mls/hr Q12H IV 12/07/16 08:00 12/09/16 07:59 Piperacillin Sod/ Tazobactam Sod (Consult) 1 ea UD PRN N/A 12/07/16 04:30 01/06/17 04:29 Vancomycin HCl (Consult) 1 ea UD PRN N/A 12/07/16 04:30 01/06/17 04:29 Home Meds and Scripts Medications Dose Route/Sig Max Daily Dose Days Date Category Dose Instructions Zoloft (Sertraline HCl) 50 Mg Tab 50 Mg PO QAM 12/06/16 Reported [Liquid Protein] 30 Ml PO DAILY 12/06/16 Reported Novolog (Insulin Aspart) 100 Units/Ml Inj SC ACHS 12/06/16 Reported Sliding scale: 0-150 = 0 units, 151-200 = 6 units, 201- 250 = 8 units, 251-300 = 10 units, 301- 350 = 12 units, 351- 400 = 14 units, 401- 450 = 16 units, 451+ call physician, subcutaneously before meals and at bedtime related to TYPE 2 Diabetes Mellitus Oxycontin (Oxycodone Hcl) 40 Mg Tab 40 Mg PO Q12 11/27/16 Reported Oxycodone Hcl 10 Mg Tab 10 Mg PO Q6 PRN 10/04/16 Rx Ativan (Lorazepam) 0.5 Mg Tab 0.5 Mg PO TID 10/04/16 Rx Combivent Respimat (Ipratropium-Albuterol) 1 Aer Aer 1 Puffs INH QID PRN 30 10/04/16 Rx Fleet Enema Six Pack (Sodium Phosphates) 1 [place] 1 Ea IN UD PRN 09/19/16 Reported Milk of Magnesia (Magnesium Hydroxide) 30 Ml Susp 30 Ml PO UD PRN 09/19/16 Reported Neurontin (Gabapentin) 300 Mg Cap 300 Mg PO Q8 09/19/16 Reported Atorvastatin Calcium (Atorvastatin) 40 Mg Tab 40 Mg PO HS 30 08/19/16 Rx Oxygen Gas 3 Liters NA PRN PRN 07/15/16 Reported Tylenol (Acetaminophen) 325 Mg Tab 650 Mg PO Q6 PRN 07/15/16 Reported DO NOT EXCEED 3MG/24HR Vitamin C (Ascorbic Acid) 500 Mg Tab 500 Mg PO UD 07/15/16 Reported 3x per week on FRI/FRI/FRIDAY Vitamin D3 (Cholecalciferol) 5,000 Unit Tab 5,000 Unit PO DAILY 07/15/16 Reported Dexamethasone 2 Mg Tab 2 Mg PO DAILY 07/15/16 Reported Vancomycin Hcl In Dextros (Vancomycin Hcl In Dextrose) 1 Inj Inj 500 Mg IV MWF 06/04/16 Reported SEND TO DIALYSIS WITH PT ON FRI,FRI,FRI..WILL RECIEVE THERE Senokot S (Senna/Docusate Sodium) 1 Tab Tab 1 Tab PO BID 06/04/16 Reported Lantus (Insulin Glargine) 100 Unit/Ml Inj 5 Units SC AMPM 06/04/16 Reported Lactinex (Lactobacillus Acidophilus) Tab 1 Tab PO TID 06/04/16 Reported Kp Ferrous Sulfate (Ferrous Sulfate) 325 Mg Tab 325 Mg PO QAM 06/04/16 Reported Advair Diskus 250/50 60 Dose (Fluticasone Prop/Salmeterol) 1 Ea Aerp 1 Puffs INH BID 06/04/16 Reported Phoslo 667 Mg (Calcium Acetate (Phosphate Bin) 667 Mg Cap 2 Capsules PO WM 11/12/15 Reported Toprol-Xl (Metoprolol Succinate) 25 Mg Tabcr 25 Mg PO BID 11/12/15 Reported HOLD FOR AP HR <50 Claritin (Loratadine) 10 Mg Tab 10 Mg PO DAILY 11/12/15 Reported GIVE AT 0400 ON MON,WED,FRI GIVE AT 0800 ON ,,SAT,SUN Prilosec (Omeprazole) 20 Mg Capcr 20 Mg PO 4XWK 09/28/15 Reported ,,SAT,SUNDAYS Miralax (Polyethylene Glycol 3350) 1 Pow Pow 17 Gm PO DAILY 09/05/15 Reported GIVE AT 0400 ON MON,WED,FRI GIVE AT 0800 ON SUN,TU,,SAT Aspirin Ec (Aspirin) 81 Mg Tab 81 Mg PO DAILY 06/03/14 Reported TAKE ON MON,WED,FRI @ 0400 TAKE ON ,,SAT,SUN @ 0800 Review of Systems Constitutional: + weakness, No fever Eyes: No worsening of vision ENT: No hearing loss Respiratory: No shortness of breath Cardiac: No chest pain, No palpitations Abdomen: + pain, + constipation, No nausea, No vomiting Musculoskeletal: + muscle pain Male : + problem reported (blair at presentation w/ dark urine > removed) Neuro: + problem reported (confusion) Psych: + anxiety Endo: + fatigue Skin: No rash Physical Exam Date Time Temp Pulse Resp B/P (MAP) Pulse Ox O2 Delivery O2 Flow Rate FiO2 12/07/16 04:00 97 Nasal Cannula 2.0 12/07/16 03:22 36.8 83 20 108/72 (84) 97 Nasal Cannula 2.0 12/07/16 02:55 36.8 83 20 108/72 97 Nasal Cannula 2.0 12/07/16 01:26 77 18 82/65 99 Nasal Cannula 2.0 12/07/16 00:11 82 20 97/74 97 Nasal Cannula 2.0 12/06/16 22:43 98 Nasal Cannula 2.0 12/06/16 22:28 79 18 91/64 96 Nasal Cannula 2.0 12/06/16 22:27 79 12/06/16 21:14 36.9 91 20 91/60 94 Room Air General Appearance: no apparent distress, + obese (on 02nc, intermittently confused; does moan transiently in pain w/ ?BM) Eyes: EOMI ENT: hearing grossly normal Neck: supple Respiratory/Chest: no respiratory distress, + decreased breath sounds Cardiovascular: regular rate, rhythm, + systolic murmur Abdomen: normal bowel sounds, non tender, soft Extremities: + pertinent finding (BL AKA; AVF L prox arm w/ slightly weak T/b) Neurologic/Psych: alert, normal mood/affect, oriented x 3 (occasional confusion ) Skin: warm/dry, + pallor Diagnostics Last 24 Hours Test 12/06/16 22:15 12/06/16 22:41 12/06/16 22:50 12/06/16 22:56 Urine Color ORANGE Urine Appearance TURBID Urine pH 5.0 Urine Specific [place] 1.024 Urine Protein 3+ Urine Glucose (UA) NEG Urine Ketones TRACE Urine Occult Blood 3+ Urine Nitrite POS Urine Bilirubin NEG Urine Urobilinogen NEG Urine Leukocyte Esterase LARGE Urine WBC (Auto) >30 /hpf Urine RBC (Auto) 10-30 /hpf Urine Hyaline Casts (Auto) >30 /lpf Urine Epithelial Cells (Auto) >30 /lpf Urine Bacteria (Auto) NEG Urine Pathogenic Casts /lpf Urine Yeast (Auto) PRESENT Bedside Glucose 216 mg/dl White Blood Count 12.26 K/uL Red Blood Count 3.83 M/uL Hemoglobin 10.7 g/dL Hematocrit 33.3 % Mean Corpuscular Volume 86.9 fL Mean Corpuscular Hemoglobin 27.9 pg Mean Corpuscular Hemoglobin Concent 32.1 g/dl Platelet Count 169 K/uL Mean Platelet Volume 9.1 fL Neutrophils (%) (Auto) 87.3 % Lymphocytes (%) (Auto) 6.7 % Monocytes (%) (Auto) 5.7 % Eosinophils (%) (Auto) 0.0 % Basophils (%) (Auto) 0.0 % Neutrophils # (Auto) 10.70 K/uL Lymphocytes # (Auto) 0.82 K/uL Monocytes # (Auto) 0.70 K/uL Eosinophils # (Auto) 0.00 K/uL Basophils # (Auto) 0.00 K/uL RDW Standard Deviation 45.6 fL RDW Coefficient of Variation 14.3 % Immature Granulocyte % (Auto) 0.3 % Immature Granulocyte # (Auto) 0.04 K/uL Prothrombin Time 10.6 SECONDS Prothromb Time International Ratio 1.0 Activated Partial Thromboplast Time 29.2 SECONDS Partial Thromboplastin Ratio 1.1 Sodium Level 133 mmol/L Potassium Level 4.5 mmol/L Chloride Level 96 mmol/L Carbon Dioxide Level 28 mmol/L Anion Gap 9.0 mmol/L Blood Urea Nitrogen 63 mg/dl Creatinine 5.40 mg/dl Est Creatinine Clear Calc Drug Dose 13.1 ml/min Estimated GFR () 12.5 Estimated GFR (Non- 10.8 BUN/Creatinine Ratio 11.6 Random Glucose 162 mg/dl Calcium Level 9.4 mg/dl Magnesium Level 2.5 mg/dl Total Bilirubin 0.5 mg/dl Aspartate Amino Transf (AST/SGOT) 15 U/L Alanine Aminotransferase (ALT/SGPT) 8 U/L Alkaline Phosphatase 97 U/L C-Reactive Protein 12.30 mg/dl Total Protein 6.6 gm/dl Albumin 2.5 gm/dl Globulin 4.1 gm/dl Albumin/Globulin Ratio 0.6 Procalcitonin 17.56 ng/ml Bedside Lactic Acid Venous 0.75 mmol/L Test 12/07/16 04:28 Random Vancomycin Level 7.7 mcg/ml Diagnostic Radiology: CT chest > RML/ RLL PNA, poss aspiration Head CT no acute process Assessment & Plan 56 y/o M [facility] resident w/ ESRD on MWF HD TDC dependent/maturing AVF, ischemic [employer] EF 15%, s/p BL AKA admitted overnight for evaluation of delirium> bld cx + GNR w /in 18 hrs of presentation. ESRD MWF HD but missed tx yesterday and shortening generally > do gentle tx today to keep on schedule > 3.5h, 2K bath, gentle UF; mini heparin. cont phoslo Anemia of chronic disease -no epo indicated; cont to monitor Encephalopathy, presumed GNR bacteremia -f/u pending cxs; aspiration pneumonia + UTI in setting chronic fole/ GNR bacteremia; empiric vanco/zosyn >> may need to consider tdc exchange -consider inf dzs consult given his hx/complexity infection camp constipation/chronic pain per primary service/ minimize or avoid fleets in dialysis pt d/t risk of bowel perf; avoid mag based stimulants as well > try lactulaose, dulcolax, softeners Appreciate c/s; will follow with you
[2016-12-07] MEDS ORDERED: ALTEPLASE, RECOMBINANT 1 MG/ML 2 ML VIAL IV STA (16:18)
[2016-12-07] MEDS ORDERED: ALTEPLASE, RECOMBINANT 1 MG/ML 2 ML VIAL IV ONE (17:00)
[2016-12-07] MEDS ORDERED: CEFTRIAXONE SOD INJ 2,000 MG in DEXTROSE 5% 50ML 50 ML IV STA (18:32)
[2016-12-07] MEDS ORDERED: CEFEPIME IV 2000 MG in DEXTROSE 5% 100ML IV STA (18:45)
[2016-12-07] MEDS ORDERED: CEFEPIME CONSULT ACTIVE PRN ×2 (18:45)
[2016-12-07] MEDS: MoRPHine SULFATE 4 MG/ML 1 ML CARP\\VIAL IV PRN (18:59)
--- NOTE | 2016-12-07 19:19 | Hospitalist Progress Note ---
Hospitalist Progress Note Date of Service Dec 07, 2016. Subjective Pt evaluation today including: conversation w/ patient, physical exam, chart review, lab review, review of studies Medications Medications (Trade) Dose Ordered Sig/Edin Route Start Time Stop Time Status Last Admin Dose Admin Piperacillin Sod/ Tazobactam Sod (Zosyn Iv) 4.5 gm ONE STAT IV 12/06/16 22:31 12/06/16 22:35 DC 12/07/16 00:10 4.5 GM Sodium Chloride 250 ml @ 999 mls/hr Q16M STAT IV 12/06/16 22:31 12/06/16 22:46 DC 12/07/16 00:09 999 MLS/HR Sodium Biphosphate/ Sodium Phosphate (Fleet Enema) 132 ml NOW STAT [place] 12/07/16 01:22 12/07/16 02:06 DC 12/07/16 02:48 132 ML Polyethylene (Miralax Powder Packet) 17 gm BID PO 12/07/16 09:00 01/06/17 08:59 12/07/16 08:19 17 GM Calcium Acetate (Phoslo Cap) 1,334 mg TIDM PO 12/07/16 08:00 01/06/17 07:59 12/07/16 12:49 1,334 MG Salmeterol Xinafoate/ Fluticasone (Advair Diskus 250/50 Inh) 1 puff BID INH 12/07/16 09:00 01/06/17 08:59 12/07/16 08:18 1 PUFF Gabapentin (Neurontin Cap) 300 mg Q8H PO 12/07/16 06:00 01/06/17 05:59 12/07/16 05:33 300 MG Insulin Aspart (novoLOG ASPART) ACHS SC 12/07/16 06:30 01/06/17 06:59 12/07/16 14:24 3 UNITS Lactobacillus Acidophilus (Floranex Tab) 4 tab TID PO 12/07/16 09:00 01/06/17 08:59 12/07/16 08:19 4 TAB Lorazepam (Ativan Tab) 0.5 mg TID PO 12/07/16 09:00 01/06/17 08:59 12/07/16 08:26 0.5 MG Oxycodone HCl (Oxycontin Tab) 40 mg Q12 PO 12/07/16 09:00 8/5/17 08:59 12/07/16 09:50 40 MG Senna/Docusate Sodium (Senokot S Tab) 1 tab BID PO 12/07/16 09:00 01/06/17 08:59 12/07/16 08:19 1 TAB Pantoprazole Sodium (Protonix Tab) 40 mg SuTuThSa@0900 PO 12/07/16 09:00 01/06/17 08:59 12/07/16 08:17 40 MG Oxycodone HCl (Roxicodone Immediate Rel Tab) 10 mg Q6 PRN PO 12/07/16 01:30 01/06/17 01:29 12/07/16 16:12 10 MG Vancomycin HCl 1000 mg/Sodium Chloride 270 ml @ 125 mls/hr NOW STAT IV 12/07/16 05:07 12/07/16 07:16 DC 12/07/16 05:33 125 MLS/HR Piperacillin Sod/ Tazobactam Sod 4.5 gm/Dextrose 120 ml @ 30 mls/hr Q12H IV 12/07/16 08:00 12/07/16 18:43 DC 12/07/16 09:12 30 MLS/HR Objective Vital Signs Date Time Temp Pulse Resp B/P (MAP) Pulse Ox O2 Delivery O2 Flow Rate FiO2 12/07/16 16:24 95 130/79 12/07/16 16:15 77 131/43 12/07/16 16:00 95 118/92 12/07/16 15:59 37.1 90 117/59 (78) 12/07/16 15:45 96 121/99 12/07/16 15:30 89 107/65 12/07/16 15:25 98 130/79 12/07/16 07:45 93 Nasal Cannula 2.0 12/07/16 07:41 36.8 76 16 94/60 (71) 93 Room Air 12/07/16 04:00 97 Nasal Cannula 2.0 12/07/16 03:22 36.8 83 20 108/72 (84) 97 Nasal Cannula 2.0 12/07/16 02:55 36.8 83 20 108/72 97 Nasal Cannula 2.0 12/07/16 01:26 77 18 82/65 99 Nasal Cannula 2.0 12/07/16 00:11 82 20 97/74 97 Nasal Cannula 2.0 12/06/16 22:43 98 Nasal Cannula 2.0 12/06/16 22:28 79 18 91/64 96 Nasal Cannula 2.0 12/06/16 22:27 79 12/06/16 21:14 36.9 91 20 91/60 94 Room Air Physical Exam General Appearance: no apparent distress Eyes: normal inspection ENT: hearing grossly normal Neck: trachea midline Respiratory/Chest: lungs clear Cardiovascular: regular rate, rhythm Abdomen: normal bowel sounds, non tender Extremities: normal inspection (bilateral [id number] amputee) Laboratory Results Last 24 Hours Test 12/06/16 22:15 12/06/16 22:41 12/06/16 22:50 12/06/16 22:56 Urine Color ORANGE Urine Appearance TURBID Urine pH 5.0 Urine Specific [place] 1.024 Urine Protein 3+ Urine Glucose (UA) NEG Urine Ketones TRACE Urine Occult Blood 3+ Urine Nitrite POS Urine Bilirubin NEG Urine Urobilinogen NEG Urine Leukocyte Esterase LARGE Urine WBC (Auto) >30 /hpf Urine RBC (Auto) 10-30 /hpf Urine Hyaline Casts (Auto) >30 /lpf Urine Epithelial Cells (Auto) >30 /lpf Urine Bacteria (Auto) NEG Urine Pathogenic Casts /lpf Urine Yeast (Auto) PRESENT Bedside Glucose 216 mg/dl White Blood Count 12.26 K/uL Red Blood Count 3.83 M/uL Hemoglobin 10.7 g/dL Hematocrit 33.3 % Mean Corpuscular Volume 86.9 fL Mean Corpuscular Hemoglobin 27.9 pg Mean Corpuscular Hemoglobin Concent 32.1 g/dl Platelet Count 169 K/uL Mean Platelet Volume 9.1 fL Neutrophils (%) (Auto) 87.3 % Lymphocytes (%) (Auto) 6.7 % Monocytes (%) (Auto) 5.7 % Eosinophils (%) (Auto) 0.0 % Basophils (%) (Auto) 0.0 % Neutrophils # (Auto) 10.70 K/uL Lymphocytes # (Auto) 0.82 K/uL Monocytes # (Auto) 0.70 K/uL Eosinophils # (Auto) 0.00 K/uL Basophils # (Auto) 0.00 K/uL RDW Standard Deviation 45.6 fL RDW Coefficient of Variation 14.3 % Immature Granulocyte % (Auto) 0.3 % Immature Granulocyte # (Auto) 0.04 K/uL Prothrombin Time 10.6 SECONDS Prothromb Time International Ratio 1.0 Activated Partial Thromboplast Time 29.2 SECONDS Partial Thromboplastin Ratio 1.1 Sodium Level 133 mmol/L Potassium Level 4.5 mmol/L Chloride Level 96 mmol/L Carbon Dioxide Level 28 mmol/L Anion Gap 9.0 mmol/L Blood Urea Nitrogen 63 mg/dl Creatinine 5.40 mg/dl Est Creatinine Clear Calc Drug Dose 13.1 ml/min Estimated GFR () 12.5 Estimated GFR (Non- 10.8 BUN/Creatinine Ratio 11.6 Random Glucose 162 mg/dl Calcium Level 9.4 mg/dl Magnesium Level 2.5 mg/dl Total Bilirubin 0.5 mg/dl Aspartate Amino Transf (AST/SGOT) 15 U/L Alanine Aminotransferase (ALT/SGPT) 8 U/L Alkaline Phosphatase 97 U/L C-Reactive Protein 12.30 mg/dl Total Protein 6.6 gm/dl Albumin 2.5 gm/dl Globulin 4.1 gm/dl Albumin/Globulin Ratio 0.6 Procalcitonin 17.56 ng/ml Bedside Lactic Acid Venous 0.75 mmol/L Test 12/07/16 04:28 12/07/16 07:27 12/07/16 11:09 12/07/16 16:53 Random Vancomycin Level 7.7 mcg/ml Bedside Glucose 91 mg/dl 148 mg/dl Hepatitis B Surface Antigen NEG Test 12/07/16 17:40 12/07/16 18:15 Bedside Glucose 106 mg/dl Diagnostic Results Last Resulted BMP 12/06/16 22:50 Assessment and Plan (1) Bacteremia associated with intravascular line Assessment & Plan: Patient has 2 out of 2 blood cultures positive for gram- negative bacillus and he has a urine culture positive for the same. Review his chart shows Proteus over the last organism to grow which was relatively sensitive to most antibiotics. Patient's dialysis was stopped short today he has swelling around his catheter site which may reflect a hematoma. Ultrasound has been ordered. Case discussed with pharmacy and cefepime will be added and renally dosed. Zosyn and vancomycin will be discontinued and (2) Delirium Assessment & Plan: Secondary to his bacteremia patient is able to answer questions. There is a nurse who works at the facility who wanted to relay the information to the patient's family. I asked the patient at this was okay with him and he preferred not to speak to the family at this moment in time. (3) Coronary artery disease (4) Obesity Continued [facility] stay due to: multiple IV medications needed
[2016-12-07 19:25] LABS: BASO % 0.1 %; BASO ABS # 0.01 K/uL (0-0.2); COMPLETE YES; EOS % 0.3 %; HEMATOCRIT 32.6 % (42-52); IG% 0.5 %; LYMPH % 3.6 %; LYMPH ABS # 0.31 K/uL (1.2-3.4); MEAN CELL VOLUME 87.6 fL (80-100); MEAN CORPUSCULAR HEMOGLOBIN 28.2 pg (25-34); MEAN CORPUSCULAR HGB CONC 32.2 g/dl (32-36); MEAN PLATELET VOLUME 9.2 fL (7.4-10.4); MONO % 1.4 %; NEUT % 94.1 %; PLATELET COUNT 116 K/uL (130-400); RED BLOOD COUNT 3.72 M/uL (4.7-6.1); WHITE BLOOD COUNT 8.72 K/uL (4.8-10.8)
[2016-12-07] MEDS ORDERED: SODIUM CHLORIDE 0.9% 1000ML 250 ML IV ONE ×2 (21:45→22:45)
[2016-12-07] MEDS ORDERED: ACETAMINOPHEN IV 1,000 MG in EMPTY BAG 0 ML IV ONE (22:00)
[2016-12-07] MEDS: INSULIN GLARGINE SOLOSTAR 100 UNITS/ML 3 ML PEN SC SCH (23:00)
[2016-12-07] MEDS: ATORVASTATIN 40 MG TAB PO SCH (23:03)
[2016-12-08] VITALS (26 sets, daily range): BP systolic 84–121; BP diastolic 42–87; PULSE 50–100; TEMP 36.8–37.4; O2SAT 92–100
[2016-12-08] MEDS ORDERED: VANCOMYCIN CONSULT ACTIVE PRN (00:30)
[2016-12-08] MEDS: GABAPENTIN 300 MG CAP PO SCH ×3 (06:00→22:00)
[2016-12-08] MEDS: INSULIN ASPART 100 UNITS/ML 3 ML PEN SC SCH ×4 (08:30→20:57)
[2016-12-08] MEDS: POLYETHYLENE (MIRALAX) 17 GM PACK PO SCH ×2 (09:00→21:00)
[2016-12-08] MEDS: OXYCODONE HCL 40 MG TABCR (OXYCONTIN) PO SCH ×2 (09:00→20:50)
[2016-12-08] MEDS: ASPIRIN 81 MG ECTAB PO SCH (09:00)
[2016-12-08] MEDS: CHOLECALCIFEROL 1000 INTER.UNIT TAB PO SCH (09:00)
[2016-12-08] MEDS: FERROUS SULFATE 325 MG TAB PO SCH (09:00)
[2016-12-08] MEDS ORDERED: VANCOMYCIN INJ 1,000 MG in SODIUM CHLORIDE 0.9% 250ML 250 ML IV SCH (09:00)
[2016-12-08] MEDS: LORAZEPAM 0.5 MG TAB PO SCH ×3 (09:00→20:49)
[2016-12-08] MEDS: PANTOprazole SOD 40 MG TAB PO SCH (09:00)
[2016-12-08] MEDS: METOPROLOL SUCC 25MG EXT REL TAB PO SCH ×2 (09:00→21:00)
[2016-12-08] MEDS: LORATADINE 10 MG TAB PO SCH (09:00)
[2016-12-08] MEDS: DOCUSATE SODIUM/SENNA 50/8.6MG TAB PO SCH ×2 (09:01→21:00)
[2016-12-08] MEDS: SERTRALINE HCL 50 MG TAB PO SCH (09:01)
[2016-12-08] MEDS: DEXAMETHASONE 1 MG TAB PO SCH (09:02)
[2016-12-08] MEDS: FLUTICASONE/SALMETEROL 250/50 (ADVAIR) 14 PUFF/1 INHALER INH SCH ×2 (09:02→20:53)
[2016-12-08] MEDS: LACTOBACILLUS ACIDOPHILUS (FLORANEX) TAB PO SCH ×3 (09:03→21:00)
[2016-12-08] MEDS: CALCIUM ACETATE 667MG GELCAP PO SCH ×3 (09:04→16:54)
--- NOTE | 2016-12-08 10:14 | DIAGNOSTIC IMAGING REPORT ---
RIGHT LOWER NECK ULTRASONOGRAPHY CLINICAL HISTORY: Right neck swelling in area of dialysis catheter. COMPARISON STUDY: Chest x-ray dated 12/06/2016 FINDINGS: There is shadowing in the region of a right-sided dialysis catheter. No hematoma is visualized. IMPRESSION: No ultrasonographic evidence of neck hematoma or pathologic fluid collection Electronically signed by: Rajendra Gomez M.D. 12/08/2016 10:12 AM Dictated Date/Time: 12/08/2016 10:10 AM
--- NOTE | 2016-12-08 10:16 | Hospitalist Progress Note ---
Hospitalist Progress Note Date of Service Dec 08, 2016. Subjective Pt evaluation today including: conversation w/ patient, physical exam, chart review, lab review, review of studies Objective Vital Signs Date Time Temp Pulse Resp B/P (MAP) Pulse Ox O2 Delivery O2 Flow Rate FiO2 12/08/16 08:18 37.2 91 18 97/64 (75) 97 Room Air 12/08/16 04:00 Nasal Cannula 2.0 12/08/16 03:54 37.4 76 18 98 Nasal Cannula 2.0 12/08/16 01:30 36.8 87 22 106/42 (63) 93 Nasal Cannula 2.0 12/08/16 00:52 36.9 78 117/59 (78) 12/08/16 00:45 36.9 87 106/60 (75) 12/08/16 00:34 37.4 92 102/65 (77) 12/08/16 00:00 Nasal Cannula 2.0 12/08/16 00:00 102/65 (77) 12/07/16 22:45 37.4 92 90/60 (70) 98 Nasal Cannula 2.0 12/07/16 22:04 37.7 104 94/54 (67) 12/07/16 20:43 38.0 108 18 74/50 (58) 97 Nasal Cannula 2.0 12/07/16 18:55 24 12/07/16 17:15 63 100/78 12/07/16 17:00 59 87/53 12/07/16 16:45 50 99/66 12/07/16 16:30 77 114/47 12/07/16 16:24 95 130/79 12/07/16 16:15 77 131/43 12/07/16 16:00 95 118/92 12/07/16 16:00 93 Nasal Cannula 2.0 12/07/16 15:59 37.1 90 117/59 (78) 12/07/16 15:45 96 121/99 12/07/16 15:30 89 107/65 12/07/16 15:25 98 130/79 Physical Exam General Appearance: WD/WN ENT: hearing grossly normal Neck: + pertinent finding (swelling next to catheter site) Respiratory/Chest: lungs clear Cardiovascular: regular rate, rhythm Abdomen: normal bowel sounds Extremities: + pertinent finding (bilateral [id number] amputation) Laboratory Results Last 24 Hours Test 12/07/16 11:09 12/07/16 16:53 12/07/16 17:40 12/07/16 18:57 Bedside Glucose 148 mg/dl 106 mg/dl Hepatitis B Surface Antigen NEG White Blood Count 8.72 K/uL Red Blood Count 3.72 M/uL Hemoglobin 10.5 g/dL Hematocrit 32.6 % Mean Corpuscular Volume 87.6 fL Mean Corpuscular Hemoglobin 28.2 pg Mean Corpuscular Hemoglobin Concent 32.2 g/dl Platelet Count 116 K/uL Mean Platelet Volume 9.2 fL Neutrophils (%) (Auto) 94.1 % Lymphocytes (%) (Auto) 3.6 % Monocytes (%) (Auto) 1.4 % Eosinophils (%) (Auto) 0.3 % Basophils (%) (Auto) 0.1 % Neutrophils # (Auto) 8.21 K/uL Lymphocytes # (Auto) 0.31 K/uL Monocytes # (Auto) 0.12 K/uL Eosinophils # (Auto) 0.03 K/uL Basophils # (Auto) 0.01 K/uL RDW Standard Deviation 46.2 fL RDW Coefficient of Variation 14.3 % Immature Granulocyte % (Auto) 0.5 % Immature Granulocyte # (Auto) 0.04 K/uL Lactic Acid Level 1.7 mmol/L Test 12/07/16 20:36 12/08/16 05:54 12/08/16 06:46 Bedside Glucose 146 mg/dl 127 mg/dl Random Vancomycin Level 17.0 mcg/ml Assessment and Plan (1) Bacteremia associated with intravascular line Assessment & Plan: will ask Dr. Monk to see multiple episodes of sepsis, and line infection. Vanco discontinued secondary to gram negative bacillus 2 out of 2 blood cultures positive. Awaiting final sensitivity results and identity. Switch to cefepime yesterday renally dosed (2) Delirium Assessment & Plan: Secondary to his bacteremia patient is able to answer questions. There is a nurse who works at the facility who wanted to relay the information to the patient's family. I asked the patient at this was okay with him and he preferred not to speak to the family at this moment in time. Today patient is mentally clear complaining of lower abdominal pain reinsert Butler catheter Secondary to his bacteremia patient is able to answer questions. There is a nurse who works at the facility who wanted to relay the information to the patient's family. I asked the patient at this was okay with him and he preferred not to speak to the family at this moment in time. Palliative care consultation was placed for goals of care discussion (3) Coronary artery disease (4) Obesity (5) End-stage renal disease on hemodialysis Assessment & Plan: Patient not able to tolerate dialysis secondary to pain as an outpatient. Currently has a fistula waiting to mature. Was not able to complete dialysis yesterday. Being followed by nephrology. (6) PAD (peripheral artery disease) Status post [id number] amputations bilaterally
[2016-12-08 10:30] LABS: BASO % 0.1 %; BASO ABS # 0.01 K/uL (0-0.2); COMPLETE YES; EOS % 0.7 %; HEMATOCRIT 30.3 % (42-52); IG% 0.4 %; LYMPH % 9.4 %; LYMPH ABS # 0.78 K/uL (1.2-3.4); MEAN CELL VOLUME 87.3 fL (80-100); MEAN CORPUSCULAR HEMOGLOBIN 27.4 pg (25-34); MEAN CORPUSCULAR HGB CONC 31.4 g/dl (32-36); NEUT % 80.4 %; PLATELET COUNT 108 K/uL (130-400); RED BLOOD COUNT 3.47 M/uL (4.7-6.1); WHITE BLOOD COUNT 8.33 K/uL (4.8-10.8)
[2016-12-08] MEDS: ALTEPLASE, RECOMBINANT 1 MG/ML 2 ML VIAL IV SCH ×2 (11:00→11:20)
[2016-12-08 11:06] LABS: BUN/CREATININE RATIO 11.2 (10-20); CALCIUM 8.2 mg/dl (8.5-10.1); POTASSIUM 3.7 mmol/L (3.5-5.1)
--- NOTE | 2016-12-08 12:07 | Nephrology Progress Note ---
Nephrology Progress Note Date of Service: Dec 08, 2016. Subjective c/o low abd pain; some dyspnea but not hypoxia; no f/c Objective Date Time Temp Pulse Resp B/P (MAP) Pulse Ox O2 Delivery O2 Flow Rate FiO2 12/08/16 08:18 37.2 91 18 97/64 (75) 97 Room Air 12/08/16 08:00 Nasal Cannula 2.0 12/08/16 04:00 Nasal Cannula 2.0 12/08/16 03:54 37.4 76 18 98 Nasal Cannula 2.0 12/08/16 01:30 36.8 87 22 106/42 (63) 93 Nasal Cannula 2.0 12/08/16 00:52 36.9 78 117/59 (78) 12/08/16 00:45 36.9 87 106/60 (75) 12/08/16 00:34 37.4 92 102/65 (77) 12/08/16 00:00 Nasal Cannula 2.0 12/08/16 00:00 102/65 (77) 12/07/16 22:45 37.4 92 90/60 (70) 98 Nasal Cannula 2.0 12/07/16 22:04 37.7 104 94/54 (67) 12/07/16 20:43 38.0 108 18 74/50 (58) 97 Nasal Cannula 2.0 12/07/16 18:55 24 12/07/16 17:15 63 100/78 12/07/16 17:00 59 87/53 12/07/16 16:45 50 99/66 12/07/16 16:30 77 114/47 12/07/16 16:24 95 130/79 12/07/16 16:15 77 131/43 12/07/16 16:00 95 118/92 12/07/16 16:00 93 Nasal Cannula 2.0 12/07/16 15:59 37.1 90 117/59 (78) 12/07/16 15:45 96 121/99 12/07/16 15:30 89 107/65 12/07/16 15:25 98 130/79 Physical Exam: General Appearance: no apparent distress, + obese (on 02nc, intermittently confused) Eyes: EOMI ENT: hearing grossly normal Neck: supple Respiratory/Chest: no respiratory distress, + decreased breath sounds and today some crackles Cardiovascular: regular rate, rhythm, + systolic murmur Abdomen: normal bowel sounds, non tender, soft Extremities: + pertinent finding (BL AKA; AVF L prox arm w/ slightly weak T/b) Neurologic/Psych: alert, normal mood/affect, oriented x 3 (occasional confusion ) Skin: warm/dry, + pallor Current Inpatient Medications Medications (Trade) Dose Ordered Sig/Edin Route Start Time Stop Time Status Last Admin Dose Admin Acetaminophen (Tylenol Tab) 650 mg Q4H PRN PO 12/07/16 01:00 01/06/17 00:59 Polyethylene (Miralax Powder Packet) 17 gm BID PO 12/07/16 09:00 01/06/17 08:59 12/07/16 23:02 17 GM Ascorbic Acid (Vitamin C Tab) 500 mg MoWeFr@0900 PO 12/09/16 09:00 01/08/17 08:59 Aspirin (Ecotrin Tab) 81 mg DAILY PO 12/07/16 09:00 01/06/17 08:59 Atorvastatin Calcium (Lipitor Tab) 40 mg HS PO 12/07/16 21:00 01/06/17 20:59 12/07/16 23:03 40 MG Calcium Acetate (Phoslo Cap) 1,334 mg TIDM PO 12/07/16 08:00 01/06/17 07:59 12/07/16 12:49 1,334 MG Salmeterol Xinafoate/ Fluticasone (Advair Diskus 250/50 Inh) 1 puff BID INH 12/07/16 09:00 01/06/17 08:59 12/08/16 09:02 1 PUFF Gabapentin (Neurontin Cap) 300 mg Q8H PO 12/07/16 06:00 01/06/17 05:59 12/07/16 23:03 300 MG Insulin Aspart (novoLOG ASPART) ACHS SC 12/07/16 06:30 01/06/17 06:59 12/07/16 14:24 3 UNITS Albuterol/ Ipratropium (Combivent Respimat Inh) 1 puffs QID PRN INH 12/07/16 01:30 01/06/17 01:29 Lactobacillus Acidophilus (Floranex Tab) 4 tab TID PO 12/07/16 09:00 01/06/17 08:59 12/08/16 09:03 4 TAB Loratadine (Claritin Tab) 10 mg DAILY PO 12/07/16 09:00 01/06/17 08:59 Lorazepam (Ativan Tab) 0.5 mg TID PO 12/07/16 09:00 01/06/17 08:59 12/08/16 09:00 0.5 MG Magnesium Hydroxide (Milk Of Magnesia Susp) 30 ml UD PRN PO 12/07/16 01:30 01/06/17 01:29 Metoprolol Succinate (Toprol Xl Tab) 25 mg BID PO 12/07/16 09:00 01/06/17 08:59 Oxycodone HCl (Oxycontin Tab) 40 mg Q12 PO 12/07/16 09:00 12/21/16 08:59 12/08/16 09:00 40 MG Senna/Docusate Sodium (Senokot S Tab) 1 tab BID PO 12/07/16 09:00 01/06/17 08:59 12/08/16 09:01 1 TAB Sertraline HCl (Zoloft Tab) 50 mg QAM PO 12/07/16 09:00 01/06/17 08:59 12/08/16 09:01 50 MG Cholecalciferol (Vitamin D Tab) 5,000 inter.unit DAILY PO 12/07/16 09:00 01/06/17 08:59 Dexamethasone (Decadron Tab) 2 mg DAILY PO 12/07/16 09:00 01/06/17 08:59 12/08/16 09:02 2 MG Ferrous Sulfate (Feosol Tab) 325 mg QAM PO 12/07/16 09:00 01/06/17 08:59 Pantoprazole Sodium (Protonix Tab) 40 mg SuTuThSa@0900 PO 12/07/16 09:00 01/06/17 08:59 12/07/16 08:17 40 MG Oxycodone HCl (Roxicodone Immediate Rel Tab) 10 mg Q6 PRN PO 12/07/16 01:30 01/06/17 01:29 12/07/16 16:12 10 MG Miscellaneous (Iv Fluids Completed) 1 ea PRN PRN N/A 12/07/16 01:45 12/07/17 01:44 Insulin Glargine (Lantus Solostar Pen) 5 units HS SC 12/07/16 21:00 01/06/17 20:59 12/07/16 23:00 5 UNITS Cefepime HCl (Consult) 1 ea UD PRN N/A 12/07/16 18:45 01/06/17 18:44 Cefepime HCl 1000 mg/Dextrose 111.3 ml @ 222.6 mls/ hr DAILY@2000 IV 12/08/16 20:00 12/22/16 19:59 Morphine Sulfate (MoRPHine SULFATE INJ) 4 mg Q4H PRN IV 12/07/16 19:00 12/21/16 18:59 12/07/16 18:59 4 MG Vancomycin HCl (Consult) 1 ea UD PRN N/A 12/08/16 00:30 01/07/17 00:29 Docusate Sodium (coLACE CAP) 100 mg BID PO 12/08/16 21:00 01/07/17 20:59 Lactulose (Chronulac Syrup) 30 gm TID PO 12/08/16 14:00 01/07/17 13:59 Hydromorphone HCl (Dilaudid Inj) 2 mg Q3HWA PRN IV 12/08/16 09:45 12/22/16 09:44 Last 24 Hours Test 12/07/16 16:53 12/07/16 17:40 12/07/16 18:57 12/07/16 20:36 Hepatitis B Surface Antigen NEG Bedside Glucose 106 mg/dl 146 mg/dl White Blood Count 8.72 K/uL Red Blood Count 3.72 M/uL Hemoglobin 10.5 g/dL Hematocrit 32.6 % Mean Corpuscular Volume 87.6 fL Mean Corpuscular Hemoglobin 28.2 pg Mean Corpuscular Hemoglobin Concent 32.2 g/dl Platelet Count 116 K/uL Mean Platelet Volume 9.2 fL Neutrophils (%) (Auto) 94.1 % Lymphocytes (%) (Auto) 3.6 % Monocytes (%) (Auto) 1.4 % Eosinophils (%) (Auto) 0.3 % Basophils (%) (Auto) 0.1 % Neutrophils # (Auto) 8.21 K/uL Lymphocytes # (Auto) 0.31 K/uL Monocytes # (Auto) 0.12 K/uL Eosinophils # (Auto) 0.03 K/uL Basophils # (Auto) 0.01 K/uL RDW Standard Deviation 46.2 fL RDW Coefficient of Variation 14.3 % Immature Granulocyte % (Auto) 0.5 % Immature Granulocyte # (Auto) 0.04 K/uL Lactic Acid Level 1.7 mmol/L Test 12/08/16 05:54 12/08/16 06:46 12/08/16 10:14 12/08/16 11:40 Random Vancomycin Level 17.0 mcg/ml Bedside Glucose 127 mg/dl 175 mg/dl White Blood Count 8.33 K/uL Red Blood Count 3.47 M/uL Hemoglobin 9.5 g/dL Hematocrit 30.3 % Mean Corpuscular Volume 87.3 fL Mean Corpuscular Hemoglobin 27.4 pg Mean Corpuscular Hemoglobin Concent 31.4 g/dl Platelet Count 108 K/uL Mean Platelet Volume 9.0 fL Neutrophils (%) (Auto) 80.4 % Lymphocytes (%) (Auto) 9.4 % Monocytes (%) (Auto) 9.0 % Eosinophils (%) (Auto) 0.7 % Basophils (%) (Auto) 0.1 % Neutrophils # (Auto) 6.70 K/uL Lymphocytes # (Auto) 0.78 K/uL Monocytes # (Auto) 0.75 K/uL Eosinophils # (Auto) 0.06 K/uL Basophils # (Auto) 0.01 K/uL RDW Standard Deviation 46.1 fL RDW Coefficient of Variation 14.5 % Immature Granulocyte % (Auto) 0.4 % Immature Granulocyte # (Auto) 0.03 K/uL Sodium Level 132 mmol/L Potassium Level 3.7 mmol/L Chloride Level 98 mmol/L Carbon Dioxide Level 24 mmol/L Anion Gap 10.0 mmol/L Blood Urea Nitrogen 57 mg/dl Creatinine 5.00 mg/dl Est Creatinine Clear Calc Drug Dose 14.2 ml/min Estimated GFR () 13.8 Estimated GFR (Non- 11.9 BUN/Creatinine Ratio 11.2 Random Glucose 112 mg/dl Calcium Level 8.2 mg/dl Assessment & Plan 56 y/o M [facility] resident w/ ESRD on MWF HD TDC dependent/maturing AVF, ischemic [employer] EF 15%, s/p BL AKA admitted overnight for evaluation of delirium> has GNR bacteremia + w/in 18 hrs of presentation. ESRD MWF HD but missed tx yesterday and shortening generally > do gentle tx today to keep on schedule > 3.5h, 3K bath, gentle UF; mini heparin. cont phoslo; he had to stop tx yesterday d/t abd pain; will reassess for HD in am again Anemia of chronic disease -no epo indicated; cont to monitor Encephalopathy, presumed GNR bacteremia -f/u pending cxs; aspiration pneumonia + UTI in setting chronic fole/ GNR bacteremia; empiric vanco/zosyn >> may need to consider tdc exchange -recommend inf dzs consult given his hx/complexity infection camp constipation/chronic pain per primary service/ minimize or avoid fleets in dialysis pt d/t risk of bowel perf; avoid mag based stimulants as well > try lactulose, dulcolax, softeners Appreciate c/s; will follow with you
[2016-12-08] MEDS: OXYCODONE HCL IR 5 MG TAB (IMMEDIATE RELEASE) PO PRN (12:23)
[2016-12-08] MEDS: LACTULOSE SYRUP 30 GM/45 ML UDP PO SCH ×4 (13:12→20:59)
--- NOTE | 2016-12-08 14:44 | Pharmacy Progress Note ---
Pharmacy Abx Dose Short Note Date of Service Dec 08, 2016. Assessment & Plan Assessment 56 year old male admitted with altered mental status, encephalopathy secondary to UTI vs. PNA vs. recurrent bacteremia vs. 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) * Antimicrobial use within the last 90 days - patient on chronic Vanc IV MWF after dialysis for discitis/osteo Plan Continue Vancomycin and Cefepime Vancomycin IV - chronic therapy * Pt received dose of 1000 mg 12/07 at 0530 * Pt had partial HD session on 12/07 and is currently at HD * Ordered one time dose of 500 mg IV to be given this evening after HD * Random level ordered for 12/08 am * Goal trough level for osteo/discitis: 20 mcg/mL (h/o Vanc SANJU = 2) Cefepime * Continue 1g IV every 24 hours * This dose is usually reserved for patients being treated for febrile neutropenia but it seems reasonable given patients complex infectious diseases history Thank you.
[2016-12-08] MEDS ORDERED: VANCOMYCIN INJ 500 MG in SODIUM CHLORIDE 0.9% 250ML 250 ML IV SCH (16:00)
[2016-12-08] MEDS: HYDROmorphone INJ 2 MG/ML SYR/VIAL IV PRN (18:22)
[2016-12-08] MEDS ORDERED: LORAZEPAM 2 MG/ML 1 ML VIAL ONE (18:41)
[2016-12-08] MEDS ORDERED: NURSING VERBAL MED ORDER ONE (18:45)
[2016-12-08] MEDS ORDERED: LORAZEPAM 2 MG/ML 1 ML VIAL IV ONE (19:00)
[2016-12-08] MEDS ORDERED: CEFEPIME IV 1,000 MG in DEXTROSE 5% 100ML IV SCH (20:00)
[2016-12-08] MEDS: MoRPHine SULFATE 4 MG/ML 1 ML CARP\\VIAL IV PRN (20:07)
--- NOTE | 2016-12-08 20:26 | Medical Consult ---
Consultation Date of Consultation: Dec 08, 2016. Attending Physician: Fausto Kohli D.O. Reason for Consultation: Gram-negative bacteremia, possible line sepsis History of Present Illness 56-year-old male well known to the Infectious Disease service, with end-stage renal disease, severe peripheral vascular disease, diabetes mellitus, status post bilateral AKAs, with recent infection of dialysis catheter right upper extremity requiring wound VAC drainage, on long-term antibiotics, now presents with 1 day history acute mental status changes. Has now been found to have positive blood cultures for gram-negative bacilli. Patient has had some erythema around dialysis catheter site, and chest x-ray shows changes consistent with either atelectasis or possible infiltrate. Ultrasound of the neck shows no obvious collection around catheter. Patient currently being treated with IV cefepime, gram-positive coverage has been discontinued. Past Medical/Surgical History Medical Problems: (1) Altered mental status Status: Acute (2) Change in mental status Status: Acute (3) Diabetes mellitus out of control Status: Acute (4) Elevated troponin Status: Acute (5) Elevated troponin Status: Acute (6) Elevated troponin Status: Acute (7) End stage renal failure on dialysis Status: Acute (8) Failure of outpatient treatment Status: Acute (9) Hyperkalemia Status: Acute (10) Hypocalcemia Status: Acute (11) Hypoglycemia Status: Acute (12) Hypokalemia Status: Acute (13) Hyponatremia Status: Acute (14) Hypotension Status: Acute (15) Hypothermia Status: Acute (16) Leukocytosis Status: Acute (17) Mass of spine Status: Acute (18) Opiate overdose Status: Acute (19) Renal failure Status: Acute (20) Renal insufficiency Status: Acute (21) Sepsis Status: Acute (22) Ulcer of toe Status: Acute (23) Ulcers of both lower extremities Status: Acute (24) UTI (urinary tract infection) Status: Acute (25) UTI (urinary tract infection) Status: Acute (26) UTI (urinary tract infection) Status: Acute Medical Problems: (1) Acute on chronic renal failure (2) Anemia (3) Arterial occlusion (4) Bacteremia associated with intravascular line (5) Cardiomyopathy (6) CHF (congestive heart failure) (7) Chronic back pain (8) CKD (chronic kidney disease), stage III (9) Coronary artery disease (10) Delirium (11) DM type 2 (diabetes mellitus, type 2) (12) End-stage renal disease on hemodialysis (13) Fever (14) HTN (hypertension) (15) Hyperlipidemia (16) Hypoxia (17) Infected permcath (18) Leukocytosis (19) Obesity (20) Osteomyelitis (21) PAD (peripheral artery disease) (22) PVD (peripheral vascular disease) (23) Unresponsiveness Surgical Problems: (1) ICD (implantable cardioverter-defibrillator), single, in situ (2) S/P AKA (above knee amputation) (3) S/P femoral-popliteal bypass surgery (4) Toe amputation status Family History Coronary artery disease MOTHER FH: atrial fibrillation FATHER FH: cancer FATHER Hypertension SISTER Valvular heart disease FATHER Social History Smoking Status: Former Smoker Alcohol Use: none Drug Use: none Marital Status: single Housing Status: snf Occupation Status: disabled Allergies Coded Allergies: Daptomycin (Verified Allergy, Severe, WATER ON LUNGS, 12/06/16) pt stated this allergy is "lethal" for him POLLEN (Verified Allergy, Unknown, 12/06/16) Ciprofloxacin (Verified Adverse Reaction, Intermediate, NAUSEA AND DIARHHEA, 12/06/16) Current Inpatient Medications Current Inpatient Medications Medications (Trade) Dose Ordered Sig/Edin Route Start Time Stop Time Status Last Admin Dose Admin Acetaminophen (Tylenol Tab) 650 mg Q4H PRN PO 12/07/16 01:00 01/06/17 00:59 Polyethylene (Miralax Powder Packet) 17 gm BID PO 12/07/16 09:00 01/06/17 08:59 12/07/16 23:02 17 GM Ascorbic Acid (Vitamin C Tab) 500 mg MoWeFr@0900 PO 12/09/16 09:00 01/08/17 08:59 Aspirin (Ecotrin Tab) 81 mg DAILY PO 12/07/16 09:00 01/06/17 08:59 Atorvastatin Calcium (Lipitor Tab) 40 mg HS PO 12/07/16 21:00 01/06/17 20:59 12/07/16 23:03 40 MG Calcium Acetate (Phoslo Cap) 1,334 mg TIDM PO 12/07/16 08:00 01/06/17 07:59 12/08/16 16:54 1,334 MG Salmeterol Xinafoate/ Fluticasone (Advair Diskus 250/50 Inh) 1 puff BID INH 12/07/16 09:00 8/21/17 08:59 12/08/16 09:02 1 PUFF Gabapentin (Neurontin Cap) 300 mg Q8H PO 12/07/16 06:00 01/06/17 05:59 12/07/16 23:03 300 MG Insulin Aspart (novoLOG ASPART) ACHS SC 12/07/16 06:30 01/06/17 06:59 12/07/16 14:24 3 UNITS Albuterol/ Ipratropium (Combivent Respimat Inh) 1 puffs QID PRN INH 12/07/16 01:30 01/06/17 01:29 Lactobacillus Acidophilus (Floranex Tab) 4 tab TID PO 12/07/16 09:00 01/06/17 08:59 12/08/16 09:03 4 TAB Loratadine (Claritin Tab) 10 mg DAILY PO 12/07/16 09:00 01/06/17 08:59 Lorazepam (Ativan Tab) 0.5 mg TID PO 12/07/16 09:00 01/06/17 08:59 12/08/16 12:23 0.5 MG Magnesium Hydroxide (Milk Of Magnesia Susp) 30 ml UD PRN PO 12/07/16 01:30 01/06/17 01:29 Metoprolol Succinate (Toprol Xl Tab) 25 mg BID PO 12/07/16 09:00 01/06/17 08:59 Oxycodone HCl (Oxycontin Tab) 40 mg Q12 PO 12/07/16 09:00 12/21/16 08:59 12/08/16 09:00 40 MG Senna/Docusate Sodium (Senokot S Tab) 1 tab BID PO 12/07/16 09:00 01/06/17 08:59 12/08/16 09:01 1 TAB Sertraline HCl (Zoloft Tab) 50 mg QAM PO 12/07/16 09:00 01/06/17 08:59 12/08/16 09:01 50 MG Cholecalciferol (Vitamin D Tab) 5,000 inter.unit DAILY PO 12/07/16 09:00 01/06/17 08:59 Dexamethasone (Decadron Tab) 2 mg DAILY PO 12/07/16 09:00 01/06/17 08:59 12/08/16 09:02 2 MG Ferrous Sulfate (Feosol Tab) 325 mg QAM PO 12/07/16 09:00 01/06/17 08:59 Pantoprazole Sodium (Protonix Tab) 40 mg SuTuThSa@0900 PO 12/07/16 09:00 01/06/17 08:59 12/07/16 08:17 40 MG Oxycodone HCl (Roxicodone Immediate Rel Tab) 10 mg Q6 PRN PO 12/07/16 01:30 01/06/17 01:29 12/08/16 12:23 10 MG Miscellaneous (Iv Fluids Completed) 1 ea PRN PRN N/A 12/07/16 01:45 12/07/17 01:44 Insulin Glargine (Lantus Solostar Pen) 5 units HS SC 12/07/16 21:00 01/06/17 20:59 12/07/16 23:00 5 UNITS Cefepime HCl (Consult) 1 ea UD PRN N/A 12/07/16 18:45 01/06/17 18:44 Cefepime HCl 1000 mg/Dextrose 111.3 ml @ 222.6 mls/ hr DAILY@2000 IV 12/08/16 20:00 12/22/16 19:59 12/08/16 20:06 222.6 MLS/HR Morphine Sulfate (MoRPHine SULFATE INJ) 4 mg Q4H PRN IV 12/07/16 19:00 12/21/16 18:59 12/08/16 20:07 4 MG Vancomycin HCl (Consult) 1 ea UD PRN N/A 12/08/16 00:30 01/07/17 00:29 Docusate Sodium (coLACE CAP) 100 mg BID PO 12/08/16 21:00 01/07/17 20:59 Lactulose (Chronulac Syrup) 30 gm TID PO 12/08/16 14:00 01/07/17 13:59 Hydromorphone HCl (Dilaudid Inj) 2 mg Q3HWA PRN IV 12/08/16 09:45 12/22/16 09:44 12/08/16 18:22 2 MG Review of Systems Otherwise not obtainable because of patient's mental status Physical Exam Date Time Temp Pulse Resp B/P (MAP) Pulse Ox O2 Delivery O2 Flow Rate FiO2 12/08/16 17:54 37.0 96 95/60 (72) 12/08/16 16:00 Nasal Cannula 2.0 12/08/16 16:00 63 98/53 12/08/16 15:45 80 98/67 12/08/16 15:30 50 107/81 12/08/16 15:15 63 104/72 12/08/16 15:00 37.0 99 100/60 (73) 12/08/16 15:00 37.0 100 98/68 (78) 12/08/16 15:00 77 100/55 12/08/16 14:45 100 98/68 12/08/16 14:30 95 94/65 12/08/16 14:15 93 91/62 12/08/16 14:00 93 91/61 12/08/16 13:45 89 90/66 12/08/16 13:30 91 89/62 12/08/16 13:15 50 108/60 12/08/16 13:07 37.0 84 84/64 (71) 12/08/16 13:07 37.2 90 95/68 (77) 12/08/16 13:00 88 98/70 12/08/16 12:45 80 105/61 12/08/16 12:28 37.0 84 18 84/64 (71) 100 Mask 12/08/16 12:28 108/78 (88) 12/08/16 12:00 Nasal Cannula 2.0 12/08/16 11:10 99 100/60 12/08/16 08:18 37.2 91 18 97/64 (75) 97 Room Air 12/08/16 08:00 Nasal Cannula 2.0 12/08/16 04:00 Nasal Cannula 2.0 12/08/16 03:54 37.4 76 18 98 Nasal Cannula 2.0 12/08/16 01:30 36.8 87 22 106/42 (63) 93 Nasal Cannula 2.0 12/08/16 00:52 36.9 78 117/59 (78) 12/08/16 00:45 36.9 87 106/60 (75) 12/08/16 00:34 37.4 92 102/65 (77) 12/08/16 00:00 Nasal Cannula 2.0 12/08/16 00:00 102/65 (77) 12/07/16 22:45 37.4 92 90/60 (70) 98 Nasal Cannula 2.0 12/07/16 22:04 37.7 104 94/54 (67) 12/07/16 20:43 38.0 108 18 74/50 (58) 97 Nasal Cannula 2.0 General Appearance: WD/WN, no apparent distress, + pertinent finding ( chronically ill-appearing) Head: normocephalic, atraumatic Eyes: normal inspection, sclerae normal ENT: normal ENT inspection, pharynx normal Neck: supple, no adenopathy, thyroid normal, trachea midline Respiratory/Chest: chest non-tender, lungs clear, normal breath sounds, no respiratory distress Cardiovascular: regular rate, rhythm, no gallop, + systolic murmur Abdomen/GI: normal bowel sounds, non tender, soft, no organomegaly Back: normal inspection, no CVA tenderness Extremities/Musculoskelatal: + slow capillary refill, + pertinent finding ( bilateral AKAs) Neurologic/Psych: alert, + disoriented Skin: normal color, no rash, + pertinent finding ( some erythema around the catheter) Lymphatic: no adenopathy Laboratory Results RUN DATE: 12/08/16 [facility] PAGE 1 RUN TIME: 1139 Specimen Inquiry PATIENT: YOUNG HINKLE LOC: Star # : [id number] AGE/SX: 56/M ROOM: 21 REG : 12/07/[address]: Fausto Kohli D.O. : 1960 BED: 1 DIS : STATUS: ADM IN TLOC: SPEC #: [id number] CLAUDIA: 12/06/16 STATUS: RES REQ #: [id number] RECD: 12/06/[address]: Raheel Givens M.D. SOURCE: BLOOD ENTR: 12/06/16-[address]: [facility]ila [facility] ORDERED: BLOOD CULTURE Procedure Result Verified Site BLD CULT Preliminary 12/08/16-1435 Organism 1 GRAM NEGATIVE BACILLI SENS SENSITIVITY TO FOLLOW Phoned results to MILEY KEY on 12/07/16 at 1224 by Cuca Michele. Results were verbalized back to REYES. END OF REPORT Last 24 Hours Test 12/07/16 20:36 12/08/16 05:54 12/08/16 06:46 12/08/16 10:14 Bedside Glucose 146 mg/dl 127 mg/dl Random Vancomycin Level 17.0 mcg/ml White Blood Count 8.33 K/uL Red Blood Count 3.47 M/uL Hemoglobin 9.5 g/dL Hematocrit 30.3 % Mean Corpuscular Volume 87.3 fL Mean Corpuscular Hemoglobin 27.4 pg Mean Corpuscular Hemoglobin Concent 31.4 g/dl Platelet Count 108 K/uL Mean Platelet Volume 9.0 fL Neutrophils (%) (Auto) 80.4 % Lymphocytes (%) (Auto) 9.4 % Monocytes (%) (Auto) 9.0 % Eosinophils (%) (Auto) 0.7 % Basophils (%) (Auto) 0.1 % Neutrophils # (Auto) 6.70 K/uL Lymphocytes # (Auto) 0.78 K/uL Monocytes # (Auto) 0.75 K/uL Eosinophils # (Auto) 0.06 K/uL Basophils # (Auto) 0.01 K/uL RDW Standard Deviation 46.1 fL RDW Coefficient of Variation 14.5 % Immature Granulocyte % (Auto) 0.4 % Immature Granulocyte # (Auto) 0.03 K/uL Sodium Level 132 mmol/L Potassium Level 3.7 mmol/L Chloride Level 98 mmol/L Carbon Dioxide Level 24 mmol/L Anion Gap 10.0 mmol/L Blood Urea Nitrogen 57 mg/dl Creatinine 5.00 mg/dl Est Creatinine Clear Calc Drug Dose 14.2 ml/min Estimated GFR () 13.8 Estimated GFR (Non- 11.9 BUN/Creatinine Ratio 11.2 Random Glucose 112 mg/dl Calcium Level 8.2 mg/dl Test 12/08/16 11:40 12/08/16 14:15 12/08/16 15:59 Bedside Glucose 175 mg/dl 122 mg/dl Hepatitis B Surface Antibody NEG Patient Name: YOUNG HINKLE Unit Number: [id number] Dictated: 12/07/16645 Transcribed: 12/07/16645 JA Printed Date/Time: [~ rep prt dt]/[~ rep prt tm] [~ rep ct labl] - [~ rep ct ivnm] [facility] [place] [address] Dictated: 12/07/16645 Transcribed: 12/07/16645 JA Printed Date/Time: [~ rep prt dt]/[~ rep prt tm] [~ rep ct labl] - [~ rep ct ivnm] CHEST ONE VIEW PORTABLE CLINICAL HISTORY: Sepsis. COMPARISON STUDY: Chest radiograph November 22, 2016. FINDINGS: A left subclavian pacer/AICD is in place as well as a dual lumen right internal jugular catheter. There is no pneumothorax. Lung volumes are diminished. Moderate cardiomegaly is noted. There is no evidence of pulmonary edema. Bibasilar opacities, right greater than left, are noted. Patient is rotated. IMPRESSION: 1. Bibasilar opacities, right greater than left. The findings could reflect pneumonia or atelectasis. 2. Cardiomegaly without evidence of pulmonary edema. Electronically signed by: Garry Lyman M.D. 12/07/2016 6:49 AM Dictated Date/Time: 12/07/2016 6:46 AM The status of this report is Signed. Draft = Not yet reviewed or approved by Radiologist. Signed = Reviewed and approved by Radiologist. <AttendingPhy>Fausto Kohli D.O.</AttendingPhy> <FamilyPhy>Hearthside, Catarina </FamilyPhy> <PrimaryPhy>Hearthside, Catarina</PrimaryPhy> <UnitNumber>[id number] </UnitNumber> <VisitNumber>[id number]</VisitNumber> <PatientName>YOUNG HINKLE </PatientName> <DateOfBirth>1960</DateOfBirth> <Location>[facility]</Location > <ServiceDate>12/06/16</ServiceDate> <MNE>ESINDI</MNE> <OrderingPhy>Raheel Givens M.D.</OrderingPhy> <OrderingPhyMNE>f rep ord dr layton</OrderingPhyMNE> < DictatingPhyMNE>f rep dict dr layton</DictatingPhyMNE> <CCListMNE>f rep ct mne</ CCListMNE> <AdmittingPhyMNE>f pt admit dr layton</AdmittingPhyMNE> <AttendingPhyMNE >f pt attend dr layton</AttendingPhyMNE> <ConsultingPhyMNE>f pt consult dr layton</ConsultingPhyMNE> <FamilyPhyMNE>f pt fam dr layton</FamilyPhyMNE> <OtherPhyMNE>f pt other dr layton</OtherPhyMNE> < PrimaryPhyMNE>f pt prim care dr layton</PrimaryPhyMNE> <ReferringPhyMNE>f pt referring dr layton</ReferringPhyMNE> Assessment & Plan 56-year-old male with end-stage renal disease, severe peripheral vascular disease, diabetes mellitus, now presents with Gram-negative bacteremia and encephalopathy. Most likely source would be dialysis catheter, and likely will need to be changed given identification of gram negatives. For now, current antibiotic regimen should provide appropriate coverage pending final identification and sensitivities. Will discuss further management with all involved. Will follow.
[2016-12-08] MEDS: INSULIN GLARGINE SOLOSTAR 100 UNITS/ML 3 ML PEN SC SCH (20:56)
[2016-12-08] MEDS: ATORVASTATIN 40 MG TAB PO SCH (21:00)
[2016-12-08] MEDS: DOCUSATE SODIUM 100 MG CAP PO SCH (21:00)
[2016-12-09] VITALS (20 sets, daily range): BP systolic 84–133; BP diastolic 47–99; PULSE 51–129; TEMP 36.4–37; O2SAT 92–100; Ht 165.1 cm; Wt 62.2 kg
[2016-12-09] MEDS: HYDROmorphone INJ 2 MG/ML SYR/VIAL IV PRN ×3 (04:36→23:48)
[2016-12-09] MEDS: GABAPENTIN 300 MG CAP PO SCH ×3 (06:16→22:00)
[2016-12-09] MEDS: CALCIUM ACETATE 667MG GELCAP PO SCH ×4 (07:30→16:45)
[2016-12-09] MEDS ORDERED: ALBUMIN HUMAN 25% 12.5 GM/50 ML VIAL IV ONE (08:00)
[2016-12-09] MEDS ORDERED: HEPARIN SOD (PORCINE) 1000 UNIT/ML 10 ML VIAL IV SCH ×2 (08:00→08:15)
[2016-12-09] MEDS ORDERED: GLUCOSE 10 TABS/TUBE PO PRN (08:00)
[2016-12-09] MEDS ORDERED: DEXTROSE 50% 50 ML SYR IV PRN (08:00)
[2016-12-09] MEDS ORDERED: GLUCOSE 40% GEL 15 GM TUBE PO PRN (08:00)
[2016-12-09] MEDS ORDERED: GLUCAGON FOR INJ 1 MG VIAL SQ PRN (08:00)
[2016-12-09] MEDS ORDERED: EPOETIN ALFA 10,000 UNITS/ML VIAL IV. ONE ×2 (08:00→08:15)
[2016-12-09] MEDS: LORAZEPAM 0.5 MG TAB PO SCH ×4 (08:10→20:05)
[2016-12-09] MEDS: OXYCODONE HCL 40 MG TABCR (OXYCONTIN) PO SCH ×2 (08:10→20:04)
[2016-12-09] MEDS: LACTULOSE SYRUP 30 GM/45 ML UDP PO SCH ×4 (08:12→21:00)
[2016-12-09] MEDS: LORATADINE 10 MG TAB PO SCH ×2 (08:12→08:37)
[2016-12-09] MEDS: FLUTICASONE/SALMETEROL 250/50 (ADVAIR) 14 PUFF/1 INHALER INH SCH ×4 (08:12→21:00)
[2016-12-09] MEDS: DOCUSATE SODIUM 100 MG CAP PO SCH ×4 (08:12→21:00)
[2016-12-09] MEDS: FERROUS SULFATE 325 MG TAB PO SCH (08:13)
[2016-12-09] MEDS: ASPIRIN 81 MG ECTAB PO SCH (08:13)
[2016-12-09] MEDS: DEXAMETHASONE 1 MG TAB PO SCH ×2 (08:13→08:37)
[2016-12-09] MEDS: POLYETHYLENE (MIRALAX) 17 GM PACK PO SCH ×4 (08:14→21:00)
[2016-12-09] MEDS: DOCUSATE SODIUM/SENNA 50/8.6MG TAB PO SCH ×4 (08:14→21:00)
[2016-12-09] MEDS: CHOLECALCIFEROL 1000 INTER.UNIT TAB PO SCH ×2 (08:15→08:39)
[2016-12-09] MEDS: SERTRALINE HCL 50 MG TAB PO SCH ×2 (08:16→08:40)
[2016-12-09] MEDS: LACTOBACILLUS ACIDOPHILUS (FLORANEX) TAB PO SCH ×5 (08:16→21:00)
[2016-12-09] MEDS: ASCORBIC ACID 500 MG TAB PO SCH ×2 (08:17→08:39)
[2016-12-09] MEDS: METOPROLOL SUCC 25MG EXT REL TAB PO SCH ×2 (08:17→21:00)
[2016-12-09 08:38] LABS: BUN/CREATININE RATIO 7.7 (10-20); CREATININE 2.8 mg/dl (0.60-1.40)
[2016-12-09 08:39] LABS: CALCIUM 8.7 mg/dl (8.5-10.1); POTASSIUM 3.7 mmol/L (3.5-5.1)
[2016-12-09] MEDS ORDERED: EPOETIN ALFA INJ 12,000 UNITS in SYRINGE 0 ML IV. SCH (09:00)
--- NOTE | 2016-12-09 09:05 | Clinical Documentation Query ---
CLINICAL DOCUMENTATION QUERY 56 year old male who presents with dialysis catheter bacteremia. H&P states this patient as having CHF with EF of 20% and cardiomyopathy. 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 In your clinical opinion is this patient being managed for: ( X ) Chronic systolic (reduced EF) CHF ( ) Other explanation of clinical findings (Please Explain) ( ) Unable to determine (Please Define) ( ) Need to Discuss ( ) Not Agree The medical record reflects the following clinical findings, treatment, and risk factors. Clinical Indicators: As above. Treatment: HD, daily weights, I/O's, Risk Factors: Age, cardiomyopathy, ESRD, Please clarify and document your clinical opinion in the progress notes and discharge summary. Terms such as "probable", "suspected", "likely", "questionable", "possible", or "still to be ruled out" are acceptable. IF IN AGREEMENT, YOU MUST DOCUMENT ABOVE DIAGNOSTIC STATEMENT IN DAILY PROGRESS NOTES AND DISCHARGE SUMMARY. This document is not part of the patient's record. Thank You, Thomas Hedrick, NEGRO [phone]
[2016-12-09 09:06] LABS: BASO % 0.1 %; BASO ABS # 0.01 K/uL (0-0.2); COMPLETE YES; EOS % 0.6 %; HEMATOCRIT 31.6 % (42-52); IG% 0.3 %; LYMPH % 10.7 %; LYMPH ABS # 0.93 K/uL (1.2-3.4); MEAN CELL VOLUME 87.3 fL (80-100); MEAN CORPUSCULAR HEMOGLOBIN 28.5 pg (25-34); MEAN CORPUSCULAR HGB CONC 32.6 g/dl (32-36); MONO % 13.8 %; NEUT % 74.5 %; PLATELET COUNT 110 K/uL (130-400); RED BLOOD COUNT 3.62 M/uL (4.7-6.1); WHITE BLOOD COUNT 8.67 K/uL (4.8-10.8)
[2016-12-09] MEDS ORDERED: LORAZEPAM 2 MG/ML 1 ML VIAL IV STA (09:07)
[2016-12-09] MEDS: HEPARIN SOD (PORCINE) 1000 UNIT/ML 10 ML VIAL IV SCH ×5 (09:30→19:50)
--- NOTE | 2016-12-09 10:05 | Dialysis Progress Note ---
Nephrology Dialysis Note Date of Service: Dec 09, 2016. Subjective agitated and confused this am > had ativan and now resting quietly on tx Objective Date Time Temp Pulse Resp B/P (MAP) Pulse Ox O2 Delivery O2 Flow Rate FiO2 12/09/16 08:00 36.7 91 16 107/68 (81) 100 Nasal Cannula 2.0 12/09/16 04:00 Nasal Cannula 2.0 12/09/16 03:57 95 18 130/82 (98) 92 12/09/16 00:00 Nasal Cannula 2.0 12/08/16 23:59 36.8 92 19 121/87 (98) 92 12/08/16 20:00 Nasal Cannula 2.0 12/08/16 17:54 37.0 96 95/60 (72) 12/08/16 16:00 Nasal Cannula 2.0 12/08/16 16:00 63 98/53 12/08/16 15:45 80 98/67 12/08/16 15:30 50 107/81 12/08/16 15:15 63 104/72 12/08/16 15:00 37.0 99 100/60 (73) 12/08/16 15:00 37.0 100 98/68 (78) 12/08/16 15:00 77 100/55 12/08/16 14:45 100 98/68 12/08/16 14:30 95 94/65 12/08/16 14:15 93 91/62 12/08/16 14:00 93 91/61 12/08/16 13:45 89 90/66 12/08/16 13:30 91 89/62 12/08/16 13:15 50 108/60 12/08/16 13:07 37.0 84 84/64 (71) 12/08/16 13:07 37.2 90 95/68 (77) 12/08/16 13:00 88 98/70 12/08/16 12:45 80 105/61 12/08/16 12:28 37.0 84 18 84/64 (71) 100 Mask 12/08/16 12:28 108/78 (88) 12/08/16 12:00 Nasal Cannula 2.0 12/08/16 11:10 99 100/60 Physical Exam: General Appearance: no apparent distress, + obese (on 02nc, intermittently confused) Eyes: EOMI ENT: hearing grossly normal Neck: supple Respiratory/Chest: no respiratory distress, + decreased breath sounds Cardiovascular: regular rate, rhythm, + systolic murmur Abdomen: normal bowel sounds, non tender, soft Extremities: + pertinent finding (BL AKA; AVF L prox arm w/ slightly weak T/b) Neurologic/Psych: sedated lightly Skin: warm/dry, + pallor Current Inpatient Medications Medications (Trade) Dose Ordered Sig/Edin Route Start Time Stop Time Status Last Admin Dose Admin Acetaminophen (Tylenol Tab) 650 mg Q4H PRN PO 12/07/16 01:00 01/06/17 00:59 Polyethylene (Miralax Powder Packet) 17 gm BID PO 12/07/16 09:00 01/06/17 08:59 12/07/16 23:02 17 GM Ascorbic Acid (Vitamin C Tab) 500 mg MoWeFr@0900 PO 12/09/16 09:00 01/08/17 08:59 Aspirin (Ecotrin Tab) 81 mg DAILY PO 12/07/16 09:00 01/06/17 08:59 12/09/16 08:13 81 MG Atorvastatin Calcium (Lipitor Tab) 40 mg HS PO 12/07/16 21:00 01/06/17 20:59 12/07/16 23:03 40 MG Calcium Acetate (Phoslo Cap) 1,334 mg TIDM PO 12/07/16 08:00 01/06/17 07:59 12/08/16 16:54 1,334 MG Salmeterol Xinafoate/ Fluticasone (Advair Diskus 250/50 Inh) 1 puff BID INH 12/07/16 09:00 01/06/17 08:59 12/08/16 20:53 1 PUFF Gabapentin (Neurontin Cap) 300 mg Q8H PO 12/07/16 06:00 01/06/17 05:59 12/09/16 06:16 300 MG Albuterol/ Ipratropium (Combivent Respimat Inh) 1 puffs QID PRN INH 12/07/16 01:30 01/06/17 01:29 Lactobacillus Acidophilus (Floranex Tab) 4 tab TID PO 12/07/16 09:00 01/06/17 08:59 12/08/16 09:03 4 TAB Loratadine (Claritin Tab) 10 mg DAILY PO 12/07/16 09:00 01/06/17 08:59 Lorazepam (Ativan Tab) 0.5 mg TID PO 12/07/16 09:00 01/06/17 08:59 12/08/16 20:49 0.5 MG Magnesium Hydroxide (Milk Of Magnesia Susp) 30 ml UD PRN PO 12/07/16 01:30 01/06/17 01:29 Metoprolol Succinate (Toprol Xl Tab) 25 mg BID PO 12/07/16 09:00 01/06/17 08:59 Oxycodone HCl (Oxycontin Tab) 40 mg Q12 PO 12/07/16 09:00 12/21/16 08:59 12/09/16 08:10 40 MG Senna/Docusate Sodium (Senokot S Tab) 1 tab BID PO 12/07/16 09:00 01/06/17 08:59 12/08/16 09:01 1 TAB Sertraline HCl (Zoloft Tab) 50 mg QAM PO 12/07/16 09:00 01/06/17 08:59 12/08/16 09:01 50 MG Cholecalciferol (Vitamin D Tab) 5,000 inter.unit DAILY PO 12/07/16 09:00 01/06/17 08:59 Dexamethasone (Decadron Tab) 2 mg DAILY PO 12/07/16 09:00 01/06/17 08:59 12/08/16 09:02 2 MG Ferrous Sulfate (Feosol Tab) 325 mg QAM PO 12/07/16 09:00 01/06/17 08:59 12/09/16 08:13 325 MG Pantoprazole Sodium (Protonix Tab) 40 mg SuTuThSa@0900 PO 12/07/16 09:00 01/06/17 08:59 12/07/16 08:17 40 MG Oxycodone HCl (Roxicodone Immediate Rel Tab) 10 mg Q6 PRN PO 12/07/16 01:30 01/06/17 01:29 12/08/16 12:23 10 MG Miscellaneous (Iv Fluids Completed) 1 ea PRN PRN N/A 12/07/16 01:45 12/07/17 01:44 Insulin Glargine (Lantus Solostar Pen) 5 units HS SC 12/07/16 21:00 01/06/17 20:59 12/08/16 20:56 5 UNITS Cefepime HCl (Consult) 1 ea UD PRN N/A 12/07/16 18:45 01/06/17 18:44 Cefepime HCl 1000 mg/Dextrose 111.3 ml @ 222.6 mls/ hr DAILY@2000 IV 12/08/16 20:00 12/22/16 19:59 12/08/16 20:06 222.6 MLS/HR Morphine Sulfate (MoRPHine SULFATE INJ) 4 mg Q4H PRN IV 12/07/16 19:00 12/21/16 18:59 12/08/16 20:07 4 MG Vancomycin HCl (Consult) 1 ea UD PRN N/A 12/08/16 00:30 01/07/17 00:29 Docusate Sodium (coLACE CAP) 100 mg BID PO 12/08/16 21:00 01/07/17 20:59 Lactulose (Chronulac Syrup) 30 gm TID PO 12/08/16 14:00 01/07/17 13:59 Hydromorphone HCl (Dilaudid Inj) 2 mg Q3HWA PRN IV 12/08/16 09:45 12/22/16 09:44 12/09/16 04:36 2 MG Insulin Aspart (novoLOG ASPART) SLIDING SCALE If C... ACHS SC 12/09/16 11:00 01/08/17 10:59 Glucose (Glucose 40% Gel) 15-30 GRAMS 15 GRAMS... UD PRN PO 12/09/16 08:00 01/08/17 07:59 Glucose (Glucose Chew Tab) 4-8 Tablets 4 Tabl... UD PRN PO 12/09/16 08:00 01/08/17 07:59 Dextrose (Dextrose 50% 50ML Syringe) 25-50ML OF 50% DW IV FOR... UD PRN IV 12/09/16 08:00 01/08/17 07:59 Glucagon (Glucagon Inj) 1 mg UD PRN SQ 12/09/16 08:00 01/08/17 07:59 Heparin Sodium (Porcine) (Heparin Iv Bolus) 400 unit Q1H IV 12/09/16 09:00 12/09/16 11:01 Heparin Sodium (Porcine) (Heparin Iv Bolus) 400 unit Q1H IV 12/09/16 08:30 12/09/16 10:31 Albumin Human (Albumin 25%) 12.5 gm 0900,1100 IV 12/09/16 09:00 12/09/16 18:00 Last 24 Hours Test 12/08/16 10:14 12/08/16 11:40 12/08/16 14:15 12/08/16 15:59 White Blood Count 8.33 K/uL Red Blood Count 3.47 M/uL Hemoglobin 9.5 g/dL Hematocrit 30.3 % Mean Corpuscular Volume 87.3 fL Mean Corpuscular Hemoglobin 27.4 pg Mean Corpuscular Hemoglobin Concent 31.4 g/dl Platelet Count 108 K/uL Mean Platelet Volume 9.0 fL Neutrophils (%) (Auto) 80.4 % Lymphocytes (%) (Auto) 9.4 % Monocytes (%) (Auto) 9.0 % Eosinophils (%) (Auto) 0.7 % Basophils (%) (Auto) 0.1 % Neutrophils # (Auto) 6.70 K/uL Lymphocytes # (Auto) 0.78 K/uL Monocytes # (Auto) 0.75 K/uL Eosinophils # (Auto) 0.06 K/uL Basophils # (Auto) 0.01 K/uL RDW Standard Deviation 46.1 fL RDW Coefficient of Variation 14.5 % Immature Granulocyte % (Auto) 0.4 % Immature Granulocyte # (Auto) 0.03 K/uL Sodium Level 132 mmol/L Potassium Level 3.7 mmol/L Chloride Level 98 mmol/L Carbon Dioxide Level 24 mmol/L Anion Gap 10.0 mmol/L Blood Urea Nitrogen 57 mg/dl Creatinine 5.00 mg/dl Est Creatinine Clear Calc Drug Dose 14.2 ml/min Estimated GFR () 13.8 Estimated GFR (Non- 11.9 BUN/Creatinine Ratio 11.2 Random Glucose 112 mg/dl Calcium Level 8.2 mg/dl Bedside Glucose 175 mg/dl 122 mg/dl Hepatitis B Surface Antibody NEG Test 12/08/16 20:37 12/09/16 05:21 12/09/16 06:51 12/09/16 07:45 Bedside Glucose 108 mg/dl White Blood Count 8.67 K/uL Red Blood Count 3.62 M/uL Hemoglobin 10.3 g/dL Hematocrit 31.6 % Mean Corpuscular Volume 87.3 fL Mean Corpuscular Hemoglobin 28.5 pg Mean Corpuscular Hemoglobin Concent 32.6 g/dl Platelet Count 110 K/uL Mean Platelet Volume 9.0 fL Neutrophils (%) (Auto) 74.5 % Lymphocytes (%) (Auto) 10.7 % Monocytes (%) (Auto) 13.8 % Eosinophils (%) (Auto) 0.6 % Basophils (%) (Auto) 0.1 % Neutrophils # (Auto) 6.45 K/uL Lymphocytes # (Auto) 0.93 K/uL Monocytes # (Auto) 1.20 K/uL Eosinophils # (Auto) 0.05 K/uL Basophils # (Auto) 0.01 K/uL RDW Standard Deviation 46.2 fL RDW Coefficient of Variation 14.5 % Immature Granulocyte % (Auto) 0.3 % Immature Granulocyte # (Auto) 0.03 K/uL Sodium Level 137 mmol/L Potassium Level 3.7 mmol/L Chloride Level 103 mmol/L Carbon Dioxide Level 26 mmol/L Anion Gap 8.0 mmol/L Blood Urea Nitrogen 22 mg/dl Creatinine 2.80 mg/dl Est Creatinine Clear Calc Drug Dose 25.3 ml/min Estimated GFR () 27.8 Estimated GFR (Non- 24.0 BUN/Creatinine Ratio 7.7 Random Glucose 65 mg/dl Calcium Level 8.7 mg/dl Random Vancomycin Level 19.7 mcg/ml Date/Time Source Procedure Growth Status 12/09/16 09:44 Blood Blood Culture Pending Received 12/09/16 09:36 Blood Blood Culture Pending Received Assessment & Plan 56 y/o M [place] resident w/ ESRD on MWF HD TDC dependent/maturing AVF, ischemic [employer] EF 15%, s/p BL AKA admitted overnight for evaluation of delirium> has GNR bacteremia + w/in 18 hrs of presentation. ESRD MWF HD for tx today > 3.5h, 3K bath, gentle UF; mini heparin. cont phoslo; albumin IV today w/ HD to optimize uf given labile bp Anemia of chronic disease -will give epo today Encephalopathy, presumed GNR bacteremia -f/u pending cxs; aspiration pneumonia + UTI in setting chronic fole/ GNR bacteremia; empiric vanco/zosyn >> may need to consider tdc exchange -f/u inf dzs consult given his hx/complexity infection camp constipation/chronic pain per primary service/ minimize or avoid fleets in dialysis pt d/t risk of bowel perf; avoid mag based stimulants as well > try lactulose, dulcolax, softeners Appreciate c/s; will follow with you
[2016-12-09] MEDS: ALBUMIN HUMAN 25% 12.5 GM/50 ML VIAL IV SCH ×2 (10:24→11:14)
[2016-12-09] MEDS: INSULIN ASPART 100 UNITS/ML 3 ML PEN SC SCH ×3 (11:00→22:16)
--- NOTE | 2016-12-09 11:42 | Pharmacy Progress Note ---
Pharmacy Abx Dose Short Note Date of Service Dec 09, 2016. Assessment & Plan Assessment 56 year old male receiving vancomycin IV for chronic suppressive therapy of discitis / osteomyelitis as well as cefepime IV for treatment of enterobacter cloacae bacteremia, in the setting of possible HD cath infection, possible aspiration pnx and possible UTI Plan Vancomycin * Random level of 19.7 mcg/mL drawn with AM labs today is therapeutic * Vancomycin is being dosed empirically based upon random levels * Patient is scheduled to have HD 3.5hr treatment today. Would expect HD to remove vancomycin. Will give 500mg IV x 1 in minimum volume AFTER HD * Will order random level with AM labs on Friday as this is when he is due for next HD treatment * The current plan is to redose vanco when level 15-20 or anticipated to be between 15-20 after a HD session * Vancomycin is being used for chronic suppressive therapy in this patient Cefepime * Current dosage is appropriate for indication and renal fxn - continue 1gm Q 24 hrs * Based upon organism sensitivities one may consider deescalation to Ceftriaxone for once daily dosing and as well as less dependence on renal clearance Pharmacy will continue to follow and will adjust dose/frequency as necessary. Thank you.
--- NOTE | 2016-12-09 13:35 | Hospitalist Progress Note ---
Hospitalist Progress Note Date of Service Dec 09, 2016. Subjective Pt evaluation today including: conversation w/ patient, conversation w/ family , physical exam, lab review, review of studies, conversation w/ internal controls consultant, review of inpatient medication list Pt confused and agitated this AM Refused dialysis and threw meds at nurse this AM Sister at bedside Additional Comments: Unable to obtain due to confusion Objective Vital Signs Date Time Temp Pulse Resp B/P (MAP) Pulse Ox O2 Delivery O2 Flow Rate FiO2 12/09/16 12:45 91 114/92 12/09/16 12:30 84 92/47 12/09/16 12:15 52 96/67 12/09/16 12:00 103 121/73 12/09/16 12:00 36.4 95 18 133/75 (94) 98 Room Air 12/09/16 11:45 51 102/59 12/09/16 11:30 104 96/61 12/09/16 11:15 90 133/75 12/09/16 11:00 97 89/65 12/09/16 10:45 88 105/58 12/09/16 10:30 91 118/99 12/09/16 10:15 97 90/62 12/09/16 09:54 88 110/60 12/09/16 09:45 36.9 90 84/63 (70) 12/09/16 08:00 36.7 91 16 107/68 (81) 100 Nasal Cannula 2.0 12/09/16 04:00 Nasal Cannula 2.0 12/09/16 03:57 95 18 130/82 (98) 92 12/09/16 00:00 Nasal Cannula 2.0 12/08/16 23:59 36.8 92 19 121/87 (98) 92 12/08/16 20:00 Nasal Cannula 2.0 12/08/16 17:54 37.0 96 95/60 (72) 12/08/16 16:00 Nasal Cannula 2.0 12/08/16 16:00 63 98/53 12/08/16 15:45 80 98/67 12/08/16 15:30 50 107/81 12/08/16 15:15 63 104/72 12/08/16 15:00 37.0 99 100/60 (73) 12/08/16 15:00 37.0 100 98/68 (78) 12/08/16 15:00 77 100/55 12/08/16 14:45 100 98/68 12/08/16 14:30 95 94/65 12/08/16 14:15 93 91/62 12/08/16 14:00 93 91/61 12/08/16 13:45 89 90/66 12/08/16 13:30 91 89/62 Physical Exam General Appearance: WD/WN, + mild distress Eyes: normal inspection, PERRL, EOMI, sclerae normal Neck: supple, no adenopathy, thyroid normal, no JVD Respiratory/Chest: chest non-tender, lungs clear, normal breath sounds, no respiratory distress Cardiovascular: regular rate, rhythm, no gallop, no JVD, no murmur Abdomen: normal bowel sounds, non tender, soft, no organomegaly Extremities: non-tender, normal inspection, + pertinent finding (bilateral BKA) Neurologic/Psychiatric: no motor/sensory deficits, alert, + disoriented Laboratory Results Last 24 Hours Test 12/08/16 14:15 12/08/16 15:59 12/08/16 20:37 12/09/16 05:21 Hepatitis B Surface Antibody NEG Bedside Glucose 122 mg/dl 108 mg/dl White Blood Count 8.67 K/uL Red Blood Count 3.62 M/uL Hemoglobin 10.3 g/dL Hematocrit 31.6 % Mean Corpuscular Volume 87.3 fL Mean Corpuscular Hemoglobin 28.5 pg Mean Corpuscular Hemoglobin Concent 32.6 g/dl Platelet Count 110 K/uL Mean Platelet Volume 9.0 fL Neutrophils (%) (Auto) 74.5 % Lymphocytes (%) (Auto) 10.7 % Monocytes (%) (Auto) 13.8 % Eosinophils (%) (Auto) 0.6 % Basophils (%) (Auto) 0.1 % Neutrophils # (Auto) 6.45 K/uL Lymphocytes # (Auto) 0.93 K/uL Monocytes # (Auto) 1.20 K/uL Eosinophils # (Auto) 0.05 K/uL Basophils # (Auto) 0.01 K/uL RDW Standard Deviation 46.2 fL RDW Coefficient of Variation 14.5 % Immature Granulocyte % (Auto) 0.3 % Immature Granulocyte # (Auto) 0.03 K/uL Sodium Level 137 mmol/L Potassium Level 3.7 mmol/L Chloride Level 103 mmol/L Carbon Dioxide Level 26 mmol/L Anion Gap 8.0 mmol/L Blood Urea Nitrogen 22 mg/dl Creatinine 2.80 mg/dl Est Creatinine Clear Calc Drug Dose 25.3 ml/min Estimated GFR () 27.8 Estimated GFR (Non- 24.0 BUN/Creatinine Ratio 7.7 Random Glucose 65 mg/dl Calcium Level 8.7 mg/dl Random Vancomycin Level 19.7 mcg/ml Test 12/09/16 06:51 12/09/16 07:45 12/09/16 11:23 Bedside Glucose 66 mg/dl 73 mg/dl 71 mg/dl Assessment and Plan (1) Bacteremia associated with intravascular line Assessment & Plan: Likely source from dialysis catheter Cont cefepime and vanc at this time Dr Monk consulted Blood cx pos for enterobacter cloaca, repeat blood cx pending No leukocytosis or fevers noted Sister concerned with overall health, considering hospice, will need POA determination (2) Delirium Assessment & Plan: Secondary to his bacteremia as stated above Continue antibiotics Palliative care consultation was placed for goals of care discussion (3) Coronary artery disease Assessment & Plan: Stable Held meds for parameters ASA given this AM (4) Obesity (5) End-stage renal disease on hemodialysis Assessment & Plan: Patient currently getting dialysis Ativan 1mg IV given this AM for agitation (6) PAD (peripheral artery disease) Chronic systolic (reduced EF) CHF, stable
[2016-12-09] MEDS ORDERED: VANCOMYCIN INJ 500 MG in SODIUM CHLORIDE 0.9% 100ML 100 ML IV ONE (14:00)
--- NOTE | 2016-12-09 14:14 | Infectious Disease Progress Nt ---
Progress Note Date of Service Dec 09, 2016. Subjective Pt evaluation today including: conversation w/ patient, physical exam, chart review, lab review, review of studies, conversation w/ [employer] sales consultant, review of inpatient medication list Remains confused and agitated. Blood cultures have grown Enterobacter. All Other Systems: Reviewed and Negative Medications Current Inpatient Medications Medications (Trade) Dose Ordered Sig/Edin Route Start Time Stop Time Status Last Admin Dose Admin Acetaminophen (Tylenol Tab) 650 mg Q4H PRN PO 12/07/16 01:00 01/06/17 00:59 Polyethylene (Miralax Powder Packet) 17 gm BID PO 12/07/16 09:00 01/06/17 08:59 12/07/16 23:02 17 GM Ascorbic Acid (Vitamin C Tab) 500 mg MoWeFr@0900 PO 12/09/16 09:00 01/08/17 08:59 Aspirin (Ecotrin Tab) 81 mg DAILY PO 12/07/16 09:00 01/06/17 08:59 12/09/16 08:13 81 MG Atorvastatin Calcium (Lipitor Tab) 40 mg HS PO 12/07/16 21:00 01/06/17 20:59 12/07/16 23:03 40 MG Calcium Acetate (Phoslo Cap) 1,334 mg TIDM PO 12/07/16 08:00 01/06/17 07:59 12/08/16 16:54 1,334 MG Salmeterol Xinafoate/ Fluticasone (Advair Diskus 250/50 Inh) 1 puff BID INH 12/07/16 09:00 01/06/17 08:59 12/08/16 20:53 1 PUFF Gabapentin (Neurontin Cap) 300 mg Q8H PO 12/07/16 06:00 01/06/17 05:59 12/09/16 06:16 300 MG Albuterol/ Ipratropium (Combivent Respimat Inh) 1 puffs QID PRN INH 12/07/16 01:30 01/06/17 01:29 Lactobacillus Acidophilus (Floranex Tab) 4 tab TID PO 12/07/16 09:00 01/06/17 08:59 12/08/16 09:03 4 TAB Loratadine (Claritin Tab) 10 mg DAILY PO 12/07/16 09:00 01/06/17 08:59 Lorazepam (Ativan Tab) 0.5 mg TID PO 12/07/16 09:00 01/06/17 08:59 12/08/16 20:49 0.5 MG Magnesium Hydroxide (Milk Of Magnesia Susp) 30 ml UD PRN PO 12/07/16 01:30 01/06/17 01:29 Metoprolol Succinate (Toprol Xl Tab) 25 mg BID PO 12/07/16 09:00 01/06/17 08:59 Oxycodone HCl (Oxycontin Tab) 40 mg Q12 PO 12/07/16 09:00 12/21/16 08:59 12/09/16 08:10 40 MG Senna/Docusate Sodium (Senokot S Tab) 1 tab BID PO 12/07/16 09:00 01/06/17 08:59 12/08/16 09:01 1 TAB Sertraline HCl (Zoloft Tab) 50 mg QAM PO 12/07/16 09:00 01/06/17 08:59 12/08/16 09:01 50 MG Cholecalciferol (Vitamin D Tab) 5,000 inter.unit DAILY PO 12/07/16 09:00 01/06/17 08:59 Dexamethasone (Decadron Tab) 2 mg DAILY PO 12/07/16 09:00 01/06/17 08:59 12/08/16 09:02 2 MG Ferrous Sulfate (Feosol Tab) 325 mg QAM PO 12/07/16 09:00 01/06/17 08:59 12/09/16 08:13 325 MG Pantoprazole Sodium (Protonix Tab) 40 mg SuTuThSa@0900 PO 12/07/16 09:00 01/06/17 08:59 12/07/16 08:17 40 MG Oxycodone HCl (Roxicodone Immediate Rel Tab) 10 mg Q6 PRN PO 12/07/16 01:30 01/06/17 01:29 12/08/16 12:23 10 MG Miscellaneous (Iv Fluids Completed) 1 ea PRN PRN N/A 12/07/16 01:45 12/07/17 01:44 Insulin Glargine (Lantus Solostar Pen) 5 units HS SC 12/07/16 21:00 01/06/17 20:59 12/08/16 20:56 5 UNITS Morphine Sulfate (MoRPHine SULFATE INJ) 4 mg Q4H PRN IV 12/07/16 19:00 12/21/16 18:59 12/08/16 20:07 4 MG Vancomycin HCl (Consult) 1 ea UD PRN N/A 12/08/16 00:30 01/07/17 00:29 Docusate Sodium (coLACE CAP) 100 mg BID PO 12/08/16 21:00 01/07/17 20:59 Lactulose (Chronulac Syrup) 30 gm TID PO 12/08/16 14:00 01/07/17 13:59 Hydromorphone HCl (Dilaudid Inj) 2 mg Q3HWA PRN IV 12/08/16 09:45 12/22/16 09:44 12/09/16 04:36 2 MG Insulin Aspart (novoLOG ASPART) SLIDING SCALE If C... ACHS SC 12/09/16 11:00 01/08/17 10:59 Glucose (Glucose 40% Gel) 15-30 GRAMS 15 GRAMS... UD PRN PO 12/09/16 08:00 01/08/17 07:59 Glucose (Glucose Chew Tab) 4-8 Tablets 4 Tabl... UD PRN PO 12/09/16 08:00 01/08/17 07:59 Dextrose (Dextrose 50% 50ML Syringe) 25-50ML OF 50% DW IV FOR... UD PRN IV 12/09/16 08:00 01/08/17 07:59 Glucagon (Glucagon Inj) 1 mg UD PRN SQ 12/09/16 08:00 01/08/17 07:59 Albumin Human (Albumin 25%) 12.5 gm 0900,1100 IV 12/09/16 09:00 12/09/16 18:00 12/09/16 11:14 12.5 GM Vancomycin HCl 500 mg/Sodium Chloride 110 ml @ 55 mls/hr AFTER HEMODIALYSIS ONCE IV 12/09/16 14:00 12/09/16 15:59 Ceftriaxone Sodium 2000 mg/ Dextrose 70 ml @ 100 mls/hr Q24H IV 12/09/16 14:15 12/23/16 14:14 UNV Objective Vital Signs Date Time Temp Pulse Resp B/P (MAP) Pulse Ox O2 Delivery O2 Flow Rate FiO2 12/09/16 13:15 92 98/66 12/09/16 13:00 93 108/69 12/09/16 12:45 91 114/92 12/09/16 12:30 84 92/47 12/09/16 12:15 52 96/67 12/09/16 12:00 103 121/73 12/09/16 12:00 36.4 95 18 133/75 (94) 98 Room Air 12/09/16 11:45 51 102/59 12/09/16 11:30 104 96/61 12/09/16 11:15 90 133/75 12/09/16 11:00 97 89/65 12/09/16 10:45 88 105/58 12/09/16 10:30 91 118/99 12/09/16 10:15 97 90/62 12/09/16 09:54 88 110/60 12/09/16 09:45 36.9 90 84/63 (70) 12/09/16 08:00 36.7 91 16 107/68 (81) 100 Nasal Cannula 2.0 12/09/16 04:00 Nasal Cannula 2.0 12/09/16 03:57 95 18 130/82 (98) 92 12/09/16 00:00 Nasal Cannula 2.0 12/08/16 23:59 36.8 92 19 121/87 (98) 92 12/08/16 20:00 Nasal Cannula 2.0 12/08/16 17:54 37.0 96 95/60 (72) 12/08/16 16:00 Nasal Cannula 2.0 12/08/16 16:00 63 98/53 12/08/16 15:45 80 98/67 12/08/16 15:30 50 107/81 12/08/16 15:15 63 104/72 12/08/16 15:00 37.0 99 100/60 (73) 12/08/16 15:00 37.0 100 98/68 (78) 12/08/16 15:00 77 100/55 12/08/16 14:45 100 98/68 12/08/16 14:30 95 94/65 12/08/16 14:15 93 91/62 Physical Exam General Appearance: WD/WN, + mild distress Eyes: normal inspection, sclerae normal ENT: normal ENT inspection, pharynx normal Neck: supple, trachea midline Respiratory/Chest: lungs clear, normal breath sounds, no respiratory distress Cardiovascular: regular rate, rhythm, no gallop, no murmur Abdomen: normal bowel sounds, non tender, soft, no organomegaly Extremities: non-tender, + pertinent finding (bilateral BKAs) Neurologic/Psychiatric: alert, + disoriented Skin: normal color, no rash Lymphatic: no adenopathy Laboratory Results RUN DATE: 12/09/16 [facility] LAB PAGE 1 RUN TIME: 806 Specimen Inquiry PATIENT: YOUNG HINKLE LOC: [facility] # : [id number] AGE/SX: 56/M ROOM: [facility] REG : 12/07/[address]: Fausto Kohli D.O. : 1960 BED: 1 DIS : STATUS: ADM IN TLOC: SPEC #: [id number] CLAUDIA: 12/06/16 STATUS: COMP REQ #: [id number] RECD: 12/06/16-[address]: Raheel Givens M.D. SOURCE: BLOOD ENTR: 12/06/[address] [facility] [address]: Delmi Avila [facility]: ORDERED: BLOOD CULTURE Procedure Result Verified Site BLD CULT Final 12/09/16-07 Organism 1 ENTEROBACTER CLOACAE SENS SENSITIVITY TO FOLLOW Phoned results to MILEY KEY on 12/07/16 at 1224 by Cuca Michele. Results were verbalized back to REYES. 1. ENTEROBACTER CLOACAE Target Route Dose RX AB Cost M.I.C. IQ ------ ----- ------ -- ------ -------- - ------ TRIMET/SULFA R >38 CEFOTAXIME S <=2 CEFTRIAXONE S <=1 CEFEPIME S <=4 IMIPENEM S <=1 GENTAMICIN S <=4 TOBRAMYCIN S <=4 AMIKACIN S <=16 CIPROFLOXACIN S <=1 LEVOFLOXACIN S <=2 ERTAPENEM S <=1 PIP/TAZO S <=16 S = SENSITIVE I = INTERMEDIATE R = RESISTANT Last 24 Hours Test 12/08/16 14:15 12/08/16 15:59 12/08/16 20:37 12/09/16 05:21 Hepatitis B Surface Antibody NEG Bedside Glucose 122 mg/dl 108 mg/dl White Blood Count 8.67 K/uL Red Blood Count 3.62 M/uL Hemoglobin 10.3 g/dL Hematocrit 31.6 % Mean Corpuscular Volume 87.3 fL Mean Corpuscular Hemoglobin 28.5 pg Mean Corpuscular Hemoglobin Concent 32.6 g/dl Platelet Count 110 K/uL Mean Platelet Volume 9.0 fL Neutrophils (%) (Auto) 74.5 % Lymphocytes (%) (Auto) 10.7 % Monocytes (%) (Auto) 13.8 % Eosinophils (%) (Auto) 0.6 % Basophils (%) (Auto) 0.1 % Neutrophils # (Auto) 6.45 K/uL Lymphocytes # (Auto) 0.93 K/uL Monocytes # (Auto) 1.20 K/uL Eosinophils # (Auto) 0.05 K/uL Basophils # (Auto) 0.01 K/uL RDW Standard Deviation 46.2 fL RDW Coefficient of Variation 14.5 % Immature Granulocyte % (Auto) 0.3 % Immature Granulocyte # (Auto) 0.03 K/uL Sodium Level 137 mmol/L Potassium Level 3.7 mmol/L Chloride Level 103 mmol/L Carbon Dioxide Level 26 mmol/L Anion Gap 8.0 mmol/L Blood Urea Nitrogen 22 mg/dl Creatinine 2.80 mg/dl Est Creatinine Clear Calc Drug Dose 25.3 ml/min Estimated GFR () 27.8 Estimated GFR (Non- 24.0 BUN/Creatinine Ratio 7.7 Random Glucose 65 mg/dl Calcium Level 8.7 mg/dl Random Vancomycin Level 19.7 mcg/ml Test 12/09/16 06:51 12/09/16 07:45 12/09/16 11:23 Bedside Glucose 66 mg/dl 73 mg/dl 71 mg/dl Assessment and Plan (1) Bacteremia associated with intravascular line Likely source from dialysis catheter Cont cefepime and vanc at this time Dr Monk consulted Blood cx pos for enterobacter cloaca, repeat blood cx pending No leukocytosis or fevers noted Sister concerned with overall health, considering hospice, will need POA determination (2) Delirium Secondary to his bacteremia as stated above Continue antibiotics Palliative care consultation was placed for goals of care discussion (3) Coronary artery disease Status: Chronic Stable Held meds for parameters ASA given this AM (4) Obesity Status: Chronic (5) End-stage renal disease on hemodialysis Patient currently getting dialysis Ativan 1mg IV given this AM for agitation (6) PAD (peripheral artery disease) Status: Chronic 56-year-old male with end-stage renal disease, severe peripheral vascular disease, diabetes mellitus, now presents with Enterobacter bacteremia and encephalopathy. Most likely source would be dialysis catheter, and likely will need to be changed. Will change to IV ceftriaxone. To discuss with all involved.
[2016-12-09] MEDS ORDERED: HALOPERIDOL LACTATE 5 MG/ML 1 ML VIAL IV STA (14:43)
[2016-12-09] MEDS ORDERED: HALOPERIDOL LACTATE 5 MG/ML 1 ML VIAL IM STA (14:54)
--- NOTE | 2016-12-09 15:02 | DIAGNOSTIC IMAGING REPORT ---
KUB CLINICAL HISTORY: 56 years-old Male presenting with fecal impaction-? status. TECHNIQUE: Single supine view of the abdomen was obtained. COMPARISON: CT from 11/22/2016. FINDINGS: Image quality is limited by patient body habitus and positioning. This degrades sensitivity of the study. Atherosclerosis. Nonobstructive bowel gas pattern. Mild stool burden throughout normal caliber colon. Partially visualized implanted cardiac defibrillator leads. Degenerative changes of the spine most severe at L1-2. IMPRESSION: 1. Mild stool burden. No evidence of obstruction. Limited exam secondary to poor image quality. Electronically signed by: Brandyn Arzate M.D. 12/09/2016 3:01 PM Dictated Date/Time: 12/09/2016 2:59 PM
[2016-12-09] MEDS: OXYCODONE HCL IR 5 MG TAB (IMMEDIATE RELEASE) PO PRN (15:45)
--- NOTE | 2016-12-09 15:54 | DIAGNOSTIC IMAGING REPORT ---
ABDOMINAL ULTRASOUND, RIGHT UPPER QUADRANT HISTORY: Bacteremia. COMPARISON: CT of the abdomen and pelvis December 06, 2016. FINDINGS: This exam is compromised by suboptimal penetration. Liver is sonographically normal. There is no biliary ductal dilatation. Common bile duct measures 4 mm in caliber. Layering material within the gallbladder favors sludge. No shadowing stones are identified. There is no gallbladder wall thickening. The pancreas is obscured by overlying bowel gas. There is no right hydronephrosis. IMPRESSION: 1. Layering material within the gallbladder which favors sludge. Gallstones could appear similar but are considered less likely. No gallbladder wall thickening. 2. Study compromised by suboptimal penetration. Obscured pancreas. 3. Increased echogenicity of the right kidney which suggests medical renal disease. Electronically signed by: Garry Lyman M.D. 12/09/2016 3:53 PM Dictated Date/Time: 12/09/2016 3:50 PM
--- NOTE | 2016-12-09 16:04 | Palliative Care Consultation ---
Consultation Date of Consultation: Dec 09, 2016. Requesting Physician: Dr. Schrader Attending Physician: Dr. Palacios Reason for Consultation: Goals of care History of Present Illness This 56 year old male patient presented to the ED three days ago from the [facility] with altered mental status. He has a complicated and extensive medical history including ESRD on dialysis, recurrent infection, cardiomyopathy, CHF with EF 15-20%, uncontrolled DM, severe vascular disease, bilateral AKA, lives in snf. Other history below. HPI obtained mostly from record and his privately hired registered nurse patient advocate, Chelsey Pulliam, as patient is confused and agitated. He has been admitted in the hospital five times in the last 8 months, for various reasons related to his chronic diseases. Last amputation was in September 2016. His goal at that time was to do PT and get fitted for prosthetics. However, he did PT for a while then stopped due to loss of motivation (per his RN advocate). He has continued to physically decondition. Patient is now being treated for bacteremia, blood cultures growing gram negative rods, with cefepime and vancomycin. this infection is thought to be causing his delirium/altered mental status. Infectious disease is following who believes the infection source is likely the dialysis catheter, as it has been infected and replaced several times per Chelsey. Patient had fistula placed on 12/03 which is not matured yet. patient is also having this lower abdominal pain which our docs have attributed to constipation which was seen on CT of abd/pelvis. However, patient is very vague about this pain and just tells us that it's better. He does still c/o pain in lower back intermittently. Given patient's multiple comorbidities and poor functional status, his prognosis is unfortunately poor. Palliative care consulted to assist with goals of care. I met with the patient in room 203. He is yelling into hallway, "Mommy! Mommy, where are you? I just want to be with my family. Why are you doing this to me?" Patient did say he was in hospital but otherwise was speaking nonsense. He could offer ROS or any discussion about goals of care. I met with patient's sister Kriss Daniels in consultation room. We had a lengthy discussion about the patient, his conditions, and goals of care. Kriss believes that the patient is suffering and it's like "watching a slow car wreck. " She says her other brother, Edenilson, who lives in [place] agrees with her. However, their mother, Abby Daniels, does not think so. She wants the patient to continue with medical treatment no matter what. Kriss states that the patient and her mother have a very co-dependent relationship, and when her father , Abby "moved right on to [facility]." For now, the goal is to continue to treat the infection in hopes that patient's mental status will improve so that he may be a part of his own decision making. Past Medical/Surgical History Medical History: (1) Anemia Status: Chronic (2) Cardiomyopathy Status: Chronic (3) CHF (congestive heart failure) Permanent Comment: EF 20% Status: Chronic (4) Chronic back pain Status: Chronic (5) CKD (chronic kidney disease), stage III Status: Chronic (6) Coronary artery disease Status: Chronic (7) DM type 2 (diabetes mellitus, type 2) Status: Chronic (8) HTN (hypertension) Status: Chronic (9) Hyperlipidemia Status: Chronic (10) Obesity Status: Chronic (11) Osteomyelitis Permanent Comment: history of vertebral osteomyelitis and diskitis November 2015 Status: Resolved (12) PAD (peripheral artery disease) Status: Chronic (13) PVD (peripheral vascular disease) Status: Chronic Surgical Problems: (1) ICD (implantable cardioverter-defibrillator), single, in situ Permanent Comment: 10/31 Status: Chronic (2) S/P AKA (above knee amputation) Permanent Comment: bilateral LE Status: Chronic (3) S/P femoral-popliteal bypass surgery Permanent Comment: Right 05/20-, with angioplast 08/30, with stent 06/02 Status: Chronic (4) Toe amputation status Permanent Comment: Right 4 toe Social History Smoking Status: Former Smoker History of Alcohol Use: No Drug Use: none Marital Status: single Housing Status: snf Occupation Status: disabled Review of Systems unable to obtain Allergies Coded Allergies: Daptomycin (Verified Allergy, Severe, WATER ON LUNGS, 12/06/16) pt stated this allergy is "lethal" for him POLLEN (Verified Allergy, Unknown, 12/06/16) Ciprofloxacin (Verified Adverse Reaction, Intermediate, NAUSEA AND DIARHHEA, 12/06/16) Medications Current Inpatient Medications Medications (Trade) Dose Ordered Sig/Edin Route Start Time Stop Time Status Last Admin Dose Admin Acetaminophen (Tylenol Tab) 650 mg Q4H PRN PO 12/07/16 01:00 01/06/17 00:59 Polyethylene (Miralax Powder Packet) 17 gm BID PO 12/07/16 09:00 01/06/17 08:59 12/07/16 23:02 17 GM Ascorbic Acid (Vitamin C Tab) 500 mg MoWeFr@0900 PO 12/09/16 09:00 01/08/17 08:59 Aspirin (Ecotrin Tab) 81 mg DAILY PO 12/07/16 09:00 01/06/17 08:59 12/09/16 08:13 81 MG Atorvastatin Calcium (Lipitor Tab) 40 mg HS PO 12/07/16 21:00 01/06/17 20:59 12/07/16 23:03 40 MG Calcium Acetate (Phoslo Cap) 1,334 mg TIDM PO 12/07/16 08:00 01/06/17 07:59 12/08/16 16:54 1,334 MG Salmeterol Xinafoate/ Fluticasone (Advair Diskus 250/50 Inh) 1 puff BID INH 12/07/16 09:00 01/06/17 08:59 12/08/16 20:53 1 PUFF Gabapentin (Neurontin Cap) 300 mg Q8H PO 12/07/16 06:00 01/06/17 05:59 12/09/16 06:16 300 MG Albuterol/ Ipratropium (Combivent Respimat Inh) 1 puffs QID PRN INH 12/07/16 01:30 01/06/17 01:29 Lactobacillus Acidophilus (Floranex Tab) 4 tab TID PO 12/07/16 09:00 01/06/17 08:59 12/08/16 09:03 4 TAB Loratadine (Claritin Tab) 10 mg DAILY PO 12/07/16 09:00 01/06/17 08:59 Lorazepam (Ativan Tab) 0.5 mg TID PO 12/07/16 09:00 01/06/17 08:59 12/09/16 14:14 0.5 MG Magnesium Hydroxide (Milk Of Magnesia Susp) 30 ml UD PRN PO 12/07/16 01:30 01/06/17 01:29 Metoprolol Succinate (Toprol Xl Tab) 25 mg BID PO 12/07/16 09:00 01/06/17 08:59 Oxycodone HCl (Oxycontin Tab) 40 mg Q12 PO 12/07/16 09:00 12/21/16 08:59 12/09/16 08:10 40 MG Senna/Docusate Sodium (Senokot S Tab) 1 tab BID PO 12/07/16 09:00 01/06/17 08:59 12/08/16 09:01 1 TAB Sertraline HCl (Zoloft Tab) 50 mg QAM PO 12/07/16 09:00 01/06/17 08:59 12/08/16 09:01 50 MG Cholecalciferol (Vitamin D Tab) 5,000 inter.unit DAILY PO 12/07/16 09:00 01/06/17 08:59 Dexamethasone (Decadron Tab) 2 mg DAILY PO 12/07/16 09:00 01/06/17 08:59 12/08/16 09:02 2 MG Ferrous Sulfate (Feosol Tab) 325 mg QAM PO 12/07/16 09:00 01/06/17 08:59 12/09/16 08:13 325 MG Pantoprazole Sodium (Protonix Tab) 40 mg SuTuThSa@0900 PO 12/07/16 09:00 01/06/17 08:59 12/07/16 08:17 40 MG Oxycodone HCl (Roxicodone Immediate Rel Tab) 10 mg Q6 PRN PO 12/07/16 01:30 01/06/17 01:29 12/08/16 12:23 10 MG Miscellaneous (Iv Fluids Completed) 1 ea PRN PRN N/A 12/07/16 01:45 12/07/17 01:44 Insulin Glargine (Lantus Solostar Pen) 5 units HS SC 12/07/16 21:00 01/06/17 20:59 12/08/16 20:56 5 UNITS Morphine Sulfate (MoRPHine SULFATE INJ) 4 mg Q4H PRN IV 12/07/16 19:00 12/21/16 18:59 12/08/16 20:07 4 MG Vancomycin HCl (Consult) 1 ea UD PRN N/A 12/08/16 00:30 01/07/17 00:29 Docusate Sodium (coLACE CAP) 100 mg BID PO 12/08/16 21:00 01/07/17 20:59 Lactulose (Chronulac Syrup) 30 gm TID PO 12/08/16 14:00 01/07/17 13:59 Hydromorphone HCl (Dilaudid Inj) 2 mg Q3HWA PRN IV 12/08/16 09:45 12/22/16 09:44 12/09/16 14:16 2 MG Insulin Aspart (novoLOG ASPART) SLIDING SCALE If C... ACHS SC 12/09/16 11:00 01/08/17 10:59 Glucose (Glucose 40% Gel) 15-30 GRAMS 15 GRAMS... UD PRN PO 12/09/16 08:00 01/08/17 07:59 Glucose (Glucose Chew Tab) 4-8 Tablets 4 Tabl... UD PRN PO 12/09/16 08:00 01/08/17 07:59 Dextrose (Dextrose 50% 50ML Syringe) 25-50ML OF 50% DW IV FOR... UD PRN IV 12/09/16 08:00 01/08/17 07:59 Glucagon (Glucagon Inj) 1 mg UD PRN SQ 12/09/16 08:00 01/08/17 07:59 Albumin Human (Albumin 25%) 12.5 gm 0900,1100 IV 12/09/16 09:00 12/09/16 18:00 12/09/16 11:14 12.5 GM Vancomycin HCl 500 mg/Sodium Chloride 110 ml @ 55 mls/hr AFTER HEMODIALYSIS ONCE IV 12/09/16 14:00 12/09/16 15:59 Ceftriaxone Sodium 2000 mg/ Dextrose 70 ml @ 100 mls/hr Q24H IV 12/09/16 20:00 12/21/16 19:59 Physical Exam Date Time Temp Pulse Resp B/P (MAP) Pulse Ox O2 Delivery O2 Flow Rate FiO2 12/09/16 13:15 92 98/66 12/09/16 13:00 93 108/69 12/09/16 12:45 91 114/92 12/09/16 12:30 84 92/47 12/09/16 12:15 52 96/67 12/09/16 12:00 103 121/73 12/09/16 12:00 36.4 95 18 133/75 (94) 98 Room Air 12/09/16 11:45 51 102/59 12/09/16 11:30 104 96/61 12/09/16 11:15 90 133/75 12/09/16 11:00 97 89/65 12/09/16 10:45 88 105/58 12/09/16 10:30 91 118/99 12/09/16 10:15 97 90/62 12/09/16 09:54 88 110/60 12/09/16 09:45 36.9 90 84/63 (70) 12/09/16 08:00 36.7 91 16 107/68 (81) 100 Nasal Cannula 2.0 12/09/16 04:00 Nasal Cannula 2.0 12/09/16 03:57 95 18 130/82 (98) 92 12/09/16 00:00 Nasal Cannula 2.0 12/08/16 23:59 36.8 92 19 121/87 (98) 92 12/08/16 20:00 Nasal Cannula 2.0 12/08/16 17:54 37.0 96 95/60 (72) 12/08/16 16:00 Nasal Cannula 2.0 12/08/16 16:00 63 98/53 12/08/16 15:45 80 98/67 12/08/16 15:30 50 107/81 12/08/16 15:15 63 104/72 12/08/16 15:00 37.0 99 100/60 (73) 12/08/16 15:00 37.0 100 98/68 (78) 12/08/16 15:00 77 100/55 12/08/16 14:45 100 98/68 12/08/16 14:30 95 94/65 General Appearance: + mild distress (agitation), + pertinent finding ( chronically ill appearing, deconditioned) Eyes: + pertinent finding (glasses) ENT: hearing grossly normal Neck: supple, no JVD Cardiovascular: + pertinent finding (unable to listen to lungs due to patient refusal) Abdomen: + pertinent finding (unable to listen to heart due to patient refusal) Musculoskeletal: pertinent finding (unable to listen to abdomen due to patient refusal) Neurologic/Psychiatric: alert, + disoriented Skin: + pallor Laboratory Results Last 24 Hours Test 12/08/16 15:59 12/08/16 20:37 12/09/16 05:21 12/09/16 06:51 Bedside Glucose 122 mg/dl 108 mg/dl 66 mg/dl White Blood Count 8.67 K/uL Red Blood Count 3.62 M/uL Hemoglobin 10.3 g/dL Hematocrit 31.6 % Mean Corpuscular Volume 87.3 fL Mean Corpuscular Hemoglobin 28.5 pg Mean Corpuscular Hemoglobin Concent 32.6 g/dl Platelet Count 110 K/uL Mean Platelet Volume 9.0 fL Neutrophils (%) (Auto) 74.5 % Lymphocytes (%) (Auto) 10.7 % Monocytes (%) (Auto) 13.8 % Eosinophils (%) (Auto) 0.6 % Basophils (%) (Auto) 0.1 % Neutrophils # (Auto) 6.45 K/uL Lymphocytes # (Auto) 0.93 K/uL Monocytes # (Auto) 1.20 K/uL Eosinophils # (Auto) 0.05 K/uL Basophils # (Auto) 0.01 K/uL RDW Standard Deviation 46.2 fL RDW Coefficient of Variation 14.5 % Immature Granulocyte % (Auto) 0.3 % Immature Granulocyte # (Auto) 0.03 K/uL Sodium Level 137 mmol/L Potassium Level 3.7 mmol/L Chloride Level 103 mmol/L Carbon Dioxide Level 26 mmol/L Anion Gap 8.0 mmol/L Blood Urea Nitrogen 22 mg/dl Creatinine 2.80 mg/dl Est Creatinine Clear Calc Drug Dose 25.3 ml/min Estimated GFR () 27.8 Estimated GFR (Non- 24.0 BUN/Creatinine Ratio 7.7 Random Glucose 65 mg/dl Calcium Level 8.7 mg/dl Random Vancomycin Level 19.7 mcg/ml Test 12/09/16 07:45 12/09/16 11:23 Bedside Glucose 73 mg/dl 71 mg/dl Assessment & Plan Palliative Performance Scale: 30 % Problem list: AMS/Delirium- encephalopathy r/t infection GNR bacteremia Abdominal pain, lower Back pain ESRD on HD Chronic Butler catheter CHF- EF 15-20% Palliative care recommendations: -DNR- this is confirmed on patient's POLST which was done September 2016. -POLST form as follows: DNR, limited additional interventions, abx if life can be prolonged, and trial of artificial hydration/nutrition. -For now, the goal is to continue to treat the infection in hopes that patient' s mental status will improve so that he may be a part of his own decision making. -Suggest lorazepam 1mg IV Q4h prn agitation/anxiety. -Continue pain medication. Thank you kindly for this consult. I will follow
[2016-12-09] MEDS: LORAZEPAM 2 MG/ML 1 ML VIAL IV PRN ×2 (16:33→21:43)
--- NOTE | 2016-12-09 18:15 | GASTROINTESTINAL CONSULTATION ---
DATE OF CONSULTATION: 12/09/2016 REASON FOR EVALUATION: Lower abdominal pain. HISTORY OF PRESENT ILLNESS: The patient is a 56-year-old male admitted on 12/07/2016 with mental status changes. The patient has frequent mental status changes due to several severe underlying health problems. When he presented to the hospital, he was complaining of some lower abdominal pain and a CT scan of the abdomen showed a fecal impaction. The patient is receiving MiraLax and some enemas, but he continues to complain of some lower abdominal pain. The patient reports never having had a colonoscopy. PAST MEDICAL HISTORY: Significant and severe; he has cardiomyopathy with congestive heart failure, diabetes with severe peripheral vascular disease status post bilateral above the knee amputations and osteomyelitis. He has anemia of chronic disease. He has got chronic kidney disease stage III, on dialysis. He has coronary artery disease, hypertension, hyperlipidemia, obesity. Has also had a fem-pop bypass and a fistula placed in the past. MEDICATIONS: Per list. ALLERGIES: DAPTOMYCIN, POLLEN AND CIPROFLOXACIN. FAMILY HISTORY: Positive for mother with coronary disease. Father with afib and cancer, sister with hypertension. Father also has valvular heart disease. SOCIAL HISTORY: The patient is single. He is on disability, lives at [facility]. He smoked in the past, but not currently. REVIEW OF SYSTEMS: Unreliable as the patient is somewhat confused. PHYSICAL EXAMINATION: GENERAL: The patient is overweight. He has bilateral above the knee amputations which are quite high. SKIN: Shows multiple bruises, especially across the abdomen. He is currently on dialysis and has right-sided subclavian central line and where he is getting his dialysis from. He also has a fistula in the left upper arm. ABDOMEN: Shows some tenderness in left lower quadrant. RECTAL: Exam shows incontinent stool in the perianal area. Digital exam showed that the rectum is filled with large amount of soft stool. NEUROLOGIC: Shows him to be confused. An unreliable historian. LABORATORY: Shows a white count 12.26, hemoglobin 10.7, platelets 169,000. Liver profile is normal. BUN 63, creatinine 5.4, magnesium is 2.5. Calcium 9.4, albumin is 2.5. C-reactive protein 12.3. Blood cultures are positive for Enterobacter cloacae. IMPRESSION: The patient has lower abdominal pain probably from his fecal impaction. This may also be predisposing him to Enterobacter bacteremia. I plan on getting another plain film to see what the status of his fecal load is at this time and he may need to be digitally disimpacted. He is already on antibiotics for his gram negative bacteremia. Also plan on getting an ultrasound of his gallbladder to make sure he does not have a lot of stones in his gallbladder. I am not sure doing a colonoscopy would be very easy, especially trying to prep him at this point. Will continue to follow the patient during his hospital stay.
[2016-12-09] MEDS: ATORVASTATIN 40 MG TAB PO SCH ×2 (20:13→21:00)
[2016-12-09] MEDS: CEFTRIAXONE SOD INJ 2,000 MG in DEXTROSE 5% 50ML 50 ML IV SCH (20:13)
[2016-12-09] MEDS: INSULIN GLARGINE SOLOSTAR 100 UNITS/ML 3 ML PEN SC SCH (21:00)
[2016-12-10] VITALS (7 sets, daily range): BP systolic 93–135; BP diastolic 68–97; PULSE 95–131; TEMP 36.4–37.2; O2SAT 94–99
[2016-12-10] MEDS: HYDROmorphone INJ 2 MG/ML SYR/VIAL IV PRN (00:46)
[2016-12-10] MEDS: GABAPENTIN 300 MG CAP PO SCH ×3 (06:13→21:54)
[2016-12-10] MEDS: INSULIN ASPART 100 UNITS/ML 3 ML PEN SC SCH ×4 (07:00→21:52)
[2016-12-10] MEDS: CALCIUM ACETATE 667MG GELCAP PO SCH ×3 (07:30→16:45)
[2016-12-10 07:37] LABS: BASO % 0.1 %; BASO ABS # 0.01 K/uL (0-0.2); COMPLETE YES; EOS % 0.3 %; HEMATOCRIT 33.6 % (42-52); IG% 0.3 %; LYMPH % 12.5 %; LYMPH ABS # 1.24 K/uL (1.2-3.4); MEAN CELL VOLUME 87.7 fL (80-100); MEAN CORPUSCULAR HEMOGLOBIN 26.9 pg (25-34); MEAN CORPUSCULAR HGB CONC 30.7 g/dl (32-36); MEAN PLATELET VOLUME 9.1 fL (7.4-10.4); MONO % 8.9 %; NEUT % 77.9 %; PLATELET COUNT 137 K/uL (130-400); RED BLOOD COUNT 3.83 M/uL (4.7-6.1)
[2016-12-10] MEDS: LORAZEPAM 0.5 MG TAB PO SCH ×4 (08:19→22:00)
[2016-12-10] MEDS: OXYCODONE HCL 40 MG TABCR (OXYCONTIN) PO SCH ×2 (08:19→22:00)
[2016-12-10] MEDS: FLUTICASONE/SALMETEROL 250/50 (ADVAIR) 14 PUFF/1 INHALER INH SCH ×2 (08:19→21:52)
[2016-12-10] MEDS: LACTULOSE SYRUP 30 GM/45 ML UDP PO SCH ×4 (08:20→21:53)
[2016-12-10] MEDS: METOPROLOL SUCC 25MG EXT REL TAB PO SCH ×2 (08:20→21:54)
[2016-12-10] MEDS: LORATADINE 10 MG TAB PO SCH (08:20)
[2016-12-10] MEDS: PANTOprazole SOD 40 MG TAB PO SCH (08:21)
[2016-12-10] MEDS: DOCUSATE SODIUM 100 MG CAP PO SCH ×2 (08:21→21:53)
[2016-12-10] MEDS: CHOLECALCIFEROL 1000 INTER.UNIT TAB PO SCH (08:21)
[2016-12-10] MEDS: SERTRALINE HCL 50 MG TAB PO SCH (08:21)
[2016-12-10] MEDS: LACTOBACILLUS ACIDOPHILUS (FLORANEX) TAB PO SCH ×3 (08:22→21:53)
[2016-12-10] MEDS: POLYETHYLENE (MIRALAX) 17 GM PACK PO SCH ×2 (08:22→21:53)
[2016-12-10] MEDS: FERROUS SULFATE 325 MG TAB PO SCH (08:23)
[2016-12-10] MEDS: ASPIRIN 81 MG ECTAB PO SCH (08:23)
[2016-12-10] MEDS: DEXAMETHASONE 1 MG TAB PO SCH (08:23)
[2016-12-10] MEDS: DOCUSATE SODIUM/SENNA 50/8.6MG TAB PO SCH ×2 (08:24→21:54)
[2016-12-10 08:25] LABS: BUN/CREATININE RATIO 5.5 (10-20); CALCIUM 9.3 mg/dl (8.5-10.1); CREATININE 2.2 mg/dl (0.60-1.40); POTASSIUM 3.6 mmol/L (3.5-5.1)
[2016-12-10 08:31] LABS: ALB/GLOB RATIO 0.7 (0.9-2); THYROID STIMULATING HORMONE 3.3 uIu/ml (0.300-4.500)
[2016-12-10] MEDS: LORAZEPAM 2 MG/ML 1 ML VIAL IV PRN (08:44)
--- NOTE | 2016-12-10 09:55 | Neurology Consultation ---
Neurology Consultation Date of Consultation: Dec 10, 2016. Attending Physician: Andrei Palacios D.O. Primary Care Physician: Delmi Avila Reason for Consultation: "Worsening encephalopathy" History of Present Illness Source: hospital records The patient is a 56-year-old male resident of [facility] who presented to the emergency department on June 08 with alteration in mental status. He had been complaining of abdominal pain for the past week. Past medical history notable for chronic kidney disease with recent initiation of hemodialysis, anemia, congestive heart failure, cardiomyopathy, ICD placement, type 2 diabetes mellitus, coronary artery disease, peripheral vascular disease, bilateral [id number] amputations, and hypertension. He had a mild leukocytosis upon presentation and developed a mild fever the following day. His creatinine was markedly elevated upon presentation. LFTs and a recent ammonia level are within normal limits. A TSH and vitamin B-12 level are normal as well. Electrocardiogram revealed normal sinus rhythm, [address] of the head performed at the time of his admission was negative for hemorrhage or other acute process. There is evidence of extensive periventricular white matter disease probably related to chronic small vessel ischemic change. This patient's outpatient medication regimen includes gabapentin and lorazepam which are taken 3 times per day, OxyContin taken every 12 hours, sertraline taken every day as well as other medications including daily low-dose aspirin, Lipitor , dexamethasone, and insolent. Of note, the emergency department record indicates that the patient had recently refused dialysis treatment, prior to his hospitalization. The patient is not had a recurrence of fever. His mild leukocytosis has resolved. And his creatinine has modestly improved. Bacteremia related to Enterobacter has been identified on blood cultures. X-rays of the chest and a CT of the abdomen and pelvis suggested the possibility of pneumonia/ aspiration/atelectasis involving both lungs, fecal impaction, and gallbladder sludge. Market agitation/delirium has been observed by nursing staff during this patient 's hospitalization. His agitation response to lorazepam. He calls out frequently and has refused various treatments. He is also been observed to be belligerent at times and frequently swears. No seizure-like activity has been observed. No tremors, tonic stiffening, or posturing has been observed. Past Medical/Surgical History Medical Problems: (1) Altered mental status Status: Acute (2) Change in mental status Status: Acute (3) Diabetes mellitus out of control Status: Acute (4) Elevated troponin Status: Acute (5) Elevated troponin Status: Acute (6) Elevated troponin Status: Acute (7) End stage renal failure on dialysis Status: Acute (8) Failure of outpatient treatment Status: Acute (9) Hyperkalemia Status: Acute (10) Hypocalcemia Status: Acute (11) Hypoglycemia Status: Acute (12) Hypokalemia Status: Acute (13) Hyponatremia Status: Acute (14) Hypotension Status: Acute (15) Hypothermia Status: Acute (16) Leukocytosis Status: Acute (17) Mass of spine Status: Acute (18) Opiate overdose Status: Acute (19) Renal failure Status: Acute (20) Renal insufficiency Status: Acute (21) Sepsis Status: Acute (22) Ulcer of toe Status: Acute (23) Ulcers of both lower extremities Status: Acute (24) UTI (urinary tract infection) Status: Acute (25) UTI (urinary tract infection) Status: Acute (26) UTI (urinary tract infection) Status: Acute Family History Family history notable for coronary artery disease and hypertension Social History Smoking Status: Former smoker Alcohol Use: none Drug Use: none Marital Status: single Housing Status: residential Occupation Status: disabled Allergies Coded Allergies: Daptomycin (Verified Allergy, Severe, WATER ON LUNGS, 12/06/16) pt stated this allergy is "lethal" for him POLLEN (Verified Allergy, Unknown, 12/06/16) Ciprofloxacin (Verified Adverse Reaction, Intermediate, NAUSEA AND DIARHHEA, 12/06/16) Current Inpatient Medications Current Inpatient Medications Medications (Trade) Dose Ordered Sig/Edin Route Start Time Stop Time Status Last Admin Dose Admin Acetaminophen (Tylenol Tab) 650 mg Q4H PRN PO 12/07/16 01:00 01/06/17 00:59 Polyethylene (Miralax Powder Packet) 17 gm BID PO 12/07/16 09:00 01/06/17 08:59 12/07/16 23:02 17 GM Ascorbic Acid (Vitamin C Tab) 500 mg MoWeFr@0900 PO 12/09/16 09:00 01/08/17 08:59 Aspirin (Ecotrin Tab) 81 mg DAILY PO 12/07/16 09:00 01/06/17 08:59 12/10/16 08:23 81 MG Atorvastatin Calcium (Lipitor Tab) 40 mg HS PO 12/07/16 21:00 01/06/17 20:59 12/07/16 23:03 40 MG Calcium Acetate (Phoslo Cap) 1,334 mg TIDM PO 12/07/16 08:00 01/06/17 07:59 12/08/16 16:54 1,334 MG Salmeterol Xinafoate/ Fluticasone (Advair Diskus 250/50 Inh) 1 puff BID INH 12/07/16 09:00 01/06/17 08:59 12/10/16 08:19 1 PUFF Gabapentin (Neurontin Cap) 300 mg Q8H PO 12/07/16 06:00 01/06/17 05:59 12/10/16 06:13 300 MG Albuterol/ Ipratropium (Combivent Respimat Inh) 1 puffs QID PRN INH 12/07/16 01:30 01/06/17 01:29 Lactobacillus Acidophilus (Floranex Tab) 4 tab TID PO 12/07/16 09:00 01/06/17 08:59 12/08/16 09:03 4 TAB Loratadine (Claritin Tab) 10 mg DAILY PO 12/07/16 09:00 01/06/17 08:59 12/10/16 08:20 10 MG Lorazepam (Ativan Tab) 0.5 mg TID PO 12/07/16 09:00 01/06/17 08:59 12/09/16 20:05 0.5 MG Magnesium Hydroxide (Milk Of Magnesia Susp) 30 ml UD PRN PO 12/07/16 01:30 01/06/17 01:29 Metoprolol Succinate (Toprol Xl Tab) 25 mg BID PO 12/07/16 09:00 01/06/17 08:59 12/10/16 08:20 25 MG Oxycodone HCl (Oxycontin Tab) 40 mg Q12 PO 12/07/16 09:00 12/21/16 08:59 12/10/16 08:19 40 MG Senna/Docusate Sodium (Senokot S Tab) 1 tab BID PO 12/07/16 09:00 01/06/17 08:59 12/08/16 09:01 1 TAB Sertraline HCl (Zoloft Tab) 50 mg QAM PO 12/07/16 09:00 01/06/17 08:59 12/10/16 08:21 50 MG Cholecalciferol (Vitamin D Tab) 5,000 inter.unit DAILY PO 12/07/16 09:00 01/06/17 08:59 Dexamethasone (Decadron Tab) 2 mg DAILY PO 12/07/16 09:00 01/06/17 08:59 12/10/16 08:23 2 MG Ferrous Sulfate (Feosol Tab) 325 mg QAM PO 12/07/16 09:00 01/06/17 08:59 12/10/16 08:23 325 MG Pantoprazole Sodium (Protonix Tab) 40 mg SuTuThSa@0900 PO 12/07/16 09:00 01/06/17 08:59 12/10/16 08:21 40 MG Oxycodone HCl (Roxicodone Immediate Rel Tab) 10 mg Q6 PRN PO 12/07/16 01:30 01/06/17 01:29 12/09/16 15:45 10 MG Miscellaneous (Iv Fluids Completed) 1 ea PRN PRN N/A 12/07/16 01:45 12/07/17 01:44 Insulin Glargine (Lantus Solostar Pen) 5 units HS SC 12/07/16 21:00 01/06/17 20:59 12/08/16 20:56 5 UNITS Morphine Sulfate (MoRPHine SULFATE INJ) 4 mg Q4H PRN IV 12/07/16 19:00 12/21/16 18:59 12/08/16 20:07 4 MG Vancomycin HCl (Consult) 1 ea UD PRN N/A 12/08/16 00:30 01/07/17 00:29 Docusate Sodium (coLACE CAP) 100 mg BID PO 12/08/16 21:00 01/07/17 20:59 12/10/16 08:21 100 MG Lactulose (Chronulac Syrup) 30 gm TID PO 12/08/16 14:00 01/07/17 13:59 12/10/16 08:20 30 GM Hydromorphone HCl (Dilaudid Inj) 2 mg Q3HWA PRN IV 12/08/16 09:45 12/22/16 09:44 12/10/16 00:46 2 MG Insulin Aspart (novoLOG ASPART) SLIDING SCALE If C... ACHS SC 12/09/16 11:00 01/08/17 10:59 12/09/16 17:48 1 UNITS Glucose (Glucose 40% Gel) 15-30 GRAMS 15 GRAMS... UD PRN PO 12/09/16 08:00 01/08/17 07:59 Glucose (Glucose Chew Tab) 4-8 Tablets 4 Tabl... UD PRN PO 12/09/16 08:00 01/08/17 07:59 Dextrose (Dextrose 50% 50ML Syringe) 25-50ML OF 50% DW IV FOR... UD PRN IV 12/09/16 08:00 01/08/17 07:59 Glucagon (Glucagon Inj) 1 mg UD PRN SQ 12/09/16 08:00 01/08/17 07:59 Ceftriaxone Sodium 2000 mg/ Dextrose 70 ml @ 100 mls/hr Q24H IV 12/09/16 20:00 12/21/16 19:59 12/09/16 20:13 100 MLS/HR Lorazepam (Ativan Inj) 1 mg Q4H PRN IV 12/09/16 16:15 01/08/17 16:14 12/10/16 08:44 1 MG Review of Systems Review of systems cannot be reliably obtained from this patient due to his persistent encephalopathy Physical Exam Vital Signs (Past 24 Hrs): Date Time Temp Pulse Resp B/P (MAP) Pulse Ox O2 Delivery O2 Flow Rate FiO2 12/10/16 07:55 37.0 111 20 127/84 (98) 96 Room Air 12/10/16 04:00 97 Room Air 12/10/16 04:00 36.9 120 22 113/90 (98) 97 12/10/16 00:02 36.4 131 20 134/97 (109) 99 Room Air 12/10/16 00:00 Room Air 12/09/16 20:00 96 Room Air 12/09/16 20:00 36.4 129 24 128/81 (97) 96 Room Air 12/09/16 16:00 Nasal Cannula 2.0 12/09/16 15:50 102 22 108/64 (79) 98 Nasal Cannula 2.0 12/09/16 13:40 37.0 96 123/59 (80) 12/09/16 13:15 92 98/66 12/09/16 13:00 93 108/69 12/09/16 12:45 91 114/92 12/09/16 12:30 84 92/47 12/09/16 12:15 52 96/67 12/09/16 12:00 103 121/73 12/09/16 12:00 36.4 95 18 133/75 (94) 98 Room Air 12/09/16 11:45 51 102/59 12/09/16 11:30 104 96/61 12/09/16 11:15 90 133/75 12/09/16 11:00 97 89/65 12/09/16 10:45 88 105/58 12/09/16 10:30 91 118/99 12/09/16 10:15 97 90/62 12/09/16 09:54 88 110/60 12/09/16 09:45 36.9 90 84/63 (70) This patient's neurological examination is limited in the context of his agitated delirium that required treatment with lorazepam immediately prior to my assessment. The patient is a chronically ill-appearing elderly male. He was initially agitated and frequently calling out but subsequently became calm and lethargic after receiving lorazepam. He does not cooperate very well with testing of higher integrative functioning. He does not state his name. Attention span is poor. He is oriented to [facility] area speech pattern is fluent. Fund of knowledge cannot be reliably tested. Memory cannot be reliably tested. Visual camacho are grossly full to confrontation. Pupils are small bilaterally, about 1.5 mm, minimally reactive to light. There is no nystagmus. There is no gaze preference. Eye movements are grossly normal. Corneal reflexes intact bilaterally. There is no gross facial asymmetry or droop. Tongue and palate are midline. Hearing grossly intact. Shoulder shrug strength cannot be tested due to poor patient cooperation. Sensation cannot be tested. The patient does not cooperate for testing of dysdiadochokinesia or dysmetria. Deep tendon reflexes are diminished for the arms bilaterally. Patient has bilateral above- the-knee amputations precluding assessment of deep tendon reflexes of the lower limbs. Patient does not cooperate for otoscopic examination. No carotid bruits appreciated with auscultation. Gait and station cannot be tested. She does not cooperate for assessment of muscle strength. Timothy tone seems to be normal for both upper limbs. No tremors, fasciculations, or myoclonus observed. There is not appear to be significant atrophy of the upper limbs. Laboratory Results Past 24 Hours: 12/10/16 07:19 Red Blood Count 3.83, Mean Corpuscular Volume 87.7, Mean Corpuscular Hemoglobin 26.9, Mean Corpuscular Hemoglobin Concent 30.7, Mean Platelet Volume 9.1, Neutrophils (%) (Auto) 77.9, Lymphocytes (%) (Auto) 12.5, Monocytes (%) (Auto) 8.9, Eosinophils (%) (Auto) 0.3, Basophils (%) (Auto) 0.1, Neutrophils # (Auto) 7.71, Lymphocytes # (Auto) 1.24, Monocytes # (Auto) 0.88, Eosinophils # (Auto) 0.03, Basophils # (Auto) 0.01 12/10/16 07:19 Test 12/10/16 06:58 12/10/16 07:19 Bedside Glucose 93 mg/dl (70-99) White Blood Count 9.90 K/uL (4.8-10.8) Red Blood Count 3.83 M/uL (4.7-6.1) Hemoglobin 10.3 g/dL (14.0-18.0) Hematocrit 33.6 % (42-52) Mean Corpuscular Volume 87.7 fL (80-100) Mean Corpuscular Hemoglobin 26.9 pg (25-34) Mean Corpuscular Hemoglobin Concent 30.7 g/dl (32-36) Platelet Count 137 K/uL (130-400) Mean Platelet Volume 9.1 fL (7.4-10.4) Neutrophils (%) (Auto) 77.9 % Lymphocytes (%) (Auto) 12.5 % Monocytes (%) (Auto) 8.9 % Eosinophils (%) (Auto) 0.3 % Basophils (%) (Auto) 0.1 % Neutrophils # (Auto) 7.71 K/uL (1.4-6.5) Lymphocytes # (Auto) 1.24 K/uL (1.2-3.4) Monocytes # (Auto) 0.88 K/uL (0.11-0.59) Eosinophils # (Auto) 0.03 K/uL (0-0.5) Basophils # (Auto) 0.01 K/uL (0-0.2) RDW Standard Deviation 46.3 fL (36.4-46.3) RDW Coefficient of Variation 14.4 % (11.5-14.5) Immature Granulocyte % (Auto) 0.3 % Immature Granulocyte # (Auto) 0.03 K/uL (0.00-0.02) Anion Gap 13.0 mmol/L (3-11) Est Creatinine Clear Calc Drug Dose 32.2 ml/min Estimated GFR () 37.2 Estimated GFR (Non- 32.1 BUN/Creatinine Ratio 5.5 (10-20) Calcium Level 9.3 mg/dl (8.5-10.1) Total Bilirubin 0.4 mg/dl (0.2-1) Aspartate Amino Transf (AST/SGOT) 27 U/L (15-37) Alanine Aminotransferase (ALT/SGPT) 7 U/L (12-78) Alkaline Phosphatase 88 U/L (45-117) Ammonia 16.0 umol/L (11-32) Total Protein 6.7 gm/dl (6.4-8.2) Albumin 2.7 gm/dl (3.4-5.0) Globulin 4.0 gm/dl (2.5-4.0) Albumin/Globulin Ratio 0.7 (0.9-2) Vitamin B12 Level 647 pg/mL (211-911) Thyroid Stimulating Hormone (TSH) 3.300 uIu/ml (0.300-4.500) Imaging I reviewed the images and radiologist's interpretation of the CT of the head completed in the emergency department. Results are as described in history of present illness. In summary, no acute process. There is evidence of chronic periventricular white matter disease likely related to chronic small vessel ischemic change. No evidence of hydrocephalus. No evidence of large territory subacute infarct. Impression Agitated delirium. Likely multifactorial and related to acute on chronic renal failure, recent initiation of hemodialysis with incomplete compliance, Enterobacter bacteremia, possible aspiration, chronic fecal impaction. There does not appear to be any objective evidence of encephalitis or an unidentified acute or subacute stroke in this patient's case. An MRI may not be possible as this patient has an ICD. There is no indication that he may be having subclinical seizures. An element of baseline dementia on the basis of chronic cerebrovascular disease cannot be excluded. Plan I do not think additional neurological testing is necessary in this patient's case. However, if his mental status were to markedly deteriorate I would recommend obtaining a repeat CT of the head as an MRI may not be possible due to his ICD. Furthermore, if his mental status were to markedly deteriorate, I would also recommend obtaining a lumbar puncture and EEG. However, I do not really see a compelling reason to obtain an EEG at the current time as his history is not suggestive of subclinical status epilepticus or subclinical partial complex seizures. Case discussed with Dr. Palacios. Please contact me if I may be of further assistance.
--- NOTE | 2016-12-10 14:29 | Progress Note ---
Subjective Date of Service: Dec 10, 2016. Subjective Pt evaluation today including: conversation w/ patient, physical exam, chart review, lab review, review of studies, review of inpatient medication list Pt still confused More lethargic Alert and oriented x 1 only Problem List Medical Problems: (1) Altered mental status Status: Acute (2) Change in mental status Status: Acute (3) Diabetes mellitus out of control Status: Acute (4) Elevated troponin Status: Acute (5) Elevated troponin Status: Acute (6) Elevated troponin Status: Acute (7) End stage renal failure on dialysis Status: Acute (8) Failure of outpatient treatment Status: Acute (9) Hyperkalemia Status: Acute (10) Hypocalcemia Status: Acute (11) Hypoglycemia Status: Acute (12) Hypokalemia Status: Acute (13) Hyponatremia Status: Acute (14) Hypotension Status: Acute (15) Hypothermia Status: Acute (16) Leukocytosis Status: Acute (17) Mass of spine Status: Acute (18) Opiate overdose Status: Acute (19) Renal failure Status: Acute (20) Renal insufficiency Status: Acute (21) Sepsis Status: Acute (22) Ulcer of toe Status: Acute (23) Ulcers of both lower extremities Status: Acute (24) UTI (urinary tract infection) Status: Acute (25) UTI (urinary tract infection) Status: Acute (26) UTI (urinary tract infection) Status: Acute Review of Systems Constitutional: No fever, No chills, No sweats, No weight loss ENT: No hearing loss, No unusual epistaxis, No nasal symptoms, No sore throat Respiratory: No cough, No sputum, No wheezing, No shortness of breath Cardiac: No chest pain, No orthopnea, No PND, No edema Abdomen: No pain, No nausea, No vomiting, No diarrhea Musculoskeletal: No joint pain, No muscle pain, No swelling, No calf pain Male : No dysuria, No urinary frequency, No incontinence, No slowing stream Neurologic: No memory loss, No paralysis, No weakness, No numbness/tingling Psychiatric: No depression symptoms, No anhedonism, No anxiety, No insomnia Heme: No abnormal bleeding/bruising, No clotting problems Endo: No fatigue, No excessive thirst Skin: No rash, No itch, No color change Objective Vital Signs Date Time Temp Pulse Resp B/P (MAP) Pulse Ox O2 Delivery O2 Flow Rate FiO2 12/10/16 10:42 37.2 108 20 93/68 (76) 98 Room Air 12/10/16 07:55 37.0 111 20 127/84 (98) 96 Room Air 12/10/16 04:00 97 Room Air 12/10/16 04:00 36.9 120 22 113/90 (98) 97 12/10/16 00:02 36.4 131 20 134/97 (109) 99 Room Air 12/10/16 00:00 Room Air 12/09/16 20:00 96 Room Air 12/09/16 20:00 36.4 129 24 128/81 (97) 96 Room Air 12/09/16 16:00 Nasal Cannula 2.0 12/09/16 15:50 102 22 108/64 (79) 98 Nasal Cannula 2.0 Physical Exam General Appearance: WD/WN, + mild distress Eyes: normal inspection, PERRL, EOMI, sclerae normal Neck: supple, no adenopathy, thyroid normal, no JVD Respiratory/Chest: chest non-tender, no respiratory distress, no accessory muscle use, + decreased breath sounds Cardiovascular: no edema, no gallop, no JVD, + tachycardia Abdomen: normal bowel sounds, non tender, soft, no organomegaly Extremities: normal range of motion, non-tender, normal inspection, no pedal edema Neurologic/Psychiatric: no motor/sensory deficits, alert, + disoriented Laboratory Results Last 24 Hours Test 12/09/16 16:19 12/09/16 21:30 12/10/16 06:58 12/10/16 07:19 Bedside Glucose 173 mg/dl 71 mg/dl 93 mg/dl White Blood Count 9.90 K/uL Red Blood Count 3.83 M/uL Hemoglobin 10.3 g/dL Hematocrit 33.6 % Mean Corpuscular Volume 87.7 fL Mean Corpuscular Hemoglobin 26.9 pg Mean Corpuscular Hemoglobin Concent 30.7 g/dl Platelet Count 137 K/uL Mean Platelet Volume 9.1 fL Neutrophils (%) (Auto) 77.9 % Lymphocytes (%) (Auto) 12.5 % Monocytes (%) (Auto) 8.9 % Eosinophils (%) (Auto) 0.3 % Basophils (%) (Auto) 0.1 % Neutrophils # (Auto) 7.71 K/uL Lymphocytes # (Auto) 1.24 K/uL Monocytes # (Auto) 0.88 K/uL Eosinophils # (Auto) 0.03 K/uL Basophils # (Auto) 0.01 K/uL RDW Standard Deviation 46.3 fL RDW Coefficient of Variation 14.4 % Immature Granulocyte % (Auto) 0.3 % Immature Granulocyte # (Auto) 0.03 K/uL Sodium Level 136 mmol/L Potassium Level 3.6 mmol/L Chloride Level 99 mmol/L Carbon Dioxide Level 24 mmol/L Anion Gap 13.0 mmol/L Blood Urea Nitrogen 12 mg/dl Creatinine 2.20 mg/dl Est Creatinine Clear Calc Drug Dose 32.2 ml/min Estimated GFR () 37.2 Estimated GFR (Non- 32.1 BUN/Creatinine Ratio 5.5 Random Glucose 85 mg/dl Calcium Level 9.3 mg/dl Total Bilirubin 0.4 mg/dl Aspartate Amino Transf (AST/SGOT) 27 U/L Alanine Aminotransferase (ALT/SGPT) 7 U/L Alkaline Phosphatase 88 U/L Ammonia 16.0 umol/L Total Protein 6.7 gm/dl Albumin 2.7 gm/dl Globulin 4.0 gm/dl Albumin/Globulin Ratio 0.7 Vitamin B12 Level 647 pg/mL Thyroid Stimulating Hormone (TSH) 3.300 uIu/ml Test 12/10/16 11:43 Bedside Glucose 140 mg/dl Assessment and Plan (1) Bacteremia associated with intravascular line Assessment & Plan: Likely source from dialysis catheter Cont rocephin at this time Dr Monk consulted Blood cx pos for enterobacter cloaca, repeat blood cx pending No leukocytosis or fevers noted Sister concerned with overall health, considering hospice, will need POA determination (2) Delirium Assessment & Plan: Secondary to his bacteremia as stated above in addition to ESRD and cardiomyopathy Continue antibiotics Poor prognosis Palliative care consultation was placed for goals of care discussion (3) Coronary artery disease Assessment & Plan: Stable Held meds for parameters ASA given this AM (4) Obesity (5) End-stage renal disease on hemodialysis Assessment & Plan: Patient getting dialysis MWF Continue ativan 1 mg q 4hrs PRN anxiety (6) PAD (peripheral artery disease) Chronic systolic (reduced EF) CHF, stable Continued [facility] stay due to: multiple IV medications needed
--- NOTE | 2016-12-10 15:01 | Palliative Care Progress Note ---
Palliative Care Progress Note Date of Service Dec 10, 2016. Subjective Pt evaluation today including: conversation w/ family, chart review, conversation w/ corporate learning consultant (Dr. Palacios) Kriss Daniels, patient's sister, called me and set up family meeting for tomorrow at 1pm. I spoke again for 15 minutes on the phone with Chelsey, private RN corporate learning consultant for patient. She is going to talk to the patient's mother, Abby, this evening and prep her for tomorrow's meeting. Apparently Kriss and the patient's brother Antonio are on board for transitioning patient to comfort measures only, but they are concerned that patient's mother is not on board and is going to have a hard time with this. Per nursing notes, patient is refusing meals. Refusing meds except for OxyContin and Ativan. I find this quite interesting as this seems more behavioral than true encephalopathy/delirium. While I do think there is some underlying confusion, the fact that he knows which meds he wants to take and which ones he does not makes me believe he understands more than what it may seem. Kriss was hoping that patient's mentation would improve enough to be able to participate in his decision-making; but according to nursing notes, patient continues to just yell out and is not having meaningful conversation. I will see patient tomorrow.
--- NOTE | 2016-12-10 18:10 | GASTROENTEROLOGY PROGRESS NOTE ---
DATE: 12/10/2016 SUBJECTIVE: The patient is examined and chart reviewed for the first time. The patient is lethargic but received Ativan today. He was arousable and appears awake and oriented after a few minutes. His chart was reviewed. Recently he had an ultrasound which showed sludge but no obvious gallbladder wall thickening or ductal dilation and his LFTs from today are satisfactory. There is no fever or leukocytosis. The patient does not have abdominal pain, although does have pain in his extremities (bilateral AKA) as well as the left extensor surface of the hand is erythematous and edematous with an area on the knuckle that may represent ischemic versus infectious process. OBJECTIVE: VITAL SIGNS: Otherwise stable at the present time, blood pressure 113/78, respirations 18, heart rate is slightly tachycardiac at 106, afebrile 37.1. He is 97% on room air. ABDOMEN: Soft, obese but not focally tender with positive bowel sounds. EXTREMITIES: As described above. EYES: Sclerae are anicteric. IMPRESSION: I did review laboratory studies, imaging studies, and microbiology, which is showing enterobacter cloacae. The case discussed with Dr. Palacios. Given his multiple medical problems, and at times poor compliance with medications, the family does not wish to pursue aggressive management at this time. Certainly if fevers were to occur and a biliary source was suspected, repeat imaging may be necessary to see if leukocytosis or abnormal liver tests develop or clinically the patient shows evidence of cholangitis. All questions answered. At the present time, we will sign off for now. Please contact our service if you have any additional questions or concerns. Thank you for allowing us to participate in this patient's care.
--- NOTE | 2016-12-10 18:57 | Infectious Disease Progress Nt ---
Progress Note Date of Service Dec 10, 2016. Subjective Pt evaluation today including: conversation w/ patient, conversation w/ family , physical exam, chart review, lab review, review of studies, conversation w/ [facility] consultant, review of inpatient medication list Remains confused and agitated. Palliative care consultation reviewed. Tolerating Abx. All Other Systems: Reviewed and Negative Medications Current Inpatient Medications Medications (Trade) Dose Ordered Sig/Edin Route Start Time Stop Time Status Last Admin Dose Admin Acetaminophen (Tylenol Tab) 650 mg Q4H PRN PO 12/07/16 01:00 01/06/17 00:59 Polyethylene (Miralax Powder Packet) 17 gm BID PO 12/07/16 09:00 01/06/17 08:59 12/07/16 23:02 17 GM Ascorbic Acid (Vitamin C Tab) 500 mg MoWeFr@0900 PO 12/09/16 09:00 01/08/17 08:59 Aspirin (Ecotrin Tab) 81 mg DAILY PO 12/07/16 09:00 01/06/17 08:59 12/10/16 08:23 81 MG Atorvastatin Calcium (Lipitor Tab) 40 mg HS PO 12/07/16 21:00 01/06/17 20:59 12/07/16 23:03 40 MG Calcium Acetate (Phoslo Cap) 1,334 mg TIDM PO 12/07/16 08:00 01/06/17 07:59 12/08/16 16:54 1,334 MG Salmeterol Xinafoate/ Fluticasone (Advair Diskus 250/50 Inh) 1 puff BID INH 12/07/16 09:00 01/06/17 08:59 12/10/16 08:19 1 PUFF Gabapentin (Neurontin Cap) 300 mg Q8H PO 12/07/16 06:00 01/06/17 05:59 12/10/16 06:13 300 MG Albuterol/ Ipratropium (Combivent Respimat Inh) 1 puffs QID PRN INH 12/07/16 01:30 01/06/17 01:29 Lactobacillus Acidophilus (Floranex Tab) 4 tab TID PO 12/07/16 09:00 01/06/17 08:59 12/08/16 09:03 4 TAB Loratadine (Claritin Tab) 10 mg DAILY PO 12/07/16 09:00 01/06/17 08:59 12/10/16 08:20 10 MG Lorazepam (Ativan Tab) 0.5 mg TID PO 12/07/16 09:00 01/06/17 08:59 12/09/16 20:05 0.5 MG Magnesium Hydroxide (Milk Of Magnesia Susp) 30 ml UD PRN PO 12/07/16 01:30 01/06/17 01:29 Metoprolol Succinate (Toprol Xl Tab) 25 mg BID PO 12/07/16 09:00 01/06/17 08:59 12/10/16 08:20 25 MG Oxycodone HCl (Oxycontin Tab) 40 mg Q12 PO 12/07/16 09:00 12/21/16 08:59 12/10/16 08:19 40 MG Senna/Docusate Sodium (Senokot S Tab) 1 tab BID PO 12/07/16 09:00 01/06/17 08:59 12/08/16 09:01 1 TAB Sertraline HCl (Zoloft Tab) 50 mg QAM PO 12/07/16 09:00 01/06/17 08:59 12/10/16 08:21 50 MG Cholecalciferol (Vitamin D Tab) 5,000 inter.unit DAILY PO 12/07/16 09:00 01/06/17 08:59 Dexamethasone (Decadron Tab) 2 mg DAILY PO 12/07/16 09:00 01/06/17 08:59 12/10/16 08:23 2 MG Ferrous Sulfate (Feosol Tab) 325 mg QAM PO 12/07/16 09:00 01/06/17 08:59 12/10/16 08:23 325 MG Pantoprazole Sodium (Protonix Tab) 40 mg SuTuThSa@0900 PO 12/07/16 09:00 01/06/17 08:59 12/10/16 08:21 40 MG Oxycodone HCl (Roxicodone Immediate Rel Tab) 10 mg Q6 PRN PO 12/07/16 01:30 01/06/17 01:29 12/09/16 15:45 10 MG Miscellaneous (Iv Fluids Completed) 1 ea PRN PRN N/A 12/07/16 01:45 12/07/17 01:44 Insulin Glargine (Lantus Solostar Pen) 5 units HS SC 12/07/16 21:00 01/06/17 20:59 12/08/16 20:56 5 UNITS Morphine Sulfate (MoRPHine SULFATE INJ) 4 mg Q4H PRN IV 12/07/16 19:00 12/21/16 18:59 12/08/16 20:07 4 MG Vancomycin HCl (Consult) 1 ea UD PRN N/A 12/08/16 00:30 01/07/17 00:29 Docusate Sodium (coLACE CAP) 100 mg BID PO 12/08/16 21:00 01/07/17 20:59 12/10/16 08:21 100 MG Lactulose (Chronulac Syrup) 30 gm TID PO 12/08/16 14:00 01/07/17 13:59 Hydromorphone HCl (Dilaudid Inj) 2 mg Q3HWA PRN IV 12/08/16 09:45 12/22/16 09:44 12/10/16 00:46 2 MG Insulin Aspart (novoLOG ASPART) SLIDING SCALE If C... ACHS SC 12/09/16 11:00 01/08/17 10:59 12/09/16 17:48 1 UNITS Glucose (Glucose 40% Gel) 15-30 GRAMS 15 GRAMS... UD PRN PO 12/09/16 08:00 01/08/17 07:59 Glucose (Glucose Chew Tab) 4-8 Tablets 4 Tabl... UD PRN PO 12/09/16 08:00 01/08/17 07:59 Dextrose (Dextrose 50% 50ML Syringe) 25-50ML OF 50% DW IV FOR... UD PRN IV 12/09/16 08:00 01/08/17 07:59 Glucagon (Glucagon Inj) 1 mg UD PRN SQ 12/09/16 08:00 01/08/17 07:59 Ceftriaxone Sodium 2000 mg/ Dextrose 70 ml @ 100 mls/hr Q24H IV 12/09/16 20:00 12/21/16 19:59 12/09/16 20:13 100 MLS/HR Lorazepam (Ativan Inj) 1 mg Q4H PRN IV 12/09/16 16:15 01/08/17 16:14 12/10/16 08:44 1 MG Objective Vital Signs Date Time Temp Pulse Resp B/P (MAP) Pulse Ox O2 Delivery O2 Flow Rate FiO2 12/10/16 15:43 37.1 106 18 113/78 (90) 97 Room Air 12/10/16 10:42 37.2 108 20 93/68 (76) 98 Room Air 12/10/16 07:55 37.0 111 20 127/84 (98) 96 Room Air 12/10/16 04:00 97 Room Air 12/10/16 04:00 36.9 120 22 113/90 (98) 97 12/10/16 00:02 36.4 131 20 134/97 (109) 99 Room Air 12/10/16 00:00 Room Air 12/09/16 20:00 96 Room Air 12/09/16 20:00 36.4 129 24 128/81 (97) 96 Room Air Physical Exam General Appearance: + mild distress, + pertinent finding (chronically ill- appearing) Eyes: normal inspection, sclerae normal ENT: normal ENT inspection, pharynx normal Neck: supple, trachea midline Respiratory/Chest: lungs clear, normal breath sounds, no respiratory distress Cardiovascular: regular rate, rhythm, no gallop, no murmur Abdomen: normal bowel sounds, non tender, soft, no organomegaly Extremities: + slow capillary refill, + pertinent finding (Bilat amputations LEs.) Neurologic/Psychiatric: alert, + disoriented Skin: normal color, no rash Lymphatic: no adenopathy Laboratory Results RUN DATE: 12/09/16 [facility] LAB PAGE 1 RUN TIME: 806 Specimen Inquiry PATIENT: YOUNG HINKLE LOC: [facility] # : [id number] AGE/SX: 56/M ROOM: [facility] REG : 12/07/[address]: Fausto Kohli D.O. : 1960 BED: 1 DIS : STATUS: ADM IN TLOC: SPEC #: [id number] CLAUDIA: 12/06/16 STATUS: COMP REQ #: [id number] RECD: 12/06/[address]: Raheel Givens M.D. SOURCE: BLOOD ENTR: 12/06/[address]: Delmi Avila [facility]: ORDERED: BLOOD CULTURE Procedure Result Verified Site BLD CULT Final 12/09/16-0807 Organism 1 ENTEROBACTER CLOACAE SENS SENSITIVITY TO FOLLOW Phoned results to MILEY KEY on 12/07/16 at 1224 by Cuca Michele. Results were verbalized back to REYES. 1. ENTEROBACTER CLOACAE Target Route Dose RX AB Cost M.I.C. IQ ------ ----- ------ -- ------ -------- - ------ TRIMET/SULFA R >2/38 CEFOTAXIME S <=2 CEFTRIAXONE S <=1 CEFEPIME S <=4 IMIPENEM S <=1 GENTAMICIN S <=4 TOBRAMYCIN S <=4 AMIKACIN S <=16 CIPROFLOXACIN S <=1 LEVOFLOXACIN S <=2 ERTAPENEM S <=1 PIP/TAZO S <=16 S = SENSITIVE I = INTERMEDIATE R = RESISTANT END OF REPORT Last 24 Hours Test 12/09/16 21:30 12/10/16 06:58 12/10/16 07:19 12/10/16 11:43 Bedside Glucose 71 mg/dl 93 mg/dl 140 mg/dl White Blood Count 9.90 K/uL Red Blood Count 3.83 M/uL Hemoglobin 10.3 g/dL Hematocrit 33.6 % Mean Corpuscular Volume 87.7 fL Mean Corpuscular Hemoglobin 26.9 pg Mean Corpuscular Hemoglobin Concent 30.7 g/dl Platelet Count 137 K/uL Mean Platelet Volume 9.1 fL Neutrophils (%) (Auto) 77.9 % Lymphocytes (%) (Auto) 12.5 % Monocytes (%) (Auto) 8.9 % Eosinophils (%) (Auto) 0.3 % Basophils (%) (Auto) 0.1 % Neutrophils # (Auto) 7.71 K/uL Lymphocytes # (Auto) 1.24 K/uL Monocytes # (Auto) 0.88 K/uL Eosinophils # (Auto) 0.03 K/uL Basophils # (Auto) 0.01 K/uL RDW Standard Deviation 46.3 fL RDW Coefficient of Variation 14.4 % Immature Granulocyte % (Auto) 0.3 % Immature Granulocyte # (Auto) 0.03 K/uL Sodium Level 136 mmol/L Potassium Level 3.6 mmol/L Chloride Level 99 mmol/L Carbon Dioxide Level 24 mmol/L Anion Gap 13.0 mmol/L Blood Urea Nitrogen 12 mg/dl Creatinine 2.20 mg/dl Est Creatinine Clear Calc Drug Dose 32.2 ml/min Estimated GFR () 37.2 Estimated GFR (Non- 32.1 BUN/Creatinine Ratio 5.5 Random Glucose 85 mg/dl Calcium Level 9.3 mg/dl Total Bilirubin 0.4 mg/dl Aspartate Amino Transf (AST/SGOT) 27 U/L Alanine Aminotransferase (ALT/SGPT) 7 U/L Alkaline Phosphatase 88 U/L Ammonia 16.0 umol/L Total Protein 6.7 gm/dl Albumin 2.7 gm/dl Globulin 4.0 gm/dl Albumin/Globulin Ratio 0.7 Vitamin B12 Level 647 pg/mL Thyroid Stimulating Hormone (TSH) 3.300 uIu/ml Test 12/10/16 16:32 Bedside Glucose 146 mg/dl Assessment and Plan (1) Bacteremia associated with intravascular line Likely source from dialysis catheter Cont rocephin at this time Dr Monk consulted Blood cx pos for enterobacter cloaca, repeat blood cx pending No leukocytosis or fevers noted Sister concerned with overall health, considering hospice, will need POA determination (2) Delirium Secondary to his bacteremia as stated above in addition to ESRD and cardiomyopathy Continue antibiotics Poor prognosis Palliative care consultation was placed for goals of care discussion (3) Coronary artery disease Status: Chronic Stable Held meds for parameters ASA given this AM (4) Obesity Status: Chronic (5) End-stage renal disease on hemodialysis Patient getting dialysis MWF Continue ativan 1 mg q 4hrs PRN anxiety (6) PAD (peripheral artery disease) Status: Chronic 56-year-old male with end-stage renal disease, severe peripheral vascular disease, diabetes mellitus, chronic,now presents with Enterobacter bacteremia and encephalopathy. Most likely source would be dialysis catheter, and likely will need to be changed. Right hand/wrist infection also possible source. Have changed to IV ceftriaxone. To discuss with all involved.
[2016-12-10] MEDS: CEFTRIAXONE SOD INJ 2,000 MG in DEXTROSE 5% 50ML 50 ML IV SCH (21:36)
[2016-12-10] MEDS: INSULIN GLARGINE SOLOSTAR 100 UNITS/ML 3 ML PEN SC SCH (21:51)
[2016-12-10] MEDS: ATORVASTATIN 40 MG TAB PO SCH (21:53)
[2016-12-11] VITALS (23 sets, daily range): BP systolic 88–137; BP diastolic 43–95; PULSE 49–110; TEMP 36.6–36.9; O2SAT 93–100
[2016-12-11] MEDS: OXYCODONE HCL 40 MG TABCR (OXYCONTIN) PO SCH ×3 (00:47→21:00)
[2016-12-11] MEDS: GABAPENTIN 300 MG CAP PO SCH ×3 (06:00→22:00)
[2016-12-11 06:05] LABS: BASO % 0.2 %; BASO ABS # 0.02 K/uL (0-0.2); COMPLETE YES; EOS % 0.4 %; HEMATOCRIT 31.9 % (42-52); IG% 0.4 %; LYMPH % 16.5 %; MEAN CELL VOLUME 88.9 fL (80-100); MEAN CORPUSCULAR HEMOGLOBIN 27.9 pg (25-34); MEAN CORPUSCULAR HGB CONC 31.3 g/dl (32-36); MEAN PLATELET VOLUME 9.7 fL (7.4-10.4); MONO % 12.7 %; NEUT % 69.8 %; PLATELET COUNT 158 K/uL (130-400); RED BLOOD COUNT 3.59 M/uL (4.7-6.1); WHITE BLOOD COUNT 9.67 K/uL (4.8-10.8)
[2016-12-11 06:35] LABS: BUN/CREATININE RATIO 5.7 (10-20); CALCIUM 9.1 mg/dl (8.5-10.1); CREATININE 3.7 mg/dl (0.60-1.40); POTASSIUM 3.9 mmol/L (3.5-5.1)
[2016-12-11 06:37] LABS: ALB/GLOB RATIO 0.6 (0.9-2)
[2016-12-11] MEDS: INSULIN ASPART 100 UNITS/ML 3 ML PEN SC SCH ×4 (07:00→21:00)
[2016-12-11] MEDS: CALCIUM ACETATE 667MG GELCAP PO SCH ×3 (07:30→19:30)
[2016-12-11] MEDS ORDERED: HEPARIN SOD (PORCINE) 1000 UNIT/ML 10 ML VIAL IV SCH (08:00)
[2016-12-11] MEDS ORDERED: EPOETIN ALFA 10,000 UNITS/ML VIAL IV. ONE (08:00)
[2016-12-11] MEDS ORDERED: EPOETIN ALFA INJ 12,000 UNITS in SYRINGE 0 ML IV. SCH (08:00)
[2016-12-11] MEDS: ASPIRIN 81 MG ECTAB PO SCH (09:00)
[2016-12-11] MEDS: CHOLECALCIFEROL 1000 INTER.UNIT TAB PO SCH (09:00)
[2016-12-11] MEDS: LACTOBACILLUS ACIDOPHILUS (FLORANEX) TAB PO SCH ×3 (09:00→21:00)
[2016-12-11] MEDS: LORAZEPAM 0.5 MG TAB PO SCH ×3 (09:00→21:00)
[2016-12-11] MEDS: FLUTICASONE/SALMETEROL 250/50 (ADVAIR) 14 PUFF/1 INHALER INH SCH ×2 (09:00→21:00)
[2016-12-11] MEDS: SERTRALINE HCL 50 MG TAB PO SCH ×2 (09:00→13:02)
[2016-12-11] MEDS: POLYETHYLENE (MIRALAX) 17 GM PACK PO SCH ×2 (09:00→21:00)
[2016-12-11] MEDS: METOPROLOL SUCC 25MG EXT REL TAB PO SCH ×2 (09:00→21:00)
[2016-12-11] MEDS: LORATADINE 10 MG TAB PO SCH (09:00)
[2016-12-11] MEDS: ASCORBIC ACID 500 MG TAB PO SCH (09:00)
[2016-12-11] MEDS: DEXAMETHASONE 1 MG TAB PO SCH (09:00)
[2016-12-11] MEDS: DOCUSATE SODIUM/SENNA 50/8.6MG TAB PO SCH ×2 (09:00→21:00)
[2016-12-11] MEDS: LACTULOSE SYRUP 30 GM/45 ML UDP PO SCH ×3 (09:00→21:00)
[2016-12-11] MEDS: FERROUS SULFATE 325 MG TAB PO SCH (09:00)
[2016-12-11] MEDS: DOCUSATE SODIUM 100 MG CAP PO SCH ×2 (09:00→21:00)
--- NOTE | 2016-12-11 12:30 | Pharmacy Progress Note ---
Pharmacy Abx Dose Short Note Date of Service Dec 11, 2016. Assessment & Plan Assessment 56 year old male receiving vancomycin IV for chronic suppressive therapy of discitis / osteomyelitis as well as ceftriaxone IV for treatment of enterobacter cloacae bacteremia, in the setting of possible HD cath infection, possible aspiration pnx and possible UTI Plan Vancomycin * Random level of 20.9 mcg/mL drawn with AM labs today is only slightly supratherapeutic * Vancomycin is being dosed empirically based upon random levels * Patient is scheduled to have HD treatment today. Would expect HD to remove vancomycin. Will give 500mg IV x 1 in minimum volume AFTER HD * Will order random level with AM labs on Fridays as this is when he is due for next HD treatment * The current plan is to redose vanco when level 15-20 or anticipated to be between 15-20 after a HD session * Vancomycin is being used for chronic suppressive therapy in this patient Pharmacy will continue to follow and will adjust dose/frequency as necessary. Thank you.
--- NOTE | 2016-12-11 12:38 | Clinical Documentation Query ---
CLINICAL DOCUMENTATION QUERY Encephalopathy was well documented on admission. Since that time its' documentation has fallen off the record. Currently the patient's altered mental status is being linked to metabolic causes (bacteremia, cardiomyopathy, and ESRD). In your clinical opinion is this patient being managed for: ( ) Metabolic encephalopathy due to bacteremia, ESRD, and cardiomyopathy. ( ) Encephalopathy ruled out Please clarify and document your clinical opinion in the progress notes and discharge summary. Terms such as "probable", "suspected", "likely", "questionable", "possible", or "still to be ruled out" are acceptable. IF IN AGREEMENT, YOU MUST DOCUMENT ABOVE DIAGNOSTIC STATEMENT IN DAILY PROGRESS NOTES AND DISCHARGE SUMMARY. This document is not part of the patient's record. Metabolic encephalopathy is always due to an underlying cause. There are many causes of metabolic encephalopathy, such as brain tumors, brain metastasis, cerebral infarction or hemorrhage, cerebral ischemia, uremia, poisoning, systemic infection, etc. Metabolic encephalopathy is also a common finding in 12% to 33% of patients suffering from multiple organ failure. The development of meta-bolic encephalopathy may be the first manifestation of a critical systemic illness and may be caused by various reasons--one of the most important being sepsis. Copyright (2017), [employer] [facility] [employer] ("[employer]"), [place], [place]. Reproduced with permission. No portion of this publication may be copied without the express, written consent of [employer]. Thank You, Thomas Hedrick RN [phone]
--- NOTE | 2016-12-11 15:07 | Palliative Care Progress Note ---
Palliative Care Progress Note Date of Service Dec 11, 2016. Subjective Pt evaluation today including: conversation w/ patient, conversation w/ family , physical exam, chart review, conversation w/ integrity consultant, review of inpatient medication list Pain: 0/10 PO Intake: did start eating Patient is back to his baseline mental status today. He is calm and mostly cooperative. He would not take his medications other than the OxyContin. Patient did not know the date but his RN advocate/cased general farm manager, Chelsey, said he doesn't know the date normally. Patient was able to answer all questions about goals of care appropriately. Of note, Chelsey informed me that patient is always slow to answer questions and he understands much better with clear, concise, direct questions/statements in one sentence. Patient could not recall really anything from the last couple days and said, "I can't believe I was acting that way," and was very apologetic. Met with patient and had a lengthy conversation. Patient feels that he is in a "rut" of depression. He could not point out to me exactly what has him depressed but he stated, "I worry more about my family than myself." Patient knows that he is permanently living in custodial and said,"I think it's obvious I won't be going anywhere else." He wishes to continue dialysis. Said that he is going to start eating and taking his pills again, as he wants to get out of his rut. I discovered from Chelsey that the nurse practitioner at the custodial had just started Alvarado on Zoloft the day before he was admitted, and referred him to some outpatient psych therapy. Patient has no pain or discomfort. Still reports being a little foggy-headed. He allowed me to examine him today. 1400: Family meeting held about all of the above with patient, mother- Abby, sister- Kriss. See plan below. Review of Systems Constitutional: + weakness Respiratory: No cough, No shortness of breath Cardiac: No chest pain Abdomen: + constipation, No pain, No nausea, No vomiting Male : No problem reported Psychiatric: + depression symptoms, No anxiety Objective Vital Signs Date Time Temp Pulse Resp B/P (MAP) Pulse Ox O2 Delivery O2 Flow Rate FiO2 12/11/16 07:57 36.8 82 18 88/58 (68) 94 Room Air 12/11/16 04:10 93 Room Air 12/11/16 04:00 36.6 90 20 104/68 (80) 94 Room Air 12/11/16 00:15 95 Room Air 12/11/16 00:00 36.7 86 21 89/60 (70) 95 Room Air 12/10/16 20:30 94 Room Air 12/10/16 19:57 36.7 95 20 135/72 (93) 94 Room Air 12/10/16 15:43 37.1 106 18 113/78 (90) 97 Room Air Physical Exam General Appearance: no apparent distress, + pertinent finding (chronically ill appearing and deconditioned) ENT: hearing grossly normal Neck: supple, no JVD Respiratory/Chest: no respiratory distress, no accessory muscle use, + decreased breath sounds Cardiovascular: regular rate, rhythm, + normal peripheral pulses (radials. has left upper arm immature fistula) Abdomen: normal bowel sounds, non tender, soft Neurologic/Psychiatric: alert, + pertinent finding (oriented to person, place and somewhat event. Is slow to answer at baseline. does not know the date at baseline) Skin: + pertinent finding (left hand is swollen, red, and warm. Has scabbed area on left first finger metacarpophalangeal knuckle) Laboratory Results Last 24 Hours Test 12/10/16 11:43 12/10/16 16:32 12/10/16 20:16 12/11/16 05:39 Bedside Glucose 140 mg/dl 146 mg/dl 179 mg/dl White Blood Count 9.67 K/uL Red Blood Count 3.59 M/uL Hemoglobin 10.0 g/dL Hematocrit 31.9 % Mean Corpuscular Volume 88.9 fL Mean Corpuscular Hemoglobin 27.9 pg Mean Corpuscular Hemoglobin Concent 31.3 g/dl Platelet Count 158 K/uL Mean Platelet Volume 9.7 fL Neutrophils (%) (Auto) 69.8 % Lymphocytes (%) (Auto) 16.5 % Monocytes (%) (Auto) 12.7 % Eosinophils (%) (Auto) 0.4 % Basophils (%) (Auto) 0.2 % Neutrophils # (Auto) 6.74 K/uL Lymphocytes # (Auto) 1.60 K/uL Monocytes # (Auto) 1.23 K/uL Eosinophils # (Auto) 0.04 K/uL Basophils # (Auto) 0.02 K/uL RDW Standard Deviation 47.6 fL RDW Coefficient of Variation 14.6 % Immature Granulocyte % (Auto) 0.4 % Immature Granulocyte # (Auto) 0.04 K/uL Sodium Level 137 mmol/L Potassium Level 3.9 mmol/L Chloride Level 100 mmol/L Carbon Dioxide Level 26 mmol/L Anion Gap 11.0 mmol/L Blood Urea Nitrogen 21 mg/dl Creatinine 3.70 mg/dl Est Creatinine Clear Calc Drug Dose 19.2 ml/min Estimated GFR () 19.8 Estimated GFR (Non- 17.1 BUN/Creatinine Ratio 5.7 Random Glucose 81 mg/dl Calcium Level 9.1 mg/dl Total Bilirubin 0.3 mg/dl Aspartate Amino Transf (AST/SGOT) 15 U/L Alanine Aminotransferase (ALT/SGPT) 7 U/L Alkaline Phosphatase 88 U/L Total Protein 6.8 gm/dl Albumin 2.6 gm/dl Globulin 4.2 gm/dl Albumin/Globulin Ratio 0.6 Random Vancomycin Level 20.9 mcg/ml Test 12/11/16 06:48 Bedside Glucose 80 mg/dl Assessment and Plan Problem list: AMS/Delirium- encephalopathy r/t infection- improved. patient back to baseline today GNR bacteremia- repeat blood cultures negative Abdominal pain, lower Back pain ESRD on HD Chronic Butler catheter CHF- EF 15-20% Depression Left hand with edema, erythema and scab/wound on first finger knuckle Goals of care (Z51.5) Palliative care recommendations: -Patient's goal is to get well enough to go back to the [facility] and have PT/ OT. -Wants to continue dialysis. -Confirmed DNR status and wants to avoid ICU/aggressive measures if his condition worsens. -Patient now is eating again and taking his medications. -We discussed his depression. Patient wants to feel better and wants to take his Zoloft. He has already been referred to psych at the custodial and I would certainly be sure he follows up with this once discharged. -Discussed patient's wishes if this should happen again and he does not recover. Patient stated he would want to peacefully. This was discussed during family meeting. Patient novelties sales representative to do advance directive. patient stated he would want his mother, Abby Daniels, to make decisions for him if he's unable. -Planning to go back to [facility] when medically stable. -Continue other medications as ordered. Pain is well controlled. -Left appears to be infected. I worry about osteomyelitis with patient's diabetes and ESRD. Will defer to primary medical, but may want to x-ray hand vs. consult surgery. Thank you again for allowing me to participate in the care of this patient. Please contact me with any further palliative care needs. Palliative Performance Scale: 40 % Continued [facility] stay due to: multiple IV medications needed, other (ongoing acute care) Discharge planning: assisted facility
[2016-12-11] MEDS ORDERED: VANCOMYCIN INJ 500 MG in SODIUM CHLORIDE 0.9% 100ML 100 ML IV ONE (16:00)
--- NOTE | 2016-12-11 16:07 | Nephrology Progress Note ---
Nephrology Progress Note Date of Service: Dec 11, 2016. Subjective agitated and confused this am > working with palliative on goals of care and depressed; wants to cont hd Objective Date Time Temp Pulse Resp B/P (MAP) Pulse Ox O2 Delivery O2 Flow Rate FiO2 12/11/16 12:00 36.6 86 18 108/58 (75) 93 Room Air 12/11/16 07:57 36.8 82 18 88/58 (68) 94 Room Air 12/11/16 04:10 93 Room Air 12/11/16 04:00 36.6 90 20 104/68 (80) 94 Room Air 12/11/16 00:15 95 Room Air 12/11/16 00:00 36.7 86 21 89/60 (70) 95 Room Air 12/10/16 20:30 94 Room Air 12/10/16 19:57 36.7 95 20 135/72 (93) 94 Room Air Physical Exam: General Appearance: no apparent distress, + obese (on RA today, intermittently confused) Eyes: EOMI ENT: hearing grossly normal Neck: supple Respiratory/Chest: no respiratory distress, + decreased breath sounds wound on post thorax Cardiovascular: regular rate, rhythm, + systolic murmur Abdomen: normal bowel sounds, non tender, soft Extremities: + pertinent finding (BL AKA; AVF L prox arm w/ slightly weak T/b) ; L 2nd MTP joint w/ sore/ red swollen hand Neurologic/Psych: sedated lightly Skin: warm/dry, + pallor Current Inpatient Medications Medications (Trade) Dose Ordered Sig/Edin Route Start Time Stop Time Status Last Admin Dose Admin Acetaminophen (Tylenol Tab) 650 mg Q4H PRN PO 12/07/16 01:00 01/06/17 00:59 Polyethylene (Miralax Powder Packet) 17 gm BID PO 12/07/16 09:00 01/06/17 08:59 12/07/16 23:02 17 GM Ascorbic Acid (Vitamin C Tab) 500 mg MoWeFr@0900 PO 12/09/16 09:00 01/08/17 08:59 Aspirin (Ecotrin Tab) 81 mg DAILY PO 12/07/16 09:00 01/06/17 08:59 12/10/16 08:23 81 MG Atorvastatin Calcium (Lipitor Tab) 40 mg HS PO 12/07/16 21:00 01/06/17 20:59 7/22/17 23:03 40 MG Calcium Acetate (Phoslo Cap) 1,334 mg TIDM PO 12/07/16 08:00 01/06/17 07:59 12/11/16 12:53 1,334 MG Salmeterol Xinafoate/ Fluticasone (Advair Diskus 250/50 Inh) 1 puff BID INH 12/07/16 09:00 01/06/17 08:59 12/10/16 08:19 1 PUFF Gabapentin (Neurontin Cap) 300 mg Q8H PO 12/07/16 06:00 01/06/17 05:59 12/11/16 12:57 300 MG Albuterol/ Ipratropium (Combivent Respimat Inh) 1 puffs QID PRN INH 12/07/16 01:30 01/06/17 01:29 Lactobacillus Acidophilus (Floranex Tab) 4 tab TID PO 12/07/16 09:00 01/06/17 08:59 12/11/16 12:56 4 TAB Loratadine (Claritin Tab) 10 mg DAILY PO 12/07/16 09:00 01/06/17 08:59 12/10/16 08:20 10 MG Lorazepam (Ativan Tab) 0.5 mg TID PO 12/07/16 09:00 01/06/17 08:59 12/11/16 12:52 0.5 MG Magnesium Hydroxide (Milk Of Magnesia Susp) 30 ml UD PRN PO 12/07/16 01:30 01/06/17 01:29 Metoprolol Succinate (Toprol Xl Tab) 25 mg BID PO 12/07/16 09:00 01/06/17 08:59 12/10/16 08:20 25 MG Oxycodone HCl (Oxycontin Tab) 40 mg Q12 PO 12/07/16 09:00 12/21/16 08:59 12/11/16 08:27 40 MG Senna/Docusate Sodium (Senokot S Tab) 1 tab BID PO 12/07/16 09:00 01/06/17 08:59 12/08/16 09:01 1 TAB Sertraline HCl (Zoloft Tab) 50 mg QAM PO 12/07/16 09:00 01/06/17 08:59 12/11/16 13:02 50 MG Cholecalciferol (Vitamin D Tab) 5,000 inter.unit DAILY PO 12/07/16 09:00 01/06/17 08:59 Dexamethasone (Decadron Tab) 2 mg DAILY PO 12/07/16 09:00 01/06/17 08:59 12/10/16 08:23 2 MG Ferrous Sulfate (Feosol Tab) 325 mg QAM PO 12/07/16 09:00 01/06/17 08:59 12/10/16 08:23 325 MG Pantoprazole Sodium (Protonix Tab) 40 mg SuTuThSa@0900 PO 12/07/16 09:00 01/06/17 08:59 12/10/16 08:21 40 MG Oxycodone HCl (Roxicodone Immediate Rel Tab) 10 mg Q6 PRN PO 12/07/16 01:30 01/06/17 01:29 12/09/16 15:45 10 MG Miscellaneous (Iv Fluids Completed) 1 ea PRN PRN N/A 12/07/16 01:45 12/07/17 01:44 Insulin Glargine (Lantus Solostar Pen) 5 units HS SC 12/07/16 21:00 01/06/17 20:59 12/10/16 21:51 5 UNITS Morphine Sulfate (MoRPHine SULFATE INJ) 4 mg Q4H PRN IV 12/07/16 19:00 12/21/16 18:59 12/08/16 20:07 4 MG Vancomycin HCl (Consult) 1 ea UD PRN N/A 12/08/16 00:30 01/07/17 00:29 Docusate Sodium (coLACE CAP) 100 mg BID PO 12/08/16 21:00 01/07/17 20:59 12/10/16 08:21 100 MG Lactulose (Chronulac Syrup) 30 gm TID PO 12/08/16 14:00 01/07/17 13:59 12/11/16 12:56 30 GM Hydromorphone HCl (Dilaudid Inj) 2 mg Q3HWA PRN IV 12/08/16 09:45 12/22/16 09:44 12/10/16 00:46 2 MG Insulin Aspart (novoLOG ASPART) SLIDING SCALE If C... ACHS SC 12/09/16 11:00 01/08/17 10:59 12/11/16 13:01 1 UNITS Glucose (Glucose 40% Gel) 15-30 GRAMS 15 GRAMS... UD PRN PO 12/09/16 08:00 01/08/17 07:59 Glucose (Glucose Chew Tab) 4-8 Tablets 4 Tabl... UD PRN PO 12/09/16 08:00 01/08/17 07:59 Dextrose (Dextrose 50% 50ML Syringe) 25-50ML OF 50% DW IV FOR... UD PRN IV 12/09/16 08:00 01/08/17 07:59 Glucagon (Glucagon Inj) 1 mg UD PRN SQ 12/09/16 08:00 01/08/17 07:59 Ceftriaxone Sodium 2000 mg/ Dextrose 70 ml @ 100 mls/hr Q24H IV 12/09/16 20:00 12/21/16 19:59 12/10/16 21:36 100 MLS/HR Lorazepam (Ativan Inj) 1 mg Q4H PRN IV 12/09/16 16:15 01/08/17 16:14 12/10/16 08:44 1 MG Vancomycin HCl 500 mg/Sodium Chloride 110 ml @ 55 mls/hr AFTER HEMODIALYSIS ONCE IV 12/11/16 16:00 12/11/16 17:59 Enteral Nutritional Formula (Boost Glucose Control) 1 can TIDM PO 12/11/16 16:45 01/10/17 16:44 Last 24 Hours Test 12/10/16 16:32 12/10/16 20:16 12/11/16 05:39 12/11/16 06:48 Bedside Glucose 146 mg/dl 179 mg/dl 80 mg/dl White Blood Count 9.67 K/uL Red Blood Count 3.59 M/uL Hemoglobin 10.0 g/dL Hematocrit 31.9 % Mean Corpuscular Volume 88.9 fL Mean Corpuscular Hemoglobin 27.9 pg Mean Corpuscular Hemoglobin Concent 31.3 g/dl Platelet Count 158 K/uL Mean Platelet Volume 9.7 fL Neutrophils (%) (Auto) 69.8 % Lymphocytes (%) (Auto) 16.5 % Monocytes (%) (Auto) 12.7 % Eosinophils (%) (Auto) 0.4 % Basophils (%) (Auto) 0.2 % Neutrophils # (Auto) 6.74 K/uL Lymphocytes # (Auto) 1.60 K/uL Monocytes # (Auto) 1.23 K/uL Eosinophils # (Auto) 0.04 K/uL Basophils # (Auto) 0.02 K/uL RDW Standard Deviation 47.6 fL RDW Coefficient of Variation 14.6 % Immature Granulocyte % (Auto) 0.4 % Immature Granulocyte # (Auto) 0.04 K/uL Sodium Level 137 mmol/L Potassium Level 3.9 mmol/L Chloride Level 100 mmol/L Carbon Dioxide Level 26 mmol/L Anion Gap 11.0 mmol/L Blood Urea Nitrogen 21 mg/dl Creatinine 3.70 mg/dl Est Creatinine Clear Calc Drug Dose 19.2 ml/min Estimated GFR () 19.8 Estimated GFR (Non- 17.1 BUN/Creatinine Ratio 5.7 Random Glucose 81 mg/dl Calcium Level 9.1 mg/dl Total Bilirubin 0.3 mg/dl Aspartate Amino Transf (AST/SGOT) 15 U/L Alanine Aminotransferase (ALT/SGPT) 7 U/L Alkaline Phosphatase 88 U/L Total Protein 6.8 gm/dl Albumin 2.6 gm/dl Globulin 4.2 gm/dl Albumin/Globulin Ratio 0.6 Random Vancomycin Level 20.9 mcg/ml Test 12/11/16 11:33 Bedside Glucose 88 mg/dl Assessment & Plan 56 y/o M [facility] resident w/ ESRD on MWF HD TDC dependent/maturing AVF, ischemic [employer] EF 15%, s/p BL AKA admitted overnight for evaluation of delirium> has GNR bacteremia + w/in 18 hrs of presentation. ESRD MWF HD for tx today > 3.5h, 3K bath, gentle UF; mini heparin. cont phoslo; albumin IV today w/ HD to optimize uf given labile bp Anemia of chronic disease -will give epo today Encephalopathy, E claocae bacteremia -f/u pending cxs; aspiration pneumonia + UTI in setting chronic fole/ GNR bacteremia; empiric vanco/zosyn >> may need to consider tdc exchange -f/u inf dzs consult given his hx/complexity infection camp constipation/chronic pain per primary service/ minimize or avoid fleets in dialysis pt d/t risk of bowel perf; avoid mag based stimulants as well > try lactulose, dulcolax, softeners Appreciate c/s; will follow with you
--- NOTE | 2016-12-11 16:21 | Progress Note ---
Subjective Date of Service: Dec 11, 2016. Subjective Pt evaluation today including: conversation w/ patient, physical exam, chart review, lab review, review of studies, conversation w/ client service consultant Pt more alert today but still not at baseline Only oriented x 1 to person Denies any distress Undergoing dialysis at this time Apologetic for acting up for past few days Problem List Medical Problems: (1) Altered mental status Status: Acute (2) Change in mental status Status: Acute (3) Diabetes mellitus out of control Status: Acute (4) Elevated troponin Status: Acute (5) Elevated troponin Status: Acute (6) Elevated troponin Status: Acute (7) End stage renal failure on dialysis Status: Acute (8) Failure of outpatient treatment Status: Acute (9) Hyperkalemia Status: Acute (10) Hypocalcemia Status: Acute (11) Hypoglycemia Status: Acute (12) Hypokalemia Status: Acute (13) Hyponatremia Status: Acute (14) Hypotension Status: Acute (15) Hypothermia Status: Acute (16) Leukocytosis Status: Acute (17) Mass of spine Status: Acute (18) Opiate overdose Status: Acute (19) Renal failure Status: Acute (20) Renal insufficiency Status: Acute (21) Sepsis Status: Acute (22) Ulcer of toe Status: Acute (23) Ulcers of both lower extremities Status: Acute (24) UTI (urinary tract infection) Status: Acute (25) UTI (urinary tract infection) Status: Acute (26) UTI (urinary tract infection) Status: Acute Review of Systems Constitutional: No fever, No chills Eyes: No worsening of vision, No eye pain, No redness, No discharge Respiratory: No cough, No sputum, No wheezing, No shortness of breath, No dyspnea on exertion Cardiac: + edema, No chest pain, No orthopnea, No PND Abdomen: No pain, No nausea, No vomiting, No diarrhea, No constipation Musculoskeletal: + joint pain (left hand), No muscle pain, No swelling Male : No dysuria, No urinary frequency, No incontinence Neurologic: + memory loss, No paralysis, No weakness, No numbness/tingling Psychiatric: No depression symptoms, No anhedonism, No anxiety, No insomnia Skin: No rash, No itch Objective Vital Signs Date Time Temp Pulse Resp B/P (MAP) Pulse Ox O2 Delivery O2 Flow Rate FiO2 12/11/16 12:00 36.6 86 18 108/58 (75) 93 Room Air 12/11/16 07:57 36.8 82 18 88/58 (68) 94 Room Air 12/11/16 04:10 93 Room Air 12/11/16 04:00 36.6 90 20 104/68 (80) 94 Room Air 12/11/16 00:15 95 Room Air 12/11/16 00:00 36.7 86 21 89/60 (70) 95 Room Air 12/10/16 20:30 94 Room Air 12/10/16 19:57 36.7 95 20 135/72 (93) 94 Room Air Physical Exam General Appearance: WD/WN, + mild distress Eyes: normal inspection, PERRL, EOMI, sclerae normal Neck: supple, no adenopathy, thyroid normal, no JVD Respiratory/Chest: chest non-tender, lungs clear, no accessory muscle use, + accessory muscle use Cardiovascular: regular rate, rhythm, no gallop, no JVD, no murmur Abdomen: normal bowel sounds, non tender, soft, no organomegaly Neurologic/Psychiatric: no motor/sensory deficits, alert, normal mood/affect, + disoriented Laboratory Results Last 24 Hours Test 12/10/16 16:32 12/10/16 20:16 12/11/16 05:39 12/11/16 06:48 Bedside Glucose 146 mg/dl 179 mg/dl 80 mg/dl White Blood Count 9.67 K/uL Red Blood Count 3.59 M/uL Hemoglobin 10.0 g/dL Hematocrit 31.9 % Mean Corpuscular Volume 88.9 fL Mean Corpuscular Hemoglobin 27.9 pg Mean Corpuscular Hemoglobin Concent 31.3 g/dl Platelet Count 158 K/uL Mean Platelet Volume 9.7 fL Neutrophils (%) (Auto) 69.8 % Lymphocytes (%) (Auto) 16.5 % Monocytes (%) (Auto) 12.7 % Eosinophils (%) (Auto) 0.4 % Basophils (%) (Auto) 0.2 % Neutrophils # (Auto) 6.74 K/uL Lymphocytes # (Auto) 1.60 K/uL Monocytes # (Auto) 1.23 K/uL Eosinophils # (Auto) 0.04 K/uL Basophils # (Auto) 0.02 K/uL RDW Standard Deviation 47.6 fL RDW Coefficient of Variation 14.6 % Immature Granulocyte % (Auto) 0.4 % Immature Granulocyte # (Auto) 0.04 K/uL Sodium Level 137 mmol/L Potassium Level 3.9 mmol/L Chloride Level 100 mmol/L Carbon Dioxide Level 26 mmol/L Anion Gap 11.0 mmol/L Blood Urea Nitrogen 21 mg/dl Creatinine 3.70 mg/dl Est Creatinine Clear Calc Drug Dose 19.2 ml/min Estimated GFR () 19.8 Estimated GFR (Non- 17.1 BUN/Creatinine Ratio 5.7 Random Glucose 81 mg/dl Calcium Level 9.1 mg/dl Total Bilirubin 0.3 mg/dl Aspartate Amino Transf (AST/SGOT) 15 U/L Alanine Aminotransferase (ALT/SGPT) 7 U/L Alkaline Phosphatase 88 U/L Total Protein 6.8 gm/dl Albumin 2.6 gm/dl Globulin 4.2 gm/dl Albumin/Globulin Ratio 0.6 Random Vancomycin Level 20.9 mcg/ml Test 12/11/16 11:33 Bedside Glucose 88 mg/dl Assessment and Plan Bacteremia associated with intravascular line with underlying encephalopathy Likely source from dialysis catheter Cont rocephin at this time Dr Monk consulted, agree with IV antibx Blood cx pos for enterobacter cloaca, repeat blood cx NGTD No leukocytosis or fevers noted Sister concerned with overall health, palliative care consulted however due to improvement in mentation, will hold on any comfort measure at this time Coronary artery disease Stable Held meds for parameters ASA given this AM Obesity End-stage renal disease on hemodialysis Patient currently getting dialysis Nephrology consulted PAD (peripheral artery disease) Chronic systolic (reduced EF) CHF, stable Pt is DNR Continued [facility] stay due to: multiple IV medications needed, other (ongoing acute care) Discharge planning: retirement facility
[2016-12-11] MEDS: BOOST GLUCOSE CONTROL PO SCH (19:28)
[2016-12-11] MEDS: CEFTRIAXONE SOD INJ 2,000 MG in DEXTROSE 5% 50ML 50 ML IV SCH (19:29)
--- NOTE | 2016-12-11 19:51 | Infectious Disease Progress Nt ---
Progress Note Date of Service Dec 11, 2016. Subjective Pt evaluation today including: conversation w/ patient, physical exam, chart review, lab review, review of studies, conversation w/ ergonomics consultant, review of inpatient medication list Patient is slightly more oriented today. Remains hemodynamically stable. No fever. All Other Systems: Reviewed and Negative Medications Current Inpatient Medications Medications (Trade) Dose Ordered Sig/Edin Route Start Time Stop Time Status Last Admin Dose Admin Acetaminophen (Tylenol Tab) 650 mg Q4H PRN PO 12/07/16 01:00 01/06/17 00:59 Polyethylene (Miralax Powder Packet) 17 gm BID PO 12/07/16 09:00 01/06/17 08:59 12/07/16 23:02 17 GM Ascorbic Acid (Vitamin C Tab) 500 mg MoWeFr@0900 PO 12/09/16 09:00 01/08/17 08:59 Aspirin (Ecotrin Tab) 81 mg DAILY PO 12/07/16 09:00 01/06/17 08:59 12/10/16 08:23 81 MG Atorvastatin Calcium (Lipitor Tab) 40 mg HS PO 12/07/16 21:00 01/06/17 20:59 12/07/16 23:03 40 MG Calcium Acetate (Phoslo Cap) 1,334 mg TIDM PO 12/07/16 08:00 01/06/17 07:59 12/11/16 19:30 1,334 MG Salmeterol Xinafoate/ Fluticasone (Advair Diskus 250/50 Inh) 1 puff BID INH 12/07/16 09:00 01/06/17 08:59 12/10/16 08:19 1 PUFF Gabapentin (Neurontin Cap) 300 mg Q8H PO 12/07/16 06:00 01/06/17 05:59 12/11/16 12:57 300 MG Albuterol/ Ipratropium (Combivent Respimat Inh) 1 puffs QID PRN INH 12/07/16 01:30 01/06/17 01:29 Lactobacillus Acidophilus (Floranex Tab) 4 tab TID PO 12/07/16 09:00 01/06/17 08:59 12/11/16 12:56 4 TAB Loratadine (Claritin Tab) 10 mg DAILY PO 12/07/16 09:00 01/06/17 08:59 12/10/16 08:20 10 MG Lorazepam (Ativan Tab) 0.5 mg TID PO 12/07/16 09:00 01/06/17 08:59 12/11/16 12:52 0.5 MG Magnesium Hydroxide (Milk Of Magnesia Susp) 30 ml UD PRN PO 12/07/16 01:30 01/06/17 01:29 Metoprolol Succinate (Toprol Xl Tab) 25 mg BID PO 12/07/16 09:00 01/06/17 08:59 12/10/16 08:20 25 MG Oxycodone HCl (Oxycontin Tab) 40 mg Q12 PO 12/07/16 09:00 12/21/16 08:59 12/11/16 08:27 40 MG Senna/Docusate Sodium (Senokot S Tab) 1 tab BID PO 12/07/16 09:00 01/06/17 08:59 12/08/16 09:01 1 TAB Sertraline HCl (Zoloft Tab) 50 mg QAM PO 12/07/16 09:00 01/06/17 08:59 12/11/16 13:02 50 MG Cholecalciferol (Vitamin D Tab) 5,000 inter.unit DAILY PO 12/07/16 09:00 01/06/17 08:59 Dexamethasone (Decadron Tab) 2 mg DAILY PO 12/07/16 09:00 01/06/17 08:59 12/10/16 08:23 2 MG Ferrous Sulfate (Feosol Tab) 325 mg QAM PO 12/07/16 09:00 01/06/17 08:59 12/10/16 08:23 325 MG Pantoprazole Sodium (Protonix Tab) 40 mg SuTuThSa@0900 PO 12/07/16 09:00 01/06/17 08:59 12/10/16 08:21 40 MG Oxycodone HCl (Roxicodone Immediate Rel Tab) 10 mg Q6 PRN PO 12/07/16 01:30 01/06/17 01:29 12/09/16 15:45 10 MG Miscellaneous (Iv Fluids Completed) 1 ea PRN PRN N/A 12/07/16 01:45 12/07/17 01:44 Insulin Glargine (Lantus Solostar Pen) 5 units HS SC 12/07/16 21:00 01/06/17 20:59 12/10/16 21:51 5 UNITS Morphine Sulfate (MoRPHine SULFATE INJ) 4 mg Q4H PRN IV 12/07/16 19:00 12/21/16 18:59 12/08/16 20:07 4 MG Vancomycin HCl (Consult) 1 ea UD PRN N/A 12/08/16 00:30 01/07/17 00:29 Docusate Sodium (coLACE CAP) 100 mg BID PO 12/08/16 21:00 01/07/17 20:59 12/10/16 08:21 100 MG Lactulose (Chronulac Syrup) 30 gm TID PO 12/08/16 14:00 01/07/17 13:59 12/11/16 12:56 30 GM Hydromorphone HCl (Dilaudid Inj) 2 mg Q3HWA PRN IV 12/08/16 09:45 12/22/16 09:44 12/10/16 00:46 2 MG Insulin Aspart (novoLOG ASPART) SLIDING SCALE If C... ACHS SC 12/09/16 11:00 01/08/17 10:59 12/11/16 13:01 1 UNITS Glucose (Glucose 40% Gel) 15-30 GRAMS 15 GRAMS... UD PRN PO 12/09/16 08:00 01/08/17 07:59 Glucose (Glucose Chew Tab) 4-8 Tablets 4 Tabl... UD PRN PO 12/09/16 08:00 01/08/17 07:59 Dextrose (Dextrose 50% 50ML Syringe) 25-50ML OF 50% DW IV FOR... UD PRN IV 12/09/16 08:00 01/08/17 07:59 Glucagon (Glucagon Inj) 1 mg UD PRN SQ 12/09/16 08:00 01/08/17 07:59 Ceftriaxone Sodium 2000 mg/ Dextrose 70 ml @ 100 mls/hr Q24H IV 12/09/16 20:00 12/21/16 19:59 12/11/16 19:29 100 MLS/HR Lorazepam (Ativan Inj) 1 mg Q4H PRN IV 12/09/16 16:15 01/08/17 16:14 12/10/16 08:44 1 MG Enteral Nutritional Formula (Boost Glucose Control) 1 can TIDM PO 12/11/16 16:45 01/10/17 16:44 12/11/16 19:28 1 CAN Objective Vital Signs Date Time Temp Pulse Resp B/P (MAP) Pulse Ox O2 Delivery O2 Flow Rate FiO2 12/11/16 19:21 36.6 56 124/91 (102) 12/11/16 19:10 55 116/60 12/11/16 18:45 56 119/61 12/11/16 18:30 49 116/74 12/11/16 18:15 58 109/71 12/11/16 18:00 110 114/75 12/11/16 17:45 86 114/89 12/11/16 17:30 79 96/43 12/11/16 17:15 87 137/62 12/11/16 17:00 72 119/92 12/11/16 16:45 86 93/64 12/11/16 16:30 89 121/95 12/11/16 16:15 103 110/56 12/11/16 16:00 54 95/68 12/11/16 16:00 Room Air 12/11/16 15:39 89 109/58 12/11/16 15:25 36.9 93 94/44 (61) 12/11/16 12:00 36.6 86 18 108/58 (75) 93 Room Air 12/11/16 07:57 36.8 82 18 88/58 (68) 94 Room Air 12/11/16 04:10 93 Room Air 12/11/16 04:00 36.6 90 20 104/68 (80) 94 Room Air 12/11/16 00:15 95 Room Air 12/11/16 00:00 36.7 86 21 89/60 (70) 95 Room Air 12/10/16 20:30 94 Room Air 12/10/16 19:57 36.7 95 20 135/72 (93) 94 Room Air Physical Exam General Appearance: no apparent distress, + pertinent finding ( Chronically ill-appearing) Eyes: normal inspection, sclerae normal ENT: normal ENT inspection, pharynx normal Neck: supple, no adenopathy, trachea midline Respiratory/Chest: chest non-tender, lungs clear, normal breath sounds, no respiratory distress Cardiovascular: regular rate, rhythm, no gallop, no murmur Abdomen: normal bowel sounds, non tender, soft, no organomegaly Extremities: non-tender, + slow capillary refill Neurologic/Psychiatric: alert, + disoriented Skin: normal color, no rash Lymphatic: no adenopathy Laboratory Results RUN DATE: 12/11/16 [facility] LAB PAGE 1 RUN TIME: 706 Specimen Inquiry PATIENT: YOUNG HINKLE LOC: Howard # : [id number] AGE/SX: 56/M ROOM: [facility] REG : 12/07/[address]: Andrei Palacios D.O : 1960 BED: 1 DIS : STATUS: ADM IN TLOC: SPEC #: [id number] CLAUDIA: 12/09/16 STATUS: RES REQ #: [id number] RECD: 12/09/[address]: Andrei Palacios D.O. SOURCE: BLOOD ENTR: 12/09/16-854 [facility] DR: Prince Monk MD [facility]: Harrison Pena M.D. Oncu, Kerim I., DO Ridenour, Ryan, D.O. HeartDelmi ellison ORDERED: BLOOD CULTURE Procedure Result Verified Site BLD CULT Preliminary 12/11/16-705 NO GROWTH TO DATE. Last 24 Hours Test 12/10/16 20:16 12/11/16 05:39 12/11/16 06:48 12/11/16 11:33 Bedside Glucose 179 mg/dl 80 mg/dl 88 mg/dl White Blood Count 9.67 K/uL Red Blood Count 3.59 M/uL Hemoglobin 10.0 g/dL Hematocrit 31.9 % Mean Corpuscular Volume 88.9 fL Mean Corpuscular Hemoglobin 27.9 pg Mean Corpuscular Hemoglobin Concent 31.3 g/dl Platelet Count 158 K/uL Mean Platelet Volume 9.7 fL Neutrophils (%) (Auto) 69.8 % Lymphocytes (%) (Auto) 16.5 % Monocytes (%) (Auto) 12.7 % Eosinophils (%) (Auto) 0.4 % Basophils (%) (Auto) 0.2 % Neutrophils # (Auto) 6.74 K/uL Lymphocytes # (Auto) 1.60 K/uL Monocytes # (Auto) 1.23 K/uL Eosinophils # (Auto) 0.04 K/uL Basophils # (Auto) 0.02 K/uL RDW Standard Deviation 47.6 fL RDW Coefficient of Variation 14.6 % Immature Granulocyte % (Auto) 0.4 % Immature Granulocyte # (Auto) 0.04 K/uL Sodium Level 137 mmol/L Potassium Level 3.9 mmol/L Chloride Level 100 mmol/L Carbon Dioxide Level 26 mmol/L Anion Gap 11.0 mmol/L Blood Urea Nitrogen 21 mg/dl Creatinine 3.70 mg/dl Est Creatinine Clear Calc Drug Dose 19.2 ml/min Estimated GFR () 19.8 Estimated GFR (Non- 17.1 BUN/Creatinine Ratio 5.7 Random Glucose 81 mg/dl Calcium Level 9.1 mg/dl Total Bilirubin 0.3 mg/dl Aspartate Amino Transf (AST/SGOT) 15 U/L Alanine Aminotransferase (ALT/SGPT) 7 U/L Alkaline Phosphatase 88 U/L Total Protein 6.8 gm/dl Albumin 2.6 gm/dl Globulin 4.2 gm/dl Albumin/Globulin Ratio 0.6 Random Vancomycin Level 20.9 mcg/ml Test 12/11/16 16:36 Bedside Glucose 101 mg/dl [~ rep ct add3]] KUB CLINICAL HISTORY: 56 years-old Male presenting with fecal impaction-? status. TECHNIQUE: Single supine view of the abdomen was obtained. COMPARISON: CT from 11/22/2016. FINDINGS: Image quality is limited by patient body habitus and positioning. This degrades sensitivity of the study. Atherosclerosis. Nonobstructive bowel gas pattern. Mild stool burden throughout normal caliber colon. Partially visualized implanted cardiac defibrillator leads. Degenerative changes of the spine most severe at L1-2. IMPRESSION: 1. Mild stool burden. No evidence of obstruction. Limited exam secondary to poor image quality. Electronically signed by: Brandyn Arzate M.D. 12/09/2016 3:01 PM Dictated Date/Time: 12/09/2016 2:59 PM Assessment and Plan (1) Bacteremia associated with intravascular line Likely source from dialysis catheter Cont rocephin at this time Dr Monk consulted Blood cx pos for enterobacter cloaca, repeat blood cx pending No leukocytosis or fevers noted Sister concerned with overall health, considering hospice, will need POA determination (2) Delirium Secondary to his bacteremia as stated above in addition to ESRD and cardiomyopathy Continue antibiotics Poor prognosis Palliative care consultation was placed for goals of care discussion (3) Coronary artery disease Status: Chronic Stable Held meds for parameters ASA given this AM (4) Obesity Status: Chronic (5) End-stage renal disease on hemodialysis Patient getting dialysis MWF Continue ativan 1 mg q 4hrs PRN anxiety (6) PAD (peripheral artery disease) Status: Chronic 56-year-old male with end-stage renal disease, severe peripheral vascular disease, diabetes mellitus, chronic,now presents with Enterobacter bacteremia and encephalopathy. Most likely source would be dialysis catheter, and likely will need to be changed. Right hand/wrist infection also possible source. Have changed to IV ceftriaxone. To discuss with all involved.
[2016-12-11] MEDS: ATORVASTATIN 40 MG TAB PO SCH (21:00)
[2016-12-11] MEDS: INSULIN GLARGINE SOLOSTAR 100 UNITS/ML 3 ML PEN SC SCH (21:00)
[2016-12-12] VITALS (10 sets, daily range): BP systolic 96–137; BP diastolic 60–99; PULSE 92–121; TEMP 36.8–37.2; O2SAT 94–100
[2016-12-12] MEDS: LORAZEPAM 2 MG/ML 1 ML VIAL IV PRN ×3 (00:37→18:51)
[2016-12-12] MEDS: OXYCODONE HCL IR 5 MG TAB (IMMEDIATE RELEASE) PO PRN (00:37)
[2016-12-12] MEDS: GABAPENTIN 300 MG CAP PO SCH ×3 (05:25→20:46)
[2016-12-12] MEDS: MoRPHine SULFATE 4 MG/ML 1 ML CARP\\VIAL IV PRN ×2 (05:43→12:45)
[2016-12-12 06:37] LABS: BASO % 0.7 %; BASO ABS # 0.06 K/uL (0-0.2); COMPLETE YES; EOS % 1.2 %; HEMATOCRIT 34.9 % (42-52); IG% 0.5 %; LYMPH % 17.4 %; LYMPH ABS # 1.43 K/uL (1.2-3.4); MEAN CELL VOLUME 89.3 fL (80-100); MEAN CORPUSCULAR HEMOGLOBIN 27.1 pg (25-34); MEAN CORPUSCULAR HGB CONC 30.4 g/dl (32-36); MEAN PLATELET VOLUME 9.4 fL (7.4-10.4); MONO % 14.9 %; NEUT % 65.3 %; PLATELET COUNT 203 K/uL (130-400); RED BLOOD COUNT 3.91 M/uL (4.7-6.1); WHITE BLOOD COUNT 8.23 K/uL (4.8-10.8)
[2016-12-12 07:11] LABS: BUN/CREATININE RATIO 3.9 (10-20); CREATININE 2.5 mg/dl (0.60-1.40); POTASSIUM 3.9 mmol/L (3.5-5.1)
[2016-12-12 07:20] LABS: ALB/GLOB RATIO 0.6 (0.9-2)
[2016-12-12] MEDS: HEPARIN SOD (PORCINE) 1000 UNIT/ML 10 ML VIAL IV SCH ×2 (07:40→07:43)
[2016-12-12] MEDS: INSULIN ASPART 100 UNITS/ML 3 ML PEN SC SCH ×4 (08:00→21:00)
[2016-12-12] MEDS: FERROUS SULFATE 325 MG TAB PO SCH ×2 (08:59→09:35)
[2016-12-12] MEDS: DOCUSATE SODIUM 100 MG CAP PO SCH ×2 (08:59→20:46)
[2016-12-12] MEDS: BOOST GLUCOSE CONTROL PO SCH ×3 (08:59→17:00)
[2016-12-12] MEDS: CALCIUM ACETATE 667MG GELCAP PO SCH ×3 (08:59→17:00)
[2016-12-12] MEDS: FLUTICASONE/SALMETEROL 250/50 (ADVAIR) 14 PUFF/1 INHALER INH SCH ×2 (09:00→20:48)
[2016-12-12] MEDS: LORAZEPAM 0.5 MG TAB PO SCH ×3 (09:00→21:00)
[2016-12-12] MEDS: LACTULOSE SYRUP 30 GM/45 ML UDP PO SCH ×4 (09:00→20:42)
[2016-12-12] MEDS: OXYCODONE HCL 40 MG TABCR (OXYCONTIN) PO SCH ×2 (09:00→20:51)
[2016-12-12] MEDS: POLYETHYLENE (MIRALAX) 17 GM PACK PO SCH ×2 (09:00→20:47)
[2016-12-12] MEDS: CHOLECALCIFEROL 1000 INTER.UNIT TAB PO SCH (09:00)
[2016-12-12] MEDS: LORATADINE 10 MG TAB PO SCH (09:01)
[2016-12-12] MEDS: LACTOBACILLUS ACIDOPHILUS (FLORANEX) TAB PO SCH ×3 (09:01→20:47)
[2016-12-12] MEDS: METOPROLOL SUCC 25MG EXT REL TAB PO SCH ×2 (09:01→20:45)
[2016-12-12] MEDS: DOCUSATE SODIUM/SENNA 50/8.6MG TAB PO SCH ×2 (09:01→20:47)
[2016-12-12] MEDS: PANTOprazole SOD 40 MG TAB PO SCH (09:01)
[2016-12-12] MEDS: SERTRALINE HCL 50 MG TAB PO SCH (09:02)
[2016-12-12] MEDS: DEXAMETHASONE 1 MG TAB PO SCH (09:03)
[2016-12-12] MEDS: ASPIRIN 81 MG ECTAB PO SCH ×2 (09:03→09:35)
--- NOTE | 2016-12-12 10:27 | Nephrology Progress Note ---
Nephrology Progress Note Date of Service: Dec 12, 2016. Subjective agitated and confused this am again > working with palliative on goals of care and depressed; wants to cont hd but refusing pills, disinclined to do TDC removal / line holiday Objective Date Time Temp Pulse Resp B/P (MAP) Pulse Ox O2 Delivery O2 Flow Rate FiO2 12/12/16 08:14 37.2 96 18 123/68 (86) 94 Room Air 12/12/16 08:00 Room Air 12/12/16 04:10 100 Nasal Cannula 2.0 12/12/16 04:00 36.8 112 20 137/85 (102) 100 Nasal Cannula 2.0 12/12/16 00:30 100 Nasal Cannula 2.0 12/12/16 00:00 36.9 98 20 122/99 (107) 100 Nasal Cannula 2.0 12/11/16 20:34 36.6 49 18 115/46 (69) 100 Nasal Cannula 3.0 12/11/16 20:00 Room Air 12/11/16 19:21 36.6 56 124/91 (102) 12/11/16 19:10 55 116/60 12/11/16 18:45 56 119/61 12/11/16 18:30 49 116/74 12/11/16 18:15 58 109/71 12/11/16 18:00 110 114/75 12/11/16 17:45 86 114/89 12/11/16 17:30 79 96/43 12/11/16 17:15 87 137/62 12/11/16 17:00 72 119/92 12/11/16 16:45 86 93/64 12/11/16 16:30 89 121/95 12/11/16 16:15 103 110/56 12/11/16 16:00 54 95/68 12/11/16 16:00 Room Air 12/11/16 15:39 89 109/58 12/11/16 15:25 36.9 93 94/44 (61) 12/11/16 12:00 36.6 86 18 108/58 (75) 93 Room Air Physical Exam: General Appearance: yelling unless nurse at bedside; + obese (on RA , answers in monosyllables; oriented to self/place) Eyes: EOMI ENT: hearing grossly normal Neck: supple Respiratory/Chest: no respiratory distress, + decreased breath sounds Cardiovascular: regular rate, rhythm, + systolic murmur Abdomen: normal bowel sounds, non tender, soft Extremities: + pertinent finding (BL AKA; AVF L prox arm w/ slightly weak T/b) ; L 2nd MTP joint w/ less sore/ red swollen hand Neurologic/Psych: sedated lightly Skin: warm/dry, + pallor Current Inpatient Medications Medications (Trade) Dose Ordered Sig/Edin Route Start Time Stop Time Status Last Admin Dose Admin Acetaminophen (Tylenol Tab) 650 mg Q4H PRN PO 12/07/16 01:00 01/06/17 00:59 Polyethylene (Miralax Powder Packet) 17 gm BID PO 12/07/16 09:00 01/06/17 08:59 12/12/16 09:00 17 GM Ascorbic Acid (Vitamin C Tab) 500 mg MoWeFr@0900 PO 12/09/16 09:00 01/08/17 08:59 Aspirin (Ecotrin Tab) 81 mg DAILY PO 12/07/16 09:00 01/06/17 08:59 12/10/16 08:23 81 MG Atorvastatin Calcium (Lipitor Tab) 40 mg HS PO 12/07/16 21:00 01/06/17 20:59 12/07/16 23:03 40 MG Calcium Acetate (Phoslo Cap) 1,334 mg TIDM PO 12/07/16 08:00 01/06/17 07:59 12/12/16 08:59 1,334 MG Salmeterol Xinafoate/ Fluticasone (Advair Diskus 250/50 Inh) 1 puff BID INH 12/07/16 09:00 01/06/17 08:59 12/12/16 09:00 1 PUFF Gabapentin (Neurontin Cap) 300 mg Q8H PO 12/07/16 06:00 01/06/17 05:59 12/12/16 05:25 300 MG Albuterol/ Ipratropium (Combivent Respimat Inh) 1 puffs QID PRN INH 12/07/16 01:30 01/06/17 01:29 Lactobacillus Acidophilus (Floranex Tab) 4 tab TID PO 12/07/16 09:00 01/06/17 08:59 12/12/16 09:01 4 TAB Loratadine (Claritin Tab) 10 mg DAILY PO 12/07/16 09:00 01/06/17 08:59 12/12/16 09:01 10 MG Lorazepam (Ativan Tab) 0.5 mg TID PO 12/07/16 09:00 01/06/17 08:59 12/12/16 09:00 0.5 MG Magnesium Hydroxide (Milk Of Magnesia Susp) 30 ml UD PRN PO 12/07/16 01:30 01/06/17 01:29 Metoprolol Succinate (Toprol Xl Tab) 25 mg BID PO 12/07/16 09:00 01/06/17 08:59 12/12/16 09:01 25 MG Oxycodone HCl (Oxycontin Tab) 40 mg Q12 PO 12/07/16 09:00 12/21/16 08:59 12/12/16 09:00 40 MG Senna/Docusate Sodium (Senokot S Tab) 1 tab BID PO 12/07/16 09:00 01/06/17 08:59 12/12/16 09:01 1 TAB Sertraline HCl (Zoloft Tab) 50 mg QAM PO 12/07/16 09:00 01/06/17 08:59 12/12/16 09:02 50 MG Cholecalciferol (Vitamin D Tab) 5,000 inter.unit DAILY PO 12/07/16 09:00 01/06/17 08:59 12/12/16 09:00 5,000 INTER.UNIT Dexamethasone (Decadron Tab) 2 mg DAILY PO 12/07/16 09:00 01/06/17 08:59 12/12/16 09:03 2 MG Ferrous Sulfate (Feosol Tab) 325 mg QAM PO 12/07/16 09:00 01/06/17 08:59 12/10/16 08:23 325 MG Pantoprazole Sodium (Protonix Tab) 40 mg SuTuThSa@0900 PO 12/07/16 09:00 01/06/17 08:59 12/12/16 09:01 40 MG Oxycodone HCl (Roxicodone Immediate Rel Tab) 10 mg Q6 PRN PO 12/07/16 01:30 01/06/17 01:29 12/12/16 00:37 10 MG Miscellaneous (Iv Fluids Completed) 1 ea PRN PRN N/A 12/07/16 01:45 12/07/17 01:44 Insulin Glargine (Lantus Solostar Pen) 5 units HS SC 12/07/16 21:00 01/06/17 20:59 12/10/16 21:51 5 UNITS Morphine Sulfate (MoRPHine SULFATE INJ) 4 mg Q4H PRN IV 12/07/16 19:00 12/21/16 18:59 12/12/16 05:43 4 MG Vancomycin HCl (Consult) 1 ea UD PRN N/A 12/08/16 00:30 01/07/17 00:29 Docusate Sodium (coLACE CAP) 100 mg BID PO 12/08/16 21:00 01/07/17 20:59 12/12/16 08:59 100 MG Lactulose (Chronulac Syrup) 30 gm TID PO 12/08/16 14:00 01/07/17 13:59 12/11/16 12:56 30 GM Hydromorphone HCl (Dilaudid Inj) 2 mg Q3HWA PRN IV 12/08/16 09:45 12/22/16 09:44 12/10/16 00:46 2 MG Insulin Aspart (novoLOG ASPART) SLIDING SCALE If C... ACHS SC 12/09/16 11:00 01/08/17 10:59 12/11/16 13:01 1 UNITS Glucose (Glucose 40% Gel) 15-30 GRAMS 15 GRAMS... UD PRN PO 12/09/16 08:00 01/08/17 07:59 Glucose (Glucose Chew Tab) 4-8 Tablets 4 Tabl... UD PRN PO 12/09/16 08:00 01/08/17 07:59 Dextrose (Dextrose 50% 50ML Syringe) 25-50ML OF 50% DW IV FOR... UD PRN IV 12/09/16 08:00 01/08/17 07:59 Glucagon (Glucagon Inj) 1 mg UD PRN SQ 12/09/16 08:00 01/08/17 07:59 Ceftriaxone Sodium 2000 mg/ Dextrose 70 ml @ 100 mls/hr Q24H IV 12/09/16 20:00 12/21/16 19:59 12/11/16 19:29 100 MLS/HR Lorazepam (Ativan Inj) 1 mg Q4H PRN IV 12/09/16 16:15 01/08/17 16:14 12/12/16 06:20 1 MG Enteral Nutritional Formula (Boost Glucose Control) 1 can TIDM PO 12/11/16 16:45 01/10/17 16:44 12/12/16 08:59 1 CAN Last 24 Hours Test 12/11/16 11:33 12/11/16 16:36 12/11/16 20:45 12/12/16 06:19 Bedside Glucose 88 mg/dl 101 mg/dl 145 mg/dl White Blood Count 8.23 K/uL Red Blood Count 3.91 M/uL Hemoglobin 10.6 g/dL Hematocrit 34.9 % Mean Corpuscular Volume 89.3 fL Mean Corpuscular Hemoglobin 27.1 pg Mean Corpuscular Hemoglobin Concent 30.4 g/dl Platelet Count 203 K/uL Mean Platelet Volume 9.4 fL Neutrophils (%) (Auto) 65.3 % Lymphocytes (%) (Auto) 17.4 % Monocytes (%) (Auto) 14.9 % Eosinophils (%) (Auto) 1.2 % Basophils (%) (Auto) 0.7 % Neutrophils # (Auto) 5.37 K/uL Lymphocytes # (Auto) 1.43 K/uL Monocytes # (Auto) 1.23 K/uL Eosinophils # (Auto) 0.10 K/uL Basophils # (Auto) 0.06 K/uL RDW Standard Deviation 47.8 fL RDW Coefficient of Variation 14.7 % Immature Granulocyte % (Auto) 0.5 % Immature Granulocyte # (Auto) 0.04 K/uL Sodium Level 136 mmol/L Potassium Level 3.9 mmol/L Chloride Level 98 mmol/L Carbon Dioxide Level 28 mmol/L Anion Gap 10.0 mmol/L Blood Urea Nitrogen 10 mg/dl Creatinine 2.50 mg/dl Est Creatinine Clear Calc Drug Dose 28.4 ml/min Estimated GFR () 31.8 Estimated GFR (Non- 27.5 BUN/Creatinine Ratio 3.9 Random Glucose 110 mg/dl Calcium Level 9.0 mg/dl Total Bilirubin 0.4 mg/dl Aspartate Amino Transf (AST/SGOT) 13 U/L Alanine Aminotransferase (ALT/SGPT) 7 U/L Alkaline Phosphatase 102 U/L Total Protein 7.2 gm/dl Albumin 2.6 gm/dl Globulin 4.6 gm/dl Albumin/Globulin Ratio 0.6 Test 12/12/16 07:28 Bedside Glucose 100 mg/dl Assessment & Plan 56 y/o M [facility] resident w/ ESRD on MWF HD TDC dependent/maturing AVF, ischemic [employer] EF 15%, s/p BL AKA admitted overnight for evaluation of delirium> has E cloacae bacteremia + w/in 18 hrs of presentation. ESRD had HD yesterday w/ albumin; next HD to depend on vasc access plans >> recommend HD in AM then line removal tomorrow afternoon if he agrees to it; then line holiday over weekend and TDC replacement versus temp cath on 12/16 or Anemia of chronic disease -epo w/ HD Encephalopathy, E claocae bacteremia -f/u pending cxs; aspiration pneumonia + UTI in setting chronic fole/ GNR bacteremia; empiric vanco/zosyn >> inf dzs favors TDC removal -inf dzs recommends TDC removal/ line holiday >> pt and team working on whether this is consistent with his goals of care; I agree w/ plan to remove TDC but no consent at this time; Appreciate c/s; will follow with you
--- NOTE | 2016-12-12 15:02 | Progress Note ---
Subjective Date of Service: Dec 12, 2016. Subjective Pt evaluation today including: conversation w/ patient, conversation w/ family , physical exam, chart review, lab review, review of studies, conversation w/ instructional systems design consultant, review of inpatient medication list Pt confused Yelling out this AM Medicated several times for agitation Refusing meds Family meet held with sister, questions answered Problem List Medical Problems: (1) Altered mental status Status: Acute (2) Change in mental status Status: Acute (3) Diabetes mellitus out of control Status: Acute (4) Elevated troponin Status: Acute (5) Elevated troponin Status: Acute (6) Elevated troponin Status: Acute (7) End stage renal failure on dialysis Status: Acute (8) Failure of outpatient treatment Status: Acute (9) Hyperkalemia Status: Acute (10) Hypocalcemia Status: Acute (11) Hypoglycemia Status: Acute (12) Hypokalemia Status: Acute (13) Hyponatremia Status: Acute (14) Hypotension Status: Acute (15) Hypothermia Status: Acute (16) Leukocytosis Status: Acute (17) Mass of spine Status: Acute (18) Opiate overdose Status: Acute (19) Renal failure Status: Acute (20) Renal insufficiency Status: Acute (21) Sepsis Status: Acute (22) Ulcer of toe Status: Acute (23) Ulcers of both lower extremities Status: Acute (24) UTI (urinary tract infection) Status: Acute (25) UTI (urinary tract infection) Status: Acute (26) UTI (urinary tract infection) Status: Acute Review of Systems Unable to obtain due to delirium Objective Vital Signs Date Time Temp Pulse Resp B/P (MAP) Pulse Ox O2 Delivery O2 Flow Rate FiO2 12/12/16 13:57 36.8 109 18 102/60 (74) 95 12/12/16 13:36 37.0 99 20 95 12/12/16 12:00 Room Air 12/12/16 11:45 37.0 121 20 100/66 (77) 95 Room Air 12/12/16 08:14 37.2 96 18 123/68 (86) 94 Room Air 12/12/16 08:00 Room Air 12/12/16 04:10 100 Nasal Cannula 2.0 12/12/16 04:00 36.8 112 20 137/85 (102) 100 Nasal Cannula 2.0 12/12/16 00:30 100 Nasal Cannula 2.0 12/12/16 00:00 36.9 98 20 122/99 (107) 100 Nasal Cannula 2.0 12/11/16 20:34 36.6 49 18 115/46 (69) 100 Nasal Cannula 3.0 12/11/16 20:00 Room Air 12/11/16 19:21 36.6 56 124/91 (102) 12/11/16 19:10 55 116/60 12/11/16 18:45 56 119/61 12/11/16 18:30 49 116/74 12/11/16 18:15 58 109/71 12/11/16 18:00 110 114/75 12/11/16 17:45 86 114/89 12/11/16 17:30 79 96/43 12/11/16 17:15 87 137/62 12/11/16 17:00 72 119/92 12/11/16 16:45 86 93/64 12/11/16 16:30 89 121/95 12/11/16 16:15 103 110/56 12/11/16 16:00 54 95/68 12/11/16 16:00 Room Air 12/11/16 15:39 89 109/58 12/11/16 15:25 36.9 93 94/44 (61) Physical Exam General Appearance: WD/WN, + moderate distress Neck: supple, no adenopathy, thyroid normal, no JVD Respiratory/Chest: chest non-tender, no respiratory distress, no accessory muscle use, + decreased breath sounds Cardiovascular: no edema, no gallop, no JVD, + tachycardia Abdomen: normal bowel sounds, non tender, soft, no organomegaly Extremities: normal range of motion, non-tender, normal inspection, no pedal edema Neurologic/Psychiatric: no motor/sensory deficits, alert, + disoriented Laboratory Results Last 24 Hours Test 12/11/16 16:36 12/11/16 20:45 12/12/16 06:19 12/12/16 07:28 Bedside Glucose 101 mg/dl 145 mg/dl 100 mg/dl White Blood Count 8.23 K/uL Red Blood Count 3.91 M/uL Hemoglobin 10.6 g/dL Hematocrit 34.9 % Mean Corpuscular Volume 89.3 fL Mean Corpuscular Hemoglobin 27.1 pg Mean Corpuscular Hemoglobin Concent 30.4 g/dl Platelet Count 203 K/uL Mean Platelet Volume 9.4 fL Neutrophils (%) (Auto) 65.3 % Lymphocytes (%) (Auto) 17.4 % Monocytes (%) (Auto) 14.9 % Eosinophils (%) (Auto) 1.2 % Basophils (%) (Auto) 0.7 % Neutrophils # (Auto) 5.37 K/uL Lymphocytes # (Auto) 1.43 K/uL Monocytes # (Auto) 1.23 K/uL Eosinophils # (Auto) 0.10 K/uL Basophils # (Auto) 0.06 K/uL RDW Standard Deviation 47.8 fL RDW Coefficient of Variation 14.7 % Immature Granulocyte % (Auto) 0.5 % Immature Granulocyte # (Auto) 0.04 K/uL Sodium Level 136 mmol/L Potassium Level 3.9 mmol/L Chloride Level 98 mmol/L Carbon Dioxide Level 28 mmol/L Anion Gap 10.0 mmol/L Blood Urea Nitrogen 10 mg/dl Creatinine 2.50 mg/dl Est Creatinine Clear Calc Drug Dose 28.4 ml/min Estimated GFR () 31.8 Estimated GFR (Non- 27.5 BUN/Creatinine Ratio 3.9 Random Glucose 110 mg/dl Calcium Level 9.0 mg/dl Total Bilirubin 0.4 mg/dl Aspartate Amino Transf (AST/SGOT) 13 U/L Alanine Aminotransferase (ALT/SGPT) 7 U/L Alkaline Phosphatase 102 U/L Total Protein 7.2 gm/dl Albumin 2.6 gm/dl Globulin 4.6 gm/dl Albumin/Globulin Ratio 0.6 Test 12/12/16 11:28 Bedside Glucose 190 mg/dl Assessment and Plan (1) Bacteremia associated with intravascular line Assessment & Plan: Likely source from dialysis catheter Cont rocephin and vancomycin at this time Dr Monk consulted Blood cx pos for enterobacter cloaca, repeat blood cx NGTD No leukocytosis or fevers noted POA - Vernilay (mom) would like to think about whether she wants line exchanged and continued antibx, agree to cont current tx at this time (2) Delirium Assessment & Plan: Secondary to his bacteremia as stated above in addition to ESRD and cardiomyopathy Continue antibiotics Poor prognosis Palliative care consultation was placed for goals of care discussion (3) Coronary artery disease Assessment & Plan: Stable Held meds for parameters Pt on/off refusing meds Noted tachycardia (4) Obesity (5) End-stage renal disease on hemodialysis Assessment & Plan: Patient getting dialysis MWF Continue ativan 1 mg q 4hrs PRN anxiety Family still deciding whether to do TDC exchange or not (6) PAD (peripheral artery disease) Continued [facility] stay due to: multiple IV medications needed, other (ongoing acute care) Discharge planning: [facility] facility
[2016-12-12] MEDS: CEFTRIAXONE SOD INJ 2,000 MG in DEXTROSE 5% 50ML 50 ML IV SCH (19:55)
[2016-12-12] MEDS: ATORVASTATIN 40 MG TAB PO SCH (20:46)
[2016-12-12] MEDS: INSULIN GLARGINE SOLOSTAR 100 UNITS/ML 3 ML PEN SC SCH (21:01)
--- NOTE | 2016-12-12 21:33 | Infectious Disease Progress Nt ---
Progress Note Date of Service Dec 12, 2016. Subjective Pt evaluation today including: conversation w/ patient, physical exam, chart review, lab review, review of studies, conversation w/ employment consultant, review of inpatient medication list Remains confused and agitated. Remains afebrile. All Other Systems: Reviewed and Negative Medications Current Inpatient Medications Medications (Trade) Dose Ordered Sig/Edin Route Start Time Stop Time Status Last Admin Dose Admin Acetaminophen (Tylenol Tab) 650 mg Q4H PRN PO 12/07/16 01:00 01/06/17 00:59 Polyethylene (Miralax Powder Packet) 17 gm BID PO 12/07/16 09:00 01/06/17 08:59 12/12/16 09:00 17 GM Ascorbic Acid (Vitamin C Tab) 500 mg MoWeFr@0900 PO 12/09/16 09:00 01/08/17 08:59 Aspirin (Ecotrin Tab) 81 mg DAILY PO 12/07/16 09:00 01/06/17 08:59 12/10/16 08:23 81 MG Atorvastatin Calcium (Lipitor Tab) 40 mg HS PO 12/07/16 21:00 01/06/17 20:59 12/12/16 20:46 40 MG Calcium Acetate (Phoslo Cap) 1,334 mg TIDM PO 12/07/16 08:00 01/06/17 07:59 12/12/16 08:59 1,334 MG Salmeterol Xinafoate/ Fluticasone (Advair Diskus 250/50 Inh) 1 puff BID INH 12/07/16 09:00 01/06/17 08:59 12/12/16 20:48 1 PUFF Gabapentin (Neurontin Cap) 300 mg Q8H PO 12/07/16 06:00 01/06/17 05:59 12/12/16 20:46 300 MG Albuterol/ Ipratropium (Combivent Respimat Inh) 1 puffs QID PRN INH 12/07/16 01:30 01/06/17 01:29 Lactobacillus Acidophilus (Floranex Tab) 4 tab TID PO 12/07/16 09:00 01/06/17 08:59 12/12/16 20:47 4 TAB Loratadine (Claritin Tab) 10 mg DAILY PO 12/07/16 09:00 01/06/17 08:59 12/12/16 09:01 10 MG Lorazepam (Ativan Tab) 0.5 mg TID PO 12/07/16 09:00 01/06/17 08:59 12/12/16 12:44 0.5 MG Magnesium Hydroxide (Milk Of Magnesia Susp) 30 ml UD PRN PO 12/07/16 01:30 01/06/17 01:29 Metoprolol Succinate (Toprol Xl Tab) 25 mg BID PO 12/07/16 09:00 01/06/17 08:59 12/12/16 09:01 25 MG Oxycodone HCl (Oxycontin Tab) 40 mg Q12 PO 12/07/16 09:00 12/21/16 08:59 12/12/16 20:51 40 MG Senna/Docusate Sodium (Senokot S Tab) 1 tab BID PO 12/07/16 09:00 01/06/17 08:59 12/12/16 20:47 1 TAB Sertraline HCl (Zoloft Tab) 50 mg QAM PO 12/07/16 09:00 01/06/17 08:59 12/12/16 09:02 50 MG Cholecalciferol (Vitamin D Tab) 5,000 inter.unit DAILY PO 12/07/16 09:00 01/06/17 08:59 12/12/16 09:00 5,000 INTER.UNIT Dexamethasone (Decadron Tab) 2 mg DAILY PO 12/07/16 09:00 01/06/17 08:59 12/12/16 09:03 2 MG Ferrous Sulfate (Feosol Tab) 325 mg QAM PO 12/07/16 09:00 01/06/17 08:59 12/10/16 08:23 325 MG Pantoprazole Sodium (Protonix Tab) 40 mg SuTuThSa@0900 PO 12/07/16 09:00 01/06/17 08:59 12/12/16 09:01 40 MG Oxycodone HCl (Roxicodone Immediate Rel Tab) 10 mg Q6 PRN PO 12/07/16 01:30 01/06/17 01:29 12/12/16 00:37 10 MG Miscellaneous (Iv Fluids Completed) 1 ea PRN PRN N/A 12/07/16 01:45 12/07/17 01:44 Insulin Glargine (Lantus Solostar Pen) 5 units HS SC 12/07/16 21:00 01/06/17 20:59 12/12/16 21:01 5 UNITS Morphine Sulfate (MoRPHine SULFATE INJ) 4 mg Q4H PRN IV 12/07/16 19:00 12/21/16 18:59 12/12/16 12:45 4 MG Vancomycin HCl (Consult) 1 ea UD PRN N/A 12/08/16 00:30 01/07/17 00:29 Docusate Sodium (coLACE CAP) 100 mg BID PO 12/08/16 21:00 01/07/17 20:59 12/12/16 20:46 100 MG Lactulose (Chronulac Syrup) 30 gm TID PO 12/08/16 14:00 01/07/17 13:59 12/12/16 20:42 30 GM Hydromorphone HCl (Dilaudid Inj) 2 mg Q3HWA PRN IV 12/08/16 09:45 12/22/16 09:44 12/10/16 00:46 2 MG Insulin Aspart (novoLOG ASPART) SLIDING SCALE If C... ACHS SC 12/09/16 11:00 01/08/17 10:59 12/12/16 21:00 1 UNITS Glucose (Glucose 40% Gel) 15-30 GRAMS 15 GRAMS... UD PRN PO 12/09/16 08:00 01/08/17 07:59 Glucose (Glucose Chew Tab) 4-8 Tablets 4 Tabl... UD PRN PO 12/09/16 08:00 01/08/17 07:59 Dextrose (Dextrose 50% 50ML Syringe) 25-50ML OF 50% DW IV FOR... UD PRN IV 12/09/16 08:00 01/08/17 07:59 Glucagon (Glucagon Inj) 1 mg UD PRN SQ 12/09/16 08:00 01/08/17 07:59 Ceftriaxone Sodium 2000 mg/ Dextrose 70 ml @ 100 mls/hr Q24H IV 12/09/16 20:00 12/21/16 19:59 12/12/16 19:55 100 MLS/HR Lorazepam (Ativan Inj) 1 mg Q4H PRN IV 12/09/16 16:15 01/08/17 16:14 12/12/16 18:51 1 MG Enteral Nutritional Formula (Boost Glucose Control) 1 can TIDM PO 12/11/16 16:45 01/10/17 16:44 12/12/16 08:59 1 CAN Objective Vital Signs Date Time Temp Pulse Resp B/P (MAP) Pulse Ox O2 Delivery O2 Flow Rate FiO2 12/12/16 16:00 95 Room Air 12/12/16 13:57 36.8 109 18 102/60 (74) 95 12/12/16 13:36 37.0 99 20 95 12/12/16 12:00 Room Air 12/12/16 11:45 37.0 121 20 100/66 (77) 95 Room Air 12/12/16 08:14 37.2 96 18 123/68 (86) 94 Room Air 12/12/16 08:00 Room Air 12/12/16 04:10 100 Nasal Cannula 2.0 12/12/16 04:00 36.8 112 20 137/85 (102) 100 Nasal Cannula 2.0 12/12/16 00:30 100 Nasal Cannula 2.0 12/12/16 00:00 36.9 98 20 122/99 (107) 100 Nasal Cannula 2.0 Physical Exam General Appearance: + mild distress, + pertinent finding (Chronically ill- appearing) Eyes: normal inspection, sclerae normal ENT: normal ENT inspection, pharynx normal Neck: supple, no adenopathy, trachea midline Respiratory/Chest: chest non-tender, lungs clear, normal breath sounds, no respiratory distress Cardiovascular: regular rate, rhythm, no gallop, no murmur Abdomen: normal bowel sounds, non tender, soft, no organomegaly Extremities: non-tender, + pertinent finding (AKAs) Neurologic/Psychiatric: alert, + disoriented Skin: normal color, no rash Lymphatic: no adenopathy Laboratory Results RUN DATE: 12/11/16 [facility] LAB PAGE 1 RUN TIME: 706 Specimen Inquiry PATIENT: YOUNG HINKLE LOC: [place] # : [id number] AGE/SX: 56/M ROOM: [facility] REG : 12/07/[address]: Andrei Palacios D.O : 1960 BED: 1 DIS : STATUS: ADM IN TLOC: SPEC #: [id number] CLAUDIA: 12/09/16 STATUS: RES REQ #: [id number] RECD: 12/09/[address]: Andrei Palacios D.O. SOURCE: BLOOD ENTR: 12/09/[address] [facility] [address]: Prince Monk MD [facility]: Harrison Pena M.D. Oncu, Kerim I., DO Ridenour, Ryan, D.O. [place], [place] ORDERED: BLOOD CULTURE Procedure Result Verified Site BLD CULT Preliminary 12/11/16-705 NO GROWTH TO DATE. Last 24 Hours Test 12/12/16 06:19 12/12/16 07:28 12/12/16 11:28 12/12/16 20:05 White Blood Count 8.23 K/uL Red Blood Count 3.91 M/uL Hemoglobin 10.6 g/dL Hematocrit 34.9 % Mean Corpuscular Volume 89.3 fL Mean Corpuscular Hemoglobin 27.1 pg Mean Corpuscular Hemoglobin Concent 30.4 g/dl Platelet Count 203 K/uL Mean Platelet Volume 9.4 fL Neutrophils (%) (Auto) 65.3 % Lymphocytes (%) (Auto) 17.4 % Monocytes (%) (Auto) 14.9 % Eosinophils (%) (Auto) 1.2 % Basophils (%) (Auto) 0.7 % Neutrophils # (Auto) 5.37 K/uL Lymphocytes # (Auto) 1.43 K/uL Monocytes # (Auto) 1.23 K/uL Eosinophils # (Auto) 0.10 K/uL Basophils # (Auto) 0.06 K/uL RDW Standard Deviation 47.8 fL RDW Coefficient of Variation 14.7 % Immature Granulocyte % (Auto) 0.5 % Immature Granulocyte # (Auto) 0.04 K/uL Sodium Level 136 mmol/L Potassium Level 3.9 mmol/L Chloride Level 98 mmol/L Carbon Dioxide Level 28 mmol/L Anion Gap 10.0 mmol/L Blood Urea Nitrogen 10 mg/dl Creatinine 2.50 mg/dl Est Creatinine Clear Calc Drug Dose 28.4 ml/min Estimated GFR () 31.8 Estimated GFR (Non- 27.5 BUN/Creatinine Ratio 3.9 Random Glucose 110 mg/dl Calcium Level 9.0 mg/dl Total Bilirubin 0.4 mg/dl Aspartate Amino Transf (AST/SGOT) 13 U/L Alanine Aminotransferase (ALT/SGPT) 7 U/L Alkaline Phosphatase 102 U/L Total Protein 7.2 gm/dl Albumin 2.6 gm/dl Globulin 4.6 gm/dl Albumin/Globulin Ratio 0.6 Bedside Glucose 100 mg/dl 190 mg/dl 189 mg/dl Assessment and Plan (1) Bacteremia associated with intravascular line Likely source from dialysis catheter Cont rocephin and vancomycin at this time Dr Monk consulted Blood cx pos for enterobacter cloaca, repeat blood cx NGTD No leukocytosis or fevers noted CHRISTIN Mora (mom) would like to think about whether she wants line exchanged and continued antibx, agree to cont current tx at this time (2) Delirium Secondary to his bacteremia as stated above in addition to ESRD and cardiomyopathy Continue antibiotics Poor prognosis Palliative care consultation was placed for goals of care discussion (3) Coronary artery disease Status: Chronic Stable Held meds for parameters Pt on/off refusing meds Noted tachycardia (4) Obesity Status: Chronic (5) End-stage renal disease on hemodialysis Patient getting dialysis MWF Continue ativan 1 mg q 4hrs PRN anxiety Family still deciding whether to do TDC exchange or not (6) PAD (peripheral artery disease) Status: Chronic 56-year-old male with end-stage renal disease, severe peripheral vascular disease, diabetes mellitus, chronic,now presents with Enterobacter bacteremia and encephalopathy. Most likely source would be dialysis catheter, and likely will need to be changed. Right hand/wrist infection also possible source. Patient will be continued on IV ceftriaxone. We will continue to follow.
[2016-12-13] VITALS (24 sets, daily range): BP systolic 81–167; BP diastolic 43–100; PULSE 43–115; TEMP 36.5–36.8; O2SAT 91–99
[2016-12-13] MEDS: GABAPENTIN 300 MG CAP PO SCH ×3 (06:11→21:13)
[2016-12-13 07:04] LABS: HEMATOCRIT 34.2 % (42-52); MEAN CELL VOLUME 89.3 fL (80-100); MEAN CORPUSCULAR HEMOGLOBIN 27.7 pg (25-34); MEAN PLATELET VOLUME 9.4 fL (7.4-10.4); PLATELET COUNT 214 K/uL (130-400); RED BLOOD COUNT 3.83 M/uL (4.7-6.1); WHITE BLOOD COUNT 7.48 K/uL (4.8-10.8)
[2016-12-13 07:34] LABS: CALCIUM 9.3 mg/dl (8.5-10.1); CREATININE 3.8 mg/dl (0.60-1.40); POTASSIUM 3.8 mmol/L (3.5-5.1)
[2016-12-13 07:37] LABS: ALB/GLOB RATIO 0.7 (0.9-2)
[2016-12-13 07:41] LABS: BASO % 0.3 %; BASO ABS # 0.02 K/uL (0-0.2); COMPLETE YES; EOS % 0.5 %; IG% 0.7 %; LYMPH % 18.3 %; LYMPH ABS # 1.37 K/uL (1.2-3.4); MONO % 11.5 %; NEUT % 68.7 %
[2016-12-13] MEDS: CALCIUM ACETATE 667MG GELCAP PO SCH ×3 (08:00→18:26)
[2016-12-13] MEDS ORDERED: HEPARIN SOD (PORCINE) 1000 UNIT/ML 10 ML VIAL IV SCH (08:00)
[2016-12-13] MEDS: INSULIN ASPART 100 UNITS/ML 3 ML PEN SC SCH ×4 (08:54→21:00)
--- NOTE | 2016-12-13 08:58 | Pharmacy Progress Note ---
Pharmacy Abx Dose Short Note Date of Service Dec 13, 2016. Assessment & Plan Assessment 56 year old male receiving vancomycin IV for chronic suppressive therapy of discitis / osteomyelitis as well as ceftriaxone IV for treatment of enterobacter cloacae bacteremia, in the setting of possible HD cath infection, possible aspiration pnx and possible UTI Plan Vancomycin * Random level of 22.4 mcg/mL drawn with AM labs today is supratherapeutic * Vancomycin is being dosed empirically based upon random levels * Patient is scheduled to have HD treatment today. Would expect HD to remove vancomycin. Will give 500mg IV x 1 in minimum volume AFTER HD * Will order random level with AM labs on Friday as this is when he is due for next HD treatment * The current plan is to redose vanco when level 15-20 or anticipated to be between 15-20 after a HD session * Vancomycin is being used for chronic suppressive therapy in this patient Pharmacy will continue to follow and will adjust dose/frequency as necessary. Thank you.
[2016-12-13] MEDS: LACTOBACILLUS ACIDOPHILUS (FLORANEX) TAB PO SCH ×3 (09:00→20:02)
[2016-12-13] MEDS: LORATADINE 10 MG TAB PO SCH (09:00)
[2016-12-13] MEDS: DOCUSATE SODIUM 100 MG CAP PO SCH ×2 (09:00→20:01)
[2016-12-13] MEDS: DOCUSATE SODIUM/SENNA 50/8.6MG TAB PO SCH ×2 (09:00→20:02)
[2016-12-13] MEDS: LACTULOSE SYRUP 30 GM/45 ML UDP PO SCH ×3 (09:00→20:01)
[2016-12-13] MEDS: POLYETHYLENE (MIRALAX) 17 GM PACK PO SCH ×2 (09:00→20:02)
[2016-12-13] MEDS: METOPROLOL SUCC 25MG EXT REL TAB PO SCH ×2 (09:00→20:01)
[2016-12-13] MEDS: CHOLECALCIFEROL 1000 INTER.UNIT TAB PO SCH (09:00)
[2016-12-13] MEDS: ASPIRIN 81 MG ECTAB PO SCH (09:00)
[2016-12-13] MEDS: ASCORBIC ACID 500 MG TAB PO SCH (09:00)
[2016-12-13] MEDS: FERROUS SULFATE 325 MG TAB PO SCH (09:00)
[2016-12-13] MEDS: HEPARIN SOD (PORCINE) 1000 UNIT/ML 10 ML VIAL IV SCH ×2 (09:03→10:00)
[2016-12-13] MEDS: LORAZEPAM 0.5 MG TAB PO SCH ×3 (09:05→19:50)
[2016-12-13] MEDS: OXYCODONE HCL 40 MG TABCR (OXYCONTIN) PO SCH ×2 (09:05→19:55)
[2016-12-13] MEDS: BOOST GLUCOSE CONTROL PO SCH ×3 (09:06→18:26)
[2016-12-13] MEDS: FLUTICASONE/SALMETEROL 250/50 (ADVAIR) 14 PUFF/1 INHALER INH SCH ×2 (09:06→20:01)
[2016-12-13] MEDS: SERTRALINE HCL 50 MG TAB PO SCH (09:07)
[2016-12-13] MEDS: DEXAMETHASONE 1 MG TAB PO SCH (09:08)
[2016-12-13] MEDS: ALBUMIN HUMAN 25% 12.5 GM/50 ML VIAL IV SCH ×2 (09:45→11:00)
[2016-12-13] MEDS ORDERED: EPOETIN ALFA 10,000 UNITS/ML VIAL IV. ONE (10:00)
--- NOTE | 2016-12-13 10:00 | Nephrology Progress Note ---
Nephrology Progress Note Date of Service: Dec 13, 2016. Subjective sedated adn slightly confused this am again > at times refusing pills, disinclined to do TDC removal / line holiday and family wants more time to consider Objective Date Time Temp Pulse Resp B/P (MAP) Pulse Ox O2 Delivery O2 Flow Rate FiO2 12/13/16 09:30 109 138/100 12/13/16 09:15 83 125/76 12/13/16 09:03 78 120/77 12/13/16 07:34 36.5 81 20 125/76 (92) 92 Room Air 12/13/16 00:30 Room Air 12/13/16 00:20 36.6 82 18 103/66 (78) 91 Room Air 12/12/16 21:04 92 18 96/60 (72) 12/12/16 16:00 95 Room Air 12/12/16 13:57 36.8 109 18 102/60 (74) 95 12/12/16 13:36 37.0 99 20 95 12/12/16 12:00 Room Air 12/12/16 11:45 37.0 121 20 100/66 (77) 95 Room Air Physical Exam: General Appearance: + obese (on RA , answers in monosyllables; oriented to self /place), tired but rouseable Eyes: EOMI ENT: hearing grossly normal Neck: supple Respiratory/Chest: no respiratory distress, + decreased breath sounds Cardiovascular: regular rate, rhythm, + systolic murmur Abdomen: normal bowel sounds, non tender, soft Extremities: + pertinent finding (BL AKA; AVF L prox arm w/ slightly weak T/b) ; L 2nd MTP joint w/ less sore/ red swollen hand Neurologic/Psych: fluent speech, tired Skin: warm/dry, + pallor Current Inpatient Medications Medications (Trade) Dose Ordered Sig/Edin Route Start Time Stop Time Status Last Admin Dose Admin Acetaminophen (Tylenol Tab) 650 mg Q4H PRN PO 12/07/16 01:00 01/06/17 00:59 Polyethylene (Miralax Powder Packet) 17 gm BID PO 12/07/16 09:00 01/06/17 08:59 12/12/16 09:00 17 GM Ascorbic Acid (Vitamin C Tab) 500 mg MoWeFr@0900 PO 12/09/16 09:00 01/08/17 08:59 Aspirin (Ecotrin Tab) 81 mg DAILY PO 12/07/16 09:00 01/06/17 08:59 12/10/16 08:23 81 MG Atorvastatin Calcium (Lipitor Tab) 40 mg HS PO 12/07/16 21:00 01/06/17 20:59 12/12/16 20:46 40 MG Calcium Acetate (Phoslo Cap) 1,334 mg TIDM PO 12/07/16 08:00 01/06/17 07:59 12/12/16 08:59 1,334 MG Salmeterol Xinafoate/ Fluticasone (Advair Diskus 250/50 Inh) 1 puff BID INH 12/07/16 09:00 01/06/17 08:59 12/13/16 09:06 1 PUFF Gabapentin (Neurontin Cap) 300 mg Q8H PO 12/07/16 06:00 01/06/17 05:59 12/13/16 06:11 300 MG Albuterol/ Ipratropium (Combivent Respimat Inh) 1 puffs QID PRN INH 12/07/16 01:30 01/06/17 01:29 Lactobacillus Acidophilus (Floranex Tab) 4 tab TID PO 12/07/16 09:00 01/06/17 08:59 12/12/16 20:47 4 TAB Loratadine (Claritin Tab) 10 mg DAILY PO 12/07/16 09:00 01/06/17 08:59 12/12/16 09:01 10 MG Lorazepam (Ativan Tab) 0.5 mg TID PO 12/07/16 09:00 01/06/17 08:59 12/13/16 09:05 0.5 MG Magnesium Hydroxide (Milk Of Magnesia Susp) 30 ml UD PRN PO 12/07/16 01:30 01/06/17 01:29 Metoprolol Succinate (Toprol Xl Tab) 25 mg BID PO 12/07/16 09:00 01/06/17 08:59 12/12/16 09:01 25 MG Oxycodone HCl (Oxycontin Tab) 40 mg Q12 PO 12/07/16 09:00 12/21/16 08:59 12/13/16 09:05 40 MG Senna/Docusate Sodium (Senokot S Tab) 1 tab BID PO 12/07/16 09:00 01/06/17 08:59 12/12/16 20:47 1 TAB Sertraline HCl (Zoloft Tab) 50 mg QAM PO 12/07/16 09:00 01/06/17 08:59 12/13/16 09:07 50 MG Cholecalciferol (Vitamin D Tab) 5,000 inter.unit DAILY PO 12/07/16 09:00 01/06/17 08:59 12/12/16 09:00 5,000 INTER.UNIT Dexamethasone (Decadron Tab) 2 mg DAILY PO 12/07/16 09:00 01/06/17 08:59 12/13/16 09:08 2 MG Ferrous Sulfate (Feosol Tab) 325 mg QAM PO 12/07/16 09:00 01/06/17 08:59 12/10/16 08:23 325 MG Pantoprazole Sodium (Protonix Tab) 40 mg SuTuThSa@0900 PO 12/07/16 09:00 01/06/17 08:59 12/12/16 09:01 40 MG Oxycodone HCl (Roxicodone Immediate Rel Tab) 10 mg Q6 PRN PO 12/07/16 01:30 01/06/17 01:29 12/12/16 00:37 10 MG Miscellaneous (Iv Fluids Completed) 1 ea PRN PRN N/A 12/07/16 01:45 12/07/17 01:44 Insulin Glargine (Lantus Solostar Pen) 5 units HS SC 12/07/16 21:00 01/06/17 20:59 12/12/16 21:01 5 UNITS Morphine Sulfate (MoRPHine SULFATE INJ) 4 mg Q4H PRN IV 12/07/16 19:00 12/21/16 18:59 12/12/16 12:45 4 MG Vancomycin HCl (Consult) 1 ea UD PRN N/A 12/08/16 00:30 01/07/17 00:29 Docusate Sodium (coLACE CAP) 100 mg BID PO 12/08/16 21:00 01/07/17 20:59 12/12/16 20:46 100 MG Lactulose (Chronulac Syrup) 30 gm TID PO 12/08/16 14:00 01/07/17 13:59 12/12/16 20:42 30 GM Hydromorphone HCl (Dilaudid Inj) 2 mg Q3HWA PRN IV 12/08/16 09:45 12/22/16 09:44 12/10/16 00:46 2 MG Insulin Aspart (novoLOG ASPART) SLIDING SCALE If C... ACHS SC 12/09/16 11:00 01/08/17 10:59 12/12/16 21:00 1 UNITS Glucose (Glucose 40% Gel) 15-30 GRAMS 15 GRAMS... UD PRN PO 12/09/16 08:00 01/08/17 07:59 Glucose (Glucose Chew Tab) 4-8 Tablets 4 Tabl... UD PRN PO 12/09/16 08:00 01/08/17 07:59 Dextrose (Dextrose 50% 50ML Syringe) 25-50ML OF 50% DW IV FOR... UD PRN IV 12/09/16 08:00 01/08/17 07:59 Glucagon (Glucagon Inj) 1 mg UD PRN SQ 12/09/16 08:00 01/08/17 07:59 Ceftriaxone Sodium 2000 mg/ Dextrose 70 ml @ 100 mls/hr Q24H IV 12/09/16 20:00 12/21/16 19:59 12/12/16 19:55 100 MLS/HR Lorazepam (Ativan Inj) 1 mg Q4H PRN IV 12/09/16 16:15 01/08/17 16:14 12/12/16 18:51 1 MG Enteral Nutritional Formula (Boost Glucose Control) 1 can TIDM PO 12/11/16 16:45 01/10/17 16:44 12/13/16 09:06 1 CAN Heparin Sodium (Porcine) (Heparin Iv Bolus) 1,000 unit TODAY@0800 IV 12/13/16 08:00 12/13/16 23:59 Heparin Sodium (Porcine) (Heparin Iv Bolus) 400 unit TODAY@0800,0900,1000 IV 12/13/16 08:00 12/13/16 23:59 Albumin Human (Albumin 25%) 12.5 gm TODAY@0800,1000 IV 12/13/16 08:00 12/13/16 23:59 12/13/16 09:45 12.5 GM Vancomycin HCl 500 mg/Sodium Chloride 110 ml @ 55 mls/hr AFTER HEMODIALYSIS IV 12/13/16 16:00 12/13/16 23:59 Last 24 Hours Test 12/12/16 11:28 12/12/16 20:05 12/13/16 06:32 Bedside Glucose 190 mg/dl 189 mg/dl White Blood Count 7.48 K/uL Red Blood Count 3.83 M/uL Hemoglobin 10.6 g/dL Hematocrit 34.2 % Mean Corpuscular Volume 89.3 fL Mean Corpuscular Hemoglobin 27.7 pg Mean Corpuscular Hemoglobin Concent 31.0 g/dl Platelet Count 214 K/uL Mean Platelet Volume 9.4 fL Neutrophils (%) (Auto) 68.7 % Lymphocytes (%) (Auto) 18.3 % Monocytes (%) (Auto) 11.5 % Eosinophils (%) (Auto) 0.5 % Basophils (%) (Auto) 0.3 % Neutrophils # (Auto) 5.14 K/uL Lymphocytes # (Auto) 1.37 K/uL Monocytes # (Auto) 0.86 K/uL Eosinophils # (Auto) 0.04 K/uL Basophils # (Auto) 0.02 K/uL RDW Standard Deviation 48.3 fL RDW Coefficient of Variation 14.8 % Immature Granulocyte % (Auto) 0.7 % Immature Granulocyte # (Auto) 0.05 K/uL Sodium Level 139 mmol/L Potassium Level 3.8 mmol/L Chloride Level 101 mmol/L Carbon Dioxide Level 28 mmol/L Anion Gap 10.0 mmol/L Blood Urea Nitrogen 19 mg/dl Creatinine 3.80 mg/dl Est Creatinine Clear Calc Drug Dose 18.7 ml/min Estimated GFR () 19.2 Estimated GFR (Non- 16.6 BUN/Creatinine Ratio 5.0 Random Glucose 111 mg/dl Calcium Level 9.3 mg/dl Total Bilirubin 0.4 mg/dl Aspartate Amino Transf (AST/SGOT) 11 U/L Alanine Aminotransferase (ALT/SGPT) 8 U/L Alkaline Phosphatase 105 U/L Total Protein 6.8 gm/dl Albumin 2.7 gm/dl Globulin 4.1 gm/dl Albumin/Globulin Ratio 0.7 Random Vancomycin Level 22.4 mcg/ml Assessment & Plan 56 y/o M [facility] resident w/ ESRD on MWF HD TDC dependent/maturing AVF, ischemic [employer] EF 15%, s/p BL AKA admitted overnight for evaluation of delirium> has E cloacae bacteremia + w/in 18 hrs of presentation. ESRD -for HD today; albumin w/ HD to optimize fluid removal -defer to primary service when family ready for TDC removal then pt needs gen surg consult; plan if they agree line holiday over weekend and TDC replacement versus temp cath on 12/16 or 12/17 Anemia of chronic disease -high dose epo w/ HD Encephalopathy, E cloacae bacteremia -f/u pending cxs; aspiration pneumonia + UTI in setting chronic fole/ GNR bacteremia; empiric vanco/zosyn >> inf dzs favors TDC removal -f/u cxs are ngtd Appreciate c/s; will follow with you
[2016-12-13] MEDS ORDERED: EPOETIN ALFA INJ 12,000 UNITS in SYRINGE 0 ML IV. SCH (11:00)
[2016-12-13] MEDS: LORAZEPAM INJ 1 MG in SYRINGE 0.5 ML IV PRN ×3 (11:33→22:58)
[2016-12-13] MEDS ORDERED: VANCOMYCIN INJ 500 MG in SODIUM CHLORIDE 0.9% 100ML 100 ML IV SCH (16:00)
[2016-12-13] MEDS: HYDROmorphone INJ 2 MG/ML SYR/VIAL IV PRN (16:06)
--- NOTE | 2016-12-13 16:14 | Progress Note ---
Subjective Date of Service: Dec 13, 2016. Subjective Pt evaluation today including: conversation w/ patient, physical exam, chart review, lab review, review of studies, review of inpatient medication list Resting in bed comfortably COnfusion noted still DIalysis today Problem List Medical Problems: (1) Altered mental status Status: Acute (2) Change in mental status Status: Acute (3) Diabetes mellitus out of control Status: Acute (4) Elevated troponin Status: Acute (5) Elevated troponin Status: Acute (6) Elevated troponin Status: Acute (7) End stage renal failure on dialysis Status: Acute (8) Failure of outpatient treatment Status: Acute (9) Hyperkalemia Status: Acute (10) Hypocalcemia Status: Acute (11) Hypoglycemia Status: Acute (12) Hypokalemia Status: Acute (13) Hyponatremia Status: Acute (14) Hypotension Status: Acute (15) Hypothermia Status: Acute (16) Leukocytosis Status: Acute (17) Mass of spine Status: Acute (18) Opiate overdose Status: Acute (19) Renal failure Status: Acute (20) Renal insufficiency Status: Acute (21) Sepsis Status: Acute (22) Ulcer of toe Status: Acute (23) Ulcers of both lower extremities Status: Acute (24) UTI (urinary tract infection) Status: Acute (25) UTI (urinary tract infection) Status: Acute (26) UTI (urinary tract infection) Status: Acute Review of Systems Unable to obtain due to confusion Objective Vital Signs Date Time Temp Pulse Resp B/P (MAP) Pulse Ox O2 Delivery O2 Flow Rate FiO2 12/13/16 15:26 36.6 115 20 125/81 (96) 99 Room Air 12/13/16 12:48 36.6 105 150/78 (102) 12/13/16 12:30 55 114/43 12/13/16 12:15 43 108/89 12/13/16 12:00 96 114/79 12/13/16 11:45 57 120/100 12/13/16 11:30 77 86/70 12/13/16 11:15 101 81/54 12/13/16 11:00 105 98/74 12/13/16 10:45 109 99/71 12/13/16 10:30 62 167/95 12/13/16 10:15 111 102/74 12/13/16 10:00 111 133/78 12/13/16 09:45 107 150/88 12/13/16 09:30 109 138/100 12/13/16 09:15 83 125/76 12/13/16 09:03 78 120/77 12/13/16 08:55 36.6 81 130/83 (99) 12/13/16 08:00 92 Room Air 2.0 12/13/16 07:34 36.5 81 20 125/76 (92) 92 Room Air 12/13/16 00:30 Room Air 12/13/16 00:20 36.6 82 18 103/66 (78) 91 Room Air 12/12/16 21:04 92 18 96/60 (72) Physical Exam General Appearance: WD/WN, + mild distress Eyes: normal inspection, PERRL, EOMI, sclerae normal Neck: supple, no adenopathy, thyroid normal, no JVD Respiratory/Chest: chest non-tender, no respiratory distress, no accessory muscle use, + decreased breath sounds Cardiovascular: regular rate, rhythm, no edema, no gallop, no JVD Abdomen: normal bowel sounds, non tender, soft, no organomegaly Neurologic/Psychiatric: no motor/sensory deficits, alert, + disoriented Laboratory Results Last 24 Hours Test 12/12/16 20:05 12/13/16 06:32 12/13/16 11:14 Bedside Glucose 189 mg/dl 119 mg/dl White Blood Count 7.48 K/uL Red Blood Count 3.83 M/uL Hemoglobin 10.6 g/dL Hematocrit 34.2 % Mean Corpuscular Volume 89.3 fL Mean Corpuscular Hemoglobin 27.7 pg Mean Corpuscular Hemoglobin Concent 31.0 g/dl Platelet Count 214 K/uL Mean Platelet Volume 9.4 fL Neutrophils (%) (Auto) 68.7 % Lymphocytes (%) (Auto) 18.3 % Monocytes (%) (Auto) 11.5 % Eosinophils (%) (Auto) 0.5 % Basophils (%) (Auto) 0.3 % Neutrophils # (Auto) 5.14 K/uL Lymphocytes # (Auto) 1.37 K/uL Monocytes # (Auto) 0.86 K/uL Eosinophils # (Auto) 0.04 K/uL Basophils # (Auto) 0.02 K/uL RDW Standard Deviation 48.3 fL RDW Coefficient of Variation 14.8 % Immature Granulocyte % (Auto) 0.7 % Immature Granulocyte # (Auto) 0.05 K/uL Sodium Level 139 mmol/L Potassium Level 3.8 mmol/L Chloride Level 101 mmol/L Carbon Dioxide Level 28 mmol/L Anion Gap 10.0 mmol/L Blood Urea Nitrogen 19 mg/dl Creatinine 3.80 mg/dl Est Creatinine Clear Calc Drug Dose 18.7 ml/min Estimated GFR () 19.2 Estimated GFR (Non- 16.6 BUN/Creatinine Ratio 5.0 Random Glucose 111 mg/dl Calcium Level 9.3 mg/dl Total Bilirubin 0.4 mg/dl Aspartate Amino Transf (AST/SGOT) 11 U/L Alanine Aminotransferase (ALT/SGPT) 8 U/L Alkaline Phosphatase 105 U/L Total Protein 6.8 gm/dl Albumin 2.7 gm/dl Globulin 4.1 gm/dl Albumin/Globulin Ratio 0.7 Random Vancomycin Level 22.4 mcg/ml Assessment and Plan (1) Bacteremia associated with intravascular line Assessment & Plan: Likely source from dialysis catheter Cont rocephin and vancomycin at this time Dr Monk consulted Blood cx pos for enterobacter cloaca, repeat blood cx NGTD No leukocytosis or fevers noted CHRISTIN Mora (mom) would like to think about whether she wants line exchanged and continued antibx, agree to cont current tx at this time Vascular surgery off at this time, will consult on friday for line exchange (2) Delirium Assessment & Plan: Secondary to his bacteremia as stated above in addition to ESRD and cardiomyopathy Continue antibiotics Poor prognosis Palliative care consultation was placed for goals of care discussion (3) Coronary artery disease (4) Obesity (5) End-stage renal disease on hemodialysis Assessment & Plan: Patient getting dialysis MWF Continue ativan 1 mg q 4hrs PRN anxiety Family decided for line exchange and continued antibx (6) PAD (peripheral artery disease) Continued [facility] stay due to: multiple IV medications needed, other (ongoing acute care) Discharge planning: residential facility
--- NOTE | 2016-12-13 17:54 | Infectious Disease Progress Nt ---
Progress Note Date of Service Dec 13, 2016. Subjective Pt evaluation today including: conversation w/ patient, physical exam, chart review, lab review, review of studies, conversation w/ ergonomics consultant, review of inpatient medication list Remains confused, less agitated, no fever. All Other Systems: Reviewed and Negative Medications Current Inpatient Medications Medications (Trade) Dose Ordered Sig/Edin Route Start Time Stop Time Status Last Admin Dose Admin Acetaminophen (Tylenol Tab) 650 mg Q4H PRN PO 12/07/16 01:00 01/06/17 00:59 Polyethylene (Miralax Powder Packet) 17 gm BID PO 12/07/16 09:00 01/06/17 08:59 12/12/16 09:00 17 GM Ascorbic Acid (Vitamin C Tab) 500 mg MoWeFr@0900 PO 12/09/16 09:00 01/08/17 08:59 Aspirin (Ecotrin Tab) 81 mg DAILY PO 12/07/16 09:00 01/06/17 08:59 12/10/16 08:23 81 MG Atorvastatin Calcium (Lipitor Tab) 40 mg HS PO 12/07/16 21:00 01/06/17 20:59 12/12/16 20:46 40 MG Calcium Acetate (Phoslo Cap) 1,334 mg TIDM PO 12/07/16 08:00 01/06/17 07:59 12/12/16 08:59 1,334 MG Salmeterol Xinafoate/ Fluticasone (Advair Diskus 250/50 Inh) 1 puff BID INH 12/07/16 09:00 01/06/17 08:59 12/13/16 09:06 1 PUFF Gabapentin (Neurontin Cap) 300 mg Q8H PO 12/07/16 06:00 01/06/17 05:59 12/13/16 06:11 300 MG Albuterol/ Ipratropium (Combivent Respimat Inh) 1 puffs QID PRN INH 12/07/16 01:30 01/06/17 01:29 Lactobacillus Acidophilus (Floranex Tab) 4 tab TID PO 12/07/16 09:00 01/06/17 08:59 12/12/16 20:47 4 TAB Loratadine (Claritin Tab) 10 mg DAILY PO 12/07/16 09:00 01/06/17 08:59 12/12/16 09:01 10 MG Lorazepam (Ativan Tab) 0.5 mg TID PO 12/07/16 09:00 01/06/17 08:59 12/13/16 09:05 0.5 MG Magnesium Hydroxide (Milk Of Magnesia Susp) 30 ml UD PRN PO 12/07/16 01:30 01/06/17 01:29 Metoprolol Succinate (Toprol Xl Tab) 25 mg BID PO 12/07/16 09:00 01/06/17 08:59 12/12/16 09:01 25 MG Oxycodone HCl (Oxycontin Tab) 40 mg Q12 PO 12/07/16 09:00 12/21/16 08:59 12/13/16 09:05 40 MG Senna/Docusate Sodium (Senokot S Tab) 1 tab BID PO 12/07/16 09:00 01/06/17 08:59 12/12/16 20:47 1 TAB Sertraline HCl (Zoloft Tab) 50 mg QAM PO 12/07/16 09:00 01/06/17 08:59 12/13/16 09:07 50 MG Cholecalciferol (Vitamin D Tab) 5,000 inter.unit DAILY PO 12/07/16 09:00 01/06/17 08:59 12/12/16 09:00 5,000 INTER.UNIT Dexamethasone (Decadron Tab) 2 mg DAILY PO 12/07/16 09:00 01/06/17 08:59 12/13/16 09:08 2 MG Ferrous Sulfate (Feosol Tab) 325 mg QAM PO 12/07/16 09:00 01/06/17 08:59 12/10/16 08:23 325 MG Pantoprazole Sodium (Protonix Tab) 40 mg SuTuThSa@0900 PO 12/07/16 09:00 01/06/17 08:59 12/12/16 09:01 40 MG Oxycodone HCl (Roxicodone Immediate Rel Tab) 10 mg Q6 PRN PO 12/07/16 01:30 01/06/17 01:29 12/12/16 00:37 10 MG Miscellaneous (Iv Fluids Completed) 1 ea PRN PRN N/A 12/07/16 01:45 12/07/17 01:44 Insulin Glargine (Lantus Solostar Pen) 5 units HS SC 12/07/16 21:00 01/06/17 20:59 12/12/16 21:01 5 UNITS Morphine Sulfate (MoRPHine SULFATE INJ) 4 mg Q4H PRN IV 12/07/16 19:00 12/21/16 18:59 12/12/16 12:45 4 MG Vancomycin HCl (Consult) 1 ea UD PRN N/A 12/08/16 00:30 01/07/17 00:29 Docusate Sodium (coLACE CAP) 100 mg BID PO 12/08/16 21:00 01/07/17 20:59 12/12/16 20:46 100 MG Lactulose (Chronulac Syrup) 30 gm TID PO 12/08/16 14:00 01/07/17 13:59 12/12/16 20:42 30 GM Hydromorphone HCl (Dilaudid Inj) 2 mg Q3HWA PRN IV 12/08/16 09:45 12/22/16 09:44 12/13/16 16:06 2 MG Insulin Aspart (novoLOG ASPART) SLIDING SCALE If C... ACHS SC 12/09/16 11:00 01/08/17 10:59 12/12/16 21:00 1 UNITS Glucose (Glucose 40% Gel) 15-30 GRAMS 15 GRAMS... UD PRN PO 12/09/16 08:00 01/08/17 07:59 Glucose (Glucose Chew Tab) 4-8 Tablets 4 Tabl... UD PRN PO 12/09/16 08:00 01/08/17 07:59 Dextrose (Dextrose 50% 50ML Syringe) 25-50ML OF 50% DW IV FOR... UD PRN IV 12/09/16 08:00 01/08/17 07:59 Glucagon (Glucagon Inj) 1 mg UD PRN SQ 12/09/16 08:00 01/08/17 07:59 Ceftriaxone Sodium 2000 mg/ Dextrose 70 ml @ 100 mls/hr Q24H IV 12/09/16 20:00 12/21/16 19:59 12/12/16 19:55 100 MLS/HR Enteral Nutritional Formula (Boost Glucose Control) 1 can TIDM PO 12/11/16 16:45 01/10/17 16:44 12/13/16 09:06 1 CAN Heparin Sodium (Porcine) (Heparin Iv Bolus) 1,000 unit TODAY@0800 IV 12/13/16 08:00 12/13/16 23:59 Heparin Sodium (Porcine) (Heparin Iv Bolus) 400 unit TODAY@0800,0900,1000 IV 12/13/16 08:00 12/13/16 23:59 Albumin Human (Albumin 25%) 12.5 gm TODAY@0800,1000 IV 12/13/16 08:00 12/13/16 23:59 12/13/16 11:00 12.5 GM Vancomycin HCl 500 mg/Sodium Chloride 110 ml @ 55 mls/hr AFTER HEMODIALYSIS IV 12/13/16 16:00 12/13/16 23:59 Epoetin Simone 60101 units/ Syringe 0.6 ml @ 1 mls/min TODAY@1100 IV. 12/13/16 11:00 12/13/16 23:59 12/13/16 12:12 1 MLS/MIN Lorazepam 1 mg/ Syringe 1 ml @ 1 mls/min Q4H PRN IV 12/13/16 11:30 01/12/17 11:29 12/13/16 11:33 1 MLS/MIN Objective Vital Signs Date Time Temp Pulse Resp B/P (MAP) Pulse Ox O2 Delivery O2 Flow Rate FiO2 12/13/16 16:00 99 Room Air 12/13/16 15:26 36.6 115 20 125/81 (96) 99 Room Air 12/13/16 12:48 36.6 105 150/78 (102) 12/13/16 12:30 55 114/43 12/13/16 12:15 43 108/89 12/13/16 12:00 96 114/79 12/13/16 11:45 57 120/100 12/13/16 11:30 77 86/70 12/13/16 11:15 101 81/54 12/13/16 11:00 105 98/74 12/13/16 10:45 109 99/71 12/13/16 10:30 62 167/95 12/13/16 10:15 111 102/74 12/13/16 10:00 111 133/78 12/13/16 09:45 107 150/88 12/13/16 09:30 109 138/100 12/13/16 09:15 83 125/76 7/28/17 09:03 78 120/77 12/13/16 08:55 36.6 81 130/83 (99) 12/13/16 08:00 92 Room Air 2.0 12/13/16 07:34 36.5 81 20 125/76 (92) 92 Room Air 12/13/16 00:30 Room Air 12/13/16 00:20 36.6 82 18 103/66 (78) 91 Room Air 12/12/16 21:04 92 18 96/60 (72) Physical Exam General Appearance: no apparent distress, + pertinent finding (chronically ill- appearing) Eyes: normal inspection, EOMI, sclerae normal ENT: normal ENT inspection, pharynx normal Neck: supple, no adenopathy, thyroid normal, trachea midline Respiratory/Chest: chest non-tender, lungs clear, normal breath sounds, no respiratory distress Cardiovascular: regular rate, rhythm, no gallop, no murmur Abdomen: normal bowel sounds, non tender, soft, no organomegaly Extremities: non-tender, + pertinent finding (bilateral AKAs) Neurologic/Psychiatric: alert, + disoriented Skin: normal color, no rash Lymphatic: no adenopathy Laboratory Results Last 24 Hours Test 12/12/16 20:05 12/13/16 06:32 12/13/16 11:14 12/13/16 16:21 Bedside Glucose 189 mg/dl 119 mg/dl 150 mg/dl White Blood Count 7.48 K/uL Red Blood Count 3.83 M/uL Hemoglobin 10.6 g/dL Hematocrit 34.2 % Mean Corpuscular Volume 89.3 fL Mean Corpuscular Hemoglobin 27.7 pg Mean Corpuscular Hemoglobin Concent 31.0 g/dl Platelet Count 214 K/uL Mean Platelet Volume 9.4 fL Neutrophils (%) (Auto) 68.7 % Lymphocytes (%) (Auto) 18.3 % Monocytes (%) (Auto) 11.5 % Eosinophils (%) (Auto) 0.5 % Basophils (%) (Auto) 0.3 % Neutrophils # (Auto) 5.14 K/uL Lymphocytes # (Auto) 1.37 K/uL Monocytes # (Auto) 0.86 K/uL Eosinophils # (Auto) 0.04 K/uL Basophils # (Auto) 0.02 K/uL RDW Standard Deviation 48.3 fL RDW Coefficient of Variation 14.8 % Immature Granulocyte % (Auto) 0.7 % Immature Granulocyte # (Auto) 0.05 K/uL Sodium Level 139 mmol/L Potassium Level 3.8 mmol/L Chloride Level 101 mmol/L Carbon Dioxide Level 28 mmol/L Anion Gap 10.0 mmol/L Blood Urea Nitrogen 19 mg/dl Creatinine 3.80 mg/dl Est Creatinine Clear Calc Drug Dose 18.7 ml/min Estimated GFR () 19.2 Estimated GFR (Non- 16.6 BUN/Creatinine Ratio 5.0 Random Glucose 111 mg/dl Calcium Level 9.3 mg/dl Total Bilirubin 0.4 mg/dl Aspartate Amino Transf (AST/SGOT) 11 U/L Alanine Aminotransferase (ALT/SGPT) 8 U/L Alkaline Phosphatase 105 U/L Total Protein 6.8 gm/dl Albumin 2.7 gm/dl Globulin 4.1 gm/dl Albumin/Globulin Ratio 0.7 Random Vancomycin Level 22.4 mcg/ml Assessment and Plan (1) Bacteremia associated with intravascular line Likely source from dialysis catheter Cont rocephin and vancomycin at this time Dr Monk consulted Blood cx pos for enterobacter cloaca, repeat blood cx NGTD No leukocytosis or fevers noted CHRISTIN Mora (mom) would like to think about whether she wants line exchanged and continued antibx, agree to cont current tx at this time Vascular surgery off at this time, will consult on friday for line exchange (2) Delirium Secondary to his bacteremia as stated above in addition to ESRD and cardiomyopathy Continue antibiotics Poor prognosis Palliative care consultation was placed for goals of care discussion (3) Coronary artery disease Status: Chronic (4) Obesity Status: Chronic (5) End-stage renal disease on hemodialysis Patient getting dialysis MWF Continue ativan 1 mg q 4hrs PRN anxiety Family decided for line exchange and continued antibx (6) PAD (peripheral artery disease) Status: Chronic 56-year-old male with end-stage renal disease, severe peripheral vascular disease, diabetes mellitus, chronic,now presents with Enterobacter bacteremia and encephalopathy. Most likely source would be dialysis catheter, and likely will need to be changed. Right hand/wrist infection also possible source. Patient will be continued on IV ceftriaxone. We will continue to follow.
[2016-12-13] MEDS: CEFTRIAXONE SOD INJ 2,000 MG in DEXTROSE 5% 50ML 50 ML IV SCH (19:50)
[2016-12-13] MEDS: ATORVASTATIN 40 MG TAB PO SCH (20:02)
[2016-12-13] MEDS: INSULIN GLARGINE SOLOSTAR 100 UNITS/ML 3 ML PEN SC SCH (21:12)
[2016-12-14] MEDS: LORAZEPAM INJ 1 MG in SYRINGE 0.5 ML IV PRN (04:22)
[2016-12-14] MEDS: GABAPENTIN 300 MG CAP PO SCH ×3 (05:13→20:38)
[2016-12-14 07:48] VITALS: BP 106/61; PULSE 99; TEMP 37.1; O2SAT 94
[2016-12-14] MEDS: FERROUS SULFATE 325 MG TAB PO SCH (08:03)
[2016-12-14] MEDS: DOCUSATE SODIUM 100 MG CAP PO SCH ×3 (08:04→20:35)
[2016-12-14] MEDS: FLUTICASONE/SALMETEROL 250/50 (ADVAIR) 14 PUFF/1 INHALER INH SCH ×2 (08:04→20:35)
[2016-12-14] MEDS: CALCIUM ACETATE 667MG GELCAP PO SCH ×4 (08:04→17:42)
[2016-12-14] MEDS: DEXAMETHASONE 1 MG TAB PO SCH (08:04)
[2016-12-14] MEDS: LACTULOSE SYRUP 30 GM/45 ML UDP PO SCH ×4 (08:05→20:35)
[2016-12-14] MEDS: ASPIRIN 81 MG ECTAB PO SCH (08:05)
[2016-12-14] MEDS: SERTRALINE HCL 50 MG TAB PO SCH ×2 (08:06→08:47)
[2016-12-14] MEDS: PANTOprazole SOD 40 MG TAB PO SCH (08:06)
[2016-12-14] MEDS: DOCUSATE SODIUM/SENNA 50/8.6MG TAB PO SCH ×2 (08:06→20:36)
[2016-12-14] MEDS: CHOLECALCIFEROL 1000 INTER.UNIT TAB PO SCH (08:07)
[2016-12-14] MEDS: LACTOBACILLUS ACIDOPHILUS (FLORANEX) TAB PO SCH ×4 (08:07→20:35)
[2016-12-14] MEDS: LORATADINE 10 MG TAB PO SCH (08:08)
[2016-12-14] MEDS: POLYETHYLENE (MIRALAX) 17 GM PACK PO SCH ×2 (08:08→20:35)
[2016-12-14] MEDS: METOPROLOL SUCC 25MG EXT REL TAB PO SCH (08:08)
[2016-12-14 08:11] LABS: COMPLETE YES; EOS % 1.5 %; HEMATOCRIT 37.3 % (42-52); IG% 0.8 %; LYMPH % 17.4 %; LYMPH ABS # 1.27 K/uL (1.2-3.4); MEAN CELL VOLUME 89.7 fL (80-100); MEAN CORPUSCULAR HEMOGLOBIN 27.2 pg (25-34); MEAN CORPUSCULAR HGB CONC 30.3 g/dl (32-36); MEAN PLATELET VOLUME 9.2 fL (7.4-10.4); MONO % 16.7 %; NEUT % 63.6 %; PLATELET COUNT 210 K/uL (130-400); RED BLOOD COUNT 4.16 M/uL (4.7-6.1); WHITE BLOOD COUNT 7.31 K/uL (4.8-10.8)
[2016-12-14] MEDS: BOOST GLUCOSE CONTROL PO SCH ×4 (08:17→17:34)
[2016-12-14] MEDS: OXYCODONE HCL 40 MG TABCR (OXYCONTIN) PO SCH ×2 (08:17→20:31)
[2016-12-14] MEDS: LORAZEPAM 0.5 MG TAB PO SCH ×3 (08:17→20:31)
[2016-12-14] MEDS: INSULIN ASPART 100 UNITS/ML 3 ML PEN SC SCH ×4 (08:18→20:36)
[2016-12-14 09:19] LABS: BUN/CREATININE RATIO 3.2 (10-20); CALCIUM 9.3 mg/dl (8.5-10.1); CREATININE 2.8 mg/dl (0.60-1.40); POTASSIUM 3.1 mmol/L (3.5-5.1)
[2016-12-14 09:58] LABS: ALB/GLOB RATIO 0.7 (0.9-2)
--- NOTE | 2016-12-14 15:35 | Progress Note ---
Subjective Date of Service: Dec 14, 2016. Subjective Pt evaluation today including: conversation w/ patient, conversation w/ family , physical exam, chart review, lab review, review of studies, review of inpatient medication list Pt moaning and yelling in bed Confused and oriented only to self Medicated with ativan Problem List Medical Problems: (1) Altered mental status Status: Acute (2) Change in mental status Status: Acute (3) Diabetes mellitus out of control Status: Acute (4) Elevated troponin Status: Acute (5) Elevated troponin Status: Acute (6) Elevated troponin Status: Acute (7) End stage renal failure on dialysis Status: Acute (8) Failure of outpatient treatment Status: Acute (9) Hyperkalemia Status: Acute (10) Hypocalcemia Status: Acute (11) Hypoglycemia Status: Acute (12) Hypokalemia Status: Acute (13) Hyponatremia Status: Acute (14) Hypotension Status: Acute (15) Hypothermia Status: Acute (16) Leukocytosis Status: Acute (17) Mass of spine Status: Acute (18) Opiate overdose Status: Acute (19) Renal failure Status: Acute (20) Renal insufficiency Status: Acute (21) Sepsis Status: Acute (22) Ulcer of toe Status: Acute (23) Ulcers of both lower extremities Status: Acute (24) UTI (urinary tract infection) Status: Acute (25) UTI (urinary tract infection) Status: Acute (26) UTI (urinary tract infection) Status: Acute Review of Systems Unable to obtain due to dementia Objective Vital Signs Date Time Temp Pulse Resp B/P (MAP) Pulse Ox O2 Delivery O2 Flow Rate FiO2 12/14/16 08:00 Room Air 12/14/16 07:48 37.1 99 16 106/61 (76) 94 Room Air 12/14/16 00:00 Room Air 12/13/16 22:53 36.8 88 18 101/67 (78) 92 Room Air 12/13/16 21:00 103 135/87 (103) 12/13/16 20:30 Room Air 12/13/16 16:00 99 Room Air 12/13/16 15:26 36.6 115 20 125/81 (96) 99 Room Air Physical Exam General Appearance: WD/WN, + mild distress Eyes: normal inspection, PERRL, EOMI, sclerae normal Neck: supple, no adenopathy, thyroid normal, no JVD Respiratory/Chest: lungs clear, no respiratory distress, no accessory muscle use, + decreased breath sounds Cardiovascular: no edema, no gallop, no JVD, no murmur Abdomen: non tender, soft, no organomegaly, no pulsatile mass Neurologic/Psychiatric: no motor/sensory deficits, alert, + depressed affect, + disoriented Skin: normal color, warm/dry, no rash Lymphatic: no adenopathy Laboratory Results Last 24 Hours Test 12/13/16 16:21 12/13/16 20:48 12/14/16 07:15 12/14/16 08:16 Bedside Glucose 150 mg/dl 116 mg/dl 116 mg/dl White Blood Count 7.31 K/uL Red Blood Count 4.16 M/uL Hemoglobin 11.3 g/dL Hematocrit 37.3 % Mean Corpuscular Volume 89.7 fL Mean Corpuscular Hemoglobin 27.2 pg Mean Corpuscular Hemoglobin Concent 30.3 g/dl Platelet Count 210 K/uL Mean Platelet Volume 9.2 fL Neutrophils (%) (Auto) 63.6 % Lymphocytes (%) (Auto) 17.4 % Monocytes (%) (Auto) 16.7 % Eosinophils (%) (Auto) 1.5 % Basophils (%) (Auto) 0.0 % Neutrophils # (Auto) 4.65 K/uL Lymphocytes # (Auto) 1.27 K/uL Monocytes # (Auto) 1.22 K/uL Eosinophils # (Auto) 0.11 K/uL Basophils # (Auto) 0.00 K/uL RDW Standard Deviation 47.8 fL RDW Coefficient of Variation 14.7 % Immature Granulocyte % (Auto) 0.8 % Immature Granulocyte # (Auto) 0.06 K/uL Sodium Level 136 mmol/L Potassium Level 3.1 mmol/L Chloride Level 97 mmol/L Carbon Dioxide Level 31 mmol/L Anion Gap 8.0 mmol/L Blood Urea Nitrogen 9 mg/dl Creatinine 2.80 mg/dl Est Creatinine Clear Calc Drug Dose 25.3 ml/min Estimated GFR () 27.8 Estimated GFR (Non- 24.0 BUN/Creatinine Ratio 3.2 Random Glucose 103 mg/dl Calcium Level 9.3 mg/dl Total Bilirubin 0.4 mg/dl Aspartate Amino Transf (AST/SGOT) 12 U/L Alanine Aminotransferase (ALT/SGPT) 13 U/L Alkaline Phosphatase 99 U/L Total Protein 7.6 gm/dl Albumin 3.2 gm/dl Globulin 4.4 gm/dl Albumin/Globulin Ratio 0.7 Test 12/14/16 11:21 Bedside Glucose 131 mg/dl Assessment and Plan Bacteremia, suspected from TDC, with underlying encephalopathy Likely source from dialysis catheter Dr Monk consulted, blood cx pos for enterobacter cloaca, repeat blood cx NGTD on 12/09 Cont zosyn and vanc, appreciate ID recs on length of antibx No leukocytosis or fevers noted Family meeting with CHRISTIN Mora (mom) and sister Shun from palliative care. CHRISTIN does not want to consider hospice at this time, would like to go ahead with TDC exchange and continuation with antibiotics Vascular surgery off at this time, will consult Dr Bermudez on saturday 12/16 for line exchange Poor prognosis Diffuse cardiomyopathy presumed ischemic in nature with severe systolic CHF with known EF to be 15% Stable at this time Pt refuses meds on/off Convert lopressor PO to IV Pt takes ASA but usually refuses statin ESRD on HD Dialysis [facility] consulted Will hopefully undergo line exchange early next week Will consult Dr Bermudez who is away at this time, family updated PAD Hx of chronic osteoomyleitis Dispo: Back to [facility] after line exchange and antibx length procured Continued [facility] stay due to: multiple IV medications needed, other (ongoing acute care) Discharge planning: fdc facility
[2016-12-14 15:45] VITALS: BP 101/70; PULSE 94; TEMP 36.8; O2SAT 97
[2016-12-14 18:15] VITALS: BP 106/76; PULSE 79
[2016-12-14] MEDS ORDERED: NURSING VERBAL MED ORDER ONE (18:15)
[2016-12-14] MEDS ORDERED: ACETAMINOPHEN IV 650 MG / 65ML IV ONE (18:30)
[2016-12-14] MEDS ORDERED: ACETAMINOPHEN IV 650 MG / 65ML IV PRN (18:30)
[2016-12-14] MEDS: CEFTRIAXONE SOD INJ 2,000 MG in DEXTROSE 5% 50ML 50 ML IV SCH (20:30)
[2016-12-14] MEDS: ATORVASTATIN 40 MG TAB PO SCH (20:35)
[2016-12-14] MEDS: INSULIN GLARGINE SOLOSTAR 100 UNITS/ML 3 ML PEN SC SCH (20:38)
[2016-12-14 20:41] VITALS: BP 98/57; PULSE 53
[2016-12-14] MEDS ORDERED: HALOPERIDOL LACTATE 5 MG/ML 1 ML VIAL IV STA (21:19)
[2016-12-14] MEDS: METOPROLOL TARTRATE 1 MG/ML VIAL IV. SCH (21:35)
[2016-12-14 23:43] VITALS: BP 100/70; PULSE 82; TEMP 37; O2SAT 97
[2016-12-15] MEDS: LORAZEPAM INJ 1 MG in SYRINGE 0.5 ML IV PRN ×2 (00:10→21:57)
[2016-12-15] MEDS: GABAPENTIN 300 MG CAP PO SCH ×2 (05:48→14:42)
[2016-12-15] MEDS: METOPROLOL TARTRATE 1 MG/ML VIAL IV. SCH ×2 (05:50→14:41)
[2016-12-15 07:14] VITALS: PULSE 100; TEMP 36.9; O2SAT 99
[2016-12-15 07:25] LABS: BASO % 0.3 %; BASO ABS # 0.03 K/uL (0-0.2); COMPLETE YES; EOS % 1.7 %; HEMATOCRIT 39.9 % (42-52); IG% 0.9 %; LYMPH % 19.5 %; LYMPH ABS # 1.72 K/uL (1.2-3.4); MEAN CELL VOLUME 90.5 fL (80-100); MEAN CORPUSCULAR HEMOGLOBIN 27.7 pg (25-34); MEAN CORPUSCULAR HGB CONC 30.6 g/dl (32-36); MEAN PLATELET VOLUME 9.5 fL (7.4-10.4); MONO % 11.1 %; NEUT % 66.5 %; PLATELET COUNT 241 K/uL (130-400); RED BLOOD COUNT 4.41 M/uL (4.7-6.1); WHITE BLOOD COUNT 8.84 K/uL (4.8-10.8)
[2016-12-15] MEDS: BOOST GLUCOSE CONTROL PO SCH ×2 (08:00→12:31)
[2016-12-15 08:05] LABS: ALB/GLOB RATIO 0.7 (0.9-2); BUN/CREATININE RATIO 3.7 (10-20); CALCIUM 9.9 mg/dl (8.5-10.1); CREATININE 4.4 mg/dl (0.60-1.40); POTASSIUM 3.1 mmol/L (3.5-5.1)
[2016-12-15 08:30] VITALS: O2SAT 99
[2016-12-15] MEDS: INSULIN ASPART 100 UNITS/ML 3 ML PEN SC SCH ×2 (08:54→12:32)
[2016-12-15 08:56] VITALS: BP 110/68; PULSE 90
[2016-12-15] MEDS: DEXAMETHASONE 1 MG TAB PO SCH (10:11)
[2016-12-15] MEDS: PANTOprazole SOD 40 MG TAB PO SCH (10:12)
[2016-12-15] MEDS: SERTRALINE HCL 50 MG TAB PO SCH (10:12)
[2016-12-15] MEDS: ASPIRIN 81 MG ECTAB PO SCH (10:12)
[2016-12-15] MEDS: FLUTICASONE/SALMETEROL 250/50 (ADVAIR) 14 PUFF/1 INHALER INH SCH (10:13)
[2016-12-15] MEDS: OXYCODONE HCL 40 MG TABCR (OXYCONTIN) PO SCH (10:18)
[2016-12-15] MEDS: LORAZEPAM 0.5 MG TAB PO SCH ×2 (10:19→14:41)
[2016-12-15] MEDS: CHOLECALCIFEROL 1000 INTER.UNIT TAB PO SCH (10:20)
[2016-12-15] MEDS: DOCUSATE SODIUM/SENNA 50/8.6MG TAB PO SCH (10:20)
[2016-12-15] MEDS: LACTOBACILLUS ACIDOPHILUS (FLORANEX) TAB PO SCH ×2 (10:20→14:41)
[2016-12-15] MEDS: CALCIUM ACETATE 667MG GELCAP PO SCH ×2 (10:20→12:31)
[2016-12-15] MEDS: FERROUS SULFATE 325 MG TAB PO SCH (10:20)
[2016-12-15] MEDS: LACTULOSE SYRUP 30 GM/45 ML UDP PO SCH ×2 (10:20→14:41)
[2016-12-15] MEDS: POLYETHYLENE (MIRALAX) 17 GM PACK PO SCH (10:20)
[2016-12-15] MEDS: LORATADINE 10 MG TAB PO SCH (10:20)
[2016-12-15] MEDS: DOCUSATE SODIUM 100 MG CAP PO SCH (10:20)
[2016-12-15] MEDS ORDERED: POTASSIUM CHLORIDE 10 MEQ TABCR PO STA (12:01)
--- NOTE | 2016-12-15 12:09 | Progress Note ---
Subjective Date of Service: Dec 15, 2016. Subjective Pt evaluation today including: conversation w/ patient, physical exam, chart review, lab review, review of studies, review of inpatient medication list Pt noted to be yelling in bed Still agitated Pt on/off refusing meds still Problem List Medical Problems: (1) Altered mental status Status: Acute (2) Change in mental status Status: Acute (3) Diabetes mellitus out of control Status: Acute (4) Elevated troponin Status: Acute (5) Elevated troponin Status: Acute (6) Elevated troponin Status: Acute (7) End stage renal failure on dialysis Status: Acute (8) Failure of outpatient treatment Status: Acute (9) Hyperkalemia Status: Acute (10) Hypocalcemia Status: Acute (11) Hypoglycemia Status: Acute (12) Hypokalemia Status: Acute (13) Hyponatremia Status: Acute (14) Hypotension Status: Acute (15) Hypothermia Status: Acute (16) Leukocytosis Status: Acute (17) Mass of spine Status: Acute (18) Opiate overdose Status: Acute (19) Renal failure Status: Acute (20) Renal insufficiency Status: Acute (21) Sepsis Status: Acute (22) Ulcer of toe Status: Acute (23) Ulcers of both lower extremities Status: Acute (24) UTI (urinary tract infection) Status: Acute (25) UTI (urinary tract infection) Status: Acute (26) UTI (urinary tract infection) Status: Acute Review of Systems Unable to obtain due to dementia Objective Vital Signs Date Time Temp Pulse Resp B/P (MAP) Pulse Ox O2 Delivery O2 Flow Rate FiO2 12/15/16 08:56 90 18 110/68 (82) 12/15/16 08:30 99 Room Air 12/15/16 07:14 36.9 100 18 99 Room Air 12/15/16 05:50 117/60 12/15/16 00:00 Room Air 12/14/16 23:43 37.0 82 18 100/70 (80) 97 Room Air 12/14/16 20:53 Room Air 12/14/16 20:41 53 98/57 (71) 12/14/16 18:15 79 106/76 (86) 12/14/16 16:00 Room Air 12/14/16 15:45 36.8 94 16 101/70 (80) 97 Room Air Physical Exam General Appearance: WD/WN, + mild distress Eyes: normal inspection, PERRL, EOMI, sclerae normal Neck: supple, no adenopathy, thyroid normal, no JVD Respiratory/Chest: chest non-tender, lungs clear, normal breath sounds, no respiratory distress Cardiovascular: regular rate, rhythm, no gallop, no JVD, no murmur Abdomen: normal bowel sounds, soft, no organomegaly, no pulsatile mass Neurologic/Psychiatric: no motor/sensory deficits, alert, normal mood/affect, + disoriented Laboratory Results Last 24 Hours Test 12/14/16 16:29 12/14/16 20:10 12/15/16 06:32 12/15/16 07:29 Bedside Glucose 165 mg/dl 125 mg/dl 131 mg/dl White Blood Count 8.84 K/uL Red Blood Count 4.41 M/uL Hemoglobin 12.2 g/dL Hematocrit 39.9 % Mean Corpuscular Volume 90.5 fL Mean Corpuscular Hemoglobin 27.7 pg Mean Corpuscular Hemoglobin Concent 30.6 g/dl Platelet Count 241 K/uL Mean Platelet Volume 9.5 fL Neutrophils (%) (Auto) 66.5 % Lymphocytes (%) (Auto) 19.5 % Monocytes (%) (Auto) 11.1 % Eosinophils (%) (Auto) 1.7 % Basophils (%) (Auto) 0.3 % Neutrophils # (Auto) 5.88 K/uL Lymphocytes # (Auto) 1.72 K/uL Monocytes # (Auto) 0.98 K/uL Eosinophils # (Auto) 0.15 K/uL Basophils # (Auto) 0.03 K/uL RDW Standard Deviation 49.0 fL RDW Coefficient of Variation 14.8 % Immature Granulocyte % (Auto) 0.9 % Immature Granulocyte # (Auto) 0.08 K/uL Nucleated RBC Absolute Count (auto) 0.03 K/uL Nucleated Red Blood Cells % 0.3 % Sodium Level 138 mmol/L Potassium Level 3.1 mmol/L Chloride Level 98 mmol/L Carbon Dioxide Level 28 mmol/L Anion Gap 12.0 mmol/L Blood Urea Nitrogen 16 mg/dl Creatinine 4.40 mg/dl Est Creatinine Clear Calc Drug Dose 16.1 ml/min Estimated GFR () 16.1 Estimated GFR (Non- 13.9 BUN/Creatinine Ratio 3.7 Random Glucose 132 mg/dl Calcium Level 9.9 mg/dl Total Bilirubin 0.4 mg/dl Aspartate Amino Transf (AST/SGOT) 13 U/L Alanine Aminotransferase (ALT/SGPT) 9 U/L Alkaline Phosphatase 109 U/L Total Protein 7.9 gm/dl Albumin 3.3 gm/dl Globulin 4.6 gm/dl Albumin/Globulin Ratio 0.7 Test 12/15/16 09:42 12/15/16 11:30 Ammonia < 10.0 umol/L Bedside Glucose 134 mg/dl Assessment and Plan Bacteremia, suspected from TDC, with underlying encephalopathy Likely source from dialysis catheter Dr Monk consulted, blood cx pos for enterobacter cloaca, repeat blood cx NGTD on 12/09 Cont zosyn and vanc, appreciate ID recs on length of antibx No leukocytosis or fevers noted Family meeting with CHRISTIN Mora (mom) and sister Carlotta and Chela from palliative care. CHRISTIN does not want to consider hospice at this time, would like to go ahead with TDC exchange and continuation with antibiotics Vascular surgery off at this time, will consult Dr Bermudez on saturday 12/16 for line exchange Poor prognosis Diffuse cardiomyopathy presumed ischemic in nature with severe systolic CHF with known EF to be 15% Stable at this time Pt refuses meds on/off Convert lopressor PO to IV Pt takes ASA but usually refuses statin ESRD on HD Dialysis [facility] consulted Will hopefully undergo line exchange early next week Will consult Dr Bermudez who is away at this time, family updated PAD Hx of chronic osteoomyleitis Dispo: Back to [facility] after line exchange and antibx length procured Continued [facility] stay due to: multiple IV medications needed, other (ongoing acute care) Discharge planning: intermediate facility
[2016-12-15] MEDS: POTASSIUM CHLR 10 MEQ / WTR 10 MEQ in PREMIXED WATER 100 ML IV SCH ×2 (13:10→14:45)
[2016-12-15] MEDS: HYDROmorphone INJ 2 MG/ML SYR/VIAL IV PRN (15:53)
[2016-12-15] MEDS ORDERED: SCOPOLAMINE 1.5 MG TDSY TD SCH (16:00)
[2016-12-15] MEDS ORDERED: NURSING VERBAL MED ORDER ONE (16:30)
[2016-12-15] MEDS: CHECK SCOPOLAMINE PATCH PLACEMENT SCH (23:41)
[2016-12-16] MEDS: ATROPINE SULFATE 1% OP SOLN 5 ML BTL PO SCH ×4 (00:33→12:18)
[2016-12-16] MEDS: MoRPHine SULFATE 4 MG/ML 1 ML CARP\\VIAL IV PRN ×3 (02:20→14:54)
[2016-12-16] MEDS: CHECK SCOPOLAMINE PATCH PLACEMENT SCH (08:38)
--- NOTE | 2016-12-16 13:48 | Progress Note ---
Subjective Date of Service: Dec 16, 2016. Subjective Pt evaluation today including: conversation w/ family, chart review, lab review , review of studies, conversation w/ automotive internet sales consultant, review of inpatient medication list Nurse reported patient occasional moaning, most on the time has been comfortable , sister in the bedside, Patient is unconscious with obvious labored breathing, and wheezing audible, Review of system not be able to obtained Problem List Medical Problems: (1) Altered mental status Status: Acute (2) Change in mental status Status: Acute (3) Diabetes mellitus out of control Status: Acute (4) Elevated troponin Status: Acute (5) Elevated troponin Status: Acute (6) Elevated troponin Status: Acute (7) End stage renal failure on dialysis Status: Acute (8) Failure of outpatient treatment Status: Acute (9) Hyperkalemia Status: Acute (10) Hypocalcemia Status: Acute (11) Hypoglycemia Status: Acute (12) Hypokalemia Status: Acute (13) Hyponatremia Status: Acute (14) Hypotension Status: Acute (15) Hypothermia Status: Acute (16) Leukocytosis Status: Acute (17) Mass of spine Status: Acute (18) Opiate overdose Status: Acute (19) Renal failure Status: Acute (20) Renal insufficiency Status: Acute (21) Sepsis Status: Acute (22) Ulcer of toe Status: Acute (23) Ulcers of both lower extremities Status: Acute (24) UTI (urinary tract infection) Status: Acute (25) UTI (urinary tract infection) Status: Acute (26) UTI (urinary tract infection) Status: Acute Review of Systems Constitutional: + problem reported (not able to obtain system review) Objective Vital Signs Date Time Temp Pulse Resp B/P (MAP) Pulse Ox O2 Delivery O2 Flow Rate FiO2 12/16/16 08:00 Room Air 12/16/16 00:00 Room Air 12/15/16 16:20 Room Air Physical Exam General Appearance: + pertinent finding (labored breathing, or is sick and ill looking, warty frail,, ) Respiratory/Chest: + decreased breath sounds, + rales, + rhonchi, + wheezing Cardiovascular: + tachycardia Abdomen: soft Extremities: + pertinent finding (yamilet lower ext AKA) Neurologic/Psychiatric: + pertinent finding (unconscious possible in deep sleep ) Skin: no rash, + pertinent finding (warm) Assessment and Plan (1) Bacteremia associated with intravascular line (2) Delirium (3) Coronary artery disease (4) Obesity (5) End-stage renal disease on hemodialysis (6) PAD (peripheral artery disease) Assessment & Plan: 56-year-old white male admitted on 12/07/2016 with altered mental status // ?encephalopathy, fecal impaction, with hx of severe PVD, DM ESRD on HD, and copd later pt was found has Bacteremia, suspected from TDC, with underlying encephalopathy Likely source from dialysis catheter Dr Monk consulted, blood cx pos for enterobacter cloaca, repeat blood cx NGTD on 12/09 was on zosyn and vanc, appreciate ID recs on length of antibx Diffuse cardiomyopathy presumed ischemic in nature with severe systolic CHF with known EF to be 15% ESRD on HD was on Dialysis [facility] was consulted PAD with Hx of chronic osteoomyleitis on 12/15/2016: Family discussion on 12/15 with mom (óscar) POA and nurse advocate as well as sister. POA has decided to make pt comfort measures at this time has stop dialysis, cancelled vascular surgery consult for TDC line exchange I feel patient is active dying, possible or diet during this hospitalization Continue current care, comfort medicine only Discussed with patient's sister, answer the questions, updated her care plan Continued [facility] stay due to: multiple IV medications needed, other (ongoing acute care) Discharge planning: fdc facility
--- NOTE | 2016-12-16 14:36 | Palliative Care Progress Note ---
Palliative Care Progress Note Date of Service Dec 16, 2016. Subjective Pt evaluation today including: conversation w/ family (sister, Kriss Daniels), physical exam, review of inpatient medication list Pain: unable to assess. no signs of pain PO Intake: none Voiding: blair catheter in place -Patient was placed on VACUUM TESTER CANS last evening. -He is now obtunded, no response to verbal or tactile stimuli. -Danilo-Aguilar respirations while I was in room. -Sister, Kriss Daniels, in room. She had some questions which I answered. Support given. Review of Systems unable to obtain ROS- patient obtunded Objective Vital Signs Date Time Temp Pulse Resp B/P (MAP) Pulse Ox O2 Delivery O2 Flow Rate FiO2 12/16/16 08:00 Room Air 12/16/16 00:00 Room Air 12/15/16 16:20 Room Air Physical Exam General Appearance: no apparent distress, + pertinent finding (chronically ill appearing) Neck: no JVD Respiratory/Chest: no respiratory distress, no accessory muscle use, + pertinent finding (Danilo-aguilar breathing. Some mild secretions in throat.) Cardiovascular: regular rate, rhythm Extremities: + pertinent finding (BL AKA) Neurologic/Psychiatric: + pertinent finding (obtunded/unresponsive) Skin: + pallor Assessment and Plan Problem list: AMS/Delirium- encephalopathy r/t infection- improved. patient back to baseline today GNR bacteremia- repeat blood cultures negative Abdominal pain, lower Back pain ESRD on HD Chronic Blair catheter CHF- EF 15-20% Depression Left hand with edema, erythema and scab/wound on first finger knuckle Goals of care (Z51.5) Palliative care recommendations: -Patient's condition has worsened drastically in the last few days. There was a meeting held between the patient's mother, president & founder, and sister, last evening. The decision was made to place patient on comfort measures only, Dr. Palacios was aware and also met with family. -Patient was having agitation and delirium, he was given one dose of hydromorphone and became comfortable. He is now obtunded with Danilo-Aguilar breathing. -I met with daughter, Kriss, today. She is please patient is comfortable. Her mother, Abby Daniels, is coming in later today. Brother, Antonio Daniels, is flying up from [place] on Friday. -I did inform Kriss that patient could pass in hours to days, and may be before Friday. She verbalized understanding. -We discussed GIP hospice, which family would be agreeable to if necessary. However, I see no qualifying factors for GIP as his symptoms are controlled and he is not requiring frequent IV doses of pain meds. -Patient is not stable for transfer. Will likely pass away very soon. -Continue all current medications. -Turn off defibrillator. Thank you for allowing me to care for this patient. Please contact me with any further palliative care needs. Update 1500: Patient has more secretions, increased work of breathing. Increase frequency of atropine and morphine to Q1h PRN. If frequent PRN doses needed, nursing can call attending to have continuous infusion started. I met with patient's sister, , and RN advocate Chelesy Pulliam in room 401. Questions answered. No concerns. Palliative Performance Scale: 10 % Continued [facility] stay due to: multiple IV medications needed, home environment unsafe for pt, other (unstable for discharge)
[2016-12-16] MEDS ORDERED: NURSING VERBAL MED ORDER ONE (15:15)
[2016-12-16] MEDS ORDERED: MoRPHine SULFATE 4 MG/ML 1 ML CARP\\VIAL IV PRN (15:15)
[2016-12-16] MEDS ORDERED: ATROPINE SULFATE 1% OP SOLN 5 ML BTL SL PRN (15:15)
--- NOTE | 2016-12-16 16:05 | Death Summary ---
Summary of Admission Date Dec 07, 2016 at 10:09 Date & Time of Dec 16, 2016. 1526 Cause of Bacteremia, suspected from TDC, with underlying encephalopathy Diffuse cardiomyopathy presumed ischemic in nature with severe systolic CHF with known EF to be 15% ESRD on HD Hospital Course 56-year-old white male admitted on 12/07/2016 with altered mental status // ? encephalopathy, fecal impaction, with hx of severe PVD, DM ESRD on HD, and copd later pt was found has Bacteremia, suspected from TDC, with underlying encephalopathy Likely source from dialysis catheter Dr Monk consulted, blood cx pos for enterobacter cloaca, repeat blood cx NGTD on 12/09 was on zosyn and vanc, which was DC'ed after change care goal to [employer] Diffuse cardiomyopathy presumed ischemic in nature with severe systolic CHF with known EF to be 15% ESRD on HD was on Dialysis [facility] was consulted PAD with Hx of chronic osteoomyleitis on 12/15/2016: Family discussion on 12/15 with mom (óscar) POA and nurse advocate as well as sister. POA has decided to make pt comfort measures at this time has stop dialysis, cancelled vascular surgery consult for TDC line exchange this am I felt patient is active dying, possible or diet during this hospitalization in ht is p, i was notified pt is , I exam and pronounced family request no autopsy Copy To Delmi Avila
== END 2016-12-16 17:00 | disposition expired | DRG 314 ==
LOC: EDBD 21:14 → C.EDC 21:17 → UNDOADMOB 12-07 00:50 → C.MS2W 12-07 00:50 → ENRESERV 12-07 01:10 → OBSVTOIN 12-07 10:09 → ENRESERV 12-08 00:45 → C.2T 12-08 01:15 → ENRESERV 12-08 17:47 → C.2E 12-08 18:40 → ENRESERV 12-12 13:08 → C.MS2W 12-12 13:46 → C.4E 12-14 22:22
PROVIDERS: ADMIT Family Medicine; ATTEND Hospitalist
DX: T82.7XXA Infection and inflammatory reaction due to other cardiac and vascular devices, implants and grafts, initial encounter (principal); N18.6 End stage renal disease; G93.40 Encephalopathy, unspecified; R78.81 Bacteremia; I50.22 Chronic systolic (congestive) heart failure; I13.2 Hypertensive heart and chronic kidney disease with heart failure and with stage 5 chronic kidney disease, or end stage renal disease; Z51.5 Encounter for palliative care; B96.89 Other specified bacterial agents as the cause of diseases classified elsewhere; K56.41 Fecal impaction; I25.10 Atherosclerotic heart disease of native coronary artery without angina pectoris; E11.51 Type 2 diabetes mellitus with diabetic peripheral angiopathy without gangrene; E78.5 Hyperlipidemia, unspecified; I25.5 Ischemic cardiomyopathy; D64.9 Anemia, unspecified; G89.29 Other chronic pain; J44.9 Chronic obstructive pulmonary disease, unspecified; Z79.899 Other long term (current) drug therapy; Z79.4 Long term (current) use of insulin; Z79.82 Long term (current) use of aspirin; Z79.891 Long term (current) use of opiate analgesic; Z79.52 Long term (current) use of systemic steroids; Z66 Do not resuscitate; Z95.810 Presence of automatic (implantable) cardiac defibrillator; Z99.2 Dependence on renal dialysis; Z89.611 Acquired absence of right leg above knee; Z89.612 Acquired absence of left leg above knee; Z87.891 Personal history of nicotine dependence; Z82.49 Family history of ischemic heart disease and other diseases of the circulatory system; E66.9 Obesity, unspecified; Z68.22 Body mass index [BMI] 22.0-22.9, adult; Y83.8 Other surgical procedures as the cause of abnormal reaction of the patient, or of later complication, without mention of misadventure at the time of the procedure